=== PATIENT | male | born 1960 | race Caucasian/White ===

== ENCOUNTER 2023-04-06 09:54 | Outpatient (REF) | payer MEDICAID, SELFPAY ==
[2023-04-06 11:33] LABS: Basophils Percent Auto 0.4 % (0-2); Eosinophils Percent Auto 1.7 % (0-4); Hematocrit 39.5 % (42.0-52.0); Hemoglobin 12.3 g/dl (14.0-18.0); Lymphocytes Absolute Auto 0.9 X10*3/uL (1.2-4.9); Lymphocytes Percent Auto 37.9 % (20-40); MANUAL DIFF FLAG SCAN; Mean Corpuscular HGB Conc 31.1 g/dl (31.0-36.0); Mean Corpuscular Hemoglobin 26.5 pg (27.0-33.0); Mean Corpuscular Volume 85.1 fL (80.0-98.0); Monocytes Absolute Auto 0.2 X10*3/uL (0.1-1.2); Monocytes Percent Auto 8.9 % (2-11); Neutrophils Absolute Auto 1.2 x10*3/uL (2.0-8.3); Neutrophils Percent Auto 51.1 % (45-73); Red Blood Count 4.64 X10*6/uL (4.60-5.80); Red Cell Distribution Width 15.9 % (11.0-16.0); SCAN SMEAR FLAG 1
[2023-04-06 11:34] LABS: Estimated Average Glucose 105 mg/dL; Hemoglobin A1c % 5.3 %; Platelet Count 30 X10*3/uL (160-400); White Blood Count 2.4 X10*3/uL (4.8-10.8)
[2023-04-06 11:56] LABS: Appearance Urine Clear; Color Urine Dark Yellow; Glucose Urine UA Negative (Negative); Leukocyte Esterase Urine Negative (Negative); Nitrite Urine Negative (Negative); Specific Gravity - Urine 1.025 (1.005-1.025); Urine Blood Negative (Negative); Urine Ketones Negative (Negative); Urine Protein Negative (Neg-Trace)
[2023-04-06 12:00] LABS: Bacteria Urine None Seen (None Seen); Hyaline Casts Urine 0-2 /LPF (0-2); RBC Urine 0-2 /HPF (0-2); Squamous Epithelial Cell Urine 0-2 /HPF (0-2); WBC Urine 0-5 /HPF (0-5)
[2023-04-06 12:00] LABS: SLIDE REVIEW VERIFIED
[2023-04-06 12:18] LABS: Alanine Aminotransferase 42 U/L (0-40); Albumin Level 3.4 g/dL (3.5-5.0); Alkaline Phosphatase 122 U/L (39-117); Anion Gap 17 (12-20); Aspartate Amino Transferase 53 U/L (5-37); Bilirubin Direct 0.6 mg/dL (0.0-0.5); Bilirubin Total 1.2 mg/dL (0.0-1.0); Blood Urea Nitrogen 12 mg/dL (9-16); Calcium 9.2 mg/dL (8.4-10.2); Carbon Dioxide 22 mmol/L (22-29); Chloride 109 mmol/L (96-108); Cholesterol 79 mg/dL; Estimated Glomerular Filt Rate > 60; Glucose Random 78 mg/dL (60-115); HDL Cholesterol 25 mg/dL; LDL Cholesterol Calculated 36 mg/dl; Potassium 5.2 mmol/L (3.3-5.1); Sodium 143 mmol/L (135-145); Total Protein 7.4 g/dL (6.5-8.0); Triglycerides 94 mg/dL
[2023-04-06 12:26] LABS: Prostate Specific Antigen 0.87 ng/mL (<0.05-4.0)
[2023-04-07 20:14] LABS: HCV Log PCR 5.33 Log IU/mL (NOT DETECTED); HepC Viral Load 212000 IU/mL (NOT DETECTED)
[2023-04-09 04:04] LABS: HBS Num1 8.77 mIU/mL (0-7.99)
[2023-04-09 04:50] LABS: HBS Num2 8.68 mIU/mL (0-7.99); HBS Num3 8.56 mIU/mL (0-7.99); HBc Num2 6.69 S/CO; HBc Num3 6.29 S/CO; Hepatitis B Core Antibody Reactive (Nonreactive); ~Hepatitis B Surface Antibody GRAYZONE (Nonreactive)
[2023-04-12 01:04] LABS: Hepatitis B Core Antibody IgM NON-REACTIVE (NON-REACTIVE)
== END 2023-04-06 09:55 | disposition home or self-care (01) ==
LOC: HO.HHCL 09:54
PROVIDERS: Visit Provider Nurse Practitioner Primary Care
DX: Z00.00 Encounter for general adult medical examination without abnormal findings (principal); Z12.5 Encounter for screening for malignant neoplasm of prostate; R32 Unspecified urinary incontinence; I10 Essential (primary) hypertension; B19.20 Unspecified viral hepatitis C without hepatic coma; Z13.1 Encounter for screening for diabetes mellitus
CPT/HCPCS: 36415; 80048; 80061; 80076; 81001; 83036; 84153; 85025; 86704; 86705; 86706; 87522

== ENCOUNTER 2023-04-13 13:00 | Outpatient (REF) | payer MEDICAID, SELFPAY ==
--- NOTE | ~2023-04-13 | US_ITS ---
EXAMINATION: US ABDOMEN COMPLETE CLINICAL INFORMATION: Thrombocytopenia. COMPARISON: None available. TECHNIQUE: Real-time imaging of the abdominal viscera. Technically limited study secondary to bowel gas. FINDINGS: PANCREAS: Pancreas largely destroyed by overlying bowel gas. ABDOMINAL AORTA: Utilized portions of the aorta are unremarkable, the midportion is not well visualized. INFERIOR VENA CAVA: Visualized portions are normal. LIVER: Normal. The liver is normal in size. The liver contour is normal. Parenchymal echogenicity is normal. No focal hepatic lesion. There is no intrahepatic biliary duct dilatation seen. GALLBLADDER: Nonspecific region of borderline focal wall thickening along the anterior aspect of the gallbladder wall measuring up to 4 mm. The gallbladder is physiologically distended without evidence of stones, sludge, polyps, or pericholecystic fluid. Sonographic Kellogg sign is negative. COMMON BILE DUCT: Normal in caliber measuring 0.4 cm in diameter. RIGHT KIDNEY: Simple appearing cystic focus in the right renal upper pole measuring up to 1.6 cm, which does not require follow-up. No hydronephrosis or renal calculi. The kidney measures 10.8 cm in maximum dimension. LEFT KIDNEY: Normal. No hydronephrosis. No renal calculi or focal parenchymal lesions. The kidney measures 12.0 cm in maximum dimension. SPLEEN: Enlarged The spleen measures 22.4 cm in maximum dimension. FREE FLUID: None. US/US abdomen complete IMPRESSION: 1. Nonspecific region of borderline focal wall thickening along the anterior aspect of the gallbladder wall measuring up to 4 mm. 2. Simple appearing cystic focus in the right renal upper pole measuring up to 1.6 cm, which does not require follow-up. 3. Enlarged spleen measuring up to 22.4 cm.
== END 2023-04-13 13:01 | disposition home or self-care (01) ==
LOC: HO.US 13:00
PROVIDERS: Visit Provider Nurse Practitioner Primary Care
DX: D69.6 Thrombocytopenia, unspecified (principal)
CPT/HCPCS: 76700

== ENCOUNTER → 2023-04-23 11:32 | Outpatient (BNV) | payer MEDICAID, SELFPAY | PROVIDERS: Referring Provider Nurse Practitioner Primary Care; Visit Provider Internal Medicine Medical Oncology | DX: D61.818 Other pancytopenia (principal) | CPT/HCPCS: 99204; 99213 ==

== ENCOUNTER 2023-05-28 10:11 | Outpatient (REF) | payer MEDICAID, SELFPAY ==
[2023-05-28 12:25] LABS: Iron 54 mcg/dL (45-160); Percent Iron Saturation 15 % (15-50); Total Iron Binding Capacity 363 mcg/dL (228-428); Unsaturated Iron Binding 309 ug/dL
[2023-05-28 12:47] LABS: Ferritin 17 ng/mL (20-250); TSH reflex Free T4 2.07 uIU/mL (0.32-4.0)
[2023-05-28 13:24] LABS: Folate 12.4 ng/mL (> or = 4.0); Vitamin B12 502 pg/mL (200-900)
[2023-05-28 14:36] LABS: Creatinine Urine 123.12 mg/dL; Microalbumin Urine < 5.0 mg/L
[2023-05-28 15:21] LABS: CT PCR NOT DETECTED (Not Detect.); NG PCR NOT DETECTED (Not Detect.)
[2023-05-29 04:46] LABS: Syphilis Screen Nonreactive (Nonreactive)
[2023-05-29 05:12] LABS: HBS Num1 3.48 mIU/mL (0-7.99); HBsAGNum1 0.42 S/CO (0.00-0.99); Hepatitis B Surface Antigen Negative (Negative); ~Hepatitis B Surface Antibody NONREACTIVE (Nonreactive)
[2023-05-29 05:14] LABS: Hepatitis A Antibody IgG REACTIVE (Nonreactive); ~Hepatitis A Antibody IgG 8.48 S/CO (0.00-0.99)
[2023-05-30 16:29] LABS: TS Negative Control Passed; TS Panel A 0; TS Panel B 0; TS Positive Control Passed; TSpotTB Negative (Negative)
[2023-06-01 14:09] LABS: Hepatitis C Genotype 1a
[2023-06-02 11:52] LABS: VITAMIN D (1,25 OH) D3 54 pg/mL; Vit D (1,25-Dihydroxy) Total 54 pg/mL (18-72); Vitamin D (1,25 OH) D2 <8 pg/mL
[2023-06-02 16:19] LABS: FIB-ALT 31 U/L (9-46); FIB-Alpha-2-Macroglobulin 255 mg/dL (106-279); FIB-Apolipoprotein A1 123 mg/dL (94-176); FIB-GGT 104 U/L (3-70); FIB-Haptoglobin 56 mg/dL (43-212); FIB-Total Bilirubin 0.6 mg/dL (0.2-1.2); Liver Fibrosis Score 0.73; Liver Fibrosis Stage F3-F4; Nec Inflam Act Grade A0-A1; Nec Inflam Act Score 0.26
== END 2023-05-28 10:12 | disposition home or self-care (01) ==
LOC: HO.HHCL 10:11
PROVIDERS: Visit Provider Student in an Organized Health Care Education/Training Program
DX: Z00.00 Encounter for general adult medical examination without abnormal findings (principal); Z11.1 Encounter for screening for respiratory tuberculosis
CPT/HCPCS: 0353U; 81596; 82043; 82570; 82607; 82652; 82728; 82746; 83540; 84443; 86481; 86706; 86708; 86780; 87340; 87902

== ENCOUNTER 2023-06-04 14:07 | Outpatient (AMB) | payer MEDICAID, SELFPAY ==
[2023-06-04 14:24] VITALS: BP 147/64; PULSE 75; BMI 33.6
--- NOTE | 2023-06-04 14:24 | A.OFFVIS_ITS ---
Intake Vital Signs 06/04/23 14:24 Height 5 ft 11 in Weight 240 lb 11.916 oz BMI 33.6 BP 147/64 H Blood Pressure Location Lt brachial Position Sitting Pulse 75 Intake Visit Reasons: Hep C Intake Note: Patient presents to in office visit today as a new patient for Hep C. CC: Patient c/o RUQ abdominal pain. Patient reports an episode of heamatemesis earlier this year after taking a Motrin. Patient reports he moved about 4 months ago from [place]. Denies other GI symptoms. 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 Seen with translator and interpreter. Pt was being seen by Teresita for pancytopenia and work up revealed chronic liver disease secondary to chronic HCV genotype 1a with occult HBV and HIV negative status. He has also undergone US Abd which does not show any focal masses. Interestingly reported as normal liver despite fibrosure with F3-4 fibrosis, thrombocytopenia and splenomegaly. Pt does not report any IVDU but does report years of unprotected sexual intercourse > 15 years ago in [place]. No fam hx of liver disease. Also noted on labs is iron deficiency anemia with ferritin of 17. Pt reports having a colonoscopy 4 months ago at [facility] in [place]. Was told it was normal but does not recall the recall interval. US Abd 04/2023: 1. Nonspecific region of borderline foc al wall thickening along the anterior aspect of the gallbladder wall measuring up to 4 mm. 2. Simple appearing cystic focus in the right renal upper pole measuring up to 1.6 cm, which does not require follow-up. 3. Enlarged spleen measuring up to 22.4 cm. [facility] Medical History HBP (high blood pressure) Surgical History H/O left inguinal hernia repair H/O eye surgery History of esophagogastroduodenoscopy (EGD) H/O colonoscopy Family History Maternal Grandmother Breast CA Uterus cancer Mother Primary lung cancer of unknown cell type Social History Household Members: Family Housing: Apartment Patient Tobacco Use Status: Former Tobacco user Tobacco use type: Cigarette service: No Current occupational status: retired Review of Systems Const All systems reviewed & are unremarkable except as noted in HPI and below Physical Exam Vital Signs: Last Vital Signs Pulse 75 06/04/23 14:24 BP 147/64 H 06/04/23 14:24 BMI result Body Mass Index 33.6 Gen appear: NAD HEENT: nonicteric, no cervical lymphadenopathy Chest: CTA CVS: Regular S1/S2 Abd: soft, nontender, nondistended, bowel sounds + Ext: no peripheral edema Neuro: A/Ox3, noted to move all extremities spontaneously Psych: interacting appropriately Assessment & Plan Assessment & Plan (1) Hepatitis C virus infection: Code(s): B19.20 - Unspecified viral hepatitis C without hepatic coma (2) Hepatitis B core antibody positive: Code(s): R76.8 - Other specified abnormal immunological findings in serum (3) Thickening of wall of gallbladder: Code(s): K82.8 - Other specified diseases of gallbladder (4) Cirrhosis: Code(s): K74.60 - Unspecified cirrhosis of liver (5) Iron deficiency anemia: Code(s): D50.9 - Iron deficiency anemia, unspecified Plan 1. Chronic HCV genotype 1a Treatment naiive HBV core Ab pos, HBV surface Ag negative Appears to have cirrhosis 2/2 chronic HCV with high likelihood of CSPH based on thrombocytopenia and splenomegaly. Will need treatment with mavyret x8w vs epclusa x12w vs harvoni x 12w. He will need close monitoring of LFTs on this due to HBV core Ab + status. This will be initiated after he has had an upper endoscopy for variceal surveillance 2. ANIRUDH Noted on labs. Will obtain colo records from [facility] to ascertain that it was a complete adequately prepped colo. If needs to be repeated, will perform it at the same time as EGD (see above). 3. Focal GB thickening Incidental finding on US done for HCV. Pt without any s/sx of biliary colic. LFTs are abnormal but has chronic HCV. Ddx include GB ca vs adenomyomatosis. Will get contrasted CT Abd/pel to investigate this further. Follow up after procedures. Orders: Orders CT abdomen pelvis w IV con Today K82.8 - Other specified diseases of gallbladder Coding Level of Care Code New Pt Level 4 (80178) Diagnoses Hepatitis C virus infection B19.20 Hepatitis B core antibody positive R76.8 Thickening of wall of gallbladder K82.8 Cirrhosis K74.60 Iron deficiency anemia D50.9
== END 2023-06-04 15:09 | disposition home or self-care (01) ==
PROVIDERS: Visit Provider Internal Medicine
DX: B19.20 Unspecified viral hepatitis C without hepatic coma (principal); R76.8 Other specified abnormal immunological findings in serum; K82.8 Other specified diseases of gallbladder; K74.60 Unspecified cirrhosis of liver; D50.9 Iron deficiency anemia, unspecified
CPT/HCPCS: 99204

== ENCOUNTER → 2023-06-04 14:07 | Outpatient (BNVA) | payer MEDICAID, SELFPAY | PROVIDERS: Visit Provider Internal Medicine ==

== ENCOUNTER 2023-07-19 11:10 | Outpatient (REF) | payer MEDICAID, SELFPAY ==
--- NOTE | ~2023-07-19 | CT_ITS ---
EXAMINATION: CT ABDOMEN AND PELVIS WITH CONTRAST CLINICAL INFORMATION: Gallbladder disease COMPARISON: None available. TECHNIQUE: Multidetector volumetric images were obtained from the superior aspect of the liver through the pubic symphysis following administration 85 mL of Omnipaque 350 intravenous contrast. Sagittal and coronal reformatted images were obtained on the technologist's workstation. Oral contrast: No This CT examination was performed using dose optimization techniques as appropriate, variously including the following: *Automated exposure control *Adjustment of mA and/or kV according to patient size (this includes techniques or standardized protocols for targeted exams where dose is matched to indication/reason for exam; i.e. extremities or head) *Use of iterative reconstruction technique DLP: 588 mGy-cm FINDINGS: LUNG BASES: The visualized lung bases are unremarkable. LIVER, GALLBLADDER, AND BILIARY TREE: The liver is small, nodular in contour with prominence of the left and caudate lobes indicating cirrhosis. The portal vein is prominent. There are also prominent collateral vessels about the distal esophagus, indicating varices. There is a recanalized paraumbilical vein. The gallbladder is unremarkable with no evidence of radiopaque gallstones, gallbladder wall thickening, or obvious pericholecystic inflammatory changes. PANCREAS: Unremarkable. SPLEEN: The spleen is considerably enlarged measuring 21 cm long x 17 cm AP. ADRENAL GLANDS: Unremarkable. KIDNEYS AND URETERS: There are several small bilateral low density renal lesions, perhaps cysts, though too small to characterize. No specific follow-up is needed. There are no renal calculi. No obstructive uropathy is evident. BLADDER: Unremarkable. GASTROINTESTINAL TRACT: Considerable sigmoid diverticulosis is present without diverticulitis. The small bowel is unremarkable. The appendix images normally. The distal esophagus and esophagogastric junction are thickened. ABDOMINAL WALL: No significant hernia LYMPH NODES: Mild upper abdominal adenopathy is evident. In the gastrohepatic ligament, a 17 x 11 mm node is evident. There is an adjacent round 14 mm peripancreatic node. There is also mild retroperitoneal infiltration, nonspecific. No pelvic sidewall adenopathy is evident. VASCULAR: Unremarkable. PELVIC VISCERA: Unremarkable. OSSEOUS STRUCTURES: Degenerative changes at L5-S1. No suspicious bone lesions. CT/CT abdomen pelvis w IV con IMPRESSION: 1. Nodular somewhat shrunken liver, with prominence of the left and caudate lobes consistent with cirrhosis. 2. Marked Splenomegaly, prominence of the portal vein, recanalized paraumbilical vein, and esophageal varices are consistent with portal hypertension. 3. Thickened esophagogastric junction. Correlation with direct visualization is advised. Esophagitis and neoplasm are within the differential diagnosis. 4. Mild nonspecific upper abdominal adenopathy. 5. Sigmoid diverticulosis without diverticulitis. Fleischner guidelines were followed.
[2023-07-19] MEDS: iohexoL 350 MG/ML 100 ML INFUS..BTL IV (11:51)
[2023-07-20 08:00] LABS: Creatinine POC 0.7 mg/dL (0.5-1.4); GFR POC > 60
== END 2023-07-19 11:11 | disposition home or self-care (01) ==
LOC: HO.CT 11:10
PROVIDERS: PCP Student in an Organized Health Care Education/Training Program; Visit Provider Internal Medicine
DX: K82.8 Other specified diseases of gallbladder (principal)
CPT/HCPCS: 74177; 82565; Q9967

== ENCOUNTER 2023-08-09 16:01 | Outpatient (REF) | payer MEDICAID, SELFPAY ==
--- NOTE | 2023-08-09 17:04 | PFT_ITS ---
Otherwise indication: Dyspnea Spirometry [FEV1 to FVC and 5%; FEV1 3.45 L 100% predicted; FVC 4.07 L or 100% predicted. A significant response to bronchodilators noted maximum voluntary ventilation 71% predicted] Lung Volumes [Total lung capacity 79% predicted with an expiratory reserve volume of 34% predicted] Diffusion Capacity [Diffusing capacity 57% predicted does correct to 115% predicted when corrected for the alveolar volume] Comparisons [None] Interpretation [No obstructive ventilatory defect. No significant response to bronchodilators noted. Mild decrease in the maximum voluntary ventilation secondary to likely condition. Lung volumes demonstrate a mild restrictive ventilatory defect. Also carries a low expiratory reserve volume secondary to an elevated BMI. The patient does have a moderate diffusion impairment. This does correct to 115% predicted with correction for the alveolar volume suggesting that is related to hypo expansion due to an elevated BMI. Clinical correlation warranted.] MTDD
== END 2023-08-09 16:02 | disposition home or self-care (01) ==
LOC: HO.RESP 16:01
PROVIDERS: PCP Student in an Organized Health Care Education/Training Program; Visit Provider Student in an Organized Health Care Education/Training Program
DX: R06.00 Dyspnea, unspecified (principal)
CPT/HCPCS: 94010; 94727; 94729

== ENCOUNTER 2023-10-03 14:12 | Outpatient (REF) | payer MEDICAID, SELFPAY ==
[2023-10-03 15:48] LABS: Basophils Percent Auto 0.4 % (0-2); Eosinophils Percent Auto 1.3 % (0-4); Hematocrit 38.5 % (42.0-52.0); Hemoglobin 12.2 g/dl (14.0-18.0); Lymphocytes Absolute Auto 0.6 X10*3/uL (1.2-4.9); Lymphocytes Percent Auto 26.9 % (20-40); MANUAL DIFF FLAG SCAN; Mean Corpuscular HGB Conc 31.7 g/dl (31.0-36.0); Mean Corpuscular Volume 88.5 fL (80.0-98.0); Mean Platelet Volume 14.6 fL (9.4-12.4); Monocytes Absolute Auto 0.2 X10*3/uL (0.1-1.2); Neutrophils Absolute Auto 1.5 x10*3/uL (2.0-8.3); Neutrophils Percent Auto 64.4 % (45-73); Red Blood Count 4.35 X10*6/uL (4.60-5.80); SCAN SMEAR FLAG 1
[2023-10-03 15:54] LABS: Platelet Count 30 X10*3/uL (160-400); White Blood Count 2.3 X10*3/uL (4.8-10.8)
[2023-10-03 16:13] LABS: Alanine Aminotransferase 31 U/L (0-40); Albumin Level 3.4 g/dL (3.5-5.0); Alkaline Phosphatase 148 U/L (39-117); Anion Gap 11 (12-20); Aspartate Amino Transferase 42 U/L (5-37); Bilirubin Total 0.7 mg/dL (0.0-1.0); Blood Urea Nitrogen 12 mg/dL (9-16); Calcium 9.2 mg/dL (8.4-10.2); Carbon Dioxide 26 mmol/L (22-29); Chloride 109 mmol/L (96-108); Estimated Glomerular Filt Rate > 60; Glucose Random 135 mg/dL (60-115); Potassium 4.8 mmol/L (3.3-5.1); Sodium 141 mmol/L (135-145); Total Protein 7.4 g/dL (6.5-8.0)
[2023-10-03 17:16] LABS: SLIDE REVIEW VERIFIED
== END 2023-10-03 14:13 | disposition home or self-care (01) ==
LOC: HO.LAB 14:12
PROVIDERS: PCP Student in an Organized Health Care Education/Training Program; Visit Provider Internal Medicine Medical Oncology
DX: D61.818 Other pancytopenia (principal); K74.60 Unspecified cirrhosis of liver; D50.9 Iron deficiency anemia, unspecified
CPT/HCPCS: 36415; 80053; 85025

== ENCOUNTER → 2023-10-04 09:48 | Day surgery (SDC) | payer MEDICAID, SELFPAY ==
[2023-10-02 14:13] VITALS: BMI 33.5
--- NOTE | 2023-10-04 09:55 | PC.NURSE ---
dr alejandre aware of platelets results no new orders
[2023-10-04 10:15] VITALS: BMI 32.9
--- NOTE | 2023-10-04 10:26 | HO.ANESPROP2 ---
HPI - Anesthesia Eval Consult details Narrative: for upper endo, plt 31 k, no biopsy per [facility]. [facility] Active Problems Active Problems: All Active Problems (Updated 10/02/23 @ 14:13 by Bhavana Abbasi RN) Iron deficiency anemia (Acute) Cirrhosis (Acute) Hepatitis B core antibody positive (Acute) Hepatitis C virus infection (Acute) Thickening of wall of gallbladder (Acute) Pancytopenia (Acute) Past Medical History Medical History Esophageal varices Pancytopenia Iron deficiency anemia Cirrhosis Hepatitis C HBP (high blood pressure) Family History Family History Maternal Grandmother Breast CA Uterus cancer Mother Primary lung cancer of unknown cell type Family history of problems with anesthesia: No Surgical History Surgical History H/O left inguinal hernia repair H/O eye surgery History of esophagogastroduodenoscopy (EGD) H/O colonoscopy History of Problems with Anesthesia: No Social History Social History Household Members: Family Housing: Apartment Patient Tobacco Use Status: Former Tobacco user Tobacco use type: Cigarette Advance Directives: No Advance Directives Information Provided: Yes service: No Current occupational status: retired Meds Allergies Allergy/AdvReac Type Severity Reaction Status Date / Time dicyclomine [From Bentyl] Allergy Severe Unknown Verified 06/04/23 14:33 aspirin AdvReac Severe stomach Verified 06/04/23 14:32 bleeding NSAIDS (Non-Steroidal AdvReac Severe liver Verified 06/04/23 14:32 Anti-Inflamma concerns Home Medications Medication Instructions Recorded Confirmed Last Taken Type amlodipine 5 mg tablet 5 mg PO QAM 06/04/23 10/02/23 10/04/23 History Exam Height,Weight and Vital Signs: Height 5 ft 11 in Weight 108.862 kg Pertinent Lab Results Pertinent Lab Results: Laboratory Tests 10/03/23 14:25 Blood Type O Negative Antibody Screen NEGATIVE Airway Mallampati Class: II TM Dist: <=3cm Heart: rrr Lungs: cta Assessment and Plan Assessment Anesthesia Assessment: Anesthesia Plan Discussed and Chart Reviewed Final Anesthetic Review Family History of Problems with Anesthesia: No History of Problems with Anesthesia: No NPO: Yes ASA Class: III Final Preanesthetic Review: No Changes in Pt Med Stat, Meds/Allgs Chart Reviewed, Consent Obtained/Reviewed and Anes Risks/Benef Reviewed Patient Risk: High Procedure Risk: Low Anesthetic Plan Anesthetic Plan: MAC: Disposition: Standard PACU
--- NOTE | 2023-10-04 10:26 | PC.NURSE ---
ANESTHESIA AND DR BLACK AWARE OD PLATELETS RESULTS
[2023-10-04 10:31] VITALS: BP 156/50; PULSE 74; RESP 18; TEMP 36.8; O2SAT 96
--- NOTE | 2023-10-04 10:38 | PC.NURSE ---
DR WAYNE CORLEY OR NURSE PATIENT GOING TO BE CANCELED WILL SPEAK TO PATIENT
--- NOTE | 2023-10-04 10:49 | PC.NURSE ---
PT BEING CANCELLED BY DR BLACK F/U WITH PCP PT AWARE DR BLACK AND INTERTERPREOR AT [facility] FAMILY MADE AWARE
== END ==
PROVIDERS: PCP Student in an Organized Health Care Education/Training Program; Visit Provider Internal Medicine Gastroenterology
DX: K74.60 Unspecified cirrhosis of liver (principal); Z53.8 Procedure and treatment not carried out for other reasons; D69.6 Thrombocytopenia, unspecified; D50.9 Iron deficiency anemia, unspecified
CPT/HCPCS: 86850; 86900; 86901

== ENCOUNTER 2023-10-12 12:00 | Emergency (ER) | payer MEDICAID, SELFPAY ==
--- NOTE | ~2023-10-12 | XR_ITS ---
EXAMINATION: XR CHEST CLINICAL INFORMATION: Cough and shortness of breath COMPARISON: None available. TECHNIQUE: Frontal view of the chest was obtained. FINDINGS: No significant abnormality is noted involving the heart, lungs, mediastinum, bony thorax or soft tissues. XR/XR chest 1V IMPRESSION: Unremarkable examination.
--- NOTE | ~2023-10-12 | CT_ITS ---
EXAMINATION: CT ABDOMEN AND PELVIS WITH CONTRAST CLINICAL INFORMATION: 62-year-old male with abdominal pain and hematuria COMPARISON: 07/19/2023 TECHNIQUE: Multidetector volumetric images were obtained from the superior aspect of the liver through the pubic symphysis following administration 85 mL of Omnipaque 350 intravenous contrast. Sagittal and coronal reformatted images were obtained on the technologist's workstation. Oral contrast: No This CT examination was performed using dose optimization techniques as appropriate, variously including the following: *Automated exposure control *Adjustment of mA and/or kV according to patient size (this includes techniques or standardized protocols for targeted exams where dose is matched to indication/reason for exam; i.e. extremities or head) *Use of iterative reconstruction technique DLP: 797 mGy-cm FINDINGS: LUNG BASES: The visualized lung bases are unremarkable. LIVER, GALLBLADDER, AND BILIARY TREE: Liver is mildly nodular with prominence of left lobe of the liver and caudate lobe. The gallbladder is unremarkable with no evidence of radiopaque gallstones, gallbladder wall thickening, or obvious pericholecystic inflammatory changes. There is mild ascites surrounding right lobe of the liver. PANCREAS: Unremarkable. SPLEEN: There is massive splenomegaly the spleen measured 21.6 cm. There is recannulization of umbilical vein and varicosity surrounding the gastroesophageal junction. Findings consistent with portal hypertension. ADRENAL GLANDS: Unremarkable. KIDNEYS AND URETERS: There is small cortical cyst unchanged since previous study in right kidney. There is no hydroureteronephrosis or nephrolithiasis. There is small cortical cyst in the left kidney. BLADDER: Unremarkable. GASTROINTESTINAL TRACT: There are ascending colon changes of diverticulosis without diverticulitis and there is mild diffuse ascites surrounding right flank. Normal appendix present ABDOMINAL WALL: There is small umbilical hernia is umbilical vein. LYMPH NODES: Normal. VASCULAR: Aorta is not dilated. PELVIC VISCERA: Unremarkable. OSSEOUS STRUCTURES: Mild degenerative changes in lower lumbar spine and straightening of lumbar lordosis. CT/CT abdomen pelvis w IV con IMPRESSION: 1. Cirrhotic liver with portal hypertension. 2. Mild ascites. 3. Diverticulosis without diverticulitis. Fleischner guidelines were followed.
--- NOTE | 2023-10-12 12:08 | ECG_ITS ---
Test Reason : CHEST PAIN Blood Pressure : / mmHG Vent. Rate : 077 BPM Atrial Rate : 077 BPM P-R Int : 130 ms QRS Dur : 076 ms QT Int : 374 ms P-R-T Axes : 027 014 052 degrees QTc Int : 423 ms Normal sinus rhythm Normal ECG No previous ECGs available Referred By: Generic ED Physician Electronically Signed By:POP DAVIES MD
--- NOTE | 2023-10-12 12:11 | ED_ITS ---
HPI - URI/Sore Throat General Chief Complaint: Chest Pain Stated Complaint: FLU LIKE SYMPTOMS CP Time Seen by Provider: 10/12/23 12:08 Source: RN notes reviewed and old records reviewed History of Present Illness HPI Narrative: 62-year-old Danish speaking male with a past medical history of HTN, cirrhosis, hepatitis-C, pancytopenia, presenting to the ED via EMS complaining of upper respiratory symptoms including dry cough, SOB, lightheadedness, & chest discomfort x 1 month. Also reports some abdominal pain and coughing fit yesterday followed by hematemesis, described as coughing, then vomited up dark colored blood/clots. Denies brbpr or melena, nausea/vomiting, fever, dysuria/hematuria. Denies taking anticoagulation Related Data Home Medications Medication Instructions Recorded Confirmed amlodipine 5 mg tablet 5 mg PO QAM 06/04/23 10/02/23 Previous Rx's Medication Instructions Recorded benzonatate 100 mg capsule 100 mg PO TID PRN cough #14 caps 10/12/23 prednisone 20 mg tablet 40 mg (2 x 20 mg) PO DAILY 5 days 10/12/23 #10 tabs Allergies Allergy/AdvReac Type Severity Reaction Status Date / Time dicyclomine [From Bentyl] Allergy Severe Unknown Verified 06/04/23 14:33 aspirin AdvReac Severe stomach Verified 06/04/23 14:32 bleeding NSAIDS (Non-Steroidal AdvReac Severe liver Verified 06/04/23 14:32 Anti-Inflamma concerns Review of Systems 2 Review of Systems: Constitutional: No Fever, +chills, +fatigue ENT/Mouth: No Ear Pain, No Nasal Congestion, No sore throat, No Rhinorrhea, No Swallowing Difficulty Cardiovascular: +Chest Pain, + SOB Respiratory: + Cough, No Sputum, No Wheezing Gastrointestinal: No Nausea, No Vomiting, No Diarrhea, No Constipation, +Abdominal pain, + hematemesis Genitourinary: No Dysuria, No Urinary Frequency, No Hematuria, No Flank Pain Musculoskeletal: No joint pain, No Myalgias, No Joint Swelling Skin: No Skin Lesions, No rash Neuro: + Weakness, No Numbness, No Paresthesias, +lightheadedness Yes all other systems are reviewed and are negative Constitutional: Constitutional: Reports as per [facility] Past Medical History Attestation statement: The following information was validated with the patient. Source: old records reviewed Medical History Esophageal varices Pancytopenia Iron deficiency anemia Cirrhosis Hepatitis C HBP (high blood pressure) Surgical History H/O left inguinal hernia repair H/O eye surgery History of esophagogastroduodenoscopy (EGD) H/O colonoscopy Family History Family History Maternal Grandmother Breast CA Uterus cancer Mother Primary lung cancer of unknown cell type Social History Social History Household Members: Family Housing: Apartment Patient Tobacco Use Status: Current everyday Tobacco user Tobacco use type: Cigarette Smoked in Last 30 Days: Yes Advance Directives: No Advance Directives Information Provided: Yes service: No Current occupational status: retired Physical Exam 2 Vital Signs: Vital Signs: Last Vital Signs Pulse 75 10/12/23 14:16 Resp 16 10/12/23 12:12 BP 156/74 H 10/12/23 14:16 Pulse Ox 99 10/12/23 12:12 O2 Del Method Room Air 10/12/23 12:12 BMI result Body Mass Index 32.2 Const: General: cooperative, healthy appearing and no acute distress O rientation/consciousness: patient oriented x3 Limitations: no limitations HEENT: Head: Yes normal to inspection and Yes atraumatic Ears: hearing grossly normal bilaterally General nose exam: Normal external nose present Face and sinus: Yes normal facial exam Eyes: General: appearance normal, both eyes and all related structures EOM: EOMs intact bilaterally Neck: Neck: Yes normal visual inspection and Yes no meningeal signs Resp: Effort & Inspection: normal respiratory effort and no respiratory distress Auscultation: clear to auscultation bilaterally and no wheezes Cardio: Rate: regular rate Heart sounds: S1 normal heart sound present and S2 normal heart sound present GI: Inspection: Yes normal to inspection Palpation (GI): Soft to palpation, Tenderness to palpation present (GI) in the epigastrum, in the RLQ, in the RUQ and with rebound tenderness, no guarding and not rigid : General: Yes no CVA tenderness Back/Spine/Pelvis: Back: no CVA tenderness Skin: Rashes: no rashes Wounds: no wounds Neuro: General: patient oriented x3, tone normal and no meningeal signs C ranial nerves: Yes CN's II-XII intact bilaterally Gait exam (Neuro): Normal gait present Extrem: General: Yes normal to inspection and Yes no pedal edema Course Course Course Narrative: -1413--chronic pancytopenia likely from cirrhosis. H&H at patient's baseline. Labs otherwise reassuring/at patient's baseline. Troponin WNL -occult stool negative -COVID and flu negative. 1440-XR chest 1V IMPRESSION: Unremarkable examination. CT abdomen pelvis w IV con IMPRESSION: 1. Cirrhotic liver with portal hypertension. 2. Mild ascites. 3. Diverticulosis without diverticulitis. Fleischner guidelines were followed. -Orthostatic vital signs negative >patient without any episodes of nausea/vomiting or hematemesis/hemoptysis in the ED. recommended close GI follow-up, patient likely needs EGD. Results discussed with patient and family at bedside with regional ehs manager. Patient feels comfortable with discharge at this time. Discussed worrisome signs and symptoms and strict return precautions, and needed close follow-up with Gastroenterology. Discussed when to return to the emergency department. They verbalized understanding and feel safe for discharge at this time. Medications Administered Discontinued Medications Generic Name Dose Route Start Last Admin Trade Name Freq PRN Reason Stop Dose Admin Iohexol 100 ml 10/12/23 14:15 10/12/23 14:15 Iohexol 350 Mg/Ml 100 Ml Infus..Btl IV 10/12/23 14:16 85 ml ONCE ONE Administration Medical Decision Making Medical Decision Making [facility] Narrative: 62-year-old Danish speaking male with a past medical history of HTN, cirrhosis, hepatitis-C, pancytopenia, presenting to the ED via EMS complaining of upper respiratory symptoms including dry cough, SOB, lightheadedness, & chest discomfort x1 month. Also reports some abdominal pain and coughing fit yesterday followed by hematemesis x1, described as coughing, then vomited up dark colored blood/clot. On exam vital signs stable, NAD, nontoxic appearing, lungs CTA, abdomen soft with epigastric/RUQ and RLQ tenderness, no rebound or guarding. Concern for viral syndrome vs bronchitis/pneumonia. Symptoms atypical for ACS/PE. Concern for GI bleed vs colitis/diverticulitis vs variceal bleeding vs cholecystitis/lithiasis. Low suspicion for Boerhaave's. Low suspicion for SBP Plan: EKG, labs, UA, CXR, CT AP, hold stool, re-evaluate Please refer to course for remaining clinical decision making, interpretation of labs/imaging results, and discussions with consultants and/or family members. Differential Diagnosis Differential Diagnoses: The differential diagnosis associated with the presentation includes As above Admission/Observation Consideration of admission/observation: Escalation of care including admission/observation considered Lab Data MDM Lab Attestation statement: I reviewed the patient's lab results. 10/12/23 12:54 10/12/23 12:54 Labs: Lab Results 10/12/23 10/12/23 10/12/23 Range/Units 12:54 13:05 14:20 WBC 2.3 L (4.8-10.8) X10*3/uL RBC 4.41 L (4.60-5.80) X10*6/uL Hgb 12.3 L (14.0-18.0) g/dl Hct 38.1 L (42.0-52.0) % MCV 86.4 (80.0-98.0) fL MCH 27.9 (27.0-33.0) pg MCHC 32.3 (31.0-36.0) g/dl RDW 13.9 (11.0-16.0) % Plt Count 34 L (160-400) X10*3/uL MPV 12.6 H (9.4-12.4) fL Immature Gran % (Auto) 0.0 (0.0-0.4) % Neut % (Auto) 57.5 (45-73) % Lymph % (Auto) 31.3 (20-40) % [place] % (Auto) 8.2 (2-11) % Eos % (Auto) 2.6 (0-4) % Baso % (Auto) 0.4 (0-2) % Lymph # (Auto) 0.7 L (1.2-4.9) X10*3/uL [place] # (Auto) 0.2 (0.1-1.2) X10*3/uL Eos # (Auto) 0.1 (0.0-0.4) X10*3/uL Baso # (Auto) 0.0 (0.0-0.2) X10*3/uL Abs Immat Gran (auto) 0.00 (0.00-0.03) X10*3/uL Absolute Neuts (auto) 1.3 L (2.0-8.3) x10*3/uL Absolute Nucleated RBC 0.000 (0.0-0.012) X10*3/uL Nucleated RBC % (auto) 0.0 (0.0-0.2) /100WBC Smear Tech's Comments VERIFIED PT 13.0 (11.1-13.3) SEC INR 1.1 (0.9-1.1) Sodium 143 (135-145) mmol/L Potassium 4.9 (3.3-5.1) mmol/L Chloride 110 H (96-108) mmol/L Carbon Dioxide 26 (22-29) mmol/L Anion Gap 12 (12-20) BUN 12 (9-16) mg/dL Creatinine 0.77 (0.5-1.4) mg/dL Estim Creat Clear Calc 124.0 Estimated GFR > 60 Random Glucose 100 (60-115) mg/dL Calcium 8.8 (8.4-10.2) mg/dL Magnesium 2.1 (1.6-2.6) mg/dL Total Bilirubin 0.8 (0.0-1.0) mg/dL Direct Bilirubin 0.5 (0.0-0.5) mg/dL AST 47 H (5-37) U/L ALT 31 (0-40) U/L Alkaline Phosphatase 151 H (39-117) U/L Troponin I High Sens 3.8 (<3.5-35.0) ng/L B-Natriuretic Peptide 52 (<100) pg/mL Total Protein 7.2 (6.5-8.0) g/dL Albumin 3.3 L (3.5-5.0) g/dL Lipase 41 (8-78) U/L Urine Color Yellow Urine Appearance Clear Urine pH 7.0 (5.0-9.0) Ur Specific [place] 1.025 (1.005-1.025) Urine Protein Negative (Neg-Trace) mg/dL Urine Glucose (UA) Negative (Negative) mg/dL Urine Ketones Negative (Negative) mg/dL Urine Blood Negative (Negative) Urine Nitrite Negative (Negative) Ur Leukocyte Esterase Negative (Negative) Stool Occult Blood NEGATIVE (NEGATIVE) COVID-19 (FERMIN) Negative (Negative) COVID-19 Clin Com See Note Influenza Type A (JUSTIN) Negative (Negative) Influenza Type B (JUSTIN) Negative (Negative) Influenza A & B Note See Note Independent Interpretation I performed an independent interpretation of an: EKG, Plain X-Ray and CT Scan Radiology Impression Discussion of test interpretation with radiology: I have reviewed the radiologist's reading. Independent Historian Clinical information obtained from an independent historian. History obtained from or confirmed by: EMS External Record Review External record reviewed: Inpatient record, Office record, Outpatient record, Prior outpatient labs, Prior outpatient radiology, Primary care record and Outside ED record Tests considered The following testing was considered but not selected: As above Chronic Conditions Patient?s care impacted by: Hypertension and Other Discharge Plan Discharge Clinical Impression: Acute viral syndrome, Abdominal pain Patient Disposition: Home, Self-Care Instructions: Abdominal Pain (ED) Additional Instructions: Your blood work was reassuring. You tested negative for COVID and flu. Your CT scan shows your cirrhosis, no acute findings Your x-rays unremarkable He tested negative for COVID and flu It is very important that you follow-up with your doctor and Gastroenterology. If symptoms persist or worsen, you develop persistent or recurrent bloody vomiting or coughing, or blood in your stool/black stool return to the ED immediately Prednisone as a steroid which will help with your cough/suspected bronchitis due to coughing for 1 month. Tessalon Perles are for cough Tu an?lisis de peter fue tranquilizador. Isaiah negativo en la prueba de COVID y gripe. Tavarez tomograf?a computarizada muestra tavarez cirrosis, no hay hallazgos agudos Tus radiograf?as sin complicaciones Isaiah negativo a COVID y gripe Es muy importante que hagas seguimiento con tu m?dico y Gastroenterolog?a. Si los s?ntomas persisten o empeoran, presenta tos o v?mitos con peter persistentes o recurrentes, o peter en las heces/heces negras, regrese al servicio de urgencias de inmediato. Prednisona vannessa esteroide que le ayudar? con la tos/sospecha de bronquitis debida a la tos alyse 1 mes. Tessalon Katiees son para la tos Prescriptions: New prednisone 20 mg tablet 40 mg PO DAILY 5 Days Qty: 10 0RF benzonatate 100 mg capsule 100 mg PO TID PRN (Reason: cough) Qty: 14 0RF No Action amlodipine 5 mg tablet 5 mg PO QAM Referrals: [facility] [Provider Group] Leta Soto MD [Primary Care Provider] - 3 days Print Language: Danish
[2023-10-12 12:12] VITALS: BP 156/77; PULSE 77; PULSE 84; RESP 16; O2SAT 100; O2SAT 99; BMI 32.2
[2023-10-12 13:02] LABS: Basophils Percent Auto 0.4 % (0-2); Eosinophils Absolute Auto 0.1 X10*3/uL (0.0-0.4); Eosinophils Percent Auto 2.6 % (0-4); Hematocrit 38.1 % (42.0-52.0); Hemoglobin 12.3 g/dl (14.0-18.0); Lymphocytes Absolute Auto 0.7 X10*3/uL (1.2-4.9); Lymphocytes Percent Auto 31.3 % (20-40); MANUAL DIFF FLAG SCAN; Mean Corpuscular HGB Conc 32.3 g/dl (31.0-36.0); Mean Corpuscular Hemoglobin 27.9 pg (27.0-33.0); Mean Corpuscular Volume 86.4 fL (80.0-98.0); Mean Platelet Volume 12.6 fL (9.4-12.4); Monocytes Absolute Auto 0.2 X10*3/uL (0.1-1.2); Monocytes Percent Auto 8.2 % (2-11); Neutrophils Absolute Auto 1.3 x10*3/uL (2.0-8.3); Neutrophils Percent Auto 57.5 % (45-73); Platelet Count 34 X10*3/uL (160-400); Red Blood Count 4.41 X10*6/uL (4.60-5.80); Red Cell Distribution Width 13.9 % (11.0-16.0); SCAN SMEAR FLAG 1; White Blood Count 2.3 X10*3/uL (4.8-10.8)
[2023-10-12 13:05] LABS: INTERNATIONAL NORM RATIO 1.1 (0.9-1.1)
[2023-10-12 13:14] LABS: COVID-19 Test Negative (Negative); IDNOW Serial# 6674DD1D
[2023-10-12 13:16] LABS: Anion Gap 12 (12-20); Blood Urea Nitrogen 12 mg/dL (9-16); Calcium 8.8 mg/dL (8.4-10.2); Carbon Dioxide 26 mmol/L (22-29); Chloride 110 mmol/L (96-108); Estimated Glomerular Filt Rate > 60; Glucose Random 100 mg/dL (60-115); Potassium 4.9 mmol/L (3.3-5.1); Sodium 143 mmol/L (135-145)
[2023-10-12 13:17] LABS: OBS Int Ctl Valid YES; OBS1 NEGATIVE (NEGATIVE)
[2023-10-12 13:18] LABS: Alanine Aminotransferase 31 U/L (0-40); Albumin Level 3.3 g/dL (3.5-5.0); Alkaline Phosphatase 151 U/L (39-117); Aspartate Amino Transferase 47 U/L (5-37); Bilirubin Direct 0.5 mg/dL (0.0-0.5); Bilirubin Total 0.8 mg/dL (0.0-1.0); Lipase 41 U/L (8-78); Magnesium 2.1 mg/dL (1.6-2.6); Total Protein 7.2 g/dL (6.5-8.0)
[2023-10-12 13:21] LABS: B Type Natriuretic Peptide 52 pg/mL (<100)
[2023-10-12 13:24] LABS: IDNOW Serial# 152EDE1D; Influenza A Negative (Negative); Influenza B2 Negative (Negative)
[2023-10-12 13:25] LABS: Troponin-I High Sensitivity 3.8 ng/L (<3.5-35.0)
[2023-10-12 13:28] LABS: SLIDE REVIEW VERIFIED
[2023-10-12 14:14] VITALS: BP 143/62; PULSE 76
[2023-10-12 14:15] VITALS: BP 155/69; PULSE 73
[2023-10-12] MEDS: iohexoL 350 MG/ML 100 ML INFUS..BTL IV (14:15)
[2023-10-12 14:16] VITALS: BP 156/74; PULSE 75
[2023-10-12 14:33] LABS: Appearance Urine Clear; Color Urine Yellow; Glucose Urine UA Negative (Negative); Leukocyte Esterase Urine Negative (Negative); Nitrite Urine Negative (Negative); Specific Gravity - Urine 1.025 (1.005-1.025); Urine Blood Negative (Negative); Urine Ketones Negative (Negative); Urine Protein Negative (Neg-Trace)
== END 2023-10-12 16:23 | disposition home or self-care (01) ==
PROVIDERS: Physician Assistant; Emergency Provider Emergency Medicine Emergency Medical Services; PCP Student in an Organized Health Care Education/Training Program
DX: B34.9 Viral infection, unspecified (principal); R05.9 Cough, unspecified; R10.9 Unspecified abdominal pain; R06.02 Shortness of breath; R07.89 Other chest pain; Z11.52 Encounter for screening for COVID-19; Z79.899 Other long term (current) drug therapy
CPT/HCPCS: 36415; 71045; 74177; 80048; 80076; 81003; 82272; 83690; 83735; 83880; 84484; 85025; 85610; 87502; 87635; 93005; 99284; Q9967

== ENCOUNTER → 2023-10-12 12:08 | Outpatient (BNV) | payer MEDICAID, SELFPAY | PROVIDERS: Emergency Provider Emergency Medicine Emergency Medical Services; PCP Student in an Organized Health Care Education/Training Program; Visit Provider Internal Medicine Cardiovascular Disease | DX: R07.9 Chest pain, unspecified (principal) | CPT/HCPCS: 93010 ==

== ENCOUNTER 2023-11-20 11:43 | Day surgery (SDC) | payer MEDICAID, SELFPAY ==
[2023-11-16 16:19] VITALS: BMI 33.5
--- NOTE | 2023-11-19 09:10 | HO.ANESPROP2 ---
Documented by User: Nimo Corrales NP 11/19/23 14:21 HPI - Anesthesia Eval Consult details Narrative: 62yo M for Upper Endoscopy Cirrhosis with thrombocytopenia. Follows C Heme. Previously cx'd for low platelet count DOS. 11/19/23: Platelets decreased from [address] Antonio and Kayleen, RN notified of results to plan for ? preop platelets. PMFSH Active Problems Active Problems: All Active Problems (Updated 10/13/23 @ 00:00 by Background Karson) Iron deficiency anemia (Acute) Cirrhosis (Acute) Hepatitis B core antibody positive (Acute) Hepatitis C virus infection (Acute) Thickening of wall of gallbladder (Acute) Pancytopenia (Acute) Past Medical History Medical History Esophageal varices Pancytopenia Iron deficiency anemia Cirrhosis Hepatitis C HBP (high blood pressure) Family History Family History Maternal Grandmother Breast CA Uterus cancer Mother Primary lung cancer of unknown cell type Family history of problems with anesthesia: No Surgical History Surgical History H/O left inguinal hernia repair H/O eye surgery History of esophagogastroduodenoscopy (EGD) H/O colonoscopy History of Problems with Anesthesia: No Social History Social History Household Members: Family Housing: Apartment Patient Tobacco Use Status: Never used Tobacco Tobacco use type: Cigarette Use of substances other than those prescribed or required for medical reasons: No Are you DNR?: No Advance Directives: No Advance Directives Information Provided: Yes service: No Current occupational status: retired Meds Allergies Allergy/AdvReac Type Severity Reaction Status Date / Time dicyclomine [From Bentyl] Allergy Severe Unknown Verified 06/04/23 14:33 aspirin AdvReac Severe stomach Verified 06/04/23 14:32 bleeding NSAIDS (Non-Steroidal AdvReac Severe liver Verified 06/04/23 14:32 Anti-Inflamma concerns Home Medications Medication Instructions Recorded Confirmed Last Taken Type amlodipine 5 mg tablet 5 mg PO QAM 06/04/23 11/20/23 10/04/23 History Exam Height,Weight and Vital Signs: Height 5 ft 11 in Weight 108.862 kg Pertinent Lab Results Pertinent Lab Results: Laboratory Tests 10/12/23 12:54 Sodium 143 Potassium 4.9 Chloride 110 H Carbon Dioxide 26 BUN 12 Creatinine 0.77 Laboratory Tests 10/12/23 12:54 PT 13.0 INR 1.1 Calcium 8.8 Magnesium 2.1 Total Bilirubin 0.8 Direct Bilirubin 0.5 AST 47 H ALT 31 Alkaline Phosphatase 151 H Total Protein 7.2 Albumin 3.3 L Narrative Narrative: CT abdomen pelvis w IV con 10/2023 IMPRESSION: 1. Cirrhotic liver with portal hypertension. 2. Mild ascites. 3. Diverticulosis without diverticulitis. EKG 10/2023 Vent. Rate : 077 BPM Atrial Rate : 077 BPM P-R Int : 130 ms QRS Dur : 076 ms QT Int : 374 ms P-R-T Axes : 027 014 052 degrees QTc Int : 423 ms Normal sinus rhythm Normal ECG No previous ECGs available Assessment and Plan Assessment Anesthesia Assessment: Chart Reviewed Final Anesthetic Review Family History of Problems with Anesthesia: No History of Problems with Anesthesia: No Documented by User: Manny Shields MD 11/20/23 15:30 PMFSH Past Medical History Medical History Esophageal varices Pancytopenia Iron deficiency anemia Cirrhosis Hepatitis C HBP (high blood pressure) Family History Family History Maternal Grandmother Breast CA Uterus cancer Mother Primary lung cancer of unknown cell type Surgical History Surgical History H/O left inguinal hernia repair H/O eye surgery History of esophagogastroduodenoscopy (EGD) H/O colonoscopy Social History Social History Household Members: Family Housing: Apartment Patient Tobacco Use Status: Never used Tobacco Tobacco use type: Cigarette Use of substances other than those prescribed or required for medical reasons: No Are you DNR?: No Advance Directives: No Advance Directives Information Provided: Yes service: No Current occupational status: retired Meds Allergies Allergy/AdvReac Type Severity Reaction Status Date / Time dicyclomine [From Bentyl] Allergy Severe Unknown Verified 06/04/23 14:33 aspirin AdvReac Severe stomach Verified 06/04/23 14:32 bleeding NSAIDS (Non-Steroidal AdvReac Severe liver Verified 06/04/23 14:32 Anti-Inflamma concerns Home Medications Medication Instructions Recorded Confirmed Last Taken Type amlodipine 5 mg tablet 5 mg PO QAM 06/04/23 11/20/23 10/04/23 History Exam Airway Mallampati Class: II TM Dist: >3cm Neck ROM: Full Loose/Missing/Broken Teeth: Yes and Upper (B) Heart: ok Lungs: ok Assessment and Plan Assessment Anesthesia Assessment: Anesthesia Plan Discussed Final Anesthetic Review NPO: Yes ASA Class: III Final Preanesthetic Review: No Changes in Pt Med Stat, Meds/Allgs Chart Reviewed, Consent Obtained/Reviewed and Anes Risks/Benef Reviewed Patient Risk: Intermediate Procedure Risk: Intermediate Anesthetic Plan Anesthetic Plan: Agree w/ Assess. and Plan and TIVA Disposition: Standard PACU
[2023-11-19 14:11] LABS: Hemoglobin 12.7 g/dl (14.0-18.0); Mean Corpuscular HGB Conc 32.6 g/dl (31.0-36.0); Mean Corpuscular Volume 85.9 fL (80.0-98.0); Mean Platelet Volume 12.8 fL (9.4-12.4); Platelet Count 31 X10*3/uL (160-400); Red Blood Count 4.54 X10*6/uL (4.60-5.80); Red Cell Distribution Width 14.3 % (11.0-16.0); White Blood Count 2.7 X10*3/uL (4.8-10.8)
[2023-11-20] VITALS (8 sets, daily range): BP systolic 113–161; BP diastolic 53–82; PULSE 61–87; RESP 18; TEMP 36–36.9; O2SAT 96–100; BMI 37.9; BMI 31.2
[2023-11-20] MEDS: Lactated Ringers 1,000 ML 100 ML IVCONT (13:23)
--- NOTE | 2023-11-20 14:45 | MHC.SHP ---
Pre-Procedural Eval Section A - 24 Hr Update-Section A only Date of Service: 11/20/23 Section B - Complete if H&P > 30 days Chief Complaint: Cirrhosis, anemia Details of Present Illness: PMH: HCV high blood pressure Cirrhosis Surgical History H/O left inguinal hernia repair H/O eye surgery History of esophagogastroduodenoscopy (EGD) H/O colonoscopy Present Medications: see Short Stay Collaborative assessment Allergies: Allergies Allergy/AdvReac Type Severity Reaction Status Date / Time dicyclomine [From Bentyl] Allergy Severe Unknown Verified 06/04/23 14:33 aspirin AdvReac Severe stomach Verified 06/04/23 14:32 bleeding NSAIDS (Non-Steroidal AdvReac Severe liver Verified 06/04/23 14:32 Anti-Inflamma concerns Review of Systems Review of Systems Comment: 10 point ROS negative Exam Surgical H&P Exam: Normal: HEENT, Normal: Heart, Normal: Lungs, Normal: Extremities, Normal: Abdomen, Normal: Skin and Normal: Neurological Plan Diagnosis/Plan: Unchanged I have reviewed the history and physical and performed a pertinent physical examination on my patient. No changes have occurred unless specified. Many thanks to Dr Castro for arranging osei-procedure platelets for this gent. Time Spent With Patient Time: Total time managing care of this patient today ____ minutes.
--- NOTE | 2023-11-20 15:30 | PC.NURSE ---
Second preop transfusion started using TAR but did not save in computer system. Transfusion documentation completed on paper. Giancarlo from blood bank notified. Transfusion paperwork faxed down per request.
--- NOTE | 2023-11-20 16:03 | P.OP_ITS ---
Operative Note Operative Note Date of Service: 11/20/23 Narrative: Procedure: Esophagogastroduodenoscopy Endoscopist: Yajaira Antonio MD Indication: Cirrhosis, variceal screening Anesthesia Provider: Dr Manny Shields Anesthesia Type: MAC EGD Procedure:?? The procedure, indications, preparation and potential complications were reviewed with the patient, who indicated understanding and gave written informed consent to proceed. A physical exam was performed. The endoscope was introduced through the mouth, and advanced to the second part of duodenum. The mucosa was carefully examined on slow withdrawal of the endoscope. The patient tolerated the procedure well. There were no immediate complications.? ? EGD Findings:? * Esophagus:? 5 columns of large varices occupying the entire lumen of the esophagus with multiple red abilio reddy were noted to extend from GE junction at 40 to 25 cm. * Stomach:?Diffuse congestion and erythema in mosaic pattern consistent with portal hypertensive gastropathy was noted in the whole stomach. Retroflexion in the cardia showed a small hiatal hernia. No fundal varices were noted. There were at least 4-5 large 1.5-2 cm polyps in the stomach with appearance consistent with hyperplastic polyps. Cold forceps biopsies were obtained for histology. A 1.5 cm nodule at 7 o clock in the antrum was noted. Cold forceps biopsies were taken. * Duodenum:? Normal mucosa was noted in the whole of the examined duodenum. Additional intervention: A Socratic multiband shooter was affixed to t he scope in the usual fashion and then advanced to the stomach. The varices were banded in a spirally ascending fashion from 39 cm to 32 cm. Total of 5 bands were applied with decompression of varices. ? EGD Impressions:? * Large varices with high risk stigmata (EVBL x 5) * Hiatal hernia * Gastric polyps (biopsy) * Antral nodule (biopsy) * Portal hypertensive gastropathy * Normal duodenum ?? Recommendations:?? * Clear liquids only today and advance to regular diet tomorrow * Can take magic mouth wash ad rachael for post banding discomfort x 2-3 days * Start omeprazole 20mg PO once daily and carafate 1g liquid PO QID for prevention of post-banding ulcers * Follow path results * Repeat EGD in 8 weeks for complete variceal obliteration
== END 2023-11-20 17:00 | disposition home or self-care (01) ==
PROVIDERS: Nurse Practitioner; PCP Student in an Organized Health Care Education/Training Program; Visit Provider Internal Medicine
PROC: 0DJ08ZZ Inspection of Upper Intestinal Tract, Via Natural or Artificial Opening Endoscopic (ICD-10-PCS; CPT 43235; principal; 2023-11-20 14:40)
DX: K31.7 Polyp of stomach and duodenum (principal); I85.10 Secondary esophageal varices without bleeding; K76.6 Portal hypertension; K31.89 Other diseases of stomach and duodenum; K44.9 Diaphragmatic hernia without obstruction or gangrene; K74.60 Unspecified cirrhosis of liver; D50.9 Iron deficiency anemia, unspecified; B19.20 Unspecified viral hepatitis C without hepatic coma; R76.8 Other specified abnormal immunological findings in serum; K82.8 Other specified diseases of gallbladder; D61.818 Other pancytopenia; I10 Essential (primary) hypertension
CPT/HCPCS: 43239; 36415; 85027; 86850; 86900; 86901; 88305; 88313; 88342; J1596; J2704; P9073

== ENCOUNTER → 2023-11-20 11:43 | Outpatient (BNV) | payer MEDICAID, SELFPAY | PROVIDERS: PCP Student in an Organized Health Care Education/Training Program; Visit Provider Internal Medicine | DX: I85.01 Esophageal varices with bleeding (principal); K31.7 Polyp of stomach and duodenum; K31.89 Other diseases of stomach and duodenum | CPT/HCPCS: 43239 ==

== ENCOUNTER 2023-11-28 11:37 | Outpatient (REF) | payer MEDICAID, SELFPAY ==
[2023-11-28 13:42] LABS: Alanine Aminotransferase 34 U/L (0-40); Albumin Level 3.6 g/dL (3.5-5.0); Alkaline Phosphatase 162 U/L (39-117); Anion Gap 11 (12-20); Aspartate Amino Transferase 48 U/L (5-37); Bilirubin Total 1.2 mg/dL (0.0-1.0); Blood Urea Nitrogen 10 mg/dL (9-16); Carbon Dioxide 26 mmol/L (22-29); Chloride 109 mmol/L (96-108); Estimated Glomerular Filt Rate > 60; Glucose Random 81 mg/dL (60-115); Potassium 5.1 mmol/L (3.3-5.1); Sodium 141 mmol/L (135-145); Total Protein 7.6 g/dL (6.5-8.0)
== END 2023-11-28 11:38 | disposition home or self-care (01) ==
LOC: HO.HHCL 11:37
PROVIDERS: Visit Provider Student in an Organized Health Care Education/Training Program
DX: I10 Essential (primary) hypertension (principal)
CPT/HCPCS: 36415; 80053

== ENCOUNTER 2023-12-03 09:28 | Outpatient (AMB) | payer MEDICAID, SELFPAY ==
--- NOTE | 2023-12-03 09:33 | MHC.OFFVIS ---
Intake Vital Signs 12/03/23 09:35 Height 5 ft 11 in Weight 224 lb 13.944 oz BMI 31.4 BP 146/67 H Blood Pressure Location Lt brachial Position Sitting Pulse 88 Intake Visit Reasons: f/u egd Intake Note: Adelso presents in the office as a follow up EGD. CC: Just here for the results Certified Court Interpreter Required: Yes Certified Court Interpreter Name: Gena [id number] Allergies dicyclomine [From Bentyl] Allergy (Severe, Verified 12/03/23 09:37) Unknown aspirin Adverse Reaction (Severe, Verified 12/03/23 09:37) stomach bleeding NSAIDS (Non-Steroidal Anti-Inflamma Adverse Reaction (Severe, Verified 12/03/23 09:37) liver concerns HPI HPI Comments History of Present Illness Details This is a 62y.o M who is here for follow up for HCV related liver disease. 06/04/23: Seen with translator interpreter. Pt was being seen by [facility] for pancytopenia and work up revealed chronic liver disease secondary to chronic HCV genotype 1a with occult HBV and HIV negative status. He has also undergone US Abd which does not show any focal masses. Interestingly reported as normal liver despite fibrosure with F3-4 fibrosis, thrombocytopenia and splenomegaly. Pt does not report any IVDU but does report years of unprotected sexual intercourse > 15 years ago in [place]. No fam hx of liver disease. Also noted on labs is iron deficiency anemia with ferritin of 17. Pt reports having a colonoscopy 4 months ago at [facility] in [place]. Was told it was normal but does not recall the recall interval. US Abd 04/2023: 1. Nonspecific region of borderline focal wall thickening along the anterior aspect of the gallbladder wall measuring up to 4 mm. 2. Simple appearing cystic focus in the right renal upper pole measuring up to 1.6 cm, which does not require follow-up. 3. Enlarged spleen measuring up to 22.4 cm. 11/20/23: Large varices with high risk stigmata (EVBL x 5) Hiatal hernia Gastric polyps (biopsy) Antral nodule (biopsy) Portal hypertensive gastropathy Normal duodenum A. Stomach, antrum nodule: Antral-type mucosa with surface hyperplastic changes, mild chronic inactive inflammation and intestinal metaplasia; negative for dysplasia; no Helicobacter organisms seen. B. Stomach, polyps: Hyperplastic mucosal polyps with background moderate chronic active inflammation; no Helicobacter organisms seen. 12/03/23: Comes in for follow up. Reports some jaw discomfort after the EGD. Also had some discomfort with swallowing initially which improved with magic mouthwash. Currently no GI complaints. EGD findings and path reviewed including findings of HP gastric poylps. [facility] Medical History Esophageal varices Pancytopenia Iron deficiency anemia Cirrhosis Hepatitis C HBP (high blood pressure) Surgical History H/O left inguinal hernia repair H/O eye surgery History of esophagogastroduodenoscopy (EGD) H/O colonoscopy Family History Maternal Grandmother Breast CA Uterus cancer Mother Primary lung cancer of unknown cell type Social History Household Members: Family Housing: Apartment Patient Tobacco Use Status: Never used Tobacco Tobacco use type: Cigarette service: No Current occupational status: retired Review of Systems Const All systems reviewed & are unremarkable except as noted in HPI and below Physical Exam Vital Signs: Last Vital Signs Pulse 88 12/03/23 09:35 BP 146/67 H 12/03/23 09:35 BMI result Body Mass Index 31.4 Gen appear: NAD HEENT: R artifical eye, nonicteric, Chest: CTA CVS: Regular S1/S2 Abd: soft, nontender, nondistended, bowel sounds + Ext: no peripheral edema Neuro: A/Ox3, noted to move all extremities spontaneously Psych: interacting appropriately Assessment & Plan Assessment & Plan (1) Hepatitis C virus infection: Code(s): B19.20 - Unspecified viral hepatitis C without hepatic coma (2) Hepatitis B core antibody positive: Code(s): R76.8 - Other specified abnormal immunological findings in serum (3) Cirrhosis: Code(s): K74.60 - Unspecified cirrhosis of liver (4) Hyperplastic adenomatous polyp of stomach: Code(s): D13.1 - Benign neoplasm of stomach Plan 1. Chronic HCV genotype 1a Treatment naiive HBV core Ab pos, HBV surface Ag negative Appears to have cirrhosis 2/2 chronic HCV with CSPH - s/p EGD with variceal banding. - Will need treatment with mavyret x8w vs epclusa x12w vs harvoni x 12w. - Med list reviewed and no anticipated interactions to either. - Pt advised that office and/or specialty pharmacy will reach out for med delivery once insurance approval acquired. - He will need close monitoring of LFTs on this due to HBV core Ab + status. LFTs to be monitored q4w. - Repeat EGD for variceal surveillance booked for Apr 2024 - Repeat US due for HCC screening, ordered today. - No evidence of ascites or HE on today's assessment 2. Hyperplastic gastric polyps No dysplasia noted. H pylori negative. - Will need complete resection of larger polyps. EGD booked for Apr 2024. - Will also benefit from mapping bx at next EGD - Pt established with [facility] (Dr Castro) will request coordination of platelet and possibly FFP transfusion before next EGD to allow for complete polypectomy Follow up in 3 months Orders: Orders US abdomen complete Today K74.60 - Unspecified cirrhosis of liver Coding Level of Care Code Est Pt Level 5 (64992) Diagnoses Hepatitis C virus infection B19.20 Hepatitis B core antibody positive R76.8 Cirrhosis K74.60 Hyperplastic adenomatous polyp of stomach D13.1
[2023-12-03 09:35] VITALS: BP 146/67; PULSE 88; BMI 31.4
== END 2023-12-03 10:44 | disposition home or self-care (01) ==
PROVIDERS: PCP Student in an Organized Health Care Education/Training Program; Visit Provider Internal Medicine
DX: B19.20 Unspecified viral hepatitis C without hepatic coma (principal); R76.8 Other specified abnormal immunological findings in serum; K74.60 Unspecified cirrhosis of liver; D13.1 Benign neoplasm of stomach
CPT/HCPCS: 99214

== ENCOUNTER → 2023-12-03 09:28 | Outpatient (BNVA) | payer MEDICAID, SELFPAY | PROVIDERS: PCP Student in an Organized Health Care Education/Training Program; Visit Provider Internal Medicine | DX: B19.20 Unspecified viral hepatitis C without hepatic coma (principal); K74.60 Unspecified cirrhosis of liver; D13.1 Benign neoplasm of stomach | CPT/HCPCS: 99212 ==

== ENCOUNTER 2023-12-11 08:26 | Outpatient (REF) | payer MEDICAID, SELFPAY ==
--- NOTE | ~2023-12-11 | US_ITS ---
EXAMINATION: US ABDOMEN COMPLETE CLINICAL INFORMATION: Unspecified cirrhosis of liver. COMPARISON: CT abdomen and pelvis 10/12/2023. Ultrasound abdomen complete 04/13/2023. TECHNIQUE: Real-time imaging of the abdominal viscera. FINDINGS: PANCREAS: Largely obscured by overlapping bowel gas. ABDOMINAL AORTA: The proximal, mid, and distal segments are normal in caliber. INFERIOR VENA CAVA: Visualized portions are normal. LIVER: The liver is normal in size, with a longitudinal span of 15.4 cm. The liver contour is normal. Parenchymal echogenicity is coarse. No focal hepatic lesion. There is no intrahepatic biliary duct dilatation seen. The main portal vein is of mildly prominent, with a caliber of 1.3 cm. GALLBLADDER: Normal. The gallbladder is physiologically distended without evidence of stones, sludge, polyps, wall thickening or pericholecystic fluid. COMMON BILE DUCT: Normal in caliber measuring 0.3 cm in diameter. RIGHT KIDNEY: At the upper pole, a 1.1 cm benign, simple cyst is seen, for which no imaging follow-up is recommended. No hydronephrosis or renal calculi. The kidney measures 10.8 cm in maximum dimension. LEFT KIDNEY: At the interpolar aspect laterally, an 8 mm benign, simple cyst is seen, for which no imaging follow-up is recommended. No hydronephrosis or renal calculi. The kidney measures 11.6 cm in maximum dimension. SPLEEN: No focal finding. The spleen measures 22.7 cm in maximum dimension. FREE FLUID: None. US/US abdomen complete IMPRESSION: 1. There is generalized increase in hepatic echotexture, consistent with fatty infiltration or hepatocellular disease. Please correlate clinically. Provided history of cirrhosis noted. No focal hepatic mass or intrahepatic biliary dilatation is seen. 2. There is splenomegaly. 3. Technically limited ultrasound examination of the pancreas.
== END 2023-12-11 08:27 | disposition home or self-care (01) ==
LOC: HO.US 08:26
PROVIDERS: PCP Student in an Organized Health Care Education/Training Program; Visit Provider Internal Medicine
DX: K74.60 Unspecified cirrhosis of liver (principal)
CPT/HCPCS: 76700

== ENCOUNTER 2024-02-13 12:33 | Outpatient (AMB) | payer MEDICAID, SELFPAY ==
--- NOTE | 2024-02-13 12:36 | MHC.OFFVIS ---
Vital Signs 02/13/24 12:38 Height 5 ft 11 in Weight 231 lb 7.766 oz BMI 32.3 BP 144/61 H Blood Pressure Location Lt brachial Position Sitting Pulse 69 Intake Visit Reasons: 3 month f.u cirrhosis Intake Note: Adelso presents in the office as a 3 month follow up for cirrhosis. CC: No concerns at this time. Dial Brusher Required: Yes Allergies dicyclomine [From Bentyl] Allergy (Severe, Verified 02/13/24 12:38) Unknown aspirin Adverse Reaction (Severe, Verified 02/13/24 12:38) stomach bleeding NSAIDS (Non-Steroidal Anti-Inflamma Adverse Reaction (Severe, Verified 02/13/24 12:38) liver concerns HPI Comments Details: This is a 62y.o M who is here for follow up for HCV related liver disease. 06/04/23: Seen with network support analyst. Pt was being seen by [facility] for pancytopenia and work up revealed chronic liver disease secondary to chronic HCV genotype 1a with occult HBV and HIV negative status. He has also undergone US Abd which does not show any focal masses. Interestingly reported as normal liver despite fibrosure with F3-4 fibrosis, thrombocytopenia and splenomegaly. Pt does not report any IVDU but does report years of unprotected sexual intercourse > 15 years ago in [place]. No fam hx of liver disease. Also noted on labs is iron deficiency anemia with ferritin of 17. Pt reports having a colonoscopy 4 months ago at [facility] in [place]. Was told it was normal but does not recall the recall interval. US Abd 04/2023: 1. Nonspecific region of borderline focal wall thickening along the anterior aspect of the gallbladder wall measuring up to 4 mm. 2. Simple appearing cystic focus in the right renal upper pole measuring up to 1.6 cm, which does not require follow-up. 3. Enlarged spleen measuring up to 22.4 cm. 11/20/23: Large varices with high risk stigmata (EVBL x 5) Hiatal hernia Gastric polyps (biopsy) Antral nodule (biopsy) Portal hypertensive gastropathy Normal duodenum A. Stomach, antrum nodule: Antral-type mucosa with surface hyperplastic changes, mild chronic inactive inflammation and intestinal metaplasia; negative for dysplasia; no Helicobacter organisms seen. B. Stomach, polyps: Hyperplastic mucosal polyps with background moderate chronic active inflammation; no Helicobacter organisms seen. 12/03/23: Comes in for follow up. Reports some jaw discomfort after the EGD. Also had some discomfort with swallowing initially which improved with magic mouthwash. Currently no GI complaints. EGD findings and path reviewed including findings of HP gastric poylps. 02/13/24: Started Epclusa in December. 3 more weeks left for therapy. No active GI issues. [facility] Medical History Esophageal varices Pancytopenia Iron deficiency anemia Cirrhosis Hepatitis C HBP (high blood pressure) Surgical History H/O left inguinal hernia repair H/O eye surgery History of esophagogastroduodenoscopy (EGD) H/O colonoscopy Family History Maternal Grandmother Breast CA Uterus cancer Mother Primary lung cancer of unknown cell type Social History Household Members: Family Housing: Apartment Patient Tobacco Use Status: Never used Tobacco Tobacco use type: Cigarette service: No Current occupational status: retired Review of Systems Const All systems reviewed & are unremarkable except as noted in HPI and below Physical Exam Vital Signs: Last Vital Signs Pulse 69 02/13/24 12:38 BP 144/61 H 02/13/24 12:38 BMI result Body Mass Index 32.3 No apparent distress Nonicteric Abdomen soft, nondistended Alert and oriented x3, normal gait Assessment & Plan Assessment & Plan (1) Hepatitis C virus infection: Code(s): B19.20 - Unspecified viral hepatitis C without hepatic coma Category: Medical (2) Hepatitis B core antibody positive: Code(s): R76.8 - Other specified abnormal immunological findings in serum Category: Medical (3) Cirrhosis: Code(s): K74.60 - Unspecified cirrhosis of liver Category: Medical (4) Hyperplastic adenomatous polyp of stomach: Code(s): D13.1 - Benign neoplasm of stomach Category: Medical Plan 1. Chronic HCV genotype 1a Treatment naiive HBV core Ab pos, HBV surface Ag negative Appears to have cirrhosis 2/2 chronic HCV with CSPH - s/p EGD with variceal banding. US Abd 12/2023 without any focal lesions. Started Epclusa 12/2023. Due to End 03/2024. - Check viral load and LFTs in 4 weeks - Repeat EGD for variceal surveillance booked for Apr 2024 - Repeat US due for HCC screening in Jun 2024 - reminder set. - No evidence of ascites or HE on today's assessment 2. Hyperplastic gastric polyps No dysplasia noted. H pylori negative. - Will need complete resection of larger polyps. EGD booked for Apr 2024. - Will also benefit from mapping bx at next EGD - Pt established with [facility] (Dr Castro) will request coordination of platelet and possibly FFP transfusion before next EGD to allow for complete polypectomy Follow up after EGD Orders: Orders Hepatitis C Viral Load 4 Weeks K74.60 - Unspecified cirrhosis of liver Hepatitis B Surface Antigen 16 Weeks B19.20 - Unspecified viral hepatitis C without hepatic coma, R76.8 - Other specified abnormal immunological findings in serum Liver Panel 4 Weeks K74.60 - Unspecified cirrhosis of liver Liver Panel 16 Weeks B19.20 - Unspecified viral hepatitis C without hepatic coma, R76.8 - Other specified abnormal immunological findings in serum Hepatitis C Viral Load 16 Weeks B19.20 - Unspecified viral hepatitis C without hepatic coma, R76.8 - Other specified abnormal immunological findings in serum Coding Level of Care Code Est Pt Level 3 (93434) Diagnoses Hepatitis C virus infection B19.20 Hepatitis B core antibody positive R76.8 Cirrhosis K74.60 Hyperplastic adenomatous polyp of stomach D13.1
[2024-02-13 12:38] VITALS: BP 144/61; PULSE 69; BMI 32.3
== END 2024-02-13 14:04 | disposition home or self-care (01) ==
PROVIDERS: PCP Student in an Organized Health Care Education/Training Program; Referring Provider Student in an Organized Health Care Education/Training Program; Visit Provider Internal Medicine
DX: B19.20 Unspecified viral hepatitis C without hepatic coma (principal); R76.8 Other specified abnormal immunological findings in serum; K74.60 Unspecified cirrhosis of liver; D13.1 Benign neoplasm of stomach
CPT/HCPCS: 99213

== ENCOUNTER → 2024-02-13 12:33 | Outpatient (BNVA) | payer MEDICAID, SELFPAY | PROVIDERS: PCP Student in an Organized Health Care Education/Training Program; Visit Provider Internal Medicine | DX: K74.60 Unspecified cirrhosis of liver (principal); R76.8 Other specified abnormal immunological findings in serum; B19.20 Unspecified viral hepatitis C without hepatic coma; D13.1 Benign neoplasm of stomach | CPT/HCPCS: 99212 ==

== ENCOUNTER 2024-03-12 08:12 | Outpatient (REF) | payer MEDICAID, SELFPAY ==
[2024-03-12 09:39] LABS: Alanine Aminotransferase 40 U/L (0-40); Albumin Level 3.7 g/dL (3.5-5.0); Alkaline Phosphatase 140 U/L (39-117); Aspartate Amino Transferase 49 U/L (5-37); Bilirubin Direct 0.4 mg/dL (0.0-0.5); Bilirubin Total 0.8 mg/dL (0.0-1.0); Total Protein 7.6 g/dL (6.5-8.0)
[2024-03-15 18:18] LABS: HCV Log PCR <1.18 NOT DETECTED Log IU/mL (NOT DETECTED); HepC Viral Load <15 NOT DETECTED IU/mL (NOT DETECTED)
== END 2024-03-12 08:13 | disposition home or self-care (01) ==
LOC: HO.LAB 08:12
PROVIDERS: PCP Student in an Organized Health Care Education/Training Program; Visit Provider Internal Medicine
DX: K74.60 Unspecified cirrhosis of liver (principal)
CPT/HCPCS: 36415; 80076; 87522

== ENCOUNTER 2024-03-30 11:56 | Inpatient (IN) | payer MEDICAID, SELFPAY ==
[2024-03-30] VITALS (8 sets, daily range): BP systolic 121–166; BP diastolic 46–97; PULSE 69–103; RESP 18–20; TEMP 36.9–39.1; O2SAT 98–100; BMI 25.8
--- NOTE | ~2024-03-30 | CT_ITS ---
EXAMINATION: CT ABDOMEN AND PELVIS WITHOUT CONTRAST CLINICAL INFORMATION: Abdominal pain. COMPARISON: Ultrasound of the abdomen 12/11/2023, CT of the abdomen and pelvis 10/12/2023. TECHNIQUE: Multidetector volumetric imaging was performed from the superior aspect of the liver through the pubic symphysis. Sagittal and coronal reformatted images were obtained on the technologist's workstation. This CT examination was performed using dose optimization techniques as appropriate, variously including the following: *Automated exposure control *Adjustment of mA and/or kV according to patient size (this includes techniques or standardized protocols for targeted exams where dose is matched to indication/reason for exam; i.e. extremities or head) *Use of iterative reconstruction technique DLP: 1376 mGy-cm. FINDINGS: LUNG BASES: The visualized lung bases are unremarkable. LIVER, GALLBLADDER, AND BILIARY TREE: The liver is again noted to be mildly nodular. Attenuation is not decreased. No focal hepatic lesion or biliary ductal dilatation is present. The gallbladder is unremarkable with no evidence of radiopaque gallstones, gallbladder wall thickening, or obvious pericholecystic inflammatory changes. There is no ascites. PANCREAS: Unremarkable. SPLEEN: Again seen is a massive spleen measuring over 22 cm in greatest dimension. ADRENAL GLANDS: Unremarkable. KIDNEYS AND URETERS: The kidneys are normal in size, shape, and attenuation. No hydronephrosis, hydroureter, or calculi seen. No perinephric stranding. BLADDER: Unremarkable. GASTROINTESTINAL TRACT: Mild edematous changes are seen in the fat surrounding the ascending colon, similar to prior, but slightly less marked. There are colonic diverticula present without diverticulitis. The small bowel is unremarkable. The appendix is normal. ABDOMINAL WALL: There is a tiny periumbilical hernia seen containing only fat. LYMPH NODES: Some antwon changes are again seen in the mesentery. There are shotty retroperitoneal and yolanda hepatis/peripancreatic/periceliac lymph nodes seen but no adenopathy. VASCULAR: Calcific atherosclerotic changes are present in the aorta and iliofemoral vessels. There is no evidence of an abdominal aortic aneurysm. PELVIC VISCERA: The prostate and seminal vesicles are unremarkable. OSSEOUS STRUCTURES: Degenerative changes are present in the spine, most marked at L2-L3 and L5-S1. No bony destructive lesions. CT/CT abdomen pelvis wo IV con IMPRESSION: 1. A cause for the patient's abdominal pain has not been found. 2. Again seen is a massive spleen. 3. Mild edematous changes are seen in the fat surrounding the ascending colon, similar to prior, but slightly less marked. Findings could be secondary to portal colopathy in the setting of portal hypertension. 4. Other incidental findings as described above. Fleischner guidelines were followed.
--- NOTE | ~2024-03-30 | XR_ITS ---
EXAMINATION: XR CHEST CLINICAL INFORMATION: Cough COMPARISON: 10/12/2023 TECHNIQUE: Frontal view of the chest was obtained. FINDINGS: Lungs are well expanded and clear. No pleural effusion. Cardiac silhouette is normal in size. Pulmonary vascular pattern is normal. Multiple EKG wires overlie the chest. The visualized bones are intact. XR/XR chest 1V IMPRESSION: No evidence of pneumonia. No acute cardiopulmonary findings.
--- NOTE | ~2024-03-30 | CT_ITS ---
EXAMINATION: CT HEAD WITHOUT CONTRAST CLINICAL INFORMATION: Headache COMPARISON: None available. TECHNIQUE: Contiguous axial imaging was performed from the skull base to vertex without intravenous administration of contrast. This CT examination was performed using dose optimization techniques as appropriate, variously including the following: *Automated exposure control *Adjustment of mA and/or kV according to patient size (this includes techniques or standardized protocols for targeted exams where dose is matched to indication/reason for exam; i.e. extremities or head) *Use of iterative reconstruction technique DLP: 760 mGy-cm FINDINGS: There is no evidence of acute intracranial hemorrhage or edematous territorial infarction. The beckman-white matter differentiation appears preserved. Few scattered hypoattenuating foci in the periventricular white matter likely representing mild chronic microangiopathy. The ventricles and cortical sulci are proportional without significant volume loss. No mass effect or midline shift. No acute extra-axial collection. Dense dural calcifications along the anterior falx. Right globe prosthesis. No acute osseous or soft tissue abnormality. Mild scattered paranasal sinus mucosal thickening. The mastoids are well-aerated. CT/CT head/brain wo IV con IMPRESSION: No acute intracranial pathology.
--- NOTE | 2024-03-30 12:05 | ECG_ITS ---
Test Reason : CHEST PAIN Blood Pressure : / mmHG Vent. Rate : 081 BPM Atrial Rate : 081 BPM P-R Int : 128 ms QRS Dur : 084 ms QT Int : 358 ms P-R-T Axes : 023 015 047 degrees QTc Int : 415 ms Sinus rhythm with Premature atrial complexes Otherwise normal ECG When compared with ECG of 12-OCT-2023 12:14, Premature atrial complexes are now Present Referred By: Jorge Wang Electronically Signed By:ЕКАТЕРИНА ZARAGOZA
--- NOTE | 2024-03-30 12:06 | ED_ITS ---
HPI - Nausea/Vomiting/Diarrhea General Chief complaint: Nausea/Vomiting/Diarrhea Stated complaint: NAUSEA VOMITING Time Seen by Provider: 03/30/24 12:03 Source: patient Mode of arrival: EMS History of Present Illness HPI Narrative: This is a 63 years old male with history of cirrhosis of the liver pancytopenia presented to the emergency department complaining of nausea vomiting unable to keep anything down playing of body aches as well for about 3 days MD elicited complaint: nausea and vomiting Onset (ago): day(s) (3) Description of vomiting: watery Associated nausea: Yes Associated abdominal pain: Yes Location of pain: diffuse Radiation: diffuse Quality: cramping Exacerbating factors: none Relieving factors: none Related Data Home Medications ?Medication ?Instructions ?Recorded ?Confirmed amlodipine 10 mg tablet 10 mg PO QAM 12/03/23 12/11/23 ascorbic acid (vitamin C) 250 mg 250 mg PO QAM 12/03/23 12/11/23 tablet ferrous sulfate 325 mg (65 mg 325 mg PO QA 12/03/23 12/11/23 iron) tablet furosemide 20 mg tablet 20 mg PO QAM 12/03/23 12/11/23 nadolol 40 mg tablet 40 mg PO QAM 02/13/24 psyllium husk (aspartame) 3 ea PO BID 02/13/24 gram/5.8 gram oral powder (Reguloid (aspartame)) Previous Rx's ?Medication ?Instructions ?Recorded benzonatate 100 mg capsule 100 mg PO TID PRN cough #14 caps 10/12/23 Magic Mouthwash 10 ml PO QID PRN painful 11/20/23 Diphen/Lido/Antacid 1:1:1 240 mL swallowing 3 days #240 mL suspension omeprazole 20 mg capsule,delayed 20 mg PO DAILY #30 caps 11/20/23 release sucralfate 100 mg/mL oral 10 ml PO QID 14 days #560 mL 11/20/23 suspension sofosbuvir 400 mg-velpatasvir 100 1 tab PO DAILY 12 weeks #84 tabs 12/10/23 mg tablet Allergies Allergy/AdvReac Type Severity Reaction Status Date / Time aspirin AdvReac Severe stomach Verified 03/30/24 12:10 bleeding NSAIDS (Non-Steroidal AdvReac Severe liver Verified 02/13/24 12:38 Anti-Inflamma concerns Review of Systems 2 Constitutional: Constitutional: Reports no additional constitutional complaints Gastrointestinal: Gastrointestinal: Reports nausea and Reports vomiting PMFSH Past Medical History Attestation statement: The following information was validated with the patient. Medical History Esophageal varices Pancytopenia Iron deficiency anemia Cirrhosis Hepatitis C HBP (high blood pressure) Surgical History H/O left inguinal hernia repair H/O eye surgery History of esophagogastroduodenoscopy (EGD) H/O colonoscopy Family History Family History Maternal Grandmother Breast CA Uterus cancer Mother Primary lung cancer of unknown cell type Social History Social History Household Members: Family Housing: Apartment Patient Tobacco Use Status: Never used Tobacco Tobacco use type: Cigarette Smoked in Last 30 Days: No Use of substances other than those prescribed or required for medical reasons: No Advance Directives: No Advance Directives Information Provided: No service: No Current occupational status: retired Physical Exam 2 Vital Signs: Vital Signs: Last Vital Signs Temp 98.6 F 03/30/24 13:36 Pulse 74 03/30/24 13:36 Resp 18 03/30/24 13:36 BP 142/72 H 03/30/24 12:00 Pulse Ox 98 03/30/24 12:00 O2 Del Method Room Air 03/30/24 12:00 BMI result Body Mass Index 25.8 Const: General: cooperative Orientation/consciousness: patient oriented x3 HEENT: Head: Yes normal to inspection General nose exam: Normal external nose present Face and sinus: Yes normal facial exam Neck: Neck: Yes normal visual inspection and Yes full ROM Resp: Effort & Inspection: normal respiratory effort Auscultation: clear to auscultation bilaterally Cardio: Jugular venous distension: no JVD Rhythm: regular rhythm GI: Inspection: Yes normal to inspection Palpation (GI): Soft to palpation, not firm and nontender Skin: General skin exam: no rashes or lesions noted and elasticity normal L esions: no lesions Neuro: General: patient oriented x3 Course Reevaluation(s) Reevaluation #1: Clinically is doing better at this time he has no fever at this time. His lactic acid is normal, however presented with nausea vomiting chills in the setting of pancytopenia leukopenia cirrhosis of the liver also his bicarb is low, I think is very reasonable to admit the patient for observation of IV fluids. I discussed the case with the hospitalist Dr. Lyles, he requests abdomen CT I placed an order for a abdomen CT Time: 16:02 Medications Administered Discontinued Medications Generic Name Dose Route Start Last Admin Trade Name Samuel PRN Reason Stop Dose Admin Acetaminophen 975 mg 03/30/24 12:14 03/30/24 12:25 Acetaminophen 325 Mg Tablet PO 03/30/24 12:15 975 mg ONCE ONE Administration Sodium Chloride 1,000 mls @ 999 mls/hr 03/30/24 12:15 03/30/24 13:15 Ns IVCONT 03/30/24 13:15 Infused .Q1H1M LALI Infusion Metoclopramide HCl 10 mg 03/30/24 12:04 03/30/24 12:24 Metoclopramide Hcl 10 Mg/2 Ml Vial IVPUSH 03/30/24 12:05 10 mg ONCE ONE Administration Medical Decision Making Medical Decision Making [facility] Narrative: Patient presented with nausea vomiting with the get labs administer antiemetic fluid Differential Diagnosis Differential Diagnoses: The differential diagnosis associated with the presentation includes Gastroenteritis/small-bowel obstruction Admission/Observation Consideration of admission/observation: Escalation of care including admission/observation considered Consult Healthcare Provider Management of the patient was discussed with: Hospitalist Lab Data [facility] Lab Attestation statement: I reviewed the patient's lab results. 03/30/24 12:25 03/30/24 12:25 Labs: Lab Results 03/30/24 03/30/24 Range/Units 12:25 13:21 WBC 2.8 L (4.8-10.8) X10*3/uL RBC 4.60 (4.60-5.80) X10*6/uL Hgb 13.0 L (14.0-18.0) g/dl Hct 39.0 L (42.0-52.0) % MCV 84.8 (80.0-98.0) fL MCH 28.3 (27.0-33.0) pg MCHC 33.3 (31.0-36.0) g/dl RDW 14.7 (11.0-16.0) % Plt Count 24 L D (160-400) X10*3/uL MPV Not Reportable Immature Gran % (Auto) 0.4 (0.0-0.4) % Neut % (Auto) 59.5 (45-73) % Lymph % (Auto) 24.8 (20-40) % Bland % (Auto) 14.9 H (2-11) % Eos % (Auto) 0.4 (0-4) % Baso % (Auto) 0.0 (0-2) % Lymph # (Auto) 0.7 L (1.2-4.9) X10*3/uL Bland # (Auto) 0.4 (0.1-1.2) X10*3/uL Eos # (Auto) 0.0 (0.0-0.4) X10*3/uL Baso # (Auto) 0.0 (0.0-0.2) X10*3/uL Abs Immat Gran (auto) 0.01 (0.00-0.03) X10*3/uL Absolute Neuts (auto) 1.7 L (2.0-8.3) x10*3/uL Absolute Nucleated RBC 0.000 (0.0-0.012) X10*3/uL Nucleated RBC % (auto) 0.0 (0.0-0.2) /100WBC Smear Tech's Comments VERIFIED Sodium 132 L (135-145) mmol/L Potassium 3.9 (3.3-5.1) mmol/L Chloride 102 (96-108) mmol/L Carbon Dioxide 18 L (22-29) mmol/L Anion Gap 16 (12-20) BUN 13 (9-16) mg/dL Creatinine 1.09 (0.5-1.4) mg/dL Estim Creat Clear Calc 72.5 Estimated GFR > 60 Random Glucose 98 (60-115) mg/dL Lactic Acid 1.6 (0.5-2.0) mmol/L Calcium 9.1 (8.4-10.2) mg/dL Total Bilirubin 1.6 H (0.0-1.0) mg/dL AST 43 H (5-37) U/L ALT 34 (0-40) U/L Alkaline Phosphatase 109 (39-117) U/L Total Protein 7.7 (6.5-8.0) g/dL Albumin 3.6 (3.5-5.0) g/dL Urine Color Dark Yellow Urine Appearance Clear Urine pH 5.5 (5.0-9.0) Ur Specific [place] 1.025 (1.005-1.025) Urine Protein 30 (1+) H (Neg-Trace) mg/dL Urine Glucose (UA) Negative (Negative) mg/dL Urine Ketones 15 (Negative) mg/dL Urine Blood Negative (Negative) Urine Nitrite Negative (Negative) Ur Leukocyte Esterase Trace H (Negative) Urine RBC 0-2 (0-2) /HPF Urine WBC 0-5 (0-5) /HPF Ur Squamous Epith Cells 0-2 (0-2) /HPF Urine Bacteria None Seen (None Seen) Hyaline Casts 0-2 (0-2) /LPF Influenza Type A (PCR) NEGATIVE (Negative) Influenza Type B (PCR) NEGATIVE (Negative) RSV RNA Qual (PCR) NEGATIVE (Negative) SARS-CoV-2 RNA (RT-PCR) NEGATIVE (Negative) Independent Interpretation I performed an independent interpretation of an: Plain X-Ray External Record Review External record reviewed: Inpatient record Discharge Plan Discharge Clinical Impression: Metabolic acidosis, Pancytopenia, Cirrhosis Fever Qualifiers: Fever type: unspecified Qualified Code(s): R50.9 - Fever, unspecified Patient Disposition: Admitted As Inpatient Print Language: Azeri
[2024-03-30] MEDS: 0.9 % Sodium Chloride 1,000 ML 999 ML IVCONT (12:23)
[2024-03-30] MEDS: Metoclopramide HCl 10 MG/2 ML VIAL IVPUSH (12:24)
[2024-03-30] MEDS: Acetaminophen 325 MG TABLET 975 MG PO (12:25)
[2024-03-30 12:35] LABS: Imm Gran Abs Auto 0.01 X10*3/uL (0.00-0.03); Red Cell Distribution Width 14.7 % (11.0-16.0); SCAN SMEAR FLAG 1
[2024-03-30 12:37] LABS: Eosinophils Percent Auto 0.4 % (0-4); Imm Gran Pct Auto 0.4 % (0.0-0.4); Lymphocytes Absolute Auto 0.7 X10*3/uL (1.2-4.9); Lymphocytes Percent Auto 24.8 % (20-40); MANUAL DIFF FLAG SCAN; Mean Corpuscular HGB Conc 33.3 g/dl (31.0-36.0); Mean Corpuscular Hemoglobin 28.3 pg (27.0-33.0); Mean Corpuscular Volume 84.8 fL (80.0-98.0); Monocytes Absolute Auto 0.4 X10*3/uL (0.1-1.2); Monocytes Percent Auto 14.9 % (2-11); Neutrophils Absolute Auto 1.7 x10*3/uL (2.0-8.3); Neutrophils Percent Auto 59.5 % (45-73); White Blood Count 2.8 X10*3/uL (4.8-10.8)
[2024-03-30 12:38] LABS: PLT ABN DIST 1; Platelet Count 24 X10*3/uL (160-400)
[2024-03-30 12:55] LABS: Lactic Acid 1.6 mmol/L (0.5-2.0)
[2024-03-30 12:57] LABS: Alanine Aminotransferase 34 U/L (0-40); Albumin Level 3.6 g/dL (3.5-5.0); Alkaline Phosphatase 109 U/L (39-117); Anion Gap 16 (12-20); Aspartate Amino Transferase 43 U/L (5-37); Bilirubin Total 1.6 mg/dL (0.0-1.0); Blood Urea Nitrogen 13 mg/dL (9-16); Calcium 9.1 mg/dL (8.4-10.2); Carbon Dioxide 18 mmol/L (22-29); Chloride 102 mmol/L (96-108); Creatinine Clr Calc Pharmacy 72.5; Estimated Glomerular Filt Rate > 60; Glucose Random 98 mg/dL (60-115); Potassium 3.9 mmol/L (3.3-5.1); Sodium 132 mmol/L (135-145); Total Protein 7.7 g/dL (6.5-8.0)
[2024-03-30 13:06] LABS: SLIDE REVIEW VERIFIED
--- NOTE | 2024-03-30 13:17 | PC.NURSE ---
Pt from [facility] (where he is living) by ambulance. Reports multiple complaints: N/V, ABD discomfort, headache, chills, fevers, general malaise since Sunday. Reports hx of liver issues. Denies CP or SOB. Alert and oriented, breathing even and unlabored, skin hot and clammy. Rectal temp 102.3. NSR on bedside cardiac nurse.
[2024-03-30 13:18] LABS: Influenza A PCR NEGATIVE (Negative); Influenza B PCR NEGATIVE (Negative); Resp Syncy Virus RNA Qual PCR NEGATIVE (Negative); SARS COV2 PCR INHOUSE NEGATIVE (Negative)
[2024-03-30 13:35] LABS: Appearance Urine Clear; Color Urine Dark Yellow; Glucose Urine UA Negative (Negative); Leukocyte Esterase Urine Trace (Negative); Nitrite Urine Negative (Negative); PH 5.5 (5.0-9.0); Specific Gravity - Urine 1.025 (1.005-1.025); UMIC TRIGGER UACC YES; Urine Blood Negative (Negative); Urine Ketones 15 mg/dL (Negative); Urine Protein 30 (1+) mg/dL (Neg-Trace)
[2024-03-30 13:42] LABS: Bacteria Urine None Seen (None Seen); Hyaline Casts Urine 0-2 /LPF (0-2); RBC Urine 0-2 /HPF (0-2); Squamous Epithelial Cell Urine 0-2 /HPF (0-2); WBC Urine 0-5 /HPF (0-5)
[2024-03-30] MEDS: 0.9 % Sodium Chloride 1,000 ML 100 ML IVCONT (16:01)
--- NOTE | 2024-03-30 16:47 | P.HPHOSP_ITS ---
History of Present Illness Date of Service: 03/30/24 Chief Complaint: fever 63M PMH hcv cirrhosis with chornic pancytopneia, htn presented with fevers. patient is vague historian, inconsistent in reporting answers. initially chief complaint of nausea and vomiting, abd pain. now denying, complaining of dry cough, fever and chills for about 5 days. in ED, fevbrile, tachy, no clear source of infection. Review of Systems 2 Review of Systems: Yes all other systems are reviewed and are negative [facility] Medical History Esophageal varices Pancytopenia Iron deficiency anemia Cirrhosis Hepatitis C HBP (high blood pressure) Family History Maternal Grandmother Breast CA Uterus cancer Mother Primary lung cancer of unknown cell type Surgical History H/O left inguinal hernia repair H/O eye surgery History of esophagogastroduodenoscopy (EGD) H/O colonoscopy Social History Household Members: Family Housing: Apartment Patient Tobacco Use Status: Never used Tobacco Tobacco use type: Cigarette Smoked in Last 30 Days: No Use of substances other than those prescribed or required for medical reasons: No Advance Directives: No Advance Directives Information Provided: No service: No Current occupational status: retired Meds Allergies Allergy/AdvReac Type Severity Reaction Status Date / Time aspirin AdvReac Severe stomach Verified 03/30/24 12:10 bleeding NSAIDS (Non-Steroidal AdvReac Severe liver Verified 02/13/24 12:38 Anti-Inflamma concerns Active Medications: Current Medications Acetaminophen (Acetaminophen 325 Mg Tablet) 650 mg PO Q6H PRN PRN Reason: Pain, Mild (Pain Scale 1-3), fever or headache Calcium Carbonate (Calcium Carbonate 750 Mg Tab.Chew) 750 mg PO Q4H PRN PRN Reason: Heartburn Sodium Chloride (Ns) 1,000 mls @ 100 mls/hr IVCONT .Q10H [facility] Last Admin: 03/30/24 16:01 Dose: 100 mls/hr Ceftriaxone Sodium 1 gm/ (Sodium Chloride) 50 mls @ 100 mls/hr IV Q24H [facility] Magnesium Hydroxide (Milk Of Magnesia 30 Ml Oral.Susp) 30 ml PO DAILY PRN PRN Reason: Constipation Melatonin (Melatonin 3 Mg Tablet) 6 mg PO BEDTIME PRN PRN Reason: Insomnia Sodium Chloride (0.9 % Sodium Chloride Flush 3 Ml Syringe) 3 ml IVFLUSH QSHIFT [facility] Home Medications ?Medication ?Instructions ?Recorded ?Confirmed ?Last Taken ?Type amlodipine 10 mg tablet 10 mg PO QAM 12/03/23 12/11/23 Unknown History ascorbic acid (vitamin C) 250 mg 250 mg PO QAM 12/03/23 12/11/23 Unknown History tablet ferrous sulfate 325 mg (65 mg 325 mg PO QAM 12/03/23 12/11/23 Unknown History iron) tablet furosemide 20 mg tablet 20 mg PO QAM 12/03/23 12/11/23 Unknown History nadolol 40 mg tablet 40 mg PO QAM 02/13/24 Unknown History psyllium husk (aspartame) 3 ea PO BID 02/13/24 Unknown History gram/5.8 gram oral powder (Reguloid (aspartame)) Physical Exam 2 Vital Signs and Narrative: Vital Signs: Last Vital Signs Temp 98.4 F 03/30/24 16:00 Pulse 71 03/30/24 16:00 Resp 20 03/30/24 16:00 BP 121/46 L 03/30/24 16:00 Pulse Ox 99 03/30/24 16:00 O2 Del Method Room Air 03/30/24 16:00 BMI result Body Mass Index 25.8 General: AO X 3, no acute distress Resp: CTA bilateral, no accessory muscles used CVS: S1,S2,RRR GI: soft, non tender, non distended Neuro: motor grossly intact, alert Psych: appropriate affect, appropriate insight Results Labs 03/30/24 12:25 03/30/24 12:25 Labs: Laboratory Results - last 24 hr 03/30/24 03/30/24 12:25 13:21 MCV 84.8 MCH 28.3 MCHC 33.3 RDW 14.7 Plt Count 24 L D MPV Not Reportable Immature Gran % (Auto) 0.4 Neut % (Auto) 59.5 Lymph % (Auto) 24.8 [place] % (Auto) 14.9 H Eos % (Auto) 0.4 Baso % (Auto) 0.0 Lymph # (Auto) 0.7 L [place] # (Auto) 0.4 Eos # (Auto) 0.0 Baso # (Auto) 0.0 Abs Immat Gran (auto) 0.01 Absolute Neuts (auto) 1.7 L Absolute Nucleated RBC 0.000 Nucleated RBC % (auto) 0.0 Smear Tech's Comments VERIFIED Anion Gap 16 Estim Creat Clear Calc 72.5 Estimated GFR > 60 Random Glucose 98 Lactic Acid 1.6 Calcium 9.1 Total Bilirubin 1.6 H AST 43 H ALT 34 Alkaline Phosphatase 109 Total Protein 7.7 Albumin 3.6 Urine Color Dark Yellow Urine Appearance Clear Urine pH 5.5 Ur Specific [place] 1.025 Urine Protein 30 (1+) H Urine Glucose (UA) Negative Urine Ketones 15 Urine Blood Negative Urine Nitrite Negative Ur Leukocyte Esterase Trace H Urine RBC 0-2 Urine WBC 0-5 Ur Squamous Epith Cells 0-2 Urine Bacteria None Seen Hyaline Casts 0-2 Influenza Type A (PCR) NEGATIVE Influenza Type B (PCR) NEGATIVE RSV RNA Qual (PCR) NEGATIVE SARS-CoV-2 RNA (RT-PCR) NEGATIVE Imaging Radiologist's Impressions: Impressions Chest X-Ray 03/30/24 12:45 IMPRESSION: No evidence of pneumonia. No acute cardiopulmonary findings. Assessment and Plan (1) Cirrhosis: Status: Acute Plan 63M PMH hcv cirrhosis with chornic pancytopneia, htn presented with fevers sirs vs sepsis ongoing work up for source not severe (panctyopenia chronic due to cirrhosis) continue empiric rocephin to cover gi, resp, follow up cultures, CT hcv cirrhosis with chronic pancytopenia no ascites, abd soft htn amlodipine dvt prophylaxis - mechanical due to thrombocytopenia full code patient with fevers, possibly sepsis, immunocomplromised, therefore, expected to require atleast 2 midnights inpatient. Quality Stroke Does the patient have a stroke diagnosis?: No VTE Prior VTE?: No VTE Risk Level:: Medical - moderate - high VTE Device Contraindication: N/A - Device Ordered VTE Drug Contraindication: Treatment Not Tolerated
--- NOTE | 2024-03-30 17:04 | PHA.MEDREC ---
Pharmacy Consult ? Medication Reconciliation Pharmacy has completed the medication reconciliation. 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 He brought in his medbox list from [facility]. When asked about generic Epclusa, patient says he last took it 2-3 months ago. Last fill on claims shows end of January 2024. Patient is unsure when he last took any of his medications.
[2024-03-30] MEDS: Ascorbic Acid 250 MG TABLET PO (17:50)
[2024-03-30] MEDS: Furosemide 20 MG TABLET PO (17:50)
[2024-03-30] MEDS: amLODIPine Besylate 10 MG TABLET PO (17:50)
[2024-03-30] MEDS: cefTRIAXone sodium 1 GM in 0.9 % Sodium Chloride 50 ML IV (17:51)
[2024-03-31] VITALS (7 sets, daily range): BP systolic 110–130; BP diastolic 48–62; PULSE 60–63; RESP 17–20; TEMP 36–37.1; O2SAT 96–98; BMI 33.5
[2024-03-31] MEDS: 0.9 % Sodium Chloride 1,000 ML 100 ML IVCONT ×3 (02:44→22:25)
[2024-03-31 04:57] LABS: Hematocrit 33.7 % (42.0-52.0); Hemoglobin 11.4 g/dl (14.0-18.0); Mean Corpuscular HGB Conc 33.8 g/dl (31.0-36.0); Mean Corpuscular Hemoglobin 28.5 pg (27.0-33.0); Mean Corpuscular Volume 84.3 fL (80.0-98.0); Red Cell Distribution Width 14.7 % (11.0-16.0); White Blood Count 2.2 X10*3/uL (4.8-10.8)
[2024-03-31 04:58] LABS: PLT ABN DIST 1; Platelet Count 24 X10*3/uL (160-400)
[2024-03-31 05:14] LABS: Anion Gap 12 (12-20); Blood Urea Nitrogen 13 mg/dL (9-16); Calcium 8.4 mg/dL (8.4-10.2); Carbon Dioxide 22 mmol/L (22-29); Chloride 107 mmol/L (96-108); Creatinine Clr Calc Pharmacy 83.2; Estimated Glomerular Filt Rate > 60; Glucose Fasting 90 mg/dL (60-99); Potassium 4.4 mmol/L (3.3-5.1); Sodium 137 mmol/L (135-145)
--- NOTE | 2024-03-31 07:29 | PC.NURSE ---
Care assumed for Pt at change of shift. Pt is currently resting comfortably with eye closed; NAD noted. Awaiting Care Team consult.
--- NOTE | 2024-03-31 07:29 | PC.NURSE ---
Pt is alert/oriented, pleasant. Eating breakfast at this time
--- NOTE | 2024-03-31 08:20 | PC.NURSE ---
With it quality assurance analyst pt is confused, unable to recite year or what hospital we are in. States he doesn't want any medication (home meds) that will ruin his liver. Pt reassured that these are home meds. Pt at times noted with responses not appropriate to question asked.
[2024-03-31] MEDS: Furosemide 20 MG TABLET PO (08:37)
[2024-03-31] MEDS: Ferrous Sulfate 324 MG TABLET.DR PO (08:37)
[2024-03-31] MEDS: Ascorbic Acid 250 MG TABLET PO (08:37)
[2024-03-31] MEDS: amLODIPine Besylate 10 MG TABLET PO (08:37)
--- NOTE | 2024-03-31 08:56 | HO.PM.IMPN ---
Subjective Subjective Date of Service: 03/31/24 Interval History: no furtehr fevers, mostly feeling better, but still with headache Physical Exam Vital Signs: Vital Signs: Last Vital Signs Temp 98.1 F 03/31/24 08:40 Pulse 62 03/31/24 08:40 Resp 20 03/31/24 08:40 BP 121/54 L 03/31/24 08:37 Pulse Ox 98 03/31/24 08:40 O2 Del Method Room Air 03/31/24 08:40 BMI result Body Mass Index 25.8 Const: General: cooperative Orientation/consciousness: patient oriented x3 HEENT: Head: Yes normal to inspection General nose exam: Normal external nose present Face and sinus: Yes normal facial exam Neck: Neck: Yes normal visual inspection and Yes full ROM Resp: Effort & Inspection: normal respiratory effort Auscultation: clear to auscultation bilaterally Cardio: Jugular venous distension: no JVD Rhythm: regular rhythm GI: Inspection: Yes normal to inspection Palpation (GI): Soft to palpation, not firm and nontender Skin: General skin exam: no rashes or lesions noted and elasticity normal Lesions: no lesions Neuro: General: patient oriented x3 Objective Data Active Medications Acetaminophen (Acetaminophen 325 Mg Tablet) 650 mg PO Q6H PRN PRN Reason: Pain, Mild (Pain Scale 1-3), fever or headache Albuterol Sulfate (Albuterol Sulfate 90 Mcg 8 Gm Inhaler) 2 puff INHALE Q6H PRN PRN Reason: wheezing Amlodipine Besylate (Amlodipine Besylate 10 Mg Tablet) 10 mg PO DAILY [facility]; Protocol Last Admin: 03/31/24 08:37 Dose: 10 mg Documented By: EVERETTE Ascorbic Acid (Ascorbic Acid 250 Mg Tablet) 250 mg PO DAILY [facility] Last Admin: 03/31/24 08:37 Dose: 250 mg Documented By: EVERETTE Calcium Carbonate (Calcium Carbonate 750 Mg Tab.Chew) 750 mg PO Q4H PRN PRN Reason: Heartburn Ferrous Sulfate (Ferrous Sulfate 324 Mg Tablet.) 324 mg PO DAILY [facility] Last Admin: 03/31/24 08:37 Dose: 324 mg Documented By: EVERETTE Furosemide (Furosemide 20 Mg Tablet) 20 mg PO DAILY [facility]; Protocol Last Admin: 03/31/24 08:37 Dose: 20 mg Documented By: EVERETTE Sodium Chloride (Ns) 1,000 mls @ 100 mls/hr IVCONT .Q10H [facility] Last Admin: 03/31/24 02:44 Dose: 100 mls/hr Documented By: JANELLE Ceftriaxone Sodium 1 gm/ (Sodium Chloride) 50 mls @ 100 mls/hr IV Q24H [facility] Last Infusion: 03/30/24 18:36 Dose: Infused Documented By: MIGUEL Magnesium Hydroxide (Milk Of Magnesia 30 Ml Oral.Susp) 30 ml PO DAILY PRN PRN Reason: Constipation Melatonin (Melatonin 3 Mg Tablet) 6 mg PO BEDTIME PRN PRN Reason: Insomnia Nadolol (Nadolol 40 Mg Tablet) 40 mg PO DAILY [facility]; Protocol Last Admin: 03/31/24 08:36 Dose: 40 mg Documented By: EVERETTE Sodium Chloride (0.9 % Sodium Chloride Flush 3 Ml Syringe) 3 ml IVFLUSH QSHIFT [facility] Last Admin: 03/31/24 08:37 Dose: Not Given Documented By: EVERETTE Non-Admin Reason: IV Running Labs 03/31/24 04:46 03/31/24 04:46 Labs: Laboratory Results - last 24 hr 03/30/24 03/30/24 03/31/24 12:25 13:21 04:46 MCV 84.8 84.3 MCH 28.3 28.5 MCHC 33.3 33.8 RDW 14.7 14.7 Plt Count 24 L D 24 L MPV Not Reportable Not Reportable Immature Gran % (Auto) 0.4 Neut % (Auto) 59.5 Lymph % (Auto) 24.8 [place] % (Auto) 14.9 H Eos % (Auto) 0.4 Baso % (Auto) 0.0 Lymph # (Auto) 0.7 L [place] # (Auto) 0.4 Eos # (Auto) 0.0 Baso # (Auto) 0.0 Abs Immat Gran (auto) 0.01 Absolute Neuts (auto) 1.7 L Absolute Nucleated RBC 0.000 0.000 Nucleated RBC % (auto) 0.0 0.0 Smear Tech's Comments VERIFIED Anion Gap 16 12 Estim Creat Clear Calc 72.5 83.2 Estimated GFR > 60 > 60 Random Glucose 98 Fasting Glucose 90 Lactic Acid 1.6 Calcium 9.1 8.4 D Total Bilirubin 1.6 H AST 43 H ALT 34 Alkaline Phosphatase 109 Total Protein 7.7 Albumin 3.6 Urine Color Dark Yellow Urine Appearance Clear Urine pH 5.5 Ur Specific [place] 1.025 Urine Protein 30 (1+) H Urine Glucose (UA) Negative Urine Ketones 15 Urine Blood Negative Urine Nitrite Negative Ur Leukocyte Esterase Trace H Urine RBC 0-2 Urine WBC 0-5 Ur Squamous Epith Cells 0-2 Urine Bacteria None Seen Hyaline Casts 0-2 Influenza Type A (PCR) NEGATIVE Influenza Type B (PCR) NEGATIVE RSV RNA Qual (PCR) NEGATIVE SARS-CoV-2 RNA (RT-PCR) NEGATIVE Assessment and Plan (1) Cirrhosis: Status: Acute Plan 63M PMH hcv cirrhosis with chornic pancytopneia, htn presented with fevers sirs vs sepsis ongoing work up for source not severe (panctyopenia chronic due to cirrhosis) continue empiric rocephin to cover gi, resp, follow up cultures headache ct head hcv cirrhosis with chronic pancytopenia no ascites, abd soft htn amlodipine dvt prophylaxis - mechanical due to thrombocytopenia full code reason for continued hospitalization:awaiting cultures, defervesence Quality Stroke Does the patient have a stroke diagnosis?: No VTE Prior VTE?: No VTE Risk Level:: Medical - moderate - high VTE Device Contraindication: N/A - Device Ordered VTE Drug Contraindication: Treatment Not Tolerated
[2024-03-31 09:53] LABS: Adenovirus PCR Not Detected (Not Detect.); Bordetella parapertussis PCR Not Detected (Not Detect.); Bordetella pertussis PCR Not Detected (Not Detect.); Chlamydia pneumoniae PCR Not Detected (Not Detect.); Coronavirus 229E PCR Not Detected (Not Detect.); Coronavirus HKU1 PCR Not Detected (Not Detect.); Coronavirus NL63 PCR Not Detected (Not Detect.); Coronavirus OC43 PCR Not Detected (Not Detect.); Human metapneumovirus PCR Not Detected (Not Detect.); Influenza A PCR Not Detected (Not Detect.); Influenza B PCR Not Detected (Not Detect.); Mycoplasma pneumoniae PCR Not Detected (Not Detect.); Parainfluenza 1 PCR Not Detected (Not Detect.); Parainfluenza 2 PCR Not Detected (Not Detect.); Parainfluenza 3 PCR Not Detected (Not Detect.); Parainfluenza 4 PCR Not Detected (Not Detect.); RSV PCR Not Detected (Not Detect.); Rhino/Enterovirus PCR Not Detected (Not Detect.)
[2024-03-31 10:14] LABS: SARS-CoV-2 PCR Not Detected (Not Detect.)
--- NOTE | 2024-03-31 11:14 | PC.NURSE ---
Eric from educational interpreter services assisted with admission assessment
--- NOTE | 2024-03-31 13:04 | MHC.CM.PN ---
pt lives in a [place]lter is independnt had own ride home when dcd dc plan home no servies
[2024-03-31] MEDS: cefTRIAXone sodium 1 GM in 0.9 % Sodium Chloride 50 ML IV (17:21)
[2024-04-01 04:00] VITALS: BP 107/53; PULSE 55; RESP 16; TEMP 36.8; O2SAT 99
[2024-04-01 07:48] VITALS: BP 116/69; PULSE 53; RESP 18; TEMP 36.1; O2SAT 98
[2024-04-01] MEDS: 0.9 % Sodium Chloride 1,000 ML 100 ML IVCONT (07:56)
[2024-04-01] MEDS: amLODIPine Besylate 10 MG TABLET PO (07:56)
[2024-04-01] MEDS: Furosemide 20 MG TABLET PO (07:57)
[2024-04-01] MEDS: Ascorbic Acid 250 MG TABLET PO (07:57)
[2024-04-01] MEDS: Ferrous Sulfate 324 MG TABLET.DR PO (07:57)
--- NOTE | 2024-04-01 09:03 | PM.DS ---
DS: Providers Provider Date of Service: 04/01/24 Date of admission: 03/30/24 16:42 Primary care physician: Leta Dick MD DS: Diagnosis Discharge Diagnosis (1) Cirrhosis: Status: Acute DS: Summary Hospital Course Hospital Course: from initial hpi: 63M PMH hcv cirrhosis with chornic pancytopneia, htn presented with fevers. patient is vague historian, inconsistent in reporting answers. initially chief complaint of nausea and vomiting, abd pain. now denying, complaining of dry cough, fever and chills for about 5 days. in ED, fevbrile, tachy, no clear source of infection. hospital course: Patient was admitted for SIRS versus possible sepsis. Workup to look for infectious cause was unrevealing. Was empirically treated with ceftriaxone, cultures were negative, fevers resolved. On discharge will hold off on further antibiotics. Patient is feeling back to baseline. For headache underwent CT head which was unremarkable. Headaches resolved. For HCV cirrhosis with chronic pancytopenia he had no ascites to check for SBP, his abdomen was soft. For hypertension was continued on amlodipine. Patient is feeling better will be discharged home. Time Attestation Discharge Coordination Time (in mins): 35 Quality: Safe Use of Opioids Does Pt have an Active Cancer Diagnosis on the Problem List?: No Quality: Stroke Does the patient have a stroke diagnosis?: No Physical Exam Vital Signs: Vital Signs: Last Vital Signs Temp 96.9 F 04/01/24 07:48 Pulse 53 04/01/24 07:48 Resp 18 04/01/24 07:48 BP 116/69 04/01/24 07:48 Pulse Ox 98 04/01/24 07:48 O2 Del Method Room Air 04/01/24 07:48 BMI result Body Mass Index 33.5 Const: General: cooperative Orientation/consciousness: patient oriented x3 HEENT: Head: Yes normal to inspection General nose exam: Normal external nose present Face and sinus: Yes normal facial exam Neck: Neck: Yes normal visual inspection and Yes full ROM Resp: Effort & Inspection: normal respiratory effort Auscultation: clear to auscultation bilaterally Cardio: Jugular venous distension: no JVD Rhythm: regular rhythm GI: Inspection: Yes normal to inspection Palpation (GI): Soft to palpation, not firm and nontender Skin: General skin exam: no rashes or lesions noted and elasticity normal Lesions: no lesions Neuro: General: patient oriented x3 DS: Data Data Completed and Pending Labs on day of discharge: Laboratory Results - last 24 hr 03/30/24 16:33 Respiratory Panel George See Note Adenovirus (Rapid PCR) Not Detected B.pert (TEM-PCR) Not Detected B.parapertussis DNA PCR Not Detected C. pneumoniae DNA (PCR) Not Detected Coronavirus OC43 (PCR) Not Detected Coronavirus HKU1 (PCR) Not Detected Coronavirus 229E (PCR) Not Detected Coronavirus NL63 (PCR) Not Detected Human Metapneumovir PCR Not Detected Influenza A (RT-PCR) Not Detected Influenza B (RT-PCR) Not Detected M. pneumoniae (PCR) Not Detected Parainfluenza 1 (PCR) Not Detected Parainfluenza 2 (PCR) Not Detected Parainfluenza 3 (PCR) Not Detected Parainfluenza 4 (PCR) Not Detected RSV (PCR) Not Detected Entero/Rhino (PCR) Not Detected SARS-CoV-2 RNA (RT-PCR) Not Detected Preliminary micro results at discharge 03/30/24 12:25 Blood Culture - Preliminary Blood - Venous No growth after 24 hours. 03/30/24 12:24 Blood Culture - Preliminary Blood - Venous No growth after 24 hours. Discharge Plan Discharge Anticipated Discharge Date/Time: 04/01/24 09:02 Patient Disposition: Home, Self-Care Discharge Diagnosis: fever, ?viral illness Referrals: Leta Soto MD [Primary Care Provider] - 1 Week Discharge Medications: Continued albuterol sulfate [Ventolin HFA] 90 mcg/actuation HFA aerosol inhaler 2 puff INHALATION Q6H PRN (Reason: wheezing) ferrous sulfate 325 mg (65 mg iron) tablet 325 mg PO QAM furosemide 20 mg tablet 20 mg PO QAM amlodipine 10 mg tablet 10 mg PO QAM ascorbic acid (vitamin C) 250 mg tablet 250 mg PO QAM nadolol 40 mg tablet 40 mg PO QAM Discharge Orders: Discharge Order (Routine); Ordered 04/01/24 Ordered By: Lobo Whiting Diet: Advance to usual diet Activity on Discharge: As tolerated Stand Alone Forms: Patient Portal Discharge page Print Language: Persian Care Plan Goals: recovery Health Concerns: fever Plan of Treatment: monintor for further fevers Assessment: see above
--- NOTE | 2024-04-01 09:34 | MHC.CM.PN ---
pt dcd home self care
== END 2024-04-01 11:45 | disposition home or self-care (01) ==
LOC: HO.ED 16:14 → HO.EDOVER 16:44 → HO.S3 03-31 08:19
PROVIDERS: Emergency Medicine; Admitting Provider Internal Medicine; Emergency Provider Emergency Medicine; PCP Student in an Organized Health Care Education/Training Program; Visit Provider Internal Medicine
DX: K74.69 Other cirrhosis of liver (principal); D61.818 Other pancytopenia; R65.10 Systemic inflammatory response syndrome (SIRS) of non-infectious origin without acute organ dysfunction; I10 Essential (primary) hypertension; Z20.822 Contact with and (suspected) exposure to COVID-19; Z86.19 Personal history of other infectious and parasitic diseases; Z79.899 Other long term (current) drug therapy
CPT/HCPCS: 0241U; 36415; 70450; 71045; 74176; 80048; 80053; 81001; 83605; 85025; 85027; 87040; 87633; 93005; 99285; J0696; J2765

== ENCOUNTER → 2024-03-30 12:05 | Outpatient (BNV) | payer MEDICAID, SELFPAY | PROVIDERS: Admitting Provider Internal Medicine; Emergency Provider Emergency Medicine; PCP Student in an Organized Health Care Education/Training Program; Visit Provider Internal Medicine | DX: R07.9 Chest pain, unspecified (principal) | CPT/HCPCS: 93010 ==

== ENCOUNTER → 2024-03-30 16:42 | Outpatient (BNV) | payer MEDICAID, SELFPAY | PROVIDERS: Admitting Provider Internal Medicine; Emergency Provider Emergency Medicine; PCP Student in an Organized Health Care Education/Training Program; Visit Provider Internal Medicine | DX: K74.69 Other cirrhosis of liver (principal) | CPT/HCPCS: 99223; 99232; 99239 ==

== ENCOUNTER 2024-04-28 08:21 | Outpatient (REF) | payer MEDICAID, SELFPAY ==
[2024-04-28 09:12] LABS: Alanine Aminotransferase 32 U/L (0-40); Albumin Level 3.8 g/dL (3.5-5.0); Alkaline Phosphatase 130 U/L (39-117); Aspartate Amino Transferase 37 U/L (5-37); Bilirubin Direct 0.5 mg/dL (0.0-0.5); Total Protein 7.8 g/dL (6.5-8.0)
[2024-04-28 09:31] LABS: HBsAGNum1 0.29 S/CO (0.00-0.99); Hepatitis B Surface Antigen Negative (Negative)
[2024-04-30 13:27] LABS: HCV Log PCR <1.18 NOT DETECTED Log IU/mL (NOT DETECTED); HepC Viral Load <15 NOT DETECTED IU/mL (NOT DETECTED)
== END 2024-04-28 08:22 | disposition home or self-care (01) ==
LOC: HO.LAB 08:21
PROVIDERS: PCP Student in an Organized Health Care Education/Training Program; Visit Provider Internal Medicine
DX: K74.60 Unspecified cirrhosis of liver (principal); B19.20 Unspecified viral hepatitis C without hepatic coma; R76.8 Other specified abnormal immunological findings in serum
CPT/HCPCS: 36415; 80076; 87340; 87522

== ENCOUNTER 2024-04-29 10:50 | Day surgery (SDC) | payer MEDICAID, SELFPAY ==
--- NOTE | 2024-04-28 13:21 | HO.ANESPROP2 ---
Documented by User: Nimo Corrales NP 04/28/24 13:28 HPI - Anesthesia Eval Consult details Narrative: 63yo M for Upper Endoscopy Cirrhosis with thrombocytopenia. PLTS 24 on 03/31/24. Per GI/Heme, pt to come 04/28/24 for repeat CBC and type & screen [facility] admit 03/30-04/01/24 hospital course: Patient was admitted for SIRS versus possible sepsis. Workup to look for infectious cause was unrevealing. Was empirically treated with ceftriaxone, cultures were negative, fevers resolved. On discharge will hold off on further antibiotics. Patient is feeling back to baseline. For headache underwent CT head which was unremarkable. Headaches resolved. For HCV cirrhosis with chronic pancytopenia he had no ascites to check for SBP, his abdomen was soft. For hypertension was continued on amlodipine. Patient is feeling better will be discharged home. PMFSH Active Problems Active Problems: All Active Problems Cirrhosis (Acute) Pancytopenia (Acute) Hyperplastic adenomatous polyp of stomach (Acute) Iron deficiency anemia (Acute) Cirrhosis (Acute) Hepatitis B core antibody positive (Acute) Hepatitis C virus infection (Acute) Thickening of wall of gallbladder (Acute) Pancytopenia (Acute) Past Medical History Medical History Esophageal varices Pancytopenia Iron deficiency anemia Cirrhosis Hepatitis C HBP (high blood pressure) Family History Family History Maternal Grandmother Breast CA Uterus cancer Mother Primary lung cancer of unknown cell type Family history of problems with anesthesia: No Surgical History Surgical History H/O left inguinal hernia repair H/O eye surgery History of esophagogastroduodenoscopy (EGD) H/O colonoscopy History of Problems with Anesthesia: No Social History Social History Household Members: None Housing: Other Housing Other:: skilled nursing Do you presently have visiting nurse or other home services: No Patient Tobacco Use Status: Current everyday Tobacco user Tobacco use type: Cigarette Cigarettes Per Day: 3 Second Hand Smoke Exposure: No Use of substances other than those prescribed or required for medical reasons: No Are you DNR?: No Advance Directives: No Advance Directives Information Provided: Yes service: No Current occupational status: retired Meds Allergies Allergy/AdvReac Type Severity Reaction Status Date / Time aspirin AdvReac Severe stomach Verified 03/30/24 12:10 bleeding NSAIDS (Non-Steroidal AdvReac Severe liver Verified 02/13/24 12:38 Anti-Inflamma concerns Home Medications ?Medication ?Instructions ?Recorded ?Confirmed ?Last Taken ?Type amlodipine 10 mg tablet 10 mg PO QAM 12/03/23 03/30/24 Unknown History ascorbic acid (vitamin C) 250 mg 250 mg PO QAM 12/03/23 03/30/24 Unknown History tablet ferrous sulfate 325 mg (65 mg 325 mg PO QAM 12/03/23 03/30/24 Unknown History iron) tablet furosemide 20 mg tablet 20 mg PO QAM 12/03/23 03/30/24 Unknown History nadolol 40 mg tablet 40 mg PO QAM 02/13/24 03/30/24 Unknown History albuterol sulfate 90 mcg/actuation 2 puff inhalation Q6H PRN wheezing 03/30/24 03/30/24 Unknown History aerosol inhaler (Ventolin HFA) Exam Pertinent Lab Results Pertinent Lab Results: Laboratory Tests 03/31/24 04:46 WBC 2.2 L Hgb 11.4 L Hct 33.7 L Plt Count 24 L Sodium 137 Potassium 4.4 Chloride 107 Carbon Dioxide 22 BUN 13 Creatinine 0.95 Narrative Narrative: EKG 03/2024 Vent. Rate : 081 BPM Atrial Rate : 081 BPM P-R Int : 128 ms QRS Dur : 084 ms QT Int : 358 ms P-R-T Axes : 023 015 047 degrees QTc Int : 415 ms Sinus rhythm with Premature atrial complexes Otherwise normal ECG When compared with ECG of 12-OCT-2023 12:14, Premature atrial complexes are now Present CT abdomen pelvis wo IV con 03/2024 IMPRESSION: 1. A cause for the patient's abdominal pain has not been found. 2. Again seen is a massive spleen. 3. Mild edematous changes are seen in the fat surrounding the ascending colon, similar to prior, but slightly less marked. Findings could be secondary to portal colopathy in the setting of portal hypertension. Assessment and Plan Assessment Anesthesia Assessment: Chart Reviewed Final Anesthetic Review Family History of Problems with Anesthesia: No History of Problems with Anesthesia: No Documented by User: Luis Senior MD 04/29/24 11:32 PMFSH Past Medical History Medical History Esophageal varices Pancytopenia Iron deficiency anemia Cirrhosis Hepatitis C HBP (high blood pressure) Family History Family History Maternal Grandmother Breast CA Uterus cancer Mother Primary lung cancer of unknown cell type Surgical History Surgical History H/O left inguinal hernia repair H/O eye surgery History of esophagogastroduodenoscopy (EGD) H/O colonoscopy Social History Social History Household Members: None Housing: Other Housing Other:: skilled nursing Do you presently have visiting nurse or other home services: No Patient Tobacco Use Status: Current everyday Tobacco user Tobacco use type: Cigarette Cigarettes Per Day: 3 Second Hand Smoke Exposure: No Use of substances other than those prescribed or required for medical reasons: No Are you DNR?: No Advance Directives: No Advance Directives Information Provided: Yes service: No Current occupational status: retired Meds Allergies Allergy/AdvReac Type Severity Reaction Status Date / Time aspirin AdvReac Severe stomach Verified 03/30/24 12:10 bleeding NSAIDS (Non-Steroidal AdvReac Severe liver Verified 02/13/24 12:38 Anti-Inflamma concerns Home Medications ?Medication ?Instructions ?Recorded ?Confirmed ?Last Taken ?Type amlodipine 10 mg tablet 10 mg PO QAM 12/03/23 03/30/24 Unknown History ascorbic acid (vitamin C) 250 mg 250 mg PO QAM 12/03/23 03/30/24 Unknown History tablet ferrous sulfate 325 mg (65 mg 325 mg PO QAM 12/03/23 03/30/24 Unknown History iron) tablet furosemide 20 mg tablet 20 mg PO QAM 12/03/23 03/30/24 Unknown History nadolol 40 mg tablet 40 mg PO QAM 02/13/24 03/30/24 Unknown History albuterol sulfate 90 mcg/actuation 2 puff inhalation Q6H PRN wheezing 03/30/24 03/30/24 Unknown History aerosol inhaler (Ventolin HFA) Exam Narrative Narrative: oEKG 03/2024 Vent. Rate : 081 BPM Atrial Rate : 081 BPM P-R Int : 128 ms QRS Dur : 084 ms QT Int : 358 ms P-R-T Axes : 023 015 047 degrees QTc Int : 415 ms Sinus rhythm with Premature atrial complexes Otherwise normal ECG When compared with ECG of 12-OCT-2023 12:14, Premature atrial complexes are now Present CT abdomen pelvis wo IV con 03/2024 IMPRESSION: 1. A cause for the patient's abdominal pain has not been found. 2. Again seen is a massive spleen. 3. Mild edematous changes are seen in the fat surrounding the ascending colon, similar to prior, but slightly less marked. Findings could be secondary to portal colopathy in the setting of portal hypertension. Airway Mallampati Class: II TM Dist: >3cm Neck ROM: Full Assessment and Plan Assessment Anesthesia Assessment: Anesthesia Plan Discussed Final Anesthetic Review NPO: Yes ASA Class: IV Final Preanesthetic Review: No Changes in Pt Med Stat, Meds/Allgs Chart Reviewed, Consent Obtained/Reviewed and Anes Risks/Benef Reviewed Patient Risk: High Procedure Risk: Low Anesthetic Plan Anesthetic Plan: TIVA Disposition: Standard PACU
[2024-04-29 11:01] VITALS: BMI 31.1
[2024-04-29 11:42] VITALS: BP 150/73; PULSE 72; RESP 16; TEMP 36.8; O2SAT 98
[2024-04-29 11:49] LABS: Basophils Percent Auto 0.4 % (0-2); Eosinophils Percent Auto 1.6 % (0-4); Mean Corpuscular Volume 87.9 fL (80.0-98.0)
[2024-04-29 11:51] LABS: Hematocrit 37.2 % (42.0-52.0); Hemoglobin 12.2 g/dl (14.0-18.0); Lymphocytes Absolute Auto 0.7 X10*3/uL (1.2-4.9); Lymphocytes Percent Auto 27.3 % (20-40); Mean Corpuscular HGB Conc 32.8 g/dl (31.0-36.0); Mean Corpuscular Hemoglobin 28.8 pg (27.0-33.0); Monocytes Absolute Auto 0.2 X10*3/uL (0.1-1.2); Neutrophils Absolute Auto 1.5 x10*3/uL (2.0-8.3); Neutrophils Percent Auto 61.7 % (45-73); Platelet Count 25 X10*3/uL (160-400); Red Blood Count 4.23 X10*6/uL (4.60-5.80); Red Cell Distribution Width 14.9 % (11.0-16.0); White Blood Count 2.5 X10*3/uL (4.8-10.8)
[2024-04-29] MEDS: Lactated Ringers 1,000 ML 100 ML IVCONT (11:58)
[2024-04-29 12:11] LABS: Alanine Aminotransferase 29 U/L (0-40); Albumin Level 3.6 g/dL (3.5-5.0); Alkaline Phosphatase 118 U/L (39-117); Anion Gap 13 (12-20); Aspartate Amino Transferase 35 U/L (5-37); Blood Urea Nitrogen 14 mg/dL (9-16); Calcium 9.2 mg/dL (8.4-10.2); Carbon Dioxide 24 mmol/L (22-29); Chloride 112 mmol/L (96-108); Creatinine Clr Calc Pharmacy 110.4; Estimated Glomerular Filt Rate > 60; Glucose Random 85 mg/dL (60-115); Potassium 4.7 mmol/L (3.3-5.1); Sodium 144 mmol/L (135-145); Total Protein 7.3 g/dL (6.5-8.0)
[2024-04-29 12:21] LABS: Bilirubin Total 1.1 mg/dL (0.0-1.0)
[2024-04-29 12:33] VITALS: BP 106/61; PULSE 64; RESP 16; TEMP 36.8
--- NOTE | 2024-04-29 12:44 | MHC.SHP ---
Pre-Procedural Eval Section A - 24 Hr Update-Section A only Date of Service: 04/29/24 Section B - Complete if H&P > 30 days Chief Complaint: Unspecified cirrhosis of liver Details of Present Illness: geal varices Pancytopenia Iron deficiency anemia Cirrhosis Hepatitis C HBP (high blood pressure) Surgical History H/O left inguinal hernia repair H/O eye surgery History of esophagogastroduodenoscopy (EGD) H/O colonoscopy Allergies: Allergies Allergy/AdvReac Type Severity Reaction Status Date / Time aspirin AdvReac Severe stomach Verified 03/30/24 12:10 bleeding NSAIDS (Non-Steroidal AdvReac Severe liver Verified 02/13/24 12:38 Anti-Inflamma concerns Review of Systems Review of Systems Comment: Ten point ROS negative Exam Exam Comment: Gen appear: No acute distress HEENT: no icterus Chest: No overt resp distress Abd: soft, nontender, nondistended Psych: Stable affect, answering questions appropriately Neuro: A/Ox3 noted to move all extremities spontaneously Ext: no peripheral edema Plan Diagnosis/Plan: Unchanged I have reviewed the history and physical and performed a pertinent physical examination on my patient. No changes have occurred unless specified. Time Spent With Patient Time: Total time managing care of this patient today ____ minutes.
[2024-04-29 12:54] VITALS: BP 120/50; PULSE 70; RESP 16; TEMP 36.7
[2024-04-29 12:59] VITALS: BP 120/50; PULSE 70; RESP 16; TEMP 36.7
--- NOTE | 2024-04-29 13:05 | PC.NURSE ---
bag #2 of platelets currently transfusing upon transport to OR for procedure.
--- NOTE | 2024-04-29 13:34 | P.OP_ITS ---
Operative Note Operative Note Date of Service: 11/20/23 Narrative: Procedure: Esophagogastroduodenoscopy Endoscopist: Yajaira Antonio MD Indication: Cirrhosis, variceal screening, gastric polyps Anesthesia Provider: Emily Delcid CRNA Anesthesia Type: MAC EGD Procedure:?? The procedure, indications, preparation and potential complications were reviewed with the patient with the help of wheel alignment technician, who indicated understanding and gave written informed consent to proceed. A physical exam was performed. The endoscope was introduced through the mouth, and advanced to the second part of duodenum. The mucosa was carefully examined on slow withdrawal of the endoscope. The patient tolerated the procedure well. There were no immediate c omplications.? ? EGD Findings:? * Esophagus:? 5 columns of large varices occupying the entire lumen of the esophagus with multiple red abilio reddy were noted to extend from GE junction at 39 to 23 cm. * Stomach:?Diffuse congestion and erythema in mosaic pattern consistent with portal hypertensive gastropathy was noted in the whole stomach. Retroflexion in the cardia showed a small hiatal hernia. No fundal varices were noted. There were at least 4-5 large 1.5-2 cm polyps in the stomach with previous biopsies consistent with hyperplastic polyps. * Duodenum:? Edema and erythema along with lymphangiectasis was noted in the whole of the examined duodenum. Additional intervention: A [employer] multiband shooter was affixed to the scope in the usual fashion and then advanced to the esophagus. The varices were banded in a spirally ascending fashion from 39 cm to 30 cm. Total of 4 bands were applied with near complete decompression of varices. ? EGD Impressions:? * Large varices with high risk stigmata (EVBL x 4) * Hiatal hernia * Gastric polyps * Portal hypertensive gastropathy * Portal hypertensive duodenopathy with lymphangectasia ?? Recommendations:?? * Clear liquids only today and advance to regular diet tomorrow * Can take magic mouth wash ad rachael for post banding discomfort x 2-3 days * Start omeprazole 20mg PO once daily and carafate 1g liquid PO QID for prevention of post-banding ulcers * Switch Nadolol to Carvedilol 3.125 BID. Further uptitration based on HR and BP readings - pt to call in 2 weeks. * Repeat EGD in 8-12 weeks for complete variceal obliteration * Polypectomy was not performed today, will be deferred until varices are obliterated. * HCV labs pending
[2024-04-29 13:38] VITALS: BP 136/76; PULSE 91; RESP 16; TEMP 36.3; O2SAT 97
[2024-04-29 13:53] VITALS: BP 139/79; PULSE 77; RESP 18; TEMP 36.6; O2SAT 99
== END 2024-04-29 14:36 | disposition home or self-care (01) ==
PROVIDERS: Internal Medicine Medical Oncology; PCP Student in an Organized Health Care Education/Training Program; Visit Provider Internal Medicine
PROC: 0DJ08ZZ Inspection of Upper Intestinal Tract, Via Natural or Artificial Opening Endoscopic (ICD-10-PCS; CPT 43235; principal; 2024-04-29 13:00)
DX: K31.7 Polyp of stomach and duodenum (principal); K76.6 Portal hypertension; K31.819 Angiodysplasia of stomach and duodenum without bleeding; I85.00 Esophageal varices without bleeding; K74.60 Unspecified cirrhosis of liver; K44.9 Diaphragmatic hernia without obstruction or gangrene; D69.6 Thrombocytopenia, unspecified; D61.818 Other pancytopenia; D50.9 Iron deficiency anemia, unspecified; I10 Essential (primary) hypertension; B19.20 Unspecified viral hepatitis C without hepatic coma; Z79.899 Other long term (current) drug therapy; Z88.6 Allergy status to analgesic agent; Z88.8 Allergy status to other drugs, medicaments and biological substances; Z98.890 Other specified postprocedural states; F17.210 Nicotine dependence, cigarettes, uncomplicated
CPT/HCPCS: 43235; 36415; 80053; 85025; 86850; 86900; 86901; 88305; 88313; 88342; J1596; J2704; P9073

== ENCOUNTER → 2024-04-29 10:50 | Outpatient (BNV) | payer MEDICAID, SELFPAY | PROVIDERS: PCP Student in an Organized Health Care Education/Training Program; Visit Provider Internal Medicine | DX: K74.60 Unspecified cirrhosis of liver (principal); K31.7 Polyp of stomach and duodenum; I85.00 Esophageal varices without bleeding; K31.89 Other diseases of stomach and duodenum | CPT/HCPCS: 43239; 43244 ==

== ENCOUNTER 2024-05-26 18:10 | Inpatient (IN) | payer MEDICAID, SELFPAY ==
--- NOTE | ~2024-05-26 | CT_ITS ---
EXAMINATION: CT ABDOMEN AND PELVIS WITH CONTRAST CLINICAL INFORMATION: Right-sided abdominal pain. Right upper quadrant pain. COMPARISON: CT scan abdomen and pelvis March 30, 2024 TECHNIQUE: Multidetector volumetric images were obtained from the superior aspect of the liver through the pubic symphysis following administration 85 mL of Omnipaque 350 intravenous contrast. Sagittal and coronal reformatted images were obtained on the technologist's workstation. Oral contrast: No This CT examination was performed using dose optimization techniques as appropriate, variously including the following: *Automated exposure control *Adjustment of mA and/or kV according to patient size (this includes techniques or standardized protocols for targeted exams where dose is matched to indication/reason for exam; i.e. extremities or head) *Use of iterative reconstruction technique DLP: 917 mGy-cm FINDINGS: LUNG BASES: The visualized lung bases are unremarkable. LIVER, GALLBLADDER, AND BILIARY TREE: Nodular contour of the liver consistent with cirrhosis. No focal liver lesion. Liver is small. Right lobe of liver measures 15 cm superior inferior. No focal liver lesion or intrahepatic bile duct dilatation. The gallbladder is unremarkable with no evidence of radiopaque gallstones, gallbladder wall thickening, or obvious pericholecystic inflammatory changes. PANCREAS: Unremarkable. SPLEEN: Spleen is enlarged measuring 21 cm superior inferior. ADRENAL GLANDS: Unremarkable. KIDNEYS AND URETERS: The kidneys are normal in size, shape, and attenuation. No hydronephrosis, hydroureter, or calculi seen. No perinephric stranding. Small cortical cyst upper pole right kidney and lower pole left kidney. No follow-up imaging is recommended for simple renal cyst. BLADDER: Unremarkable. GASTROINTESTINAL TRACT: There are scattered diverticula of the sigmoid colon. There is no diverticulitis. There is no bowel wall thickening /edema. There is no bowel obstruction. There is a moderate volume of stool in the colon. The appendix is normal . The small bowel loops are unremarkable. The stomach is normal. There is no hiatal hernia. ABDOMINAL WALL: No significant hernia is appreciated. LYMPH NODES: Normal. VASCULAR: There is partial thrombosis of the portal vein. Abdominal vasculature is otherwise normally aerated. PELVIC VISCERA: Unremarkable. OSSEOUS STRUCTURES: No acute osseous abnormality. Multilevel marginal spondylosis spine. CT/CT abdomen pelvis w IV con IMPRESSION: 1. No acute abnormality CT scan abdomen pelvis. 2. Cirrhosis of liver. Splenomegaly. Partial thrombosis of the portal vein. Fleischner guidelines were followed. Electronically signed by: Elder Alicia MD 05/26/2024 09:05 PM EDT RP
--- NOTE | ~2024-05-26 | CT_ITS ---
EXAMINATION: CT HEAD WITHOUT CONTRAST CLINICAL INFORMATION: Head injury. COMPARISON: CT head March 31, 2024 TECHNIQUE: Contiguous axial imaging was performed from the skull base to vertex without intravenous administration of contrast. Coronal and sagittal reformatted images are performed at the CT scanner. This CT examination was performed using dose optimization techniques as appropriate, variously including the following: *Automated exposure control *Adjustment of mA and/or kV according to patient size (this includes techniques or standardized protocols for targeted exams where dose is matched to indication/reason for exam; i.e. extremities or head) *Use of iterative reconstruction technique DLP: 685 mGy-cm. FINDINGS: There is no evidence of acute intracranial hemorrhage or territorial infarction. No abnormal mass-effect or midline shift is seen. Armstrong to white matter differentiation is well preserved. No extra-axial fluid collections are identified. The ventricles are normal in size. There is no abnormal attenuation within the brain parenchyma. Small hyperdense right orbital globe, correlate with history. There is no osseous abnormality. The mastoid air cells and visualized portions of the paranasal sinuses are well-aerated. CT/CT head/brain wo IV con IMPRESSION: No acute intracranial pathology. Electronically signed by: Elder Alicia MD 05/26/2024 09:35 PM EDT RP
[2024-05-26 18:16] VITALS: BP 170/70; PULSE 84; O2SAT 97
--- NOTE | 2024-05-26 18:23 | ECG_ITS ---
Test Reason : ABD PAIN Blood Pressure : / mmHG Vent. Rate : 077 BPM Atrial Rate : 077 BPM P-R Int : 150 ms QRS Dur : 072 ms QT Int : 374 ms P-R-T Axes : 022 026 046 degrees QTc Int : 423 ms Normal sinus rhythm Normal ECG When compared with ECG of 30-MAR-2024 12:30, Premature atrial complexes are no longer Present Referred By: Peggy Renee Electronically Signed By:NABILA GIANG
[2024-05-26 18:25] VITALS: BP 133/60; PULSE 76; RESP 18; TEMP 36.6; O2SAT 99; BMI 33.6
--- NOTE | 2024-05-26 18:41 | ED.ABDPAIN ---
HPI - Abdominal Pain General Chief Complaint: Abdominal Pain Stated Complaint: 8 of AB pain, vomited blood, uzbek translat Time Seen by Provider: 05/26/24 18:22 Source: patient, old records reviewed and translator interpreter Mode of arrival: ambulatory Limitations: no limitations History of Present Illness ED Provider: RAE HPI narrative: 63 yo male with PMH of chronic pancytopenia, HTN, cirrhosis due to chronic hepC, hiatal hernia, portal hypertensive gastropathy/duodenopathy s/o 4 bands on 04/29/24 of 4 large varices with high risk stigmata done by Dr. Antonio he comes in today with c/o diarrhea all day today that was dark and then notes he had n/v and threw up something dark no silvia blood no clots. He has R sided abdominal pain and is tired. He is not on any NSAIDs or thinners. He denies any dysuria or any other symptoms. He states he was at an appointment to look at an apartment when this all of a sudden hit him family now here and state he has been having pain on R side [place] he never told us this and they note he hit his head they also note he fell again in the long term at this time I have sent him to CT scan for the head he denies any neck pain. this was completely different from what he told us and this was found out over an hour into his visit after his initial CT scan MD elicited complaint: abdominal pain Pertinent past history: gastrointestinal bleeding Onset (ago): hour(s) (few) Pain Consistency: constant Location: RUQ, RLQ and R flank Severity: severe Quality: stabbing Radiation: none Migration to: no migration Exacerbating factors: movement Relieving factors: nothing Context: history of similar episodes Associated symptoms: nausea, vomiting and diarrhea Related Data Home Medications ?Medication ?Instructions ?Recorded ?Confirmed amlodipine 10 mg tablet 10 mg PO QAM 12/03/23 05/02/24 ascorbic acid (vitamin C) 250 mg 250 mg PO QAM 12/03/23 05/02/24 tablet ferrous sulfate 325 mg (65 mg 325 mg PO QAM 12/03/23 05/02/24 iron) tablet furosemide 20 mg tablet 20 mg PO QAM 12/03/23 05/02/24 albuterol sulfate 90 mcg/actuation 2 puff inhalation Q6H PRN wheezing 07/21/24 08/23/24 aerosol inhaler (Ventolin HFA) Previous Rx's ?Medication ?Instructions ?Recorded carvedilol 3.125 mg tablet 3.125 mg PO BID 30 days #60 tabs 04/29/24 omeprazole 20 mg capsule,delayed 20 mg PO BID 14 days #28 caps 04/29/24 release sucralfate 100 mg/mL oral 10 ml PO QID 14 days #560 mL 04/29/24 suspension Allergies Allergy/AdvReac Type Severity Reaction Status Date / Time aspirin AdvReac Severe stomach Verified 05/26/24 18:32 bleeding NSAIDS (Non-Steroidal AdvReac Severe liver Verified 05/26/24 18:32 Anti-Inflamma concerns Review of Systems Review of Systems Constitutional : No Weight loss, No Fever, No Chills ENT/Mouth : No sore throat, No Rhinorrhea Eyes: No Swelling, No Redness Cardiovascular : No Chest Pain, No SOB, NoEdema Respiratory : No Cough, No Sputum, No Wheezing Gastrointestinal : Positive Nausea, Positive Vomiting, positive Diarrhea, positive abdominal Pain, No Hematochezia, No Melena Genitourinary : No Dysuria, No Urinary Frequency, No Hematuria, No Urgency Musculoskeletal : No joint pain, No Myalgias, No Joint Swelling Skin : No Skin Lesions, No rash Neuro : No Weakness, No Numbness, No Dizziness, No Headache All other systems reviewed and are negative. [facility] Past Medical History Attestation statement: The following information was validated with the patient. Source: old records reviewed Medical History Esophageal varices Pancytopenia Iron deficiency anemia Cirrhosis Hepatitis C HBP (high blood pressure) Surgical History H/O left inguinal hernia repair H/O eye surgery History of esophagogastroduodenoscopy (EGD) H/O colonoscopy Family History Family History Maternal Grandmother Breast CA Uterus cancer Mother Primary lung cancer of unknown cell type Social History Social History Household Members: None Housing: Other Housing Other:: long term Do you presently have visiting nurse or other home services: No Patient Tobacco Use Status: Current everyday Tobacco user Tobacco use type: Cigarette Cigarettes Per Day: 3 Smoked in Last 30 Days: Yes Second Hand Smoke Exposure: No Use of substances other than those prescribed or required for medical reasons: No Advance Directives: No Advance Directives Information Provided: No Do you have a plan to hurt others: No Plan service: No Current occupational status: retired Physical Exam ED Vital Signs: Vital Signs - 24 hr 05/26/24 18:25 05/26/24 19:56 Temperature 97.8 F 97.9 F Pulse Rate 76 73 Respiratory Rate 18 12 Blood Pressure 133/60 149/61 H Pulse Oximetry 99 97 Oxygen Delivery Method Room Air Room Air BMI result Body Mass Index 33.6 Appearance: Alert. Oriented X3. No acute distress. Eyes: Pupils equal, round and reactive to light. ENT: Pharynx normal. Neck: Normal inspection. Neck supple. CVS: Normal heart rate and rhythm. Pulses normal. Respiratory: No respiratory distress. Breath sounds normal. Abdomen: Soft and moderate ttp in R mid abdomen no rebound Rectal: light brown stool noted Skin: Skin warm and dry. Normal skin color. Normal skin turgor. Extremities: No lower extremity edema. Neuro: Oriented X 3. No motor deficit. No sensory deficit. Course Course Course Narrative: given platelets of 21 I have ordered a pack of platelets with his hx of bleeding Reevaluation(s) Reevaluation #1: normal LFTs partial thrombus of PV normal bili - given thrombocytopenia which is chronic currently not a candidate for transfusion GI can weigh in Reevaluation #2: Nick HAMILTON to follow up on CT head read and admit after final report negative Medical Decision Making Medical Decision Making MDM Narrative: 63 yo male with PMH of chronic pancytopenia, HTN, cirrhosis due to chronic hepC, hiatal hernia, portal hypertensive gastropathy/duodenopathy s/o 4 bands on 04/29/24 of 4 large varices now here with dark stools abdominal pain on R side and reports of vomiting something dark x 1 at this time I have ordered IV protonix, zofran, type and screen, possible octreotide and ceftriaxone - no fevers and pain is not diffuse it is localized I am going to order CT scan to look for biliary colic/PV thrombus/renal colic/coliltis Differential Diagnosis Differential Diagnoses: The differential diagnosis associated with the presentation includes PUD, gastritis, variceal bleed, UGIB Admission/Observation Consideration of admission/observation: Escalation of care including admission/observation considered needs admission overnight for GI consult in AM Consult Healthcare Provider Management of the patient was discussed with: Hospitalist (will admit) and Photography Sales Associate Dr. Villaseñor aware can hold off any octreotide if no active bleeding, consult Paco in AM, can call overnight with questions. Lab Data MDM Lab Attestation statement: I reviewed the patient's lab results. 05/26/24 18:46 05/26/24 18:46 Labs: Lab Results 05/26/24 05/26/24 05/26/24 Range/Units 18:46 19:13 20:40 WBC 2.4 L (4.8-10.8) X10*3/uL RBC 4.15 L (4.60-5.80) X10*6/uL Hgb 12.0 L (14.0-18.0) g/dl Hct 36.5 L (42.0-52.0) % MCV 88.0 (80.0-98.0) fL MCH 28.9 (27.0-33.0) pg MCHC 32.9 (31.0-36.0) g/dl RDW 14.6 (11.0-16.0) % Plt Count 21 L (160-400) X10*3/uL MPV Not Reportable Immature Gran % (Auto) 0.9 H (0.0-0.4) % Neut % (Auto) 71.0 (45-73) % Lymph % (Auto) 18.7 L (20-40) % Moore % (Auto) 8.1 (2-11) % Eos % (Auto) 0.9 (0-4) % Baso % (Auto) 0.4 (0-2) % Lymph # (Auto) 0.4 L (1.2-4.9) X10*3/uL Moore # (Auto) 0.2 (0.1-1.2) X10*3/uL Eos # (Auto) 0.0 (0.0-0.4) X10*3/uL Baso # (Auto) 0.0 (0.0-0.2) X10*3/uL Abs Immat Gran (auto) 0.02 (0.00-0.03) X10*3/uL Absolute Neuts (auto) 1.7 L (2.0-8.3) x10*3/uL Absolute Nucleated RBC 0.000 (0.0-0.012) X10*3/uL Nucleated RBC % (auto) 0.0 (0.0-0.2) /100WBC Smear Tech's Comments VERIFIED PT 14.2 H (11.1-13.3) SEC INR 1.2 H (0.9-1.1) APTT 31.0 (26.0-36.8) SEC Sodium 142 (135-145) mmol/L Potassium 4.7 (3.3-5.1) mmol/L Chloride 110 H (96-108) mmol/L Carbon Dioxide 26 (22-29) mmol/L Anion Gap 11 L (12-20) BUN 17 H (9-16) mg/dL Creatinine 0.97 (0.5-1.4) mg/dL Estim Creat Clear Calc 96.4 Estimated GFR > 60 Random Glucose 101 (60-115) mg/dL Lactic Acid 1.7 (0.5-2.0) mmol/L Calcium 9.6 (8.4-10.2) mg/dL Magnesium 1.9 (1.6-2.6) mg/dL Total Bilirubin 1.0 (0.0-1.0) mg/dL Direct Bilirubin 0.4 (0.0-0.5) mg/dL AST 38 H (5-37) U/L ALT 33 (0-40) U/L Alkaline Phosphatase 128 H (39-117) U/L Troponin I High Sens 5.1 (<3.5-35.0) ng/L Total Protein 7.5 (6.5-8.0) g/dL Albumin 3.7 (3.5-5.0) g/dL Lipase 29 (8-78) U/L Urine Color Yellow Urine Appearance Clear Urine pH 6.0 (5.0-9.0) Ur Specific Bogard >= 1.030 H (1.005-1.025) Urine Protein Negative (Neg-Trace) mg/dL Urine Glucose (UA) Negative (Negative) mg/dL Urine Ketones Negative (Negative) mg/dL Urine Blood Negative (Negative) Urine Nitrite Negative (Negative) Ur Leukocyte Esterase Negative (Negative) Stool Occult Blood POSITIVE (NEGATIVE) Blood Type O Negative Antibody Screen NEGATIVE Independent Interpretation I performed an independent interpretation of an: EKG and CT Scan (no ICH, no ascites on CT scan, PV thrombus) Interpretation: Rate: 77 Rhythm: NSR Mills: normal Normal P waves. Normal ZAHRA. Normal QRS complex. ST T wave : normal no ANA qTC: 423 prior studies: no acute ischemia The study has been interpreted contemporaneously by me. . Radiology Impression Discussion of test interpretation with radiology: I have reviewed the radiologist's reading. Independent Historian Clinical information obtained from an independent historian. History obtained from or confirmed by: Spouse External Record Review External record reviewed: Inpatient record Medications Administered Discontinued Medications Generic Name Dose Route Start Last Admin Trade Name Freq PRN Reason Stop Dose Admin Hydromorphone HCl 1 mg 05/26/24 19:57 05/26/24 20:23 Hydromorphone Hcl 1 Mg/Ml Syringe IVPUSH 05/26/24 19:58 1 mg ONCE ONE Administration Protocol Iohexol 100 ml 05/26/24 19:37 05/26/24 19:37 Iohexol 350 Mg/Ml 100 Ml Infus..Btl IV 05/26/24 19:38 85 ml ONCE ONE Administration Morphine Sulfate 4 mg 05/26/24 18:31 05/26/24 19:03 Morphine Sulfate 4 Mg/Ml Cartridge IVPUSH 05/26/24 18:32 4 mg ONCE ONE Administration Protocol Ondansetron HCl 4 mg 05/26/24 18:22 05/26/24 19:03 Ondansetron Hcl 4 Mg/2 Ml Vial IVPUSH 05/26/24 18:23 4 mg ONCE ONE Administration Pantoprazole Sodium 80 mg 05/26/24 18:22 05/26/24 19:03 Pantoprazole Sodium 40 Mg/10 Ml Vial IVPUSH 05/26/24 18:23 80 mg ONCE ONE Administration Critical Care Time Critical Care Time Critical Care Time: Yes Total Critical Care Time: 45 Attestation: review of records, platelet transfusion, medical consult admission I attest to this time spent taking care of the patient Discharge Plan Discharge Clinical Impression: UGIB (upper gastrointestinal bleed), Thrombocytopenia Abdominal pain Qualifiers: Abdominal location: right upper quadrant Qualified Code(s): R10.11 - Right upper quadrant pain Patient Disposition: Admitted As Inpatient Print Language: Surinamese
[2024-05-26 18:54] LABS: OBS Int Ctl Valid YES; OBS1 POSITIVE (NEGATIVE)
[2024-05-26 19:03] LABS: Basophils Percent Auto 0.4 % (0-2); Imm Gran Abs Auto 0.02 X10*3/uL (0.00-0.03); Lactic Acid 1.7 mmol/L (0.5-2.0); Mean Corpuscular HGB Conc 32.9 g/dl (31.0-36.0); Monocytes Absolute Auto 0.2 X10*3/uL (0.1-1.2); Red Cell Distribution Width 14.6 % (11.0-16.0); SCAN SMEAR FLAG 1
[2024-05-26] MEDS: ondansetron HCL 4 MG/2 ML VIAL IVPUSH (19:03)
[2024-05-26] MEDS: Pantoprazole Sodium 40 MG/10 ML VIAL 80 MG IVPUSH (19:03)
[2024-05-26] MEDS: Morphine Sulfate 4 MG/ML CARTRIDGE IVPUSH (19:03)
[2024-05-26 19:04] LABS: Eosinophils Percent Auto 0.9 % (0-4); Hematocrit 36.5 % (42.0-52.0); INTERNATIONAL NORM RATIO 1.2 (0.9-1.1); Imm Gran Pct Auto 0.9 % (0.0-0.4); Lymphocytes Absolute Auto 0.4 X10*3/uL (1.2-4.9); Lymphocytes Percent Auto 18.7 % (20-40); MANUAL DIFF FLAG SCAN; Mean Corpuscular Hemoglobin 28.9 pg (27.0-33.0); Monocytes Percent Auto 8.1 % (2-11); Neutrophils Absolute Auto 1.7 x10*3/uL (2.0-8.3); Prothrombin Time 14.2 SEC (11.1-13.3); Red Blood Count 4.15 X10*6/uL (4.60-5.80)
[2024-05-26 19:09] LABS: Alanine Aminotransferase 33 U/L (0-40); Albumin Level 3.7 g/dL (3.5-5.0); Alkaline Phosphatase 128 U/L (39-117); Anion Gap 11 (12-20); Aspartate Amino Transferase 38 U/L (5-37); Bilirubin Direct 0.4 mg/dL (0.0-0.5); Blood Urea Nitrogen 17 mg/dL (9-16); Calcium 9.6 mg/dL (8.4-10.2); Carbon Dioxide 26 mmol/L (22-29); Chloride 110 mmol/L (96-108); Creatinine Clr Calc Pharmacy 96.4; Estimated Glomerular Filt Rate > 60; Glucose Random 101 mg/dL (60-115); Lipase 29 U/L (8-78); Magnesium 1.9 mg/dL (1.6-2.6); Potassium 4.7 mmol/L (3.3-5.1); Sodium 142 mmol/L (135-145); Total Protein 7.5 g/dL (6.5-8.0)
[2024-05-26 19:12] LABS: Platelet Count 21 X10*3/uL (160-400); White Blood Count 2.4 X10*3/uL (4.8-10.8)
[2024-05-26 19:13] LABS: PLT ABN DIST 1
[2024-05-26 19:16] LABS: Troponin-I High Sensitivity 5.1 ng/L (<3.5-35.0)
[2024-05-26] MEDS: iohexoL 350 MG/ML 100 ML INFUS..BTL IV (19:37)
[2024-05-26 19:56] VITALS: BP 149/61; PULSE 73; RESP 12; TEMP 36.6; O2SAT 97
[2024-05-26 20:07] LABS: SLIDE REVIEW VERIFIED
[2024-05-26] MEDS: HYDROmorphone HCl 1 MG/ML SYRINGE IVPUSH (20:23)
--- NOTE | 2024-05-26 20:43 | PC.NURSE ---
Patient's family members left phone numbers for contact info Sherie [phone] Shane [phone]
[2024-05-26 20:53] LABS: Appearance Urine Clear; Color Urine Yellow; Glucose Urine UA Negative (Negative); Leukocyte Esterase Urine Negative (Negative); Nitrite Urine Negative (Negative); Specific Gravity - Urine >= 1.030 (1.005-1.025); Urine Blood Negative (Negative); Urine Ketones Negative (Negative); Urine Protein Negative (Neg-Trace)
--- NOTE | 2024-05-26 21:35 | PC.NURSE ---
Addendum entered by Svitlana Robles RN 05/26/24 22:01: Dr. Christensen, currently admitting patient aware platelets are on order from [facility] w/ no ETA available yet. Addendum entered by Svitlana Robles RN 05/26/24 21:48: Platelets are on order from the [facility], NO ETA available at this time. Original Note: Called blood bank RE: patient's platelets. Spoke to Priya, she's unsure if platelets are available/ blood bank tech stepped out for a minute, they will call back w/ update.
[2024-05-26 21:39] VITALS: BP 124/49; PULSE 67; RESP 7; TEMP 36.6; O2SAT 95
--- NOTE | 2024-05-26 21:54 | P.HPHOSP_ITS ---
History of Present Illness Date of Service: 05/26/24 Attending physician on admission: Mikey Lopez Chief Complaint: Abdominal pain Adelso Mcmanus is a 63 year old man with past medical history significant for liver cirrhosis secondary to hepatitis-C infection with portal hypertension/hypertensive gastropathy, gastric polyps + multiple variceal banding, chronic pancytopenia and essential hypertension was brought to the emergency department due to upper abdominal pain that started today associated with nausea and 1 event of coffee-ground vomiting (small quantity). Patient also reports brief episode of loss of consciousness upon walking upstairs and generalized dizziness. He reported diarrhea. He sustained a fall resulting in head trauma. Denied acute visual disturbances, speech difficulty, chest pain, shortness of breath, cough, fever or chills. He has an ongoing tobacco smoker. Denies alcohol abuse or illicit drug use. He does not take NSAIDs, aspirin or any other blood thinner. In ED, he was found to have normal vital signs. Blood workup is remarkable for pancytopenia which is basically at baseline. INR is 1.2. There are no significant electrolyte imbalances. AST is 38, ALT 33 and alk-phos 128. Lipase is normal. Stool for occult blood is positive. Abdomen pelvis CT scan showed liver cirrhosis, splenomegaly and partial thrombus of the portal vein. ED tx: Zofran 4 mg IV, Protonix 80 mg IV, morphine 4 mg IV Review of Systems 2 Review of Systems: All 12 systems were reviewed and normal except as noted in HPI. [facility] Medical History Esophageal varices Pancytopenia Iron deficiency anemia Cirrhosis Hepatitis C HBP (high blood pressure) Family History Maternal Grandmother Breast CA Uterus cancer Mother Primary lung cancer of unknown cell type Surgical History H/O left inguinal hernia repair H/O eye surgery History of esophagogastroduodenoscopy (EGD) H/O colonoscopy Social History Household Members: None Housing: Other Housing Other:: custodial Do you presently have visiting nurse or other home services: No Patient Tobacco Use Status: Current everyday Tobacco user Tobacco use type: Cigarette Cigarettes Per Day: 3 Smoked in Last 30 Days: Yes Second Hand Smoke Exposure: No Use of substances other than those prescribed or required for medical reasons: No Advance Directives: No Advance Directives Information Provided: No Do you have a plan to hurt others: No Plan service: No Current occupational status: retired Meds Allergies Allergy/AdvReac Type Severity Reaction Status Date / Time aspirin AdvReac Severe stomach Verified 05/26/24 18:32 bleeding NSAIDS (Non-Steroidal AdvReac Severe liver Verified 05/26/24 18:32 Anti-Inflamma concerns Home Medications ?Medication ?Instructions ?Recorded ?Confirmed ?Last Taken ?Type amlodipine 10 mg tablet 10 mg PO QAM 12/03/23 05/02/24 04/29/24 History ascorbic acid (vitamin C) 250 mg 250 mg PO QAM 12/03/23 05/02/24 Unknown History tablet ferrous sulfate 325 mg (65 mg 325 mg PO QAM 12/03/23 05/02/24 Unknown History iron) tablet furosemide 20 mg tablet 20 mg PO QAM 12/03/23 05/02/24 Unknown History albuterol sulfate 90 mcg/actuation 2 puff inhalation Q6H PRN wheezing 03/30/24 05/02/24 Unknown History aerosol inhaler (Ventolin HFA) Physical Exam 2 Vital Signs and Narrative: Vital Signs: Last Vital Signs Temp 97.9 F 05/26/24 21:39 Pulse 67 05/26/24 21:39 Resp 7 L 05/26/24 21:39 BP 124/49 L 05/26/24 21:39 Pulse Ox 95 05/26/24 21:39 O2 Del Method Room Air 05/26/24 21:39 BMI result Body Mass Index 33.6 Constitutional - Awake and Alert, No apparent distress. Pleasant. Cooperative. HEENT - Normocephalic. No scalp wounds. Heart - S1S2, RRR, No edema Lungs - Normal lung expansion, Normal respiratory effort, No respiratory distress, CTA bilaterally Abdomen - Normal bowel sounds. Nondistened. Epigastric tenderness. No rebound. No guarding. Extremities - Pitting edema to the lower extremities. Musculoskeletal - Normal inspection, normal ROM Skin - Warm/Dry Neurological - Alert & oriented x3. No focal weakness grossly noted. Normal speech. Psychological - Appropriate affect Results Labs 05/26/24 18:46 05/26/24 18:46 Labs: Laboratory Results - last 24 hr 05/26/24 05/26/24 05/26/24 18:46 19:13 20:40 MCV 88.0 MCH 28.9 MCHC 32.9 RDW 14.6 Plt Count 21 L MPV Not Reportable Immature Gran % (Auto) 0.9 H Neut % (Auto) 71.0 Lymph % (Auto) 18.7 L [place] % (Auto) 8.1 Eos % (Auto) 0.9 Baso % (Auto) 0.4 Lymph # (Auto) 0.4 L [place] # (Auto) 0.2 Eos # (Auto) 0.0 Baso # (Auto) 0.0 Abs Immat Gran (auto) 0.02 Absolute Neuts (auto) 1.7 L Absolute Nucleated RBC 0.000 Nucleated RBC % (auto) 0.0 Smear Tech's Comments VERIFIED PT 14.2 H INR 1.2 H APTT 31.0 Anion Gap 11 L Estim Creat Clear Calc 96.4 Estimated GFR > 60 Random Glucose 101 Lactic Acid 1.7 Calcium 9.6 Magnesium 1.9 Total Bilirubin 1.0 Direct Bilirubin 0.4 AST 38 H ALT 33 Alkaline Phosphatase 128 H Troponin I High Sens 5.1 Total Protein 7.5 Albumin 3.7 Lipase 29 Urine Color Yellow Urine Appearance Clear Urine pH 6.0 Ur Specific [place] >= 1.030 H Urine Protein Negative Urine Glucose (UA) Negative Urine Ketones Negative Urine Blood Negative Urine Nitrite Negative Ur Leukocyte Esterase Negative Stool Occult Blood POSITIVE Blood Type O Negative Antibody Screen NEGATIVE Imaging Radiologist's Impressions: Impressions Abdomen/Pelvis CT 05/26/24 19:26 IMPRESSION: 1. No acute abnormality CT scan abdomen pelvis. 2. Cirrhosis of liver. Splenomegaly. Partial thrombosis of the portal vein. Fleischner guidelines were followed. Electronically signed by: Elder Alicia MD 05/26/2024 09:05 PM EDT Assessment and Plan (1) UGIB (upper gastrointestinal bleed): Status: Acute (2) Pancytopenia: Status: Acute (3) Cirrhosis: Qualifiers: Hepatic cirrhosis type: unspecified hepatic cirrhosis Ascites presence: without ascites Qualified Code(s): K74.60 - Unspecified cirrhosis of liver Status: Acute (4) Hepatitis C virus infection: Qualifiers: Viral hepatitis chronicity: chronic Hepatic coma status: without hepatic coma Qualified Code(s): B18.2 - Chronic viral hepatitis C Status: Acute Plan Adelso Mcmanus is a 63 y/o man with PMHx significant for liver cirrhosis secondary to hepatitis-C infection with portal hypertension/hypertensive gastropathy, gastric polyps + multiple variceal banding admitted with: * Coffee-ground emesis/upper GI bleeding. Admit to hospitalist service. NPO. Check CBC in 4 hours. Platelet transfusion. Continue Protonix 40 mg IV every 12 hours. To consider octreotide. GI consult. * Head trauma. Head CT scan -official results pending. * Chronic pancytopenia. Continue to monitor. * Essential hypertension. Continue home medications. DVT prophylaxis: SCDs Code status: Full Patient will need hospitalization for at least 2 midnights for upper GI bleeding treatment with close monitoring of vital signs and blood workup as well as evaluation by subspecialty. Quality Stroke Does the patient have a stroke diagnosis?: No VTE Prior VTE?: No VTE Risk Level:: Medical - moderate - high VTE Device Contraindication: N/A - Device Ordered VTE Drug Contraindication: Treatment Not Indicated
[2024-05-26] MEDS: Octreotide Acetate 100 MCG/ML AMPUL IVPUSH (22:44)
[2024-05-26 23:36] VITALS: BP 130/53; PULSE 61; RESP 13; TEMP 36.6; O2SAT 96
[2024-05-27] VITALS (9 sets, daily range): BP systolic 120–144; BP diastolic 56–68; PULSE 52–64; RESP 16–20; TEMP 36–36.7; O2SAT 96–98; BMI 32.3
[2024-05-27 00:40] LABS: PLT ABN DIST 1
[2024-05-27 00:42] LABS: Hematocrit 34.6 % (42.0-52.0); Hemoglobin 11.4 g/dl (14.0-18.0); Mean Corpuscular HGB Conc 32.9 g/dl (31.0-36.0); Mean Corpuscular Hemoglobin 28.9 pg (27.0-33.0); Mean Corpuscular Volume 87.6 fL (80.0-98.0); Red Blood Count 3.95 X10*6/uL (4.60-5.80); Red Cell Distribution Width 14.6 % (11.0-16.0); White Blood Count 1.9 X10*3/uL (4.8-10.8)
[2024-05-27 01:02] LABS: Platelet Count 21 X10*3/uL (160-400)
[2024-05-27] MEDS: 0.9 % Sodium Chloride Flush 3 ML SYRINGE IVFLUSH ×2 (03:12→09:06)
[2024-05-27 06:22] LABS: INTERNATIONAL NORM RATIO 1.2 (0.9-1.1); Prothrombin Time 14.5 SEC (11.1-13.3)
[2024-05-27 06:24] LABS: Hematocrit 34.6 % (42.0-52.0); Hemoglobin 11.2 g/dl (14.0-18.0); Mean Corpuscular HGB Conc 32.4 g/dl (31.0-36.0); Mean Corpuscular Hemoglobin 28.9 pg (27.0-33.0); Mean Corpuscular Volume 89.2 fL (80.0-98.0); Red Blood Count 3.88 X10*6/uL (4.60-5.80); Red Cell Distribution Width 14.8 % (11.0-16.0)
[2024-05-27 06:27] LABS: Alanine Aminotransferase 29 U/L (0-40); Albumin Level 3.4 g/dL (3.5-5.0); Alkaline Phosphatase 109 U/L (39-117); Anion Gap 10 (12-20); Aspartate Amino Transferase 31 U/L (5-37); Bilirubin Total 1.1 mg/dL (0.0-1.0); Blood Urea Nitrogen 16 mg/dL (9-16); Calcium 8.7 mg/dL (8.4-10.2); Carbon Dioxide 27 mmol/L (22-29); Chloride 110 mmol/L (96-108); Estimated Glomerular Filt Rate > 60; Glucose Random 96 mg/dL (60-115); Platelet Count 22 X10*3/uL (160-400); Potassium 4.5 mmol/L (3.3-5.1); Sodium 142 mmol/L (135-145); Total Protein 6.7 g/dL (6.5-8.0); White Blood Count 2.1 X10*3/uL (4.8-10.8)
[2024-05-27] MEDS: Pantoprazole Sodium 40 MG/10 ML VIAL IVPUSH ×2 (09:01→20:22)
[2024-05-27] MEDS: Octreotide Acetate 500 MCG in 0.9 % Sodium Chloride 500 ML 50.1 MCG IVCONT ×2 (09:02→21:26)
--- NOTE | 2024-05-27 09:49 | PHA.MEDREC ---
Addendum entered by Nancy Steele RPh 05/27/24 10:12: reviewed by [facility]. Original Note: Pharmacy Consult ? Medication Reconciliation Pharmacy has completed the medication reconciliation. Spoke to patients through green building energy engineer service (Tushar)to confirm med list. Patient is a poor historian and he doesn't have a list of medications with him. He states he doesn't know what he takes. He lives in a [facility] and no one know what medications he takes. Called contact Sherie ([phone]) she states patient should have a list of medications with him from the [facility]. Utilized claims and called [facility] pharmacy for a med box list to confirm medications. Omeprazle 20 mg bid and Sucralafte 10 ml qid where last filled 04/29/24 for only a 14 day supply and no active refills available. Ventolin HFA was last filled Jun 2023 no active refills. So, left off med rec.
--- NOTE | 2024-05-27 11:49 | HO.PM.IMPN ---
Subjective Subjective Date of Service: 05/27/24 Interval History: gib Review of Systems no over bleeding last night h/h stable has some episgastric discomfort but improving ( in comparion to yesterday). Physical Exam Vital Signs: Vital Signs: Last Vital Signs Temp 96.8 F 05/27/24 07:46 Pulse 58 05/27/24 07:46 Resp 16 05/27/24 07:46 BP 144/67 H 05/27/24 07:46 Pulse Ox 98 05/27/24 07:46 O2 Del Method Room Air 05/27/24 07:46 BMI result Body Mass Index 32.3 Appearance: Alert.? Oriented X3. cvs: rrr, [id number]. res: clear to auscultation ,no rales or wheezing abd: no rebound or guarding ,mild epigastric discomfort, bs present. ext pulses present , no cyanosis. neuro: axo3 , nonfocal. Objective Data Active Medications Hydromorphone HCl (Hydromorphone Hcl 0.5 Mg/0.5 Ml Syringe) 0.5 mg IVPUSH Q3H PRN; Protocol PRN Reason: Pain, Severe (Pain Scale 7-10) Octreotide Acetate 500 mcg/ (Sodium Chloride) 501 mls @ 50.1 mls/hr IVCONT .Q10H [facility] Last Admin: 05/27/24 09:02 Dose: 50 mcg/hr, 50.1 mls/hr Documented By: ROWAN Pantoprazole Sodium (Pantoprazole Sodium 40 Mg/10 Ml Vial) 40 mg IVPUSH Q12H [facility] Last Admin: 05/27/24 09:01 Dose: 40 mg Documented By: ROWAN Sodium Chloride (0.9 % Sodium Chloride Flush 3 Ml Syringe) 3 ml IVFLUSH QSHIFT [facility] Last Admin: 05/27/24 09:06 Dose: 3 ml Documented By: ROWAN Labs 05/27/24 05:52 05/27/24 05:52 Labs: Laboratory Results - last 24 hr 05/26/24 05/26/24 05/26/24 18:46 19:13 20:40 MCV 88.0 MCH 28.9 MCHC 32.9 RDW 14.6 Plt Count 21 L MPV Not Reportable Immature Gran % (Auto) 0.9 H Neut % (Auto) 71.0 Lymph % (Auto) 18.7 L [place] % (Auto) 8.1 Eos % (Auto) 0.9 Baso % (Auto) 0.4 Lymph # (Auto) 0.4 L [place] # (Auto) 0.2 Eos # (Auto) 0.0 Baso # (Auto) 0.0 Abs Immat Gran (auto) 0.02 Absolute Neuts (auto) 1.7 L Absolute Nucleated RBC 0.000 Nucleated RBC % (auto) 0.0 Smear Tech's Comments VERIFIED PT 14.2 H INR 1.2 H APTT 31.0 Anion Gap 11 L Estim Creat Clear Calc 96.4 Estimated GFR > 60 Random Glucose 101 Lactic Acid 1.7 Calcium 9.6 Magnesium 1.9 Total Bilirubin 1.0 Direct Bilirubin 0.4 AST 38 H ALT 33 Alkaline Phosphatase 128 H Troponin I High Sens 5.1 Total Protein 7.5 Albumin 3.7 Lipase 29 Urine Color Yellow Urine Appearance Clear Urine pH 6.0 Ur Specific [place] >= 1.030 H Urine Protein Negative Urine Glucose (UA) Negative Urine Ketones Negative Urine Blood Negative Urine Nitrite Negative Ur Leukocyte Esterase Negative Stool Occult Blood POSITIVE Blood Type O Negative Antibody Screen NEGATIVE 05/27/24 05/27/24 00:35 05:52 MCV 87.6 89.2 MCH 28.9 28.9 MCHC 32.9 32.4 RDW 14.6 14.8 Plt Count 21 L 22 L MPV Not Reportable Not Reportable Immature Gran % (Auto) Neut % (Auto) Lymph % (Auto) [place] % (Auto) Eos % (Auto) Baso % (Auto) Lymph # (Auto) [place] # (Auto) Eos # (Auto) Baso # (Auto) Abs Immat Gran (auto) Absolute Neuts (auto) Absolute Nucleated RBC 0.000 0.000 Nucleated RBC % (auto) 0.0 0.0 Smear Tech's Comments PT 14.5 H INR 1.2 H APTT Anion Gap 10 L Estim Creat Clear Calc 103.0 Estimated GFR > 60 Random Glucose 96 Lactic Acid Calcium 8.7 D Magnesium 2.0 Total Bilirubin 1.1 H Direct Bilirubin AST 31 ALT 29 Alkaline Phosphatase 109 Troponin I High Sens Total Protein 6.7 Albumin 3.4 L Lipase Urine Color Urine Appearance Urine pH Ur Specific Outlook Urine Protein Urine Glucose (UA) Urine Ketones Urine Blood Urine Nitrite Ur Leukocyte Esterase Stool Occult Blood Blood Type Antibody Screen Assessment and Plan (1) Abdominal pain: Status: Acute (2) Thrombocytopenia: Status: Acute (3) UGIB (upper gastrointestinal bleed): Status: Acute Assessment and Plan: 63 y/o man with PMHx significant for liver cirrhosis secondary to hepatitis-C infection with portal hypertension/hypertensive gastropathy, gastric polyps + multiple variceal banding admitted with: Coffee-ground emesis/upper GI bleeding. moniter h/h,currently stable h/h Platelet transfusion. Continue Protonix 40 mg IV every 12 hours,octreotide. GI consult- d/w Gi-start clears , moniter h/h Head trauma. Head CT scan -negative. Chronic pancytopenia. Continue to monitor. Essential hypertension. Continue coreg, will check with pharmacy patient is also on nadolol DVT prophylaxis: SCDs. Code status: Full ongoing need for hospitlisation for upper GI bleeding treatment with close monitoring of vital signs, h/h monitering ,platelet transfusion and blood workup as well as evaluation by subspecialty. Quality Stroke Does the patient have a stroke diagnosis?: No VTE Prior VTE?: No VTE Risk Level:: Medical - moderate - high VTE Device Contraindication: N/A - Device Ordered VTE Drug Contraindication: Treatment Not Indicated
--- NOTE | 2024-05-27 11:57 | P.CNGI_ITS ---
History of Present Illness Data of Consult Service Date: 05/27/24 Requesting physician: Sandra Parra Primary Care Provider: Leta Dick MD HPI Reason for consult: Coffee grounds emesis This is a 63-year-old gentleman with past medical history of chronic HCV (Epclusa completed, SVR12 pending) that has led to cirrhosis complicated by portal hypertension, history of large varices status post EBL 04/29, who presented to the hospital for dark emesis. Patient reports going to the [place] on Sunday, where he had a mechanical fall. He thinks he may have hit his head. Since then, he has been having frequent lightheadedness as well as nausea. Had 2 episodes of vomiting as a result yesterday. He thinks he saw small amount of coffee-ground the 2nd vomiting. He did have a CT head performed in the emergency room last night that was normal. Vitals on presentation have been normal. Labs significant for hemoglobin 11.2, which has not drop significantly from before. LFTs at his previous baseline. Currently reports feeling well. Does not report any abdominal pain, nausea or any further vomiting. Bowel movement yesterday was formed. Review of Systems 2 Review of Systems: Yes all other systems are reviewed and are negative PMFSH Past Medical History Medical History Esophageal varices Pancytopenia Iron deficiency anemia Cirrhosis Hepatitis C HBP (high blood pressure) Family History Family History Maternal Grandmother Breast CA Uterus cancer Mother Primary lung cancer of unknown cell type Surgical History Surgical History H/O left inguinal hernia repair H/O eye surgery History of esophagogastroduodenoscopy (EGD) H/O colonoscopy Social History Social History Household Members: None Household Members Other:: skilled nursing Housing: Other Housing Other:: skilled nursing Do you presently have visiting nurse or other home services: No Patient Tobacco Use Status: Current everyday Tobacco user Tobacco use type: Cigarette Cigarette Packs Per Day: 1 Smoked in Last 30 Days: Yes Second Hand Smoke Exposure: No Use of substances other than those prescribed or required for medical reasons: No Currently Displaying Signs/Symptoms of Drug Intoxication Withdrawal: No Have you been hit, kicked, punched, or otherwise hurt by someone within the past year? If so, by whom?: No Do you feel safe in your current relationship?: No Current Relationship Is there a partner from a previous relationship who is making you feel unsafe now?: No Are you made to feel afraid or neglected: No Advance Directives: No Advance Directives Information Provided: No Do you have a plan to hurt others: No Plan Nutrition Risks: No Nutritional Risk service: No Current occupational status: retired Meds Allergies Allergy/AdvReac Type Severity Reaction Status Date / Time aspirin AdvReac Severe stomach Verified 05/26/24 18:32 bleeding NSAIDS (Non-Steroidal AdvReac Severe liver Verified 05/26/24 18:32 Anti-Inflamma concerns Active Medications: Current Medications Carvedilol (Carvedilol 3.125 Mg Tablet) 3.125 mg PO BID [facility]; Protocol Hydromorphone HCl (Hydromorphone Hcl 0.5 Mg/0.5 Ml Syringe) 0.5 mg IVPUSH Q3H PRN; Protocol PRN Reason: Pain, Severe (Pain Scale 7-10) Octreotide Acetate 500 mcg/ (Sodium Chloride) 501 mls @ 50.1 mls/hr IVCONT .Q10H [facility] Last Admin: 05/27/24 09:02 Dose: 50 mcg/hr, 50.1 mls/hr Pantoprazole Sodium (Pantoprazole Sodium 40 Mg/10 Ml Vial) 40 mg IVPUSH Q12H [facility] Last Admin: 05/27/24 09:01 Dose: 40 mg Sodium Chloride (0.9 % Sodium Chloride Flush 3 Ml Syringe) 3 ml IVFLUSH QSHIFT [facility] Last Admin: 05/27/24 09:06 Dose: 3 ml Home Medications ?Medication ?Instructions ?Recorded ?Confirmed ?Last Taken ?Type amlodipine 10 mg tablet 10 mg PO DAILY 12/03/23 05/27/24 04/29/24 History ascorbic acid (vitamin C) 250 mg 250 mg PO DAILY 12/03/23 05/27/24 Unknown History tablet ferrous sulfate 325 mg (65 mg 325 mg PO DAILY 12/03/23 05/27/24 Unknown History iron) tablet furosemide 20 mg tablet 20 mg PO DAILY 12/03/23 05/27/24 Unknown History nadolol 40 mg tablet 40 mg PO DAILY 05/27/24 05/27/24 Unknown History Physical Exam 2 Vital Signs: Vital Signs: Last Vital Signs Temp 96.8 F 05/27/24 07:46 Pulse 58 05/27/24 07:46 Resp 16 05/27/24 07:46 BP 144/67 H 05/27/24 07:46 Pulse Ox 98 05/27/24 07:46 O2 Del Method Room Air 05/27/24 07:46 BMI result Body Mass Index 32.3 NAD Nonicteric artificial L eye ABd soft, nontender, nondistended No SAYDA Results Labs 05/27/24 11:55 05/27/24 05:52 Labs: Short CBC 05/26/24 05/27/24 05/27/24 Range/Units 18:46 00:35 05:52 WBC 2.4 L 1.9 L 2.1 L (4.8-10.8) X10*3/uL Hgb 12.0 L 11.4 L 11.2 L (14.0-18.0) g/dl Hct 36.5 L 34.6 L 34.6 L (42.0-52.0) % Plt Count 21 L 21 L 22 L (160-400) X10*3/uL BMP 05/26/24 05/27/24 18:46 05:52 Sodium 142 142 Potassium 4.7 4.5 Chloride 110 H 110 H Carbon Dioxide 26 27 BUN 17 H 16 Creatinine 0.97 0.89 Calcium 9.6 8.7 D Liver Function 05/26/24 05/27/24 Range/Units 18:46 05:52 Total Bilirubin 1.0 1.1 H (0.0-1.0) mg/dL Direct Bilirubin 0.4 (0.0-0.5) mg/dL AST 38 H 31 (5-37) U/L ALT 33 29 (0-40) U/L Alkaline Phosphatase 128 H 109 (39-117) U/L Albumin 3.7 3.4 L (3.5-5.0) g/dL Urine 05/26/24 Range/Units 20:40 Urine Color Yellow Urine Appearance Clear Urine pH 6.0 (5.0-9.0) Ur Specific [place] >= 1.030 H (1.005-1.025) Urine Protein Negative (Neg-Trace) mg/dL Urine Glucose (UA) Negative (Negative) mg/dL Assessment and Plan (1) Vomiting: Status: Acute (2) Pancytopenia: Status: Acute (3) Cirrhosis: Status: Acute Plan Current presentation does not appear to be consistent with variceal bleeding. No indication for emergent upper endoscopy and elevation at this time. Likely 2/2 vomiting from mild concussion with oozing from PHG vs small MWT. Plan: -can advance diet to clears -monitor CBC b.i.d. -if no evidence of overt GI bleeding over the next 24h, and H/H remains stable, diet can be advanced -patient is scheduled for follow-up endoscopy for complete obliteration of varices in July. Procedures Date of Service Date of Service: 05/27/24
[2024-05-27 12:10] LABS: Hematocrit 35.9 % (42.0-52.0)
--- NOTE | 2024-05-27 13:50 | PM.HEMONCCN ---
Subjective - Subjective Chief complaint: Consult for: Pancytopenia. GI bleeding. Thrombocytopenia. Patient: known to practice within the last 3 years Consult date: 05/27/24 Requesting Physician: sly Primary Care Provider: Leta Dick MD Family Provider: Ann Piña. Medical Summary: DIAGNOSIS: 1. PANCYTOPENIA. 2. THROMBOCYTOPENIA. 3. GI BLEEDING. HPI - Consult Narrative Reason for consult: Consult for: 1. GI bleeding. 2. Pancytopenia. Narrative: Adelso Mcmanus is a 63 year old gentleman , admitted with Adelso Mcmanus is a 63 year old man with past medical history significant for liver cirrhosis secondary to hepatitis-C infection with portal hypertension/hypertensive gastropathy, gastric polyps + multiple variceal banding, chronic pancytopenia and essential hypertension was brought to the emergency department due to upper abdominal pain that started today associated with nausea and 1 event of coffee-ground vomiting (small quantity). Patient also reports brief episode of loss of consciousness upon walking upstairs and generalized dizziness. He reported diarrhea. He sustained a fall resulting in head trauma. Denied acute visual disturbances, speech difficulty, chest pain, shortness of breath, cough, fever or chills. He has an ongoing tobacco smoker. Denies alcohol abuse or illicit drug use. He does not take NSAIDs, aspirin or any other blood thinner. In ED, he was found to have normal vital signs. Blood workup is remarkable for pancytopenia which is basically at baseline. INR is 1.2. There are no significant electrolyte imbalances. AST is 38, ALT 33 and alk-phos 128. Lipase is normal. Stool for occult blood is positive. Abdomen pelvis CT scan showed liver cirrhosis, splenomegaly and partial thrombus of the portal vein. ED tx: Zofran 4 mg IV, Protonix 80 mg IV, morphine 4 mg IV Review of Systems Review of Systems: All 12 systems were reviewed and normal except as noted in HPI. [facility] Medical History: Esophageal varices Pancytopenia Iron deficiency anemia Cirrhosis Hepatitis C: He has history of hepatitis-C genotype 1A. Treatment was offered. Epclusa versus Harvoni times 12 weeks. He completed that. HBP (high blood pressure). On 11/20 he had an upper endoscopy by Dr. Antonio. He received platelets prior to it, for a platelet count of 37. The procedure was uneventful. CBC from 04/06/2023: WBC 2.4, HGB 12.3, HCT 39.5, MCV 85. Platelets 30. Hepatitis B profile: Armstrong zone. Hepatitis-C profile positive. Viral load: 765595. Lo.33. Ultrasound of the abdomen from 04/13 revealed: 1. Nonspecific region of borderline focal wall thickening along the anterior aspect of the gallbladder wall measuring up to 4 mm. 2. Simple appearing cystic focus in the right renal upper pole measuring up to 1.6 cm, which does not require follow-up. 3. Enlarged spleen measuring up to 22.4 cm. Surgical History: H/O left inguinal hernia repair H/O eye surgery History of esophagogastroduodenoscopy (EGD) H/O colonoscopy Family History: Maternal Grandmother Breast CA Uterus cancer Mother Primary lung cancer of unknown cell type. Mom was diagnosed with lung cancer recently. 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 He is single. He has no children. He smoked pack a day. Now down to 7-8 cigarettes. Denies alcohol. ROS: He is feeling tired at times. He denies any easy bruising nor systemic bleeding. He denies any fever but gets chills. He gets headaches at times. He gets dizzy sometimes. He gets occassional chest pain. He has pain in his right upper quadrant. He had nausea and vomiting, coffee grounds.. His bowels are constipated. Sometimes his stools dark.. Appetite has been good, his weight is stable. He denies any muscle pain.. He denies focal weakness. He has depression. He denies any rashes. [facility] Medical History: Medical History (Last Reviewed 05/26/24 @ 19:02 by Peggy Renee DO) Cirrhosis Esophageal varices HBP (high blood pressure) Hepatitis C Iron deficiency anemia Pancytopenia Family History: Family History (Last Reviewed 05/02/24 @ 13:53 by Arnie Huertas) Maternal Grandmother Breast CA Uterus cancer Mother Primary lung cancer of unknown cell type Surgical History: Surgical History (Last Reviewed 05/26/24 @ 19:02 by Peggy Renee DO) H/O colonoscopy H/O eye surgery H/O left inguinal hernia repair History of esophagogastroduodenoscopy (EGD) Social History: Social History (Last Reviewed 05/26/24 @ 19:02 by Peggy Renee DO) Living Situation History: Household Members: None Household Members Other:: intermediate Housing: Other Housing Other:: intermediate Do you presently have visiting nurse or other home services: No Tobacco History: Patient Tobacco Use Status: Current everyday Tobacco Tobacco use type: Cigarette Cigarette Packs Per Day: 1 Second Hand Smoke Exposure: No Occupation Assessmet: service: No Current occupational status: retired Home Medications and Allergies Current Medications: Current Medications Carvedilol (Carvedilol 3.125 Mg Tablet) 3.125 mg PO BID LALI; Protocol Hydromorphone HCl (Hydromorphone Hcl 0.5 Mg/0.5 Ml Syringe) 0.5 mg IVPUSH Q3H PRN; Protocol PRN Reason: Pain, Severe (Pain Scale 7-10) Octreotide Acetate 500 mcg/ (Sodium Chloride) 501 mls @ 50.1 mls/hr IVCONT .Q10H [facility] Last Admin: 05/27/24 09:02 Dose: 50 mcg/hr, 50.1 mls/hr Pantoprazole Sodium (Pantoprazole Sodium 40 Mg/10 Ml Vial) 40 mg IVPUSH Q12H [facility] Last Admin: 05/27/24 09:01 Dose: 40 mg Sodium Chloride (0.9 % Sodium Chloride Flush 3 Ml Syringe) 3 ml IVFLUSH QSHIFT [facility] Last Admin: 05/27/24 09:06 Dose: 3 ml Home Medications ?Medication ?Instructions ?Recorded ?Confirmed ?Type amlodipine 10 mg tablet 10 mg PO DAILY 12/03/23 05/27/24 History ascorbic acid (vitamin C) 250 mg 250 mg PO DAILY 12/03/23 05/27/24 History tablet ferrous sulfate 325 mg (65 mg 325 mg PO DAILY 12/03/23 05/27/24 History iron) tablet furosemide 20 mg tablet 20 mg PO DAILY 12/03/23 05/27/24 History nadolol 40 mg tablet 40 mg PO DAILY 05/27/24 05/27/24 History Allergies Allergy/AdvReac Type Severity Reaction Status Date / Time aspirin AdvReac Severe stomach Verified 05/26/24 18:32 bleeding NSAIDS (Non-Steroidal AdvReac Severe liver Verified 05/26/24 18:32 Anti-Inflamma concerns Physical Exam Vital signs: Vital Signs Temp 97.9 F 05/27/24 12:32 Pulse 53 05/27/24 12:32 Resp 18 05/27/24 12:32 BP 131/61 05/27/24 12:32 Pulse Ox 98 05/27/24 07:46 O2 Del Method Room Air 05/27/24 07:46 Intake & Output 05/26/24 05/27/24 05/27/24 18:59 06:59 18:59 Intake Total 260 / 260 349 / 349 Output Total 325 / 325 Balance -65 / -65 349 / 349 Urine Output (Average ml/kg/hr) 0.27 0.27 Intake: Intake (Blood Product) Amount 260 / 260 249 / 249 Plt Aph Pas Pathreduced(E8341) 260 / 260 Unit [id number] Plt Aph Pas Pathreduced(E8341) 249 / 249 Unit [id number] Intake, IV Amount 100 / 100 0.9 % Sodium Chloride 100 ml @ 100 / 100 100 mls/hr IV ONCE ONE Rx#: [id number] Output: Output, Urine Amount 325 / 325 Other: Number of Unmeasured Voids 1 Last Bowel Movement 05/26/24 Weight 106.3 kg 102.2 kg Weight in Grams [id number] Weight 102.2 kg Hem/Onc Consult Result - Labs CBC & Chem 7: 05/28/24 12:29 05/27/24 05:52 Labs: Short CBC 05/26/24 05/27/24 05/27/24 Range/Units 18:46 00:35 05:52 WBC 2.4 L 1.9 L 2.1 L (4.8-10.8) X10*3/uL Hgb 12.0 L 11.4 L 11.2 L (14.0-18.0) g/dl Hct 36.5 L 34.6 L 34.6 L (42.0-52.0) % Plt Count 21 L 21 L 22 L (160-400) X10*3/uL 05/27/24 Range/Units 11:55 WBC (4.8-10.8) X10*3/uL Hgb 12.0 L (14.0-18.0) g/dl Hct 35.9 L (42.0-52.0) % Plt Count (160-400) X10*3/uL BMP 05/26/24 05/27/24 18:46 05:52 Sodium 142 142 Potassium 4.7 4.5 Chloride 110 H 110 H Carbon Dioxide 26 27 BUN 17 H 16 Creatinine 0.97 0.89 Calcium 9.6 8.7 D Liver Function 05/26/24 05/27/24 Range/Units 18:46 05:52 Total Bilirubin 1.0 1.1 H (0.0-1.0) mg/dL Direct Bilirubin 0.4 (0.0-0.5) mg/dL AST 38 H 31 (5-37) U/L ALT 33 29 (0-40) U/L Alkaline Phosphatase 128 H 109 (39-117) U/L Albumin 3.7 3.4 L (3.5-5.0) g/dL Urine 05/26/24 Range/Units 20:40 Urine Color Yellow Urine Appearance Clear Urine pH 6.0 (5.0-9.0) Ur Specific Moyers >= 1.030 H (1.005-1.025) Urine Protein Negative (Neg-Trace) mg/dL Urine Glucose (UA) Negative (Negative) mg/dL Assessment and Plan Patient Active problem list reviewed?: Yes (1) Pancytopenia Status: Acute Assessment and plan: Adelso Mcmanus is a 63 y/o man with PMHx significant for liver cirrhosis secondary to hepatitis-C infection with portal hypertension/hypertensive gastropathy, gastric polyps + multiple variceal banding admitted with: Abdominal pain, nausea and upper GI bleeding. CBC from 04/06/2023: WBC 2.4, HGB 12.3, HCT 39.5, MCV 85. Platelets 30. Hepatitis B profile: Armstrong zone. Hepatitis-C profile positive. Viral load: 701325. Lo.33. Ultrasound of the abdomen from 04/13/23 revealed: 1. Nonspecific region of borderline focal wall thickening along the anterior aspect of the gallbladder wall measuring up to 4 mm. 2. Simple appearing cystic focus in the right renal upper pole measuring up to 1.6 cm, which does not require follow-up. 3. Enlarged spleen measuring up to 22.4 cm. DIFFERENTIAL DIAGNOSIS: 1. HYPERSPLENISM RELATED TO HEPATITIS-C: This is most likely. Ultrasound did revealed enlarged spleen. 2. RELATED TO MEDICATIONS: 3. COLLAGEN VASCULAR DISORDER: SLE versus rheumatoid arthritis. 4. MYELO INFILTRATIVE DISORDER: MDS versus multiple myeloma versus lymphoma. 04/23/23: WBC 2.7. I proceeded with further evaluation. Checked collagen vascular profile:ESR 8, RA:<13 , DAVID: Negative. Checked LDH:201, SIEP: No monoclonal spike. l checked AFP: 3.7, since hepatitis C he can sometimes lead to hepatoma. Ferritin: 15. He does have Hepatitis C. I referred him to GI. Note from Dr. Antonio from 12/01: 1. Chronic HCV genotype 1a Treatment naive: However he will be starting on treatment in the near future. HBV core Ab pos, HBV surface Ag negative Appears to have cirrhosis 2/2 chronic HCV with CSPH - s/p EGD with variceal banding. - Will need treatment with mavyret x8 w vs epclusa x12w vs harvoni x 12w. - Med list reviewed and no anticipated interactions to either. - Pt advised that office and/or specialty pharmacy will reach out for med delivery once insurance approval acquired. - He will need close monitoring of LFTs on this due to HBV core Ab + status. LFTs to be monitored q 4w. - Repeat EGD for variceal surveillance done on Apr 29, 2024. - Repeat US due for HCC screening, from 12/11/23: Increased echo texture c/w hepatocellualr disease/cirrhosis. Splenomegaly. - No evidence of ascites or HE on assessment. He was treated with Epclusa between December and March of this year. 2. Hyperplastic gastric polyps. No dysplasia noted. H pylori negative. He had an EGD booked on Apr 29, 2024. - The varices were ligated. He also needed complete resection of larger polyps, and mapping bx. However these were postponed till his next endoscopy in a couple of months time. Database: From 04/29/24: CBC: WBC 2.5, HGB 12.2, HCT 37.2, PLT 25. LFTs 1.1/118/35/29. CBC from 11/18: WBC 2.7, HGB 12.7, HCT 39, PLT 31. He is now admitted with GI bleeding. Was seen by Dr. Antonio. She recommended careful monitoring for further bleeding. If self-limited he can wait till his endoscopy in July. Meanwhile he is being transfused with platelets. PLAN: Will monitor his blood count over time. Will arrange for platelet transfusion prior to his next endoscopy in July. He has completed hepatitis-C therapy. To have repeat viral load and re-imaging in June. All his questions were answered to satisfaction. Thank you, Cc: Dr. Ann Piña. - Time Spent With Patient Time Spent with Patient (in minutes): 30
--- NOTE | 2024-05-27 14:56 | MHC.CM.PN ---
Pt lives in a halfway, he is able to return there at DC. HCP on file and confirmed: Eugenia. Pt does not use home health services or DME. PCP confirmed: Dr. Yuriy Dick. Transport home will be by HCP. DCP: return to halfway. CM to follow for DC needs.
[2024-05-27 18:36] LABS: Hematocrit 37.6 % (42.0-52.0); Hemoglobin 12.1 g/dl (14.0-18.0)
[2024-05-27] MEDS: carvediloL 3.125 MG TABLET PO (20:22)
[2024-05-28 03:46] VITALS: BP 133/60; PULSE 64; RESP 18; TEMP 36.9; O2SAT 97
[2024-05-28 06:19] LABS: Hematocrit 32.9 % (42.0-52.0); Hemoglobin 10.7 g/dl (14.0-18.0)
[2024-05-28 07:11] VITALS: BP 133/61; PULSE 61; RESP 17; TEMP 36.2; O2SAT 94
[2024-05-28] MEDS: Pantoprazole Sodium 40 MG/10 ML VIAL IVPUSH (07:41)
[2024-05-28] MEDS: carvediloL 3.125 MG TABLET PO (07:41)
[2024-05-28] MEDS: Octreotide Acetate 500 MCG in 0.9 % Sodium Chloride 500 ML 50.1 MCG IVCONT (07:41)
[2024-05-28 07:57] LABS: Platelet Count 27 X10*3/uL (160-400)
--- NOTE | 2024-05-28 12:26 | PM.DS ---
DS: Providers Provider Date of Service: 05/28/24 Date of admission: 05/26/24 21:54 Date of discharge: 05/28/24 Primary care physician: Leta Dick MD Consults: 05/26/24 21:22 Consult to Gastroenterology Stat Consulting Provider: Yajaira Antonio Reason for consultation: dark stools, vomit dark x 1, guiac positive stool, partial PV thrombus Has provider been notified: No 05/26/24 22:02 Consult to Gastroenterology Routine Consulting Provider: Dieter Villaseñor Reason for consultation: Coffee-ground emesis Has provider been notified: Yes 05/27/24 10:30 Consult to Hematology / Oncology Routine Consulting Provider: [facility] Oncology/Hematology Reason for consultation: Gi bleed/ pancytopenia Has provider been notified: No Attending physician on discharge: Sandra Parra Discharging clinician: Sandra Parra DS: Diagnosis Discharge Diagnosis (1) Pancytopenia: Status: Acute DS: Summary Hospital Course Hospital Course: 63 year old man with past medical history significant for liver cirrhosis secondary to hepatitis-C infection with portal hypertension/hypertensive gastropathy, gastric polyps + multiple variceal banding, chronic pancytopenia and essential hypertension was brought to the emergency department due to upper abdominal pain that started today associated with nausea and 1 event of coffee-ground vomiting (small quantity). Patient also reports brief episode of loss of consciousness upon walking upstairs and generalized dizziness. He reported diarrhea. He sustained a fall resulting in head trauma. Denied acute visual disturbances, speech difficulty, chest pain, shortness of breath, cough, fever or chills. He has an ongoing tobacco smoker. Denies alcohol abuse or illicit drug use. He does not take NSAIDs, aspirin or any other blood thinner. In ED, he was found to have normal vital signs. Blood workup is remarkable for pancytopenia which is basically at baseline. INR is 1.2. There are no significant electrolyte imbalances. AST is 38, ALT 33 and alk-phos 128. Lipase is normal. Stool for occult blood is positive. Abdomen pelvis CT scan showed liver cirrhosis, splenomegaly and partial thrombus of the portal vein. ED tx: Zofran 4 mg IV, Protonix 80 mg IV, morphine 4 mg IV. Hospital course: 63-year-old male with chronic HCV (Epclusa completed, SVR12 pending) that has led to cirrhosis complicated by portal hypertension, history of large varices status post EBL 04/29, who presented to the hospital for dark emesis: Patient is started on bowel rest, IV fluids, PPIs, octreotide,received 1 unit platelets, GI consulted-Current presentation does not appear to be consistent with variceal bleeding. No indication for emergent upper endoscopy and elevation at this time. . In addition H&H was monitored closely.H&H stable Patient did not had any gross bleeding afterwards. Seen by GI-H&H seems to be stable, no gross bleeding afterwards, platelets counts also improving to 27 range . Diet advanced patient is tolerating well. Patient is to follow up with GI and pcp outpatient.moniter cbc outpatient. plan: patient is scheduled for follow-up endoscopy for complete obliteration of varices in July. Patient is to follow up with GI and pcp outpatient.moniter cbc outpatient. added omeprazole 20 mg po daily Above management discussed with the patient detail length with the help of automatic shirring machine operator. Time spent 40 minute. Time Attestation Total time managing care of this patient today: 40 mintues. Discharge Coordination Time (in mins): 40 min Quality: Safe Use of Opioids Does Pt have an Active Cancer Diagnosis on the Problem List?: No Quality: Stroke Does the patient have a stroke diagnosis?: No Physical Exam Vital Signs: Vital Signs: Last Vital Signs Temp 97.1 F 05/28/24 07:11 Pulse 61 05/28/24 07:11 Resp 17 05/28/24 07:11 BP 133/61 05/28/24 07:11 Pulse Ox 94 05/28/24 07:11 O2 Del Method Room Air 05/28/24 07:11 BMI result Body Mass Index 32.3 Appearance: Alert.? Oriented X3. cvs: rrr, [id number]. res: clear to auscultation ,no rales or wheezing abd: no rebound or guarding ,nt , bs present. ext pulses present , no cyanosis. neuro: axo3 , nonfocal. DS: Data Data Completed and Pending Labs on day of discharge: Laboratory Results - last 24 hr 05/27/24 05/28/24 18:25 05:49 Hgb 12.1 L 10.7 L Hct 37.6 L 32.9 L Plt Count 27 L Preliminary micro results at discharge 05/26/24 20:24 Blood Culture - Preliminary Blood - Venous No growth after 24 hours. 05/26/24 20:24 Blood Culture - Preliminary Blood - Venous No growth after 24 hours. Imaging Chest x-ray: Radiologist's impression: ITS Impressions Abdomen/Pelvis CT 05/26/24 19:26 IMPRESSION: 1. No acute abnormality CT scan abdomen pelvis. 2. Cirrhosis of liver. Splenomegaly. Partial thrombosis of the portal vein. Fleischner guidelines were followed. Electronically signed by: Elder Alicia MD 05/26/2024 09:05 PM EDT RP Head CT 05/26/24 19:49 IMPRESSION: No acute intracranial pathology. Electronically signed by: Elder Alicia MD 05/26/2024 09:35 PM EDT RP Discharge Plan Discharge Anticipated Discharge Date/Time: 05/28/24 12:18 Patient Disposition: Home, Self-Care Discharge Diagnosis: possible upper GIb-Likely 2/2 vomiting from mild concussion with oozing from PHG vs small MWT Referrals: Leta Soto MD [Primary Care Provider] - 1 Week Yajaira Antonio MD [Physician] - 1 Week Discharge Medications: New omeprazole 20 mg capsule,delayed release(DR/EC) 20 mg PO DAILY Qty: 30 0RF Continued carvedilol 3.125 mg tablet 3.125 mg PO BID 30 Days Qty: 60 2RF Rx Instructions: must administer with a meal/food nadolol 40 mg tablet 40 mg PO DAILY ferrous sulfate 325 mg (65 mg iron) tablet 325 mg PO DAILY furosemide 20 mg tablet 20 mg PO DAILY amlodipine 10 mg tablet 10 mg PO DAILY ascorbic acid (vitamin C) 250 mg tablet 250 mg PO DAILY Discharge Orders: Discharge Order (Routine); Ordered 05/28/24 Ordered By: Sandra Parra Diet: Advance to usual diet Activity on Discharge: As tolerated Stand Alone Forms: Patient Portal Discharge page Print Language: Uzbek Other Ambulatory Orders: Complete Blood Count no Diff (Routine) Timeframe: 1 Week Facility: [facility] - Location: Laboratory Ordered By: Sandra Parra Care Plan Goals: Patient 63-year-old male with chronic HCV (Epclusa completed, SVR12 pending) that has led to cirrhosis complicated by portal hypertension, history of large varices status post EBL 04/29, who presented to the hospital for dark emesis: Patient is started on bowel rest, IV fluids, PPIs, octreotide,received 1 unit platelets, GI consulted-Current presentation does not appear to be consistent with variceal bleeding. No indication for emergent upper endoscopy and elevation at this time. . In addition H&H was monitored closely.H&H stable Patient did not had any gross bleeding afterwards. Seen by GI-H&H seems to be stable, no gross bleeding afterwards, platelets counts also improving to 27 range . Diet advanced patient is tolerating well. Patient is to follow up with GI and pcp outpatient.moniter cbc outpatient. Above management discussed with the patient detail length with the help of automatic shirring machine operator. Time spent 40 minute. Health Concerns: patient is scheduled for follow-up endoscopy for complete obliteration of varices in July. Patient is to follow up with GI and pcp outpatient.moniter cbc outpatient. added omeprazole 20 mg po daily Plan of Treatment: As above. Assessment: As above.
--- NOTE | 2024-05-28 12:55 | MHC.CM.PN ---
Patient is discharged today self care. He will return to his [facility] at discharge. A meal was provided prior to discharge. [facility] pharmacy is preferred provider. They will fill the new script. The medication will be delivered to the patients in his room. He has arranged for transportation home from his HCP.
== END 2024-05-28 15:19 | disposition home or self-care (01) | DRG 660 ==
LOC: HO.ED 21:58 → HO.EDOVER 22:32 → HO.S3 23:40
PROVIDERS: Admitting Provider Internal Medicine; Emergency Provider Emergency Medicine; PCP Student in an Organized Health Care Education/Training Program; Referring Provider Student in an Organized Health Care Education/Training Program; Visit Provider Internal Medicine
DX: D61.818 Other pancytopenia (principal); I81 Portal vein thrombosis; K76.6 Portal hypertension; K92.0 Hematemesis; S06.0X1A Concussion with loss of consciousness of 30 minutes or less, initial encounter; K74.69 Other cirrhosis of liver; W19.XXXA Unspecified fall, initial encounter; I10 Essential (primary) hypertension; K31.89 Other diseases of stomach and duodenum; E66.9 Obesity, unspecified; Z68.32 Body mass index [BMI] 32.0-32.9, adult; Z71.3 Dietary counseling and surveillance; F17.210 Nicotine dependence, cigarettes, uncomplicated; Z71.6 Tobacco abuse counseling; B18.2 Chronic viral hepatitis C; Z59.01 Sheltered homelessness; Z79.899 Other long term (current) drug therapy
CPT/HCPCS: 36415; 70450; 74177; 80048; 80053; 80076; 81003; 82272; 83605; 83690; 83735; 84484; 85014; 85018; 85025; 85027; 85049; 85610; 85730; 86850; 86900; 86901; 87040; 93005; 99285; J1170; J2270; J2354; J2405; J2470; P9073; Q9967

== ENCOUNTER → 2024-05-26 18:43 | Outpatient (BNV) | payer MEDICAID, SELFPAY | PROVIDERS: Emergency Provider Emergency Medicine; PCP Student in an Organized Health Care Education/Training Program; Visit Provider Internal Medicine | DX: K92.2 Gastrointestinal hemorrhage, unspecified (principal); D61.818 Other pancytopenia; K74.60 Unspecified cirrhosis of liver; B18.2 Chronic viral hepatitis C | CPT/HCPCS: 99223; 99232; 99239 ==

== ENCOUNTER → 2024-05-26 21:54 | Outpatient (BNV) | payer MEDICAID, SELFPAY | PROVIDERS: Admitting Provider Internal Medicine; Emergency Provider Emergency Medicine; PCP Student in an Organized Health Care Education/Training Program; Visit Provider Internal Medicine Medical Oncology | DX: D61.818 Other pancytopenia (principal) | CPT/HCPCS: 99222 ==

== ENCOUNTER → 2024-05-26 21:54 | Outpatient (BNV) | payer MEDICAID, SELFPAY | PROVIDERS: Admitting Provider Internal Medicine; Emergency Provider Emergency Medicine; PCP Student in an Organized Health Care Education/Training Program; Visit Provider Internal Medicine | DX: R11.10 Vomiting, unspecified (principal); D61.818 Other pancytopenia; K74.60 Unspecified cirrhosis of liver | CPT/HCPCS: 99222 ==

== ENCOUNTER 2024-06-02 08:23 | Outpatient (REF) | payer MEDICAID, SELFPAY ==
[2024-06-02 09:39] LABS: Hemoglobin 11.9 g/dl (14.0-18.0); Mean Corpuscular HGB Conc 32.2 g/dl (31.0-36.0); Mean Corpuscular Hemoglobin 28.8 pg (27.0-33.0); Mean Corpuscular Volume 89.6 fL (80.0-98.0); Red Blood Count 4.13 X10*6/uL (4.60-5.80); Red Cell Distribution Width 14.9 % (11.0-16.0)
[2024-06-02 09:40] LABS: Platelet Count 21 X10*3/uL (160-400); White Blood Count 1.9 X10*3/uL (4.8-10.8)
[2024-06-02 10:12] LABS: Alanine Aminotransferase 37 U/L (0-40); Albumin Level 3.7 g/dL (3.5-5.0); Alkaline Phosphatase 140 U/L (39-117); Aspartate Amino Transferase 43 U/L (5-37); Bilirubin Direct 0.4 mg/dL (0.0-0.5); Iron 67 mcg/dL (45-160); Percent Iron Saturation 20 % (15-50); Total Iron Binding Capacity 339 mcg/dL (228-428); Total Protein 7.6 g/dL (6.5-8.0); Unsaturated Iron Binding 272 ug/dL
[2024-06-02 10:28] LABS: Ferritin 20 ng/mL (20-250)
[2024-06-02 10:39] LABS: Folate 13.8 ng/mL (> or = 4.0); Vitamin B12 512 pg/mL (200-900)
[2024-06-05 20:58] LABS: Intrinsic Factor Antibodies Negative (Negative)
== END 2024-06-02 08:24 | disposition home or self-care (01) ==
LOC: HO.LAB 08:23
PROVIDERS: Internal Medicine; PCP Student in an Organized Health Care Education/Training Program; Visit Provider Internal Medicine
DX: K29.40 Chronic atrophic gastritis without bleeding (principal); D61.818 Other pancytopenia; B19.20 Unspecified viral hepatitis C without hepatic coma; R76.8 Other specified abnormal immunological findings in serum
CPT/HCPCS: 36415; 80076; 82607; 82728; 82746; 82941; 83516; 83540; 85027; 86340

== ENCOUNTER 2024-06-21 18:23 | Emergency (ER) | payer MEDICAID, SELFPAY ==
[2024-06-21 18:28] VITALS: BP 164/81; PULSE 94; O2SAT 96
[2024-06-21 18:30] VITALS: BP 157/69; PULSE 85; RESP 16; TEMP 36.7; O2SAT 97; BMI 32.3
[2024-06-21 18:43] VITALS: BP 157/69; PULSE 85; RESP 16; TEMP 36.7; O2SAT 97
[2024-06-21 21:11] LABS: Basophils Percent Auto 0.5 % (0-2); Hematocrit 34.5 % (42.0-52.0); Hemoglobin 11.3 g/dl (14.0-18.0); Imm Gran Abs Auto 0.01 X10*3/uL (0.00-0.03); Imm Gran Pct Auto 0.5 % (0.0-0.4); Lymphocytes Absolute Auto 0.7 X10*3/uL (1.2-4.9); Lymphocytes Percent Auto 32.2 % (20-40); MANUAL DIFF FLAG SCAN; Mean Corpuscular HGB Conc 32.8 g/dl (31.0-36.0); Mean Corpuscular Hemoglobin 28.8 pg (27.0-33.0); Mean Corpuscular Volume 87.8 fL (80.0-98.0); Monocytes Absolute Auto 0.2 X10*3/uL (0.1-1.2); Monocytes Percent Auto 8.4 % (2-11); Neutrophils Absolute Auto 1.1 x10*3/uL (2.0-8.3); Neutrophils Percent Auto 56.4 % (45-73); Red Blood Count 3.93 X10*6/uL (4.60-5.80); Red Cell Distribution Width 14.3 % (11.0-16.0); SCAN SMEAR FLAG 1
[2024-06-21 21:14] LABS: Platelet Count 22 X10*3/uL (160-400)
[2024-06-21 21:23] LABS: Alanine Aminotransferase 31 U/L (0-40); Albumin Level 3.4 g/dL (3.5-5.0); Alkaline Phosphatase 127 U/L (39-117); Anion Gap 10 (12-20); Aspartate Amino Transferase 37 U/L (5-37); Bilirubin Total 0.7 mg/dL (0.0-1.0); Blood Urea Nitrogen 16 mg/dL (9-16); Calcium 8.7 mg/dL (8.4-10.2); Carbon Dioxide 25 mmol/L (22-29); Chloride 112 mmol/L (96-108); Creatinine Clr Calc Pharmacy 108.5; Estimated Glomerular Filt Rate > 60; Glucose Random 114 mg/dL (60-115); Lipase 22 U/L (8-78); Potassium 4.3 mmol/L (3.3-5.1); Sodium 143 mmol/L (135-145); Total Protein 6.9 g/dL (6.5-8.0)
--- NOTE | 2024-06-21 21:25 | ED.ABDPAIN ---
HPI - Abdominal Pain General Chief Complaint: Abdominal Pain Stated Complaint: vomiting blood, abd pain Time Seen by Provider: 06/21/24 21:20 Source: patient Mode of arrival: ambulatory Limitations: no limitations History of Present Illness ED Provider: prema EM narrative: Patient is status post endoscopy 04/29 which showed 5 columns of large varices occupying the entire lumen of the esophagus status post EBL was seen here on 05/27 for dark-colored emesis which was not very still bleeding comes here for similar presentation H&H stable as before comes here for pain in the left inguinal area where he had the hernia surgery, diarrhea for last 2 days and 2 episodes of vomiting earlier today which he says was dark color no fresh blood patient is legally blind with right prosthetic eye but can see color if he has see it closely patient does have thrombocytopenia which has been stable 22 K Related Data Home Medications ?Medication ?Instructions ?Recorded ?Confirmed amlodipine 10 mg tablet 10 mg PO DAILY 12/03/23 05/27/24 ascorbic acid (vitamin C) 250 mg 250 mg PO DAILY 12/03/23 05/27/24 tablet ferrous sulfate 325 mg (65 mg 325 mg PO DAILY 12/03/23 05/27/24 iron) tablet furosemide 20 mg tablet 20 mg PO DAILY 12/03/23 05/27/24 nadolol 40 mg tablet 40 mg PO DAILY 05/27/24 05/27/24 Previous Rx's ?Medication ?Instructions ?Recorded carvedilol 3.125 mg tablet 3.125 mg PO BID 30 days #60 tabs 04/29/24 omeprazole 20 mg capsule,delayed 20 mg PO DAILY #90 caps 05/28/24 release sucralfate 1 gram tablet (Carafate) 1 g PO QID #320 tabs 05/28/24 Allergies Allergy/AdvReac Type Severity Reaction Status Date / Time aspirin AdvReac Severe stomach Verified 06/21/24 18:40 bleeding NSAIDS (Non-Steroidal AdvReac Severe liver Verified 06/21/24 18:40 Anti-Inflamma concerns Review of Systems Review of Systems Yes all other systems are reviewed and are negative PMFSH Past Medical History Medical History Esophageal varices Pancytopenia Iron deficiency anemia Cirrhosis Hepatitis C HBP (high blood pressure) Surgical History H/O left inguinal hernia repair H/O eye surgery History of esophagogastroduodenoscopy (EGD) H/O colonoscopy Family History Family History Maternal Grandmother Breast CA Uterus cancer Mother Primary lung cancer of unknown cell type Social History Social History Household Members: None Household Members Other:: skilled nursing Housing: Other Housing Other:: skilled nursing Do you presently have visiting nurse or other home services: No Patient Tobacco Use Status: Current everyday Tobacco user Tobacco use type: Cigarette Cigarette Packs Per Day: 1 Smoked in Last 30 Days: No Second Hand Smoke Exposure: No Use of substances other than those prescribed or required for medical reasons: No Advance Directives: No Advance Directives Information Provided: No Do you have a plan to hurt others: No Plan service: No Current occupational status: retired Physical Exam ED Vital Signs: Vital Signs - 24 hr 06/21/24 18:30 06/21/24 18:43 Temperature 98.1 F 98.1 F Pulse Rate 85 85 Respiratory Rate 16 16 Blood Pressure 157/69 H 157/69 H Pulse Oximetry 97 97 Oxygen Delivery Method Room Air Room Air BMI result Body Mass Index 32.3 Appearance: Alert. Oriented X3. No acute distress. Eyes: No pallor or icterus ENT: Pharynx normal. Oral Mucosa moist Neck: Normal inspection. Neck supple. CVS: Normal heart rate and rhythm. Pulses normal. Respiratory: No respiratory distress. Equal air entry bilateral, no wheezing/rales/rhonchi Abdomen: Soft and mild soft tissue tenderness left inguinal area no hernia palpable. Bowel sounds are present, no mass palpable, no CVA tenderness Skin: Skin warm and dry. Normal skin color. Normal skin turgor. Extremities: No lower extremity edema. No calf tenderness Neuro: Oriented X 3. Medical Decision Making Medical Decision Making MDM Narrative: Patient's history of HCV with varices status post EB alone 04/29 , thrombocytopenia comes here diarrhea and vomiting dark-colored and left inguinal area pain patient H&H stable taking p.o. fluids ER does not look will discharge patient home likely viral follow up with GI patient was seen here on with similar present and discharged Differential Diagnosis Differential Diagnoses: The differential diagnosis associated with the presentation includes Admission/Observation Consideration of admission/observation: Escalation of care including admission/observation considered Lab Data MDM Lab Attestation statement: I reviewed the patient's lab results. 06/21/24 21:03 06/21/24 21:03 Labs: Lab Results 06/21/24 Range/Units 21:03 WBC 2.0 L (4.8-10.8) X10*3/uL RBC 3.93 L (4.60-5.80) X10*6/uL Hgb 11.3 L (14.0-18.0) g/dl Hct 34.5 L (42.0-52.0) % MCV 87.8 (80.0-98.0) fL MCH 28.8 (27.0-33.0) pg MCHC 32.8 (31.0-36.0) g/dl RDW 14.3 (11.0-16.0) % Plt Count 22 L (160-400) X10*3/uL MPV Not Reportable Immature Gran % (Auto) 0.5 H (0.0-0.4) % Neut % (Auto) 56.4 (45-73) % Lymph % (Auto) 32.2 (20-40) % [place] % (Auto) 8.4 (2-11) % Eos % (Auto) 2.0 (0-4) % Baso % (Auto) 0.5 (0-2) % Lymph # (Auto) 0.7 L (1.2-4.9) X10*3/uL [place] # (Auto) 0.2 (0.1-1.2) X10*3/uL Eos # (Auto) 0.0 (0.0-0.4) X10*3/uL Baso # (Auto) 0.0 (0.0-0.2) X10*3/uL Abs Immat Gran (auto) 0.01 (0.00-0.03) X10*3/uL Absolute Neuts (auto) 1.1 L (2.0-8.3) x10*3/uL Absolute Nucleated RBC 0.000 (0.0-0.012) X10*3/uL Nucleated RBC % (auto) 0.0 (0.0-0.2) /100WBC Smear Tech's Comments VERIFIED Sodium 143 (135-145) mmol/L Potassium 4.3 (3.3-5.1) mmol/L Chloride 112 H (96-108) mmol/L Carbon Dioxide 25 (22-29) mmol/L Anion Gap 10 L (12-20) BUN 16 (9-16) mg/dL Creatinine 0.87 (0.5-1.4) mg/dL Estim Creat Clear Calc 108.5 Estimated GFR > 60 Random Glucose 114 (60-115) mg/dL Calcium 8.7 (8.4-10.2) mg/dL Total Bilirubin 0.7 (0.0-1.0) mg/dL AST 37 (5-37) U/L ALT 31 (0-40) U/L Alkaline Phosphatase 127 H (39-117) U/L Total Protein 6.9 (6.5-8.0) g/dL Albumin 3.4 L (3.5-5.0) g/dL Lipase 22 (8-78) U/L Discharge Plan Discharge Clinical Impression: Gastroenteritis Patient Disposition: Home, Self-Care Instructions: Gastroenteritis (ED) Additional Instructions: Drink Clear liquids advance slowly Follow with department operations manager Report to the ER if vomiting continues or have fresh in the vomitus Prescriptions: No Action carvedilol 3.125 mg tablet 3.125 mg PO BID 30 Days Qty: 60 2RF Rx Instructions: must administer with a meal/food nadolol 40 mg tablet 40 mg PO DAILY omeprazole 20 mg capsule,delayed release(DR/EC) 20 mg PO DAILY Qty: 90 0RF sucralfate [Carafate] 1 gram tablet 1 g PO QID Qty: 320 0RF ferrous sulfate 325 mg (65 mg iron) tablet 325 mg PO DAILY furosemide 20 mg tablet 20 mg PO DAILY amlodipine 10 mg tablet 10 mg PO DAILY ascorbic acid (vitamin C) 250 mg tablet 250 mg PO DAILY Print Language: Solomon Islander
[2024-06-21 21:31] LABS: SLIDE REVIEW VERIFIED
== END 2024-06-22 07:08 | disposition home or self-care (01) ==
PROVIDERS: Emergency Provider Internal Medicine; PCP Student in an Organized Health Care Education/Training Program
DX: K52.9 Noninfective gastroenteritis and colitis, unspecified (principal); R10.32 Left lower quadrant pain; F17.210 Nicotine dependence, cigarettes, uncomplicated
CPT/HCPCS: 36415; 80053; 83690; 85025; 99283; 99284

== ENCOUNTER 2024-07-02 14:34 | Outpatient (AMB) | payer MEDICAID, SELFPAY ==
--- NOTE | 2024-07-02 14:36 | MHC.OFFVIS ---
Vital Signs 07/02/24 14:38 Height 5 ft 11 in Weight 227 lb 1.218 oz BMI 31.7 BP 142/58 H Blood Pressure Location Lt brachial Position Sitting Pulse 80 Intake Visit Reasons: f/u EGD 30 min Intake Note: Adelso presents in the office as a follow up EGD. CC: Here for results - no concerns at this time. Home Office Representative Required: Yes Home Office Representative Name: Sonia [id number] Allergies aspirin Adverse Reaction (Severe, Verified 07/02/24 14:41) stomach bleeding NSAIDS (Non-Steroidal Anti-Inflamma Adverse Reaction (Severe, Verified 07/02/24 14:41) liver concerns HPI Comments Details: This is a 62y.o M who is here for follow up for HCV related liver disease. 06/04/23: Seen with police manager. Pt was being seen by Teresita for pancytopenia and work up revealed chronic liver disease secondary to chronic HCV genotype 1a with occult HBV and HIV negative status. He has also undergone US Abd which does not show any focal masses. Interestingly reported as normal liver despite fibrosure with F3-4 fibrosis, thrombocytopenia and splenomegaly. Pt does not report any IVDU but does report years of unprotected sexual intercourse > 15 years ago in [place]. No fam hx of liver disease. Also noted on labs is iron deficiency anemia with ferritin of 17. Pt reports having a colonoscopy 4 months ago at [facility] in [place]. Was told it was normal but does not recall the recall interval. US Abd 04/2023: 1. Nonspecific region of borderline focal wall thickening along the anterior aspect of the gallbladder wall measuring up to 4 mm. 2. Simple appearing cystic focus in the right renal upper pole measuring up to 1.6 cm, which does not require follow-up. 3. Enlarged spleen measuring up to 22.4 cm. 11/20/23: Large varices with high risk stigmata (EVBL x 5) Hiatal hernia Gastric polyps (biopsy) Antral nodule (biopsy) Portal hypertensive gastropathy Normal duodenum A. Stomach, antrum nodule: Antral-type mucosa with surface hyperplastic changes, mild chronic inactive inflammation and intestinal metaplasia; negative for dysplasia; no Helicobacter organisms seen. B. Stomach, polyps: Hyperplastic mucosal polyps with background moderate chronic active inflammation; no Helicobacter organisms seen. 12/03/23: Comes in for follow up. Reports some jaw discomfort after the EGD. Also had some discomfort with swallowing initially which improved with magic mouthwash. Currently no GI complaints. EGD findings and path reviewed including findings of HP gastric poylps. 02/13/24: Started Epclusa in December. 3 more weeks left for therapy. No active GI issues. Large varices with high risk stigmata (EVBL x 4) Hiatal hernia Gastric polyps Portal hypertensive gastropathy Portal hypertensive duodenopathy with lymphangectasia ?? Path: A. Stomach, antrum greater curvature, biopsy: Gastric antral mucosa with mild chronic inactive gastritis; negative for Helicobacter pylori, intestinal metaplasia and dysplasia. B. Stomach, antrum lesser curvature, biopsy: Gastric antral mucosa with mild reactive gastropathy and patchy mild chronic inflammation; negative for Helicobacter pylori, intestinal metaplasia and dysplasia. C. Stomach, incisura, biopsy: Gastric antral mucosa with mild chronic inactive gastritis and focal intestinal metaplasia; negative for Helicobacter pylori and dysplasia. D. Stomach, body greater curvature, biopsy: Gastric body-type mucosa with moderate chronic gastritis, glandular atrophy and intestinal metaplasia; negative for Helicobacter pylori and dysplasia (see comment). E. Stomach, body, lesser curvature, biopsy: Gastric body-type mucosa with moderate chronic gastritis, glandular atrophy and intestinal metaplasia; negative for Helicobacter pylori and dysplasia (see comment 07/02/24: Here for follow-up. Had a brief hospitalization last month for question of hematemesis. However, this was low-grade, and did not warrant an endoscopic workup at that time. Patient was discharged. Most recent CBC with hemoglobin at baseline. Also had HCV RNA checked in April, which remains undetectable. His SVR 12 is actually due next month. He also was diagnosed with atrophic gastritis based on biopsies as well as antiparietal antibody. Vitamin B12 and folate are normal. [facility] Medical History Esophageal varices Pancytopenia Iron deficiency anemia Cirrhosis Hepatitis C HBP (high blood pressure) Surgical History H/O left inguinal hernia repair H/O eye surgery History of esophagogastroduodenoscopy (EGD) H/O colonoscopy Family History Maternal Grandmother Breast CA Uterus cancer Mother Primary lung cancer of unknown cell type Social History Household Members: None Household Members Other:: halfway Housing: Other Housing Other:: halfway Do you presently have visiting nurse or other home services: No Patient Tobacco Use Status: Current everyday Tobacco user Tobacco use type: Cigarette Cigarette Packs Per Day: 1 Second Hand Smoke Exposure: No service: No Current occupational status: retired Review of Systems Const All systems reviewed & are unremarkable except as noted in HPI and below Physical Exam Vital Signs: Last Vital Signs Pulse 80 07/02/24 14:38 BP 142/58 H 07/02/24 14:38 BMI result Body Mass Index 31.7 No apparent distress Nonicteric Abdomen soft, nondistended Alert and oriented x3, normal gait Assessment & Plan Assessment & Plan (1) Hepatitis C virus infection: Code(s): B19.20 - Unspecified viral hepatitis C without hepatic coma Category: Medical Qualifiers: Viral hepatitis chronicity: chronic Hepatic coma status: without hepatic coma Qualified Code(s): B18.2 - Chronic viral hepatitis C (2) Hepatitis B core antibody positive: Code(s): R76.8 - Other specified abnormal immunological findings in serum Category: Medical (3) Cirrhosis: Code(s): K74.60 - Unspecified cirrhosis of liver Category: Medical Qualifiers: Hepatic cirrhosis type: unspecified hepatic cirrhosis Ascites presence: without ascites Qualified Code(s): K74.60 - Unspecified cirrhosis of liver (4) Hyperplastic adenomatous polyp of stomach: Code(s): D13.1 - Benign neoplasm of stomach Category: Medical Plan 1. Chronic HCV genotype 1a s/p Epclusa - completed early April. HBV core Ab pos, HBV surface Ag negative Appears to have cirrhosis 2/2 chronic HCV with CSPH - s/p EGD with variceal banding. US Abd 12/2023 without any focal lesions. - Check viral load and LFTs in 4 weeks - Repeat EGD for variceal surveillance to be booked - msg resent - Repeat US due for HCC screening in Jun 2024 - order placed - No evidence of ascites or HE on today's assessment 2. Hyperplastic gastric polyps No dysplasia noted. H pylori negative. - Will need complete resection of larger polyps. EGD booked for Apr 2024. - Will also benefit from mapping bx at next EGD - Pt established with Heme (Dr Castro) will request coordination of platelet and possibly FFP transfusion before next EGD to allow for complete polypectomy Follow up 3 months Orders: Orders Liver Panel 1 Month B18.2 - Chronic viral hepatitis C US abdomen complete Today K74.60 - Unspecified cirrhosis of liver HCV RNA QN PROG TO GENOTYPE 1 Month K74.60 - Unspecified cirrhosis of liver Coding Level of Care Code Est Pt Level 5 (81870) Complex EM visit Add On G2211 Diagnoses Chronic hepatitis C without hepatic coma B18.2 Viral hepatitis chronicity: chronic Hepatic coma status: without hepatic coma Hepatitis B core antibody positive R76.8 Cirrhosis of liver without ascites, unspecified hepatic cirrhosis type K74.60 Hepatic cirrhosis type: unspecified hepatic cirrhosis Ascites presence: without ascites Hyperplastic adenomatous polyp of stomach D13.1
[2024-07-02 14:38] VITALS: BP 142/58; PULSE 80; BMI 31.7
== END 2024-07-02 15:13 | disposition home or self-care (01) ==
LOC: HO.HGI 14:34
PROVIDERS: PCP Student in an Organized Health Care Education/Training Program; Visit Provider Internal Medicine
DX: B18.2 Chronic viral hepatitis C (principal); R76.8 Other specified abnormal immunological findings in serum; K74.60 Unspecified cirrhosis of liver; D13.1 Benign neoplasm of stomach
CPT/HCPCS: 99214

== ENCOUNTER → 2024-07-02 14:34 | Outpatient (BNVA) | payer MEDICAID, SELFPAY | PROVIDERS: PCP Student in an Organized Health Care Education/Training Program; Visit Provider Internal Medicine | DX: K74.60 Unspecified cirrhosis of liver (principal); B18.2 Chronic viral hepatitis C; R76.8 Other specified abnormal immunological findings in serum; D13.1 Benign neoplasm of stomach | CPT/HCPCS: 99212 ==

== ENCOUNTER 2024-07-09 08:20 | Outpatient (REF) | payer MEDICAID, SELFPAY ==
[2024-07-09 09:45] LABS: Alanine Aminotransferase 37 U/L (0-40); Albumin Level 3.6 g/dL (3.5-5.0); Alkaline Phosphatase 118 U/L (39-117); Aspartate Amino Transferase 55 U/L (5-37); Bilirubin Direct 0.5 mg/dL (0.0-0.5); Bilirubin Total 1.3 mg/dL (0.0-1.0); Total Protein 7.4 g/dL (6.5-8.0)
[2024-07-10 21:07] LABS: HCV RNA PCR Qn <1.18 NOT DETECTED Log IU/mL (NOT DETECTED); HCV RNA PCR Qn <15 NOT DETECTED IU/mL (NOT DETECTED)
== END 2024-07-09 08:21 | disposition home or self-care (01) ==
LOC: HO.LAB 08:20
PROVIDERS: PCP Student in an Organized Health Care Education/Training Program; Visit Provider Internal Medicine
DX: K74.60 Unspecified cirrhosis of liver (principal); B18.2 Chronic viral hepatitis C
CPT/HCPCS: 36415; 80076; 87522

== ENCOUNTER 2024-07-18 08:16 | Outpatient (REF) | payer MEDICAID, SELFPAY | END 2024-07-18 08:17 | disposition home or self-care (01) | LOC: HO.US 08:16 | PROVIDERS: PCP Student in an Organized Health Care Education/Training Program; Visit Provider Internal Medicine | DX: K74.60 Unspecified cirrhosis of liver (principal) | CPT/HCPCS: 76700 ==

== ENCOUNTER 2024-07-21 09:34 | Emergency (ER) | payer MEDICAID, SELFPAY ==
[2024-07-21 09:52] VITALS: BP 171/69; PULSE 85; RESP 18; TEMP 37; O2SAT 100; BMI 25.1
--- NOTE | 2024-07-21 12:12 | ED.SKABFB ---
HPI - Skin/Abscess/Foreign Bdy General Chief complaint: Skin/Abscess/Foreign Body Stated complaint: abscess Time Seen by Provider: 07/21/24 12:00 Source: patient Mode of arrival: ambulatory Limitations: no limitations History of Present Illness HPI narrative: This is a 63 years old the patient presented to the emergency department with a chief complaint of lesion groin possible abscess. Denies any fever chills vomiting. MD complaint: abscess/boil Onset (ago): day(s) (1) Tetanus up to date: no Location: generalized (groin) Severity: mild Pain Consistency: constant Relieving factors: none Exacerbating factors: none Related Data Home Medications ?Medication ?Instructions ?Recorded ?Confirmed amlodipine 10 mg tablet 10 mg PO DAILY 12/03/23 05/27/24 ascorbic acid (vitamin C) 250 mg 250 mg PO DAILY 12/03/23 05/27/24 tablet ferrous sulfate 325 mg (65 mg 325 mg PO DAILY 12/03/23 05/27/24 iron) tablet furosemide 20 mg tablet 20 mg PO DAILY 12/03/23 05/27/24 nadolol 40 mg tablet 40 mg PO DAILY 05/27/24 05/27/24 Previous Rx's ?Medication ?Instructions ?Recorded carvedilol 3.125 mg tablet 3.125 mg PO BID 30 days #60 tabs 04/29/24 omeprazole 20 mg capsule,delayed 20 mg PO DAILY #90 caps 05/28/24 release sucralfate 1 gram tablet (Carafate) 1 g PO QID #320 tabs 05/28/24 sulfamethoxazole 800 1 tab PO BID #14 tabs 07/21/24 mg-trimethoprim 160 mg tablet (Bactrim DS) Allergies Allergy/AdvReac Type Severity Reaction Status Date / Time aspirin AdvReac Severe stomach Verified 07/21/24 09:55 bleeding NSAIDS (Non-Steroidal AdvReac Severe liver Verified 07/21/24 09:55 Anti-Inflamma concerns Review of Systems Review of Systems: Yes all other systems are reviewed and are negative Eyes: Eyes: Reports no additional eye complaints Cardiovascular: Cardiovascular: Reports no additional cardiovascular complaints Genitourinary: Genitourinary: Reports no additional male genitourinary complaints PMFSH Past Medical History Medical History Esophageal varices Pancytopenia Iron deficiency anemia Cirrhosis Hepatitis C HBP (high blood pressure) Surgical History H/O left inguinal hernia repair H/O eye surgery History of esophagogastroduodenoscopy (EGD) H/O colonoscopy Family History Family History Maternal Grandmother Breast CA Uterus cancer Mother Primary lung cancer of unknown cell type Social History Social History Household Members: None Household Members Other:: longterm Housing: Other Housing Other:: longterm Do you presently have visiting nurse or other home services: No Patient Tobacco Use Status: Current everyday Tobacco user Tobacco use type: Cigarette Cigarette Packs Per Day: 1 Second Hand Smoke Exposure: No service: No Current occupational status: retired Physical Exam Vital Signs: Vital Signs: Last Vital Signs Temp 98.2 F 07/21/24 12:57 Pulse 69 07/21/24 12:57 Resp 17 07/21/24 12:57 BP 155/64 H 07/21/24 12:57 Pulse Ox 100 07/21/24 12:57 O2 Del Method Room Air 07/21/24 12:57 BMI result Body Mass Index 25.1 Const: General: cooperative Nutritional Appearance: average body habitus Neck: Neck: Yes normal visual inspection and Yes full ROM Chest: Chest palpation & inspection: normal inspection of the chest Resp: Effort & Inspection: normal respiratory effort Auscultation: clear to auscultation bilaterally Cardio: Jugular venous distension: no JVD Rate: regular rate Rhythm: regular rhythm GI: Inspection: Yes normal to inspection Palpation (GI): Soft to palpation, not firm and nontender Auscultation: normal bowel sounds : Other: On examination of his genitalia there are 2 small area of redness, no fluctuance appreciated (see picture) Penis: normal penis Scrotum: scrotum normal Testes: Testes normal Medical Decision Making Medical Decision Making MDM Narrative: Patient presented with 2 smaller area of redness in the groin area no fluctuance I do not think he needs an I and D we will discharge him home on p.o. Bactrim to cover possible MRSA Differential Diagnosis Differential Diagnoses: The differential diagnosis associated with the presentation includes Early cellulitis of the groin/abscess Admission/Observation Consideration of admission/observation: Escalation of care including admission/observation considered Discharge Plan Discharge Clinical Impression: Cellulitis Patient Disposition: Home, Self-Care Instructions: Cellulitis (ED) Additional Instructions: We sent a prescription for you for antibiotic to the [facility] pharmacy, prescription is Bactrim, take 1 twice a day as directed for 1 week. Return to the emergency room if you have a fever if you worse any concern Prescriptions: New sulfamethoxazole-trimethoprim [Bactrim DS] 800-160 mg tablet 1 tab PO BID Qty: 14 0RF No Action carvedilol 3.125 mg tablet 3.125 mg PO BID 30 Days Qty: 60 2RF Rx Instructions: must administer with a meal/food nadolol 40 mg tablet 40 mg PO DAILY omeprazole 20 mg capsule,delayed release(DR/EC) 20 mg PO DAILY Qty: 90 0RF sucralfate [Carafate] 1 gram tablet 1 g PO QID Qty: 320 0RF ferrous sulfate 325 mg (65 mg iron) tablet 325 mg PO DAILY furosemide 20 mg tablet 20 mg PO DAILY amlodipine 10 mg tablet 10 mg PO DAILY ascorbic acid (vitamin C) 250 mg tablet 250 mg PO DAILY Referrals: Leta Soto MD [Primary Care Provider] - 2 days Interventions: ED Discharge Assessment Last Done: 07/21/24 12:57 Discharge Date/Time: 07/21/24 12:57 Print Language: Mohawk
[2024-07-21 12:56] VITALS: BP 155/64; PULSE 69; RESP 17; TEMP 36.8; O2SAT 100
[2024-07-21 12:57] VITALS: BP 155/64; PULSE 69; RESP 17; TEMP 36.8; O2SAT 100
== END 2024-07-21 12:57 | disposition home or self-care (01) ==
PROVIDERS: Emergency Provider Emergency Medicine; PCP Student in an Organized Health Care Education/Training Program
DX: L03.314 Cellulitis of groin (principal); L02.214 Cutaneous abscess of groin; Z79.899 Other long term (current) drug therapy; F17.210 Nicotine dependence, cigarettes, uncomplicated
CPT/HCPCS: 99283; 99284

== ENCOUNTER 2024-08-05 13:42 | Outpatient (REF) | payer MEDICAID, SELFPAY ==
[2024-08-05 16:35] LABS: Basophils Percent Auto 0.5 % (0-2); Red Cell Distribution Width 14.2 % (11.0-16.0); SCAN SMEAR FLAG 1
[2024-08-05 16:37] LABS: Eosinophils Percent Auto 0.9 % (0-4); Hematocrit 36.4 % (42.0-52.0); Hemoglobin 11.8 g/dl (14.0-18.0); Lymphocytes Absolute Auto 0.7 X10*3/uL (1.2-4.9); MANUAL DIFF FLAG SCAN; Mean Corpuscular HGB Conc 32.4 g/dl (31.0-36.0); Mean Corpuscular Hemoglobin 28.3 pg (27.0-33.0); Mean Corpuscular Volume 87.3 fL (80.0-98.0); Monocytes Absolute Auto 0.2 X10*3/uL (0.1-1.2); Neutrophils Absolute Auto 1.2 x10*3/uL (2.0-8.3); Neutrophils Percent Auto 57.6 % (45-73); Red Blood Count 4.17 X10*6/uL (4.60-5.80)
[2024-08-05 16:40] LABS: INTERNATIONAL NORM RATIO 1.2 (0.9-1.1); Prothrombin Time 13.6 SEC (10.9-12.4)
[2024-08-05 16:42] LABS: Platelet Count 24 X10*3/uL (160-400); White Blood Count 2.1 X10*3/uL (4.8-10.8)
[2024-08-05 16:43] LABS: PLT ABN DIST 1
[2024-08-05 16:47] LABS: Alanine Aminotransferase 32 U/L (0-40); Albumin Level 3.7 g/dL (3.5-5.0); Alkaline Phosphatase 125 U/L (39-117); Anion Gap 11 (12-20); Aspartate Amino Transferase 47 U/L (5-37); Bilirubin Total 1.4 mg/dL (0.0-1.0); Blood Urea Nitrogen 11 mg/dL (9-16); Carbon Dioxide 24 mmol/L (22-29); Chloride 108 mmol/L (96-108); Estimated Glomerular Filt Rate > 60; Glucose Random 77 mg/dL (60-115); Potassium 4.7 mmol/L (3.3-5.1); Sodium 138 mmol/L (135-145); Total Protein 7.5 g/dL (6.5-8.0)
[2024-08-05 17:24] LABS: SLIDE REVIEW VERIFIED
== END 2024-08-05 13:43 | disposition home or self-care (01) ==
LOC: HO.HHCL 13:42
PROVIDERS: Visit Provider Nurse Practitioner Family
DX: D69.9 Hemorrhagic condition, unspecified (principal)
CPT/HCPCS: 36415; 80053; 85025; 85610

== ENCOUNTER 2024-09-02 10:27 | Outpatient (REF) | payer MEDICAID, SELFPAY ==
[2024-09-02 12:53] LABS: Basophils Percent Auto 0.5 % (0-2); Eosinophils Percent Auto 1.6 % (0-4); Hematocrit 36.4 % (42.0-52.0); Hemoglobin 11.5 g/dl (14.0-18.0); Lymphocytes Absolute Auto 0.4 X10*3/uL (1.2-4.9); Lymphocytes Percent Auto 23.9 % (20-40); MANUAL DIFF FLAG SCAN; Mean Corpuscular HGB Conc 31.6 g/dl (31.0-36.0); Mean Corpuscular Hemoglobin 27.7 pg (27.0-33.0); Mean Corpuscular Volume 87.7 fL (80.0-98.0); Monocytes Absolute Auto 0.1 X10*3/uL (0.1-1.2); Neutrophils Absolute Auto 1.3 x10*3/uL (2.0-8.3); Platelet Count 21 X10*3/uL (160-400); Red Blood Count 4.15 X10*6/uL (4.60-5.80); SCAN SMEAR FLAG 1; White Blood Count 1.8 X10*3/uL (4.8-10.8)
[2024-09-02 13:05] LABS: Alanine Aminotransferase 27 U/L (0-40); Albumin Level 3.6 g/dL (3.5-5.0); Alkaline Phosphatase 117 U/L (39-117); Anion Gap 11 (12-20); Aspartate Amino Transferase 41 U/L (5-37); Bilirubin Total 1.1 mg/dL (0.0-1.0); Blood Urea Nitrogen 12 mg/dL (9-16); Carbon Dioxide 26 mmol/L (22-29); Chloride 112 mmol/L (96-108); Estimated Glomerular Filt Rate > 60; Glucose Random 102 mg/dL (60-115); Potassium 4.6 mmol/L (3.3-5.1); Sodium 144 mmol/L (135-145); Total Protein 7.3 g/dL (6.5-8.0)
[2024-09-02 13:14] LABS: SLIDE REVIEW VERIFIED
== END 2024-09-02 10:28 | disposition home or self-care (01) ==
LOC: HO.LAB 10:27
PROVIDERS: PCP Student in an Organized Health Care Education/Training Program; Visit Provider Internal Medicine Medical Oncology
DX: D61.818 Other pancytopenia (principal)
CPT/HCPCS: 36415; 80053; 85025

== ENCOUNTER 2024-09-04 07:40 | Day surgery (SDC) | payer MEDICAID, SELFPAY ==
[2024-09-04] VITALS (9 sets, daily range): BP systolic 120–163; BP diastolic 54–83; PULSE 63–82; RESP 14–16; TEMP 36.8–37.3; O2SAT 98–100; BMI 30.3
--- NOTE | 2024-09-04 07:58 | MHC.SHP ---
Pre-Procedural Eval Section A - 24 Hr Update-Section A only Date of Service: 09/04/24 Section B - Complete if H&P > 30 days Chief Complaint: Unspecified cirrhosis of liver Details of Present Illness: esophageal varices Pancytopenia Iron deficiency anemia Cirrhosis Hepatitis C - treated HBP (high blood pressure) Surgical History H/O left inguinal hernia repair H/O eye surgery History of esophagogastroduodenoscopy (EGD) H/O colonoscopy Allergies: Allergies Allergy/AdvReac Type Severity Reaction Status Date / Time aspirin AdvReac Severe stomach Verified 07/21/24 09:55 bleeding NSAIDS (Non-Steroidal AdvReac Severe liver Verified 07/21/24 09:55 Anti-Inflamma concerns Review of Systems Review of Systems Comment: Ten point ROS negative Exam Exam Comment: Gen appear: No acute distress HEENT: no icterus Chest: No overt resp distress Abd: soft, nontender, nondistended Psych: Stable affect, answering questions appropriately Neuro: A/Ox3 noted to move all extremities spontaneously Ext: no peripheral edema Plan Diagnosis/Plan: Unchanged I have reviewed the history and physical and performed a pertinent physical examination on my patient. No changes have occurred unless specified. Time Spent With Patient Time: Total time managing care of this patient today ____ minutes.
[2024-09-04] MEDS: Lactated Ringers 1,000 ML 50 ML IVCONT (08:40)
--- NOTE | 2024-09-04 10:09 | P.CONAN_ITS ---
[facility] Active Problems Active Problems: All Active Problems Vomiting (Acute) Abdominal pain (Acute) Thrombocytopenia (Acute) UGIB (upper gastrointestinal bleed) (Acute) Atrophic gastritis (Acute) Cirrhosis (Acute) Pancytopenia (Acute) Hyperplastic adenomatous polyp of stomach (Acute) Iron deficiency anemia (Acute) Cirrhosis (Acute) Hepatitis B core antibody positive (Acute) Hepatitis C virus infection (Acute) Thickening of wall of gallbladder (Acute) Pancytopenia (Acute) Past Medical History Medical History Esophageal varices Pancytopenia Iron deficiency anemia Cirrhosis Hepatitis C HBP (high blood pressure) Family History Family History Maternal Grandmother Breast CA Uterus cancer Mother Primary lung cancer of unknown cell type Family history of problems with anesthesia: No Surgical History Surgical History H/O left inguinal hernia repair H/O eye surgery History of esophagogastroduodenoscopy (EGD) H/O colonoscopy History of Problems with Anesthesia: No Social History Social History Household Members: None Household Members Other:: assisted Housing: Other Housing Other:: assisted Are you a primary care program resident to a significant other at home: No Do you presently have visiting nurse or other home services: No Patient Tobacco Use Status: Current everyday Tobacco user Tobacco use type: Cigarette Cigarette Packs Per Day: 1 Second Hand Smoke Exposure: No Use of substances other than those prescribed or required for medical reasons: No Have you been hit, kicked, punched, or otherwise hurt by someone within the past year? If so, by whom?: No Are you DNR?: No Advance Directives: No Advance Directives Information Provided: Yes Recently lost weight without trying: No Nutrition Risks: No Nutritional Risk Poor oral hygiene: No service: No Current occupational status: retired Meds Allergies Allergy/AdvReac Type Severity Reaction Status Date / Time aspirin AdvReac Severe stomach Verified 09/04/24 08:41 bleeding NSAIDS (Non-Steroidal AdvReac Severe liver Verified 09/04/24 08:41 Anti-Inflamma concerns Active Medications: Current Medications Lactated Ringer's (Lr) 1,000 mls @ 50 mls/hr IVCONT .Q20H LALI Last Admin: 09/04/24 08:40 Dose: 50 mls/hr Home Medications ?Medication ?Instructions ?Recorded ?Confirmed ?Last Taken ?Type amlodipine 10 mg tablet 10 mg PO DAILY 12/03/23 09/04/24 04/29/24 History ascorbic acid (vitamin C) 250 mg 250 mg PO DAILY 12/03/23 09/04/24 Unknown History tablet ferrous sulfate 325 mg (65 mg 325 mg PO DAILY 12/03/23 09/04/24 Unknown History iron) tablet furosemide 20 mg tablet 20 mg PO DAILY 12/03/23 09/04/24 Unknown History nadolol 40 mg tablet 40 mg PO DAILY 05/27/24 09/04/24 Unknown History Exam Height,Weight and Vital Signs: Height 5 ft 11 in Weight 98.43 kg Last Vital Signs Temp 99.2 F 09/04/24 10:06 Pulse 68 09/04/24 10:06 Resp 14 09/04/24 10:06 BP 130/54 L 09/04/24 10:06 Pulse Ox 98 09/04/24 08:35 O2 Del Method Room Air 09/04/24 08:35 Pertinent Lab Results Pertinent Lab Results: Laboratory Tests 09/02/24 10:50 Blood Type O Negative Antibody Screen NEGATIVE Airway Mallampati Class: II TM Dist: >3cm Neck ROM: Full Loose/Missing/Broken Teeth: Yes and Upper Assessment and Plan Assessment Anesthesia Assessment: Anesthesia Plan Discussed and Chart Reviewed Final Anesthetic Review Family History of Problems with Anesthesia: No History of Problems with Anesthesia: No ASA Class: III Final Preanesthetic Review: No Changes in Pt Med Stat, Meds/Allgs Chart Reviewed, Consent Obtained/Reviewed, Anes Risks/Benef Reviewed and DNR Form (If Appl.) Patient Risk: Intermediate Procedure Risk: Low Anesthetic Plan Anesthetic Plan: TIVA Disposition: Standard PACU
--- NOTE | 2024-09-04 10:48 | P.OP_ITS ---
Operative Note Operative Note Date of Service: 09/04/24 Narrative: Procedure: Esophagogastroduodenoscopy Endoscopist: Yajaira Antonio MD Indication: Cirrhosis, variceal screening, gastric polyps Anesthesia Provider: Luis Senior MD Anesthesia Type: MAC EGD Procedure:?? The procedure, indications, preparation and potential complications were reviewe d with the patient with the help of lastex thread winder, who indicated understanding and gave written informed consent to proceed. A physical exam was performed. The endoscope was introduced through the mouth, and advanced to the second part of duodenum. The mucosa was carefully examined on slow withdrawal of the endoscope. The patient tolerated the procedure well. There were no immediate complications.? ? EGD Findings:? * Esophagus:? 4 columns of large varices occupying the entire lumen of the esophagus with multiple red abilio reddy were noted to extend from GE junction at 40 to 22 cm. * Stomach:?Diffuse congestion and erythema in mosaic pattern consistent with portal hypertensive gastropathy was noted in the whole stomach. Retroflexion in the cardia showed a small hiatal hernia and likely fundal varices. There were at least 4-5 large 1.5-2 cm polyps in the stomach with previous biopsies consistent with hyperplastic polyps. * Duodenum:? Edema and erythema along with lymphangiectasis was noted in the whole of the examined duodenum. Additional intervention: A CipherMax multiband shooter was affixed to the scope in the usual fashion and then advanced to the esophagus. The varices were banded in a spirally ascending fashion from 39 cm to 30 cm. Total of 5 bands were applied with near complete decompression of varices. ? EGD Impressions:? * Large varices with high risk stigmata (EVBL x 5) * Fundal varices * Gastric polyps * Portal hypertensive gastropathy * Portal hypertensive duodenopathy with lymphangectasia ?? Recommendations:?? * Clear liquids x 6 hours and then regular diet * Can take magic mouth wash ad rachael for post banding discomfort x 2-3 days * Start carafate 1g liquid PO QID for prevention of post-banding ulcers * Cont Carvedilol 3.125 BID. HR has been in 60s so unable to uptitrate. * Will discuss referral to IR for pre-emptive TIPS
== END 2024-09-04 12:47 | disposition home or self-care (01) ==
LOC: HO.SSS 07:40
PROVIDERS: PCP Student in an Organized Health Care Education/Training Program; Visit Provider Internal Medicine
PROC: 0DJ08ZZ Inspection of Upper Intestinal Tract, Via Natural or Artificial Opening Endoscopic (ICD-10-PCS; CPT 43235; principal; 2024-09-04 11:00)
DX: K74.60 Unspecified cirrhosis of liver (principal); I85.00 Esophageal varices without bleeding; K31.7 Polyp of stomach and duodenum; K76.6 Portal hypertension; I86.4 Gastric varices; K31.89 Other diseases of stomach and duodenum; K44.9 Diaphragmatic hernia without obstruction or gangrene; D61.818 Other pancytopenia; D50.9 Iron deficiency anemia, unspecified; I10 Essential (primary) hypertension; B19.20 Unspecified viral hepatitis C without hepatic coma; Z79.899 Other long term (current) drug therapy; Z88.6 Allergy status to analgesic agent; F17.210 Nicotine dependence, cigarettes, uncomplicated; Z98.890 Other specified postprocedural states
CPT/HCPCS: 43244; 86850; 86900; 86901; J2003; J2704; P9073

== ENCOUNTER → 2024-09-04 07:40 | Outpatient (BNV) | payer MEDICAID, SELFPAY | PROVIDERS: PCP Student in an Organized Health Care Education/Training Program; Visit Provider Internal Medicine | DX: I85.01 Esophageal varices with bleeding (principal); K74.60 Unspecified cirrhosis of liver; K31.7 Polyp of stomach and duodenum; K31.89 Other diseases of stomach and duodenum | CPT/HCPCS: 43244 ==

== ENCOUNTER 2024-10-08 19:30 | Inpatient (IN) | payer MEDICAID, SELFPAY ==
[2024-10-08] VITALS (12 sets, daily range): BP systolic 131–170; BP diastolic 50–100; PULSE 86–102; RESP 16–18; TEMP 37.2–38.8; O2SAT 95–99; BMI 30.8
--- NOTE | ~2024-10-08 | IR_ITS ---
Procedure: TIPS placement HISTORY/INDICATION: Cirrhosis, portal hypertension, gastroesophageal varices, ascites, portal vein thrombus PROCEDURE/TECHNIQUE: Patient was placed supine in the angiography table. General anesthesia was induced by anesthesiologist (see separately reported notes for details). The right neck was sterilely prepped and draped. Preliminary ultrasound demonstrates widely patent right internal jugular vein. The right internal jugular vein was accessed with a 21-gauge micropuncture needle under direct ultrasound guidance with permanent recordings and direct visualization of the needle entering into the vein. The needle was exchanged for a transitional dilator over a 0.018 guidewire. A 0.035 guidewire was advanced to the IVC. A 10 [place] sheath was placed. A hockey-stick catheter was used to catheterize the right hepatic vein. This was confirmed with venography. The sheath was then advanced into the right hepatic vein. A [employer] TIPS set was then used to gain access to the right portal vein from the right hepatic vein via transparenchymal approach with the needle with a single stick. Position was confirmed with portal venography. A 0.035 wire was advanced into the portal vein and then down the SMV. A pigtail catheter was positioned in the SMV. Portal venography was performed. Thrombus within the confluence of the SMV and splenic vein and proximal portal vein is noted in concordance with findings on recent cross-sectional imaging. An attempt was made to obtain portal and systemic pressures but was aborted due to technical difficulty with equipment. The tract was dilated up to 6 mm and the sheath was then advanced into the portal vein. Measurements were obtained. An 8 mm x 8 cm Arrington Viatorr TIPS was then deployed from the hepatic vein to the portal vein. The TIPS stent was postdilated with an 8 mm OPTOMETRY PROFESSOR balloon. Portal venogram demonstrates wide patency of the TIPS stent. There is thrombus in the central portion of the splenic vein at the confluence with the SMV extending slightly into the main portal vein but no impedance to flow. We elected to stage potential intervention for the thrombus given the procedure time and excellent flow within the stent. Again, portal and systemic pressures were unable to be obtained due to technical difficulties. The sheath was removed and hemostasis was achieved with manual compression. A sterile dressing was applied. Patient tolerated procedure well. Patient was extubated and transferred to PACU in stable condition. IR/IR TIPS insertion IMPRESSION: Successful placement of TIPS stent as detailed above. PLAN: Admit to ICU for overnight observation. Follow-up TIPS ultrasound and clinic visit to be arranged after discharge Electronically signed by: Abraham Ness MD 10/15/2024 04:30 PM RUBI CALHOUN
--- NOTE | ~2024-10-08 | CT_ITS ---
CLINICAL HISTORY: pain, divertic? CT abdomen and pelvis with contrast Comparison: CT/MI/SR - CT ABDOMEN PELVIS W IV CON - 05/26/24 19:26 EDT Findings: Mild atelectasis at the lung bases. Distal esophageal wall thickening is again noted with increased paraesophageal edema. Increased burden of thrombus at the confluence of distal splenic vein and main portal vein. Most evident on image 39 versus prior image 35. Otherwise, the portal venous system, and mesenteric venous system remains patent. The mesenteric and renal arteries remain patent. Significant fat stranding around the proximal inferior mesenteric artery is unchanged and of uncertain etiology. Findings of decompensated portal hypertension include small amount of ascites, massive splenomegaly, large main portal vein, recanalized umbilical vein collateral, and gastroesophageal varices. Small right superior renal cyst. Gallbladder and solid organs otherwise unremarkable. No urolithiasis. Small umbilical hernia contains fat and umbilical vein collateral. No bowel obstruction, pneumoperitoneum, or pneumatosis. Normal appendix. No acute fracture. Impression: 1. Increased thrombus at the confluence of splenic and main portal veins. This results in up to 75 percent stenosis at the distal splenic vein, and no more than 50 percent stenosis of the main portal vein. 2. Findings of decompensated portal hypertension including new ascites. 3. Distal esophageal wall thickening in periesophageal edema has increased since the prior exam. 4. Additional findings as above. This document has been electronically signed by: Raghu Quezada MD on 10/08/2024 21:40:31
--- NOTE | ~2024-10-08 | US_ITS ---
CLINICAL HISTORY: abd pain and fever, new (small) ascites Limited abdominal ultrasound. Comparison: CT scan of the abdomen and pelvis from Findings: The study is limited to a four-quadrant examination for paracentesis. On the limited images provided there is a small amount of ascites. No other abnormalities are noted. Impression: Small amount of ascites. This document has been electronically signed by: Charles Alegre MD on 10/09/2024 12:24:42
--- NOTE | ~2024-10-08 | XR_ITS ---
CLINICAL HISTORY: htn 1 view chest x-ray Comparison: CR/SR - XR CHEST 1V - 03/30/24 12:39 EDT Findings: No consolidation or effusion. Heart size is normal. No acute fracture. IMPRESSION: 1. No acute findings. This document has been electronically signed by: Raghu Quezada MD on 10/08/2024 21:42:35
--- NOTE | 2024-10-08 19:41 | ECG_ITS ---
Test Reason : HTN Blood Pressure : */* mmHG Vent. Rate : 95 BPM Atrial Rate : 95 BPM P-R Int : 124 ms QRS Dur : 70 ms QT Int : 332 ms P-R-T Axes : 23 15 53 degrees QTcB Int : 417 ms Normal sinus rhythm Normal ECG When compared with ECG of 26-May-2024 18:26, No significant change was found Referred By: Bhavana Christensen Electronically Signed By: ЕКАТЕРИНА ZARAGOZA
--- NOTE | 2024-10-08 20:07 | ED.GENADULT ---
HPI - General Adult General Chief complaint: General Medical Stated complaint: ams, abd pain x1hr Time Seen by Provider: 10/08/24 19:41 Source: patient Limitations: no limitations and language barrier History of Present Illness ED Provider: Bhavana Christensen PA-C HPI narrative: 63-year-old male with a history of housing insecurity, cirrhosis, hepatitis-B and C, pancytopenia, prior upper GI bleed, hypertension, presents with the abdominal pain x 1 day. . Pain over central abdomen, unable to describe the nature of his discomfort, but indicates it is severe and nonradiating. Associated sore throat and diarrhea, denies nausea vomiting or fever. Denies known sick contacts with same symptoms. Related Data Home Medications ?Medication ?Instructions ?Recorded ?Confirmed amlodipine 10 mg tablet 10 mg PO DAILY 12/03/23 09/04/24 ascorbic acid (vitamin C) 250 mg 250 mg PO DAILY 12/03/23 09/04/24 tablet ferrous sulfate 325 mg (65 mg 325 mg PO DAILY 12/03/23 09/04/24 iron) tablet furosemide 20 mg tablet 20 mg PO DAILY 12/03/23 09/04/24 Previous Rx's ?Medication ?Instructions ?Recorded omeprazole 20 mg capsule,delayed 20 mg PO DAILY #90 caps 05/28/24 release carvedilol 3.125 mg tablet 3.125 mg PO BID 30 days #60 tabs 08/29/24 sucralfate 1 gram tablet (Carafate) 1 g PO TID 14 days #42 tabs 09/05/24 Allergies Allergy/AdvReac Type Severity Reaction Status Date / Time aspirin AdvReac Severe stomach Verified 10/08/24 19:51 bleeding NSAIDS (Non-Steroidal AdvReac Severe liver Verified 10/08/24 19:51 Anti-Inflamma concerns Review of Systems Review of Systems: Yes all other systems are reviewed and are negative Constitutional: Constitutional: Denies fatigue, Denies fever(s) and Reports malaise ENT: Reports sore throat Cardiovascular: Cardiovascular: Denies chest pain and Denies dyspnea Respiratory: Respiratory: Denies cough and Denies dyspnea Gastrointestinal: Gastrointestinal: Reports abdominal pain, Reports diarrhea, Denies nausea and Denies vomiting Endocrine: Endocrine: Denies fatigue PMFSH Past Medical History Attestation statement: The following information was validated with the patient. Medical History Esophageal varices Pancytopenia Iron deficiency anemia Cirrhosis Hepatitis C HBP (high blood pressure) Surgical History H/O left inguinal hernia repair H/O eye surgery History of esophagogastroduodenoscopy (EGD) H/O colonoscopy Family History Family History Maternal Grandmother Breast CA Uterus cancer Mother Primary lung cancer of unknown cell type Social History Social History Household Members: None Household Members Other:: long-term Housing: Other Housing Other:: long-term Are you a primary child care associate teacher to a significant other at home: No Do you presently have visiting nurse or other home services: No Patient Tobacco Use Status: Current everyday Tobacco user Tobacco use type: Cigarette Cigarette Packs Per Day: 1 Smoked in Last 30 Days: Yes Second Hand Smoke Exposure: No Use of substances other than those prescribed or required for medical reasons: No Advance Directives: Yes Advance Directives on File: Yes Advance Directives Date on File: 04/02/24 Do you have a plan to hurt others: No Plan service: No Current occupational status: retired Physical Exam ED Vital Signs: Vital Signs - 24 hr 10/08/24 19:45 10/08/24 20:00 10/08/24 20:05 Temperature 99 F 102 F H Pulse Rate 94 93 Respiratory Rate 18 Blood Pressure 164/67 H 164/67 H Pulse Oximetry 99 96 Oxygen Delivery Method Room Air Room Air 10/08/24 20:15 10/08/24 20:16 10/08/24 20:30 Temperature Pulse Rate 93 91 90 Respiratory Rate 16 16 16 Blood Pressure 142/70 H 131/80 Pulse Oximetry 98 97 97 Oxygen Delivery Method Room Air Room Air Room Air 10/08/24 21:01 10/08/24 21:13 10/08/24 21:16 Temperature 101.4 F H Pulse Rate 88 86 Respiratory Rate 16 16 Blood Pressure 133/72 145/50 H Pulse Oximetry 96 Oxygen Delivery Method Room Air 10/08/24 21:30 10/08/24 21:45 10/08/24 22:00 Temperature Pulse Rate 86 92 93 Respiratory Rate 16 16 16 Blood Pressure 156/65 H 160/70 H 160/70 H Pulse Oximetry 97 97 98 Oxygen Delivery Method Room Air Room Air Room Air 10/08/24 22:00 Temperature Pulse Rate 86 Respiratory Rate 16 Blood Pressure 145/61 H Pulse Oximetry 97 Oxygen Delivery Method Room Air Oxymask BMI result Body Mass Index 30.8 Const Other: Alert Orientation/consciousness: patient oriented x3 HENMT Other: Dry oral mucosa, oropharynx is erythematous without overlying exudate, uvula midline Eyes Other: Right glass eye Resp Effort & Inspection: normal respiratory effort Cardio Other: Normal peripheral perfusion GI Other: Abdomen is soft, moderate generalized tenderness to palpation with mild involuntary guarding, no distention Skin Other: Warm dry no rash Neuro General: patient oriented x3, no focal motor deficits and CN's II-XI intact bilaterally Psych Other: Cooperative Course Reevaluation(s) Reevaluation #1: Sepsis identified the patient is febrile rectally 101.2, we will be adding blood cultures, lactic acid,... We will be giving 500 mL bolus of IV fluid as he is normotensive, he does not require weight based IV fluid resuscitation. We will start empiric ceftriaxone and IV Tylenol. Time: 20:07 Medications Administered Discontinued Medications Generic Name Dose Route Start Last Admin Trade Name Freq PRN Reason Stop Dose Admin Ceftriaxone Sodium 2 gm 10/08/24 20:06 10/08/24 20:23 Ceftriaxone Sodium 2 Gm Vial IVPUSH 10/08/24 20:07 2 gm ONCE ONE Administration Sodium Chloride 500 mls @ 500 mls/hr 10/08/24 20:06 10/08/24 21:30 Ns IV 10/08/24 21:05 Infused .Q1H ONE Infusion Acetaminophen 1,000 mg in 100 mls @ 400 mls/hr 10/08/24 20:06 10/08/24 21:03 Ofirmev IV 10/08/24 20:20 Infused ONCE ONE Infusion Medical Decision Making Medical Decision Making MDM Narrative: 63-year-old male with a history of housing insecurity, cirrhosis, hepatitis-B and C, pancytopenia, prior upper GI bleed, hypertension, presents with the abdominal pain x 1 day. . Pain over central abdomen, unable to describe the nature of his discomfort, but indicates it is severe and nonradiating. Associated sore throat and diarrhea, denies nausea vomiting or fever. Denies known sick contacts with same symptoms. Problem: Cirrhosis, hepatitis, prior GI bleed History: Per patient I have considered the following differential diagnoses: Viral syndrome, strep pharyngitis, diverticulitis, viral gastroenteritis, ascites, SBP Plan: Patient's pain is generalized, however seems to be most focal across lower abdomen, given concurrent diarrhea I am considering diverticulitis. We will be obtaining a CT scan. Patient was also found to be febrile, this could also be viral gastroenteritis given this illness has been prevalent within the community. We will be screening basic labs, viral panel, blood cultures, lactic acid. We will be starting empiric ceftriaxone, giving 500 mL of normal saline, and IV Tylenol. Thought about SBP secondary to ascites, if he has legitimate ascites per CT scan, I will perform a diagnostic tap. Regard to the throat pain, we will rule out strep throat, likely viral, which would further coincide with a viral gastroenteritis. EMS had reported that the patient had a hypertensive urgency, that is not the case, he is 164 systolic, I had ordered an EKG based on that premise. The patient was not having chest pain. I have independently reviewed the following tests: Labs: Stable pancytopenia, left shift noted, no electrolyte abnormalities, LFTs are stable, strep screen negative, viral panel negative , lactic acid 2.6 EKG: Normal sinus rhythm, rate of 95, no ischemic changes no ectopy QTC 417 CT abdomen and pelvis: Findings: Mild atelectasis at the lung bases. Distal esophageal wall thickening is again noted with increased paraesophageal edema. Increased burden of thrombus at the confluence of distal splenic vein and main portal vein. Most evident on image 39 versus prior image 35. Otherwise, the portal venous system, and mesenteric venous system remains patent. The mesenteric and renal arteries remain patent. Significant fat stranding around the proximal inferior mesenteric artery is unchanged and of uncertain etiology. Findings of decompensated portal hypertension include small amount of ascites, massive splenomegaly, large main portal vein, recanalized umbilical vein collateral, and gastroesophageal varices. Small right superior renal cyst. Gallbladder and solid organs otherwise unremarkable. No urolithiasis. Small umbilical hernia contains fat and umbilical vein collateral. No bowel obstruction, pneumoperitoneum, or pneumatosis. Normal appendix. No acute fracture. Impression: 1. Increased thrombus at the confluence of splenic and main portal veins. This results in up to 75 percent stenosis at the distal splenic vein, and no more than 50 percent stenosis of the main portal vein. 2. Findings of decompensated portal hypertension including new ascites. 3. Distal esophageal wall thickening in periesophageal edema has increased since the prior exam. 4. Additional findings as above. This document has been electronically signed by: Raghu Quezada MD on 10/08/2024 21:40:31 I can not safely perform a diagnostic paracentesis secondary to his thrombocytopenia, platelet count is currently 23, viewed abdomen with US at bedside, pocket visualized superior to bladder on right side Chest x-ray:Findings: No consolidation or effusion. Heart size is normal. No acute fracture. IMPRESSION: 1. No acute findings. This document has been electronically signed by: Raghu Quezada MD on 10/08/2024 21:42:35 Lab Data 10/08/24 20:02 10/08/24 20:02 Labs: Lab Results 10/08/24 10/08/24 10/08/24 Range/Units 20:02 20:03 20:14 WBC 2.9 L (4.8-10.8) X10*3/uL RBC 4.19 L (4.60-5.80) X10*6/uL Hgb 11.6 L (14.0-18.0) g/dl Hct 35.8 L (42.0-52.0) % MCV 85.4 (80.0-98.0) fL MCH 27.7 (27.0-33.0) pg MCHC 32.4 (31.0-36.0) g/dl RDW 14.5 (11.0-16.0) % Plt Count 23 L (160-400) X10*3/uL MPV Not Reportable Immature Gran % (Auto) 0.3 (0.0-0.4) % Neut % (Auto) 76.0 H (45-73) % Lymph % (Auto) 15.0 L (20-40) % [place] % (Auto) 7.7 (2-11) % Eos % (Auto) 1.0 (0-4) % Baso % (Auto) 0.0 (0-2) % Lymph # (Auto) 0.4 L (1.2-4.9) X10*3/uL [place] # (Auto) 0.2 (0.1-1.2) X10*3/uL Eos # (Auto) 0.0 (0.0-0.4) X10*3/uL Baso # (Auto) 0.0 (0.0-0.2) X10*3/uL Abs Immat Gran (auto) 0.01 (0.00-0.03) X10*3/uL Absolute Neuts (auto) 2.2 (2.0-8.3) x10*3/uL Absolute Nucleated RBC 0.000 (0.0-0.012) X10*3/uL Nucleated RBC % (auto) 0.0 (0.0-0.2) /100WBC Sodium 138 (135-145) mmol/L Potassium 4.5 (3.3-5.1) mmol/L Chloride 110 H (96-108) mmol/L Carbon Dioxide 25 (22-29) mmol/L Anion Gap 8 L (12-20) BUN 10 (9-16) mg/dL Creatinine 0.74 (0.5-1.4) mg/dL Estim Creat Clear Calc 121.2 Estimated GFR > 60 Random Glucose 110 (60-115) mg/dL Lactic Acid 2.6 H* (0.5-2.0) mmol/L Lactic Acid F/U @ 2Hr (0.5-2.0) mmol/L Calcium 8.9 (8.4-10.2) mg/dL Magnesium 2.1 (1.6-2.6) mg/dL Total Bilirubin 0.7 (0.0-1.0) mg/dL AST 40 H (5-37) U/L ALT 28 (0-40) U/L Alkaline Phosphatase 126 H (39-117) U/L Troponin I High Sens 7.4 (<3.5-35.0) ng/L Total Protein 7.6 (6.5-8.0) g/dL Albumin 3.5 (3.5-5.0) g/dL Lipase 26 (8-78) U/L Ethyl Alcohol < 10 mg/dL Influenza Type A (PCR) NEGATIVE (Negative) Influenza Type B (PCR) NEGATIVE (Negative) RSV RNA Qual (PCR) NEGATIVE (Negative) SARS-CoV-2 RNA (RT-PCR) NEGATIVE (Negative) S. pyogenes GrpA JUSTIN Negative (Negative) 10/08/24 10/08/24 Range/Units 22:20 22:40 WBC (4.8-10.8) X10*3/uL RBC (4.60-5.80) X10*6/uL Hgb (14.0-18.0) g/dl Hct (42.0-52.0) % MCV (80.0-98.0) fL MCH (27.0-33.0) pg MCHC (31.0-36.0) g/dl RDW (11.0-16.0) % Plt Count (160-400) X10*3/uL MPV Immature Gran % (Auto) (0.0-0.4) % Neut % (Auto) (45-73) % Lymph % (Auto) (20-40) % [place] % (Auto) (2-11) % Eos % (Auto) (0-4) % Baso % (Auto) (0-2) % Lymph # (Auto) (1.2-4.9) X10*3/uL [place] # (Auto) (0.1-1.2) X10*3/uL Eos # (Auto) (0.0-0.4) X10*3/uL Baso # (Auto) (0.0-0.2) X10*3/uL Abs Immat Gran (auto) (0.00-0.03) X10*3/uL Absolute Neuts (auto) (2.0-8.3) x10*3/uL Absolute Nucleated RBC (0.0-0.012) X10*3/uL Nucleated RBC % (auto) (0.0-0.2) /100WBC Sodium (135-145) mmol/L Potassium (3.3-5.1) mmol/L Chloride (96-108) mmol/L Carbon Dioxide (22-29) mmol/L Anion Gap (12-20) BUN (9-16) mg/dL Creatinine (0.5-1.4) mg/dL Estim Creat Clear Calc Estimated GFR Random Glucose (60-115) mg/dL Lactic Acid (0.5-2.0) mmol/L Lactic Acid F/U @ 2Hr 1.8 (0.5-2.0) mmol/L Calcium (8.4-10.2) mg/dL Magnesium (1.6-2.6) mg/dL Total Bilirubin (0.0-1.0) mg/dL AST (5-37) U/L ALT (0-40) U/L Alkaline Phosphatase (39-117) U/L Troponin I High Sens 7.3 (<3.5-35.0) ng/L Total Protein (6.5-8.0) g/dL Albumin (3.5-5.0) g/dL Lipase (8-78) U/L Ethyl Alcohol mg/dL Influenza Type A (PCR) (Negative) Influenza Type B (PCR) (Negative) RSV RNA Qual (PCR) (Negative) SARS-CoV-2 RNA (RT-PCR) (Negative) S. pyogenes GrpA JUSTIN (Negative) Discharge Plan Discharge Clinical Impression: Cirrhosis of liver with ascites, SBP (spontaneous bacterial peritonitis), Sepsis Patient Disposition: Admitted As Inpatient
[2024-10-08 20:12] LABS: MANUAL DIFF FLAG NO
[2024-10-08 20:19] LABS: IDNOW Serial# 08D9AD1C; Strep A Nucleic Acid Negative (Negative)
[2024-10-08 20:20] LABS: Hematocrit 35.8 % (42.0-52.0); Hemoglobin 11.6 g/dl (14.0-18.0); Imm Gran Abs Auto 0.01 X10*3/uL (0.00-0.03); Imm Gran Pct Auto 0.3 % (0.0-0.4); Lymphocytes Absolute Auto 0.4 X10*3/uL (1.2-4.9); Mean Corpuscular HGB Conc 32.4 g/dl (31.0-36.0); Mean Corpuscular Hemoglobin 27.7 pg (27.0-33.0); Mean Corpuscular Volume 85.4 fL (80.0-98.0); Monocytes Absolute Auto 0.2 X10*3/uL (0.1-1.2); Monocytes Percent Auto 7.7 % (2-11); Neutrophils Absolute Auto 2.2 x10*3/uL (2.0-8.3); Platelet Count 23 X10*3/uL (160-400); Red Blood Count 4.19 X10*6/uL (4.60-5.80); Red Cell Distribution Width 14.5 % (11.0-16.0); White Blood Count 2.9 X10*3/uL (4.8-10.8)
--- OUTSIDE RECORDS SUMMARY | 2024-10-08 20:22 | XMS_ITS | Encounter Summary ---
Author Organization [employer] Address [address] [place] [address] Care Team Providers Care Wire Setter Name Role Phone Leta Soto MD Primary Care Pro vider Yajaira Antonio Unavailable Encounter Details Date Type Department Care Team (Late st Contact Info) Description 12/17/2023 Orders Only [facility] [address] [place] [address] Tatyana Mosquera FNP [address] [place] [address] Social History Tobacco Use Types Packs/Day Years Used Date Smoking Tobacco: Every Day Cigarettes Passive Smoke Exposure: Current Comments:Pt smokes since 15 y o until now. Per pt around 3 cigs / day. Smoking years 48. PQT calc 7.05 Alcohol Use Standard Drinks/Week Comments Never 0 (1 standard drink = 0.6 oz pur e alcohol) Depression Answer Date Recorded Patient Health Questionnaire-9 Score 18 04/09/2023 Housing Stability Answer Date Recorded What is your housing situation today? I do not have housing (Staying with others, in a hotel, in a [facility], living outside on the street, on a beach, in a car, or in a park 06/18/[address] you li ve. Do you have problems with any of the following? None of the above 06/18/2023 Food Insecurity Answer Date Recorded Within the past 12 months, y ou worried that your food would run out before you got money to buy more: Sometimes True 2022 Within the past 12 months,th e food you bought just didn't last and you didn't have enough money to get more: Often true 06/25/2023 Transportation Answer Date Recorded In the past 12 months, has l ack of transportation kept you from medical appts, meetings, work or from getting things needed for daily living? Yes, it has kept me from non-medical meetings, work, or getting things that I need 06/18/2023 Utilities Answer Date Recorded In the past 12 months, has t he electric, gas, oil or water company threatened to shut off services in your home? No 06/25/2023 Depression Answer Date Recorded Patient Health Questionnaire-2 Score 0 10/25/2023 Sex and Gender Information Value Date Recorded Sex Assigned at Male 04/05/2023 12:03 PM EDT Legal Sex Male 12:23 PM EDT Gender Identity Male 04/05/2023 12:03 PM EDT Sexual Orientation Don't know 05/26/2023 6: 44 PM EDT Sexual Orientation Straight 05/26/2023 6: 44 PM EDT documented as of this encounter Plan of Treatment Not on file documented as of this encounter Goals Goal Patient Goal Type Associated Problems Recent Progress Patient-Stated? Author Blood Pressure < 140/90 Blood Pressure 149/78(2023 1:02 PM EST) No Loan [employer] Record your blood pressure once per day Blood Pressure No [employer] documented as of this encounter Visit Diagnoses Not on filedocumented in this encounter Additional Health Concerns Assessment Noted Time PHQ-9 Depression Total Score: 18 023 11:23 AM EDT documented as of this encounter Care Teams Wire Setter Relationship Specialty Start Date End Date Leta Soto MD [address] [place] [id number] PCP - General Internal Medicine 04/11/23 Yajaira Antonio [address] [place] [address] Drive [address] [place] [address] Gastroenterology 09/04/24 documented as of this encounter
[2024-10-08] MEDS: 0.9 % Sodium Chloride 500 ML IV (20:23)
[2024-10-08] MEDS: cefTRIAXone sodium 2 GM VIAL IVPUSH (20:23)
[2024-10-08 20:26] LABS: Ethanol < 10 mg/dL
[2024-10-08 20:28] LABS: Alanine Aminotransferase 28 U/L (0-40); Albumin Level 3.5 g/dL (3.5-5.0); Alkaline Phosphatase 126 U/L (39-117); Anion Gap 8 (12-20); Aspartate Amino Transferase 40 U/L (5-37); Bilirubin Total 0.7 mg/dL (0.0-1.0); Blood Urea Nitrogen 10 mg/dL (9-16); Calcium 8.9 mg/dL (8.4-10.2); Carbon Dioxide 25 mmol/L (22-29); Chloride 110 mmol/L (96-108); Creatinine Clr Calc Pharmacy 121.2; Estimated Glomerular Filt Rate > 60; Glucose Random 110 mg/dL (60-115); Lipase 26 U/L (8-78); Magnesium 2.1 mg/dL (1.6-2.6); Potassium 4.5 mmol/L (3.3-5.1); Sodium 138 mmol/L (135-145); Total Protein 7.6 g/dL (6.5-8.0)
[2024-10-08 20:35] LABS: Troponin-I High Sensitivity 7.4 ng/L (<3.5-35.0)
[2024-10-08 20:46] LABS: Lactic Acid 2.6 mmol/L (0.5-2.0)
[2024-10-08] MEDS: Acetaminophen 1,000 MG/100 ML PIGGYBACK 400 MG IV (20:48)
[2024-10-08 20:49] LABS: Influenza A PCR NEGATIVE (Negative); Influenza B PCR NEGATIVE (Negative); Resp Syncy Virus RNA Qual PCR NEGATIVE (Negative); SARS COV2 PCR INHOUSE NEGATIVE (Negative)
--- NOTE | 2024-10-08 20:56 | MHC.EDTECH ---
[facility] from [facility] when pt is ready for d/c
[2024-10-08 22:19] LABS: Reflex Lactate? Lactic Acid Added
[2024-10-08 22:47] LABS: Troponin-I High Sensitivity 7.3 ng/L (<3.5-35.0)
[2024-10-08 23:00] LABS: ~Lactic Acid-LAB USE ONLY 1.8 mmol/L (0.5-2.0)
--- NOTE | 2024-10-08 23:01 | PM.IMHP ---
History of Present Illness Date of Service: 10/08/24 Chief Complaint: abd pain 63M PMH HCV cirrhosis decompensated with varices, portal and splenic vein thrombosis, chronic thrombocytopenia, hypertension, noncompliant with medications presented with abdominal pain. Patient states pain started suddenly on day of presentation centered around the umbilicus, constant, tender, associated with fevers and chills, worse on ambulation. In ED, fever to 102, CT abdomen showed increased thrombus of the confluence of splenic and main portal veins, decompensated portal hypertension including new small ascites, distal esophageal wall thickening in paraesophageal edema, chronic finding of fat stranding around proximal inferior mesenteric artery, massive splenomegaly. Review of Systems Review of Systems: Yes all other systems are reviewed and are negative [facility] Medical History Esophageal varices Pancytopenia Iron deficiency anemia Cirrhosis Hepatitis C HBP (high blood pressure) Family History Maternal Grandmother Breast CA Uterus cancer Mother Primary lung cancer of unknown cell type Surgical History H/O left inguinal hernia repair H/O eye surgery History of esophagogastroduodenoscopy (EGD) H/O colonoscopy Social History Household Members: None Household Members Other:: fpc Housing: Other Housing Other:: fpc Are you a primary sub acute care nurse to a significant other at home: No Do you presently have visiting nurse or other home services: No Patient Tobacco Use Status: Current everyday Tobacco user Tobacco use type: Cigarette Cigarette Packs Per Day: 1 Smoked in Last 30 Days: Yes Second Hand Smoke Exposure: No Use of substances other than those prescribed or required for medical reasons: No Advance Directives: Yes Advance Directives on File: Yes Advance Directives Date on File: 04/02/24 Do you have a plan to hurt others: No Plan service: No Current occupational status: retired Meds Allergies Allergy/AdvReac Type Severity Reaction Status Date / Time aspirin AdvReac Severe stomach Verified 10/08/24 19:51 bleeding NSAIDS (Non-Steroidal AdvReac Severe liver Verified 10/08/24 19:51 Anti-Inflamma concerns Active Medications: Current Medications Acetaminophen (Acetaminophen 325 Mg Tablet) 650 mg PO Q6H PRN PRN Reason: Pain, Mild 1-3,fever,headache Calcium Carbonate (Calcium Carbonate 750 Mg Tab.Chew) 750 mg PO Q4H PRN PRN Reason: Heartburn Ceftriaxone Sodium (Ceftriaxone Sodium 1 Gm Vial) 1 gm IVPUSH Q24H [facility] Magnesium Hydroxide (Milk Of Magnesia 30 Ml Oral.Susp) 30 ml PO DAILY PRN PRN Reason: Constipation Melatonin (Melatonin 3 Mg Tablet) 6 mg PO BEDTIME PRN PRN Reason: Insomnia Sodium Chloride (0.9 % Sodium Chloride Flush 3 Ml Syringe) 3 ml IVFLUSH QSHIFT [facility] Home Medications ?Medication ?Instructions ?Recorded ?Confirmed ?Last Taken ?Type amlodipine 10 mg tablet 10 mg PO DAILY 12/03/23 09/04/24 04/29/24 History ascorbic acid (vitamin C) 250 mg 250 mg PO DAILY 12/03/23 09/04/24 Unknown History tablet ferrous sulfate 325 mg (65 mg 325 mg PO DAILY 12/03/23 09/04/24 Unknown History iron) tablet furosemide 20 mg tablet 20 mg PO DAILY 12/03/23 09/04/24 Unknown History Physical Exam Vital Signs and Narrative: Vital Signs: Last Vital Signs Temp 101.4 F H 10/08/24 21:13 Pulse 86 10/08/24 22:00 Resp 16 10/08/24 22:00 BP 145/61 H 10/08/24 22:00 Pulse Ox 97 10/08/24 22:00 O2 Del Method Room Air, Oxymask 10/08/24 22:00 BMI result Body Mass Index 30.8 General: AO X 3, no acute distress Resp: CTA bilateral, no accessory muscles used CVS: S1,S2,RRR GI: soft, tender, non distended, small reducible hernia Neuro: motor grossly intact, alert Psych: appropriate affect, appropriate insight Results Labs 10/08/24 20:02 10/08/24 20:02 Labs: Laboratory Results - last 24 hr 10/08/24 10/08/24 10/08/24 20:02 20:03 20:14 MCV 85.4 MCH 27.7 MCHC 32.4 RDW 14.5 Plt Count 23 L MPV Not Reportable Immature Gran % (Auto) 0.3 Neut % (Auto) 76.0 H Lymph % (Auto) 15.0 L Wilkinson % (Auto) 7.7 Eos % (Auto) 1.0 Baso % (Auto) 0.0 Lymph # (Auto) 0.4 L Wilkinson # (Auto) 0.2 Eos # (Auto) 0.0 Baso # (Auto) 0.0 Abs Immat Gran (auto) 0.01 Absolute Neuts (auto) 2.2 Absolute Nucleated RBC 0.000 Nucleated RBC % (auto) 0.0 Anion Gap 8 L Estim Creat Clear Calc 121.2 Estimated GFR > 60 Random Glucose 110 Lactic Acid 2.6 H* Lactic Acid F/U @ 2Hr Calcium 8.9 Magnesium 2.1 Total Bilirubin 0.7 AST 40 H ALT 28 Alkaline Phosphatase 126 H Troponin I High Sens 7.4 Total Protein 7.6 Albumin 3.5 Lipase 26 Ethyl Alcohol < 10 Influenza Type A (PCR) NEGATIVE Influenza Type B (PCR) NEGATIVE RSV RNA Qual (PCR) NEGATIVE SARS-CoV-2 RNA (RT-PCR) NEGATIVE S. pyogenes GrpA JUSTIN Negative 10/08/24 10/08/24 22:20 22:40 MCV MCH MCHC RDW Plt Count MPV Immature Gran % (Auto) Neut % (Auto) Lymph % (Auto) Wilkinson % (Auto) Eos % (Auto) Baso % (Auto) Lymph # (Auto) Wilkinson # (Auto) Eos # (Auto) Baso # (Auto) Abs Immat Gran (auto) Absolute Neuts (auto) Absolute Nucleated RBC Nucleated RBC % (auto) Anion Gap Estim Creat Clear Calc Estimated GFR Random Glucose Lactic Acid Lactic Acid F/U @ 2Hr 1.8 Calcium Magnesium Total Bilirubin AST ALT Alkaline Phosphatase Troponin I High Sens 7.3 Total Protein Albumin Lipase Ethyl Alcohol Influenza Type A (PCR) Influenza Type B (PCR) RSV RNA Qual (PCR) SARS-CoV-2 RNA (RT-PCR) S. pyogenes GrpA JUSTIN Assessment and Plan (1) Thrombocytopenia: Status: Acute Plan 63M PMH HCV cirrhosis decompensated with varices, portal and splenic vein thrombosis, chronic thrombocytopenia, hypertension, noncompliant with medications presented with abdominal pain Sepsis and abdominal pain Empiric ceftriaxone Possible SBP, ascites seems too small to be able to sample Follow up cultures HCV with decompensated cirrhosis and progression of thrombosis and history of varices GI eval Can not have anticoagulation due to thrombocytopenia Restart Coreg Hypertension Amlodipine DVT prophylaxis-mechanical due to chronic thrombocytopenia Full Code Given sepsis and high-risk for decompensation due to decompensated cirrhosis expected require at least 2 midnights inpatient Quality Stroke Does the patient have a stroke diagnosis?: No VTE Prior VTE?: No VTE Risk Level:: Medical - moderate - high VTE Device Contraindication: N/A - Device Ordered VTE Drug Contraindication: Treatment Not Tolerated
[2024-10-08 23:14] LABS: Appearance Urine Clear; Color Urine Yellow; Glucose Urine UA Negative (Negative); Leukocyte Esterase Urine Negative (Negative); Nitrite Urine Negative (Negative); PH 8.5 (5.0-9.0); Specific Gravity - Urine >= 1.030 (1.005-1.025); Urine Blood Negative (Negative); Urine Ketones Negative (Negative); Urine Protein Negative (Neg-Trace)
[2024-10-08] MEDS: Morphine Sulfate 4 MG/ML CARTRIDGE IVPUSH (23:15)
[2024-10-08 23:16] LABS: Bacteria Urine None Seen (None Seen); Hyaline Casts Urine 0-2 /LPF (0-2); RBC Urine 0-2 /HPF (0-2); Squamous Epithelial Cell Urine 0-2 /HPF (0-2); WBC Urine 0-5 /HPF (0-5)
[2024-10-08] MEDS: 0.9 % Sodium Chloride Flush 3 ML SYRINGE IVFLUSH (23:18)
[2024-10-09] VITALS (10 sets, daily range): BP systolic 122–138; BP diastolic 55–64; PULSE 68–78; RESP 17–20; TEMP 36.5–37.4; O2SAT 97–99
[2024-10-09 05:29] LABS: Red Cell Distribution Width 14.6 % (11.0-16.0)
[2024-10-09 05:31] LABS: Hematocrit 32.9 % (42.0-52.0); Hemoglobin 10.4 g/dl (14.0-18.0); Mean Corpuscular HGB Conc 31.6 g/dl (31.0-36.0); Mean Corpuscular Hemoglobin 27.6 pg (27.0-33.0); Mean Corpuscular Volume 87.3 fL (80.0-98.0); Red Blood Count 3.77 X10*6/uL (4.60-5.80)
[2024-10-09 05:33] LABS: PLT ABN DIST 1; Platelet Count 21 X10*3/uL (160-400); White Blood Count 2.2 X10*3/uL (4.8-10.8)
[2024-10-09 05:49] LABS: Anion Gap 9 (12-20); Blood Urea Nitrogen 10 mg/dL (9-16); Calcium 8.6 mg/dL (8.4-10.2); Carbon Dioxide 25 mmol/L (22-29); Chloride 109 mmol/L (96-108); Creatinine Clr Calc Pharmacy 113.5; Estimated Glomerular Filt Rate > 60; Glucose Random 89 mg/dL (60-115); Potassium 4.2 mmol/L (3.3-5.1); Sodium 139 mmol/L (135-145)
--- NOTE | 2024-10-09 08:27 | P.PNIM_ITS ---
Subjective Subjective Date of Service: 10/09/24 Interval History: Complaining of lower abdominal pain but improved since admission, denies recurrent fever, no chills, feels hungry requesting for diet, no nausea, no vomiting, no hematemesis, no melena. Review of Systems All other system reviewed and are negative. Physical Exam 2 Vital Signs: Vital Signs: Last Vital Signs Temp 98.1 F 10/09/24 07:38 Pulse 70 10/09/24 07:38 Resp 20 10/09/24 07:38 BP 131/55 L 10/09/24 07:38 Pulse Ox 98 10/09/24 07:38 O2 Del Method Room Air 10/09/24 07:38 BMI result Body Mass Index 30.8 Const: Other: General: Awake alert x3, no acute distress Neck no JVD Anicteric sclera Resp: CTA bilateral, no accessory muscles used CVS: S1,S2,RRR GI: soft,nontender tender, non distended, small reducible hernia Neuro: motor grossly intact, alert Skin warm and dry Psych: appropriate affect, appropriate insight Objective Data Active Medications Acetaminophen (Acetaminophen 325 Mg Tablet) 650 mg PO Q6H PRN PRN Reason: Pain, Mild 1-3,fever,headache Amlodipine Besylate (Amlodipine Besylate 5 Mg Tablet) 5 mg PO DAILY [facility]; Protocol Calcium Carbonate (Calcium Carbonate 750 Mg Tab.Chew) 750 mg PO Q4H PRN PRN Reason: Heartburn Carvedilol (Carvedilol 3.125 Mg Tablet) 3.125 mg PO BID [facility]; Protocol Ceftriaxone Sodium (Ceftriaxone Sodium 1 Gm Vial) 1 gm IVPUSH Q24H [facility] Magnesium Hydroxide (Milk Of Magnesia 30 Ml Oral.Susp) 30 ml PO DAILY PRN PRN Reason: Constipation Melatonin (Melatonin 3 Mg Tablet) 6 mg PO BEDTIME PRN PRN Reason: Insomnia Sodium Chloride (0.9 % Sodium Chloride Flush 3 Ml Syringe) 3 ml IVFLUSH QSHIFT [facility] Last Admin: 10/08/24 23:18 Dose: 3 ml Documented By: GILLES Labs 10/10/24 10:04 10/10/24 10:04 Labs: Laboratory Results - last 24 hr 10/08/24 10/08/24 10/08/24 20:02 20:03 20:14 MCV 85.4 MCH 27.7 MCHC 32.4 RDW 14.5 Plt Count 23 L MPV Not Reportable Immature Gran % (Auto) 0.3 Neut % (Auto) 76.0 H Lymph % (Auto) 15.0 L Dickey % (Auto) 7.7 Eos % (Auto) 1.0 Baso % (Auto) 0.0 Lymph # (Auto) 0.4 L Dickey # (Auto) 0.2 Eos # (Auto) 0.0 Baso # (Auto) 0.0 Abs Immat Gran (auto) 0.01 Absolute Neuts (auto) 2.2 Absolute Nucleated RBC 0.000 Nucleated RBC % (auto) 0.0 Anion Gap 8 L Estim Creat Clear Calc 121.2 Estimated GFR > 60 Random Glucose 110 Lactic Acid 2.6 H* Lactic Acid F/U @ 2Hr Calcium 8.9 Magnesium 2.1 Total Bilirubin 0.7 AST 40 H ALT 28 Alkaline Phosphatase 126 H Troponin I High Sens 7.4 Total Protein 7.6 Albumin 3.5 Lipase 26 Urine Color Urine Appearance Urine pH Ur Specific [place] Urine Protein Urine Glucose (UA) Urine Ketones Urine Blood Urine Nitrite Ur Leukocyte Esterase Urine RBC Urine WBC Ur Squamous Epith Cells Urine Bacteria Hyaline Casts Ethyl Alcohol < 10 Influenza Type A (PCR) NEGATIVE Influenza Type B (PCR) NEGATIVE RSV RNA Qual (PCR) NEGATIVE SARS-CoV-2 RNA (RT-PCR) NEGATIVE S. pyogenes GrpA JUSTIN Negative 10/08/24 10/08/24 10/08/24 22:20 22:40 23:05 MCV MCH MCHC RDW Plt Count MPV Immature Gran % (Auto) Neut % (Auto) Lymph % (Auto) Dickey % (Auto) Eos % (Auto) Baso % (Auto) Lymph # (Auto) Dickey # (Auto) Eos # (Auto) Baso # (Auto) Abs Immat Gran (auto) Absolute Neuts (auto) Absolute Nucleated RBC Nucleated RBC % (auto) Anion Gap Estim Creat Clear Calc Estimated GFR Random Glucose Lactic Acid Lactic Acid F/U @ 2Hr 1.8 Calcium Magnesium Total Bilirubin AST ALT Alkaline Phosphatase Troponin I High Sens 7.3 Total Protein Albumin Lipase Urine Color Yellow Urine Appearance Clear Urine pH 8.5 Ur Specific [place] >= 1.030 H Urine Protein Negative Urine Glucose (UA) Negative Urine Ketones Negative Urine Blood Negative Urine Nitrite Negative Ur Leukocyte Esterase Negative Urine RBC 0-2 Urine WBC 0-5 Ur Squamous Epith Cells 0-2 Urine Bacteria None Seen Hyaline Casts 0-2 Ethyl Alcohol Influenza Type A (PCR) Influenza Type B (PCR) RSV RNA Qual (PCR) SARS-CoV-2 RNA (RT-PCR) S. pyogenes GrpA JUSTIN 10/09/24 04:55 MCV 87.3 MCH 27.6 MCHC 31.6 RDW 14.6 Plt Count 21 L MPV Not Reportable Immature Gran % (Auto) Neut % (Auto) Lymph % (Auto) Dickey % (Auto) Eos % (Auto) Baso % (Auto) Lymph # (Auto) Dickey # (Auto) Eos # (Auto) Baso # (Auto) Abs Immat Gran (auto) Absolute Neuts (auto) Absolute Nucleated RBC 0.000 Nucleated RBC % (auto) 0.0 Anion Gap 9 L Estim Creat Clear Calc 113.5 Estimated GFR > 60 Random Glucose 89 Lactic Acid Lactic Acid F/U @ 2Hr Calcium 8.6 Magnesium 2.0 Total Bilirubin AST ALT Alkaline Phosphatase Troponin I High Sens Total Protein Albumin Lipase Urine Color Urine Appearance Urine pH Ur Specific [place] Urine Protein Urine Glucose (UA) Urine Ketones Urine Blood Urine Nitrite Ur Leukocyte Esterase Urine RBC Urine WBC Ur Squamous Epith Cells Urine Bacteria Hyaline Casts Ethyl Alcohol Influenza Type A (PCR) Influenza Type B (PCR) RSV RNA Qual (PCR) SARS-CoV-2 RNA (RT-PCR) S. pyogenes GrpA JUSTIN Assessment and Plan (1) Splenic vein thrombosis: Status: Acute (2) Portal vein thrombosis: Status: Acute (3) Sepsis: Status: Acute (4) Bacteremia: Status: Acute Plan 63M PMH HCV cirrhosis decompensated with varices, portal and splenic vein thrombosis, chronic thrombocytopenia, hypertension, noncompliant with medications presented with abdominal pain Sepsis and abdominal pain on iv ceftriaxone, blood cultures x2 positive for gm positive cocci Placed on IV vancomycin, continue IV ceftriaxone started 10/09 Chest x-ray negative, UA unremarkable, CT abdomen and pelvis showed increased thrombus at the confluence of splenic and main portal veins, resulting is 75% stenosis of distal splenic vein and less than 50% stenosis of main portal vein, new mild ascites, distal esophageal wall thickening, no acute abscess Possible SBP, ascites seems too small to be able to sample Follow final blood cultures HCV with decompensated cirrhosis and progression of portal vein and splenic vein thrombosis with worsening portal hypertension and varices Can not have anticoagulation due to thrombocytopenia and high risk for bleed due to large varices noted on EGD 4 weeks ago cont. Coreg Case discussed with GI she recommend NPO, CBC INR and CMP daily GI will discuss with IR regarding feasibility of thrombectomy with tips Hypertension On Amlodipine 5 mg and Coreg 3.125 mg b.i.d. Chronic pancytopenia stable H&H, platelet 21,000 unchanged, no active bleed. DVT prophylaxis-mechanical due to chronic thrombocytopenia Full Code Given sepsis and high-risk for decompensation due to decompensated cirrhosis requiring expert consultation, patient will require continued inpatient hospitalization . Quality Stroke Does the patient have a stroke diagnosis?: No VTE Prior VTE?: No VTE Risk Level:: Medical - moderate - high VTE Device Contraindication: N/A - Device Ordered VTE Drug Contraindication: Treatment Not Tolerated
--- NOTE | 2024-10-09 08:40 | PHA.MEDREC ---
Addendum entered by Luisa Lynn [facility] 10/09/24 08:56: reviewed Original Note: Pharmacy Consult ? Medication Reconciliation Pharmacy has completed the medication reconciliation. Spoke with patient and he stated he was taking a small white pill two times a day but ran out over a month a go of that and never got it refilled. I asked if it was the Carvedilol 3.125mg tab and he stated it sounded familiar but was not entirely sure. He stated micki is not taking anything else OTC or prescription rubio and stated he does not want to due to his kidneys.
[2024-10-09] MEDS: 0.9 % Sodium Chloride Flush 3 ML SYRINGE IVFLUSH ×2 (09:07→20:59)
[2024-10-09] MEDS: carvediloL 3.125 MG TABLET PO ×2 (09:08→20:54)
[2024-10-09] MEDS: amLODIPine Besylate 5 MG TABLET PO (09:08)
--- NOTE | 2024-10-09 10:20 | PM.PROC ---
Brief Operative Note Date of procedure: 10/09/24 Pre-op diagnosis: asites, abdominal pain Post-op diagnosis: same Procedure: Limited US demonstrates trace perihepatic ascites not amenable to percutaneous sampling.
--- NOTE | 2024-10-09 11:05 | PC.NURSE ---
IR reported not enough fluid to do procedure.
--- NOTE | 2024-10-09 11:54 | PM.GICN ---
History of Present Illness Data of Consult Service Date: 10/09/24 Requesting physician: Faustino Madsen Primary Care Provider: Leta Dick MD HPI Reason for consult: decomp cirrhosis with portal vein thrombosis This is a 63-year-old gentleman with past medical history of chronic HCV (s/p SVR) that has led to cirrhosis complicated by portal hypertension, history of large varices status post EVBL 08/2024, who presented to the hospital for abdominal pain, generalized feeling of malaise and fevers. History was obtained with from the patient with the help of a branch operations specialist. Reports 2 days of not feeling well, with fatigue, chills, and fevers. The day before admission, he also developed umbilical pain and tenderness, has previously been told about a hernia. Does not report any nausea, vomiting, loss of appetite, diarrhea with or without blood. Has good appetite, and is actually requesting to eat. On arrival to the hospital, he was noted to be febrile 101.4 with normal blood pressures and heart rate. Labs were significant for pancytopenia more or less at previous baseline elevated lactate at 2.6 which then normalized with fluid resuscitation. Kidney function at baseline. Flu RSV panel negative. CT abdomen pelvis with contrast showed progression of partial portal vein thrombosis with extension to distal splenic vein. Gastroenterology has been consulted for further evaluation. Patient has had known partial thrombosis of portal vein since at least 05/2024, but due to partial thrombus, presence of large varices with high-risk stigmata, and severe thrombocytopenia, we elected to not anticoagulate this. Plan was to refer him to IR after his most recent endoscopy, however patient did not show for office visits 09/17/24 or 10/01/24. Review of Systems Review of Systems: Yes all other systems are reviewed and are negative [facility] Past Medical History Medical History Esophageal varices Pancytopenia Iron deficiency anemia Cirrhosis Hepatitis C HBP (high blood pressure) Family History Family History Maternal Grandmother Breast CA Uterus cancer Mother Primary lung cancer of unknown cell type Surgical History Surgical History H/O left inguinal hernia repair H/O eye surgery History of esophagogastroduodenoscopy (EGD) H/O colonoscopy Social History Social History Household Members: None Household Members Other:: custodial Housing: Other Housing Other:: custodial Are you a primary rn progressive care unit to a significant other at home: No Do you presently have visiting nurse or other home services: No Patient Tobacco Use Status: Current everyday Tobacco user Tobacco use type: Cigarette Cigarette Packs Per Day: 1 Second Hand Smoke Exposure: No Advance Directives Date on File: 04/02/24 service: No Current occupational status: retired Meds Allergies Allergy/AdvReac Type Severity Reaction Status Date / Time aspirin AdvReac Severe stomach Verified 10/08/24 19:51 bleeding NSAIDS (Non-Steroidal AdvReac Severe liver Verified 10/08/24 19:51 Anti-Inflamma concerns Active Medications: Current Medications Acetaminophen (Acetaminophen 325 Mg Tablet) 650 mg PO Q6H PRN PRN Reason: Pain, Mild 1-3,fever,headache Amlodipine Besylate (Amlodipine Besylate 5 Mg Tablet) 5 mg PO DAILY [facility]; Protocol Last Admin: 10/09/24 09:08 Dose: 5 mg Calcium Carbonate (Calcium Carbonate 750 Mg Tab.Chew) 750 mg PO Q4H PRN PRN Reason: Heartburn Carvedilol (Carvedilol 3.125 Mg Tablet) 3.125 mg PO BID [facility]; Protocol Last Admin: 10/09/24 09:08 Dose: 3.125 mg Ceftriaxone Sodium (Ceftriaxone Sodium 1 Gm Vial) 1 gm IVPUSH Q24H [facility] Magnesium Hydroxide (Milk Of Magnesia 30 Ml Oral.Susp) 30 ml PO DAILY PRN PRN Reason: Constipation Melatonin (Melatonin 3 Mg Tablet) 6 mg PO BEDTIME PRN PRN Reason: Insomnia Sodium Chloride (0.9 % Sodium Chloride Flush 3 Ml Syringe) 3 ml IVFLUSH QSHIFT [facility] Last Admin: 10/09/24 09:07 Dose: 3 ml Home Medications ?Medication ?Instructions ?Recorded ?Confirmed ?Last Taken ?Type No Known Home Meds 10/09/24 10/09/24 Unknown History Physical Exam Vital Signs: Vital Signs: Last Vital Signs Temp 98.1 F 10/09/24 07:38 Pulse 70 10/09/24 09:40 Resp 19 10/09/24 09:40 BP 137/64 01/30/25 09:40 Pulse Ox 97 10/09/24 09:40 O2 Del Method Room Air 10/09/24 09:40 BMI result Body Mass Index 30.8 No apparent distress artificial L eye Nonicteric Abdomen soft, tender in LLQ and periumbilical area, nondistended Alert and oriented x3, no asterixis Results Labs 10/09/24 04:55 10/09/24 04:55 Labs: Short CBC 10/08/24 10/09/24 Range/Units 20:02 04:55 WBC 2.9 L 2.2 L (4.8-10.8) X10*3/uL Hgb 11.6 L 10.4 L (14.0-18.0) g/dl Hct 35.8 L 32.9 L (42.0-52.0) % Plt Count 23 L 21 L (160-400) X10*3/uL BMP 10/08/24 10/09/24 20:02 04:55 Sodium 138 139 Potassium 4.5 4.2 Chloride 110 H 109 H Carbon Dioxide 25 25 BUN 10 10 Creatinine 0.74 0.79 Calcium 8.9 8.6 Liver Function 10/08/24 Range/Units 20:02 Total Bilirubin 0.7 (0.0-1.0) mg/dL AST 40 H (5-37) U/L ALT 28 (0-40) U/L Alkaline Phosphatase 126 H (39-117) U/L Albumin 3.5 (3.5-5.0) g/dL Urine 10/08/24 Range/Units 23:05 Urine Color Yellow Urine Appearance Clear Urine pH 8.5 (5.0-9.0) Ur Specific [place] >= 1.030 H (1.005-1.025) Urine Protein Negative (Neg-Trace) mg/dL Urine Glucose (UA) Negative (Negative) mg/dL Assessment and Plan (1) Cirrhosis of liver with ascites: Status: Acute (2) Sepsis: Status: Acute (3) Abdominal pain: Qualifiers: Abdominal location: right upper quadrant Qualified Code(s): R10.11 - Right upper quadrant pain Status: Acute (4) Portal vein thrombosis: Status: Acute (5) Splenic vein thrombosis: Status: Acute Plan HCV related cirrhosis c/b portal vein and splenic vein thrombosis with worsening portal HTN and varices. As outlined above, patient not candidate for anticoagulation due to severe thrombocytopenia and large varices with the high-risk stigmata noted on EGD 4 weeks ago. Plan: -please keep him NPO -will discuss with IR regarding feasibility of thrombectomy with tips -please check CBC, INR and CMP to calculate updated meld score -follow-up blood culture results. Thank you for allowing me to participate in his care. Will update, once have discussed management of progression of splanchnic vein thrombosis with IR. UPDATE: Gram stain + for GPC. Speciation pending. Procedures Date of Service Date of Service: 10/09/24
[2024-10-09] MEDS: vancomycin/NS 2,000 MG/500 ML PLAST..BAG 250 MG IV (15:36)
--- NOTE | 2024-10-09 16:14 | PHA.PROG ---
Admission Date/Time: October 08, 2024 22:57 Indication: Bacteremia Weight in k.5 kg Adjusted body weight in Kg: [place] body weight in Kg: Obesity Dosing Indication % IBW: BMI 30.8 Serum Creatinine - Last 168 Hours 10/08/24 10/09/24 20:02 04:55 Creatinine 0.74 0.79 Estimated CrCl and GFR - Last 168 Hours 10/08/24 10/09/24 20:02 04:55 Estim Creat Clear Calc 121.2 113.5 Estimated GFR > 60 > 60 Vancomycin Loading Dose: 2000mg X1 Current Vancomycin Dosing Regimen: 750mg Q8H Vancomycin Monitoring using AUC goal of 400 - 600 range with trough as surrogate marker: 543 Date and Time for next Vancomycin Level to be drawn: 10/10 @1400 Pharmacist Comments on Vancomycin Plan: Patient's renal function appears stable, starting off targeting a higher rough with 750 Q8H (17.7) as BMI is 30.8. To be readjusted tomorrow based on SCr and trough. Vancomycin dosing will take advantage of [employer] as a clinical decision support tool that uses Bayesian modeling to calculate individual patient's pharmacokinetic parameters and forecast the patient's drug concentration time course with the target goal AUC 24 range of 400 - 600 mg/L/hr.
--- NOTE | 2024-10-09 16:16 | MHC.CM.PN ---
CM MET WITH PT WITH A CREDIT UNION MANAGER PT REPORTS HE LIVES ALONE IN THE [facility] AT [place] [id number] HE REPORTS IT IS STABLE AND HE CAN DEFINITELY RETURN HE HAS NO DME AND NO SERVICES CURRENTLY HE STATES HE FEELS HE NEEDS A FUNERAL HOME MAKEUP ARTIST, PER DISCUSSION, A REFERRAL WAS MADE TO [facility] HCP ON FILE AND VERIFIED PCP: PAT PHILLIPS DCP: RETURN TO [address] VIA PRIVATE TRANSPORT
[2024-10-09] MEDS: cefTRIAXone sodium 1 GM VIAL IVPUSH (17:24)
[2024-10-09] MEDS: Morphine Sulfate 4 MG/ML CARTRIDGE 3 MG IVPUSH (17:37)
[2024-10-09] MEDS: vancomycin HCL 750 MG in 0.9 % Sodium Chloride 250 ML 265 MG IV (23:39)
[2024-10-10 04:00] VITALS: BP 103/54; PULSE 63; RESP 18; TEMP 36.7; O2SAT 97
[2024-10-10 07:09] LABS: Creatinine Clr Calc Pharmacy 124.5; Estimated Glomerular Filt Rate > 60
[2024-10-10 07:20] VITALS: BP 144/51; PULSE 72; RESP 16; TEMP 37.1; O2SAT 97
[2024-10-10] MEDS: carvediloL 3.125 MG TABLET PO ×2 (07:56→21:14)
[2024-10-10] MEDS: amLODIPine Besylate 5 MG TABLET PO (07:56)
[2024-10-10] MEDS: vancomycin HCL 750 MG in 0.9 % Sodium Chloride 250 ML 265 MG IV ×3 (07:56→23:42)
[2024-10-10 10:29] LABS: Hematocrit 36.2 % (42.0-52.0); Hemoglobin 11.6 g/dl (14.0-18.0); Mean Corpuscular Hemoglobin 27.6 pg (27.0-33.0); Red Blood Count 4.21 X10*6/uL (4.60-5.80); Red Cell Distribution Width 14.3 % (11.0-16.0); White Blood Count 2.9 X10*3/uL (4.8-10.8)
[2024-10-10 10:30] LABS: Platelet Count 25 X10*3/uL (160-400)
[2024-10-10 10:33] LABS: INTERNATIONAL NORM RATIO 1.2 (0.9-1.1); Prothrombin Time 14.5 SEC (10.9-12.4)
--- NOTE | 2024-10-10 10:46 | MHC.CM.PN ---
Per MD rounds patient not medically cleared for dc. CM will continue to follow.
[2024-10-10 10:52] LABS: Alanine Aminotransferase 22 U/L (0-40); Albumin Level 3.4 g/dL (3.5-5.0); Alkaline Phosphatase 115 U/L (39-117); Aspartate Amino Transferase 31 U/L (5-37); Bilirubin Direct 0.5 mg/dL (0.0-0.5); Bilirubin Total 1.1 mg/dL (0.0-1.0); Blood Urea Nitrogen 12 mg/dL (9-16); Calcium 9.1 mg/dL (8.4-10.2); Creatinine Clr Calc Pharmacy 121.2; Estimated Glomerular Filt Rate > 60; Glucose Random 86 mg/dL (60-115); Total Protein 7.5 g/dL (6.5-8.0)
[2024-10-10 10:58] LABS: Anion Gap 11 (12-20); Carbon Dioxide 25 mmol/L (22-29); Chloride 110 mmol/L (96-108); Potassium 5.4 mmol/L (3.3-5.1); Sodium 141 mmol/L (135-145)
--- NOTE | 2024-10-10 14:18 | P.PNGI_ITS ---
Subjective Subjective Date of Service: 10/10/24 Interval History: Seen at bedside with the help of interpreter deaf Tushar. Reports resolution of periumbilical pain he was having yest. Now hungry and requesting to eat. Case was discussed with IR Dr Ulloa - plan for tips with thrombectomy once bacteremia clears. Anticoagulation considered given high clot burden and high risk of progression. However due to severe thrombocytopenia and large varices on egd last month will hold off for now. Critical Care Time (minutes): 0 Physical Exam 2 Vital Signs: Vital Signs: Last Vital Signs Temp 97.9 F 10/13/24 07:08 Pulse 66 10/13/24 09:33 Resp 18 10/13/24 07:08 BP 123/60 10/13/24 09:33 Pulse Ox 98 10/13/24 07:08 O2 Del Method Room Air 10/13/24 07:08 BMI result Body Mass Index 30.8 NAD Nonicteric abd soft, nontender, nondistended no SAYDA no asterixis Objective Data Labs 10/13/24 09:46 10/13/24 09:46 Labs: Laboratory Results - last 24 hr 10/12/24 10/13/24 10/13/24 14:30 05:43 09:46 WBC 2.6 L RBC 4.15 L Hgb 12.0 L Hct 35.6 L MCV 85.8 MCH 28.9 MCHC 33.7 RDW 14.4 Plt Count 30 L MPV Not Reportable Absolute Nucleated RBC 0.000 Nucleated RBC % (auto) 0.0 Hold Purple Top SEE NOTE PT 13.7 H INR 1.2 H Sodium 138 Potassium 4.7 Chloride 110 H Carbon Dioxide 24 Anion Gap 9 L BUN 13 Creatinine 0.73 0.71 Estim Creat Clear Calc 122.8 126.3 Estimated GFR > 60 > 60 Random Glucose 86 Calcium 8.4 Vancomycin Trough 13.3 Blood Type O Negative Antibody Screen NEGATIVE Microbiology Microbiology Results: Microbiology 10/11/24 05:59 Blood - Venous Blood Culture - Preliminary No growth after 48 hours. 10/11/24 05:59 Blood - Venous Blood Culture - Preliminary No growth after 48 hours. 10/08/24 20:14 Blood - Venous Blood Culture - Final Streptococcus mitis/oralis 10/08/24 20:10 Blood - Venous Blood Culture - Final Streptococcus mitis/oralis Procedures Date of Service Date of Service: 10/13/24 Progress Note: A&P Assessment and plan (1) Esophageal varices: Status: Acute (2) Bacteremia: Status: Acute (3) Splenic vein thrombosis: Status: Acute (4) Portal vein thrombosis: Status: Acute (5) Thrombocytopenia: Status: Acute (6) Cirrhosis: Status: Acute (7) Pancytopenia: Status: Acute Plan Reviewed findings on the CT scan again with the patient with the help of a interpreter deaf. Reviewed that ideally, this is to be intervened on a time sensitive manner, however ongoing GPC bacteremia precludes any vascular intervention at the moment. Once we have a set of blood cultures neg x 48, will update IR. Appreciate Dr Ulloa's input. Anticoagulation considered but deferred, as outlined above. GPC positive, speciation pending. Patient already on vancomycin. Please obtain another blood culture set tomorrow. Can be started on regular diet today, NPO after midnight for Sunday tentatively. This was reviewed with the hospitalist. Late entry for 10/10/24 Time Spent With Patient Time: Total time managing care of this patient today ____ minutes. Quality Stroke Does the patient have a stroke diagnosis?: No VTE Prior VTE?: No VTE Risk Level:: Medical - moderate - high VTE Device Contraindication: N/A - Device Ordered VTE Drug Contraindication: Treatment Not Tolerated
[2024-10-10 15:22] VITALS: BP 147/75; PULSE 62; RESP 18; TEMP 36.7; O2SAT 100
--- NOTE | 2024-10-10 15:44 | HO.PM.IMPN ---
Subjective Subjective Date of Service: 10/10/24 Interval History: Being followed for Gram-positive bacteremia, abdominal pain and fever Abdominal pain and fever resolved, denies chills, no headache, no dizziness, no GI bleed Review of Systems All other system reviewed and are negative Physical Exam Vital Signs: Vital Signs: Last Vital Signs Temp 98.0 F 10/10/24 15:22 Pulse 62 10/10/24 15:22 Resp 18 10/10/24 15:22 BP 147/75 H 10/10/24 15:22 Pulse Ox 100 10/10/24 15:22 O2 Del Method Room Air 10/10/24 15:22 BMI result Body Mass Index 30.8 Const: Other: General: Awake alert x3, no acute distress Neck no JVD Anicteric sclera Resp: CTA bilateral, no accessory muscles used CVS: S1,S2,RRR GI: soft,non tender , non distended, small reducible hernia Neuro: motor grossly intact, alert Skin warm and dry Psych: appropriate affect, appropriate insight Objective Data Active Medications Acetaminophen (Acetaminophen 325 Mg Tablet) 650 mg PO Q6H PRN PRN Reason: Pain, Mild 1-3,fever,headache Amlodipine Besylate (Amlodipine Besylate 5 Mg Tablet) 5 mg PO DAILY [facility]; Protocol Last Admin: 10/10/24 07:56 Dose: 5 mg Documented By: BAILEE Calcium Carbonate (Calcium Carbonate 750 Mg Tab.Chew) 750 mg PO Q4H PRN PRN Reason: Heartburn Carvedilol (Carvedilol 3.125 Mg Tablet) 3.125 mg PO BID [facility]; Protocol Last Admin: 10/10/24 07:56 Dose: 3.125 mg Documented By: BAILEE Ceftriaxone Sodium (Ceftriaxone Sodium 1 Gm Vial) 1 gm IVPUSH Q24H [facility] Last Admin: 10/09/24 17:24 Dose: 1 gm Documented By: BAILEE Vancomycin HCl 750 mg/ Sodium (Chloride) 265 mls @ 265 mls/hr IV Q8H [facility] Last Infusion: 10/10/24 08:58 Dose: Infused Documented By: BAILEE Magnesium Hydroxide (Milk Of Magnesia 30 Ml Oral.Susp) 30 ml PO DAILY PRN PRN Reason: Constipation Melatonin (Melatonin 3 Mg Tablet) 6 mg PO BEDTIME PRN PRN Reason: Insomnia Morphine Sulfate (Morphine Sulfate 4 Mg/Ml Cartridge) 3 mg IVPUSH Q4H PRN; Protocol PRN Reason: Pain, Severe (Pain Scale 7-10) Last Admin: 10/09/24 17:37 Dose: 3 mg Documented By: BAILEE Pharmacy Consult (Consult Rx Vancomycin Dosing) 1 each MISCELLANE DAILY PRN PRN Reason: Consult order Sodium Chloride (0.9 % Sodium Chloride Flush 3 Ml Syringe) 3 ml IVFLUSH QSHIFT [facility] Last Admin: 10/10/24 13:34 Dose: Not Given Documented By: BAILEE Non-Admin Reason: Previously Administered Labs 10/10/24 10:04 10/10/24 10:04 Labs: Laboratory Results - last 24 hr 10/10/24 10/10/24 10/10/24 05:48 10:04 14:03 MCV 86.0 MCH 27.6 MCHC 32.0 RDW 14.3 Plt Count 25 L MPV Not Reportable Absolute Nucleated RBC 0.000 Nucleated RBC % (auto) 0.0 Hold Purple Top SEE NOTE PT 14.5 H INR 1.2 H Anion Gap 11 L Estim Creat Clear Calc 124.5 121.2 Estimated GFR > 60 > 60 Random Glucose 86 Calcium 9.1 Total Bilirubin 1.1 H Direct Bilirubin 0.5 AST 31 ALT 22 Alkaline Phosphatase 115 Total Protein 7.5 Albumin 3.4 L Random Vancomycin 14.0 L Microbiology Microbiology Results: Microbiology 10/08/24 20:14 Blood Culture - Preliminary Blood - Venous Viridans streptococcus group 10/08/24 20:10 Blood Culture - Preliminary Blood - Venous Viridans streptococcus group Assessment and Plan (1) Bacteremia: Status: Acute (2) Splenic vein thrombosis: Status: Acute (3) Portal vein thrombosis: Status: Acute (4) Sepsis: Status: Acute (5) Cirrhosis of liver with ascites: Status: Acute (6) Abdominal pain: Status: Acute (7) Thrombocytopenia: Status: Acute Plan 63M PMH HCV cirrhosis decompensated with varices, portal and splenic vein thrombosis, chronic thrombocytopenia, hypertension, noncompliant with medications presented with abdominal pain Sepsis and abdominal pain No recurrent fever or abdominal pain blood cultures x2 positive for Streptococcus viridans likely due to neutropenia /mucositis on IV vancomycin, and IV ceftriaxone started 10/09 Chest x-ray negative, UA unremarkable, CT abdomen and pelvis showed increased thrombus at the confluence of splenic and main portal veins, resulting is 75% stenosis of distal splenic vein and less than 50% stenosis of main portal vein, new mild ascites, distal esophageal wall thickening, no acute abscess ascites seems too small to be able to sample Will repeat blood cultures x2 at a.m. ID consult HCV with decompensated cirrhosis and progression of portal vein and splenic vein thrombosis with worsening portal hypertension and varices Can not have anticoagulation due to thrombocytopenia and high risk for bleed due to large varices noted on EGD 4 weeks ago cont. Coreg Case discussed with GI she recommend IR tentatively Sunday for thrombectomy with tips, if repeat blood cultures negative Stable CBC, INR 1.2 and normal creatinine and LFTs Mild hyperkalemia potassium 5.4 likely hemolyzed specimen will follow BMP Hypertension On Amlodipine 5 mg and Coreg 3.125 mg b.i.d. Chronic pancytopenia stable H&H, platelet 25,000 , no active bleed. DVT prophylaxis-mechanical due to chronic thrombocytopenia Full Code Given sepsis and high-risk for decompensation due to decompensated cirrhosis requiring expert consultation, patient will require continued inpatient hospitalization . Quality Stroke Does the patient have a stroke diagnosis?: No VTE Prior VTE?: No VTE Risk Level:: Medical - moderate - high VTE Device Contraindication: N/A - Device Ordered VTE Drug Contraindication: Treatment Not Tolerated
--- NOTE | 2024-10-10 16:09 | PC.NURSE ---
Addendum entered by Syed Friend RN 10/10/24 16:45: informed MD pt's IV vanco infiltrated approx 50cc. ?'ed Sub Q med for infiltration. per Md continue to monitor Original Note: pt refusing fall precautions despite education and pt's history of falls.
[2024-10-10] MEDS: cefTRIAXone sodium 1 GM VIAL IVPUSH (17:42)
[2024-10-10 19:31] VITALS: BP 125/56; PULSE 66; RESP 18; TEMP 37.3; O2SAT 97
--- NOTE | 2024-10-10 22:50 | W.PM.IDCN ---
History of Present Illness Data of Consult Service Date: 10/10/24 Requesting physician: Faustino Madsen Primary Care Provider: Leta Dick MD HPI Reason for consult: sepsis,strep viridans He presents with weakness and abdominal discomfort over last week with temperature. He has strep viridans blood x 2 on 10/08. He has cirrhosis with varices. Review of Systems Review of Systems: Yes all other systems are reviewed and are negative PMFSH Past Medical History Medical History Esophageal varices Pancytopenia Iron deficiency anemia Cirrhosis Hepatitis C HBP (high blood pressure) Family History Family History Maternal Grandmother Breast CA Uterus cancer Mother Primary lung cancer of unknown cell type Family history: reviewed and not pertinent Surgical History Surgical History H/O left inguinal hernia repair H/O eye surgery History of esophagogastroduodenoscopy (EGD) H/O colonoscopy Social History Social History Household Members: None Household Members Other:: assisted Housing: Homeless Housing Other:: assisted Are you a primary resident care manager rn to a significant other at home: No Do you presently have visiting nurse or other home services: No Patient Tobacco Use Status: Current everyday Tobacco user Tobacco use type: Cigarette Cigarette Packs Per Day: 1 Cigarettes Per Day: 20.0 Years Smoked: 30 Second Hand Smoke Exposure: No Substance Use Type: Crack/Cocaine and Marijuana Advance Directives Date on File: 04/02/24 service: No Current occupational status: retired Meds Allergies Allergy/AdvReac Type Severity Reaction Status Date / Time aspirin AdvReac Severe stomach Verified 10/08/24 19:51 bleeding NSAIDS (Non-Steroidal AdvReac Severe liver Verified 10/08/24 19:51 Anti-Inflamma concerns Active Medications: Current Medications Acetaminophen (Acetaminophen 325 Mg Tablet) 650 mg PO Q6H PRN PRN Reason: Pain, Mild 1-3,fever,headache Amlodipine Besylate (Amlodipine Besylate 5 Mg Tablet) 5 mg PO DAILY [facility]; Protocol Last Admin: 10/10/24 07:56 Dose: 5 mg Calcium Carbonate (Calcium Carbonate 750 Mg Tab.Chew) 750 mg PO Q4H PRN PRN Reason: Heartburn Carvedilol (Carvedilol 3.125 Mg Tablet) 3.125 mg PO BID [facility]; Protocol Last Admin: 10/10/24 21:14 Dose: 3.125 mg Ceftriaxone Sodium (Ceftriaxone Sodium 1 Gm Vial) 1 gm IVPUSH Q24H [facility] Last Admin: 10/10/24 17:42 Dose: 1 gm Vancomycin HCl 750 mg/ Sodium (Chloride) 265 mls @ 265 mls/hr IV Q8H [facility] Last Infusion: 10/10/24 17:28 Dose: Infused Magnesium Hydroxide (Milk Of Magnesia 30 Ml Oral.Susp) 30 ml PO DAILY PRN PRN Reason: Constipation Melatonin (Melatonin 3 Mg Tablet) 6 mg PO BEDTIME PRN PRN Reason: Insomnia Morphine Sulfate (Morphine Sulfate 4 Mg/Ml Cartridge) 3 mg IVPUSH Q4H [facility]; Protocol PRN Reason: Pain, Severe (Pain Scale 7-10) Last Admin: 10/09/24 17:37 Dose: 3 mg Pharmacy Consult (Consult Rx Vancomycin Dosing) 1 each MISCELLANE DAILY PRN PRN Reason: Consult order Sodium Chloride (0.9 % Sodium Chloride Flush 3 Ml Syringe) 3 ml IVFLUSH QSHIFT [facility] Last Admin: 10/10/24 13:34 Dose: Not Given Home Medications ?Medication ?Instructions ?Recorded ?Confirmed ?Last Taken ?Type No Known Home Meds 10/09/24 10/09/24 Unknown History Physical Exam Vital Signs: Vital Signs: Last Vital Signs Temp 99.2 F 10/10/24 19:31 Pulse 66 10/10/24 19:31 Resp 18 10/10/24 19:31 BP 125/56 L 10/10/24 19:31 Pulse Ox 97 10/10/24 19:31 O2 Del Method Room Air 10/10/24 19:31 BMI result Body Mass Index 30.8 Const: General: cooperative HEENT: Head: Yes normal to inspection Face and sinus: Yes normal facial exam Mouth: Normal oral and palatal mucosa present Teeth and gingiva: dentition normal Eyes: General: appearance normal, both eyes and all related structures Pupils: Equal, round and reactive pupils present Resp: Effort & Inspection: normal respiratory effort Cardio: Rate: regular rate Rhythm: regular rhythm GI: Other: some abdominal distention Palpation (GI): Soft to palpation and nontender : General: Yes no CVA tenderness Back/Spine/Pelvis: Back: no CVA tenderness Skin: Other: sallow General skin exam: no rashes or lesions noted Neuro: General: moves all extremities Cranial nerves: Yes Equal, round and reactive pupils present Extrem: General: Yes normal to inspection Psych: Appearance: grossly normal Results Labs 10/10/24 10:04 10/10/24 10:04 Labs: Short CBC 10/10/24 Range/Units 10:04 WBC 2.9 L (4.8-10.8) X10*3/uL Hgb 11.6 L (14.0-18.0) g/dl Hct 36.2 L (42.0-52.0) % Plt Count 25 L (160-400) X10*3/uL BMP 10/10/24 10/10/24 05:48 10:04 Sodium 141 Potassium 5.4 H D Chloride 110 H Carbon Dioxide 25 BUN 12 Creatinine 0.72 0.74 Calcium 9.1 Liver Function 10/10/24 Range/Units 10:04 Total Bilirubin 1.1 H (0.0-1.0) mg/dL Direct Bilirubin 0.5 (0.0-0.5) mg/dL AST 31 (5-37) U/L ALT 22 (0-40) U/L Alkaline Phosphatase 115 (39-117) U/L Albumin 3.4 L (3.5-5.0) g/dL Microbiology Microbiology Results: Microbiology 10/08/24 20:14 Blood - Venous Blood Culture - Preliminary Viridans streptococcus group 10/08/24 20:10 Blood - Venous Blood Culture - Preliminary Viridans streptococcus group Assessment and Plan (1) Bacteremia: Status: Acute Plan He has strep viridans,agree likely from mouth/mucositis. Possible endocarditits.SBP Would continue Ceftriaxone 2g daily. May stop Vancomycin. Check TTE. If net TTE may switch to po Cephalosporin for total 10 d
[2024-10-11] MEDS: 0.9 % Sodium Chloride Flush 3 ML SYRINGE IVFLUSH ×4 (00:47→23:24)
[2024-10-11 04:00] VITALS: BP 104/49; PULSE 64; RESP 18; TEMP 37.5; O2SAT 96
[2024-10-11 06:20] LABS: Hematocrit 32.4 % (42.0-52.0); Hemoglobin 10.5 g/dl (14.0-18.0); Mean Corpuscular HGB Conc 32.4 g/dl (31.0-36.0); Mean Corpuscular Hemoglobin 27.6 pg (27.0-33.0); Mean Corpuscular Volume 85.3 fL (80.0-98.0)
[2024-10-11 06:21] LABS: Platelet Count 24 X10*3/uL (160-400)
[2024-10-11 06:30] LABS: Anion Gap 11 (12-20); Blood Urea Nitrogen 13 mg/dL (9-16); Calcium 8.5 mg/dL (8.4-10.2); Carbon Dioxide 25 mmol/L (22-29); Chloride 110 mmol/L (96-108); Creatinine Clr Calc Pharmacy 122.8; Estimated Glomerular Filt Rate > 60; Glucose Random 106 mg/dL (60-115); Potassium 4.7 mmol/L (3.3-5.1); Sodium 141 mmol/L (135-145)
[2024-10-11 07:46] VITALS: BP 126/85; PULSE 68; RESP 16; TEMP 37.5; O2SAT 96
[2024-10-11] MEDS: amLODIPine Besylate 5 MG TABLET PO (08:07)
[2024-10-11] MEDS: vancomycin HCL 750 MG in 0.9 % Sodium Chloride 250 ML 265 MG IV ×3 (08:07→23:19)
[2024-10-11] MEDS: carvediloL 3.125 MG TABLET PO ×2 (08:07→20:48)
--- NOTE | 2024-10-11 09:31 | HO.PM.IMPN ---
Subjective Subjective Date of Service: 10/11/24 Interval History: Being followed for Gram-positive bacteremia, abdominal pain and fever Abdominal pain and fever resolved, denies chills, no headache, no dizziness, no GI bleed Review of Systems All other system reviewed and are negative Physical Exam Vital Signs: Vital Signs: Last Vital Signs Temp 99.5 F 10/11/24 07:46 Pulse 68 10/11/24 07:46 Resp 16 10/11/24 07:46 BP 126/85 10/11/24 07:46 Pulse Ox 96 10/11/24 07:46 O2 Del Method Room Air 10/11/24 07:46 BMI result Body Mass Index 30.8 Appearing in no acute distress lung sounds are clear to auscultation heart regular rate rhythm, clear S1, S2 positive bowel sounds, abdomen is soft, nontender neuro patient is alert x3, no focal deficits Objective Data Active Medications Acetaminophen (Acetaminophen 325 Mg Tablet) 650 mg PO Q6H PRN PRN Reason: Pain, Mild 1-3,fever,headache Amlodipine Besylate (Amlodipine Besylate 5 Mg Tablet) 5 mg PO DAILY [facility]; Protocol Last Admin: 10/11/24 08:07 Dose: 5 mg Documented By: SANTIAGO Calcium Carbonate (Calcium Carbonate 750 Mg Tab.Chew) 750 mg PO Q4H PRN PRN Reason: Heartburn Carvedilol (Carvedilol 3.125 Mg Tablet) 3.125 mg PO BID [facility]; Protocol Last Admin: 10/11/24 08:07 Dose: 3.125 mg Documented By: SANTIAGO Ceftriaxone Sodium (Ceftriaxone Sodium 1 Gm Vial) 1 gm IVPUSH Q24H [facility] Last Admin: 10/10/24 17:42 Dose: 1 gm Documented By: BAILEE Vancomycin HCl 750 mg/ Sodium (Chloride) 265 mls @ 265 mls/hr IV Q8H [facility] Last Admin: 10/11/24 08:07 Dose: 265 mls/hr Documented By: SANTIAGO Magnesium Hydroxide (Milk Of Magnesia 30 Ml Oral.Susp) 30 ml PO DAILY PRN PRN Reason: Constipation Melatonin (Melatonin 3 Mg Tablet) 6 mg PO BEDTIME PRN PRN Reason: Insomnia Morphine Sulfate (Morphine Sulfate 4 Mg/Ml Cartridge) 3 mg IVPUSH Q4H PRN; Protocol PRN Reason: Pain, Severe (Pain Scale 7-10) Last Admin: 10/09/24 17:37 Dose: 3 mg Documented By: BAILEE Pharmacy Consult (Consult Rx Vancomycin Dosing) 1 each MISCELLANE DAILY PRN PRN Reason: Consult order Sodium Chloride (0.9 % Sodium Chloride Flush 3 Ml Syringe) [facility] Last Admin: 10/11/24 08:07 Dose: 3 ml Documented By: SANTIAGO Labs 10/11/24 05:59 10/11/24 05:59 Labs: Laboratory Results - last 24 hr 10/10/24 10/10/24 10/11/24 10:04 14:03 05:59 MCV 86.0 85.3 MCH 27.6 27.6 MCHC 32.0 32.4 RDW 14.3 14.0 Plt Count 25 L 24 L MPV Not Reportable TNP Absolute Nucleated RBC 0.000 0.000 Nucleated RBC % (auto) 0.0 0.0 PT 14.5 H INR 1.2 H Anion Gap 11 L 11 L Estim Creat Clear Calc 121.2 122.8 Estimated GFR > 60 > 60 Random Glucose 86 106 Calcium 9.1 8.5 D Total Bilirubin 1.1 H Direct Bilirubin 0.5 AST 31 ALT 22 Alkaline Phosphatase 115 Total Protein 7.5 Albumin 3.4 L Random Vancomycin 14.0 L Microbiology Microbiology Results: Microbiology 10/08/24 20:14 Blood Culture - Final Blood - Venous Streptococcus mitis/oralis 10/08/24 20:10 Blood Culture - Final Blood - Venous Streptococcus mitis/oralis Assessment and Plan (1) Bacteremia: Status: Acute (2) Splenic vein thrombosis: Status: Acute (3) Portal vein thrombosis: Status: Acute (4) Sepsis: Status: Acute (5) Cirrhosis of liver with ascites: Status: Acute (6) Abdominal pain: Status: Acute (7) Thrombocytopenia: Status: Acute Plan 63M PMH HCV cirrhosis decompensated with varices, portal and splenic vein thrombosis, chronic thrombocytopenia, hypertension, noncompliant with medications presented with abdominal pain Sepsis and abdominal pain No recurrent fever or abdominal pain blood cultures x2 positive for Streptococcus viridans likely due to neutropenia /mucositis on IV vancomycin, and IV ceftriaxone started 10/09 Chest x-ray negative, UA unremarkable, CT abdomen and pelvis showed increased thrombus at the confluence of splenic and main portal veins, resulting is 75% stenosis of distal splenic vein and less than 50% stenosis of main portal vein, new mild ascites, distal esophageal wall thickening, no acute abscess ascites seems too small to be able to sample Will repeat blood cultures x2 at a.m. ID consult> check TTE, continue Rocephin HCV with decompensated cirrhosis and progression of portal vein and splenic vein thrombosis with worsening portal hypertension and varices Can not have anticoagulation due to thrombocytopenia and high risk for bleed due to large varices noted on EGD 4 weeks ago cont. Coreg Case discussed with GI she recommend IR tentatively Sunday for thrombectomy with tips, if repeat blood cultures negative Stable CBC, INR 1.2 and normal creatinine and LFTs Mild hyperkalemia. Resolved likely hemolyzed specimen will follow BMP Hypertension On Amlodipine 5 mg and Coreg 3.125 mg b.i.d. Chronic pancytopenia stable H&H, platelet 25,000 , no active bleed. DVT prophylaxis-mechanical due to chronic thrombocytopenia Full Code Given sepsis and high-risk for decompensation due to decompensated cirrhosis requiring expert consultation, patient will require continued inpatient hospitalization . Quality Stroke Does the patient have a stroke diagnosis?: No VTE Prior VTE?: No VTE Risk Level:: Medical - moderate - high VTE Device Contraindication: N/A - Device Ordered VTE Drug Contraindication: Treatment Not Tolerated
--- NOTE | 2024-10-11 14:20 | HE.PHANOTE ---
Re: Toio Good renal function. Trough returned at 15.0, pt is therapeutic. Continue current dose of 750mg q8h with predicted AUC 463, predicted trough 14.9. Next trough 2/2 @ 1400.
[2024-10-11 15:22] VITALS: BP 124/60; PULSE 63; RESP 16; TEMP 36.5; O2SAT 99
[2024-10-11] MEDS: cefTRIAXone sodium 1 GM VIAL IVPUSH (17:28)
[2024-10-11 19:23] VITALS: BP 131/60; PULSE 64; RESP 18; TEMP 37.3; O2SAT 100
[2024-10-12 03:53] VITALS: BP 134/60; PULSE 66; RESP 18; TEMP 36.4; O2SAT 99
[2024-10-12 07:44] VITALS: BP 116/58; PULSE 66; RESP 18; TEMP 36.8; O2SAT 98
[2024-10-12 07:55] LABS: Estimated Glomerular Filt Rate > 60
[2024-10-12] MEDS: vancomycin HCL 750 MG in 0.9 % Sodium Chloride 250 ML 265 MG IV (08:46)
[2024-10-12] MEDS: carvediloL 3.125 MG TABLET PO ×2 (08:47→21:45)
[2024-10-12] MEDS: amLODIPine Besylate 5 MG TABLET PO (08:47)
[2024-10-12] MEDS: 0.9 % Sodium Chloride Flush 3 ML SYRINGE IVFLUSH ×3 (08:51→21:45)
--- NOTE | 2024-10-12 09:20 | HO.PM.IMPN ---
Subjective Subjective Date of Service: 10/12/24 Interval History: Being followed for Gram-positive bacteremia, abdominal pain and fever Abdominal pain and fever resolved, denies chills, no headache, no dizziness, no GI bleed Review of Systems All other system reviewed and are negative Physical Exam Vital Signs: Vital Signs: Last Vital Signs Temp 98.2 F 10/12/24 07:44 Pulse 66 10/12/24 07:44 Resp 18 10/12/24 07:44 BP 116/58 L 10/12/24 07:44 Pulse Ox 98 10/12/24 07:44 O2 Del Method Room Air 10/12/24 07:44 BMI result Body Mass Index 30.8 Appearing in no acute distress lung sounds are clear to auscultation heart regular rate rhythm, clear S1, S2 positive bowel sounds, abdomen is soft, nontender neuro patient is alert x3, no focal deficits Objective Data Active Medications Acetaminophen (Acetaminophen 325 Mg Tablet) 650 mg PO Q6H PRN PRN Reason: Pain, Mild 1-3,fever,headache Amlodipine Besylate (Amlodipine Besylate 5 Mg Tablet) 5 mg PO DAILY [facility]; Protocol Last Admin: 10/12/24 08:47 Dose: 5 mg Documented By: SANTIAGO Calcium Carbonate (Calcium Carbonate 750 Mg Tab.Chew) 750 mg PO Q4H PRN PRN Reason: Heartburn Carvedilol (Carvedilol 3.125 Mg Tablet) 3.125 mg PO BID [facility]; Protocol Last Admin: 10/12/24 08:47 Dose: 3.125 mg Documented By: SANTIAGO Ceftriaxone Sodium (Ceftriaxone Sodium 1 Gm Vial) 1 gm IVPUSH Q24H [facility] Last Admin: 10/11/24 17:28 Dose: 1 gm Documented By: SANTIAGO Vancomycin HCl 750 mg/ Sodium (Chloride) 265 mls @ 265 mls/hr IV Q8H [facility] Last Admin: 10/12/24 08:46 Dose: 265 mls/hr Documented By: SANTIAGO Magnesium Hydroxide (Milk Of Magnesia 30 Ml Oral.Susp) 30 ml PO DAILY PRN PRN Reason: Constipation Melatonin (Melatonin 3 Mg Tablet) 6 mg PO BEDTIME PRN PRN Reason: Insomnia Morphine Sulfate (Morphine Sulfate 4 Mg/Ml Cartridge) 3 mg IVPUSH Q4H PRN; Protocol PRN Reason: Pain, Severe (Pain Scale 7-10) Last Admin: 10/09/24 17:37 Dose: 3 mg Documented By: BAILEE Pharmacy Consult (Consult Rx Vancomycin Dosing) 1 each MISCELLANE DAILY PRN PRN Reason: Consult order Sodium Chloride (0.9 % Sodium Chloride Flush 3 Ml Syringe) [facility] Last Admin: 10/12/24 08:51 Dose: 3 ml Documented By: SANTIAGO Labs 10/11/24 05:59 10/12/24 07:17 Labs: Laboratory Results - last 24 hr 10/11/24 10/12/24 13:53 07:17 Estim Creat Clear Calc 118.0 Estimated GFR > 60 Random Vancomycin 15.0 Microbiology Microbiology Results: Microbiology 10/11/24 05:59 Blood Culture - Preliminary Blood - Venous No growth after 24 hours. 10/11/24 05:59 Blood Culture - Preliminary Blood - Venous No growth after 24 hours. 10/08/24 20:14 Blood Culture - Final Blood - Venous Streptococcus mitis/oralis 10/08/24 20:10 Blood Culture - Final Blood - Venous Streptococcus mitis/oralis Assessment and Plan (1) Bacteremia: Status: Acute (2) Splenic vein thrombosis: Status: Acute (3) Portal vein thrombosis: Status: Acute (4) Sepsis: Status: Acute (5) Cirrhosis of liver with ascites: Status: Acute (6) Abdominal pain: Status: Acute (7) Thrombocytopenia: Status: Acute Plan 63M PMH HCV cirrhosis decompensated with varices, portal and splenic vein thrombosis, chronic thrombocytopenia, hypertension, noncompliant with medications presented with abdominal pain Sepsis and abdominal pain No recurrent fever or abdominal pain blood cultures x2 positive for Streptococcus viridans likely due to neutropenia /mucositis on IV vancomycin, and IV ceftriaxone started 10/09 Chest x-ray negative, UA unremarkable, CT abdomen and pelvis showed increased thrombus at the confluence of splenic and main portal veins, resulting is 75% stenosis of distal splenic vein and less than 50% stenosis of main portal vein, new mild ascites, distal esophageal wall thickening, no acute abscess Surveillance blood cultures negative ID consult> check TTE, continue Rocephin HCV with decompensated cirrhosis and progression of portal vein and splenic vein thrombosis with worsening portal hypertension and varices Can not have anticoagulation due to thrombocytopenia and high risk for bleed due to large varices noted on EGD 4 weeks ago cont. Coreg Case discussed with GI she recommend IR tentatively Sunday for thrombectomy with tips, if repeat blood cultures negative Stable CBC, INR 1.2 and normal creatinine and LFTs Mild hyperkalemia. Resolved likely hemolyzed specimen will follow BMP Hypertension On Amlodipine 5 mg and Coreg 3.125 mg b.i.d. Chronic pancytopenia stable H&H, platelet 25,000 , no active bleed. DVT prophylaxis-mechanical due to chronic thrombocytopenia attending Dr. Cuellar Full Code Given sepsis and high-risk for decompensation due to decompensated cirrhosis requiring expert consultation, patient will require continued inpatient hospitalization . Quality Stroke Does the patient have a stroke diagnosis?: No VTE Prior VTE?: No VTE Risk Level:: Medical - moderate - high VTE Device Contraindication: N/A - Device Ordered VTE Drug Contraindication: Treatment Not Tolerated
[2024-10-12 14:58] LABS: Vancomycin Trough 13.3 mcg/mL (10.0-20.0)
--- NOTE | 2024-10-12 15:25 | HE.PHANOTE ---
RE: vanco Trough on 10/12 came back at 13.3; changed dose to 1500mg Q12H with predicted trough of 15.4mg/L, AUC of 578 mg/L. Next level to be drawn 10/14 @0700
[2024-10-12 16:00] VITALS: BP 138/63; PULSE 62; RESP 20; TEMP 36.3; O2SAT 100
[2024-10-12] MEDS: cefTRIAXone sodium 1 GM VIAL IVPUSH (17:49)
[2024-10-12 19:43] VITALS: BP 135/65; PULSE 66; RESP 20; TEMP 36.2; O2SAT 99
[2024-10-12] MEDS: vancomycin HCL 1,500 MG in 0.9 % Sodium Chloride 500 ML 333.33 MG IV (21:45)
[2024-10-13 04:00] VITALS: BP 111/53; PULSE 69; RESP 16; TEMP 36.6; O2SAT 100
[2024-10-13 06:30] LABS: Creatinine Clr Calc Pharmacy 122.8; Estimated Glomerular Filt Rate > 60
--- NOTE | 2024-10-13 07:00 | CA_ITS ---
Transthoracic Echocardiogram Patient (Last, First, Middle): Adelso Beebe, Gender: Male Date of : 1960 Age: 63 Procedure Date: 10/13/2024 Procedure Type: Transthoracic Echocardiogram Location: S3E Height: 177.8 cm Weight: 97.07 kg BSA: 2.15 m2 Heart Rate: bpm BP: 123 / 60 mmHg Oss Architect: VH Referring MD: Deanna Puente NP Symptoms: ? endocarditis Study Quality: Adequate ECG Rhythm: Sinus Conclusions: - Normal left ventricular size and systolic function. There is mildly increased left ventricular wall thickness. The visually estimated ejection fraction is between 60-65%. - E/E prime ratio is between 8 and 15 consistent with indeterminate filling pressures. - Normal right ventricular cavity size and systolic function. - The left atrium is moderately dilated. - Normal aortic valve structure and function. - Normal mitral valve structure and function. - Normal tricuspid valve structure. Findings Left Ventricle Normal left ventricular size and systolic function. There is mildly increased left ventricular wall thickness. The visually estimated ejection fraction is between 60-65%. Abnormal diastolic function is noted. Spectral Doppler is indicative of a pseudonormal filling pattern. E/E prime ratio is between 8 and 15 consistent with indeterminate filling pressures. Right Ventricle Normal right ventricular cavity size and systolic function. Atria The left atrium is moderately dilated. The right atrium is likely dilated. Aortic Valve Normal aortic valve structure and function. There is no aortic valve stenosis. There is no aortic valve regurgitation. Mitral Valve Normal mitral valve structure and function. There is trace mitral valve regurgitation. There is no mitral valve stenosis. Pulmonic Valve Normal pulmonic valve structure and function. There is no pulmonic valve regurgitation. Tricuspid Valve Normal tricuspid valve structure. There is trace tricuspid valve regurgitation. Normal right atrial pressure. There is no evidence of pulmonary hypertension. Great Vessels All visible segments of the aorta are normal in size. The visualized portions of the pulmonary artery and branches are normal. Venous The inferior vena cava is normal in size and collapses greater than 50% with inspiration. Pericardium/Pleural There is no evidence of pericardial effusion. Prior Study Comparison No prior study available for comparison. Measurements 2D Linear Measurements IVSd: 1.15 0.6-0.9/0.6-1.0 cm LVIDd: 4.95 3.9-5.3/4.2-5.9 cm LVIDd Index: 2.30 2.4-3.2/2.2-3.1 cm/m2 LVIDs: 3.02 2.0-3.6 cm LVPWd: 1.14 0.7-1.1 cm Ao Root: 2.90 2.1-3.5 cm LA Diam: 5.70 2.7-3.8/3.0-4.0 cm LAIDs Index: 2.65 1.5-2.3 cm/m2 LV Mass: 268.54 67-162/88-224 g LV Mass Index: 124.90 43-95/49-115 g/m2 LVOT Diam: 2.10 3.0+(-)1.3 cm Mitral Valve MV Pk E: 1.04 MV PK A: 0.83 MV Decel Time: 183.00 E/A: 1.30 E'Lateral: 12.10 E'Medial: 6.42 E/E' Med: 16.20 E/E' Lat: 8.60 PHT: 54.00 MVA PHT: 4.07 Decel Lyman: 5.69 Aortic Valve AoV Pk Salomon: 1.56 AoV Mn Salomon: 1.08 AoV VTI: 0.40 AoV Pk Grad: 10.00 Aov Mn Grad: 5.00 NIKKI Cont.VTI: 2.42 LVOT LVOT Pk Salomon: 1.07 LVOT Mn Salomon: 0.73 LVOT VTI: 0.28 LVOT Pk Grad: 5.00 LVOT Mn Grad: 2.00 LVOT Diam: 2.10 LVOT Area: 3.46 Diastolic Function MV Pk E: 1.04 MV Pk A: 0.83 E/A: 1.30 E'Medial: 6.42 E/E' Med: 16.20 E' Laterial: 12.10 E/E' Lat: 8.60 Right Ventricle TAPSE (mm): 28.00 TVS' Salomon: 15.00 Tricuspid Valve TR Pk Salomon: 2.46 TR Pk Grad: 24.00 RA Press: 3.00 RVSP: 27.00 Great Vessels Aorta Ao Root-2D: 2.90 2.0-3.7 cm Ao Asc: 2.80 2.1-3.4 cm Pulmonary Valve PV Pk Salomon: 1.16 Peak PV Grad: 5.00 Updated in Other Vendor System with Status of Final Slick Hoover MD electronically signed on 10/13/2024 3:27:13 PM with status of Final
[2024-10-13 07:08] VITALS: BP 123/60; PULSE 66; RESP 18; TEMP 36.6; O2SAT 98
--- NOTE | 2024-10-13 08:53 | P.PNIM_ITS ---
Subjective Subjective Date of Service: 10/13/24 Interval History: Being followed for Gram-positive bacteremia, abdominal pain and fever Abdominal pain and fever resolved, denies chills, no headache, no dizziness, no GI bleed Review of Systems All other system reviewed and are negative Physical Exam 2 Vital Signs: Vital Signs: Last Vital Signs Temp 97.9 F 10/13/24 07:08 Pulse 66 10/13/24 07:08 Resp 18 10/13/24 07:08 BP 123/60 10/13/24 07:08 Pulse Ox 98 10/13/24 07:08 O2 Del Method Room Air 10/13/24 07:08 BMI result Body Mass Index 30.8 Objective Data Active Medications Acetaminophen (Acetaminophen 325 Mg Tablet) 650 mg PO Q6H PRN PRN Reason: Pain, Mild 1-3,fever,headache Amlodipine Besylate (Amlodipine Besylate 5 Mg Tablet) 5 mg PO DAILY [facility]; Protocol Last Admin: 10/12/24 08:47 Dose: 5 mg Documented By: SANTIAGO Calcium Carbonate (Calcium Carbonate 750 Mg Tab.Chew) 750 mg PO Q4H PRN PRN Reason: Heartburn Carvedilol (Carvedilol 3.125 Mg Tablet) 3.125 mg PO BID [facility]; Protocol Last Admin: 10/12/24 21:45 Dose: 3.125 mg Documented By: HENRY Ceftriaxone Sodium (Ceftriaxone Sodium 1 Gm Vial) 1 gm IVPUSH Q24H [facility] Last Admin: 10/12/24 17:49 Dose: 1 gm Documented By: STEPHIE Vancomycin HCl 1,500 mg/ (Sodium Chloride) 500 mls @ 333.333 mls/hr IV Q12H [facility] Last Infusion: 10/12/24 23:23 Dose: Infused Documented By: HENRY Magnesium Hydroxide (Milk Of Magnesia 30 Ml Oral.Susp) 30 ml PO DAILY PRN PRN Reason: Constipation Melatonin (Melatonin 3 Mg Tablet) 6 mg PO BEDTIME PRN PRN Reason: Insomnia Morphine Sulfate (Morphine Sulfate 4 Mg/Ml Cartridge) 3 mg IVPUSH Q4H PRN; Protocol PRN Reason: Pain, Severe (Pain Scale 7-10) Last Admin: 10/09/24 17:37 Dose: 3 mg Documented By: BAILEE Pharmacy Consult (Consult Rx Vancomycin Dosing) 1 each MISCELLANE DAILY PRN PRN Reason: Consult order Sodium Chloride (0.9 % Sodium Chloride Flush 3 Ml Syringe) 3 ml IVFLUSH QSHIFT [facility] Last Admin: 10/12/24 21:45 Dose: 3 ml Documented By: HENRY Labs 10/13/24 09:46 10/13/24 09:46 Labs: Laboratory Results - last 24 hr 10/12/24 10/13/24 14:30 05:43 Hold Purple Top SEE NOTE Estim Creat Clear Calc 122.8 Estimated GFR > 60 Vancomycin Trough 13.3 Microbiology Microbiology Results: Microbiology 10/11/24 05:59 Blood Culture - Preliminary Blood - Venous No growth after 48 hours. 10/11/24 05:59 Blood Culture - Preliminary Blood - Venous No growth after 48 hours. Assessment and Plan (1) Bacteremia: Status: Acute (2) Splenic vein thrombosis: Status: Acute (3) Portal vein thrombosis: Status: Acute (4) Sepsis: Status: Acute (5) Cirrhosis of liver with ascites: Status: Acute (6) Abdominal pain: Status: Acute (7) Thrombocytopenia: Status: Acute Plan 63M PMH HCV cirrhosis decompensated with varices, portal and splenic vein thrombosis, chronic thrombocytopenia, hypertension, noncompliant with medications presented with abdominal pain Sepsis and abdominal pain No recurrent fever or abdominal pain blood cultures x2 positive for Streptococcus viridans likely due to neutropenia /mucositis Chest x-ray negative, UA unremarkable, CT abdomen and pelvis showed increased thrombus at the confluence of splenic and main portal veins, resulting is 75% stenosis of distal splenic vein and less than 50% stenosis of main portal vein, new mild ascites, distal esophageal wall thickening, no acute abscess Surveillance blood cultures negative ID consult> check TTE, continue Rocephin HCV with decompensated cirrhosis and progression of portal vein and splenic vein thrombosis with worsening portal hypertension and varices Can not have anticoagulation due to thrombocytopenia and high risk for bleed due to large varices noted on EGD 4 weeks ago cont. Coreg Case discussed with GI> IR procedure for thrombectomy with tips, waiting to hear from IR Stable CBC, INR 1.2 and normal creatinine and LFTs Mild hyperkalemia. Resolved likely hemolyzed specimen will follow BMP Hypertension On Amlodipine 5 mg and Coreg 3.125 mg b.i.d. Chronic pancytopenia stable H&H, platelet 25,000 , no active bleed. DVT prophylaxis-mechanical due to chronic thrombocytopenia attending Dr. Hernandez Full Code Given sepsis and high-risk for decompensation due to decompensated cirrhosis requiring expert consultation, patient will require continued inpatient hospitalization . Quality Stroke Does the patient have a stroke diagnosis?: No VTE Prior VTE?: No VTE Risk Level:: Medical - moderate - high VTE Device Contraindication: N/A - Device Ordered VTE Drug Contraindication: Treatment Not Tolerated
[2024-10-13] MEDS: 0.9 % Sodium Chloride Flush 3 ML SYRINGE IVFLUSH ×3 (09:28→20:19)
[2024-10-13 09:33] VITALS: BP 123/60; PULSE 66
[2024-10-13] MEDS: amLODIPine Besylate 5 MG TABLET PO (09:33)
[2024-10-13] MEDS: carvediloL 3.125 MG TABLET PO ×2 (09:33→20:18)
[2024-10-13] MEDS: vancomycin HCL 1,500 MG in 0.9 % Sodium Chloride 500 ML 333.33 MG IV (09:51)
[2024-10-13 09:59] LABS: Hematocrit 35.6 % (42.0-52.0); Mean Corpuscular HGB Conc 33.7 g/dl (31.0-36.0); Mean Corpuscular Hemoglobin 28.9 pg (27.0-33.0); Mean Corpuscular Volume 85.8 fL (80.0-98.0); Red Blood Count 4.15 X10*6/uL (4.60-5.80); Red Cell Distribution Width 14.4 % (11.0-16.0); White Blood Count 2.6 X10*3/uL (4.8-10.8)
[2024-10-13 10:01] LABS: Platelet Count 30 X10*3/uL (160-400)
[2024-10-13 10:02] LABS: INTERNATIONAL NORM RATIO 1.2 (0.9-1.1); Prothrombin Time 13.7 SEC (10.9-12.4)
[2024-10-13 10:21] LABS: Anion Gap 9 (12-20); Blood Urea Nitrogen 13 mg/dL (9-16); Calcium 8.4 mg/dL (8.4-10.2); Carbon Dioxide 24 mmol/L (22-29); Chloride 110 mmol/L (96-108); Creatinine Clr Calc Pharmacy 126.3; Estimated Glomerular Filt Rate > 60; Glucose Random 86 mg/dL (60-115); Potassium 4.7 mmol/L (3.3-5.1); Sodium 138 mmol/L (135-145)
--- NOTE | 2024-10-13 11:56 | MHC.CM.PN ---
Per MD rounds patient not medically cleared for dc. CM will continue to follow.
--- NOTE | 2024-10-13 14:24 | P.PNGI_ITS ---
Subjective Subjective Date of Service: 10/13/24 Interval History: Seen at bedside. PCT Karol present to help with intepretation. Pt wondering re time of procedure and who will be performing it. Critical Care Time (minutes): 0 Physical Exam 2 Vital Signs: Vital Signs: Last Vital Signs Temp 97.9 F 10/13/24 07:08 Pulse 66 10/13/24 09:33 Resp 18 10/13/24 07:08 BP 123/60 10/13/24 09:33 Pulse Ox 98 10/13/24 07:08 O2 Del Method Room Air 10/13/24 07:08 BMI result Body Mass Index 30.8 NAD Nonicteric abd soft, nontender, nondistended no SAYDA no asterixis Objective Data Labs 10/13/24 09:46 10/13/24 09:46 Labs: Laboratory Results - last 24 hr 10/12/24 10/13/24 10/13/24 14:30 05:43 09:46 WBC 2.6 L RBC 4.15 L Hgb 12.0 L Hct 35.6 L MCV 85.8 MCH 28.9 MCHC 33.7 RDW 14.4 Plt Count 30 L MPV Not Reportable Absolute Nucleated RBC 0.000 Nucleated RBC % (auto) 0.0 Hold Purple Top SEE NOTE PT 13.7 H INR 1.2 H Sodium 138 Potassium 4.7 Chloride 110 H Carbon Dioxide 24 Anion Gap 9 L BUN 13 Creatinine 0.73 0.71 Estim Creat Clear Calc 122.8 126.3 Estimated GFR > 60 > 60 Random Glucose 86 Calcium 8.4 Vancomycin Trough 13.3 Blood Type O Negative Antibody Screen NEGATIVE Microbiology Microbiology Results: Microbiology 10/11/24 05:59 Blood - Venous Blood Culture - Preliminary No growth after 48 hours. 10/11/24 05:59 Blood - Venous Blood Culture - Preliminary No growth after 48 hours. 10/08/24 20:14 Blood - Venous Blood Culture - Final Streptococcus mitis/oralis 10/08/24 20:10 Blood - Venous Blood Culture - Final Streptococcus mitis/oralis Procedures Date of Service Date of Service: 10/13/24 Progress Note: A&P Assessment and plan (1) Esophageal varices: Status: Acute (2) Bacteremia: Status: Acute (3) Splenic vein thrombosis: Status: Acute (4) Portal vein thrombosis: Status: Acute (5) Thrombocytopenia: Status: Acute (6) Cirrhosis: Status: Acute (7) Pancytopenia: Status: Acute Plan BCx drawn 10/11 NGTD. Will review with IR if there is availability for pt to proceed with tips+thrombectomy today vs tmrw. - Pls obtain type and screen, pt will likely need 1u plts before tips procedure - echo - Keep NPO until IR confirms timing Time Spent With Patient Time: Total time managing care of this patient today ____ minutes. Quality Stroke Does the patient have a stroke diagnosis?: No VTE Prior VTE?: No VTE Risk Level:: Medical - moderate - high VTE Device Contraindication: N/A - Device Ordered VTE Drug Contraindication: Treatment Not Tolerated
[2024-10-13 15:22] VITALS: BP 141/63; PULSE 66; RESP 12; TEMP 36.3; O2SAT 100
[2024-10-13] MEDS: cefTRIAXone sodium 1 GM VIAL IVPUSH (17:58)
--- NOTE | 2024-10-13 18:02 | PC.NURSE ---
#22 angio inserted in RFA as requested by primary RN Dalila,patient tolerated it well
[2024-10-13 19:21] VITALS: BP 117/53; PULSE 62; RESP 16; TEMP 36.6; O2SAT 96
[2024-10-14 03:55] VITALS: BP 113/53; PULSE 73; RESP 16; TEMP 36.9; O2SAT 96
[2024-10-14 06:23] LABS: Estimated Glomerular Filt Rate > 60
[2024-10-14 07:14] LABS: Vancomycin Trough 9.7 mcg/mL (10.0-20.0)
[2024-10-14 07:51] VITALS: BP 138/67; PULSE 69; RESP 18; TEMP 36.6; O2SAT 96
--- NOTE | 2024-10-14 08:41 | HO.PM.IMPN ---
Subjective Subjective Date of Service: 10/14/24 Interval History: Follow up Gram-positive bacteremia, abdominal pain and fever Abdominal pain and fever resolved, denies chills, no headache, no dizziness, no GI bleed oob ambulating and eating Review of Systems All other system reviewed and are negative Physical Exam Vital Signs: Vital Signs: Last Vital Signs Temp 97.9 F 10/14/24 07:51 Pulse 69 10/14/24 07:51 Resp 18 10/14/24 07:51 BP 138/67 10/14/24 07:51 Pulse Ox 96 10/14/24 07:51 O2 Del Method Room Air 10/14/24 07:51 BMI result Body Mass Index 30.8 Appearing in no acute distress lung sounds are clear to auscultation heart regular rate rhythm, clear S1, S2 positive bowel sounds, abdomen is soft, nontender neuro patient is alert x3, no focal deficits Objective Data Active Medications Acetaminophen (Acetaminophen 325 Mg Tablet) 650 mg PO Q6H PRN PRN Reason: Pain, Mild 1-3,fever,headache Amlodipine Besylate (Amlodipine Besylate 5 Mg Tablet) 5 mg PO DAILY [facility]; Protocol Last Admin: 10/13/24 09:33 Dose: 5 mg Documented By: DAVID Calcium Carbonate (Calcium Carbonate 750 Mg Tab.Chew) 750 mg PO Q4H PRN PRN Reason: Heartburn Carvedilol (Carvedilol 3.125 Mg Tablet) 3.125 mg PO BID [facility]; Protocol Last Admin: 10/13/24 20:18 Dose: 3.125 mg Documented By: HENRY Ceftriaxone Sodium (Ceftriaxone Sodium 1 Gm Vial) 1 gm IVPUSH Q24H [facility] Last Admin: 10/13/24 17:58 Dose: 1 gm Documented By: DAVID Magnesium Hydroxide (Milk Of Magnesia 30 Ml Oral.Susp) 30 ml PO DAILY PRN PRN Reason: Constipation Melatonin (Melatonin 3 Mg Tablet) 6 mg PO BEDTIME PRN PRN Reason: Insomnia Morphine Sulfate (Morphine Sulfate 4 Mg/Ml Cartridge) 3 mg IVPUSH Q4H PRN; Protocol PRN Reason: Pain, Severe (Pain Scale 7-10) Last Admin: 10/09/24 17:37 Dose: 3 mg Documented By: BAILEE Sodium Chloride (0.9 % Sodium Chloride Flush 3 Ml Syringe) 3 ml IVFLUSH QSHIFT [facility] Last Admin: 10/13/24 20:19 Dose: 3 ml Documented By: HENRY Labs 10/13/24 09:46 10/14/24 05:55 Labs: Laboratory Results - last 24 hr 10/13/24 10/14/24 10/14/24 09:46 05:55 06:50 MCV 85.8 MCH 28.9 MCHC 33.7 RDW 14.4 Plt Count 30 L MPV Not Reportable Absolute Nucleated RBC 0.000 Nucleated RBC % (auto) 0.0 PT 13.7 H INR 1.2 H Anion Gap 9 L Estim Creat Clear Calc 126.3 115.0 Estimated GFR > 60 > 60 Random Glucose 86 Calcium 8.4 Vancomycin Trough 9.7 L Blood Type O Negative Antibody Screen NEGATIVE Microbiology Microbiology Results: Microbiology 10/11/24 05:59 Blood Culture - Preliminary Blood - Venous No growth after 48 hours. 10/11/24 05:59 Blood Culture - Preliminary Blood - Venous No growth after 48 hours. Assessment and Plan (1) Bacteremia: Status: Acute (2) Splenic vein thrombosis: Status: Acute (3) Portal vein thrombosis: Status: Acute (4) Sepsis: Status: Acute (5) Cirrhosis of liver with ascites: Status: Acute (6) Abdominal pain: Status: Acute (7) Thrombocytopenia: Status: Acute Plan 63M PMH HCV cirrhosis decompensated with varices, portal and splenic vein thrombosis, chronic thrombocytopenia, hypertension, noncompliant with medications presented with abdominal pain HCV with decompensated cirrhosis progression of portal vein and splenic vein thrombosis (75% stenosis of distal splenic vein and less than 50% stenosis of main portal vein) with worsening portal hypertension and varices Can not have anticoagulation due to thrombocytopenia and high risk for bleed due to large varices noted on recent EGD Case discussed with GI> IR procedure for thrombectomy with tips is tentatively scheduled for 10/15/[address] Ulloa, NPO after midnight Sepsis and abdominal pain. Sepsis resolved No recurrent fever or abdominal pain blood cultures x2 positive for Streptococcus Viridans Chest x-ray negative, UA unremarkable, CT abdomen and pelvis showed increased thrombus at the confluence of splenic and main portal veins, new mild ascites, distal esophageal wall thickening, no acute abscess Surveillance blood cultures negative ID consult> TTE no vegetation, as per ID switch Rocephin to po cephalosporin for 10 days o/p Mild hyperkalemia. Resolved likely hemolyzed specimen will follow BMP Hypertension stable BP On Amlodipine 5 mg and Coreg 3.125 mg b.i.d. Chronic pancytopenia stable H&H, platelet 30 DVT prophylaxis-mechanical due to chronic thrombocytopenia attending Dr. Hernandez Full Code Quality Stroke Does the patient have a stroke diagnosis?: No VTE Prior VTE?: No VTE Risk Level:: Medical - moderate - high VTE Device Contraindication: N/A - Device Ordered VTE Drug Contraindication: Treatment Not Tolerated
[2024-10-14 09:00] VITALS: BP 117/57
[2024-10-14] MEDS: amLODIPine Besylate 5 MG TABLET PO (09:00)
[2024-10-14 09:01] VITALS: BP 117/66; PULSE 66
[2024-10-14] MEDS: carvediloL 3.125 MG TABLET PO ×2 (09:01→21:24)
[2024-10-14] MEDS: 0.9 % Sodium Chloride Flush 3 ML SYRINGE IVFLUSH ×3 (09:01→21:38)
[2024-10-14 16:08] VITALS: BP 134/63; PULSE 70; RESP 18; TEMP 36.7; O2SAT 100
[2024-10-14] MEDS: cefTRIAXone sodium 1 GM VIAL IVPUSH (18:07)
[2024-10-14 20:00] VITALS: BP 132/62; PULSE 70; RESP 16; TEMP 36.8; O2SAT 99
[2024-10-15] VITALS (24 sets, daily range): BP systolic 104–161; BP diastolic 53–71; PULSE 61–83; RESP 16–24; TEMP 36.1–36.7; O2SAT 91–99
[2024-10-15 06:52] LABS: Creatinine Clr Calc Pharmacy 122.8; Estimated Glomerular Filt Rate > 60
[2024-10-15] MEDS: 0.9 % Sodium Chloride Flush 3 ML SYRINGE IVFLUSH ×3 (07:33→20:54)
[2024-10-15 08:16] LABS: Eosinophils Percent Auto 1.1 % (0-4); MANUAL DIFF FLAG SCAN; Red Cell Distribution Width 14.3 % (11.0-16.0); SCAN SMEAR FLAG 1
[2024-10-15 08:18] LABS: Basophils Percent Auto 0.5 % (0-2); Hematocrit 31.1 % (42.0-52.0); Hemoglobin 9.9 g/dl (14.0-18.0); Lymphocytes Absolute Auto 0.7 X10*3/uL (1.2-4.9); Lymphocytes Percent Auto 35.6 % (20-40); Mean Corpuscular HGB Conc 31.8 g/dl (31.0-36.0); Mean Corpuscular Hemoglobin 27.7 pg (27.0-33.0); Mean Corpuscular Volume 87.1 fL (80.0-98.0); Monocytes Absolute Auto 0.2 X10*3/uL (0.1-1.2); Monocytes Percent Auto 10.1 % (2-11); Neutrophils Percent Auto 52.7 % (45-73); Red Blood Count 3.57 X10*6/uL (4.60-5.80)
[2024-10-15 08:19] LABS: PLT ABN DIST 1; Platelet Count 23 X10*3/uL (160-400); White Blood Count 1.9 X10*3/uL (4.8-10.8)
[2024-10-15 08:41] LABS: SLIDE REVIEW VERIFIED
[2024-10-15] MEDS: carvediloL 3.125 MG TABLET PO ×2 (08:44→20:53)
[2024-10-15] MEDS: amLODIPine Besylate 5 MG TABLET PO (08:45)
--- NOTE | 2024-10-15 10:42 | MHC.CM.PN ---
Per MD rounds patient not medically cleared for dc. No change to dc plan - return to [facility]. [facility] has submitted referral to [employer] program. CM will continue to follow.
--- NOTE | 2024-10-15 12:51 | P.PNIM_ITS ---
Subjective Subjective Date of Service: 10/15/24 Interval History: This history was taken in French from the patient. No hematemesis, hematochezia, or melena. No abd pain. Review of Systems Review of Systems: Yes all other systems are reviewed and are negative Physical Exam 2 Vital Signs: Vital Signs: Last Vital Signs Temp 97.9 F 10/15/24 12:10 Pulse 61 10/15/24 12:10 Resp 16 10/15/24 12:10 BP 104/66 10/15/24 12:10 Pulse Ox 99 10/15/24 12:10 O2 Del Method Room Air 10/15/24 12:10 BMI result Body Mass Index 30.8 Gen: in no acute distress HEENT: sclera anicteric, moist mucus membranes Neck: supple Lungs: clear to auscultation bilaterally Heart: regular rate and rhythm, no murmurs Abd: soft, non-tender, non-distended Ext: no edema Skin: warm/well-perfused Neuro: alert and oriented x3, no focal findings, no asterixis Psych: appropriate affect Objective Data Active Medications Acetaminophen (Acetaminophen 325 Mg Tablet) 650 mg PO Q6H PRN PRN Reason: Pain, Mild 1-3,fever,headache Amlodipine Besylate (Amlodipine Besylate 5 Mg Tablet) 5 mg PO DAILY [facility]; Protocol Last Admin: 10/15/24 08:45 Dose: 5 mg Documented By: RAS Calcium Carbonate (Calcium Carbonate 750 Mg Tab.Chew) 750 mg PO Q4H PRN PRN Reason: Heartburn Carvedilol (Carvedilol 3.125 Mg Tablet) 3.125 mg PO BID [facility]; Protocol Last Admin: 10/15/24 08:44 Dose: 3.125 mg Documented By: RAS Ceftriaxone Sodium (Ceftriaxone Sodium 1 Gm Vial) 1 gm IVPUSH Q24H [facility] Last Admin: 10/14/24 18:07 Dose: 1 gm Documented By: RAS Magnesium Hydroxide (Milk Of Magnesia 30 Ml Oral.Susp) 30 ml PO DAILY PRN PRN Reason: Constipation Melatonin (Melatonin 3 Mg Tablet) 6 mg PO BEDTIME PRN PRN Reason: Insomnia Sodium Chloride (0.9 % Sodium Chloride Flush 3 Ml Syringe) 3 ml IVFLUSH QSHIFT [facility] Last Admin: 10/15/24 07:33 Dose: 3 ml Documented By: RAS Labs 10/15/24 05:27 10/15/24 05:27 Labs: Laboratory Results - last 24 hr 10/13/24 10/15/24 09:46 05:27 MCV 87.1 MCH 27.7 MCHC 31.8 RDW 14.3 Plt Count 23 L MPV Not Reportable Immature Gran % (Auto) 0.0 Neut % (Auto) 52.7 Lymph % (Auto) 35.6 [place] % (Auto) 10.1 Eos % (Auto) 1.1 Baso % (Auto) 0.5 Lymph # (Auto) 0.7 L [place] # (Auto) 0.2 Eos # (Auto) 0.0 Baso # (Auto) 0.0 Abs Immat Gran (auto) 0.00 Absolute Neuts (auto) 1.0 L Absolute Nucleated RBC 0.000 Nucleated RBC % (auto) 0.0 Smear Tech's Comments VERIFIED Hold Purple Top SEE NOTE Estim Creat Clear Calc 122.8 Estimated GFR > 60 Blood Type O Negative Antibody Screen NEGATIVE Assessment and Plan (1) Bacteremia: Status: Acute (2) Splenic vein thrombosis: Status: Acute (3) Portal vein thrombosis: Status: Acute (4) Sepsis: Status: Acute (5) Cirrhosis of liver with ascites: Status: Acute (6) Abdominal pain: Status: Acute (7) Thrombocytopenia: Status: Acute Plan d8 for 63yo M with decompensated HCV cirrhosis with varices, portal + splenic vein thrombes, chronic thrombocytopenia, HTN; noncompliance with medications; presented with abd pain; found to have Streptococcus mitis bacteremia HCV with decompensated cirrhosis progression of portal vein and splenic vein thrombosis (75% stenosis of distal splenic vein and less than 50% stenosis of main portal vein) with worsening portal hypertension and varices - cannot anticoagulate due to thrombocytoepnia + large varices - discussed with GI, plan TIPS + thrombectomy today for which pt is NPO sepsis due to Streptococcus mitis bacteremia [on blood cultures 10/08] - TTE negative for vegetation - chest x-ray negative, UA unremarkable - CT A/P showed increased thrombus at the confluence of splenic and main portal veins, new mild ascites, distal esophageal wall thickening, no acute abscess - sepsis physiology resolved; repeat BCx 10/11 negative - ID consulted, plan 10d of IV ceftriaxone [change to PO cephalosporin upon discharge] pancytopenia due to cirrhosis - monitor counts hyperK - likely hemolysis; resolved HTN - continue amlodipine + carvedilol VTE ppx - SCDs; no heparin due to low plts dispo - plan home eventually In my clinical judgment, the patient requires continued inpatient hospitalization for the following reasons: TIPS Total time managing care of this patient today: 45 minutes. Quality Stroke Does the patient have a stroke diagnosis?: No VTE Prior VTE?: No VTE Risk Level:: Medical - moderate - high VTE Device Contraindication: N/A - Device Ordered VTE Drug Contraindication: Treatment Not Tolerated
--- NOTE | 2024-10-15 12:57 | HO.ANESPROP2 ---
[facility] Active Problems Active Problems: All Active Problems Esophageal varices (Acute) Bacteremia (Acute) Splenic vein thrombosis (Acute) Portal vein thrombosis (Acute) Sepsis (Acute) Cirrhosis of liver with ascites (Acute) Vomiting (Acute) Abdominal pain (Acute) Thrombocytopenia (Acute) UGIB (upper gastrointestinal bleed) (Acute) Atrophic gastritis (Acute) Cirrhosis (Acute) Pancytopenia (Acute) Hyperplastic adenomatous polyp of stomach (Acute) Iron deficiency anemia (Acute) Cirrhosis (Acute) Hepatitis B core antibody positive (Acute) Hepatitis C virus infection (Acute) Thickening of wall of gallbladder (Acute) Pancytopenia (Acute) Past Medical History Medical History Esophageal varices Pancytopenia Iron deficiency anemia Cirrhosis Hepatitis C HBP (high blood pressure) Functional capacity: independent ambulation Family History Family History Maternal Grandmother Breast CA Uterus cancer Mother Primary lung cancer of unknown cell type Family history of problems with anesthesia: No Surgical History Surgical History H/O left inguinal hernia repair H/O eye surgery History of esophagogastroduodenoscopy (EGD) H/O colonoscopy History of Problems with Anesthesia: No Social History Social History Household Members: None Household Members Other:: retirement Housing: Homeless Housing Other:: retirement Are you a primary skin care therapist to a significant other at home: No Do you presently have visiting nurse or other home services: No Comment: pt refused all high fall risk interventions Patient Tobacco Use Status: Current everyday Tobacco user Tobacco use type: Cigarette Cigarette Packs Per Day: 1 Cigarettes Per Day: 5 Years Smoked: 30 Second Hand Smoke Exposure: No Substance Use Type: Crack/Cocaine and Marijuana Advance Directives Date on File: 04/02/24 service: No Current occupational status: retired Meds Allergies Allergy/AdvReac Type Severity Reaction Status Date / Time aspirin AdvReac Severe stomach Verified 10/08/24 19:51 bleeding NSAIDS (Non-Steroidal AdvReac Severe liver Verified 10/08/24 19:51 Anti-Inflamma concerns Active Medications: Current Medications Acetaminophen (Acetaminophen 325 Mg Tablet) 650 mg PO Q6H PRN PRN Reason: Pain, Mild 1-3,fever,headache Amlodipine Besylate (Amlodipine Besylate 5 Mg Tablet) 5 mg PO DAILY [facility]; Protocol Last Admin: 10/15/24 08:45 Dose: 5 mg Calcium Carbonate (Calcium Carbonate 750 Mg Tab.Chew) 750 mg PO Q4H PRN PRN Reason: Heartburn Carvedilol (Carvedilol 3.125 Mg Tablet) 3.125 mg PO BID [facility]; Protocol Last Admin: 10/15/24 08:44 Dose: 3.125 mg Ceftriaxone Sodium (Ceftriaxone Sodium 1 Gm Vial) 1 gm IVPUSH Q24H [facility] Last Admin: 10/14/24 18:07 Dose: 1 gm Magnesium Hydroxide (Milk Of Magnesia 30 Ml Oral.Susp) 30 ml PO DAILY PRN PRN Reason: Constipation Melatonin (Melatonin 3 Mg Tablet) 6 mg PO BEDTIME PRN PRN Reason: Insomnia Sodium Chloride (0.9 % Sodium Chloride Flush 3 Ml Syringe) 3 ml IVFLUSH QSHIFT [facility] Last Admin: 10/15/24 07:33 Dose: 3 ml Home Medications ?Medication ?Instructions ?Recorded ?Confirmed ?Last Taken ?Type No Known Home Meds 10/09/24 10/09/24 Unknown History Exam Height,Weight and Vital Signs: Height 5 ft 10 in Weight 97.5 kg Last Vital Signs Temp 97.9 F 10/15/24 12:10 Pulse 61 10/15/24 12:10 Resp 16 10/15/24 12:10 BP 104/66 10/15/24 12:10 Pulse Ox 99 10/15/24 12:10 O2 Del Method Room Air 10/15/24 12:10 Pertinent Lab Results Pertinent Lab Results: Laboratory Tests 10/08/24 10/08/24 10/08/24 20:02 20:03 20:14 WBC 2.9 L RBC 4.19 L Hgb 11.6 L Hct 35.8 L MCV 85.4 MCH 27.7 MCHC 32.4 RDW 14.5 Plt Count 23 L MPV Not Reportable Immature Gran % (Auto) 0.3 Neut % (Auto) 76.0 H Lymph % (Auto) 15.0 L [place] % (Auto) 7.7 Eos % (Auto) 1.0 Baso % (Auto) 0.0 Lymph # (Auto) 0.4 L [place] # (Auto) 0.2 Eos # (Auto) 0.0 Baso # (Auto) 0.0 Abs Immat Gran (auto) 0.01 Absolute Neuts (auto) 2.2 Absolute Nucleated RBC 0.000 Nucleated RBC % (auto) 0.0 Smear Tech's Comments Hold Purple Top PT INR Sodium 138 Potassium 4.5 Chloride 110 H Carbon Dioxide 25 Anion Gap 8 L BUN 10 Creatinine 0.74 Estim Creat Clear Calc 121.2 Estimated GFR > 60 Random Glucose 110 Lactic Acid 2.6 H* Lactic Acid F/U @ 2Hr Calcium 8.9 Magnesium 2.1 Total Bilirubin 0.7 Direct Bilirubin AST 40 H ALT 28 Alkaline Phosphatase 126 H Troponin I High Sens 7.4 Total Protein 7.6 Albumin 3.5 Lipase 26 Urine Color Urine Appearance Urine pH Ur Specific [place] Urine Protein Urine Glucose (UA) Urine Ketones Urine Blood Urine Nitrite Ur Leukocyte Esterase Urine RBC Urine WBC Ur Squamous Epith Cells Urine Bacteria Hyaline Casts Vancomycin Trough Random Vancomycin Ethyl Alcohol < 10 Influenza Type A (PCR) NEGATIVE Influenza Type B (PCR) NEGATIVE RSV RNA Qual (PCR) NEGATIVE SARS-CoV-2 RNA (RT-PCR) NEGATIVE S. pyogenes GrpA JUSTIN Negative Blood Type Antibody Screen 10/08/24 10/08/24 10/08/24 22:20 22:40 23:05 WBC RBC Hgb Hct MCV MCH MCHC RDW Plt Count MPV Immature Gran % (Auto) Neut % (Auto) Lymph % (Auto) [place] % (Auto) Eos % (Auto) Baso % (Auto) Lymph # (Auto) [place] # (Auto) Eos # (Auto) Baso # (Auto) Abs Immat Gran (auto) Absolute Neuts (auto) Absolute Nucleated RBC Nucleated RBC % (auto) Smear Tech's Comments Hold Purple Top PT INR Sodium Potassium Chloride Carbon Dioxide Anion Gap BUN Creatinine Estim Creat Clear Calc Estimated GFR Random Glucose Lactic Acid Lactic Acid F/U @ 2Hr 1.8 Calcium Magnesium Total Bilirubin Direct Bilirubin AST ALT Alkaline Phosphatase Troponin I High Sens 7.3 Total Protein Albumin Lipase Urine Color Yellow Urine Appearance Clear Urine pH 8.5 Ur Specific [place] >= 1.030 H Urine Protein Negative Urine Glucose (UA) Negative Urine Ketones Negative Urine Blood Negative Urine Nitrite Negative Ur Leukocyte Esterase Negative Urine RBC 0-2 Urine WBC 0-5 Ur Squamous Epith Cells 0-2 Urine Bacteria None Seen Hyaline Casts 0-2 Vancomycin Trough Random Vancomycin Ethyl Alcohol Influenza Type A (PCR) Influenza Type B (PCR) RSV RNA Qual (PCR) SARS-CoV-2 RNA (RT-PCR) S. pyogenes GrpA JUSTIN Blood Type Antibody Screen 10/09/24 10/10/24 10/10/24 04:55 05:48 10:04 WBC 2.2 L 2.9 L RBC 3.77 L 4.21 L Hgb 10.4 L 11.6 L Hct 32.9 L 36.2 L MCV 87.3 86.0 MCH 27.6 27.6 MCHC 31.6 32.0 RDW 14.6 14.3 Plt Count 21 L 25 L MPV Not Reportable Not Reportable Immature Gran % (Auto) Neut % (Auto) Lymph % (Auto) [place] % (Auto) Eos % (Auto) Baso % (Auto) Lymph # (Auto) [place] # (Auto) Eos # (Auto) Baso # (Auto) Abs Immat Gran (auto) Absolute Neuts (auto) Absolute Nucleated RBC 0.000 0.000 Nucleated RBC % (auto) 0.0 0.0 Smear Tech's Comments Hold Purple Top SEE NOTE PT 14.5 H INR 1.2 H Sodium 139 141 Potassium 4.2 5.4 H D Chloride 109 H 110 H Carbon Dioxide 25 25 Anion Gap 9 L 11 L BUN 10 12 Creatinine 0.79 0.72 0.74 Estim Creat Clear Calc 113.5 124.5 121.2 Estimated GFR > 60 > 60 > 60 Random Glucose 89 86 Lactic Acid Lactic Acid F/U @ 2Hr Calcium 8.6 9.1 Magnesium 2.0 Total Bilirubin 1.1 H Direct Bilirubin 0.5 AST 31 ALT 22 Alkaline Phosphatase 115 Troponin I High Sens Total Protein 7.5 Albumin 3.4 L Lipase Urine Color Urine Appearance Urine pH Ur Specific [place] Urine Protein Urine Glucose (UA) Urine Ketones Urine Blood Urine Nitrite Ur Leukocyte Esterase Urine RBC Urine WBC Ur Squamous Epith Cells Urine Bacteria Hyaline Casts Vancomycin Trough Random Vancomycin Ethyl Alcohol Influenza Type A (PCR) Influenza Type B (PCR) RSV RNA Qual (PCR) SARS-CoV-2 RNA (RT-PCR) S. pyogenes GrpA JUSTIN Blood Type Antibody Screen 10/10/24 10/11/24 10/11/24 14:03 05:59 13:53 WBC 2.0 L RBC 3.80 L Hgb 10.5 L Hct 32.4 L MCV 85.3 MCH 27.6 MCHC 32.4 RDW 14.0 Plt Count 24 L MPV TNP Immature Gran % (Auto) Neut % (Auto) Lymph % (Auto) [place] % (Auto) Eos % (Auto) Baso % (Auto) Lymph # (Auto) [place] # (Auto) Eos # (Auto) Baso # (Auto) Abs Immat Gran (auto) Absolute Neuts (auto) Absolute Nucleated RBC 0.000 Nucleated RBC % (auto) 0.0 Smear Tech's Comments Hold Purple Top PT INR Sodium 141 Potassium 4.7 Chloride 110 H Carbon Dioxide 25 Anion Gap 11 L BUN 13 Creatinine 0.73 Estim Creat Clear Calc 122.8 Estimated GFR > 60 Random Glucose 106 Lactic Acid Lactic Acid F/U @ 2Hr Calcium 8.5 D Magnesium Total Bilirubin Direct Bilirubin AST ALT Alkaline Phosphatase Troponin I High Sens Total Protein Albumin Lipase Urine Color Urine Appearance Urine pH Ur Specific [place] Urine Protein Urine Glucose (UA) Urine Ketones Urine Blood Urine Nitrite Ur Leukocyte Esterase Urine RBC Urine WBC Ur Squamous Epith Cells Urine Bacteria Hyaline Casts Vancomycin Trough Random Vancomycin 14.0 L 15.0 Ethyl Alcohol Influenza Type A (PCR) Influenza Type B (PCR) RSV RNA Qual (PCR) SARS-CoV-2 RNA (RT-PCR) S. pyogenes GrpA JUSTIN Blood Type Antibody Screen 10/12/24 10/12/24 10/13/24 07:17 14:30 05:43 WBC RBC Hgb Hct MCV MCH MCHC RDW Plt Count MPV Immature Gran % (Auto) Neut % (Auto) Lymph % (Auto) [place] % (Auto) Eos % (Auto) Baso % (Auto) Lymph # (Auto) [place] # (Auto) Eos # (Auto) Baso # (Auto) Abs Immat Gran (auto) Absolute Neuts (auto) Absolute Nucleated RBC Nucleated RBC % (auto) Smear Tech's Comments Hold Purple Top SEE NOTE PT INR Sodium Potassium Chloride Carbon Dioxide Anion Gap BUN Creatinine 0.76 0.73 Estim Creat Clear Calc 118.0 122.8 Estimated GFR > 60 > 60 Random Glucose Lactic Acid Lactic Acid F/U @ 2Hr Calcium Magnesium Total Bilirubin Direct Bilirubin AST ALT Alkaline Phosphatase Troponin I High Sens Total Protein Albumin Lipase Urine Color Urine Appearance Urine pH Ur Specific [place] Urine Protein Urine Glucose (UA) Urine Ketones Urine Blood Urine Nitrite Ur Leukocyte Esterase Urine RBC Urine WBC Ur Squamous Epith Cells Urine Bacteria Hyaline Casts Vancomycin Trough 13.3 Random Vancomycin Ethyl Alcohol Influenza Type A (PCR) Influenza Type B (PCR) RSV RNA Qual (PCR) SARS-CoV-2 RNA (RT-PCR) S. pyogenes GrpA JUSTIN Blood Type Antibody Screen 10/13/24 10/14/24 10/14/24 09:46 05:55 06:50 WBC 2.6 L RBC 4.15 L Hgb 12.0 L Hct 35.6 L MCV 85.8 MCH 28.9 MCHC 33.7 RDW 14.4 Plt Count 30 L MPV Not Reportable Immature Gran % (Auto) Neut % (Auto) Lymph % (Auto) [place] % (Auto) Eos % (Auto) Baso % (Auto) Lymph # (Auto) [place] # (Auto) Eos # (Auto) Baso # (Auto) Abs Immat Gran (auto) Absolute Neuts (auto) Absolute Nucleated RBC 0.000 Nucleated RBC % (auto) 0.0 Smear Tech's Comments Hold Purple Top PT 13.7 H INR 1.2 H Sodium 138 Potassium 4.7 Chloride 110 H Carbon Dioxide 24 Anion Gap 9 L BUN 13 Creatinine 0.71 0.78 Estim Creat Clear Calc 126.3 115.0 Estimated GFR > 60 > 60 Random Glucose 86 Lactic Acid Lactic Acid F/U @ 2Hr Calcium 8.4 Magnesium Total Bilirubin Direct Bilirubin AST ALT Alkaline Phosphatase Troponin I High Sens Total Protein Albumin Lipase Urine Color Urine Appearance Urine pH Ur Specific [place] Urine Protein Urine Glucose (UA) Urine Ketones Urine Blood Urine Nitrite Ur Leukocyte Esterase Urine RBC Urine WBC Ur Squamous Epith Cells Urine Bacteria Hyaline Casts Vancomycin Trough 9.7 L Random Vancomycin Ethyl Alcohol Influenza Type A (PCR) Influenza Type B (PCR) RSV RNA Qual (PCR) SARS-CoV-2 RNA (RT-PCR) S. pyogenes GrpA JUSTIN Blood Type O Negative Antibody Screen NEGATIVE 10/15/24 05:27 WBC 1.9 L RBC 3.57 L Hgb 9.9 L Hct 31.1 L MCV 87.1 MCH 27.7 MCHC 31.8 RDW 14.3 Plt Count 23 L MPV Not Reportable Immature Gran % (Auto) 0.0 Neut % (Auto) 52.7 Lymph % (Auto) 35.6 [place] % (Auto) 10.1 Eos % (Auto) 1.1 Baso % (Auto) 0.5 Lymph # (Auto) 0.7 L [place] # (Auto) 0.2 Eos # (Auto) 0.0 Baso # (Auto) 0.0 Abs Immat Gran (auto) 0.00 Absolute Neuts (auto) 1.0 L Absolute Nucleated RBC 0.000 Nucleated RBC % (auto) 0.0 Smear Tech's Comments VERIFIED Hold Purple Top SEE NOTE PT INR Sodium Potassium Chloride Carbon Dioxide Anion Gap BUN Creatinine 0.73 Estim Creat Clear Calc 122.8 Estimated GFR > 60 Random Glucose Lactic Acid Lactic Acid F/U @ 2Hr Calcium Magnesium Total Bilirubin Direct Bilirubin AST ALT Alkaline Phosphatase Troponin I High Sens Total Protein Albumin Lipase Urine Color Urine Appearance Urine pH Ur Specific [place] Urine Protein Urine Glucose (UA) Urine Ketones Urine Blood Urine Nitrite Ur Leukocyte Esterase Urine RBC Urine WBC Ur Squamous Epith Cells Urine Bacteria Hyaline Casts Vancomycin Trough Random Vancomycin Ethyl Alcohol Influenza Type A (PCR) Influenza Type B (PCR) RSV RNA Qual (PCR) SARS-CoV-2 RNA (RT-PCR) S. pyogenes GrpA JUSTIN Blood Type Antibody Screen Airway Mallampati Class: II TM Dist: >3cm Neck ROM: Full Heart: RRR Lungs: CTA Assessment and Plan Assessment Anesthesia Assessment: Anesthesia Plan Discussed and Chart Reviewed Final Anesthetic Review Family History of Problems with Anesthesia: No History of Problems with Anesthesia: No NPO: Yes ASA Class: IV Final Preanesthetic Review: Meds/Allgs Chart Reviewed, Consent Obtained/Reviewed and Anes Risks/Benef Reviewed Patient Risk: Intermediate Procedure Risk: Intermediate Anesthetic Plan Anesthetic Plan: GA Disposition: Standard PACU
--- NOTE | 2024-10-15 14:55 | PC.NURSE ---
Procedure continues with anesthesia. Plts continue to infusion at a slow rate per Dr Ness and Dr Wilkinson.
--- NOTE | 2024-10-15 15:36 | PC.NURSE ---
Procedure continues. cont with infusion of plts at a slow rate per Dr Ness and Dr Wilkinson. Anesthesia cont to monitor vital signs and medication
[2024-10-15 18:13] LABS: MANUAL DIFF FLAG NO
[2024-10-15] MEDS: cefTRIAXone sodium 1 GM VIAL IVPUSH (18:16)
[2024-10-15 18:19] LABS: Eosinophils Percent Auto 0.7 % (0-4); Hematocrit 35.5 % (42.0-52.0); Hemoglobin 11.4 g/dl (14.0-18.0); Imm Gran Abs Auto 0.01 X10*3/uL (0.00-0.03); Imm Gran Pct Auto 0.4 % (0.0-0.4); Lymphocytes Absolute Auto 0.5 X10*3/uL (1.2-4.9); Lymphocytes Percent Auto 18.7 % (20-40); Mean Corpuscular HGB Conc 32.1 g/dl (31.0-36.0); Mean Corpuscular Hemoglobin 27.6 pg (27.0-33.0); Mean Platelet Volume 11.8 fL (9.4-12.4); Monocytes Absolute Auto 0.1 X10*3/uL (0.1-1.2); Monocytes Percent Auto 1.8 % (2-11); Neutrophils Absolute Auto 2.2 x10*3/uL (2.0-8.3); Neutrophils Percent Auto 78.4 % (45-73); Red Blood Count 4.13 X10*6/uL (4.60-5.80); Red Cell Distribution Width 14.4 % (11.0-16.0); White Blood Count 2.8 X10*3/uL (4.8-10.8)
[2024-10-15 18:20] LABS: Platelet Count 32 X10*3/uL (160-400)
[2024-10-15 18:36] LABS: Anion Gap 10 (12-20); Blood Urea Nitrogen 13 mg/dL (9-16); Calcium 8.5 mg/dL (8.4-10.2); Carbon Dioxide 25 mmol/L (22-29); Chloride 109 mmol/L (96-108); Creatinine Clr Calc Pharmacy 122.8; Estimated Glomerular Filt Rate > 60; Glucose Random 103 mg/dL (60-115); Potassium 5.1 mmol/L (3.3-5.1); Sodium 139 mmol/L (135-145)
--- NOTE | 2024-10-15 19:37 | PM.EVENT ---
Documented by User: Berenice Lovell NP 10/15/24 22:32 Event Note Date of Service: 10/15/24 Event Note: 63M PMH HCV, cirrhosis decompensated with varices, portal and splenic vein thrombosis, chronic thrombocytopenia, hypertension admitted w/ abdominal pain, found to have Streptococcus mitis bacteremia. CT A/P showed increased thrombus at the confluence of splenic and main portal veins. The pt underwent a TIPS procedure today. Pt is high risk for bleeding d/t thrombocytopenia, varices.? Transferred to ICU post-operatively for closer monitoring Time Spent With Patient Time: Total time managing care of this patient today ____ minutes. Documented by User: Zana Spear MD 10/16/24 11:53 Event Note Date of Service: 10/16/24
[2024-10-16] VITALS (13 sets, daily range): BP systolic 118–174; BP diastolic 52–77; PULSE 71–98; RESP 16–25; TEMP 37.1–37.2; O2SAT 94–98; BMI 31.5
[2024-10-16 05:36] LABS: VBG Base Excess -2.2 mmol/L; VBG HCO3 20 mmol/L (22-26); VBG pCO2 29 mmHg; VBG pH 7.45 (7.32-7.43); VBG pO2 67 mmHg
[2024-10-16 06:31] LABS: Venous Blood Gas Refer to POC result
[2024-10-16 06:52] LABS: Hematocrit 35.4 % (42.0-52.0); Hemoglobin 11.4 g/dl (14.0-18.0); Mean Corpuscular HGB Conc 32.2 g/dl (31.0-36.0); Mean Corpuscular Hemoglobin 27.3 pg (27.0-33.0); Mean Corpuscular Volume 84.7 fL (80.0-98.0); Red Blood Count 4.18 X10*6/uL (4.60-5.80); Red Cell Distribution Width 13.9 % (11.0-16.0); White Blood Count 4.6 X10*3/uL (4.8-10.8)
[2024-10-16 06:53] LABS: Platelet Count 33 X10*3/uL (160-400)
[2024-10-16 07:00] LABS: Alanine Aminotransferase 31 U/L (0-40); Alkaline Phosphatase 111 U/L (39-117); Anion Gap 10 (12-20); Aspartate Amino Transferase 46 U/L (5-37); Blood Urea Nitrogen 13 mg/dL (9-16); Calcium 8.7 mg/dL (8.4-10.2); Carbon Dioxide 20 mmol/L (22-29); Chloride 112 mmol/L (96-108); Creatinine Clr Calc Pharmacy 131.3; Estimated Glomerular Filt Rate > 60; Glucose Random 102 mg/dL (60-115); Phosphorus 2.4 mg/dL (2.7-4.5); Potassium 4.5 mmol/L (3.3-5.1); Sodium 137 mmol/L (135-145); Total Protein 7.1 g/dL (6.5-8.0)
[2024-10-16 07:36] LABS: INTERNATIONAL NORM RATIO 1.3 (0.9-1.1); Prothrombin Time 15.7 SEC (10.9-12.4)
[2024-10-16] MEDS: amLODIPine Besylate 5 MG TABLET PO (08:41)
[2024-10-16] MEDS: carvediloL 3.125 MG TABLET PO (08:41)
[2024-10-16] MEDS: 0.9 % Sodium Chloride Flush 3 ML SYRINGE IVFLUSH (08:42)
--- NOTE | 2024-10-16 08:43 | HO.POSTANES ---
Post Anesthesia Evaluation Post Anesthesia Evaluation Date of Service: 10/16/24 Vital Signs: Vital Signs Temp Pulse Resp BP Pulse Ox O2 Del Method O2 Flow Rate 10/16/24 08:00 99.0 F 71 22 H 134/67 94 Nasal Cannula 2.5 10/16/24 07:00 74 23 H 130/56 L 96 Nasal Cannula 2.5 10/16/24 06:00 75 19 131/54 L 94 Nasal Cannula 2 10/16/24 05:00 74 17 130/63 96 Nasal Cannula 2.5 10/16/24 04:00 98 17 130/61 98 Nasal Cannula 2.5 10/16/24 03:00 72 17 126/56 L 98 Nasal Cannula 2.5 10/16/24 02:00 74 17 120/52 L 96 Nasal Cannula 2.5 10/16/24 01:00 73 16 133/56 L 97 Nasal Cannula 2.5 10/16/24 00:00 98.9 F 71 17 133/61 97 Nasal Cannula 2.5 10/15/24 23:00 73 21 H 130/59 L 98 Nasal Cannula 2.5 10/15/24 22:00 83 17 161/71 H 98 Nasal Cannula 2.5 10/15/24 21:00 74 18 146/65 H 99 Nasal Cannula 2.5 Anesthesia: General Endotracheal-GETA Mental Status: Awake Pain Control: Satisfactory Nausea/Vomiting: None Hydration: Adequate Anesthesia-Related Issues: No Anes. Related Issues
[2024-10-16 10:29] LABS: VBG Base Excess 2.1 mmol/L; VBG HCO3 23 mmol/L (22-26); VBG pCO2 28 mmHg; VBG pH 7.52 (7.32-7.43); VBG pO2 54 mmHg
[2024-10-16 11:14] LABS: Ammonia 60 umol/L (13-55)
[2024-10-16] MEDS: Lactulose 20 GM/30 ML SOLUTION PO ×2 (11:17→13:09)
--- NOTE | 2024-10-16 11:27 | PM.EVENT ---
Event Note Date of Service: 10/16/24 Event Note: Interventional Radiology Progress Note: S:Denies pain, nausea/vomiting. O: Afebrile, 73, 118/58, 96% RA Gen: NAD Abd: soft, nt Skin: Neck dressing c/d/i Neuro: A+O x 4, no asterexis Ammonia- 60 HCT- 35 (35) PLT- 33 (32) A: 63 y/o man with cirrhosis s/p TIPS -Start lactulose 20 mg q6-8h, goal 2-3 BM/day -Ok to discharge from IR standpoint -Will arrange for outpatient US in 4-6 weeks -D/W Dr. Grover Wong PA Time Spent With Patient Time: Total time managing care of this patient today ____ minutes.
--- NOTE | 2024-10-16 11:53 | P.PNCC_ITS ---
Subjective Subjective Date of Service: 10/16/24 Interval History: 63-year-old gentleman with underlying hepatitis-C decompensated cirrhosis with varices, portal vein thrombosis admitted on 10/08/2024 with abdominal pain with hospital course complicated by Streptococcus bacteremia and worsening portal hypertension status post TIPS on 10/15/2024 monitored in the Intensive Care postprocedure. No events overnight. Critical Care Time (minutes): 0 Physical Exam 2 Vital Signs: Vital Signs: Last Vital Signs Temp 99.0 F 10/16/24 08:00 Pulse 74 10/16/24 11:00 Resp 21 H 10/16/24 11:00 BP 130/57 L 10/16/24 11:00 Pulse Ox 96 10/16/24 11:00 O2 Del Method Room Air 10/16/24 11:00 O2 Flow Rate 2.5 10/16/24 11:00 BMI result Body Mass Index 31.5 Const: General: no acute distress, alert and awake Eyes: Sclerae: sclerae normal EOM: EOMs intact bilaterally Neck: Neck: Yes no lymphadenopathy, Yes trachea midline and Yes supple Resp: Effort & Inspection: normal respiratory effort and no respiratory distress Auscultation: clear to auscultation bilaterally Cardio: Rate: regular rate Rhythm: regular rhythm Heart sounds: no gallops, no murmurs and no rubs GI: Palpation (GI): Soft to palpation and Other GI palpation findings present ( Nontender) Auscultation: normal bowel sounds Extrem: General: Yes no pedal edema, No clubbing and No cyanosis Objective Data Labs 10/16/24 05:27 10/16/24 05:44 Labs: Laboratory Results - last 24 hr 10/13/24 10/15/24 10/16/24 09:46 18:02 05:27 WBC 2.8 L 4.6 L RBC 4.13 L 4.18 L Hgb 11.4 L 11.4 L Hct 35.5 L 35.4 L MCV 86.0 84.7 MCH 27.6 27.3 MCHC 32.1 32.2 RDW 14.4 13.9 Plt Count 32 L D 33 L MPV 11.8 Not Reportable Immature Gran % (Auto) 0.4 Neut % (Auto) 78.4 H Lymph % (Auto) 18.7 L [place] % (Auto) 1.8 L Eos % (Auto) 0.7 Baso % (Auto) 0.0 Lymph # (Auto) 0.5 L [place] # (Auto) 0.1 Eos # (Auto) 0.0 Baso # (Auto) 0.0 Abs Immat Gran (auto) 0.01 Absolute Neuts (auto) 2.2 Absolute Nucleated RBC 0.000 0.000 Nucleated RBC % (auto) 0.0 0.0 PT INR VBG pH VBG pCO2 VBG pO2 VBG HCO3 VBG O2 Saturation VBG Base Excess Sodium 139 Potassium 5.1 Chloride 109 H Carbon Dioxide 25 Anion Gap 10 L BUN 13 Creatinine 0.73 Estim Creat Clear Calc 122.8 Estimated GFR > 60 Random Glucose 103 Calcium 8.5 Phosphorus Magnesium Total Bilirubin AST ALT Alkaline Phosphatase Ammonia Total Protein Albumin Blood Type O Negative Antibody Screen NEGATIVE 10/16/24 10/16/24 10/16/24 05:31 05:44 05:50 WBC RBC Hgb Hct MCV MCH MCHC RDW Plt Count MPV Immature Gran % (Auto) Neut % (Auto) Lymph % (Auto) [place] % (Auto) Eos % (Auto) Baso % (Auto) Lymph # (Auto) [place] # (Auto) Eos # (Auto) Baso # (Auto) Abs Immat Gran (auto) Absolute Neuts (auto) Absolute Nucleated RBC Nucleated RBC % (auto) PT 15.7 H INR 1.3 H VBG pH 7.45 H 7.52 H VBG pCO2 29 28 VBG pO2 67 54 VBG HCO3 20 L 23 VBG O2 Saturation 95.0 87.0 VBG Base Excess -2.2 2.1 Sodium 137 Potassium 4.5 Chloride 112 H Carbon Dioxide 20 L Anion Gap 10 L BUN 13 Creatinine 0.69 Estim Creat Clear Calc 131.3 Estimated GFR > 60 Random Glucose 102 Calcium 8.7 Phosphorus 2.4 L Magnesium 2.0 Total Bilirubin 1.0 AST 46 H ALT 31 Alkaline Phosphatase 111 Ammonia Total Protein 7.1 Albumin 3.0 L Blood Type Antibody Screen 10/16/24 11:00 WBC RBC Hgb Hct MCV MCH MCHC RDW Plt Count MPV Immature Gran % (Auto) Neut % (Auto) Lymph % (Auto) [place] % (Auto) Eos % (Auto) Baso % (Auto) Lymph # (Auto) [place] # (Auto) Eos # (Auto) Baso # (Auto) Abs Immat Gran (auto) Absolute Neuts (auto) Absolute Nucleated RBC Nucleated RBC % (auto) PT INR VBG pH VBG pCO2 VBG pO2 VBG HCO3 VBG O2 Saturation VBG Base Excess Sodium Potassium Chloride Carbon Dioxide Anion Gap BUN Creatinine Estim Creat Clear Calc Estimated GFR Random Glucose Calcium Phosphorus Magnesium Total Bilirubin AST ALT Alkaline Phosphatase Ammonia 60 H Total Protein Albumin Blood Type Antibody Screen Microbiology Microbiology Results: Microbiology 10/11/24 05:59 Blood - Venous Blood Culture - Final No growth after 5 days. 10/11/24 05:59 Blood - Venous Blood Culture - Final No growth after 5 days. 10/08/24 20:14 Blood - Venous Blood Culture - Final Streptococcus mitis/oralis 10/08/24 20:10 Blood - Venous Blood Culture - Final Streptococcus mitis/oralis Progress Note: A&P Assessment and plan (1) Bacteremia: Status: Acute (2) Hepatitis C virus infection: Status: Acute (3) Cirrhosis: Status: Acute (4) S/P TIPS (transjugular intrahepatic portosystemic shunt): Status: Acute Plan Assessment: 63-year-old gentleman with decompensated hep C cirrhosis now status post TIPS on 10/15/2024 Plan: Neuro: No acute issues. Cardiac: No acute issues. Pulmonary: No acute issues. Renal: No acute issues. Endo: No acute issues. GI: Decompensated hep C cirrhosis status post tips. Gastroenterology service care appreciated. ID: Streptococcal bacteremia, continue ceftriaxone. Infectious disease service care appreciated. Heme/Onc: No acute issues. Psych: No acute issues. Miscellaneous: No acute issues. Prophylaxis: Pneumatic compression Diet: Regular Quality Stroke Does the patient have a stroke diagnosis?: No VTE Prior VTE?: No VTE Risk Level:: Medical - moderate - high VTE Device Contraindication: N/A - Device Ordered VTE Drug Contraindication: Treatment Not Tolerated
--- NOTE | 2024-10-16 12:30 | PC.NURSE ---
Patient A&Ox4 Nigerian speaking, diet advanced to regular from clear liquids, patient was tolerating meals well. Using urinal, no BM, one dose of lactulose administered per order. Patient's O2 sats at 98-99% on RA. Transfer orders to [facility] room 357, report given to Hitesh at 1200. Patient transported in the bed. VSS, no pain reported.
--- NOTE | 2024-10-16 13:03 | P.DS_ITS ---
DS: Providers Provider Date of Service: 10/16/24 Date of admission: 10/08/24 22:57 Date of discharge: 10/16/24 Primary care physician: Leta Dick MD Consults: 10/08/24 22:57 Consult to Gastroenterology Routine Consulting Provider: Yajaira Antonio Reason for consultation: cirrhosis, portal and splenic vein thrombus, fevers 10/10/24 11:55 Consult to Infectious Diseases Routine Consulting Provider: [facility] [place] [facility] Reason for consultation: gm pos bacteremia Has provider been notified: No DS: Diagnosis Discharge Diagnosis (1) Bacteremia: Status: Acute (2) Hepatitis C virus infection: Status: Acute (3) Cirrhosis: Status: Acute (4) S/P TIPS (transjugular intrahepatic portosystemic shunt): Status: Acute (5) Thrombocytopenia: Status: Acute (6) Splenic vein thrombosis: Status: Acute (7) Esophageal varices: Status: Acute (8) Portal vein thrombosis: Status: Acute (9) Pancytopenia: Status: Acute (10) Sepsis: Status: Acute DS: Summary Hospital Course Hospital Course: From the history and physical by the admitting hospitalist, Lobo Whiting MD, 10/08/24: 63M PMH HCV cirrhosis decompensated with varices, portal and splenic vein thrombosis, chronic thrombocytopenia, hypertension, noncompliant with medications presented with abdominal pain. Patient states pain started suddenly on day of presentation centered around the umbilicus, constant, tender, a ssociated with fevers and chills, worse on ambulation. In ED, fever to 102, CT abdomen showed increased thrombus of the confluence of splenic and main portal veins, decompensated portal hypertension including new small ascites, distal esophageal wall thickening in paraesophageal edema, chronic finding of fat stranding around proximal inferior mesenteric artery, massive splenomegaly. 63yo M with decompensated HCV cirrhosis with varices, portal + splenic vein thrombi, chronic pancytopenia HTN; noncompliance with medications; presented with abd pain; admitted to the medical-surgical unit. Ultimately found to have Streptococcus mitis bacteremia. Hospital course by problem: HCV with decompensated cirrhosis - Imaging showed progression of portal vein and splenic vein thrombosis (75% stenosis of distal splenic vein and less than 50% stenosis of main portal vein) with worsening portal hypertension and varices. Cannot anticoagulate due to thrombocytopenia + large varices. Gastroenterology was consulted. IR performed a TIPS on 10/15/24, after which the patient was monitored in the ICU for 24 hours without issues. sepsis due to Streptococcus mitis bacteremia - Grew from blood cultures on 10/08/24. TTE negative for vegetation. Chest x- ray negative, UA unremarkable. CT A/P showed increased thrombus at the confluence of splenic and main portal veins, new mild ascites, and distal esophageal wall thickening, but no acute abscess. Sepsis physiology resolved; repeat BCx 10/11 negative. Infectious Disease was consulted and recommended 10 days of cephalosporin therapy. He was treated with ceftriaxone while inpatient and discharged on cefuroxime for 5 more days. HTN - Started on amlodipine and carvedilol, the latter of which is also for prevention of variceal bleeding. He was discharged home with instructions to follow up with Gastroenterology in 2 weeks and a repeat US will be done in 4-6 weeks. Time Attestation Discharge Coordination Time (in mins): 45 Quality: Safe Use of Opioids Does Pt have an Active Cancer Diagnosis on the Problem List?: No Quality: Stroke Does the patient have a stroke diagnosis?: No Physical Exam Vital Signs: Vital Signs: Last Vital Signs Temp 98.8 F 10/16/24 12:00 Pulse 75 10/16/24 12:00 Resp 18 10/16/24 12:00 BP 174/77 H 10/16/24 12:00 Pulse Ox 98 10/16/24 12:00 O2 Del Method Room Air 10/16/24 12:00 O2 Flow Rate 2.5 10/16/24 11:00 BMI result Body Mass Index 31.5 Gen: in no acute distress HEENT: sclera anicteric, moist mucus membranes Neck: supple Lungs: clear to auscultation bilaterally Heart: regular rate and rhythm, no murmurs Abd: soft, non-tender, non-distended Ext: no edema Skin: warm/well-perfused Neuro: alert and oriented x3, no focal findings, no asterixis Psych: appropriate affect DS: Data Data Completed and Pending Completed studies during hospitalization [Text1]: Laboratory Results WBC 4.6 X10*3/uL (4.8-10.8) L 10/16/24 05:27 RBC 4.18 X10*6/uL (4.60-5.80) L 10/16/24 05:27 Hgb 11.4 g/dl (14.0-18.0) L 10/16/24 05: Hct 35.4 % (42.0-52.0) L 10/16/24 05: MCV 84.7 fL (80.0-98.0) 10/16/24 05: MCH 27.3 pg (27.0-33.0) 10/16/24 05: MCHC 32.2 g/dl (31.0-36.0) 10/16/24 05: RDW 13.9 % (11.0-16.0) 10/16/24 05: Plt Count 33 X10*3/uL (160-400) L 10/16/24 05: MPV Not Reportable 10/16/24 05: Immature Gran % (Auto) 0.4 % (0.0-0.4) 10/15/24 18:02 Neut % (Auto) 78.4 % (45-73) H 10/15/24 18:02 Lymph % (Auto) 18.7 % (20-40) L 10/15/24 18:02 [place] % (Auto) 1.8 % (2-11) L 10/15/24 18:02 Eos % (Auto) 0.7 % (0-4) 10/15/24 18:02 Baso % (Auto) 0.0 % (0-2) 10/15/24 18:02 Lymph # (Auto) 0.5 X10*3/uL (1.2-4.9) L 10/15/24 18:02 [place] # (Auto) 0.1 X10*3/uL (0.1-1.2) 10/15/24 18:02 Eos # (Auto) 0.0 X10*3/uL (0.0-0.4) 10/15/24 18:02 Baso # (Auto) 0.0 X10*3/uL (0.0-0.2) 10/15/24 18:02 Abs Immat Gran (auto) 0.01 X10*3/uL (0.00-0.03) 10/15/24 18:02 Absolute Neuts (auto) 2.2 x10*3/uL (2.0-8.3) 10/15/24 18:02 Absolute Nucleated RBC 0.000 X10*3/uL (0.0-0.012) 10/16/24 05:27 Nucleated RBC % (auto) 0.0 /100WBC (0.0-0.2) 10/16/24 05:27 Smear Tech's Comments VERIFIED 10/15/24 05:27 Hold Purple Top SEE NOTE 10/15/24 05:27 PT 15.7 SEC (10.9-12.4) H 10/16/24 05:44 INR 1.3 (0.9-1.1) H 10/16/24 05:44 VBG pH 7.52 (7.32-7.43) H 10/16/24 05:50 VBG pCO2 28 mmHg 10/16/24 05:50 VBG pO2 54 mmHg 10/16/24 05:50 VBG HCO3 23 mmol/L (22-26) 10/16/24 05:50 VBG O2 Saturation 87.0 % 10/16/24 05:50 VBG Base Excess 2.1 mmol/L 10/16/24 05:50 Sodium 137 mmol/L (135-145) 10/16/24 05:44 Potassium 4.5 mmol/L (3.3-5.1) 10/16/24 05:44 Chloride 112 mmol/L (96-108) H 10/16/24 05:44 Carbon Dioxide 20 mmol/L (22-29) L 10/16/24 05:44 Anion Gap 10 (12-20) L 10/16/24 05:44 BUN 13 mg/dL (9-16) 10/16/24 05:44 Creatinine 0.69 mg/dL (0.5-1.4) 10/16/24 05:44 Estim Creat Clear Calc 131.3 10/16/24 05:44 Estimated GFR > 60 10/16/24 05:44 Random Glucose 102 mg/dL (60-115) 10/16/24 05:44 Lactic Acid 2.6 mmol/L (0.5-2.0) H* 10/08/24 20:14 Lactic Acid F/U @ 2Hr 1.8 mmol/L (0.5-2.0) 10/08/24 22:40 Calcium 8.7 mg/dL (8.4-10.2) 10/16/24 05:44 Phosphorus 2.4 mg/dL (2.7-4.5) L 10/16/24 05:44 Magnesium 2.0 mg/dL (1.6-2.6) 10/16/24 05:44 Total Bilirubin 1.0 mg/dL (0.0-1.0) 10/16/24 05:44 Direct Bilirubin 0.5 mg/dL (0.0-0.5) 10/10/24 10:04 AST 46 U/L (5-37) H 10/16/24 05:44 ALT 31 U/L (0-40) 10/16/24 05:44 Alkaline Phosphatase 111 U/L (39-117) 10/16/24 05:44 Ammonia 60 umol/L (13-55) H 10/16/24 11:00 Troponin I High Sens 7.3 ng/L (<3.5-35.0) 10/08/24 22:20 Total Protein 7.1 g/dL (6.5-8.0) 10/16/24 05:44 Albumin 3.0 g/dL (3.5-5.0) L 10/16/24 05:44 Lipase 26 U/L (8-78) 10/08/24 20:02 Urine Color Yellow 10/08/24 23:05 Urine Appearance Clear 10/08/24 23:05 Urine pH 8.5 (5.0-9.0) 10/08/24 23:05 Ur Specific [place] >= 1.030 (1.005-1.025) H 10/08/24 23:05 Urine Protein Negative mg/dL (Neg-Trace) 10/08/24 23:05 Urine Glucose (UA) Negative mg/dL (Negative) 10/08/24 23:05 Urine Ketones Negative mg/dL (Negative) 10/08/24 23:05 Urine Blood Negative (Negative) 10/08/24 23:05 Urine Nitrite Negative (Negative) 10/08/24 23:05 Ur Leukocyte Esterase Negative (Negative) 10/08/24 23:05 Urine RBC 0-2 /HPF (0-2) 10/08/24 23:05 Urine WBC 0-5 /HPF (0-5) 10/08/24 23:05 Ur Squamous Epith Cells 0-2 /HPF (0-2) 10/08/24 23:05 Urine Bacteria None Seen (None Seen) 10/08/24 23:05 Hyaline Casts 0-2 /LPF (0-2) 10/08/24 23:05 Vancomycin Trough 9.7 mcg/mL (10.0-20.0) L 10/14/24 06:50 Random Vancomycin 15.0 mcg/mL (15-20) 10/11/24 13:53 Ethyl Alcohol < 10 mg/dL 10/08/24 20:03 Influenza Type A (PCR) NEGATIVE (Negative) 10/08/24 20:03 Influenza Type B (PCR) NEGATIVE (Negative) 10/08/24 20:03 RSV RNA Qual (PCR) NEGATIVE (Negative) 10/08/24 20:03 SARS-CoV-2 RNA (RT-PCR) NEGATIVE (Negative) 10/08/24 20:03 S. pyogenes GrpA JUSTIN Negative (Negative) 10/08/24 20:02 Blood Type O Negative 10/13/24 09:46 Antibody Screen NEGATIVE 10/13/24 09:46 Impressions Imaging TIPS 10/15/24 13:30 IMPRESSION: Successful placement of TIPS stent as detailed above. PLAN: Admit to ICU for overnight observation. Follow-up TIPS ultrasound and clinic visit to be arranged after discharge Electronically signed by: Abraham Ness MD 10/15/2024 04:30 PM [facility] Discharge Plan Discharge Anticipated Discharge Date/Time: 10/16/24 12:53 Patient Disposition: Home, Self-Care Discharge Diagnosis: decompensated cirrhosis portal vein and splenic vein thrombosis portal hypertension esophageal varices sepsis due to Streptococcus mitis bacteremia hypertension Referrals: Leta Soto MD [Primary Care Provider] - 1 Week Yajaira Antonio MD [Physician] - 2 Weeks Discharge Medications: New amlodipine 5 mg Tablet 5 mg PO DAILY Qty: 30 0RF Protocol: Hold for SBP< HOLD for SBP < : 90 carvedilol 3.125 mg Tablet 3.125 mg PO BID Qty: 60 0RF Protocol: Hold for SBP/HR < HOLD for SBP < : 90 HOLD for HR < : 60 lactulose 10 gram/15 mL solution 20 g PO TID Qty: 3000 0RF cefuroxime axetil 500 mg tablet 500 mg PO BID Qty: 10 0RF Discharge Orders: Discharge Order (Routine); Ordered 10/16/24 Ordered By: Getachew Vega Diet: Low salt diet Activity on Discharge: As tolerated Stand Alone Forms: Patient Portal Discharge page Print Language: Khmer Care Plan Goals: liver health Health Concerns: decompensated cirrhosis portal vein and splenic vein thrombosis portal hypertension esophageal varices sepsis due to Streptococcus mitis bacteremia hypertension Plan of Treatment: cefuroxime 500 mg twice daily for 5 days lactulose 30 mL 2-3 times a day to achieve 2-3 soft bowel movements/day repeat US of the liver in 4-6 weeks follow up with [facility] [place] in 2-3 weeks take amlodipine 5 mg daily plus carvedilol 3.125 mg twice daily Please follow up with your primary care doctor within 1 week. Return to the hospital if you experience recurrent or worsening symptoms. Assessment: See Discharge Summary.
[2024-10-16] MEDS: cefTRIAXone sodium 1 GM VIAL IVPUSH (13:09)
--- NOTE | 2024-10-16 14:26 | MHC.CM.PN ---
DC HOME SELF CARE VIA PRIVATE TRTANSPORT.
== END 2024-10-16 14:23 | disposition home or self-care (01) | DRG 710 ==
LOC: HO.ED 22:34 → HO.EDOVER 23:00 → HO.S3 10-09 13:32 → HO.ICU 10-15 16:30 → HO.S3 10-16 11:44
PROVIDERS: Hospitalist; Internal Medicine Pulmonary Disease; Nurse Practitioner Acute Care; Physician Assistant Medical; Physician Assistant Surgical; Student in an Organized Health Care Education/Training Program; Admitting Provider Internal Medicine; Emergency Provider Emergency Medicine Emergency Medical Services; PCP Student in an Organized Health Care Education/Training Program; Visit Provider Family Medicine
PROC: 06183J4 Bypass Portal Vein to Hepatic Vein with Synthetic Substitute, Percutaneous Approach (ICD-10-PCS; principal; 2024-10-15 13:00)
PROC: 06183J4 Bypass Portal Vein to Hepatic Vein with Synthetic Substitute, Percutaneous Approach (ICD-10-PCS; 2024-10-15 13:00)
DX: A40.8 Other streptococcal sepsis (principal); I81 Portal vein thrombosis; D61.818 Other pancytopenia; I82.890 Acute embolism and thrombosis of other specified veins; I85.10 Secondary esophageal varices without bleeding; K74.69 Other cirrhosis of liver; K76.6 Portal hypertension; B18.2 Chronic viral hepatitis C; I10 Essential (primary) hypertension; E87.5 Hyperkalemia; K12.30 Oral mucositis (ulcerative), unspecified; R18.8 Other ascites; B95.4 Other streptococcus as the cause of diseases classified elsewhere; F17.210 Nicotine dependence, cigarettes, uncomplicated; Z20.822 Contact with and (suspected) exposure to COVID-19; Z91.148 Patient's other noncompliance with medication regimen for other reason; Z71.6 Tobacco abuse counseling; Z59.01 Sheltered homelessness; Z79.899 Other long term (current) drug therapy
CPT/HCPCS: 0241U; 36415; 37182; 71045; 74177; 76705; 80048; 80053; 80076; 80202; 80307; 81001; 82140; 82565; 82803; 83605; 83690; 83735; 84100; 84484; 85025; 85027; 85610; 86850; 86900; 86901; 87040; 87077; 87186; 87205; 87651; 93005; 93306; 99285; C1725; C1769; C1874; C1887; C1894; J0131; J0696; J2270; J2598; J3370; J3371; P9073; Q9957

== ENCOUNTER → 2024-10-08 19:41 | Outpatient (BNV) | payer MEDICAID, SELFPAY | PROVIDERS: Admitting Provider Internal Medicine; Emergency Provider Emergency Medicine Emergency Medical Services; PCP Student in an Organized Health Care Education/Training Program; Visit Provider Internal Medicine | DX: I10 Essential (primary) hypertension (principal) | CPT/HCPCS: 93010 ==

== ENCOUNTER → 2024-10-08 20:03 | Outpatient (BNV) | payer MEDICAID, SELFPAY | PROVIDERS: Emergency Provider Emergency Medicine Emergency Medical Services; PCP Student in an Organized Health Care Education/Training Program; Visit Provider Radiology Diagnostic Radiology | DX: I10 Essential (primary) hypertension (principal); I81 Portal vein thrombosis; R18.8 Other ascites | CPT/HCPCS: 71045; 74177 ==

== ENCOUNTER 2024-10-08 22:57 | Outpatient (BNV) | payer MEDICAID, SELFPAY | END 2024-10-13 07:00 | PROVIDERS: Admitting Provider Internal Medicine; Emergency Provider Emergency Medicine Emergency Medical Services; PCP Student in an Organized Health Care Education/Training Program; Visit Provider Internal Medicine Cardiovascular Disease | DX: I51.7 Cardiomegaly (principal) | CPT/HCPCS: 93306 ==

== ENCOUNTER 2024-10-08 22:57 | Outpatient (BNV) | payer MEDICAID, SELFPAY | END 2024-10-09 09:40 | PROVIDERS: Admitting Provider Internal Medicine; Emergency Provider Emergency Medicine Emergency Medical Services; PCP Student in an Organized Health Care Education/Training Program; Visit Provider Radiology Diagnostic Radiology | DX: R18.8 Other ascites (principal) | CPT/HCPCS: 76705 ==

== ENCOUNTER 2024-10-08 22:57 | Outpatient (BNV) | payer MEDICAID, SELFPAY | END 2024-10-15 13:30 | PROVIDERS: Admitting Provider Internal Medicine; Emergency Provider Emergency Medicine Emergency Medical Services; PCP Student in an Organized Health Care Education/Training Program; Visit Provider Student in an Organized Health Care Education/Training Program | DX: K74.60 Unspecified cirrhosis of liver (principal) | CPT/HCPCS: 37182 ==

== ENCOUNTER → 2024-10-08 22:57 | Outpatient (BNV) | payer MEDICAID, SELFPAY | PROVIDERS: Admitting Provider Internal Medicine; Emergency Provider Emergency Medicine Emergency Medical Services; PCP Student in an Organized Health Care Education/Training Program; Visit Provider Internal Medicine | DX: D69.6 Thrombocytopenia, unspecified (principal) | CPT/HCPCS: 99223 ==

== ENCOUNTER → 2024-10-08 22:57 | Outpatient (BNV) | payer MEDICAID, SELFPAY | PROVIDERS: Admitting Provider Internal Medicine; Emergency Provider Emergency Medicine Emergency Medical Services; PCP Student in an Organized Health Care Education/Training Program; Visit Provider Internal Medicine | DX: R78.81 Bacteremia (principal) | CPT/HCPCS: 99222 ==

== ENCOUNTER → 2024-10-08 22:57 | Outpatient (BNV) | payer MEDICAID, SELFPAY | PROVIDERS: Admitting Provider Internal Medicine; Emergency Provider Emergency Medicine Emergency Medical Services; PCP Student in an Organized Health Care Education/Training Program; Visit Provider Internal Medicine | DX: K74.60 Unspecified cirrhosis of liver (principal); R18.8 Other ascites; A41.9 Sepsis, unspecified organism; R10.11 Right upper quadrant pain; I81 Portal vein thrombosis; I82.890 Acute embolism and thrombosis of other specified veins | CPT/HCPCS: 99223 ==

== ENCOUNTER 2024-10-28 16:31 | Emergency (ER) | payer MEDICAID, SELFPAY ==
--- NOTE | 2024-10-28 | ECG_ITS ---
Test Reason : altered mental Blood Pressure : */* mmHG Vent. Rate : 56 BPM Atrial Rate : 56 BPM P-R Int : 144 ms QRS Dur : 88 ms QT Int : 488 ms P-R-T Axes : 17 10 48 degrees QTcB Int : 470 ms Sinus bradycardia Nonspecific T wave abnormality Prolonged QT Abnormal ECG When compared with ECG of 08-Oct-2024 19:54, Vent. rate has decreased by 39 bpm Nonspecific T wave abnormality now evident in Anterior leads QT has lengthened Referred By: Generic ED Physician Electronically Signed By: ЕКАТЕРИНА ZARAGOZA
--- NOTE | ~2024-10-28 | XR_ITS ---
CLINICAL HISTORY: chest pain 2 view chest x-ray Comparison: CR - XR CHEST 1V - 10/08/24 20:45 EST Findings: The lungs are clear. Heart size is normal. No acute fracture. IMPRESSION: 1. No acute findings. This document has been electronically signed by: Larissa Roth MD on 10/28/2024 18:02:18
--- NOTE | ~2024-10-28 | CT_ITS ---
CLINICAL HISTORY: RUQ pain TTP, hyperbilirubinemia CT abdomen and pelvis with contrast Comparison: CT/SR - CT ABDOMEN PELVIS W IV CON - 10/08/24 20:35 EST Findings: No consolidation or effusion. Wall thickening of distal thoracic esophagus have decreased. Liver is small and nodular consistent with cirrhosis. Interval placement of a shunt in the liver extending from the IVC into the portal vein. Interval decrease in size of portal vein and of recanalized umbilical vein. Stable thrombus at the confluence of splenic vein and portal vein. Stable splenomegaly. Improved distal esophageal varices and venous collaterals in upper abdomen. Resolved mild ascites. Gallbladder, adrenal glands and pancreas within normal limits. No bowel obstruction, pneumoperitoneum, or pneumatosis. Appendix is unremarkable. Atherosclerotic vascular disease with no aneurysm of abdominal aorta. Improved stranding around the inferior mesenteric artery. Small umbilical hernia containing fat and recanalized small umbilical vein. Cwzd-ie-dtluuqxv colonic stool and moderate rectal stool. Prostate and urinary bladder within limits. No acute fracture. Degenerative changes most significantly involving L5-S1. Mild degenerative changes in bilateral hips. IMPRESSION: 1. Interval hepatic shunt with resolved ascites, improved distal esophageal varices, upper abdominal collaterals and decrease in size of portal vein and recanalized umbilical vein. 2. Stable thrombus at the confluence of portal vein and splenic vein. 3. Gcbd-zb-wdgozrsi colonic stool and moderate rectal stool. 4. Additional stable findings as described. This document has been electronically signed by: Daphne Jensen MD on 10/28/2024 21:08:32
[2024-10-28 16:47] VITALS: BP 170/74; PULSE 60; O2SAT 99
[2024-10-28 16:54] VITALS: BP 162/60; PULSE 61; RESP 18; TEMP 36.5; O2SAT 100; BMI 23.7
[2024-10-28 17:02] VITALS: BP 162/60; PULSE 61; RESP 18; TEMP 36.5; O2SAT 100
--- NOTE | 2024-10-28 17:10 | PC.NURSE ---
Pt comes to ED today via EMS from [place] where he was having sharp stabbing chest pain. Pt is SSO and a poor historian. He reports pain is 10/10. Pt is alert to person and location; he is unable to state date or year. EKG and lab work completed--results pending. Pt placed on cardiac monitoring. Awaiting provider/orders.
[2024-10-28 17:15] LABS: MANUAL DIFF FLAG NO
[2024-10-28 17:16] LABS: Basophils Percent Auto 0.4 % (0-2); Eosinophils Percent Auto 0.8 % (0-4); Hematocrit 39.1 % (42.0-52.0); Hemoglobin 13.1 g/dl (14.0-18.0); Imm Gran Abs Auto 0.01 X10*3/uL (0.00-0.03); Imm Gran Pct Auto 0.2 % (0.0-0.4); Mean Corpuscular HGB Conc 33.5 g/dl (31.0-36.0); Mean Corpuscular Hemoglobin 27.8 pg (27.0-33.0); Mean Corpuscular Volume 82.8 fL (80.0-98.0); Mean Platelet Volume 11.4 fL (9.4-12.4); Monocytes Absolute Auto 0.4 X10*3/uL (0.1-1.2); Monocytes Percent Auto 7.1 % (2-11); Neutrophils Absolute Auto 3.7 x10*3/uL (2.0-8.3); Neutrophils Percent Auto 72.5 % (45-73); Red Blood Count 4.72 X10*6/uL (4.60-5.80); Red Cell Distribution Width 16.1 % (11.0-16.0)
[2024-10-28 17:20] LABS: Platelet Count 42 X10*3/uL (160-400)
--- NOTE | 2024-10-28 17:23 | ED.CHESTPAIN ---
HPI - Chest Pain General Chief Complaint: Chest Pain Stated Complaint: sharp chest pains 10/10 [place] speaking only Time Seen by Provider: 10/28/24 16:39 Source: patient and EMS Mode of arrival: EMS Limitations: no limitations History of Present Illness ED Provider: quincy rodrigez NP HPI narrative: Patient is a 63-year-old male who presents to the emergency department via EMS for evaluation. He reports while he was walking to the gas station today as he got close he began developing chest tightness and dizziness. He states that the gas inspector had asked him if he was okay, and he asked them to call an ambulance. He states that when it started it was very sharp and stabbing with a tightness 10/10. Currently he states it is better but not completely resolved. He admits to a productive cough recently. Is very difficult to get him to keep a clear history with his current complaints, he keeps reverting back and describing his most recent diagnoses from his recent hospital visit despite asking him questions in regards to symptoms today he continues to report that he has a liver condition and bleeding . When asked he states he has been compliant with all his medications. He currently denies headache, vision changes, neck pain, abdominal pain, nausea, vomiting, numbness or tingling of his extremities. Related Data Home Medications ?Medication ?Instructions ?Recorded ?Confirmed amlodipine 10 mg tablet 10 mg PO QAM 10/22/24 10/22/24 ascorbic acid (vitamin C) 250 mg 250 mg PO DAILY 10/22/24 10/22/24 tablet (Vitamin C) ferrous sulfate 65 mg PO DAILY 10/22/24 10/22/24 furosemide 20 mg tablet 20 mg PO DAILY 10/22/24 10/22/24 Previous Rx's ?Medication ?Instructions ?Recorded carvedilol 3.125 mg tablet 3.125 mg PO BID #60 tabs 10/16/24 lactulose 10 gram/15 mL oral 20 g (30 mL) PO TID #3,000 mL 10/16/24 solution Allergies Allergy/AdvReac Type Severity Reaction Status Date / Time aspirin AdvReac Severe stomach Verified 10/28/24 16:59 bleeding NSAIDS (Non-Steroidal AdvReac Severe liver Verified 10/28/24 16:59 Anti-Inflamma concerns Review of Systems Review of Systems: Yes all other systems are reviewed and are negative PMFSH Past Medical History Attestation statement: The following information was validated with the patient. Source: old records reviewed Medical History Splenic vein thrombosis Portal vein thrombosis Sepsis Cirrhosis of liver with ascites Abdominal pain Thrombocytopenia Cirrhosis Pancytopenia Cirrhosis Hepatitis C virus infection Esophageal varices Pancytopenia Iron deficiency anemia Cirrhosis Hepatitis C HBP (high blood pressure) Surgical History S/P TIPS (transjugular intrahepatic portosystemic shunt) H/O left inguinal hernia repair H/O eye surgery History of esophagogastroduodenoscopy (EGD) H/O colonoscopy Family History Family History Maternal Grandmother Breast CA Uterus cancer Mother Primary lung cancer of unknown cell type Social History Social History Household Members: None Household Members Other:: assisted Housing: Homeless Housing Other:: assisted Are you a primary director career to a significant other at home: No Do you presently have visiting nurse or other home services: No Comment: pt refused all high fall risk interventions Patient Tobacco Use Status: Current everyday Tobacco user Tobacco use type: Cigarette Cigarette Packs Per Day: 1 Cigarettes Per Day: 5 Years Smoked: 30 Smoked in Last 30 Days: No Second Hand Smoke Exposure: No Use of substances other than those prescribed or required for medical reasons: No Substance Use Type: Crack/Cocaine and Marijuana Advance Directives: Yes Advance Directives on File: Yes Advance Directives Date on File: 04/02/24 Do you have a plan to hurt others: No Plan service: No Current occupational status: retired Physical Exam Vital Signs: Vital Signs: Last Vital Signs Temp 97.6 F 10/28/24 18:00 Pulse 60 10/28/24 18:00 Resp 20 10/28/24 18:00 BP 121/55 L 10/28/24 18:00 Pulse Ox 99 10/28/24 18:00 O2 Del Method Room Air 10/28/24 18:00 BMI result Body Mass Index 23.7 Appearance: Alert.?Oriented to person, place and time. No acute distress.?Normal affect. Eyes: Pupils on the left round and reactive to light.? Glass eye on the right. ENT: Pharynx normal.?? Neck: Normal inspection.? Neck supple.??No JVD. CVS: Heart sounds normal. Normal heart rate and rhythm.? Pulses normal.?? Respiratory: No respiratory distress.? Lung sounds clear to auscultation bilaterally?? Abdomen: Soft right upper quadrant tenderness upon palpation. Normoactive bowel sounds Skin: Skin warm and dry.? Normal skin color.? ?? Extremities: No lower extremity edema.? No calf ttp? Neuro: Moves all extremities spontaneously. Sensation intact bilaterally. No focal neuro deficits. Ambulates with normal steady gait. Course Reevaluation(s) Reevaluation #1: Evaluation bilirubin higher than normal, otherwise LFTs and lipase are consistent with prior. He does have right upper quadrant tenderness on evaluation. Reviewed this case with my attending Dr. Rome, given his poor historian will obtain CT of the abdomen and pelvis to exclude acute pathology Reevaluation #2: CT of the on abdomen and pelvis without acute findings no acute hepatobiliary etiology. At this time abdominal examination is benign. States chest pain has resolved. Stable for discharge outpatient follow-up with PCP with strict return precautions. Medications Administered Discontinued Medications Generic Name Dose Route Start Last Admin Trade Name Freq PRN Reason Stop Dose Admin Iohexol 100 ml 10/28/24 20:30 10/28/24 20:30 Iohexol 350 Mg/Ml 100 Ml Infus..Btl IV 10/28/24 20:31 85 ml ONCE ONE Administration Medical Decision Making Medical Decision Making [facility] Narrative: Patient is a 63-year-old male with past medical history of hypertension, decompensated hepatitis-C, cirrhosis, esophageal varices, portal and splenic vein thrombosis, pancytopenia, with recent hospitalization 10/08/2024-10/16/2024 s/p tips (not anticoagulated due to thrombocytopenia and large varices), Streptococcus bacteremia with negative TTE discharged home with 5 additional days of oral antibiotic, as well as starting on lactulose, amlodipine, carvedilol. When asked he can not tell me exactly which medications he is taking he describes them by size pills. He presents today for evaluation of chest tightness and dizziness that started after walking to the gas station today and has improved greatly since his arrival to the emergency department. No evidence of volume overload or shock on exam. No recent trauma or injury, no tracheal deviation, unlikely tension pneumothorax. On exam he does have right upper quadrant tenderness upon palpation, negative Kellogg sign, possibly secondary to his chronic cirrhosis versus acute cholecystitis, choledocholithiasis, no fever to suggest acute cholangitis. Will obtain CBC to evaluate for leukocytosis/ anemia, CMP and lipase to evaluate for abnormal electrolytes /abnormal renal function/ abnormal hepatic/biliary function, EKG and troponin to evaluate for ischemia/ACS. Chest x-ray to evaluate for consolidation/ infiltrate/ mass/ pulmonary congestion Differential Diagnosis Differential Diagnoses: The differential diagnosis associated with the presentation includes (See narrative above) Admission/Observation Consideration of admission/observation: Escalation of care including admission/observation considered (See narrative above and course narrative for further detail) Lab Data MDM Lab Attestation statement: I reviewed the patient's lab results. Normocytic anemia that does not meet transfusion criteria, chronic thrombocytopenia; 42,000. No significant electrolyte derangement. No [place]. Elevated AST/alk phos, T bili 2.4 which is higher than baseline pending direct bili. Normal lipase. High sensitive troponin within normal range. BNP within normal range. Viral serologies are negative. 10/28/24 17:09 10/28/24 17:09 Labs: Lab Results 10/28/24 10/28/24 Range/Units 17:09 19:29 WBC 5.0 (4.8-10.8) X10*3/uL RBC 4.72 (4.60-5.80) X10*6/uL Hgb 13.1 L (14.0-18.0) g/dl Hct 39.1 L (42.0-52.0) % MCV 82.8 (80.0-98.0) fL MCH 27.8 (27.0-33.0) pg MCHC 33.5 (31.0-36.0) g/dl RDW 16.1 H (11.0-16.0) % Plt Count 42 L D (160-400) X10*3/uL MPV 11.4 (9.4-12.4) fL Immature Gran % (Auto) 0.2 (0.0-0.4) % Neut % (Auto) 72.5 (45-73) % Lymph % (Auto) 19.0 L (20-40) % [place] % (Auto) 7.1 (2-11) % Eos % (Auto) 0.8 (0-4) % Baso % (Auto) 0.4 (0-2) % Lymph # (Auto) 1.0 L (1.2-4.9) X10*3/uL [place] # (Auto) 0.4 (0.1-1.2) X10*3/uL Eos # (Auto) 0.0 (0.0-0.4) X10*3/uL Baso # (Auto) 0.0 (0.0-0.2) X10*3/uL Abs Immat Gran (auto) 0.01 (0.00-0.03) X10*3/uL Absolute Neuts (auto) 3.7 (2.0-8.3) x10*3/uL Absolute Nucleated RBC 0.000 (0.0-0.012) X10*3/uL Nucleated RBC % (auto) 0.0 (0.0-0.2) /100WBC PT 15.8 H (10.9-12.4) SEC INR 1.4 H (0.9-1.1) Sodium 143 (135-145) mmol/L Potassium 4.3 (3.3-5.1) mmol/L Chloride 114 H (96-108) mmol/L Carbon Dioxide 23 (22-29) mmol/L Anion Gap 10 L (12-20) BUN 14 (9-16) mg/dL Creatinine 0.70 (0.5-1.4) mg/dL Estim Creat Clear Calc 116.5 Estimated GFR > 60 Random Glucose 90 (60-115) mg/dL Calcium 9.0 (8.4-10.2) mg/dL Magnesium 2.0 (1.6-2.6) mg/dL Total Bilirubin 2.4 H (0.0-1.0) mg/dL Direct Bilirubin 0.9 H (0.0-0.5) mg/dL AST 50 H (5-37) U/L ALT 32 (0-40) U/L Alkaline Phosphatase 161 H (39-117) U/L Troponin I High Sens 5.3 5.2 (<3.5-35.0) ng/L B-Natriuretic Peptide 50 (<100) pg/mL Total Protein 7.6 (6.5-8.0) g/dL Albumin 3.4 L (3.5-5.0) g/dL Lipase 29 (8-78) U/L Influenza Type A (PCR) NEGATIVE (Negative) Influenza Type B (PCR) NEGATIVE (Negative) RSV RNA Qual (PCR) NEGATIVE (Negative) SARS-CoV-2 RNA (RT-PCR) NEGATIVE (Negative) Independent Interpretation I performed an independent interpretation of an: EKG (Sinus bradycardia with ventricular rate of 56, QTC prolonged 470 MS, T-wave inversion V1-V2, no ST elevation) and Plain X-Ray (No consolidation or infiltrate, no pleural effusion) Radiology Impression Discussion of test interpretation with radiology: I have reviewed the radiologist's reading. Radiologist Impression: 2 view chest x-ray Comparison: CR - XR CHEST 1V - 10/08/24 20:45 EST Findings: The lungs are clear. Heart size is normal. No acute fracture. IMPRESSION: 1. No acute findings. CT abdomen and pelvis with contrast Comparison: CT/SR - CT ABDOMEN PELVIS W IV CON - 10/08/24 20:35 EST Findings: No consolidation or effusion. Wall thickening of distal thoracic esophagus have decreased. Liver is small and nodular consistent with cirrhosis. Interval placement of a shunt in the liver extending from the IVC into the portal vein. Interval decrease in size of portal vein and of recanalized umbilical vein. Stable thrombus at the confluence of splenic vein and portal vein. Stable splenomegaly. Improved distal esophageal varices and venous collaterals in upper abdomen. Resolved mild ascites. Gallbladder, adrenal glands and pancreas within normal limits. No bowel obstruction, pneumoperitoneum, or pneumatosis. Appendix is unremarkable. Atherosclerotic vascular disease with no aneurysm of abdominal aorta. Improved stranding around the inferior mesenteric artery. Small umbilical hernia containing fat and recanalized small umbilical vein. Wvoz-jz-nfuzoxon colonic stool and moderate rectal stool. Prostate and urinary bladder within limits. No acute fracture. Degenerative changes most significantly involving L5-S1. Mild degenerative changes in bilateral hips. IMPRESSION: 1. Interval hepatic shunt with resolved ascites, improved distal esophageal varices, upper abdominal collaterals and decrease in size of portal vein and recanalized umbilical vein. 2. Stable thrombus at the confluence of portal vein and splenic vein. 3. [id number]-[id number] colonic stool and moderate rectal stool. 4. Additional stable findings as described. Discharge Plan Discharge Clinical Impression: Chest pain Patient Disposition: Home, Self-Care Instructions: Chest Pain (ED) Additional Instructions: You were evaluated in the emergency department today or chest pain which had improved. EKG did not show signs of a heart attack, as well as troponin, which is a blood marker which is elevated in times of a heart attack, that was normal twice. This is very reassuring. Your test for COVID, flu, RSV were all negative. Your blood work is consistent with prior levels and without any new concern. Chest x-ray does not show any evidence of pneumonia or abnormality. Please contact your primary care doctor to arrange for a follow-up visit within the next 1-3 days. You may return back to emergency department any new or worsening symptoms or concerns Prescriptions: No Action carvedilol 3.125 mg Tablet 3.125 mg PO BID Qty: 60 0RF Protocol: Hold for SBP/HR < HOLD for SBP < : 90 HOLD for HR < : 60 lactulose 10 gram/15 mL solution 20 g PO TID Qty: 3000 0RF furosemide 20 mg Tablet 20 mg PO DAILY ferrous sulfate 65 mg PO DAILY amlodipine 10 mg tablet 10 mg PO QAM ascorbic acid (vitamin C) [Vitamin C] 250 mg Tablet 250 mg PO DAILY Referrals: Leta Soto MD [Primary Care Provider] - Print Language: Icelandic
[2024-10-28 17:27] LABS: INTERNATIONAL NORM RATIO 1.4 (0.9-1.1); Prothrombin Time 15.8 SEC (10.9-12.4)
[2024-10-28 17:30] LABS: Alanine Aminotransferase 32 U/L (0-40); Albumin Level 3.4 g/dL (3.5-5.0); Alkaline Phosphatase 161 U/L (39-117); Anion Gap 10 (12-20); Aspartate Amino Transferase 50 U/L (5-37); Bilirubin Total 2.4 mg/dL (0.0-1.0); Blood Urea Nitrogen 14 mg/dL (9-16); Carbon Dioxide 23 mmol/L (22-29); Chloride 114 mmol/L (96-108); Creatinine Clr Calc Pharmacy 116.5; Estimated Glomerular Filt Rate > 60; Glucose Random 90 mg/dL (60-115); Lipase 29 U/L (8-78); Potassium 4.3 mmol/L (3.3-5.1); Sodium 143 mmol/L (135-145); Total Protein 7.6 g/dL (6.5-8.0)
[2024-10-28 17:33] LABS: B Type Natriuretic Peptide 50 pg/mL (<100)
[2024-10-28 17:35] LABS: Troponin-I High Sensitivity 5.3 ng/L (<3.5-35.0)
[2024-10-28 17:51] LABS: Influenza A PCR NEGATIVE (Negative); Influenza B PCR NEGATIVE (Negative); Resp Syncy Virus RNA Qual PCR NEGATIVE (Negative); SARS COV2 PCR INHOUSE NEGATIVE (Negative)
[2024-10-28 18:00] VITALS: BP 121/55; PULSE 60; RESP 20; TEMP 36.4; O2SAT 99
[2024-10-28 18:40] LABS: Bilirubin Direct 0.9 mg/dL (0.0-0.5)
[2024-10-28 19:54] LABS: Troponin-I High Sensitivity 5.2 ng/L (<3.5-35.0)
[2024-10-28] MEDS: iohexoL 350 MG/ML 100 ML INFUS..BTL IV (20:30)
--- NOTE | 2024-10-28 21:21 | PC.NURSE ---
Lupe called for an update, awaiting CT results, provider aware.
[2024-10-28 22:43] VITALS: BP 138/58; PULSE 59; RESP 16; TEMP 36.4; O2SAT 98
--- NOTE | 2024-10-28 22:45 | PC.NURSE ---
Reviewed discharge instruction with pt, pt verbalized understanding, no sign of distress. Pt discharge with family
[2024-10-28 22:47] VITALS: BP 138/58; PULSE 59; RESP 16; TEMP 36.4; O2SAT 98
== END 2024-10-28 22:48 | disposition home or self-care (01) ==
PROVIDERS: Nurse Practitioner Family; Emergency Provider Emergency Medicine; PCP Student in an Organized Health Care Education/Training Program
DX: R07.9 Chest pain, unspecified (principal); R10.11 Right upper quadrant pain; R42 Dizziness and giddiness; R05.9 Cough, unspecified; Z03.818 Encounter for observation for suspected exposure to other biological agents ruled out; I10 Essential (primary) hypertension; K74.60 Unspecified cirrhosis of liver; B19.20 Unspecified viral hepatitis C without hepatic coma; D50.9 Iron deficiency anemia, unspecified; F17.210 Nicotine dependence, cigarettes, uncomplicated; Z79.899 Other long term (current) drug therapy
CPT/HCPCS: 0241U; 36415; 71046; 74177; 80053; 82248; 83690; 83735; 83880; 84484; 85025; 85610; 93005; 99284; 99285; Q9967

== ENCOUNTER → 2024-10-28 16:39 | Outpatient (BNV) | payer MEDICAID, SELFPAY | PROVIDERS: Emergency Provider Emergency Medicine; PCP Student in an Organized Health Care Education/Training Program; Visit Provider Internal Medicine | DX: R00.1 Bradycardia, unspecified (principal) | CPT/HCPCS: 93010 ==

== ENCOUNTER → 2024-10-28 16:42 | Outpatient (BNV) | payer MEDICAID, SELFPAY | PROVIDERS: Emergency Provider Emergency Medicine; PCP Student in an Organized Health Care Education/Training Program; Visit Provider Radiology Diagnostic Radiology | DX: K76.5 Hepatic veno-occlusive disease (principal); I85.00 Esophageal varices without bleeding; I81 Portal vein thrombosis; K59.00 Constipation, unspecified; R07.9 Chest pain, unspecified | CPT/HCPCS: 71046; 74177 ==

== ENCOUNTER 2024-10-31 12:48 | Outpatient (AMB) | payer MEDICAID, SELFPAY ==
--- NOTE | 2024-10-31 12:54 | MHC.OFFVIS ---
Vital Signs 10/31/24 12:56 Height 5 ft 11 in Weight 205 lb 0.478 oz BMI 28.6 BP 143/65 H Blood Pressure Location Lt brachial Position Sitting Pulse 74 Intake Visit Reasons: Cirrhosis 2 wks f/u Intake Note: Adelso presents in the office as a 2 week follow up. CC: Director Of Housing And Energy Services Required: Yes Director Of Housing And Energy Services Name: granddaughter Allergies aspirin Adverse Reaction (Severe, Verified 10/31/24 12:57) stomach bleeding NSAIDS (Non-Steroidal Anti-Inflamma Adverse Reaction (Severe, Verified 10/31/24 12:57) liver concerns HPI Comments Details: This is a 62y.o M who is here for follow up for HCV related liver disease. 06/04/23: Seen with foreign language interpreter. Pt was being seen by Teresita for pancytopenia and work up revealed chronic liver disease secondary to chronic HCV genotype 1a with occult HBV and HIV negative status. He has also undergone US Abd which does not show any focal masses. Interestingly reported as normal liver despite fibrosure with F3-4 fibrosis, thrombocytopenia and splenomegaly. Pt does not report any IVDU but does report years of unprotected sexual intercourse > 15 years ago in [place]. No fam hx of liver disease. Also noted on labs is iron deficiency anemia with ferritin of 17. Pt reports having a colonoscopy 4 months ago at [facility] in [place]. Was told it was normal but does not recall the recall interval. US Abd 04/2023: 1. Nonspecific region of borderline focal wall thickening along the anterior aspect of the gallbladder wall measuring up to 4 mm. 2. Simple appearing cystic focus in the right renal upper pole measuring up to 1.6 cm, which does not require follow-up. 3. Enlarged spleen measuring up to 22.4 cm. 11/20/23: Large varices with high risk stigmata (EVBL x 5) Hiatal hernia Gastric polyps (biopsy) Antral nodule (biopsy) Portal hypertensive gastropathy Normal duodenum A. Stomach, antrum nodule: Antral-type mucosa with surface hyperplastic changes, mild chronic inactive inflammation and intestinal metaplasia; negative for dysplasia; no Helicobacter organisms seen. B. Stomach, polyps: Hyperplastic mucosal polyps with background moderate chronic active inflammation; no Helicobacter organisms seen. 12/03/23: Comes in for follow up. Reports some jaw discomfort after the EGD. Also had some discomfort with swallowing initially which improved with magic mouthwash. Currently no GI complaints. EGD findings and path reviewed including findings of HP gastric poylps. 02/13/24: Started Epclusa in December. 3 more weeks left for therapy. No active GI issues. Large varices with high risk stigmata (EVBL x 4) Hiatal hernia Gastric polyps Portal hypertensive gastropathy Portal hypertensive duodenopathy with lymphangectasia ?? Path: A. Stomach, antrum greater curvature, biopsy: Gastric antral mucosa with mild chronic inactive gastritis; negative for Helicobacter pylori, intestinal metaplasia and dysplasia. B. Stomach, antrum lesser curvature, biopsy: Gastric antral mucosa with mild reactive gastropathy and patchy mild chronic inflammation; negative for Helicobacter pylori, intestinal metaplasia and dysplasia. C. Stomach, incisura, biopsy: Gastric antral mucosa with mild chronic inactive gastritis and focal intestinal metaplasia; negative for Helicobacter pylori and dysplasia. D. Stomach, body greater curvature, biopsy: Gastric body-type mucosa with moderate chronic gastritis, glandular atrophy and intestinal metaplasia; negative for Helicobacter pylori and dysplasia (see comment). E. Stomach, body, lesser curvature, biopsy: Gastric body-type mucosa with moderate chronic gastritis, glandular atrophy and intestinal metaplasia; negative for Helicobacter pylori and dysplasia (see comment 07/02/24: Here for follow-up. Had a brief hospitalization last month for question of hematemesis. However, this was low-grade, and did not warrant an endoscopic workup at that time. Patient was discharged. Most recent CBC with hemoglobin at baseline. Also had HCV RNA checked in April, which remains undetectable. His SVR 12 is actually due next month. He also was diagnosed with atrophic gastritis based on biopsies as well as antiparietal antibody. Vitamin B12 and folate are normal. 10/31/24: Here with his grandbrayan Reynoso. Was hospitalized earlier this year for abd pain and progression of PV thrombosis. S/p TIPS 10/15/24 with plan for outpatient thrombectomy however pt did not show. Today, he tells me he sustained a fall earlier this week when he slipped on ice. Was brought to the hospital for evaluation and ACS rule out. Currently reports pin point pain in lower back around T12/L1. Still houseless but granddaughter is helping out with finding stable housing and also helping with meds. [facility] Medical History (Updated 10/31/24 @ 14:58 by Yajaira Antonio MD) Portal vein thrombosis Cirrhosis Splenic vein thrombosis Sepsis Cirrhosis of liver with ascites Abdominal pain Thrombocytopenia Pancytopenia Cirrhosis Hepatitis C virus infection Esophageal varices Pancytopenia Iron deficiency anemia Cirrhosis Hepatitis C HBP (high blood pressure) Surgical History (Updated 10/31/24 @ 14:58 by Yajaira Antonio MD) S/P TIPS (transjugular intrahepatic portosystemic shunt) H/O left inguinal hernia repair H/O eye surgery History of esophagogastroduodenoscopy (EGD) H/O colonoscopy Family History Maternal Grandmother Breast CA Uterus cancer Mother Primary lung cancer of unknown cell type Social History Household Members: None Household Members Other:: longterm Housing: Homeless Housing Other:: longterm Are you a primary personal carer to a significant other at home: No Do you presently have visiting nurse or other home services: No Comment: pt refused all high fall risk interventions Patient Tobacco Use Status: Current everyday Tobacco user Tobacco use type: Cigarette Cigarette Packs Per Day: 1 Cigarettes Per Day: 5 Years Smoked: 30 Second Hand Smoke Exposure: No Substance Use Type: Crack/Cocaine and Marijuana Advance Directives Date on File: 04/02/24 service: No Current occupational status: retired Review of Systems Const All systems reviewed & are unremarkable except as noted in HPI and below Physical Exam Vital Signs: Last Vital Signs Pulse 74 10/31/24 12:56 BP 143/65 H 10/31/24 12:56 BMI result Body Mass Index 28.6 No apparent distress Nonicteric Abdomen soft, nondistended Alert and oriented x3, normal gait, no asterixis spine: no overyling hematoma/bruise noted. Pin point tenderness from T12 to L1/L2. Pain worse on flexion. Assessment & Plan Assessment & Plan (1) Hepatitis C virus infection: Code(s): B19.20 - Unspecified viral hepatitis C without hepatic coma Category: Medical Qualifiers: Hepatic coma status: without hepatic coma Viral hepatitis chronicity: chronic Qualified Code(s): B18.2 - Chronic viral hepatitis C (2) Hepatitis B core antibody positive: Code(s): R76.8 - Other specified abnormal immunological findings in serum Category: Medical (3) Cirrhosis: Code(s): K74.60 - Unspecified cirrhosis of liver Category: Medical Qualifiers: Ascites presence: without ascites Hepatic cirrhosis type: unspecified hepatic cirrhosis Qualified Code(s): K74.60 - Unspecified cirrhosis of liver (4) Hyperplastic adenomatous polyp of stomach: Code(s): D13.1 - Benign neoplasm of stomach Category: Medical (5) Esophageal varices: Code(s): I85.00 - Esophageal varices without bleeding Category: Medical (6) Cirrhosis: Code(s): K74.60 - Unspecified cirrhosis of liver Category: Medical (7) S/P TIPS (transjugular intrahepatic portosystemic shunt): Code(s): Z95.828 - Presence of other vascular implants and grafts Category: Surgical (8) Portal vein thrombosis: Code(s): I81 - Portal vein thrombosis Category: Medical (9) Back pain: Code(s): M54.9 - Dorsalgia, unspecified Category: Medical (10) Fall: Code(s): W19.XXXA - Unspecified fall, initial encounter Category: Medical Plan 1. Chronic HCV genotype 1a with cirrhosis s/p Epclusa with SVR HBV core Ab pos, HBV surface Ag negative s/p EGD with variceal banding with progressive varices 2/2 PV thrombosis. Anticoagulation contraindicated due to high risk varices and low platelet <25. S/p TIPS 10/15/24 with plan for OP thrombectomy. Unfortunately pt sustained a fall the day he had the IR appt. Plan: - Pt and grand daughter advised to call IR office to be rescheduled on an darin basis - FYId Dr Ness as well for above - Cont lactulose 2-3 times a day - Cont coreg for now. EGD to be set up to ensure clinical portal HTN has reduced. - US abd with mesenteric duplex to be done in January 2025 (3 months from prev) 2. Localised lumbar back pain Due to pin point tenderness and worsening on extension, will get XR to r/o fracture. Plan: - Thoracic and lumbar spine XR 3. CRC screening Due later this year. Last colo in [place] was 5 years ago. To be booked once pt able to prep - currently houseless but granddaughter helping with finding housing. 4. R artificial eye Reports was supposed to have revision of the prosthetic eye but this was post poned due to low platelets. Educated pt that thrombocytopenia is expected due to underlying cirrhosis, no restriction to platelet transfusion prior to his eye procedure. 5. Hyperplastic gastric polyps No dysplasia noted. H pylori negative. - Will need complete resection of larger polyps. EGD booked for Apr 2024. - Will also benefit from mapping bx at next EGD - Pt established with Teresita (Dr Castro) will request coordination of platelet and possibly FFP transfusion before next EGD to allow for complete polypectomy Contact: Edgardo Zurita -[phone] Orders: Orders XR thoracic spine 2V Today M54.9 - Dorsalgia, unspecified, W19.XXXA - Unspecified fall, initial encounter XR lumbar spine 2-3V Today M54.9 - Dorsalgia, unspecified, W19.XXXA - Unspecified fall, initial encounter Patient Instructions: 1. XRay of spine to rule out fracture 2. Radiology office will call you to make the appointment to check the TIPS and to break up the clot in the blood vessel in the liver 3. Please take all your medications as prescribed 4. GI office will call you to make the appointment for upper endoscopy Coding Level of Care Code Est Pt Level 5 ([id number]) Complex EM visit Add On [id number] Diagnoses Chronic hepatitis C without hepatic coma B18.2 Hepatic coma status: without hepatic coma Viral hepatitis chronicity: chronic Hepatitis B core antibody positive R76.8 Cirrhosis of liver without ascites, unspecified hepatic cirrhosis type K74.60 Ascites presence: without ascites Hepatic cirrhosis type: unspecified hepatic cirrhosis Hyperplastic adenomatous polyp of stomach D13.1 Esophageal varices I85.00 S/P TIPS (transjugular intrahepatic portosystemic shunt) Z95.828 Portal vein thrombosis I81 Back pain M54.9 Fall W19.XXXA
[2024-10-31 12:56] VITALS: BP 143/65; PULSE 74; BMI 28.6
--- OUTSIDE RECORDS SUMMARY | 2024-10-31 13:18 | XMS_ITS | Encounter Summary ---
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 I called to ask what ADLs he needs assistance with, and he stated that he is unable to talk at this time, and asked for me to call back at about 10:30 today. [facility] [employer]ED [employer]IL INSPECT[employer] Services 10/22/2024 I called the patient regarding his request for COILED COIL INSPECTOR services. I asked what ADLs he needs assistance with, and he asked me to speak with Jonathan. Jonathan stated that he needs assistance with bathing, getting dressed, medications, housekeeping, cooking, and going to appointments. She stated that if he is approved, she will be his COILED COIL INSPECTOR. I informed her that once he is referred, he will be receiving a call from Yong, to set up an evaluation. She requested for [facility]ong to call her, because sometimes the pa Encounter Details Date Type Department Care Team (Late st Contact Info) Description 10/22/2024 Telephone [facility] [address] [place] [address] Leta Soto MD [address] [place] [address] COILED COIL INSPECTOR Services (The patient requested COILED COIL INSPECTOR services. I called to ask what ADLs he needs assistance with, and he stated that he is unable to talk at this time, and asked for me to call back at about 10:30 today.); [facility] [employer]ILED COIL INSPECTOR Services (I called the patient regarding his request for COILED COIL INSPECTOR services. I asked what ADLs he needs assistance with, and he asked me to speak with Jonathan. Jonathan stated that he needs assistance with bathing, getting dressed, medications, housekeeping, cooking, and going to appointments. She stated that if he is approved, she will be his COILED COIL INSPECTOR. I informed her that once he is referred, he will be receiving a call from Yong, to set up an evaluation. She requested for Yong to call her, because sometimes the pa) Social History Tobacco Use Types Packs/Day Years [...] with others, in a hotel, in a alf, living outside on the street, on a [...] PM EDT documented as of this encounter Miscellaneous Notes * Telephone Encounter - Mariia Donahue MA - 10/22/2024 11:15 AM EST I called the patient regarding his request for COILED COIL INSPECTOR services. I asked what ADLs he needs assistance with, and he asked me to speak with Ferminbeny. Jonathan stated that he needs assistance with bathing, getting dressed, medications, housekeeping, cooking, and going to appointments. She stated that if heis approved, she will be his COILED COIL INSPECTOR. I informed her that once he is referred, he will be receiving a call from [facility], to set up an evaluation. She requested for [facility] to call her, because sometimes the patient does not know how to respond to questions. I informed her that due to confidentiality, they would need an authorization from him, in order for them to speak with her. She verbalized understanding. * Telephone Encounter - Mariia Donahue MA - 10/22/2024 10:06 AM EST The patient requested COILED COIL INSPECTOR services. I called to ask what ADLs he needs assistance with, and he stated that he is unable to talk at this time, and asked for me to call back at about 10:30 today. documented in this encounter Plan of Treatment Upcoming Encounters Date Type Department Care Team (Late st Contact Info) Description 11/03/2024 9:30 AM EST Office Visit [facility] [address] [place] [address] Suzy Murguia NP [address] [place] [address] documented as of this encounter Goals Goal Patient Goal Type Associated Problems Recent Progress Patient-Stated? Author Blood Pressure < 140/90 Blood Pressure 149/78(2023 1:02 PM EST) Loan Newsome Record your blood pressure once per day Blood Pressure No Loan [place]bot documented as of this encounter Visit Diagnoses Not on filedocumented in this encounter Additional Health Concerns Assessment Noted Time PHQ-9 Depression Total Score: 18 023 11:23 AM EDT documented as of this encounter Care Teams Crew Boat Operator Relationship Specialty Start Date End Date Leta Soto MD [address] [place] [id number] PCP - General Internal Medicine 04/11/23 Yajaira Antonio [address] [place] [address] [address] [place] [address] Gastroenterology 09/04/24 documented as of this encounter
--- OUTSIDE RECORDS SUMMARY | 2024-10-31 13:18 | XMS_ITS | Clinical Summary ---
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 Blood Pressure Monitor kit Check blood pressure twice a wee. Dx hypertension 1 kit 05/25/20 23 Active albuterol 108 (90 Base) MCG/ACT inhaler Inhale 2 puffs every 6 (six) hours if needed for wheezing. 18 g 2 06/25/20 23 Active omeprazole (PriLOSEC) [address] capsule Take 20 mg by mouth in the morning. 11/20/19 24 Active Reguloid 57.6 % powder MIX 1 TEASPOONFUL IN 8 OUNCES OF WATER AND TAKE TWICE DAILY 284 g 2 03/03/20 24 Active furosemide (Lasix) 20 MG tablet TAKE 1 TABLET (for pain) EVERY MORNING 90 tablet 08/06/20 24 Active carvedilol (Coreg) 3.125 MG tablet Take 1 tablet by mouth with breakfast and with evening meal. 07/03/20 24 Active lactulose (Chronulac) 10 GM/15ML solution Take 20 g by mouth 3 times daily. Active amLODIPine (Norvasc) 5 MG tablet Take 1 tablet (5 mg) by mouth Once per day. 90 tablet 10/23/19 25 Active Ascorbic Acid (vitamin C) 250 MG tablet TAKE 1 TABLET BY MOUTH EVERY MORNING 90 tablet 1 10/28/19 25 Active Ferrous Sulfate (iron) 325 (65 Fe) MG tablet TAKE 1 TABLET BY MOUTH EVERY MORNING 90 tablet 1 10/28/19 25 Active nicotine (Nicoderm, Step 3) 7 MG/24HR patch APPLY 1 PATCH TOPICALLY TO THE SKIN IN THE MORNING. DO NOT SMOKE WHILE USING PATCH 42 patch 11/29/19 025 Discontinued(M ed list cleanup (will not trigger notification to Pharmacy)) brimonidine (AlphaGAN P) 0.2 % ophthalmic solution Administer 1 drop into the left eye 3 times daily. 12/07/19 025 Discontinued(M ed list cleanup (will not trigger notification to Pharmacy)) ketorolac (Acular) 0.5 % ophthalmic solution INSTILL 1 DROP IN THE LEFT EYE THREE TIMES DAILY. START 2 DAYS BEFORE SURGERY AND CONTINUE DIRECTED. 12/03/19 025 Discontinued(M ed list cleanup (will not trigger notification to Pharmacy)) sofosbuvir-ve lpatasvir (Epclusa) 400-100 MG tablet Take 1 tablet by mouth in the morning. 12/11/19 025 Discontinued(M ed list cleanup (will not trigger notification to Pharmacy)) nadolol (Corgard) 40 MG tablet Take 1 tablet (40 mg) by mouth in the morning. 30 tablet 12/17/19 025 Discontinued(M ed list cleanup (will not trigger notification to Pharmacy)) amLODIPine (Norvasc) 10 MG tablet TAKE 1 TABLET BY MOUTH EVERY MORNING 90 tablet 1 04/22/20 025 Discontinued(M ed list cleanup (will not trigger notification to Pharmacy)) FeroSul 325 (65 Fe) MG tablet TAKE 1 TABLET BY MOUTH EVERY MORNING 90 tablet 1 04/22/20 025 Discontinued(R eorder (will not trigger notification to Pharmacy)) Ascorbic Acid (vitamin C) 250 MG tablet TAKE 1 TABLET BY MOUTH EVERY MORNING 90 tablet 1 04/22/20 025 Discontinued(R eorder (will not trigger notification to Pharmacy)) amLODIPine (Norvasc) 5 MG tablet Take 1 tablet by mouth Once per day. 025 Discontinued(R eorder (will not trigger notification to Pharmacy)) Active Problems Problem Noted Date Diagnosed Date Esophageal varices determined by endoscopy 09/04 Overview (09/04/2024): 09/04/24 w/ Dr. Antonio EGD Impressions: * Large varices with high risk stigmata (EVBL x 5) * Fundal varices * Gastric polyps * Portal hypertensive gastropathy * Portal hypertensive duodenopathy with lymphangectasia Recommendations (from GI): * Clear liquids x 6 hours and then regular diet * Can take magic mouth wash ad rachael for post banding discomfort x 2-3 days * Start carafate 1g liquid PO QID for prevention of post-banding ulcers * Cont Carvedilol 3.125 BID. HR has been in 60s so unable to up titrate. 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 He also presents with feeling nervous, unable to stop worrying about many things, restlessness and feeling as something bad may happen. Presentation in the context of homelessness, recent relocation, language barrier, no income and difficulties with comprehension. Patient requested to be referred to a OP therapist and psychiatrist. At this time Adelso Mcmanus meets criteria for Visit Diagnoses: Problem List Items Addressed This Visit Other Depression, unspecified Anxiety disorder, unspecified Patient ready to address current needs Yes Strengths include having aunt as his advocate PLAN: 1. Follow up with [facility]: Not recommended for follow-up 2. Patient goal is be connected to services 3. Behavioral Recommendations a. Patient will engage in service once established b. Patient may return to [facility] for medical needs until a PCP is established c. Patient may request to speak with an [facility], as needed Pancytopenia 04/09/2023 Assessment & Plan (08/05/2024 8:08 PM EST): In care with hematology, cbc pending Severe thrombocytopenia 04/09/2023 Illiteracy 04/05/2023 Homeless 04/05/2023 Essential hypertension 04/05/2023 Assessment & Plan (08/05/2024 8:07 PM EST): At goal, continue current meds Hepatitis C virus infection without hepatic coma 04/05/2023 Assessment & Plan (08/05/2024 8:07 PM EST): Stable, per GI viral load undetectable Resolved Problems Problem Noted Date Diagnosed Date Resolved Date Dyspnea 06/26/2023 01/23/2024 Urinary incontinence 04/05/2023 023 Encounters Date Type Department Care Team Description 10/28/2024 Orders Only GENERIC EXTERNAL DATA DEPARTMENT Provider, Generic External Data 10/28/2024 Refill [facility] [address] [place] [address] Leta Soto MD 10/23/2024 Refill [facility] [address] [place] [address] Kelly Dick, PharmD 10/22/2024 Patient Outreach [facility] [address] [place] [address] Leta Soto MD Transition Of Care (Tcm) (HDF- Scheduled) 10/22/2024 Telephone [facility] [address] [place] [address] Kelly Dick, PharmD 10/22/2024 Telephone [facility] [address] [place] [phone] Leta Soto MD [employer] (The patient requested [employer] [facility]. I called to ask what ADLs he needs assistance with, and he stated that he is unable to talk at this time, and asked for me to call back at about 10:30 today.); Yong [employer] (I called the patient regarding his request for [employer]. I asked what ADLs he needs assistance with, and he asked me to speak with Jonathan. Jonathan stated that he needs assistance with bathing, getting dressed, medications, housekeeping, cooking, and going to appointments. She stated that if he is approved, she will be his [employer]. I informed her that once he is referred, he will be receiving a call from [facility], to set up an evaluation. She requested for [facility] to call her, because sometimes the pa) 10/13/2024 Telephone [facility] [address] [place] [phone] Nhung Caicedo [place] december recall 10/08/2024 Orders Only [facility] External Provider, [facility] 09/02/2024 Orders Only GENERIC EXTERNAL DATA DEPARTMENT Provider, Generic External Data 08/06/[address] [address] Leta Soto MD 08/05/2024 1:00 PM EST Office Visit [address] [address] Sonia Silva NP Preop examination (Primary Dx); Essential hypertension; Hepatitis C virus infection without hepatic coma, unspecified chronicity; Pancytopenia (CMS/HCC); Severe thrombocytopenia (CMS/HCC); Cognitive impairment; Tobacco use; 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, unspecified complication, sequela 08/05/2024 Orders Only [facility] [address] [place] [phone] Sonia Silva NP 08/05/2024 Travel 08/04/[address] [address] Una Cabrera [place] Chart Prep from Last 3 Months Immunizations Name Administration Dates Next Due Hep B, adult 01/04/2024,07/26/2023,06/25/2023 Influenza injectable quadriv alent preservative free 05/25/2023 Pneumococcal Conjugate PCV 20 05/25/2023 Tdap 05/25/2023 Family History Medical History Relation Name Comments Colon cancer Maternal Grandmother Alzheimer's disease Mother Diabetes Mother Breast cancer Mother's Sister Diabetes Mother's Sister Relation Name Status Comments Maternal Grandmother Mother Mother's Sister Social History Tobacco Use Types Packs/Day Years Used Date Smoking Tobacco: Every Day Cigarettes Passive Smoke Exposure: Current Tobacco Cessation:Ready to Q uit: No; Counseling Given: Yes Comments:Pt smokes since 15 y o until [...] with others, in a hotel, in a residential, living outside on the street, on a [...] Orientation Straight 05/26/2023 6: 44 PM EDT Last Filed Vital Signs Vital Sign Reading Time Taken Comments Blood Pressure 149/78 08/05/2024 1:02 PM EST Pulse 72 08/05/2024 1:02 PM EST Temperature 36.8 ??C (98.2 ??F) 01/23/2024 2:23 PM ED T Respiratory Rate 16 08/05/2024 1:02 PM EST Oxygen Saturation 99% 08/05/2024 1:02 PM EST Inhaled Oxygen Concentration - - Weight 102 kg (225 lb 3.2 oz) 08/05/2024 1:02 PM EST Height 180.3 cm (5' 11 ) 08/05/2024 1:02 PM EST Body Mass Index 31.41 08/05/2024 1:02 PM EST Plan of Treatment Upcoming Encounters Date Type Department Care Team (Late st Contact Info) Description 11/03/2024 9:30 AM EST Office Visit [facility] [address] [place] [address] Suzy Murguia NP [address] [place] [address] Health Maintenance Due Date Last Done Comments CT Colonography 1960 Colonoscopy 1960 Colorectal Cancer Screening 1960 FIT DNA/Cologuard 1961 FIT 1960 FOBT 1960 HIV Screening 1960 Sigmoidoscopy 1960 Alcohol/Substance Use Screening 1973 Hepatitis A Vaccines (1 of 2 - Risk 2-dose series) 1980 Zoster Vaccines (1 of 2) 12/03/2011 RSV Patients and Patients Aged 60 years or older (1 - Risk 60-74 years 1-dose series) 2021 Depression Monitoring (PHQ-9) 04/24/2024, 04/09/2023 COVID-19 Vaccine (1 - 2023-2 5 season) 2024 Influenza Vaccine (#1) 2024 05/25/2023 SDOH Screening 05/25/2024 05/25/2023 Depression Screening 10/25/2024 10/25/2023, 04/09/2023 Tobacco Screening 01/22/2025 01/23/2024 Lipid Panel 04/06/2028 04/06/2023 DTaP/Tdap/Td Vaccines (2 - T d or Tdap) 05/25/2033 05/25/2023 Pneumococcal Vaccine: 50+ Years Completed 05/25/2023 Hepatitis B Vaccines Completed 01/04/2024, 07/26/2023, 06/25/2023 HIB Vaccines Aged Out No longer eligi ble based on patient's age to complete this topic HPV Vaccines Aged Out No longer eligi ble based on patient's age to complete this topic IPV Vaccines Aged Out No longer eligi ble based on patient's age to complete this topic Meningococcal Vaccine Aged Out No camille priscilla eligible based on patient's age to complete this topic RSV under 20 months Aged Out No longe r eligible based on patient's age to complete this topic Rotavirus Vaccines Aged Out No longer eligible based on patient's age to complete this topic Goals Goal Patient Goal Type Associated Problems Recent Progress Patient-Stated? Author Blood Pressure < 140/90 Blood Pressure 149/78(2023 1:02 PM EST) No Loan Talbot Record your blood pressure once per day Blood Pressure No Loan Talbot Procedures Procedure Name Priority Date/Time Associated Diagnosis Comments CT ABDOMEN PELVIS W CONTRAST Routine 10/28/2024 9:08 PM EST HIGH SENSITIVITY TROPONIN I Routine 10/28/2024 7:29 PM EST XR CHEST 2 VIEWS Routine 10/28/2024 6:02 PM EST IR TIPS INSERTION Routine 10/15/2024 1:3 0 PM EST US ABDOMEN LIMITED Routine 10/09/2024 12 :24 PM EST HIGH SENSITIVITY TROPONIN I Routine 10/08/2024 10:20 PM EST XR CHEST 1 VIEW Routine 10/08/2024 9:[address] ABDOMEN PELVIS W CONTRAST Routine 10/08/2024 9:40 PM EST SLIDE REVIEW Routine 09/02/2024 10:55 AM EST COMPREHENSIVE METABOLIC PANEL Routine 09/02/2024 10:55 AM EST CBC WITH AUTO DIFFERENTIAL Routine 09/02/2024 10:55 AM EST PHERESIS PLATELETS Routine 09/02/2024 10 :50 AM EST TYPE AND SCREEN Routine 09/02/2024 10:50 AM EST ECG 12-LEAD Routine 08/05/2024 8:03 PM EST Preop examination SLIDE REVIEW Routine 08/05/2024 1:45 PM EST PROTHROMBIN TIME-INR Routine 08/05/2024 1:45 PM EST Severe thrombocytopenia (CMS/HCC) COMPREHENSIVE METABOLIC PANEL Routine 08/05/2024 1:45 PM EST Severe thrombocytopenia (CMS/HCC) CBC WITH AUTO DIFFERENTIAL Routine 08/05/2024 1:45 PM EST Severe thrombocytopenia (CMS/HCC) LIPID PANEL, STANDARD Routine 04/06/2023 10:00 AM EDT Healthcare maintenance from Last 3 Months or Most Recently Relevant to Health Maintenance Results * CT Abdomen Pelvis w/ Contrast (10/28/2024 9:08 PM EST) Only the most recent of2 resultswithin the time period is included. Anatomical Region Laterality Modality Body, Pelvis, Abdomen Computed T omography 10/28/2024 9:08 PM EST Narrative 10/28/2024 9:10 PM EST ? [place] [facility] ?[address] ?[place] [address] ? CT Scan Report ? Signed ? Patient: Godfrey Mcmanus,Adelso ?MR#: [id number] ?? [id number] ? : 1960 ?Acct:[id number] ? Age/Sex: 63 / M ?ADM Date: 10/28/24 ? Loc: HO.ED ? Attending Dr: ? Ordering Physician: Venice Morrison CNP ?? Date of Service: 10/28/24 ?? Procedure(s): CT abdomen pelvis w IV con ?? Accession Number(s): [id number] ? cc: Venice Morrison CNP; Leta Soto MD ? Report Number: ?? [id number]: Total DLP = ??687.00 mGy-cm ? CLINICAL HISTORY: RUQ pain TTP, hyperbilirubinemia ? CT abdomen and pelvis with contrast ? Comparison: CT/SR - CT ABDOMEN PELVIS W IV CON - 10/08/24 20:35 EST ? Findings: ?? No consolidation or effusion. ?? Wall thickening of distal thoracic esophagus have decreased. ? Liver is small and nodular consistent with cirrhosis. Interval placement ?? of a shunt in the liver extending from the IVC into the portal vein. ?? Interval decrease in size of portal vein and of recanalized umbilical vein. ?? Stable thrombus at the confluence of splenic vein and portal vein. ?? Stable splenomegaly. Improved distal esophageal varices and venous ?? collaterals in upper abdomen. Resolved mild ascites. ?? Gallbladder, adrenal glands and pancreas within normal limits. ? No bowel obstruction, pneumoperitoneum, or pneumatosis. ?? Appendix is unremarkable. Atherosclerotic vascular disease with no ?? aneurysm of abdominal aorta. Improved stranding around the inferior ?? mesenteric artery. ?? Small umbilical hernia containing fat and recanalized small umbilical vein. ?? Svpq-od-qhflgewr colonic stool and moderate rectal stool. ?? Prostate and urinary bladder within limits. ?? No acute fracture. Degenerative changes most significantly involving ?? L5-S1. Mild degenerative changes in bilateral hips. ? IMPRESSION: ?? 1. Interval hepatic shunt with resolved ascites, improved distal ?? esophageal varices, upper abdominal collaterals and decrease in size of ?? portal vein and recanalized umbilical vein. ?? 2. Stable thrombus at the confluence of portal vein and splenic vein. ?? 3. Dhcl-vr-qsyjrcdi colonic stool and moderate rectal stool. ?? 4. Additional stable findings as described. ? This document has been electronically signed by: Daphne Jensen MD on ?? 10/28/2024 21:08:32 ? Dictated By: ?Daphne Jensen MD ? Signed By: ?<Electronically signed by Daphne Jensen MD in OV> ? 10/28/242108 ? DD/ 07 ? TD/TT: 10/28/248 ? Back Line Cook: ? Procedure Note Donotuseinterpreter, Image - 10/28/[address] [address] [address] Scan Report Signed Patient: Adelso BeebeMR#: [id number] : 1960cct:[id number] Age/Sex: 63 / MADM Date: 10/28/24 Loc: HO.ED Attending Dr: Ordering Physician: Venice Morrison CNP Date of Service: 10/28/24 Procedure(s): CT abdomen pelvis w IV con Accession Number(s): [id number] cc: Venice Morrison CNP; Leta Soto MD Report Number: [id number]: Total DLP = 687.00 mGy-cm CLINICAL HISTORY: RUQ pain TTP, hyperbilirubinemia CT abdomen and pelvis with contrast Comparison: CT/SR - CT ABDOMEN PELVIS W IV CON - 10/08/24 20:35 EST Findings: No consolidation or effusion. Wall thickening of distal thoracic esophagus have decreased. Liver is small and nodular consistent with cirrhosis. Interval placement of a shunt in the liver extending from the IVC into the portal vein. Interval decrease in size of portal vein and of recanalized umbilicalvein. Stable thrombus at the confluence of splenic vein and portal vein. Stable splenomegaly. Improved distal esophageal varices and venous collaterals in upper abdomen. Resolved mild ascites. Gallbladder, adrenal glands and pancreas within normal limits. No bowel obstruction, pneumoperitoneum, or pneumatosis. Appendix is unremarkable. Atherosclerotic vascular disease with no aneurysm of abdominal aorta. Improved stranding around the inferior mesenteric artery. Small umbilical hernia containing fat and recanalized small umbilicalvein. Dxug-pi-jgnlhiqg colonic stool and moderate rectal stool. Prostate and urinary bladder within limits. No acute fracture. Degenerative changes most significantly involving L5-S1. Mild degenerative changes in bilateral hips. IMPRESSION: 1. Interval hepatic shunt with resolved ascites, improved distal esophageal varices, upper abdominal collaterals and decrease in size of portal vein and recanalized umbilical vein. 2. Stable thrombus at the confluence of portal vein and splenic vein. 3. Jkcf-bx-tqlficzt colonic stool and moderate rectal stool. 4. Additional stable findings as described. This document has been electronically signed by: Daphne Jensen MD on 10/28/2024 21:08:32 Dictated By: Daphne Jensen MD Signed By: <Electronically signed by Daphne Jensen MD in OV> 10/28/242108 DD/ 07 TD/TT: 10/28/242107 Back Line Cook: [facility] External Provider IMG CT PROCEDURES Edited Result - Final * High Sensitivity Troponin I (10/28/2024 7:29 PM EST) Only the most recent of2 resultswithin the time period is included. TROPONIN I HIGH SENSITIVITY 5.2 <3.5 - 35.0 ng/L [facility] Comment:The Clifford high sens itivity Troponin-I results should beused in conjunction with other diagnostic information suchas ECG, clinical observations and information, and patientsymptoms to aid in the diagnosis of NV. 10/28/2024 7:29 PM EST 10/28/2024 7:32 PM EST Generic External Data Provider LAB BLOOD ORDERAB LES Final Result [facility] [address] [place] [address] [phone] * XR Chest 2 Views (10/28/2024 6:02 PM EST) Anatomical Region Laterality Modality Chest Radiographic Susy ging 10/28/2024 6:02 PM EST Narrative 10/28/2024 6:05 PM EST ? [facility] [facility] ?[address] ?[place] [address] ?XRay Report ? Signed ? Patient: Godfrey Mcmanus,Adelso ?MR#: [id number] ?? [id number] ? : 1960 ?Acct:[id number] ? Age/Sex: 63 / M ?ADM Date: 10/28/24 ? Loc: HO.ED ? Attending Dr: ? Ordering Physician: Venice Morrison CNP ?? Date of Service: 10/28/24 ?? Procedure(s): XR chest 2V ?? Accession Number(s): [id number] ? cc: Venice Morrison CNP; Leta Soto MD ? CLINICAL HISTORY: chest pain ? 2 view chest x-ray ? Comparison: CR - XR CHEST 1V - 10/08/24 20:45 EST ? Findings: ?? The lungs are clear. ?? Heart size is normal. ?? No acute fracture. ? IMPRESSION: ?? 1. No acute findings. ? This document has been electronically signed by: Larissa Roth MD on ?? 10/28/2024 18:02:18 ? Dictated By: ?Larissa Roth MD ? Signed By: ?<Electronically signed by Larissa Roth MD in OV> ? 10/28/24 1804 ? DD/ 1802 ? TD/TT: 10/28/24 1802 ? Back Line Cook: ? Procedure Note Hiral, Image - 10/28/2024 [place] [address] XRay Report Signed Patient: Yolanda Beebe#: [id number] : 1960cct:[id number] Age/Sex: 63 / MADM Date: 10/28/24 Loc: HO.ED Attending Dr: Ordering Physician: Venice Morrison CNP Date of Service: 10/28/24 Procedure(s): XR chest 2V Accession Number(s): [id number] cc: Venice Morrison CNP; Leta Soto MD CLINICAL HISTORY: chest pain 2 view chest x-ray Comparison: CR - XR CHEST 1V - 10/08/24 20:45 EST Findings: The lungs are clear. Heart size is normal. No acute fracture. IMPRESSION: 1. No acute findings. This document has been electronically signed by: Larissa Roth MD on 10/28/2024 18:02:18 Dictated By: Larissa Roth MD Signed By: <Electronically signed by Larissa Roth MD in OV> 10/28/241803 DD/ 01 TD/TT: 10/28/241801 Back Line Cook: [facility] External Provider IMG XR PROCEDURES Edited Result - Final * IR TIPS insertion (10/15/2024 1:30 PM EST) Anatomical Region Laterality Modality X-Ray Angiograph y 10/15/2024 1:30 PM EST Narrative 10/15/2024 4:32 PM EST ? [facility] ?[address] ?[place] [address] ?Interventional Radiology Rpt ? Signed ? Patient: Godfrey McmanusAdelso ?MR#: [id number] ?? [id number] ? : 1960 ?Acct:[id number] ? Age/Sex: 63 / M ?ADM Date: 10/08/24 ? Loc: HO.ICU ?252-1 ? Attending Dr: Zana Spear MD ? Ordering Physician: Yajaira Antonio MD ?? Date of Service: 10/15/24 ?? Procedure(s): IR TIPS insertion ?? Accession Number(s): [id number] ? cc: Leta Soto MD; Yajaira Antonio MD ? Procedure: TIPS placement ? HISTORY/INDICATION: Cirrhosis, portal hypertension, gastroesophageal ?? varices, ascites, portal vein thrombus ? PROCEDURE/TECHNIQUE: ?? Patient was placed supine in the angiography table. General anesthesia ?? was induced by anesthesiologist (see separately reported notes for ?? details). The right neck was sterilely prepped and draped. Preliminary ?? ultrasound demonstrates widely patent right internal jugular vein. The ?? right internal jugular vein was accessed with a 21-gauge micropuncture ?? needle under direct ultrasound guidance with permanent recordings and ?? direct visualization of the needle entering into the vein. The needle ?? was exchanged for a transitional dilator over a 0.018 guidewire. A ?? 0.035 guidewire was advanced to the IVC. A 10 [place]ar[place]uan sheath was placed. ?? A hockey-stick catheter was used to catheterize the right hepatic vein. ?? This was confirmed with venography. The sheath was then advanced into ?? the right hepatic vein. A EyeEm TIPS set was then used to gain ?? access to the right portal vein from the right hepatic vein via ?? transparenchymal approach with the needle with a single stick. Position ?? was confirmed with portal venography. A 0.035 wire was advanced into ?? the portal vein and then down the SMV. A pigtail catheter was ?? positioned in the SMV. Portal venography was performed. Thrombus within ?? the confluence of the SMV and splenic vein and proximal portal vein is ?? noted in concordance with findings on recent cross-sectional imaging. ?? An attempt was made to obtain portal and systemic pressures but was ?? aborted due to technical difficulty with equipment. The tract was ?? dilated up to 6 mm and the sheath was then advanced into the portal ?? vein. Measurements were obtained. An 8 mm x 8 cm [place] Viatorr TIPS was ?? then deployed from the hepatic vein to the portal vein. The TIPS stent ?? was postdilated with an 8 mm RN CLINICAL REVIEW balloon. Portal venogram demonstrates ?? wide patency of the TIPS stent. There is thrombus in the central ?? portion of the splenic vein at the confluence with the SMV extending ?? slightly into the main portal vein but no impedance to flow. We elected ?? to stage potential intervention for the thrombus given the procedure ?? time and excellent flow within the stent. Again, portal and systemic ?? pressures were unable to be obtained due to technical difficulties. The ?? sheath was removed and hemostasis was achieved with manual compression. ?? A sterile dressing was applied. Patient tolerated procedure well. ?? Patient was extubated and transferred to PACU in stable condition. ? IR/IR TIPS insertion ?? IMPRESSION: ? Successful placement of TIPS stent as detailed above. ? PLAN: ? Admit to ICU for overnight observation. ? Follow-up TIPS ultrasound and clinic visit to be arranged after ?? discharge ? Electronically signed by: ??Abraham Ness MD ??10/15/2024 04:30 PM EST RP ? Dictated By: ?Abraham Ness MD ? Signed By: ?<Electronically signed by Abraham Ness MD in OV> ?10/15/24 1630 ? DD/ 1330 ? TD/TT: 10/15/24 1625 ? Back Line Cook: ? Procedure Note Donotuseinterpreter, Image - 10/16/[address] [address] Interventional Radiology Rpt Signed Patient: Adelso BeebeMR#: [id number] : 2Acct:[id number] Age/Sex: 63 / MADM Date: 10/08/24 Loc: .[facility] 252-[address]: Zana Spear MD Ordering Physician: Yajaira Antonio MD Date of Service: 10/15/24 Procedure(s): IR TIPS insertion Accession Number(s): [id number] cc: Leta Soto MD; Yajaira Antonio MD Procedure: TIPS placement HISTORY/INDICATION: Cirrhosis, portal hypertension, gastroesophageal varices, ascites, portal vein thrombus PROCEDURE/TECHNIQUE: Patient was placed supine in the angiography table. General anesthesia was induced by anesthesiologist (see separately reported notes for details). The right neck was sterilely prepped and draped. Preliminary ultrasound demonstrates widely patent right internal jugular vein. The right internal jugular vein was accessed with a 21-gauge micropuncture needle under direct ultrasound guidance with permanent recordings and direct visualization of the needle entering into the vein. The needle was exchanged for a transitional dilator over a 0.018 guidewire. A 0.035 guidewire was advanced to the IVC. A 10 Nicaraguan sheath was placed. A hockey-stick catheter was used to catheterize the right hepatic vein. This was confirmed with venography. The sheath was then advanced into the right hepatic vein. A EyeEm TIPS set was then used to gain access to the right portal vein from the right hepatic vein via transparenchymal approach with the needle with a single stick. Position was confirmed with portal venography. A 0.035 wire was advanced into the portal vein and then down the SMV. A pigtail catheter was positioned in the SMV. Portal venography was performed. Thrombus within the confluence of the SMV and splenic vein and proximal portal vein is noted in concordance with findings on recent cross-sectional imaging. An attempt was made to obtain portal and systemic pressures but was aborted due to technical difficulty with equipment. The tract was dilated up to 6 mm and the sheath was then advanced into the portal vein. Measurements were obtained. An 8 mm x 8 cm Paoli Viatorr TIPS was then deployed from the hepatic vein to the portal vein. The TIPS stent was postdilated with an 8 mm RN CLINICAL REVIEW balloon. Portal venogram demonstrates wide patency of the TIPS stent. There is thrombus in the central portion of the splenic vein at the confluence with the SMV extending slightly into the main portal vein but no impedance to flow. We elected to stage potential intervention for the thrombus given the procedure time and excellent flow within the stent. Again, portal and systemic pressures were unable to be obtained due to technical difficulties. The sheath was removed and hemostasis was achieved with manual compression. A sterile dressing was applied. Patient tolerated procedure well. Patient was extubated and transferred to PACU in stable condition. IR/IR TIPS insertion IMPRESSION: Successful placement of TIPS stent as detailed above. PLAN: Admit to ICU for overnight observation. Follow-up TIPS ultrasound and clinic visit to be arranged after discharge Electronically signed by: Abraham Ness MD 10/15/2024 04:30 PM EST RP Dictated By: Abraham Ness MD Signed By: <Electronically signed by Abraham Ness MD in OV> 10/15/24 1630 DD/ 1330 TD/TT: 10/15/24 1625 Back Line Cook: [facility] External Provider IMG IR PROCEDURES Edited Result - Final * US Abdomen Limited (10/09/2024 12:24 PM EST) Anatomical Region Laterality Modality Abdomen Ultrasound 10/09/2024 12:2 4 PM EST Narrative 10/09/2024 12:25 PM EST ? [facility] ?[address] ?[place] [address] ? Ultrasound Report ? Signed ? Patient: Adelso Beebe ?MR#: [id number] ?? [id number] ? : 1960 ?Acct:[id number] ? Age/Sex: 63 / M ?ADM Date: 01/29/25 ? Loc: HO.[place] ?MEDSURG-5 ? Attending Dr: Faustino Madsen MD ? Ordering Physician: Lobo Whiting MD ?? Date of Service: 10/09/24 ?? Procedure(s): US abdomen limited ?? Accession Number(s): [id number] ? cc: Lobo Whiting MD; Leta Soto MD ? CLINICAL HISTORY: abd pain and fever, new (small) ascites ? Limited abdominal ultrasound. ? Comparison: CT scan of the abdomen and pelvis from ? Findings: The study is limited to a four-quadrant examination for ?? paracentesis. On the limited images provided there is a small amount of ?? ascites. No other abnormalities are noted. ? Impression: Small amount of ascites. ? This document has been electronically signed by: Charles Alegre MD on ?? 10/09/2024 12:24:42 ? Dictated By: ?Charles Alegre MD ? Signed By: ?<Electronically signed by Charles Alegre MD in OV> ? 10/09/24 1224 ? DD/ 1224 ? TD/TT: 10/09/24 1224 ? Back Line Cook: ? Procedure Note Hiral, Image - 10/09/2024 [place] [address] Ultrasound Report Signed Patient: Adelso BeebeMR#: [id number] : 2Acct:[id number] Age/Sex: 63 / MADM Date: 10/08/24 [facility] Dr: Faustino Madsen MD Ordering Physician: Lobo Whiting MD Date of Service: 10/09/24 Procedure(s): US abdomen limited Accession Number(s): [id number] cc: Lobo Whiting MD; Leta Soto MD CLINICAL HISTORY: abd pain and fever, new (small) ascites Limited abdominal ultrasound. Comparison: CT scan of the abdomen and pelvis from Findings: The study is limited to a four-quadrant examination for paracentesis. On the limited images provided there is a small amount of ascites. No other abnormalities are noted. Impression: Small amount of ascites. This document has been electronically signed by: Charles Alegre MD on 10/09/2024 12:24:42 Dictated By: Charles Alegre MD Signed By: <Electronically signed by Charles Alegre MD in OV> 10/09/24 1224 DD/ 1224 TD/TT: 10/09/24 1224 Back Line Cook: us [facility] External Provider IMG US PROCEDURES Final Result * XR Chest 1 View (10/08/2024 9:42 PM EST) Anatomical Region Laterality Modality Chest Radiographic Susy ging 10/08/2024 9:42 PM EST Narrative 10/08/2024 9:43 PM EST ? [facility] ?[address] ?[place] [address] ?XRay Report ? Signed ? Patient: Adelso Beebe ?MR#: [id number] ?? [id number] ? : 1960 ?Acct:[id number] ? Age/Sex: 63 / M ?ADM Date: 10/08/24 ? Loc: HO.ED ? Attending Dr: ? Ordering Physician: Bhavana Christensen ?? Date of Service: 10/08/24 ?? Procedure(s): XR chest 1V ?? Accession Number(s): [id number] ? cc: Bhavana Christensen; Leta Soto MD ? CLINICAL HISTORY: htn ? 1 view chest x-ray ? Comparison: CR/SR - XR CHEST 1 - 03/30/24 12:39 EDT ? Findings: ?? No consolidation or effusion. ?? Heart size is normal. ?? No acute fracture. ? IMPRESSION: ?? 1. No acute findings. ? This document has been electronically signed by: Raghu Quezada, ?? on 10/08/2024 21:42:35 ? Dictated By: ?Raghu Quezada MD ? Signed By: ?<Electronically signed by Raghu Quezada MD in OV> ?10/08/242142 ? DD/ 41 ? TD/TT: 10/08/242141 ? Back Line Cook: ? Procedure Note Mehreen Blackman - 10/08/[address] [address] XRay Report Signed Patient: Adelso BeebeMR#: [id number] : 2Acct:[id number] Age/Sex: 63 / MADM Date: 10/08/24 Loc: HO.ED Attending Dr: Ordering Physician: Bhavana Christensen Date of Service: 10/08/24 Procedure(s): XR chest 1V Accession Number(s): [id number] cc: Bhavana Christensen; Leta Soto MD CLINICAL HISTORY: htn 1 view chest x-ray Comparison: CR/SR - XR CHEST 1V - 03/30/24 12:39 EDT Findings: No consolidation or effusion. Heart size is normal. No acute fracture. IMPRESSION: 1. No acute findings. This document has been electronically signed by: Raghu Quezada MD on 10/08/2024 21:42:35 Dictated By: Raghu Quezada MD Signed By: <Electronically signed by Raghu Quezada MD in OV> 10/08/242142 DD/ 41 TD/TT: 10/08/242141 Back Line Cook: [facility] External Provider IMG XR PROCEDURES Edited Result - Final * Slide Review (09/02/2024 10:55 AM EST) Only the most recent of2 resultswithin the time period is included. Slide Review VERIFIED [facility] 09/02/2024 10:5 5 AM EST 09/02/2024 10:55 AM EST Generic External Data Provider LAB BLOOD ORDERAB LES Final Result [facility] [address] [place] [phone] * (ABNORMAL) CBC auto differential (09/02/2024 10:55 AM EST) Only the most recent of2 resultswithin the time period is included. White Blood Count 1.8(L) 4.8 - 10.8 X10*3/uL [facility] Red Blood Count 4.15(L) 4.60 - 5.80 X10*6/uL [facility] Hemoglobin 11.5(L) 14.0 - 18.0 g/dl [facility] Hematocrit 36.4(L) 42.0 - 52.0 % [facility] Mean Corpuscular Volume 87.7 80.0 - 98.0 fL [facility] Mean Corpuscular Hemoglobin 27.7 27.0 - 33.0 pg [facility] Mean Corpuscular HGB Conc 31.6 31.0 - 36.0 g/dl [facility] Red Cell Distribution Width 14.0 11.0 - 16.0 % [facility] Platelet Count 21(L) 160 - 400 X10*3/uL [facility] Mean Platelet Volume TNP 9.4 - 12.4 fL [facility] Neutrophils Percent Auto 68.0 45 - 73 % [facility] Imm Gran Pct Auto 0.0 0.0 - 0.4 % [facility] Lymphocytes Percent Auto 23.9 20 - 40 % [facility] Monocytes Percent Auto 6.0 2 - 11 % [facility] Eosinophils Percent Auto 1.6 0 - 4 % [facility] Basophils Percent Auto 0.5 0 - 2 % [facility] NRBC Pct Auto 0.0 0.0 - 0.2 /100WBC [facility] Neutrophils Absolute Auto 1.3(L) 2.0 - 8.3 x10*3/uL [facility] Imm Gran Abs Auto 0.00 0.00 - 0.03 X10*3/uL [facility] Lymphocytes Absolute Auto 0.4(L) 1.2 - 4.9 X10*3/uL [facility] Monocytes Absolute Auto 0.1 0.1 - 1.2 X10*3/uL [facility] Eosinophils Absolute Auto 0.0 0.0 - 0.4 X10*3/uL [facility] Basophils Absolute Auto 0.0 0.0 - 0.2 X10*3/uL [facility] NRBC Abs Auto 0.000 0.0 - 0.012 X10*3/uL [facility] 09/02/2024 10:5 5 AM EST 09/02/2024 10:55 AM EST us Generic External Data Provider LAB BLOOD ORDERAB LES Edited Result - Final [facility] [address] [place] [phone] * (ABNORMAL) Comprehensive Metabolic Panel (09/02/2024 10:55 AM EST) Only the most recent of2 resultswithin the time period is included. Sodium 144 135 - 145 mmol/L [facility] Potassium 4.6 3.3 - 5.1 mmol/L [facility] Chloride 112(H) 96 - 108 mmol/L [facility] Carbon Dioxide 26 22 - 29 mmol/L [facility] Anion Gap 11(L) 12 - 20 [facility] Urea Nitrogen (BUN) 12 9 - 16 mg/dL [facility] Creatinine, Serum 0.88 0.5 - 1.4 mg/dL [facility] Estimated Glomerular Filt Rate >60 [facility] Comment:Chronic Kidney Disea se: Estimated GFR < 60 mL/min/1.25y7Mccbip Kidney Disease: Estimated GFR < 15 mL/min/1.73m2 Glucose 102 60 - 115 mg/dL [facility] Calcium 9.0 8.4 - 10.2 mg/dL [facility] Bilirubin, Total 1.1(H) 0.0 - 1.0 mg/dL [facility] Aspartate Amino Transferase 41(H) 5 - 37 U/L [facility] Alanine Aminotransferase 27 0 - 40 U/L [facility] Total Protein 7.3 6.5 - 8.0 g/dL [facility] Albumin Level 3.6 3.5 - 5.0 g/dL [facility] Alkaline Phosphatase 117 39 - 117 U/L [facility] 09/02/2024 10:5 5 AM EST 09/02/2024 10:55 AM EST us Generic External Data Provider LAB BLOOD ORDERAB LES Final Result Performing Organization Address [facility]/ZIP Co de Phone Number [facility] [address] [place] [phone] * Pheresis Platelets (09/02/2024 10:50 AM EST) Pheresis Platelets [id number] OP PHPLT TRANSFUSED 09/04/24 0934 [id number] OP PHPLT TRANSFUSED 09/04/24 0854 [facility] 09/02/2024 10:5 0 AM EST 09/02/2024 11:08 AM EST Generic External Data Provider LAB BLOOD BANK TE ST ORDERABLES Final Result Performing Organization Address [facility] Co de Phone Number [facility] [address] [place] [phone] * Type and screen (09/02/2024 10:50 AM EST) Blood Type ON [facility] Antibody Screen NEGATIVE [facility] 09/02/2024 10:5 0 AM EST 09/02/2024 11:08 AM EST Narrative [facility] - 09/05/2024 6:50 AM EST NURSING:Call Blood Bank ([phone]. [phone]) to band patient on admission.Type and Screen in effect until 2300 on 09/05/2024.Witnessed by DONNELL Results at Issue Units as of 09/04/24 0856 ...Test View Group: Most Recent Platelet CountNo results available. Results at Issue Units as of 09/04/24 0935 ...Test View Group: Most Recent Platelet CountNo results available. Plt <75,000Yes Generic External Data Provider LAB BLOOD BANK TE ST ORDERABLES Final Result Performing Organization Address [facility] Co de Phone Number [facility] [address] [place] [phone] * ECG 12 lead (08/05/2024 8:03 PM EST) Narrative Sonia Silva NP - 08/05/2024 8:03 PM EST 82 rate Sinus rhythm Sonia Silva NP ECG ORDERABLES Final Result * (ABNORMAL) Prothrombin Time-INR (08/05/2024 1:45 PM EST) Prothrombin Time 13.6(H) 10.9 - 12.4 SEC [facility] INTERNATIONAL NORM RATIO 1.2(H) 0.9 - 1.1 [facility] Comment:INTERNATIONAL NORMAL IZED RATIO (INR) REFERENCE RANGES Reference RangeFor patients not on anticoagulant therapy: 0.9 - 1.1INR ranges for oral anticoagulanttherapy:For prevention and treatment of venous thrombosis and pulmonary embolism: 2.0 - 3.0For acute myocardial infarction with aspirin therapy: 2.0 - 3.0For acute myocardial infarction without aspirin therapy: 3.0 - 4.0For patients with mechanical prosthetic heart valves: 2.5 - 3.5 Blood Venous blood specimen / Unknown 08/05/2024 1:45 PM EST 08/05/2024 4:07 PM EST Sonia Silva NP LAB BLOOD ORDERABLES Final Resul t Performing Organization Address [facility]/ZIP Co de Phone Number [facility] [address] [place] [phone] * Lipid Panel, Standard (04/06/2023 10:00 AM EDT) Triglycerides 94 mg/dL [facility] Comment:Desirable Triglyceri de: less than 150 mg/dLBorderline High Triglyceride 150-199 mg/dLHigh Triglyceride: 200-499 mg/dLVery High Triglyceride: greater than or equal to 5OO mg/dL Cholesterol 79 mg/dL [facility] Comment:Desirable Cholestero l: less than 200 mg/dLBorderline High Cholesterol: 200-239 mg/dLHigh Cholesterol: greater than 239 mg/dL LDL Cholesterol Calculated 36 mg/dl [facility] Comment:Desirable LDL: less than 100 mg/dLNear Optimal/Above Optimal LDL: 110- 129 mg/dLBorderline High LDL: 130-159 mg/dLHigh LDL: 160-189 mg/dLVery High LDL: greater than or equal to 190 mg/dL HDL Cholesterol 25 mg/dL [facility] Comment:Desirable HDL: great er than 40 mg/dL Note: This HDL assay may give artificially low results in patients with liver disease. Blood Venous blood specimen / Unknown 04/06/2023 10:00 AM EDT 04/06/2023 11:20 AM EDT [facility] LAB BLOOD ORDERABLES Final Resul t [facility] [address] [place] [phone] from Last 3 Months or Most Recently Relevant to Health Maintenance Insurance [facility] C3 HSN FULL Care Teams Porcelain Enamel Laborer Relationship Specialty Start Date End Date Leta Soto MD [address] [place] [phone] PCP - General Internal Medicine 04/11/23 Yajaira Antonio [address] [place] [address] 3rd [place] [address] Gastroenterology 09/04/24
--- OUTSIDE RECORDS SUMMARY | 2024-10-31 13:18 | XMS_ITS | Encounter Summary ---
Author Organization [employer] Address [address] [facility] 7 [place] [address] Care Team Providers Care Blockman Name Role Phone Leta Soto MD Primary Care Pro vider Yajaira Antonio Unavailable Reason for Visit * Reason Comments Transition Of Care (Tcm) HDF- Scheduled Encounter Details Date Type Department Care Team (Late st Contact Info) Description 10/22/2024 Patient Outreach [facility] MEDICINE [address] [place] [address] Leta Soto MD [address] [place] [address] Transition Of Care (Tcm) (HDF- Scheduled) Social History Tobacco Use Types Packs/Day Years [...] with others, in a hotel, in a correction, living outside on the street, on a [...] as of this encounter Miscellaneous Notes * Significant Event - Shania Hickman - 10/22/2024 12:20 PM EST 10/22/24 1158 Hospital Discharges and Ad[facility] Type of Visit Hospital Admission Date of Admission/Visit 10/08/24 Date of Discharge 10/16/24 Facility [facility] Diagnosis Hep c virus infection Disposition Discharged Home Follow-Up Actions Follow-Up Needed Provider appointment Follow-Up Outcome Spoke to Caregiver;Booked Appointment Initial Contact Date 10/22/24 ivan Posada outbound call to patient for HDF outreach. Patient's name and were confirmed by Edgardo and patient. Patient educated on the importance of follow up with provider following inpatient admission. Patient offered an HDF appt. Patient is agreeable to an appointment and has been scheduled for 11/03/24 at 9:30 Am with NP. Murguia. Insurance verified prior to scheduling. Patient advised to bring to appointment a photo id and insurance card. Patient provided with education on contacting the Health Center with any questions or concerns prior to the scheduled appointment. Patienteducated on extended clinic hours on Mondays and Wednesdays, and Walk-In Urgent Care Located in [facility] of [facility]. Patient provided with after-hours line for [facility], , which offer night time triage service and option to transfer to service control operator provider if needed. CC will request Discharge summary to be scanned into chart. documented in this encounter Plan of Treatment Upcoming Encounters Date Type Department Care Team (Late st Contact Info) Description 11/03/2024 9:30 AM EST Office Visit [facility] MEDICINE [address] [place], [place] [phone] Suzy Murguia NP [address] [place], [place] [phone] documented as of this encounter Goals Goal [...] documented as of this encounter Care Teams Blockman Relationship Specialty Start Date End Date Leta Soto MD [address] [place], [place] [phone] PCP - General Internal Medicine 04/11/23 Yajaira Antonio [address] [place] [address] Drive 3rd Floor [place], [place] [phone] Gastroenterology 09/04/24 documented as of this encounter
--- OUTSIDE RECORDS SUMMARY | 2024-10-31 13:18 | XMS_ITS | Encounter Summary ---
Author Organization [employer] Address [address] [facility] 7t [place] [address] Care Team Providers Care Food Mixer Name Role Phone Leta Soto MD Primary Care Pro vider Yajaira Antonio Unavailable Encounter Details Date Type Department Care Team (Late st Contact Info) Description 10/23/2024 Refill [facility] MEDICINE [address] [place] [address] Kelly Dick, PharmD [address] [place] [address] Social History Tobacco Use Types Packs/Day Years [...] with others, in a hotel, in a chcf, living outside on the street, on a [...] encounter Miscellaneous Notes * Telephone Encounter - Kelly Dick PharmD - 10/23/2024 1:56 PM EST Prescription for reduced dose of amlodipine needed in order to update Medboxes. Thank you! documented in this encounter Plan of Treatment Upcoming Encounters Date Type Department Care Team (Late st Contact Info) Description 11/03/2024 9:30 AM EST Office Visit [facility] MEDICINE [address] [place] [address] Suzy Murguia NP [address] [place] [address] documented as of this encounter Goals Goal [...] documented as of this encounter Care Teams Food Mixer Relationship Specialty Start Date End Date Leta Soto MD [address] [place] [phone] PCP - General Internal Medicine 04/11/[address]rd [place] [address] Gastroenterology 09/04/24 documented as of this encounter
--- OUTSIDE RECORDS SUMMARY | 2024-10-31 13:18 | XMS_ITS | Encounter Summary ---
Author Organization [employer] Address [address] [facility] 7t [place] [address] Care Team Providers Care Industrial X Ray Operator Name Role Phone Leta Soto MD Primary Care Pro vider Yajaira Antonio Unavailable Reason for Visit * Reason Onset Date Comments december recall 10/13/2024 Encounter Details Date Type Department Care Team (Late st Contact Info) Description 10/13/2024 Telephone [facility] MEDICINE [address] [place] [address] [place] december recall Social History Tobacco Use Types Packs/Day Years [...] with others, in a hotel, in a fci, living outside on the street, on a [...] encounter Miscellaneous Notes * Telephone Encounter - Nhung Caicedo [place] - 10/13/2024 11:24 AM EST T/C- Environmental Sampling Technician Left message to return call to schedule an appointment. Recall letter sent. Appointment: Office Visit Extended Note: WT & BP Month: December With: Yuriy Please schedule appointment if Patient calls Back. documented in this encounter Plan of Treatment Upcoming Encounters Date Type Department Care Team (Late st Contact Info) Description 11/03/2024 9:30 AM EST Office Visit [facility] MEDICINE [address] [place] [address] Suzy Murguia NP [address] [place] [address] documented as of this encounter Goals Goal [...] documented as of this encounter Care Teams Industrial X Ray Operator Relationship Specialty Start Date End Date Leta Soto MD [address] [place] [phone] PCP - General Internal Medicine 04/11/23 Yajaira Antonio [address] [place] [address] 3rd [place] [address] Gastroenterology 09/04/24 documented as of this encounter
--- OUTSIDE RECORDS SUMMARY | 2024-10-31 13:18 | XMS_ITS | Encounter Summary ---
Author Organization [employer] Address [address] [facility] 7 [place] [address] Care Team Providers Care Bag Filler Machine Operator Name Role Phone Leta Soto MD Primary Care Pro vider PacoYajaira Unavailable Reason for Visit * Reason Comments Med Refill Encounter Details Date Type Department Care Team (Late st Contact Info) Description 10/28/2024 Refill [facility] MEDICINE [address] [place] [address] Leta Soto MD [address] [place], [place] [phone] Social History Tobacco Use Types Packs/Day Years [...] with others, in a hotel, in a intermediate, living outside on the street, on a [...] as of this encounter Plan of Treatment Upcoming Encounters Date Type Department Care Team (Late st Contact Info) Description 11/03/2024 9:30 AM EST Office Visit [facility] MEDICINE [address] [place], [place] [phone] Suzy Murguia NP [address] [place] [address] documented as of this encounter Goals Goal [...] documented as of this encounter Care Teams Bag Filler Machine Operator Relationship Specialty Start Date End Date Leta Soto MD [address] [place] [address] PCP - General Internal Medicine 8/2/23 Yajaira Antonio [address] 3rd Floor [place], [place] [phone] Gastroenterology 09/04/24 documented as of this encounter
--- OUTSIDE RECORDS SUMMARY | 2024-10-31 13:18 | XMS_ITS | Encounter Summary ---
Author Organization [employer] Address [address] [facility] 7t [place] [address] Care Team Providers Care Specialty Manufacturing Supervisor Name Role Phone Leta Soto MD Primary Care Pro vider Yajaira Antonio Unavailable Encounter Details Date Type Department Care Team (Late st Contact Info) Description 12/17/2023 Orders Only [facility] CH[facility] MED & PEDS [address] [place] [address] Tatyana Mosquera FNP [address] [place] [address] Social History Tobacco Use Types Packs/Day Years [...] with others, in a hotel, in a retirement, living outside on the street, on a [...] Description 11/03/2024 9:30 AM EST Office Visit [facility] MEDICINE [address] [place], [place] [phone] Suzy Murguia NP [address] [place] [address] documented as of this encounter Goals Goal [...] documented as of this encounter Care Teams Specialty Manufacturing Supervisor Relationship Specialty Start Date End Date Leta Soto MD [address] [place] [address] PCP - General Internal Medicine 04/11/23 Yajaira Antonio [address]rd [place] [address] Gastroenterology 09/04/24 documented as of this encounter
--- OUTSIDE RECORDS SUMMARY | 2024-10-31 13:18 | XMS_ITS | Encounter Summary ---
Author Organization [employer] Address [address] [facility] 7t [place] [address] Care Team Providers Care Display Artist Name Role Phone Leta Soto MD Primary Care Pro vider Yajaira Antonio Unavailable Encounter Details Date Type Department Care Team (Late st Contact Info) Description 10/22/2024 Telephone [facility] MEDICINE [address] [place] [address] Kelly Dick, PharmD [address] [place] [address] Social History Tobacco Use Types Packs/Day Years [...] with others, in a hotel, in a custodial, living outside on the street, on a [...] Telephone Encounter - Kelly Dick PharmD - 10/22/2024 11:37 AM EST Please assist in outreaching patient to scheduled HDF appointment. Patient has given permission to speak with his granddaughter to schedule. Please contact Edgardo at [phone]. Thank you documented in this encounter Plan of Treatment Upcoming Encounters Date Type Department Care Team (Late st Contact Info) Description 11/03/2024 9:30 AM EST Office Visit [facility] MEDICINE [address] [place] [address] Suzy Murguia NP [address] [place] [address] documented as of this encounter Goals Goal [...] documented as of this encounter Care Teams Display Artist Relationship Specialty Start Date End Date Leta Soto MD [address] [place] [address] PCP - General Internal Medicine 04/11/23 Yajaira Antonio [address] [place] [address] 3rd [place] [address] Gastroenterology 09/04/24 documented as of this encounter
--- OUTSIDE RECORDS SUMMARY | 2024-10-31 13:18 | XMS_ITS | Encounter Summary ---
Author Organization [employer] Address [address] [facility] 7t [place] [address] Care Team Providers Care Central Stores Attendant Name Role Phone Leta Soto MD Primary Care Pro vider Yajaira Antonio Unavailable Encounter Details Date Type Department Care Team (Late st Contact Info) Description 10/08/2024 Orders Only [facility] External Provider, [facility] Social History Tobacco Use Types Packs/Day Years [...] with others, in a hotel, in a skilled nursing, living outside on the street, on a [...] as of this encounter Miscellaneous Notes * Result Encounter Note - SUMA Chisholm - 10/08/2024 9:43 PM EST Please check that patient has recall in place for PCP visit (30min extended) for decompensated portal hypertension for Mid-late December. thanks * Result Encounter Note - SUMA Chisholm - 10/08/2024 9:43 PM EST Patient currently admitted at [facility] for sepsis, spontaneous bacterial peritonitis, cirrhosis documented in this encounter Plan of Treatment Upcoming Encounters Date Type Department Care Team (Late st Contact Info) Description 11/03/2024 9:30 AM EST Office Visit [facility] MEDICINE [address] [place] [address] Suzy Murguia NP [address] [place] [address] documented as of this encounter Goals Goal Patient Goal Type Associated Problems Recent Progress Patient-Stated? Author Blood Pressure < 140/90 Blood Pressure 149/78(2023 1:02 PM EST) No Loan Talbot Record your blood pressure once per day Blood Pressure No Loan Talbot documented as of this encounter Procedures Procedure Name Priority Date/Time Associated Diagnosis Comments XR CHEST 2 VIEWS Routine 10/28/2024 6:02 PM EST IR TIPS INSERTION Routine 10/15/2024 1:3 0 PM EST US ABDOMEN LIMITED Routine 10/09/2024 12 :24 PM EST HIGH SENSITIVITY TROPONIN I Routine 10/08/2024 10:20 PM EST XR CHEST 1 VIEW Routine 10/08/2024 9:[address] ABDOMEN PELVIS W CONTRAST Routine 10/08/2024 9:40 PM EST documented in this encounter Results * XR Chest 2 Views (10/28/2024 6:02 PM EST) Anatomical Region Laterality Modality Chest Radiographic Susy ging 10/28/2024 6:02 PM EST Narrative 10/28/2024 6:05 PM EST ? [facility] ?[address] ?[place] [address] ?XRay Report ? Signed ? Patient: Adelso Beebe ?MR#: [id number] ?? [id number] ? : 1960 ?Acct:[id number] ? Age/Sex: 63 / M ?ADM Date: 10/28/24 ? Loc: HO.ED ? Attending Dr: ? Ordering Physician: Venice Morrison CNP ?? Date of Service: 10/28/24 ?? Procedure(s): XR chest 2V ?? Accession Number(s): [id number] ? cc: Venice Morrison CNP; eLta Soto MD ? CLINICAL HISTORY: chest pain [...] by Larissa Roth MD in OV> ? 10/28/244 ? DD/ 01 ? TD/TT: 10/28/24 1802 ? Scada Engineer: ? Procedure Note Leelater, Image - 10/28/[address] [address] XRay Report Signed Patient: Adelso BeebeMR#: [id number] : 1960cct:[id number] Age/Sex: 63 / MADM Date: 10/28/24 Loc: HO.ED Attending Dr: Ordering Physician: Venice Morrison CNP Date of Service: 10/28/24 Procedure(s): XR chest 2V Accession Number(s): [id number] cc: Venice Morrison CNP; Leta Soto MD [...] signed by Larissa Roth MD in OV> 10/28/24 180 DD/ 180 TD/TT: 10/28/241801 Scada Engineer: us [facility] External Provider IMG XR PROCEDURES Edited Result - Final * IR TIPS insertion (10/15/2024 1:30 PM EST) Anatomical Region Laterality Modality X-Ray Angiograph y 10/15/2024 1:30 PM EST Narrative 10/15/2024 4:32 PM EST ? [facility] ?[address] ?[place] [address] ?Interventional Radiology Rpt ? Signed ? Patient: Godfrey Mcmanus,Adelso ?MR#: [id number] ?? [id number] ? : 1960 ?Acct:[id number] ? Age/Sex: 63 / M ?ADM Date: 01/29/25 ? Loc: HO.ICU ?252-1 ? Attending Dr: Zana Spear MD ? Ordering Physician: Yajaira Antonio MD ?? Date of Service: 10/15/24 ?? Procedure(s): IR TIPS insertion ?? Accession Number(s): [id number] ? cc: Leta Soto MD; Yajaira Antonio [...] was advanced to the IVC. A 10 Micronesian sheath was placed. ?? A hockey-stick catheter was used to catheterize the right hepatic vein. ?? This was confirmed with venography. The sheath was then advanced into ?? the right hepatic vein. A [employer] TIPS set was then used to gain [...] obtained. An 8 mm x 8 cm Dellroy Viatorr TIPS was ?? then deployed from the hepatic vein to the portal vein. The TIPS stent ?? was postdilated with an 8 mm CUFF MAKER balloon. Portal venogram demonstrates ?? wide patency [...] DD/ 1330 ? TD/TT: 10/15/24 1625 ? Scada Engineer: ? Procedure Note Mehreen Blackman - 10/16/2024 [place] [address] Interventional Radiology Rpt Signed Patient: Adelso BeebeMR#: [id number] : 1960cct:[id number] Age/Sex: 63 / MADM Date: 10/08/24 Loc: .[facility] 252-[address]: Zana Spear MD Ordering Physician: Yajaira Antonio MD Date of Service: 10/15/24 Procedure(s): IR TIPS insertion Accession Number(s): [id number] cc: Leta Soto MD; Yajaira Antoino MD Procedure: TIPS placement HISTORY/INDICATION: Cirrhosis, portal [...] was advanced to the IVC. A 10 Micronesian sheath was placed. A hockey-stick catheter was used to catheterize the right hepatic vein. This was confirmed with venography. The sheath was then advanced into the right hepatic vein. A [employer] TIPS set was then used to gain [...] obtained. An 8 mm x 8 cm Dellroy Viatorr TIPS was then deployed from the hepatic vein to the portal vein. The TIPS stent was postdilated with an 8 mm CUFF MAKER balloon. Portal venogram demonstrates wide patency of [...] 10/15/24 1630 DD/ 1330 TD/TT: 10/15/24 1625 Scada Engineer: [facility] External Provider IMG IR PROCEDURES Edited Result - Final * US Abdomen Limited (10/09/2024 12:24 PM EST) Anatomical Region Laterality Modality Abdomen Ultrasound 10/09/2024 12:2 4 PM EST Narrative 10/09/2024 12:25 PM EST ? [facility] ?[address] ?[place] [address] ? Ultrasound Report ? Signed ? Patient: Godfrey McmanusAdelso ?MR#: [id number] ?? [id number] ? : 1960 ?Acct:[id number] ? Age/Sex: 63 / M ?ADM Date: 10/08/24 ? Loc: HO.EDOVER ?MEDSURG-5 ? Attending Dr: Faustino Madsen MD ? Ordering Physician: Lobo Whiting MD ?? Date of Service: 10/09/24 ?? Procedure(s): US abdomen limited ?? Accession Number(s): [id number] ? cc: Lobo Whiting MD; Leta Soto [...] DD/ 1224 ? TD/TT: 10/09/24 1224 ? Scada Engineer: ? Procedure Note Hiral, Mehreen - 10/09/[address] [address] Ultrasound Report Signed Patient: Adelso BeebeMR#: [id number] : 2Acct:[id number] Age/Sex: 63 / MADM Date: 10/08/24 [facility]: Faustino Madsen MD Ordering Physician: Lobo Whiting MD Date of Service: 10/09/24 Procedure(s): US abdomen limited Accession Number(s): [id number] cc: Lobo Whiting MD; Leta Soto MD [...] 10/09/24 1224 DD/ 1224 TD/TT: 10/09/24 1224 Scada Engineer: us [facility] External Provider IMG US PROCEDURES Final Result * High Sensitivity Troponin I (10/08/2024 10:20 PM EST) TROPONIN I HIGH SENSITIVITY 7.3 <3.5 - 35.0 ng/L [facility] Comment:The Clifford high sens itivity Troponin-I results should beused in conjunction with other diagnostic information suchas ECG, clinical observations and information, and patientsymptoms to aid in the diagnosis of PA. 10/08/2024 10:2 0 PM EST 10/08/2024 10:23 PM EST us Generic External Data Provider LAB BLOOD ORDERAB LES Final Result [facility] [address] [place] [address] [phone] * XR Chest 1 View (10/08/2024 9:42 PM EST) Anatomical Region Laterality Modality Chest Radiographic Susy ging 10/08/2024 9:42 PM EST Narrative 10/08/2024 9:43 PM EST ? [facility] ?[address] ?[place] [address] ?XRay Report ? Signed ? Patient: Godfrey Mcmanus,Adelso ?MR#: [id number] ?? [id number] ? : 1960 ?Acct:[id number] ? Age/Sex: 63 / M ?ADM Date: 10/08/24 ? Loc: HO.ED ? Attending Dr: ? Ordering Physician: Bhavana Christensen ?? Date of Service: 10/08/24 ?? Procedure(s): XR chest 1V ?? Accession Number(s): [id number] ? cc: Bhavana Christensen; Leta Soto MD ? CLINICAL HISTORY: htn ? 1 view chest x-ray ? Comparison: CR/SR - XR CHEST 1V - 03/30/24 12:39 EDT ? Findings: ?? [...] ? DD/ 41 ? TD/TT: 10/08/242141 ? Scada Engineer: ? Procedure Note Hiral, Mehreen - 10/08/[address] [address] XRay Report Signed Patient: Adelso BeebeMR#: [id number] : 2Acct:[id number] Age/Sex: 63 / MADM Date: 10/08/24 Loc: HO.ED Attending Dr: Ordering Physician: Bhavana Christensen Date of Service: 10/08/24 Procedure(s): XR chest 1V Accession Number(s): [id number] cc: Bhavana Christensen; Leta Soto MD CLINICAL [...] in OV> 10/08/242142 DD/ 41 TD/TT: 10/08/242141 Scada Engineer: [facility] External Provider IMG XR PROCEDURES Edited Result - Final * CT Abdomen Pelvis w/ Contrast (10/08/2024 9:40 PM EST) Anatomical Region Laterality Modality Body, Pelvis, Abdomen Computed T omography 10/08/2024 9:40 PM EST Narrative 10/08/2024 9:42 PM EST ? [facility] ?[address] ?[place] [address] ? CT Scan Report ? Signed ? Patient: Godfrey McmanusAdelso ?MR#: [id number] ?? [id number] ? : 1960 ?Acct:[id number] ? Age/Sex: 63 / M ?ADM Date: 10/08/24 ? Loc: HO.ED ? Attending Dr: ? Ordering Physician: Bhavana Christensen ?? Date of Service: 01/29/25 ?? Procedure(s): CT abdomen pelvis w IV con ?? Accession Number(s): [id number] ? cc: Bhavana Christensen; Leta Soto MD ? Report Number: ?? [id number]: Total DLP = ??743.00 mGy-cm ? CLINICAL HISTORY: pain, divertic? CT abdomen and pelvis with contrast ? Comparison: CT/[place]/SR - CT ABDOMEN PELVIS W IV CON - 05/26/24 19:26 EDT ? Findings: ?? Mild atelectasis at the lung bases. ?? Distal esophageal wall thickening is again noted with increased ?? paraesophageal edema. ? Increased burden of thrombus at the confluence of distal splenic vein and ?? main portal vein. Most evident on image 39 versus prior image 35. ?? Otherwise, the portal venous system, and mesenteric venous system remains ?? patent. ?? The mesenteric and renal arteries remain patent. ?? Significant fat stranding around the proximal inferior mesenteric artery ?? is unchanged and of uncertain etiology. ? Findings of decompensated portal hypertension include small amount of ?? ascites, massive splenomegaly, large main portal vein, recanalized ?? umbilical vein collateral, and gastroesophageal varices. ?? Small right superior renal cyst. ?? Gallbladder and solid organs otherwise unremarkable. No urolithiasis. ? Small umbilical hernia contains fat and umbilical vein collateral. ?? No bowel obstruction, pneumoperitoneum, or pneumatosis. ?? Normal appendix. ?? No acute fracture. ? Impression: ?? 1. Increased thrombus at the confluence of splenic and main portal veins. ?? This results in up to 75 percent stenosis at the distal splenic vein, and ?? no more than 50 percent stenosis of the main portal vein. ?? 2. Findings of decompensated portal hypertension including new ascites. ?? 3. Distal esophageal wall thickening in periesophageal edema has increased ?? since the prior exam. ?? 4. Additional findings as above. ? This document has been electronically signed by: Raghu Quezada, ?? on 10/08/2024 21:40:31 ? Dictated By: ?Raghu Quezada MD ? Signed By: ?<Electronically signed by Raghusunil Quezada MD in OV> ?10/08/242141 ? DD/ 39 ? TD/TT: 10/08/242139 ? Scada Engineer: ? Procedure Note Mehreen Blackman - 10/08/[address] [address] [address] Scan Report Signed Patient: Godfrey McmanusAdelso#: [id number] : 2Acct:[id number] Age/Sex: 63 / MADM Date: 10/08/24 Loc: HO.ED Attending Dr: Ordering Physician: Bhavana Christensen Date of Service: 10/08/24 Procedure(s): CT abdomen pelvis w IV con Accession Number(s): [id number] cc: Bhavana Christensen; Leta Soto MD Report Number: [id number]: Total DLP = 743.00 mGy-cm CLINICAL HISTORY: pain, divertic? CT abdomen and pelvis with contrast Comparison: CT/[place]/SR - CT ABDOMEN PELVIS W IV CON - 05/26/24 19:26 EDT Findings: Mild atelectasis at the lung bases. Distal esophageal wall thickening is again noted with increased paraesophageal edema. Increased burden of thrombus at the confluence of distal splenic vein and main portal vein. Most evident on image 39 versus prior image 35. Otherwise, the portal venous system, and mesenteric venous system remains patent. The mesenteric and renal arteries remain patent. Significant fat stranding around the proximal inferior mesenteric artery is unchanged and of uncertain etiology. Findings of decompensated portal hypertension include small amount of ascites, massive splenomegaly, large main portal vein, recanalized umbilical vein collateral, and gastroesophageal varices. Small right superior renal cyst. Gallbladder and solid organs otherwise unremarkable. No urolithiasis. Small umbilical hernia contains fat and umbilical vein collateral. No bowel obstruction, pneumoperitoneum, or pneumatosis. Normal appendix. No acute fracture. Impression: 1. Increased thrombus at the confluence of splenic and main portal veins. This results in up to 75 percent stenosis at the distal splenic vein, and no more than 50 percent stenosis of the main portal vein. 2. Findings of decompensated portal hypertension including new ascites. 3. Distal esophageal wall thickening in periesophageal edema has increased since the prior exam. 4. Additional findings as above. This document has been electronically signed by: Raghu Quezada MD on 10/08/2024 21:40:31 Dictated By: Raghu Quezada MD Signed By: <Electronically signed by Raghu Quezada MD in OV> 10/08/242141 DD/ 39 TD/TT: 10/08/242139 Scada Engineer: [facility] External Provider IMG CT PROCEDURES Edited Result - Final documented in this encounter Visit Diagnoses Not on filedocumented in this encounter Additional Health Concerns Assessment Noted Time PHQ-9 Depression Total Score: 18 023 11:23 AM EDT documented as of this encounter Care Teams Central Stores Attendant Relationship Specialty Start Date End Date Leta Soto MD [address] [place] [address] PCP - General Internal Medicine 04/11/23 Yajaira Antonio [address] [place] [address] Drive 3rd [place] [address] Gastroenterology 09/04/24 documented as of this encounter
--- OUTSIDE RECORDS SUMMARY | 2024-10-31 13:18 | XMS_ITS | Encounter Summary ---
Author Organization [employer] Address [address] [facility] 7t [place] [address] Care Team Providers Care Alpine Patroller Name Role Phone Leta Soto MD Primary Care Pro vider Yajaira Antonio Unavailable Encounter Details Date Type Department Care Team (Late st Contact Info) Description 10/28/2024 Orders Only GENERIC EXTERNAL DATA DEPARTMENT Provider, Generic External Data Social History Tobacco Use Types Packs/Day Years [...] with others, in a hotel, in a half-way, living outside on the street, on a [...] Description 11/03/2024 9:30 AM EST Office Visit [facility] MED[facility] [address] [place] [address] Suzy Murguia NP [address] [place] [address] documented as of this encounter Goals Goal [...] TROPONIN I Routine 10/28/2024 7:29 PM EST documented in this encounter Results * CT Abdomen Pelvis w/ Contrast (10/28/2024 9:08 PM EST) Anatomical Region Laterality Modality Body, Pelvis, Abdomen Computed T omography 10/28/2024 9:08 PM EST Narrative 10/28/2024 9:10 PM EST ? [facility] ?[address] ?[place] [address] ? CT Scan Report ? Signed ? Patient: Godfrey Mcmanus,Adelso ?MR#: [id number] ?? [id number] ? : 1960 ?Acct:[id number] ? Age/Sex: 63 / M ?ADM Date: 10/28/24 ? Loc: HO.ED ? Attending Dr: ? Ordering Physician: Venice Morrison CNP ?? Date of Service: 10/28/24 ?? Procedure(s): CT abdomen pelvis w IV con ?? Accession Number(s): [id number] ? cc: Venice Morrison CNP; Leta Soto MD ? Report Number: ?? [id number]: Total DLP = ??687.00 mGy-cm ? CLINICAL [...] fat and recanalized small umbilical vein. ?? Gxwq-ka-keivqybs colonic stool and moderate rectal stool. ?? [...] portal vein and splenic vein. ?? 3. Xvzx-se-ncxpslmz colonic stool and moderate rectal stool. ?? 4. Additional stable findings as described. ? This document has been electronically signed by: Daphne Jensen MD on ?? 10/28/2024 21:08:32 ? Dictated By: ?Daphne Jensen MD ? Signed By: ?<Electronically signed by Daphne Jensen MD in OV> ? 10/28/242108 ? DD/ 07 ? TD/TT: 10/28/242107 ? Adventure Guide: ? Procedure Note Donotuseinterpreter, Image - 10/28/[address] [address] [address] Scan Report Signed Patient: Adleso BeebeMR#: [id number] : 1960cct:[id number] Age/Sex: 63 / MADM Date: 10/28/24 Loc: HO.ED Attending Dr: Ordering Physician: Venice Morrison CNP Date of Service: 10/28/24 Procedure(s): CT abdomen pelvis w IV con Accession Number(s): [id number] cc: Venice Morrison CNP; Leta Soto MD Report Number: [id number]: Total DLP = 687.00 mGy-cm CLINICAL HISTORY: [...] hernia containing fat and recanalized small umbilicalvein. Ynfl-md-vbdvtoau colonic stool and moderate rectal stool. Prostate [...] of portal vein and splenic vein. 3. Mbmi-pl-bgtmrmwr colonic stool and moderate rectal stool. 4. Additional stable findings as described. This document has been electronically signed by: Daphne Jensen MD on 10/28/2024 21:08:32 Dictated By: Daphne Jensen MD Signed By: <Electronically signed by Daphne Jensen MD in OV> 10/28/242108 DD/ 07 TD/TT: 10/28/242107 Adventure Guide: [facility] External Provider IMG CT PROCEDURES Edited Result - Final * High Sensitivity Troponin I (10/28/2024 7:29 PM EST) TROPONIN I HIGH SENSITIVITY 5.2 <3.5 - 35.0 ng/L [facility] Comment:The Clifford high sens itivity Troponin-I results should beused in conjunction with other diagnostic information suchas ECG, clinical observations and information, and patientsymptoms to aid in the diagnosis of VA. 10/28/2024 7:29 PM EST 10/28/2024 7:32 PM EST Generic External Data Provider LAB BLOOD ORDERAB LES Final Result [facility] [address] [place] [address] [phone] documented in this encounter Visit Diagnoses Not on filedocumented in this encounter Additional Health Concerns Assessment Noted Time PHQ-9 Depression Total Score: 18 023 11:23 AM EDT documented as of this encounter Care Teams Alpine Patroller Relationship Specialty Start Date End Date Leta Soto MD [address] [place] [address] PCP - General Internal Medicine 04/11/23 Yajaira Antonio [address] 3rd Floor [place] [address] Gastroenterology 09/04/24 documented as of this encounter
== END 2024-10-31 13:24 | disposition home or self-care (01) ==
PROVIDERS: PCP Student in an Organized Health Care Education/Training Program; Visit Provider Internal Medicine
DX: B18.2 Chronic viral hepatitis C (principal); R76.8 Other specified abnormal immunological findings in serum; K74.60 Unspecified cirrhosis of liver; D13.1 Benign neoplasm of stomach; I85.00 Esophageal varices without bleeding; Z95.828 Presence of other vascular implants and grafts; I81 Portal vein thrombosis; M54.9 Dorsalgia, unspecified; W19.XXXA Unspecified fall, initial encounter
CPT/HCPCS: 99214

== ENCOUNTER → 2024-10-31 12:48 | Outpatient (BNVA) | payer MEDICAID, SELFPAY | PROVIDERS: PCP Student in an Organized Health Care Education/Training Program; Visit Provider Internal Medicine | DX: K74.60 Unspecified cirrhosis of liver (principal); B18.2 Chronic viral hepatitis C; W00.0XXA Fall on same level due to ice and snow, initial encounter; M54.9 Dorsalgia, unspecified; R76.8 Other specified abnormal immunological findings in serum; D13.1 Benign neoplasm of stomach; I85.00 Esophageal varices without bleeding; I81 Portal vein thrombosis; Z95.828 Presence of other vascular implants and grafts | CPT/HCPCS: 99212 ==

== ENCOUNTER 2024-10-31 13:33 | Outpatient (REF) | payer MEDICAID, SELFPAY ==
--- NOTE | ~2024-10-31 | XR_ITS ---
CLINICAL HISTORY: W19.XXXA - Unspecified fall, initial encounter 3 views thoracic spine Comparison: None Findings: Limited visualization of the upper thoracic spine. No definite fracture or malalignment. Mild multilevel degenerative changes. IMPRESSION: No acute findings. Limited study as detailed. This document has been electronically signed by: Esdras Lopez MD on 11/03/2024 13:05:56
--- NOTE | ~2024-10-31 | XR_ITS ---
CLINICAL HISTORY: M54.9 - Dorsalgia, unspecified 3 views lumbar spine Comparison: None Findings: No acute fracture or acute malalignment. Near-complete disc space loss at L5-S1. Mild facet hypertrophy within the lower lumbar spine. Portion of a tips noted. IMPRESSION: No acute findings. Degenerative changes most pronounced at L5-S1. This document has been electronically signed by: Esdras Lopez MD on 11/03/2024 12:26:12
--- OUTSIDE RECORDS SUMMARY | 2024-10-31 14:05 | XMS_ITS | Encounter Summary ---
Author Organization [employer] Address [address] [facility] 7t [place] [address] Care Team Providers Care Mine Laborer Name Role Phone Leta Soto MD Primary Care Pro vider Yajaira Antonio Unavailable Reason for Visit * Reason Onset Date Comments MAILROOM SUPERVISOR Services 10/22/2024 The patient requ ested MAILROOM SUPERVISOR services. I called to ask what ADLs he needs assistance with, and he stated that he is unable to talk at this time, and asked for me to call back at about 10:30 today. Yong MAILROOM SUPERVISOR Services 10/22/2024 I called the patient regarding his request for MAILROOM SUPERVISOR services. I asked what ADLs he needs assistance with, and he asked me to speak with Jonathan. Jonathan stated that he needs assistance with bathing, getting dressed, medications, housekeeping, cooking, and going to appointments. She stated that if he is approved, she will be his MAILROOM SUPERVISOR. I informed her that once he is referred, he will be receiving a call from Yong, to set up an evaluation. She requested for Yong to call her, because sometimes the pa Encounter Details Date Type Department Care Team (Late st Contact Info) Description 10/22/2024 Telephone [facility] [address] [place] [address] Leta Soto MD [address] [place] [address] MAILROOM SUPERVISOR Services (The patient requested MAILROOM SUPERVISOR services. I called to ask what ADLs he needs assistance with, and he stated that he is unable to talk at this time, and asked for me to call back at about 10:30 today.); Yong MAILROOM SUPERVISOR Services (I called the patient regarding his request for MAILROOM SUPERVISOR services. I asked what ADLs he needs assistance with, and he asked me to speak with Jonathan. Jonathan stated that he needs assistance with bathing, getting dressed, medications, housekeeping, cooking, and going to appointments. She stated that if he is approved, she will be his MAILROOM SUPERVISOR. I informed her that once he is [...] with others, in a hotel, in a assisted, living outside on the street, on a [...] called the patient regarding his request for MAILROOM SUPERVISOR services. I asked what ADLs he needs assistance with, and he asked me to speak with Ferminbeny. Jonathan stated that he needs assistance with bathing, getting dressed, medications, housekeeping, cooking, and going to appointments. She stated that if heis approved, she will be his MAILROOM SUPERVISOR. I informed her that once he is referred, he will be receiving a call from [facility], to set up an evaluation. She requested for [facility] to call her, because sometimes the patient does not know how to respond to questions. I informed her that due to confidentiality, they would need an authorization from him, in order for them to speak with her. She verbalized understanding. * Telephone Encounter - Mariia Donahue MA - 10/22/2024 10:06 AM EST The patient requested MAILROOM SUPERVISOR services. I called to ask what ADLs he needs assistance with, and he stated that he is unable to talk at this time, and asked for me to call back at about 10:30 today. documented in this encounter Plan of Treatment Upcoming Encounters Date Type Department Care Team (Late st Contact Info) Description 11/03/2024 9:30 AM EST Office Visit [facility] [address] [place] [address] Suzy Murguia NP [address] [place] [address] documented as of this encounter Goals Goal [...] documented as of this encounter Care Teams Mine Laborer Relationship Specialty Start Date End Date Leta Soto MD [address] [place] [address] PCP - General Internal Medicine 04/11/23 Yajaira Antonio [address] [place] [address] 3rd [place] [address] Gastroenterology 09/04/24 documented as of this encounter
--- OUTSIDE RECORDS SUMMARY | 2024-10-31 14:05 | XMS_ITS | Encounter Summary ---
Author Organization [employer] Address [address] [facility] 7t [place] [address] Care Team Providers Care Coordinate Measuring Machine Programmer Name Role Phone Leta Soto MD Primary Care Pro vider Yajaira Antonio Unavailable Encounter Details Date Type Department Care Team (Late st Contact Info) Description 12/17/2023 Orders Only [facility] [address] [place] [address] Tatyana Mosquera FNP [address] [place] [address] Social History Tobacco Use Types Packs/Day Years [...] Description 11/03/2024 9:30 AM EST Office Visit [facility] [address] [place], [place] [phone] Suzy Murguia NP [address] [place] [address] documented as of this encounter Goals Goal [...] documented as of this encounter Care Teams Coordinate Measuring Machine Programmer Relationship Specialty Start Date End Date Leta Soto MD [address] [place] [address] PCP - General Internal Medicine 04/11/23 Yajaira Antonio [address] 3rd [place] [address] Gastroenterology 09/04/24 documented as of this encounter
--- OUTSIDE RECORDS SUMMARY | 2024-10-31 14:05 | XMS_ITS | Encounter Summary ---
Author Organization [employer] Address [address] [facility] 7t [place] [address] Care Team Providers Care Trouble Lineman Name Role Phone Leta Soto MD Primary [...] with others, in a hotel, in a jail, living outside on the street, on a [...] Description 11/03/2024 9:30 AM EST Office Visit [facility] [address] [place] [address] Suzy Murguia NP 230 [place] [address] documented as of this encounter Goals Goal [...] EST Narrative 10/28/2024 9:10 PM EST ? [facility] ?[address] ?[place] [address] ? CT Scan Report ? Signed ? Patient: Godfrey Mcmanus,Adelso ?MR#: [id number] ?? [id number] ? : 1960 ?Acct:[id number] ? Age/Sex: 63 / M ?ADM Date: 10/28/24 ? Loc: HO.ED ? Attending Dr: ? Ordering Physician: Venice Morrison CNP ?? Date of Service: 10/28/24 ?? Procedure(s): CT abdomen pelvis w IV con ?? Accession Number(s): [id number] ? cc: Venice Morrison CNP; Leta Soto MD ? Report Number: ?? [id number]: Total DLP = ??687.00 mGy-cm ? CLINICAL [...] fat and recanalized small umbilical vein. ?? Spga-pv-xflwjrlw colonic stool and moderate rectal stool. ?? [...] portal vein and splenic vein. ?? 3. Fosv-gl-uxdgeksb colonic stool and moderate rectal stool. ?? 4. Additional stable findings as described. ? This document has been electronically signed by: Daphne Jensen MD on ?? 10/28/2024 21:08:32 ? Dictated By: ?Daphne Jensen MD ? Signed By: ?<Electronically signed by Daphne Jensen MD in OV> ? 10/28/242108 ? DD/ 07 ? TD/TT: 10/28/242107 ? [employer] Senior Officer: ? Procedure Note Donotuseinterpreter, Image - 10/28/[address] [address] [address] Scan Report Signed Patient: Adelso BeebeMR#: [id number] : 1960cct:[id number] Age/Sex: 63 / MADM Date: 10/28/24 Loc: HO.ED Attending Dr: Ordering Physician: Venice Morrison CNP Date of Service: 10/28/24 Procedure(s): CT abdomen pelvis w IV con Accession Number(s): [id number] cc: Venice Morrison CNP; Leta Soto MD Report Number: [id number]: Total DLP = 687.00 mGy-cm CLINICAL HISTORY: [...] hernia containing fat and recanalized small umbilicalvein. Acaf-gl-okaggldc colonic stool and moderate rectal stool. Prostate [...] of portal vein and splenic vein. 3. Kryy-ky-pnprnmci colonic stool and moderate rectal stool. 4. Additional stable findings as described. This document has been electronically signed by: Daphne Jensen MD on 10/28/2024 21:08:32 Dictated By: Daphne Jensen MD Signed By: <Electronically signed by Daphne Jensen MD in OV> 10/28/242108 DD/ 07 TD/TT: 10/28/242107 [employer] Senior Officer: [facility] External Provider IMG CT PROCEDURES Edited Result - Final * High Sensitivity Troponin I (10/28/2024 7:29 PM EST) TROPONIN I HIGH SENSITIVITY 5.2 <3.5 - 35.0 ng/L [facility] Comment:The Clifford high sens itivity Troponin-I results should beused in conjunction with other diagnostic information suchas ECG, clinical observations and information, and patientsymptoms to aid in the diagnosis of PA. 10/28/2024 7:29 PM EST 10/28/2024 7:32 PM EST Generic External Data Provider LAB BLOOD ORDERAB LES Final Result [facility] [address] [place] [address] [phone] documented in this encounter Visit Diagnoses Not on filedocumented in this encounter Additional Health Concerns Assessment Noted Time PHQ-9 Depression Total Score: 18 023 11:23 AM EDT documented as of this encounter Care Teams Trouble Lineman Relationship Specialty Start Date End Date Leta Soto MD [address] [place] [address] PCP - General Internal Medicine 04/11/23 Yajaira Antonio [address] 3rd Floor [place] [address] Gastroenterology 09/04/24 documented as of this encounter
--- OUTSIDE RECORDS SUMMARY | 2024-10-31 14:05 | XMS_ITS | Clinical Summary ---
Author Organization [employer] Address [address] [facility] 7t [place] [address] Care Team Providers Care Qa Auditor Name Role Phone Leta Soto MD Primary [...] his advocate PLAN: 1. Follow up with [facility]: Not recommended for follow-up 2. Patient goal is be connected to services 3. Behavioral Recommendations a. Patient will engage in service once established b. Patient may return to [facility] for medical needs until a PCP is [...] DEPARTMENT Provider, Generic External Data 10/28/2024 Refill [facility] [address] [place] [address] Leta Soot MD 10/23/2024 Refill [facility] [address] [place] [address] Kelly Dick, PharmD 10/22/2024 Patient Outreach [facility] [address] [place] [address] Leta Soto MD Transition Of Care (Tcm) (HDF- Scheduled) 10/22/2024 Telephone [facility] [address] [place] [address] Kelly Dick, PharmD 10/22/2024 Telephone [facility] [address] [place] [phone] Leta Soto MD STEAM TURBINE ASSEMBLER Services (The patient requested STEAM TURBINE ASSEMBLER services. I called to ask what ADLs he needs assistance with, and he stated that he is unable to talk at this time, and asked for me to call back at about 10:30 today.); Yong STEAM TURBINE ASSEMBLER Services (I called the patient regarding his request for STEAM TURBINE ASSEMBLER services. I asked what ADLs he needs assistance with, and he asked me to speak with Jonathan. Jonathan stated that he needs assistance with bathing, getting dressed, medications, housekeeping, cooking, and going to appointments. She stated that if he is approved, she will be his STEAM TURBINE ASSEMBLER. I informed her that once he is referred, he will be receiving a call from [facility], to set up an evaluation. She requested for [facility] to call her, because sometimes the pa) 10/13/2024 Telephone [facility] [address] [place] [address] Nhung Caicedo [place] december recall 10/08/2024 Orders Only [facility] External Provider, [facility] 09/02/2024 Orders Only GENERIC EXTERNAL DATA DEPARTMENT Provider, Generic External Data 08/06/[address] [address] Leta Soto MD 08/05/2024 1:00 PM EST Office Visit [address] [address] Sonia Silva NP Preop examination (Primary Dx); Essential hypertension; Hepatitis C virus infection without hepatic coma, unspecified chronicity; Pancytopenia (CMS/HCC); Severe thrombocytopenia (CMS/HCC); Cognitive impairment; Tobacco use; 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 [facility] ?[address] ?[place] [address] ? CT Scan Report ? Signed ? Patient: Godfrey Mcmanus,Adelso ?MR#: [id number] ?? [id number] ? : 1960 ?Acct:[id number] ? Age/Sex: 63 / M ?ADM Date: 10/28/24 ? Loc: HO.ED ? Attending Dr: ? Ordering Physician: Venice Morrison CNP ?? Date of Service: 10/28/24 ?? Procedure(s): CT abdomen pelvis w IV con ?? Accession Number(s): [id number] ? cc: Venice Morrison CNP; Leta Soto MD ? Report Number: ?? [id number]: Total DLP = ??687.00 mGy-cm ? CLINICAL [...] fat and recanalized small umbilical vein. ?? Qvna-pr-qiimolgz colonic stool and moderate rectal stool. ?? [...] portal vein and splenic vein. ?? 3. Lymu-og-ilfzkeed colonic stool and moderate rectal stool. ?? 4. Additional stable findings as described. ? This document has been electronically signed by: Daphne Jensen MD on ?? 10/28/2024 21:08:32 ? Dictated By: ?Daphne Jensen MD ? Signed By: ?<Electronically signed by Daphne Jensen MD in OV> ? 10/28/242108 ? DD/ 07 ? TD/TT: 10/28/248 ? Sole Splitter: ? Procedure Note Donotuseinterpreter, Image - 10/28/[address] [address] [address] Scan Report Signed Patient: Adelso BeebeMR#: [id number] : 1960cct:[id number] Age/Sex: 63 / MADM Date: 10/28/24 Loc: HO.ED Attending Dr: Ordering Physician: Venice Morrison CNP Date of Service: 10/28/24 Procedure(s): CT abdomen pelvis w IV con Accession Number(s): [id number] cc: Venice Morrison CNP; Leta Soto MD Report Number: [id number]: Total DLP = 687.00 mGy-cm CLINICAL HISTORY: [...] hernia containing fat and recanalized small umbilicalvein. Vwtr-dg-dldxtlzv colonic stool and moderate rectal stool. Prostate [...] of portal vein and splenic vein. 3. Ucos-fn-zlwtgyll colonic stool and moderate rectal stool. 4. Additional stable findings as described. This document has been electronically signed by: Daphne Jensen MD on 10/28/2024 21:08:32 Dictated By: Daphne Jensen MD Signed By: <Electronically signed by Daphne Jensen MD in OV> 10/28/242108 DD/ 07 TD/TT: 10/28/242107 Sole Splitter: [facility] External Provider IMG CT PROCEDURES [...] patientsymptoms to aid in the diagnosis of PR. 10/28/2024 7:29 PM EST 10/28/2024 7:32 PM EST Generic External Data Provider LAB BLOOD ORDERAB LES Final Result [facility] [address] [place] [address] [phone] * XR Chest 2 Views (10/28/2024 6:02 PM EST) Anatomical Region Laterality Modality Chest Radiographic Susy ging 10/28/2024 6:02 PM EST Narrative 10/28/2024 6:05 PM EST ? [facility] ?[address] ?[place] [address] ?XRay Report ? Signed ? Patient: Godfrey Mcmanus,Adelso ?MR#: [id number] ?? [id number] ? : 1960 ?Acct:[id number] ? Age/Sex: 63 / M ?ADM Date: 10/28/24 ? Loc: HO.ED ? Attending Dr: ? Ordering Physician: Venice Morrison CNP ?? Date of Service: 10/28/24 ?? Procedure(s): XR chest 2V ?? Accession Number(s): [id number] ? cc: Venice Morrison CNP; Leta Soto [...] DD/ 1802 ? TD/TT: 10/28/24 1802 ? Sole Splitter: ? Procedure Note Hiral, Image - 10/28/2024 [place] [address] XRay Report Signed Patient: Yolanda Beebe#: [id number] : 1960cct:[id number] Age/Sex: 63 / MADM Date: 10/28/24 Loc: HO.ED Attending Dr: Ordering Physician: Venice Morrison CNP Date of Service: 10/28/24 Procedure(s): XR chest 2V Accession Number(s): [id number] cc: Venice Morrison CNP; Leta Soto MD [...] in OV> 10/28/241803 DD/ 01 TD/TT: 10/28/241801 Sole Splitter: [facility] External Provider IMG XR PROCEDURES Edited Result - Final * IR TIPS insertion (10/15/2024 1:30 PM EST) Anatomical Region Laterality Modality X-Ray Angiograph y 10/15/2024 1:30 PM EST Narrative 10/15/2024 4:32 PM EST ? [facility] ?[address] ?[place] [address] ?Interventional Radiology Rpt ? Signed ? Patient: Godfrey McmanusAdelso ?MR#: [id number] ?? [id number] ? : 1960 ?Acct:[id number] ? Age/Sex: 63 / M ?ADM Date: 10/08/24 ? Loc: HO.ICU ?252-1 ? Attending Dr: Zana Spear MD ? Ordering Physician: Yajaira Antonio MD ?? Date of Service: 10/15/24 ?? Procedure(s): IR TIPS insertion ?? Accession Number(s): [id number] ? cc: Leta Soto MD; Yajaira Antonio [...] was advanced to the IVC. A 10 [place] sheath was placed. ?? A hockey-stick catheter was used to catheterize the right hepatic vein. ?? This was confirmed with venography. The sheath was then advanced into ?? the right hepatic vein. A [employer] TIPS set was then used to gain [...] obtained. An 8 mm x 8 cm [place] [employer] TIPS was ?? then deployed from the hepatic vein to the portal vein. The TIPS stent ?? was postdilated with an 8 mm [employer] balloon. Portal venogram demonstrates ?? wide patency [...] DD/ 1330 ? TD/TT: 10/15/24 1625 ? Sole Splitter: ? Procedure Note Donotuseinterpreter, Image - 10/16/[address] [address] Interventional Radiology Rpt Signed Patient: Adelso BeebeMR#: [id number] : 2Acct:[id number] Age/Sex: 63 / MADM Date: 10/08/24 Loc: .[facility] 252-[address]: Zana Spear MD Ordering Physician: Yajaira Antonio MD Date of Service: 10/15/24 Procedure(s): IR TIPS insertion Accession Number(s): [id number] cc: Leta Soto MD; Yajaira Antonio MD [...] was advanced to the IVC. A 10 [place] sheath was placed. A hockey-stick catheter was used to catheterize the right hepatic vein. This was confirmed with venography. The sheath was then advanced into the right hepatic vein. A [employer] TIPS set was then used to gain [...] obtained. An 8 mm x 8 cm [place] [employer] TIPS was then deployed from the hepatic vein to the portal vein. The TIPS stent was postdilated with an 8 mm [employer] balloon. Portal venogram demonstrates wide patency of [...] 04:30 PM EST RP Dictated By: Abraham eNss MD Signed By: <Electronically signed by Abraham Ness MD in OV> 10/15/24 1630 DD/ 1330 TD/TT: 10/15/24 1625 Sole Splitter: [facility] External Provider IMG IR PROCEDURES Edited Result - Final * US Abdomen Limited (10/09/2024 12:24 PM EST) Anatomical Region Laterality Modality Abdomen Ultrasound 10/09/2024 12:2 4 PM EST Narrative 10/09/2024 12:25 PM EST ? [facility] ?[address] ?[place] [address] ? Ultrasound Report ? Signed ? Patient: Adelso Beebe ?MR#: [id number] ?? [id number] ? : 1960 ?Acct:[id number] ? Age/Sex: 63 / M ?ADM Date: 01/29/25 ? Loc: HO.EDOVER ?MEDSURG-5 ? Attending Dr: Faustino Madsen MD ? Ordering Physician: Lobo Whiting MD ?? Date of Service: 10/09/24 ?? Procedure(s): US abdomen limited ?? Accession Number(s): [id number] ? cc: Lobo Whiting MD; Leta Soto [...] DD/ 1224 ? TD/TT: 10/09/24 1224 ? Sole Splitter: ? Procedure Note Hiral, Image - 10/09/2024 [place] [address] Ultrasound Report Signed Patient: Adelso BeebeMR#: [id number] : 2Acct:[id number] Age/Sex: 63 / MADM Date: 10/08/24 [facility] Att[facility] Dr: Faustino Madsen MD Ordering Physician: Lobo Whiting MD Date of Service: 10/09/24 Procedure(s): US abdomen limited Accession Number(s): [id number] cc: Lobo Whiting MD; Leta Soto MD [...] 10/09/24 1224 DD/ 1224 TD/TT: 10/09/24 1224 Sole Splitter: us [facility] External Provider IMG US PROCEDURES Final Result * XR Chest 1 View (10/08/2024 9:42 PM EST) Anatomical Region Laterality Modality Chest Radiographic Susy ging 10/08/2024 9:42 PM EST Narrative 10/08/2024 9:43 PM EST ? [facility] ?[address] ?[place] [address] ?XRay Report ? Signed ? Patient: Adelso Beebe ?MR#: [id number] ?? [id number] ? : 1960 ?Acct:[id number] ? Age/Sex: 63 / M ?ADM Date: 10/08/24 ? Loc: HO.ED ? Attending Dr: ? Ordering Physician: Bhavana Christensen ?? Date of Service: 10/08/24 ?? Procedure(s): XR chest 1V ?? Accession Number(s): [id number] ? cc: Bhavana Christensen; Leta Soto MD [...] ? DD/ 41 ? TD/TT: 10/08/242141 ? Sole Splitter: ? Procedure Note Mehreen Blackman - 10/08/[address] [address] XRay Report Signed Patient: Adelso BeebeMR#: [id number] : 2Acct:[id number] Age/Sex: 63 / MADM Date: 10/08/24 Loc: HO.ED Attending Dr: Ordering Physician: Bhavana Christensen Date of Service: 10/08/24 Procedure(s): XR chest 1V Accession Number(s): [id number] cc: Bhavana Christensen; Leta Soto MD CLINICAL [...] in OV> 10/08/242142 DD/ 41 TD/TT: 10/08/242141 Sole Splitter: [facility] External Provider IMG XR PROCEDURES Edited Result - Final * Slide Review (09/02/2024 10:55 AM EST) Only the most recent of2 resultswithin the time period is included. Slide Review VERIFIED [facility] 09/02/2024 10:5 5 AM EST 09/02/2024 10:55 AM EST Generic External Data Provider LAB BLOOD ORDERAB LES Final Result [facility] [address] [place] [phone] * (ABNORMAL) CBC auto differential (09/02/2024 [...] - Final [facility] [address] [place] [address] [phone] * (ABNORMAL) Comprehensive Metabolic Panel (09/02/2024 [...] Kidney Disea se: Estimated GFR < 60 mL/min/1.27j8Jgbdmk Kidney Disease: Estimated GFR < 15 mL/min/1.73m2 [...] ORDERAB LES Final Result Performing Organization Address [facility]/ZIP Co de Phone Number [facility] [address] [place] [address] [phone] * Pheresis Platelets (09/02/2024 10:50 AM EST) Pheresis Platelets [id number] OP PHPLT TRANSFUSED 09/04/24 0934 [id number] OP PHPLT TRANSFUSED 09/04/24 0854 [facility] 09/02/2024 10:5 0 AM EST 09/02/2024 11:08 AM EST Generic External Data Provider LAB BLOOD BANK TE ST ORDERABLES Final Result Performing Organization Address [facility] Co de Phone Number [facility] [address] [place] [address] [phone] * Type and screen (09/02/2024 10:50 AM EST) Blood Type ON [facility] Antibody Screen NEGATIVE [facility] 09/02/2024 10:5 0 AM EST 09/02/2024 11:08 AM EST Narrative [facility] - 09/05/2024 6:50 AM EST NURSING:Call Blood Bank (ext. [phone]) to band patient on admission.Type and Screen [...] ST ORDERABLES Final Result Performing Organization Address [facility] Co de Phone Number [facility] [address] [place] [phone] * ECG 12 lead (08/05/2024 8:03 [...] ORDERABLES Final Resul t Performing Organization Address [facility]/ZIP Co de Phone Number [facility] [address] [place] [phone] * Lipid Panel, Standard (04/06/2023 10:00 AM EDT) Triglycerides 94 mg/dL [facility] Comment:Desirable Triglyceri de: less than 150 [...] to 190 mg/dL HDL Cholesterol 25 mg/dL [facility] Comment:Desirable HDL: great er than 40 mg/dL Note: This HDL assay may give artificially low results in patients with liver disease. Blood Venous blood specimen / Unknown 04/06/2023 10:00 AM EDT 04/06/2023 11:20 AM EDT [facility] LAB BLOOD ORDERABLES Final Resul t [facility] [address] [place] [phone] from Last 3 Months or Most Recently Relevant to Health Maintenance Insurance [facility] C3 HSN FULL Care Teams Qa Auditor Relationship Specialty Start Date End Date Leta Soto MD [address] [place] [phone] PCP - General Internal Medicine 04/11/23 Yajaira Antonio [address] [place] [address] 3rd [place] [address] Gastroenterology 09/04/24
--- OUTSIDE RECORDS SUMMARY | 2024-10-31 14:06 | XMS_ITS | Encounter Summary ---
Author Organization [employer] Address [address] [facility] 7t [place] [address] Care Team Providers Care Management Accounts Manager Name Role Phone Leta Soto MD Primary Care Pro vider Yajaira Antonio Unavailable Encounter Details Date Type Department Care Team (Late st Contact Info) Description 10/23/2024 Refill [facility] [address] [place] [address] Kelly Dick, PharmD 230 [place] [address] Social History Tobacco Use Types Packs/Day Years [...] Description 11/03/2024 9:30 AM EST Office Visit [facility] [address] [place] [address] Suzy Murguia NP 230 [place] [address] documented as of this encounter Goals Goal [...] documented as of this encounter Care Teams Management Accounts Manager Relationship Specialty Start Date End Date Leta Soto MD [address] [place] [address] PCP - General Internal Medicine 04/11/[address] 3rd [place] [address] Gastroenterology 09/04/24 documented as of this encounter
--- OUTSIDE RECORDS SUMMARY | 2024-10-31 14:06 | XMS_ITS | Encounter Summary ---
Author Organization [employer] Address [address] [facility] 7 [place] [address] Care Team Providers Care Manager Combination Name Role Phone Leta Soto MD Primary Care Pro vider PacoYajaira Unavailable Reason for Visit * Reason Comments Med Refill Encounter Details Date Type Department Care Team (Late st Contact Info) Description 10/28/2024 Refill [facility] 230 [place] [address] Leta Soto MD 230 [place], [place] [phone] Social History Tobacco Use Types Packs/Day Years [...] Description 11/03/2024 9:30 AM EST Office Visit [facility] 230 [place], [place] [phone] Suzy Murguia NP 230 [place] [address] documented as of this encounter Goals Goal [...] documented as of this encounter Care Teams Manager Combination Relationship Specialty Start Date End Date Leta Soto MD 230 [place] [address] PCP - General Internal Medicine 8/2/23 Yajaira Antonio [address] [facility] [address] 3rd Floor [place], [place] [phone] Gastroenterology 09/04/24 documented as of this encounter
--- OUTSIDE RECORDS SUMMARY | 2024-10-31 14:06 | XMS_ITS | Encounter Summary ---
Author Organization [employer] Address [address] [facility] 7t [place] [address] Care Team Providers Care University Counselor Name Role Phone Leta Soto MD Primary Care Pro vider Yajaira Antonio Unavailable Encounter Details Date Type Department Care Team (Late st Contact Info) Description 10/08/2024 Orders Only [facility] External Provider, [facility] Social History Tobacco Use Types Packs/Day [...] with others, in a hotel, in a group home, living outside on the street, on a [...] 9:43 PM EST Patient currently admitted at [facility] for sepsis, spontaneous bacterial peritonitis, cirrhosis documented in this encounter Plan of Treatment Upcoming Encounters Date Type Department Care Team (Late st Contact Info) Description 11/03/2024 9:30 AM EST Office Visit [facility] 230 [place] [address] Suzy Murguia NP 230 [place] [address] documented as of this encounter Goals Goal [...] EST Narrative 10/28/2024 6:05 PM EST ? [facility] ?[address] ?[place] [address] ?XRay Report ? Signed ? Patient: Adelso Beebe ?MR#: [id number] ?? [id number] ? : 1960 ?Acct:[id number] ? Age/Sex: 63 / M ?ADM Date: 10/28/24 ? Loc: HO.ED ? Attending Dr: ? Ordering Physician: Venice Morrison CNP ?? Date of Service: 10/28/24 ?? Procedure(s): XR chest 2V ?? Accession Number(s): [id number] ? cc: Venice Morrison CNP; Leta Soto [...] DD/ 01 ? TD/TT: 10/28/24 1802 ? Pan Devulcanizer Helper: ? Procedure Note Leelater, Image - 10/28/[address] [address] XRay Report Signed Patient: Adelso BeebeMR#: [id number] : 1960cct:[id number] Age/Sex: 63 / MADM Date: 10/28/24 Loc: HO.ED Attending Dr: Ordering Physician: Venice Morrison CNP Date of Service: 10/28/24 Procedure(s): XR chest 2V Accession Number(s): [id number] cc: Venice Morrison CNP; Leta Soto MD [...] OV> 10/28/24 180 DD/ 180 TD/TT: 10/28/241801 Pan Devulcanizer Helper: us [facility] External Provider IMG XR PROCEDURES Edited Result - Final * IR TIPS insertion (10/15/2024 1:30 PM EST) Anatomical Region Laterality Modality X-Ray Angiograph y 10/15/2024 1:30 PM EST Narrative 10/15/2024 4:32 PM EST ? [facility] ?[address] ?[place] [address] ?Interventional Radiology Rpt ? Signed ? Patient: Godfrey Mcmanus,Adelso ?MR#: [id number] ?? [id number] ? : 1960 ?Acct:[id number] ? Age/Sex: 63 / M ?ADM Date: 01/29/25 ? Loc: HO.ICU ?252-1 ? Attending Dr: Zana Spear MD ? Ordering Physician: Yajaira Antonio MD ?? Date of Service: 10/15/24 ?? Procedure(s): IR TIPS insertion ?? Accession Number(s): [id number] ? cc: Leta Soto MD; Yajaira Antonio [...] was advanced to the IVC. A 10 [place] sheath was placed. ?? A hockey-stick catheter was used to catheterize the right hepatic vein. ?? This was confirmed with venography. The sheath was then advanced into ?? the right hepatic vein. A [employer] (PGD) TIPS set was then used to gain [...] obtained. An 8 mm x 8 cm Trenary Viatorr TIPS was ?? then deployed from the hepatic vein to the portal vein. The TIPS stent ?? was postdilated with an 8 mm FOREST [employer]HTERS DISPATCHER balloon. Portal venogram demonstrates ?? wide patency [...] DD/ 1330 ? TD/TT: 10/15/24 1625 ? Pan Devulcanizer Helper: ? Procedure Note Mehreen Blackman - 10/16/2024 [place] [address] Interventional Radiology Rpt Signed Patient: Adelso BeebeMR#: [id number] : 1960cct:[id number] Age/Sex: 63 / MADM Date: 10/08/24 Loc: [facility] 252-[address]: Zana Spear MD Ordering Physician: Yajaira Antonio MD Date of Service: 10/15/24 Procedure(s): IR TIPS insertion Accession Number(s): [id number] cc: Leta Soto MD; Yajaira Antonio MD [...] was advanced to the IVC. A 10 [place] sheath was placed. A hockey-stick catheter was used to catheterize the right hepatic vein. This was confirmed with venography. The sheath was then advanced into the right hepatic vein. A [employer] (PGD) TIPS set was then used to gain [...] obtained. An 8 mm x 8 cm Trenary Viatorr TIPS was then deployed from the hepatic vein to the portal vein. The TIPS stent was postdilated with an 8 mm [employer]EST [employer] FIGHTERS DISPATCHER balloon. Portal venogram demonstrates wide patency of [...] 10/15/24 1630 DD/ 1330 TD/TT: 10/15/24 1625 Pan Devulcanizer Helper: [facility] External Provider IMG IR PROCEDURES Edited Result - Final * US Abdomen Limited (10/09/2024 12:24 PM EST) Anatomical Region Laterality Modality Abdomen Ultrasound 10/09/2024 12:2 4 PM EST Narrative 10/09/2024 12:25 PM EST ? [facility] ?[address] ?[place] [address] ? Ultrasound Report ? Signed ? Patient: Godfrey McmanusAdelso ?MR#: [id number] ?? [id number] ? : 1960 ?Acct:[id number] ? Age/Sex: 63 / M ?ADM Date: 10/08/24 ? Loc: HO.[place] ?MEDSURG-5 ? Attending Dr: Faustino Madsen MD ? Ordering Physician: Lobo Whiting MD ?? Date of Service: 10/09/24 ?? Procedure(s): US abdomen limited ?? Accession Number(s): [id number] ? cc: Lobo Whiting MD; Leta Soto [...] DD/ 1224 ? TD/TT: 10/09/24 1224 ? Pan Devulcanizer Helper: ? Procedure Note Hiral, Mehreen - 10/09/[address] [address] Ultrasound Report Signed Patient: Adelso BeebeMR#: [id number] : 2Acct:[id number] Age/Sex: 63 / MADM Date: 10/08/24 Loc: [facility]-[address]: Faustino Madsen MD Ordering Physician: Lobo Whiting MD Date of Service: 10/09/24 Procedure(s): US abdomen limited Accession Number(s): [id number] cc: Lobo Whiting MD; Leta Soto MD [...] 10/09/24 1224 DD/ 1224 TD/TT: 10/09/24 1224 Pan Devulcanizer Helper: us [facility] External Provider IMG US PROCEDURES Final Result * High Sensitivity Troponin I (10/08/2024 10:20 PM EST) TROPONIN I HIGH SENSITIVITY 7.3 <3.5 - 35.0 ng/L [facility] Comment:The Clifford high sens itivity Troponin-I results should beused in conjunction with other diagnostic information suchas ECG, clinical observations and information, and patientsymptoms to aid in the diagnosis of AK. 10/08/2024 10:2 0 PM EST 10/08/2024 10:23 PM EST us Generic External Data Provider LAB BLOOD ORDERAB LES Final Result [facility] [address] [place] [address] [phone] * XR Chest 1 View (10/08/2024 9:42 PM EST) Anatomical Region Laterality Modality Chest Radiographic Susy ging 10/08/2024 9:42 PM EST Narrative 10/08/2024 9:43 PM EST ? [facility] ?[address] ?[place] [address] ?XRay Report ? Signed ? Patient: Godfrey Mcmanus,Adelso ?MR#: [id number] ?? [id number] ? : 1960 ?Acct:[id number] ? Age/Sex: 63 / M ?ADM Date: 10/08/24 ? Loc: HO.ED ? Attending Dr: ? Ordering Physician: Bhavana Christensen ?? Date of Service: 10/08/24 ?? Procedure(s): XR chest 1V ?? Accession Number(s): [id number] ? cc: Bhavana Christensen; Leta Soto MD [...] ? DD/ 41 ? TD/TT: 10/08/242141 ? Pan Devulcanizer Helper: ? Procedure Note Hiral, Mehreen - 10/08/[address] [address] XRay Report Signed Patient: Adelso BeebeMR#: [id number] : 2Acct:[id number] Age/Sex: 63 / MADM Date: 10/08/24 Loc: HO.ED Attending Dr: Ordering Physician: Bhavana Christensen Date of Service: 10/08/24 Procedure(s): XR chest 1V Accession Number(s): [id number] cc: Bhavana Christensen; Leta Soto MD CLINICAL [...] in OV> 10/08/242142 DD/ 41 TD/TT: 10/08/242141 Pan Devulcanizer Helper: [facility] External Provider IMG XR PROCEDURES Edited Result - Final * CT Abdomen Pelvis w/ Contrast (10/08/2024 9:40 PM EST) Anatomical Region Laterality Modality Body, Pelvis, Abdomen Computed T omography 10/08/2024 9:40 PM EST Narrative 10/08/2024 9:42 PM EST ? [facility] ?[address] ?[place] [address] ? CT Scan Report ? Signed ? Patient: Godfrey McmanusAdelso ?MR#: [id number] ?? [id number] ? : 1960 ?Acct:[id number] ? Age/Sex: 63 / M ?ADM Date: 10/08/24 ? Loc: HO.ED ? Attending Dr: ? Ordering Physician: Bhavana Christensen ?? Date of Service: 01/29/25 ?? Procedure(s): CT abdomen pelvis w IV con ?? Accession Number(s): [id number] ? cc: Bhavana Christensen; Leta Soto MD ? Report Number: ?? [id number]: Total DLP = ??743.00 mGy-cm ? CLINICAL HISTORY: pain, divertic? CT abdomen and pelvis with contrast ? Comparison: CT/MO/SR - CT ABDOMEN PELVIS W IV CON [...] ? DD/ 39 ? TD/TT: 10/08/242139 ? Pan Devulcanizer Helper: ? Procedure Note Mehreen Blackman - 10/08/[address] [address] [address] Scan Report Signed Patient: Godfrey McmanusAdelso#: [id number] : 2Acct:[id number] Age/Sex: 63 / MADM Date: 10/08/24 Loc: HO.ED Attending Dr: Ordering Physician: Bhavana Christensen Date of Service: 10/08/24 Procedure(s): CT abdomen pelvis w IV con Accession Number(s): [id number] cc: Bhavana Christensen; Leta Soto MD Report Number: [id number]: Total DLP = 743.00 mGy-cm CLINICAL HISTORY: pain, divertic? CT abdomen and pelvis with contrast Comparison: CT/MO/SR - CT ABDOMEN PELVIS W IV CON [...] in OV> 10/08/242141 DD/ 39 TD/TT: 10/08/242139 Pan Devulcanizer Helper: [facility] External Provider IMG CT PROCEDURES Edited Result - Final documented in this encounter Visit Diagnoses Not on filedocumented in this encounter Additional Health Concerns Assessment Noted Time PHQ-9 Depression Total Score: 18 023 11:23 AM EDT documented as of this encounter Care Teams University Counselor Relationship Specialty Start Date End Date Leta Soto MD [address] [place] [address] PCP - General Internal Medicine 04/11/23 Yajaira Antonio [address] [place] [address] Drive 3rd [place] [address] Gastroenterology 09/04/24 documented as of this encounter
--- OUTSIDE RECORDS SUMMARY | 2024-10-31 14:06 | XMS_ITS | Encounter Summary ---
Author Organization [employer] Address 75 [facility] 7t [place] [address] Care Team Providers Care Lead Consultant Name Role Phone Leta Soto MD Primary Care Pro vider Yajaira Antonio Unavailable Reason for Visit * Reason Onset Date Comments december recall 10/13/2024 Encounter Details Date Type Department Care Team (Late st Contact Info) Description 10/13/2024 Telephone [facility] [address] [place] [address] [place] december recall Social History Tobacco Use [...] with others, in a hotel, in a care home, living outside on the street, on [...] [place] - 10/13/2024 11:24 AM EST T/C- English [employer] Player Left message to return call to schedule an appointment. Recall letter sent. Appointment: Office Visit Extended Note: WT & BP Month: December With: Yuriy Please schedule appointment if Patient calls Back. documented in this encounter Plan of Treatment Upcoming Encounters Date Type Department Care Team (Late st Contact Info) Description 11/03/2024 9:30 AM EST Office Visit [facility] [address] [place] [address] Suzy Murguia NP [address] [place] [address] documented as of this encounter Goals Goal [...] documented as of this encounter Care Teams Lead Consultant Relationship Specialty Start Date End Date Leta Soto MD [address] [place] [address] PCP - General Internal Medicine 04/11/23 Yajaira Antonio [address] [place] [address] 3rd [place] [address] Gastroenterology 09/04/24 documented as of this encounter
--- OUTSIDE RECORDS SUMMARY | 2024-10-31 14:06 | XMS_ITS | Encounter Summary ---
Author Organization [employer] Address [address] [facility] 7t [place] [address] Care Team Providers Care Gis Mapping Technician Name Role Phone Leta Soto MD Primary Care Pro vider Yajaira Antonio Unavailable Encounter Details Date Type Department Care Team (Late st Contact Info) Description 10/22/2024 Telephone [facility] 230 [place] [address] Kelly Dick, PharmD 230 [place] [address] Social History Tobacco Use Types Packs/Day Years [...] granddaughter to schedule. Please contact Edgardo at [phone]. Thank you documented in this encounter Plan of Treatment Upcoming Encounters Date Type Department Care Team (Late st Contact Info) Description 11/03/2024 9:30 AM EST Office Visit [facility] [address] [place] [address] Suzy Murguia NP 230 [place] [address] documented as of this encounter Goals Goal [...] documented as of this encounter Care Teams Gis Mapping Technician Relationship Specialty Start Date End Date Leta Soto MD [address] [place] [address] PCP - General Internal Medicine 04/11/23 Yajaira Antonio [address] [place] [address] 3rd [place] [address] Gastroenterology 09/04/24 documented as of this encounter
--- OUTSIDE RECORDS SUMMARY | 2024-10-31 14:06 | XMS_ITS | Encounter Summary ---
Author Organization [employer] Address [address] [facility] 7 [place] [address] Care Team Providers Care Lye Bath Operator Name Role Phone Leta Soto MD Primary Care Pro vider Yajaira Antonio Unavailable Reason for Visit * Reason Comments Transition Of Care (Tcm) HDF- Scheduled Encounter Details Date Type Department Care Team (Late st Contact Info) Description 10/22/2024 Patient Outreach [facility] 230 [place] [address] Leta Soto MD 230 [place] [address] Transition Of Care (Tcm) (HDF- Scheduled) Social [...] with others, in a hotel, in a fpc, living outside on the street, on a [...] 10/22/24 1158 [facility] Type [facility] Hospital Admission Date of Admission/Visit 10/08/24 Date of Discharge 10/16/24 Facility [facility] Diagnosis Hep c virus infection Disposition Discharged [...] Wednesdays, and Walk-In Urgent Care Located in [facility]. Patient provided with after-hours line for [facility], , which offer night time triage service and option to transfer to guidance consultant provider if needed. CC will request Discharge summary to be scanned into chart. documented in this encounter Plan of Treatment Upcoming Encounters Date Type Department Care Team (Late st Contact Info) Description 11/03/2024 9:30 AM EST Office Visit [facility] 230 [place], [place] [phone] Suzy Murguia NP 230 [place], [place] [phone] documented as of this encounter Goals Goal [...] documented as of this encounter Care Teams Lye Bath Operator Relationship Specialty Start Date End Date Leta Soto MD 230 [place], [place] [phone] PCP - General Internal Medicine 04/11/23 Yajaira Antonio [address] [place] [address] Drive 3rd Floor [place], [place] [phone] Gastroenterology 09/04/24 documented as of this encounter
== END 2024-10-31 13:34 | disposition home or self-care (01) ==
LOC: HO.XRAY 13:33
PROVIDERS: PCP Student in an Organized Health Care Education/Training Program; Visit Provider Internal Medicine
DX: M54.9 Dorsalgia, unspecified (principal); W19.XXXA Unspecified fall, initial encounter
CPT/HCPCS: 72070; 72100

== ENCOUNTER → 2024-10-31 13:37 | Outpatient (BNV) | payer MEDICAID, SELFPAY | PROVIDERS: PCP Student in an Organized Health Care Education/Training Program; Visit Provider Radiology Vascular & Interventional Radiology | DX: M51.27 Other intervertebral disc displacement, lumbosacral region (principal); M51.360 Other intervertebral disc degeneration, lumbar region with discogenic back pain only | CPT/HCPCS: 72070; 72100 ==

== ENCOUNTER 2024-11-06 22:52 | Inpatient (IN) | payer MEDICAID, SELFPAY ==
--- NOTE | ~2024-11-06 | CT_ITS ---
CLINICAL HISTORY: fall and ams CT cervical spine without contrast Comparison: None Findings: There is grade 1 anterolisthesis of C3 on C4, of C6 on C7, and also of C7 on T1. Irregularity and sclerosis of the vertebral body endplates present at C6-C7. Hjay-ju-tpwshday degenerative endplate changes are present at the cervical spine. Multilevel bilateral degenerative facet arthropathy also present at the cervical spine No acute fractures or dislocations. Impression: 1. No acute fracture or dislocation injury identified at the cervical spine. This document has been electronically signed by: Eliud Spears MD on 11/07/2024 02:25:08
--- NOTE | ~2024-11-06 | CT_ITS ---
CLINICAL HISTORY: fall please comment on T-spine for provider. CT chest with contrast Comparison: CR - XR CHEST 1V - 11/06/24 23:44 EST Findings: Normal heart,size. No significant pericardial effusion. No thoracic aorta aneurysm. No focal pulmonary consolidation, pneumothorax, or pleural effusion. No acute fractures are visualized. Dextrocurvature present at the thoracic spine. The thoracic vertebral body heights appear maintained. Impression: 1. No acute traumatic injury of the chest identified. This document has been electronically signed by: Eliud Spears MD on 11/07/2024 03:21:27
--- NOTE | ~2024-11-06 | CT_ITS ---
CLINICAL HISTORY: ams CT head without contrast Comparison: CT/UT/SR - CT HEAD/BRAIN WO IV CON - 05/26/24 19:53 EDT Findings: No intracranial mass, midline shift, hydrocephalus, or acute hemorrhage. There are atelectatic changes of the left maxillary sinus with mild mucosal thickening at this site. Minimal mucosal thickening present at the right maxillary sinus. The bilateral mastoid air cells appear clear. 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 No acute skull fracture. Impression: 1. No acute intracranial abnormality. No acute intracranial hemorrhage. This document has been electronically signed by: Eliud Spears MD on 11/07/2024 01:40:42
--- NOTE | ~2024-11-06 | CT_ITS ---
CLINICAL HISTORY: fall please comment on T-spine and L-spine for provider. CT abdomen and pelvis with contrast Comparison: CT/SR - CT ABDOMEN PELVIS W IV CON - 10/28/24 20:25 EST Findings: No consolidation or effusion. The liver appears nodular in contour, suggesting cirrhosis a TIPSS is in place. Splenomegaly present. Thrombus redemonstrated within the main portal vein with extension into the medial aspect of the splenic vein, which appears nonocclusive. Similar findings were present on the prior exam. The gallbladder, pancreas, and bilateral adrenal glands are within normal limits for appearance. No hydronephrosis or hydroureter. No dilated loops of bowel or evidence for bowel obstruction. Moderate rectal stool burden present. There is colonic diverticulosis. No CT evidence for acute diverticulitis. Tiny, fat containing umbilical hernia. Pelvic contents unremarkable. The bladder is underdistended. Borderline bladder wall thickening present. Tiny, fat containing right inguinal hernia. Nondilated appendix. No acute fracture or dislocation injury visualized. The lumbar vertebral body heights appear maintained. Vacuum disc phenomenon present at L2-L3 and L5-S1. IMPRESSION: 1. No acute traumatic injury of the abdomen or pelvis identified. 2. Cirrhosis redemonstrated with splenomegaly and a TIPSS in place. There is redemonstration of nonocclusive thrombus within the main portal vein and medial aspect of the splenic vein, unchanged. 3. Borderline bladder wall thickening. This may be related to bladder underdistention. If there is clinical concern for subtle cystitis may consider correlation with urinalysis results for further evaluation. 4. Moderate rectal stool burden. No bowel obstruction. This document has been electronically signed by: Eliud Spears MD on 11/07/2024 03:31:23
--- NOTE | ~2024-11-06 | US_ITS ---
EXAMINATION: US ABDOMEN LIMITED CLINICAL INFORMATION: Right upper quadrant pain. His known cirrhosis COMPARISON: CT abdomen and pelvis 11/07/2024. TECHNIQUE: Real-time imaging of the right upper quadrant abdominal viscera. FINDINGS: There is slight patient breathing motion during the exam limiting evaluation. PANCREAS: Visualized portions are unremarkable. LIVER: The liver has lobulated contour, heterogeneous with no focal lesion or intrahepatic ductal dilatation. The left lobe is suboptimally visualized due to overlying gas. GALLBLADDER: Gallbladder is not visualized and obscured by overlying gas. COMMON BILE DUCT: Normal in caliber measuring 0.22 cm in diameter. RIGHT KIDNEY: No hydronephrosis. There is no echogenic calculi or hydronephrosis. There is anechoic cyst in upper pole measuring 0.9 x 1.0 x 1.4 cm.. The kidney measures 11.1 cm in maximum dimension. FREE FLUID: None. US/US abdomen limited IMPRESSION: Findings suggestive of cirrhosis with no focal lesion seen. Gallbladder is not visualized. Simple cyst upper pole right kidney. Electronically signed by: Lopez Benjamin MD 11/07/2024 09:52 AM EST
--- NOTE | ~2024-11-06 | XR_ITS ---
CLINICAL HISTORY: ams 1 view chest x-ray. Comparison: CR - XR CHEST 2V - 10/28/24 17:34 EST Findings: No consolidation, pneumothorax, or effusion. Heart size normal. Impression: 1. No radiographic evidence for an acute cardiopulmonary process. No focal pulmonary consolidation. This document has been electronically signed by: Eliud Spears MD on 11/07/2024 00:19:17
[2024-11-06 22:59] VITALS: BP 260/110; PULSE 84; O2SAT 99; BMI 35.3
--- NOTE | 2024-11-06 23:13 | ECG_ITS ---
Test Reason : ams/htn Blood Pressure : */* mmHG Vent. Rate : 71 BPM Atrial Rate : 71 BPM P-R Int : 114 ms QRS Dur : 76 ms QT Int : 424 ms P-R-T Axes : 23 16 53 degrees QTcB Int : 460 ms Normal sinus rhythm Normal ECG When compared with ECG of 28-Oct-2024 16:39, No significant change was found Referred By: Gilbert Gandara Electronically Signed By: Slick Hoover
[2024-11-06 23:26] VITALS: BP 167/67; PULSE 68; RESP 16; TEMP 36.4; O2SAT 99
[2024-11-07] VITALS (7 sets, daily range): BP systolic 126–172; BP diastolic 51–86; PULSE 68–91; RESP 14–19; TEMP 36.3–36.7; O2SAT 97–100; BMI 28.1
[2024-11-07 00:13] LABS: Venous Blood Gas Refer to POC result
[2024-11-07 00:13] LABS: MANUAL DIFF FLAG NO
[2024-11-07 00:17] LABS: Basophils Percent Auto 0.6 % (0-2); Eosinophils Percent Auto 1.1 % (0-4); Hematocrit 35.6 % (42.0-52.0); Hemoglobin 12.3 g/dl (14.0-18.0); Imm Gran Abs Auto 0.01 X10*3/uL (0.00-0.03); Imm Gran Pct Auto 0.3 % (0.0-0.4); Lymphocytes Absolute Auto 0.9 X10*3/uL (1.2-4.9); Lymphocytes Percent Auto 24.2 % (20-40); Mean Corpuscular HGB Conc 34.6 g/dl (31.0-36.0); Mean Corpuscular Hemoglobin 28.6 pg (27.0-33.0); Mean Corpuscular Volume 82.8 fL (80.0-98.0); Mean Platelet Volume 11.7 fL (9.4-12.4); Monocytes Absolute Auto 0.3 X10*3/uL (0.1-1.2); Monocytes Percent Auto 7.4 % (2-11); Neutrophils Absolute Auto 2.3 x10*3/uL (2.0-8.3); Neutrophils Percent Auto 66.4 % (45-73); Red Cell Distribution Width 16.9 % (11.0-16.0); White Blood Count 3.5 X10*3/uL (4.8-10.8)
[2024-11-07 00:18] LABS: Platelet Count 36 X10*3/uL (160-400)
[2024-11-07 00:18] LABS: VBG Base Excess -2.3 mmol/L; VBG HCO3 20 mmol/L (22-26); VBG pCO2 31 mmHg; VBG pH 7.43 (7.32-7.43); VBG pO2 45 mmHg
[2024-11-07 00:19] LABS: INTERNATIONAL NORM RATIO 1.2 (0.9-1.1); Prothrombin Time 14.5 SEC (10.9-12.4)
[2024-11-07 00:20] LABS: Ammonia 76 umol/L (13-55)
[2024-11-07 00:27] LABS: Influenza A PCR NEGATIVE (Negative); Influenza B PCR NEGATIVE (Negative); Resp Syncy Virus RNA Qual PCR NEGATIVE (Negative); SARS COV2 PCR INHOUSE NEGATIVE (Negative)
[2024-11-07 00:27] LABS: Lactic Acid 1.9 mmol/L (0.5-2.0)
[2024-11-07 00:29] LABS: Alanine Aminotransferase 27 U/L (0-40); Albumin Level 3.4 g/dL (3.5-5.0); Alkaline Phosphatase 136 U/L (39-117); Anion Gap 11 (12-20); Aspartate Amino Transferase 46 U/L (5-37); Bilirubin Direct 1.2 mg/dL (0.0-0.5); Bilirubin Total 2.8 mg/dL (0.0-1.0); Blood Urea Nitrogen 17 mg/dL (9-16); Carbon Dioxide 21 mmol/L (22-29); Chloride 118 mmol/L (96-108); Estimated Glomerular Filt Rate > 60; Glucose Random 103 mg/dL (60-115); Sodium 146 mmol/L (135-145); Total Protein 7.6 g/dL (6.5-8.0)
[2024-11-07] MEDS: Lactulose 20 GM/30 ML SOLUTION PO ×4 (00:51→20:12)
[2024-11-07] MEDS: cefTRIAXone sodium 1 GM VIAL IVPUSH (00:51)
--- NOTE | 2024-11-07 01:14 | ED.GENADULT ---
HPI - General Adult General Chief complaint: Abdominal Pain Stated complaint: AMS, HTN *260/110 Time Seen by Provider: 11/06/24 23:13 Source: patient Limitations: language barrier (In-person american sign language interpreter used) and altered mental status History of Present Illness ED Provider: Juliocesar HPI narrative: 61-year-old male with past medical history of artificial right eye, HCV cirrhosis decompensated with varices, portal and splenic vein thrombosis, chronic thrombocytopenia, hypertension presenting for right upper quadrant abdominal pain and confusion. Patient his altered in unable to provide a reliable history however he states that he is experiencing right upper quadrant abdominal pain that has been ongoing for weeks. Patient also endorses falling a few days ago abuse unable to tell me whether he lost consciousness. He does endorse mild upper back pain however he denies head pain, neck pain, chest pain. Related Data Home Medications ?Medication ?Instructions ?Recorded ?Confirmed amlodipine 10 mg tablet 10 mg PO QAM 10/22/24 10/22/24 ascorbic acid (vitamin C) 250 mg 250 mg PO DAILY 10/22/24 10/22/24 tablet (Vitamin C) ferrous sulfate 65 mg PO DAILY 10/22/24 10/22/24 furosemide 20 mg tablet 20 mg PO DAILY 10/22/24 10/22/24 sucralfate 1 gram tablet 1 g PO TID 10/31/24 Previous Rx's ?Medication ?Instructions ?Recorded carvedilol 3.125 mg tablet 3.125 mg PO BID #60 tabs 10/16/24 lactulose 10 gram/15 mL oral 20 g (30 mL) PO TID #3,000 mL 10/16/24 solution Allergies Allergy/AdvReac Type Severity Reaction Status Date / Time aspirin AdvReac Severe stomach Verified 11/06/24 23:27 bleeding NSAIDS (Non-Steroidal AdvReac Severe liver Verified 11/06/24 23:27 Anti-Inflamma concerns Review of Systems Review of Systems: Yes all other systems are reviewed and are negative PMFSH Past Medical History Medical History Portal vein thrombosis Cirrhosis Splenic vein thrombosis Sepsis Cirrhosis of liver with ascites Abdominal pain Thrombocytopenia Pancytopenia Cirrhosis Hepatitis C virus infection Esophageal varices Pancytopenia Iron deficiency anemia Cirrhosis Hepatitis C HBP (high blood pressure) Surgical History S/P TIPS (transjugular intrahepatic portosystemic shunt) H/O left inguinal hernia repair H/O eye surgery History of esophagogastroduodenoscopy (EGD) H/O colonoscopy Family History Family History Maternal Grandmother Breast CA Uterus cancer Mother Primary lung cancer of unknown cell type Social History Social History Household Members: None Household Members Other:: [facility] Housing: Homeless Housing Other:: [facility] Are you a primary health care recruiter to a significant other at home: No Do you presently have visiting nurse or other home services: No Comment: pt refused all high fall risk interventions Patient Tobacco Use Status: Current everyday Tobacco user Tobacco use type: Cigarette Cigarette Packs Per Day: 1 Cigarettes Per Day: 5 Years Smoked: 30 Second Hand Smoke Exposure: No Substance Use Type: Crack/Cocaine and Marijuana Advance Directives: No Advance Directives Information Provided: Yes Advance Directives Date on File: 04/02/24 service: No Current occupational status: retired Physical Exam ED Vital Signs: Vital Signs - 24 hr 11/06/24 23:26 11/07/24 00:11 Temperature 97.5 F Pulse Rate 68 84 Respiratory Rate 16 16 Blood Pressure 167/67 H 172/62 H Pulse Oximetry 99 100 Oxygen Delivery Method Room Air Room Air BMI result Body Mass Index 35.3 Disheveled appearing male Head atraumatic normocephalic; no midline C-spine tenderness to palpation A&O x1; moving all extremities with strength and sensation equal in both upper and lower extremities Lungs clear to auscultation bilaterally Normal S1-S2 regular rate and rhythm Abdomen is soft nondistended with mild right upper quadrant abdominal tenderness to palpation No midline lumbar or T-spine tenderness to palpation Medications Administered Discontinued Medications Generic Name Dose Route Start Last Admin Trade Name Freq PRN Reason Stop Dose Admin Ceftriaxone Sodium 1 gm 11/06/24 23:37 11/07/24 00:51 Ceftriaxone Sodium 1 Gm Vial IVPUSH 11/06/24 23:38 1 gm ONCE ONE Administration Lactulose 20 gm 11/07/24 00:25 11/07/24 00:51 Lactulose 20 Gm/30 Ml Solution PO 11/07/24 00:26 20 gm ONCE ONE Administration Medical Decision Making Medical Decision Making MDM Narrative: 61-year-old male presenting for abdominal pain -I am concerned for the following; hepatic encephalopathy, head trauma, neck trauma, electrolyte/metabolic disturbance, underlying infection, SBP -labs and imaging studies ordered -ceftriaxone ordered -patient does not have large ascitic pocket for paracentesis Lab and imaging interpretation -I reviewed patient's CT head and did not appreciate bleed; radiology impression is negative for bleed -I reviewed patient's C-spine imaging and did not appreciate any fracture -I reviewed his chest x-ray did not appreciate rib fracture; radiology impression is negative for acute cardiopulmonary process -elevated ammonia, thrombocytopenia, baseline LFTs Consulted overnight hospitalist who accepted patient for admission. CTs are pending and if any abnormalities hospitalist will touch base with the overnight ED attending Lab Data 11/07/24 00:06 11/07/24 00:06 Labs: Lab Results 11/06/24 11/07/24 11/07/24 Range/Units 23:46 00:06 00:13 WBC 3.5 L (4.8-10.8) X10*3/uL RBC 4.30 L (4.60-5.80) X10*6/uL Hgb 12.3 L (14.0-18.0) g/dl Hct 35.6 L (42.0-52.0) % MCV 82.8 (80.0-98.0) fL MCH 28.6 (27.0-33.0) pg MCHC 34.6 (31.0-36.0) g/dl RDW 16.9 H (11.0-16.0) % Plt Count 36 L (160-400) X10*3/uL MPV 11.7 (9.4-12.4) fL Immature Gran % (Auto) 0.3 (0.0-0.4) % Neut % (Auto) 66.4 (45-73) % Lymph % (Auto) 24.2 (20-40) % [place] % (Auto) 7.4 (2-11) % Eos % (Auto) 1.1 (0-4) % Baso % (Auto) 0.6 (0-2) % Lymph # (Auto) 0.9 L (1.2-4.9) X10*3/uL Major # (Auto) 0.3 (0.1-1.2) X10*3/uL Eos # (Auto) 0.0 (0.0-0.4) X10*3/uL Baso # (Auto) 0.0 (0.0-0.2) X10*3/uL Abs Immat Gran (auto) 0.01 (0.00-0.03) X10*3/uL Absolute Neuts (auto) 2.3 (2.0-8.3) x10*3/uL Absolute Nucleated RBC 0.000 (0.0-0.012) X10*3/uL Nucleated RBC % (auto) 0.0 (0.0-0.2) /100WBC PT 14.5 H (10.9-12.4) SEC INR 1.2 H (0.9-1.1) APTT 30.0 (26.0-36.8) SEC VBG pH 7.43 (7.32-7.43) VBG pCO2 31 mmHg VBG pO2 45 mmHg VBG HCO3 20 L (22-26) mmol/L VBG O2 Saturation 73.0 % VBG Base Excess -2.3 mmol/L Sodium 146 H (135-145) mmol/L Potassium 4.0 (3.3-5.1) mmol/L Chloride 118 H (96-108) mmol/L Carbon Dioxide 21 L (22-29) mmol/L Anion Gap 11 L (12-20) BUN 17 H (9-16) mg/dL Creatinine 0.70 (0.5-1.4) mg/dL Estim Creat Clear Calc 145.0 Estimated GFR > 60 Random Glucose 103 (60-115) mg/dL Lactic Acid 1.9 (0.5-2.0) mmol/L Calcium 9.0 (8.4-10.2) mg/dL Total Bilirubin 2.8 H (0.0-1.0) mg/dL Direct Bilirubin 1.2 H (0.0-0.5) mg/dL AST 46 H (5-37) U/L ALT 27 (0-40) U/L Alkaline Phosphatase 136 H (39-117) U/L Ammonia 76 H (13-55) umol/L Total Protein 7.6 (6.5-8.0) g/dL Albumin 3.4 L (3.5-5.0) g/dL Influenza Type A (PCR) NEGATIVE (Negative) Influenza Type B (PCR) NEGATIVE (Negative) RSV RNA Qual (PCR) NEGATIVE (Negative) SARS-CoV-2 RNA (RT-PCR) NEGATIVE (Negative) Discharge Plan Discharge Clinical Impression: Altered mental status Qualifiers: Altered mental status type: unspecified Qualified Code(s): R41.82 - Altered mental status, unspecified Prescriptions: No Action carvedilol 3.125 mg Tablet 3.125 mg PO BID Qty: 60 0RF Protocol: Hold for SBP/HR < HOLD for SBP < : 90 HOLD for HR < : 60 lactulose 10 gram/15 mL solution 20 g PO TID Qty: 3000 0RF furosemide 20 mg Tablet 20 mg PO DAILY ferrous sulfate 65 mg PO DAILY amlodipine 10 mg tablet 10 mg PO QAM ascorbic acid (vitamin C) [Vitamin C] 250 mg Tablet 250 mg PO DAILY sucralfate 1 gram tablet 1 g PO TID Print Language: Divehi
[2024-11-07 02:15] LABS: Appearance Urine Clear; Color Urine Dark Yellow; Glucose Urine UA Negative (Negative); Leukocyte Esterase Urine Negative (Negative); Nitrite Urine Negative (Negative); Urine Blood Negative (Negative); Urine Ketones Trace mg/dL (Negative); Urine Protein Negative (Neg-Trace)
[2024-11-07] MEDS: iohexoL 350 MG/ML 100 ML INFUS..BTL 85 ML IV (02:18)
--- NOTE | 2024-11-07 06:03 | P.HPHOSP_ITS ---
History of Present Illness Date of Service: 11/07/24 Chief Complaint: Altered mentation This is a 63-year-old male with pertinent history of HCV cirrhosis with varices status post TIPS, portal and splenic vein thrombosis, chronic thrombocytopenia, hypertension, noncompliant with medications who was brought to the emergency department for evaluation of altered mentation. Patient is only oriented x1 at the time of my evaluation. Patient unable to provide a reliable history due to altered mentation. Does complain of abdominal pain. Unable to localize. Unable to say the last time he took his home prescription p.o. medications. Unable to obtain review of systems. History obtained with the help of glass production machine operator. Review of Systems 2 Review of Systems: Yes Unobtainable due to mental status [facility] Medical History Hepatic encephalopathy Portal vein thrombosis Cirrhosis Splenic vein thrombosis Sepsis Cirrhosis of liver with ascites Abdominal pain Thrombocytopenia Pancytopenia Cirrhosis Hepatitis C virus infection Esophageal varices Pancytopenia Iron deficiency anemia Cirrhosis Hepatitis C HBP (high blood pressure) Family History Maternal Grandmother Breast CA Uterus cancer Mother Primary lung cancer of unknown cell type Surgical History S/P TIPS (transjugular intrahepatic portosystemic shunt) H/O left inguinal hernia repair H/O eye surgery History of esophagogastroduodenoscopy (EGD) H/O colonoscopy Social History Household Members: None Household Members Other:: jail Housing: Homeless Housing Other:: jail Are you a primary assistant child care teacher to a significant other at home: No Do you presently have visiting nurse or other home services: No Comment: pt refused all high fall risk interventions Patient Tobacco Use Status: Current everyday Tobacco user Tobacco use type: Cigarette Cigarette Packs Per Day: 1 Cigarettes Per Day: 5 Years Smoked: 30 Smoked in Last 30 Days: No Second Hand Smoke Exposure: No Substance Use Type: Crack/Cocaine and Marijuana Advance Directives: No Advance Directives Information Provided: Yes Advance Directives Date on File: 04/02/24 service: No Current occupational status: retired Meds Allergies Allergy/AdvReac Type Severity Reaction Status Date / Time aspirin AdvReac Severe stomach Verified 11/06/24 23:27 bleeding NSAIDS (Non-Steroidal AdvReac Severe liver Verified 11/06/24 23:27 Anti-Inflamma concerns Home Medications ?Medication ?Instructions ?Recorded ?Confirmed ?Last Taken ?Type amlodipine 10 mg tablet 10 mg PO QAM 10/22/24 10/22/24 Unknown History ascorbic acid (vitamin C) 250 mg 250 mg PO DAILY 10/22/24 10/22/24 Unknown History tablet (Vitamin C) ferrous sulfate 65 mg PO DAILY 10/22/24 10/22/24 Unknown History furosemide 20 mg tablet 20 mg PO DAILY 10/22/24 10/22/24 Unknown History sucralfate 1 gram tablet 1 g PO TID 10/31/24 Unknown History Physical Exam 2 Vital Signs and Narrative: Vital Signs: Last Vital Signs Temp 97.5 F 11/07/24 02:20 Pulse 80 11/07/24 03:22 Resp 16 11/07/24 03:22 BP 145/56 H 11/07/24 03:22 Pulse Ox 100 11/07/24 03:22 O2 Del Method Room Air 11/07/24 03:22 BMI result Body Mass Index 35.3 Middle-aged male lying in bed in no distress Neck supple, no JVD Regular rate and rhythm, S1-S2 heard Regular breath sounds bilaterally, no wheezing or crackles appreciated Abdomen with generalized tenderness, no rigidity Patient is awake, alert and oriented x1 ; no focal motor deficit Psych: Normal mood No pedal edema Results Labs 11/07/24 00:06 11/07/24 00:06 Labs: Laboratory Results - last 24 hr 11/06/24 11/07/24 11/07/24 23:46 00:06 00:13 MCV 82.8 MCH 28.6 MCHC 34.6 RDW 16.9 H Plt Count 36 L MPV 11.7 Immature Gran % (Auto) 0.3 Neut % (Auto) 66.4 Lymph % (Auto) 24.2 [place] % (Auto) 7.4 Eos % (Auto) 1.1 Baso % (Auto) 0.6 Lymph # (Auto) 0.9 L [place] # (Auto) 0.3 Eos # (Auto) 0.0 Baso # (Auto) 0.0 Abs Immat Gran (auto) 0.01 Absolute Neuts (auto) 2.3 Absolute Nucleated RBC 0.000 Nucleated RBC % (auto) 0.0 PT 14.5 H INR 1.2 H APTT 30.0 VBG pH 7.43 VBG pCO2 31 VBG pO2 45 VBG HCO3 20 L VBG O2 Saturation 73.0 VBG Base Excess -2.3 Anion Gap 11 L Estim Creat Clear Calc 145.0 Estimated GFR > 60 Random Glucose 103 Lactic Acid 1.9 Calcium 9.0 Total Bilirubin 2.8 H Direct Bilirubin 1.2 H AST 46 H ALT 27 Alkaline Phosphatase 136 H Ammonia 76 H Total Protein 7.6 Albumin 3.4 L Urine Color Urine Appearance Urine pH Ur Specific [place] Urine Protein Urine Glucose (UA) Urine Ketones Urine Blood Urine Nitrite Ur Leukocyte Esterase Influenza Type A (PCR) NEGATIVE Influenza Type B (PCR) NEGATIVE RSV RNA Qual (PCR) NEGATIVE SARS-CoV-2 RNA (RT-PCR) NEGATIVE 11/07/24 02:08 MCV MCH MCHC RDW Plt Count MPV Immature Gran % (Auto) Neut % (Auto) Lymph % (Auto) [place] % (Auto) Eos % (Auto) Baso % (Auto) Lymph # (Auto) [place] # (Auto) Eos # (Auto) Baso # (Auto) Abs Immat Gran (auto) Absolute Neuts (auto) Absolute Nucleated RBC Nucleated RBC % (auto) PT INR APTT VBG pH VBG pCO2 VBG pO2 VBG HCO3 VBG O2 Saturation VBG Base Excess Anion Gap Estim Creat Clear Calc Estimated GFR Random Glucose Lactic Acid Calcium Total Bilirubin Direct Bilirubin AST ALT Alkaline Phosphatase Ammonia Total Protein Albumin Urine Color Dark Yellow Urine Appearance Clear Urine pH 6.0 Ur Specific [place] 1.020 Urine Protein Negative Urine Glucose (UA) Negative Urine Ketones Trace Urine Blood Negative Urine Nitrite Negative Ur Leukocyte Esterase Negative Influenza Type A (PCR) Influenza Type B (PCR) RSV RNA Qual (PCR) SARS-CoV-2 RNA (RT-PCR) Assessment and Plan (1) Hepatic encephalopathy: Status: Acute (2) Altered mental status: Qualifiers: Altered mental status type: unspecified Qualified Code(s): R41.82 - Altered mental status, unspecified Status: Acute Plan This is a 63-year-old male with pertinent history of HCV cirrhosis with varices status post TIPS, portal and splenic vein thrombosis, chronic thrombocytopenia, hypertension, noncompliant with medications who was brought to the emergency department for evaluation of altered mentation. #. Acute hepatic encephalopathy in a patient with decompensated HCV cirrhosis with varices: Due to noncompliance with medications. Initiating lactulose. Monitor mentation. Patient has portal and splenic vein thrombosis but can not anticoagulate due to thrombocytopenia enlarged varices. Patient is status post TIPS and thrombectomy. Resume home Lasix #. Abdominal pain: Empiric ceftriaxone to treat for possible SBP. Imaging without any acute abnormality. Obtaining ultrasound. #. Hypertension: On amlodipine and carvedilol #. Pancytopenia due to cirrhosis Med rec pending DVT prophylaxis: SCDs Full code Admit as inpatient and will require two night minimum hospital stay for IV antibiotics, monitoring of mentation (as above), which is not possible in a lesser acute setting. Quality Stroke Does the patient have a stroke diagnosis?: No VTE Prior VTE?: No VTE Risk Level:: Medical - moderate - high VTE Device Contraindication: N/A - Device Ordered VTE Drug Contraindication: Treatment Not Indicated
--- NOTE | 2024-11-07 06:21 | PC.NURSE ---
Pt is awake and alert and answering questions appropriatelty here in the ED with the support of the medical anthropologist. Pt verbalizes his needs appropriately. Is calm and cooperative with staff. Uses the urinal at the bedside independently. Was offered warm blankets and something to drink. Pt is pending admission, will continue to monitor for any changes.
[2024-11-07] MEDS: cefTRIAXone sodium 2 GM VIAL IVPUSH (08:39)
[2024-11-07] MEDS: 0.9 % Sodium Chloride Flush 3 ML SYRINGE IVFLUSH ×3 (08:39→20:12)
[2024-11-07 09:21] LABS: Ammonia 139 umol/L (13-55)
[2024-11-07 09:27] LABS: Anion Gap 12 (12-20); Blood Urea Nitrogen 16 mg/dL (9-16); Calcium 8.5 mg/dL (8.4-10.2); Carbon Dioxide 22 mmol/L (22-29); Chloride 116 mmol/L (96-108); Creatinine Clr Calc Pharmacy 126.9; Estimated Glomerular Filt Rate > 60; Glucose Random 184 mg/dL (60-115); Potassium 4.1 mmol/L (3.3-5.1); Sodium 146 mmol/L (135-145)
--- NOTE | 2024-11-07 09:46 | PHA.MEDREC ---
Pharmacy Consult ? Medication Reconciliation Pharmacy has completed the medication reconciliation. No recent claim history, patient noted to be noncompliant in other reports. Patient unable to be spoken to, left message with his dianegissel Edgardo ([phone]). Left as no known home meds for now
--- NOTE | 2024-11-07 10:23 | PC.NURSE ---
Pt ambulatory with a steady gait to the BR.
--- NOTE | 2024-11-07 14:06 | P.EN_ITS ---
Event Note Date of Service: 11/07/24 Event Note: seen and examined this morning follow up for encephalopathy history obtained with assistance of side door worker pt awake, alert, remains confused - ammonia trending up This is a 63-year-old male with pertinent history of 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 Acute hepatic encephalopathy in a patient with decompensated HCV cirrhosis with varices s/p TIPS Due to noncompliance with medications resume lactulose Patient has portal and splenic vein thrombosis but can not anticoagulate due to thrombocytopenia enlarged varices Abdominal pain: Empiric ceftriaxone to treat for possible SBP - no ascites on US for paracentesisis CT scan with moderate stool burden, possible cystitis UA negative being treated with lactulose ultrasound unremarkable, no free fluid noted per outpatient GI note - planned for outpatient thrombecotmy but pt did not show up GI consult pending Hypertension: med rec pending. bp stable at this time. was discharged with norvasc and coreg earlier this month - not clear if pt has been taking resume coreg and follow mild hyponatremia due to cirrhosis follow BMP Pancytopenia chronic, due to cirrhosis Med rec pending - no recent claim history, patient with h/o noncompliance - pharmacy awaiting call back from beatris barajas. DVT prophylaxis: SCDs Full code Admit as inpatient and will require two night minimum hospital stay for IV antibiotics, monitoring of mentation (as above), which is not possible in a lesser acute setting. Time Spent With Patient Time: Total time managing care of this patient today ____ minutes.
[2024-11-07] MEDS: carvediloL 3.125 MG TABLET PO (20:12)
[2024-11-08 03:31] VITALS: BP 140/70; PULSE 75; RESP 18; TEMP 36.3; O2SAT 98
[2024-11-08] MEDS: cefTRIAXone sodium 2 GM VIAL IVPUSH (06:17)
[2024-11-08 06:51] LABS: MANUAL DIFF FLAG NO
[2024-11-08 06:56] VITALS: BP 110/55; PULSE 65; RESP 12; TEMP 36.9; O2SAT 99
[2024-11-08 07:07] LABS: Basophils Percent Auto 0.4 % (0-2); Eosinophils Percent Auto 1.6 % (0-4); Hematocrit 30.8 % (42.0-52.0); Hemoglobin 10.3 g/dl (14.0-18.0); Lymphocytes Absolute Auto 0.9 X10*3/uL (1.2-4.9); Lymphocytes Percent Auto 37.2 % (20-40); Mean Corpuscular HGB Conc 33.4 g/dl (31.0-36.0); Mean Corpuscular Hemoglobin 28.3 pg (27.0-33.0); Mean Corpuscular Volume 84.6 fL (80.0-98.0); Monocytes Absolute Auto 0.3 X10*3/uL (0.1-1.2); Monocytes Percent Auto 9.9 % (2-11); Neutrophils Absolute Auto 1.3 x10*3/uL (2.0-8.3); Neutrophils Percent Auto 50.9 % (45-73); Red Blood Count 3.64 X10*6/uL (4.60-5.80); Red Cell Distribution Width 16.9 % (11.0-16.0)
[2024-11-08 07:12] LABS: White Blood Count 2.5 X10*3/uL (4.8-10.8)
[2024-11-08 07:13] LABS: Platelet Count 21 X10*3/uL (160-400)
[2024-11-08 07:22] LABS: Alanine Aminotransferase 20 U/L (0-40); Albumin Level 2.6 g/dL (3.5-5.0); Aspartate Amino Transferase 37 U/L (5-37); Bilirubin Direct 0.6 mg/dL (0.0-0.5); Bilirubin Total 1.3 mg/dL (0.0-1.0); Total Protein 5.9 g/dL (6.5-8.0)
[2024-11-08 07:23] LABS: Alanine Aminotransferase 19 U/L (0-40); Albumin Level 2.6 g/dL (3.5-5.0); Anion Gap 9 (12-20); Aspartate Amino Transferase 37 U/L (5-37); Bilirubin Total 1.3 mg/dL (0.0-1.0); Blood Urea Nitrogen 13 mg/dL (9-16); Calcium 8.5 mg/dL (8.4-10.2); Carbon Dioxide 22 mmol/L (22-29); Chloride 116 mmol/L (96-108); Creatinine Clr Calc Pharmacy 118.4; Estimated Glomerular Filt Rate > 60; Glucose Random 89 mg/dL (60-115); Potassium 3.9 mmol/L (3.3-5.1); Sodium 143 mmol/L (135-145)
[2024-11-08 08:36] VITALS: BP 121/59; PULSE 67
[2024-11-08] MEDS: 0.9 % Sodium Chloride Flush 3 ML SYRINGE IVFLUSH ×3 (08:49→20:10)
[2024-11-08] MEDS: carvediloL 3.125 MG TABLET PO ×2 (08:49→20:09)
--- NOTE | 2024-11-08 10:10 | P.CNGI_ITS ---
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 Patient was brought in with AMS. He had no other complaints, but unreliable historian. Admits to mild lower abdominal pain, no nausea or vomiting. orientated to time but not place. Denies nausea, constipation or diarrhea. CT imaging with non occlusive PVT with some involvement of splenic vein, TIPS noted, cirrhosis Patient has had known partial thrombosis of portal vein since at least 05/2024, but due to partial thrombus, presence of large varices with high-risk stigmata, and severe thrombocytopenia, he has not been deemed a candidate for anticoagulation. IR was planning further intervention with possible thrombectomy but issues with compliance and making it to apptms. Review of Systems 2 Review of Systems: Constitutional : No Weight loss, No Fever, No Chills ENT/Mouth : No sore throat, No Rhinorrhea Eyes: No Swelling, No Redness Cardiovascular : No Chest Pain, No SOB, No Edema Respiratory : No Cough, No Sputum, No Wheezing Gastrointestinal : see HPI Genitourinary : NO Dysuria, No Urinary Frequency, No Hematuria, No Urgency Musculoskeletal : no joint pain, No Myalgias, No Joint Swelling Skin : No Skin Lesions, No rash Neuro : + Weakness, No Numbness, No Dizziness, No Headache Psych : No Anxiety/Panic, No Depression Heme/Lymph: No Bruising, No Lymphadenopathy Endocrine : No Polyuria, No Polydipsia All other systems reviewed and are negative. [facility] Past Medical History Medical History Hepatic encephalopathy Portal vein thrombosis Cirrhosis Splenic vein thrombosis Sepsis Cirrhosis of liver with ascites Abdominal pain Thrombocytopenia Pancytopenia Cirrhosis Hepatitis C virus infection Esophageal varices Pancytopenia Iron deficiency anemia Cirrhosis Hepatitis C HBP (high blood pressure) Family History Family History Maternal Grandmother Breast CA Uterus cancer Mother Primary lung cancer of unknown cell type Surgical History Surgical History S/P TIPS (transjugular intrahepatic portosystemic shunt) H/O left inguinal hernia repair H/O eye surgery History of esophagogastroduodenoscopy (EGD) H/O colonoscopy Social History Social History Household Members: None Household Members Other:: residential Housing: Other Housing Other:: residential Are you a primary care worker to a significant other at home: No Do you presently have visiting nurse or other home services: No Comment: pt refused all high fall risk interventions Patient Tobacco Use Status: Tobacco use Unknown Tobacco use type: Cigarette Cigarette Packs Per Day: 1 Cigarettes Per Day: 5 Years Smoked: 30 Smoked in Last 30 Days: No Second Hand Smoke Exposure: No Use of substances other than those prescribed or required for medical reasons: No Substance Use Type: Crack/Cocaine and Marijuana Currently Displaying Signs/Symptoms of Drug Intoxication Withdrawal: No Any prior treatment program specific to substance use: No Have you been hit, kicked, punched, or otherwise hurt by someone within the past year? If so, by whom?: No Do you feel safe in your current relationship?: No Current Relationship Is there a partner from a previous relationship who is making you feel unsafe now?: No Are you made to feel afraid or neglected: No Advance Directives: No Advance Directives Information Provided: Yes Advance Directives Date on File: 04/02/24 Do you have a plan to hurt others: No Plan Recently lost weight without trying: Unsure Eating poorly because of decreased appetite: No Nutrition Risks: No Nutritional Risk Poor oral hygiene: No service: No Current occupational status: retired [employer] Allergies Allergy/AdvReac Type Severity Reaction Status Date / Time aspirin AdvReac Severe stomach Verified 11/06/24 23:27 bleeding NSAIDS (Non-Steroidal AdvReac Severe liver Verified 11/06/24 23:27 Anti-Inflamma concerns Active Medications: Current Medications Acetaminophen (Acetaminophen 325 Mg Tablet) 650 mg PO Q6H PRN PRN Reason: Pain, Mild 1-3,fever,headache Calcium Carbonate (Calcium Carbonate 750 Mg Tab.Chew) 750 mg PO Q4H PRN PRN Reason: Heartburn Carvedilol (Carvedilol 3.125 Mg Tablet) 3.125 mg PO BID [facility]; Protocol Last Admin: 11/08/24 08:49 Dose: 3.125 mg Ceftriaxone Sodium (Ceftriaxone Sodium 2 Gm Vial) 2 gm IVPUSH Q24H [facility] Last Admin: 11/08/24 06:17 Dose: 2 gm Lactulose (Lactulose 20 Gm/30 Ml Solution) 20 gm PO TID [facility] Last Admin: 11/07/24 20:12 Dose: 20 gm Magnesium Hydroxide (Milk Of Magnesia 30 Ml Oral.Susp) 30 ml PO DAILY PRN PRN Reason: Constipation Melatonin (Melatonin 3 Mg Tablet) 6 mg PO BEDTIME PRN PRN Reason: Insomnia Ondansetron HCl (Ondansetron Hcl 4 Mg/2 Ml Vial) 4 mg IVPUSH Q8H PRN PRN Reason: Nausea and Vomiting Sodium Chloride (0.9 % Sodium Chloride Flush 3 Ml Syringe) 3 ml IVFLUSH QSHIFT [facility] Last Admin: 11/08/24 08:49 Dose: 3 ml Home Medications ?Medication ?Instructions ?Recorded ?Confirmed ?Last Taken ?Type No Known Home Meds 11/07/24 11/07/24 Unknown History Physical Exam 2 Vital Signs: Vital Signs: Last Vital Signs Temp 98.5 F 11/08/24 06:56 Pulse 67 11/08/24 08:36 Resp 12 11/08/24 06:56 BP 121/59 L 11/08/24 08:36 Pulse Ox 99 11/08/24 06:56 O2 Del Method Room Air 11/08/24 06:56 BMI result Body Mass Index 28.1 EXAM: GENERAL: The patient is frail VITAL SIGNS:see workflow HEENT: Nonicteric sclerae, PERRLA, EOMI. Oropharynx clear. Moist mucous membranes. Conjunctivae appear well perfused. No thyroid mass. CHEST: Chest wall is nontender. HEART: Regular rate and rhythm without murmurs. LUNGS: Clear to auscultation bilaterally. ABDOMEN: Soft, positive bowel sounds, nontender, no organomegaly.no flank tenderness SKIN: No rash, no excessive bruising, petechiae, or purpura. NEUROLOGIC: Cranial nerves II-XII intact without motor/sensory deficit. Tremor noted Psych: confused Results Labs 11/08/24 06:46 11/08/24 06:46 Labs: Short CBC 11/08/24 Range/Units 06:46 WBC 2.5 L (4.8-10.8) X10*3/uL Hgb 10.3 L (14.0-18.0) g/dl Hct 30.8 L (42.0-52.0) % Plt Count 21 L D (160-400) X10*3/uL BMP 11/08/24 06:46 Sodium 143 Potassium 3.9 Chloride 116 H Carbon Dioxide 22 BUN 13 Creatinine 0.77 Calcium 8.5 Liver Function 11/08/24 11/08/24 Range/Units 06:46 06:47 Total Bilirubin 1.3 H 1.3 H (0.0-1.0) mg/dL Direct Bilirubin 0.6 H (0.0-0.5) mg/dL AST 37 37 (5-37) U/L ALT 19 20 (0-40) U/L Albumin 2.6 L 2.6 L (3.5-5.0) g/dL Imaging CT scan - abdomen: Attestation: I personally reviewed and interpreted this imaging study as follows: (cirrhosis, tips, PVT) Assessment and Plan (1) Hepatic encephalopathy: Status: Acute Plan 1/ hepatic encephalopathy, possibly triggered by non compliance with meds in the setting of TIPS and PVT, no evidence of active infection, no ascites or pneumonia, UTI. Noevidence of active gi bleeding, or head lesions, Ammonia is coming down PLAN 1/ optimize lytes, check mag and phos, Ca 2/ lactulose and rifaximin, titrate lactulosr to 2-3 soft stools daily 3/ trend hgb, if going down then EGD 4/ consider in patient IR consult for the clot in the PV 5/ consider tox screen Procedures Date of Service Date of Service: 11/08/24
[2024-11-08 10:41] LABS: Ammonia 92 umol/L (13-55)
--- NOTE | 2024-11-08 10:55 | MHC.CM.PN ---
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 PT IS WELL KNOWN TO CM FROM PREVIOUS ADMISSIONS WHEN ASKED IF HE WOULD BE ABLE TO RETURN TO HIS [place] [id number] [facility], PT STATES HE DOES NOT KNOW, HE SAYS I DON'T THINK THEY KNOW I WAS THERE HE SAYS HE MAY GO STAY WITH A FRIEND BUT WILL HAVE TO GO TO GET HER MONEY FIRST CM ASKED IF HIS PRIMARY CONTACT LISTED WAS THE FRIEND HE WAS REFERRING TO, PT STATES HE DOES NOT KNOW AND CANNOT REMEMBER THE FRIENDS NAME THE PHONE NUMBER FOR THE CONTACT WAS PROVIDED AND PT ATTEMPTED TO REACH HER, A VM MESSAGE WAS LEFT REQUESTING A RETURN CALL PT HAS A HCP ON FILE, HOWEVER THERE IS NO ANSWER AT THE NUMBER LISTED PCP: PAT PHILLIPS CM RELIEVED A RETURN CALL FORM PTS PRIMARY CONTACT JOSIAH, WHO STATES SHE IS PTS GRAND DAUGHTER SHE SAYS SHE HAS BEEN WORRIED ABOUT HIM FOR SOME TIME NOW HE SEEMS TO HAVE SIGNIFICANT MEMORY IMPAIRMENT AT TIMES SHE SAYS HE HAS TOLD THEM FOR SOME TIME THAT HE IS NOT ON MEDS, HOWEVER SHE READ HIS LAST DCS AND LEARNED HE IS ON SEVERAL MEDS SHE SAYS HE WAS ASSESSED BY [facility] HOWEVER THEY DID NOT CONTACT ANYONE AND DETERMINED HE IS INELIGIBLE FOR SERVICES SHE SAYS BESIDES HIS MEMORY IMPAIRMENT, HE HAS ALSO HAS MULTIPLE FALLS
[2024-11-08 11:06] LABS: Alkaline Phosphatase 112 U/L (39-117)
[2024-11-08 11:07] LABS: Alkaline Phosphatase 134 U/L (39-117)
--- NOTE | 2024-11-08 11:49 | HO.PM.IMPN ---
Subjective Subjective Date of Service: 11/08/24 Interval History: This history was taken in Hungarian from the patient. No hematemesis, hematochezia, or melena. No abd pain. Review of Systems Review of Systems: Yes all other systems are reviewed and are negative Physical Exam Vital Signs: Vital Signs: Last Vital Signs Temp 98.5 F 11/08/24 06:56 Pulse 67 11/08/24 08:36 Resp 12 11/08/24 06:56 BP 121/59 L 11/08/24 08:36 Pulse Ox 99 11/08/24 06:56 O2 Del Method Room Air 11/08/24 06:56 BMI result Body Mass Index 28.1 Objective Data Active Medications Acetaminophen (Acetaminophen 325 Mg Tablet) 650 mg PO Q6H PRN PRN Reason: Pain, Mild 1-3,fever,headache Calcium Carbonate (Calcium Carbonate 750 Mg Tab.Chew) 750 mg PO Q4H PRN PRN Reason: Heartburn Carvedilol (Carvedilol 3.125 Mg Tablet) 3.125 mg PO BID [facility]; Protocol Last Admin: 11/08/24 08:49 Dose: 3.125 mg Documented By: MARGARITA Ceftriaxone Sodium (Ceftriaxone Sodium 2 Gm Vial) 2 gm IVPUSH Q24H [facility] Last Admin: 11/08/24 06:17 Dose: 2 gm Documented By: MARYANA Lactulose (Lactulose 20 Gm/30 Ml Solution) 20 gm PO TID [facility] Last Admin: 11/07/24 20:12 Dose: 20 gm Documented By: MARYANA Magnesium Hydroxide (Milk Of Magnesia 30 Ml Oral.Susp) 30 ml PO DAILY PRN PRN Reason: Constipation Melatonin (Melatonin 3 Mg Tablet) 6 mg PO BEDTIME PRN PRN Reason: Insomnia Ondansetron HCl (Ondansetron Hcl 4 Mg/2 Ml Vial) 4 mg IVPUSH Q8H PRN PRN Reason: Nausea and Vomiting Sodium Chloride (0.9 % Sodium Chloride Flush 3 Ml Syringe) 3 ml IVFLUSH QSHIFT [facility] Last Admin: 11/08/24 08:49 Dose: 3 ml Documented By: MARGARITA Labs 11/08/24 06:46 11/08/24 06:46 Labs: Laboratory Results - last 24 hr 11/08/24 11/08/24 11/08/24 06:46 06:47 10:16 MCV 84.6 MCH 28.3 MCHC 33.4 RDW 16.9 H Plt Count 21 L D MPV Not Reportable Immature Gran % (Auto) 0.0 Neut % (Auto) 50.9 Lymph % (Auto) 37.2 [place] % (Auto) 9.9 Eos % (Auto) 1.6 Baso % (Auto) 0.4 Lymph # (Auto) 0.9 L [place] # (Auto) 0.3 Eos # (Auto) 0.0 Baso # (Auto) 0.0 Abs Immat Gran (auto) 0.00 Absolute Neuts (auto) 1.3 L Absolute Nucleated RBC 0.000 Nucleated RBC % (auto) 0.0 Anion Gap 9 L Estim Creat Clear Calc 118.4 Estimated GFR > 60 Random Glucose 89 Calcium 8.5 Total Bilirubin 1.3 H 1.3 H Direct Bilirubin 0.6 H AST 37 37 ALT 19 20 Alkaline Phosphatase 112 134 H Ammonia 92 H Total Protein 6.0 L 5.9 L Albumin 2.6 L 2.6 L Assessment and Plan (1) Cirrhosis: Status: Acute Plan 63-year-old male with pertinent history of 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 Acute hepatic encephalopathy in a patient with decompensated HCV cirrhosis with varices s/p TIPS Due to noncompliance with medications continue lactulose Patient has portal and splenic vein thrombosis but can not anticoagulate due to thrombocytopenia enlarged varices ammonia 92 Abdominal pain Empiric ceftriaxone to treat for possible SBP - no ascites on US for paracentesisis CT scan with moderate stool burden, possible cystitis UA negative being treated with lactulose ultrasound unremarkable, no free fluid noted per outpatient GI note - planned for outpatient thrombecotmy but pt did not show up GI consult> IR for portal vein clot removal Hypertension bp stable at this time. was discharged with norvasc and coreg earlier this month - not clear if pt has been taking resume coreg and follow Mild hyponatremia due to cirrhosis follow BMP Pancytopenia chronic, due to cirrhosis DVT prophylaxis: SCDs Full code Quality Stroke Does the patient have a stroke diagnosis?: No VTE Prior VTE?: No VTE Risk Level:: Medical - moderate - high VTE Device Contraindication: N/A - Device Ordered VTE Drug Contraindication: Treatment Not Indicated
[2024-11-08 15:11] VITALS: BP 126/58; PULSE 71; RESP 18; TEMP 37.3; O2SAT 97
[2024-11-08] MEDS: Lactulose 20 GM/30 ML SOLUTION PO ×2 (15:41→20:09)
[2024-11-08 19:25] VITALS: BP 150/65; PULSE 74; RESP 18; TEMP 36.9; O2SAT 100
[2024-11-09] MEDS: cefTRIAXone sodium 2 GM VIAL IVPUSH (06:10)
--- NOTE | 2024-11-09 07:38 | HO.PM.IMPN ---
Subjective Subjective Date of Service: 11/09/24 Interval History: Follow up Encephalopathy No hematemesis, hematochezia, or melena. No abd pain. Review of Systems Review of Systems: Yes all other systems are reviewed and are negative Physical Exam Vital Signs: Vital Signs: Last Vital Signs Temp 98.5 F 11/08/24 19:25 Pulse 74 11/08/24 19:25 Resp 18 11/08/24 19:25 BP 150/65 H 11/08/24 19:25 Pulse Ox 100 11/08/24 19:25 O2 Del Method Room Air 11/08/24 19:25 BMI result Body Mass Index 28.1 Appearing in no acute distress lung sounds are clear to auscultation heart regular rate rhythm, clear S1, S2 positive bowel sounds, abdomen is soft, nontender neuro patient is alert x3, no focal deficits Objective Data Active Medications Acetaminophen (Acetaminophen 325 Mg Tablet) 650 mg PO Q6H PRN PRN Reason: Pain, Mild 1-3,fever,headache Calcium Carbonate (Calcium Carbonate 750 Mg Tab.Chew) 750 mg PO Q4H PRN PRN Reason: Heartburn Carvedilol (Carvedilol 3.125 Mg Tablet) 3.125 mg PO BID [facility]; Protocol Last Admin: 11/08/24 20:09 Dose: 3.125 mg Documented By: MARYANA Ceftriaxone Sodium (Ceftriaxone Sodium 2 Gm Vial) 2 gm IVPUSH Q24H [facility] Last Admin: 11/09/24 06:10 Dose: 2 gm Documented By: MARYANA Lactulose (Lactulose 20 Gm/30 Ml Solution) 20 gm PO TID [facility] Last Admin: 11/08/24 20:09 Dose: 20 gm Documented By: MARYANA Magnesium Hydroxide (Milk Of Magnesia 30 Ml Oral.Susp) 30 ml PO DAILY PRN PRN Reason: Constipation Melatonin (Melatonin 3 Mg Tablet) 6 mg PO BEDTIME PRN PRN Reason: Insomnia Ondansetron HCl (Ondansetron Hcl 4 Mg/2 Ml Vial) 4 mg IVPUSH Q8H PRN PRN Reason: Nausea and Vomiting Sodium Chloride (0.9 % Sodium Chloride Flush 3 Ml Syringe) 3 ml IVFLUSH QSHIFT [facility] Last Admin: 11/08/24 20:10 Dose: 3 ml Documented By: MARYANA Labs 11/09/24 09:30 11/09/24 09:30 Labs: Laboratory Results - last 24 hr 11/08/24 11/08/24 11/08/24 06:46 06:47 10:16 Alkaline Phosphatase 112 134 H Ammonia 92 H Assessment and Plan (1) Cirrhosis: Status: Acute Plan 63-year-old male with pertinent history of 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 Acute hepatic encephalopathy in a patient with decompensated HCV cirrhosis with varices s/p TIPS Due to noncompliance with medications continue lactulose increase to 30 TID Patient has portal and splenic vein thrombosis but can not anticoagulate due to thrombocytopenia enlarged varices ammonia 93 Abdominal pain s/p Empiric ceftriaxone to treat for possible SBP - no ascites on US for paracentesisis CT scan with moderate stool burden, possible cystitis UA negative being treated with lactulose ultrasound unremarkable, no free fluid noted GI consult> IR consult for portal vein thrombectomy Hypertension bp stable at this time. was discharged with norvasc and coreg earlier this month - not clear if pt has been taking resume coreg and follow Mild hyponatremia due to cirrhosis follow BMP Pancytopenia chronic due to cirrhosis DVT prophylaxis: SCDs Full code Quality Stroke Does the patient have a stroke diagnosis?: No VTE Prior VTE?: No VTE Risk Level:: Medical - moderate - high VTE Device Contraindication: N/A - Device Ordered VTE Drug Contraindication: Treatment Not Indicated
[2024-11-09 08:30] VITALS: BP 119/56; PULSE 64; RESP 16; TEMP 36.7; O2SAT 96
[2024-11-09] MEDS: Lactulose 20 GM/30 ML SOLUTION PO (09:13)
[2024-11-09] MEDS: carvediloL 3.125 MG TABLET PO ×2 (09:13→20:29)
[2024-11-09] MEDS: 0.9 % Sodium Chloride Flush 3 ML SYRINGE IVFLUSH (09:13)
[2024-11-09 09:46] LABS: Hematocrit 34.3 % (42.0-52.0); Hemoglobin 11.3 g/dl (14.0-18.0); Mean Corpuscular HGB Conc 32.9 g/dl (31.0-36.0); Mean Corpuscular Hemoglobin 28.4 pg (27.0-33.0); Mean Corpuscular Volume 86.2 fL (80.0-98.0); Platelet Count 22 X10*3/uL (160-400); Red Blood Count 3.98 X10*6/uL (4.60-5.80); Red Cell Distribution Width 16.5 % (11.0-16.0); White Blood Count 2.9 X10*3/uL (4.8-10.8)
[2024-11-09 09:49] LABS: Ammonia 93 umol/L (13-55)
[2024-11-09 10:01] LABS: Alanine Aminotransferase 25 U/L (0-40); Albumin Level 2.7 g/dL (3.5-5.0); Anion Gap 10 (12-20); Aspartate Amino Transferase 42 U/L (5-37); Bilirubin Direct 0.5 mg/dL (0.0-0.5); Bilirubin Total 1.1 mg/dL (0.0-1.0); Blood Urea Nitrogen 13 mg/dL (9-16); Calcium 8.8 mg/dL (8.4-10.2); Carbon Dioxide 23 mmol/L (22-29); Chloride 112 mmol/L (96-108); Creatinine Clr Calc Pharmacy 115.4; Estimated Glomerular Filt Rate > 60; Glucose Random 126 mg/dL (60-115); Potassium 4.5 mmol/L (3.3-5.1); Sodium 140 mmol/L (135-145); Total Protein 6.3 g/dL (6.5-8.0)
[2024-11-09 10:16] LABS: Alkaline Phosphatase 126 U/L (39-117)
[2024-11-09 15:12] VITALS: BP 126/59; PULSE 75; RESP 16; TEMP 37; O2SAT 97
[2024-11-09] MEDS: Lactulose 20 GM/30 ML SOLUTION 30 GM PO ×2 (15:30→20:29)
[2024-11-09 19:11] VITALS: BP 128/60; PULSE 74; RESP 18; TEMP 37.4; O2SAT 98
[2024-11-09 23:13] VITALS: BP 132/62; PULSE 74; RESP 18; TEMP 36.3; O2SAT 98
[2024-11-10] MEDS: 0.9 % Sodium Chloride Flush 3 ML SYRINGE IVFLUSH ×3 (00:57→20:32)
--- NOTE | 2024-11-10 02:05 | PC.NURSE ---
Approx 0100, patient bed alarm was sounding. He was standing at the foot of the bed trying to turn it off. T room called as camera is in room and they did not alarm or call that the pt was OOB. Stated they had too many cameras on patients to fit their monitors and that 343 has not been monitored via camera sitter. Felisha, Corporate Safety Manager notified at [phone] and she replied via [employer] connect ok Ill look when notifying her as FYI in case any other patients could come off camera monitoring so he can be watched. no further reply as of now.
[2024-11-10] MEDS: cefTRIAXone sodium 2 GM VIAL IVPUSH (06:52)
[2024-11-10] MEDS: Lactulose 20 GM/30 ML SOLUTION 30 GM PO ×2 (07:39→15:33)
[2024-11-10] MEDS: carvediloL 3.125 MG TABLET PO ×2 (07:39→20:31)
--- NOTE | 2024-11-10 07:48 | P.PNIM_ITS ---
Subjective Subjective Date of Service: 11/10/24 Interval History: Follow up Encephalopathy No hematemesis, hematochezia, or melena. No abd pain. Review of Systems Review of Systems: Yes all other systems are reviewed and are negative Physical Exam 2 Vital Signs: Vital Signs: Last Vital Signs Temp 97.4 F 11/09/24 23:13 Pulse 74 11/09/24 23:13 Resp 18 11/09/24 23:13 BP 132/62 11/09/24 23:13 Pulse Ox 98 11/09/24 23:13 O2 Del Method Room Air 11/09/24 23:13 BMI result Body Mass Index 28.1 Appearing in no acute distress lung sounds are clear to auscultation heart regular rate rhythm, clear S1, S2 positive bowel sounds, abdomen is soft, nontender neuro patient is alert x3, no focal deficits Objective Data Active Medications Acetaminophen (Acetaminophen 325 Mg Tablet) 650 mg PO Q6H PRN PRN Reason: Pain, Mild 1-3,fever,headache Calcium Carbonate (Calcium Carbonate 750 Mg Tab.Chew) 750 mg PO Q4H PRN PRN Reason: Heartburn Carvedilol (Carvedilol 3.125 Mg Tablet) 3.125 mg PO BID [facility]; Protocol Last Admin: 11/10/24 07:39 Dose: 3.125 mg Documented By: HIEN Ceftriaxone Sodium (Ceftriaxone Sodium 2 Gm Vial) 2 gm IVPUSH Q24H [facility] Last Admin: 11/10/24 06:52 Dose: 2 gm Documented By: WALTER Lactulose (Lactulose 20 Gm/30 Ml Solution) 30 gm PO TID [facility] Last Admin: 11/10/24 07:39 Dose: 30 gm Documented By: HIEN Magnesium Hydroxide (Milk Of Magnesia 30 Ml Oral.Susp) 30 ml PO DAILY PRN PRN Reason: Constipation Melatonin (Melatonin 3 Mg Tablet) 6 mg PO BEDTIME PRN PRN Reason: Insomnia Ondansetron HCl (Ondansetron Hcl 4 Mg/2 Ml Vial) 4 mg IVPUSH Q8H PRN PRN Reason: Nausea and Vomiting Sodium Chloride (0.9 % Sodium Chloride Flush 3 Ml Syringe) 3 ml IVFLUSH QSHIFT [facility] Last Admin: 11/10/24 07:39 Dose: Not Given Documented By: HIEN Non-Admin Reason: IV Running Labs 11/09/24 09:30 11/09/24 09:30 Labs: Laboratory Results - last 24 hr 11/09/24 09:30 MCV 86.2 MCH 28.4 MCHC 32.9 RDW 16.5 H Plt Count 22 L MPV Not Reportable Absolute Nucleated RBC 0.000 Nucleated RBC % (auto) 0.0 Anion Gap 10 L Estim Creat Clear Calc 115.4 Estimated GFR > 60 Random Glucose 126 H Calcium 8.8 Magnesium 2.0 Total Bilirubin 1.1 H Direct Bilirubin 0.5 AST 42 H ALT 25 Alkaline Phosphatase 126 H Ammonia 93 H Total Protein 6.3 L Albumin 2.7 L Assessment and Plan (1) Cirrhosis: Status: Acute Plan 63-year-old male with pertinent history of 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 Acute hepatic encephalopathy in a patient with decompensated HCV cirrhosis with varices s/p TIPS Due to noncompliance with medications continue lactulose increase to 30 TID Patient has portal and splenic vein thrombosis but can not anticoagulate due to thrombocytopenia enlarged varices ammonia 93 Abdominal pain s/p Empiric ceftriaxone to treat for possible SBP - no ascites on US for paracentesisis CT scan with moderate stool burden, possible cystitis UA negative being treated with lactulose ultrasound unremarkable, no free fluid noted GI consult> IR consult for portal vein thrombectomy Hypertension bp stable at this time. was discharged with norvasc and coreg earlier this month - not clear if pt has been taking resume coreg and follow Mild hyponatremia due to cirrhosis follow BMP Pancytopenia chronic due to cirrhosis DVT prophylaxis: SCDs Full code Quality Stroke Does the patient have a stroke diagnosis?: No VTE Prior VTE?: No VTE Risk Level:: Medical - moderate - high VTE Device Contraindication: N/A - Device Ordered VTE Drug Contraindication: Treatment Not Indicated
[2024-11-10 07:51] VITALS: BP 118/56; PULSE 72; RESP 12; TEMP 36.4; O2SAT 99
--- NOTE | 2024-11-10 14:44 | P.EN_ITS ---
Event Note Date of Service: 11/10/24 Event Note: Contacted by Hospitalist staff regarding portal vein thrombus. Patient is a 63 y/o man with portal hypertension s/p TIPS on 10/15/24. Outpatient follow up was arranged on discharge for possible mechanical thrombectomy of the portal vein thrombus, however, patient did not show up to his appointment. Patient is readmitted with hepatic encephalopathy. CT imaging reviewed with Dr. Ness. The previously seen portal vein thrombus has slightly decreased compared to 1 month ago. His ascites has also resolved. Discussed with Dr. Alamo. Will defer intervention regarding his portal vein thrombus given improvement. Recommend follow up CT in 2-4 to ensure thrombus is continuing to improve. If patient continues to develop recurrent hepatic encephalopathy due to medication non- compliance, further intervention, which includes occluding the TIPS, can be pursued. Victorino HAMILTON Interventional Radiology Time Spent With Patient Time: Total time managing care of this patient today ____ minutes.
[2024-11-10 16:17] VITALS: BP 158/70; PULSE 71; RESP 18; TEMP 36.1; O2SAT 100
--- NOTE | 2024-11-10 18:23 | PC.NURSE ---
Assumed care at 1400, patient alert oriented to self and place not to situation, vague. Patient on RA sat's 100%, patient ambulates in the room independently. Fall risk reassessed, patient scored as moderate fall risk, gets upset when alarms on, asked to be allowed walking to the bathroom, patient was allowed to ambulate in the room and to the bathroom, camera still in place for additional monitoring. 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 Patient requested to shower and was able to do so with set up only no assistance from staff. No complaints offered.
[2024-11-10 20:31] VITALS: BP 158/70; PULSE 71
[2024-11-10 23:48] VITALS: BP 152/67; PULSE 77; RESP 18; TEMP 36.3; O2SAT 99
[2024-11-11 07:25] VITALS: BP 128/57; PULSE 76; RESP 16; TEMP 36.5; O2SAT 99
[2024-11-11] MEDS: cefTRIAXone sodium 2 GM VIAL IVPUSH (07:27)
[2024-11-11] MEDS: 0.9 % Sodium Chloride Flush 3 ML SYRINGE IVFLUSH (07:27)
--- NOTE | 2024-11-11 07:27 | PM.DS ---
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 Patient is only oriented x1 at the time of my evaluation. Patient unable to provide a reliable history due to altered mentation. Does complain of abdominal pain. Unable to localize. Unable to say the last time he took his home prescription p.o. medications. Unable to obtain review of systems. History obtained with the help of lead manufacturing engineering tech. 63-year-old man treated for acute hepatic encephalopathy secondary to decompensated hep C cirrhosis with varices due to noncompliance with medications. Treated with lactulose 30 g t.i.d.. Patient has a history of portal and splenic vein thrombosis but not on anticoagulation due to thrombocytopenia and enlarged varices. Discussed this with the steam tunnel feeder and Interventional Radiology who thought that repeat imaging showed smaller thrombosis and no need for inpatient intervention. Patient should follow up with his steam tunnel feeder to discuss any further treatment. He initially was noted to have some abdominal pain and empirically treated with Rocephin to treat for SBP but he had no ascites. A UA has been negative an ultrasound was unremarkable. Prescription for lactulose sent to pharmacy. Hypertension. Stable blood pressure during admission. Restarted Coreg for discharge. Mild hyponatremia. due to cirrhosis. Pancytopenia chronic. due to cirrhosis Time Attestation Discharge Coordination Time (in mins): 40 Quality: Safe Use of Opioids Does Pt have an Active Cancer Diagnosis on the Problem List?: No Quality: Stroke Does the patient have a stroke diagnosis?: No Physical Exam Vital Signs: Vital Signs: Last Vital Signs Temp 97.3 F 11/10/24 23:48 Pulse 77 11/10/24 23:48 Resp 18 03/03/25 23:48 BP 152/67 H 11/10/24 23:48 Pulse Ox 99 11/10/24 23:48 O2 Del Method Room Air 11/10/24 23:48 BMI result Body Mass Index 28.1 Appearing in no acute distress head is normocephalic atraumatic eyes pupils are PERRLA sclera is anicteric mouth throat mucous membranes are intact and moist neck is supple no lymphadenopathy, no JVD noted lung sounds are clear to auscultation heart regular rate rhythm, clear S1, S2 positive bowel sounds, abdomen is soft, nontender neuro patient is alert x3, no focal deficits DS: Data Data Completed and Pending Completed studies during hospitalization [Text1]: Procedures Bypass Portal Vein to Hepatic Vein with Synthetic Substitute, Percutaneous Approach (10/08/24) Transfusion of Nonautologous Platelets into Peripheral Vein, Percutaneous Approach (10/08/24) Discharge Plan Discharge Anticipated Discharge Date/Time: 11/11/24 07:22 Patient Disposition: Home, Self-Care Discharge Diagnosis: Hepatic encephalopathy Referrals: Leta Soto MD [Primary Care Provider] - 1 Week Discharge Medications: New lactulose 10 gram/15 mL Solution 20 g PO TID Qty: 3000 2RF carvedilol 3.125 mg Tablet 3.125 mg PO BID Qty: 60 0RF Protocol: Hold for SBP/HR < HOLD for SBP < : 90 HOLD for HR < : 60 Discharge Orders: Discharge Order (Routine); Ordered 11/11/24 Ordered By: Deanna Puente Diet: Advance to usual diet Activity on Discharge: As tolerated Stand Alone Forms: Patient Portal Discharge page Print Language: Armenian Care Plan Goals: Take all medications as prescribed Health Concerns: Hepatic encephalopathy Plan of Treatment: Follow up with primary care provider as needed Take all medications as prescribed Assessment: See discharge summary
[2024-11-11] MEDS: carvediloL 3.125 MG TABLET PO (07:31)
[2024-11-11 09:20] LABS: Ammonia 117 umol/L (13-55)
[2024-11-11 09:24] LABS: Anion Gap 8 (12-20); Blood Urea Nitrogen 16 mg/dL (9-16); Calcium 8.4 mg/dL (8.4-10.2); Carbon Dioxide 26 mmol/L (22-29); Chloride 115 mmol/L (96-108); Creatinine Clr Calc Pharmacy 115.4; Estimated Glomerular Filt Rate > 60; Glucose Random 96 mg/dL (60-115); Potassium 4.6 mmol/L (3.3-5.1); Sodium 144 mmol/L (135-145)
--- NOTE | 2024-11-11 09:31 | MHC.CM.PN ---
pt dcd home self care
== END 2024-11-11 10:58 | disposition home or self-care (01) ==
LOC: HO.ED 11-07 00:32 → HO.EDOVER 11-07 06:13 → HO.S3 11-07 16:58
PROVIDERS: Physician Assistant Medical; Admitting Provider Student in an Organized Health Care Education/Training Program; Emergency Provider Student in an Organized Health Care Education/Training Program; PCP Student in an Organized Health Care Education/Training Program; Visit Provider Nurse Practitioner Acute Care
DX: K76.82 Hepatic encephalopathy (principal); I81 Portal vein thrombosis; D61.818 Other pancytopenia; I82.890 Acute embolism and thrombosis of other specified veins; K76.6 Portal hypertension; E87.1 Hypo-osmolality and hyponatremia; I10 Essential (primary) hypertension; Z20.822 Contact with and (suspected) exposure to COVID-19; K74.69 Other cirrhosis of liver; Z91.148 Patient's other noncompliance with medication regimen for other reason; Z86.19 Personal history of other infectious and parasitic diseases; Z59.01 Sheltered homelessness; Z79.899 Other long term (current) drug therapy
CPT/HCPCS: 0241U; 36415; 70450; 71045; 71260; 72125; 74177; 76705; 80048; 80053; 80076; 81003; 82140; 82803; 83605; 83735; 85025; 85027; 85610; 85730; 93005; 99285; J0696; Q9967

== ENCOUNTER → 2024-11-06 23:13 | Outpatient (BNV) | payer MEDICAID, SELFPAY | PROVIDERS: Emergency Provider Student in an Organized Health Care Education/Training Program; PCP Student in an Organized Health Care Education/Training Program; Visit Provider Radiology Diagnostic Radiology | DX: R41.82 Altered mental status, unspecified (principal) | CPT/HCPCS: 71045 ==

== ENCOUNTER → 2024-11-06 23:13 | Outpatient (BNV) | payer MEDICAID, SELFPAY | PROVIDERS: Admitting Provider Student in an Organized Health Care Education/Training Program; Emergency Provider Student in an Organized Health Care Education/Training Program; PCP Student in an Organized Health Care Education/Training Program; Visit Provider Internal Medicine Cardiovascular Disease | DX: R41.82 Altered mental status, unspecified (principal) | CPT/HCPCS: 93010 ==

== ENCOUNTER → 2024-11-07 00:29 | Outpatient (BNV) | payer MEDICAID, SELFPAY | PROVIDERS: Emergency Provider Student in an Organized Health Care Education/Training Program; PCP Student in an Organized Health Care Education/Training Program; Visit Provider Student in an Organized Health Care Education/Training Program | DX: K74.60 Unspecified cirrhosis of liver (principal) | CPT/HCPCS: 99223; 99232; 99239; 99499 ==

== ENCOUNTER → 2024-11-07 06:02 | Outpatient (BNV) | payer MEDICAID, SELFPAY | PROVIDERS: Admitting Provider Student in an Organized Health Care Education/Training Program; Emergency Provider Student in an Organized Health Care Education/Training Program; PCP Student in an Organized Health Care Education/Training Program; Visit Provider Internal Medicine Gastroenterology | DX: K76.82 Hepatic encephalopathy (principal) | CPT/HCPCS: 99223 ==

== ENCOUNTER → 2024-11-07 | Outpatient (BNV) | payer MEDICAID, SELFPAY | PROVIDERS: Emergency Provider Student in an Organized Health Care Education/Training Program; PCP Student in an Organized Health Care Education/Training Program; Visit Provider Radiology Diagnostic Radiology | DX: K74.69 Other cirrhosis of liver (principal); R16.1 Splenomegaly, not elsewhere classified; I81 Portal vein thrombosis; M41.24 Other idiopathic scoliosis, thoracic region; M43.12 Spondylolisthesis, cervical region; R41.82 Altered mental status, unspecified; N28.1 Cyst of kidney, acquired | CPT/HCPCS: 70450; 71260; 72125; 74177; 76705 ==

== ENCOUNTER 2024-11-12 16:00 | Inpatient (IN) | payer MEDICAID, SELFPAY ==
[2024-11-12] VITALS (7 sets, daily range): BP systolic 139–171; BP diastolic 53–80; PULSE 71–90; RESP 12–17; TEMP 36.6–36.7; O2SAT 99–100; BMI 27.5
--- NOTE | ~2024-11-12 | XR_ITS ---
CLINICAL HISTORY: cp 1 view chest x-ray. Comparison: 11/06/2024 Findings: No pneumothorax Heart size normal. No acute fracture. Impression: There is incomplete inspiration with crowding of blood vessels in the hilar regions. The lungs are otherwise clear. This document has been electronically signed by: Huey Vargas MD on 11/12/2024 18:22:52
--- NOTE | ~2024-11-12 | CT_ITS ---
CLINICAL HISTORY: CP +elevated D-dimer CTA angiography chest using bolus contrast injection. 3-D postprocessing Comparison: 11/06/2024 Findings: Normal thoracic aorta and branch vessels. Pulmonary artery diameter is normal. Heart size is enlarged. . RV/LV ratio normal. No pericardial effusion. Trachea and esophagus are unremarkable. There is distal esophagogastric junction mucosal thickening which may be due to reflux esophagitis. No pleural effusion. There is mild diffuse bilateral ground-glass opacity throughout both lungs. No consolidations. Below the diaphragm , a portosystemic intrahepatic shunt is present. A 2.5 cm hiatal hernia is present. The spleen is enlarged in the portal vein is enlarged. Portal vein patency can not be determined due to arterial phase targeting. No acute fractures Impression: Normal CTA angiography of the aorta. Negative for pulmonary embolus. Cardiomegaly with mild diffuse ground-glass opacity throughout both lungs consistent with alveolar pulmonary edema. There is paraseptal emphysema in the right upper lobes This document has been electronically signed by: Huey Vargas MD on 11/12/2024 21:00:59
--- NOTE | 2024-11-12 16:07 | ECG_ITS ---
Test Reason : chest pain Blood Pressure : */* mmHG Vent. Rate : 69 BPM Atrial Rate : 69 BPM P-R Int : 128 ms QRS Dur : 84 ms QT Int : 428 ms P-R-T Axes : 20 8 51 degrees QTcB Int : 458 ms Normal sinus rhythm Normal ECG When compared with ECG of 06-Nov-2024 23:40, No significant change was found Referred By: Generic ED Physician Electronically Signed By: POP DAVIES MD
--- NOTE | 2024-11-12 16:54 | ED_ITS ---
HPI - Chest Pain General Chief Complaint: Chest Pain Stated Complaint: Chest pain Time Seen by Provider: 11/12/24 16:20 Source: patient, EMS, old records reviewed and nurse discharge planner Mode of arrival: EMS Limitations: no limitations History of Present Illness ED Provider: DR. Puente HPI narrative: A 63-year-old male with pertinent history HCV cirrhosis with varices, s/p tips, portal and splenic vein thrombosis, chronic thrombocytopenia, HTN, noncompliant with medication, patient currently live at the [facility] brought in by ambulance for evaluation of a chest pain that started early today. Chest pain is localized to the mid chest with no radiation, associated with dizziness and shortness of breath, started around noon time today. Related Data Previous Rx's ?Medication ?Instructions ?Recorded carvedilol 3.125 mg tablet 3.125 mg PO BID #60 tabs 11/11/24 lactulose 10 gram/15 mL oral 20 g (30 mL) PO TID #3,000 mL 11/11/24 solution Allergies Allergy/AdvReac Type Severity Reaction Status Date / Time aspirin AdvReac Severe stomach Verified 11/12/24 16:23 bleeding NSAIDS (Non-Steroidal AdvReac Severe liver Verified 11/12/24 16:23 Anti-Inflamma concerns Review of Systems 2 Review of Systems: All other systems are reviewed and are negative Constitutional: Reports as per HPI and Reports no additional constitutional complaints Eyes: Reports as per HPI and Reports no additional eye complaints Reports system reviewed and no additional complaints, except as documented Cardiovascular: Reports as per HPI and Reports no additional cardiovascular complaints Respiratory: Reports as per HPI and Reports no additional respiratory complaints Gastrointestinal: Reports as per HPI and Reports no additional gastrointestinal complaints Genitourinary: Reports no additional female genitourinary complaints Musculoskeletal: Reports no additional musculoskeletal complaints Skin/Breast: Reports system reviewed and no additional complaints, except as docu Psychiatric: Reports no additional psychiatric complaints Endocrine: Reports no additional endocrine complaints Hematologic/Lymphatic: Reports no additional hematologic/lymphatic complaints Allergic/Immunologic: Reports no additional allergic/immunologic complaints Reports system reviewed and no additional complaints, except as documented and Reports Abnormal speech present [facility] Past Medical History Medical History Hepatic encephalopathy Portal vein thrombosis Cirrhosis Splenic vein thrombosis Sepsis Cirrhosis of liver with ascites Abdominal pain Thrombocytopenia Pancytopenia Cirrhosis Hepatitis C virus infection Esophageal varices Pancytopenia Iron deficiency anemia Cirrhosis Hepatitis C HBP (high blood pressure) Surgical History S/P TIPS (transjugular intrahepatic portosystemic shunt) H/O left inguinal hernia repair H/O eye surgery History of esophagogastroduodenoscopy (EGD) H/O colonoscopy Family History Family History Maternal Grandmother Breast CA Uterus cancer Mother Primary lung cancer of unknown cell type Social History Social History Household Members: None Household Members Other:: [facility]pc Housing: Other Housing Other:: fpc Are you a primary menagerie caretaker to a significant other at home: No Do you presently have visiting nurse or other home services: No Comment: pt refusing alarm's Patient Tobacco Use Status: Tobacco use Unknown Tobacco use type: Cigarette Cigarette Packs Per Day: 1 Cigarettes Per Day: 5 Years Smoked: 30 Smoked in Last 30 Days: Yes Second Hand Smoke Exposure: No Use of substances other than those prescribed or required for medical reasons: No Substance Use Type: Crack/Cocaine and Marijuana Advance Directives: Yes Advance Directives on File: Yes Advance Directives Date on File: 04/02/24 service: No Current occupational status: retired Physical Exam 2 Vital Signs: Vital Signs: Last Vital Signs Temp 97.8 F 11/12/24 16:22 Pulse 79 11/12/24 19:01 Resp 12 11/12/24 19:01 BP 171/66 H 11/12/24 19:01 Pulse Ox 100 11/12/24 19:01 O2 Del Method Room Air 11/12/24 19:01 BMI result Body Mass Index 27.5 Vital signs have been reviewed and appear to be correct. Blood pressure elevated. Heart rate normal. Respiratory rate normal. Temperature normal. Oxygen saturation normal. Appearance: Alert. Disoriented to person and time. No acute distress. Head: Normal external exam. Normocephalic. Atraumatic. No Lim signs noted. No raccoon eyes noted Eyes: PERRLA. EOMI. Conjunctiva and sclera normal. Eyelids normal. ENT: TM's Normal. Pharynx normal. Uvula midline. Moist mucous membranes. No trismus noted. No drooling noted. No muffled voice noted. Neck: Normal inspection. Neck supple. FROM. No adenopathy. Thyroid Normal. No meningeal signs. No neck mass noted. CVS: Normal heart rate and rhythm. Heart sound normal. No murmurs noted. Pulses normal throughout. Respiratory: No respiratory distress. Painless inspiration. Breath sounds normal. No wheezes/rales/rhonchi noted. Chest nontender. No accessory muscle usage noted or decreased air movement noted. Abdomen: Soft and nontender. Bowel sounds normal in all 4 quadrants. No distention noted. No organomegaly noted. No visible injury noted. Back: No CVA tenderness. Full range of motion noted. Skin: Skin warm and dry. Normal skin color. Normal skin turgor. No rashes/lesions/lacerations noted. Extremities: No lower extremity edema. Extremities exhibit normal range of motion. Extremities nontender. Neuro: Cranial nerve exam: II-XII are grossly intact No motor deficit. No sensory deficit. Reflexes normal. Course Reevaluation(s) Reevaluation #1: 63-year-old male with HCV cirrhosis came in with multiple symptoms including chest pain, dizziness, shortness of breath, feeling disoriented. 1. Hyperammonemia patient admitted that he is not compliant with his home lactulose, will administer a lactulose in the ED. 2. Chest pain troponin is negative x2, elevated D-dimer but negative CT angio for pulmonary embolism. Patient will be admitted for hyperammonemia. Time: 20:38 Medications Administered Discontinued Medications Generic Name Dose Route Start Last Admin Trade Name Freq PRN Reason Stop Dose Admin Iohexol 65 ml 11/12/24 20:12 11/12/24 20:12 Iohexol 350 Mg/Ml 100 Ml Infus..Btl IV 11/12/24 20:13 65 ml ONCE ONE Administration Lactulose 60 gm 11/12/24 19:19 11/12/24 19:32 Lactulose 20 Gm/30 Ml Solution PO 11/12/24 19:20 60 gm ONCE ONE Administration Medical Decision Making Differential Diagnosis Differential Diagnoses: The differential diagnosis associated with the presentation includes (Pneumonia, pneumothorax, pleural effusion, pulmonary embolism, metabolic encephalopathy, ACS, electrolyte derangement, severe anemia.) Admission/Observation Consideration of admission/observation: Escalation of care including admission/observation considered Consult Healthcare Provider Management of the patient was discussed with: Hospitalist (Dr. Maradiaga) Lab Data MDM Lab Attestation statement: I reviewed the patient's lab results. 11/12/24 17:04 11/12/24 16:54 Labs: Lab Results 11/12/24 11/12/24 11/12/24 Range/Units 16:54 17:04 17:05 WBC 3.3 L (4.8-10.8) X10*3/uL RBC 3.99 L (4.60-5.80) X10*6/uL Hgb 11.3 L (14.0-18.0) g/dl Hct 34.4 L (42.0-52.0) % MCV 86.2 (80.0-98.0) fL MCH 28.3 (27.0-33.0) pg MCHC 32.8 (31.0-36.0) g/dl RDW 17.4 H (11.0-16.0) % Plt Count 27 L (160-400) X10*3/uL MPV 11.9 (9.4-12.4) fL Immature Gran % (Auto) 0.3 (0.0-0.4) % Neut % (Auto) 66.1 (45-73) % Lymph % (Auto) 23.3 (20-40) % [place] % (Auto) 8.2 (2-11) % Eos % (Auto) 2.1 (0-4) % Baso % (Auto) 0.0 (0-2) % Lymph # (Auto) 0.8 L (1.2-4.9) X10*3/uL [place] # (Auto) 0.3 (0.1-1.2) X10*3/uL Eos # (Auto) 0.1 (0.0-0.4) X10*3/uL Baso # (Auto) 0.0 (0.0-0.2) X10*3/uL Abs Immat Gran (auto) 0.01 (0.00-0.03) X10*3/uL Absolute Neuts (auto) 2.2 (2.0-8.3) x10*3/uL Absolute Nucleated RBC 0.000 (0.0-0.012) X10*3/uL Nucleated RBC % (auto) 0.0 (0.0-0.2) /100WBC PT 15.1 H (10.9-12.4) SEC INR 1.3 H (0.9-1.1) D-Dimer High Sensitivty 714 NG/ML Sodium 144 (135-145) mmol/L Potassium 4.7 (3.3-5.1) mmol/L Chloride 115 H (96-108) mmol/L Carbon Dioxide 27 (22-29) mmol/L Anion Gap 7 L (12-20) BUN 17 H (9-16) mg/dL Creatinine 0.69 (0.5-1.4) mg/dL Estim Creat Clear Calc 121.8 Estimated GFR > 60 Random Glucose 151 H (60-115) mg/dL Calcium 8.6 (8.4-10.2) mg/dL Total Bilirubin 1.5 H (0.0-1.0) mg/dL Direct Bilirubin 0.7 H (0.0-0.5) mg/dL AST 51 H (5-37) U/L ALT 33 (0-40) U/L Alkaline Phosphatase 139 H (39-117) U/L Ammonia 121 H (13-55) umol/L Troponin I High Sens 11.9 D (<3.5-35.0) ng/L B-Natriuretic Peptide 76 (<100) pg/mL Total Protein 6.5 (6.5-8.0) g/dL Albumin 2.9 L (3.5-5.0) g/dL Lipase 35 (8-78) U/L Influenza Type A (PCR) NEGATIVE (Negative) Influenza Type B (PCR) NEGATIVE (Negative) RSV RNA Qual (PCR) NEGATIVE (Negative) SARS-CoV-2 RNA (RT-PCR) NEGATIVE (Negative) 11/12/24 Range/Units 19:40 WBC (4.8-10.8) X10*3/uL RBC (4.60-5.80) X10*6/uL Hgb (14.0-18.0) g/dl Hct (42.0-52.0) % MCV (80.0-98.0) fL MCH (27.0-33.0) pg MCHC (31.0-36.0) g/dl RDW (11.0-16.0) % Plt Count (160-400) X10*3/uL MPV (9.4-12.4) fL Immature Gran % (Auto) (0.0-0.4) % Neut % (Auto) (45-73) % Lymph % (Auto) (20-40) % [place] % (Auto) (2-11) % Eos % (Auto) (0-4) % Baso % (Auto) (0-2) % Lymph # (Auto) (1.2-4.9) X10*3/uL [place] # (Auto) (0.1-1.2) X10*3/uL Eos # (Auto) (0.0-0.4) X10*3/uL Baso # (Auto) (0.0-0.2) X10*3/uL Abs Immat Gran (auto) (0.00-0.03) X10*3/uL Absolute Neuts (auto) (2.0-8.3) x10*3/uL Absolute Nucleated RBC (0.0-0.012) X10*3/uL Nucleated RBC % (auto) (0.0-0.2) /100WBC PT (10.9-12.4) SEC INR (0.9-1.1) D-Dimer High Sensitivty NG/ML Sodium (135-145) mmol/L Potassium (3.3-5.1) mmol/L Chloride (96-108) mmol/L Carbon Dioxide (22-29) mmol/L Anion Gap (12-20) BUN (9-16) mg/dL Creatinine (0.5-1.4) mg/dL Estim Creat Clear Calc Estimated GFR Random Glucose (60-115) mg/dL Calcium (8.4-10.2) mg/dL Total Bilirubin (0.0-1.0) mg/dL Direct Bilirubin (0.0-0.5) mg/dL AST (5-37) U/L ALT (0-40) U/L Alkaline Phosphatase (39-117) U/L Ammonia (13-55) umol/L Troponin I High Sens 12.0 (<3.5-35.0) ng/L B-Natriuretic Peptide (<100) pg/mL Total Protein (6.5-8.0) g/dL Albumin (3.5-5.0) g/dL Lipase (8-78) U/L Influenza Type A (PCR) (Negative) Influenza Type B (PCR) (Negative) RSV RNA Qual (PCR) (Negative) SARS-CoV-2 RNA (RT-PCR) (Negative) Independent Interpretation I performed an independent interpretation of an: Plain X-Ray (Chest:There is incomplete inspiration with crowding of blood vessels in the hilar regions. The lungs are otherwise clear.) Radiology Impression Discussion of test interpretation with radiology: I have reviewed the radiologist's reading. Discharge Plan Discharge Clinical Impression: Hyperammonemia, Cirrhosis of liver, Chest pain Patient Disposition: Admitted As Inpatient Print Language: [place] Timorese
[2024-11-12 17:09] LABS: MANUAL DIFF FLAG NO
[2024-11-12 17:12] LABS: Eosinophils Absolute Auto 0.1 X10*3/uL (0.0-0.4); Eosinophils Percent Auto 2.1 % (0-4); Hematocrit 34.4 % (42.0-52.0); Hemoglobin 11.3 g/dl (14.0-18.0); Imm Gran Abs Auto 0.01 X10*3/uL (0.00-0.03); Imm Gran Pct Auto 0.3 % (0.0-0.4); Lymphocytes Absolute Auto 0.8 X10*3/uL (1.2-4.9); Lymphocytes Percent Auto 23.3 % (20-40); Mean Corpuscular HGB Conc 32.8 g/dl (31.0-36.0); Mean Corpuscular Hemoglobin 28.3 pg (27.0-33.0); Mean Corpuscular Volume 86.2 fL (80.0-98.0); Mean Platelet Volume 11.9 fL (9.4-12.4); Monocytes Absolute Auto 0.3 X10*3/uL (0.1-1.2); Monocytes Percent Auto 8.2 % (2-11); Neutrophils Absolute Auto 2.2 x10*3/uL (2.0-8.3); Neutrophils Percent Auto 66.1 % (45-73); Red Blood Count 3.99 X10*6/uL (4.60-5.80); Red Cell Distribution Width 17.4 % (11.0-16.0); White Blood Count 3.3 X10*3/uL (4.8-10.8)
[2024-11-12 17:18] LABS: Ammonia 121 umol/L (13-55)
[2024-11-12 17:19] LABS: INTERNATIONAL NORM RATIO 1.3 (0.9-1.1); Prothrombin Time 15.1 SEC (10.9-12.4)
[2024-11-12 17:20] LABS: D Dimer High Sensitivity 714 NG/ML
[2024-11-12 17:32] LABS: B Type Natriuretic Peptide 76 pg/mL (<100)
[2024-11-12 17:34] LABS: Troponin-I High Sensitivity 11.9 ng/L (<3.5-35.0)
[2024-11-12 17:35] LABS: Alanine Aminotransferase 33 U/L (0-40); Albumin Level 2.9 g/dL (3.5-5.0); Alkaline Phosphatase 139 U/L (39-117); Anion Gap 7 (12-20); Aspartate Amino Transferase 51 U/L (5-37); Bilirubin Direct 0.7 mg/dL (0.0-0.5); Bilirubin Total 1.5 mg/dL (0.0-1.0); Blood Urea Nitrogen 17 mg/dL (9-16); Calcium 8.6 mg/dL (8.4-10.2); Carbon Dioxide 27 mmol/L (22-29); Chloride 115 mmol/L (96-108); Creatinine Clr Calc Pharmacy 121.8; Estimated Glomerular Filt Rate > 60; Glucose Random 151 mg/dL (60-115); Lipase 35 U/L (8-78); Potassium 4.7 mmol/L (3.3-5.1); Sodium 144 mmol/L (135-145); Total Protein 6.5 g/dL (6.5-8.0)
[2024-11-12 17:38] LABS: Influenza A PCR NEGATIVE (Negative); Influenza B PCR NEGATIVE (Negative); Resp Syncy Virus RNA Qual PCR NEGATIVE (Negative); SARS COV2 PCR INHOUSE NEGATIVE (Negative)
[2024-11-12 17:44] LABS: Platelet Count 27 X10*3/uL (160-400)
--- NOTE | 2024-11-12 19:15 | PC.NURSE ---
assumed care for pt at this time. pt alert and oriented x3 resting comfortably in stretcher. Updated pt on care plan to place an iv and obtain ct angio but pt refused stating he does not like the way contrast makes him feel. Went in with MD to explain the purpose of the test and further educate the pt but pt refused.
--- OUTSIDE RECORDS SUMMARY | 2024-11-12 19:30 | XMS_ITS | Encounter Summary ---
Author Organization [employer] Address [address] [facility] [address] [place] [address] Care Team Providers Care Tapper Operator Name Role Phone Leta Soto MD Primary Care Pro vider Yajaira Antonio Unavailable Encounter Details Date Type Department Care Team (Late st Contact Info) Description 10/31/2024 Orders Only [facility] External Provider, [facility] Social History Tobacco Use Types Packs/Day [...] Care Team (Late st Contact Info) Description 11/24/2024 9:00 AM EDT Office Visit [facility] [address] [place] [address] Ysabel Omer MD [address] [place] [address] documented as of this encounter Goals Goal Patient Goal Type Associated Problems Recent Progress Patient-Stated? Author Blood Pressure < 140/90 Blood Pressure 149/78(2023 1:02 PM EST) No Loan Talbot Record your blood pressure once per day Blood Pressure No Loan Talbot documented as of this encounter Procedures Procedure Name Priority Date/Time Associated Diagnosis Comments XR THORACIC SPINE 2 VIEWS Routine 11/03/2024 1:05 PM EST XR LUMBAR SPINE 2-3 VIEWS Routine 11/03/2024 12:26 PM EST documented in this encounter Results * XR Thoracic Spine 2 Views (11/03/2024 1:05 PM EST) Anatomical Region Laterality Modality Spine, T-spine Radiographic Susy ging 11/03/2024 1:05 PM EST Narrative 11/03/2024 1:07 PM EST ? [facility] ?[address] ?[place] [address] ?XRay Report ? Signed ? Patient: Godfrey Mcmanus,Adelso ?MR#: [id number] ?? [id number] ? : 1960 ?Acct:[id number] ? Age/Sex: 63 / M ?ADM Date: 10/31/24 ? Loc: HO.XRAY ? Attending Dr: Yajaira Antonio MD ? Ordering Physician: Yajaira Antonio MD ?? Date of Service: 10/31/24 ?? Procedure(s): XR thoracic spine 2V ?? Accession Number(s): [id number] ? cc: Leta Soto MD; Yajaira Antonio MD ? CLINICAL HISTORY: W19.XXXA - Unspecified fall, initial encounter ? 3 views thoracic spine ? Comparison: None ? Findings: ?? Limited visualization of the upper thoracic spine. ?? No definite fracture or malalignment. ?? Mild multilevel degenerative changes. ? IMPRESSION: ?? No acute findings. Limited study as detailed. ? This document has been electronically signed by: Esdras Lopez MD on ?? 11/03/2024 13:05:56 ? Dictated By: ?Esdras Lopez MD ? Signed By: ?<Electronically signed by Esdras Lopez MD in OV> ? 11/03/24 1307 ? DD/ 1305 ? TD/TT: 11/03/24 1305 ? Financial Assistance Advisor: ? Procedure Note Joshemelijuanydaria, Image - 11/03/[address] [address] XRay Report Signed Patient: Adelso BeebeMR#: [id number] : 1960cct:[id number] Age/Sex: 63 / MADM Date: 10/31/24 Loc: HO.SONG Attending Dr: Yajaira Antonio MD Ordering Physician: Yajaira Antonio MD Date of Service: 10/31/24 Procedure(s): XR thoracic spine 2V Accession Number(s): [id number] cc: Leta Soto MD; Yajaira Antonio MD CLINICAL HISTORY: W19.XXXA - Unspecified fall, initial encounter 3 views thoracic spine Comparison: None Findings: Limited visualization of the upper thoracic spine. No definite fracture or malalignment. Mild multilevel degenerative changes. IMPRESSION: No acute findings. Limited study as detailed. This document has been electronically signed by: Esdras Lopez MD on 11/03/2024 13:05:56 Dictated By: Esdras Lopez MD Signed By: <Electronically signed by Esdras Lopez MD in OV> 11/03/24 1307 DD/ 1305 TD/TT: 11/03/24 1305 Financial Assistance Advisor: us [facility] External Provider IMG XR PROCEDURES Final Result * XR Lumbar Spine 2-3 Views (11/03/2024 12:26 PM EST) Anatomical Region Laterality Modality Spine, L-spine Radiographic Susy ging 11/03/2024 12:2 6 PM EST Narrative 11/03/2024 12:28 PM EST ? [facility] ?[address] ?[place] [address] ?XRay Report ? Signed ? Patient: Adelso Beebe ?MR#: [id number] ?? [id number] ? : 1960 ?Acct:[id number] ? Age/Sex: 63 / M ?ADM Date: 10/31/24 ? Loc: HO.XRAY ? Attending Dr: Yajaira Antonio MD ? Ordering Physician: Yajaira Antonio MD ?? Date of Service: 10/31/24 ?? Procedure(s): XR lumbar spine 2-3V ?? Accession Number(s): [id number] ? cc: Leta Soto MD; Yajaira Antonio MD ? CLINICAL HISTORY: M54.9 - Dorsalgia, unspecified ? 3 views lumbar spine ? Comparison: None ? Findings: ?? No acute fracture or acute malalignment. ?? Near-complete disc space loss at L5-S1. ?? Mild facet hypertrophy within the lower lumbar spine. ?? Portion of a tips noted. ? IMPRESSION: ?? No acute findings. ? Degenerative changes most pronounced at L5-S1. ? This document has been electronically signed by: Esdras Lopez MD on ?? 11/03/2024 12:26:12 ? Dictated By: ?Esdras Lopez MD ? Signed By: ?<Electronically signed by Esdras Lopez MD in OV> ? 11/03/247 ? DD/ 1226 ? TD/TT: 02/24/25 1226 ? Financial Assistance Advisor: ? Procedure Note Donaaronter, Image - 11/03/[address] [address] XRay Report Signed Patient: Adelso BeebeMR#: [id number] : 2Acct:[id number] Age/Sex: 63 / MADM Date: 10/31/24 Loc: HO.XRAY Attending Dr: Yajaira Antonio MD Ordering Physician: Yajaira Antonio MD Date of Service: 10/31/24 Procedure(s): XR lumbar spine 2-3V Accession Number(s): [id number] cc: Leta Soto MD; Yajaira Antonio MD CLINICAL HISTORY: M54.9 - Dorsalgia, unspecified 3 views lumbar spine Comparison: None Findings: No acute fracture or acute malalignment. Near-complete disc space loss at L5-S1. Mild facet hypertrophy within the lower lumbar spine. Portion of a tips noted. IMPRESSION: No acute findings. Degenerative changes most pronounced at L5-S1. This document has been electronically signed by: Esdras Lopez MD on 11/03/2024 12:26:12 Dictated By: Esdras Lopez MD Signed By: <Electronically signed by Esdras Lopez MD in OV> 11/03/24 1227 DD/ 1226 TD/TT: 11/03/24 1226 Financial Assistance Advisor: [facility] External Provider IMG XR PROCEDURES Final Result documented in this encounter Visit Diagnoses Not on filedocumented in this encounter Additional Health Concerns Assessment Noted Time PHQ-9 Depression Total Score: 18 023 11:23 AM EDT documented as of this encounter Care Teams Tapper Operator Relationship Specialty Start Date End Date Leta Soto MD [address] [place] [id number] PCP - General Internal Medicine 04/11/23 Yajaira Antonio [address]rd [place] [address] Gastroenterology 09/04/24 documented as of this encounter
--- OUTSIDE RECORDS SUMMARY | 2024-11-12 19:30 | XMS_ITS | Encounter Summary ---
Author Organization [employer] Address [address] [facility] 7[address] [place] [address] Care Team Providers Care Power Truck Driver Name Role Phone Leta Soto MD Primary Care Pro vider Yajaira Antonio Unavailable Encounter Details Date Type Department Care Team (Late st Contact Info) Description 11/11/2024 Telephone [facility] [address] [place] [address] Leta Soto MD [address] [place] [address] Social History Tobacco Use Types Packs/Day Years [...] encounter Miscellaneous Notes * Telephone Encounter - Phillip Donahue - 11/11/2024 12:27 PM EST Tc from amrita stiles complex case manager requesting the status on pt documented in this encounter Plan of Treatment Upcoming Encounters Date Type Department Care Team (Late st Contact Info) Description 11/24/2024 9:00 AM EDT Office Visit [facility] [address] [place] [address] Ysabel Omer MD [address] [place] [address] documented as of this encounter Goals Goal [...] documented as of this encounter Care Teams Power Truck Driver Relationship Specialty Start Date End Date Leta Soto MD [address] [place] [id number] PCP - General Internal Medicine 04/11/23 Yajaira Antonio [address] [place] [address] Drive 3rd [place] [address] Gastroenterology 09/04/24 documented as of this encounter
--- OUTSIDE RECORDS SUMMARY | 2024-11-12 19:30 | XMS_ITS | Encounter Summary ---
Author Organization [employer] Address [address] [place] [address] Care Team Providers Care Veterinary Bacteriologist Name Role Phone Leta Soto MD Primary [...] Description 11/24/2024 9:00 AM EDT Office Visit [facility] [address] [place] [address] Ysabel Omer MD [address] [place] [address] documented as of this encounter Goals Goal [...] EST Narrative 10/28/2024 9:10 PM EST ? [facility] ?[address] ?[place] [address] ? CT Scan Report ? Signed ? Patient: Godfrey Mcmanus,Adelso ?MR#: [id number] ?? [id number] ? : 1960 ?Acct:[id number] ? Age/Sex: 63 / M ?ADM Date: 10/28/24 ? Loc: HO.ED ? Attending Dr: ? Ordering Physician: Venice Morrison CNP ?? Date of Service: 10/28/24 ?? Procedure(s): CT abdomen pelvis w IV con ?? Accession Number(s): [id number] ? cc: Venice Morrison CNP; Leta Soto MD ? Report Number: ?? [id number]: Total DLP = ??687.00 mGy-cm ? CLINICAL [...] fat and recanalized small umbilical vein. ?? Ktaj-ub-ivtvoumi colonic stool and moderate rectal stool. ?? [...] portal vein and splenic vein. ?? 3. Sjhz-pu-xihcmhiv colonic stool and moderate rectal stool. ?? 4. Additional stable findings as described. ? This document has been electronically signed by: Daphne Jensen MD on ?? 10/28/2024 21:08:32 ? Dictated By: ?Daphne Jensen MD ? Signed By: ?<Electronically signed by Daphne Jensen MD in OV> ? 10/28/242108 ? DD/ 07 ? TD/TT: 10/28/242107 ? Marketing Compliance Manager: ? Procedure Note Donaaronter, Image - 10/28/[address] [address] [address] Scan Report Signed Patient: Adelso BeebeMR#: [id number] : 1960cct:[id number] Age/Sex: 63 / MADM Date: 10/28/24 Loc: HO.ED Attending Dr: Ordering Physician: Venice Morrison CNP Date of Service: 10/28/24 Procedure(s): CT abdomen pelvis w IV con Accession Number(s): [id number] cc: Venice Morrison CNP; Leta Soto MD Report Number: [id number]: Total DLP = 687.00 mGy-cm CLINICAL HISTORY: [...] hernia containing fat and recanalized small umbilicalvein. Lsxv-lt-bzxjdkpu colonic stool and moderate rectal stool. Prostate [...] of portal vein and splenic vein. 3. Dixj-ll-fplmdqcr colonic stool and moderate rectal stool. 4. Additional stable findings as described. This document has been electronically signed by: Daphne Jensen MD on 10/28/2024 21:08:32 Dictated By: Daphne Jensen MD Signed By: <Electronically signed by Daphne Jensen MD in OV> 10/28/242108 DD/ 07 TD/TT: 10/28/242107 Marketing Compliance Manager: [facility] External Provider IMG CT PROCEDURES Edited Result - Final * High Sensitivity Troponin I (10/28/2024 7:29 PM EST) TROPONIN I HIGH SENSITIVITY 5.2 <3.5 - 35.0 ng/L [facility] Comment:The Clifford high sens itivity Troponin-I results should beused in conjunction with other diagnostic information suchas ECG, clinical observations and information, and patientsymptoms to aid in the diagnosis of MO. 10/28/2024 7:29 PM EST 10/28/2024 7:32 PM EST Generic External Data Provider LAB BLOOD ORDERAB LES Final Result [facility] [address] [place] [address] [phone] documented in this encounter Visit Diagnoses Not on filedocumented in this encounter Additional Health Concerns Assessment Noted Time PHQ-9 Depression Total Score: 18 023 11:23 AM EDT documented as of this encounter Care Teams Veterinary Bacteriologist Relationship Specialty Start Date End Date Leta Soto MD [address] [place] [address] PCP - General Internal Medicine 04/11/23 Yajaira Antonio [address] [place] [address] Gastroenterology 09/04/24 documented as of this encounter
--- OUTSIDE RECORDS SUMMARY | 2024-11-12 19:30 | XMS_ITS | Clinical Summary ---
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 Follow up with [facility]: Not recommended for follow-up 2. Patient goal is be connected to services 3. Behavioral Recommendations a. Patient will engage in service once established b. Patient may return to [facility] for medical needs until a PCP is [...] Encounters Date Type Department Care Team Description 11/11/2024 Telephone [facility] [address] [place] [address] Leta Soto MD 11/07/2024 Orders Only [facility] External Provider, [facility] 11/03/2024 Telephone [facility] [address] [place] [address] Leta Soto MD No Show 10/31/2024 Orders Only [facility] External Provider, [facility] 10/28/2024 Orders Only GENERIC EXTERNAL DATA DEPARTMENT Provider, Generic External Data 10/28/2024 Refill [facility] [address] [place] [address] Leta Soto MD 10/23/2024 Refill [facility] [address] [place] [address] Kelly Dick, PharmD 10/22/2024 Patient Outreach [facility] [address] [place] [address] Leta Soto MD Transition Of Care (Tcm) (HDF- Scheduled) 10/22/2024 Telephone [facility] [address] [place] [address] Kelly Dick, Jayna 10/22/2024 Telephone [facility] [address] [place] [address] Leta Soto MD [employer] [facility] (The patient requested [employer] services. I called to ask what ADLs he needs assistance with, and he stated that he is unable to talk at this time, and asked for me to call back at about 10:30 today.); [facility] [facility] [facility] (I called the patient regarding his request for [employer] services. I asked what ADLs he needs assistance with, and he asked me to speak with Clementereebeny. Jonathan stated that he needs assistance with bathing, getting dressed, medications, housekeeping, cooking, and going to appointments. She stated that if he is approved, she will be his [employer]. I informed her that once he is referred, he will be receiving a call from [facility], to set up an evaluation. She requested for [facility] to call her, because sometimes the pa) 10/13/2024 Telephone [facility] [address] [place] [address] Nhung Caicedo [place] december recall 10/08/2024 Orders Only [facility] External Provider, [facility] 09/02/2024 Orders Only GENERIC EXTERNAL DATA DEPARTMENT Provider, Generic External Data from Last 3 Months Immunizations Name Administration [...] Description 11/24/2024 9:00 AM EDT Office Visit [facility] [address] [place] [address] Ysabel Omer MD [address] [place] [address] Health Maintenance Due Date Last Done Comments [...] Procedure Name Priority Date/Time Associated Diagnosis Comments US ABDOMEN LIMITED Routine 11/07/2024 9: [address] ABDOMEN PELVIS W CONTRAST Routine 11/07/2024 3:[address] CHEST W CONTRAST Routine 11/07/2024 3 :[address] CERVICAL SPINE WO CONTRAST Routine 11/07/2024 2:25 AM EST URINALYSIS WITH REFLEX MICROSCOPIC Routine 11/07/2024 2:[address] HEAD WO CONTRAST Routine 11/07/2024 1 :40 AM EST XR THORACIC SPINE 2 VIEWS Routine 11/03/2024 1:05 PM EST XR LUMBAR SPINE 2-3 VIEWS Routine 11/03/2024 12:[address] ABDOMEN PELVIS W CONTRAST Routine 10/28/2024 [...] AND SCREEN Routine 09/02/2024 10:50 AM EST LIPID PANEL, STANDARD Routine 04/06/2023 10:00 AM EDT Healthcare maintenance from Last 3 Months or Most Recently Relevant to Health Maintenance Results * US Abdomen Limited (11/07/2024 9:25 AM EST) Only the most recent of2 resultswithin the time period is included. Anatomical Region Laterality Modality Abdomen Ultrasound 11/07/2024 9:25 AM EST Narrative 11/07/2024 9:55 AM EST ? [facility] ?[address] ?[place] [address] ? Ultrasound Report ? Signed ? Patient: Godfrey Mcmanus,Adelso ?MR#: [id number] ?? [id number] ? : 1960 ?Acct:[id number] ? Age/Sex: 63 / M ?ADM Date: 02/28/25 ? Loc: HO.[place] ?MEDSURG-3 ? Attending Dr: Ivis HAMILTON ? Ordering Physician: Lc Cohn MD ?? Date of Service: 11/07/24 ?? Procedure(s): US abdomen limited ?? Accession Number(s): [id number] ? cc: Leta Soto MD; Lc Cohn MD ? EXAMINATION: ?? US ABDOMEN LIMITED ? CLINICAL INFORMATION: ?? Right upper quadrant pain. His known cirrhosis ? COMPARISON: ?? CT abdomen and pelvis 11/07/2024. ? TECHNIQUE: ?? Real-time imaging of the right upper quadrant abdominal viscera. ? FINDINGS: There is slight patient breathing motion during the exam ?? limiting evaluation. ? PANCREAS: Visualized portions are unremarkable. ? LIVER: The liver has lobulated contour, heterogeneous with no focal ?? lesion or intrahepatic ductal dilatation. The left lobe is suboptimally ?? visualized due to overlying gas. ? GALLBLADDER: Gallbladder is not visualized and obscured by overlying ?? gas. ? COMMON BILE DUCT: Normal in caliber measuring 0.22 cm in diameter. ? RIGHT KIDNEY: No hydronephrosis. There is no echogenic calculi or ?? hydronephrosis. There is anechoic cyst in upper pole measuring 0.9 x ?? 1.0 x 1.4 cm.. The kidney measures 11.1 cm in maximum dimension. ? FREE FLUID: None. ? US/US abdomen limited ?? IMPRESSION: ?? Findings suggestive of cirrhosis with no focal lesion seen. ? Gallbladder is not visualized. ? Simple cyst upper pole right kidney. ? Electronically signed by: ??Lopez Benjamin MD ??11/07/2024 09:52 AM EST RP ? Dictated By: ?Cassidy,Lopez S MD ? Signed By: ?<Electronically signed by Lopez S MD Cassidy in OV> ?11/07/24 09 ? DD/ 0925 ? TD/TT: 11/07/24 0945 ? Designer: MSM ? Procedure Note Hiral, Image - 11/07/[address] [place] [address] Ultrasound Report Signed Patient: Adelso BeebeMR#: [id number] : 1960cct:[id number] Age/Sex: 63 / MADM Date: 11/07/24 Loc: [facility]: Ivis HAMILTON Ordering Physician: Lc Cohn MD Date of Service: 11/07/24 Procedure(s): US abdomen limited Accession Number(s): [id number] cc: Leta Soto MD; Lc Cohn MD EXAMINATION: US ABDOMEN LIMITED CLINICAL INFORMATION: Right upper quadrant pain. His known cirrhosis COMPARISON: CT abdomen and pelvis 11/07/2024. TECHNIQUE: Real-time imaging of the right upper quadrant abdominal viscera. FINDINGS: There is slight patient breathing motion during the exam limiting evaluation. PANCREAS: Visualized portions are unremarkable. LIVER: The liver has lobulated contour, heterogeneous with no focal lesion or intrahepatic ductal dilatation. The left lobe is suboptimally visualized due to overlying gas. GALLBLADDER: Gallbladder is not visualized and obscured by overlying gas. COMMON BILE DUCT: Normal in caliber measuring 0.22 cm in diameter. RIGHT KIDNEY: No hydronephrosis. There is no echogenic calculi or hydronephrosis. There is anechoic cyst in upper pole measuring 0.9 x 1.0 x 1.4 cm.. The kidney measures 11.1 cm in maximum dimension. FREE FLUID: None. US/US abdomen limited IMPRESSION: Findings suggestive of cirrhosis with no focal lesion seen. Gallbladder is not visualized. Simple cyst upper pole right kidney. Electronically signed by: Lopez Benjamin MD 11/07/2024 09:52 AM EST Dictated By: Lopez Benjamin MD Signed By: <Electronically signed by Lopez Benjamin MD in OV> 11/07/2452 DD/ 4 TD/TT: 11/07/24944 Designer: KAZ us [facility] External Provider IMG US PROCEDURES Final Result * CT Abdomen Pelvis w/ Contrast (11/07/2024 3:31 AM EST) Only the most recent of3 resultswithin the time period is included. Anatomical Region Laterality Modality Body, Pelvis, Abdomen Computed T omography 11/07/2024 3:31 AM EST Narrative 11/07/2024 3:33 AM EST ? [facility] ?[address] ?[place] [address] ? CT Scan Report ? Signed ? Patient: Godfrye Mcmanus,Adelso ?MR#: [id number] ?? [id number] ? : 1960 ?Acct:[id number] ? Age/Sex: 63 / M ?ADM Date: 11/07/24 ? Loc: HO.ED ? Attending Dr: ? Ordering Physician: Gilbert Gandara MD ?? Date of Service: 11/07/24 ?? Procedure(s): CT abdomen pelvis w IV con ?? Accession Number(s): [id number] ? cc: Gilbert Gandara MD; Leta Soto MD ? Report Number: ?? [id number]: Total DLP = 1166.00 mGy-cm ? CLINICAL HISTORY: fall ??please comment on T-spine and L-spine for provider. ? CT abdomen and pelvis with contrast ? Comparison: CT/SR - CT ABDOMEN PELVIS W IV CON - 10/28/24 20:25 EST ? Findings: ?? No consolidation or effusion. ? The liver appears nodular in contour, suggesting cirrhosis a TIPSS is in ?? place. Splenomegaly present. Thrombus redemonstrated within the main ?? portal vein with extension into the medial aspect of the splenic vein, ?? which appears nonocclusive. Similar findings were present on the prior ?? exam. The gallbladder, pancreas, and bilateral adrenal glands are within ?? normal limits for appearance. No hydronephrosis or hydroureter. ?? No dilated loops of bowel or evidence for bowel obstruction. Moderate ?? rectal stool burden present. There is colonic diverticulosis. No CT ?? evidence for acute diverticulitis. Tiny, fat containing umbilical hernia. ? Pelvic contents unremarkable. The bladder is underdistended. Borderline ?? bladder wall thickening present. Tiny, fat containing right inguinal ?? hernia. Nondilated appendix. ? No acute fracture or dislocation injury visualized. The lumbar vertebral ?? body heights appear maintained. Vacuum disc phenomenon present at L2-L3 ?? and L5-S1. ? IMPRESSION: ?? 1. No acute traumatic injury of the abdomen or pelvis identified. ?? 2. Cirrhosis redemonstrated with splenomegaly and a TIPSS in place. There ?? is redemonstration of nonocclusive thrombus within the main portal vein ?? and medial aspect of the splenic vein, unchanged. ?? 3. Borderline bladder wall thickening. This may be related to bladder ?? underdistention. If there is clinical concern for subtle cystitis may ?? consider correlation with urinalysis results for further evaluation. ?? 4. Moderate rectal stool burden. No bowel obstruction. ? This document has been electronically signed by: Eliud Spears MD on ?? 11/07/2024 03:31:23 ? Dictated By: ?Eliud Spears MD ? Signed By: ?<Electronically signed by Eliud Spears MD in OV> ? 11/07/24 0332 ? DD/ 0331 ? TD/TT: 11/07/24 033 ? Designer: ? Procedure Note Hiral, Image - 11/07/[address] [place] [address] [address] Scan Report Signed Patient: Adelso BeebeMR#: [id number] : 2Acct:[id number] Age/Sex: 63 / MADM Date: 11/07/24 Loc: HO.ED Attending Dr: Ordering Physician: Gilbert Gandara MD Date of Service: 11/07/24 Procedure(s): CT abdomen pelvis w IV con Accession Number(s): [id number] cc: Gilbert Gandara MD; Leta Soto MD Report Number: [id number]: Total DLP = 1166.00 mGy-cm CLINICAL HISTORY: fall please comment on T-spine and L-spine forprovider. CT abdomen and pelvis with contrast Comparison: CT/SR - CT ABDOMEN PELVIS W IV CON - 10/28/24 20:25 EST Findings: No consolidation or effusion. The liver appears nodular in contour, suggesting cirrhosis a TIPSS is in place. Splenomegaly present. Thrombus redemonstrated within the main portal vein with extension into the medial aspect of the splenic vein, which appears nonocclusive. Similar findings were present on the prior exam. The gallbladder, pancreas, and bilateral adrenal glands are within normal limits for appearance. No hydronephrosis or hydroureter. No dilated loops of bowel or evidence for bowel obstruction. Moderate rectal stool burden present. There is colonic diverticulosis. No CT evidence for acute diverticulitis. Tiny, fat containing umbilical hernia. Pelvic contents unremarkable. The bladder is underdistended. Borderline bladder wall thickening present. Tiny, fat containing right inguinal hernia. Nondilated appendix. No acute fracture or dislocation injury visualized. The lumbar vertebral body heights appear maintained. Vacuum disc phenomenon present at L2-L3 and L5-S1. IMPRESSION: 1. No acute traumatic injury of the abdomen or pelvis identified. 2. Cirrhosis redemonstrated with splenomegaly and a TIPSS in place. There is redemonstration of nonocclusive thrombus within the main portal vein and medial aspect of the splenic vein, unchanged. 3. Borderline bladder wall thickening. This may be related to bladder underdistention. If there is clinical concern for subtle cystitis may consider correlation with urinalysis results for further evaluation. 4. Moderate rectal stool burden. No bowel obstruction. This document has been electronically signed by: Eliud Spears MD on 11/07/2024 03:31:23 Dictated By: Eliud Spears MD Signed By: <Electronically signed by Eliud Spears MD in OV> 11/07/24 033 DD/ 033 TD/TT: 11/07/24 033 Designer: [facility] External Provider IMG CT PROCEDURES Final Result * CT Chest w/ Contrast (11/07/2024 3:21 AM EST) Anatomical Region Laterality Modality Body, Chest Computed Tomogra phy 11/07/2024 3:21 AM EST Narrative 11/07/2024 3:23 AM EST ? [facility] [facility] ?[address] ?[place] [address] ? CT Scan Report ? Signed ? Patient: Godfrey Mcmanus,Adelso ?MR#: [id number] ?? [id number] ? : 1960 ?Acct:[id number] ? Age/Sex: 63 / M ?ADM Date: 11/07/24 ? Loc: HO.ED ? Attending Dr: ? Ordering Physician: Gilbert Gandara MD ?? Date of Service: 11/07/24 ?? Procedure(s): CT chest w IV con ?? Accession Number(s): [id number] ? cc: Gilbert Gandara MD; Leta Soto MD ? Report Number: ?? [id number]: Total DLP = ??483.00 mGy-cm ? CLINICAL HISTORY: fall ??please comment on T-spine for provider. ? CT chest with contrast ? Comparison: CR - XR CHEST 1 - 11/06/24 23:44 EST ? Findings: ?? Normal heart,size. No significant pericardial effusion. ?? No thoracic aorta aneurysm. ? No focal pulmonary consolidation, pneumothorax, or pleural effusion. ? No acute fractures are visualized. Dextrocurvature present at the thoracic ?? spine. The thoracic vertebral body heights appear maintained. ? Impression: ?? 1. No acute traumatic injury of the chest identified. ? This document has been electronically signed by: Eliud Spears MD on ?? 11/07/2024 03:21:27 ? Dictated By: ?Eliud Spears MD ? Signed By: ?<Electronically signed by Eliud Spears MD in OV> ? 11/07/24 0323 ? DD/ 0321 ? TD/TT: 11/07/24 0321 ? Designer: ? Procedure Note Mehreen Blackman - 11/07/[address] [address] [address] Scan Report Signed Patient: Adelso BeebeMR#: [id number] : 1960cct:[id number] Age/Sex: 63 / MADM Date: 11/07/24 Loc: HO.ED Attending Dr: Ordering Physician: Gilbert Gandara MD Date of Service: 11/07/24 Procedure(s): CT chest w IV con Accession Number(s): [id number] cc: Gilbert Gandara MD; Leta Soto MD Report Number: [id number]: Total DLP = 483.00 mGy-cm CLINICAL HISTORY: fall please comment on T-spine for provider. CT chest with contrast Comparison: CR - XR CHEST 1V - 11/06/24 23:44 EST Findings: Normal heart,size. No significant pericardial effusion. No thoracic aorta aneurysm. No focal pulmonary consolidation, pneumothorax, or pleural effusion. No acute fractures are visualized. Dextrocurvature present at the thoracic spine. The thoracic vertebral body heights appear maintained. Impression: 1. No acute traumatic injury of the chest identified. This document has been electronically signed by: Eliud Spears MD on 11/07/2024 03:21:27 Dictated By: Eliud Spears MD Signed By: <Electronically signed by Eliud Spears MD in OV> 11/07/24 032 DD/ 0321 TD/TT: 11/07/24 032 Designer: [facility] External Provider IMG CT PROCEDURES Final Result * CT Cervical Spine w/o Contrast (11/07/2024 2:25 AM EST) Anatomical Region Laterality Modality Spine, C-spine Computed Tomogra phy 11/07/2024 2:25 AM EST Narrative 11/07/2024 2:26 AM EST ? [facility] ?[address] ?[place] [address] ? CT Scan Report ? Signed ? Patient: Godfrey Adelso Mcmanus ?MR#: [id number] ?? [id number] ? : 1960 ?Acct:[id number] ? Age/Sex: 63 / M ?ADM Date: 11/07/25 ? Loc: HO.ED ? Attending Dr: ? Ordering Physician: Gilbert Gandara MD ?? Date of Service: 11/07/24 ?? Procedure(s): CT cervical spine wo IV con ?? Accession Number(s): [id number] ? cc: Gilbert Gandara MD; Leta Soto MD ? Report Number: ?? [id number]: Total DLP = ??344.00 mGy-cm ? CLINICAL HISTORY: fall and ams ? CT cervical spine without contrast ? Comparison: None ? Findings: ?? There is grade 1 anterolisthesis of C3 on C4, of C6 on C7, and also of C7 ?? on T1. Irregularity and sclerosis of the vertebral body endplates present ?? at C6-C7. Sefb-zx-pxccfjfv degenerative endplate changes are present at ?? the cervical spine. Multilevel bilateral degenerative facet arthropathy ?? also present at the cervical spine No acute fractures or dislocations. ? Impression: ?? 1. No acute fracture or dislocation injury identified at the cervical ?? spine. ? This document has been electronically signed by: Eliud Spears MD on ?? 11/07/2024 02:25:08 ? Dictated By: ?Eliud Spears MD ? Signed By: ?<Electronically signed by Eliud Spears MD in OV> ? 11/07/246 ? DD/ 4 ? TD/TT: 11/07/24224 ? Designer: ? Procedure Note Donaaronter, Image - 11/07/[address] [place] [address] [address] Scan Report Signed Patient: Adelso BeebeMR#: [id number] : 1960cct:[id number] Age/Sex: 63 / MADM Date: 11/07/24 Loc: HO.ED Attending Dr: Ordering Physician: Gilbert Gandara MD Date of Service: 11/07/24 Procedure(s): CT cervical spine wo IV con Accession Number(s): [id number] cc: Gilbert Gandara MD; Leta Soto MD Report Number: [id number]: Total DLP = 344.00 mGy-cm CLINICAL HISTORY: fall and ams CT cervical spine without contrast Comparison: None Findings: There is grade 1 anterolisthesis of C3 on C4, of C6 on C7, and also of C7 on T1. Irregularity and sclerosis of the vertebral body endplates present at C6-C7. Epjn-iu-ebdmxjfw degenerative endplate changes are present at the cervical spine. Multilevel bilateral degenerative facet arthropathy also present at the cervical spine No acute fractures or dislocations. Impression: 1. No acute fracture or dislocation injury identified at the cervical spine. This document has been electronically signed by: Eliud Spears MD on 11/07/2024 02:25:08 Dictated By: Eliud Spears MD Signed By: <Electronically signed by Eliud Spears MD in OV> 11/07/24225 DD/ 4 TD/TT: 11/07/24224 Designer: [facility] External Provider IMG CT PROCEDURES Final Result * Urinalysis w/reflex microscopic (11/07/2024 2:08 AM EST) Color Urine Dark Yellow [facility] Appearance Urine Clear [facility] PH 6.0 5.0 - 9.0 [facility] Glucose Urine UA Negative Negative mg/dL [facility] Urine Blood Negative Negative [facility] Specific Lug[place] - Urine 1.020 1.005 - 1.025 [facility] Urine Protein Negative Neg-Trace mg/dL [facility] Urine Ketones Trace Negative mg/dL [facility] Nitrite Urine Negative Negative [facility] Leukocyte Esterase Urine Negative Negative [facility] 11/07/2024 2:08 AM EST 11/07/2024 2:12 AM EST Narrative [facility] - 11/07/2024 2:17 AM EST [id number], [employer] External Data Provider LAB URINE ORDERAB LES Final Result Performing Organization Address City/State/[facility] Co de Phone Number [facility] [address] [place] [phone] * CT Head w/o Contrast (11/07/2024 1:40 AM EST) Anatomical Region Laterality Modality Head, Neck Computed Tomogra phy 11/07/2024 1:40 AM EST Narrative 11/07/2024 1:41 AM EST ? [facility] ?[address] ?[place] [address] ? CT Scan Report ? Signed ? Patient: Godfrey Mcmanus,Adelso ?MR#: [id number] ?? [id number] ? : 1960 ?Acct:[id number] ? Age/Sex: 63 / M ?ADM Date: 11/07/24 ? Loc: HO.ED ? Attending Dr: ? Ordering Physician: Gilbert Gandara MD ?? Date of Service: 11/07/24 ?? Procedure(s): CT head/brain wo IV con ?? Accession Number(s): [id number] ? cc: Gilbert Gandara MD; Leta Soto MD ? Report Number: ?? [id number]: Total DLP = ??743.00 mGy-cm ? CLINICAL HISTORY: ams ? CT head without contrast ? Comparison: CT/ID/SR - CT HEAD/BRAIN WO IV CON - 05/26/24 19:53 EDT ? Findings: ?? No intracranial mass, midline shift, hydrocephalus, or acute hemorrhage. ?? There are atelectatic changes of the left maxillary sinus with mild ?? mucosal thickening at this site. Minimal mucosal thickening present at the ?? right maxillary sinus. The bilateral mastoid air cells appear clear. 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 ?? No acute skull fracture. ? Impression: ?? 1. No acute intracranial abnormality. No acute intracranial hemorrhage. ? This document has been electronically signed by: Eliud Spears MD on ?? 11/07/2024 01:40:42 ? Dictated By: ?Eliud Spears MD ? Signed By: ?<Electronically signed by Eliud Spears MD in OV> ? 11/07/24 0141 ? DD/ 0140 ? TD/TT: 11/07/24 0140 ? Designer: ? Procedure Note Hiral, Mehreen - 11/07/[address] [address] [address] Scan Report Signed Patient: Adelso Beebe#: [id number] : 2Acct:[id number] Age/Sex: 63 / MADM Date: 11/07/24 Loc: HO.ED Attending Dr: Ordering Physician: Gilbert Gandara MD Date of Service: 11/07/24 Procedure(s): CT head/brain wo IV con Accession Number(s): [id number] cc: Gilbert Gandara MD; Leta Soto MD Report Number: [id number]: Total DLP = 743.00 mGy-cm CLINICAL HISTORY: ams CT head without contrast Comparison: CT/ID/SR - CT HEAD/BRAIN WO IV CON - 05/26/24 19:53 EDT Findings: No intracranial mass, midline shift, hydrocephalus, or acute hemorrhage. There are atelectatic changes of the left maxillary sinus with mild mucosal thickening at this site. Minimal mucosal thickening present at the right maxillary sinus. The bilateral mastoid air cells appear clear. 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 No acute skull fracture. Impression: 1. No acute intracranial abnormality. No acute intracranial hemorrhage. This document has been electronically signed by: Eliud Spears MD on 11/07/2024 01:40:42 Dictated By: Eliud Spears MD Signed By: <Electronically signed by Eliud Spears MD in OV> 11/07/24 0141 DD/ 0140 TD/TT: 11/07/240 Designer: [facility] External Provider IMG CT PROCEDURES Final Result * XR Thoracic Spine 2 Views (11/03/2024 1:05 PM EST) Anatomical Region Laterality Modality Spine, T-spine Radiographic Susy ging 11/03/2024 1:05 PM EST Narrative 11/03/2024 1:07 PM EST ? [facility] ?[address] ?[place] [address] ?XRay Report ? Signed ? Patient: Godfrey Mcmanus,Adelso ?MR#: [id number] ?? [id number] ? : 1960 ?Acct:[id number] ? Age/Sex: 63 / M ?ADM Date: 02/21/25 ? Loc: HO.XRAY ? Attending Dr: Yajaira Antonio MD ? Ordering Physician: Yajaira Antonio MD ?? Date of Service: 10/31/24 ?? Procedure(s): XR thoracic spine 2V ?? Accession Number(s): [id number] ? cc: Leta Soto MD; Yajaira Antonio [...] DD/ 1305 ? TD/TT: 11/03/24 1305 ? Designer: ? Procedure Note Donjuana, Mehreen - 11/03/2024 [place] [address] XRay Report Signed Patient: Adelso BeebeMR#: [id number] : 1960cct:[id number] Age/Sex: 63 / MADM Date: 10/31/24 Loc: HO.XRAY Attending Dr: Yajaira Antonio MD Ordering Physician: Yajaira Antonio MD Date of Service: 10/31/24 Procedure(s): XR thoracic spine 2V Accession Number(s): [id number] cc: Leta Soto MD; Yajaira Antonio MD [...] 11/03/24 1307 DD/ 1305 TD/TT: 11/03/24 1305 Designer: [facility] External Provider IMG XR PROCEDURES Final Result * XR Lumbar Spine 2-3 Views (11/03/2024 12:26 PM EST) Anatomical Region Laterality Modality Spine, L-spine Radiographic Susy ging 11/03/2024 12:2 6 PM EST Narrative 11/03/2024 12:28 PM EST ? [facility] ?[address] ?[place] [address] ?XRay Report ? Signed ? Patient: Godfrey Mcmanus,Adelso ?MR#: [id number] ?? [id number] ? : 1960 ?Acct:[id number] ? Age/Sex: 63 / M ?ADM Date: 10/31/24 ? Loc: HO.XRAY ? Attending Dr: Yajaira Antonio MD ? Ordering Physician: Yajaira Antonio MD ?? Date of Service: 10/31/24 ?? Procedure(s): XR lumbar spine 2-3V ?? Accession Number(s): [id number] ? cc: Leta Soto MD; Yajaira Antonio [...] Esdras Lopez MD in OV> ? 11/03/24 1227 ? DD/ 1226 ? TD/TT: 11/03/24 1226 ? Designer: ? Procedure Note Hiral, Mehreen - 11/03/[address] [address] XRay Report Signed Patient: Adelso BeebeMR#: [id number] : 2Acct:[id number] Age/Sex: 63 / MADM Date: 10/31/24 Loc: HO.XRAY Attending Dr: Yajaira Antonio MD Ordering Physician: Yajaira Antonio MD Date of Service: 10/31/24 Procedure(s): XR lumbar spine 2-3V Accession Number(s): [id number] cc: Leta Soto MD; Yajaira Antonio MD [...] 11/03/24 1227 DD/ 1226 TD/TT: 11/03/24 1226 Designer: [facility] External Provider IMG XR PROCEDURES Final Result * High Sensitivity Troponin I (10/28/2024 7:29 PM EST) Only the most recent of2 resultswithin the time period is included. TROPONIN I HIGH SENSITIVITY 5.2 <3.5 - 35.0 ng/L [facility] Comment:The Clifford high sens itivity Troponin-I results should beused in conjunction with other diagnostic information suchas ECG, clinical observations and information, and patientsymptoms to aid in the diagnosis of [place]. 10/28/2024 7:29 PM EST 10/28/2024 7:32 PM EST Generic External Data Provider LAB BLOOD ORDERAB LES Final Result [facility] [address] [place] [phone] * XR Chest 2 Views (10/28/2024 6:02 PM EST) Anatomical Region Laterality Modality Chest Radiographic Susy ging 10/28/2024 6:02 PM EST Narrative 10/28/2024 6:05 PM EST ? [facility] ?[address] ?[place] [address] ?XRay Report ? Signed ? Patient: Godfrey Mcmanus,Adelso ?MR#: [id number] ?? [id number] ? : 1960 ?Acct:[id number] ? Age/Sex: 63 / M ?ADM Date: 10/28/24 ? Loc: HO.ED ? Attending Dr: ? Ordering Physician: [place] Morrison CNP ?? Date of Service: 10/28/24 ?? Procedure(s): XR chest 2V ?? Accession Number(s): [id number] ? cc: [place] Morrison CNP; Leta Soto [...] DD/ 1802 ? TD/TT: 10/28/24 1802 ? Designer: ? Procedure Note Hiral, Image - 10/28/[address] [address] XRay Report Signed Patient: Adelso BeebeMR#: [id number] : 2Acct:[id number] Age/Sex: 63 / MADM Date: 10/28/24 Loc: HO.ED Attending Dr: Ordering Physician: Venice Morrison CNP Date of Service: 10/28/24 Procedure(s): XR chest 2V Accession Number(s): [id number] cc: Venice Morrison CNP; Leta Soto MD [...] in OV> 10/28/24 180 DD/ 180 TD/TT: 10/28/24 180 Designer: us [facility] External Provider IMG XR PROCEDURES Edited Result - Final * IR TIPS insertion (10/15/2024 1:30 PM EST) Anatomical Region Laterality Modality X-Ray Angiograph y 10/15/2024 1:30 PM EST Narrative 10/15/2024 4:32 PM EST ? [facility] ?[address] ?[place] [address] ?Interventional Radiology Rpt ? Signed ? Patient: Adelso Beebe ?MR#: [id number] ?? [id number] ? : 1960 ?Acct:[id number] ? Age/Sex: 63 / M ?ADM Date: 10/08/24 ? Loc: HO.ICU ?252-1 ? Attending Dr: Zana Spear MD ? Ordering Physician: Yajaira Antonio MD ?? Date of Service: 10/15/24 ?? Procedure(s): IR TIPS insertion ?? Accession Number(s): [id number] ? cc: Leta Soto MD; Yajaira Antonio [...] was advanced to the IVC. A 10 Tong[place] sheath was placed. ?? A hockey-stick catheter was used to catheterize the right hepatic vein. ?? This was confirmed with venography. The sheath was then advanced into ?? the right hepatic vein. A Quisic TIPS set was then used to gain [...] obtained. An 8 mm x 8 cm [place] [employer] TIPS was ?? then deployed from the hepatic vein to the portal vein. The TIPS stent ?? was postdilated with an 8 mm ENAMEL APPLIER balloon. Portal venogram demonstrates ?? wide patency [...] DD/ 1330 ? TD/TT: 10/15/24 1625 ? Designer: ? Procedure Note Donotuseinterpreter, Image - 10/16/2024 [place] [address] Interventional Radiology Rpt Signed Patient: Adelso BeebeMR#: [id number] : 2Acct:[id number] Age/Sex: 63 / MADM Date: 10/08/24 Loc: .[facility] 252-[address]: Zana Spear MD Ordering Physician: Yajaira Antonio MD Date of Service: 10/15/24 Procedure(s): IR TIPS insertion Accession Number(s): [id number] cc: Leta Soto MD; Yajaira Antonio MD [...] was advanced to the IVC. A 10 Tongan sheath was placed. A hockey-stick catheter was used to catheterize the right hepatic vein. This was confirmed with venography. The sheath was then advanced into the right hepatic vein. A Quisic TIPS set was then used to gain [...] obtained. An 8 mm x 8 cm [place] [employer] TIPS was then deployed from the hepatic vein to the portal vein. The TIPS stent was postdilated with an 8 mm ENAMEL APPLIER balloon. Portal venogram demonstrates wide patency of [...] Abraham Ness MD 10/15/2024 04:30 PM EST Dictated By: Abraham Ness MD Signed By: <Electronically signed by Abraham Ness MD in OV> 10/15/24 1630 DD/ 1330 TD/TT: 10/15/24 1625 Designer: [facility] External Provider IMG IR PROCEDURES Edited Result - Final * XR Chest 1 View (10/08/2024 9:42 PM EST) Anatomical Region Laterality Modality Chest Radiographic Susy ging 10/08/2024 9:42 PM EST Narrative 10/08/2024 9:43 PM EST ? [facility] ?[address] ?[place] [address] ?XRay Report ? Signed ? Patient: Godfrey Mcmanus,Adelso ?MR#: [id number] ?? [id number] ? : 1960 ?Acct:[id number] ? Age/Sex: 63 / M ?ADM Date: 01/29/25 ? Loc: HO.ED ? Attending Dr: ? Ordering Physician: Bhavana Christensen ?? Date of Service: 10/08/24 ?? Procedure(s): XR chest 1V ?? Accession Number(s): [id number] ? cc: Bhavana Christensen; Leta Soto MD [...] signed by Raghu Quezada MD in OV> ?10/08/24 2143 ? DD/ 41 ? TD/TT: 10/08/242141 ? Designer: ? Procedure Note Donaaronter, Image - 10/08/[address] [address] XRay Report Signed Patient: Adelso BeebeMR#: [id number] : 1960cct:[id number] Age/Sex: 63 / MADM Date: 10/08/24 Loc: HO.ED Attending Dr: Ordering Physician: Bhavana Christensen Date of Service: 10/08/24 Procedure(s): XR chest 1V Accession Number(s): [id number] cc: Bhavana Christensen; Leta Soto MD CLINICAL [...] in OV> 10/08/242142 DD/ 41 TD/TT: 10/08/242141 Designer: us [facility] External Provider IMG XR PROCEDURES Edited Result - Final * Slide Review (09/02/2024 10:55 AM EST) Slide Review VERIFIED [facility] 09/02/2024 10:5 5 AM EST 09/02/2024 10:55 AM EST Generic External Data Provider LAB BLOOD ORDERAB LES Final Result [facility] [address] [place] [phone] * (ABNORMAL) CBC auto differential (09/02/2024 10:55 AM EST) White Blood Count 1.8(L) 4.8 - 10.8 X10*3/uL [facility] Red Blood Count 4.15(L) 4.60 - 5.80 X10*6/uL [facility] Hemoglobin 11.5(L) 14.0 - 18.0 g/dl [facility] Hematocrit 36.4(L) 42.0 - 52.0 % [facility] Mean Corpuscular Volume 87.7 80.0 - 98.0 fL [facility] Mean Corpuscular Hemoglobin 27.7 27.0 - 33.0 pg [facility] Mean Corpuscular HGB Conc 31.6 31.0 - 36.0 g/dl [facility] Red Cell Distribution Width 14.0 11.0 - 16.0 % [facility] Platelet Count 21(L) 160 - 400 X10*3/uL [facility] Mean Platelet Volume TNP 9.4 - 12.4 fL [facility] Neutrophils Percent Auto 68.0 45 - 73 % [facility] Imm Gran Pct Auto 0.0 0.0 - 0.4 % [facility] Lymphocytes Percent Auto 23.9 20 - 40 % [facility] Monocytes Percent Auto 6.0 2 - 11 % [facility] Eosinophils Percent Auto 1.6 0 - 4 % [facility] Basophils Percent Auto 0.5 0 - 2 % [facility] NRBC Pct Auto 0.0 0.0 - 0.2 /100WBC [facility] Neutrophils Absolute Auto 1.3(L) 2.0 - 8.3 x10*3/uL [facility] Imm Gran Abs Auto 0.00 0.00 - 0.03 X10*3/uL [facility] Lymphocytes Absolute Auto 0.4(L) 1.2 - 4.9 X10*3/uL [facility] Monocytes Absolute Auto 0.1 0.1 - 1.2 X10*3/uL [facility] Eosinophils Absolute Auto 0.0 0.0 - 0.4 X10*3/uL [facility] Basophils Absolute Auto 0.0 0.0 - 0.2 X10*3/uL [facility] NRBC Abs Auto 0.000 0.0 - 0.012 X10*3/uL [facility] 09/02/2024 10:5 5 AM EST 09/02/2024 10:55 AM EST us Generic External Data Provider LAB BLOOD ORDERAB LES Edited Result - Final [facility] [address] [place] [phone] * (ABNORMAL) Comprehensive Metabolic Panel (09/02/2024 10:55 AM EST) Sodium 144 135 - 145 mmol/L [facility] Potassium 4.6 3.3 - 5.1 mmol/L [facility] Chloride 112(H) 96 - 108 mmol/L [facility] Carbon Dioxide 26 22 - 29 mmol/L [facility] Anion Gap 11(L) 12 - 20 [facility] Urea Nitrogen (BUN) 12 9 - 16 mg/dL [facility] Creatinine, Serum 0.88 0.5 - 1.4 mg/dL [facility] Estimated Glomerular Filt Rate >60 [facility] Comment:Chronic Kidney Disea se: Estimated GFR < 60 mL/min/1.55h4Vrygla Kidney Disease: Estimated GFR < 15 mL/min/1.73m2 Glucose 102 60 - 115 mg/dL [facility] Calcium 9.0 8.4 - 10.2 mg/dL [facility] Bilirubin, Total 1.1(H) 0.0 - 1.0 mg/dL [facility] Aspartate Amino Transferase 41(H) 5 - 37 U/L [facility] Alanine Aminotransferase 27 0 - 40 U/L [facility] Total Protein 7.3 6.5 - 8.0 g/dL [facility] Albumin Level 3.6 3.5 - 5.0 g/dL [facility] Alkaline Phosphatase 117 39 - 117 U/L [facility] 09/02/2024 10:5 5 AM EST 09/02/2024 10:55 AM EST us Generic External Data Provider LAB BLOOD ORDERAB LES Final Result Performing Organization Address [facility] Co de Phone Number [facility] [address] [place] [phone] * Pheresis Platelets (09/02/2024 10:50 AM EST) Pheresis Platelets [id number] OP PHPLT TRANSFUSED 09/04/24 0934 [id number] OP PHPLT TRANSFUSED 09/04/24 0854 [facility] 09/02/2024 10:5 0 AM EST 09/02/2024 11:08 AM EST us Generic External Data Provider LAB BLOOD BANK TE ST ORDERABLES Final Result Performing Organization Address City/[facility]/ZIP Co de Phone Number [facility] [address] [place] [phone] * Type and screen (09/02/2024 10:50 AM EST) Blood Type ON [facility] Antibody Screen NEGATIVE [facility] 09/02/2024 10:5 0 AM EST 09/02/2024 11:08 AM EST Narrative [facility] - 09/05/2024 6:50 AM EST NURSING:Call Blood Bank (ext. 2018) to band patient on admission.Type and Screen in effect until 2300 on 09/05/2024.Witnessed by MANCIT Results at Issue Units as of 09/04/24 0856 ...Test View Group: Most Recent Platelet CountNo results available. Results at Issue Units as of 09/04/24 0935 ...Test View Group: Most Recent Platelet CountNo results available. Plt <75,000Yes us Generic External Data Provider LAB BLOOD BANK TE ST ORDERABLES Final Result [facility] [address] [place] [phone] [phone] * Lipid Panel, Standard (04/06/2023 10:00 AM EDT) Pathologist Maddi Triglycerides 94 mg/dL [facility] Comment:Desirable Triglyceri de: less than 150 mg/dLBorderline High Triglyceride 150-199 mg/dLHigh Triglyceride: 200-499 mg/dLVery High Triglyceride: greater than or equal to 5OO mg/dL Cholesterol 79 mg/dL [facility] Comment:Desirable Cholestero l: less than 200 mg/dLBorderline High Cholesterol: 200-239 mg/dLHigh Cholesterol: greater than 239 mg/dL LDL Cholesterol Calculated 36 mg/dl [facility] Comment:Desirable LDL: less than 100 mg/dLNear Optimal/Above Optimal LDL: 110- 129 mg/dLBorderline High LDL: 130-159 mg/dLHigh LDL: 160-189 mg/dLVery High LDL: greater than or equal to 190 mg/dL HDL Cholesterol 25 mg/dL [facility] Comment:Desirable HDL: great er than 40 mg/dL Note: This HDL assay may give artificially low results in patients with liver disease. Blood Venous blood specimen / Unknown 04/06/2023 10:00 AM EDT 04/06/2023 11:20 AM EDT [facility] LAB BLOOD ORDERABLES Final Resul t [facility] [address] [place] [address] [phone] from Last 3 Months or Most Recently Relevant to Health Maintenance [place] [address] [place] [address] C3 N FULL Care Teams Meat Stocker Relationship Specialty Start Date End Date Leta Soto MD [address] [place] [address] [phone] PCP - General Internal Medicine 04/11/23 Yajaira Antonio [address] [place] [address] [address] [place], [place] [phone] Gastroenterology 09/04/24
--- OUTSIDE RECORDS SUMMARY | 2024-11-12 19:30 | XMS_ITS | Encounter Summary ---
Author Organization [employer] Address [address] [facility] 7 [place] [address] Care Team Providers Care Anesthesia Attending Name Role Phone Leta Soto MD Primary Care Pro vider PacoYajaira Unavailable Reason for Visit * Reason Comments Med Refill Encounter Details Date Type Department Care Team (Late st Contact Info) Description 10/28/2024 Refill [facility] [address] [place] [address] Leta Soto MD [address] [place], [place] [phone] Social History Tobacco Use Types Packs/Day Years [...] Description 11/24/2024 9:00 AM EDT Office Visit [facility] [address] [place] [address] [phone] Ysabel Omer MD [address] [place] [phone] documented as of this encounter Goals Goal [...] documented as of this encounter Care Teams Anesthesia Attending Relationship Specialty Start Date End Date Leta Soto MD [address] [place] [address] PCP - General Internal Medicine 04/11/23 Yajaira Antonio [address] [place] [address] Drive 3rd [place] [address] Gastroenterology 09/04/24 documented as of this encounter
--- OUTSIDE RECORDS SUMMARY | 2024-11-12 19:30 | XMS_ITS | Encounter Summary ---
Author Organization [employer] Address [address] [facility] 7 [place] [address] Care Team Providers Care Band Saw Operator Name Role Phone Leta Soto MD Primary Care Pro vider Yajaira Antonio Unavailable Reason for Visit * Reason Onset Date Comments No Show 11/03/2024 Encounter Details Date Type Department Care Team (Late st Contact Info) Description 11/03/2024 Telephone [facility] [address] [place] [address] Leta Soto MD [address] [place] [address] No Show Social History Tobacco Use Types Packs/Day Years [...] the past 12 months, has t he [email or web address], gas, oil or water [email or web address] threatened to shut off services in your [...] encounter Miscellaneous Notes * Telephone Encounter - Regla Mckeon - 11/03/2024 10:06 AM EST Patient no show to HDF appointment on 11/03/24. documented in this encounter Plan of Treatment Upcoming Encounters Date Type Department Care Team (Late st Contact Info) Description 11/24/2024 9:00 AM EDT Office Visit [facility] [address] [place] [address] Ysabel Omer MD [address] [place] [address] documented as of this encounter Goals Goal [...] documented as of this encounter Care Teams Band Saw Operator Relationship Specialty Start Date End Date Leta Soto MD [address] [place] [address] PCP - General Internal Medicine 04/11/23 Yajaira Antonio [address] [place] [address] 3rd [place] [address] Gastroenterology 09/04/24 documented as of this encounter
--- OUTSIDE RECORDS SUMMARY | 2024-11-12 19:30 | XMS_ITS | Encounter Summary ---
Author Organization [employer] Address [address] [facility] 7 [place] [address] Care Team Providers Care Computer Forensic Specialist Name Role Phone Leta Soto MD Primary Care Pro vider Yajaira Antonio Unavailable Reason for Visit * Reason Comments Transition Of Care (Tcm) HDF- Scheduled Encounter Details Date Type Department Care Team (Late st Contact Info) Description 10/22/2024 Patient Outreach [facility] [address] [place] [address] Leta Soto MD [address] [place] [address] Transition Of Care (Tcm) (HDF- Scheduled) Social [...] with others, in a hotel, in a long term, living outside on the street, on a [...] 10/22/24 1158 [facility] Hospital Admission Date of Admission/Visit 10/08/24 Date of Discharge 10/16/24 Facility [facility] Diagnosis Hep c virus infection Disposition Discharged [...] Wednesdays, and Walk-In Urgent Care Located in [facility] of [facility]. Patient provided with after-hours line for [facility], , which offer night time triage service and option to transfer to weed control inspector provider if needed. CC will request Discharge summary to be scanned into chart. documented in this encounter Plan of Treatment Upcoming Encounters Date Type Department Care Team (Late st Contact Info) Description 11/24/2024 9:00 AM EDT Office Visit [facility] [address] [place], [place] [phone] Ysabel Omer MD [address] [place], [place] [phone] documented as of this encounter Goals Goal [...] documented as of this encounter Care Teams Computer Forensic Specialist Relationship Specialty Start Date End Date Leta Soto MD [address] [place], [place] [phone] PCP - General Internal Medicine 04/11/23 Yajaira Antonio [address] [facility] [address] 3rd Floor [place], [place] [phone] Gastroenterology 09/04/24 documented as of this encounter
--- OUTSIDE RECORDS SUMMARY | 2024-11-12 19:30 | XMS_ITS | Encounter Summary ---
Author Organization [employer] Address [address] [facility] 7t [place] [address] Care Team Providers Care Hospital Secretary Name Role Phone Leta Soto MD Primary Care Pro vider Yajaira Antonio Unavailable Encounter Details Date Type Department Care Team (Late st Contact Info) Description 10/23/2024 Refill [facility] [address] [place] [address] Kelly Dick, PharmD [address] [place] [address] Social History Tobacco Use Types Packs/Day Years [...] with others, in a hotel, in a prison, living outside on the street, on a [...] Description 11/24/2024 9:00 AM EDT Office Visit [facility] [address] [place] [address] Ysabel Omer MD [address] [place] [address] documented as of this encounter Goals Goal [...] documented as of this encounter Care Teams Hospital Secretary Relationship Specialty Start Date End Date Leta Soto MD [address] [place] [phone] PCP - General Internal Medicine 04/11/[address]rd [place] [address] Gastroenterology 09/04/24 documented as of this encounter
--- OUTSIDE RECORDS SUMMARY | 2024-11-12 19:30 | XMS_ITS | Encounter Summary ---
Author Organization [employer] Address 75 [facility] 7t [place] [address] Care Team Providers Care Orthotic Fitter Name Role Phone Leta Soto MD Primary Care Pro vider Yajaira Antonio Unavailable Encounter Details Date Type Department Care Team (Late st Contact Info) Description 11/07/2024 Orders Only [facility] External Provider, [facility] Social History Tobacco Use Types Packs/Day [...] with others, in a hotel, in a halfway, living outside on the street, on a [...] Description 11/24/2024 9:00 AM EDT Office Visit [facility] MEDICINE [address] [place] [address] Ysabel Omer MD [address] [place] [address] documented as of this encounter Goals Goal [...] CONTRAST Routine 11/07/2024 1 :40 AM EST documented in this encounter Results * US Abdomen Limited (11/07/2024 9:25 AM EST) Anatomical Region Laterality Modality Abdomen Ultrasound 11/07/2024 9:25 AM EST Narrative 11/07/2024 9:55 AM EST ? [facility] ?[address] ?[place] [address] ? Ultrasound Report ? Signed ? Patient: Adelso Beebe ?MR#: [id number] ?? [id number] ? : 1960 ?Acct:[id number] ? Age/Sex: 63 / M ?ADM Date: 11/07/24 ? Loc: [facility].[place] ?MEDSURG-3 ? Attending Dr: Ivis HAMILTON ? Ordering Physician: Lc Cohn MD ?? Date of Service: 11/07/24 ?? Procedure(s): US abdomen limited ?? Accession Number(s): [id number] ? cc: Leta Soto MD; Lc Cohn [...] EST RP ? Dictated By: ?Cassidy,Lopez S ? Signed By: ?<Electronically signed by Lopez S MD Cassidy in OV> ?11/07/24 0952 ? DD/ 0925 ? TD/TT: 11/07/24 0945 ? Personal Lines Sales Rep: MSM ? Procedure Note Donotuseinterpreter, Image - 11/07/[address] [address] Ultrasound Report Signed Patient: Adelso BeebeMR#: [id number] : 1960cct:[id number] Age/Sex: 63 / MADM Date: 11/07/24 [facility] [address]: Ivis HAMILTON Ordering Physician: Lc Cohn MD Date of Service: 11/07/24 Procedure(s): US abdomen limited Accession Number(s): [id number] cc: Leta Soto MD; Lc Cohn MD [...] Lopez Benjamin MD 11/07/2024 09:52 AM EST RP Dictated By: Lopez Benjamin MD Signed By: <Electronically signed by Lopez Benjamin MD in OV> 11/07/24 0952 DD/ 4 TD/TT: 11/07/2445 Personal Lines Sales Rep: KAZ us [facility] External Provider IMG US PROCEDURES Final Result * CT Abdomen Pelvis w/ Contrast (11/07/2024 3:31 AM EST) Anatomical Region Laterality Modality Body, Pelvis, Abdomen Computed T omography 11/07/2024 3:31 AM EST Narrative 11/07/2024 3:33 AM EST ? [facility] ?[address] ?[place] [address] ? CT Scan Report ? Signed ? Patient: Adelso Beebe ?MR#: [id number] ?? [id number] ? : 1960 ?Acct:[id number] ? Age/Sex: 63 / M ?ADM Date: 11/07/24 ? Loc: HO.ED ? Attending Dr: ? Ordering Physician: Gilbert Gandara MD ?? Date of Service: 11/07/24 ?? Procedure(s): CT abdomen pelvis w IV con ?? Accession Number(s): [id number] ? cc: Gilbert Gandara MD; Leta Soto MD ? Report Number: ?? [id number]: Total DLP = 1166.00 mGy-cm ? CLINICAL [...] 0332 ? DD/ 0331 ? TD/TT: 11/07/24 0331 ? Personal Lines Sales Rep: ? Procedure Note Hiral, Mehreen - 11/07/[address] [address] [address] Scan Report Signed Patient: Adelso Beebe#: [id number] : 2Acct:[id number] Age/Sex: 63 / MADM Date: 11/07/24 Loc: HO.ED Attending Dr: Ordering Physician: Gilbert Gandara MD Date of Service: 11/07/24 Procedure(s): CT abdomen pelvis w IV con Accession Number(s): [id number] cc: Gilbert Gandara MD; Leta Soto MD Report Number: [id number]: Total DLP = 1166.00 mGy-cm CLINICAL HISTORY: [...] signed by Eliud Spears MD in OV> 11/07/24331 DD/ 0 TD/TT: 02/28/25 0331 Personal Lines Sales Rep: us [facility] External Provider IMG CT PROCEDURES Final Result * CT Chest w/ Contrast (11/07/2024 3:21 AM EST) Anatomical Region Laterality Modality Body, Chest Computed Tomogra phy 11/07/2024 3:21 AM EST Narrative 11/07/2024 3:23 AM EST ? [facility] ?[address] ?[place] [address] ? CT Scan Report ? Signed ? Patient: Adelso Beebe ?MR#: [id number] ?? [id number] ? : 1960 ?Acct:[id number] ? Age/Sex: 63 / M ?ADM Date: 11/07/24 ? Loc: HO.ED ? Attending Dr: ? Ordering Physician: Gilbert Gandara MD ?? Date of Service: 11/07/24 ?? Procedure(s): CT chest w IV con ?? Accession Number(s): [id number] ? cc: Gilbert Gandara MD; Leta Soto MD ? Report Number: ?? [id number]: Total DLP = ??483.00 mGy-cm ? CLINICAL HISTORY: fall ??please comment on T-spine for provider. ? CT chest with contrast ? Comparison: CR - XR CHEST - 11/06/24 23:44 EST ? Findings: ?? [...] DD/ 0321 ? TD/TT: 11/07/24 0321 ? Personal Lines Sales Rep: ? Procedure Note Hiral, Image - 11/07/[address] [address] [address] Scan Report Signed Patient: Adelso BeebeMR#: [id number] : 2Acct:[id number] Age/Sex: 63 / MADM Date: 11/07/24 Loc: HO.ED Attending Dr: Ordering Physician: Gilbert Gandara MD Date of Service: 11/07/24 Procedure(s): CT chest w IV con Accession Number(s): [id number] cc: Gilbert Gandara MD; Leta Soto MD Report Number: [id number]: Total DLP = 483.00 mGy-cm CLINICAL HISTORY: [...] signed by Eliud Spears MD in OV> 11/07/24322 DD/ 032 TD/TT: 11/07/24 032 Personal Lines Sales Rep: [facility] External Provider IMG CT PROCEDURES Final Result * CT Cervical Spine w/o Contrast (11/07/2024 2:25 AM EST) Anatomical Region Laterality Modality Spine, C-spine Computed Tomogra phy 11/07/2024 2:25 AM EST Narrative 11/07/2024 2:26 AM EST ? [facility] ?[address] ?[place] [address] ? CT Scan Report ? Signed ? Patient: Godfrey Mcmanus,Adelso ?MR#: [id number] ?? [id number] ? : 1960 ?Acct:[id number] ? Age/Sex: 63 / M ?ADM Date: 11/07/24 ? Loc: HO.ED ? Attending Dr: ? Ordering Physician: Gilbert Gandara MD ?? Date of Service: 11/07/24 ?? Procedure(s): CT cervical spine wo IV con ?? Accession Number(s): [id number] ? cc: Gilbert Gandara MD; Leta Soto MD ? Report Number: ?? [id number]: Total DLP = ??344.00 mGy-cm ? CLINICAL HISTORY: fall and ams ? CT cervical spine without contrast ? Comparison: None ? Findings: ?? There is grade 1 anterolisthesis of C3 on C4, of C6 on C7, and also of C7 ?? on T1. Irregularity and sclerosis of the vertebral body endplates present ?? at C6-C7. Silu-pi-uvutkizk degenerative endplate changes are present at ?? [...] by Eliud Spears MD in OV> ? 11/07/24225 ? DD/ 4 ? TD/TT: 11/07/24224 ? Personal Lines Sales Rep: ? Procedure Note Hiral, Mehreen - 11/07/[address] [address] [address] Scan Report Signed Patient: Adelso BeebeMR#: [id number] : 2Acct:[id number] Age/Sex: 63 / MADM Date: 11/07/24 Loc: HO.ED Attending Dr: Ordering Physician: Gilbert Gandara MD Date of Service: 11/07/24 Procedure(s): CT cervical spine wo IV con Accession Number(s): [id number] cc: Gilbert Gandara MD; Leta Soto MD Report Number: [id number]: Total DLP = 344.00 mGy-cm CLINICAL HISTORY: fall and ams CT cervical spine without contrast Comparison: None Findings: There is grade 1 anterolisthesis of C3 on C4, of C6 on C7, and also of C7 on T1. Irregularity and sclerosis of the vertebral body endplates present at C6-C7. Ibbv-sy-dahtxclp degenerative endplate changes are present at the [...] in OV> 11/07/24225 DD/ 4 TD/TT: 11/07/24224 Personal Lines Sales Rep: [facility] External Provider IMG CT PROCEDURES Final Result * Urinalysis w/reflex microscopic (11/07/2024 2:08 AM EST) Color Urine Dark Yellow [facility] Appearance Urine Clear [facility] PH 6.0 5.0 - 9.0 [facility] Glucose Urine UA Negative Negative mg/dL [facility] Urine Blood Negative Negative [facility] Specific [place] - Urine 1.020 1.005 - 1.025 [facility] Urine Protein Negative Neg-Trace mg/dL [facility] Urine Ketones Trace Negative mg/dL [facility] Nitrite Urine Negative Negative [facility] Leukocyte Esterase Urine Negative Negative [facility] 11/07/2024 2:08 AM EST 11/07/2024 2:12 AM EST Narrative [facility] - 11/07/2024 2:17 AM EST [id number], [employer] Generic External Data Provider LAB URINE ORDERAB LES Final Result [facility] [address] [place] [address] [phone] * CT Head w/o Contrast (11/07/2024 1:40 AM EST) Anatomical Region Laterality Modality Head, Neck Computed Tomogra phy 11/07/2024 1:40 AM EST Narrative 11/07/2024 1:41 AM EST ? [facility] ?[address] ?[place] [address] ? CT Scan Report ? Signed ? Patient: Adelso Beebe ?MR#: [id number] ?? [id number] ? : 1960 ?Acct:[id number] ? Age/Sex: 63 / M ?ADM Date: 11/07/24 ? Loc: HO.ED ? Attending Dr: ? Ordering Physician: Gilbert Gandara MD ?? Date of Service: 11/07/24 ?? Procedure(s): CT head/brain wo IV con ?? Accession Number(s): [id number] ? cc: Gilbert Gandara MD; Leta Soto MD ? Report Number: ?? [id number]: Total DLP = ??743.00 mGy-cm ? CLINICAL HISTORY: ams ? CT head without contrast ? Comparison: CT/NC/SR - CT HEAD/BRAIN WO IV CON - [...] Eliud Spears MD in OV> ? 11/07/24 014 ? DD/ 0140 ? TD/TT: 11/07/24 0140 ? Personal Lines Sales Rep: ? Procedure Note Donotuseinterpreter, Image - 11/07/[address] [place] [address] [address] Scan Report Signed Patient: Adelso BeebeMR#: [id number] : 2Acct:[id number] Age/Sex: 63 / MADM Date: 11/07/24 Loc: HO.ED Attending Dr: Ordering Physician: Gilbert Gandara MD Date of Service: 11/07/24 Procedure(s): CT head/brain wo IV con Accession Number(s): [id number] cc: Gilbert Gandara MD; Leta Soto MD Report Number: [id number]: Total DLP = 743.00 mGy-cm CLINICAL HISTORY: ams CT head without contrast Comparison: CT/NC/SR - CT HEAD/BRAIN WO IV CON - [...] by Eliud Spears MD in OV> 11/07/24 014 DD/ 014 TD/TT: 11/07/24139 Personal Lines Sales Rep: [facility] External Provider IMG CT PROCEDURES Final Result documented in this encounter Visit Diagnoses Not on filedocumented in this encounter Additional Health Concerns Assessment Noted Time PHQ-9 Depression Total Score: 18 023 11:23 AM EDT documented as of this encounter Care Teams Orthotic Fitter Relationship Specialty Start Date End Date Leta Soto MD [address] [place] [address] PCP - General Internal Medicine 04/11/[address]rd Floor [place] [address] Gastroenterology 09/04/24 documented as of this encounter
--- OUTSIDE RECORDS SUMMARY | 2024-11-12 19:30 | XMS_ITS | Encounter Summary ---
Author Organization [email or web address] Address 75 [facility] 7t [place] [address] Care Team Providers Care Help Desk Support Specialist Name Role Phone Leta Soto MD Primary Care Pro vider Yajaira Antonio Unavailable Reason for Visit * Reason Onset Date Comments FOREIGN AGENT Services 10/22/2024 The patient requ ested FOREIGN AGENT services. I called to ask what ADLs he needs assistance with, and he stated that he is unable to talk at this time, and asked for me to call back at about 10:30 today. [facility] FOREIGN AGENT Services 10/22/2024 I called the patient regarding his request for FOREIGN AGENT services. I asked what ADLs he needs assistance with, and he asked me to speak with Jonathan. Jonathan stated that he needs assistance with bathing, getting dressed, medications, housekeeping, cooking, and going to appointments. She stated that if he is approved, she will be his FOREIGN AGENT. I informed her that once he is referred, he will be receiving a call from Yong, to set up an evaluation. She requested for Yong to call her, because sometimes the pa Encounter Details Date Type Department Care Team (Late st Contact Info) Description 10/22/2024 Telephone [facility] MEDICINE [address] [place] [address] Leta Soto MD [address] [place] [address] FOREIGN AGENT Services (The patient requested FOREIGN AGENT services. I called to ask what ADLs he needs assistance with, and he stated that he is unable to talk at this time, and asked for me to call back at about 10:30 today.); [facility]ong FOREIGN AGENT Services (I called the patient regarding his request for FOREIGN AGENT services. I asked what ADLs he needs assistance with, and he asked me to speak with Jonathan. Jonathan stated that he needs assistance with bathing, getting dressed, medications, housekeeping, cooking, and going to appointments. She stated that if he is approved, she will be his FOREIGN AGENT. I informed her that once he is [...] with others, in a hotel, in a long-term, living outside on the street, on a [...] called the patient regarding his request for FOREIGN AGENT services. I asked what ADLs he needs assistance with, and he asked me to speak with Ferminbeny. Jonathan stated that he needs assistance with bathing, getting dressed, medications, housekeeping, cooking, and going to appointments. She stated that if heis approved, she will be his FOREIGN AGENT. I informed her that once he is referred, he will be receiving a call from [facility], to set up an evaluation. She requested for [facility] to call her, because sometimes the patient does not know how to respond to questions. I informed her that due to confidentiality, they would need an authorization from him, in order for them to speak with her. She verbalized understanding. * Telephone Encounter - Mariia Donahue [place] - 10/22/2024 10:06 AM EST The patient requested FOREIGN AGENT services. I called to ask what ADLs he needs assistance with, and he stated that he is unable to talk at this time, and asked for me to call back at about 10:30 today. documented in this encounter Plan of Treatment Upcoming Encounters Date Type Department Care Team (Late st Contact Info) Description 11/24/2024 9:00 AM EDT Office Visit [facility] MEDICINE [address] [place] [address] Ysabel Omer MD [address] [place] [address] documented as of this encounter Goals Goal [...] documented as of this encounter Care Teams Help Desk Support Specialist Relationship Specialty Start Date End Date Leta Soto MD [address] [place] [address] PCP - General Internal Medicine 04/11/23 Yajaira Antonio [address] [place] [address] 3rd [place] [address] Gastroenterology 09/04/24 documented as of this encounter
--- OUTSIDE RECORDS SUMMARY | 2024-11-12 19:30 | XMS_ITS | Encounter Summary ---
Author Organization [employer] Address 75 [facility] 7t [place] [address] Care Team Providers Care Ruling Machine Set Up Operator Name Role Phone Leta Soto MD Primary Care Pro vider Yajaira Antonio Unavailable Encounter Details Date Type Department Care Team (Late st Contact Info) Description 12/17/2023 Orders Only [facility] [address] [place] [address] Tatyana Mosquera FNP [address] [place] [address] Social History Tobacco Use Types Packs/Day Years [...] Description 11/24/2024 9:00 AM EDT Office Visit [facility] MEDICINE [address] [place] [address] Ysabel Omer MD [address] [place] [address] documented as of this encounter Goals Goal [...] documented as of this encounter Care Teams Ruling Machine Set Up Operator Relationship Specialty Start Date End Date Leta Soto MD [address] [place] [address] PCP - General Internal Medicine 04/11/23 Yajaira Antonio [address] 3rd [place] [address] Gastroenterology 09/04/24 documented as of this encounter
--- OUTSIDE RECORDS SUMMARY | 2024-11-12 19:31 | XMS_ITS | Encounter Summary ---
Author Organization [employer] Address 75 [facility] 7t [place] [address] Care Team Providers Care Netsuite Consultant Name Role Phone Leta Soto MD Primary Care Pro vider Yajaira Antonio Unavailable Encounter Details Date Type Department Care Team (Late st Contact Info) Description 10/22/2024 Telephone [facility] MEDICINE [address] [place] [address] Kelly iDck, PharmD [address] [place] [address] Social History Tobacco Use Types Packs/Day Years [...] granddaughter to schedule. Please contact Edgardo at [phone]. Thank you documented in this encounter Plan of Treatment Upcoming Encounters Date Type Department Care Team (Late st Contact Info) Description 11/24/2024 9:00 AM EDT Office Visit [facility] MEDICINE [address] [place] [address] Ysabel Omer MD [address] [place] [address] documented as of this encounter Goals Goal [...] documented as of this encounter Care Teams Netsuite Consultant Relationship Specialty Start Date End Date Leta Soto MD [address] [place] [address] PCP - General Internal Medicine 04/11/23 Yajaira Antonio [address] [place] [address] 3rd [place] [address] Gastroenterology 09/04/24 documented as of this encounter
--- OUTSIDE RECORDS SUMMARY | 2024-11-12 19:31 | XMS_ITS | Encounter Summary ---
Author Organization [employer] Address 75 [facility] 7t [place] [address] Care Team Providers Care Neurosurgical Nurse Practitioner Name Role Phone Leta Soto MD Primary Care Pro vider Yajaira Antonio Unavailable Reason for Visit * Reason Onset Date Comments december recall 10/13/2024 Encounter Details Date Type Department Care Team (Late st Contact Info) Description 10/13/[address] 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 Recall letter sent. Appointment: Office Visit Extended Note: WT & BP Month: December With: Yuriy Please schedule appointment if Patient calls Back. documented in this encounter Plan of Treatment Upcoming Encounters Date Type Department Care Team (Late st Contact Info) Description 11/24/2024 9:00 AM EDT Office Visit [facility] MEDICINE [address] [place] [address] Ysabel Omer MD [address] [place] [address] documented as of this encounter Goals Goal [...] documented as of this encounter Care Teams Neurosurgical Nurse Practitioner Relationship Specialty Start Date End Date Leta Soto MD [address] [place] [address] PCP - General Internal Medicine 04/11/23 Yajaira Antonio [address] [place] [address] 3rd [place] [address] Gastroenterology 09/04/24 documented as of this encounter
[2024-11-12] MEDS: Lactulose 20 GM/30 ML SOLUTION 60 GM PO (19:32)
[2024-11-12] MEDS: iohexoL 350 MG/ML 100 ML INFUS..BTL 65 ML IV (20:12)
--- NOTE | 2024-11-12 21:01 | PM.IMHP ---
History of Present Illness Date of Service: 11/12/24 Attending physician on admission: Sonny Maradiaga Chief Complaint: Dizziness and SOB Pt is a 63-year-old male with a PMH significant for?HCV cirrhosis with varices s/p tips, portal and splenic vein thrombosis, chronic thrombocytopenia, HTN, and hx of noncompliance with home medications who presents to the ED with?multiple complaints, including dizziness, chest pain, SOB, and feeling disoriented. Pt was just discharged from hospital yesterday on 11/11 after being admitted and treated for hepatic encephalopathy due to decompensated cirrhosis. Pt had no ascites at that time and was initially treated with empiric ceftriaxone for possible SBP. Pt alert and oriented to self and situation, and partly to place (knows he is in a hospital but unable to state which one), and partly to time (does not know year but remembers being in this hospital yestereday). Pt remembers was in the hospital yesterday and discharged home. Reports attempted to get his prescribed medications but was unable to find the correct pharmacy. Pt overall is a poor historian and presents as mildly confused, but not obtunded or significantly encephalopathic. Pt answering appropriately and following all commands.. Reports multiple complaints, including dizziness, cough, back aide, diaphoresis, chest tightness, and feeling like his voice was changing. Overall reports he felt ?terrible? and needed to come to the hospital to ?get checked out?. Denies nausea, vomiting, diarrhea. In the ED pt was hypertensive up to 171/66, vitals otherwise stable and WNL. Labs were significant for ammonia of 121 (elevated from 117 yesterday), otherwise grossly unremarkable and around baseline for pt. Chronic pancytopenia around baseline with wbc's 3.3, H&H 11.3/34.4, and platelets 27. No significant electrolyte abnormality, hepatic function around baseline. BNP WNL. Serial troponins flat at 11.9 and 12.0. Tested negative for flu, COVID, RSV. CXR negative for acute abnormality. CTA of chest negative for PE, though showed cardiomegaly with mild diffuse ground-glass opacities throughout both lungs consistent with alveolar pulmonary edema. EKG demonstrated normal sinus rhythm without evidence of significant ischemic changes from prior. Pt was treated with lactulose 60 g p.o.. Pt will be admitted to the hospital under observation for treatment and further evaluation of dizziness in the setting of hyperammonemia. Review of Systems Review of Systems: Negative except for that which is stated in the [facility] Medical History Hepatic encephalopathy Portal vein thrombosis Cirrhosis Splenic vein thrombosis Sepsis Cirrhosis of liver with ascites Abdominal pain Thrombocytopenia Pancytopenia Cirrhosis Hepatitis C virus infection Esophageal varices Pancytopenia Iron deficiency anemia Cirrhosis Hepatitis C HBP (high blood pressure) Family History Maternal Grandmother Breast CA Uterus cancer Mother Primary lung cancer of unknown cell type Surgical History S/P TIPS (transjugular intrahepatic portosystemic shunt) H/O left inguinal hernia repair H/O eye surgery History of esophagogastroduodenoscopy (EGD) H/O colonoscopy Social History Household Members: None Household Members Other:: senior living Housing: Other Housing Other:: senior living Are you a primary sub acute care nurse to a significant other at home: No Do you presently have visiting nurse or other home services: No Comment: pt refusing alarm's Patient Tobacco Use Status: Tobacco use Unknown Tobacco use type: Cigarette Cigarette Packs Per Day: 1 Cigarettes Per Day: 5 Years Smoked: 30 Smoked in Last 30 Days: Yes Second Hand Smoke Exposure: No Use of substances other than those prescribed or required for medical reasons: No Substance Use Type: Crack/Cocaine and Marijuana Advance Directives: Yes Advance Directives on File: Yes Advance Directives Date on File: 04/02/24 service: No Current occupational status: retired Meds Allergies Allergy/AdvReac Type Severity Reaction Status Date / Time aspirin AdvReac Severe stomach Verified 11/12/24 16:23 bleeding NSAIDS (Non-Steroidal AdvReac Severe liver Verified 11/12/24 16:23 Anti-Inflamma concerns Physical Exam Vital Signs and Narrative: Vital Signs: Last Vital Signs Temp 97.8 F 11/12/24 16:22 Pulse 79 11/12/24 19:01 Resp 12 11/12/24 19:01 BP 171/66 H 11/12/24 19:01 Pulse Ox 100 11/12/24 19:01 O2 Del Method Room Air 11/12/24 19:01 BMI result Body Mass Index 27.5 General: Alert and oriented to name and situation, and partly to time and place. Answering appropriately and fully. In no acute distress Resp: CTA bilaterally CVS: S1, S2, RRR GI: +BS, NT, no distention Skin: Warm, dry Neuro: Cranial nerves II-XII grossly intact bilaterally. Motor grossly intact bilaterally. No focal deficits noted. Extremities: No edema Psych: Appropriate affect Results Labs 11/12/24 17:04 11/12/24 16:54 Labs: Laboratory Results - last 24 hr 11/12/24 11/12/24 11/12/24 16:54 17:04 17:05 MCV 86.2 MCH 28.3 MCHC 32.8 RDW 17.4 H Plt Count 27 L MPV 11.9 Immature Gran % (Auto) 0.3 Neut % (Auto) 66.1 Lymph % (Auto) 23.3 [place] % (Auto) 8.2 Eos % (Auto) 2.1 Baso % (Auto) 0.0 Lymph # (Auto) 0.8 L [place] # (Auto) 0.3 Eos # (Auto) 0.1 Baso # (Auto) 0.0 Abs Immat Gran (auto) 0.01 Absolute Neuts (auto) 2.2 Absolute Nucleated RBC 0.000 Nucleated RBC % (auto) 0.0 PT 15.1 H INR 1.3 H D-Dimer High Sensitivty 714 Anion Gap 7 L Estim Creat Clear Calc 121.8 Estimated GFR > 60 Random Glucose 151 H Calcium 8.6 Total Bilirubin 1.5 H Direct Bilirubin 0.7 H AST 51 H ALT 33 Alkaline Phosphatase 139 H Ammonia 121 H B-Natriuretic Peptide 76 Total Protein 6.5 Albumin 2.9 L Lipase 35 Influenza Type A (PCR) NEGATIVE Influenza Type B (PCR) NEGATIVE RSV RNA Qual (PCR) NEGATIVE SARS-CoV-2 RNA (RT-PCR) NEGATIVE Assessment and Plan (1) Hyperammonemia: Status: Acute Plan Pt is a 63-year-old male with a PMH significant for?HCV cirrhosis with varices s/p tips, portal and splenic vein thrombosis, chronic thrombocytopenia, HTN, and hx of noncompliance with home medications who presents to the ED with?multiple complaints, including dizziness, chest pain, SOB, and feeling disoriented. Pt will be admitted to the hospital under observation for treatment and further evaluation of dizziness in the setting of hyperammonemia. Hyperammonemia Ammonia 121, elevated from 117 yesterday Pt with long hx of medication noncompliance, did not take home lactulose Pt does not appear acutely encephalopathic, knows he was in this hospital yesterday Pt treated with lactulose 60 g in the ED Will treat with lactulose 30 g t.i.d. Follow ammonia Dizziness BMP grossly unremarkable Check orthostatics Chest pain/tightness and SOB Unclear etiology: Serial troponins WNL and flat at 11.9 and 12.0 EKG without ischemic changes CXR unremarkable CTA negative for PE No indication for additional cardiac workup this time Question of pulmonary edema CTA showing diffuse ground-glass opacities throughout both lungs consistent with alveolar pulmonary edema Pt not hypoxic, satting at 100% on RA Appears euvolemic without Lower leg edema or ascites BNP WNL at 76 No indication for diuretics at this time HTN Continue carvedilol if orthostatics are negative Pancytopenia Secondary to cirrhosis Stable, at baseline Full Code Attending:?Dr. Maradiaga DVT Prophylaxis: Pneumatic compression due to pancytopenia Pt will be admitted to the hospital under observation for treatment and further evaluation of dizziness in the setting of hyperammonemia. Pt will require close monitoring of labs and vitals, including blood pressure and ammonia levels, as well as mentation. Quality Stroke Does the patient have a stroke diagnosis?: No VTE Prior VTE?: No VTE Risk Level:: Medical - moderate - high VTE Device Contraindication: N/A - Device Ordered VTE Drug Contraindication: Treatment Not Indicated
--- NOTE | 2024-11-12 21:48 | PHA.MEDREC ---
Addendum entered by Gerhard Peng 11/12/24 21:55: reviewed Original Note: Pharmacy Consult ? Medication Reconciliation Pharmacy has completed the medication reconciliation. Spoke with patient utilizing hospital education coordinator. Patient states he is not using any medications at home but states he should be taking Carvedilol and Lactulose. The patient then went on saying he was recently here last month and was discharged with it being prescribed to him but he couldn't figure out what pharmacy they sent it too, and he was just discharged yesterday 11/11 and stated again it was prescribed again but he doesn't know where we sent it. He doesnt remember the last time he took any medications at home.
[2024-11-13 04:36] LABS: Alanine Aminotransferase 28 U/L (0-40); Albumin Level 2.4 g/dL (3.5-5.0); Alkaline Phosphatase 131 U/L (39-117); Anion Gap 8 (12-20); Aspartate Amino Transferase 53 U/L (5-37); Bilirubin Total 1.1 mg/dL (0.0-1.0); Blood Urea Nitrogen 15 mg/dL (9-16); Calcium 8.4 mg/dL (8.4-10.2); Carbon Dioxide 24 mmol/L (22-29); Chloride 116 mmol/L (96-108); Creatinine Clr Calc Pharmacy 107.7; Estimated Glomerular Filt Rate > 60; Glucose Random 118 mg/dL (60-115); Potassium 3.8 mmol/L (3.3-5.1); Sodium 144 mmol/L (135-145); Total Protein 5.5 g/dL (6.5-8.0)
[2024-11-13 04:45] VITALS: BP 112/46; PULSE 76; RESP 12; TEMP 36.8; O2SAT 100
[2024-11-13 08:53] VITALS: BP 122/52; PULSE 75; RESP 14; TEMP 37; O2SAT 100
[2024-11-13] MEDS: 0.9 % Sodium Chloride Flush 3 ML SYRINGE IVFLUSH (09:58)
[2024-11-13 10:40] LABS: Ammonia 82 umol/L (13-55)
--- NOTE | 2024-11-13 11:21 | P.DS_ITS ---
DS: Providers Provider Date of Service: 11/13/24 Date of admission: 11/13/24 08:58 Date of discharge: 11/13/24 Primary care physician: Unknown Physician DS: Diagnosis Discharge Diagnosis (1) Hyperammonemia: Status: Acute DS: Summary Hospital Course Hospital Course: Attending physician on admission: Sonny Maradiaga Chief Complaint: Dizziness and SOB Pt is a 63-year-old male with a PMH significant for?HCV cirrhosis with varices s/p tips, portal and splenic vein thrombosis, chronic thrombocytopenia, HTN, and hx of noncompliance with home medications who presents to the ED with?multiple complaints, including dizziness, chest pain, SOB, and feeling disoriented. Pt was just discharged from hospital yesterday on 11/11 after being admitted and treated for hepatic encephalopathy due to decompensated cirrhosis. Pt had no ascites at that time and was initially treated with empiric ceftriaxone for possible SBP. Pt alert and oriented to self and situation, and partly to place (knows he is in a hospital but unable to state which one), and partly to time (does not know year but remembers being in this hospital yestereday). Pt remembers was in the hospital yesterday and discharged home. Reports attempted to get his prescribed medications but was unable to find the correct pharmacy. Pt overall is a poor historian and presents as mildly confused, but not obtunded or significantly encephalopathic. Pt answering appropriately and following all commands.. Reports multiple complaints, including dizziness, cough, back aide, diaphoresis, chest tightness, and feeling like his voice was changing. Overall reports he felt ?terrible? and needed to come to the hospital to ?get checked out?. Denies nausea, vomiting, diarrhea. In the ED pt was hypertensive up to 171/66, vitals otherwise stable and WNL. Labs were significant for ammonia of 121 (elevated from 117 yesterday), otherwise grossly unremarkable and around baseline for pt. Chronic pancytopenia around baseline with wbc's 3.3, H&H 11.3/34.4, and platelets 27. No significant electrolyte abnormality, hepatic function around baseline. BNP WNL. Serial troponins flat at 11.9 and 12.0. Tested negative for flu, COVID, RSV. CXR negative for acute abnormality. CTA of chest negative for PE, though showed cardiomegaly with mild diffuse ground-glass opacities throughout both lungs consistent with alveolar pulmonary edema. EKG demonstrated normal sinus rhythm without evidence of significant ischemic changes from prior. Pt was treated with lactulose 60 g p.o.. Pt will be admitted to the hospital under observation for treatment and further evaluation of dizziness in the setting of hyperammonemia. Hospital course: Pt is a 63-year-old male with a PMH significant for?HCV cirrhosis with varices s/p tips, portal and splenic vein thrombosis, chronic thrombocytopenia, HTN, and hx of noncompliance with home medications who presents to the ED with?multiple complaints, including dizziness, chest pain, SOB, and feeling disoriented. Pt will be admitted to the hospital under observation for treatment and further evaluation of dizziness in the setting of hyperammonemia. Hyperammonemia/hepatic encephalopaathy Ammonia 121, elevated from 117 yesterday, now 82. Not encephalopathic at this time as he has made a more rapid than expected recovery. 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 He is advise to continue lactulose and take it as recommended. Dizziness BMP grossly unremarkable Check orthostatics resolved Chest pain/tightness and SOB Unclear etiology: Serial troponins WNL and flat at 11.9 and 12.0 EKG without ischemic changes CXR unremarkable CTA negative for PE No indication for additional cardiac workup this time and reporting no more chest pain Question of pulmonary edema CTA showing diffuse ground-glass opacities throughout both lungs consistent with alveolar pulmonary edema Pt not hypoxic, satting at 100% on RA Appears euvolemic without Lower leg edema or ascites BNP WNL at 76 No indication for diuretics at this time HTN Continue carvedilol if orthostatics are negative Pancytopenia Secondary to cirrhosis Stable, at baseline Being discharged home and he is ok with the plan Time Attestation Discharge Coordination Time (in mins): 40 Quality: Safe Use of Opioids Does Pt have an Active Cancer Diagnosis on the Problem List?: No Quality: Stroke Does the patient have a stroke diagnosis?: No Physical Exam Vital Signs: Vital Signs: Last Vital Signs Temp 98.6 F 11/13/24 08:53 Pulse 75 11/13/24 08:53 Resp 14 11/13/24 08:53 BP 122/52 L 11/13/24 08:53 Pulse Ox 100 11/13/24 08:53 O2 Del Method Room Air 11/13/24 08:53 BMI result Body Mass Index 27.5 General: AO X 3, no acute distress Resp: CTA bilateral CVS: S1,S2,RRR GI: +BS, NT, no distention Skin: No rash Neuro: motor grossly intact Psych: appropriate affect DS: Data Data Completed and Pending Completed studies during hospitalization [Text1]: Procedures Bypass Portal Vein to Hepatic Vein with Synthetic Substitute, Percutaneous Approach (10/08/24) Transfusion of Nonautologous Platelets into Peripheral Vein, Percutaneous Approach (10/08/24) Labs on day of discharge: Laboratory Results - last 24 hr 11/12/24 11/12/24 11/12/24 16:54 17:04 17:05 WBC 3.3 L RBC 3.99 L Hgb 11.3 L Hct 34.4 L MCV 86.2 MCH 28.3 MCHC 32.8 RDW 17.4 H Plt Count 27 L MPV 11.9 Immature Gran % (Auto) 0.3 Neut % (Auto) 66.1 Lymph % (Auto) 23.3 [place] % (Auto) 8.2 Eos % (Auto) 2.1 Baso % (Auto) 0.0 Lymph # (Auto) 0.8 L [place] # (Auto) 0.3 Eos # (Auto) 0.1 Baso # (Auto) 0.0 Abs Immat Gran (auto) 0.01 Absolute Neuts (auto) 2.2 Absolute Nucleated RBC 0.000 Nucleated RBC % (auto) 0.0 PT 15.1 H INR 1.3 H D-Dimer High Sensitivty 714 Sodium 144 Potassium 4.7 Chloride 115 H Carbon Dioxide 27 Anion Gap 7 L BUN 17 H Creatinine 0.69 Estim Creat Clear Calc 121.8 Estimated GFR > 60 Random Glucose 151 H Calcium 8.6 Total Bilirubin 1.5 H Direct Bilirubin 0.7 H AST 51 H ALT 33 Alkaline Phosphatase 139 H Ammonia 121 H Troponin I High Sens 11.9 D B-Natriuretic Peptide 76 Total Protein 6.5 Albumin 2.9 L Lipase 35 Influenza Type A (PCR) NEGATIVE Influenza Type B (PCR) NEGATIVE RSV RNA Qual (PCR) NEGATIVE SARS-CoV-2 RNA (RT-PCR) NEGATIVE 11/12/24 11/13/24 11/13/24 19:40 03:35 10:07 WBC RBC Hgb Hct MCV MCH MCHC RDW Plt Count MPV Immature Gran % (Auto) Neut % (Auto) Lymph % (Auto) [place] % (Auto) Eos % (Auto) Baso % (Auto) Lymph # (Auto) [place] # (Auto) Eos # (Auto) Baso # (Auto) Abs Immat Gran (auto) Absolute Neuts (auto) Absolute Nucleated RBC Nucleated RBC % (auto) PT INR D-Dimer High Sensitivty Sodium 144 Potassium 3.8 Chloride 116 H Carbon Dioxide 24 Anion Gap 8 L BUN 15 Creatinine 0.78 Estim Creat Clear Calc 107.7 Estimated GFR > 60 Random Glucose 118 H Calcium 8.4 Total Bilirubin 1.1 H Direct Bilirubin AST 53 H ALT 28 Alkaline Phosphatase 131 H Ammonia 82 H Troponin I High Sens 12.0 B-Natriuretic Peptide Total Protein 5.5 L Albumin 2.4 L Lipase Influenza Type A (PCR) Influenza Type B (PCR) RSV RNA Qual (PCR) SARS-CoV-2 RNA (RT-PCR) Discharge Plan Discharge Anticipated Discharge Date/Time: 11/13/24 11:51 Patient Disposition: Home, Self-Care Discharge Diagnosis: Hyperammonemia, non compliant with meds Referrals: Physician,Unknown J [Primary Care Provider] - 1 Week Discharge Medications: Continued lactulose 10 gram/15 mL Solution 20 g PO TID Qty: 3000 2RF carvedilol 3.125 mg Tablet 3.125 mg PO BID Qty: 60 0RF Protocol: Hold for SBP/HR < HOLD for SBP < : 90 HOLD for HR < : 60 Discharge Orders: Discharge Order (Routine); Ordered 11/13/24 Ordered By: Gabino Cuellar Diet: Advance to usual diet Activity on Discharge: As tolerated Stand Alone Forms: Patient Portal Discharge page Print Language: Nam[place]ian Care Plan Goals: recovery from hepatic encephalopathy Health Concerns: recovery from back hepatic encephalopathy Plan of Treatment: take all your medication as prescribed and follow up with your Doctor in a week Assessment: see above
[2024-11-13 11:27] LABS: Appearance Urine Clear; Color Urine Yellow; Glucose Urine UA Negative (Negative); Leukocyte Esterase Urine Negative (Negative); Nitrite Urine Negative (Negative); Specific Gravity - Urine 1.025 (1.005-1.025); Urine Blood Negative (Negative); Urine Ketones Negative (Negative); Urine Protein Negative (Neg-Trace)
[2024-11-13 11:44] VITALS: BP 118/52; PULSE 70
[2024-11-13] MEDS: carvediloL 3.125 MG TABLET PO (11:44)
[2024-11-13] MEDS: Lactulose 20 GM/30 ML SOLUTION 30 GM PO (11:46)
[2024-11-13 11:47] VITALS: BP 118/52
[2024-11-13] MEDS: Furosemide 20 MG TABLET PO (11:47)
--- NOTE | 2024-11-13 12:19 | MHC.CM.PN ---
Addendum entered by Alayna Falcon 11/13/24 15:11: CM RECEIVED A RETURN CALL FROM [facility]TS [facility]AND[facility] SHE REPORTS THE PT STATED HE PICKED UP HIS MEDS SHE DID NOT PROVIDE TRANSPORT AT [place], BUT DID CONFIRM HE IS HOME SAFELY CM CALLED [facility] BACK, THEY CONFIRM HE PICKED UP HIS LACTULOSE YESTERDAY, BUT HIS OTHER MED COULD NOT BE FILLED BECAUSE THE INSURANCE NOTED IT WAS TOO SOON CM CONFIRMED WITH [facility] THAT THEY HAVE BOTH OF HIS MEDS AT HOME Original Note: PT IS HAS BEEN STAYING AT THE [address] FOR SOME TIME, HE IS ABLE TO RETURN AT [place] HE HAS NO SERVICES OR DME PT HAS A HCP ON FILE, NO ANSWER CM CALLED [facility]AND[facility], MAKENZIE [phone] AND LEFT A PCP: PAT PHILLIPS PT CLEARED TO [place] HOME TODAY WITH NO SERVICES PER NOTES, PT DID NOT PUBLIC HEALTH ADMINISTRATOR HIS PRESCRIPTIONS ON 11/11/24 WHEN HE WAS DISCHARGED CM CALLED [facility] AND WAS INFORMED PTS INSURANCE WILL ONLY COVER THE MED IF IT IS A 90 DAY SUPPLY MESSAGE RELAYED TO MD WHO WILL SEND A NEW RX PTS GRAND DAUGHTER USUALLY PROVIDES TRANSPORT, CM AWAITING A RETURN CALL
[2024-11-13 12:28] VITALS: BP 136/44; PULSE 68; RESP 14; TEMP 37.1; O2SAT 98
== END 2024-11-13 13:24 | disposition home or self-care (01) | DRG 423 ==
LOC: HO.ED 20:37 → HO.EDOVER 21:31
PROVIDERS: Admitting Provider Student in an Organized Health Care Education/Training Program; Emergency Provider Emergency Medicine; PCP Student in an Organized Health Care Education/Training Program; Visit Provider Internal Medicine
DX: E72.20 Disorder of urea cycle metabolism, unspecified (principal); D61.818 Other pancytopenia; J81.1 Chronic pulmonary edema; K74.69 Other cirrhosis of liver; I10 Essential (primary) hypertension; Z20.822 Contact with and (suspected) exposure to COVID-19; Z86.19 Personal history of other infectious and parasitic diseases; Z59.01 Sheltered homelessness; Z79.899 Other long term (current) drug therapy
CPT/HCPCS: 0241U; 36415; 71045; 71275; 80048; 80053; 80076; 81003; 82140; 83690; 83880; 84484; 85025; 85379; 85610; 93005; 99285; Q9967

== ENCOUNTER → 2024-11-12 16:07 | Outpatient (BNV) | payer MEDICAID, SELFPAY | PROVIDERS: Admitting Provider Student in an Organized Health Care Education/Training Program; Emergency Provider Emergency Medicine; Visit Provider Internal Medicine Cardiovascular Disease | DX: R07.9 Chest pain, unspecified (principal) | CPT/HCPCS: 93010 ==

== ENCOUNTER → 2024-11-12 16:21 | Outpatient (BNV) | payer MEDICAID, SELFPAY | PROVIDERS: Emergency Provider Emergency Medicine; Visit Provider Radiology Diagnostic Radiology | DX: R07.9 Chest pain, unspecified (principal); I51.7 Cardiomegaly; R91.8 Other nonspecific abnormal finding of lung field; J43.8 Other emphysema | CPT/HCPCS: 71045; 71275 ==

== ENCOUNTER → 2024-11-13 08:58 | Outpatient (BNV) | payer MEDICAID, SELFPAY | PROVIDERS: Admitting Provider Student in an Organized Health Care Education/Training Program; Emergency Provider Emergency Medicine; Visit Provider Internal Medicine | DX: E72.20 Disorder of urea cycle metabolism, unspecified (principal) | CPT/HCPCS: 99222; 99239 ==

== ENCOUNTER 2024-11-17 13:51 | Outpatient (REF) | payer MEDICAID, SELFPAY ==
--- OUTSIDE RECORDS SUMMARY | 2024-11-17 15:42 | XMS_ITS | Encounter Summary ---
Author Organization [employer] Address [address] [facility] 7t [place] [address] Care Team Providers Care Boiler Shop Supervisor Name Role Phone Leta Soto MD Primary Care Pro vider Yajaira Antonio Unavailable Encounter Details Date Type Department Care Team (Late st Contact Info) Description 11/07/2024 Orders [address] [facility] External Provider, [facility] Social History Tobacco Use Types Packs/Day [...] Description 11/24/2024 9:00 AM EDT Office Visit [facility] [address] [place] [address] Ysabel Omer MD [address] [place] [phone] 01/07/2025 10:45 AM EDT Office Visit [facility] [address] [place] [address] Leta Forte MD [address] [place] [address] documented as of this encounter Goals Goal [...] EST Narrative 11/07/2024 9:55 AM EST ? [facility] ?[address] ?[place] [address] ? Ultrasound Report ? Signed ? Patient: Adelso Beebe ?MR#: [id number] ?? [id number] ? : 1960 ?Acct:[id number] ? Age/Sex: 63 / M ?ADM Date: 11/07/24 ? Loc: HO.[place] ?MEDSURG-3 ? Attending Dr: Ivis HAMILTON ? Ordering Physician: Lc Cohn MD ?? Date of Service: 11/07/24 ?? Procedure(s): US abdomen limited ?? Accession Number(s): [id number] ? cc: Leta Soto MD; Lc Cohn [...] 09:52 AM EST RP ? Dictated By: ?Lopez Benjamin MD ? Signed By: ?<Electronically signed by Lopez Benjamin MD in OV> ?11/07/24 0952 ? DD/ ? TD/TT: 11/07/24 0945 ? Manager Route: MSM ? Procedure Note Donjuana, Image - 11/07/2024 [place] [address] Ultrasound Report Signed Patient: Adelso BeebeMR#: [id number] : 1960cct:[id number] Age/Sex: 63 / MADM Date: 11/07/24 Loc: [facility]-[address]: Ivis HAMILTON Ordering Physician: Lc Cohn MD Date of Service: 11/07/24 Procedure(s): US abdomen limited Accession Number(s): [id number] cc: Leta Soto MD; Lc Cohn MD [...] MD in OV> 11/07/2452 DD/ 4 TD/TT: 11/07/2445 Manager Route: KAZ us [facility] External Provider IMG US PROCEDURES Final Result * CT Abdomen Pelvis w/ Contrast (11/07/2024 3:31 AM EST) Anatomical Region Laterality Modality Body, Pelvis, Abdomen Computed T omography 11/07/2024 3:31 AM EST Narrative 11/07/2024 3:33 AM EST ? [facility] ?[address] ?[place] [address] ? CT Scan Report ? Signed ? Patient: Godfrey Mcmanus,Adelso ?MR#: [id number] ?? [id number] ? : 1960 ?Acct:[id number] ? Age/Sex: 63 / M ?ADM Date: 11/07/24 ? Loc: HO.ED ? Attending Dr: ? Ordering Physician: Gilbert Gandara MD ?? Date of Service: 11/07/24 ?? Procedure(s): CT abdomen pelvis w IV con ?? Accession Number(s): [id number] ? cc: Gilbert Gandara MD; Leta Soto MD ? Report Number: ?? [id number]: Total DLP = 1166.00 mGy-cm ? CLINICAL [...] DD/ 0331 ? TD/TT: 11/07/24 0331 ? Manager Route: ? Procedure Note Hiral, Mehreen - 11/07/[address] [address] [address] Scan Report Signed Patient: Adelso BeebeMR#: [id number] : 2Acct:[id number] Age/Sex: 63 / MADM Date: 11/07/24 Loc: HO.ED Attending Dr: Ordering Physician: Gilbert Gandara MD Date of Service: 11/07/24 Procedure(s): CT abdomen pelvis w IV con Accession Number(s): [id number] cc: Gilbert Gandara MD; Leta Soto MD Report Number: [id number]: Total DLP = 1166.00 mGy-cm CLINICAL HISTORY: [...] MD in OV> 11/07/24331 DD/ 0 TD/TT: 11/07/24330 Manager Route: [facility] External Provider IMG CT PROCEDURES Final Result * CT Chest w/ Contrast (11/07/2024 3:21 AM EST) Anatomical Region Laterality Modality Body, Chest Computed Tomogra phy 11/07/2024 3:21 AM EST Narrative 11/07/2024 3:23 AM EST ? [facility] ?[address] ?[place] [address] ? CT Scan Report ? Signed ? Patient: Adelso Beebe ?MR#: [id number] ?? [id number] ? : 1960 ?Acct:[id number] ? Age/Sex: 63 / M ?ADM Date: 11/07/24 ? Loc: HO.ED ? Attending Dr: ? Ordering Physician: Gilbert Gandara MD ?? Date of Service: 11/07/24 ?? Procedure(s): CT chest w IV con ?? Accession Number(s): [id number] ? cc: Gilbert Gandara MD; Leta Soto MD ? Report Number: ?? [id number]: Total DLP = ??483.00 mGy-cm ? CLINICAL [...] DD/ 0321 ? TD/TT: 11/07/24 0321 ? Manager Route: ? Procedure Note Donotjuanyinterpreter, Image - 11/07/[address] [place] [address] [address] Scan Report Signed Patient: Adelso BeebeMR#: [id number] : 2Acct:[id number] Age/Sex: 63 / MADM Date: 11/07/24 Loc: HO.ED Attending Dr: Ordering Physician: Gilbert Gandara MD Date of Service: 11/07/24 Procedure(s): CT chest w IV con Accession Number(s): [id number] cc: Gilbert Gandara MD; Leta Soto MD Report Number: [id number]: Total DLP = 483.00 mGy-cm CLINICAL HISTORY: [...] Eliud Spears MD in OV> 11/07/24322 DD/ 0 TD/TT: 11/07/24320 Manager Route: [facility] External Provider IMG CT PROCEDURES Final Result * CT Cervical Spine w/o Contrast (11/07/2024 2:25 AM EST) Anatomical Region Laterality Modality Spine, C-spine Computed Tomogra phy 11/07/2024 2:25 AM EST Narrative 11/07/2024 2:26 AM EST ? [facility] ?[address] ?[place] [address] ? CT Scan Report ? Signed ? Patient: Godfrey Mcmanus,Adelso ?MR#: [id number] ?? [id number] ? : 1960 ?Acct:[id number] ? Age/Sex: 63 / M ?ADM Date: 11/07/24 ? Loc: HO.ED ? Attending Dr: ? Ordering Physician: Gilbert Gandara MD ?? Date of Service: 11/07/24 ?? Procedure(s): CT cervical spine wo IV con ?? Accession Number(s): [id number] ? cc: Gilbert Gandara MD; Leta Soto MD ? Report Number: ?? [id number]: Total DLP = ??344.00 mGy-cm ? CLINICAL HISTORY: fall and ams ? CT cervical spine without contrast ? Comparison: None ? Findings: ?? There is grade 1 anterolisthesis of C3 on C4, of C6 on C7, and also of C7 ?? on T1. Irregularity and sclerosis of the vertebral body endplates present ?? at C6-C7. Slqs-ap-pkvfvvho degenerative endplate changes are present at ?? [...] ? DD/ 4 ? TD/TT: 11/07/24224 ? Manager Route: ? Procedure Note Mehreen Blackman - 11/07/[address] [address] [address] Scan Report Signed Patient: Adelso Beebe#: [id number] : 2Acct:[id number] Age/Sex: 63 / MADM Date: 11/07/24 Loc: HO.ED Attending Dr: Ordering Physician: Gilbert Gandara MD Date of Service: 11/07/24 Procedure(s): CT cervical spine wo IV con Accession Number(s): [id number] cc: Gilbert Gandara MD; Leta Soto MD Report Number: [id number]: Total DLP = 344.00 mGy-cm CLINICAL HISTORY: fall and ams CT cervical spine without contrast Comparison: None Findings: There is grade 1 anterolisthesis of C3 on C4, of C6 on C7, and also of C7 on T1. Irregularity and sclerosis of the vertebral body endplates present at C6-C7. Aeys-hn-eqbmzkrc degenerative endplate changes are present at the cervical spine. Multilevel bilateral degenerative facet arthropathy also present at the cervical spine No acute fractures or dislocations. Impression: 1. No acute fracture or dislocation injury identified at the cervical spine. This document has been electronically signed by: Eliud Spears MD on 11/07/2024 02:25:08 Dictated By: Eliud Separs MD Signed By: <Electronically signed by Eliud Spears MD in OV> 11/07/24225 DD/ 4 TD/TT: 11/07/24224 Manager Route: [facility] External Provider IMG CT PROCEDURES Final Result * Urinalysis w/reflex microscopic (11/07/2024 2:08 AM EST) Color Urine Dark Yellow [facility] Appearance Urine Clear [facility] PH 6.0 5.0 - 9.[address] [facility] Glucose Urine UA Negative Negative mg/dL [facility] Urine Blood Negative Negative [facility] Specific [place] - Urine 1.020 1.005 - 1.[address] [facility] Urine Protein Negative Neg-Trace mg/dL [facility] Urine Ketones Trace Negative mg/dL [facility] Nitrite Urine Negative Negative [facility] Leukocyte Esterase Urine Negative Negative [facility] 11/07/2024 2:08 AM EST 11/07/2024 2:12 AM EST Narrative [facility] - 11/07/2024 2:17 AM EST [id number], [employer] us Generic External Data Provider LAB URINE ORDERAB LES Final Result [facility] [address] [facility] [place] [address] [phone] * CT Head w/o Contrast (11/07/2024 1:40 AM EST) Anatomical Region Laterality Modality Head, Neck Computed Tomogra phy 11/07/2024 1:40 AM EST Narrative 11/07/2024 1:41 AM EST ? [facility] ?[address] ?[place] [address] ? CT Scan Report ? Signed ? Patient: Adelso Beebe ?MR#: [id number] ?? [id number] ? : 1960 ?Acct:[id number] ? Age/Sex: 63 / M ?ADM Date: 11/07/24 ? Loc: HO.ED ? Attending Dr: ? Ordering Physician: Gilbert Gandara MD ?? Date of Service: 11/07/24 ?? Procedure(s): CT head/brain wo IV con ?? Accession Number(s): [id number] ? cc: Gilbert Gandara MD; Leta Soto MD ? Report Number: ?? [id number]: Total DLP = ??743.00 mGy-cm ? CLINICAL HISTORY: ams ? CT head without contrast ? Comparison: CT/TN/SR - CT HEAD/BRAIN WO IV CON - [...] DD/ 0140 ? TD/TT: 11/07/24 0140 ? Manager Route: ? Procedure Note Donotuseinterpreter, Image - 11/07/[address] [address] [address] Scan Report Signed Patient: Adelso BeebeMR#: [id number] : 1960cct:[id number] Age/Sex: 63 / MADM Date: 11/07/24 Loc: HO.ED Attending Dr: Ordering Physician: Gilbert Gandara MD Date of Service: 11/07/24 Procedure(s): CT head/brain wo IV con Accession Number(s): [id number] cc: Gilbert Gandara MD; Leta Soto MD Report Number: [id number]: Total DLP = 743.00 mGy-cm CLINICAL HISTORY: ams CT head without contrast Comparison: CT/TN/SR - CT HEAD/BRAIN WO IV CON - [...] signed by Eliud Spears MD in OV> 11/07/24140 DD/ 9 TD/TT: 11/07/24139 Manager Route: [facility] External Provider IMG CT PROCEDURES Final Result documented in this encounter Visit Diagnoses Not on filedocumented in this encounter Additional Health Concerns Assessment Noted Time PHQ-9 Depression Total Score: 18 023 11:23 AM EDT documented as of this encounter Care Teams Boiler Shop Supervisor Relationship Specialty Start Date End Date Leta Soto MD [address] [place] [address] PCP - General Internal Medicine 04/11/23 Yajaira Antonio [address] [place] [address] 3rd [place] [address] Gastroenterology 09/04/24 documented as of this encounter
--- OUTSIDE RECORDS SUMMARY | 2024-11-17 15:42 | XMS_ITS | Encounter Summary ---
Author Organization [employer] Address [address] [facility] 7t [place] [address] Care Team Providers Care Calciner Feeder Name Role Phone Leta Soto MD Primary Care Pro vider Yajaira Antonio Unavailable Encounter Details Date Type Department Care Team (Late st Contact Info) Description 11/11/2024 Telephone [facility] [address] [place] [address] Leta Soto MD [address] [place] [address] Social History Tobacco Use Types Packs/Day Years [...] with others, in a hotel, in a senior care, living outside on the street, on a [...] 12:27 PM EST Tc from amrita stiles cyanide case hardener requesting the status on pt documented in this encounter Plan of Treatment Upcoming Encounters Date Type Department Care Team (Late st Contact Info) Description 11/24/2024 9:00 AM EDT Office Visit [facility] [address] [place] [address] Ysabel Omer MD [address] [place] [address] 01/07/2025 10:45 AM EDT Office Visit [facility] [address] [place] [address] [phone] Leta Forte MD [address] [place] [phone] documented as of this encounter Goals Goal [...] documented as of this encounter Care Teams Calciner Feeder Relationship Specialty Start Date End Date Leta Soto MD [address] [place] [address] PCP - General Internal Medicine 04/11/23 Yajaira Antonio [address] [place] [address] 3rd [place] [address] Gastroenterology 09/04/24 documented as of this encounter
--- OUTSIDE RECORDS SUMMARY | 2024-11-17 15:42 | XMS_ITS | Encounter Summary ---
Author Organization [employer] Address [address] [facility] 7t [place] [address] Care Team Providers Care Machine Shop Supervisor Name Role Phone Leta Soto MD Primary Care Pro vider Yajaira Antonio Unavailable Encounter Details Date Type Department Care Team (Late st Contact Info) Description 10/31/2024 Orders Only [facility] External Provider, [facility] Social History Tobacco Use Types Packs/Day [...] 9:00 AM EDT Office Visit [facility] [address] [place] [address] Ysabel Omer MD [address] [place] [address] 01/07/2025 10:45 AM EDT Office Visit [facility] [address] [place] [address] Leta Forte MD [address] [place], [place] [phone] documented as of this encounter Goals Goal [...] EST Narrative 11/03/2024 1:07 PM EST ? [facility] ?[address] ?[place] [address] ?XRay Report ? Signed ? Patient: Godfrey Mcmanus,Adelso ?MR#: [id number] ?? [id number] ? : 1960 ?Acct:[id number] ? Age/Sex: 63 / M ?ADM Date: 10/31/24 ? Loc: HO.XRAY ? Attending Dr: Yajaira Antonio MD ? Ordering Physician: Yajaira Antonio MD ?? Date of Service: 10/31/24 ?? Procedure(s): XR thoracic spine 2V ?? Accession Number(s): [id number] ? cc: Leta Soto MD; Yajaira Antonio [...] DD/ 1305 ? TD/TT: 11/03/24 1305 ? Library Science Instructor: ? Procedure Note Hiral, Image - 11/03/[address] [address] XRay Report Signed Patient: Adelso Beebe#: [id number] : 2Acct:[id number] Age/Sex: 63 / MADM Date: 10/31/24 Loc: [facility] Attending Dr: Yajaira Antonio MD Ordering Physician: Yajaira Antonio MD Date of Service: 10/31/24 Procedure(s): XR thoracic spine 2V Accession Number(s): [id number] cc: Leta Soto MD; Yajaira Antonio MD [...] 11/03/24 1307 DD/ 1305 TD/TT: 11/03/24 1305 Library Science Instructor: [facility] External Provider IMG XR PROCEDURES Final Result * XR Lumbar Spine 2-3 Views (11/03/2024 12:26 PM EST) Anatomical Region Laterality Modality Spine, L-spine Radiographic Susy ging 11/03/2024 12:2 6 PM EST Narrative 11/03/2024 12:28 PM EST ? [facility] ?[address] ?[place] [address] ?XRay Report ? Signed ? Patient: Godfrey Mcmanus,Adelso ?MR#: [id number] ?? [id number] ? : 1960 ?Acct:[id number] ? Age/Sex: 63 / M ?ADM Date: 10/31/24 ? Loc: HO.XRAY ? Attending Dr: Yajaira Antonio MD ? Ordering Physician: Yajaira Antonio MD ?? Date of Service: 10/31/24 ?? Procedure(s): XR lumbar spine 2-3V ?? Accession Number(s): [id number] ? cc: Leta Soto MD; Yajaira Antonio [...] DD/ 1226 ? TD/TT: 11/03/24 1226 ? Library Science Instructor: ? Procedure Note Donaaronter, Image - 11/03/[address] [address] XRay Report Signed Patient: Adelso BeebeMR#: [id number] : 2Acct:[id number] Age/Sex: 63 / MADM Date: 10/31/24 Loc: HO.[place] Attending Dr: Yajaira Antonio MD Ordering Physician: Yajaira Antonio MD Date of Service: 10/31/24 Procedure(s): XR lumbar spine 2-3V Accession Number(s): [id number] cc: Leta Soto MD; Yajaira Antonio MD [...] Lopez MD in OV> 11/03/24 1227 DD/ 25 TD/TT: 11/03/241225 Library Science Instructor: [facility] External Provider IMG XR PROCEDURES Final Result documented in this encounter Visit Diagnoses Not on filedocumented in this encounter Additional Health Concerns Assessment Noted Time PHQ-9 Depression Total Score: 18 023 11:23 AM EDT documented as of this encounter Care Teams Machine Shop Supervisor Relationship Specialty Start Date End Date Leta Soto MD [address] [place] [address] PCP - General Internal Medicine 04/11/23 Yajaira Antonio [address] [place] [address] Drive 3rd [place] [address] Gastroenterology 09/04/24 documented as of this encounter
--- OUTSIDE RECORDS SUMMARY | 2024-11-17 15:42 | XMS_ITS | Encounter Summary ---
Author Organization [employer] Address [address] [facility] 7 [place] [address] Care Team Providers Care Acid Adjuster Name Role Phone Leta Soto MD Primary Care Pro vider Yajaira Antonio Unavailable Reason for Visit * Reason Onset Date Comments No Show 11/03/2024 Encounter Details Date Type Department Care Team (Late st Contact Info) Description 11/03/2024 Telephone [facility] [address] [place] [address] Leta Soto MD [address] [place] [address] No Show Social History Tobacco Use Types [...] the past 12 months, has t he [employer] gas, oil or water [employer] threatened to shut off services in your [...] Description 11/24/2024 9:00 AM EDT Office Visit [facility] [address] [place] [phone] Ysabel Omer MD [address] [place] [address] 01/07/2025 10:45 AM EDT Office Visit [facility] [address] [place] [address] [phone] Leta Forte MD [address] [place] [address] documented as of this encounter Goals Goal [...] documented as of this encounter Care Teams Acid Adjuster Relationship Specialty Start Date End Date Leta Soto MD [address] [place] [address] PCP - General Internal Medicine 04/11/23 Yajaira Antonio [address] [place] [address] 3rd [place] [address] Gastroenterology 09/04/24 documented as of this encounter
--- OUTSIDE RECORDS SUMMARY | 2024-11-17 15:43 | XMS_ITS | Encounter Summary ---
Author Organization [employer] Address [address] [facility] 7t [place] [address] Care Team Providers Care Seo Expert Name Role Phone Leta Soto MD Primary Care Pro vider Yajaira Antonio Unavailable Encounter Details Date Type Department Care Team (Late st Contact Info) Description 10/23/2024 Refill [facility] [address] [place] [address] Kelly Dick, PharmD [address] [place] [address] Social History Tobacco Use Types Packs/Day Years [...] EDT Office Visit [facility] [address] [place] [phone] Ysabel Omer MD [address] [place] [address] 01/07/2025 10:45 AM EDT Office Visit [facility] [address] [place] [phone] Leta Forte MD [address] [place] [address] documented as of this encounter Goals Goal [...] documented as of this encounter Care Teams Seo Expert Relationship Specialty Start Date End Date Leta Soto MD [address] [place] [address] PCP - General Internal Medicine 04/11/23 Yajaira Antonio [address] [place] [address] 3rd [place] [address] Gastroenterology 09/04/24 documented as of this encounter
--- OUTSIDE RECORDS SUMMARY | 2024-11-17 15:43 | XMS_ITS | Encounter Summary ---
Author Organization [employer] Address [address] [facility] 7 [place] [address] Care Team Providers Care Aquatic Habitat Biologist Name Role Phone Leta Soto MD Primary Care Pro vider Yajaira Antonio Unavailable Reason for Visit * Reason Comments Transition Of Care (Tcm) HDF- Scheduled Encounter Details Date Type Department Care Team (Late st Contact Info) Description 10/22/2024 Patient Outreach [facility] [address] [place] [address] Leta Soto MD [address] [place] [address] Transition Of Care (Tcm) (HDF- Scheduled) Social [...] others, in a hotel, in a senior living, living outside on the street, on a [...] 10/22/24 1158 [facility] Type of [facility] Hospital Admission Date of Admission/Visit 10/08/24 Date of Discharge 10/16/24 Facility [facility] Diagnosis Hep c virus infection Disposition Discharged [...] Wednesdays, and Walk-In Urgent Care Located in [facility] of [facility]. Patient provided with after-hours line for [facility], , which offer night time triage service and option to transfer to driver education road instructor provider if needed. CC will request Discharge summary to be scanned into chart. documented in this encounter Plan of Treatment Upcoming Encounters Date Type Department Care Team (Late st Contact Info) Description 11/24/2024 9:00 AM EDT Office Visit [facility] [address] [place] [address] [phone] Ysabel Omer MD [address] [place] [address] [phone] 01/07/2025 10:45 AM EDT Office Visit [facility] [address] [place] [address] [phone] Leta Forte MD [address] [place] [address] [phone] documented as of this encounter Goals Goal [...] Noted Time PHQ-9 Depression Total Score: 18 04/09/ 023 11:23 AM EDT documented as of this encounter Care Teams Aquatic Habitat Biologist Relationship Specialty Start Date End Date Leta Soto MD [address] [place] [address] [phone] PCP - General Internal Medicine 04/11/23 Yajaira Antonio [address] [place] [address] Drive 3rd [place] [address] Gastroenterology 09/04/24 documented as of this encounter
--- OUTSIDE RECORDS SUMMARY | 2024-11-17 15:43 | XMS_ITS | Encounter Summary ---
Author Organization [employer] Address [address] [facility] 7t [place] [address] Care Team Providers Care Licensed Vocational Nurse Name Role Phone Leta Soto MD Primary Care Pro vider Yajaira Antonio Unavailable Reason for Visit * Reason Onset Date Comments DRY CHAIN WORKER Services 10/22/2024 The patient requ ested DRY CHAIN WORKER services. I called to ask what ADLs he needs assistance with, and he stated that he is unable to talk at this time, and asked for me to call back at about 10:30 today. oYng DRY CHAIN WORKER Services 10/22/2024 I called the patient regarding his request for DRY CHAIN WORKER services. I asked what ADLs he needs assistance with, and he asked me to speak with Jonathan. Jonathan stated that he needs assistance with bathing, getting dressed, medications, housekeeping, cooking, and going to appointments. She stated that if he is approved, she will be his DRY CHAIN WORKER. I informed her that once he is referred, he will be receiving a call from Yong, to set up an evaluation. She requested for Yong to call her, because sometimes the pa Encounter Details Date Type Department Care Team (Late st Contact Info) Description 10/22/2024 Telephone [facility] MEDICINE [address] [place] [address] Leta Soto MD [address] [place] [address] DRY CHAIN WORKER Services (The patient requested DRY CHAIN WORKER services. I called to ask what ADLs he needs assistance with, and he stated that he is unable to talk at this time, and asked for me to call back at about 10:30 today.); [facility]ong DRY CHAIN WORKER Services (I called the patient regarding his request for DRY CHAIN WORKER services. I asked what ADLs he needs assistance with, and he asked me to speak with Jonathan. Jonathan stated that he needs assistance with bathing, getting dressed, medications, housekeeping, cooking, and going to appointments. She stated that if he is approved, she will be his DRY CHAIN WORKER. I informed her that once he is [...] called the patient regarding his request for DRY CHAIN WORKER services. I asked what ADLs he needs assistance with, and he asked me to speak with Ferminbeny. Jonathan stated that he needs assistance with bathing, getting dressed, medications, housekeeping, cooking, and going to appointments. She stated that if heis approved, she will be his DRY CHAIN WORKER. I informed her that once he is referred, he will be receiving a call from [facility], to set up an evaluation. She requested for [facility] to call her, because sometimes the patient does not know how to respond to questions. I informed her that due to confidentiality, they would need an authorization from him, in order for them to speak with her. She verbalized understanding. * Telephone Encounter - Mariia Donahue MA - 10/22/2024 10:06 AM EST The patient requested DRY CHAIN WORKER services. I called to ask what ADLs he needs assistance with, and he stated that he is unable to talk at this time, and asked for me to call back at about 10:30 today. documented in this encounter Plan of Treatment Upcoming Encounters Date Type Department Care Team (Late st Contact Info) Description 11/24/2024 9:00 AM EDT Office Visit [facility] [address] [place] [address] Ysabel Omer MD [address] [place] [address] 01/07/2025 10:45 AM EDT Office Visit [facility] [address] [place] [address] Leta Forte MD [address] [place] [address] documented as of this encounter Goals Goal [...] documented as of this encounter Care Teams Licensed Vocational Nurse Relationship Specialty Start Date End Date Leta Soto MD [address] [place] [id number] PCP - General Internal Medicine 04/11/23 Yajaira Antonio [address]rd [place] [address] Gastroenterology 09/04/24 documented as of this encounter
--- OUTSIDE RECORDS SUMMARY | 2024-11-17 15:43 | XMS_ITS | Encounter Summary ---
Author Organization [employer] Address [address] [facility] 7t [place] [address] Care Team Providers Care Chemistry Lab Instructor Name Role Phone Leta Soto MD Primary Care Pro vider Yajaira Antonio Unavailable Encounter Details Date Type Department Care Team (Late st Contact Info) Description 10/22/2024 Telephone [facility] MEDICINE [address] [place] [address] Kelly Dick, PharmD [address] [place] [address] Social History Tobacco Use Types Packs/Day Years [...] granddaughter to schedule. Please contact Edgardo at [phone]. Thank you documented in this encounter Plan of Treatment Upcoming Encounters Date Type Department Care Team (Late st Contact Info) Description 11/24/2024 9:00 AM EDT Office Visit [facility] MEDICINE [address] [place] [id number] Ysabel Omer MD [address] [place] [phone] 01/07/2025 10:45 AM EDT Office Visit [facility] MEDICINE [address] [place] [phone] Leta Forte MD [address] [place] [phone] documented as of this encounter Goals Goal [...] documented as of this encounter Care Teams Chemistry Lab Instructor Relationship Specialty Start Date End Date Leta Soto MD [address] [place] [phone] PCP - General Internal Medicine 04/11/23 Yajaira Antonio [address] [place] [address] 3rd [place] [address] Gastroenterology 09/04/24 documented as of this encounter
--- OUTSIDE RECORDS SUMMARY | 2024-11-17 15:43 | XMS_ITS | Encounter Summary ---
Author Organization [employer] Address [address] [facility] 7t [place] [address] Care Team Providers Care [employer] Sales Consultant Name Role Phone Leta Soto MD Primary Care Pro vider Yajaira Antonio Unavailable Encounter Details Date Type Department Care Team (Late st Contact Info) Description 12/17/2023 Orders Only [facility] [address] [place] [address] Tatyana Mosquera FNP [address] [place] [address] Social History Tobacco Use Types Packs/Day Years [...] Description 11/24/2024 9:00 AM EDT Office Visit [facility] MEDICINE [address] [place] [phone] Ysabel Omer MD [address] [place] [phone] 01/07/2025 10:45 AM EDT Office Visit [facility] MED[facility]INE [address] [place] [phone] Leta Forte MD [address] [place] [phone] documented as of this encounter Goals Goal Patient Goal Type Associated Problems Recent Progress Patient-Stated? Author Blood Pressure < 140/90 Blood Pressure 149/78(2023 1:02 PM EST) [employer] Record your blood pressure once per day Blood Pressure [employer] documented as of this encounter Visit Diagnoses Not on filedocumented in this encounter Additional Health Concerns Assessment Noted Time PHQ-9 Depression Total Score: 18 023 11:23 AM EDT documented as of this encounter Care Teams [employer] Sales Consultant Relationship Specialty Start Date End Date Leta Soto MD [address] [place] [id number] PCP - General Internal Medicine 04/11/[address] [place] [address] Gastroenterology 09/04/24 documented as of this encounter
--- OUTSIDE RECORDS SUMMARY | 2024-11-17 15:43 | XMS_ITS | Clinical Summary ---
Author Organization [employer] Address [address] [facility] [address] [place] [address] Care Team Providers Care Band Cutter Name Role Phone Leta Soto MD Primary [...] his advocate PLAN: 1. Follow up with [facility]: Not recommended for follow-up 2. Patient goal is be connected to services 3. Behavioral Recommendations a. Patient will engage in service once established b. Patient may return to [facility] for medical needs until a PCP [...] Encounters Date Type Department Care Team Description 11/14/2024 Telephone [facility] MED[facility] [address] [place] [address] Leta Soto MD Lab Orders 11/11/2024 Telephone [facility] MEDICINE [address] [place] [address] Leta Soto MD 11/07/2024 Orders Only [facility] External Provider, [facility] 11/03/2024 Telephone [facility] MEDICINE [address] [place] [address] Leta Soto MD No Show 10/31/2024 Orders Only [facility] External Provider, [facility] 10/28/2024 Orders Only GENERIC EXTERNAL DATA DEPARTMENT Provider, Generic External Data 10/28/2024 Refill [facility] MED[facility]INE [address] [place] [address] Leta Soto MD 10/23/2024 Refill [facility] MED[facility] [address] [place] [address] Kelly Dick, Jayna 10/22/2024 Patient Outreach [facility] [address] [place] [address] Leta Soto MD Transition Of Care (Tcm) (HDF- Scheduled) 10/22/[address] [address] Kelly Dick PharmD 10/22/2024 Telephone [facility] [address] [place] [address] Leta Soto MD ASSISTANT FINANCE DIRECTOR Services (The patient requested ASSISTANT FINANCE DIRECTOR services. I called to ask what ADLs he needs assistance with, and he stated that he is unable to talk at this time, and asked for me to call back at about 10:30 today.); [facility] ASSISTANT FINANCE DIRECTOR Services (I called the patient regarding his request for ASSISTANT FINANCE DIRECTOR services. I asked what ADLs he needs assistance with, and he asked me to speak with Jonathan. Jonathan stated that he needs assistance with bathing, getting dressed, medications, housekeeping, cooking, and going to appointments. She stated that if he is approved, she will be his ASSISTANT FINANCE DIRECTOR. I informed her that once he is referred, he will be receiving a call from [facility], to set up an evaluation. [facility] because sometimes the pa) 10/13/[address] [address] Nhung Caicedo [place] december recall 10/08/2024 Orders Only [facility] External Provider, [facility] 09/02/2024 Orders Only GENERIC EXTERNAL DATA [...] with others, in a hotel, in a [place] health care facility, living outside on the street, on a [...] the past 12 months, has t he [employer], gas, oil or water company threatened to [...] Description 11/24/2024 9:00 AM EDT Office Visit [facility] MEDICINE [address] [place] [address] [phone] Ysabel Omer MD [address] [place] [address] [phone] 01/07/2025 10:45 AM EDT Office Visit [facility] [address] [place] [address] [phone] Leta Forte MD [address] [place] [address] [phone] Health Maintenance Due Date Last Done Comments [...] Depression Monitoring (PHQ-9) 04/24/2024, 04/09/2023 COVID-19 Vaccine ( - 2023-2 5 season) 2024 Influenza Vaccine [...] EST Narrative 11/07/2024 9:55 AM EST ? [facility] ?[address] ?[place], [place] [address] ? Ultrasound Report ? Signed ? Patient: Adelso Bee[facility] ?MR#: [id number] ?? [id number] ? : 1960 ?Acct:[id number] ? Age/Sex: 63 / M ?ADM Date: 11/07/24 ? Loc: [facility].[place] ?[facility]SURG-3 ? Attending Dr: Ivis HAMILTON ? Ordering Physician: Lc Cohn MD ?? Date of Service: 11/07/24 ?? Procedure(s): US abdomen limited ?? Accession Number(s): [id number] ? cc: Leta Soto MD; Lc Cohn [...] AM EST RP ? Dictated By: ?Cassidy,Lopez Fiore MD ? Signed By: ?<Electronically signed by Lopez Benjamin MD in OV> ?11/07/24951 ? DD/ 4 ? TD/TT: 11/07/24 0945 ? Punch Press Operator: MSM ? Procedure Note Donotuseinterpreter, Image - 11/07/[address] [address] Ultrasound Report Signed Patient: Adelso BeebeMR#: [id number] : 1960cct:[id number] Age/Sex: 63 / MADM Date: 11/07/24 Loc: [facility]-[address]: Ivis HAMILTON Ordering Physician: Lc Cohn MD Date of Service: 11/07/24 Procedure(s): US abdomen limited Accession Number(s): [id number] cc: Leta Soto MD; Lc Cohn MD [...] in OV> 11/07/2452 DD/ 4 TD/TT: 11/07/24944 Punch Press Operator: KAZ us [facility] External Provider IMG US PROCEDURES Final Result * CT Abdomen Pelvis w/ Contrast (11/07/2024 3:31 AM EST) Only the most recent of3 resultswithin the time period is included. Anatomical Region Laterality Modality Body, Pelvis, Abdomen Computed T omography 11/07/2024 3:31 AM EST Narrative 11/07/2024 3:33 AM EST ? [facility] ?[address] ?[place] [address] ? CT Scan Report ? Signed ? Patient: Adelso Beebe ?MR#: [id number] ?? [id number] ? : 1960 ?Acct:[id number] ? Age/Sex: 63 / M ?ADM Date: 11/07/24 ? Loc: HO.ED ? Attending Dr: ? Ordering Physician: Gilbert Gandara MD ?? Date of Service: 11/07/24 ?? Procedure(s): CT abdomen pelvis w IV con ?? Accession Number(s): [id number] ? cc: Gilbert Gandara MD; Leta Soto MD ? Report Number: ?? [id number]: Total DLP = 1166.00 mGy-cm ? CLINICAL HISTORY: fall ??please comment on T-spine and L-spine for provider. ? CT abdomen and pelvis with contrast ? Comparison: CT/SR - CT ABDOMEN PELVIS W IV CON - 2/ 20:25 EST ? Findings: ?? No consolidation [...] DD/ 0331 ? TD/TT: 11/07/24 033 ? Punch Press Operator: ? Procedure Note Mehreen Blackman - 11/07/[address] [address] [address] Scan Report Signed Patient: Adelso Beebe#: [id number] : 2Acct:[id number] Age/Sex: 63 / MADM Date: 11/07/24 Loc: HO.ED Attending Dr: Ordering Physician: Gilbert Gandara MD Date of Service: 11/07/24 Procedure(s): CT abdomen pelvis w IV con Accession Number(s): [id number] cc: Gilbert Gandara MD; Leta Soto MD Report Number: [id number]: Total DLP = 1166.00 mGy-cm CLINICAL HISTORY: [...] Spears MD Signed By: <Electronically signed by Eluid Spears MD in OV> 11/07/24331 DD/ 0 TD/TT: 11/07/24330 Punch Press Operator: [facility] External Provider IM CT PROCEDURES Final Result * CT Chest w/ Contrast (11/07/2024 3:21 AM EST) Anatomical Region Laterality Modality Body, Chest Computed Tomogra phy 11/07/2024 3:21 AM EST Narrative 11/07/2024 3:23 AM EST ? [facility] ?[address] ?[place] [address] ? CT Scan Report ? Signed ? Patient: Adelso Beebe ?MR#: [id number] ?? [id number] ? : 1960 ?Acct:[id number] ? Age/Sex: 63 / M ?ADM Date: 11/07/24 ? Loc: HO.ED ? Attending Dr: ? Ordering Physician: Gilbert Gadnara MD ?? Date of Service: 11/07/24 ?? Procedure(s): CT chest w IV con ?? Accession Number(s): [id number] ? cc: Gilbert Gandara MD; Leta Soto MD ? Report Number: ?? [id number]: Total DLP = ??483.00 mGy-cm ? CLINICAL [...] DD/ 0321 ? TD/TT: 11/07/24 0321 ? Punch Press Operator: ? Procedure Note Hiral, Mehreen - 11/07/[address] [place] [address] CT Scan Report Signed Patient: Godfrey Mcmanus,JoseMR#: [id number] : 2Acct:[id number] Age/Sex: 63 / MADM Date: 11/07/24 Loc: HO.ED Attending Dr: Ordering Physician: Gilbert Gandara MD Date of Service: 11/07/24 Procedure(s): CT chest w IV con Accession Number(s): [id number] cc: Gilbert Gandara MD; Leta Soto MD Report Number: [id number]: Total DLP = 483.00 mGy-cm CLINICAL HISTORY: [...] OV> 11/07/24322 DD/ 032 TD/TT: 11/07/24 032 Punch Press Operator: [facility] External Provider IMG CT PROCEDURES Final Result * CT Cervical Spine w/o Contrast (11/07/2024 2:25 AM EST) Anatomical Region Laterality Modality Spine, C-spine Computed Tomogra phy 11/07/2024 2:25 AM EST Narrative 11/07/2024 2:26 AM EST ? [facility] ?[address] ?[place] [address] ? CT Scan Report ? Signed ? Patient: Godfrey Mcmanus,Adelso ?MR#: [id number] ?? [id number] ? : 1960 ?Acct:[id number] ? Age/Sex: 63 / M ?ADM Date: /28/25 ? Loc: HO.ED ? Attending Dr: ? Ordering Physician: Gilbert Gandara MD ?? Date of Service: 11/07/24 ?? Procedure(s): CT cervical spine wo IV con ?? Accession Number(s): [id number] ? cc: Gilbert Gandara MD; Leta Soto MD ? Report Number: ?? [id number]: Total DLP = ??344.00 mGy-cm ? CLINICAL HISTORY: fall and ams ? CT cervical spine without contrast ? Comparison: None ? Findings: ?? There is grade 1 anterolisthesis of C3 on C4, of C6 on C7, and also of C7 ?? on T1. Irregularity and sclerosis of the vertebral body endplates present ?? at C6-C7. Obgy-jp-sesbtpdu degenerative endplate changes are present at ?? [...] ? DD/ 4 ? TD/TT: 11/07/24224 ? Punch Press Operator: ? Procedure Note Hiral, Image - 11/07/[address] [place] [address] [address] Scan Report Signed Patient: Adelso BeebeMR#: [id number] : 1960cct:[id number] Age/Sex: 63 / MADM Date: 11/07/24 Loc: HO.ED Attending Dr: Ordering Physician: Gilbert Gandara MD Date of Service: 11/07/24 Procedure(s): CT cervical spine wo IV con Accession Number(s): [id number] cc: Gilbert Gandara MD; Leta Soto MD Report Number: [id number]: Total DLP = 344.00 mGy-cm CLINICAL HISTORY: fall and ams CT cervical spine without contrast Comparison: None Findings: There is grade 1 anterolisthesis of C3 on C4, of C6 on C7, and also of C7 on T1. Irregularity and sclerosis of the vertebral body endplates present at C6-C7. Xgix-fb-qotgjrdy degenerative endplate changes are present at the [...] in OV> 11/07/24225 DD/ 4 TD/TT: 11/07/24224 Punch Press Operator: [facility] External Provider IMG CT PROCEDURES Final Result * Urinalysis w/reflex microscopic (11/07/2024 2:08 AM EST) Color Urine Dark Yellow [facility] Appearance Urine Clear [facility] PH 6.0 5.0 - 9.0 [facility] Glucose Urine UA Negative Negative mg/dL [facility] Urine Blood Negative Negative [facility] Specific [place] - Urine 1.020 1.005 - 1.025 [facility] Urine Protein Negative Neg-Trace mg/dL [facility] Urine Ketones Trace Negative mg/dL [facility] Nitrite Urine Negative Negative [facility] Leukocyte Esterase Urine Negative Negative [facility] 11/07/2024 2:08 AM EST 11/07/2024 2:12 AM EST Narrative [facility] - 11/07/2024 2:17 AM EST [id number], Clean Catch Generic External Data Provider LAB URINE ORDERAB LES Final Result [facility] [address] [place] [phone] * CT Head w/o Contrast (11/07/2024 1:40 AM EST) Anatomical Region Laterality Modality Head, Neck Computed Tomogra phy 11/07/2024 1:40 AM EST Narrative 11/07/2024 1:41 AM EST ? [facility] ?[address] ?[place] [address] ? CT Scan Report ? Signed ? Patient: Godfrey Mcmanus,Adelos ?MR#: [id number] ?? [id number] ? : 1960 ?Acct:[id number] ? Age/Sex: 63 / M ?ADM Date: 11/07/24 ? Loc: HO.ED ? Attending Dr: ? Ordering Physician: Gilbert Gandara MD ?? Date of Service: 11/07/24 ?? Procedure(s): CT head/brain wo IV con ?? Accession Number(s): [id number] ? cc: Gilbert Gandara MD; Leta Soto MD ? Report Number: ?? [id number]: Total DLP = ??743.00 mGy-cm ? CLINICAL HISTORY: ams ? CT head without contrast ? Comparison: CT/MT/SR - CT HEAD/BRAIN WO IV CON - [...] in OV> ? 11/07/24 014 ? DD/ 014 ? TD/TT: 11/07/24 014 ? Punch Press Operator: ? Procedure Note Hiral, Image - 11/07/[address] [address] [address] Scan Report Signed Patient: Adelso BeebeMR#: [id number] : 1960cct:[id number] Age/Sex: 63 / MADM Date: 11/07/24 Loc: HO.ED Attending Dr: Ordering Physician: Gilbert Gandara MD Date of Service: 11/07/24 Procedure(s): CT head/brain wo IV con Accession Number(s): [id number] cc: Gilbert Gandara MD; Leta Soto MD Report Number: [id number]: Total DLP = 743.00 mGy-cm CLINICAL HISTORY: ams CT head without contrast Comparison: CT/MT/SR - CT HEAD/BRAIN WO IV CON - [...] This document has been electronically signed by: Eilud Spears MD on 11/07/2024 01:40:42 Dictated By: Eliud Spears MD Signed By: <Electronically signed by Eliud Spears MD in OV> 11/07/24140 DD/ 9 TD/TT: 11/07/24 014 Punch Press Operator: [facility] External Provider IMG CT PROCEDURES Final Result * XR Thoracic Spine 2 Views (11/03/2024 1:05 PM EST) Anatomical Region Laterality Modality Spine, T-spine Radiographic Susy ging 11/03/2024 1:05 PM EST Narrative 11/03/2024 1:07 PM EST ? [facility] [facility] ?[address] ?[place] [address] ?XRay Report ? Signed ? Patient: Godfrey Mcmanus,Adelso ?MR#: [id number] ?? [id number] ? : 1960 ?Acct:[id number] ? Age/Sex: 63 / M ?ADM Date: 10/31/24 ? Loc: HO.XRAY ? Attending Dr: Yajaira Antonio MD ? Ordering Physician: Yajaira Antonio MD ?? Date of Service: 10/31/24 ?? Procedure(s): XR thoracic spine 2V ?? Accession Number(s): [id number] ? cc: Leta Soto MD; Yajaira Antonio [...] DD/ 1305 ? TD/TT: 11/03/24 1305 ? Punch Press Operator: ? Procedure Note Hiral, Image - 11/03/2024 [place] [address] XRay Report Signed Patient: Adelso BeebeMR#: [id number] : 2Acct:[id number] Age/Sex: 63 / MADM Date: 10/31/24 Loc: HOSAMY Attending Dr: Yajaira Antonio MD Ordering Physician: Yajaira Antonio MD Date of Service: 10/31/24 Procedure(s): XR thoracic spine 2V Accession Number(s): [id number] cc: Leta Soto MD; Yajaira Antonio MD [...] 11/03/24 1307 DD/ 1305 TD/TT: 11/03/24 1305 Punch Press Operator: us [facility] External Provider IMG XR PROCEDURES Final Result * XR Lumbar Spine 2-3 Views (11/03/2024 12:26 PM EST) Anatomical Region Laterality Modality Spine, L-spine Radiographic Susy ging 11/03/2024 12:2 6 PM EST Narrative 11/03/2024 12:28 PM EST ? [facility] ?[address] ?[place] [address] ?XRay Report ? Signed ? Patient: GodfreyAdelso Davison ?MR#: [id number] ?? [id number] ? : 1960 ?Acct:[id number] ? Age/Sex: 63 / M ?ADM Date: 10/31/24 ? Loc: HO.XRAY ? Attending Dr: Yajaira Antonio MD ? Ordering Physician: Yajaira Antonio MD ?? Date of Service: 10/31/24 ?? Procedure(s): XR lumbar spine 2-3V ?? Accession Number(s): [id number] ? cc: Leta Soto MD; Yajaira Antonio [...] ? 11/03/247 ? DD/ 1226 ? TD/TT: 11/03/24 1226 ? Punch Press Operator: ? Procedure Note Donotuseinterpreter, Image - 11/03/[address] [address] XRay Report Signed Patient: Yolanda Beebe#: [id number] : 2Acct:[id number] Age/Sex: 63 / MADM Date: 10/31/24 Loc: HO.XRAY Attending Dr: Yajaira Antonio MD Ordering Physician: Yajaira Antonio MD Date of Service: 10/31/24 Procedure(s): XR lumbar spine 2-3V Accession Number(s): [id number] cc: Leta Soto MD; Yajaira Antonio MD [...] 11/03/24 1227 DD/ 1226 TD/TT: 11/03/24 1226 Punch Press Operator: [facility] External Provider IMG XR PROCEDURES Final Result * High Sensitivity Troponin I (10/28/2024 7:29 PM EST) Only the most recent of2 resultswithin the time period is included. TROPONIN I HIGH SENSITIVITY 5.2 <3.5 - 35.0 ng/L [facility] Comment:The Clifford high sens itivity Troponin-I results should beused in conjunction with other diagnostic information suchas ECG, clinical observations and information, and patientsymptoms to aid in the diagnosis of [place]. 10/28/2024 7:29 PM EST 10/28/2024 7:32 PM EST us Generic External Data Provider LAB BLOOD ORDERAB LES Final Result [facility] [address] [place] [address] [phone] * XR Chest 2 Views (10/28/2024 6:02 PM EST) Anatomical Region Laterality Modality Chest Radiographic Susy ging 10/28/2024 6:02 PM EST Narrative 10/28/2024 6:05 PM EST ? [facility] ?[address] ?[place] [address] ?XRay Report ? Signed ? Patient: Godfrey Adelso Mcmanus ?MR#: [id number] ?? [id number] ? : 1960 ?Acct:[id number] ? Age/Sex: 63 / M ?ADM Date: 10/28/24 ? Loc: HO.ED ? Attending Dr: ? Ordering Physician: Venice Morrison CNP ?? Date of Service: 10/28/24 ?? Procedure(s): XR chest 2V ?? Accession Number(s): [id number] ? cc: Venice Morrison CNP; Leta Soto [...] DD/ 1802 ? TD/TT: 10/28/24 1802 ? Punch Press Operator: ? Procedure Note Mehreen Blackman - 10/28/[address] [address] XRay Report Signed Patient: Godfrey Adelso McmanusMR#: [id number] : 2Acct:[id number] Age/Sex: 63 / MADM Date: 10/28/24 Loc: HO.ED Attending Dr: Ordering Physician: Venice Morrison CNP Date of Service: 10/28/24 Procedure(s): XR chest 2V Accession Number(s): [id number] cc: Venice Morrison CNP; Leta Soto MD [...] Roth MD in OV> 10/28/24 180 DD/ 1802 TD/TT: 10/28/24 180 Punch Press Operator: [facility] External Provider IMG XR PROCEDURES Edited Result - Final * IR TIPS insertion (10/15/2024 1:30 PM EST) Anatomical Region Laterality Modality X-Ray Angiograph y 10/15/2024 1:30 PM EST Narrative 10/15/2024 4:32 PM EST ? [facility] ?[address] ?[place] [address] ?Interventional Radiology Rpt ? Signed ? Patient: Godfrey Mcmanus,Adelso ?MR#: [id number] ?? [id number] ? : 1960 ?Acct:[id number] ? Age/Sex: 63 / M ?ADM Date: /29/25 ? Loc: HO.ICU ?252-1 ? Attending Dr: Zana Spear MD ? Ordering Physician: Yajaira Antonio MD ?? Date of Service: 10/15/24 ?? Procedure(s): IR TIPS insertion ?? Accession Number(s): [id number] ? cc: Leta Soto MD; Yajaira Antonio [...] was advanced to the IVC. A 10 Hungarian sheath was placed. ?? A hockey-stick catheter was used to catheterize the right hepatic vein. ?? This was confirmed with venography. The sheath was then advanced into ?? the right hepatic vein. A [employer] TIPS set was then used to gain [...] obtained. An 8 mm x 8 cm White Viatorr TIPS was ?? then deployed from the hepatic vein to the portal vein. The TIPS stent ?? was postdilated with an 8 mm CLINICAL REGISTERED NURSE balloon. Portal venogram demonstrates ?? wide patency [...] DD/ 1330 ? TD/TT: 10/15/24 1625 ? Punch Press Operator: ? Procedure Note Hiral, Image - 10/16/2024 [place] [address] Interventional Radiology Rpt Signed Patient: Adelso BeebeMR#: [id number] : 2Acct:[id number] Age/Sex: 63 / MADM Date: 10/08/24 Loc: .[facility] 252-[address]: Zana Spear MD Ordering Physician: Yajaira Antonio MD Date of Service: 10/15/24 Procedure(s): IR TIPS insertion Accession Number(s): [id number] cc: Leta Soto MD; Yajaira Antonio MD [...] was advanced to the IVC. A 10 Hungarian sheath was placed. A hockey-stick catheter was used to catheterize the right hepatic vein. This was confirmed with venography. The sheath was then advanced into the right hepatic vein. A scorpion TIPS set was then used to gain [...] obtained. An 8 mm x 8 cm White Viatorr TIPS was then deployed from the hepatic vein to the portal vein. The TIPS stent was postdilated with an 8 mm CLINICAL REGISTERED NURSE balloon. Portal venogram demonstrates wide patency of [...] 10/15/24 1630 DD/ 1330 TD/TT: 10/15/24 1625 Punch Press Operator: [facility] External Provider IMG IR PROCEDURES Edited Result - Final * XR Chest 1 View (10/08/2024 9:42 PM EST) Anatomical Region Laterality Modality Chest Radiographic Susy ging 10/08/2024 9:42 PM EST Narrative 10/08/2024 9:43 PM EST ? [facility] ?[address] ?[place] [address] ?XRay Report ? Signed ? Patient: Godfrey Mcmanus,Adelso ?MR#: [id number] ?? [id number] ? : 1960 ?Acct:[id number] ? Age/Sex: 63 / M ?ADM Date: 10/08/24 ? Loc: HO.ED ? Attending Dr: ? Ordering Physician: Bhavana Christensen ?? Date of Service: 10/08/24 ?? Procedure(s): XR chest 1V ?? Accession Number(s): [id number] ? cc: Bhavana Christensen; Leta Soto MD [...] ? DD/ 41 ? TD/TT: 10/08/242141 ? Punch Press Operator: ? Procedure Note Mehreen Blackman - 10/08/[address] [address] XRay Report Signed Patient: Adelso Beebe#: [id number] : 2Acct:[id number] Age/Sex: 63 / MADM Date: 10/08/24 Loc: HO.ED Attending Dr: Ordering Physician: Bhavana Christensen Date of Service: 10/08/24 Procedure(s): XR chest 1V Accession Number(s): [id number] cc: Bhavana Christensen; Leta Soto MD CLINICAL [...] in OV> 10/08/242142 DD/ 41 TD/TT: 10/08/242141 Punch Press Operator: [facility] External Provider IMG XR PROCEDURES Edited Result - Final * Slide Review (09/02/2024 10:55 AM EST) Slide Review VERIFIED [facility] 09/02/2024 10:5 5 AM EST 09/02/2024 10:55 AM EST Generic External Data Provider LAB BLOOD ORDERAB LES Final Result [facility] [address] [place] [phone] * (ABNORMAL) CBC auto differential (09/02/2024 10:55 AM EST) White Blood Count 1.8(L) 4.8 - 10.8 X10*3/uL [facility] Red Blood Count 4.15(L) 4.60 - 5.80 X10*6/uL [facility] Hemoglobin 11.5(L) 14.0 - 18.0 g/dl [facility] Hematocrit 36.4(L) 42.0 - 52.0 % [facility] Mean Corpuscular Volume 87.7 80.0 - 98.0 fL [facility] Mean Corpuscular Hemoglobin 27.7 27.0 - 33.0 pg [facility] Mean Corpuscular HGB Conc 31.6 31.0 - 36.0 g/dl [facility] Red Cell Distribution Width 14.0 11.0 - 16.0 % [facility] Platelet Count 21(L) 160 - 400 X10*3/uL [facility] Mean Platelet Volume TNP 9.4 - 12.4 fL [facility] Neutrophils Percent Auto 68.0 45 - 73 % [facility] Imm Gran Pct Auto 0.0 0.0 - 0.4 % [facility] Lymphocytes Percent Auto 23.9 20 - 40 % [facility] Monocytes Percent Auto 6.0 2 - 11 % [facility] Eosinophils Percent Auto 1.6 0 - 4 % [facility] Basophils Percent Auto 0.5 0 - 2 % [facility] NRBC Pct Auto 0.0 0.0 - 0.2 /100WBC [facility] Neutrophils Absolute Auto 1.3(L) 2.0 - 8.3 x10*3/uL [facility] Imm Gran Abs Auto 0.00 0.00 - 0.03 X10*3/uL [facility] Lymphocytes Absolute Auto 0.4(L) 1.2 - 4.9 X10*3/uL [facility] Monocytes Absolute Auto 0.1 0.1 - 1.2 X10*3/uL [facility] Eosinophils Absolute Auto 0.0 0.0 - 0.4 X10*3/uL [facility] Basophils Absolute Auto 0.0 0.0 - 0.2 X10*3/uL [facility] NRBC Abs Auto 0.000 0.0 - 0.012 X10*3/uL [facility] 09/02/2024 10:5 5 AM EST 09/02/2024 10:55 AM EST us Generic External Data Provider LAB BLOOD ORDERAB LES Edited Result - Final [facility] [address] [place] [phone] * (ABNORMAL) Comprehensive Metabolic Panel (09/02/2024 10:55 AM EST) Pathologist [facility] Sodium 144 135 - 145 mmol/L [facility] Potassium 4.6 3.3 - 5.1 mmol/L [facility] Chloride 112(H) 96 - 108 mmol/L [facility] Carbon Dioxide 26 22 - 29 mmol/L [facility] Anion Gap 11(L) 12 - 20 [facility] Urea Nitrogen (BUN) 12 9 - 16 mg/dL [facility] Creatinine, Serum 0.88 0.5 - 1.4 mg/dL [facility] Estimated Glomerular Filt Rate >60 [facility] Comment:Chronic Kidney Disea se: Estimated GFR < 60 mL/min/1.60q4Bzcmuy Kidney Disease: Estimated GFR < 15 mL/min/1.73m2 Glucose 102 60 - 115 mg/dL [facility] Calcium 9.0 8.4 - 10.2 mg/dL [facility] Bilirubin, Total 1.1(H) 0.0 - 1.0 mg/dL [facility] Aspartate Amino Transferase 41(H) 5 - 37 U/L [facility] Alanine Aminotransferase 27 0 - 40 U/L [facility] Total Protein 7.3 6.5 - 8.0 g/dL [facility] Albumin Level 3.6 3.5 - 5.0 g/dL [facility] Alkaline Phosphatase 117 39 - 117 U/L [facility] 09/02/2024 10:5 5 AM EST 09/02/2024 10:55 AM EST us Generic External Data Provider LAB BLOOD ORDERAB LES Final Result [facility] [address] [place] [phone] * Pheresis Platelets (09/02/2024 10:50 AM EST) Pathologist [facility] Pheresis Platelets [id number] OP PHPLT TRANSFUSED 09/04/24 0934 [id number] OP PHPLT TRANSFUSED 09/04/24 0854 [facility] 09/02/2024 10:5 0 AM EST 09/02/2024 11:08 AM EST us Generic External Data Provider LAB BLOOD BANK TE ST ORDERABLES Final Result [facility] [address] [place] [phone] * Type and screen (09/02/2024 10:50 AM EST) Blood Type ON [facility] Antibody Screen NEGATIVE [facility] 09/02/2024 10:5 0 AM EST 09/02/2024 11:08 AM EST Narrative [facility] - 09/05/2024 6:50 AM EST NURSING:Call Blood Bank (ext. [phone]) to band patient on admission.Type and Screen [...] ST ORDERABLES Final Result Performing Organization Address [facility] [facility]/ZIP Co de Phone Number [facility] [address] [place] [address] [phone] * Lipid Panel, Standard (04/06/2023 10:00 AM EDT) Triglycerides 94 mg/dL [facility] Comment:Desirable Triglyceri de: less than 150 mg/dLBorderline High Triglyceride 150-199 mg/dLHigh Triglyceride: 200-499 mg/dLVery High Triglyceride: greater than or equal to 5OO mg/dL Cholesterol 79 mg/dL [facility] Comment:Desirable Cholestero l: less than 200 mg/dLBorderline High Cholesterol: 200-239 mg/dLHigh Cholesterol: greater than 239 mg/dL LDL Cholesterol Calculated 36 mg/dl [facility] Comment:Desirable LDL: less than 100 mg/dLNear Optimal/Above Optimal LDL: 110- 129 mg/dLBorderline High LDL: 130-159 mg/dLHigh LDL: 160-189 mg/dLVery High LDL: greater than or equal to 190 mg/dL HDL Cholesterol 25 mg/dL [facility] Comment:Desirable HDL: great er than 40 mg/dL Note: This HDL assay may give artificially low results in patients with liver disease. Blood Venous blood specimen / Unknown 04/06/2023 10:00 AM EDT 04/06/2023 11:20 AM EDT [facility] LAB BLOOD ORDERABLES Final Resul t Performing Organization Address City[facility]/ZIP Co de Phone Number [facility] [address] [place] [address] [phone] from Last 3 Months or Most Recently Relevant to Health Maintenance Insurance [facility] C3 HSN FULL Care Teams Band Cutter Relationship Specialty Start Date End Date Leta Soto MD [address] [place] [phone] PCP - General Internal Medicine 04/11/23 Yajaira Antonio [address] [place] [address] [address] [place] [address] Gastroenterology 09/04/24
--- OUTSIDE RECORDS SUMMARY | 2024-11-17 15:43 | XMS_ITS | Encounter Summary ---
Author Organization [employer] Address [address] [facility] 7 [place] [address] Care Team Providers Care Real Time Operator Name Role Phone Leta Soto MD Primary Care Pro vider PacoYajaira Unavailable Reason for Visit * Reason Onset Date Comments Lab Orders 11/14/2024 Encounter Details Date Type Department Care Team (Late st Contact Info) Description 11/14/[address] 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 * Addendum Note - Bridger Cosby RN - 11/17/2024 10:07 AM EDTAddended by: BRIDGER COSBY on: 11/17/2024 10:07 AM Modules accepted: Orders * Telephone Encounter - Bridger Cosby RN - 11/17/2024 10:00 AM EDT Last Tspot done 05/2023. Ordered lab per standing orders. Called pt to inform, no answer at main number, left voicemail. Other number on file for CHD and family but no one on HIPAA form. Pt to call back clinic PRN. * Telephone Encounter - Elisa Liriano - 11/14/2024 3:24 PM EST Patient walked in requesting TB test for Program. documented in this encounter Plan of Treatment Upcoming Encounters Date Type Department Care Team (Late st Contact Info) Description 11/24/2024 9:00 AM EDT Office Visit [facility] [address] [place] [phone] Ysabel Omer MD [address] [place] [phone] 01/07/2025 10:45 AM EDT Office Visit [facility] [address] [place] [phone] Leta Forte MD [address] [place] [phone] Scheduled Orders Name Type Priority Associated Diagnoses Orde r Schedule T-SPOT??.TB Lab Routine Tuberculosis screening Expected: 11/17/2024 (Approximate), Expires: 11/17/2025 documented as of this encounter Goals Goal Patient Goal Type Associated Problems Recent Progress Patient-Stated? Author Blood Pressure < 140/90 Blood Pressure 149/78(2023 1:02 PM EST) No Loan [employer]bot Record your blood pressure once per day Blood Pressure No [employer] documented as of this encounter Visit Diagnoses Diagnosis Tuberculosis screening Screening examination for pulmonary tuberculosis documented in this encounter Additional Health Concerns Assessment Noted Time PHQ-9 Depression Total Score: 18 023 11:23 AM EDT documented as of this encounter Care Teams Real Time Operator Relationship Specialty Start Date End Date Leta Soto MD [address] [place] [phone] PCP - General Internal Medicine 04/11/23 Yajaira Antonio [address] [place] [address] Drive 3rd [place] [address] Gastroenterology 09/04/24 documented as of this encounter
--- OUTSIDE RECORDS SUMMARY | 2024-11-17 15:43 | XMS_ITS | Encounter Summary ---
Author Organization [employer] Address 75 [facility] 7 [place] [address] Care Team Providers Care Order Entry Specialist Name Role Phone Leta Soto MD Primary Care Pro vider PacoYajaira Unavailable Reason for Visit * Reason Comments Med Refill Encounter Details Date Type Department Care Team (Late st Contact Info) Description 10/28/2024 Refill [facility] [address] [place] [address] Leta Soto MD [address] [place], [place] [phone] Social History Tobacco Use Types Packs/Day Years [...] the past 12 months, has t he [employer], gas, oil or water company threatened to [...] Office Visit [facility] [address] [place] [phone] Ysabel Omer MD [address] [place] [phone] 01/07/2025 10:45 AM EDT Office Visit [facility] [address] [place] [phone] Leta Forte MD [address] [place] [phone] documented as of this encounter Goals Goal Patient Goal Type Associated Problems Recent Progress Patient-Stated? Author Blood Pressure < 140/90 Blood Pressure 149/78(2023 1:02 PM EST) Loan [employer] Record your blood pressure once per day Blood Pressure [employer] documented as of this encounter Visit Diagnoses Not on filedocumented in this encounter Additional Health Concerns Assessment Noted Time PHQ-9 Depression Total Score: 18 07/31/ 023 11:23 AM EDT documented as of this encounter Care Teams Order Entry Specialist Relationship Specialty Start Date End Date Leta Soto MD [address] [place] [phone] PCP - General Internal Medicine 04/11/23 Yajaira Antonio [address] [place] [address] Drive 3rd [place] [address] Gastroenterology 09/04/24 documented as of this encounter
--- OUTSIDE RECORDS SUMMARY | 2024-11-17 15:43 | XMS_ITS | Encounter Summary ---
Author Organization [employer] Address 75 [facility] 7t [place] [address] Care Team Providers Care [employer] History Teacher Name Role Phone Leta Soto MD Primary [...] Description 11/24/2024 9:00 AM EDT Office Visit [facility] [address] [place] [address] Ysabel Omer MD [address] [place] [address] 01/07/2025 10:45 AM EDT Office Visit [facility] [address] [place] [address] Leta Forte MD [address] [place], [place] [phone] documented as of this encounter Goals Goal [...] EST Narrative 10/28/2024 9:10 PM EST ? [facility] ?[address] ?[place] [address] ? CT Scan Report ? Signed ? Patient: Godfrey Mcmanus,Adelso ?MR#: [id number] ?? [id number] ? : 1960 ?Acct:[id number] ? Age/Sex: 63 / M ?ADM Date: 10/28/24 ? Loc: HO.ED ? Attending Dr: ? Ordering Physician: Venice Morrison CNP ?? Date of Service: 10/28/24 ?? Procedure(s): CT abdomen pelvis w IV con ?? Accession Number(s): [id number] ? cc: Venice Morrison CNP; Leta Soto MD ? Report Number: ?? [id number]: Total DLP = ??687.00 mGy-cm ? CLINICAL [...] fat and recanalized small umbilical vein. ?? Lryl-oq-qpopwskr colonic stool and moderate rectal stool. ?? [...] portal vein and splenic vein. ?? 3. Ysgq-hq-ngbifgjl colonic stool and moderate rectal stool. ?? 4. Additional stable findings as described. ? This document has been electronically signed by: Daphne Jensen MD on ?? 10/28/2024 21:08:32 ? Dictated By: ?Daphne Jensen MD ? Signed By: ?<Electronically signed by Daphne Jensen MD in OV> ? 10/28/242108 ? DD/ 07 ? TD/TT: 10/28/242107 ? Manager Oracle: ? Procedure Note Donmaritzainterpreter, Image - 10/28/[address] [place] [id number] [address] Scan Report Signed Patient: Adelso BeebeMR#: [id number] : 2Acct:[id number] Age/Sex: 63 / MADM Date: 10/28/24 Loc: HO.ED Attending Dr: Ordering Physician: Venice Morrison CNP Date of Service: 10/28/24 Procedure(s): CT abdomen pelvis w IV con Accession Number(s): [id number] cc: Venice Morrison CNP; Leta Soto MD Report Number: [id number]: Total DLP = 687.00 mGy-cm CLINICAL HISTORY: [...] hernia containing fat and recanalized small umbilicalvein. Rkgq-fo-imnorbde colonic stool and moderate rectal stool. Prostate [...] of portal vein and splenic vein. 3. Ndzd-xj-tbingixh colonic stool and moderate rectal stool. 4. Additional stable findings as described. This document has been electronically signed by: Daphne Jensen MD on 10/28/2024 21:08:32 Dictated By: Daphne Jensen MD Signed By: <Electronically signed by Daphne Jensen MD in OV> 10/28/242108 DD/ 07 TD/TT: 10/28/242107 Manager Oracle: [facility] External Provider IMG CT PROCEDURES Edited Result - Final * High Sensitivity Troponin I (10/28/2024 7:29 PM EST) TROPONIN I HIGH SENSITIVITY 5.2 <3.5 - 35.0 ng/L [facility] Comment:The Clifford high sens itivity Troponin-I results should beused in conjunction with other diagnostic information suchas ECG, clinical observations and information, and patientsymptoms to aid in the diagnosis of UT. 10/28/2024 7:29 PM EST 10/28/2024 7:32 PM EST Generic External Data Provider LAB BLOOD ORDERAB LES Final Result [facility] [address] [place] [phone] documented in this encounter Visit Diagnoses Not on filedocumented in this encounter Additional Health Concerns Assessment Noted Time PHQ-9 Depression Total Score: 18 07 023 11:23 AM EDT documented as of this encounter Care Teams [employer] History Teacher Relationship Specialty Start Date End Date Leta Soto MD [address] [place] [phone] PCP - General Internal Medicine 04/11/23 Yajaira Antonio [address] [place] [address] Drive 3rd [place] [address] Gastroenterology 09/04/24 documented as of this encounter
[2024-11-17 16:24] LABS: Hematocrit 30.7 % (42.0-52.0); Hemoglobin 10.4 g/dl (14.0-18.0); Mean Corpuscular HGB Conc 33.9 g/dl (31.0-36.0); Mean Corpuscular Hemoglobin 29.2 pg (27.0-33.0); Mean Corpuscular Volume 86.2 fL (80.0-98.0); Platelet Count 22 X10*3/uL (160-400); Red Blood Count 3.56 X10*6/uL (4.60-5.80); Red Cell Distribution Width 17.4 % (11.0-16.0); White Blood Count 2.4 X10*3/uL (4.8-10.8)
[2024-11-17 17:05] LABS: Alanine Aminotransferase 43 U/L (0-40); Albumin Level 2.9 g/dL (3.5-5.0); Alkaline Phosphatase 151 U/L (39-117); Anion Gap 9 (12-20); Aspartate Amino Transferase 63 U/L (5-37); Bilirubin Total 1.6 mg/dL (0.0-1.0); Blood Urea Nitrogen 11 mg/dL (9-16); Calcium 8.3 mg/dL (8.4-10.2); Carbon Dioxide 26 mmol/L (22-29); Chloride 115 mmol/L (96-108); Estimated Glomerular Filt Rate > 60; Glucose Random 98 mg/dL (60-115); Potassium 4.8 mmol/L (3.3-5.1); Sodium 145 mmol/L (135-145); Total Protein 6.5 g/dL (6.5-8.0)
[2024-11-17 17:21] LABS: Ferritin 52 ng/mL (20-250); SLIDE REVIEW MANUAL DIFF
[2024-11-17 17:29] LABS: Eosinophils Percent Manual 1 % (0-4); Lymphocytes Absolute Manual 0.6 X10*3/uL (1.2-4.9); Lymphocytes Percent Manual 23 % (20-40); Monocytes Absolute Manual 0.3 X10*3/uL (0.1-1.2); Monocytes Percent Manual 11 % (2-11); Neutrophils Percent Manual 65 % (45-73)
[2024-11-17 17:30] LABS: Ovalocytes 1+ (5-14) /OIF; RBC Morphology NOTED
[2024-11-17 17:36] LABS: Band Neutrophils Percent 0 % (3-5); Neutrophils Absolute Manual 1.6 X10*3/uL (2.0-8.3); Platelet Estimate NORMAL (NORMAL); Platelet Morphology Comment NORMAL
[2024-11-19 23:54] LABS: TS Negative Control Passed; TS Panel A 0; TS Panel B 0; TS Positive Control Passed; TSpotTB Negative (Negative)
== END 2024-11-17 13:52 | disposition home or self-care (01) ==
LOC: HO.HHCL 13:51
PROVIDERS: Internal Medicine Medical Oncology; Visit Provider Student in an Organized Health Care Education/Training Program
DX: D61.818 Other pancytopenia (principal); Z11.1 Encounter for screening for respiratory tuberculosis
CPT/HCPCS: 36415; 80053; 82728; 85007; 85025; 85027; 86481

== ENCOUNTER 2024-11-24 14:28 | Outpatient (REF) | payer MEDICAID, SELFPAY ==
[2024-11-24 16:41] LABS: Basophils Percent Auto 0.5 % (0-2); Hematocrit 32.3 % (42.0-52.0); Hemoglobin 10.5 g/dl (14.0-18.0); Imm Gran Abs Auto 0.01 X10*3/uL (0.00-0.03); Imm Gran Pct Auto 0.5 % (0.0-0.4); Lymphocytes Absolute Auto 0.7 X10*3/uL (1.2-4.9); Lymphocytes Percent Auto 32.7 % (20-40); MANUAL DIFF FLAG SCAN; Mean Corpuscular HGB Conc 32.5 g/dl (31.0-36.0); Mean Corpuscular Hemoglobin 28.9 pg (27.0-33.0); Mean Platelet Volume 11.8 fL (9.4-12.4); Monocytes Absolute Auto 0.2 X10*3/uL (0.1-1.2); Neutrophils Absolute Auto 1.1 x10*3/uL (2.0-8.3); Neutrophils Percent Auto 56.3 % (45-73); Red Blood Count 3.63 X10*6/uL (4.60-5.80); Red Cell Distribution Width 17.8 % (11.0-16.0); SCAN SMEAR FLAG 1
[2024-11-24 16:42] LABS: Platelet Count 24 X10*3/uL (160-400)
[2024-11-24 16:58] LABS: Alanine Aminotransferase 31 U/L (0-40); Alkaline Phosphatase 145 U/L (39-117); Anion Gap 8 (12-20); Aspartate Amino Transferase 48 U/L (5-37); Bilirubin Total 1.6 mg/dL (0.0-1.0); Blood Urea Nitrogen 12 mg/dL (9-16); Calcium 8.4 mg/dL (8.4-10.2); Carbon Dioxide 25 mmol/L (22-29); Chloride 116 mmol/L (96-108); Estimated Glomerular Filt Rate > 60; Glucose Random 99 mg/dL (60-115); Potassium 4.9 mmol/L (3.3-5.1); Sodium 144 mmol/L (135-145); Total Protein 6.7 g/dL (6.5-8.0)
[2024-11-24 19:45] LABS: SLIDE REVIEW VERIFIED
== END 2024-11-24 14:29 | disposition home or self-care (01) ==
LOC: HO.HHCL 14:28
PROVIDERS: Visit Provider Registered Nurse
DX: D61.818 Other pancytopenia (principal)
CPT/HCPCS: 36415; 80053; 85025

== ENCOUNTER 2024-12-02 21:54 | Inpatient (IN) | payer MEDICAID, SELFPAY ==
--- NOTE | ~2024-12-02 | US_ITS ---
CLINICAL HISTORY: Leg edema, Rule out DVT VENOUS DUPLEX ULTRASOUND BILATERAL LOWER EXTREMITY Comparison: None Findings: The visualized deep veins are fully compressible with normal Doppler color flow and spectral tracings. No popliteal cyst. There is subcutaneous edema in the right calf. IMPRESSION: 1. Negative for bilateral lower extremity deep vein thrombosis. This document has been electronically signed by: Siri Hwang DO on 12/03/2024 16:40:35
--- NOTE | ~2024-12-02 | CT_ITS ---
CLINICAL HISTORY: Eval for PV thrombus, spleen size, liver protocol CT ABDOMEN AND PELVIS WITH AND WITHOUT CONTRAST Comparison: CT - CT ABDOMEN PELVIS WO/W IV CON - 12/03/24 17:[address]/SR - CT ABDOMEN PELVIS W IV CON - 11/07/24 01:49 EST Findings: Tiny left pleural effusion. Bilateral lower lobe atelectasis. Bilateral lower lobe septal thickening. The spleen measures 20 cm AP x 19 cm in length compared with 20 x 17 cm on prior study. Redemonstration of eccentric thrombus in the main portal vein that extends to the splenoportal confluence and is exclusive of the TIPS shunt. Again seen is cirrhotic liver morphology. No large calcified gallstone. No peripancreatic edema or abnormal pancreatic enhancement. Normal adrenal glands. No hydronephrosis or urolithiasis. There is a small right renal cyst. Atherosclerotic changes in the abdominal aorta. No AAA. Multiple subcentimeter periportal and peripancreatic lymph nodes. No bowel obstruction, pneumoperitoneum, or pneumatosis. Thick-walled distal esophagus with small adjacent varices, unchanged. Mild mesenteric edema. No ascites. Small fat containing umbilical hernia. Colonic diverticulosis. No acute diverticulitis. The appendix is identified. No acute appendicitis. Stable mild prostatomegaly. The bones are intact. IMPRESSION: 1. Stable nonocclusive thrombus in the main portal vein inclusive of the splenoportal confluence. Grossly patent TIPS shunt. 2. Stable splenomegaly. 3. Cirrhotic liver morphology. No ascites. 4. No obstructive or acute inflammatory changes in the gastrointestinal and genitourinary tracts. 5. Diverticulosis coli. 6. Tiny left pleural effusion. Bilateral lower lobe septal thickening secondary to inflammation /infection or fluid overload. This document has been electronically signed by: Siri Hwang DO on 12/03/2024 18:53:55
--- NOTE | 2024-12-02 22:01 | ECG_ITS ---
Test Reason : WEAKNESS Blood Pressure : */* mmHG Vent. Rate : 78 BPM Atrial Rate : 78 BPM P-R Int : 140 ms QRS Dur : 80 ms QT Int : 386 ms P-R-T Axes : 40 18 55 degrees QTcB Int : 440 ms Normal sinus rhythm Normal ECG When compared with ECG of 12-Nov-2024 16:16, No significant change was found Referred By: Generic ED Physician Electronically Signed By: POP DAVIES MD
[2024-12-02 22:12] VITALS: BP 142/74; BP 192/80; PULSE 82; PULSE 85; RESP 16; TEMP 36.9; O2SAT 99; BMI 34.0
--- NOTE | 2024-12-02 22:43 | PC.NURSE ---
Patient BIBA from home with sudden onset abdominal pain and dizziness. PMH of cirrhosis. Nose bleed prior to arrival with a scant amount of blood.Patient changed into a hospital attire, EKG completed and reviewed by Dr. Rome. Labs drawn, nasal swab obtained. Patient placed on monitor car operator, hr 80-90, NSR. Patient resting on stretcher bed in no apparent distress. Call gorman placed within patient's reach. Plan of care ongoing.
[2024-12-02 22:51] LABS: Eosinophils Percent Auto 1.3 % (0-4); Hematocrit 28.3 % (42.0-52.0); Hemoglobin 9.8 g/dl (14.0-18.0); Imm Gran Abs Auto 0.01 X10*3/uL (0.00-0.03); Imm Gran Pct Auto 0.6 % (0.0-0.4); Lymphocytes Absolute Auto 0.5 X10*3/uL (1.2-4.9); Lymphocytes Percent Auto 31.8 % (20-40); MANUAL DIFF FLAG SCAN; Mean Corpuscular HGB Conc 34.6 g/dl (31.0-36.0); Mean Corpuscular Hemoglobin 29.3 pg (27.0-33.0); Mean Corpuscular Volume 84.5 fL (80.0-98.0); Mean Platelet Volume 11.5 fL (9.4-12.4); Monocytes Absolute Auto 0.2 X10*3/uL (0.1-1.2); Monocytes Percent Auto 9.7 % (2-11); Neutrophils Absolute Auto 0.9 x10*3/uL (2.0-8.3); Neutrophils Percent Auto 56.6 % (45-73); Red Blood Count 3.35 X10*6/uL (4.60-5.80); Red Cell Distribution Width 16.7 % (11.0-16.0); SCAN SMEAR FLAG 1
--- NOTE | 2024-12-02 22:53 | ED.DIZZY ---
HPI - Dizziness General Chief Complaint: Dizziness Stated Complaint: weakness,nose bleed (resolved) Time Seen by Provider: 12/02/24 22:08 Source: patient and EMS Mode of arrival: EMS Limitations: no limitations History of Present Illness ED Provider: Dr. Nona Rome HPI Narrative: Patient comes to the emergency room complaining of weakness. Patient states that earlier today he had a bit of epigastric pain but now has resolved. Also, earlier today the patient had an episode of epistaxis which resolved as well. Patient states that earlier today he was feeling very weak, he was able to lower himself to the ground, sit down in pharynx called the ambulance. Patient denies any loss of consciousness, denies chest pain or shortness of breath. Patient denies any nausea or vomiting. Patient states that he has been compliant with his medications for cirrhosis. Related Data Previous Rx's ?Medication ?Instructions ?Recorded lactulose 10 gram/15 mL oral 20 g (30 mL) PO TID #3,000 mL 11/11/24 solution carvedilol 3.125 mg tablet 3.125 mg PO BID #60 tabs 11/24/24 Allergies Allergy/AdvReac Type Severity Reaction Status Date / Time dicyclomine [From Bentyl] Allergy Unknown Verified 12/02/24 22:15 aspirin AdvReac Severe stomach Verified 12/02/24 22:15 bleeding NSAIDS (Non-Steroidal AdvReac Severe liver Verified 12/02/24 22:15 Anti-Inflamma concerns Review of Systems Review of Systems: Constitutional : No Weight loss, No Fever, No Chills, No Night Sweats, complaining of fatigue and weakness, not feeling like himself ENT/Mouth : No Hearing loss, No Ear Pain, No Nasal Congestion, No Sinus Pain, No Hoarseness, No sore throat, No Rhinorrhea, No Swallowing Difficulty Eyes: No Eye Pain, No Swelling, No Redness, No Foreign Body, No Discharge, No Vision Changes Cardiovascular : No Chest Pain, No SOB, No Dyspnea on Exertion, No Orthopnea, No Edema, No Palpitations Respiratory : No Cough, No Sputum, No Wheezing, No Smoke Exposure, No Dyspnea Gastrointestinal : No Nausea, No Vomiting, No Diarrhea, No Constipation, complaining of abdominal pain which self-resolved Genitourinary : no irregular bleeding, No Dysuria, No Urinary Frequency, No Hematuria, No Urinary Incontinence, No Urgency, No Flank Pain, No Urinary Flow Changes, No Hesitancy Musculoskeletal : No joint pain, No Myalgias, No Joint Swelling Skin : No Skin Lesions, No rash Neuro : No Weakness, No Numbness, No Paresthesias, No Loss of Consciousness, No Dizziness, No Headache Psych : No Anxiety/Panic, No Depression, No SI/HI/AH/VH, No Social Issues, Heme/Lymph: No Bruising, No Bleeding,No Lymphadenopathy Endocrine : No Polyuria, No Polydipsia, No Temperature Intolerance [facility] Past Medical History Medical History Hepatic encephalopathy Portal vein thrombosis Cirrhosis Splenic vein thrombosis Sepsis Cirrhosis of liver with ascites Abdominal pain Thrombocytopenia Pancytopenia Cirrhosis Hepatitis C virus infection Esophageal varices Pancytopenia Iron deficiency anemia Cirrhosis Hepatitis C HBP (high blood pressure) Surgical History S/P TIPS (transjugular intrahepatic portosystemic shunt) H/O left inguinal hernia repair H/O eye surgery History of esophagogastroduodenoscopy (EGD) H/O colonoscopy Family History Family History Maternal Grandmother Breast CA Uterus cancer Mother Primary lung cancer of unknown cell type Social History Social History Household Members: None Household Members Other:: [employer] Housing: Other Housing Other:: [employer] Are you a primary physician primary care sports medicine to a significant other at home: No Do you presently have visiting nurse or other home services: No Comment: pt refusing alarm's Patient Tobacco Use Status: Never used Tobacco Tobacco use type: Cigarette Cigarette Packs Per Day: 1 Cigarettes Per Day: 5 Years Smoked: 30 Second Hand Smoke Exposure: No Substance Use Type: Crack/Cocaine and Marijuana Advance Directives: Yes Advance Directives on File: Yes Advance Directives Date on File: 04/02/24 Nutrition Risks: No Nutritional Risk service: No Current occupational status: retired Physical Exam Vital Signs: Vital Signs: Last Vital Signs Temp 98.9 F 12/03/24 04:16 Pulse 72 12/03/24 06:08 Resp 15 12/03/24 06:08 BP 141/68 H 12/03/24 06:08 Pulse Ox 96 12/03/24 06:08 O2 Del Method Room Air 12/03/24 06:08 BMI result Body Mass Index 34.0 Const: Other: Appearance: Alert. Oriented X3. No acute distress. Eyes: Pupils equal, round and reactive to light. ENT: Pharynx normal. Neck: Normal inspection. Neck supple. No lymph nodes noted. No crepitus CVS: Normal heart rate and rhythm. Pulses normal. Normal S1 and S2 Respiratory: No respiratory distress. Breath sounds normal. No Wheezing. No rales Abdomen: Soft , no significant pain to palpation in the abdomen, mild discomfort in the epigastric area, no rebound or guarding Skin: Skin warm and dry. Normal skin color. Normal skin turgor. Extremities: No lower extremity edema. No Lacerations. No Rash Neuro: Oriented X 3. No motor deficit. No sensory deficit. Moving all extremities. No slurred speech. CN 2 through 12 grossly intact Psych: calm, cooperative, normal affect Course Course Course Narrative: All of patient's labs and imaging pending Patient's vitals stable Medications Administered Generic Name Dose Route Start Last Admin Trade Name Freq PRN Reason Stop Dose Admin Ceftriaxone Sodium 2 gm 12/03/24 06:30 12/03/24 06:39 Ceftriaxone Sodium 2 Gm Vial IVPUSH 2 gm Q24H LALI Administration Pantoprazole Sodium 40 mg 12/03/24 06:30 12/03/24 06:38 Pantoprazole Sodium 40 Mg/10 Ml Vial IVPUSH 40 mg BID@0630,1630 LALI Administration Discontinued Medications Generic Name Dose Route Start Last Admin Trade Name Freq PRN Reason Stop Dose Admin Lactulose 30 gm 12/02/24 23:13 12/02/24 23:39 Lactulose 20 Gm/30 Ml Solution PO 12/02/24 23:14 30 gm ONCE ONE Administration Lactulose 30 gm 12/03/24 03:00 12/03/24 04:12 Lactulose 20 Gm/30 Ml Solution PO 12/03/24 03:01 30 gm ONCE ONE Administration Octreotide Acetate 50 mcg 12/03/24 06:22 12/03/24 06:39 Octreotide Acetate 100 Mcg/Ml Ampul IVPUSH 12/03/24 06:23 50 mcg ONCE ONE Administration Medical Decision Making Medical Decision Making [facility] Narrative: My interpretation of labs: Patient's hematology and chemistry at baseline. Chronically elevated LFTs. Patient's ammonia is 219. Patient states that he has been taking at home his lactulose as prescribed Bedside ultrasound: No ascites present. No pain in any of the abdominal quadrants including epigastric area when I press with a probe , SBP not suspected Patient received p.o. lactulose here in the emergency room. Differential Diagnosis Differential Diagnoses: The differential diagnosis associated with the presentation includes (Alcohol intoxication, hepatic encephalopathy) Admission/Observation Consideration of admission/observation: Escalation of care including admission/observation considered Consult Healthcare Provider Management of the patient was discussed with: Hospitalist Lab Data [facility] Lab Attestation statement: I reviewed the patient's lab results. 12/03/24 05:18 12/03/24 05:18 Labs: Lab Results 12/02/24 Range/Units 22:40 WBC 1.5 L (4.8-10.8) X10*3/uL RBC 3.35 L (4.60-5.80) X10*6/uL Hgb 9.8 L (14.0-18.0) g/dl Hct 28.3 L (42.0-52.0) % MCV 84.5 (80.0-98.0) fL MCH 29.3 (27.0-33.0) pg MCHC 34.6 (31.0-36.0) g/dl RDW 16.7 H (11.0-16.0) % Plt Count 21 L (160-400) X10*3/uL MPV 11.5 (9.4-12.4) fL Immature Gran % (Auto) 0.6 H (0.0-0.4) % Neut % (Auto) 56.6 (45-73) % Lymph % (Auto) 31.8 (20-40) % Walton % (Auto) 9.7 (2-11) % Eos % (Auto) 1.3 (0-4) % Baso % (Auto) 0.0 (0-2) % Lymph # (Auto) 0.5 L (1.2-4.9) X10*3/uL Walton # (Auto) 0.2 (0.1-1.2) X10*3/uL Eos # (Auto) 0.0 (0.0-0.4) X10*3/uL Baso # (Auto) 0.0 (0.0-0.2) X10*3/uL Abs Immat Gran (auto) 0.01 (0.00-0.03) X10*3/uL Absolute Neuts (auto) 0.9 L (2.0-8.3) x10*3/uL Absolute Nucleated RBC 0.000 (0.0-0.012) X10*3/uL Nucleated RBC % (auto) 0.0 (0.0-0.2) /100WBC Smear Tech's Comments VERIFIED PT 16.4 H (10.9-12.4) SEC INR 1.4 H (0.9-1.1) Sodium 143 (135-145) mmol/L Potassium 4.2 (3.3-5.1) mmol/L Chloride 117 H (96-108) mmol/L Carbon Dioxide 21 L (22-29) mmol/L Anion Gap 9 L (12-20) BUN 12 (9-16) mg/dL Creatinine 0.75 (0.5-1.4) mg/dL Estim Creat Clear Calc 116.4 Estimated GFR > 60 Random Glucose 99 (60-115) mg/dL Calcium 8.4 (8.4-10.2) mg/dL Magnesium 2.0 (1.6-2.6) mg/dL Total Bilirubin 1.6 H (0.0-1.0) mg/dL Direct Bilirubin 0.6 H (0.0-0.5) mg/dL AST 49 H (5-37) U/L ALT 32 (0-40) U/L Alkaline Phosphatase 141 H (39-117) U/L Ammonia 219 H (13-55) umol/L Troponin I High Sens 18.0 (<3.5-35.0) ng/L B-Natriuretic Peptide 102 H (<100) pg/mL Total Protein 6.3 L (6.5-8.0) g/dL Albumin 2.9 L (3.5-5.0) g/dL Ethyl Alcohol < 10 mg/dL Influenza Type A (PCR) NEGATIVE (Negative) Influenza Type B (PCR) NEGATIVE (Negative) RSV RNA Qual (PCR) NEGATIVE (Negative) SARS-CoV-2 RNA (RT-PCR) NEGATIVE (Negative) Critical Care Time Critical Care Time Critical Care Time: Yes Total Critical Care Time: 60 Attestation: I have personally provided critical care time. Time includes review of lab data, radiology results, discussion with consultants, and monitoring for potential decompensation. Intervention performed as documented. Discharge Plan Discharge Clinical Impression: Acute hepatic encephalopathy, Hyperammonemia Patient Disposition: Admitted As Inpatient
[2024-12-02 23:01] LABS: Ammonia 219 umol/L (13-55)
[2024-12-02 23:08] LABS: INTERNATIONAL NORM RATIO 1.4 (0.9-1.1); Prothrombin Time 16.4 SEC (10.9-12.4)
[2024-12-02 23:09] LABS: Alanine Aminotransferase 32 U/L (0-40); Albumin Level 2.9 g/dL (3.5-5.0); Alkaline Phosphatase 141 U/L (39-117); Anion Gap 9 (12-20); Aspartate Amino Transferase 49 U/L (5-37); Bilirubin Direct 0.6 mg/dL (0.0-0.5); Bilirubin Total 1.6 mg/dL (0.0-1.0); Blood Urea Nitrogen 12 mg/dL (9-16); Calcium 8.4 mg/dL (8.4-10.2); Carbon Dioxide 21 mmol/L (22-29); Chloride 117 mmol/L (96-108); Creatinine Clr Calc Pharmacy 116.4; Estimated Glomerular Filt Rate > 60; Ethanol < 10 mg/dL; Glucose Random 99 mg/dL (60-115); Potassium 4.2 mmol/L (3.3-5.1); Sodium 143 mmol/L (135-145); Total Protein 6.3 g/dL (6.5-8.0)
[2024-12-02 23:12] LABS: B Type Natriuretic Peptide 102 pg/mL (<100)
[2024-12-02 23:17] LABS: Platelet Count 21 X10*3/uL (160-400); White Blood Count 1.5 X10*3/uL (4.8-10.8)
[2024-12-02] MEDS: Lactulose 20 GM/30 ML SOLUTION 30 GM PO (23:39)
--- NOTE | 2024-12-02 23:44 | PC.NURSE ---
Patient medicated per MAR, currently offers no complaints, call gorman in patient's reach, patient's cousin at bedside.
[2024-12-02 23:45] LABS: SLIDE REVIEW VERIFIED
[2024-12-02 23:51] LABS: Influenza A PCR NEGATIVE (Negative); Influenza B PCR NEGATIVE (Negative); Resp Syncy Virus RNA Qual PCR NEGATIVE (Negative); SARS COV2 PCR INHOUSE NEGATIVE (Negative)
[2024-12-03] VITALS (8 sets, daily range): BP systolic 116–160; BP diastolic 54–70; PULSE 69–80; RESP 15–157; TEMP 36.7–37.2; O2SAT 96–100
[2024-12-03] MEDS: Lactulose 20 GM/30 ML SOLUTION 30 GM PO ×3 (04:12→20:20)
[2024-12-03 05:52] LABS: Eosinophils Percent Auto 1.7 % (0-4); MANUAL DIFF FLAG SCAN; SCAN SMEAR FLAG 1
[2024-12-03 05:54] LABS: Hematocrit 29.2 % (42.0-52.0); Hemoglobin 9.9 g/dl (14.0-18.0); Lymphocytes Absolute Auto 0.5 X10*3/uL (1.2-4.9); Lymphocytes Percent Auto 38.1 % (20-40); Mean Corpuscular HGB Conc 33.9 g/dl (31.0-36.0); Mean Corpuscular Hemoglobin 28.7 pg (27.0-33.0); Mean Corpuscular Volume 84.6 fL (80.0-98.0); Monocytes Absolute Auto 0.2 X10*3/uL (0.1-1.2); Monocytes Percent Auto 13.6 % (2-11); Neutrophils Absolute Auto 0.6 x10*3/uL (2.0-8.3); Neutrophils Percent Auto 46.6 % (45-73); Red Blood Count 3.45 X10*6/uL (4.60-5.80); Red Cell Distribution Width 16.7 % (11.0-16.0)
[2024-12-03 05:56] LABS: PLT ABN DIST 1; Platelet Count 24 X10*3/uL (160-400); White Blood Count 1.2 X10*3/uL (4.8-10.8)
[2024-12-03 06:01] LABS: Ammonia 157 umol/L (13-55)
[2024-12-03 06:12] LABS: Alanine Aminotransferase 29 U/L (0-40); Albumin Level 2.7 g/dL (3.5-5.0); Alkaline Phosphatase 120 U/L (39-117); Anion Gap 8 (12-20); Aspartate Amino Transferase 60 U/L (5-37); Bilirubin Total 1.6 mg/dL (0.0-1.0); Blood Urea Nitrogen 11 mg/dL (9-16); Calcium 8.5 mg/dL (8.4-10.2); Carbon Dioxide 20 mmol/L (22-29); Chloride 118 mmol/L (96-108); Creatinine Clr Calc Pharmacy 124.7; Estimated Glomerular Filt Rate > 60; Glucose Random 99 mg/dL (60-115); Potassium 4.3 mmol/L (3.3-5.1); Sodium 142 mmol/L (135-145)
--- NOTE | 2024-12-03 06:22 | P.HPHOSP_ITS ---
History of Present Illness Date of Service: 12/03/24 Attending physician on admission: Lc Cohn Chief Complaint: confusion, epigastric pain Patient is a 64-year-old male with a past medical history significant for cirrhosis s/p TIPS, hx hep C, portal and spenic vein thrombosis, chornic thrombocytopenia and HTN, who presented to the ED due to dizziness, confusion, and epigastric pain. Additionally the patient reported to the ED provider that the epigastric pain had resolved however he states it is still present when I examined him. He also reports melena for the past few days. He reports he has been taking his lactulose 3 times a day as prescribed. He denies any nausea or vomiting. He did have a nosebleed just prior to arrival. He denies any chest pain, shortness of breath, urinary symptoms, or upper respiratory symptoms. He reports he is scheduled for an outpatient endoscopy soon. Review of Systems 2 Constitutional: Constitutional: Denies body ache(s), Denies chills, Denies fatigue, Denies fever(s) and Denies headache(s) Eyes: Eyes: Denies change in vision and Denies photophobia ENT: Denies headache(s), Denies nasal congestion, Denies nasal discharge and Denies sore throat Cardiovascular: Cardiovascular: Denies chest pain, Denies rapid heart rate, Denies leg edema, Denies lightheadedness and Denies dyspnea Respiratory: Respiratory: Denies chest congestion, Denies cough, Denies dyspnea and Denies wheezing Gastrointestinal: Gastrointestinal: Reports melena, Denies hematochezia, Denies coffee ground emesis, Denies diarrhea, Denies nausea, Denies vomiting and Denies hematemesis Genitourinary: Genitourinary: Denies difficulty urinating, Denies dysuria and Denies urinary urgency Musculoskeletal: Musculoskeletal: Denies back pain Integumentary/Breasts: Skin/Breast: Denies rash Neurologic: Reports confusion and Denies headache(s) Psychiatric: Psychiatric: Reports confusion Endocrine: Endocrine: Denies fatigue Hematologic/Lymphatic: Hematologic/Lymphatic: Denies easy bleeding and Denies easy bruising Allergic/Immunologic: Allergic/Immunologic: Denies wheezing [facility] Medical History Hepatic encephalopathy Portal vein thrombosis Cirrhosis Splenic vein thrombosis Sepsis Cirrhosis of liver with ascites Abdominal pain Thrombocytopenia Pancytopenia Cirrhosis Hepatitis C virus infection Esophageal varices Pancytopenia Iron deficiency anemia Cirrhosis Hepatitis C HBP (high blood pressure) Functional capacity: independent ambulation Family History Maternal Grandmother Breast CA Uterus cancer Mother Primary lung cancer of unknown cell type Surgical History S/P TIPS (transjugular intrahepatic portosystemic shunt) H/O left inguinal hernia repair H/O eye surgery History of esophagogastroduodenoscopy (EGD) H/O colonoscopy Social History Household Members: None Household Members Other:: care home Housing: Other Housing Other:: care home Are you a primary medicare sales executive to a significant other at home: No Do you presently have visiting nurse or other home services: No Comment: pt refusing alarm's Patient Tobacco Use Status: Never used Tobacco Tobacco use type: Cigarette Cigarette Packs Per Day: 1 Cigarettes Per Day: 5 Years Smoked: 30 Second Hand Smoke Exposure: No Substance Use Type: Crack/Cocaine and Marijuana Advance Directives: Yes Advance Directives on File: Yes Advance Directives Date on File: 04/02/24 Nutrition Risks: No Nutritional Risk service: No Current occupational status: retired Narrative: no smoking, etoh, or drug use Meds Allergies Allergy/AdvReac Type Severity Reaction Status Date / Time dicyclomine [From Bentyl] Allergy Unknown Verified 12/02/24 22:15 aspirin AdvReac Severe stomach Verified 12/02/24 22:15 bleeding NSAIDS (Non-Steroidal AdvReac Severe liver Verified 12/02/24 22:15 Anti-Inflamma concerns Active Medications: Current Medications Acetaminophen (Acetaminophen 325 Mg Tablet) 650 mg PO Q6H PRN PRN Reason: Pain, Mild 1-3,fever,headache Calcium Carbonate (Calcium Carbonate 750 Mg Tab.Chew) 750 mg PO Q4H PRN PRN Reason: Heartburn Magnesium Hydroxide (Milk Of Magnesia 30 Ml Oral.Susp) 30 ml PO DAILY PRN PRN Reason: Constipation Melatonin (Melatonin 3 Mg Tablet) 6 mg PO BEDTIME PRN PRN Reason: Insomnia Ondansetron HCl (Ondansetron Hcl 4 Mg/2 Ml Vial) 4 mg IVPUSH Q8H PRN PRN Reason: Nausea and Vomiting Sodium Chloride (0.9 % Sodium Chloride Flush 3 Ml Syringe) 3 ml IVFLUSH QSHIFT [facility] Physical Exam 2 Vital Signs and Narrative: Vital Signs: Last Vital Signs Temp 98.9 F 12/03/24 04:16 Pulse 72 12/03/24 06:08 Resp 15 12/03/24 06:08 BP 141/68 H 12/03/24 06:08 Pulse Ox 96 12/03/24 06:08 O2 Del Method Room Air 12/03/24 06:08 BMI result Body Mass Index 34.0 General: Alert. not oriented to place or time, no acute distress Resp: CTA bilaterally CVS: S1, S2, RRR GI: +BS, tender epigastric region, mild distention Skin: Warm, dry Neuro: Cranial nerves II-XII grossly intact bilaterally. Motor grossly intact bilaterally Extremities: No pitting edema Psych: Appropriate affect Const: General: confusion Orientation/consciousness: confusion Eyes: Direct Ophthalmoscopy: No photophobia Neuro: General: confusion Results Labs 12/02/24 22:40 12/03/24 05:18 Labs: Laboratory Results - last 24 hr 12/02/24 12/03/24 22:40 05:18 MCV 84.5 MCH 29.3 MCHC 34.6 RDW 16.7 H Plt Count 21 L MPV 11.5 Not Reportable Immature Gran % (Auto) 0.6 H Neut % (Auto) 56.6 Lymph % (Auto) 31.8 [place] % (Auto) 9.7 Eos % (Auto) 1.3 Baso % (Auto) 0.0 Lymph # (Auto) 0.[address] [place] # (Auto) 0.2 Eos # (Auto) 0.0 Baso # (Auto) 0.0 Abs Immat Gran (auto) 0.01 Absolute Neuts (auto) 0.9 L Absolute Nucleated RBC 0.000 Nucleated RBC % (auto) 0.0 Smear Tech's Comments VERIFIED PT 16.4 H INR 1.4 H Anion Gap 9 L 8 L Estim Creat Clear Calc 116.4 124.7 Estimated GFR > 60 > 60 Random Glucose 99 99 Calcium 8.4 8.5 Magnesium 2.0 Total Bilirubin 1.6 H 1.6 H Direct Bilirubin 0.6 H AST 49 H 60 H ALT 32 29 Alkaline Phosphatase 141 H 120 H Ammonia 219 H 157 H B-Natriuretic Peptide 102 H Total Protein 6.3 L 6.0 L Albumin 2.9 L 2.7 L Ethyl Alcohol < 10 Influenza Type A (PCR) NEGATIVE Influenza Type B (PCR) NEGATIVE RSV RNA Qual (PCR) NEGATIVE SARS-CoV-2 RNA (RT-PCR) NEGATIVE Assessment and Plan (1) Acute hepatic encephalopathy: Status: Acute (2) UGIB (upper gastrointestinal bleed): Status: Acute (3) Hyperammonemia: Status: Acute (4) Pancytopenia: Status: Acute (5) Hyperchloremic metabolic acidosis: Status: Acute (6) Obesity (BMI 30.0-34.9): Status: Acute Plan Patient is a 64-year-old male with a past medical history significant for cirrhosis s/p TIPS, hx hep C, portal and spenic vein thrombosis, chornic thrombocytopenia and HTN, who presented to the ED due to dizziness, confusion, and epigastric pain. Acute hepatic encephalopathy secondary to upper GI bleed and hyperammonemia - pt reports melena and reports he has been taking lactulose as prescribed but has a history of non-compliance - chronic anemia but has been dropping, was 13.1 last month, now 9.9, no need for blood transfusion at this time - ammonia 219 - labs with hyperchloremic metabolic acidosis - bedside US by ED provider without ascites - LFTs at baseline - NPO - GI consult - octerotide 50mcg followed by drip, ceftriaxone 2g Q24H, and pantoprazole 40mg BID - given 2 doses of lactulose in ED - monitor CBC pancytopenia - at baseline, continue to monitor CBC HTN - continue home meds Class 1 obesity - BMI 34.0 - weight loss encouraged full code VTE prophy: compression, anticoagulant contraindicated due to thrombocytopenia Patient with acute hepatic encephalopathy secondary to upper GI bleed and hyperammonemia, requiring admission for at least 2 midnights stay for further evaluation by Gastroenterology with possible EGD, and monitoring. Quality Stroke Does the patient have a stroke diagnosis?: No VTE Prior VTE?: Yes VTE Risk Level:: Medical - moderate - high VTE Device Contraindication: N/A - Device Ordered VTE Drug Contraindication: Treatment Not Indicated
[2024-12-03] MEDS: Pantoprazole Sodium 40 MG/10 ML VIAL IVPUSH ×2 (06:38→16:32)
[2024-12-03] MEDS: cefTRIAXone sodium 2 GM VIAL IVPUSH (06:39)
[2024-12-03] MEDS: Octreotide Acetate 100 MCG/ML AMPUL 50 MCG IVPUSH (06:39)
[2024-12-03] MEDS: Octreotide Acetate 500 MCG in 0.9 % Sodium Chloride 500 ML 50.1 MCG IVCONT ×2 (08:42→22:21)
[2024-12-03] MEDS: 0.9 % Sodium Chloride Flush 3 ML SYRINGE IVFLUSH ×2 (08:42→20:21)
--- NOTE | 2024-12-03 08:44 | MHC.CM.PN ---
Patient stays at the [address] in [place] and he may need assist with transport; CM has initiated and will follow for dc planning. Patient is functionally independent and HCP on file names Niraj as the Agent. PCP is Dr. Stover.
--- NOTE | 2024-12-03 09:19 | PM.GICN ---
History of Present Illness Data of Consult Service Date: 12/03/24 Requesting physician: Lc Cohn Primary Care Provider: Leta Dick MD HPI Reason for consult: GIB This is a 64-year-old gentleman with past medical history of chronic HCV (s/p SVR) that has led to cirrhosis complicated by portal hypertension, history of large varices status post EVBL 08/2024, s/p TIPS 10/2024 who presented to the hospital for abdominal pain, weakness and confusion and found to have worsening of chronic anemia. Patient reports feeling lightheaded and dizzy 2 days prior to hospitalization. Reports also had a small nosebleed the day of admission. Friend found him passed out in his long term room. Prior to that, patient endorses lightheadedness on suddenly standing up, or going up or down the stairs. No abdominal pain, nausea, vomiting. He does report bilateral leg pain. Does not think stools are black. Has been taking lactulose as prescribed, reports 2-3 bowel movements a day. He is not on rifaximin. Review of Systems Review of Systems: Yes all other systems are reviewed and are negative [facility] Past Medical History Medical History Hepatic encephalopathy Portal vein thrombosis Cirrhosis Splenic vein thrombosis Sepsis Cirrhosis of liver with ascites Abdominal pain Thrombocytopenia Pancytopenia Cirrhosis Hepatitis C virus infection Esophageal varices Pancytopenia Iron deficiency anemia Cirrhosis Hepatitis C HBP (high blood pressure) Family History Family History Maternal Grandmother Breast CA Uterus cancer Mother Primary lung cancer of unknown cell type Surgical History Surgical History S/P TIPS (transjugular intrahepatic portosystemic shunt) H/O left inguinal hernia repair H/O eye surgery History of esophagogastroduodenoscopy (EGD) H/O colonoscopy Social History Social History Household Members: None Household Members Other:: long term Housing: Other Housing Other:: [address] in [place] Are you a primary long term care social worker to a significant other at home: No Do you presently have visiting nurse or other home services: No Comment: pt refusing alarm's Patient Tobacco Use Status: Never used Tobacco Tobacco use type: Cigarette Cigarette Packs Per Day: 1 Cigarettes Per Day: 5 Years Smoked: 30 Second Hand Smoke Exposure: No Use of substances other than those prescribed or required for medical reasons: No Substance Use Type: Crack/Cocaine and Marijuana Have you been hit, kicked, punched, or otherwise hurt by someone within the past year? If so, by whom?: No Do you feel safe in your current relationship?: No Current Relationship Is there a partner from a previous relationship who is making you feel unsafe now?: No Are you made to feel afraid or neglected: No Advance Directives: Yes Advance Directives on File: Yes Advance Directives Date on File: 04/02/24 Do you have a plan to hurt others: No Plan Recently lost weight without trying: No Nutrition Risks: No Nutritional Risk service: No Current occupational status: retired Meds Allergies Allergy/AdvReac Type Severity Reaction Status Date / Time dicyclomine [From Bentyl] Allergy Unknown Verified 12/02/24 22:15 aspirin AdvReac Severe stomach Verified 12/02/24 22:15 bleeding NSAIDS (Non-Steroidal AdvReac Severe liver Verified 12/02/24 22:15 Anti-Inflamma concerns Active Medications: Current Medications Acetaminophen (Acetaminophen 325 Mg Tablet) 650 mg PO Q6H PRN PRN Reason: Pain, Mild 1-3,fever,headache Calcium Carbonate (Calcium Carbonate 750 Mg Tab.Chew) 750 mg PO Q4H PRN PRN Reason: Heartburn Ceftriaxone Sodium (Ceftriaxone Sodium 2 Gm Vial) 2 gm IVPUSH Q24H [facility] Last Admin: 12/03/24 06:39 Dose: 2 gm Octreotide Acetate 500 mcg/ (Sodium Chloride) 501 mls @ 50.1 mls/hr IVCONT .Q10H [facility] Last Admin: 12/03/24 08:42 Dose: 50 mcg/hr, 50.1 mls/hr Lactulose (Lactulose 20 Gm/30 Ml Solution) 30 gm PO TID [facility] Magnesium Hydroxide (Milk Of Magnesia 30 Ml Oral.Susp) 30 ml PO DAILY PRN PRN Reason: Constipation Melatonin (Melatonin 3 Mg Tablet) 6 mg PO BEDTIME PRN PRN Reason: Insomnia Ondansetron HCl (Ondansetron Hcl 4 Mg/2 Ml Vial) 4 mg IVPUSH Q8H PRN PRN Reason: Nausea and Vomiting Pantoprazole Sodium (Pantoprazole Sodium 40 Mg/10 Ml Vial) 40 mg IVPUSH BID@0630,1630 [facility] Last Admin: 12/03/24 06:38 Dose: 40 mg Sodium Chloride (0.9 % Sodium Chloride Flush 3 Ml Syringe) 3 ml IVFLUSH QSHIFT [facility] Last Admin: 12/03/24 08:42 Dose: 3 ml Home Medications ?Medication ?Instructions ?Recorded ?Confirmed ?Last Taken ?Type amlodipine 5 mg tablet 5 mg PO DAILY 12/03/24 12/03/24 Unknown History ascorbic acid (vitamin C) 250 mg 250 mg PO DAILY 12/03/24 12/03/24 Unknown History tablet clotrimazole 1 % topical cream 1 appl topical BID 12/03/24 12/03/24 Unknown History ferrous sulfate 325 mg (65 mg 325 mg PO DAILY 12/03/24 12/03/24 Unknown History iron) tablet furosemide 40 mg tablet 40 mg PO DAILY 12/03/24 12/03/24 Unknown History Physical Exam Vital Signs: Vital Signs: Last Vital Signs Temp 98.9 F 12/03/24 04:16 Pulse 72 12/03/24 06:08 Resp 15 12/03/24 06:08 BP 141/68 H 12/03/24 06:08 Pulse Ox 96 12/03/24 06:08 O2 Del Method Room Air 12/03/24 06:08 BMI result Body Mass Index 34.0 No acute distress Right eye evisceration Nonicteric No overt respiratory distress Abdomen soft, nontender, no hepatomegaly Mild nonpitting lower extremity edema Alert oriented x3, no asterixis Results Labs 12/03/24 05:18 12/03/24 05:18 Labs: Short CBC 12/02/24 12/03/24 Range/Units 22:40 05:18 WBC 1.5 L 1.2 L (4.8-10.8) X10*3/uL Hgb 9.8 L 9.9 L (14.0-18.0) g/dl Hct 28.3 L 29.2 L (42.0-52.0) % Plt Count 21 L 24 L (160-400) X10*3/uL BMP 12/02/24 12/03/24 22:40 05:18 Sodium 143 142 Potassium 4.2 4.3 Chloride 117 H 118 H Carbon Dioxide 21 L 20 L BUN 12 11 Creatinine 0.75 0.70 Calcium 8.4 8.5 Liver Function 12/02/24 12/03/24 Range/Units 22:40 05:18 Total Bilirubin 1.6 H 1.6 H (0.0-1.0) mg/dL Direct Bilirubin 0.6 H (0.0-0.5) mg/dL AST 49 H 60 H (5-37) U/L ALT 32 29 (0-40) U/L Alkaline Phosphatase 141 H 120 H (39-117) U/L Albumin 2.9 L 2.7 L (3.5-5.0) g/dL Assessment and Plan (1) Syncope: Status: Acute (2) Cirrhosis of liver: Status: Acute (3) Acute hepatic encephalopathy: Status: Acute (4) S/P TIPS (transjugular intrahepatic portosystemic shunt): Status: Acute (5) Acute on chronic anemia: Status: Acute (6) Leukopenia: Status: Acute Plan Chronic HCV genotype 1a with cirrhosis s/p Epclusa with SVR 2023 HBV core Ab pos, HBV surface Ag negative s/p EGD with variceal banding with progressive varices 2/2 PV thrombosis. Anticoagulation contraindicated due to high risk varices and low platelet <25. S/p TIPS 10/15/24 - thrombectomy not done due to reduction of burden of clot. MELD-Na 12 Presenting with syncope, in the background of lightheadedness and dizziness. No HE clinically at the time of evaluation. Also has neutropenia. Will need w/up to eval for causes of syncope - orthostasis vs TIA vs arrythmia etc. Pt also with worsening PANcytopenia including anemia. May need dedicated hematology evaluaiton. Would also recommend repeat contrasted CT abd/pel to eval for PV thrombus, spleen size etc for ? sequestration. Plan: - Syncope work up as per primary team - Consider US duplex lower extremity to r/o DVT - CT abd/pel with and without contrast (triple phased, liver protocol) - Monitor CBC - no evidence of overt GI hemorrhage, and all 3 cell lines down suspect bone marrow involvement vs splenic sequestration - OK for diet today from GI standpoint - Add rifaximin 550 BID - Cont lactulose - Add protein shakes. Nutrition consult for sarcopenia. Thank you for allowing me to participate in his care. Please do not hesitate to reach out for questions or concerns. Procedures Date of Service Date of Service: 12/03/24
--- NOTE | 2024-12-03 11:06 | PHA.MEDREC ---
Addendum entered by Nancy Steele RPh 12/03/24 11:39: reviewed by [facility]. Original Note: Pharmacy Consult ? Medication Reconciliation Pharmacy has completed the medication reconciliation. 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 I called and left a voice mail for [employer] around [phone] and then tried calling back around [phone] and the phone was off. I then tried calling [facility] at [phone] and the lady who picked up the phone claims she was not [employer] and we had the wrong phone number. I called and got a list from [facility] we were able to use to confirm the med rec.
--- NOTE | 2024-12-03 14:48 | PM.EVENT ---
Event Note Date of Service: 12/03/24 Event Note: Patient evaluated. Chart reviewed. GI - ok with diet, continue lactulose, and rifaximin 550 mg b.i.d., abdominal pelvis CT scan with and without contrast (liver protocol), check lower extremities ultrasound to rule out DVT, nutrition evaluation and syncope workup (check orthostatic and TTE). Time Spent With Patient Time: Total time managing care of this patient today ____ minutes.
--- NOTE | 2024-12-03 14:57 | MHC.CLN ---
re: consult for sarcopenia recommend adding ensure max bid to provide 300kcals, 60g protein
[2024-12-03 16:41] LABS: Hematocrit 33.1 % (42.0-52.0); Hemoglobin 11.2 g/dl (14.0-18.0); Mean Corpuscular HGB Conc 33.8 g/dl (31.0-36.0); Mean Corpuscular Hemoglobin 28.8 pg (27.0-33.0); Mean Corpuscular Volume 85.1 fL (80.0-98.0); Red Blood Count 3.89 X10*6/uL (4.60-5.80); Red Cell Distribution Width 16.6 % (11.0-16.0)
[2024-12-03 16:52] LABS: White Blood Count 2.1 X10*3/uL (4.8-10.8)
[2024-12-03 16:57] LABS: Platelet Count 20 X10*3/uL (160-400)
[2024-12-03] MEDS: iohexoL 350 MG/ML 100 ML INFUS..BTL 85 ML IV (17:49)
[2024-12-03] MEDS: carvediloL 3.125 MG TABLET PO (20:21)
[2024-12-03] MEDS: rifAXIMin 550 MG TABLET PO (20:21)
[2024-12-03 23:44] LABS: Appearance Urine Clear; Color Urine Yellow; Glucose Urine UA Negative (Negative); Leukocyte Esterase Urine Negative (Negative); Nitrite Urine Negative (Negative); PH 5.5 (5.0-9.0); Specific Gravity - Urine >= 1.030 (1.005-1.025); Urine Blood Negative (Negative); Urine Ketones Negative (Negative); Urine Protein Negative (Neg-Trace)
[2024-12-04] VITALS (10 sets, daily range): BP systolic 113–161; BP diastolic 54–73; PULSE 66–83; RESP 16–18; TEMP 37–37.1; O2SAT 96–100
[2024-12-04 00:09] LABS: Amphetamine Screen Urine Not Detected (Not Detect); Barbiturates, Urine Not Detected (Not Detect); Benzodiazepines Screen Urine Not Detected (Not Detect); Buprenorphine Scr Not Detected (Not Detect); Cannabinoid Screen Urine Not Detected (Not Detect); Cocaine Screen Urine Not Detected (Not Detect); Fentanyl, urine Not Detected (Not Detect); Methadone Screen, Urine Not Detected (Not Detect); Opiate Screen Urine Not Detected (Not Detect); Oxycodone Screen Urine Not Detected (Not Detect); Phencyclidine Screen Urine Not Detected (Not Detect)
[2024-12-04] MEDS: cefTRIAXone sodium 2 GM VIAL IVPUSH (05:27)
[2024-12-04] MEDS: Pantoprazole Sodium 40 MG/10 ML VIAL IVPUSH ×2 (05:27→17:02)
[2024-12-04 06:40] LABS: Hematocrit 29.9 % (42.0-52.0); Hemoglobin 10.2 g/dl (14.0-18.0); Mean Corpuscular HGB Conc 34.1 g/dl (31.0-36.0); Mean Corpuscular Volume 84.9 fL (80.0-98.0); Mean Platelet Volume 14.6 fL (9.4-12.4); Platelet Count 23 X10*3/uL (160-400); Red Blood Count 3.52 X10*6/uL (4.60-5.80); Red Cell Distribution Width 16.4 % (11.0-16.0); White Blood Count 2.1 X10*3/uL (4.8-10.8)
[2024-12-04 06:50] LABS: Alanine Aminotransferase 24 U/L (0-40); Albumin Level 2.7 g/dL (3.5-5.0); Alkaline Phosphatase 116 U/L (39-117); Anion Gap 10 (12-20); Aspartate Amino Transferase 38 U/L (5-37); Blood Urea Nitrogen 12 mg/dL (9-16); Carbon Dioxide 22 mmol/L (22-29); Chloride 113 mmol/L (96-108); Creatinine Clr Calc Pharmacy 98.1; Estimated Glomerular Filt Rate > 60; Glucose Random 87 mg/dL (60-115); Magnesium 1.7 mg/dL (1.6-2.6); Potassium 4.4 mmol/L (3.3-5.1); Sodium 141 mmol/L (135-145); Total Protein 5.8 g/dL (6.5-8.0)
[2024-12-04] MEDS: 0.9 % Sodium Chloride Flush 3 ML SYRINGE IVFLUSH ×3 (10:28→22:55)
[2024-12-04] MEDS: Ferrous Sulfate 324 MG TABLET.DR PO (10:29)
[2024-12-04] MEDS: Furosemide 40 MG TABLET PO (10:29)
[2024-12-04] MEDS: amLODIPine Besylate 5 MG TABLET PO (10:29)
[2024-12-04] MEDS: Octreotide Acetate 500 MCG in 0.9 % Sodium Chloride 500 ML 50.1 MCG IVCONT (10:29)
[2024-12-04] MEDS: Ascorbic Acid 250 MG TABLET PO (10:29)
[2024-12-04] MEDS: carvediloL 3.125 MG TABLET PO ×2 (10:30→22:04)
[2024-12-04] MEDS: rifAXIMin 550 MG TABLET PO ×2 (10:30→22:04)
[2024-12-04] MEDS: Lactulose 20 GM/30 ML SOLUTION 30 GM PO ×3 (10:30→22:05)
--- NOTE | 2024-12-04 15:52 | HO.PM.IMPN ---
Subjective Subjective Date of Service: 12/04/24 Interval History: Patient stated feeling well. Denied further events of dizziness. Ambulating without issues. Denied abdominal pain, nausea or diarrhea. Stools are brown. Physical Exam Vital Signs: Vital Signs: Last Vital Signs Temp 98.6 F 12/04/24 11:10 Pulse 72 12/04/24 11:10 Resp 18 12/04/24 11:10 BP 138/64 12/04/24 11:10 Pulse Ox 96 12/04/24 11:10 O2 Del Method Room Air 12/04/24 11:10 BMI result Body Mass Index 34.0 Constitutional - Awake and Alert, No apparent distress. Pleasant. Cooperative. HEENT - PERRL, EOMI. Normal sclerae. Heart - S1S2, RRR, No edema Lungs - Normal lung expansion, Normal respiratory effort, No respiratory distress, CTA bilaterally Abdomen - NT / ND; +BS; No rebound or guarding Extremities - no calf tenderness bilaterally, no swelling Musculoskeletal - Normal inspection, normal ROM Skin - Warm/Dry. No pallor. No jaundice. Neurological - Alert & oriented x3. No focal weakness grossly noted. Normal speech. Psychological - Appropriate affect Objective Data Active Medications Acetaminophen (Acetaminophen 325 Mg Tablet) 650 mg PO Q6H PRN PRN Reason: Pain, Mild 1-3,fever,headache Amlodipine Besylate (Amlodipine Besylate 5 Mg Tablet) 5 mg PO DAILY [facility]; Protocol Last Admin: 12/04/24 10:29 Dose: 5 mg Documented By: EVERARDO Ascorbic Acid (Ascorbic Acid 250 Mg Tablet) 250 mg PO DAILY [facility] Last Admin: 12/04/24 10:29 Dose: 250 mg Documented By: EVERARDO Calcium Carbonate (Calcium Carbonate 750 Mg Tab.Chew) 750 mg PO Q4H PRN PRN Reason: Heartburn Carvedilol (Carvedilol 3.125 Mg Tablet) 3.125 mg PO BID [facility]; Protocol Last Admin: 12/04/24 10:30 Dose: 3.125 mg Documented By: EVERARDO Ceftriaxone Sodium (Ceftriaxone Sodium 2 Gm Vial) 2 gm IVPUSH Q24H [facility] Last Admin: 12/04/24 05:27 Dose: 2 gm Documented By: JENNIFER Ferrous Sulfate (Ferrous Sulfate 324 Mg Tablet.) 324 mg PO DAILY [facility] Last Admin: 12/04/24 10:29 Dose: 324 mg Documented By: EVERARDO Furosemide (Furosemide 40 Mg Tablet) 40 mg PO DAILY [facility]; Protocol Last Admin: 12/04/24 10:29 Dose: 40 mg Documented By: EVERARDO Octreotide Acetate 500 mcg/ (Sodium Chloride) 501 mls @ 50.1 mls/hr IVCONT .Q10H [facility] Last Admin: 12/04/24 10:29 Dose: 50 mcg/hr, 50.1 mls/hr Documented By: EVERARDO Lactulose (Lactulose 20 Gm/30 Ml Solution) 30 gm PO TID [facility] Last Admin: 12/04/24 14:59 Dose: 30 gm Documented By: EVERARDO Magnesium Hydroxide (Milk Of Magnesia 30 Ml Oral.Susp) 30 ml PO DAILY PRN PRN Reason: Constipation Melatonin (Melatonin 3 Mg Tablet) 6 mg PO BEDTIME PRN PRN Reason: Insomnia Ondansetron HCl (Ondansetron Hcl 4 Mg/2 Ml Vial) 4 mg IVPUSH Q8H PRN PRN Reason: Nausea and Vomiting Pantoprazole Sodium (Pantoprazole Sodium 40 Mg/10 Ml Vial) 40 mg IVPUSH BID@0630,1630 [facility] Last Admin: 12/04/24 05:27 Dose: 40 mg Documented By: RICARDO-GEENAZEB Rifaximin (Rifaximin 550 Mg Tablet) 550 mg PO BID [facility] Last Admin: 12/04/24 10:30 Dose: 550 mg Documented By: EVERARDO Sodium Chloride (0.9 % Sodium Chloride Flush 3 Ml Syringe) 3 ml IVFLUSH QSHIFT [facility] Last Admin: 12/04/24 10:28 Dose: 3 ml Documented By: EVERARDO Labs 12/04/24 05:42 12/04/24 05:42 Labs: Laboratory Results - last 24 hr 12/03/24 12/03/24 12/04/24 15:56 23:37 05:42 MCV 85.1 84.9 MCH 28.8 29.0 MCHC 33.8 34.1 RDW 16.6 H 16.4 H Plt Count 20 L* 23 L MPV Not Reportable 14.6 H Absolute Nucleated RBC 0.000 0.000 Nucleated RBC % (auto) 0.0 0.0 Anion Gap 10 L Estim Creat Clear Calc 98.1 Estimated GFR > 60 Random Glucose 87 Calcium 8.0 L Magnesium 1.7 Total Bilirubin 2.0 H AST 38 H ALT 24 Alkaline Phosphatase 116 Total Protein 5.8 L Albumin 2.7 L Urine Color Yellow Urine Appearance Clear Urine pH 5.5 Ur Specific [place] >= 1.030 H Urine Protein Negative Urine Glucose (UA) Negative Urine Ketones Negative Urine Blood Negative Urine Nitrite Negative Ur Leukocyte Esterase Negative Urine Opiates Screen Not Detected Ur Buprenorphine Scrn Not Detected Ur Oxycodone Screen Not Detected Urine Methadone Screen Not Detected Urine Fentanyl Screen Not Detected Ur Barbiturates Screen Not Detected Ur Phencyclidine Scrn Not Detected Ur Amphetamines Screen Not Detected U Benzodiazepines Scrn Not Detected Urine Cocaine Screen Not Detected U Marijuana (THC) Screen Not Detected Assessment and Plan (1) Syncope: Status: Acute (2) Acute hepatic encephalopathy: Status: Acute Plan Adelso Mcmanus is a 64-year-old male with a past medical history significant for cirrhosis s/p TIPS, hx hep C, portal and spenic vein thrombosis admitted with: Acute hepatic encephalopathy, resolved. Patient is now alert and oriented x3. Continue lactulose. Continue rifaximin Urine toxicology is negative Dizziness/syncope, resolved. Orthostatic vital signs, acceptable. No symptoms upon standing up or walking. ECG on arrival - normal Recent TTE (Oct 2024) - EF 60-65%, no significant valve disease. Melena, resolved. Hemoglobin is at baseline (10.2 today) Continue to monitor H&H Continue Protonix Discontinue octreotide Nonocclusive thrombus in the main portal vein inclusive of the splenoportal confluence, grossly patent tips shunt, stable. To be discussed with IR for possible thrombectomy Appreciate GI input Pancytopenia At baseline Continue to monitor CBC HTN Continue Coreg and amlodipine Class 1 obesity BMI 34.0 weight loss encouraged Full code VTE prophylaxis: compression, anticoagulant contraindicated due to thrombocytopenia. Patient is ambulating. GI prophylaxis: Protonix Patient is still requiring inpatient care to continue optimal treatment and possible intubation by IR. Quality Stroke Does the patient have a stroke diagnosis?: No VTE Prior VTE?: Yes VTE Risk Level:: Medical - moderate - high VTE Device Contraindication: N/A - Device Ordered VTE Drug Contraindication: Treatment Not Indicated
[2024-12-05 04:00] VITALS: BP 133/63; PULSE 71; RESP 16
[2024-12-05] MEDS: Pantoprazole Sodium 40 MG/10 ML VIAL IVPUSH (05:47)
[2024-12-05 07:02] VITALS: BP 121/54; PULSE 69; RESP 18; TEMP 37.1; O2SAT 95
[2024-12-05] MEDS: Lactulose 20 GM/30 ML SOLUTION 30 GM PO (08:31)
[2024-12-05] MEDS: Ferrous Sulfate 324 MG TABLET.DR PO (08:32)
[2024-12-05] MEDS: rifAXIMin 550 MG TABLET PO (08:32)
[2024-12-05] MEDS: Furosemide 40 MG TABLET PO (08:32)
[2024-12-05] MEDS: carvediloL 3.125 MG TABLET PO (08:32)
[2024-12-05] MEDS: amLODIPine Besylate 5 MG TABLET PO (08:32)
[2024-12-05] MEDS: Ascorbic Acid 250 MG TABLET PO (08:32)
--- NOTE | 2024-12-05 09:45 | P.DS_ITS ---
DS: Providers Provider Date of Service: 12/05/24 Date of admission: 12/03/24 02:32 Date of discharge: 12/05/24 Primary care physician: Leta Dick MD Admitting clinician: Lc Cohn Consults: 12/03/24 06:25 Consult to Gastroenterology Routine Consulting Provider: Yajaira Antonio Reason for consultation: GI bleed Attending physician on discharge: Mikey Lopez Discharging clinician: Mikey Lopez DS: Diagnosis Discharge Diagnosis (1) Syncope: Status: Acute (2) Acute hepatic encephalopathy: Status: Acute DS: Summary Hospital Course Hospital Course: HPI on admission Chief Complaint: confusion, epigastric pain Patient is a 64-year-old male with a past medical history significant for cirrhosis s/p TIPS, hx hep C, portal and spenic vein thrombosis, chornic thrombocytopenia and HTN, who presented to the ED due to dizziness, confusion, and epigastric pain. Additionally the patient reported to the ED provider that the epigastric pain had resolved however he states it is still present when I examined him. He also reports melena for the past few days. He reports he has been taking his lactulose 3 times a day as prescribed. He denies any nausea or vomiting. He did have a nosebleed just prior to arrival. He denies any chest pain, shortness of breath, urinary symptoms, or upper respiratory symptoms. He reports he is scheduled for an outpatient endoscopy soon. Hospital course Patient admitted under hospitalist service. He was found to have hepatic encephalopathy. Lactulose was increased to 30 g PO TID. He was started on Protonix 40 mg IV twice daily, rifaximin and octreotide IV infusion. Patient's hemoglobin remained stable during the hospitalization and did not required PRBC transfusions. His orthostatic vital signs remained unremarkable. Recent TTE (Oct 2024) showed normal EF and no heart valve disease. Subsequently, his mental status returned to baseline and tolerated diet and activity well. He underwent abdominal pelvis CT scan (liver protocol) stable nonocclusive thrombus in the main portal vein increasing of the spleno portal confluence. Patient was evaluated by GI service who recommended follow with by IR as an outpatient (Dr. Ness). Time Attestation Discharge Coordination Time (in mins): 40 minutes Quality: Safe Use of Opioids Does Pt have an Active Cancer Diagnosis on the Problem List?: No Quality: Stroke Does the patient have a stroke diagnosis?: No Physical Exam Vital Signs: Vital Signs: Last Vital Signs Temp 98.8 F 12/05/24 07:02 Pulse 69 12/05/24 07:02 Resp 18 12/05/24 07:02 BP 121/54 L 12/05/24 07:02 Pulse Ox 95 12/05/24 07:02 O2 Del Method Room Air 12/05/24 07:02 BMI result Body Mass Index 34.0 Constitutional - Awake and Alert, No apparent distress. Pleasant. Cooperative. HEENT - PERRL, EOMI. Normal sclerae. Heart - S1S2, RRR, No edema Lungs - Normal lung expansion, Normal respiratory effort, No respiratory distress, CTA bilaterally Abdomen - NT / ND; +BS; No rebound or guarding Extremities - no calf tenderness bilaterally, no swelling Musculoskeletal - Normal inspection, normal ROM Skin - Warm/Dry. No pallor. No jaundice. Neurological - Alert & oriented x3. No focal weakness grossly noted. Normal speech. Psychological - Appropriate affect DS: Data Data Completed and Pending Completed studies during hospitalization [Text1]: Procedures Labs on day of discharge: December 04, 2024 WBC 2.1 Hemoglobin 10.2 Hematocrit 29.9 Platelet is 23 Sodium 141 Potassium 4.4 Chloride 113 CO2 22 Anion gap 10 BUN 12 Creatinine 0.89 Glucose 87 Calcium 8.0 Magnesium 1.7 Total bilirubin 2.0 AST 38 ALT 24 Alk-phos 116 Protein 5.8 Albumin 2.7 December 02, [address] scan - abdomen: Radiologist's impression: 1. Stable nonocclusive thrombus in the main portal vein inclusive of the splenoportal confluence. Grossly patent TIPS shunt. 2. Stable splenomegaly. 3. Cirrhotic liver morphology. No ascites. 4. No obstructive or acute inflammatory changes in the gastrointestinal and genitourinary tracts. 5. Diverticulosis coli. 6. Tiny left pleural effusion. Bilateral lower lobe septal thickening secondary to inflammation /infection or fluid overload. Venous US: Radiologist's impression: Negative for bilateral lower extremity deep vein thrombosis. Discharge Plan Discharge Anticipated Discharge Date/Time: 12/05/24 09:38 Patient Disposition: Home, Self-Care Discharge Diagnosis: s/p hepatic encephalopathy Referrals: Leta Soto MD [Primary Care Provider] - 1 Week Discharge Medications: New lactulose 10 gram/15 mL Solution 30 g PO TID Qty: 1500 0RF Continued carvedilol 3.125 mg tablet 3.125 mg PO BID Qty: 60 3RF furosemide 40 mg tablet 40 mg PO DAILY clotrimazole 1 % cream 1 appl topical BID ascorbic acid (vitamin C) 250 mg tablet 250 mg PO DAILY ferrous sulfate 325 mg (65 mg iron) tablet 325 mg PO DAILY amlodipine 5 mg Tablet 5 mg PO DAILY Discontinued lactulose 10 gram/15 mL Solution 20 g PO TID Qty: 3000 2RF Discharge Orders: Discharge Order (Routine); Ordered 12/05/24 Ordered By: Mikey Lopez Diet: Advance to usual diet Activity on Discharge: As tolerated Stand Alone Forms: Patient Portal Discharge page Print Language: Croatian Care Plan Goals: See above Health Concerns: See discharge summary Plan of Treatment: Increase lactulose 30 PO g t.i.d. Follow-up with Dr. Abraham Ness (IR) on December 16, 2024, office number [phone] Antonio as an outpatient in 2 weeks Assessment: See discharge summary Discharge Date/Time: 12/05/24 12:20
--- NOTE | 2024-12-05 12:00 | MHC.CM.PN ---
Pt is medically cleared for discharge home self-care, pt has arranged his own transport home today.
== END 2024-12-05 12:20 | disposition home or self-care (01) ==
LOC: HO.ED 12-03 00:19 → HO.EDOVER 12-03 06:27 → HO.IMC 12-03 07:16
PROVIDERS: Admitting Provider Student in an Organized Health Care Education/Training Program; Emergency Provider Emergency Medicine; PCP Student in an Organized Health Care Education/Training Program; Visit Provider Internal Medicine
DX: K74.69 Other cirrhosis of liver (principal); I81 Portal vein thrombosis; D61.818 Other pancytopenia; E72.20 Disorder of urea cycle metabolism, unspecified; B18.2 Chronic viral hepatitis C; K92.1 Melena; K76.82 Hepatic encephalopathy; E66.811 Obesity, class 1; Z71.3 Dietary counseling and surveillance; Z68.34 Body mass index [BMI] 34.0-34.9, adult; Z59.01 Sheltered homelessness; Z20.822 Contact with and (suspected) exposure to COVID-19; Z79.899 Other long term (current) drug therapy
CPT/HCPCS: 0241U; 36415; 74178; 80048; 80053; 80076; 80307; 81003; 82140; 83735; 83880; 84484; 85025; 85027; 85610; 93005; 93970; 99285; J0696; J2354; J2470; Q9967

== ENCOUNTER → 2024-12-02 22:01 | Outpatient (BNV) | payer MEDICAID, SELFPAY | PROVIDERS: Admitting Provider Student in an Organized Health Care Education/Training Program; Emergency Provider Emergency Medicine; PCP Student in an Organized Health Care Education/Training Program; Visit Provider Internal Medicine Cardiovascular Disease | DX: R53.1 Weakness (principal) | CPT/HCPCS: 93010 ==

== ENCOUNTER 2024-12-03 02:32 | Outpatient (BNV) | payer MEDICAID, SELFPAY | END 2024-12-03 16:00 | PROVIDERS: Admitting Provider Student in an Organized Health Care Education/Training Program; Emergency Provider Emergency Medicine; PCP Student in an Organized Health Care Education/Training Program; Visit Provider Radiology Diagnostic Radiology | DX: I81 Portal vein thrombosis (principal); R16.1 Splenomegaly, not elsewhere classified; K57.90 Diverticulosis of intestine, part unspecified, without perforation or abscess without bleeding; R22.43 Localized swelling, mass and lump, lower limb, bilateral | CPT/HCPCS: 74178; 93970 ==

== ENCOUNTER → 2024-12-03 02:32 | Outpatient (BNV) | payer MEDICAID, SELFPAY | PROVIDERS: Admitting Provider Student in an Organized Health Care Education/Training Program; Emergency Provider Emergency Medicine; PCP Student in an Organized Health Care Education/Training Program; Visit Provider Internal Medicine | DX: R55 Syncope and collapse (principal); K74.60 Unspecified cirrhosis of liver; K76.82 Hepatic encephalopathy; Z95.828 Presence of other vascular implants and grafts; D64.9 Anemia, unspecified; D72.819 Decreased white blood cell count, unspecified | CPT/HCPCS: 99223 ==

== ENCOUNTER → 2024-12-03 02:32 | Outpatient (BNV) | payer MEDICAID, SELFPAY | PROVIDERS: Admitting Provider Student in an Organized Health Care Education/Training Program; Emergency Provider Emergency Medicine; PCP Student in an Organized Health Care Education/Training Program; Visit Provider Internal Medicine | DX: R55 Syncope and collapse (principal); K76.82 Hepatic encephalopathy | CPT/HCPCS: 99223; 99233; 99239; 99499 ==

== ENCOUNTER 2024-12-15 08:38 | Outpatient (REF) | payer MEDICAID, SELFPAY ==
--- OUTSIDE RECORDS SUMMARY | 2024-12-15 09:14 | XMS_ITS | Encounter Summary ---
Author Organization [employer] Address [address] [address] [place] [address] Care Team Providers Care Noise Abatement Engineer Name Role Phone Leta Soto MD Primary Care Pro vider Yajaira Antonio Unavailable Encounter Details Date Type Department Care Team (Late st Contact Info) Description 11/11/2024 Telephone [facility] [address] [place] [address] Leta Soto MD [address] [place] [address] Social History Tobacco Use Types Packs/Day Years [...] 12:27 PM EST Tc from amrita stiles case repairer requesting the status on pt documented in this encounter Plan of Treatment Upcoming Encounters Date Type Department Care Team (Late st Contact Info) Description 01/29/2025 1:15 PM EDT Office Visit [facility] [address] [place] [phone] Leta Soto MD [address] [place] [address] documented as of this encounter Goals Goal Patient Goal Type Associated Problems Recent Progress Patient-Stated? Author Blood Pressure < 140/90 Blood Pressure 150/64(2024 3:24 PM EDT) Loan [employer] Record your blood pressure once per day Blood Pressure No [employer] [facility] documented as of this encounter Visit Diagnoses Not on filedocumented in this encounter Additional Health Concerns Assessment Noted Time PHQ-9 Depression Total Score: 18 023 11:23 AM EDT documented as of this encounter Care Teams Noise Abatement Engineer Relationship Specialty Start Date End Date Leta Soto MD [address] [place] [id number] PCP - General Internal Medicine 04/11/23 Yajaira Antonio [address] [place] [address] Drive [address] [place] [address] Gastroenterology 09/04/24 documented as of this encounter
--- OUTSIDE RECORDS SUMMARY | 2024-12-15 09:14 | XMS_ITS | Clinical Summary ---
Author Organization [employer] Address [address] [place] [address] Care Team Providers Care Molecular Biology Director Name Role Phone Leta Soto MD Primary Care Pro vider Yajaira Antonio Unavailable Allergies Active Allergy Reactions Criticality Noted Date Comments Dicyclomine 05/26/2023 Medications * This document contains information received from the source organization and may not represent a complete record from that organization. Blood Pressure Monitor kit Check blood pressure twice a wee. Dx hypertension 1 kit 023 Active albuterol 108 (90 Base) MCG/ACT inhaler Inhale 2 puffs every 6 (six) hours if needed for wheezing. 18 g 2 023 Active carvedilol (Coreg) 3.125 MG tablet Take 1 tablet by mouth with breakfast and with evening meal. 024 Active lactulose (Chronulac) 10 GM/15ML solution Take 20 g by mouth 3 times daily. Active clotrimazole (Lotrimin) 1 % creamIndication s:Tinea pedis of both feet Apply topically 2 times daily for 28 days. 30 g 5 025 2024 Active amLODIPine (Norvasc) 5 MG tabletIndicatio ns:Essential hypertension Take 1 tablet (5 mg) by mouth Once per day. 30 tablet 11 025 2025 Active furosemide (Lasix) 40 MG tabletIndicatio ns:Bilateral leg edema Take 1 tablet (40 mg) by mouth in the morning. 30 tablet 11 025 2025 Active omeprazole (PriLOSEC) [address] capsule Take 20 mg by mouth in the morning. 024 2024 Discontinued(M ed list cleanup (will not trigger notification to Pharmacy)) Reguloid 57.6 % powder MIX 1 TEASPOONFUL IN 8 OUNCES OF WATER AND TAKE TWICE DAILY 284 g 2 024 2024 Discontinued(M ed list cleanup (will not trigger notification to Pharmacy)) furosemide (Lasix) 20 MG tablet TAKE 1 TABLET (for pain) EVERY MORNING 90 tablet 024 2024 Discontinued(M ed list cleanup (will not trigger notification to Pharmacy)) amLODIPine (Norvasc) 5 MG tablet Take 1 tablet (5 mg) by mouth Once per day. 90 tablet 025 2024 Discontinued(M ed list cleanup (will not trigger notification to Pharmacy)) Ascorbic Acid (vitamin C) 250 MG tablet TAKE 1 TABLET BY MOUTH EVERY MORNING 90 tablet 1 025 2024 Discontinued(M ed list cleanup (will not trigger notification to Pharmacy)) Ferrous Sulfate (iron) 325 (65 Fe) MG tablet TAKE 1 TABLET BY MOUTH EVERY MORNING 90 tablet 1 025 2024 Discontinued(M ed list cleanup (will not trigger notification to Pharmacy)) furosemide (Lasix) 20 MG tabletIndicatio ns:Other cirrhosis of liver (CMS/HCC) Take 1 tablet (20 mg) by mouth Once per day. 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 Follow up with [facility]: Not recommended for follow-up 2. Patient goal is be connected to services 3. Behavioral Recommendations a. Patient will engage in service once established b. Patient may return to [facility] for medical needs until a [...] Encounters Date Type Department Care Team Description 12/09/[address] [address] Yamel Khanna, RN Hospital Follow-up 12/05/[address] [address] Leta Soto MD call back 12/03/2024 Orders Only [facility] External Provider, [facility] 11/28/[address] [address] Yamel Khanna, pelts skinner; Medication Changes 11/27/2024 2:30 PM EDT Office Visit [address] [address] Ann Piña ANP Healthcare maintenance (Primary Dx); Severe thrombocytopenia (CMS/HCC); Pancytopenia (CMS/HCC); Hepatic encephalopathy (CMS/HCC); Illiteracy; Cognitive impairment; Esophageal varices determined by endoscopy (CMS/HCC); Essential hypertension; Bilateral leg edema; Chest tightness 11/27/2024 Travel 11/27/2024 Patient Outreach [address] [address] Leta Soto MD 11/27/2024 Patient Outreach [address] [address] Leta Soto MD Care Coordination (CM/CHW Outreach) 11/27/2024 Patient Outreach [facility] [place] [address] Leta Soto MD Care Coordination (W Chart Review ) 11/27/2024 Patient Outreach [address] [place] [address] Leta Soto MD Care Coordination ([facility]- chart review) 11/27/2024 Patient Outreach [facility] [place] [address] Leta Soto MD 11/26/[address] [address] Leta Soto MD Results 11/24/2024 1:15 PM EDT Office Visit [address] [address] [place] [facility] Other cirrhosis of liver (CMS/HCC) (Primary Dx); Pancytopenia (CMS/HCC); Essential hypertension; Lower extremity edema; Tinea pedis of both feet 11/24/2024 Orders Only [facility] [place] [address] [facility] 11/24/[address] [address] Leta Soto MD 11/21/2024 Population Health Risk Score [facility] [address] [place] [phone] Provider, Population Health Generic 11/18/2024 Telephone [facility] [place] [address] Ysabel Omer MD CHART PREP 11/17/2024 Orders Only GENER[facility] EXTERNAL DATA DEPARTMENT Provider, Generic External Data 11/14/[address] [address] Leta Soto MD Lab Orders 11/11/[address] [address] Leta Soto MD 11/07/2024 Orders Only [facility] External Provider, [facility] 11/03/[address] [place] [address] Leta Soto MD No Show 10/31/2024 Orders Only [facility] External Provider, [facility] 10/28/2024 Orders Only GENERIC EXTERNAL DATA DEPARTMENT Provider, Generic External Data 10/28/2024 Refill [facility] [address] [place] [address], [place] [address] Leta Soto MD 10/23/[address] [place] [address] Kelly Dick PharmD 10/22/2024 Patient Outreach [address] [place] [address] Leta Soto MD Transition Of Care (Tcm) (HDF- Scheduled) 10/22/2024 Telephone [facility] [address] [place] [address] Kelly Dick PharmHoda 10/22/[address] [place] [address] Leta Soto MD DRUG CLERK Services (The patient requested DRUG CLERK services. I called to ask what ADLs he needs assistance with, and he stated that he is unable to talk at this time, and asked for me to call back at about 10:30 today.); [facility] DRUG CLERK Services (I called the patient regarding his request for DRUG CLERK services. I asked what ADLs he needs assistance with, and he asked me to speak with Jonathan. Jonathan stated that he needs assistance with bathing, getting dressed, medications, housekeeping, cooking, and going to appointments. She stated that if he is approved, she will be his DRUG CLERK. I informed her that once he is referred, he will be receiving a call from [facility], to set up an evaluation. She requested for [facility] to call her, because sometimes the pa) 10/13/2024 Telephone [facility] [address] [place] [address] Nhung Caicedo [place] december recall 10/08/2024 Orders Only [facility] External Provider, [facility] from Last 3 Months Immunizations Name Administration [...] Types Packs/Day Years Used Date Smoking Tobacco: Former Cigarettes Q uit: 11/26/2024 Passive Smoke Exposure: Current Smokeless Tobacco: Never Tobacco Cessation:Counseling Given: Yes Comments:Pt smokes since 15 y [...] with others, in a hotel, in a detention, living outside on the street, on a beach, in a car, or in a park 11/27/[address] you li ve. Do you have problems with any of the following? None of the above 11/27/2024 Food Insecurity Answer Date Recorded Within the past 12 months, y ou worried that your food would run out before you got money to buy more: Often true 11/27/2024 Within the past 12 months,th e food you bought just didn't last and you didn't have enough money to get more: Often true Transportation Answer Date Recorded In the past 12 months, has l ack of transportation kept you from medical appts, meetings, work or from getting things needed for daily living? I am not sure 11/27/2024 Utilities Answer Date Recorded In the past 12 months, has t he electric, gas, oil or water company threatened to shut off services in your home? No 11/27/2024 Depression Answer Date Recorded Patient Health Questionnaire-2 Score 0 10/25/2023 Internet Access Answer Date Recorded Internet Access Q1 Yes 11/27/2024 Internet Access Q2 Not on file 11/27/2024 Sex and Gender Information Value Date Recorded Sex Assigned at Male 04/05/2023 12:03 PM EDT Legal Sex Male 12:23 PM EDT Gender Identity Male 04/05/2023 12:03 PM EDT Sexual Orientation Don't know 05/26/2023 6: 44 PM EDT Sexual Orientation Straight 05/26/2023 6: 44 PM EDT Last Filed Vital Signs Vital Sign Reading Time Taken Comments Blood Pressure 150/64 11/27/2024 3:24 PM EDT Pulse 78 11/27/2024 2:45 PM EDT Temperature 36.7 ??C (98.1 ??F) 11/27/2024 2:45 PM ED T Respiratory Rate 16 11/27/2024 2:45 PM EDT Oxygen Saturation 99% 11/27/2024 2:45 PM EDT Inhaled Oxygen Concentration - - Weight 100 kg (221 lb 3.2 oz) 11/27/2024 2:45 PM EDT Height 180.3 cm (5' 11 ) 11/24/2024 1:41 PM EDT Body Mass Index 30.85 11/24/2024 1:41 PM EDT Plan of Treatment Upcoming Encounters Date Type Department Care Team (Late st Contact Info) Description 01/29/2025 1:15 PM EDT Office Visit [facility] [address] [place] [phone] Leta Soto MD [address] [place] [address] Health Maintenance Due Date Last Done Comments [...] season) 2024 Influenza Vaccine (#1) 2024 05/25/2023 Depression Screening 10/25/2024 10/25/2023, 04/09/2023 SDOH Screening 11/27/2025 11/27/2024 Tobacco Screening 11/27/2025 11/27/2024 Lipid Panel 04/06/2028 04/06/2023 DTaP/Tdap/Td Vaccines (2 [...] 140/90 Blood Pressure 150/64(2024 3:24 PM EDT) No Loan [facility] Record your blood pressure once per day Blood Pressure No Loan [facility]bot Procedures Procedure Name Priority Date/Time Associated Diagnosis Comments CT ABDOMEN PELVIS W AND WO CONTRAST Routine 12/03/2024 6:53 PM EDT VASC US LOWER EXTREMITY VENOUS DUPLEX BILATERAL Routine 12/03/2024 4:40 PM EDT SLIDE REVIEW Routine 11/24/2024 2:30 PM EDT CBC WITH AUTO DIFFERENTIAL Routine 11/24/2024 2:30 PM EDT Pancytopenia (CMS/HCC) COMPREHENSIVE METABOLIC PANEL Routine 11/24/2024 2:30 PM EDT Pancytopenia (CMS/HCC) COMPLETE BLOOD COUNT MAN DIF Routine 11/17/2024 1:55 PM EDT SLIDE REVIEW Routine 11/17/2024 1:55 PM EDT FERRITIN Routine 11/17/2024 1:55 PM EDT COMPREHENSIVE METABOLIC PANEL Routine 11/17/2024 1:55 PM EDT CBC WITH AUTO DIFFERENTIAL Routine 11/17/2024 1:55 PM EDT T-SPOT(R).TB Routine 11/17/2024 1:55 PM EDT Tuberculosis screening US ABDOMEN LIMITED Routine 11/07/2024 9: 25 [...] W CONTRAST Routine 10/08/2024 9:40 PM EST LIPID PANEL, STANDARD Routine 04/06/2023 10:00 AM EDT Healthcare maintenance from Last 3 Months or Most Recently Relevant to Health Maintenance Results * CT Abdomen Pelvis w/ and w/o Contrast (12/03/2024 6:53 PM EDT) Anatomical Region Laterality Modality Body, Pelvis, Abdomen Computed T omography 12/03/2024 6:53 PM EDT Narrative 12/03/2024 6:55 PM EDT ? [facility] ?[address] ?[place] [address] ? CT Scan Report ? Signed ? Patient: Godfrey Mcmanus,Adelso ?MR#: [id number] ?? [id number] ? : 1960 ?Acct:[id number] ? Age/Sex: 64 / M ?ADM Date: 03/26/25 ? Loc: [facility] ?450-1 ? Attending Dr: Jeisa Christensen Lopez MD ? Ordering Physician: Mikey Schmitt MD ?? Date of Service: 12/03/24 ?? Procedure(s): CT abdomen pelvis wo/w IV con ?? Accession Number(s): [id number] ? cc: Mieky Schmitt MD; Leta Soto MD ? Report Number: ?? [id number]: Total DLP = 1963.00 mGy-cm ? CLINICAL HISTORY: Eval for PV thrombus, spleen size, liver protocol ? CT ABDOMEN AND PELVIS WITH AND WITHOUT CONTRAST ? Comparison: CT - CT ABDOMEN PELVIS WO/W IV CON - 12/03/24 17:34 EDT ?? CT/SR - CT ABDOMEN PELVIS W IV CON - 11/07/24 01:49 EST ? Findings: ?? Tiny left pleural effusion. Bilateral lower lobe atelectasis. ?? Bilateral lower lobe septal thickening. ? The spleen measures 20 cm AP x 19 cm in length compared with 20 x 17 cm on ?? prior study. Redemonstration of eccentric thrombus in the main portal vein ?? that extends to the splenoportal confluence and is exclusive of the TIPS ?? shunt. Again seen is cirrhotic liver morphology. ?? No large calcified gallstone. No peripancreatic edema or abnormal ?? pancreatic enhancement. Normal adrenal glands. ?? No hydronephrosis or urolithiasis. There is a small right renal cyst. ?? Atherosclerotic changes in the abdominal aorta. No AAA. ?? Multiple subcentimeter periportal and peripancreatic lymph nodes. ?? No bowel obstruction, pneumoperitoneum, or pneumatosis. ?? Thick-walled distal esophagus with small adjacent varices, unchanged. ?? Mild mesenteric edema. No ascites. ?? Small fat containing umbilical hernia. ? Colonic diverticulosis. No acute diverticulitis. ?? The appendix is identified. No acute appendicitis. ?? Stable mild prostatomegaly. ?? The bones are intact. ? IMPRESSION: ?? 1. Stable nonocclusive thrombus in the main portal vein inclusive of the ?? splenoportal confluence. Grossly patent TIPS shunt. ?? 2. Stable splenomegaly. ?? 3. Cirrhotic liver morphology. No ascites. ?? 4. No obstructive or acute inflammatory changes in the gastrointestinal ?? and genitourinary tracts. ?? 5. Diverticulosis coli. ?? 6. Tiny left pleural effusion. Bilateral lower lobe septal thickening ?? secondary to inflammation /infection or fluid overload. ? This document has been electronically signed by: Siri Hwang, DO on ?? 12/03/2024 18:53:55 ? Dictated By: ?Siri Hwang MD ? Signed By: ?<Electronically signed by Siri Hwang MD in OV> ?12/03/241854 ? DD/ 52 ? TD/TT: 12/03/24 1853 ? Child Monitor: ? Procedure Note Donotuseinterpreter, Image - 12/03/[address] [place] [address] [address] Scan Report Signed Patient: Adelso BeebeMR#: [id number] : 2Acct:[id number] Age/Sex: 64 / MADM Date: 12/03/24 Loc: [facility] 450-[address]: Mikey Lopez MD Ordering Physician: Mikey Schmitt MD Date of Service: 12/03/24 Procedure(s): CT abdomen pelvis wo/w IV con Accession Number(s): [id number] cc: Mikey Shcmitt MD; Leta Soto MD Report Number: [id number]: Total DLP = 1963.00 mGy-cm CLINICAL HISTORY: Eval for PV thrombus, spleen size, liver protocol CT ABDOMEN AND PELVIS WITH AND WITHOUT CONTRAST Comparison: CT - CT ABDOMEN PELVIS WO/W IV CON - 12/03/24 17:[address]/SR - CT ABDOMEN PELVIS W IV CON - 11/07/24 01:49 EST Findings: Tiny left pleural effusion. Bilateral lower lobe atelectasis. Bilateral lower lobe septal thickening. The spleen measures 20 cm AP x 19 cm in length compared with 20 x 17 cm on prior study. Redemonstration of eccentric thrombus in the main portal vein that extends to the splenoportal confluence and is exclusive of the TIPS shunt. Again seen is cirrhotic liver morphology. No large calcified gallstone. No peripancreatic edema or abnormal pancreatic enhancement. Normal adrenal glands. No hydronephrosis or urolithiasis. There is a small right renal cyst. Atherosclerotic changes in the abdominal aorta. No AAA. Multiple subcentimeter periportal and peripancreatic lymph nodes. No bowel obstruction, pneumoperitoneum, or pneumatosis. Thick-walled distal esophagus with small adjacent varices, unchanged. Mild mesenteric edema. No ascites. Small fat containing umbilical hernia. Colonic diverticulosis. No acute diverticulitis. The appendix is identified. No acute appendicitis. Stable mild prostatomegaly. The bones are intact. IMPRESSION: 1. Stable nonocclusive thrombus in the main portal vein inclusive of the splenoportal confluence. Grossly patent TIPS shunt. 2. Stable splenomegaly. 3. Cirrhotic liver morphology. No ascites. 4. No obstructive or acute inflammatory changes in the gastrointestinal and genitourinary tracts. 5. Diverticulosis coli. 6. Tiny left pleural effusion. Bilateral lower lobe septal thickening secondary to inflammation /infection or fluid overload. This document has been electronically signed by: Siri Hwang DO on 12/03/2024 18:53:55 Dictated By: Siri Hwang MD Signed By: <Electronically signed by Siri Hwang MD in OV> 12/03/241854 DD/ 52 TD/TT: 12/03/241852 Child Monitor: [facility] External Provider IMG CT PROCEDURES Final Result * VASC US Lower Extremity Venous Duplex Bilateral (12/03/2024 4:40 PM EDT) 12/03/2024 4:40 PM EDT [facility] - 12/03/2024 4:41 PM EDT ? [facility] ?[address] ?[place] [address] ? Ultrasound Report ? Signed ? Patient: Godfrey Mcmanus,Adelso ?MR#: [id number] ?? [id number] ? : 1960 ?Acct:[id number] ? Age/Sex: 64 / M ?ADM Date: 12/03/ ? Loc: [facility] ?450-1 ? Attending Dr: Mikey Lopez MD ? Ordering Physician: Mikey Schmitt MD ?? Date of Service: 12/03/24 ?? Procedure(s): US venous duplex LE BI ?? Accession Number(s): [id number] ? cc: Mikey Schmitt MD; Leta Soto MD ? CLINICAL HISTORY: Leg edema, Rule out DVT ? VENOUS DUPLEX ULTRASOUND BILATERAL LOWER EXTREMITY ? Comparison: None ? Findings: ?? The visualized deep veins are fully compressible with normal Doppler color ?? flow and spectral tracings. ?? No popliteal cyst. ?? There is subcutaneous edema in the right calf. ? IMPRESSION: ?? 1. Negative for bilateral lower extremity deep vein thrombosis. ? This document has been electronically signed by: Siri Hwang, DO on ?? 12/03/2024 16:40:35 ? Dictated By: ?Siri Hwang MD ? Signed By: ?<Electronically signed by Siri Hwang MD in OV> ?12/03/24 1641 ? DD/ 1640 ? TD/TT: 12/03/24 1640 ? Child Monitor: ? Procedure Note Donotuseinterpreter, Image - 12/03/[address] [address] Ultrasound Report Signed Patient: Adelso BeebeMR#: [id number] : 1960cct:[id number] Age/Sex: 64 / MADM Date: 12/03/24 Loc: [facility] 450-[address]: Mikey Lopez MD Ordering Physician: Mikey Schmitt MD Date of Service: 12/03/24 Procedure(s): US venous duplex LE BI Accession Number(s): [id number] cc: Mikey Schmitt MD; Leta Soto MD CLINICAL HISTORY: Leg edema, Rule out DVT VENOUS DUPLEX ULTRASOUND BILATERAL LOWER EXTREMITY Comparison: None Findings: The visualized deep veins are fully compressible with normal Doppler color flow and spectral tracings. No popliteal cyst. There is subcutaneous edema in the right calf. IMPRESSION: 1. Negative for bilateral lower extremity deep vein thrombosis. This document has been electronically signed by: Siri Hwang DO on 12/03/2024 16:40:35 Dictated By: Siri Hwang MD Signed By: <Electronically signed by Siri Hwang MD in OV> 12/03/24 1641 DD/ 1640 TD/TT: 12/03/24 1640 Child Monitor: [facility] External Provider CV VASC ULAR PROCEDURES Final Result [facility] [address] [place] [address] * Slide Review (11/24/2024 2:30 PM EDT) Only the most recent of2 resultswithin the time period is included. Slide Review VERIFIED [facility] 11/24/2024 2:30 PM EDT 11/24/2024 4:24 PM EDT [facility] LAB BLOOD ORDERABLES Final Re sult [facility] [address] [place] [address] [phone] * (ABNORMAL) CBC auto differential (11/24/2024 2:30 PM EDT) Only the most recent of2 resultswithin the time period is included. White Blood Count 2.0(L) 4.8 - 10.8 X10*3/uL [facility] Red Blood Count 3.63(L) 4.60 - 5.80 X10*6/uL [facility] Hemoglobin 10.5(L) 14.0 - 18.0 g/dl [facility] Hematocrit 32.3(L) 42.0 - 52.0 % [facility] Mean Corpuscular Volume 89.0 80.0 - 98.0 fL [facility] Mean Corpuscular Hemoglobin 28.9 27.0 - 33.0 pg [facility] Mean Corpuscular HGB Conc 32.5 31.0 - 36.0 g/dl [facility] Red Cell Distribution Width 17.8(H) 11.0 - 16.0 % [facility] Platelet Count 24(L) 160 - 400 X10*3/uL [facility] Mean Platelet Volume 11.8 9.4 - 12.4 fL [facility] Neutrophils Percent Auto 56.3 45 - 73 % [facility] Imm Gran Pct Auto 0.5(H) 0.0 - 0.4 % [facility] Lymphocytes Percent Auto 32.7 20 - 40 % [facility] Monocytes Percent Auto 9.0 2 - 11 % [facility] Eosinophils Percent Auto 1.0 0 - 4 % [facility] Basophils Percent Auto 0.5 0 - 2 % [facility] NRBC Pct Auto 0.0 0.0 - 0.2 /100WBC [facility] Neutrophils Absolute Auto 1.1(L) 2.0 - 8.3 x10*3/uL [facility] Imm Gran Abs Auto 0.01 0.00 - 0.03 X10*3/uL [facility] Lymphocytes Absolute Auto 0.7(L) 1.2 - 4.9 X10*3/uL [facility] Monocytes Absolute Auto 0.2 0.1 - 1.2 X10*3/uL [facility] Eosinophils Absolute Auto 0.0 0.0 - 0.4 X10*3/uL [facility] Basophils Absolute Auto 0.0 0.0 - 0.2 X10*3/uL [facility] NRBC Abs Auto 0.000 0.0 - 0.012 X10*3/uL [facility] Blood Venous blood specimen / Unknown 11/24/2024 2:30 PM EDT 11/24/2024 4:24 PM EDT [facility] LAB BLOOD ORDERABLES Edited R esult - Final [facility] [address] [place] [address] [phone] * (ABNORMAL) Comprehensive Metabolic Panel (11/24/2024 2:30 PM EDT) Only the most recent of2 resultswithin the time period is included. Sodium 144 135 - 145 mmol/L [facility] Potassium 4.9 3.3 - 5.1 mmol/L [facility] Chloride 116(H) 96 - 108 mmol/L [facility] Carbon Dioxide 25 22 - 29 mmol/L [facility] Anion Gap 8(L) 12 - 20 [facility] Urea Nitrogen (BUN) 12 9 - 16 mg/dL [facility] Creatinine, Serum 0.72 0.5 - 1.4 mg/dL [facility] Estimated Glomerular Filt Rate >60 [facility] Comment:Chronic Kidney Disea se: Estimated GFR < 60 mL/min/1.68o4Lcxzoe Kidney Disease: Estimated GFR < 15 mL/min/1.73m2 Glucose 99 60 - 115 mg/dL [facility] Calcium 8.4 8.4 - 10.2 mg/dL [facility] Bilirubin, Total 1.6(H) 0.0 - 1.0 mg/dL [facility] Aspartate Amino Transferase 48(H) 5 - 37 U/L [facility] Alanine Aminotransferase 31 0 - 40 U/L [facility] Total Protein 6.7 6.5 - 8.0 g/dL [facility] Albumin Level 3.0(L) 3.5 - 5.0 g/dL [facility] Alkaline Phosphatase 145(H) 39 - 117 U/L [facility] Blood Venous blood specimen / Unknown 11/24/2024 2:30 PM EDT 11/24/2024 4:24 PM EDT [facility] LAB BLOOD ORDERABLES Final Re sult [facility] [address] [place] [phone] * (ABNORMAL) Complete Blood Count Manual Diff (11/17/2024 1:55 PM EDT) White Blood Count 2.4(L) 4.8 - 10.8 X10*3/uL [facility] Red Blood Count 3.56(L) 4.60 - 5.80 X10*6/uL [facility] Hemoglobin 10.4(L) 14.0 - 18.0 g/dl [facility] Hematocrit 30.7(L) 42.0 - 52.0 % [facility] Mean Corpuscular Volume 86.2 80.0 - 98.0 fL [facility] Mean Corpuscular Hemoglobin 29.2 27.0 - 33.0 pg [facility] Mean Corpuscular HGB Conc 33.9 31.0 - 36.0 g/dl [facility] Red Cell Distribution Width 17.4(H) 11.0 - 16.0 % [facility] Platelet Count 22(L) 160 - 400 X10*3/uL [facility] NRBC Pct Auto 0.0 0.0 - 0.2 /100WBC [facility] NRBC Abs Auto 0.000 0.0 - 0.012 X10*3/uL [facility] Neutrophils % Manual 65 45 - 73 % [facility] Band Neutrophils Percent 0(L) 3 - 5 % [facility] Lymphocytes Percent Manual 23 20 - 40 % [facility] Monocytes Percent Manual 11 2 - 11 % [facility] EOSINOPHILS % MANUAL 1 0 - 4 % [facility] NEUTROPHILS ABSOLUTE MANUAL 1.6(L) 2.0 - 8.3 X10*3/uL [facility] LYMPHOCYTES ABSOLUTE MANUAL 0.6(L) 1.2 - 4.9 X10*3/uL [facility] MONOCYTES ABSOLUTE MANUAL 0.3 0.1 - 1.2 X10*3/uL [facility] Platelet Estimate NORMAL NORMAL [facility] Platelet Morphology Comment NORMAL [facility] RBC Morphology NOTED [facility] Ovalocytes 1+ (5-14) /OIF [facility] 11/17/2024 1:55 PM EDT 11/17/2024 4:00 PM EDT us Generic External Data Provider LAB BLOOD ORDERAB LES Final Result [facility] [address] [place] [address] [phone] * T-SPOT??.TB (11/17/2024 1:55 PM EDT) [facility] T Spot TB Negative Negative [facility] Comment:A negative test resu lt does not exclude the possibilityof exposure to or infection with Mycobacteriumtuberculosis (M. tuberculosis). Patients with recentexposure to TB infected individuals exhibiting anegative T-SPOT.TB result should be considered forretesting within 6 weeks or if other relevant clinicalsymptoms indicate. Results from T-SPOT.TB testing mustbe used in conjunction with each individual'sepidemiological history, current medical status,and results of other diagnostic evaluations.The T-SPOT.TB test is qualitative and results arereported as positive, borderline, or negative, giventhat the test controls perform as expected. In linewith the Centers for Disease Control and Prevention's2010 recommendation to report quantitative measurementsalongside the qualitative result, the laboratoryprovides spot counts for informational purposes only.The T-SPOT.TB test should not be interpreted as aquantitative test. TS PANEL A 0 [facility] TS PANEL B 0 [facility] Negative Control Passed [facility] Positive Control Passed [facility] Comment:For additional infor bobtiffany, please refer tohttp://[email or web address]/faq/UBH406(This link is being provided for informational/educational purposes only.)THIS TEST WAS PERFORMED AT:[employer] [id number] [place] [address]AVDSMUFDORCAS ELAM MD,PHD 11/17/2024 1:55 PM EDT 11/17/2024 4:07 PM EDT us Leta Dick MD LAB BLOOD ORDERAB LES Final Result [facility] [address] [place] [address] [phone] * Ferritin (11/17/2024 1:55 PM EDT) [facility] Ferritin 52 20 - 250 ng/mL [facility] 11/17/2024 1:55 PM EDT 11/17/2024 4:07 PM EDT us Generic External Data Provider LAB BLOOD ORDERAB LES Final Result [facility] [address] [place] [address] [phone] * US Abdomen Limited (11/07/2024 9:25 AM EST) Only the most recent of2 resultswithin the time period is included. Anatomical Region Laterality Modality Abdomen Ultrasound 11/07/2024 9:25 AM EST Narrative 11/07/2024 9:55 AM EST ? [facility] ?[address] ?[place] ? Ultrasound Report ? Signed ? Patient: Godfrey Adelso Mcmanus ?MR#: [id number] ?? [id number] ? : 1960 ?Acct:[id number] ? Age/Sex: 63 / M ?ADM Date: 11/07/24 ? Loc: HO.[place] ?MEDSURG-3 ? Attending Dr: Ivis HAMILTON ? Ordering Physician: Lc Cohn MD ?? Date of Service: 11/07/24 ?? Procedure(s): US abdomen limited ?? Accession Number(s): [id number] ? cc: Leta Soto MD; Lc Cohn [...] Signed By: ?<Electronically signed by Lopez S Cassidy MD in OV> ?11/07/24 0952 ? DD/ 4 ? TD/TT: 11/07/24 0945 ? Child Monitor: MSM ? Procedure Note Donaaronter, Image - 11/07/2024 [place] [address] Ultrasound Report Signed Patient: Adelso BeebeMR#: [id number] : 1960cct:[id number] Age/Sex: 63 / MADM Date: 11/07/24 Loc: [facility]-[address]: Ivis HAMILTON Ordering Physician: Lc Cohn MD Date of Service: 11/07/24 Procedure(s): US abdomen limited Accession Number(s): [id number] cc: Leta Soto MD; Lc Cohn MD [...] in OV> 11/07/2452 DD/ 4 TD/TT: 11/07/2445 Child Monitor: KAZ [facility] External Provider IMG US PROCEDURES Final Result * CT Abdomen Pelvis w/ Contrast (11/07/2024 3:31 AM EST) Only the most recent of3 resultswithin the time period is included. Anatomical Region Laterality Modality Body, Pelvis, Abdomen Computed T omography 11/07/2024 3:31 AM EST Narrative 11/07/2024 3:33 AM EST ? [facility] ?[address] ?[place] [address] ? CT Scan Report ? Signed ? Patient: Adelso Beebe ?MR#: [id number] ?? [id number] ? : 1960 ?Acct:[id number] ? Age/Sex: 63 / M ?ADM Date: 11/07/24 ? Loc: HO.ED ? Attending Dr: ? Ordering Physician: Gilbert Gandara MD ?? Date of Service: 11/07/24 ?? Procedure(s): CT abdomen pelvis w IV con ?? Accession Number(s): [id number] ? cc: Gilbert Gandara MD; Leta Soto MD ? Report Number: ?? [id number]: Total DLP = 1166.00 mGy-cm ? CLINICAL [...] DD/ 0331 ? TD/TT: 11/07/24 0331 ? Child Monitor: ? Procedure Note Hiral, Mehreen - 11/07/[address] [place] [address] CT Scan Report Signed Patient: Adelso BeebeMR#: [id number] : 2Acct:[id number] Age/Sex: 63 / MADM Date: 11/07/24 Loc: HO.ED Attending Dr: Ordering Physician: Gilbert Gandara MD Date of Service: 11/07/24 Procedure(s): CT abdomen pelvis w IV con Accession Number(s): [id number] cc: Gilbert Gandara MD; Leta Soto MD Report Number: [id number]: Total DLP = 1166.00 mGy-cm CLINICAL HISTORY: [...] Spears MD in OV> 11/07/24 033 DD/ 0 TD/TT: 11/07/24 033 Child Monitor: [facility] External Provider IMG CT PROCEDURES Final Result * CT Chest w/ Contrast (11/07/2024 3:21 AM EST) Anatomical Region Laterality Modality Body, Chest Computed Tomogra phy 11/07/2024 3:21 AM EST Narrative 11/07/2024 3:23 AM EST ? [facility] ?[address] ?[place] [address] ? CT Scan Report ? Signed ? Patient: Adelso Beebe ?MR#: [id number] ?? [id number] ? : 1960 ?Acct:[id number] ? Age/Sex: 63 / M ?ADM Date: 11/07/24 ? Loc: HO.ED ? Attending Dr: ? Ordering Physician: Gilbert Gandara MD ?? Date of Service: 11/07/24 ?? Procedure(s): CT chest w IV con ?? Accession Number(s): [id number] ? cc: Gilbert Gandara MD; Leta Soto MD ? Report Number: ?? [id number]: Total DLP = ??483.00 mGy-cm ? CLINICAL [...] DD/ 0321 ? TD/TT: 11/07/24 0321 ? Child Monitor: ? Procedure Note Donotuseinterpreter, Image - 11/07/[address] [place] [address] [address] Scan Report Signed Patient: Adelso BeebeMR#: [id number] : 1960cct:[id number] Age/Sex: 63 / MADM Date: 11/07/24 Loc: HO.ED Attending Dr: Ordering Physician: Gilbert Gandara MD Date of Service: 11/07/24 Procedure(s): CT chest w IV con Accession Number(s): [id number] cc: Gilbert Gandara MD; Leta Soto MD Report Number: [id number]: Total DLP = 483.00 mGy-cm CLINICAL HISTORY: [...] in OV> 11/07/24322 DD/ 0 TD/TT: 11/07/24320 Child Monitor: [facility] External Provider IMG CT PROCEDURES Final Result * CT Cervical Spine w/o Contrast (11/07/2024 2:25 AM EST) Anatomical Region Laterality Modality Spine, C-spine Computed Tomogra phy 11/07/2024 2:25 AM EST Narrative 11/07/2024 2:26 AM EST ? [facility] ?[address] ?[place] [address] ? CT Scan Report ? Signed ? Patient: Godfrey Mcmanus,Adelso ?MR#: [id number] ?? [id number] ? : 1960 ?Acct:[id number] ? Age/Sex: 63 / M ?ADM Date: 11/07/24 ? Loc: HO.ED ? Attending Dr: ? Ordering Physician: Gilbert Gandara MD ?? Date of Service: 11/07/24 ?? Procedure(s): CT cervical spine wo IV con ?? Accession Number(s): [id number] ? cc: Gilbert Gandara MD; Leta Soto MD ? Report Number: ?? [id number]: Total DLP = ??344.00 mGy-cm ? CLINICAL HISTORY: fall and ams ? CT cervical spine without contrast ? Comparison: None ? Findings: ?? There is grade 1 anterolisthesis of C3 on C4, of C6 on C7, and also of C7 ?? on T1. Irregularity and sclerosis of the vertebral body endplates present ?? at C6-C7. Xhpi-sl-qdpbbene degenerative endplate changes are present at ?? [...] ? DD/ 4 ? TD/TT: 11/07/24224 ? Child Monitor: ? Procedure Note Mehreen Blackman - 11/07/[address] [address] [address] Scan Report Signed Patient: Adelso BeebeMR#: [id number] : 2Acct:[id number] Age/Sex: 63 / MADM Date: 11/07/24 Loc: HO.ED Attending Dr: Ordering Physician: Gilbert Gandara MD Date of Service: 11/07/24 Procedure(s): CT cervical spine wo IV con Accession Number(s): [id number] cc: Gilbert Gandara MD; Leta Soto MD Report Number: [id number]: Total DLP = 344.00 mGy-cm CLINICAL HISTORY: fall and ams CT cervical spine without contrast Comparison: None Findings: There is grade 1 anterolisthesis of C3 on C4, of C6 on C7, and also of C7 on T1. Irregularity and sclerosis of the vertebral body endplates present at C6-C7. Uyag-ny-tjclkhiz degenerative endplate changes are present at the [...] in OV> 11/07/24225 DD/ 4 TD/TT: 11/07/24224 Child Monitor: [facility] External Provider IMG CT PROCEDURES Final Result * Urinalysis w/reflex microscopic (11/07/2024 2:08 AM EST) Color Urine Dark Yellow [facility] Appearance Urine Clear [facility] PH 6.0 5.0 - 9.0 [facility] Glucose Urine UA Negative Negative mg/dL [facility] Urine Blood Negative Negative [facility] Specific [place] - Urine 1.020 1.005 - 1.025 [facility] Urine Protein Negative Neg-Trace mg/dL [facility] Urine Ketones Trace Negative mg/dL [facility] Nitrite Urine Negative Negative [facility] Leukocyte Esterase Urine Negative Negative [facility] 11/07/2024 2:08 AM EST 11/07/2024 2:12 AM EST Narrative [facility] - 11/07/2024 2:17 AM EST [id number], Clean Catch us Generic External Data Provider LAB URINE ORDERAB LES Final Result [facility] [address] [place] [address] [phone] * CT Head w/o Contrast (11/07/2024 1:40 AM EST) Anatomical Region Laterality Modality Head, Neck Computed Tomogra phy 11/07/2024 1:40 AM EST Narrative 11/07/2024 1:41 AM EST ? [facility] ?[address] ?[place] [address] ? CT Scan Report ? Signed ? Patient: Adelso Beebe ?MR#: [id number] ?? [id number] ? : 1960 ?Acct:[id number] ? Age/Sex: 63 / M ?ADM Date: 11/07/24 ? Loc: HO.ED ? Attending Dr: ? Ordering Physician: Gilbert Gandara MD ?? Date of Service: 11/07/24 ?? Procedure(s): CT head/brain wo IV con ?? Accession Number(s): [id number] ? cc: Gilbert Gandara MD; Leta Soto MD ? Report Number: ?? [id number]: Total DLP = ??743.00 mGy-cm ? CLINICAL [...] 014 ? DD/ 014 ? TD/TT: 11/07/24 0140 ? Child Monitor: ? Procedure Note Donotuseinterpreter, Image - 11/07/[address] [address] [address] Scan Report Signed Patient: Adelso BeebeMR#: [id number] : 1960cct:[id number] Age/Sex: 63 / MADM Date: 11/07/24 Loc: HO.ED Attending Dr: Ordering Physician: Gilbert Gandara MD Date of Service: 11/07/24 Procedure(s): CT head/brain wo IV con Accession Number(s): [id number] cc: Gilbert Gandara MD; Leta Soto MD Report Number: [id number]: Total DLP = 743.00 mGy-cm CLINICAL HISTORY: [...] in OV> 11/07/24140 DD/ 9 TD/TT: 11/07/24139 Child Monitor: [facility] External Provider IMG CT PROCEDURES Final Result * XR Thoracic Spine 2 Views (11/03/2024 1:05 PM EST) Anatomical Region Laterality Modality Spine, T-spine Radiographic Susy ging 11/03/2024 1:05 PM EST Narrative 11/03/2024 1:07 PM EST ? [facility] ?[address] ?[place] [address] ?XRay Report ? Signed ? Patient: Godfrey Mcmanus,Adelso ?MR#: [id number] ?? [id number] ? : 1960 ?Acct:[id number] ? Age/Sex: 63 / M ?ADM Date: 10/31/24 ? Loc: HO.XRAY ? Attending Dr: Yajaira Antonio MD ? Ordering Physician: Yajaira Antonio MD ?? Date of Service: 10/31/24 ?? Procedure(s): XR thoracic spine 2V ?? Accession Number(s): [id number] ? cc: Leta Soto MD; Yajaira Antonio [...] DD/ 1305 ? TD/TT: 11/03/24 1305 ? Child Monitor: ? Procedure Note Hiral, Image - 11/03/[address] [address] XRay Report Signed Patient: Adelso Beebe#: [id number] : 2Acct:[id number] Age/Sex: 63 / MADM Date: 10/31/24 Loc: HO.CLOVERAY Attending Dr: Yajaira Antonio MD Ordering Physician: Yajaira Antonio MD Date of Service: 10/31/24 Procedure(s): XR thoracic spine 2V Accession Number(s): [id number] cc: Leta Soto MD; Yajaira Antonio MD [...] 11/03/24 1307 DD/ 1305 TD/TT: 11/03/24 1305 Child Monitor: [facility] External Provider IMG XR PROCEDURES Final Result * XR Lumbar Spine 2-3 Views (11/03/2024 12:26 PM EST) Anatomical Region Laterality Modality Spine, L-spine Radiographic Susy ging 11/03/2024 12:2 6 PM EST Narrative 11/03/2024 12:28 PM EST ? [facility] ?[address] ?[place] [address] ?XRay Report ? Signed ? Patient: Adelso Beebe ?MR#: [id number] ?? [id number] ? : 1960 ?Acct:[id number] ? Age/Sex: 63 / M ?ADM Date: 10/31/24 ? Loc: HO.XRAY ? Attending Dr: Yajaira Antonio MD ? Ordering Physician: Yajaira Antonio MD ?? Date of Service: 10/31/24 ?? Procedure(s): XR lumbar spine 2-3V ?? Accession Number(s): [id number] ? cc: Leta Soto MD; Yajaira Antonio [...] DD/ 1226 ? TD/TT: 11/03/24 1226 ? Child Monitor: ? Procedure Note Donmaritzakizzyter, Image - 11/03/[address] [address] XRay Report Signed Patient: Adelso BeebeMR#: [id number] : 1960cct:[id number] Age/Sex: 63 / MADM Date: 10/31/24 Loc: HO.XRAY Attending Dr: Yajaira Antonio MD Ordering Physician: Yajaira Antonio MD Date of Service: 10/31/24 Procedure(s): XR lumbar spine 2-3V Accession Number(s): [id number] cc: Leta Soto MD; Yajaira Antonio MD [...] 11/03/24 1227 DD/ 1226 TD/TT: 11/03/24 1226 Child Monitor: [facility] External Provider IMG XR PROCEDURES Final Result * High Sensitivity Troponin I (10/28/2024 7:29 PM EST) Only the most recent of2 resultswithin the time period is included. TROPONIN I HIGH SENSITIVITY 5.2 <3.5 - 35.0 ng/L [facility] Comment:The Clifford high sens itivity Troponin-I results should beused in conjunction with other diagnostic information suchas ECG, clinical observations and information, and patientsymptoms to aid in the diagnosis of DE. 10/28/2024 7:29 PM EST 10/28/2024 7:32 PM EST us Generic External Data Provider LAB BLOOD ORDERAB LES Final Result [facility] [address] [place] [address] [phone] * XR Chest 2 Views (10/28/2024 6:02 PM EST) Anatomical Region Laterality Modality Chest Radiographic Susy ging 10/28/2024 6:02 PM EST Narrative 10/28/2024 6:05 PM EST ? [facility] ?[address] ?[place] [address] ?XRay Report ? Signed ? Patient: Adelso Beebe ?MR#: [id number] ?? [id number] ? : 1960 ?Acct:[id number] ? Age/Sex: 63 / M ?ADM Date: 10/28/24 ? Loc: HO.ED ? Attending Dr: ? Ordering Physician: Venice Morrison CNP ?? Date of Service: 10/28/24 ?? Procedure(s): XR chest 2V ?? Accession Number(s): [id number] ? cc: Venice Morrison CNP; Leta Soto [...] in OV> ? 10/28/24 1804 ? DD/ 01 ? TD/TT: 10/28/241801 ? Child Monitor: ? Procedure Note Hiral, Image - 10/28/[address] [address] XRay Report Signed Patient: Adelso BeebeMR#: [id number] : 1960cct:[id number] Age/Sex: 63 / MADM Date: 10/28/24 Loc: HO.ED Attending Dr: Ordering Physician: Venice Morrison CNP Date of Service: 10/28/24 Procedure(s): XR chest 2V Accession Number(s): [id number] cc: Venice Morrison CNP; Leta Soto MD [...] OV> 10/28/24 180 DD/ 1802 TD/TT: 10/28/24 1802 Child Monitor: [facility] External Provider IMG XR PROCEDURES Edited Result - Final * IR TIPS insertion (10/15/2024 1:30 PM EST) Anatomical Region Laterality Modality X-Ray Angiograph y 10/15/2024 1:30 PM EST Narrative 10/15/2024 4:32 PM EST ? [facility] ?[address] ?[place] [address] ?Interventional Radiology Rpt ? Signed ? Patient: Godfrey Mcmanus,Adelso ?MR#: [id number] ?? [id number] ? : 1960 ?Acct:[id number] ? Age/Sex: 63 / M ?ADM Date: /29/25 ? Loc: HO.ICU ?252-1 ? Attending Dr: Zana Spear MD ? Ordering Physician: Yajaira Antonio MD ?? Date of Service: 10/15/24 ?? Procedure(s): IR TIPS insertion ?? Accession Number(s): [id number] ? cc: Leta Soto MD; Yajaira Antonio [...] was advanced to the IVC. A 10 Icelandic sheath was placed. ?? A hockey-stick catheter was used to catheterize the right hepatic vein. ?? This was confirmed with venography. The sheath was then advanced into ?? the right hepatic vein. A Livescribe TIPS set was then used to gain [...] obtained. An 8 mm x 8 cm [place] [employer] TIPS was ?? then deployed from the hepatic vein to the portal vein. The TIPS stent ?? was postdilated with an 8 mm NOC ANALYST balloon. Portal venogram demonstrates ?? wide patency [...] DD/ 1330 ? TD/TT: 10/15/24 1625 ? Child Monitor: ? Procedure Note Mehreen Blackman - 10/16/2024 [place] [address] Interventional Radiology Rpt Signed Patient: Adelso BeebeMR#: [id number] : 1960cct:[id number] Age/Sex: 63 / MADM Date: 10/08/24 Loc: .[facility] 252-[address]: Zana Spear MD Ordering Physician: Yajaira Antonio MD Date of Service: 10/15/24 Procedure(s): IR TIPS insertion Accession Number(s): [id number] cc: Leta Soto MD; Yajaira Antonio MD [...] was advanced to the IVC. A 10 [place]ic sheath was placed. A hockey-stick catheter was used to catheterize the right hepatic vein. This was confirmed with venography. The sheath was then advanced into the right hepatic vein. A Livescribe TIPS set was then used to gain [...] obtained. An 8 mm x 8 cm [place] [employer] TIPS was then deployed from the hepatic vein to the portal vein. The TIPS stent was postdilated with an 8 mm NOC ANALYST balloon. Portal venogram demonstrates wide patency of [...] by: Abraham Ness MD 10/15/2024 04:30 PM RUBI RP Dictated By: Abraham Ness MD Signed By: <Electronically signed by Abraham Ness MD in OV> 10/15/24 1630 DD/ 1330 TD/TT: 10/15/24 1625 Child Monitor: [facility] External Provider IMG IR PROCEDURES Edited Result - Final * XR Chest 1 View (10/08/2024 9:42 PM EST) Anatomical Region Laterality Modality Chest Radiographic Susy ging 10/08/2024 9:42 PM EST Narrative 10/08/2024 9:43 PM EST ? [facility] ?[address] ?[place] [address] ?XRay Report ? Signed ? Patient: Godfrey McmanusAdelso ?MR#: [id number] ?? [id number] ? : 1960 ?Acct:[id number] ? Age/Sex: 63 / M ?ADM Date: 10/08/24 ? Loc: HO.ED ? Attending Dr: ? Ordering Physician: Bhavana Christensen ?? Date of Service: 10/08/24 ?? Procedure(s): XR chest 1V ?? Accession Number(s): [id number] ? cc: Bhavana Christensen; Leta Soto MD ? CLINICAL HISTORY: htn ? 1 view chest x-ray ? Comparison: CR/SR - XR CHEST 1V - 03/30/24 12:39 EDT ? Findings: ?? No consolidation or effusion. ?? Heart size is normal. ?? No acute fracture. ? IMPRESSION: ?? 1. No acute findings. ? This document has been electronically signed by: Raghu Quezada, ?? MD on 10/08/2024 21:42:35 ? Dictated By: ?Raghu Quezada MD ? Signed By: ?<Electronically signed by Raghu Quezada MD in OV> ?10/08/242142 ? DD/ 41 ? TD/TT: 10/08/242141 ? Child Monitor: ? Procedure Note Hiral, Mehreen - 10/08/2024 [place] [address] [facility] [place] [address] XRay Report Signed Patient: Adelso BeebeMR#: [id number] : 2Acct:[id number] Age/Sex: 63 / MADM Date: 10/08/24 Loc: HO.ED Attending Dr: Ordering Physician: Bhavana Christensen Date of Service: 10/08/24 Procedure(s): XR chest 1V Accession Number(s): [id number] cc: Bhavana Christensen; Leta Soto MD CLINICAL [...] in OV> 10/08/242142 DD/ 41 TD/TT: 10/08/242141 Child Monitor: [facility] External Provider IMG XR PROCEDURES Edited Result - Final * Lipid Panel, Standard (04/06/2023 10:00 AM EDT) Triglycerides 94 mg/dL [facility] Comment:Desirable Triglyceri de: less than 150 mg/dLBorderline High Triglyceride 150-199 mg/dLHigh Triglyceride: 200-499 mg/dLVery High Triglyceride: greater than or equal to 5OO mg/dL Cholesterol 79 mg/dL [facility] Comment:Desirable Cholestero l: less than 200 mg/dLBorderline High Cholesterol: 200-239 mg/dLHigh Cholesterol: greater than 239 mg/dL LDL Cholesterol Calculated 36 mg/dl [facility] Comment:Desirable LDL: less than 100 mg/dLNear Optimal/Above Optimal LDL: 110- 129 mg/dLBorderline High LDL: 130-159 mg/dLHigh LDL: 160-189 mg/dLVery High LDL: greater than or equal to 190 mg/dL HDL Cholesterol 25 mg/dL [facility] Comment:Desirable HDL: great er than 40 mg/dL Note: This HDL assay may give artificially low results in patients with liver disease. Blood Venous blood specimen / Unknown 04/06/2023 10:00 AM EDT 04/06/2023 11:20 AM EDT [facility] LAB BLOOD ORDERABLES Final Resul t [facility] [address] [place] [address] [phone] from Last 3 Months or Most Recently Relevant to Health Maintenance Insurance [facility] C3 HSN FULL Care Teams Molecular Biology Director Relationship Specialty Start Date End Date Leta Soto MD [address] [place] [phone] PCP - General Internal Medicine 04/11/23 Yajaira Antonio [address] [place] [address] 3rd [place] [address] Gastroenterology 09/04/24
--- OUTSIDE RECORDS SUMMARY | 2024-12-15 09:14 | XMS_ITS | Encounter Summary ---
Author Organization [employer] Address [address] [facility] 7t [place] [address] Care Team Providers Care Wheel Molder Name Role Phone Leta Soto MD Primary Care Pro vider Yajaira Antonio Unavailable Encounter Details Date Type Department Care Team (Late st Contact Info) Description 12/17/2023 Orders Only [facility] MED & PEDS [address] [place] [address] Tatyana Mosquera FNP [address] [place] [address] Social History Tobacco Use Types Packs/Day Years [...] Description 01/29/2025 1:15 PM EDT Office Visit [facility] MEDICINE [address] [place] [phone] Leta Soto MD [address] [place] [phone] documented as of this encounter Goals Goal [...] documented as of this encounter Care Teams Wheel Molder Relationship Specialty Start Date End Date Leta Soto MD [address] [place] [phone] PCP - General Internal Medicine 04/11/23 Yajaira Antonio [address]rd Floor [place], [place] [phone] Gastroenterology 09/04/24 documented as of this encounter
--- OUTSIDE RECORDS SUMMARY | 2024-12-15 09:14 | XMS_ITS ---
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 Needs support managing specialist appointments Case Team Name Relationship Phone Stanley Mckeon RN Registered Nurse(Responsible S taff) Continued Care and Services Coordination
--- OUTSIDE RECORDS SUMMARY | 2024-12-15 09:14 | XMS_ITS ---
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 Needs support managing specialist appointments. Please outreach for enrollment. Case Team Name Relationship Phone Chata Puente (Responsible Staff) Continued Care and Services Coordination
[2024-12-15 11:33] LABS: B Type Natriuretic Peptide 123 pg/mL (<100)
== END 2024-12-15 08:39 | disposition home or self-care (01) ==
LOC: HO.HHCL 08:38
PROVIDERS: Visit Provider Nurse Practitioner Primary Care
DX: R60.0 Localized edema (principal)
CPT/HCPCS: 36415; 83880

== ENCOUNTER 2024-12-20 12:49 | Inpatient (IN) | payer MEDICAID, SELFPAY ==
[2024-12-20] VITALS (8 sets, daily range): BP systolic 133–189; BP diastolic 50–77; PULSE 68–76; RESP 14–20; TEMP 36.6–36.8; O2SAT 96–100; BMI 29.5
--- NOTE | ~2024-12-20 | CT_ITS ---
CLINICAL HISTORY: confusion, low platelets CT head without contrast Comparison: CT/SR - CT HEAD/BRAIN WO IV CON - 11/07/24 00:25 EST Findings: No intra-axial mass, midline shift, hydrocephalus, or acute hemorrhage. No significant atrophy-like change or white matter disease. There is no sinus or mastoid fluid. The orbits are within normal limits. There is no acute fracture. IMPRESSION: 1. No acute intracranial findings. This document has been electronically signed by: Clnit Mayers MD on 12/20/2024 15:21:42
--- NOTE | 2024-12-20 13:12 | ECG_ITS ---
Test Reason : ams Blood Pressure : */* mmHG Vent. Rate : 72 BPM Atrial Rate : 72 BPM P-R Int : 128 ms QRS Dur : 82 ms QT Int : 410 ms P-R-T Axes : 30 25 76 degrees QTcB Int : 448 ms Normal sinus rhythm Normal ECG When compared with ECG of 02-Dec-2024 22:04, No significant change was found Referred By: Peggy Renee Electronically Signed By: Slick Hoover
[2024-12-20 13:48] LABS: MANUAL DIFF FLAG NO
--- NOTE | 2024-12-20 13:50 | ED.AMS ---
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 His niece also states he had IR procedure 5 days ago for his portal vein thrombus. He comes in again today after calling his niece last night and stating he felt off and she told him to take his lactulose. This AM he went to have pizza at his regular program and he told them he felt off and dizzy. No falls reported. He has no localizing signs. He states he took his medications and had 2 BM today. He has no fevers, no pain anywhere. He is a very poor historian. He states we have to ask his niece everything as he doesn't know much. Related Data Home Medications ?Medication ?Instructions ?Recorded ?Confirmed amlodipine 5 mg tablet 5 mg PO DAILY 12/03/24 12/09/24 ascorbic acid (vitamin C) 250 mg 250 mg PO DAILY 12/03/24 12/09/24 tablet clotrimazole 1 % topical cream 1 appl topical BID 12/03/24 12/09/24 ferrous sulfate 325 mg (65 mg 325 mg PO DAILY 12/03/24 12/09/24 iron) tablet furosemide 40 mg tablet 40 mg PO DAILY 12/03/24 12/09/24 Previous Rx's ?Medication ?Instructions ?Recorded carvedilol 3.125 mg tablet 3.125 mg PO BID #60 tabs 11/24/24 lactulose 10 gram/15 mL oral 30 g (45 mL) PO TID #1,500 mL 12/05/24 solution Allergies Allergy/AdvReac Type Severity Reaction Status Date / Time dicyclomine [From Bentyl] Allergy Unknown Verified 12/20/24 13:02 aspirin AdvReac Severe stomach Verified 12/20/24 13:02 bleeding NSAIDS (Non-Steroidal AdvReac Severe liver Verified 12/20/24 13:02 Anti-Inflamma concerns Review of Systems Review of Systems: ROS unable to be obtained due to altered mental status [facility] Past Medical History Medical History Hepatic encephalopathy Portal vein thrombosis Cirrhosis Splenic vein thrombosis Sepsis Cirrhosis of liver with ascites Abdominal pain Thrombocytopenia Pancytopenia Cirrhosis Hepatitis C virus infection Esophageal varices Pancytopenia Iron deficiency anemia Cirrhosis Hepatitis C HBP (high blood pressure) Surgical History S/P TIPS (transjugular intrahepatic portosystemic shunt) H/O left inguinal hernia repair H/O eye surgery History of esophagogastroduodenoscopy (EGD) H/O colonoscopy Family History Family History Maternal Grandmother Breast CA Uterus cancer Mother Primary lung cancer of unknown cell type Social History Social History Household Members: None Household Members Other:: group home Housing: Other Housing Other:: [address] in [place] Are you a primary floor care specialist to a significant other at home: No Do you presently have visiting nurse or other home services: No Comment: pt refusing alarm's Patient Tobacco Use Status: Never used Tobacco Tobacco use type: Cigarette Cigarette Packs Per Day: 1 Cigarettes Per Day: 5 Years Smoked: 30 Second Hand Smoke Exposure: No Substance Use Type: Crack/Cocaine and Marijuana Advance Directives: No Advance Directives Information Provided: No Advance Directives Date on File: 04/02/24 Do you have a plan to hurt others: No Plan service: No Current occupational status: retired Physical Exam ED Vital Signs: Vital Signs - 24 hr 12/20/24 12:58 12/20/24 15:01 Temperature 97.8 F 98 F Pulse Rate 75 71 Respiratory Rate 20 20 Blood Pressure 184/71 H 159/58 H Pulse Oximetry 100 100 Oxygen Delivery Method Room Air Room Air BMI result Body Mass Index 29.5 Appearance: Alert. Oriented X to person and place. No acute distress. Eyes: L pupil round and reactive to light. ENT: Pharynx normal. Neck: Normal inspection. Neck supple. CVS: Normal heart rate and rhythm. Pulses normal. Chest wall: IR site is c/d/i Respiratory: No respiratory distress. Breath sounds normal. Abdomen: Soft and nontender. no ascites noted on exam Skin: Skin warm and dry. Normal skin color. Normal skin turgor. Extremities: No lower extremity edema. No calf ttp Neuro: Oriented X 2. No motor deficit. No sensory deficit. CN2-12 intact Course Course Course Narrative: ammonia is elevated but he went down to 157 and reportedly mentation improved at this time CT head ordered to rule out any ICH Medications Administered Discontinued Medications Generic Name Dose Route Start Last Admin Trade Name Freq PRN Reason Stop Dose Admin Lactulose 30 gm 12/20/24 14:02 12/20/24 14:07 Lactulose 20 Gm/30 Ml Solution PO 12/20/24 14:03 30 gm ONCE ONE Administration Medical Decision Making Medical Decision Making [facility] Narrative: 64 yo male with PMH of cirrhosis s/p TIPs Oct 2024, chronic hep C, portal hypertension, esophageal varices EVBL 09/02, 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 He was found to have ammonia of 218 - at this time he is presenting again with confusion, dizziness and not himself. He has no fevers, no abdominal pain to palpation. The concern for hepatic encephalopathy is high. He has no signs of localizing neuro symptoms and no signs of head trauma. Will obtain labs, EKG, UA, start on lactulose. His platelets are chronically low but he denies trauma or a headache so I doubt ICH Differential Diagnosis Differential Diagnoses: The differential diagnosis associated with the presentation includes cirrhosis, med non compliance, hepatic encephalopathy Admission/Observation Consideration of admission/observation: Escalation of care including admission/observation considered admit for work up of confusion Consult Healthcare Provider Management of the patient was discussed with: Hospitalist (will admit) Lab Data [facility] Lab Attestation statement: I reviewed the patient's lab results. plts at baseline, no WBC count or abdominal pain to suggest SBP 12/20/24 13:44 12/20/24 13:44 Labs: Lab Results 12/20/24 Range/Units 13:44 WBC 2.3 L (4.8-10.8) X10*3/uL RBC 3.61 L (4.60-5.80) X10*6/uL Hgb 10.8 L (14.0-18.0) g/dl Hct 31.6 L (42.0-52.0) % MCV 87.5 (80.0-98.0) fL MCH 29.9 (27.0-33.0) pg MCHC 34.2 (31.0-36.0) g/dl RDW 16.3 H (11.0-16.0) % Plt Count 25 L D (160-400) X10*3/uL MPV Not Reportable Immature Gran % (Auto) 0.4 (0.0-0.4) % Neut % (Auto) 72.5 (45-73) % Lymph % (Auto) 19.1 L (20-40) % [place]range % (Auto) 7.1 (2-11) % Eos % (Auto) 0.9 (0-4) % Baso % (Auto) 0.0 (0-2) % Lymph # (Auto) 0.4 L (1.2-4.9) X10*3/uL [place] # (Auto) 0.2 (0.1-1.2) X10*3/uL Eos # (Auto) 0.0 (0.0-0.4) X10*3/uL Baso # (Auto) 0.0 (0.0-0.2) X10*3/uL Abs Immat Gran (auto) 0.01 (0.00-0.03) X10*3/uL Absolute Neuts (auto) 1.6 L (2.0-8.3) x10*3/uL Absolute Nucleated RBC 0.000 (0.0-0.012) X10*3/uL Nucleated RBC % (auto) 0.0 (0.0-0.2) /100WBC PT 15.9 H (10.9-12.4) SEC INR 1.4 H (0.9-1.1) Sodium 141 (135-145) mmol/L Potassium 4.3 (3.3-5.1) mmol/L Chloride 117 H (96-108) mmol/L Carbon Dioxide 22 (22-29) mmol/L Anion Gap 6 L (12-20) BUN 12 (9-16) mg/dL Creatinine 0.79 (0.5-1.4) mg/dL Estim Creat Clear Calc 116.5 Estimated GFR > 60 Random Glucose 116 H (60-115) mg/dL Calcium 8.5 (8.4-10.2) mg/dL Magnesium 1.9 (1.6-2.6) mg/dL Total Bilirubin 1.5 H (0.0-1.0) mg/dL Direct Bilirubin 0.5 (0.0-0.5) mg/dL AST 52 H (5-37) U/L ALT 33 (0-40) U/L Alkaline Phosphatase 141 H (39-117) U/L Ammonia 125 H (13-55) umol/L C-Reactive Protein 0.23 (< or = 0.50) mg/dL B-Natriuretic Peptide 140 H (<100) pg/mL Total Protein 6.6 (6.5-8.0) g/dL Albumin 3.0 L (3.5-5.0) g/dL Lipase 27 (8-78) U/L Independent Interpretation I performed an independent interpretation of an: EKG and CT Scan (normal ) Interpretation: Rate: 72 Rhythm: NSR [place]: normal Normal P waves. Normal ZAHRA. Normal QRS complex. ST T wave : no ANA, inverted t wave aVL qTC: 448 prior studies: no acute ischemia The study has been interpreted contemporaneously by me. . Independent Historian Clinical information obtained from an independent historian. History obtained from or confirmed by: EMS and Other (niece) External Record Review External record reviewed: Inpatient record Discharge Plan Discharge Clinical Impression: Acute hepatic encephalopathy Patient Disposition: Admitted As Inpatient Print Language: Armenian
--- OUTSIDE RECORDS SUMMARY | 2024-12-20 13:50 | XMS_ITS | Encounter Summary ---
Author Organization [employer] Address [address] [facility] 7t [place] [address] Care Team Providers Care Assistant Front Desk Manager Name Role Phone Leta Soto MD Primary Care Pro vider Yajaira Antonio Unavailable Encounter Details Date Type Department Care Team (Late st Contact Info) Description 11/11/2024 Telephone [facility] [address] [place] [address] Leta Soto MD [address] [place] [address] Social History Tobacco Use Types Packs/Day Years [...] PM EST Tc from amrita stiles case supervisor requesting the status on pt documented in this encounter Plan of Treatment Upcoming Encounters Date Type Department Care Team (Late st Contact Info) Description 01/29/2025 1:15 PM EDT Office Visit [facility] [address] [place] [address] Leta Soto MD [address] [place] [address] documented as of this encounter Goals Goal [...] documented as of this encounter Care Teams Assistant Front Desk Manager Relationship Specialty Start Date End Date Leta Soto MD [address] [place] [id number] PCP - General Internal Medicine 04/11/23 Yajaira Antonio [address] [place] [address] Drive 3rd [place] [address] Gastroenterology 09/04/24 documented as of this encounter
--- OUTSIDE RECORDS SUMMARY | 2024-12-20 13:50 | XMS_ITS ---
Author Organization [facility] Address 75 [facility] 7t [place] [address] Care Team Providers Care Corporate Webmaster Name Role Phone Leta Soto MD Primary [...]
--- OUTSIDE RECORDS SUMMARY | 2024-12-20 13:50 | XMS_ITS | Encounter Summary ---
Author Organization [employer] Address [address] [facility] 7t [place] [address] Care Team Providers Care Adjunct Teacher Name Role Phone Leta Soto MD Primary Care Pro vider PacoYajaira Unavailable Reason for Visit * Reason Comments Care Coordination C3CM- initial assess ment/ enrollment. Patient not available at time of call. Encounter Details Date Type Department Care Team (Latest Contact Info) Description 12/15/2024 Patient Outreach [facility] [address] [place] [address] Leta Soto MD [address] [place] [address] Care Coordination (C3CM- initial assessment/ enrollment. Patient not available at time of call.) Social History Tobacco Use Types Packs/Day Years Used Date Smoking Tobacco: Former Cigarettes Q uit: 11/26/2024 Passive Smoke Exposure: Current Smokeless Tobacco: Never Comments:Pt smokes since 15 y o until [...] PM EDT documented as of this encounter Progress Notes * Stanley Mckeon RN - 12/15/2024 3:55 PM EDT CM Stanley Mckeon RN placed outbound call to patient for agreed upon assessment time. Patient states he is not available a at this time. Agrees to contact the office later. CM provided him with direct extension. CM/CHW will attempt contact with patient to reschedule missed initial assessment. documented in this encounter Plan of Treatment Upcoming Encounters Date Type Department Care Team ([facility] st Contact Info) Description 01/29/2025 1:15 PM EDT Office Visit [facility] [address] [place] [address] Leta Soto MD [address] [place] [address] documented as of this encounter Goals Goal [...] documented as of this encounter Care Teams Adjunct Teacher Relationship Specialty Start Date End Date Leta Soto MD [address] [place] [phone] PCP - General Internal Medicine 04/11/23 Yajaira Antonio [address] [place] [address] 3rd [place] [address] Gastroenterology 09/04/24 documented as of this encounter
--- OUTSIDE RECORDS SUMMARY | 2024-12-20 13:50 | XMS_ITS | Encounter Summary ---
Author Organization [employer] Address [address] [facility] 7t [place] [address] Care Team Providers Care Wedding Planning Internship Name Role Phone Leta Soto MD Primary Care Pro vider Yajaira Antonio Unavailable Reason for Visit * Reason Onset Date Comments Results 12/15/2024 Encounter Details Date Type Department Care Team (Late st Contact Info) Description 12/15/2024 Telephone [facility] [address] [place] [address] Yamel Khanna, RN [address] [place] [address] Results Social History Tobacco Use Types Packs/Day Years [...] encounter Miscellaneous Notes * Telephone Encounter - Yamel Khanna RN - 12/15/2024 2:33 PM EDT Telephone call placed to pt utilizing [employer] #[id number] regarding below results and POC. 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 Informed labs slightly elevated. Advised to follow up with cardiology. Inquired if cardiology has called them yet. They denied this. Offered to tell them the phone number or mail it. Caregiver asked for both. Gave number for [facility] cards. Caregiver read back the number and states will call them [facility]. They both agreed with the plan and denied having any questions or concerns at this time. Mailed referral details as requested. * Telephone Encounter - Yamel Khanna RN - 12/15/2024 1:39 PM EDT ----- Message from Ann Piña sent at 12/15/2024 1:02 PM EDT ----- Please let patient know that his recent blood test was just slightly elevated. The plan will be forhim to follow-up with cardiology as we discussed for his SOB, chest tightness-if he has not heard from them please let us know. Referral was sent roughly 2 weeks ago. [facility] cardiology. documented in this encounter Plan of Treatment Upcoming Encounters Date Type Department Care Team (Late st Contact Info) Description 01/29/2025 1:15 PM EDT Office Visit [facility] [address] [place] [address] Leta Soto MD [address] [place] [phone] documented as of this encounter Goals Goal [...] documented as of this encounter Care Teams Wedding Planning Internship Relationship Specialty Start Date End Date Leta Soto MD [address] [place] [phone] PCP - General Internal Medicine 04/11/23 Yajaira Antonio [address] [place] [address] 3rd [place] [address] Gastroenterology 09/04/24 documented as of this encounter
--- OUTSIDE RECORDS SUMMARY | 2024-12-20 13:50 | XMS_ITS | Encounter Summary ---
Author Organization [employer] Address [address] [facility] 7t [place] [address] Care Team Providers Care Commercial Artist Lettering Name Role Phone Leta Soto MD Primary Care Pro vider PacoSimone stilesra Unavailable Reason for Visit * Reason Comments Care Coordination CM/CHW appt reminder Encounter Details Date Type Department Care Team (Latest Contact Info) Description 12/15/[address] [facility] [address] [place] [address] Leta Soto MD [address] [place] [address] Care Coordination (CM/CHW appt reminder) Social History Tobacco Use Types Packs/Day Years [...] as of this encounter Progress Notes * Chata Puente - 12/15/2024 10:09 AM EDT CHW Chata Puente placed outbound call to patient. No answer at this time. LVM introducing herselffrom [facility] CM Department, reminding patient of initial assessment appt via telephone on 12/15/24@1PM with CM Adult Complex Care program services. Requested call back to , as well as for any additional questions or concerns. documented in this encounter Plan of Treatment Upcoming Encounters Date Type Department Care Team ([facility] st Contact Info) Description 01/29/2025 1:15 PM EDT Office Visit [facility] [address] [place] [address] Leta Soto MD [address] [place] [address] documented as of this encounter [...] documented as of this encounter Care Teams Commercial Artist Lettering Relationship Specialty Start Date End Date Leta Soto MD [address] [place] [address] PCP - General Internal Medicine 04/11/23 Yajaira Antonio [address] [place] [address] 3rd [place] [address] Gastroenterology 09/04/24 documented as of this encounter
--- OUTSIDE RECORDS SUMMARY | 2024-12-20 13:50 | XMS_ITS | Encounter Summary ---
Author Organization [employer] Address [address] [facility] 7t [place] [address] Care Team Providers Care Groutman Name Role Phone Leta Soto MD Primary Care Pro vider Yajaira Antonio Unavailable Encounter Details Date Type Department Care Team (Late st Contact Info) Description 12/17/2023 Orders Only [facility] [address] [place] [address] Tatyana Mosquera FNP [address] [place] [address] Social History Tobacco Use Types Packs/Day Years [...] Description 01/29/2025 1:15 PM EDT Office Visit [facility] [address] [place] [address] Leta Soto MD [address] [place] [address] documented as of this encounter Goals Goal [...] documented as of this encounter Care Teams Groutman Relationship Specialty Start Date End Date Leta Soto MD [address] [place] [id number] PCP - General Internal Medicine 04/11/23 Yajaira Antonio [address]rd Floor [place], [place] [phone] Gastroenterology 09/04/24 documented as of this encounter
--- OUTSIDE RECORDS SUMMARY | 2024-12-20 13:50 | XMS_ITS | Clinical Summary ---
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 18 g 2 06/25/20 23 Active carvedilol (Coreg) 3.125 MG tablet Take 1 tablet by mouth with breakfast and with evening meal. 07/03/20 24 Active lactulose (Chronulac) 10 GM/15ML solution Take 20 g by mouth 3 times daily. Active clotrimazole (Lotrimin) 1 % creamIndications :Tinea pedis of both feet Apply topically 2 times daily for 28 days. 30 g 5 11/25/19 25 025 Active amLODIPine (Norvasc) 5 MG tabletIndication s:Essential hypertension Take 1 tablet (5 mg) by mouth Once per day. 30 tablet 11 11/25/19 25 026 Active furosemide (Lasix) 40 MG tabletIndication s:Bilateral leg edema Take 1 tablet (40 mg) by mouth in the morning. 30 tablet 11 11/28/19 25 026 Active furosemide (Lasix) 20 MG tabletIndication s:Other cirrhosis of liver (CMS/HCC) Take 1 tablet (20 mg) by mouth Once per day. 30 tablet 11 11/25/19 25 025 Discontin ued(Ineff ective) Active Problems Problem Noted Date Diagnosed Date [...] his advocate PLAN: 1. Follow up with [facility]: Not recommended for follow-up 2. Patient goal is be connected to services 3. Behavioral Recommendations a. Patient will engage in service once established b. Patient may return to [facility] for medical needs until a [...] Encounters Date Type Department Care Team Description 12/17/2024 Telephone [facility] MED[facility] [address] [place] [address] Leta Soto MD Care Management (C3CM- initial assessment/ enrollment #2. ) 12/15/2024 Patient Outreach [facility] [address] [place] [address] Leta Soto MD Care Coordination (C3CM- initial assessment/ enrollment. 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 religious ritual; Medication Changes 11/27/2024 2:30 PM EDT Office Visit [address] [address] Ann Piña ANP Healthcare maintenance (Primary Dx); Severe thrombocytopenia (CMS/HCC); Pancytopenia (CMS/HCC); Hepatic encephalopathy (CMS/HCC); Illiteracy; Cognitive impairment; Esophageal varices determined by endoscopy (CMS/HCC); Essential hypertension; Bilateral leg edema; Chest tightness 11/27/2024 Travel 11/27/2024 Patient Outreach [address] [address] Leta Soto MD 11/27/2024 Patient Outreach [address] [address] Leta Soto MD Care Coordination (CM/CHW Outreach) 11/27/2024 Patient Outreach [address] [address] Leta Soto MD Care Coordination (CHW Chart Review ) 11/27/2024 Patient Outreach [address] [address] Leta Soto MD Care Coordination ([facility]- chart review) 11/27/2024 Patient Outreach [facility] [place] [address] Leta Soto MD 11/26/2024 Telephone [facility] [place] [address] Leta Soto MD Results 11/24/2024 1:15 PM EDT Office Visit [facility] [place] [address] [facility] Other cirrhosis of liver (CMS/HCC) (Primary Dx); Pancytopenia (CMS/HCC); Essential hypertension; Lower extremity edema; Tinea pedis of both feet 11/24/2024 Orders Only [facility] [place] [address] [facility] 11/24/2024 Telephone [facility] [place] [place] [address] Leta Soto MD 11/21/2024 Population Health Risk Score [facility] () Department [address] [place] [phone] Provider, Population Health Generic 11/18/2024 Telephone [facility] [place] [address] Ysabel Omer MD CHART PREP 11/17/2024 Orders Only GENERIC EXTERNAL DATA DEPARTMENT Provider, Generic External Data 11/14/2024 Telephone [facility] [place] [address] Leta Soto MD Lab Orders 11/11/2024 Telephone [facility] [place] [address] Leta Soto MD 11/07/2024 Orders Only [facility] External Provider, [facility] 11/03/2024 Telephone [facility] [place] [address] Leta Soto MD No Show 10/31/2024 Orders Only [facility] External Provider, [facility] 10/28/2024 Orders Only GENERIC EXTERNAL DATA DEPARTMENT Provider, Generic External Data 10/28/2024 Refill [facility] MEDICINE [address] [place] [address] Leta Soto MD 10/23/2024 Refill [facility]INE [address] [place] [address] Kelly Dick, PharmD 10/22/2024 Patient Outreach [address] [address] Leta Soto MD Transition Of Care (Tcm) (HDF- Scheduled) 10/22/2024 Telephone [facility] MEDICINE [address] [place] [address] Kelly Dick PharmD 10/22/[address] [address] Leta Soto MD LICENSE AND PERMIT SPECIALIST Services (The patient requested LICENSE AND PERMIT SPECIALIST services. I called to ask what ADLs he needs assistance with, and he stated that he is unable to talk at this time, and asked for me to call back at about 10:30 today.); [facility] LICENSE AND PERMIT SPECIALIST Services (I called the patient regarding his request for LICENSE AND PERMIT SPECIALIST services. I asked what ADLs he needs assistance with, and he asked me to speak with Jonathan. Jonathan stated that he needs assistance with bathing, getting dressed, medications, housekeeping, cooking, and going to appointments. She stated that if he is approved, she will be his LICENSE AND PERMIT SPECIALIST. I informed her that once he is referred, he will be receiving a call from [facility], to set up an evaluation. She requested for [facility] to call her, because sometimes the pa) 10/13/2024 Telephone [facility] MEDICINE [address] [place] [address] Nhung Caicedo [place] december recall 10/08/2024 Orders Only [facility] External Provider, [facility] from Last 3 Months Immunizations Name [...] Description 01/29/2025 1:15 PM EDT Office Visit [facility] MEDICINE [address] [place], [place] [phone] Leta Soto MD [address] [place] [address] Health Maintenance Due Date Last Done Comments [...] 60-74 years 1-dose series) 2021 Depression Monitoring 04/24/2024 10/25/2023 , 04/09/2023 COVID-19 Vaccine (1 - 2023-2 5 [...] Procedure Name Priority Date/Time Associated Diagnosis Comments B TYPE NATRIURETIC PEPTIDE (BNP) Routine 12/15/2024 8:40 AM EDT Bilateral leg edema CT ABDOMEN PELVIS W AND WO CONTRAST [...] Recently Relevant to Health Maintenance Results * (ABNORMAL) B Type Natriuretic Peptide (BNP) (12/15/2024 8:40 AM EDT) B Type Natriuretic Peptide 123(H) <100 pg/mL [facility] Blood Venous blood specimen / Unknown 12/15/2024 8:40 AM EDT 12/15/2024 11:06 AM EDT [facility] LAB BLOOD ORDERABLES Final Resul t [facility] [address] [place] [phone] * CT Abdomen Pelvis w/ and w/o Contrast (12/03/2024 6:53 PM EDT) Anatomical Region Laterality Modality Body, Pelvis, Abdomen Computed T omography 12/03/2024 6:53 PM EDT Narrative 12/03/2024 6:55 PM EDT ? [facility] ?[address] ?[place] [address] ? CT Scan Report ? Signed ? Patient: Godfrey Mcmanus,Adelso ?MR#: [id number] ?? [id number] ? : 1960 ?Acct:[id number] ? Age/Sex: 64 / M ?ADM Date: 03/26/25 ? Loc: HO.IMC ?450-1 ? Attending Dr: Mikey Lopez MD ? Ordering Physician: Mikey Schmitt MD ?? Date of Service: 12/03/24 ?? Procedure(s): CT abdomen pelvis wo/w IV con ?? Accession Number(s): [id number] ? cc: Mikey Schmitt MD; Leta Soto MD ? Report Number: ?? [id number]: Total DLP = 1963.00 mGy-cm ? CLINICAL [...] by Siri Hwang MD in OV> ?12/03/24 1855 ? DD/ 1853 ? TD/TT: 12/03/241852 ? Booster Operator: ? Procedure Note Donotuseinterpreter, Image - 12/03/[address] [place] [address] [address] Scan Report Signed Patient: Yolanda Beebe#: [id number] : 2Acct:[id number] Age/Sex: 64 / MADM Date: 12/03/24 Loc: [facility] 450-[address]: Mikey Lopez MD Ordering Physician: Mikey Schmitt MD Date of Service: 12/03/24 Procedure(s): CT abdomen pelvis wo/w IV con Accession Number(s): [id number] cc: Mikey Schmitt MD; Leta Soto MD Report Number: [id number]: Total DLP = 1963.00 mGy-cm CLINICAL HISTORY: [...] in OV> 12/03/241854 DD/ 52 TD/TT: 12/03/241852 Booster Operator: [facility] External Provider IMG CT PROCEDURES Final Result * VASC Lower Extremity Venous Duplex Bilateral (12/03/2024 4:40 PM EDT) 12/03/2024 4:40 PM EDT Narrative [facility] - 12/03/2024 4:41 PM EDT ? [facility] ?[address] ?[place] [address] ? Ultrasound Report ? Signed ? Patient: Adelso Beebe ?MR#: [id number] ?? [id number] ? : 1960 ?Acct:[id number] ? Age/Sex: 64 / M ?ADM Date: 03/26/25 ? Loc: HO.IMC ?450-1 ? Attending Dr: Mikey Lopez MD ? Ordering Physician: Mikey Schmitt MD ?? Date of Service: 12/03/24 ?? Procedure(s): US venous duplex LE BI ?? Accession Number(s): [id number] ? cc: Mikey Schmitt MD; Leta Soto [...] DD/ 1640 ? TD/TT: 12/03/24 1640 ? Booster Operator: ? Procedure Note Donaaronter, Image - 12/03/2024 [place] [address] Ultrasound Report Signed Patient: Adelso BeebeMR#: [id number] : 1960cct:[id number] Age/Sex: 64 / MADM Date: 12/03/24 Loc: [facility] 450-[address]: Mikey Lopez MD Ordering Physician: Mikey Schmitt MD Date of Service: 12/03/24 Procedure(s): US venous duplex LE Accession Number(s): [id number] cc: Mikey Schmitt MD; Leta Soto MD [...] 12/03/24 1641 DD/ 1640 TD/TT: 12/03/24 1640 Booster Operator: [facility] External Provider CV VASC ULAR PROCEDURES Final Result Performing Organization Address City/[facility]/ZIP Co de Phone Number [facility] [address] [place] [address] * Slide Review (11/24/2024 2:30 PM EDT) Only the most recent of2 resultswithin the time period is included. Slide Review VERIFIED [facility] 11/24/2024 2:30 PM EDT 11/24/2024 4:24 PM EDT [facility] BLOOD ORDERABLES Final Re sult Performing Organization Address [facility] Co de Phone Number [facility] [address] [place] [address] [phone] * (ABNORMAL) CBC auto differential (11/24/2024 2:30 PM EDT) Only the most recent of2 resultswithin the time period is included. White Blood Count 2.0(L) 4.8 - 10.8 X10*3/uL [facility] Red Blood Count 3.63(L) 4.60 - 5.80 X10*6/uL [facility] Hemoglobin 10.5(L) 14.0 - 18.0 g/dl [facility] Hematocrit 32.3(L) 42.0 - 52.0 % [facility] Mean Corpuscular Volume 89.0 80.0 - 98.0 fL [facility] Mean Corpuscular Hemoglobin 28.9 27.0 - 33.0 pg [facility] Mean Corpuscular HGB Conc 32.5 31.0 - 36.0 g/dl [facility] Red Cell Distribution Width 17.8(H) 11.0 - 16.0 % [facility] Platelet Count 24(L) 160 - 400 X10*3/uL [facility] Mean Platelet Volume 11.8 9.4 - 12.4 fL [facility] Neutrophils Percent Auto 56.3 45 - 73 % [facility] Imm Gran Pct Auto 0.5(H) 0.0 - 0.4 % [facility] Lymphocytes Percent Auto 32.7 20 - 40 % [facility] Monocytes Percent Auto 9.0 2 - 11 % [facility] Eosinophils Percent Auto 1.0 0 - 4 % [facility] Basophils Percent Auto 0.5 0 - 2 % [facility] NRBC Pct Auto 0.0 0.0 - 0.2 /100WBC [facility] Neutrophils Absolute Auto 1.1(L) 2.0 - 8.3 x10*3/uL [facility] Imm Gran Abs Auto 0.01 0.00 - 0.03 X10*3/uL [facility] Lymphocytes Absolute Auto 0.7(L) 1.2 - 4.9 X10*3/uL [facility] Monocytes Absolute Auto 0.2 0.1 - 1.2 X10*3/uL [facility] Eosinophils Absolute Auto 0.0 0.0 - 0.4 X10*3/uL [facility] Basophils Absolute Auto 0.0 0.0 - 0.2 X10*3/uL [facility] NRBC Abs Auto 0.000 0.0 - 0.012 X10*3/uL [facility] Blood Venous blood specimen / Unknown 11/24/2024 2:30 PM EDT 11/24/2024 4:24 PM EDT [facility] BLOOD ORDERABLES Edited R esult - Final [facility] [address] [place] [phone] [phone] * (ABNORMAL) Comprehensive Metabolic Panel (11/24/2024 2:30 PM EDT) Only the most recent of2 resultswithin the time period is included. [facility] Sodium 144 135 - 145 mmol/L [facility] Potassium 4.9 3.3 - 5.1 mmol/L [facility] Chloride 116(H) 96 - 108 mmol/L [facility] Carbon Dioxide 25 22 - 29 mmol/L [facility] Anion Gap 8(L) 12 - 20 [facility] Urea Nitrogen (BUN) 12 9 - 16 mg/dL [facility] Creatinine, Serum 0.72 0.5 - 1.4 mg/dL [facility] Estimated Glomerular Filt Rate >60 [facility] Comment:Chronic Kidney Disea se: Estimated GFR < 60 mL/min/1.07m1Tyswrl Kidney Disease: Estimated GFR < 15 mL/min/1.73m2 Glucose 99 60 - 115 mg/dL [facility] Calcium 8.4 8.4 - 10.2 mg/dL [facility] Bilirubin, Total 1.6(H) 0.0 - 1.0 mg/dL [facility] Aspartate Amino Transferase 48(H) 5 - 37 U/L [facility] Alanine Aminotransferase 31 0 - 40 U/L [facility] Total Protein 6.7 6.5 - 8.0 g/dL [facility] Albumin Level 3.0(L) 3.5 - 5.0 g/dL [facility] Alkaline Phosphatase 145(H) 39 - 117 U/L [facility] Blood Venous blood specimen / Unknown 11/24/2024 2:30 PM EDT 11/24/2024 4:24 PM EDT [facility] BLOOD ORDERABLES Final Re sult [facility] [address] [place] [phone] * (ABNORMAL) Complete Blood Count Manual Diff (11/17/2024 1:55 PM EDT) White Blood Count 2.4(L) 4.8 - 10.8 X10*3/uL [facility] Red Blood Count 3.56(L) 4.60 - 5.80 X10*6/uL [facility] Hemoglobin 10.4(L) 14.0 - 18.0 g/dl [facility] Hematocrit 30.7(L) 42.0 - 52.0 % [facility] Mean Corpuscular Volume 86.2 80.0 - 98.0 fL [facility] Mean Corpuscular Hemoglobin 29.2 27.0 - 33.0 pg [facility] Mean Corpuscular HGB Conc 33.9 31.0 - 36.0 g/dl [facility] Red Cell Distribution Width 17.4(H) 11.0 - 16.0 % [facility] Platelet Count 22(L) 160 - 400 X10*3/uL [facility] NRBC Pct Auto 0.0 0.0 - 0.2 /100WBC [facility] NRBC Abs Auto 0.000 0.0 - 0.012 X10*3/uL [facility] Neutrophils % Manual 65 45 - 73 % [facility] Band Neutrophils Percent 0(L) 3 - 5 % [facility] Lymphocytes Percent Manual 23 20 - 40 % [facility] Monocytes Percent Manual 11 2 - 11 % [facility] EOSINOPHILS % MANUAL 1 0 - 4 % [facility] NEUTROPHILS ABSOLUTE MANUAL 1.6(L) 2.0 - 8.3 X10*3/uL [facility] LYMPHOCYTES ABSOLUTE MANUAL 0.6(L) 1.2 - 4.9 X10*3/uL [facility] MONOCYTES ABSOLUTE MANUAL 0.3 0.1 - 1.2 X10*3/uL [facility] Platelet Estimate NORMAL NORMAL [facility] Platelet Morphology Comment NORMAL [facility] RBC Morphology NOTED [facility] Ovalocytes 1+ (5-14) /OIF [facility] 11/17/2024 1:55 PM EDT 11/17/2024 4:00 PM EDT us Generic External Data Provider LAB BLOOD ORDERAB LES Final Result Performing Organization Address City/[facility]/ZIP Co de Phone Number [facility] [address] [place] [address] [phone] * T-SPOT??.TB (11/17/2024 1:55 PM EDT) [facility] T Spot TB Negative Negative [facility] Comment:A negative test resu lt [...] as aquantitative test. TS PANEL A 0 [facility] TS PANEL B 0 [facility] Negative Control Passed [facility] Positive Control Passed [facility] Comment:For additional infor tash, please refer tohttp://education.[employer]/faq/JKZ117(This link is being provided for informational/educational purposes only.)THIS TEST WAS PERFORMED AT:[employer] [id number] [place] [address]OOZCBUZDORCAS ELAM MD,PHD 11/17/2024 1:55 PM EDT 11/17/2024 4:07 PM EDT us Leta Dick MD LAB BLOOD ORDERAB LES Final Result Performing Organization Address City/[facility]/ZIP Co de Phone Number [facility] [address] [place] [address] [phone] * Ferritin (11/17/2024 1:55 PM EDT) Ferritin 52 20 - 250 ng/mL [facility] 11/17/2024 1:55 PM EDT 11/17/2024 4:07 PM EDT us Generic External Data Provider LAB BLOOD ORDERAB LES Final Result [facility] [address] [facility] [place] [address] [phone] * US Abdomen Limited (11/07/2024 9:25 AM EST) Only the most recent of2 resultswithin the time period is included. Anatomical Region Laterality Modality Abdomen Ultrasound 11/07/2024 9:25 AM EST Narrative 11/07/2024 9:55 AM EST ? [facility] ?[address] ?[place] [address] ? Ultrasound Report ? Signed ? Patient: Adelso Beebe ?MR#: [id number] ?? [id number] ? : 1960 ?Acct:[id number] ? Age/Sex: 63 / M ?ADM Date: 11/07/24 ? Loc: HO.[place] ?MEDSURG-3 ? Attending Dr: Ivis HAMILTON ? Ordering Physician: Lc Cohn MD ?? Date of Service: 11/07/24 ?? Procedure(s): US abdomen limited ?? Accession Number(s): [id number] ? cc: Leta Soto MD; Lc Cohn [...] MD in OV> ?11/07/24 0952 ? DD/ 0925 ? TD/TT: 11/07/24 0945 ? Booster Operator: MSM ? Procedure Note Donjuana, Image - 11/07/2024 [place] [address] Ultrasound Report Signed Patient: Yolanda Beebe#: [id number] : 2Acct:[id number] Age/Sex: 63 / MADM Date: 11/07/24 Loc: [facility]-[address]: Ivis HAMILTON Ordering Physician: Lc Cohn MD Date of Service: 11/07/24 Procedure(s): US abdomen limited Accession Number(s): [id number] cc: Leta Soto MD; Lc Cohn MD [...] in OV> 11/07/2452 DD/ 4 TD/TT: 11/07/2445 Booster Operator: KAZ [facility] External Provider IMG US PROCEDURES Final Result * CT Abdomen Pelvis w/ Contrast (11/07/2024 3:31 AM EST) Only the most recent of3 resultswithin the time period is included. Anatomical Region Laterality Modality Body, Pelvis, Abdomen Computed T omography 11/07/2024 3:31 AM EST Narrative 11/07/2024 3:33 AM EST ? [facility] ?[address] ?[place] [address] ? CT Scan Report ? Signed ? Patient: Adelso Beebe ?MR#: [id number] ?? [id number] ? : 1960 ?Acct:[id number] ? Age/Sex: 63 / M ?ADM Date: 02/28/25 ? Loc: HO.ED ? Attending Dr: ? Ordering Physician: Gilbert Gandara MD ?? Date of Service: 11/07/24 ?? Procedure(s): CT abdomen pelvis w IV con ?? Accession Number(s): [id number] ? cc: Gilbert Gandara MD; Leta Soto MD ? Report Number: ?? [id number]: Total DLP = 1166.00 mGy-cm ? CLINICAL [...] Eliud Spears MD in OV> ? 11/07/24 033 ? DD/ 0 ? TD/TT: 11/07/24330 ? Booster Operator: ? Procedure Note Donotuseinterpreter, Image - 11/07/[address] [address] [address] Scan Report Signed Patient: Adelso BeebeMR#: [id number] : 2Acct:[id number] Age/Sex: 63 / MADM Date: 11/07/24 Loc: HO.ED Attending Dr: Ordering Physician: Gilbert Gandara MD Date of Service: 11/07/24 Procedure(s): CT abdomen pelvis w IV con Accession Number(s): [id number] cc: Gilbert Gandara MD; Leta Soto MD Report Number: [id number]: Total DLP = 1166.00 mGy-cm CLINICAL HISTORY: [...] in OV> 11/07/24 033 DD/ 0 TD/TT: 11/07/24330 Booster Operator: [facility] External Provider IMG CT PROCEDURES Final Result * CT Chest w/ Contrast (11/07/2024 3:21 AM EST) Anatomical Region Laterality Modality Body, Chest Computed Tomogra phy 11/07/2024 3:21 AM EST Narrative 11/07/2024 3:23 AM EST ? [facility] ?[address] ?[place] [address] ? CT Scan Report ? Signed ? Patient: Adelso Beebe ?MR#: [id number] ?? [id number] ? : 1960 ?Acct:[id number] ? Age/Sex: 63 / M ?ADM Date: 11/07/24 ? Loc: HO.ED ? Attending Dr: ? Ordering Physician: Gilbert Gandara MD ?? Date of Service: 11/07/24 ?? Procedure(s): CT chest w IV con ?? Accession Number(s): [id number] ? cc: Gilbert Gandara MD; Leta Soto MD ? Report Number: ?? [id number]: Total DLP = ??483.00 mGy-cm ? CLINICAL [...] DD/ 0321 ? TD/TT: 11/07/24 0321 ? Booster Operator: ? Procedure Note Donotuseinterpreter, Image - 11/07/[address] [place] [address] [address] Scan Report Signed Patient: Adelso BeebeMR#: [id number] : 1960cct:[id number] Age/Sex: 63 / MADM Date: 11/07/24 Loc: HO.ED Attending Dr: Ordering Physician: Gilbert Gandara MD Date of Service: 11/07/24 Procedure(s): CT chest w IV con Accession Number(s): [id number] cc: Gilbert Gandara MD; Leta Soto MD Report Number: [id number]: Total DLP = 483.00 mGy-cm CLINICAL HISTORY: [...] MD in OV> 11/07/24322 DD/ 0 TD/TT: 02/28/25 0321 Booster Operator: us [facility] External Provider IMG CT PROCEDURES Final Result * CT Cervical Spine w/o Contrast (11/07/2024 2:25 AM EST) Anatomical Region Laterality Modality Spine, C-spine Computed Tomogra phy 11/07/2024 2:25 AM EST Narrative 11/07/2024 2:26 AM EST ? [facility] ?[address] ?[place], [place] [address] ? CT Scan Report ? Signed ? Patient: Adelso Beebe ?MR#: [id number] ?? [id number] ? : 1960 ?Acct:[id number] ? Age/Sex: 63 / M ?ADM Date: 11/07/24 ? Loc: HO.ED ? Attending Dr: ? Ordering Physician: Gilbert Gandara MD ?? Date of Service: 11/07/24 ?? Procedure(s): CT cervical spine wo IV con ?? Accession Number(s): [id number] ? cc: Gilbert Gandara MD; Leta Soto MD ? Report Number: ?? [id number]: Total DLP = ??344.00 mGy-cm ? CLINICAL HISTORY: fall and ams ? CT cervical spine without contrast ? Comparison: None ? Findings: ?? There is grade 1 anterolisthesis of C3 on C4, of C6 on C7, and also of C7 ?? on T1. Irregularity and sclerosis of the vertebral body endplates present ?? at C6-C7. Jqmq-kz-yollzgio degenerative endplate changes are present at ?? [...] MD in OV> ? 11/07/24225 ? DD/ 022 ? TD/TT: 11/07/24224 ? Booster Operator: ? Procedure Note Hiral, Image - 11/07/[address] [address] [address] Scan Report Signed Patient: Adelso BeebeMR#: [id number] : 2Acct:[id number] Age/Sex: 63 / MADM Date: 11/07/24 Loc: HO.ED Attending Dr: Ordering Physician: Gilbert Gandara MD Date of Service: 11/07/24 Procedure(s): CT cervical spine wo IV con Accession Number(s): [id number] cc: Gilbert Gandara MD; Leta Soto MD Report Number: [id number]: Total DLP = 344.00 mGy-cm CLINICAL HISTORY: fall and ams CT cervical spine without contrast Comparison: None Findings: There is grade 1 anterolisthesis of C3 on C4, of C6 on C7, and also of C7 on T1. Irregularity and sclerosis of the vertebral body endplates present at C6-C7. Fjwy-ys-otuytzmk degenerative endplate changes are present at the [...] in OV> 11/07/24225 DD/ 4 TD/TT: 11/07/24224 Booster Operator: [facility] External Provider IMG CT PROCEDURES Final Result * Urinalysis w/reflex microscopic (11/07/2024 2:08 AM EST) Color Urine Dark Yellow [facility] Appearance Urine Clear [facility] PH 6.0 5.0 - 9.0 [facility] Glucose Urine UA Negative Negative mg/dL [facility] Urine Blood Negative Negative [facility] Specific [place] - Urine 1.020 1.005 - 1.025 [facility] Urine Protein Negative Neg-Trace mg/dL [facility] Urine Ketones Trace Negative mg/dL [facility] Nitrite Urine Negative Negative [facility] Leukocyte Esterase Urine Negative Negative [facility] 11/07/2024 2:08 AM EST 11/07/2024 2:12 AM EST Narrative [facility] - 11/07/2024 2:17 AM EST [id number], Clean Catch us Generic External Data Provider LAB URINE ORDERAB LES Final Result [facility] [address] [place] [address] [phone] * CT Head w/o Contrast (11/07/2024 1:40 AM EST) Anatomical Region Laterality Modality Head, Neck Computed Tomogra phy 11/07/2024 1:40 AM EST Narrative 11/07/2024 1:41 AM EST ? [facility] ?[address] ?[place] [address] ? CT Scan Report ? Signed ? Patient: Adelso Beebe ?MR#: [id number] ?? [id number] ? : 1960 ?Acct:[id number] ? Age/Sex: 63 / M ?ADM Date: 11/07/24 ? Loc: HO.ED ? Attending Dr: ? Ordering Physician: Gilbert Gandara MD ?? Date of Service: 11/07/24 ?? Procedure(s): CT head/brain wo IV con ?? Accession Number(s): [id number] ? cc: Gilbert Gandara MD; Leta Soto MD ? Report Number: ?? [id number]: Total DLP = ??743.00 mGy-cm ? CLINICAL HISTORY: ams ? CT head without contrast ? Comparison: CT/OR/SR - CT HEAD/BRAIN WO IV CON - [...] DD/ 0140 ? TD/TT: 11/07/24 0140 ? Booster Operator: ? Procedure Note Donotuseinterpreter, Image - 11/07/[address] [place] [address] [address] Scan Report Signed Patient: Adelso BeebeMR#: [id number] : 1960cct:[id number] Age/Sex: 63 / MADM Date: 11/07/24 Loc: HO.ED Attending Dr: Ordering Physician: Gilbert Gandara MD Date of Service: 11/07/24 Procedure(s): CT head/brain wo IV con Accession Number(s): [id number] cc: Gilbert Gandara MD; Leta Soto MD Report Number: [id number]: Total DLP = 743.00 mGy-cm CLINICAL HISTORY: ams CT head without contrast Comparison: CT/OR/SR - CT HEAD/BRAIN WO IV CON - [...] in OV> 11/07/24140 DD/ 9 TD/TT: 11/07/24139 Booster Operator: [facility] External Provider IMG CT PROCEDURES Final Result * XR Thoracic Spine 2 Views (11/03/2024 1:05 PM EST) Anatomical Region Laterality Modality Spine, T-spine Radiographic Susy ging 11/03/2024 1:05 PM EST Narrative 11/03/2024 1:07 PM EST ? [facility] ?[address] ?[place] [address] ?XRay Report ? Signed ? Patient: Godfrey McmanusAdelso ?MR#: [id number] ?? [id number] ? : 1960 ?Acct:[id number] ? Age/Sex: 63 / M ?ADM Date: 10/31/24 ? Loc: HO.XRAY ? Attending Dr: Yajaira Antonio MD ? Ordering Physician: Yajaira Antonio MD ?? Date of Service: 10/31/24 ?? Procedure(s): XR thoracic spine 2V ?? Accession Number(s): [id number] ? cc: Leta Soto MD; Yajaira Antonio [...] DD/ 1305 ? TD/TT: 11/03/24 1305 ? Booster Operator: ? Procedure Note Mehreen Blackman - 11/03/2024 [facility] [address] [facility] [place] [address] XRay Report Signed Patient: Godfrey Yolanda Mcmanus#: [id number] : 2Acct:[id number] Age/Sex: 63 / MADM Date: 10/31/24 Loc: HO.CLOVERAY Attending Dr: Yajaira Antonio MD Ordering Physician: Yajaira Antonio MD Date of Service: 10/31/24 Procedure(s): XR thoracic spine 2V Accession Number(s): [id number] cc: Leta Soto MD; Yajaira Antonio MD [...] 11/03/24 1307 DD/ 1305 TD/TT: 11/03/24 1305 Booster Operator: [facility] External Provider IMG XR PROCEDURES Final Result * XR Lumbar Spine 2-3 Views (11/03/2024 12:26 PM EST) Anatomical Region Laterality Modality Spine, L-spine Radiographic Susy ging 11/03/2024 12:2 6 PM EST Narrative 11/03/2024 12:28 PM EST ? [facility] ?[address] ?[place] [address] ?XRay Report ? Signed ? Patient: Godfrey Mcmanus,Adelso ?MR#: [id number] ?? [id number] ? : 1960 ?Acct:[id number] ? Age/Sex: 63 / M ?ADM Date: 02/21/25 ? Loc: HO.XRAY ? Attending Dr: Yajaira Antonio MD ? Ordering Physician: Yajaira Antonio MD ?? Date of Service: 10/31/24 ?? Procedure(s): XR lumbar spine 2-3V ?? Accession Number(s): [id number] ? cc: Leta Soto MD; Yajaira Antonio [...] DD/ 1226 ? TD/TT: 11/03/24 1226 ? Booster Operator: ? Procedure Note Leelater, Image - 11/03/2024 [place] [address] XRay Report Signed Patient: Adelso BeebeMR#: [id number] : 1960cct:[id number] Age/Sex: 63 / MADM Date: 10/31/24 Loc: MAURA Attending Dr: Yajaira Antonio MD Ordering Physician: Yajaira Antonio MD Date of Service: 10/31/24 Procedure(s): XR lumbar spine 2-3V Accession Number(s): [id number] cc: Leta Soto MD; Yajaira Antonio MD [...] 11/03/24 1227 DD/ 1226 TD/TT: 11/03/24 1226 Booster Operator: [facility] External Provider IMG XR PROCEDURES Final Result * High Sensitivity Troponin I (10/28/2024 7:29 PM EST) Only the most recent of2 resultswithin the time period is included. TROPONIN I HIGH SENSITIVITY 5.2 <3.5 - 35.0 ng/L [facility] Comment:The Clifford high sens itivity Troponin-I results should beused in conjunction with other diagnostic information suchas ECG, clinical observations and information, and patientsymptoms to aid in the diagnosis of MD. 10/28/2024 7:29 PM EST 10/28/2024 7:32 PM EST Generic External Data Provider LAB BLOOD ORDERAB LES Final Result [facility] [address], [place] [id number] [phone] * XR Chest 2 Views (10/28/2024 6:02 PM EST) Anatomical Region Laterality Modality Chest Radiographic Susy ging 10/28/2024 6:02 PM EST Narrative 10/28/2024 6:05 PM EST ? [facility] ?[address] ?[place] [address] ?XRay Report ? Signed ? Patient: Godfrey Mcmanus,Adelso ?MR#: [id number] ?? [id number] ? : 1960 ?Acct:[id number] ? Age/Sex: 63 / M ?ADM Date: /18/25 ? Loc: HO.ED ? Attending Dr: ? Ordering Physician: Venice Morrison HOISTING ENGINEER [employer]LE [employer]IVING ?? Date of Service: 10/28/24 ?? Procedure(s): XR chest 2V ?? Accession Number(s): [id number] ? cc: Venice Morrison CNP; Leta Stoo MD ? CLINICAL HISTORY: chest pain ? [...] 1804 ? DD/ 1802 ? TD/TT: 10/28/24 180 ? Booster Operator: ? Procedure Note Donaaronter, Image - 10/28/[address] [address] XRay Report Signed Patient: Yolanda Beebe#: [id number] : 1960cct:[id number] Age/Sex: 63 / MADM Date: 10/28/24 Loc: HO.ED Attending Dr: Ordering Physician: Venice Morrison CNP Date of Service: 10/28/24 Procedure(s): XR chest 2V Accession Number(s): [id number] cc: Venice Morrison CNP; Leta Soto MD [...] in OV> 10/28/241803 DD/ 01 TD/TT: 10/28/241801 Booster Operator: [facility] External Provider IMG XR PROCEDURES Edited Result - Final * IR TIPS insertion (10/15/2024 1:30 PM EST) Anatomical Region Laterality Modality X-Ray Angiograph y 10/15/2024 1:30 PM EST Narrative 10/15/2024 4:32 PM EST ? [facility] ?[address] ?[place] [address] ?Interventional Radiology Rpt ? Signed ? Patient: Godfreydestiny Mcmanus,Adelso ?MR#: [id number] ?? [id number] ? : 1960 ?Acct:[id number] ? Age/Sex: 63 / M ?ADM Date: 10/08/24 ? Loc: HO.ICU ?252-1 ? Attending Dr: Zana Spear MD ? Ordering Physician: Yajaira Antonio MD ?? Date of Service: 10/15/24 ?? Procedure(s): IR TIPS insertion ?? Accession Number(s): [id number] ? cc: Leta Soto MD; Yajaira Antonio [...] was advanced to the IVC. A 10 Guyanese sheath was placed. ?? A hockey-stick catheter was used to catheterize the right hepatic vein. ?? This was confirmed with venography. The sheath was then advanced into ?? the right hepatic vein. A GiftLauncher TIPS set was then used to gain [...] obtained. An 8 mm x 8 cm [place] Viatorr TIPS was ?? then deployed from the hepatic vein to the portal vein. The TIPS stent ?? was postdilated with an 8 mm CROP GRAIN OR LIVESTOCK FARMER balloon. Portal venogram demonstrates ?? wide patency [...] DD/ 1330 ? TD/TT: 10/15/24 1625 ? Booster Operator: ? Procedure Note Mehreen Blackman - 10/16/[address] [address] Interventional Radiology Rpt Signed Patient: Adelso BeebeMR#: [id number] : 2Acct:[id number] Age/Sex: 63 / MADM Date: 10/08/24 Loc: HO.ICU 252-[address]: Zana Spear MD Ordering Physician: Yajaira Antonio MD Date of Service: 10/15/24 Procedure(s): IR TIPS insertion Accession Number(s): [id number] cc: Leta Soto MD; Yajaira Antonio MD [...] was advanced to the IVC. A 10 Guyanese sheath was placed. A hockey-stick catheter was [...] obtained. An 8 mm x 8 cm [place] Viatorr TIPS was then deployed from the hepatic vein to the portal vein. The TIPS stent was postdilated with an 8 mm CROP GRAIN OR LIVESTOCK FARMER balloon. Portal venogram demonstrates wide patency of [...] 10/15/24 1630 DD/ 1330 TD/TT: 10/15/24 1625 Booster Operator: [facility] External Provider IMG IR PROCEDURES Edited Result - Final * XR Chest 1 View (10/08/2024 9:42 PM EST) Anatomical Region Laterality Modality Chest Radiographic Susy ging 10/08/2024 9:42 PM EST Narrative 10/08/2024 9:43 PM EST ? [facility] ?[address] ?[place] [address] ?XRay Report ? Signed ? Patient: Godfrey Mcmanus,Adelso ?MR#: [id number] ?? [id number] ? : 1960 ?Acct:[id number] ? Age/Sex: 63 / M ?ADM Date: 10/08/24 ? Loc: HO.ED ? Attending Dr: ? Ordering Physician: Bhavana Christensen ?? Date of Service: 10/08/24 ?? Procedure(s): XR chest 1V ?? Accession Number(s): [id number] ? cc: Bhavana Christensen; Leta Soto MD [...] ? DD/ 41 ? TD/TT: 10/08/242141 ? Booster Operator: ? Procedure Note Donotuseinterpreter, Image - 10/08/[address] [address] XRay Report Signed Patient: Adelso BeebeMR#: [id number] : 1960cct:[id number] Age/Sex: 63 / MADM Date: 10/08/24 Loc: HO.ED Attending Dr: Ordering Physician: Bhavana Christensen Date of Service: 10/08/24 Procedure(s): XR chest 1V Accession Number(s): [id number] cc: Bhavana Christensen; Leta Soto MD CLINICAL [...] in OV> 10/08/242142 DD/ 41 TD/TT: 10/08/242141 Booster Operator: [facility] External Provider IMG XR PROCEDURES Edited Result - Final * Lipid Panel, Standard (04/06/2023 10:00 AM EDT) Triglycerides 94 mg/dL [facility] Comment:Desirable Triglyceri de: less than 150 mg/dLBorderline High Triglyceride 150-199 mg/dLHigh Triglyceride: 200-499 mg/dLVery High Triglyceride: greater than or equal to 5OO mg/dL Cholesterol 79 mg/dL [facility] Comment:Desirable Cholestero l: less than 200 mg/dLBorderline High Cholesterol: 200-239 mg/dLHigh Cholesterol: greater than 239 mg/dL LDL Cholesterol Calculated 36 mg/dl [facility] Comment:Desirable LDL: less than 100 mg/dLNear Optimal/Above Optimal LDL: 110- 129 mg/dLBorderline High LDL: 130-159 mg/dLHigh LDL: 160-189 mg/dLVery High LDL: greater than or equal to 190 mg/dL HDL Cholesterol 25 mg/dL [facility] Comment:Desirable HDL: great er than 40 mg/dL Note: This HDL assay may give artificially low results in patients with liver disease. Blood Venous blood specimen / Unknown 04/06/2023 10:00 AM EDT 04/06/2023 11:20 AM EDT Ann Piña 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
--- OUTSIDE RECORDS SUMMARY | 2024-12-20 13:51 | XMS_ITS ---
Author Organization [employer] Address [address] [place] [address] Care Team Providers Care Document Processor Name Role Phone Leta Soto MD Primary [...]
[2024-12-20 13:54] LABS: Eosinophils Percent Auto 0.9 % (0-4); Hematocrit 31.6 % (42.0-52.0); Hemoglobin 10.8 g/dl (14.0-18.0); Imm Gran Abs Auto 0.01 X10*3/uL (0.00-0.03); Imm Gran Pct Auto 0.4 % (0.0-0.4); Lymphocytes Absolute Auto 0.4 X10*3/uL (1.2-4.9); Lymphocytes Percent Auto 19.1 % (20-40); Mean Corpuscular HGB Conc 34.2 g/dl (31.0-36.0); Mean Corpuscular Hemoglobin 29.9 pg (27.0-33.0); Mean Corpuscular Volume 87.5 fL (80.0-98.0); Monocytes Absolute Auto 0.2 X10*3/uL (0.1-1.2); Monocytes Percent Auto 7.1 % (2-11); Neutrophils Absolute Auto 1.6 x10*3/uL (2.0-8.3); Neutrophils Percent Auto 72.5 % (45-73); Red Blood Count 3.61 X10*6/uL (4.60-5.80); Red Cell Distribution Width 16.3 % (11.0-16.0); SCAN SMEAR FLAG 1; White Blood Count 2.3 X10*3/uL (4.8-10.8)
[2024-12-20 13:55] LABS: INTERNATIONAL NORM RATIO 1.4 (0.9-1.1); Platelet Count 25 X10*3/uL (160-400); Prothrombin Time 15.9 SEC (10.9-12.4)
[2024-12-20 14:01] LABS: Ammonia 125 umol/L (13-55)
[2024-12-20] MEDS: Lactulose 20 GM/30 ML SOLUTION 30 GM PO ×2 (14:07→21:25)
[2024-12-20 14:08] LABS: Alanine Aminotransferase 33 U/L (0-40); Alkaline Phosphatase 141 U/L (39-117); Anion Gap 6 (12-20); Aspartate Amino Transferase 52 U/L (5-37); Bilirubin Direct 0.5 mg/dL (0.0-0.5); Bilirubin Total 1.5 mg/dL (0.0-1.0); Blood Urea Nitrogen 12 mg/dL (9-16); C Reactive Protein 0.23 mg/dL (< or = 0.50); Calcium 8.5 mg/dL (8.4-10.2); Carbon Dioxide 22 mmol/L (22-29); Chloride 117 mmol/L (96-108); Creatinine Clr Calc Pharmacy 116.5; Estimated Glomerular Filt Rate > 60; Glucose Random 116 mg/dL (60-115); Lipase 27 U/L (8-78); Magnesium 1.9 mg/dL (1.6-2.6); Potassium 4.3 mmol/L (3.3-5.1); Sodium 141 mmol/L (135-145); Total Protein 6.6 g/dL (6.5-8.0)
[2024-12-20 14:14] LABS: B Type Natriuretic Peptide 140 pg/mL (<100)
--- NOTE | 2024-12-20 15:43 | P.HPHOSP_ITS ---
History of Present Illness Date of Service: 12/20/24 Chief Complaint: dizziness 64-year-old patient with a history of liver cirrhosis presented to the ER with complaints of dizziness, confusion and tiredness. Apparently today he went to have pizza and he reported to someone that he was feeling dizzy? off?. He denied loss of consciousness, headache, chest pain, shortness of breath, nausea, vomiting. He reports compliance with his lactulose. Denies recent illness. He was discharged from [facility] on 12/05 and at that time also treated for hepatic encephalopathy and melena. He denies any blood in the stool this time. Head CT obtained due to platelet count of 25, no acute findings. Stable H&H, INR of 1.4, ammonia 125. Patient received a dose of lactulose 30 g in the ER. He will be admitted for further management and treatment of acute on chronic hepatic encephalopathy. Review of Systems 2 Review of Systems: Denies any recent fever chills or decrease in appetite respiratory denies any shortness of breath or cough cardiovascular denies any chest pain gastrointestinal denies any dysphagia abdominal pain nausea vomiting or diarrhea genitourinary denies any dysuria frequency or hematuria musculoskeletal denies any joint pain or swelling neuropsych denies any weakness or seizures all other systems reviewed are negative [facility] Medical History Hepatic encephalopathy Portal vein thrombosis Cirrhosis Splenic vein thrombosis Sepsis Cirrhosis of liver with ascites Abdominal pain Thrombocytopenia Pancytopenia Cirrhosis Hepatitis C virus infection Esophageal varices Pancytopenia Iron deficiency anemia Cirrhosis Hepatitis C HBP (high blood pressure) Family History Maternal Grandmother Breast CA Uterus cancer Mother Primary lung cancer of unknown cell type Surgical History S/P TIPS (transjugular intrahepatic portosystemic shunt) H/O left inguinal hernia repair H/O eye surgery History of esophagogastroduodenoscopy (EGD) H/O colonoscopy Social History Household Members: None Household Members Other:: prison Housing: Other Housing Other:: [address] in [place] Are you a primary healthcare insurance sales agent to a significant other at home: No Do you presently have visiting nurse or other home services: No Comment: pt refusing alarm's Patient Tobacco Use Status: Never used Tobacco Tobacco use type: Cigarette Cigarette Packs Per Day: 1 Cigarettes Per Day: 5 Years Smoked: 30 Second Hand Smoke Exposure: No Substance Use Type: Crack/Cocaine and Marijuana Advance Directives: No Advance Directives Information Provided: No Advance Directives Date on File: 04/02/24 Do you have a plan to hurt others: No Plan service: No Current occupational status: retired Meds Allergies Allergy/AdvReac Type Severity Reaction Status Date / Time dicyclomine [From Bentyl] Allergy Unknown Verified 12/20/24 13:02 aspirin AdvReac Severe stomach Verified 12/20/24 13:02 bleeding NSAIDS (Non-Steroidal AdvReac Severe liver Verified 12/20/24 13:02 Anti-Inflamma concerns Active Medications: Current Medications Acetaminophen (Acetaminophen 325 Mg Tablet) 650 mg PO Q6H PRN PRN Reason: Pain, Mild 1-3,fever,headache Calcium Carbonate (Calcium Carbonate 750 Mg Tab.Chew) 750 mg PO Q4H PRN PRN Reason: Heartburn Lactulose (Lactulose 20 Gm/30 Ml Solution) 30 gm PO TID [facility] Magnesium Hydroxide (Milk Of Magnesia 30 Ml Oral.Susp) 30 ml PO DAILY PRN PRN Reason: Constipation Melatonin (Melatonin 3 Mg Tablet) 6 mg PO BEDTIME PRN PRN Reason: Insomnia Ondansetron HCl (Ondansetron Hcl 4 Mg/2 Ml Vial) 4 mg IVPUSH Q8H PRN PRN Reason: Nausea and Vomiting Sodium Chloride (0.9 % Sodium Chloride Flush 3 Ml Syringe) 3 ml IVFLUSH QSHIFT [facility] Home Medications ?Medication ?Instructions ?Recorded ?Confirmed ?Last Taken ?Type amlodipine 5 mg tablet 5 mg PO DAILY 12/03/24 12/20/24 Unknown History ascorbic acid (vitamin C) 250 mg 250 mg PO DAILY 12/03/24 12/20/24 Unknown History tablet clotrimazole 1 % topical cream 1 appl topical BID 12/03/24 12/20/24 Unknown History ferrous sulfate 325 mg (65 mg 325 mg PO DAILY 12/03/24 12/20/24 Unknown History iron) tablet furosemide 40 mg tablet 40 mg PO DAILY 12/03/24 12/20/24 Unknown History Physical Exam 2 Vital Signs and Narrative: Vital Signs: Last Vital Signs Temp 98 F 12/20/24 15:01 Pulse 71 12/20/24 15:01 Resp 20 12/20/24 15:01 BP 159/58 H 12/20/24 15:01 Pulse Ox 100 12/20/24 15:01 O2 Del Method Room Air 12/20/24 15:01 BMI result Body Mass Index 29.5 Appearing in no acute distress lung sounds are clear to auscultation heart regular rate rhythm, clear S1, S2 positive bowel sounds, abdomen is soft, nontender neuro patient is alert x3, no focal deficits Right eye enucleation Results Labs 12/20/24 13:44 12/20/24 13:44 Labs: Laboratory Results - last 24 hr 12/20/24 13:44 MCV 87.5 MCH 29.9 MCHC 34.2 RDW 16.3 H Plt Count 25 L D MPV Not Reportable Immature Gran % (Auto) 0.4 Neut % (Auto) 72.5 Lymph % (Auto) 19.1 L [place] % (Auto) 7.1 Eos % (Auto) 0.9 Baso % (Auto) 0.0 Lymph # (Auto) 0.4 L [place] # (Auto) 0.2 Eos # (Auto) 0.0 Baso # (Auto) 0.0 Abs Immat Gran (auto) 0.01 Absolute Neuts (auto) 1.6 L Absolute Nucleated RBC 0.000 Nucleated RBC % (auto) 0.0 PT 15.9 H INR 1.4 H Anion Gap 6 L Estim Creat Clear Calc 116.5 Estimated GFR > 60 Random Glucose 116 H Calcium 8.5 Magnesium 1.9 Total Bilirubin 1.5 H Direct Bilirubin 0.5 AST 52 H ALT 33 Alkaline Phosphatase 141 H Ammonia 125 H C-Reactive Protein 0.23 B-Natriuretic Peptide 140 H Total Protein 6.6 Albumin 3.0 L Lipase 27 Assessment and Plan (1) Hyperammonemia: Status: Acute Plan 64-year-old man admitted with acute on chronic hepatic encephalopathy, history of tips procedure Acute on chronic hepatic metabolic encephalopathy History of decompensated cirrhosis Lactulose 30 g t.i.d. will add rifaximin Monitor neuro status 2-3 BMs daily GI consultation Pancytopenia with thrombocytopenia Secondary to chronic liver cirrhosis No active bleeding INR 1.4 Check stool occult if positive consider octreotide Hypertension Continue amlodipine Overweight. BMI 29.5 Discussed importance of weight management as this may be contributing to worsening of other comorbidities DVT prophylaxis with pneumatic compression boots due to thrombocytopenia Full code Quality Stroke Does the patient have a stroke diagnosis?: No VTE Prior VTE?: No VTE Risk Level:: Medical - moderate - high VTE Device Contraindication: N/A - Device Ordered VTE Drug Contraindication: Treatment Not Indicated
[2024-12-20 16:30] LABS: Appearance Urine Clear; Color Urine Yellow; Glucose Urine UA Negative (Negative); Leukocyte Esterase Urine Negative (Negative); Nitrite Urine Negative (Negative); PH 6.5 (5.0-9.0); Urine Blood Negative (Negative); Urine Ketones Negative (Negative); Urine Protein Negative (Neg-Trace)
--- NOTE | 2024-12-20 16:39 | PHA.MEDREC ---
Addendum entered by Marilynn Gifford RPh 12/20/24 17:20: med rec reviewed by [facility] Original Note: Pharmacy Consult ? Medication Reconciliation Pharmacy has completed the medication reconciliation. Spoke with patient and family member at bedside through an cathode washer. Family member reports picking up increased dose of lactulose after last discharge here in November. Patient said he did not know the names of his medications but has a medbox. Used claims and last discharge to confirm. He said he took his medications this morning.
--- NOTE | 2024-12-20 18:49 | PC.NURSE ---
placed NIKKI camera system on pt for safety
[2024-12-20] MEDS: carvediloL 3.125 MG TABLET PO (21:24)
[2024-12-20] MEDS: rifAXIMin 550 MG TABLET PO (21:24)
[2024-12-20] MEDS: Melatonin 3 MG TABLET 6 MG PO (21:25)
[2024-12-21] VITALS (10 sets, daily range): BP systolic 109–167; BP diastolic 54–96; PULSE 63–75; RESP 14–19; TEMP 36.4–37.4; O2SAT 96–100
[2024-12-21 06:04] LABS: Ammonia 68 umol/L (13-55)
[2024-12-21] MEDS: Omeprazole 20 MG CAPSULE.DR PO ×2 (06:11→15:46)
[2024-12-21 06:12] LABS: Alanine Aminotransferase 29 U/L (0-40); Albumin Level 2.8 g/dL (3.5-5.0); Alkaline Phosphatase 126 U/L (39-117); Anion Gap 7 (12-20); Aspartate Amino Transferase 45 U/L (5-37); Bilirubin Total 1.4 mg/dL (0.0-1.0); Blood Urea Nitrogen 12 mg/dL (9-16); Calcium 8.5 mg/dL (8.4-10.2); Carbon Dioxide 23 mmol/L (22-29); Chloride 116 mmol/L (96-108); Creatinine Clr Calc Pharmacy 119.5; Estimated Glomerular Filt Rate > 60; Glucose Random 86 mg/dL (60-115); Hematocrit 29.9 % (42.0-52.0); Hemoglobin 10.1 g/dl (14.0-18.0); Mean Corpuscular HGB Conc 33.8 g/dl (31.0-36.0); Mean Corpuscular Hemoglobin 29.4 pg (27.0-33.0); Mean Corpuscular Volume 87.2 fL (80.0-98.0); Mean Platelet Volume 12.7 fL (9.4-12.4); Potassium 4.2 mmol/L (3.3-5.1); Red Blood Count 3.43 X10*6/uL (4.60-5.80); Red Cell Distribution Width 16.1 % (11.0-16.0); Sodium 142 mmol/L (135-145)
[2024-12-21 06:14] LABS: Platelet Count 26 X10*3/uL (160-400); White Blood Count 2.3 X10*3/uL (4.8-10.8)
[2024-12-21] MEDS: amLODIPine Besylate 5 MG TABLET PO (07:54)
[2024-12-21] MEDS: 0.9 % Sodium Chloride Flush 3 ML SYRINGE IVFLUSH ×3 (07:54→20:20)
[2024-12-21] MEDS: Ascorbic Acid 250 MG TABLET PO (07:54)
[2024-12-21] MEDS: Furosemide 40 MG TABLET PO (07:54)
[2024-12-21] MEDS: Ferrous Sulfate 324 MG TABLET.DR PO (07:55)
[2024-12-21] MEDS: carvediloL 3.125 MG TABLET PO ×2 (07:55→20:14)
[2024-12-21] MEDS: rifAXIMin 550 MG TABLET PO ×2 (07:55→20:14)
[2024-12-21] MEDS: Lactulose 20 GM/30 ML SOLUTION 30 GM PO ×3 (07:55→20:13)
--- NOTE | 2024-12-21 08:00 | PC.NURSE ---
patient eating breakfast, medicated per the MAR. takes medications whole with water
--- NOTE | 2024-12-21 08:18 | PM.GICN ---
History of Present Illness Data of Consult Service Date: 12/21/24 Requesting physician: Deanna Puente Primary Care Provider: Leta Dick MD [facility] Reason for consult: Hepatic encephalopathy 64 YM with ESLD due to past Hep C (treated) history of large varices status post EVBL 08/2024, s/p TIPS 10/2024 seen at [facility] ED on 12/20/24 with dizziness, confusion and tiredness. Pt went to have pizza at his regular program and he told them he felt off and dizzy. No falls reported. He denied loss of consciousness, headache, chest pain, shortness of breath, nausea, vomiting. He reported he has been compliant with his lactulose. Denies recent illness. He was discharged from [facility] on 12/05 and at that time also treated for hepatic encephalopathy and melena. He denies any blood in the stool this time. Head CT obtained due to platelet count of 25, no acute findings. Lab showed stable H&H, INR of 1.4, ammonia 125. Patient received a dose of lactulose 30 g in the ER and was admitted for further management and treatment of acute on chronic hepatic encephalopathy. 12/03/[address] SCAN SHOWED: 1. Stable nonocclusive thrombus in the main portal vein inclusive of the splenoportal confluence. Grossly patent TIPS shunt. 2. Stable splenomegaly. 3. Cirrhotic liver morphology. No ascites. 4. No obstructive or acute inflammatory changes in the gastrointestinal and genitourinary tracts. 5. Diverticulosis coli. 6. Tiny left pleural effusion. Bilateral lower lobe septal thickening secondary to inflammation /infection or fluid overload. Review of Systems Review of Systems: Denies any recent fever chills or decrease in appetite respiratory denies any shortness of breath or cough cardiovascular denies any chest pain gastrointestinal denies any dysphagia abdominal pain nausea vomiting or diarrhea genitourinary denies any dysuria frequency or hematuria musculoskeletal denies any joint pain or swelling neuropsych denies any weakness or seizures all other systems reviewed are negative [facility] Past Medical History Medical History Hepatic encephalopathy Portal vein thrombosis Cirrhosis Splenic vein thrombosis Sepsis Cirrhosis of liver with ascites Abdominal pain Thrombocytopenia Pancytopenia Cirrhosis Hepatitis C virus infection Esophageal varices Pancytopenia Iron deficiency anemia Cirrhosis Hepatitis C HBP (high blood pressure) Family History Family History Maternal Grandmother Breast CA Uterus cancer Mother Primary lung cancer of unknown cell type Surgical History Surgical History S/P TIPS (transjugular intrahepatic portosystemic shunt) H/O left inguinal hernia repair H/O eye surgery History of esophagogastroduodenoscopy (EGD) H/O colonoscopy Social History Social History Household Members: Other Household Members Other:: half-way Housing: Other Housing Other:: Half-Way Are you a primary child care center assistant director to a significant other at home: No Do you presently have visiting nurse or other home services: No Comment: pt refusing alarm's Patient Tobacco Use Status: Never used Tobacco Tobacco use type: Cigarette Cigarette Packs Per Day: 1 Cigarettes Per Day: 5 Years Smoked: 30 Second Hand Smoke Exposure: No Substance Use Type: Crack/Cocaine and Marijuana Advance Directives Date on File: 04/02/24 service: No Current occupational status: retired [employer] Allergies Allergy/AdvReac Type Severity Reaction Status Date / Time dicyclomine [From Bentyl] Allergy Unknown Verified 12/20/24 13:02 aspirin AdvReac Severe stomach Verified 12/20/24 13:02 bleeding NSAIDS (Non-Steroidal AdvReac Severe liver Verified 12/20/24 13:02 Anti-Inflamma concerns Active Medications: Current Medications Acetaminophen (Acetaminophen 325 Mg Tablet) 650 mg PO Q6H PRN PRN Reason: Pain, Mild 1-3,fever,headache Amlodipine Besylate (Amlodipine Besylate 5 Mg Tablet) 5 mg PO DAILY [facility]; Protocol Last Admin: 12/21/24 07:54 Dose: 5 mg Ascorbic Acid (Ascorbic Acid 250 Mg Tablet) 250 mg PO DAILY [facility] Last Admin: 12/21/24 07:54 Dose: 250 mg Calcium Carbonate (Calcium Carbonate 750 Mg Tab.Chew) 750 mg PO Q4H PRN PRN Reason: Heartburn Carvedilol (Carvedilol 3.125 Mg Tablet) 3.125 mg PO BID [facility]; Protocol Last Admin: 12/21/24 07:55 Dose: 3.125 mg Ferrous Sulfate (Ferrous Sulfate 324 Mg Tablet.Dr) 324 mg PO DAILY [facility] Last Admin: 04/13/25 07:55 Dose: 324 mg Furosemide (Furosemide 40 Mg Tablet) 40 mg PO DAILY [facility]; Protocol Last Admin: 12/21/24 07:54 Dose: 40 mg Lactulose (Lactulose 20 Gm/30 Ml Solution) 30 gm PO TID [facility] Last Admin: 12/21/24 07:55 Dose: 30 gm Magnesium Hydroxide (Milk Of Magnesia 30 Ml Oral.Susp) 30 ml PO DAILY PRN PRN Reason: Constipation Melatonin (Melatonin 3 Mg Tablet) 6 mg PO BEDTIME PRN PRN Reason: Insomnia Last Admin: 12/20/24 21:25 Dose: 6 mg Omeprazole (Omeprazole 20 Mg Capsule.Dr) 20 mg PO BID@0630,1630 [facility] Last Admin: 12/21/24 06:11 Dose: 20 mg Ondansetron HCl (Ondansetron Hcl 4 Mg/2 Ml Vial) 4 mg IVPUSH Q8H PRN PRN Reason: Nausea and Vomiting Rifaximin (Rifaximin 550 Mg Tablet) 550 mg PO BID [facility] Last Admin: 12/21/24 07:55 Dose: 550 mg Sodium Chloride (0.9 % Sodium Chloride Flush 3 Ml Syringe) 3 ml IVFLUSH QSHIFT [facility] Last Admin: 12/21/24 07:54 Dose: 3 ml Home Medications ?Medication ?Instructions ?Recorded ?Confirmed ?Last Taken ?Type amlodipine 5 mg tablet 5 mg PO DAILY 12/03/24 12/20/24 Unknown History ascorbic acid (vitamin C) 250 mg 250 mg PO DAILY 12/03/24 12/20/24 Unknown History tablet clotrimazole 1 % topical cream 1 appl topical BID 12/03/24 12/20/24 Unknown History ferrous sulfate 325 mg (65 mg 325 mg PO DAILY 12/03/24 12/20/24 Unknown History iron) tablet furosemide 40 mg tablet 40 mg PO DAILY 12/03/24 12/20/24 Unknown History Physical Exam Vital Signs: Vital Signs: Last Vital Signs Temp 97.6 F 12/21/24 07:53 Pulse 74 12/21/24 07:53 Resp 14 12/21/24 07:53 BP 143/67 H 12/21/24 07:53 Pulse Ox 100 12/21/24 07:53 O2 Del Method Room Air 12/21/24 07:53 BMI result Body Mass Index 29.5 Const: General: no acute distress Nutritional Appearance: overweight Orientation/consciousness: patient oriented x3 Limitations: language barrier HEENT: Head: Yes normal to inspection Ears: hearing grossly normal bilaterally Eyes: Sclerae: sclerae normal Pupils: Equal, round and reactive pupils present Neck: Neck: Yes normal visual inspection Chest: Chest palpation & inspection: normal inspection of the chest Resp: Effort & Inspection: normal respiratory effort Auscultation: clear to auscultation bilaterally Cardio: Palpation: normal PMI Rate: regular rate Rhythm: regular rhythm Heart sounds: S1 normal heart sound present, S2 normal heart sound present and no murmurs GI: Palpation (GI): Soft to palpation, nontender and No hepatosplenomegaly present Auscultation: normal bowel sounds Rectal Exam - Male: Yes deferred Skin: General skin exam: no rashes or lesions noted Neuro: General: patient oriented x3, gait normal and moves all extremities Cranial nerves: Yes Equal, round and reactive pupils present Psych: Appearance: grossly normal Mental Status: mental status grossly normal Results Labs 12/21/24 05:36 12/22/24 08:37 Labs: Short CBC 12/20/24 12/21/24 Range/Units 13:44 05:36 WBC 2.3 L 2.3 L (4.8-10.8) X10*3/uL Hgb 10.8 L 10.1 L (14.0-18.0) g/dl Hct 31.6 L 29.9 L (42.0-52.0) % Plt Count 25 L D 26 L (160-400) X10*3/uL BMP 12/20/24 12/21/24 13:44 05:36 Sodium 141 142 Potassium 4.3 4.2 Chloride 117 H 116 H Carbon Dioxide 22 23 BUN 12 12 Creatinine 0.79 0.77 Calcium 8.5 8.5 Liver Function 12/20/24 12/21/24 Range/Units 13:44 05:36 Total Bilirubin 1.5 H 1.4 H (0.0-1.0) mg/dL Direct Bilirubin 0.5 (0.0-0.5) mg/dL AST 52 H 45 H (5-37) U/L ALT 33 29 (0-40) U/L Alkaline Phosphatase 141 H 126 H (39-117) U/L Albumin 3.0 L 2.8 L (3.5-5.0) g/dL Urine 12/20/24 Range/Units 16:22 Urine Color Yellow Urine Appearance Clear Urine pH 6.5 (5.0-9.0) Ur Specific [place] 1.020 (1.005-1.025) Urine Protein Negative (Neg-Trace) mg/dL Urine Glucose (UA) Negative (Negative) mg/dL Assessment and Plan (1) Portal vein thrombosis: Status: Acute (2) S/P TIPS (transjugular intrahepatic portosystemic shunt): Status: Acute (3) Cirrhosis of liver: Status: Acute (4) Acute hepatic encephalopathy: Status: Acute Plan 64 YM with ESLD due to past Hep C (treated) history of large varices status post EVBL 08/2024, s/p TIPS 10/2024 admitted to [facility] on 12/20/24 with dizziness, confusion and tiredness and elevated ammonia levels He reported he has been compliant with his lactulose though this is questionable. The patient is followed by Dr. Antonio in the GI clinic Lab showed stable H&H, INR of 1.4, ammonia 125. Patient received a dose of lactulose 30 g in the ER and was admitted for further management and treatment of acute on chronic hepatic encephalopathy. Hepatic encephalopathy, likely caused by non compliance with meds in the setting of TIPS and PVT, no evidence of active infection, no ascites or pneumonia, UTI. No evidence of active GI bleeding, or head lesions, Pt is alert today and fu ammonia level decreased to 68 Tox screen was negative during past admission Pt has pancytopenia related to splenomegaly versus bone marrow involvement RECOMMENDATIONS: 1. Continue lactulose 30 ml three times a day (titrate to 2-3 BMs a day) and rifaximin 550 mg twice daily for hepatic encephalopathy 2. Continue low sodium diet Pt can be discharged in the am and follow up with Dr Antonio as an outpatient Procedures Date of Service Date of Service: 12/22/24
--- NOTE | 2024-12-21 09:47 | HO.PM.IMPN ---
Subjective Subjective Date of Service: 12/22/24 Interval History: Follow up dizziness, hepatic encephalopathy feeling better today but still with dizziness Physical Exam Vital Signs: Vital Signs: Last Vital Signs Temp 98.3 F 12/21/24 09:02 Pulse 70 12/21/24 09:02 Resp 18 12/21/24 09:02 BP 136/58 L 12/21/24 09:02 Pulse Ox 100 12/21/24 09:02 O2 Del Method Room Air 12/21/24 09:02 BMI result Body Mass Index 29.5 Appearing in no acute distress lung sounds are clear to auscultation heart regular rate rhythm, clear S1, S2 positive bowel sounds, abdomen is soft, nontender neuro patient is alert x3, no focal deficits Objective Data Active Medications Acetaminophen (Acetaminophen 325 Mg Tablet) 650 mg PO Q6H PRN PRN Reason: Pain, Mild 1-3,fever,headache Amlodipine Besylate (Amlodipine Besylate 5 Mg Tablet) 5 mg PO DAILY [facility]; Protocol Last Admin: 12/21/24 07:54 Dose: 5 mg Documented By: ZHANNA Ascorbic Acid (Ascorbic Acid 250 Mg Tablet) 250 mg PO DAILY [facility] Last Admin: 12/21/24 07:54 Dose: 250 mg Documented By: ZHANNA Calcium Carbonate (Calcium Carbonate 750 Mg Tab.Chew) 750 mg PO Q4H PRN PRN Reason: Heartburn Carvedilol (Carvedilol 3.125 Mg Tablet) 3.125 mg PO BID [facility]; Protocol Last Admin: 12/21/24 07:55 Dose: 3.125 mg Documented By: ZHANNA Ferrous Sulfate (Ferrous Sulfate 324 Mg Tablet.) 324 mg PO DAILY [facility] Last Admin: 12/21/24 07:55 Dose: 324 mg Documented By: ZHANNA Furosemide (Furosemide 40 Mg Tablet) 40 mg PO DAILY [facility]; Protocol Last Admin: 12/21/24 07:54 Dose: 40 mg Documented By: ZHANNA Lactulose (Lactulose 20 Gm/30 Ml Solution) 30 gm PO TID [facility] Last Admin: 12/21/24 07:55 Dose: 30 gm Documented By: ZHANNA Magnesium Hydroxide (Milk Of Magnesia 30 Ml Oral.Susp) 30 ml PO DAILY PRN PRN Reason: Constipation Melatonin (Melatonin 3 Mg Tablet) 6 mg PO BEDTIME PRN PRN Reason: Insomnia Last Admin: 12/20/24 21:25 Dose: 6 mg Documented By: ALDAIR Omeprazole (Omeprazole 20 Mg Capsule.Dr) 20 mg PO BID@0630,1630 [facility] Last Admin: 12/21/24 06:11 Dose: 20 mg Documented By: ALDAIR Ondansetron HCl (Ondansetron Hcl 4 Mg/2 Ml Vial) 4 mg IVPUSH Q8H PRN PRN Reason: Nausea and Vomiting Rifaximin (Rifaximin 550 Mg Tablet) 550 mg PO BID [facility] Last Admin: 12/21/24 07:55 Dose: 550 mg Documented By: ZHANNA Sodium Chloride (0.9 % Sodium Chloride Flush 3 Ml Syringe) 3 ml IVFLUSH QSHIFT [facility] Last Admin: 12/21/24 07:54 Dose: 3 ml Documented By: ZHANNA Labs 12/21/24 05:36 12/21/24 05:36 Labs: Laboratory Results - last 24 hr 12/20/24 12/20/24 12/21/24 13:44 16:22 05:36 MCV 87.5 87.2 MCH 29.9 29.4 MCHC 34.2 33.8 RDW 16.3 H 16.1 H Plt Count 25 L D 26 L MPV Not Reportable 12.7 H Immature Gran % (Auto) 0.4 Neut % (Auto) 72.5 Lymph % (Auto) 19.1 L [place] % (Auto) 7.1 Eos % (Auto) 0.9 Baso % (Auto) 0.0 Lymph # (Auto) 0.4 L [place] # (Auto) 0.2 Eos # (Auto) 0.0 Baso # (Auto) 0.0 Abs Immat Gran (auto) 0.01 Absolute Neuts (auto) 1.6 L Absolute Nucleated RBC 0.000 0.000 Nucleated RBC % (auto) 0.0 0.0 PT 15.9 H INR 1.4 H Anion Gap 6 L 7 L Estim Creat Clear Calc 116.5 119.5 Estimated GFR > 60 > 60 Random Glucose 116 H 86 Calcium 8.5 8.5 Magnesium 1.9 Total Bilirubin 1.5 H 1.4 H Direct Bilirubin 0.5 AST 52 H 45 H ALT 33 29 Alkaline Phosphatase 141 H 126 H Ammonia 125 H 68 H C-Reactive Protein 0.23 B-Natriuretic Peptide 140 H Total Protein 6.6 6.0 L Albumin 3.0 L 2.8 L Lipase 27 Urine Color Yellow Urine Appearance Clear Urine pH 6.5 Ur Specific [place] 1.020 Urine Protein Negative Urine Glucose (UA) Negative Urine Ketones Negative Urine Blood Negative Urine Nitrite Negative Ur Leukocyte Esterase Negative Assessment and Plan (1) Syncope: Status: Resolved (2) Acute hepatic encephalopathy: Status: Resolved Plan 64-year-old man admitted with acute on chronic hepatic encephalopathy, history of tips procedure Acute on chronic hepatic metabolic encephalopathy History of decompensated cirrhosis Lactulose 30 g t.i.d. rifaximin added Monitor neuro status 2-3 BMs daily GI consultation Pancytopenia with thrombocytopenia Secondary to chronic liver cirrhosis No active bleeding INR 1.4 Check stool occult if positive consider octreotide Hypertension Continue amlodipine Overweight. BMI 29.5 Discussed importance of weight management as this may be contributing to worsening of other comorbidities DVT prophylaxis with pneumatic compression boots due to thrombocytopenia Full code Quality Stroke Does the patient have a stroke diagnosis?: No VTE Prior VTE?: No VTE Risk Level:: Medical - moderate - high VTE Device Contraindication: N/A - Device Ordered VTE Drug Contraindication: Treatment Not Indicated
--- NOTE | 2024-12-21 14:06 | MHC.CM.PN ---
Pt is SSO, he lives at [address], PCP is confirmed: Dr. Yuriy Dick, HCP on file and confirmed: Eugenia Dick. Pt. attend adult day health at [facility]. He is able to arrange a ride home at [place]. DCP: home, resume services. CM to follow for DC needs.
[2024-12-21 18:37] LABS: OBS Int Ctl Valid YES; OBS1 POSITIVE (NEGATIVE)
[2024-12-22] VITALS: BP 109/55; PULSE 69; RESP 16; TEMP 37; O2SAT 97
[2024-12-22 03:55] VITALS: BP 108/55; PULSE 69; RESP 16; TEMP 37; O2SAT 98
[2024-12-22] MEDS: Omeprazole 20 MG CAPSULE.DR PO (06:24)
[2024-12-22 07:27] VITALS: BP 120/58; PULSE 69; RESP 18; TEMP 37; O2SAT 94
[2024-12-22 08:54] LABS: Ammonia 86 umol/L (13-55)
[2024-12-22 08:57] LABS: Anion Gap 8 (12-20); Blood Urea Nitrogen 15 mg/dL (9-16); Calcium 8.5 mg/dL (8.4-10.2); Carbon Dioxide 22 mmol/L (22-29); Chloride 113 mmol/L (96-108); Creatinine Clr Calc Pharmacy 116.5; Estimated Glomerular Filt Rate > 60; Glucose Random 86 mg/dL (60-115); Potassium 4.3 mmol/L (3.3-5.1); Sodium 139 mmol/L (135-145)
[2024-12-22] MEDS: Ferrous Sulfate 324 MG TABLET.DR PO (08:58)
[2024-12-22] MEDS: Ascorbic Acid 250 MG TABLET PO (08:58)
[2024-12-22] MEDS: rifAXIMin 550 MG TABLET PO (08:58)
[2024-12-22] MEDS: carvediloL 3.125 MG TABLET PO (08:58)
[2024-12-22] MEDS: Furosemide 40 MG TABLET PO (08:58)
[2024-12-22] MEDS: amLODIPine Besylate 5 MG TABLET PO (08:58)
[2024-12-22] MEDS: Lactulose 20 GM/30 ML SOLUTION 30 GM PO (09:08)
[2024-12-22] MEDS: 0.9 % Sodium Chloride Flush 3 ML SYRINGE IVFLUSH (09:12)
--- NOTE | 2024-12-22 10:26 | MHC.CM.PN ---
PT MEDICALLY CLEARED FOR DC HOME SELF-CARE AND RESUMP OF ARE ADULT DAY CARE M-F, PT TO ARRANGE RIDE HOME.
--- NOTE | 2024-12-22 10:58 | P.DS_ITS ---
DS: Providers Provider Date of Service: 12/22/24 Date of admission: 12/20/24 15:39 Date of discharge: 12/22/24 Primary care physician: Leta Dick MD Consults: 12/20/24 15:42 Consult to Gastroenterology Routine Consulting Provider: Suni Basilio Reason for consultation: hepatic encephalopathy DS: Diagnosis Discharge Diagnosis (1) Syncope: Status: Resolved (2) Acute hepatic encephalopathy: Status: Resolved DS: Summary Hospital Course Hospital Course: History and physical as per admitting provider. 64-year-old patient with a history of liver cirrhosis presented to the ER with complaints of dizziness, confusion and tiredness. Apparently today he went to have pizza and he reported to someone that he was feeling dizzy? off?. He denied loss of consciousness, headache, chest pain, shortness of breath, nausea, vomiting. He reports compliance with his lactulose. Denies recent illness. He was discharged from [facility] on 12/05 and at that time also treated for hepatic encephalopathy and melena. He denies any blood in the stool this time. Head CT obtained due to platelet count of 25, no acute findings. Stable H&H, INR of 1.4, ammonia 125. Patient received a dose of lactulose 30 g in the ER. He will be admitted for further management and treatment of acute on chronic hepatic encephalopathy. 64-year-old man treated for acute on chronic hepatic metabolic encephalopathy secondary to history of decompensated cirrhosis. Treated with 30 g t.i.d. of lactulose and rifaximin b.i.d.. The patient was having at least 2-3 bowel movements a day. Seen evaluated by Gastroenterology with recommendation for outpatient follow up with regular hazardous waste management specialist. Patient is alert and oriented, ammonia trended down significantly. Patient had initially some complaints of dizziness with ambulation but he has denied today and has been able to ambulate to the bathroom without any difficulties. He also has a chronic history of pancytopenia thrombocytopenia, no active bleeding noted secondary to chronic liver cirrhosis no obvious bleeding. Plan will be to discharge patient home, he should continue with his lactulose with no missing doses. Hypertension. Continue amlodipine Overweight. BMI 29.5. Discussed importance of weight management as this may be contributing to worsening of other comorbidities Time Attestation Discharge Coordination Time (in mins): 38 Quality: Safe Use of Opioids Does Pt have an Active Cancer Diagnosis on the Problem List?: No Quality: Stroke Does the patient have a stroke diagnosis?: No Physical Exam Vital Signs: Vital Signs: Last Vital Signs Temp 98.6 F 12/22/24 07:27 Pulse 69 12/22/24 07:27 Resp 18 12/22/24 07:27 BP 120/58 L 12/22/24 07:27 Pulse Ox 94 12/22/24 07:27 O2 Del Method Room Air 12/22/24 07:27 BMI result Body Mass Index 29.5 Appearing in no acute distress head is normocephalic atraumatic eyes pupils are PERRLA sclera is anicteric mouth throat mucous membranes are intact and moist neck is supple no lymphadenopathy, no JVD noted lung sounds are clear to auscultation heart regular rate rhythm, clear S1, S2 positive bowel sounds, abdomen is soft, nontender neuro patient is alert x3, no focal deficits DS: Data Data Completed and Pending Completed studies during hospitalization [Text1]: Procedures Bypass Portal Vein to Hepatic Vein with Synthetic Substitute, Percutaneous Approach (10/08/24) Transfusion of Nonautologous Platelets into Peripheral Vein, Percutaneous Approach (10/08/24) Labs on day of discharge: Laboratory Results - last 24 hr 12/21/24 12/22/24 18:19 08:37 Sodium 139 Potassium 4.3 Chloride 113 H Carbon Dioxide 22 Anion Gap 8 L BUN 15 Creatinine 0.79 Estim Creat Clear Calc 116.5 Estimated GFR > 60 Random Glucose 86 Calcium 8.5 Ammonia 86 H Stool Occult Blood POSITIVE Discharge Plan Discharge Anticipated Discharge Date/Time: 12/22/24 10:56 Patient Disposition: Home, Self-Care Discharge Diagnosis: Hepatic encephalopathy Referrals: Leta Soto MD [Primary Care Provider] - 1 Week Discharge Medications: Continued carvedilol 3.125 mg tablet 3.125 mg PO BID Qty: 60 3RF furosemide 40 mg tablet 40 mg PO DAILY clotrimazole 1 % cream 1 appl topical BID ascorbic acid (vitamin C) 250 mg tablet 250 mg PO DAILY ferrous sulfate 325 mg (65 mg iron) tablet 325 mg PO DAILY amlodipine 5 mg Tablet 5 mg PO DAILY lactulose 10 gram/15 mL Solution 30 g PO TID Qty: 1500 0RF Discharge Orders: Discharge Order (Routine); Ordered 12/22/24 Ordered By: Deanna Kwame Diet: Advance to usual diet Activity on Discharge: As tolerated Stand Alone Forms: Patient Portal Discharge page Print Language: Czech Care Plan Goals: Do not miss any doses of lactulose which is prescribed as 30 g 3 times a day Health Concerns: Hepatic encephalopathy Plan of Treatment: Follow-up with primary care provider as needed Take all medications as prescribed Assessment: See discharge summary
[2024-12-22 11:04] VITALS: BP 122/58; PULSE 68; RESP 18; TEMP 37.1; O2SAT 96
== END 2024-12-22 13:07 | disposition home or self-care (01) ==
LOC: HO.ED 14:05 → HO.EDOVER 15:46 → HO.IMC 12-21 07:40
PROVIDERS: Admitting Provider Nurse Practitioner Acute Care; Emergency Provider Emergency Medicine; PCP Student in an Organized Health Care Education/Training Program; Visit Provider Nurse Practitioner Acute Care
DX: K74.69 Other cirrhosis of liver (principal); I81 Portal vein thrombosis; G93.41 Metabolic encephalopathy; D61.818 Other pancytopenia; K76.82 Hepatic encephalopathy; I10 Essential (primary) hypertension; E66.3 Overweight; T47.3X6A Underdosing of saline and osmotic laxatives, initial encounter; Z71.3 Dietary counseling and surveillance; Z86.19 Personal history of other infectious and parasitic diseases; Z68.29 Body mass index [BMI] 29.0-29.9, adult; Z79.899 Other long term (current) drug therapy
CPT/HCPCS: 36415; 70450; 80048; 80053; 80076; 81003; 82140; 82272; 83690; 83735; 83880; 85025; 85027; 85610; 86140; 93005; 99285

== ENCOUNTER → 2024-12-20 13:12 | Outpatient (BNV) | payer MEDICAID, SELFPAY | PROVIDERS: Admitting Provider Nurse Practitioner Acute Care; Emergency Provider Emergency Medicine; PCP Student in an Organized Health Care Education/Training Program; Visit Provider Internal Medicine Cardiovascular Disease | DX: R41.82 Altered mental status, unspecified (principal) | CPT/HCPCS: 93010 ==

== ENCOUNTER → 2024-12-20 14:15 | Outpatient (BNV) | payer MEDICAID, SELFPAY | PROVIDERS: Admitting Provider Nurse Practitioner Acute Care; Emergency Provider Emergency Medicine; PCP Student in an Organized Health Care Education/Training Program; Visit Provider Nuclear Medicine | DX: R41.82 Altered mental status, unspecified (principal) | CPT/HCPCS: 70450 ==

== ENCOUNTER → 2024-12-20 15:39 | Outpatient (BNV) | payer MEDICAID, SELFPAY | PROVIDERS: Admitting Provider Nurse Practitioner Acute Care; Emergency Provider Emergency Medicine; PCP Student in an Organized Health Care Education/Training Program; Visit Provider Internal Medicine Gastroenterology | DX: K76.82 Hepatic encephalopathy (principal); I81 Portal vein thrombosis; Z95.828 Presence of other vascular implants and grafts; K74.60 Unspecified cirrhosis of liver | CPT/HCPCS: 99222 ==

== ENCOUNTER → 2024-12-20 15:39 | Outpatient (BNV) | payer MEDICAID, SELFPAY | PROVIDERS: Admitting Provider Nurse Practitioner Acute Care; Emergency Provider Emergency Medicine; PCP Student in an Organized Health Care Education/Training Program; Visit Provider Nurse Practitioner Acute Care | DX: E72.20 Disorder of urea cycle metabolism, unspecified (principal) | CPT/HCPCS: 99223 ==

== ENCOUNTER 2024-12-26 15:59 | Emergency (ER) | payer MEDICAID, SELFPAY ==
[2024-12-26 16:07] VITALS: BP 139/61; PULSE 71; RESP 16; TEMP 36.3; O2SAT 99
[2024-12-26 16:08] VITALS: BP 210/100; PULSE 75; O2SAT 100
[2024-12-26 16:09] VITALS: BP 139/61; PULSE 74; RESP 16; O2SAT 100; BMI 32.4
--- OUTSIDE RECORDS SUMMARY | 2024-12-26 16:24 | XMS_ITS | Encounter Summary ---
Author Organization [employer] Address [address] [place] [address] Care Team Providers Care Buggy Operator Name Role Phone Leta Soto MD Primary Care Pro vider Yajaira Antonio Unavailable Encounter Details Date Type Department Care Team (Late st Contact Info) Description 12/17/2023 Orders Only [facility] [address] [place] [address] Tatyana Mosquera FNP [address] [place] [address] Social History Tobacco Use Types Packs/Day Years [...] Description 01/29/2025 1:15 PM EDT Office Visit [facility] [address] [place] [phone] Leta Soto MD [address] [place] [phone] documented as of this encounter Goals Goal [...] documented as of this encounter Care Teams Buggy Operator Relationship Specialty Start Date End Date Leta Soto MD [address] [place] [id number] PCP - General Internal Medicine 04/11/23 Yajaira Antonio [address] [place], [place] [id number] Gastroenterology 09/04/24 documented as of this encounter
--- OUTSIDE RECORDS SUMMARY | 2024-12-26 16:24 | XMS_ITS | Clinical Summary ---
Author Organization [employer] Address [address] [facility] 7t [place] [address] Care Team Providers Care Mold Worker Name Role Phone Leta Soto MD Primary [...] times daily. Active amLODIPine (Norvasc) 5 MG tabletIndication s:Essential hypertension Take 1 tablet (5 mg) by mouth Once per day. 30 tablet 11/25/19 25 026 Active furosemide (Lasix) 40 MG tabletIndication s:Bilateral leg edema Take 1 tablet (40 mg) by mouth in the morning. 30 tablet 11/28/19 25 026 Active furosemide (Lasix) 20 MG tabletIndication s:Other cirrhosis of liver (CMS/HCC) Take 1 tablet (20 mg) by mouth Once per day. 30 tablet 11/25/19 25 025 Discontinu ed(Ineffec tive) clotrimazole (Lotrimin) 1 % creamIndications :Tinea pedis of both feet Apply topically 2 times daily for 28 days. 30 g 5 11/25/19 25 025 Active Problems Problem Noted Date Diagnosed Date [...] his advocate PLAN: 1. Follow up with [facility]: Not recommended for follow-up 2. Patient goal is be connected to services 3. Behavioral Recommendations a. Patient will engage in service once established b. Patient may return to [facility] for medical needs until a PCP [...] Encounters Date Type Department Care Team Description 12/25/2024 Patient Outreach [facility] [address] [place] [phone] Leta Soto MD 12/20/2024 Orders Only [facility] External Provider, [facility] 12/17/2024 Telephone [facility] [address] [place] [address] Leta Soto MD Care Management (C3CM- initial assessment/ enrollment #2. ) 12/15/2024 Patient Outreach [address] [address] Leta Soto MD Care Coordination (C3CM- initial assessment/ enrollment. Patient not available at time of call.) 12/15/[address] [address] Yamel Khanna, RN Results 12/15/2024 Patient Outreach [address] [address] Leta Soto MD Care Coordination (CM/CHW appt reminder) 12/09/[address] [address] Yamel Khanna, [facility] Follow-up 12/05/[address] [address] Leta Soto MD call back 12/03/2024 Orders Only [facility] External Provider, [facility] 11/28/[address] [address] Yamel Khanna, conversion developer; Medication Changes 11/27/2024 2:30 PM EDT Office Visit [address] [address] Ann Piña ANP Healthcare maintenance (Primary Dx); Severe thrombocytopenia (CMS/HCC); Pancytopenia (CMS/HCC); Hepatic encephalopathy (CMS/HCC); Illiteracy; Cognitive impairment; Esophageal varices determined by endoscopy ([facility]/HCC); Essential hypertension; Bilateral leg edema; Chest tightness 11/27/2024 Travel 11/27/2024 Patient Outreach [address] [address] Leta Soto MD 11/27/2024 Patient Outreach [address] [address] Leta Soto MD Care Coordination (CM/CHW Outreach) 11/27/2024 Patient Outreach [address] [address] Leta Soto MD Care Coordination (W Chart Review ) 11/27/2024 Patient Outreach [facility] [place] [address] Leta Soto MD Care Coordination ([facility] chart [place]) 11/27/2024 Patient Outreach [facility] [place] [address] Leta Soto MD 11/26/2024 Telephone [place] [address] eLta Soto MD Results 11/24/2024 1:15 PM EDT Office Visit [place] [address] [facility] Other cirrhosis of liver (CMS/HCC) (Primary Dx); Pancytopenia (CMS/HCC); Essential hypertension; Lower extremity edema; Tinea pedis of both feet 11/24/2024 Orders Only [facility] [place], JESUS [address] [facility] 11/24/2024 Telephone [facility] [place] [address] Leta Soto MD 11/21/2024 Population Health Risk Score Community [facility] () Department [address] [place] [phone] Provider, Population Health Generic 11/18/2024 Telephone [facility] [place] [address] Ysabel Omer MD CHART PREP 11/17/2024 Orders Only GENERIC EXTERNAL DATA DEPARTMENT Provider, Generic External Data 11/14/2024 Telephone [facility] [place] [address] Leta Soto MD Lab Orders 11/11/2024 Telephone [facility] [place] [place] [address] Leta Soto MD 11/07/2024 Orders Only [facility] External Provider, [facility] 11/03/2024 Telephone [facility] [place] [address] Leta Soto MD No Show 10/31/2024 Orders Only [facility] External Provider, [facility] 10/28/2024 Orders Only GENERIC EXTERNAL DATA DEPARTMENT Provider, Generic External Data 10/28/2024 Refill [facility] [address] [place] [address] Leta Soto MD 10/23/2024 Refill [facility] [address] [place] [address] Kelly Dick PharmD 10/22/2024 Patient Outreach [address] [address] Leta Soto MD Transition Of Care (Tcm) (HDF- Scheduled) 10/22/[address] [address] Kelly Dick PharmD 10/22/[address] [place] [address] Leta Soto MD WELDER Services (The patient requested WELDER services. I called to ask what ADLs he needs assistance with, and he stated that he is unable to talk at this time, and asked for me to call back at about 10:30 today.); Carlitos WELDER Services (I called the patient regarding his request for WELDER services. I asked what ADLs he needs assistance with, and he asked me to speak with Jonathan. Jonathan stated that he needs assistance with bathing, getting dressed, medications, housekeeping, cooking, and going to appointments. She stated that if he is approved, she will be his WELDER. I informed her that once he is referred, he will be receiving a call from [facility], to set up an evaluation. [facility] because sometimes the pa) 10/13/2024 Telephone [facility] [address] [place] [address] Nhung Caicedo [place] odette recall 10/08/2024 Orders Only [facility] External Provider, [facility] from Last 3 Months Immunizations Name [...] Description 01/29/2025 1:15 PM EDT Office Visit [facility] [address] [place] [address] Leta Soto MD [address] [place], [place] [phone] Health Maintenance Due Date Last Done Comments [...] Name Priority Date/Time Associated Diagnosis Comments CT HEAD WO CONTRAST Routine 12/20/2024 3 :21 PM EDT B TYPE NATRIURETIC PEPTIDE (BNP) Routine 12/15/2024 [...] Relevant to Health Maintenance Results * CT Head w/o Contrast (12/20/2024 3:21 PM EDT) Only the most recent of2 resultswithin the time period is included. Anatomical Region Laterality Modality Head, Neck Computed Tomogra phy 12/20/2024 3:21 PM EDT Narrative 12/20/2024 3:23 PM EDT ? [facility] ?[address] ?[place] [address] ? CT Scan Report ? Signed ? Patient: Adelso Beebe ?MR#: [id number] ?? [id number] ? : 1960 ?Acct:[id number] ? Age/Sex: 64 / M ?ADM Date: 04/12/25 ? Loc: HO.ED ? Attending Dr: ? Ordering Physician: Peggy Renee DO ?? Date of Service: 12/20/24 ?? Procedure(s): CT head/brain wo IV con ?? Accession Number(s): [id number] ? cc: Peggy Renee DO; Leta Soto MD ? Report Number: ?? [id number]: Total DLP = ??661.00 mGy-cm ? CLINICAL HISTORY: confusion, low platelets ? CT head without contrast ? Comparison: CT/SR - CT HEAD/BRAIN WO IV CON - 11/07/24 00:25 EST ? Findings: ?? No intra-axial mass, midline shift, hydrocephalus, or acute hemorrhage. ?? No significant atrophy-like change or white matter disease. ? There is no sinus or mastoid fluid. ?? The orbits are within normal limits. ?? There is no acute fracture. ? IMPRESSION: ?? 1. No acute intracranial findings. ? This document has been electronically signed by: Clint Mayers MD on ?? 12/20/2024 15:21:42 ? Dictated By: ?Clint Mayers MD ? Signed By: ?<Electronically signed by Clint Mayers MD in OV> ? 12/20/24 1523 ? DD/ 1521 ? TD/TT: 12/20/24 1521 ? Transportation Driver: ? Procedure Note Mehreen Blackman - 12/20/[address] [place] [address] [address] Scan Report Signed Patient: Adelso BeebeMR#: [id number] : 1960cct:[id number] Age/Sex: 64 / MADM Date: 12/20/24 Loc: HO.ED Attending Dr: Ordering Physician: Peggy Renee DO Date of Service: 12/20/24 Procedure(s): CT head/brain wo IV con Accession Number(s): [id number] cc: Peggy Renee DO; Leta Soto MD Report Number: [id number]: Total DLP = 661.00 mGy-cm CLINICAL HISTORY: confusion, low platelets CT head without contrast Comparison: CT/SR - CT HEAD/BRAIN WO IV CON - 11/07/24 00:25 EST Findings: No intra-axial mass, midline shift, hydrocephalus, or acute hemorrhage. No significant atrophy-like change or white matter disease. There is no sinus or mastoid fluid. The orbits are within normal limits. There is no acute fracture. IMPRESSION: 1. No acute intracranial findings. This document has been electronically signed by: Clint Mayers MD on 12/20/2024 15:21:42 Dictated By: Clint Mayers MD Signed By: <Electronically signed by Clint Mayers MD in OV> 12/20/24 1523 DD/ 1521 TD/TT: 12/20/24 1521 Transportation Driver: [facility] External Provider IMG CT PROCEDURES Edited Result - Final * (ABNORMAL) B Type Natriuretic Peptide (BNP) (12/15/2024 8:40 AM EDT) B Type Natriuretic Peptide 123(H) <100 pg/mL [facility] Blood Venous blood specimen / Unknown 12/15/2024 8:40 AM EDT 12/15/2024 11:06 AM EDT [facility] LAB BLOOD ORDERABLES Final Resul t [facility] [address] [place] [address] [phone] * CT Abdomen Pelvis w/ and w/o Contrast (12/03/2024 6:53 PM EDT) Anatomical Region Laterality Modality Body, Pelvis, Abdomen Computed T omography 12/03/2024 6:53 PM EDT Narrative 12/03/2024 6:55 PM EDT ? [facility] ?[address] ?[place] [address] ? CT Scan Report ? Signed ? Patient: Adelso Beebe ?MR#: [id number] ?? [id number] ? : 1960 ?Acct:[id number] ? Age/Sex: 64 / M ?ADM Date: 03/26/25 ? Loc: HO.IMC ?450-1 ? Attending Dr: Mikey Lopez MD ? Ordering Physician: Mikey Schmitt MD ?? Date of Service: 12/03/24 ?? Procedure(s): CT abdomen pelvis wo/w IV con ?? Accession Number(s): [id number] ? cc: Mikey Schmitt MD; Leta Soto MD ? Report Number: ?? [id number]: Total DLP = 1963.00 mGy-cm ? CLINICAL [...] DD/ 52 ? TD/TT: 12/03/24 1853 ? Transportation Driver: ? Procedure Note Donotuseinterpreter, Image - 12/03/[address] [place] [address] [address] Scan Report Signed Patient: Adelso BeebeMR#: [id number] : 1960cct:[id number] Age/Sex: 64 / MADM Date: 12/03/24 Loc: [facility] 450-[address]: Mikey Lopez MD Ordering Physician: Mikey Schmitt MD Date of Service: 12/03/24 Procedure(s): CT abdomen pelvis wo/w IV con Accession Number(s): [id number] cc: Mikey Schmitt MD; Leta Soto MD Report Number: [id number]: Total DLP = 1963.00 mGy-cm CLINICAL HISTORY: [...] in OV> 12/03/241854 DD/ 52 TD/TT: 12/03/241852 Transportation Driver: [facility] External Provider IMG CT PROCEDURES Final Result * VASC Lower Extremity Venous Duplex Bilateral (12/03/2024 4:40 PM EDT) 12/03/2024 4:40 PM EDT [facility] IMAGING - 12/03/2024 4:41 PM EDT ? [facility] ?[address] ?[place] [id number] ? Ultrasound Report ? Signed ? Patient: Godfreydestiny Mcmanus,Adelso ?MR#: [id number] ?? [id number] ? : 1960 ?Acct:[id number] ? Age/Sex: 64 / M ?ADM Date: 03/26/25 ? Loc: HO.IMC ?450-1 ? Attending Dr: Mikey Lopez MD ? Ordering Physician: Mikey Schmitt MD ?? Date of Service: 12/03/24 ?? Procedure(s): US venous duplex LE BI ?? Accession Number(s): [id number] ? cc: Mikey Schmitt MD; Leta Soto [...] DD/ 1640 ? TD/TT: 12/03/24 1640 ? Transportation Driver: ? Procedure Note Donmaritzainterpreter, Image - 12/03/2024 [place] [address] Ultrasound Report Signed Patient: Yolanda Beebe#: [id number] : 2Acct:[id number] Age/Sex: 64 / MADM Date: 12/03/24 Loc: [facility] 450-[address]: Mikey Lopez MD Ordering Physician: Mikey Schmitt MD Date of Service: 12/03/24 Procedure(s): US venous duplex LE BI Accession Number(s): [id number] cc: Mikey Schmitt MD; Leta Soto MD [...] 12/03/24 1641 DD/ 1640 TD/TT: 12/03/24 1640 Transportation Driver: [facility] External Provider CV VASC ULAR PROCEDURES Final Result [facility] [address] [place] [address] * Slide Review (11/24/2024 2:30 PM EDT) Only the most recent of2 resultswithin the time period is included. Slide Review VERIFIED [facility] 11/24/2024 2:30 PM EDT 11/24/2024 4:24 PM EDT [facility] [employer] LAB BLOOD ORDERABLES Final Re sult Performing Organization Address [facility] Co de Phone Number [facility] [address] [place] [address] [phone] * (ABNORMAL) CBC auto differential (11/24/2024 2:30 PM EDT) Only the most recent of2 resultswithin the time period is included. White Blood Count 2.0(L) 4.8 - 10.8 X10*3/uL [facility] Red Blood Count 3.63(L) 4.60 - 5.80 X10*6/uL [facility] Hemoglobin 10.5(L) 14.0 - 18.0 g/dl [facility] Hematocrit 32.3(L) 42.0 - 52.0 % [facility] Mean Corpuscular Volume 89.0 80.0 - 98.0 fL [facility] Mean Corpuscular Hemoglobin 28.9 27.0 - 33.0 pg [facility] Mean Corpuscular HGB Conc 32.5 31.0 - 36.0 g/dl [facility] Red Cell Distribution Width 17.8(H) 11.0 - 16.0 % [facility] Platelet Count 24(L) 160 - 400 X10*3/uL [facility] Mean Platelet Volume 11.8 9.4 - 12.4 fL [facility] Neutrophils Percent Auto 56.3 45 - 73 % [facility] Imm Gran Pct Auto 0.5(H) 0.0 - 0.4 % [facility] Lymphocytes Percent Auto 32.7 20 - 40 % [facility] Monocytes Percent Auto 9.0 2 - 11 % [facility] Eosinophils Percent Auto 1.0 0 - 4 % [facility] Basophils Percent Auto 0.5 0 - 2 % [facility] NRBC Pct Auto 0.0 0.0 - 0.2 /100WBC [facility] Neutrophils Absolute Auto 1.1(L) 2.0 - 8.3 x10*3/uL [facility] Imm Gran Abs Auto 0.01 0.00 - 0.03 X10*3/uL [facility] Lymphocytes Absolute Auto 0.7(L) 1.2 - 4.9 X10*3/uL [facility] Monocytes Absolute Auto 0.2 0.1 - 1.2 X10*3/uL [facility] Eosinophils Absolute Auto 0.0 0.0 - 0.4 X10*3/uL [facility] Basophils Absolute Auto 0.0 0.0 - 0.2 X10*3/uL [facility] NRBC Abs Auto 0.000 0.0 - 0.012 X10*3/uL [facility] Blood Venous blood specimen / Unknown 11/24/2024 2:30 PM EDT 11/24/2024 4:24 PM EDT [facility] LAB BLOOD ORDERABLES Edited R esult - Final [facility] [address] [place] [address] [phone] * (ABNORMAL) Comprehensive Metabolic Panel (11/24/2024 2:30 PM EDT) Only the most recent of2 resultswithin the time period is included. Sodium 144 135 - 145 mmol/L [facility] Potassium 4.9 3.3 - 5.1 mmol/L [facility] Chloride 116(H) 96 - 108 mmol/L [facility] Carbon Dioxide 25 22 - 29 mmol/L [facility] Anion Gap 8(L) 12 - 20 [facility] Urea Nitrogen (BUN) 12 9 - 16 mg/dL [facility] Creatinine, Serum 0.72 0.5 - 1.4 mg/dL [facility] Estimated Glomerular Filt Rate >60 [facility] Comment:Chronic Kidney Disea se: Estimated GFR < 60 mL/min/1.31j7Opxpna Kidney Disease: Estimated GFR < 15 mL/min/1.73m2 Glucose 99 60 - 115 mg/dL [facility] Calcium 8.4 8.4 - 10.2 mg/dL [facility] Bilirubin, Total 1.6(H) 0.0 - 1.0 mg/dL [facility] Aspartate Amino Transferase 48(H) 5 - 37 U/L [facility] Alanine Aminotransferase 31 0 - 40 U/L [facility] Total Protein 6.7 6.5 - 8.0 g/dL [facility] Albumin Level 3.0(L) 3.5 - 5.0 g/dL [facility] Alkaline Phosphatase 145(H) 39 - 117 U/L [facility] Blood Venous blood specimen / Unknown 11/24/2024 2:30 PM EDT 11/24/2024 4:24 PM EDT [facility] LAB BLOOD ORDERABLES Final Re sult [facility] [address] [place] [phone] * (ABNORMAL) Complete Blood Count Manual Diff (11/17/2024 1:55 PM EDT) White Blood Count 2.4(L) 4.8 - 10.8 X10*3/uL [facility] Red Blood Count 3.56(L) 4.60 - 5.80 X10*6/uL [facility] Hemoglobin 10.4(L) 14.0 - 18.0 g/dl [facility] Hematocrit 30.7(L) 42.0 - 52.0 % [facility] Mean Corpuscular Volume 86.2 80.0 - 98.0 fL [facility] Mean Corpuscular Hemoglobin 29.2 27.0 - 33.0 pg [facility] Mean Corpuscular HGB Conc 33.9 31.0 - 36.0 g/dl [facility] Red Cell Distribution Width 17.4(H) 11.0 - 16.0 % [facility] Platelet Count 22(L) 160 - 400 X10*3/uL [facility] NRBC Pct Auto 0.0 0.0 - 0.2 /100WBC [facility] NRBC Abs Auto 0.000 0.0 - 0.012 X10*3/uL [facility] Neutrophils % Manual 65 45 - 73 % [facility] Band Neutrophils Percent 0(L) 3 - 5 % [facility] Lymphocytes Percent Manual 23 20 - 40 % [facility] Monocytes Percent Manual 11 2 - 11 % [facility] EOSINOPHILS % MANUAL 1 0 - 4 % [facility] NEUTROPHILS ABSOLUTE MANUAL 1.6(L) 2.0 - 8.3 X10*3/uL [facility] LYMPHOCYTES ABSOLUTE MANUAL 0.6(L) 1.2 - 4.9 X10*3/uL [facility] MONOCYTES ABSOLUTE MANUAL 0.3 0.1 - 1.2 X10*3/uL [facility] Platelet Estimate NORMAL NORMAL [facility] Platelet Morphology Comment NORMAL [facility] RBC Morphology NOTED [facility] Ovalocytes 1+ (5-14) /OIF [facility] 11/17/2024 1:55 PM EDT 11/17/2024 4:00 PM EDT us Generic External Data Provider LAB BLOOD ORDERAB LES Final Result [facility] [address] [place] [address] [phone] * T-SPOT??.TB (11/17/2024 1:55 PM EDT) T Spot TB Negative Negative [facility] Comment:A negative test resu lt [...] as aquantitative test. TS PANEL A 0 [facility] TS PANEL B 0 [facility] Negative Control Passed [facility] Positive Control Passed [facility] Comment:For additional infor mation, please refer tohttp://education.[employer]/faq/JRC351(This link is being provided for informational/educational purposes only.)THIS TEST WAS PERFORMED AT:[employer] [id number] [place] [address]WZFCWCKDORCAS ELAM MD,PHD 11/17/2024 1:55 PM EDT 11/17/2024 4:07 PM EDT us Leta Dick MD LAB BLOOD ORDERAB LES Final Result [facility] [address] [place] [address] [phone] * Ferritin (11/17/2024 1:55 PM EDT) Pathologist [facility] Ferritin 52 20 - 250 ng/mL [facility] 11/17/2024 1:55 PM EDT 11/17/2024 4:07 PM EDT us Generic External Data Provider LAB BLOOD ORDERAB LES Final Result [facility] [address] [facility] [place] [address] [phone] * US Abdomen Limited (11/07/2024 9:25 AM EST) Only the most recent of2 resultswithin the time period is included. Anatomical Region Laterality Modality Abdomen Ultrasound 11/07/2024 9:25 AM EST Narrative 11/07/2024 9:55 AM EST ? [facility] ?[address] ?[place] [address] ? Ultrasound Report ? Signed ? Patient: Adelso Beebe ?MR#: [id number] ?? [id number] ? : 1960 ?Acct:[id number] ? Age/Sex: 63 / M ?ADM Date: 11/07/24 ? Loc: HO.EDOVER ?MEDSURG-3 ? Attending Dr: Ivis HAMILTON ? Ordering Physician: Lc Cohn MD ?? Date of Service: 11/07/24 ?? Procedure(s): US abdomen limited ?? Accession Number(s): [id number] ? cc: Leta Soto MD; Lc Cohn [...] ? DD/ ? TD/TT: 11/07/24 0945 ? Transportation Driver: MSM ? Procedure Note Donotjuanyinterpreter, Image - 11/07/2024 [place] [address] Ultrasound Report Signed Patient: Adelso BeebeMR#: [id number] : 1960cct:[id number] Age/Sex: 63 / MADM Date: 11/07/24 [facility]: Ivis HAMILTON Ordering Physician: Lc Cohn MD Date of Service: 11/07/24 Procedure(s): US abdomen limited Accession Number(s): [id number] cc: Leta Soto MD; Lc Cohn MD [...] in OV> 11/07/2452 DD/ 4 TD/TT: 11/07/2445 Transportation Driver: KAZ us [facility] External Provider IMG US PROCEDURES Final Result * CT Abdomen Pelvis w/ Contrast (11/07/2024 3:31 AM EST) Only the most recent of3 resultswithin the time period is included. Anatomical Region Laterality Modality Body, Pelvis, Abdomen Computed T omography 11/07/2024 3:31 AM EST Narrative 11/07/2024 3:33 AM EST ? [facility] ?[address] ?[place] [id number] ? CT Scan Report ? Signed ? Patient: Godfrey McmanusAdelso ?MR#: [id number] ?? [id number] ? : 1960 ?Acct:[id number] ? Age/Sex: 63 / M ?ADM Date: 11/07/24 ? Loc: HO.ED ? Attending Dr: ? Ordering Physician: Gilbert Gandara MD ?? Date of Service: 11/07/24 ?? Procedure(s): CT abdomen pelvis w IV con ?? Accession Number(s): [id number] ? cc: Gilbert Gandara MD; Leta Soto MD ? Report Number: ?? [id number]: Total DLP = 1166.00 mGy-cm ? CLINICAL [...] DD/ 0331 ? TD/TT: 11/07/24 033 ? Transportation Driver: ? Procedure Note Mehreen Blackman - 11/07/[address] [place] [address] [address] Scan Report Signed Patient: Adelso BeebeMR#: [id number] : 1960cct:[id number] Age/Sex: 63 / MADM Date: 11/07/24 Loc: HO.ED Attending Dr: Ordering Physician: Gilbert Gandara MD Date of Service: 11/07/24 Procedure(s): CT abdomen pelvis w IV con Accession Number(s): [id number] cc: Gilbert Gandara MD; Leta Soto MD Report Number: [id number]: Total DLP = 1166.00 mGy-cm CLINICAL HISTORY: [...] in OV> 11/07/24331 DD/ 0 TD/TT: 11/07/24330 Transportation Driver: [facility] External Provider IMG CT PROCEDURES Final Result * CT Chest w/ Contrast (11/07/2024 3:21 AM EST) Anatomical Region Laterality Modality Body, Chest Computed Tomogra phy 11/07/2024 3:21 AM EST Narrative 11/07/2024 3:23 AM EST ? [facility] ?[address] ?[place] [address] ? CT Scan Report ? Signed ? Patient: GodfreyAdelso Davison ?MR#: [id number] ?? [id number] ? : 1960 ?Acct:[id number] ? Age/Sex: 63 / M ?ADM Date: 11/07/24 ? Loc: HO.ED ? Attending Dr: ? Ordering Physician: Gilbert Gandara MD ?? Date of Service: 11/07/24 ?? Procedure(s): CT chest w IV con ?? Accession Number(s): [id number] ? cc: Gilbert Gandara MD; Leta Soto MD ? Report Number: ?? [id number]: Total DLP = ??483.00 mGy-cm ? CLINICAL HISTORY: fall ??please comment on T-spine for provider. ? CT chest with contrast ? Comparison: CR - XR CHEST 11/06/24 23:44 EST ? Findings: ?? Normal [...] DD/ 0321 ? TD/TT: 11/07/24 0321 ? Transportation Driver: ? Procedure Note Donotuseinterpreter, Image - 11/07/[address] [address] [address] Scan Report Signed Patient: Adelso BeebeMR#: [id number] : 1960cct:[id number] Age/Sex: 63 / MADM Date: 11/07/24 Loc: HO.ED Attending Dr: Ordering Physician: Gilbert Gandara MD Date of Service: 11/07/24 Procedure(s): CT chest w IV con Accession Number(s): [id number] cc: Gilbert Gandara MD; Leta Soto MD Report Number: [id number]: Total DLP = 483.00 mGy-cm CLINICAL HISTORY: [...] in OV> 11/07/24322 DD/ 0 TD/TT: 11/07/24320 Transportation Driver: us [facility] External Provider IMG CT PROCEDURES Final Result * CT Cervical Spine w/o Contrast (11/07/2024 2:25 AM EST) Anatomical Region Laterality Modality Spine, C-spine Computed Tomogra phy 11/07/2024 2:25 AM EST Narrative 11/07/2024 2:26 AM EST ? [facility] ?[address] ?[place] [address] ? CT Scan Report ? Signed ? Patient: Godfreydestiny Mcmanus,Adelso ?MR#: [id number] ?? [id number] ? : 1960 ?Acct:[id number] ? Age/Sex: 63 / M ?ADM Date: 11/07/24 ? Loc: HO.ED ? Attending Dr: ? Ordering Physician: Gilbert Gandara MD ?? Date of Service: 11/07/24 ?? Procedure(s): CT cervical spine wo IV con ?? Accession Number(s): [id number] ? cc: Gilbert Gandara MD; Leta Soto MD ? Report Number: ?? [id number]: Total DLP = ??344.00 mGy-cm ? CLINICAL HISTORY: fall and ams ? CT cervical spine without contrast ? Comparison: None ? Findings: ?? There is grade 1 anterolisthesis of C3 on C4, of C6 on C7, and also of C7 ?? on T1. Irregularity and sclerosis of the vertebral body endplates present ?? at C6-C7. Vxtx-au-kmlyvlsv degenerative endplate changes are present at ?? [...] ? DD/ 4 ? TD/TT: 11/07/24224 ? Transportation Driver: ? Procedure Note Mehreen Blackman - 11/07/[address] [address] [address] Scan Report Signed Patient: Adelso Beebe#: [id number] : 2Acct:[id number] Age/Sex: 63 / MADM Date: 11/07/24 Loc: HO.ED Attending Dr: Ordering Physician: Gilbert Gandara MD Date of Service: 11/07/24 Procedure(s): CT cervical spine wo IV con Accession Number(s): [id number] cc: Gilbert Gandara MD; Leta Soto MD Report Number: [id number]: Total DLP = 344.00 mGy-cm CLINICAL HISTORY: fall and ams CT cervical spine without contrast Comparison: None Findings: There is grade 1 anterolisthesis of C3 on C4, of C6 on C7, and also of C7 on T1. Irregularity and sclerosis of the vertebral body endplates present at C6-C7. Blqo-rm-pwekzitc degenerative endplate changes are present at the [...] in OV> 11/07/24225 DD/ 4 TD/TT: 11/07/24224 Transportation Driver: [facility] External Provider IMG CT PROCEDURES Final Result * Urinalysis w/reflex microscopic (11/07/2024 2:08 AM EST) Color Urine Dark Yellow [facility] Appearance Urine Clear [facility] PH 6.0 5.0 - 9.0 [facility] Glucose Urine UA Negative Negative mg/dL [facility] Urine Blood Negative Negative [facility] Specific [place] - Urine 1.020 1.005 - 1.025 [facility] Urine Protein Negative Neg-Trace mg/dL [facility] Urine Ketones Trace Negative mg/dL [facility] Nitrite Urine Negative Negative [facility] Leukocyte Esterase Urine Negative Negative [facility] 11/07/2024 2:08 AM EST 11/07/2024 2:12 AM EST Narrative [facility] - 11/07/2024 2:17 AM EST [id number], Clean Catch us Generic External Data Provider LAB URINE ORDERAB LES Final Result [facility] [address] [place] [address] [phone] * XR Thoracic Spine 2 Views (11/03/2024 1:05 PM EST) Anatomical Region Laterality Modality Spine, T-spine Radiographic Susy ging 11/03/2024 1:05 PM EST Narrative 11/03/2024 1:07 PM EST ? [facility] ?[address] ?[place] [id number] ?XRay Report ? Signed ? Patient: Adelso Beebe ?MR#: [id number] ?? [id number] ? : 1960 ?Acct:[id number] ? Age/Sex: 63 / M ?ADM Date: 10/31/24 ? Loc: HO.XRAY ? Attending Dr: Yajaira Antonio MD ? Ordering Physician: Yajaira Antonio MD ?? Date of Service: 10/31/24 ?? Procedure(s): XR thoracic spine 2V ?? Accession Number(s): [id number] ? cc: Leta Soto MD; Yajaira Antonio [...] DD/ 1305 ? TD/TT: 11/03/24 1305 ? Transportation Driver: ? Procedure Note Hiral, Image - 11/03/2024 [facility] [address] [place] [address] XRay Report Signed Patient: Adelso BeebeMR#: [id number] : 2Acct:[id number] Age/Sex: 63 / MADM Date: 10/31/24 Loc: HO.XRAY Attending Dr: Yajaira Antonio MD Ordering Physician: Yajaira Antonio MD Date of Service: 10/31/24 Procedure(s): XR thoracic spine 2V Accession Number(s): [id number] cc: Leta Soto MD; Yajaira Antonio MD [...] 11/03/24 1307 DD/ 1305 TD/TT: 11/03/24 1305 Transportation Driver: us [facility] External Provider IMG XR PROCEDURES Final Result * XR Lumbar Spine 2-3 Views (11/03/2024 12:26 PM EST) Anatomical Region Laterality Modality Spine, L-spine Radiographic Susy ging 11/03/2024 12:2 6 PM EST Narrative 11/03/2024 12:28 PM EST ? [facility] ?[address] ?[place] [address] ?XRay Report ? Signed ? Patient: Godfrey Mcmanus,Adelso ?MR#: [id number] ?? [id number] ? : 1960 ?Acct:[id number] ? Age/Sex: 63 / M ?ADM Date: 02/21/25 ? Loc: HO.XRAY ? Attending Dr: Yajaira Antonio MD ? Ordering Physician: Yajaira Antonio MD ?? Date of Service: 10/31/24 ?? Procedure(s): XR lumbar spine 2-3V ?? Accession Number(s): [id number] ? cc: Leta Soto MD; Yajaira Antonio [...] DD/ 1226 ? TD/TT: 11/03/24 1226 ? Transportation Driver: ? Procedure Note Donaaronter, Image - 11/03/[address] [address] XRay Report Signed Patient: Adelso BebeeMR#: [id number] : 2Acct:[id number] Age/Sex: 63 / MADM Date: 10/31/24 Loc: HO.XRAY Attending Dr: Yajaira Antonio MD Ordering Physician: Yajaira Antonio MD Date of Service: 10/31/24 Procedure(s): XR lumbar spine 2-3V Accession Number(s): [id number] cc: Leta Soto MD; Yajaira Antonio MD [...] 11/03/24 1227 DD/ 1226 TD/TT: 11/03/24 1226 Transportation Driver: us [facility] External Provider IMG XR PROCEDURES Final Result * High Sensitivity Troponin I (10/28/2024 7:29 PM EST) Only the most recent of2 resultswithin the time period is included. TROPONIN I HIGH SENSITIVITY 5.2 <3.5 - 35.0 ng/L [facility] Comment:The Clifford high sens itivity Troponin-I results should beused in conjunction with other diagnostic information suchas ECG, clinical observations and information, and patientsymptoms to aid in the diagnosis of [place]. 10/28/2024 7:29 PM EST 10/28/2024 7:32 PM EST Generic External Data Provider LAB BLOOD ORDERAB LES Final Result [facility] [address] [place] [phone] * XR Chest 2 Views (10/28/2024 6:02 PM EST) Anatomical Region Laterality Modality Chest Radiographic Susy ging 10/28/2024 6:02 PM EST Narrative 10/28/2024 6:05 PM EST ? [facility] ?[address] ?[place] [address] ?XRay Report ? Signed ? Patient: Adelso Beebe ?MR#: [id number] ?? [id number] ? : 1960 ?Acct:[id number] ? Age/Sex: 63 / M ?ADM Date: 02/18/25 ? Loc: HO.ED ? Attending Dr: ? Ordering Physician: Venice Morrison CNP ?? Date of Service: 10/28/24 ?? Procedure(s): XR chest 2V ?? Accession Number(s): [id number] ? cc: Venice Morrison CNP; Leta Soto [...] in OV> ? 10/28/24 1804 ? DD/ 180 ? TD/TT: 10/28/24 1802 ? Transportation Driver: ? Procedure Note Donaaronter, Image - 10/28/[address] [address] XRay Report Signed Patient: Yolanda Beebe#: [id number] : 1960cct:[id number] Age/Sex: 63 / MADM Date: 10/28/24 Loc: HO.ED Attending Dr: Ordering Physician: Venice Morrison CNP Date of Service: 10/28/24 Procedure(s): XR chest 2V Accession Number(s): [id number] cc: Venice Morrison CNP; Leta Soto MD [...] in OV> 10/28/241803 DD/ 01 TD/TT: 10/28/241801 Transportation Driver: [facility] External Provider IMG XR PROCEDURES Edited Result - Final * IR TIPS insertion (10/15/2024 1:30 PM EST) Anatomical Region Laterality Modality X-Ray Angiograph y 10/15/2024 1:30 PM EST Narrative 10/15/2024 4:32 PM EST ? [facility] ?[address] ?[place] [id number] ?Interventional Radiology Rpt ? Signed ? Patient: Godfrey Mcmanus,Adelso ?MR#: [id number] ?? [id number] ? : 1960 ?Acct:[id number] ? Age/Sex: 63 / M ?ADM Date: 10/08/24 ? Loc: HO.ICU ?252-1 ? Attending Dr: Zana Spear MD ? Ordering Physician: Yajaira Antonio MD ?? Date of Service: 10/15/24 ?? Procedure(s): IR TIPS insertion ?? Accession Number(s): [id number] ? cc: Leta Soto MD; Yajaira Antonio [...] was advanced to the IVC. A 10 Mohawk sheath was placed. ?? A hockey-stick catheter was used to catheterize the right hepatic vein. ?? This was confirmed with venography. The sheath was then advanced into ?? the right hepatic vein. A Editlite TIPS set was then used to gain [...] obtained. An 8 mm x 8 cm [place] Vi[place]r TIPS was ?? then deployed from the hepatic vein to the portal vein. The TIPS stent ?? was postdilated with an 8 mm SILK PRESSER balloon. Portal venogram demonstrates ?? wide patency [...] DD/ 1330 ? TD/TT: 10/15/24 1625 ? Transportation Driver: ? Procedure Note Mehreen Blackman - 10/16/[address] [address] Interventional Radiology Rpt Signed Patient: Adelso BeebeMR#: [id number] : 2Acct:[id number] Age/Sex: 63 / MADM Date: 10/08/24 Loc: [facility] [address] 252-[address]: Zana Spear MD Ordering Physician: Yajaira Antonio MD Date of Service: 10/15/24 Procedure(s): IR TIPS insertion Accession Number(s): [id number] cc: Leat Soto MD; Yajaira Antonio MD Procedure: TIPS [...] was advanced to the IVC. A 10 [place]awk sheath was placed. A hockey-stick catheter was used to catheterize the right hepatic vein. This was confirmed with venography. The sheath was then advanced into the right hepatic vein. A scPhotos I Like TIPS set was then used to gain [...] obtained. An 8 mm x 8 cm [place] TIPS was then deployed from the hepatic vein to the portal vein. The TIPS stent was postdilated with an 8 mm SILK PRESSER balloon. Portal venogram demonstrates wide patency of [...] 10/15/24 1630 DD/ 1330 TD/TT: 10/15/24 1625 Transportation Driver: [facility] External Provider IMG IR PROCEDURES Edited Result - Final * XR Chest 1 View (10/08/2024 9:42 PM EST) Anatomical Region Laterality Modality Chest Radiographic Susy ging 10/08/2024 9:42 PM EST Narrative 10/08/2024 9:43 PM EST ? [facility] ?[address] ?[place] [address] ?XRay Report ? Signed ? Patient: Godfrey Mcmanus,Adelso ?MR#: [id number] ?? [id number] ? : 1960 ?Acct:[id number] ? Age/Sex: 63 / M ?ADM Date: 10/08/24 ? Loc: HO.ED ? Attending Dr: ? Ordering Physician: Bhavana Christensen ?? Date of Service: 10/08/24 ?? Procedure(s): XR chest 1V ?? Accession Number(s): [id number] ? cc: Bhavana Christensen; Leta Soto MD ? CLINICAL HISTORY: htn ? 1 view chest x-ray ? Comparison: CR/SR - XR CHEST - 03/30/24 12:39 EDT ? Findings: ?? [...] ? DD/ 41 ? TD/TT: 10/08/242141 ? Transportation Driver: ? Procedure Note Donaaronter, Image - 10/08/[address] [address] XRay Report Signed Patient: Adelso BeebeMR#: [id number] : 1960cct:[id number] Age/Sex: 63 / MADM Date: 10/08/24 Loc: HO.ED Attending Dr: Ordering Physician: Bhavana Christensen Date of Service: 10/08/24 Procedure(s): XR chest 1V Accession Number(s): [id number] cc: Bhavana Christensen; Leta Soto MD CLINICAL [...] in OV> 10/08/242142 DD/ 41 TD/TT: 10/08/242141 Transportation Driver: [facility] External Provider IMG XR PROCEDURES Edited Result - Final * Lipid Panel, Standard (04/06/2023 10:00 AM EDT) Triglycerides 94 mg/dL [facility] Comment:Desirable Triglyceri de: less than 150 mg/dLBorderline High Triglyceride 150-199 mg/dLHigh Triglyceride: 200-499 mg/dLVery High Triglyceride: greater than or equal to 5OO mg/dL Cholesterol 79 mg/dL [facility] Comment:Desirable Cholestero l: less than 200 mg/dLBorderline High Cholesterol: 200-239 mg/dLHigh Cholesterol: greater than 239 mg/dL LDL Cholesterol Calculated 36 mg/dl [facility] Comment:Desirable LDL: less than 100 mg/dLNear Optimal/Above Optimal LDL: 110- 129 mg/dLBorderline High LDL: 130-159 mg/dLHigh LDL: 160-189 mg/dLVery High LDL: greater than or equal to 190 mg/dL HDL Cholesterol 25 mg/dL [facility] Comment:Desirable HDL: great er than 40 mg/dL Note: This HDL assay may give artificially low results in patients with liver disease. Blood Venous blood specimen / Unknown 04/06/2023 10:00 AM EDT 04/06/2023 11:20 AM EDT Ann Piña [facility] BLOOD ORDERABLES Final Resul t [facility] [address] [place] [address] [phone] from Last 3 Months or Most Recently Relevant to Health Maintenance [place] [address] [place] [address] C3 HSN FULL Care Teams Mold Worker Relationship Specialty Start Date End Date Leta Soto MD [address] [place] [address] [phone] PCP - General Internal Medicine 04/11/23 Yajaira Antonio [address] [place] [address] 3[address] [place] [address] Gastroenterology 09/04/24
--- OUTSIDE RECORDS SUMMARY | 2024-12-26 16:24 | XMS_ITS ---
Author Organization [employer] Address [address] [facility] 7t [place] [address] Care Team Providers Care Direct Marketing Representative Name Role Phone Leta Soto MD Primary [...]
--- OUTSIDE RECORDS SUMMARY | 2024-12-26 16:24 | XMS_ITS | Encounter Summary ---
Author Organization [employer] Address [address] [facility] 7t [place] [address] Care Team Providers Care Asbestos Removal Supervisor Name Role Phone Leta Soto MD Primary Care Pro vider Yajaira Antonio Unavailable Encounter Details Date Type Department Care Team (Late st Contact Info) Description 12/25/2024 Patient Outreach [facility] [address] [place] [address] Leta Soto MD [address] [place] [address] Social History Tobacco Use Types Packs/Day Years [...] encounter Progress Notes * Chata Puente - 12/25/2024 11:01 AM EDT CHW Chata Puente placed outbound call to patient in regards to rescheduling missed initial assessment appointment on 12/15/24 for Adult Complex Care program services. No answer at this time. LVM introducing self from [facility] CM Department with name and direct contact number requesting call back. Will re-attempt to contact within 5 days. and address not confirmed. documented in this encounter Plan of Treatment Upcoming Encounters Date Type Department Care Team ([facility] st Contact Info) Description 01/29/2025 1:15 PM EDT Office Visit [facility] MEDICINE [address] [place] [address] [phone] Leta Soto MD [address] [place] [address] documented as of this encounter Goals Goal [...] documented as of this encounter Care Teams Asbestos Removal Supervisor Relationship Specialty Start Date End Date Leta Soto MD [address] [place] [phone] PCP - General Internal Medicine 04/11/23 Yajaira Antonio [address] [place] [address] 3rd [place] [address] Gastroenterology 09/04/24 documented as of this encounter
--- OUTSIDE RECORDS SUMMARY | 2024-12-26 16:24 | XMS_ITS ---
Author Organization [facility] Address [address] [facility] 7t [place] [address] Care Team Providers Care Staff Radiologist Name Role Phone Leta Soto MD Primary [...]
--- OUTSIDE RECORDS SUMMARY | 2024-12-26 16:24 | XMS_ITS | Encounter Summary ---
Author Organization [employer] Address [address] [facility] 7t [place] [address] Care Team Providers Care Manager Front Name Role Phone Leta Soto MD Primary Care Pro vider Yajaira Antonio Unavailable Encounter Details Date Type Department Care Team (Late st Contact Info) Description 11/11/2024 Telephone [facility] MED[facility]INE [address] [place] [address] Leta Soto MD [address] [place] [address] Social History Tobacco Use Types Packs/Day Years [...] with others, in a hotel, in a longterm, living outside on the street, on a [...] 12:27 PM EST Tc from amrita stiles nurse outreach case manager requesting the status on pt documented in this encounter Plan of Treatment Upcoming Encounters Date Type Department Care Team (Late st Contact Info) Description 01/29/2025 1:15 PM EDT Office Visit [facility] MEDICINE [address] [place] [phone] Leta Soto MD [address] [place] [address] documented as of this encounter Goals Goal [...] as of this encounter Care Teams Manager Front Relationship Specialty Start Date End Date Leta Soto MD [address] [place] [phone] PCP - General Internal Medicine 04/11/23 Yajaira Antonio [address] [place] [address] Drive 3rd [place] [address] Gastroenterology 09/04/24 documented as of this encounter
--- NOTE | 2024-12-26 16:33 | PC.NURSE ---
Pt reports bloody drainage starting in R eye socket today; also reports head pain ; pt oriented to name, , day, location; pt didn't know year or president; denies injury to R eye area or recent infections
--- NOTE | 2024-12-26 16:37 | ED.GENADULT ---
HPI - General Adult General Chief complaint: General Medical Stated complaint: EYE PAIN Time Seen by Provider: 12/26/24 16:09 History of Present Illness ED Provider: billie HPI narrative: 64 M poor historian, to me complains mostly of bleeding and pain to R eye. I clarified the history with the niece Sherie who is very involved in his care. She tells me that his main concern today was blood dripping from the right eye. The back story is that he as remote enucleation and has required a new prosthetic eye he had an appointment yesterday at [facility] but they would not perform the operation due to low platelets of 26. For this reason they referred him to [facility] and the Sherie is waiting for this referral. She does not feel that he is confused or another way altered and she believes he is mostly distressed about the blood he felt coming from the eye. There is no left eye complaints. No fever no chills no rapid or heavy bleeding from the eye. 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125 mg PO BID #60 tabs 11/24/24 lactulose 10 gram/15 mL oral 30 g (45 mL) PO TID #1,500 mL 12/05/24 solution Allergies Allergy/AdvReac Type Severity Reaction Status Date / Time dicyclomine [From Bentyl] Allergy Unknown Verified 12/26/24 16:11 aspirin AdvReac Severe stomach Verified 12/26/24 16:11 bleeding NSAIDS (Non-Steroidal AdvReac Severe liver Verified 12/26/24 16:11 Anti-Inflamma concerns PMFSH Past Medical History Medical History Hepatic encephalopathy Portal vein thrombosis Cirrhosis Splenic vein thrombosis Sepsis Cirrhosis of liver with ascites Abdominal pain Thrombocytopenia Pancytopenia Cirrhosis Hepatitis C virus infection Esophageal varices Pancytopenia Iron deficiency anemia Cirrhosis Hepatitis C HBP (high blood pressure) Surgical History S/P TIPS (transjugular intrahepatic portosystemic shunt) H/O left inguinal hernia repair H/O eye surgery History of esophagogastroduodenoscopy (EGD) H/O colonoscopy Family History Family History Maternal Grandmother Breast CA Uterus cancer Mother Primary lung cancer of unknown cell type Social History Social History Household Members: Other Household Members Other:: longterm Housing: Other Housing Other:: Detention Are you a primary care management associate to a significant other at home: No Do you presently have visiting nurse or other home services: No Comment: pt refusing alarm's Patient Tobacco Use Status: Never used Tobacco Tobacco use type: Cigarette Cigarette Packs Per Day: 1 Cigarettes Per Day: 5 Years Smoked: 30 Second Hand Smoke Exposure: No Substance Use Type: Crack/Cocaine and Marijuana Advance Directives: Yes Advance Directives on File: Yes Advance Directives Date on File: 04/02/24 service: No Current occupational status: retired Physical Exam ED Vital Signs: Vital Signs - 24 hr 12/26/24 16:07 12/26/24 16:09 12/26/24 18:02 Temperature 97.3 F 97.3 F Pulse Rate 71 74 74 Respiratory Rate 16 16 16 Blood Pressure 139/61 139/61 139/61 Pulse Oximetry 99 100 100 Oxygen Delivery Method Room Air Room Air Room Air BMI result Body Mass Index 32.4 Const Other: EXAM: Gen: Alert, awake, well appearing, well hydrated. Head: Atraumatic Eyes: Left eye normal. Right eye with chronic enucleation no prosthetic. Perhaps minimal protuberance of the inferior lid there is a very small amount of dried blood just at the lid margin on the left side no clear lacerations or bleeding source the conjunctiva that is exposed did not appear erythematous or infected and there is no periorbital or preseptal edema ENT: Moist mucosa, no pallor. ? Neck: Supple. Respiratory: Breathing comfortably, No distress.Clear to auscultation bilaterally, symmetric chest expansion, No wheeze, rales, ronchi. Cardiovascular: Regular rate and rhythm. No murmurs or rub. Well perfused periphery, warm extremities. No edema. ? Abdominal: Soft, no objective distension. No palpable masses or obvious organomegaly. No focal tenderness, no guarding, no rebound tenderness or other peritoneal findings. : No flank tenderness. Neuro: Alert. Gross movement of all extremities intact. ? Vital signs: See flowsheet Medications Administered Discontinued Medications Generic Name Dose Route Start Last Admin Trade Name Freq PRN Reason Stop Dose Admin Erythromycin 1 cm 12/26/24 17:17 12/26/24 18:02 Erythromycin Base 0.5% Oph Oin 1 Gm Tube EYE-RIGHT 12/26/24 17:18 1 cm ONCE STA Administration Oxycodone HCl 5 mg 12/26/24 16:37 12/26/24 16:56 Oxycodone Hcl Immed Release 5 Mg Tablet PO 12/26/24 16:38 5 mg ONCE ONE Administration Medical Decision Making Medical Decision Making MDM Narrative: This is a 64-year-old male with complicated medical history chronic thrombocytopenia secondary to cirrhosis and chronic liver disease as well as a chronic remote enucleation who as above had a right eye prosthetic canceled yesterday due to low platelets. Small amount of bleeding that appears to have resolved. We will monitor him a little bit here to make sure that there is no recurrent bleeding that does not appear to be repairable laceration or clear source of the bleeding. He is clearly prone to bleed with low platelets but at a level of 29 and not concerned about sudden or severe or rapid hemorrhage. I will defer ophthalmology care to [facility] where the local [place] office has referred this patient. No other acute issues the patient does not appear to be in hepatic encephalopathy we will discharge home Lab Data 12/26/24 16:51 12/26/24 16:51 Labs: Lab Results 12/26/24 Range/Units 16:51 WBC 2.3 L (4.8-10.8) X10*3/uL RBC 3.66 L (4.60-5.80) X10*6/uL Hgb 11.0 L (14.0-18.0) g/dl Hct 31.8 L (42.0-52.0) % MCV 86.9 (80.0-98.0) fL MCH 30.1 (27.0-33.0) pg MCHC 34.6 (31.0-36.0) g/dl RDW 16.3 H (11.0-16.0) % Plt Count 29 L (160-400) X10*3/uL MPV 10.6 (9.4-12.4) fL Immature Gran % (Auto) 0.4 (0.0-0.4) % Neut % (Auto) 58.1 (45-73) % Lymph % (Auto) 30.8 (20-40) % [place] % (Auto) 9.0 (2-11) % Eos % (Auto) 1.3 (0-4) % Baso % (Auto) 0.4 (0-2) % Lymph # (Auto) 0.7 L (1.2-4.9) X10*3/uL [place] # (Auto) 0.2 (0.1-1.2) X10*3/uL Eos # (Auto) 0.0 (0.0-0.4) X10*3/uL Baso # (Auto) 0.0 (0.0-0.2) X10*3/uL Abs Immat Gran (auto) 0.01 (0.00-0.03) X10*3/uL Absolute Neuts (auto) 1.4 L (2.0-8.3) x10*3/uL Absolute Nucleated RBC 0.000 (0.0-0.012) X10*3/uL Nucleated RBC % (auto) 0.0 (0.0-0.2) /100WBC Smear Tech's Comments VERIFIED Sodium 143 (135-145) mmol/L Potassium 4.7 (3.3-5.1) mmol/L Chloride 115 H (96-108) mmol/L Carbon Dioxide 25 (22-29) mmol/L Anion Gap 8 L (12-20) BUN 12 (9-16) mg/dL Creatinine 0.87 (0.5-1.4) mg/dL Estim Creat Clear Calc 94.8 Estimated GFR > 60 Random Glucose 93 (60-115) mg/dL Calcium 8.8 (8.4-10.2) mg/dL Total Bilirubin 1.8 H (0.0-1.0) mg/dL AST 53 H (5-37) U/L ALT 35 (0-40) U/L Alkaline Phosphatase 147 H (39-117) U/L Ammonia 109 H (13-55) umol/L C-Reactive Protein < 0.10 (< or = 0.50) mg/dL Total Protein 6.7 (6.5-8.0) g/dL Albumin 3.1 L (3.5-5.0) g/dL Discharge Plan Discharge Clinical Impression: Thrombocytopenia, Conjunctival hemorrhage Patient Disposition: Home, Self-Care Instructions: Subconjunctival Hemorrhage (ED), Thrombocytopenia (ED) Additional Instructions: DISCHARGE DIAGNOSES: Chronic low platelets, today platelet level 29 Bleeding, resolved from the right eye conjunctiva HISTORY OF PRESENTATION: Small amount of bleeding from the right eye conjunctiva EMERGENCY DEPARTMENT COURSE,TESTS, TREATMENTS: While in the ED today we applied bacitracin to this area and monitored and checked her blood work which was stable DISCHARGE MEDICATIONS: ?[We have made no changes to your regular medication regimen] FOLLOW-UP: ?Call your primary or general physician soon as possible to discuss your symptoms, your ED visit and to discuss follow up plans Continue with your follow up at [facility] for definitive eye care. Return back for severe or worsening bleeding from the eye INSTRUCTIONS ?& RETURN PRECAUTIONS: If any symptoms change first call your primary physician, if it is after-hours your primary doctors office should have a provider loss control manager you can speak with. If the symptoms are severe or very concerning to you then call 911 or return to the ED. Cash Reno MD Emergency Physician [facility] Prescriptions: No Action carvedilol 3.125 mg tablet 3.125 mg PO BID Qty: 60 3RF furosemide 40 mg tablet 40 mg PO DAILY clotrimazole 1 % cream 1 appl topical BID ascorbic acid (vitamin C) 250 mg tablet 250 mg PO DAILY ferrous sulfate 325 mg (65 mg iron) tablet 325 mg PO DAILY amlodipine 5 mg Tablet 5 mg PO DAILY lactulose 10 gram/15 mL Solution 30 g PO TID Qty: 1500 0RF Interventions: ED Discharge Assessment Last Done: 12/26/24 18:02 Discharge Date/Time: 12/26/24 18:04 Print Language: Greek
[2024-12-26] MEDS: oxyCODONE HCl Immed Release 5 MG TABLET PO (16:56)
[2024-12-26 17:00] LABS: Basophils Percent Auto 0.4 % (0-2); Eosinophils Percent Auto 1.3 % (0-4); Hematocrit 31.8 % (42.0-52.0); Imm Gran Abs Auto 0.01 X10*3/uL (0.00-0.03); Imm Gran Pct Auto 0.4 % (0.0-0.4); Lymphocytes Absolute Auto 0.7 X10*3/uL (1.2-4.9); Lymphocytes Percent Auto 30.8 % (20-40); MANUAL DIFF FLAG SCAN; Mean Corpuscular HGB Conc 34.6 g/dl (31.0-36.0); Mean Corpuscular Hemoglobin 30.1 pg (27.0-33.0); Mean Corpuscular Volume 86.9 fL (80.0-98.0); Mean Platelet Volume 10.6 fL (9.4-12.4); Monocytes Absolute Auto 0.2 X10*3/uL (0.1-1.2); Neutrophils Absolute Auto 1.4 x10*3/uL (2.0-8.3); Neutrophils Percent Auto 58.1 % (45-73); Red Blood Count 3.66 X10*6/uL (4.60-5.80); Red Cell Distribution Width 16.3 % (11.0-16.0); SCAN SMEAR FLAG 1
[2024-12-26 17:01] LABS: Platelet Count 29 X10*3/uL (160-400); White Blood Count 2.3 X10*3/uL (4.8-10.8)
[2024-12-26 17:04] LABS: Ammonia 109 umol/L (13-55)
[2024-12-26 17:19] LABS: Alanine Aminotransferase 35 U/L (0-40); Albumin Level 3.1 g/dL (3.5-5.0); Anion Gap 8 (12-20); Aspartate Amino Transferase 53 U/L (5-37); Bilirubin Total 1.8 mg/dL (0.0-1.0); Blood Urea Nitrogen 12 mg/dL (9-16); C Reactive Protein < 0.10 mg/dL (< or = 0.50); Calcium 8.8 mg/dL (8.4-10.2); Carbon Dioxide 25 mmol/L (22-29); Chloride 115 mmol/L (96-108); Creatinine Clr Calc Pharmacy 94.8; Estimated Glomerular Filt Rate > 60; Glucose Random 93 mg/dL (60-115); Potassium 4.7 mmol/L (3.3-5.1); Sodium 143 mmol/L (135-145); Total Protein 6.7 g/dL (6.5-8.0)
[2024-12-26 17:38] LABS: SLIDE REVIEW VERIFIED
[2024-12-26 18:02] VITALS: BP 139/61; PULSE 74; RESP 16; TEMP 36.3; O2SAT 100
[2024-12-26] MEDS: Erythromycin Base 0.5% Oph Oin 1 GM TUBE 1 CM EYE-RIGHT (18:02)
[2024-12-26 18:42] LABS: Alkaline Phosphatase 147 U/L (39-117)
== END 2024-12-26 18:04 | disposition home or self-care (01) ==
PROVIDERS: Emergency Provider Emergency Medicine
DX: H11.31 Conjunctival hemorrhage, right eye (principal); D69.6 Thrombocytopenia, unspecified; H57.11 Ocular pain, right eye; Z79.899 Other long term (current) drug therapy
CPT/HCPCS: 36415; 80053; 82140; 85025; 86140; 99283; 99284

== ENCOUNTER 2025-01-01 10:56 | Outpatient (REF) | payer MEDICAID, SELFPAY ==
[2025-01-01 13:50] LABS: Syphilis Screen Nonreactive (Nonreactive)
[2025-01-01 13:56] LABS: HIV AB/AG Nonreactive (Nonreactive); HIV Num 1 0.06 S/CO (0.00-0.99); ~HepC Num1 13.23 S/CO (0.00-0.79); ~Hepatitis C Antibody Reactive (Nonreactive)
[2025-01-06 17:39] LABS: HCV Log PCR <1.18 NOT DETECTED Log IU/mL (NOT DETECTED); HepC Viral Load <15 NOT DETECTED IU/mL (NOT DETECTED)
== END 2025-01-01 10:57 | disposition home or self-care (01) ==
LOC: HO.HHCL 10:56
PROVIDERS: Visit Provider Student in an Organized Health Care Education/Training Program
DX: Z00.00 Encounter for general adult medical examination without abnormal findings (principal); Z11.4 Encounter for screening for human immunodeficiency virus [HIV]
CPT/HCPCS: 36415; 86780; 86803; 87389; 87522

== ENCOUNTER 2025-01-03 20:29 | Emergency (ER) | payer MEDICAID, SELFPAY ==
--- NOTE | 2025-01-03 | ECG_ITS ---
Test Reason : CHEST PAIN AND HIGH BLOOD PERSURE Blood Pressure : */* mmHG Vent. Rate : 82 BPM Atrial Rate : 82 BPM P-R Int : 140 ms QRS Dur : 84 ms QT Int : 382 ms P-R-T Axes : 45 15 59 degrees QTcB Int : 446 ms Normal sinus rhythm Normal ECG When compared with ECG of 20-Dec-2024 13:22, No significant change was found Referred By: Generic ED Physician Electronically Signed By: ЕКАТЕРИНА ZARAGOZA
[2025-01-03 20:34] VITALS: BP 218/82; PULSE 68; O2SAT 100
[2025-01-03 20:41] VITALS: BP 204/70; BMI 29.9
[2025-01-03 20:55] VITALS: BP 153/53; PULSE 82; RESP 16; TEMP 36.5; O2SAT 99
[2025-01-03 20:55] LABS: MANUAL DIFF FLAG NO
[2025-01-03 21:00] LABS: Eosinophils Percent Auto 1.4 % (0-4); Hematocrit 30.8 % (42.0-52.0); Hemoglobin 10.6 g/dl (14.0-18.0); Imm Gran Abs Auto 0.01 X10*3/uL (0.00-0.03); Imm Gran Pct Auto 0.5 % (0.0-0.4); Lymphocytes Absolute Auto 0.6 X10*3/uL (1.2-4.9); Lymphocytes Percent Auto 27.6 % (20-40); Mean Corpuscular HGB Conc 34.4 g/dl (31.0-36.0); Mean Corpuscular Hemoglobin 30.3 pg (27.0-33.0); Monocytes Absolute Auto 0.2 X10*3/uL (0.1-1.2); Monocytes Percent Auto 7.5 % (2-11); Neutrophils Absolute Auto 1.4 x10*3/uL (2.0-8.3); Red Cell Distribution Width 16.1 % (11.0-16.0); SCAN SMEAR FLAG 1
[2025-01-03 21:01] LABS: White Blood Count 2.1 X10*3/uL (4.8-10.8)
[2025-01-03 21:02] LABS: Platelet Count 18 X10*3/uL (160-400)
[2025-01-03 21:13] LABS: Alanine Aminotransferase 35 U/L (0-40); Albumin Level 3.1 g/dL (3.5-5.0); Alkaline Phosphatase 165 U/L (39-117); Anion Gap 8 (12-20); Aspartate Amino Transferase 54 U/L (5-37); Bilirubin Total 1.6 mg/dL (0.0-1.0); Blood Urea Nitrogen 12 mg/dL (9-16); Carbon Dioxide 23 mmol/L (22-29); Chloride 115 mmol/L (96-108); Creatinine Clr Calc Pharmacy 108.9; Estimated Glomerular Filt Rate > 60; Glucose Random 133 mg/dL (60-115); Lipase 24 U/L (8-78); Magnesium 2.1 mg/dL (1.6-2.6); Potassium 4.5 mmol/L (3.3-5.1); Sodium 141 mmol/L (135-145); Total Protein 6.4 g/dL (6.5-8.0)
[2025-01-03 21:18] LABS: B Type Natriuretic Peptide 113 pg/mL (<100)
[2025-01-03 21:20] LABS: Troponin-I High Sensitivity 79.7 ng/L (<3.5-35.0)
--- NOTE | 2025-01-03 22:12 | MHC.EDTECH ---
[facility] office #[phone]
[2025-01-03 22:14] VITALS: BP 121/71; PULSE 77; RESP 17; TEMP 36.9; O2SAT 100
--- NOTE | 2025-01-03 22:16 | PC.NURSE ---
pt biba from senior living, a&ox4, respirations even and unlabored. reports onset of left sided chest pain starting this morning, pt also reporting high blood pressure. pt nsr on tele 70/77bpm. 20G placed in right ac. labs obtained. pt denies nausea, and shortness of breath.
--- NOTE | 2025-01-03 23:02 | ED_ITS ---
HPI - General Adult General Chief complaint: General Medical Stated complaint: dizzy, fatigue Time Seen by Provider: 01/03/25 23:02 History of Present Illness ED Provider: James EM narrative: The patient is a 64-year-old male with a history of chronic liver disease. [facility] The details are very uncertain because the patient is a very vague historian. Apparently the patient had initially been complaining of dizziness, headaches, and a high blood pressure and left-sided chest pain. At the time that I saw the patient he was denying any of these symptoms but he seemed mildly confused. He could not really give me the details of what had happened earlier in the day. I called the penitentiary and spoke to the overnight attendant. The penitentiary [facility] apparently [facility] a [address]. The night attendant did not know any of the details that resulted in the patient being sent to the hospital but it was his impression that the patient has been dropped off there and had not been at the penitentiary during the day and that he did not seem quite right. Related Data Home Medications ?Medication ?Instructions ?Recorded ?Confirmed amlodipine 5 mg tablet 5 mg PO DAILY 12/03/24 12/20/24 ascorbic acid (vitamin C) 250 mg 250 mg PO DAILY 12/03/24 12/20/24 tablet clotrimazole 1 % topical cream 1 appl topical BID 12/03/24 12/20/24 ferrous sulfate 325 mg (65 mg 325 mg PO DAILY 12/03/24 12/20/24 iron) tablet furosemide 40 mg tablet 40 mg PO DAILY 12/03/24 12/20/24 Previous Rx's ?Medication ?Instructions ?Recorded carvedilol 3.125 mg tablet 3.125 mg PO BID #60 tabs 11/24/24 lactulose 10 gram/15 mL oral 30 g (45 mL) PO TID #1,500 mL 12/05/24 solution Allergies Allergy/AdvReac Type Severity Reaction Status Date / Time dicyclomine [From Bentyl] Allergy Unknown Verified 01/03/25 20:42 aspirin AdvReac Severe stomach Verified 01/03/25 20:42 bleeding NSAIDS (Non-Steroidal AdvReac Severe liver Verified 01/03/25 20:42 Anti-Inflamma concerns Review of Systems 2 Review of Systems: Yes all other systems are reviewed and are negative PMFSH Past Medical History Medical History Hepatic encephalopathy Portal vein thrombosis Cirrhosis Splenic vein thrombosis Sepsis Cirrhosis of liver with ascites Abdominal pain Thrombocytopenia Pancytopenia Cirrhosis Hepatitis C virus infection Esophageal varices Pancytopenia Iron deficiency anemia Cirrhosis Hepatitis C HBP (high blood pressure) Surgical History S/P TIPS (transjugular intrahepatic portosystemic shunt) H/O left inguinal hernia repair H/O eye surgery History of esophagogastroduodenoscopy (EGD) H/O colonoscopy Family History Family History Maternal Grandmother Breast CA Uterus cancer Mother Primary lung cancer of unknown cell type Social History Social History Household Members: Other Household Members Other:: penitentiary Housing: Other Housing Other:: Group Home Are you a primary home care and home health aides teacher to a significant other at home: No Do you presently have visiting nurse or other home services: No Comment: pt refusing alarm's Patient Tobacco Use Status: Never used Tobacco Tobacco use type: Cigarette Cigarette Packs Per Day: 1 Cigarettes Per Day: 5 Years Smoked: 30 Smoked in Last 30 Days: No Second Hand Smoke Exposure: No Use of substances other than those prescribed or required for medical reasons: No Substance Use Type: Crack/Cocaine and Marijuana Advance Directives: Yes Advance Directives on File: Yes Advance Directives Date on File: 04/02/24 Do you have a plan to hurt others: No Plan service: No Current occupational status: retired Physical Exam ED Vital Signs: Vital Signs - 24 hr 01/03/25 20:41 01/03/25 20:55 01/03/25 22:14 Temperature 97.7 F 98.5 F Pulse Rate 82 77 Respiratory Rate 16 17 Blood Pressure 204/70 H 153/53 H 121/71 Pulse Oximetry 99 100 Oxygen Delivery Method Room Air Room Air 01/04/25 02:27 01/04/25 04:29 01/04/25 06:00 Temperature Pulse Rate 73 70 70 Respiratory Rate 20 20 17 Blood Pressure 118/40 L 124/46 L 120/43 L Pulse Oximetry 99 94 97 Oxygen Delivery Method Room Air Room Air Room Air 01/04/25 08:59 Temperature 98.2 F Pulse Rate 73 Respiratory Rate 14 Blood Pressure 147/63 H Pulse Oximetry 94 Oxygen Delivery Method Room Air BMI result Body Mass Index 29.9 Const Other: The patient is a chronically ill-appearing 64-year-old. He is awake and alert and does not seem in distress. 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 Mucous membranes are moist. 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 Left eye has a room pupil that appears normal and reactive, extraocular movements of the left eye are normal. Conjunctiva is clear. Neck Neck: Yes full ROM and Yes no JVD Resp Effort & Inspection: normal respiratory effort Auscultation: clear to auscultation bilaterally Cardio Rate: regular rate Rhythm: regular rhythm Heart sounds: S1 normal heart sound present and S2 normal heart sound present GI Other: The abdomen is soft. It is not distended. It is not tense. I do not appreciate any ascites. Skin Other: Skin is pale and dry Neuro Other: The patient is awake and alert. He has a very vague affect. He knows that we are in [place]. He could not definitely say that this was [facility]. Cranial nerves seemed grossly intact. He moves his extremities symmetrically. No obvious asterixis. My overall impression was that he was not frankly encephalopathic. Extrem Other: Mild peripheral edema without pitting. Good perfusion of the legs Medications Administered Discontinued Medications Generic Name Dose Route Start Last Admin Trade Name Freq PRN Reason Stop Dose Admin Lactulose 40 gm 01/04/25 02:53 01/04/25 03:26 Lactulose 20 Gm/30 Ml Solution PO 01/04/25 02:54 40 gm ONCE ONE Administration Rifaximin 550 mg 01/04/25 02:49 01/04/25 03:26 Rifaximin 550 Mg Tablet PO 01/04/25 02:50 550 mg ONCE ONE Administration Medical Decision Making Medical Decision Making MDM Narrative: The patient is a 64-year-old male with a history of chronic liver disease. He apparently normally lives at a [facility] penitentiary at [address] Apparently he has been somewhere else and had been dropped off returning to the penitentiary this evening when he complained of possible headache and dizziness and was sent here by staff at the penitentiary. When I spoke to the patient he had no complaints. He had a vague affect. He did not seem frankly encephalopathic however. Medical testing reveals a lot of chronic abnormalities including chronic leukopenia, chronic anemia, and chronic thrombocytopenia. The differential in his white count is normal however. His basic metabolic panel is not frankly abnormal. Renal function is good. His LFTs show numerous abnormalities similar to previous labs. His ammonia today is 146 but it seems as though he rarely has a normal ammonia. The patient was given a dose of lactulose and rifaximin. His vital signs were unremarkable. The patient was observed throughout the night. In the morning I was able to reach his niece Sherie who told me that the patient had spent the day with his brother yesterday and had complained of dizziness when he had returned to [place] [id number]. This morning the patient seemed steady on his feet and ate a good meal this morning. He seemed well and eager to return to [place] [address]. His niece Sherie was called again and she picked him up to return him to [place] [address]. He is advised to follow up with his PCP. Lab Data 01/03/25 20:50 01/03/25 20:50 Labs: Lab Results 01/03/25 01/03/25 01/04/25 Range/Units 20:50 22:59 02:19 WBC 2.1 L (4.8-10.8) X10*3/uL RBC 3.50 L (4.60-5.80) X10*6/uL Hgb 10.6 L (14.0-18.0) g/dl Hct 30.8 L (42.0-52.0) % MCV 88.0 (80.0-98.0) fL MCH 30.3 (27.0-33.0) pg MCHC 34.4 (31.0-36.0) g/dl RDW 16.1 H (11.0-16.0) % Plt Count 18 L* (160-400) X10*3/uL MPV TNP Immature Gran % (Auto) 0.5 H (0.0-0.4) % Neut % (Auto) 63.0 (45-73) % Lymph % (Auto) 27.6 (20-40) % [place] % (Auto) 7.5 (2-11) % Eos % (Auto) 1.4 (0-4) % Baso % (Auto) 0.0 (0-2) % Lymph # (Auto) 0.6 L (1.2-4.9) X10*3/uL [place] # (Auto) 0.2 (0.1-1.2) X10*3/uL Eos # (Auto) 0.0 (0.0-0.4) X10*3/uL Baso # (Auto) 0.0 (0.0-0.2) X10*3/uL Abs Immat Gran (auto) 0.01 (0.00-0.03) X10*3/uL Absolute Neuts (auto) 1.4 L (2.0-8.3) x10*3/uL Absolute Nucleated RBC 0.000 (0.0-0.012) X10*3/uL Nucleated RBC % (auto) 0.0 (0.0-0.2) /100WBC Sodium 141 (135-145) mmol/L Potassium 4.5 (3.3-5.1) mmol/L Chloride 115 H (96-108) mmol/L Carbon Dioxide 23 (22-29) mmol/L Anion Gap 8 L (12-20) BUN 12 (9-16) mg/dL Creatinine 0.85 (0.5-1.4) mg/dL Estim Creat Clear Calc 108.9 Estimated GFR > 60 Random Glucose 133 H (60-115) mg/dL Calcium 9.0 (8.4-10.2) mg/dL Magnesium 2.1 (1.6-2.6) mg/dL Total Bilirubin 1.6 H (0.0-1.0) mg/dL AST 54 H (5-37) U/L ALT 35 (0-40) U/L Alkaline Phosphatase 165 H (39-117) U/L Ammonia 146 H (13-55) umol/L Troponin I High Sens 79.7 H D 74.6 H (<3.5-35.0) ng/L B-Natriuretic Peptide 113 H (<100) pg/mL Total Protein 6.4 L (6.5-8.0) g/dL Albumin 3.1 L (3.5-5.0) g/dL Lipase 24 (8-78) U/L Discharge Plan Discharge Clinical Impression: Dizziness, Chronic liver disease Patient Disposition: Home, Self-Care Additional Instructions: Please continue all of your regular medications. Please follow up this week with your regular doctor. Return to the emergency room if worse. Prescriptions: No Action carvedilol 3.125 mg tablet 3.125 mg PO BID Qty: 60 3RF furosemide 40 mg tablet 40 mg PO DAILY clotrimazole 1 % cream 1 appl topical BID ascorbic acid (vitamin C) 250 mg tablet 250 mg PO DAILY ferrous sulfate 325 mg (65 mg iron) tablet 325 mg PO DAILY amlodipine 5 mg Tablet 5 mg PO DAILY lactulose 10 gram/15 mL Solution 30 g PO TID Qty: 1500 0RF Referrals: Leta Soto MD [Primary Care Provider] - Interventions: ED Discharge Assessment Last Done: 01/04/25 08:59 Discharge Date/Time: 01/04/25 09:26 Print Language: Croatian
[2025-01-03 23:27] LABS: Troponin-I High Sensitivity 74.6 ng/L (<3.5-35.0)
[2025-01-04 02:27] VITALS: BP 118/40; PULSE 73; RESP 20; O2SAT 99
--- NOTE | 2025-01-04 02:28 | PC.NURSE ---
pt labs drawn per provider order, pt states that after this he no longer wants to be poked and if he needs more labs he refuses
[2025-01-04 02:41] LABS: Ammonia 146 umol/L (13-55)
[2025-01-04] MEDS: rifAXIMin 550 MG TABLET PO (03:26)
[2025-01-04] MEDS: Lactulose 20 GM/30 ML SOLUTION 40 GM PO (03:26)
--- NOTE | 2025-01-04 03:27 | PC.NURSE ---
health insurance adjuster at bedside, pt medicated per mar, tolerated whole well with water. pt given warm blanket.
[2025-01-04 04:29] VITALS: BP 124/46; PULSE 70; RESP 20; O2SAT 94
[2025-01-04 06:00] VITALS: BP 120/43; PULSE 70; RESP 17; O2SAT 97
--- NOTE | 2025-01-04 07:50 | PC.NURSE ---
patient ambulated to the bathroom independently with steady gait, requesting breakfast. provider reaching out to family in regards to dispo for patient.
[2025-01-04 08:59] VITALS: BP 147/63; PULSE 73; RESP 14; TEMP 36.8; O2SAT 94
== END 2025-01-04 09:26 | disposition home or self-care (01) ==
PROVIDERS: Emergency Provider Emergency Medicine; PCP Student in an Organized Health Care Education/Training Program
DX: R07.89 Other chest pain (principal); R03.0 Elevated blood-pressure reading, without diagnosis of hypertension; K76.9 Liver disease, unspecified; R42 Dizziness and giddiness; R51.9 Headache, unspecified; R41.0 Disorientation, unspecified; Z79.899 Other long term (current) drug therapy
CPT/HCPCS: 36415; 80053; 82140; 83690; 83735; 83880; 84484; 85025; 93005; 99283; 99284

== ENCOUNTER → 2025-01-03 20:42 | Outpatient (BNV) | payer MEDICAID, SELFPAY | PROVIDERS: Emergency Provider Emergency Medicine; PCP Student in an Organized Health Care Education/Training Program; Visit Provider Internal Medicine | DX: I10 Essential (primary) hypertension (principal); R07.9 Chest pain, unspecified | CPT/HCPCS: 93010 ==

== ENCOUNTER 2025-01-21 13:58 | Emergency (ER) | payer MEDICAID, SELFPAY ==
--- NOTE | ~2025-01-21 | CT_ITS ---
CLINICAL HISTORY: fall yest CT head without contrast Comparison: CT/SR - CT HEAD/BRAIN WO IV CON - 12/20/24 14:34 EDT Findings: No intra-axial mass, midline shift, hydrocephalus, or acute hemorrhage. No significant atrophy-like change or white matter disease. There is no sinus or mastoid fluid. 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 No acute skull fracture. IMPRESSION: 1. No acute intracranial findings. This document has been electronically signed by: Daphne Jensen MD on 01/21/2025 18:36:51
--- NOTE | ~2025-01-21 | CT_ITS ---
CLINICAL HISTORY: abd pain, N CT abdomen and pelvis with contrast Comparison: CT/SR - CT ABDOMEN PELVIS WO/W IV CON - 12/03/24 17:36 EDT Findings: No consolidation or effusion. Minimal bilateral basilar dependent atelectasis and interstitial changes. Unremarkable gallbladder. No biliary ductal dilatation. Liver is small and nodular consistent with cirrhosis. Shunt in the liver consistent with previous tips procedure. Stable significant splenomegaly and otherwise the spleen is within normal limits. Partial thrombosis of main portal vein appears stable. Pancreas and adrenal glands are unremarkable. Stable small bilateral renal cortical cysts. Enhancement of bilateral kidneys. No ureteral stones and no hydronephrosis or hydroureter. No bowel obstruction, pneumoperitoneum, or pneumatosis. No ascites. Diverticulosis [id number] colonic stool with significant stool in rectosigmoid and some rectal distention. The appendix is unremarkable. Urinary bladder and prostate within normal limits. Atherosclerotic vascular disease with no abdominal aortic aneurysm. Minimal fat containing umbilical hernia. No acute fracture. Degenerative changes lumbar spine and mild degenerative changes bilateral hips. IMPRESSION: 1. Overall stable findings consistent with previous tips procedure, cirrhosis, significant splenomegaly and partial thrombosis of main portal vein. 2. Moderate colonic stool with prominent rectosigmoid stool and rectal distention may represent fecal impaction. 3. Additional nonacute findings as described. This document has been electronically signed by: Daphne Jensen MD on 01/21/2025 18:26:02
--- NOTE | ~2025-01-21 | XR_ITS ---
EXAMINATION: XR CHEST 1 VIEW HISTORY: Weakness COMPARISON: Comparison is made with the prior examination dated 11/12/2024. FINDINGS: A single AP portable view of the chest performed at 3:33 PM is submitted. There is increased density in the left upper lung zone, which is for pneumonia. Additional streaky opacities are seen in the right upper and lower lung zones. There is no pleural effusion, pneumothorax, or pulmonary vascular congestion. The heart is normal in size. The bones are intact. A stent is seen in the right upper quadrant. XR/XR chest 1V IMPRESSION: Left upper lobe pneumonia. Follow-up is recommended to document resolution. Electronically signed by: Dieter Morse MD 01/21/2025 03:42 PM EDT
--- NOTE | ~2025-01-21 | CT_ITS ---
CLINICAL HISTORY: fall yest CT cervical spine without contrast Comparison: CT/SR - CT CERVICAL SPINE WO IV CON - 11/07/24 00:25 EST Findings: Minimal anterolisthesis at C3-4, C6-7 and C7-T1 which appears stable. Vertebral body height is maintained. No acute fracture in the cervical spine. Craniocervical junction is intact. Significant degenerative disc disease at C6-7. Prevertebral soft tissues within normal limits. Thyroid appears unremarkable. Lung apices are clear. IMPRESSION: 1. No acute fracture. 2. Stable minimal anterolisthesis C3-4, C6-7 and C7-T1. 3. Degenerative disc disease C6-7. This document has been electronically signed by: Daphne Jensen MD on 01/21/2025 18:33:02
[2025-01-21 14:17] VITALS: BP 153/58; BP 174/74; PULSE 72; PULSE 91; RESP 16; TEMP 36.6; O2SAT 100; O2SAT 97; BMI 33.2
--- NOTE | 2025-01-21 15:09 | ED_ITS ---
HPI - General Adult General Chief complaint: General Medical Stated complaint: Dizziness, headache, x3 days, Latvian only Time Seen by Provider: 01/21/25 15:08 Source: patient, EMS, RN notes reviewed and old records reviewed Mode of arrival: EMS History of Present Illness ED Provider: Griselda Conley PA-C HPI narrative: 64-year-old male with a past medical history of cirrhosis s/p TIPs, chronic hep C, portal hypertension, esophageal varices, splenic and PVT thrombosis but not on AC therapy due to varices/thrombocytopenia, presenting to the ED via EMS complaining of generalized fatigue/weakness, lightheadedness, feeling unwell, nausea, headache, orthopnea, abdominal pain, and emesis x1 this morning. Also reports mechanical fall backwards yesterday without head strike or LOC secondary to feeling lightheaded/dizzy. States was able to get himself off the ground without complication. Denies chest pain, diarrhea, dysuria/hematuria Related Data Home Medications ?Medication ?Instructions ?Recorded ?Confirmed amlodipine 5 mg tablet 5 mg PO DAILY 12/03/24 12/20/24 ascorbic acid (vitamin C) 250 mg 250 mg PO DAILY 12/03/24 12/20/24 tablet clotrimazole 1 % topical cream 1 appl topical BID 12/03/24 12/20/24 ferrous sulfate 325 mg (65 mg 325 mg PO DAILY 12/03/24 12/20/24 iron) tablet furosemide 40 mg tablet 40 mg PO DAILY 12/03/24 12/20/24 Previous Rx's ?Medication ?Instructions ?Recorded carvedilol 3.125 mg tablet 3.125 mg PO BID #60 tabs 11/24/24 lactulose 10 gram/15 mL oral 30 g (45 mL) PO TID #1,500 mL 12/05/24 solution amoxicillin 875 mg-potassium 1 tab PO BID #14 tabs 01/22/25 clavulanate 125 mg tablet azithromycin 250 mg tablet 250 mg PO DAILY 4 days #4 tabs 01/22/25 Allergies Allergy/AdvReac Type Severity Reaction Status Date / Time dicyclomine [From Bentyl] Allergy Unknown Verified 01/21/25 14:19 aspirin AdvReac Severe stomach Verified 01/21/25 14:19 bleeding NSAIDS (Non-Steroidal AdvReac Severe liver Verified 01/21/25 14:19 Anti-Inflamma concerns Review of Systems 2 Review of Systems: Yes all other systems are reviewed and are negative Constitutional: Constitutional: Reports as per [facility] Past Medical History Attestation statement: The following information was validated with the patient. Source: old records reviewed Medical History Cirrhosis of liver Hepatic encephalopathy Portal vein thrombosis Cirrhosis Splenic vein thrombosis Sepsis Cirrhosis of liver with ascites Abdominal pain Thrombocytopenia Pancytopenia Cirrhosis Hepatitis C virus infection Esophageal varices Pancytopenia Iron deficiency anemia Cirrhosis Hepatitis C HBP (high blood pressure) Surgical History S/P TIPS (transjugular intrahepatic portosystemic shunt) H/O left inguinal hernia repair H/O eye surgery History of esophagogastroduodenoscopy (EGD) H/O colonoscopy Family History Family History Maternal Grandmother Breast CA Uterus cancer Mother Primary lung cancer of unknown cell type Social History Social History Household Members: Other Household Members Other:: residential Housing: Other Housing Other:: Nursing Home Are you a primary career services director to a significant other at home: No Do you presently have visiting nurse or other home services: No Comment: pt refusing alarm's Patient Tobacco Use Status: Never used Tobacco Tobacco use type: Cigarette Cigarette Packs Per Day: 1 Cigarettes Per Day: 5 Years Smoked: 30 Second Hand Smoke Exposure: No Substance Use Type: Crack/Cocaine and Marijuana Advance Directives Date on File: 04/02/24 service: No Current occupational status: retired Physical Exam ED Vital Signs: Vital Signs - 24 hr 01/21/25 17:19 01/21/25 17:19 01/21/25 17:19 Temperature 97.5 F Pulse Rate 79 76 Respiratory Rate 16 Blood Pressure 135/52 L 152/62 H Pulse Oximetry 96 Oxygen Delivery Method Room Air 01/21/25 17:20 01/21/25 20:02 01/22/25 05:15 Temperature 98.1 F 98.5 F Pulse Rate 84 71 73 Respiratory Rate 16 16 Blood Pressure 171/75 H 147/62 H 123/45 L Pulse Oximetry 100 97 Oxygen Delivery Method Room Air Room Air 01/22/25 08:49 01/22/25 14:57 Temperature 97.8 F 97.8 F Pulse Rate 78 78 Respiratory Rate 18 18 Blood Pressure 139/45 L 139/45 L Pulse Oximetry 100 100 Oxygen Delivery Method Room Air Room Air BMI result Body Mass Index 33.2 Const General: cooperative and no acute distress Orientation/consciousness: oriented to person and oriented to place HENMA Head: Yes normal to inspection and Yes atraumatic Ears: hearing grossly normal bilaterally General nose exam: Normal external nose present Face and sinus: Yes normal facial exam Eyes General: appearance normal, both eyes and all related structures EOM: EOMs intact bilaterally Neck Neck: Yes normal visual inspection and Yes no meningeal signs Resp Effort & Inspection: normal respiratory effort and no respiratory distress Auscultation: crackles bilateral at the base Cardio Rate: regular rate Heart sounds: S1 normal heart sound present and S2 normal heart sound present GI Inspection: Yes normal to inspection Palpation (GI): Soft to palpation, Tenderness to palpation present (GI) (diffusely) with no rebound tenderness, no guarding and not rigid Skin Rashes: no rashes Wounds: no wounds Neuro General: oriented to person, oriented to place, tone normal, moves all extremities, no meningeal signs and no focal motor deficits Cranial nerves: Yes CN's II-XII intact bilaterally Extrem Other: 2+ bilateral LE pitting edema General: Yes normal to inspection Course Course Course Narrative: -162--acute on chronic pancytopenia > likely from cirrhosis -troponin 16.4 > will obtain repeat XR chest 1V IMPRESSION: Left upper lobe pneumonia. Follow-up is recommended to document resolution. > lactic/blood cultures and empiric Rocephin ordered -170--chronically elevated bilirubins/AST and alk phos -ammonia 128. Chronically elevated > will give dose of lactulose -173--repeat troponin without delta, mi unlikely -1800--ED care transferred to [facility] Luna pending lactic acid, CT head/C- spine/abdomen/pelvis, UA. Dispo per results Reevaluation(s) Reevaluation #1: Maynor Christensen PA-C have have accepted care of the patient and signed out pending imaging, urinalysis, orthostatic vitals and final disposition. He only received ceftriaxone not azithromycin adding that now CT brain: Findings: No intra-axial mass, midline shift, hydrocephalus, or acute hemorrhage. No significant atrophy-like change or white matter disease. There is no sinus or mastoid fluid. 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 No acute skull fracture. IMPRESSION: 1. No acute intracranial findings. CT cervical spine: Findings: Minimal anterolisthesis at C3-4, C6-7 and C7-T1 which appears stable. Vertebral body height is maintained. No acute fracture in the cervical spine. Craniocervical junction is intact. Significant degenerative disc disease at C6-7. Prevertebral soft tissues within normal limits. Thyroid appears unremarkable. Lung apices are clear. IMPRESSION: 1. No acute fracture. 2. Stable minimal anterolisthesis C3-4, C6-7 and C7-T1. 3. Degenerative disc disease C6-7. CT abdomen and pelvis: MPRESSION: 1. Overall stable findings consistent with previous tips procedure, cirrhosis, significant splenomegaly and partial thrombosis of main portal vein. 2. Moderate colonic stool with prominent rectosigmoid stool and rectal distention may represent fecal impaction. 3. Additional nonacute findings as described. Labs: Urine not infected Orthostatic vitals are appropriate Reevaluation #2: Pt does not meet medical necessity for inpatient admission, we received a call from the residential where he resides, the director is asking that the patient be placed in long-term medical respite, over the past several months he it has been in and out of the hospital every 1-2 weeks, it is no longer appropriate for him to be in the residential. I spoke with the Sreekanth Mj from the residential at [place] [id number], he is the director Time: 20:31 Date: 01/21/25 Provider: JOY Mckeon Patient in physician observation for case management needs. No acute events reported overnight.? No current issues or complaints. VS stable. Patient is pending placement at facility/pending PT/CM eval. Will continue to monitor. Time: 20:30 Reevaluation #3: Time: 14:05 Date: 01/22/25 Provider: JOY Palacios Physician observation ended at 14:05. Patient has been cleared for discharge, seen by PT and did very well, no PT needed. He will be [facility] with [facility] for management of chronic disease. will continue abx for PNA. VSS. does not require medical admission and can be discharged back to residential. niece to transport patient there now. stable for d/c Medications Administered Discontinued Medications Generic Name Dose Route Start Last Admin Trade Name Samuel PRN Reason Stop Dose Admin Ceftriaxone Sodium 1 gm 01/21/25 16:30 01/21/25 17:08 Ceftriaxone Sodium 1 Gm Vial IVPUSH 01/21/25 16:31 1 gm ONCE ONE Administration Azithromycin 500 mg/ Sodium 250 mls @ 125 mls/hr 01/21/25 20:34 01/21/25 23:20 Chloride IV 01/21/25 22:33 Infused ONCE ONE Infusion Iohexol 100 ml 01/21/25 18:01 01/21/25 18:02 Iohexol 350 Mg/Ml 100 Ml Infus..Btl IV 01/21/25 18:02 85 ml ONCE ONE Administration Lactulose 30 gm 01/21/25 17:04 01/21/25 17:16 Lactulose 20 Gm/30 Ml Solution PO 01/21/25 17:05 30 gm ONCE ONE Administration Medical Decision Making Medical Decision Making MDM Narrative: 64-year-old male with a past medical history of cirrhosis s/p TIPs, chronic hep C, portal hypertension, esophageal varices, splenic and PVT thrombosis but not on AC therapy due to varices/thrombocytopenia, presenting to the ED via EMS complaining of generalized fatigue/weakness, lightheadedness, feeling unwell, nausea, headache, orthopnea, abdominal pain, and emesis x1 this morning. Also reports mechanical fall backwards yesterday without head strike or LOC secondary to feeling lightheaded/dizzy. On exam vital signs stable, NAD, A&O x2, poor historian, no evidence of trauma, bibasilar crackles noted. Abdomen is soft with diffuse tenderness, no rebound or guarding or appreciable ascites. Bilateral LE pitting edema noted. Concern for viral illness vs metabolic abnormalities vs infectious etiologies vs atypical ACS vs CHF/pneumonia vs intra-abdominal pathology. Rule out ICH/fracture. Lower suspicion for SBP Low suspicion for severe sepsis [1606] Plan: EKG, labs, UA, CXR, head/C-spine CT, CT AP, SARs, re-evaluate Please refer to course for remaining clinical decision making, interpretation of labs/imaging results, and discussions with consultants and/or family members. Differential Diagnosis Differential Diagnoses: The differential diagnosis associated with the presentation includes As above Admission/Observation Consideration of admission/observation: Escalation of care including admission/observation considered Lab Data MDM Lab Attestation statement: I reviewed the patient's lab results. 01/21/25 15:44 01/21/25 15:44 Labs: Lab Results 01/21/25 01/21/25 01/21/25 Range/Units 15:44 15:45 17:00 WBC 1.8 L (4.8-10.8) X10*3/uL RBC 3.45 L (4.60-5.80) X10*6/uL Hgb 10.3 L (14.0-18.0) g/dl Hct 30.2 L (42.0-52.0) % MCV 87.5 (80.0-98.0) fL MCH 29.9 (27.0-33.0) pg MCHC 34.1 (31.0-36.0) g/dl RDW 14.7 (11.0-16.0) % Plt Count 20 L* (160-400) X10*3/uL MPV Not Reportable Immature Gran % (Auto) 0.5 H (0.0-0.4) % Neut % (Auto) 63.7 (45-73) % Lymph % (Auto) 27.7 (20-40) % Hend[place] % (Auto) 7.6 (2-11) % Eos % (Auto) 0.5 (0-4) % Baso % (Auto) 0.0 (0-2) % Lymph # (Auto) 0.5 L (1.2-4.9) X10*3/uL Hendry # (Auto) 0.1 (0.1-1.2) X10*3/uL Eos # (Auto) 0.0 (0.0-0.4) X10*3/uL Baso # (Auto) 0.0 (0.0-0.2) X10*3/uL Abs Immat Gran (auto) 0.01 (0.00-0.03) X10*3/uL Absolute Neuts (auto) 1.2 L (2.0-8.3) x10*3/uL Absolute Nucleated RBC 0.000 (0.0-0.012) X10*3/uL Nucleated RBC % (auto) 0.0 (0.0-0.2) /100WBC Smear Tech's Comments VERIFIED PT 16.7 H (10.9-12.4) SEC INR 1.5 H (0.9-1.1) Sodium 142 (135-145) mmol/L Potassium 4.2 (3.3-5.1) mmol/L Chloride 112 H (96-108) mmol/L Carbon Dioxide 26 (22-29) mmol/L Anion Gap 8 L (12-20) BUN 10 (9-16) mg/dL Creatinine 0.78 (0.5-1.4) mg/dL Estim Creat Clear Calc 103.7 Estimated GFR > 60 Random Glucose 108 (60-115) mg/dL Lactic Acid 1.3 (0.5-2.0) mmol/L Calcium 8.4 D (8.4-10.2) mg/dL Magnesium 1.9 (1.6-2.6) mg/dL Total Bilirubin 1.8 H (0.0-1.0) mg/dL Direct Bilirubin 0.7 H (0.0-0.5) mg/dL AST 47 H (5-37) U/L ALT 28 (0-40) U/L Alkaline Phosphatase 130 H (39-117) U/L Ammonia 128 H (13-55) umol/L Troponin I High Sens 16.4 D 18.3 (<3.5-35.0) ng/L B-Natriuretic Peptide 97 (<100) pg/mL Total Protein 6.0 L (6.5-8.0) g/dL Albumin 2.9 L (3.5-5.0) g/dL Lipase 22 (8-78) U/L Urine Color Urine Appearance Urine pH (5.0-9.0) Ur Specific [place] (1.005-1.025) Urine Protein (Neg-Trace) mg/dL Urine Glucose (UA) (Negative) mg/dL Urine Ketones (Negative) mg/dL Urine Blood (Negative) Urine Nitrite (Negative) Ur Leukocyte Esterase (Negative) Urine Opiates Screen (Not Detect) Ur Buprenorphine Scrn (Not Detect) ng/mL Ur Oxycodone Screen (Not Detect) ng/mL Urine Methadone Screen (Not Detect) ng/mL Urine Fentanyl Screen (Not Detect) Ur Barbiturates Screen (Not Detect) Ur Phencyclidine Scrn (Not Detect) Ur Amphetamines Screen (Not Detect) U Benzodiazepines Scrn (Not Detect) Urine Cocaine Screen (Not Detect) U Marijuana (THC) Screen (Not Detect) Ethyl Alcohol < 10 mg/dL Influenza Type A (PCR) NEGATIVE (Negative) Influenza Type B (PCR) NEGATIVE (Negative) RSV RNA Qual (PCR) NEGATIVE (Negative) SARS-CoV-2 RNA (RT-PCR) NEGATIVE (Negative) 01/21/25 Range/Units 19:12 WBC (4.8-10.8) X10*3/uL RBC (4.60-5.80) X10*6/uL Hgb (14.0-18.0) g/dl Hct (42.0-52.0) % MCV (80.0-98.0) fL MCH (27.0-33.0) pg MCHC (31.0-36.0) g/dl RDW (11.0-16.0) % Plt Count (160-400) X10*3/uL MPV Immature Gran % (Auto) (0.0-0.4) % Neut % (Auto) (45-73) % Lymph % (Auto) (20-40) % Hendry % (Auto) (2-11) % Eos % (Auto) (0-4) % Baso % (Auto) (0-2) % Lymph # (Auto) (1.2-4.9) X10*3/uL Hendry # (Auto) (0.1-1.2) X10*3/uL Eos # (Auto) (0.0-0.4) X10*3/uL Baso # (Auto) (0.0-0.2) X10*3/uL Abs Immat Gran (auto) (0.00-0.03) X10*3/uL Absolute Neuts (auto) (2.0-8.3) x10*3/uL Absolute Nucleated RBC (0.0-0.012) X10*3/uL Nucleated RBC % (auto) (0.0-0.2) /100WBC Smear Tech's Comments PT (10.9-12.4) SEC INR (0.9-1.1) Sodium (135-145) mmol/L Potassium (3.3-5.1) mmol/L Chloride (96-108) mmol/L Carbon Dioxide (22-29) mmol/L Anion Gap (12-20) BUN (9-16) mg/dL Creatinine (0.5-1.4) mg/dL Estim Creat Clear Calc Estimated GFR Random Glucose (60-115) mg/dL Lactic Acid (0.5-2.0) mmol/L Calcium (8.4-10.2) mg/dL Magnesium (1.6-2.6) mg/dL Total Bilirubin (0.0-1.0) mg/dL Direct Bilirubin (0.0-0.5) mg/dL AST (5-37) U/L ALT (0-40) U/L Alkaline Phosphatase (39-117) U/L Ammonia (13-55) umol/L Troponin I High Sens (<3.5-35.0) ng/L B-Natriuretic Peptide (<100) pg/mL Total Protein (6.5-8.0) g/dL Albumin (3.5-5.0) g/dL Lipase (8-78) U/L Urine Color Yellow Urine Appearance Clear Urine pH 6.5 (5.0-9.0) Ur Specific [place] >= 1.030 H (1.005-1.025) Urine Protein Negative (Neg-Trace) mg/dL Urine Glucose (UA) Negative (Negative) mg/dL Urine Ketones Negative (Negative) mg/dL Urine Blood Negative (Negative) Urine Nitrite Negative (Negative) Ur Leukocyte Esterase Negative (Negative) Urine Opiates Screen Not Detected (Not Detect) Ur Buprenorphine Scrn Not Detected (Not Detect) ng/mL Ur Oxycodone Screen Not Detected (Not Detect) ng/mL Urine Methadone Screen Not Detected (Not Detect) ng/mL Urine Fentanyl Screen Not Detected (Not Detect) Ur Barbiturates Screen Not Detected (Not Detect) Ur Phencyclidine Scrn Not Detected (Not Detect) Ur Amphetamines Screen Not Detected (Not Detect) U Benzodiazepines Scrn Not Detected (Not Detect) Urine Cocaine Screen Not Detected (Not Detect) U Marijuana (THC) Screen Not Detected (Not Detect) Ethyl Alcohol mg/dL Influenza Type A (PCR) (Negative) Influenza Type B (PCR) (Negative) RSV RNA Qual (PCR) (Negative) SARS-CoV-2 RNA (RT-PCR) (Negative) Independent Interpretation I performed an independent interpretation of an: EKG (My interpretation EKG sinus rhythm with short FL with PVCs. Rate of 76. FL interval has decreased when compared to prior. No STEMI.), Plain X-Ray and CT Scan Radiology Impression Discussion of test interpretation with radiology: I have reviewed the radiologist's reading. Independent Historian Clinical information obtained from an independent historian. History obtained from or confirmed by: EMS External Record Review External record reviewed: Inpatient record, Office record, Outpatient record, Prior outpatient labs, Prior outpatient radiology, Primary care record and Outside ED record Tests considered The following testing was considered but not selected: As above Prescription Management I considered prescription management with: Pain Medication, Antibiotic and Other Chronic Conditions Patient?s care impacted by: Other (Cirrhosis, Hep C) Social Determinants Patient?s care significantly limited by Social Determinants of Health including: Inadequate housing, Low income, Alcoholism and drug addiction in family, Problems related to primary support group and Other Social Determinant of Health Critical Care Time Critical Care Time Critical Care Time: Yes Total Critical Care Time: 40 Attestation: I have personally provided critical care time exclusive of time spent on separately billable procedures. Time includes review of lab data, radiology results, discussion with consultants, and monitoring for potential decompensation. Intervention performed as documented. Discharge Plan Discharge Clinical Impression: Pneumonia, Weakness, Lightheadedness, Abdominal pain Patient Disposition: Xfer Other Transfer Details: [facility] Instructions: Weakness (ED), Pneumonia (ED) Additional Instructions: You were found to have left upper lobe pneumonia. You are being treated with antibiotics. Take the prescribed antibiotics as directed, complete the entire course and do not miss any doses. [facility] the [facility]. Your platelets are chronically low. Recommend following up with Hematology and Oncology for further evaluation and treatment. Refrain from any alcohol consumption Follow-up with your primary care doctor as soon as possible Prescriptions: New amoxicillin-pot clavulanate 875-125 mg tablet 1 tab PO BID Qty: 14 0RF azithromycin 250 mg tablet 250 mg PO DAILY 4 Days Qty: 4 0RF Rx Instructions: start on day 2 of therapy No Action carvedilol 3.125 mg tablet 3.125 mg PO BID Qty: 60 3RF furosemide 40 mg tablet 40 mg PO DAILY clotrimazole 1 % cream 1 appl topical BID ascorbic acid (vitamin C) 250 mg tablet 250 mg PO DAILY ferrous sulfate 325 mg (65 mg iron) tablet 325 mg PO DAILY amlodipine 5 mg Tablet 5 mg PO DAILY lactulose 10 gram/15 mL Solution 30 g PO TID Qty: 1500 0RF Referrals: [facility] [Other] [facility] [place] [facility] [place]ology [place] Group] (Pancytopenia with severe thrombocytopenia) Leta Soto MD [Primary Care Provider] - Interventions: ED Discharge Assessment Last Done: 01/22/25 14:57 Discharge Date/Time: 01/22/25 14:57 Print Language: Latvian
--- NOTE | 2025-01-21 15:19 | ECG_ITS ---
Test Reason : WEAKNESS Blood Pressure : */* mmHG Vent. Rate : 76 BPM Atrial Rate : 76 BPM P-R Int : 110 ms QRS Dur : 74 ms QT Int : 396 ms P-R-T Axes : 14 15 57 degrees QTcB Int : 445 ms Sinus rhythm with short MD with Premature supraventricular complexes Otherwise normal ECG When compared with ECG of 03-Jan-2025 20:42, Premature supraventricular complexes are now Present MD interval has decreased Referred By: Griselda Conley Electronically Signed By: POP DAVIES MD
[2025-01-21 16:13] LABS: Ammonia 128 umol/L (13-55)
[2025-01-21 16:16] LABS: Eosinophils Percent Auto 0.5 % (0-4); Hematocrit 30.2 % (42.0-52.0); Hemoglobin 10.3 g/dl (14.0-18.0); Imm Gran Abs Auto 0.01 X10*3/uL (0.00-0.03); Imm Gran Pct Auto 0.5 % (0.0-0.4); Lymphocytes Absolute Auto 0.5 X10*3/uL (1.2-4.9); Lymphocytes Percent Auto 27.7 % (20-40); MANUAL DIFF FLAG SCAN; Mean Corpuscular HGB Conc 34.1 g/dl (31.0-36.0); Mean Corpuscular Hemoglobin 29.9 pg (27.0-33.0); Mean Corpuscular Volume 87.5 fL (80.0-98.0); Monocytes Absolute Auto 0.1 X10*3/uL (0.1-1.2); Monocytes Percent Auto 7.6 % (2-11); Neutrophils Absolute Auto 1.2 x10*3/uL (2.0-8.3); Neutrophils Percent Auto 63.7 % (45-73); Red Blood Count 3.45 X10*6/uL (4.60-5.80); Red Cell Distribution Width 14.7 % (11.0-16.0); SCAN SMEAR FLAG 1
[2025-01-21 16:17] LABS: Ethanol < 10 mg/dL
[2025-01-21 16:18] LABS: White Blood Count 1.8 X10*3/uL (4.8-10.8)
[2025-01-21 16:20] LABS: INTERNATIONAL NORM RATIO 1.5 (0.9-1.1); Prothrombin Time 16.7 SEC (10.9-12.4)
[2025-01-21 16:21] LABS: Platelet Count 20 X10*3/uL (160-400)
[2025-01-21 16:27] LABS: Troponin-I High Sensitivity 16.4 ng/L (<3.5-35.0)
[2025-01-21 16:34] LABS: Alanine Aminotransferase 28 U/L (0-40); Albumin Level 2.9 g/dL (3.5-5.0); Alkaline Phosphatase 130 U/L (39-117); Anion Gap 8 (12-20); Aspartate Amino Transferase 47 U/L (5-37); Bilirubin Direct 0.7 mg/dL (0.0-0.5); Bilirubin Total 1.8 mg/dL (0.0-1.0); Blood Urea Nitrogen 10 mg/dL (9-16); Calcium 8.4 mg/dL (8.4-10.2); Carbon Dioxide 26 mmol/L (22-29); Chloride 112 mmol/L (96-108); Creatinine Clr Calc Pharmacy 103.7; Estimated Glomerular Filt Rate > 60; Glucose Random 108 mg/dL (60-115); Lipase 22 U/L (8-78); Magnesium 1.9 mg/dL (1.6-2.6); Potassium 4.2 mmol/L (3.3-5.1); Sodium 142 mmol/L (135-145)
[2025-01-21 16:41] LABS: Influenza A PCR NEGATIVE (Negative); Influenza B PCR NEGATIVE (Negative); Resp Syncy Virus RNA Qual PCR NEGATIVE (Negative); SARS COV2 PCR INHOUSE NEGATIVE (Negative)
[2025-01-21 16:53] LABS: SLIDE REVIEW VERIFIED
[2025-01-21 17:06] LABS: B Type Natriuretic Peptide 97 pg/mL (<100)
--- NOTE | 2025-01-21 17:06 | PC.NURSE ---
Pt difficult stick. Unable to obtain IV access. RN Donnie at bedside- 20g ultrasound guided IV placed. Abx given after IV placement and blood cultures done.
[2025-01-21] MEDS: cefTRIAXone sodium 1 GM VIAL IVPUSH (17:08)
[2025-01-21] MEDS: Lactulose 20 GM/30 ML SOLUTION 30 GM PO (17:16)
[2025-01-21 17:19] VITALS: BP 135/52; BP 152/62; PULSE 76; PULSE 79; RESP 16; TEMP 36.4; O2SAT 96
[2025-01-21 17:20] VITALS: BP 171/75; PULSE 84
[2025-01-21 17:24] LABS: Lactic Acid 1.3 mmol/L (0.5-2.0)
[2025-01-21 17:30] LABS: Troponin-I High Sensitivity 18.3 ng/L (<3.5-35.0)
[2025-01-21] MEDS: iohexoL 350 MG/ML 100 ML INFUS..BTL IV (18:02)
[2025-01-21 19:22] LABS: Appearance Urine Clear; Color Urine Yellow; Glucose Urine UA Negative (Negative); Leukocyte Esterase Urine Negative (Negative); Nitrite Urine Negative (Negative); PH 6.5 (5.0-9.0); Specific Gravity - Urine >= 1.030 (1.005-1.025); Urine Blood Negative (Negative); Urine Ketones Negative (Negative); Urine Protein Negative (Neg-Trace)
[2025-01-21 19:28] LABS: Amphetamine Screen Urine Not Detected (Not Detect); Barbiturates, Urine Not Detected (Not Detect); Benzodiazepines Screen Urine Not Detected (Not Detect); Buprenorphine Scr Not Detected (Not Detect); Cannabinoid Screen Urine Not Detected (Not Detect); Cocaine Screen Urine Not Detected (Not Detect); Fentanyl, urine Not Detected (Not Detect); Methadone Screen, Urine Not Detected (Not Detect); Opiate Screen Urine Not Detected (Not Detect); Oxycodone Screen Urine Not Detected (Not Detect); Phencyclidine Screen Urine Not Detected (Not Detect)
[2025-01-21 20:02] VITALS: BP 147/62; PULSE 71; RESP 16; TEMP 36.7; O2SAT 100
[2025-01-21] MEDS: Azithromycin 500 MG in 0.9 % Sodium Chloride 250 ML 125 MG IV (21:15)
--- NOTE | 2025-01-21 21:27 | PC.NURSE ---
Pt resting on stretcher, call gorman in reach, sandwich provided per patient request. PT/CM.
[2025-01-22 05:15] VITALS: BP 123/45; PULSE 73; RESP 16; TEMP 36.9; O2SAT 97
[2025-01-22 08:49] VITALS: BP 139/45; PULSE 78; RESP 18; TEMP 36.6; O2SAT 100
--- NOTE | 2025-01-22 13:21 | MHC.CM.ED ---
Received case management consult overnight due to dizziness and weakness. Patient resides at [facility] on [facility] in [place]. construction director spoke to ER provider about concerns regarding patient requiring frequent hospitalization. Work up essentially negative. Physical therapy eval completed. No skill indicated. Met with patient and spanish interpreter/translator in regards to discharge planning. Above information explained to patient. Options of returning to [facility] vs looking for care home care at a SNF provided. Patient feels he can safely return to his [facility] apartment. Patient's niece will transport patient home. Maryellen SCHOFIELD and Haylie HAMILTON aware. Continue to monitor for d/c needs.
--- NOTE | 2025-01-22 14:55 | MHC.CM.ED ---
Addendum entered by Erika Rosas 01/22/25 15:40: [facility] is able to accept patient. Patient agreeable. Original Note: Received telephone call from Alayna from [facility]. Alayna can be reached via telephone at [phone]. Alayna is concerned patient is unable to safely return to their long-term because they feel he has too many medical needs. T/W explained medical work up did not indicate a medical admission. Also explained physical therapy eval was completed and found no skill to be indicated. Alayna states patient was sent to the ER 9 time since January due to passing out. T/W attempted to gather more information about their concerns. Telephone was passed to [facility] manger Nimo. Nimo stated they were concerned about patient passing out because he has his own apartment and could pass out and not be able to reach for help. T/W stated any of their residents could pass out and not be able to reach for help. Nimo is requesting Medical [facility] referral. If bed is not offered at medical respite, patient can return to long-term with VNA. Spoke with Andrea STENOGRAPHER SECRETARY Medical [facility] Looper Fixer. Patient's PMH, current living situation, current ADL level and medical needs explained. Andrea stated they did not have a bed available and if they did, he would not be complex enough to accept. Alayna made aware. Patient made aware via [employer]. VNA for retirement will be broadcasted at this time. Continue to monitor for d/c needs.
[2025-01-22 14:57] VITALS: BP 139/45; PULSE 78; RESP 18; TEMP 36.6; O2SAT 100
== END 2025-01-22 14:57 | disposition other institution (70) ==
PROVIDERS: Physician Assistant; Emergency Provider Emergency Medicine; PCP Student in an Organized Health Care Education/Training Program
DX: J18.9 Pneumonia, unspecified organism (principal); R42 Dizziness and giddiness; R51.9 Headache, unspecified; R10.2 Pelvic and perineal pain; R11.0 Nausea; R53.1 Weakness; M54.2 Cervicalgia; R94.31 Abnormal electrocardiogram [ECG] [EKG]; R06.02 Shortness of breath; I10 Essential (primary) hypertension; Z79.899 Other long term (current) drug therapy; Z03.818 Encounter for observation for suspected exposure to other biological agents ruled out; Z51.81 Encounter for therapeutic drug level monitoring
CPT/HCPCS: 0241U; 36415; 70450; 71045; 72125; 74177; 80048; 80076; 80307; 81003; 82140; 83605; 83690; 83735; 83880; 84484; 85025; 85610; 87040; 93005; 96365; 96366; 96375; 97161; 99285; J0456; J0696; Q9967

== ENCOUNTER → 2025-01-21 15:19 | Outpatient (BNV) | payer MEDICAID, SELFPAY | PROVIDERS: Emergency Provider Emergency Medicine; PCP Student in an Organized Health Care Education/Training Program; Visit Provider Internal Medicine Cardiovascular Disease | DX: I49.1 Atrial premature depolarization (principal) | CPT/HCPCS: 93010 ==

== ENCOUNTER → 2025-01-21 15:19 | Outpatient (BNV) | payer MEDICAID, SELFPAY | PROVIDERS: PCP Student in an Organized Health Care Education/Training Program; Visit Provider Radiology Diagnostic Radiology | DX: K56.41 Fecal impaction (principal); M50.323 Other cervical disc degeneration at C6-C7 level; R42 Dizziness and giddiness; W19.XXXA Unspecified fall, initial encounter; J18.1 Lobar pneumonia, unspecified organism | CPT/HCPCS: 70450; 71045; 72125; 74177 ==

== ENCOUNTER 2025-02-08 11:43 | Emergency (ER) | payer MEDICAID, SELFPAY ==
--- NOTE | 2025-02-08 11:42 | ED_ITS ---
HPI - Dizziness General Chief Complaint: General Medical Stated Complaint: DIZZY,PALPITATIONS,OFF MEDS X1W/UNABLE GET,210/90 Source: patient Mode of arrival: EMS Limitations: no limitations History of Present Illness ED Provider: Berlin Cartagena DO HPI Narrative: 64-year-old male with past medical history of psoriasis status post tips procedure, chronic hepatitis-C, portal hypertension, esophageal varices, splenic and portal venous thrombosis not on anticoagulation due to varices and thrombocytopenia, iron-deficiency anemia who presents to the ED via EMS from home due to lightheaded dizziness upon standing and walking that resolves at rest. The patient also reports a headache and associates his symptoms with his routine home medications which he has been taking. He states he has been taking his lactulose and had a bowel movement this morning and yesterday morning. He ate and drank yesterday but did not have anything by mouth today. He has had no fevers, abdominal pain, nausea, vomiting, persistent headache, difficulty breathing, or lower extremity pain or swelling. He has had no falls or trauma. History obtained with the assistance of in-person fire fighter airport, [place]. Related Data Home Medications ?Medication ?Instructions ?Recorded ?Confirmed amlodipine 5 mg tablet 5 mg PO DAILY 12/03/24 12/20/24 ascorbic acid (vitamin C) 250 mg 250 mg PO DAILY 12/03/24 12/20/24 tablet clotrimazole 1 % topical cream 1 appl topical BID 12/03/24 12/20/24 ferrous sulfate 325 mg (65 mg 325 mg PO DAILY 12/03/24 12/20/24 iron) tablet furosemide 40 mg tablet 40 mg PO DAILY 12/03/24 12/20/24 Previous Rx's ?Medication ?Instructions ?Recorded carvedilol 3.125 mg tablet 3.125 mg PO BID #60 tabs 11/24/24 lactulose 10 gram/15 mL oral 30 g (45 mL) PO TID #1,500 mL 12/05/24 solution amoxicillin 875 mg-potassium 1 tab PO BID #14 tabs 01/22/25 clavulanate 125 mg tablet azithromycin 250 mg tablet 250 mg PO DAILY 4 days #4 tabs 01/22/25 walker #1 ea 02/08/25 Allergies Allergy/AdvReac Type Severity Reaction Status Date / Time dicyclomine [From Bentyl] Allergy Unknown Verified 02/08/25 11:54 aspirin AdvReac Severe stomach Verified 02/08/25 11:54 bleeding NSAIDS (Non-Steroidal AdvReac Severe liver Verified 02/08/25 11:54 Anti-Inflamma concerns Review of Systems 2 Review of Systems: Yes all other systems are reviewed and are negative [facility] Past Medical History Medical History Cirrhosis of liver Hepatic encephalopathy Portal vein thrombosis Cirrhosis Splenic vein thrombosis Sepsis Cirrhosis of liver with ascites Abdominal pain Thrombocytopenia Pancytopenia Cirrhosis Hepatitis C virus infection Esophageal varices Pancytopenia Iron deficiency anemia Cirrhosis Hepatitis C HBP (high blood pressure) Surgical History S/P TIPS (transjugular intrahepatic portosystemic shunt) H/O left inguinal hernia repair H/O eye surgery History of esophagogastroduodenoscopy (EGD) H/O colonoscopy Family History Family History Maternal Grandmother Breast CA Uterus cancer Mother Primary lung cancer of unknown cell type Social History Social History Household Members: Other Household Members Other:: [facility] Housing: Other Housing Other:: Penitentiary Are you a primary child day care provider to a significant other at home: No Do you presently have visiting nurse or other home services: No Alcohol intake: former Comment: pt refusing alarm's Patient Tobacco Use Status: Never used Tobacco Tobacco use type: Cigarette Cigarette Packs Per Day: 1 Cigarettes Per Day: 5 Years Smoked: 30 Smoked in Last 30 Days: Yes Second Hand Smoke Exposure: No Use of substances other than those prescribed or required for medical reasons: No Substance Use Type: Crack/Cocaine and Marijuana Advance Directives: Yes Advance Directives on File: Yes Advance Directives Date on File: 04/02/24 service: No Current occupational status: retired Physical Exam 2 Vital Signs: Vital Signs: Last Vital Signs Temp 98.6 F 02/08/25 11:51 Pulse 75 02/08/25 11:51 Resp 16 02/08/25 11:51 Pulse Ox 100 02/08/25 11:51 O2 Del Method Room Air 02/08/25 11:51 BMI result Body Mass Index 31.0 Constitutional: ?Alert, oriented, speaking in full sentences HEENT: ?Normocephalic, atraumatic. ?Moist mucous membranes Eyes: ?Absent right eye (chronic), EOMI, circular, 3 mm pupil, reactive to light Neck: ?Supple, nontender Chest: ?No chest wall tenderness Respiratory: ?Lungs clear to auscultation, no increased work of breathing Cardio: ?Regular rate and rhythm, no murmur, 2+ radial and DP pulses symmetrically GI: ?Soft, nondistended, nontender Back: ?Normal range of motion, nontender Skin: ?No rash, no lesions Neuro: ?Mental Status: Patient is alert, attentive, and fully oriented Speech: Clear and fluent CN II: Visual chino are full CN III, IV, : Extra ocular motions are intact in all directions. No ptosis. CN V: Facial sensation intact, both upper and lower face CN VII: Symmetric facial movements CN VIII: Hearing is grossly normal CN IX, X: Symmetric elevation of palate, normal phonation CN XI: Shoulder shrug 5/5 strength bilaterally CN XII: Tongue protrudes midline Motor: No pronator drift. 5/5 strength all 4 extremities. Normal muscle bulk and tone. Sensory: Sensation intact all 4 extremities to light touch without reported paresthesias. Coordination: No truncal ataxia noted. Patient able to stand and ambulate without assistance but does report now feeling dizzy. He has no ataxia or antalgia. He does walk slowly and reaches his arm out. Extremities: ?No swelling or tenderness, full range of motion Psych: ?Calm, alert and cooperative, appropriate behavior Medical Decision Making Medical Decision Making MDM Narrative: The patient is well-appearing, vitally stable, pleasant and presenting with lightheaded dizziness described as worse with standing. This is likely orthostatic in nature and the patient has had no p.o. intake. We will give him food and water today. Given his chronic medical conditions we will also evaluate for worsening anemia or metabolic abnormalities. We will perform a screening electrocardiogram. The patient appears comfortable. His neurologic exam is benign and I do not suspect stroke or intracranial hemorrhage. He has no ataxia concerning for posterior stroke. He does not appear clinically dehydrated. He has no signs of infection and I do not suspect infectious process involved in his symptoms today. He does state he is unsteady on his feet with dizziness on a chronic intermittent basis and does not use an assistive device for ambulation at home but would benefit from having onw as needed. He has a visiting nurse come twice a week and I spoke to her on the phone and she states he had an unremarkable appearance yesterday. Labs reviewed and show baseline abnormalities with baseline hepatic dysfunction, no renal insufficiency, no significant electrolyte abnormalities, baseline anemia and thrombocytopenia, baseline leukopenia. Patient tolerated p.o. and on repeat ambulation trial he walks without assistance and moves faster this time without any difficulty or dizziness. He reports significant improvement. He is stable for discharge to home with return precautions provided. Etiology of his symptoms likely related to not eating today. Admission/Observation Consideration of admission/observation: Escalation of care including admission/observation considered Lab Data 02/08/25 12:28 02/08/25 12:28 Labs: Lab Results 02/08/25 Range/Units 12:28 WBC 1.8 L (4.8-10.8) X10*3/uL RBC 3.65 L (4.60-5.80) X10*6/uL Hgb 10.6 L (14.0-18.0) g/dl Hct 31.1 L (42.0-52.0) % MCV 85.2 (80.0-98.0) fL MCH 29.0 (27.0-33.0) pg MCHC 34.1 (31.0-36.0) g/dl RDW 13.9 (11.0-16.0) % Plt Count 22 L (160-400) X10*3/uL MPV Not Reportable Immature Gran % (Auto) 0.6 H (0.0-0.4) % Neut % (Auto) 55.1 (45-73) % Lymph % (Auto) 33.5 (20-40) % Catron % (Auto) 9.1 (2-11) % Eos % (Auto) 1.1 (0-4) % Baso % (Auto) 0.6 (0-2) % Lymph # (Auto) 0.6 L (1.2-4.9) X10*3/uL Catron # (Auto) 0.2 (0.1-1.2) X10*3/uL Eos # (Auto) 0.0 (0.0-0.4) X10*3/uL Baso # (Auto) 0.0 (0.0-0.2) X10*3/uL Abs Immat Gran (auto) 0.01 (0.00-0.03) X10*3/uL Absolute Neuts (auto) 1.0 L (2.0-8.3) x10*3/uL Absolute Nucleated RBC 0.000 (0.0-0.012) X10*3/uL Nucleated RBC % (auto) 0.0 (0.0-0.2) /100WBC Smear Tech's Comments VERIFIED Sodium 143 (135-145) mmol/L Potassium 4.3 (3.3-5.1) mmol/L Chloride 115 H (96-108) mmol/L Carbon Dioxide 22 (22-29) mmol/L Anion Gap 10 L (12-20) BUN 14 (9-16) mg/dL Creatinine 0.78 (0.5-1.4) mg/dL Estim Creat Clear Calc 113.8 Estimated GFR > 60 Random Glucose 81 (60-115) mg/dL Calcium 8.7 (8.4-10.2) mg/dL Magnesium 1.9 (1.6-2.6) mg/dL Total Bilirubin 2.2 H (0.0-1.0) mg/dL AST 51 H (5-37) U/L ALT 29 (0-40) U/L Alkaline Phosphatase 135 H (39-117) U/L Total Protein 6.7 (6.5-8.0) g/dL Albumin 3.1 L (3.5-5.0) g/dL Independent Interpretation I performed an independent interpretation of an: EKG (Normal sinus rhythm at 76 beats per minute, normal axis, unremarkable intervals, no diagnostic ST or T- wave abnormalities, compared to prior dated 01/21/2025 there are no significant changes.) Discharge Plan Discharge Clinical Impression: Dizziness Patient Disposition: Home, Self-Care Instructions: Lightheadedness (ED), Dizziness (ED) Additional Instructions: Se le wray recetado un andador. ?selo o un sally?n seg?n sea necesario para prevenir ca?slaughter si se siente inestable. Por favor regrese si tiene alg?n s?ntoma o inquietud nueva. Prescriptions: New (DME) doris Sam See Rx Instructions .Route Qty: 1 0RF Rx Instructions: As directed No Action carvedilol 3.125 mg tablet 3.125 mg PO BID Qty: 60 3RF furosemide 40 mg tablet 40 mg PO DAILY clotrimazole 1 % cream 1 appl topical BID ascorbic acid (vitamin C) 250 mg tablet 250 mg PO DAILY ferrous sulfate 325 mg (65 mg iron) tablet 325 mg PO DAILY amlodipine 5 mg Tablet 5 mg PO DAILY lactulose 10 gram/15 mL Solution 30 g PO TID Qty: 1500 0RF amoxicillin-pot clavulanate 875-125 mg tablet 1 tab PO BID Qty: 14 0RF azithromycin 250 mg tablet 250 mg PO DAILY 4 Days Qty: 4 0RF Rx Instructions: start on day 2 of therapy Print Language: Amharic
[2025-02-08 11:51] VITALS: BP 200/98; PULSE 75; PULSE 84; RESP 16; TEMP 37; O2SAT 100; BMI 31.0
--- NOTE | 2025-02-08 12:22 | ECG_ITS ---
Test Reason : DIZZINESS Blood Pressure : */* mmHG Vent. Rate : 76 BPM Atrial Rate : 76 BPM P-R Int : 138 ms QRS Dur : 82 ms QT Int : 416 ms P-R-T Axes : 57 22 70 degrees QTcB Int : 468 ms Normal sinus rhythm Normal ECG When compared with ECG of 21-Jan-2025 15:24, Premature supraventricular complexes are no longer Present Referred By: Berlin Cartagena Electronically Signed By: ЕКАТЕРИНА ZARAGOZA
--- OUTSIDE RECORDS SUMMARY | 2025-02-08 12:28 | XMS_ITS | Encounter Summary ---
Author Organization [employer] Address [address] [place] [address] Care Team Providers Care Mechanical Manager Name Role Phone Leta Soto MD Primary Care Pro vider Yajaira Antonio Unavailable Encounter Details Date Type Department Care Team (Late st Contact Info) Description 11/11/2024 Telephone [facility] [address] [place] [address] Leta Soto MD [address] [place] [address] Social History Tobacco Use Types Packs/Day Years [...] with others, in a hotel, in a snf, living outside on the street, on a [...] 12:27 PM EST Tc from amrita stiles correctional counselor/case manager requesting the status on pt documented in this encounter Plan of Treatment Not on [...] documented as of this encounter Care Teams Mechanical Manager Relationship Specialty Start Date End Date Leta Soto MD [address] [place] [id number] PCP - General Internal Medicine 04/11/23 Yajaira Antonio [address] [place] [address] Gastroenterology 09/04/24 [facility] 01/28/25 documented as of this encounter
[2025-02-08 12:52] LABS: Alanine Aminotransferase 29 U/L (0-40); Albumin Level 3.1 g/dL (3.5-5.0); Alkaline Phosphatase 135 U/L (39-117); Anion Gap 10 (12-20); Aspartate Amino Transferase 51 U/L (5-37); Bilirubin Total 2.2 mg/dL (0.0-1.0); Blood Urea Nitrogen 14 mg/dL (9-16); Calcium 8.7 mg/dL (8.4-10.2); Carbon Dioxide 22 mmol/L (22-29); Chloride 115 mmol/L (96-108); Creatinine Clr Calc Pharmacy 113.8; Estimated Glomerular Filt Rate > 60; Glucose Random 81 mg/dL (60-115); Magnesium 1.9 mg/dL (1.6-2.6); Potassium 4.3 mmol/L (3.3-5.1); Sodium 143 mmol/L (135-145); Total Protein 6.7 g/dL (6.5-8.0)
[2025-02-08 12:55] LABS: Basophils Percent Auto 0.6 % (0-2); Eosinophils Percent Auto 1.1 % (0-4); Hematocrit 31.1 % (42.0-52.0); Hemoglobin 10.6 g/dl (14.0-18.0); Imm Gran Abs Auto 0.01 X10*3/uL (0.00-0.03); Imm Gran Pct Auto 0.6 % (0.0-0.4); Lymphocytes Absolute Auto 0.6 X10*3/uL (1.2-4.9); Lymphocytes Percent Auto 33.5 % (20-40); MANUAL DIFF FLAG SCAN; Mean Corpuscular HGB Conc 34.1 g/dl (31.0-36.0); Mean Corpuscular Volume 85.2 fL (80.0-98.0); Monocytes Absolute Auto 0.2 X10*3/uL (0.1-1.2); Monocytes Percent Auto 9.1 % (2-11); Neutrophils Percent Auto 55.1 % (45-73); Red Blood Count 3.65 X10*6/uL (4.60-5.80); Red Cell Distribution Width 13.9 % (11.0-16.0); SCAN SMEAR FLAG 1
[2025-02-08 12:57] LABS: Platelet Count 22 X10*3/uL (160-400); White Blood Count 1.8 X10*3/uL (4.8-10.8)
[2025-02-08 12:59] LABS: SLIDE REVIEW VERIFIED
[2025-02-08 14:05] VITALS: BP 154/58; PULSE 74; RESP 18; TEMP 36.6; O2SAT 100
[2025-02-08 14:19] VITALS: BP 154/58; PULSE 74; RESP 18; TEMP 36.6; O2SAT 100
== END 2025-02-08 14:26 | disposition home or self-care (01) ==
PROVIDERS: Emergency Provider Emergency Medicine; PCP Student in an Organized Health Care Education/Training Program
DX: R42 Dizziness and giddiness (principal); R51.9 Headache, unspecified; K76.6 Portal hypertension; I81 Portal vein thrombosis; I85.10 Secondary esophageal varices without bleeding; B18.2 Chronic viral hepatitis C
CPT/HCPCS: 36415; 80053; 83735; 85025; 93005; 99283; 99284

== ENCOUNTER → 2025-02-08 12:22 | Outpatient (BNV) | payer MEDICAID, SELFPAY | PROVIDERS: Emergency Provider Emergency Medicine; PCP Student in an Organized Health Care Education/Training Program; Visit Provider Internal Medicine | DX: R42 Dizziness and giddiness (principal) | CPT/HCPCS: 93010 ==

== ENCOUNTER 2025-02-08 23:37 | Emergency (ER) | payer MEDICAID, SELFPAY ==
[2025-02-08 23:43] VITALS: BP 150/80; PULSE 74; O2SAT 98
[2025-02-08 23:44] VITALS: BP 123/88; PULSE 73; RESP 16; TEMP 36.6; O2SAT 100
[2025-02-08 23:46] VITALS: BP 123/88; PULSE 73; RESP 16; TEMP 36.6; O2SAT 100
[2025-02-09] VITALS (7 sets, daily range): BP systolic 107–176; BP diastolic 45–84; PULSE 73–89; RESP 16; TEMP 36.6–37.1; O2SAT 97–100
[2025-02-09 01:10] LABS: Ammonia 135 umol/L (13-55)
[2025-02-09 01:14] LABS: Basophils Percent Auto 0.6 % (0-2); Eosinophils Percent Auto 1.7 % (0-4); Hemoglobin 9.7 g/dl (14.0-18.0); Lymphocytes Absolute Auto 0.5 X10*3/uL (1.2-4.9); Lymphocytes Percent Auto 30.8 % (20-40); MANUAL DIFF FLAG SCAN; Mean Corpuscular HGB Conc 33.4 g/dl (31.0-36.0); Mean Corpuscular Volume 86.8 fL (80.0-98.0); Monocytes Absolute Auto 0.1 X10*3/uL (0.1-1.2); Monocytes Percent Auto 8.1 % (2-11); Neutrophils Percent Auto 58.8 % (45-73); Red Blood Count 3.34 X10*6/uL (4.60-5.80); Red Cell Distribution Width 13.9 % (11.0-16.0); SCAN SMEAR FLAG 1
[2025-02-09 01:15] LABS: White Blood Count 1.7 X10*3/uL (4.8-10.8)
[2025-02-09 01:16] LABS: Platelet Count 20 X10*3/uL (160-400)
[2025-02-09 01:24] LABS: B Type Natriuretic Peptide 125 pg/mL (<100)
[2025-02-09 01:29] LABS: Alanine Aminotransferase 28 U/L (0-40); Albumin Level 2.9 g/dL (3.5-5.0); Alkaline Phosphatase 136 U/L (39-117); Anion Gap 9 (12-20); Aspartate Amino Transferase 48 U/L (5-37); Bilirubin Total 1.7 mg/dL (0.0-1.0); Blood Urea Nitrogen 15 mg/dL (9-16); Calcium 8.8 mg/dL (8.4-10.2); Carbon Dioxide 23 mmol/L (22-29); Chloride 114 mmol/L (96-108); Creatinine Clr Calc Pharmacy 113.1; Estimated Glomerular Filt Rate > 60; Glucose Random 97 mg/dL (60-115); Lipase 24 U/L (8-78); Magnesium 1.9 mg/dL (1.6-2.6); Potassium 4.2 mmol/L (3.3-5.1); Sodium 142 mmol/L (135-145); Total Protein 6.1 g/dL (6.5-8.0)
[2025-02-09 02:02] LABS: SLIDE REVIEW VERIFIED
--- NOTE | 2025-02-09 02:24 | ED.GENADULT ---
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 He was seen here earlier this afternoon for the same complaint. He reports he was recently changed to 3 different medications. He was started on amlodipine, carvedilol, and furosemide He believes these medications are making him dizzy because he gets dizzy after taking them he also takes iron supplementation due to anemia He denies any pain. He has had intermittent headaches. Earlier it was felt that his dizziness was related to orthostasis as the patient is homeless and does not eat or drink much. He was fed and ultimately discharged home with a prescription for a walker The patient reports that his symptoms are worse upon standing Related Data Home Medications ?Medication ?Instructions ?Recorded ?Confirmed amlodipine 5 mg tablet 5 mg PO DAILY 12/03/24 02/09/25 ascorbic acid (vitamin C) 250 mg 250 mg PO DAILY 12/03/24 12/20/24 tablet clotrimazole 1 % topical cream 1 appl topical BID 12/03/24 12/20/24 ferrous sulfate 325 mg (65 mg 325 mg PO DAILY 12/03/24 12/20/24 iron) tablet furosemide 40 mg tablet 40 mg PO DAILY 12/03/24 02/09/25 Previous Rx's ?Medication ?Instructions ?Recorded carvedilol 3.125 mg tablet 3.125 mg PO BID #60 tabs 11/24/24 lactulose 10 gram/15 mL oral 30 g (45 mL) PO TID #1,500 mL 12/05/24 solution amoxicillin 875 mg-potassium 1 tab PO BID #14 tabs 01/22/25 clavulanate 125 mg tablet azithromycin 250 mg tablet 250 mg PO DAILY 4 days #4 tabs 01/22/25 walker #1 ea 02/08/25 Allergies Allergy/AdvReac Type Severity Reaction Status Date / Time dicyclomine [From Bentyl] Allergy Unknown Verified 02/08/25 23:45 aspirin AdvReac Severe stomach Verified 02/08/25 23:45 bleeding NSAIDS (Non-Steroidal AdvReac Severe liver Verified 02/08/25 23:45 Anti-Inflamma concerns Review of Systems Constitutional: Constitutional: Denies body ache(s), Denies chills, Denies fever(s) and Reports headache(s) Eyes: Eyes: Denies blurry vision ENT: Denies vertigo, Reports dizziness and Reports headache(s) Cardiovascular: Cardiovascular: Denies chest pain and Denies dyspnea Respiratory: Respiratory: Denies cough and Denies dyspnea Gastrointestinal: Gastrointestinal: Denies abdominal pain, Denies nausea and Denies vomiting Musculoskeletal: Musculoskeletal: Denies back pain Integumentary/Breasts: Skin/Breast: Denies rash Neurologic: Denies vertigo, Reports dizziness and Reports headache(s) Psychiatric: Psychiatric: Denies anxiety PMFSH Past Medical History Medical History Cirrhosis of liver Hepatic encephalopathy Portal vein thrombosis Cirrhosis Splenic vein thrombosis Sepsis Cirrhosis of liver with ascites Abdominal pain Thrombocytopenia Pancytopenia Cirrhosis Hepatitis C virus infection Esophageal varices Pancytopenia Iron deficiency anemia Cirrhosis Hepatitis C HBP (high blood pressure) Surgical History S/P TIPS (transjugular intrahepatic portosystemic shunt) H/O left inguinal hernia repair H/O eye surgery History of esophagogastroduodenoscopy (EGD) H/O colonoscopy Family History Family History Maternal Grandmother Breast CA Uterus cancer Mother Primary lung cancer of unknown cell type Social History Social History Household Members: Other Household Members Other:: skilled nursing Housing: Other Housing Other:: [facility] Are you a primary continuum of care manager to a significant other at home: No Do you presently have visiting nurse or other home services: No Alcohol intake: former Comment: pt refusing alarm's Patient Tobacco Use Status: Never used Tobacco Tobacco use type: Cigarette Cigarette Packs Per Day: 1 Cigarettes Per Day: 5 Years Smoked: 30 Second Hand Smoke Exposure: No Substance Use Type: Crack/Cocaine and Marijuana Advance Directives: Yes Advance Directives on File: Yes Advance Directives Date on File: 04/02/24 service: No Current occupational status: retired Physical Exam ED Vital Signs: Vital Signs - 24 hr 02/08/25 23:44 02/08/25 23:46 02/09/25 00:48 Temperature 97.9 F 97.9 F Pulse Rate 73 73 78 Respiratory Rate 16 16 Blood Pressure 123/88 123/88 143/62 H Pulse Oximetry 100 100 Oxygen Delivery Method Room Air Room Air 02/09/25 00:48 02/09/25 00:49 02/09/25 00:49 Temperature 97.8 F Pulse Rate 84 79 89 Respiratory Rate 16 Blood Pressure 150/52 H 143/62 H 176/61 H Pulse Oximetry 100 Oxygen Delivery Method Room Air 02/09/25 03:21 02/09/25 06:08 02/09/25 10:37 Temperature 97.8 F 97.8 F Pulse Rate 73 82 82 Respiratory Rate 16 16 Blood Pressure 107/45 L 128/50 L 128/50 L Pulse Oximetry 98 97 97 Oxygen Delivery Method Room Air Room Air BMI result Body Mass Index 30.0 Const General: healthy appearing, comfortable, no acute distress, alert and awake Nutritional Appearance: well nourished Orientation/consciousness: patient [facility] x3 [facility]: Yes normocephalic and Yes atraumatic Eyes Other: Enucleated right eye Eyelids: Yes eyelids normal (Left eye) Conjunctivae: conjunctivae normal (Left eye) Sclerae: sclerae normal (Left eye) Corneas: corneas normal (Left eye) Neck Neck: Yes full ROM Resp Effort & Inspection: normal respiratory effort, able to speak in complete sentences and not labored Skin General skin exam: elasticity normal Neuro General: patient oriented x3 Cranial nerves: Yes Bilaterally intact EOM present Cognition (Neuro): normal cognition Extrem Other: Moving all extremities well without any obvious deformities Course Course Course Narrative: Time: 11:33 Date: 02/09/25 Provider: JOY Rutherford Physician observation ended at 1133. Patient has been cleared by PT. CM states he is active w/ [facility] for retirement. currently resides at [facility]. His work up today is reassuring. I have evaluated patient at bedside, he is quite well appearing, exam benign. he has intermittent chronic dizziness, possibly associated to cardiac medications. tells me he only feels dizzy after taking his nightly carvedilol when he goes to stand out of bed. advised increased oral hydration, caution with position changes. he states he will contact his pcp (dr. aquino) for possible med changes. ambulating with steady gait in ED. he is stable for discharge at this time. his niece will be transporting him back to skilled nursing. Medical Decision Making Medical Decision Making [facility] Narrative: 64-year-old male presents for evaluation of dizziness. He denies any room spinning, denies any severe headache. He is neurologically intact, no focal neurologic deficits. He is somewhat unsteady on his gait in that his legs appear weak as he is wobbly. He does not have an ataxic gait. I do not suspect posterior stroke. He has no infectious symptoms, no fever, chills, upper respiratory symptoms. He had a CT scan ordered in the middle of January, about 2-1/2 weeks ago did not show any acute significant findings. The patient is not orthostatic, I did repeat his labs and there are no significant changes compared to 12 hours ago. He does have a chronic pancytopenia. Likely due to your liver cirrhosis. No significant electrolyte abnormalities warranting intervention. The patient's bilirubin zolpidem 1.7 with a slightly elevated AST, alk phos pneumonia, all likely related to her cirrhosis. Given the patient is somewhat unsteady on his feet, plan for case management evaluation. I do not see any indication to repeat CT imaging of the head today. Differential Diagnosis Differential Diagnoses: The differential diagnosis associated with the presentation includes Weakness Orthostasis Dehydration [place] Symptomatic anemia Admission/Observation Consideration of admission/observation: Escalation of care including admission/observation considered Lab Data [facility] Lab Attestation statement: I reviewed the patient's lab results. As above 02/09/25 00:59 02/09/25 00:59 Labs: Lab Results 02/09/25 02/09/25 Range/Units 00:59 08:41 WBC 1.7 L (4.8-10.8) X10*3/uL RBC 3.34 L (4.60-5.80) X10*6/uL Hgb 9.7 L (14.0-18.0) g/dl Hct 29.0 L (42.0-52.0) % MCV 86.8 (80.0-98.0) fL MCH 29.0 (27.0-33.0) pg MCHC 33.4 (31.0-36.0) g/dl RDW 13.9 (11.0-16.0) % Plt Count 20 L* (160-400) X10*3/uL MPV Not Reportable Immature Gran % (Auto) 0.0 (0.0-0.4) % Neut % (Auto) 58.8 (45-73) % Lymph % (Auto) 30.8 (20-40) % [place] % (Auto) 8.1 (2-11) % Eos % (Auto) 1.7 (0-4) % Baso % (Auto) 0.6 (0-2) % Lymph # (Auto) 0.5 L (1.2-4.9) X10*3/uL [place] # (Auto) 0.1 (0.1-1.2) X10*3/uL Eos # (Auto) 0.0 (0.0-0.4) X10*3/uL Baso # (Auto) 0.0 (0.0-0.2) X10*3/uL Abs Immat Gran (auto) 0.00 (0.00-0.03) X10*3/uL Absolute Neuts (auto) 1.0 L (2.0-8.3) x10*3/uL Absolute Nucleated RBC 0.000 (0.0-0.012) X10*3/uL Nucleated RBC % (auto) 0.0 (0.0-0.2) /100WBC Smear Tech's Comments VERIFIED Sodium 142 (135-145) mmol/L Potassium 4.2 (3.3-5.1) mmol/L Chloride 114 H (96-108) mmol/L Carbon Dioxide 23 (22-29) mmol/L Anion Gap 9 L (12-20) BUN 15 (9-16) mg/dL Creatinine 0.82 (0.5-1.4) mg/dL Estim Creat Clear Calc 113.1 Estimated GFR > 60 Random Glucose 97 (60-115) mg/dL Calcium 8.8 (8.4-10.2) mg/dL Magnesium 1.9 (1.6-2.6) mg/dL Total Bilirubin 1.7 H (0.0-1.0) mg/dL AST 48 H (5-37) U/L ALT 28 (0-40) U/L Alkaline Phosphatase 136 H (39-117) U/L Ammonia 135 H (13-55) umol/L B-Natriuretic Peptide 125 H (<100) pg/mL Total Protein 6.1 L (6.5-8.0) g/dL Albumin 2.9 L (3.5-5.0) g/dL Lipase 24 (8-78) U/L Influenza Type A (PCR) NEGATIVE (Negative) Influenza Type B (PCR) NEGATIVE (Negative) RSV RNA Qual (PCR) NEGATIVE (Negative) SARS-CoV-2 RNA (RT-PCR) NEGATIVE (Negative) Discharge Plan Discharge Clinical Impression: Dizziness Patient Disposition: Home, Self-Care Instructions: Dizziness (ED) Additional Instructions: Your workup in the ED today is reassuring. It is possible that you are feeling intermittently dizzy from your medications. After discussion, I recommend that you follow up with your primary care provider regarding possible medication changes. Make sure you are staying adequately hydrated. After taking your nightly medication, make sure you are lying down for bed. If you do get up, make sure you are using caution with position changes, making slow movements so your blood pressure can normalize. You were evaluated by physical therapy and case management. You are established with home services ([facility]). You may return with any new or worsening symptoms. In the case of an emergency call 911. Prescriptions: No Action carvedilol 3.125 mg tablet 3.125 mg PO BID Qty: 60 3RF furosemide 40 mg tablet 40 mg PO DAILY clotrimazole 1 % cream 1 appl topical BID ascorbic acid (vitamin C) 250 mg tablet 250 mg PO DAILY ferrous sulfate 325 mg (65 mg iron) tablet 325 mg PO DAILY amlodipine 5 mg Tablet 5 mg PO DAILY lactulose 10 gram/15 mL Solution 30 g PO TID Qty: 1500 0RF amoxicillin-pot clavulanate 875-125 mg tablet 1 tab PO BID Qty: 14 0RF azithromycin 250 mg tablet 250 mg PO DAILY 4 Days Qty: 4 0RF Rx Instructions: start on day 2 of therapy (DME) doris Sam See Rx Instructions .Route Qty: 1 0RF Rx Instructions: As directed Referrals: [facility] [Other] Leta Soto MD [Primary Care Provider] - 3 days (needs med changes) Print Language: [place] Islander
--- NOTE | 2025-02-09 03:48 | MHC.EDTECH ---
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
[2025-02-09 09:29] LABS: Influenza A PCR NEGATIVE (Negative); Influenza B PCR NEGATIVE (Negative); Resp Syncy Virus RNA Qual PCR NEGATIVE (Negative); SARS COV2 PCR INHOUSE NEGATIVE (Negative)
== END 2025-02-09 12:09 | disposition home or self-care (01) ==
PROVIDERS: Physician Assistant; Physician Assistant Medical; Emergency Provider Internal Medicine; PCP Student in an Organized Health Care Education/Training Program
DX: R42 Dizziness and giddiness (principal); D61.818 Other pancytopenia; R26.81 Unsteadiness on feet; R06.02 Shortness of breath; Z79.899 Other long term (current) drug therapy; Z03.818 Encounter for observation for suspected exposure to other biological agents ruled out; Z59.00 Homelessness unspecified
CPT/HCPCS: 0241U; 36415; 80053; 82140; 83690; 83735; 83880; 85025; 97161; 99284

== ENCOUNTER 2025-02-13 21:35 | Inpatient (IN) | payer MEDICAID, SELFPAY ==
--- NOTE | ~2025-02-13 | CT_ITS ---
CLINICAL HISTORY: Stroke Protocol - weakness CT head without contrast Comparison: CT/SR - CT HEAD/BRAIN WO IV CON - 01/21/25 17:39 EDT Findings: No intra-axial mass, midline shift, hydrocephalus, or acute hemorrhage. No significant atrophy-like change or white matter disease. Mild mucosal thickening in left maxillary sinus and otherwise sinuses and mastoid air cells are clear. 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 No acute skull fracture. IMPRESSION: 1. No acute intracranial findings. This document has been electronically signed by: Daphne Jensen MD on 02/13/2025 22:05:03
--- NOTE | ~2025-02-13 | CT_ITS ---
CLINICAL HISTORY: Stroke Protocol - weakness CT angiography head and neck with contrast. 3D Postprocessing. Comparison: None Findings: Examination limited by suboptimal contrast bolus in by diffuse artifact. Aortic arch suboptimally enhanced. Bilateral common carotid arteries enhance normally and appear normal in size. Bilateral carotid bifurcations are unremarkable. Bilateral internal carotid arteries and external carotid arteries are patent. No significant plaque or hemodynamically significant stenosis. Bilateral vertebral arteries are patent. Bilateral intracranial internal carotid arteries are patent. Vertebral basilar junction is unremarkable and basilar artery enhances normally. Bilateral anterior, middle and posterior cerebral arteries are patent. No aneurysm. No definite intracranial large vessel occlusion. No acute fracture. Degenerative changes in cervical spine. Left maxillary sinus mucosal thickening. IMPRESSION: 1. Limited examination by suboptimal contrast bolus and artifact. 2. Patent neck CTA. 3. No definite intracranial large vessel occlusion. This document has been electronically signed by: Daphne Jensen MD on 02/13/2025 23:05:42
[2025-02-13] MEDS: Midazolam HCl 5 MG/ML VIAL IM (21:35)
--- NOTE | 2025-02-13 21:38 | ECG_ITS ---
Test Reason : STROKE Blood Pressure : */* mmHG Vent. Rate : 83 BPM Atrial Rate : 83 BPM P-R Int : 132 ms QRS Dur : 84 ms QT Int : 418 ms P-R-T Axes : 40 17 63 degrees QTcB Int : 491 ms Normal sinus rhythm Prolonged QT Abnormal ECG When compared with ECG of 08-Feb-2025 12:32, No significant change was found Referred By: Cash Reno Electronically Signed By: ЕКАТЕРИНА ZARAGOZA
--- NOTE | 2025-02-13 21:38 | ED.AMS ---
HPI - Altered Mental Status General Chief Complaint: Stroke Stated Complaint: STROKE ALERT PER EMS Time Seen by Provider: 02/13/25 21:37 History of Present Illness ED Provider: Cash Reno MD HPI narrative: Arrival time, seen immediately upon arrival: 09/29/2036 Limited history provided by patient. EMS reports patient was euglycemic in the field. They were called to his residence an apartment complex where the patient was speaking to the manager business information of the building suddenly developed disorientation shaking and looked like he was going to pass out. Bystanders lowered him to the floor no trauma was sustained per bystanders. Upon arrival patient was distressed tremulous anxious looking. Nondiagnostic ECG was obtained. Patient was little bit confused combative. Per quick chart review medical history consistent with chronic hepatitis, Related Data Home Medications ?Medication ?Instructions ?Recorded ?Confirmed amlodipine 5 mg tablet 5 mg PO DAILY 12/03/24 02/09/25 ascorbic acid (vitamin C) 250 mg 250 mg PO DAILY 12/03/24 12/20/24 tablet clotrimazole 1 % topical cream 1 appl topical BID 12/03/24 12/20/24 ferrous sulfate 325 mg (65 mg 325 mg PO DAILY 12/03/24 12/20/24 iron) tablet furosemide 40 mg tablet 40 mg PO DAILY 12/03/24 02/09/25 Previous Rx's ?Medication ?Instructions ?Recorded carvedilol 3.125 mg tablet 3.125 mg PO BID #60 tabs 11/24/24 lactulose 10 gram/15 mL oral 30 g (45 mL) PO TID #1,500 mL 12/05/24 solution amoxicillin 875 mg-potassium 1 tab PO BID #14 tabs 01/22/25 clavulanate 125 mg tablet azithromycin 250 mg tablet 250 mg PO DAILY 4 days #4 tabs 01/22/25 walker #1 ea 02/08/25 Allergies Allergy/AdvReac Type Severity Reaction Status Date / Time dicyclomine [From Bentyl] Allergy Unknown Verified 02/13/25 21:47 aspirin AdvReac Severe stomach Verified 02/13/25 21:47 bleeding NSAIDS (Non-Steroidal AdvReac Severe liver Verified 02/13/25 21:47 Anti-Inflamma concerns PMFSH Past Medical History Medical History (Updated 02/14/25 @ 01:03 by Cash Reno MD) Cirrhosis of liver Hepatic encephalopathy Portal vein thrombosis Cirrhosis Splenic vein thrombosis Sepsis Cirrhosis of liver with ascites Abdominal pain Thrombocytopenia Pancytopenia Cirrhosis Hepatitis C virus infection Esophageal varices Pancytopenia Iron deficiency anemia Cirrhosis Hepatitis C HBP (high blood pressure) Surgical History S/P TIPS (transjugular intrahepatic portosystemic shunt) H/O left inguinal hernia repair H/O eye surgery History of esophagogastroduodenoscopy (EGD) H/O colonoscopy Family History Family History Maternal Grandmother Breast CA Uterus cancer Mother Primary lung cancer of unknown cell type Social History Social History Household Members: Other Household Members Other:: nursing home Housing: Other Housing Other:: Longterm Are you a primary direct care supervisor to a significant other at home: No Do you presently have visiting nurse or other home services: No Unable to assess alcohol history related to: Unknown Alcohol intake: former Comment: pt refusing alarm's Patient Tobacco Use Status: Never used Tobacco Tobacco use type: Cigarette Cigarette Packs Per Day: 1 Cigarettes Per Day: 5 Years Smoked: 30 Smoked in Last 30 Days: No Second Hand Smoke Exposure: No Use of substances other than those prescribed or required for medical reasons: Unknown Substance Use Type: Crack/Cocaine and Marijuana Advance Directives: Yes Advance Directives on File: Yes Advance Directives Date on File: 04/02/24 Do you have a plan to hurt others: No Plan Nutrition Risks: No Nutritional Risk service: No Current occupational status: retired Physical Exam ED Vital Signs: Vital Signs - 24 hr 02/13/25 22:02 02/13/25 22:21 Temperature 98.0 F 97.8 F Pulse Rate 92 81 Respiratory Rate 17 20 Blood Pressure 119/40 L Pulse Oximetry 99 98 Oxygen Delivery Method Room Air Room Air BMI result Body Mass Index 30.9 Const Other: GENERAL: Patient is anxious and distressed appearing his face is grossly symmetric but he is not appropriately responding verbally there is no gross slurring and he is speaking [place] Citizen. No obvious signs of trauma no clear obvious toxidrome. He has some tremor and is ludmila his upper arms but no seizure convulsive activity HEAD/NECK: Normal to inspection. Neck supple. No cervical lymphadenopathy. EYES: Left eye normal pupils 2-3 mm reactive. 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 I have seen this patient in the past he is known to have missing right eye. ENMT: External nose normal. RESPIRATORY: Respiratory effort normal. Lungs clear to auscultation bilaterally. CARDIOVASCULAR: Regular rate. Normal rhythm. No murmur. No rubs. GI: Soft, non-tender, non-distended. No rebound or guarding. No masses palpable. No hepatosplenomegaly. SKIN: No jaundice. NEUROLOGICAL: Alert. Voluntary movements of the upper extremities including right greater than left tremor. Not following commands for motor testing. Symmetric appearing face. No obvious leaning or truncal ataxia or fasciculations PSYCHIATRIC: Alert. Anxious appearing OTHER: NIH Stroke Scale Internal: Initial- Upon Arrival Time: 21:37 Level of Consciousness: Alert Level of Consciousness Questions: Answers neither question correctly Level of Consciousness Commands: Performs neither task correctly Best Gaze: Normal Visual: No visual loss Facial Palsy: Normal Motor Arm (Right): Some effort against gravity (Resisting but not following motor commands) Motor Arm (Left): Some effort against gravity (Resisting but not following motor command) Motor Leg (Right): No movement Motor Leg (Left): No movement Limb Ataxia: Absent Sensory: Normal Best Language: Mild to moderate aphasia Dysarthia: Mild to moderate dysarthria Extinction and Inattention: No abnormality Score: 18 Medications Administered Generic Name Dose Route Start Last Admin Trade Name Freq PRN Reason Stop Dose Admin Lactated Ringer's 1,000 mls @ 75 mls/hr 02/14/25 00:30 02/14/25 00:45 Lr IVCONT 75 mls/hr .[id number] LALI Administration Discontinued Medications Generic Name Dose Route Start Last Admin Trade Name Freq PRN Reason Stop Dose Admin Iohexol 70 ml 02/13/25 22:05 02/13/25 22:06 Iohexol 350 Mg/Ml 100 Ml Infus..Btl IV 02/13/25 22:06 70 ml ONCE ONE Administration Lactulose 20 gm 02/13/25 23:10 02/13/25 23:36 Lactulose 20 Gm/30 Ml Solution PO 02/13/25 23:11 20 gm ONCE ONE Administration Lactulose 20 gm 02/14/25 00:40 02/14/25 00:45 Lactulose 20 Gm/30 Ml Solution PO 02/14/25 00:41 20 gm ONCE ONE Administration Midazolam HCl 5 mg 02/13/25 21:38 02/13/25 21:35 Midazolam Hcl 5 Mg/Ml Vial IM 02/13/25 21:39 5 mg ONCE ONE Administration Medical Decision Making Medical Decision Making [facility] Narrative: [age] male with liver disease, previous hepatic encephalopathy, chronic pancytopenia, loss of the right eye with abrupt dizzy/near syncopal event with encephalopathy presentation. I have actually personally cared for this patient in the past in an episode of hepatic encephalopathy and this is not consistent with that nor with my review of previous admissions for his recurrent hepatic encephalopathy. There was a concern for possible stroke given he was ?dizzy ?in the field though there was no focal deficits his presentation to me is less suggestive of acute ischemic event certainly could be an intracranial hemorrhage and given the challenging presentation it is reasonable to exclude an acute ischemic event with CT angio head and neck and CT brain which we will do. We will do broad laboratory workup. ___ CTA head and neck and noncontrast head CT did not suggest acute intracranial process. After midazolam patient was much more agreeable and calm tremor subsided he had no focal deficits on reexamination. At this point I am doubtful this is an acute neurologic process given the nonspecific nature of his presentation, the elevated ammonia and underlying cirrhotic/recurrent hepatic encephalopathy disease this is more likely to be a metabolic encephalopathy picture. There was no convulsion or seizure. He is not meningitic. I will give lactulose and discussed with hospitalist Differential Diagnosis Differential Diagnoses: The differential diagnosis associated with the presentation includes Encephalopathy, psychogenic behavioral change, less likely seizure, possibly syncope, CVA/TIAs less likely Admission/Observation Consideration of admission/observation: Escalation of care including admission/observation considered Consult Healthcare Provider Management of the patient was discussed with: Hospitalist Lab Data [facility] Lab Attestation statement: I reviewed the patient's lab results. 02/13/25 22:26 02/13/25 22:26 Labs: Lab Results 02/13/25 02/13/25 02/13/25 Range/Units 21:44 22:26 22:48 WBC 1.5 L (4.8-10.8) X10*3/uL RBC 2.85 L (4.60-5.80) X10*6/uL Hgb 8.3 L (14.0-18.0) g/dl Hct 24.3 L (42.0-52.0) % MCV 85.3 (80.0-98.0) fL MCH 29.1 (27.0-33.0) pg MCHC 34.2 (31.0-36.0) g/dl RDW 13.9 (11.0-16.0) % Plt Count 16 L* (160-400) X10*3/uL MPV TNP Immature Gran % (Auto) 0.0 (0.0-0.4) % Neut % (Auto) 54.5 (45-73) % Lymph % (Auto) 32.4 (20-40) % [place] % (Auto) 11.0 (2-11) % Eos % (Auto) 1.4 (0-4) % Baso % (Auto) 0.7 (0-2) % Lymph # (Auto) 0.5 L (1.2-4.9) X10*3/uL [place] # (Auto) 0.2 (0.1-1.2) X10*3/uL Eos # (Auto) 0.0 (0.0-0.4) X10*3/uL Baso # (Auto) 0.0 (0.0-0.2) X10*3/uL Abs Immat Gran (auto) 0.00 (0.00-0.03) X10*3/uL Absolute Neuts (auto) 0.8 L (2.0-8.3) x10*3/uL Absolute Nucleated RBC 0.000 (0.0-0.012) X10*3/uL Nucleated RBC % (auto) 0.0 (0.0-0.2) /100WBC PT 17.9 H (10.9-12.4) SEC Whole Blood PT 13.5 (11.1-13.5) sec INR 1.6 H (0.9-1.1) Whole Blood INR 1.1 (0.9-1.1) APTT 35.6 (26.0-36.8) SEC Sodium 141 (135-145) mmol/L Potassium 3.8 (3.3-5.1) mmol/L Chloride 115 H (96-108) mmol/L Carbon Dioxide 22 (22-29) mmol/L Anion Gap 8 L (12-20) BUN 16 (9-16) mg/dL Creatinine 0.76 (0.5-1.4) mg/dL Estim Creat Clear Calc 116.6 Estimated GFR > 60 Random Glucose 116 H (60-115) mg/dL Calcium 8.2 L D (8.4-10.2) mg/dL Magnesium 1.9 (1.6-2.6) mg/dL Total Bilirubin 1.4 H (0.0-1.0) mg/dL Direct Bilirubin 0.6 H (0.0-0.5) mg/dL AST 43 H (5-37) U/L ALT 25 (0-40) U/L Alkaline Phosphatase 128 H (39-117) U/L Ammonia 163 H (13-55) umol/L Troponin I High Sens 34.9 D (<3.5-35.0) ng/L Total Protein 5.5 L (6.5-8.0) g/dL Albumin 2.6 L (3.5-5.0) g/dL Triglycerides 47 (<150) mg/dL Cholesterol 92 (<200) mg/dL LDL Cholesterol, Calc 51 (<100) mg/dL HDL Cholesterol 32 L (>40) mg/dL TSH 0.97 (0.32-4.0) uIU/mL Ethyl Alcohol < 10 mg/dL Radiology Impression Discussion of test interpretation with radiology: I discussed test interpretation with the radiologist (We will radiology called to reveal a negative emergent stroke CT) and I have reviewed the radiologist's reading. Independent Historian Clinical information obtained from an independent historian. History obtained from or confirmed by: EMS External Record Review External record reviewed: Inpatient record Critical Care Time Critical Care Time Critical Care Time: Yes Total Critical Care Time: 30 Attestation: ED Critical Care: Stroke alert activation Authorized and Performed by: Cash Reno MD Total critical care time: Approximately 30 Due to a high probability of clinically significant, life threatening deterioration, the patient required my highest level of preparedness to intervene emergently and I personally spent this critical care time directly and personally managing the patient. This critical care time included obtaining a history; examining the patient; pulse oximetry; ordering and review of studies; arranging urgent treatment with development of a management plan; evaluation of patient's response to treatment; frequent reassessment; and, discussions with other providers. This critical care time was performed to assess and manage the high probability of imminent, life-threatening deterioration that could result in multi-organ failure. It was exclusive of separately billable procedures and treating other patients and teaching time. Discharge Plan Discharge Clinical Impression: Acute hepatic encephalopathy Patient Disposition: Admitted As Inpatient
[2025-02-13 21:45] VITALS: BP 164/70; PULSE 100; O2SAT 97; BMI 30.9
[2025-02-13 21:47] LABS: Prothrombin Time Whole Bld POC 13.5 sec (11.1-13.5); ~PT, ~INR - Anti Coag Clinic 1.1 (0.9-1.1)
[2025-02-13 22:02] VITALS: PULSE 92; RESP 17; TEMP 36.7; O2SAT 99
--- NOTE | 2025-02-13 22:02 | PC.NURSE ---
pt a&ox0, respirations even and unlabored. ems called stroke alert at this time. per ems, safety and occupational health manager of [facility] that pt lives at called for pt reports headache, weakness and tremors after sliding onto floor. pt was unable to follow commands. on arrival, provider at bedside. pt combative, angry and interfering with medical devices. IM versed given at 2134. after Versed, this rn placed 20g in left bicep. pt taken to ct. pt in ct from 2134 to 2199. pt taken to room, placed on tele. vitals obtained.
[2025-02-13] MEDS: iohexoL 350 MG/ML 100 ML INFUS..BTL 70 ML IV (22:06)
[2025-02-13 22:21] VITALS: BP 119/40; PULSE 81; RESP 20; TEMP 36.6; O2SAT 98
[2025-02-13 22:35] LABS: MANUAL DIFF FLAG NO
[2025-02-13 22:37] LABS: SCAN SMEAR FLAG 1
[2025-02-13 22:38] LABS: Basophils Percent Auto 0.7 % (0-2); Eosinophils Percent Auto 1.4 % (0-4); Hematocrit 24.3 % (42.0-52.0); Hemoglobin 8.3 g/dl (14.0-18.0); Lymphocytes Absolute Auto 0.5 X10*3/uL (1.2-4.9); Lymphocytes Percent Auto 32.4 % (20-40); Mean Corpuscular HGB Conc 34.2 g/dl (31.0-36.0); Mean Corpuscular Hemoglobin 29.1 pg (27.0-33.0); Mean Corpuscular Volume 85.3 fL (80.0-98.0); Monocytes Absolute Auto 0.2 X10*3/uL (0.1-1.2); Neutrophils Absolute Auto 0.8 x10*3/uL (2.0-8.3); Neutrophils Percent Auto 54.5 % (45-73); Red Blood Count 2.85 X10*6/uL (4.60-5.80); Red Cell Distribution Width 13.9 % (11.0-16.0)
[2025-02-13 22:39] LABS: PLT ABN DIST 1; White Blood Count 1.5 X10*3/uL (4.8-10.8)
[2025-02-13 22:42] LABS: INTERNATIONAL NORM RATIO 1.6 (0.9-1.1); Platelet Count 16 X10*3/uL (160-400); Prothrombin Time 17.9 SEC (10.9-12.4)
[2025-02-13 22:44] LABS: Partial Thromboplastin Time 35.6 SEC (26.0-36.8)
[2025-02-13 22:46] LABS: Stroke Lab Use COMPLETE
[2025-02-13 22:58] LABS: Anion Gap 8 (12-20); Blood Urea Nitrogen 16 mg/dL (9-16); Calcium 8.2 mg/dL (8.4-10.2); Carbon Dioxide 22 mmol/L (22-29); Chloride 115 mmol/L (96-108); Cholesterol 92 mg/dL (<200); Creatinine Clr Calc Pharmacy 116.6; Estimated Glomerular Filt Rate > 60; Glucose Random 116 mg/dL (60-115); HDL Cholesterol 32 mg/dL (>40); LDL Cholesterol Calculated 51 mg/dL (<100); Potassium 3.8 mmol/L (3.3-5.1); Sodium 141 mmol/L (135-145); Triglycerides 47 mg/dL (<150)
[2025-02-13 23:05] LABS: Ammonia 163 umol/L (13-55)
[2025-02-13 23:05] LABS: Troponin-I High Sensitivity 34.9 ng/L (<3.5-35.0)
--- NOTE | 2025-02-13 23:35 | PC.NURSE ---
nursing swallow eval at bedside passed at this time. Pt medicated per MAR, stroke education given to DIGESTER HAND a bedside
[2025-02-13] MEDS: Lactulose 20 GM/30 ML SOLUTION PO (23:36)
--- NOTE | 2025-02-13 23:39 | P.HPHOSP_ITS ---
History of Present Illness Date of Service: 02/13/25 Attending physician on admission: Colin Tee Chief Complaint: AMS Patient is a 64-year-old male with a past medical history significant for cirrhosis s/p TIPS, hx hep C, portal and spenic vein thrombosis, chornic thrombocytopenia and HTN, who presented to the ED due to dizziness, confusion, and a syncopal episode. The patient's family members present but did not witnessed the episode however reports that she was told that he was altered and agitated and complained of a headache and dizziness and lower dose of to a ground. It is unclear if he had a head strike or full syncopal episode. The patient is unable to give any history at this time. EMS called a stroke alert and head CT/CTA both were negative. His ammonia level was elevated at 168. He was treated with 1 dose p.o. lactulose and has yet to have a bowel movement any change in symptoms. He did need to resume midazolam for his imaging as well as agitation. Currently the patient has psychomotor slowing. Review of Systems 2 Review of Systems: Yes Unobtainable due to mental status [facility] Medical History (Updated 02/14/25 @ 00:29 by Judy Flores PA-C) Cirrhosis of liver Hepatic encephalopathy Portal vein thrombosis Cirrhosis Splenic vein thrombosis Sepsis Cirrhosis of liver with ascites Abdominal pain Thrombocytopenia Pancytopenia Cirrhosis Hepatitis C virus infection Esophageal varices Pancytopenia Iron deficiency anemia Cirrhosis Hepatitis C HBP (high blood pressure) Family History Maternal Grandmother Breast CA Uterus cancer Mother Primary lung cancer of unknown cell type Surgical History S/P TIPS (transjugular intrahepatic portosystemic shunt) H/O left inguinal hernia repair H/O eye surgery History of esophagogastroduodenoscopy (EGD) H/O colonoscopy Social History Household Members: Other Household Members Other:: alf Housing: Other Housing Other:: Care Home Are you a primary care management coordinator to a significant other at home: No Do you presently have visiting nurse or other home services: No Unable to assess alcohol history related to: Unknown Alcohol intake: former Comment: pt refusing alarm's Patient Tobacco Use Status: Never used Tobacco Tobacco use type: Cigarette Cigarette Packs Per Day: 1 Cigarettes Per Day: 5 Years Smoked: 30 Smoked in Last 30 Days: No Second Hand Smoke Exposure: No Use of substances other than those prescribed or required for medical reasons: Unknown Substance Use Type: Crack/Cocaine and Marijuana Advance Directives: Yes Advance Directives on File: Yes Advance Directives Date on File: 04/02/24 Do you have a plan to hurt others: No Plan Nutrition Risks: No Nutritional Risk service: No Current occupational status: retired Narrative: Family member states patient we will occasionally smoke 1 cigarette, no recent alcohol or drug use Meds Allergies Allergy/AdvReac Type Severity Reaction Status Date / Time dicyclomine [From Bentyl] Allergy Unknown Verified 02/13/25 21:47 aspirin AdvReac Severe stomach Verified 02/13/25 21:47 bleeding NSAIDS (Non-Steroidal AdvReac Severe liver Verified 02/13/25 21:47 Anti-Inflamma concerns Home Medications ?Medication ?Instructions ?Recorded ?Confirmed ?Last Taken ?Type amlodipine 5 mg tablet 5 mg PO DAILY 12/03/24 02/09/25 Unknown History ascorbic acid (vitamin C) 250 mg 250 mg PO DAILY 12/03/24 12/20/24 Unknown History tablet clotrimazole 1 % topical cream 1 appl topical BID 12/03/24 12/20/24 Unknown History ferrous sulfate 325 mg (65 mg 325 mg PO DAILY 12/03/24 12/20/24 Unknown History iron) tablet furosemide 40 mg tablet 40 mg PO DAILY 12/03/24 02/09/25 Unknown History Physical Exam 2 Vital Signs and Narrative: Vital Signs: Last Vital Signs Temp 97.8 F 02/13/25 22:21 Pulse 81 02/13/25 22:21 Resp 20 02/13/25 22:21 BP 119/40 L 02/13/25 22:21 Pulse Ox 98 02/13/25 22:21 O2 Del Method Room Air 02/13/25 22:21 BMI result Body Mass Index 30.9 General: Somnolent, psychomotor slowing, will respond to name, inappropriate responses to questions, no acute distress Resp: CTA bilaterally, no wheezing or crackles, diminished throughout CVS: S1, S2, RRR GI: +BS, NT, no distention Skin: Warm, dry Neuro: Cranial nerves II-XII grossly intact bilaterally. Motor grossly intact bilaterally Extremities: No lower extremity edema Psych: Confused, inappropriate responses to questions if at all responsive Results Labs 02/13/25 22:26 02/13/25 22:26 Labs: Laboratory Results - last 24 hr 02/13/25 02/13/25 02/13/25 21:44 22:26 22:48 MCV 85.3 MCH 29.1 MCHC 34.2 RDW 13.9 Plt Count 16 L* MPV TNP Immature Gran % (Auto) 0.0 Neut % (Auto) 54.5 Lymph % (Auto) 32.4 [place] % (Auto) 11.0 Eos % (Auto) 1.4 Baso % (Auto) 0.7 Lymph # (Auto) 0.5 L [place] # (Auto) 0.2 Eos # (Auto) 0.0 Baso # (Auto) 0.0 Abs Immat Gran (auto) 0.00 Absolute Neuts (auto) 0.8 L Absolute Nucleated RBC 0.000 Nucleated RBC % (auto) 0.0 PT 17.9 H Whole Blood PT 13.5 INR 1.6 H Whole Blood INR 1.1 APTT 35.6 Anion Gap 8 L Estim Creat Clear Calc 116.6 Estimated GFR > 60 Random Glucose 116 H Calcium 8.2 L D Ammonia 163 H Troponin I High Sens 34.9 D Triglycerides 47 Cholesterol 92 LDL Cholesterol, Calc 51 HDL Cholesterol 32 L Assessment and Plan (1) Acute hepatic encephalopathy: Status: Acute (2) Fall: Status: Acute (3) Pancytopenia: Status: Acute (4) Obesity (BMI 30.0-34.9): Status: Acute Plan Patient is a 64-year-old male with a past medical history significant for cirrhosis s/p TIPS, hx hep C, portal and splenic vein thrombosis, chronic thrombocytopenia and HTN, who presented to the ED due to dizziness, confusion, and a syncopal episode. Fall secondary to acute hepatic encephalopathy, new agitation - head CT/CTA negative - lipid panel with HDL - ammonia 168 - normal etoh level - u tox ordered but not yet done - given 1 dose p.o. lactulose in ED, give additional rectal dose - bedside swallow passed with nursing - recheck ammonia in the AM - check LFTs, TSH - monitor on tele - orthostatics when more alert - NPO until more alert pancytopenia -- chronic, secondary to cirrhosis - hgb down from 4 days ago, now 8.3 - platelets also lower, now 16 - check occult blood - monitor CBC HTN - resume home meds when appropriate Class 1 obesity - BMI 30.9 - weight loss encouraged Full code VTE prophy: Pneumoboots Patient with fall secondary to acute hepatic encephalopathy with new agitation, requiring admission for observation and further evaluation. Quality Stroke Does the patient have a stroke diagnosis?: No VTE Prior VTE?: No VTE Risk Level:: Medical - moderate - high VTE Device Contraindication: N/A - Device Ordered VTE Drug Contraindication: Treatment Not Indicated
[2025-02-13 23:43] LABS: Ethanol < 10 mg/dL
[2025-02-14] VITALS (8 sets, daily range): BP systolic 105–152; BP diastolic 40–56; PULSE 67–80; RESP 15–20; TEMP 36.5–37.1; O2SAT 98–100; BMI 31.5
--- NOTE | 2025-02-14 | ECG_ITS ---
Test Reason : RYTHM CHANGE Blood Pressure : */* mmHG Vent. Rate : 70 BPM Atrial Rate : 70 BPM P-R Int : 140 ms QRS Dur : 72 ms QT Int : 446 ms P-R-T Axes : 25 28 64 degrees QTcB Int : 481 ms Normal sinus rhythm Normal ECG When compared with ECG of 13-Feb-2025 22:15, No significant change was found Referred By: Getachew Vega Electronically Signed By: ЕКАТЕРИНА ZARAGOZA
--- NOTE | 2025-02-14 00:27 | MHC.EDTECH ---
mid night rounding done ,vitals taken ,Patient belongings list done and Patient cousin took all Patient belongings home except his under wear ,Patient was a max asst of 2 for reposition ,Orthostatics vitals taken ,Patient was not able to stand up for standing Orthos ,RN Rachel aware ,Call gorman within Pt reach ,all safety measure in Place .
[2025-02-14 00:42] LABS: Alanine Aminotransferase 25 U/L (0-40); Albumin Level 2.6 g/dL (3.5-5.0); Alkaline Phosphatase 128 U/L (39-117); Aspartate Amino Transferase 43 U/L (5-37); Bilirubin Direct 0.6 mg/dL (0.0-0.5); Bilirubin Total 1.4 mg/dL (0.0-1.0); Magnesium 1.9 mg/dL (1.6-2.6); Total Protein 5.5 g/dL (6.5-8.0)
[2025-02-14] MEDS: Lactated Ringers 1,000 ML 75 ML IVCONT ×2 (00:45→14:30)
[2025-02-14] MEDS: Lactulose 20 GM/30 ML SOLUTION PO (00:45)
[2025-02-14 00:56] LABS: TSH reflex Free T4 0.97 uIU/mL (0.32-4.0)
--- NOTE | 2025-02-14 04:10 | PC.NURSE ---
pt has not yet voided during his stay thus far. Provider notified as bladder scan revealed 424 mL, planned for straight cath
--- NOTE | 2025-02-14 04:12 | MHC.EDTECH ---
0400 rounding done ,vitals taken ,Patient sleeping ,RN aware that Patient has not void since he came in , Bladder scan done ,RN Rachel aware of 424 ml in Patient bladder.
[2025-02-14 04:32] LABS: Eosinophils Percent Auto 1.7 % (0-4); Hematocrit 25.2 % (42.0-52.0); Hemoglobin 8.6 g/dl (14.0-18.0); Lymphocytes Absolute Auto 0.5 X10*3/uL (1.2-4.9); Lymphocytes Percent Auto 39.7 % (20-40); MANUAL DIFF FLAG SCAN; Mean Corpuscular HGB Conc 34.1 g/dl (31.0-36.0); Mean Corpuscular Hemoglobin 29.3 pg (27.0-33.0); Mean Corpuscular Volume 85.7 fL (80.0-98.0); Monocytes Absolute Auto 0.1 X10*3/uL (0.1-1.2); Monocytes Percent Auto 9.1 % (2-11); Neutrophils Absolute Auto 0.6 x10*3/uL (2.0-8.3); Neutrophils Percent Auto 49.5 % (45-73); Red Blood Count 2.94 X10*6/uL (4.60-5.80); Red Cell Distribution Width 13.8 % (11.0-16.0); SCAN SMEAR FLAG 1
[2025-02-14 04:33] LABS: White Blood Count 1.2 X10*3/uL (4.8-10.8)
[2025-02-14 04:34] LABS: Platelet Count 17 X10*3/uL (160-400)
[2025-02-14 04:38] LABS: Ammonia 177 umol/L (13-55)
--- NOTE | 2025-02-14 04:41 | MHC.EDTECH ---
Patient awake ,void 550 ml urine ,urine sample collected and sent to lab .
[2025-02-14 04:44] LABS: Alanine Aminotransferase 25 U/L (0-40); Albumin Level 2.6 g/dL (3.5-5.0); Alkaline Phosphatase 117 U/L (39-117); Anion Gap 7 (12-20); Aspartate Amino Transferase 46 U/L (5-37); Bilirubin Total 1.2 mg/dL (0.0-1.0); Blood Urea Nitrogen 15 mg/dL (9-16); Calcium 7.9 mg/dL (8.4-10.2); Carbon Dioxide 24 mmol/L (22-29); Chloride 116 mmol/L (96-108); Creatinine Clr Calc Pharmacy 127.7; Estimated Glomerular Filt Rate > 60; Glucose Random 136 mg/dL (60-115); Potassium 3.8 mmol/L (3.3-5.1); Sodium 143 mmol/L (135-145); Total Protein 5.4 g/dL (6.5-8.0)
[2025-02-14 04:45] LABS: Appearance Urine Clear; Color Urine Yellow; Glucose Urine UA Negative (Negative); Leukocyte Esterase Urine Negative (Negative); Nitrite Urine Negative (Negative); PH 5.5 (5.0-9.0); Specific Gravity - Urine >= 1.030 (1.005-1.025); Urine Blood Negative (Negative); Urine Ketones Negative (Negative); Urine Protein Negative (Neg-Trace)
[2025-02-14 04:57] LABS: SLIDE REVIEW VERIFIED
[2025-02-14 04:59] LABS: Amphetamine Screen Urine Not Detected (Not Detect); Barbiturates, Urine Not Detected (Not Detect); Benzodiazepines Screen Urine POSITIVE (Not Detect); Buprenorphine Scr Not Detected (Not Detect); Cannabinoid Screen Urine Not Detected (Not Detect); Cocaine Screen Urine Not Detected (Not Detect); Fentanyl, urine Not Detected (Not Detect); Methadone Screen, Urine Not Detected (Not Detect); Opiate Screen Urine Not Detected (Not Detect); Oxycodone Screen Urine Not Detected (Not Detect); Phencyclidine Screen Urine Not Detected (Not Detect)
--- NOTE | 2025-02-14 06:10 | MHC.EDTECH ---
0600 rounding done ,vitals taken ,Pt sleeping ,no apparent distress noted ,breaths are even and unlabored ,Call gorman within Pt reach .
--- NOTE | 2025-02-14 09:27 | PC.NURSE ---
Pt noted to have rhythm change on monitor- run of vtach, strip printed and put into chart. Pt asymptomatic, denies cp/sob, a/ox3. NSR on monitor- HR 70s. Silvia aware- per MD monitor pt for changes.
[2025-02-14] MEDS: rifAXIMin 550 MG TABLET PO ×3 (09:48→21:20)
[2025-02-14] MEDS: Lactulose 20 GM/30 ML SOLUTION 30 GM PO ×3 (09:49→21:21)
[2025-02-14 09:54] LABS: Magnesium 1.9 mg/dL (1.6-2.6)
--- NOTE | 2025-02-14 10:46 | MHC.CM.PN ---
Patient is here with AMS;CM spoke with Cousin/HCP/Iyvchrista @ [phone], with the assist of a Telephonic Glass Fitter; Iyvchrista will transport Patient back to the [facility] @ time of dc. [facility] lives in a [facility] @ listed address and hopes to return there when dc'd from the hospital. CM has initiated and will follow for dc planning.Patient's PCP is Dr. Leta Stover.
--- NOTE | 2025-02-14 12:28 | P.PNIM_ITS ---
Subjective Subjective Date of Service: 02/14/25 Interval History: more awake, hungry No hematemesis, hematochezia, or melena. not sure why he has cirrhosis 13 beats NSVT without symptoms Review of Systems Review of Systems: Yes all other systems are reviewed and are negative Physical Exam 2 Vital Signs: Vital Signs: Last Vital Signs Temp 98.7 F 02/14/25 06:08 Pulse 68 02/14/25 07:42 Resp 16 02/14/25 07:42 BP 119/49 L 02/14/25 07:42 Pulse Ox 100 02/14/25 07:42 O2 Del Method Room Air 02/14/25 07:42 BMI result Body Mass Index 31.5 Gen: in no acute distress HEENT: sclera anicteric, moist mucus membranes Neck: supple Lungs: clear to auscultation bilaterally Heart: regular rate and rhythm, no murmurs Abd: soft, non-tender, non-distended Ext: no edema Skin: warm/well-perfused Neuro: alert and oriented x3, no focal findings, asterixis present Psych: appropriate affect Objective Data Active Medications Acetaminophen (Acetaminophen 325 Mg Tablet) 650 mg PO Q6H PRN PRN Reason: Pain, Mild 1-3,fever,headache Calcium Carbonate (Calcium Carbonate 750 Mg Tab.Chew) 750 mg PO Q4H PRN PRN Reason: Heartburn Lactated Ringer's (Lr) 1,000 mls @ 75 mls/hr IVCONT .[id number] [facility] Last Admin: 02/14/25 00:45 Dose: 75 mls/hr Documented By: BUCKY Lactulose (Lactulose 20 Gm/30 Ml Solution) 30 gm PO TID [facility] Last Admin: 02/14/25 09:49 Dose: 30 gm Documented By: PALMIRA Magnesium Hydroxide (Milk Of Magnesia 30 Ml Oral.Susp) 30 ml PO DAILY PRN PRN Reason: Constipation Melatonin (Melatonin 3 Mg Tablet) 6 mg PO BEDTIME PRN PRN Reason: Insomnia Rifaximin (Rifaximin 550 Mg Tablet) 550 mg PO TID [facility] Last Admin: 02/14/25 09:48 Dose: 550 mg Documented By: PALMIRA Sodium Chloride (0.9 % Sodium Chloride Flush 3 Ml Syringe) 3 ml IVFLUSH QSHIFT [facility] Last Admin: 02/14/25 10:00 Dose: Not Given Documented By: PALMIRA Non-Admin Reason: IV Running Labs 02/14/25 04:05 02/14/25 04:05 Labs: Laboratory Results - last 24 hr 02/13/25 02/13/25 02/13/25 21:44 22:26 22:48 MCV 85.3 MCH 29.1 MCHC 34.2 RDW 13.9 Plt Count 16 L* MPV TNP Immature Gran % (Auto) 0.0 Neut % (Auto) 54.5 Lymph % (Auto) 32.4 [place] % (Auto) 11.0 Eos % (Auto) 1.4 Baso % (Auto) 0.7 Lymph # (Auto) 0.5 L [place] # (Auto) 0.2 Eos # (Auto) 0.0 Baso # (Auto) 0.0 Abs Immat Gran (auto) 0.00 Absolute Neuts (auto) 0.8 L Absolute Nucleated RBC 0.000 Nucleated RBC % (auto) 0.0 Smear Tech's Comments PT 17.9 H Whole Blood PT 13.5 INR 1.6 H Whole Blood INR 1.1 APTT 35.6 Anion Gap 8 L Estim Creat Clear Calc 116.6 Estimated GFR > 60 Random Glucose 116 H Calcium 8.2 L D Magnesium 1.9 Total Bilirubin 1.4 H Direct Bilirubin 0.6 H AST 43 H ALT 25 Alkaline Phosphatase 128 H Ammonia 163 H Troponin I High Sens 34.9 D Total Protein 5.5 L Albumin 2.6 L Triglycerides 47 Cholesterol 92 LDL Cholesterol, Calc 51 HDL Cholesterol 32 L TSH 0.97 Urine Color Urine Appearance Urine pH Ur Specific [place] Urine Protein Urine Glucose (UA) Urine Ketones Urine Blood Urine Nitrite Ur Leukocyte Esterase Urine Opiates Screen Ur Buprenorphine Scrn Ur Oxycodone Screen Urine Methadone Screen Urine Fentanyl Screen Ur Barbiturates Screen Ur Phencyclidine Scrn Ur Amphetamines Screen U Benzodiazepines Scrn Urine Cocaine Screen U Marijuana (THC) Screen Ethyl Alcohol < 10 02/14/25 02/14/25 04:05 04:37 MCV 85.7 MCH 29.3 MCHC 34.1 RDW 13.8 Plt Count 17 L* MPV TNP Immature Gran % (Auto) 0.0 Neut % (Auto) 49.5 Lymph % (Auto) 39.7 [place] % (Auto) 9.1 Eos % (Auto) 1.7 Baso % (Auto) 0.0 Lymph # (Auto) 0.5 L [place] # (Auto) 0.1 Eos # (Auto) 0.0 Baso # (Auto) 0.0 Abs Immat Gran (auto) 0.00 Absolute Neuts (auto) 0.6 L Absolute Nucleated RBC 0.000 Nucleated RBC % (auto) 0.0 Smear Tech's Comments VERIFIED PT Whole Blood PT INR Whole Blood INR APTT Anion Gap 7 L Estim Creat Clear Calc 127.7 Estimated GFR > 60 Random Glucose 136 H Calcium 7.9 L Magnesium 1.9 Total Bilirubin 1.2 H Direct Bilirubin AST 46 H ALT 25 Alkaline Phosphatase 117 Ammonia 177 H Troponin I High Sens Total Protein 5.4 L Albumin 2.6 L Triglycerides Cholesterol LDL Cholesterol, Calc HDL Cholesterol TSH Urine Color Yellow Urine Appearance Clear Urine pH 5.5 Ur Specific [place] >= 1.030 H Urine Protein Negative Urine Glucose (UA) Negative Urine Ketones Negative Urine Blood Negative Urine Nitrite Negative Ur Leukocyte Esterase Negative Urine Opiates Screen Not Detected Ur Buprenorphine Scrn Not Detected Ur Oxycodone Screen Not Detected Urine Methadone Screen Not Detected Urine Fentanyl Screen Not Detected Ur Barbiturates Screen Not Detected Ur Phencyclidine Scrn Not Detected Ur Amphetamines Screen Not Detected U Benzodiazepines Scrn POSITIVE H Urine Cocaine Screen Not Detected U Marijuana (THC) Screen Not Detected Ethyl Alcohol Assessment and Plan (1) Acute hepatic encephalopathy: Status: Acute Plan d2 for 64yo M with 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 There is mildly increased left ventricular wall thickness. The visually estimated ejection fraction is between 60-65%. - E/E prime ratio is between 8 and 15 consistent with indeterminate filling pressures. - Normal right ventricular cavity size and systolic function. - The left atrium is moderately dilated. - Normal aortic valve structure and function. - Normal mitral valve structure and function. - Normal tricuspid valve structure. HTN - resume amlodipine + carvedilol + furosemide once medications reconciled VTE ppx - SCDs; no heparin given thrombocytopenia dispo - TBD In my clinical judgment, the patient requires continued inpatient hospitalization for the following reasons: encephalopathy Total time managing care of this patient today: 35 minutes. Quality Stroke Does the patient have a stroke diagnosis?: No VTE Prior VTE?: No VTE Risk Level:: Medical - moderate - high VTE Device Contraindication: N/A - Device Ordered VTE Drug Contraindication: Treatment Not Indicated
[2025-02-14] MEDS: carvediloL 3.125 MG TABLET PO ×2 (13:41→21:20)
--- NOTE | 2025-02-14 13:51 | PC.NURSE ---
Pt requesting to speak with MD about getting some answers ; RN explained pt's dispo (waiting for bed assignment), explained need for abx and continuous IV fluids. Pt does not demonstrate evidence of learning, MD aware.
--- NOTE | 2025-02-14 15:48 | PHA.MEDREC ---
Addendum entered by Gerhard Peng PharmD 02/14/25 17:13: Found med list in room, it only contains Amlodipine 5mg Daily, Carvedilol 3.125mg BID, and Furosemide 40mg Daily. Addendum entered by Gerhard Peng PharmD 02/14/25 15:54: reviewed Original Note: Pharmacy Consult ? Medication Reconciliation Pharmacy has completed the medication reconciliation. Spoke with patient through an staff interpreter. He does not know his medications. Spoke with patients niece over the phone with an staff interpreter to confirm meds. She did not know them but had a list. Niece said she brought in the list and left it in the patients room. Room was checked x2 by myself and nurse with no list. Used claim history and previous discharge papers to confirm medications.
[2025-02-15] VITALS (9 sets, daily range): BP systolic 104–135; BP diastolic 54–62; PULSE 62–86; RESP 16–18; TEMP 36–37.1; O2SAT 96–100; BMI 31.1
[2025-02-15 07:46] LABS: MANUAL DIFF FLAG NO
[2025-02-15 07:56] LABS: Basophils Percent Auto 0.4 % (0-2); Eosinophils Absolute Auto 0.1 X10*3/uL (0.0-0.4); Eosinophils Percent Auto 2.4 % (0-4); Hematocrit 29.2 % (42.0-52.0); Hemoglobin 9.7 g/dl (14.0-18.0); INTERNATIONAL NORM RATIO 1.5 (0.9-1.1); Imm Gran Abs Auto 0.01 X10*3/uL (0.00-0.03); Imm Gran Pct Auto 0.4 % (0.0-0.4); Lymphocytes Absolute Auto 0.7 X10*3/uL (1.2-4.9); Lymphocytes Percent Auto 28.6 % (20-40); Mean Corpuscular HGB Conc 33.2 g/dl (31.0-36.0); Mean Corpuscular Volume 87.4 fL (80.0-98.0); Monocytes Absolute Auto 0.2 X10*3/uL (0.1-1.2); Monocytes Percent Auto 9.5 % (2-11); Neutrophils Absolute Auto 1.5 x10*3/uL (2.0-8.3); Neutrophils Percent Auto 58.7 % (45-73); Platelet Count 24 X10*3/uL (160-400); Prothrombin Time 17.6 SEC (10.9-12.4); Red Blood Count 3.34 X10*6/uL (4.60-5.80); Red Cell Distribution Width 13.6 % (11.0-16.0); White Blood Count 2.5 X10*3/uL (4.8-10.8)
[2025-02-15 08:00] LABS: Ammonia 85 umol/L (13-55)
[2025-02-15 08:05] LABS: Alanine Aminotransferase 29 U/L (0-40); Albumin Level 2.7 g/dL (3.5-5.0); Alkaline Phosphatase 132 U/L (39-117); Anion Gap 8 (12-20); Aspartate Amino Transferase 48 U/L (5-37); Bilirubin Total 1.6 mg/dL (0.0-1.0); Blood Urea Nitrogen 12 mg/dL (9-16); Calcium 8.1 mg/dL (8.4-10.2); Carbon Dioxide 24 mmol/L (22-29); Chloride 113 mmol/L (96-108); Estimated Glomerular Filt Rate > 60; Glucose Random 89 mg/dL (60-115); Magnesium 1.7 mg/dL (1.6-2.6); Potassium 4.5 mmol/L (3.3-5.1); Sodium 140 mmol/L (135-145); Total Protein 5.9 g/dL (6.5-8.0)
[2025-02-15] MEDS: Furosemide 40 MG TABLET PO (08:32)
[2025-02-15] MEDS: rifAXIMin 550 MG TABLET PO ×3 (08:32→19:55)
[2025-02-15] MEDS: amLODIPine Besylate 5 MG TABLET PO (08:32)
[2025-02-15] MEDS: Lactulose 20 GM/30 ML SOLUTION 30 GM PO ×3 (08:32→19:56)
[2025-02-15] MEDS: carvediloL 3.125 MG TABLET PO ×2 (08:32→19:55)
[2025-02-15] MEDS: 0.9 % Sodium Chloride Flush 3 ML SYRINGE IVFLUSH ×4 (09:09→19:59)
--- NOTE | 2025-02-15 10:20 | HO.PM.IMPN ---
Subjective Subjective Date of Service: 02/15/25 Interval History: This history was taken in [place]ian from the patient. Alert, denies confusion, denies missing his lactulose. No hematemesis, hematochezia, or melena. Review of Systems Review of Systems: Yes all other systems are reviewed and are negative Physical Exam Vital Signs: Vital Signs: Last Vital Signs Temp 98.1 F 02/15/25 07:18 Pulse 86 02/15/25 07:18 Resp 17 02/15/25 07:18 BP 120/62 02/15/25 07:18 Pulse Ox 97 02/15/25 07:18 O2 Del Method Room Air 02/15/25 07:18 BMI result Body Mass Index 31.1 Gen: in no acute distress HEENT: sclera anicteric, moist mucus membranes Neck: supple Lungs: clear to auscultation bilaterally Heart: regular rate and rhythm, no murmurs Abd: soft, non-tender, non-distended Ext: no edema Skin: warm/well-perfused Neuro: alert and oriented x3, no focal findings, minimal asterixis present Psych: appropriate affect Objective Data Active Medications Acetaminophen (Acetaminophen 325 Mg Tablet) 650 mg PO Q6H PRN PRN Reason: Pain, Mild 1-3,fever,headache Amlodipine Besylate (Amlodipine Besylate 5 Mg Tablet) 5 mg PO DAILY [facility]; Protocol Last Admin: 02/15/25 08:32 Dose: 5 mg Documented By: ANURADHA Calcium Carbonate (Calcium Carbonate 750 Mg Tab.Chew) 750 mg PO Q4H PRN PRN Reason: Heartburn Carvedilol (Carvedilol 3.125 Mg Tablet) 3.125 mg PO BID [facility]; Protocol Last Admin: 02/15/25 08:32 Dose: 3.125 mg Documented By: ANURADHA Furosemide (Furosemide 40 Mg Tablet) 40 mg PO DAILY [facility]; Protocol Last Admin: 02/15/25 08:32 Dose: 40 mg Documented By: ANURADHA Lactulose (Lactulose 20 Gm/30 Ml Solution) 30 gm PO TID [facility] Last Admin: 02/15/25 08:32 Dose: 30 gm Documented By: ANURADHA Magnesium Hydroxide (Milk Of Magnesia 30 Ml Oral.Susp) 30 ml PO DAILY PRN PRN Reason: Constipation Melatonin (Melatonin 3 Mg Tablet) 6 mg PO BEDTIME PRN PRN Reason: Insomnia Rifaximin (Rifaximin 550 Mg Tablet) 550 mg PO TID [facility] Last Admin: 02/15/25 08:32 Dose: 550 mg Documented By: ANURADHA Sodium Chloride (0.9 % Sodium Chloride Flush 3 Ml Syringe) 3 ml IVFLUSH QSHIFT [facility] Last Admin: 02/15/25 09:09 Dose: 3 ml Documented By: ANURADHA Labs 02/15/25 07:38 02/15/25 07:38 Labs: Laboratory Results - last 24 hr 02/15/25 07:38 MCV 87.4 MCH 29.0 MCHC 33.2 RDW 13.6 Plt Count 24 L D MPV Not Reportable Immature Gran % (Auto) 0.4 Neut % (Auto) 58.7 Lymph % (Auto) 28.6 [place] % (Auto) 9.5 Eos % (Auto) 2.4 Baso % (Auto) 0.4 Lymph # (Auto) 0.7 L [place] # (Auto) 0.2 Eos # (Auto) 0.1 Baso # (Auto) 0.0 Abs Immat Gran (auto) 0.01 Absolute Neuts (auto) 1.5 L Absolute Nucleated RBC 0.000 Nucleated RBC % (auto) 0.0 PT 17.6 H INR 1.5 H Anion Gap 8 L Estim Creat Clear Calc 114.0 Estimated GFR > 60 Random Glucose 89 Calcium 8.1 L Magnesium 1.7 Total Bilirubin 1.6 H AST 48 H ALT 29 Alkaline Phosphatase 132 H Ammonia 85 H Total Protein 5.9 L Albumin 2.7 L Blood Type O Negative Antibody Screen NEGATIVE Assessment and Plan (1) Acute hepatic encephalopathy: Status: Acute Plan d3 for 64yo M with 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 There is mildly increased left ventricular wall thickness. The visually estimated ejection fraction is between 60-65%. - E/E prime ratio is between 8 and 15 consistent with indeterminate filling pressures. - Normal right ventricular cavity size and systolic function. - The left atrium is moderately dilated. - Normal aortic valve structure and function. - Normal mitral valve structure and function. - Normal tricuspid valve structure. HTN - resumed amlodipine + carvedilol + furosemide VTE ppx - SCDs; no heparin given thrombocytopenia dispo - PT eval pending In my clinical judgment, the patient requires continued inpatient hospitalization for the following reasons: encephalopathy, placement Total time managing care of this patient today: 35 minutes. Quality Stroke Does the patient have a stroke diagnosis?: No VTE Prior VTE?: No VTE Risk Level:: Medical - moderate - high VTE Device Contraindication: N/A - Device Ordered VTE Drug Contraindication: Treatment Not Indicated
[2025-02-15 10:59] LABS: OBS Int Ctl Valid YES; OBS1 POSITIVE (NEGATIVE)
[2025-02-16 03:29] VITALS: BP 140/60; PULSE 73; RESP 16; TEMP 37.7; O2SAT 99
[2025-02-16 05:46] VITALS: BMI 31.2
[2025-02-16 06:45] LABS: Ammonia 165 umol/L (13-55)
[2025-02-16 07:13] VITALS: BP 104/55; PULSE 64; RESP 20; TEMP 36.7; O2SAT 100
[2025-02-16 07:36] LABS: MANUAL DIFF FLAG NO
[2025-02-16 07:43] LABS: Basophils Percent Auto 0.7 % (0-2); Eosinophils Absolute Auto 0.1 X10*3/uL (0.0-0.4); Eosinophils Percent Auto 2.3 % (0-4); Hematocrit 30.2 % (42.0-52.0); Hemoglobin 9.9 g/dl (14.0-18.0); Imm Gran Abs Auto 0.01 X10*3/uL (0.00-0.03); Imm Gran Pct Auto 0.3 % (0.0-0.4); Lymphocytes Absolute Auto 0.8 X10*3/uL (1.2-4.9); Lymphocytes Percent Auto 27.8 % (20-40); Mean Corpuscular HGB Conc 32.8 g/dl (31.0-36.0); Mean Corpuscular Hemoglobin 28.9 pg (27.0-33.0); Monocytes Absolute Auto 0.3 X10*3/uL (0.1-1.2); Monocytes Percent Auto 9.3 % (2-11); Neutrophils Absolute Auto 1.8 x10*3/uL (2.0-8.3); Neutrophils Percent Auto 59.6 % (45-73); Red Blood Count 3.43 X10*6/uL (4.60-5.80); Red Cell Distribution Width 13.8 % (11.0-16.0)
[2025-02-16 07:44] LABS: Platelet Count 29 X10*3/uL (160-400)
[2025-02-16 07:52] LABS: Alanine Aminotransferase 29 U/L (0-40); Albumin Level 2.8 g/dL (3.5-5.0); Alkaline Phosphatase 158 U/L (39-117); Anion Gap 8 (12-20); Aspartate Amino Transferase 45 U/L (5-37); Bilirubin Total 1.2 mg/dL (0.0-1.0); Blood Urea Nitrogen 14 mg/dL (9-16); Calcium 8.5 mg/dL (8.4-10.2); Carbon Dioxide 28 mmol/L (22-29); Chloride 110 mmol/L (96-108); Creatinine Clr Calc Pharmacy 108.6; Estimated Glomerular Filt Rate > 60; Glucose Random 102 mg/dL (60-115); Sodium 141 mmol/L (135-145); Total Protein 6.1 g/dL (6.5-8.0)
[2025-02-16] MEDS: Lactulose 20 GM/30 ML SOLUTION 30 GM PO (08:36)
[2025-02-16] MEDS: 0.9 % Sodium Chloride Flush 3 ML SYRINGE IVFLUSH (08:38)
[2025-02-16 09:00] LABS: Glucose, Whole Blood 169 mg/dL (60-115)
[2025-02-16 11:11] VITALS: BP 128/58; PULSE 64; RESP 18; TEMP 37.2; O2SAT 100
--- NOTE | 2025-02-16 11:39 | PM.GICN ---
History of Present Illness Data of Consult Service Date: 02/16/25 Primary Care Provider: Leta Dick MD HPI Reason for consult: cirrhosis and HE 64-year-old male with a hx of cirrhosis s/p TIPS, hx hep C, portal and spenic vein thrombosis, chornic thrombocytopenia and HTN, who I am seeing for assessment for HE and cirrhosis. He initially presented dizziness, confusion, and a syncopal episode. Imaging was neg for any acute head injury. He now feels totally normal, after receiving lactulose and rifaximin. He denies drug use, alcohol, and abdominal pain, fever, diarrhea or melena, rectal bleeding. He is vague on compliance with lactulose He eants to go home and feels he is normal now. 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 [facility] Past Medical History Medical History (Updated 02/17/25 @ 15:26 by Benji Alamo MD) Obesity (BMI 30.0-34.9) Cirrhosis of liver Fall Pancytopenia Hepatic encephalopathy Portal vein thrombosis Cirrhosis Splenic vein thrombosis Sepsis Cirrhosis of liver with ascites Abdominal pain Thrombocytopenia Pancytopenia Cirrhosis Hepatitis C virus infection Esophageal varices Pancytopenia Iron deficiency anemia Cirrhosis Hepatitis C HBP (high blood pressure) Family History Family History Maternal Grandmother Breast CA Uterus cancer Mother Primary lung cancer of unknown cell type Surgical History Surgical History S/P TIPS (transjugular intrahepatic portosystemic shunt) H/O left inguinal hernia repair H/O eye surgery History of esophagogastroduodenoscopy (EGD) H/O colonoscopy Social History Social History Household Members: Other Household Members Other:: [facility]ci Housing: Other Housing Other:: [facility]ci Are you a primary rn patient care to a significant other at home: No Do you presently have visiting nurse or other home services: No Unable to assess alcohol history related to: Unknown Alcohol intake: former Comment: pt refusing alarm's Patient Tobacco Use Status: Never used Tobacco Tobacco use type: Cigarette Cigarette Packs Per Day: 1 Cigarettes Per Day: 5 Years Smoked: 30 Second Hand Smoke Exposure: No Substance Use Type: Crack/Cocaine and Marijuana Advance Directives Date on File: 04/02/24 service: No Current occupational status: retired Meds Allergies Allergy/AdvReac Type Severity Reaction Status Date / Time dicyclomine [From Bentyl] Allergy Unknown Verified 02/13/25 21:47 aspirin AdvReac Severe stomach Verified 02/13/25 21:47 bleeding NSAIDS (Non-Steroidal AdvReac Severe liver Verified 02/13/25 21:47 Anti-Inflamma concerns Active Medications: Current Medications Acetaminophen (Acetaminophen 325 Mg Tablet) 650 mg PO Q6H PRN PRN Reason: Pain, Mild 1-3,fever,headache Amlodipine Besylate (Amlodipine Besylate 5 Mg Tablet) 5 mg PO DAILY [facility]; Protocol Last Admin: 02/16/25 10:11 Dose: Not Given Calcium Carbonate (Calcium Carbonate 750 Mg Tab.Chew) 750 mg PO Q4H PRN PRN Reason: Heartburn Carvedilol (Carvedilol 3.125 Mg Tablet) 3.125 mg PO BID [facility]; Protocol Last Admin: 02/16/25 10:11 Dose: Not Given Furosemide (Furosemide 40 Mg Tablet) 40 mg PO DAILY [facility]; Protocol Last Admin: 02/16/25 10:11 Dose: Not Given Lactulose (Lactulose 20 Gm/30 Ml Solution) 30 gm PO TID [facility] Last Admin: 02/16/25 08:36 Dose: 30 gm Magnesium Hydroxide (Milk Of Magnesia 30 Ml Oral.Susp) 30 ml PO DAILY PRN PRN Reason: Constipation Melatonin (Melatonin 3 Mg Tablet) 6 mg PO BEDTIME PRN PRN Reason: Insomnia Rifaximin (Rifaximin 550 Mg Tablet) 550 mg PO TID [facility] Last Admin: 02/16/25 10:11 Dose: Not Given Sodium Chloride (0.9 % Sodium Chloride Flush 3 Ml Syringe) 3 ml IVFLUSH QSHIFT [facility] Last Admin: 02/16/25 08:38 Dose: 3 ml Home Medications ?Medication ?Instructions ?Recorded ?Confirmed ?Last Taken ?Type amlodipine 5 mg tablet 5 mg PO DAILY 12/03/24 02/14/25 Unknown History furosemide 40 mg tablet 40 mg PO DAILY 12/03/24 02/14/25 Unknown History Physical Exam Vital Signs: Vital Signs: Last Vital Signs Temp 99.0 F 02/16/25 11:11 Pulse 64 02/16/25 11:11 Resp 18 02/16/25 11:11 BP 128/58 L 02/16/25 11:11 Pulse Ox 100 02/16/25 11:11 O2 Del Method Room Air 02/16/25 11:11 BMI result Body Mass Index 31.2 EXAM: GENERAL: The patient is well developed and nontoxic. VITAL SIGNS:see workflow HEENT: Nonicteric sclerae, PERRLA, EOMI. Oropharynx clear. Moist mucous membranes. Conjunctivae appear well perfused. No thyroid mass. CHEST: Chest wall is nontender. HEART: Regular rate and rhythm without murmurs. LUNGS: Clear to auscultation bilaterally. ABDOMEN: Soft, positive bowel sounds, nontender, no organomegaly.no flank tenderness SKIN: No rash, no excessive bruising, petechiae, or purpura. NEUROLOGIC: Cranial nerves II-XII intact without motor/sensory deficit. right eye enucleated Psych: normal affect Results Labs 02/16/25 06:26 02/16/25 06:25 Labs: Short CBC 02/16/25 Range/Units 06:26 WBC 3.0 L (4.8-10.8) X10*3/uL Hgb 9.9 L (14.0-18.0) g/dl Hct 30.2 L (42.0-52.0) % Plt Count 29 L (160-400) X10*3/uL BMP 02/16/25 06:25 Sodium 141 Potassium 5.0 Chloride 110 H Carbon Dioxide 28 BUN 14 Creatinine 0.82 Calcium 8.5 Liver Function 02/16/25 Range/Units 06: Total Bilirubin 1.2 H (0.0-1.0) mg/dL AST 45 H (5-37) U/L ALT 29 (0-40) U/L Alkaline Phosphatase 158 H (39-117) U/L Albumin 2.8 L (3.5-5.0) g/dL Assessment and Plan (1) Hepatic encephalopathy: Status: Acute Plan 1/ HE 2/2 to suspected non compliance with lactulose. He is at higher risk of this due to his hx of TIPS. No evidence of active infection. GI bleed or lyte disturbance. He is back to normal now with treatment. NH3 is still high, but clinically he is improved. PLAN: 1/ Optimize lytes, Mag, K, Phos, Ca 2/ avoid sedating drugs 3/ encourage compliance with lactulose, ok to add rifaximin 4/ no evidence of infection at this time, 5/ if sx worsen and none of the usual triggers identified then doppler to r/o TIPS occlusion o/p f/u Dr Antonio Procedures Date of Service Date of Service: 02/17/25
[2025-02-16 13:19] LABS: Ammonia 96 umol/L (13-55)
--- NOTE | 2025-02-16 13:41 | PM.DS ---
DS: Providers Provider Date of Service: 02/16/25 Date of admission: 02/14/25 10:14 Date of discharge: 02/16/25 Primary care physician: Leta Dick MD Consults: 02/16/25 08:05 Consult to Gastroenterology Routine Consulting Provider: [facility] Reason for consultation: cirrhosis, hepatic encephalopathy, fobt+ DS: Diagnosis Discharge Diagnosis (1) Acute hepatic encephalopathy: Status: Acute (2) Cirrhosis of liver: Status: Acute DS: Summary Hospital Course Hospital Course: From the history and physical by the admitting hospitalist, JOY Green, 02/13/25: Patient is a 64-year-old male with a past medical history significant for cirrhosis s/p TIPS, hx hep C, portal and spenic vein thrombosis, chornic thrombocytopenia and HTN, who presented to the ED due to dizziness, confusion, and a syncopal episode. The patient's family members present but did not witnessed the episode however reports that she was told that he was altered and agitated and complained of a headache and dizziness and lower dose of to a ground. It is unclear if he had a head strike or full syncopal episode. The patient is unable to give any history at this time. EMS called a stroke alert and head CT/CTA both were negative. His ammonia level was elevated at 168. He was treated with 1 dose p.o. lactulose and has yet to have a bowel movement any change in symptoms. He did need to resume midazolam for his imaging as well as agitation. Currently the patient has psychomotor slowing. 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 Apparently he had not been taking his lactulose. His mental status improved with starting lactulose and rifaximin. He was not orthostatic. No further episodes of syncope. Pancytopenia is close to baseline. Ammonia levels will fluctuate due to TIPS so are not reliable markers of encephalopathy. But on the day of discharge, he was ambulatory and had no disorientation or imbalance, and no asterixis could be elicited. He was discharged home with prescriptions for lactulose and rifaximin and advised to follow up with Primary Care and with [facility] for cirrhosis care. Time Attestation Discharge Coordination Time (in mins): 45 Quality: Safe Use of Opioids Does Pt have an Active Cancer Diagnosis on the Problem List?: No Quality: Stroke Does the patient have a stroke diagnosis?: No Physical Exam Vital Signs: Vital Signs: Last Vital Signs Temp 99.0 F 02/16/25 11:11 Pulse 64 02/16/25 11:11 Resp 18 02/16/25 11:11 BP 128/58 L 02/16/25 11:11 Pulse Ox 100 02/16/25 11:11 O2 Del Method Room Air 02/16/25 11:11 BMI result Body Mass Index 31.2 Gen: in no acute distress HEENT: sclera anicteric, moist mucus membranes Neck: supple Lungs: clear to auscultation bilaterally Heart: regular rate and rhythm, no murmurs Abd: soft, non-tender, non-distended Ext: no edema Skin: warm/well-perfused Neuro: alert and oriented x3, no focal findings, no asterixis Psych: appropriate affect DS: Data Data Completed and Pending Completed studies during hospitalization [Text1]: Laboratory Results WBC 3.0 X10*3/uL (4.8-10.8) L 02/16/25 06:26 RBC 3.43 X10*6/uL (4.60-5.80) L 02/16/25 06:26 Hgb 9.9 g/dl (14.0-18.0) L 02/16/25 06:26 Hct 30.2 % (42.0-52.0) L 02/16/25 06:26 MCV 88.0 fL (80.0-98.0) 02/16/25 06:26 MCH 28.9 pg (27.0-33.0) 02/16/25 06:26 MCHC 32.8 g/dl (31.0-36.0) 02/16/25 06:26 RDW 13.8 % (11.0-16.0) 02/16/25 06:26 Plt Count 29 X10*3/uL (160-400) L 02/16/25 06:26 MPV Not Reportable 02/16/25 06:26 Immature Gran % (Auto) 0.3 % (0.0-0.4) 02/16/25 06:26 Neut % (Auto) 59.6 % (45-73) 02/16/25 06:26 Lymph % (Auto) 27.8 % (20-40) 02/16/25 06:26 [place] % (Auto) 9.3 % (2-11) 02/16/25 06:26 Eos % (Auto) 2.3 % (0-4) 02/16/25 06:26 Baso % (Auto) 0.7 % (0-2) 02/16/25 06:26 Lymph # (Auto) 0.8 X10*3/uL (1.2-4.9) L 02/16/25 06:26 [place] # (Auto) 0.3 X10*3/uL (0.1-1.2) 02/16/25 06:26 Eos # (Auto) 0.1 X10*3/uL (0.0-0.4) 02/16/25 06:26 Baso # (Auto) 0.0 X10*3/uL (0.0-0.2) 02/16/25 06:26 Abs Immat Gran (auto) 0.01 X10*3/uL (0.00-0.03) 02/16/25 06:26 Absolute Neuts (auto) 1.8 x10*3/uL (2.0-8.3) L 02/16/25 06:26 Absolute Nucleated RBC 0.000 X10*3/uL (0.0-0.012) 02/16/25 06: Nucleated RBC % (auto) 0.0 /100WBC (0.0-0.2) 02/16/25 06:26 Smear Tech's Comments VERIFIED 02/14/25 04:05 PT 17.6 SEC (10.9-12.4) H 02/15/25 07:38 Whole Blood PT 13.5 sec (11.1-13.5) 02/13/25 21:44 INR 1.5 (0.9-1.1) H 02/15/25 07:38 Whole Blood INR 1.1 (0.9-1.1) 02/13/25 21:44 APTT 35.6 SEC (26.0-36.8) 02/13/25 22:26 Sodium 141 mmol/L (135-145) 02/16/25 06:25 Potassium 5.0 mmol/L (3.3-5.1) 02/16/25 06:25 Chloride 110 mmol/L (96-108) H 02/16/25 06:25 Carbon Dioxide 28 mmol/L (22-29) 02/16/25 06:25 Anion Gap 8 (12-20) L 02/16/25 06:25 BUN 14 mg/dL (9-16) 02/16/25 06:25 Creatinine 0.82 mg/dL (0.5-1.4) 02/16/25 06:25 Estim Creat Clear Calc 108.6 02/16/25 06:25 Estimated GFR > 60 02/16/25 06:25 POC Glucose 169 mg/dL (60-115) H 02/13/25 21:35 Random Glucose 102 mg/dL (60-115) 02/16/25 06:25 Calcium 8.5 mg/dL (8.4-10.2) 02/16/25 06:25 Magnesium 1.7 mg/dL (1.6-2.6) 02/15/25 07:38 Total Bilirubin 1.2 mg/dL (0.0-1.0) H 02/16/25 06:25 Direct Bilirubin 0.6 mg/dL (0.0-0.5) H 02/13/25 22:26 AST 45 U/L (5-37) H 02/16/25 06:25 ALT 29 U/L (0-40) 02/16/25 06:25 Alkaline Phosphatase 158 U/L (39-117) H 02/16/25 06:25 Ammonia 96 umol/L (13-55) H 02/16/25 13:03 Troponin I High Sens 34.9 ng/L (<3.5-35.0) D 02/13/25 22:26 Total Protein 6.1 g/dL (6.5-8.0) L 02/16/25 06:25 Albumin 2.8 g/dL (3.5-5.0) L 02/16/25 06:25 Triglycerides 47 mg/dL (<150) 02/13/25 22:26 Cholesterol 92 mg/dL (<200) 02/13/25 22:26 LDL Cholesterol, Calc 51 mg/dL (<100) 02/13/25 22:26 HDL Cholesterol 32 mg/dL (>40) L 02/13/25 22:26 TSH 0.97 uIU/mL (0.32-4.0) 02/13/25 22:26 Urine Color Yellow 02/14/25 04:37 Urine Appearance Clear 02/14/25 04:37 Urine pH 5.5 (5.0-9.0) 02/14/25 04:37 Ur Specific [place] >= 1.030 (1.005-1.025) H 02/14/25 04:37 Urine Protein Negative mg/dL (Neg-Trace) 02/14/25 04:37 Urine Glucose (UA) Negative mg/dL (Negative) 02/14/25 04:37 Urine Ketones Negative mg/dL (Negative) 02/14/25 04:37 Urine Blood Negative (Negative) 02/14/25 04:37 Urine Nitrite Negative (Negative) 02/14/25 04:37 Ur Leukocyte Esterase Negative (Negative) 02/14/25 04:37 Stool Occult Blood POSITIVE (NEGATIVE) 02/15/25 10:25 Urine Opiates Screen Not Detected (Not Detect) 02/14/25 04:37 Ur Buprenorphine Scrn Not Detected ng/mL (Not Detect) 02/14/25 04:37 Ur Oxycodone Screen Not Detected ng/mL (Not Detect) 02/14/25 04:37 Urine Methadone Screen Not Detected ng/mL (Not Detect) 02/14/25 04:37 Urine Fentanyl Screen Not Detected (Not Detect) 02/14/25 04:37 Ur Barbiturates Screen Not Detected (Not Detect) 02/14/25 04:37 Ur Phencyclidine Scrn Not Detected (Not Detect) 02/14/25 04:37 Ur Amphetamines Screen Not Detected (Not Detect) 02/14/25 04:37 U Benzodiazepines Scrn POSITIVE (Not Detect) H 02/14/25 04:37 Urine Cocaine Screen Not Detected (Not Detect) 02/14/25 04:37 U Marijuana (THC) Screen Not Detected (Not Detect) 02/14/25 04:37 Ethyl Alcohol < 10 mg/dL 02/13/25 22:26 Blood Type O Negative 02/15/25 07:38 Antibody Screen NEGATIVE 02/15/25 07:38 Discharge Plan Discharge Anticipated Discharge Date/Time: 02/16/25 13:39 Patient Disposition: Home, Self-Care Discharge Diagnosis: acute hepatic encephalopathy cirrhosis Referrals: [facility] [Provider Group] - 2 Weeks Leta Soto MD [Primary Care Provider] - 1 Week Discharge Medications: New lactulose 10 gram/15 mL Solution 30 g PO TID Qty: 1350 0RF Xifaxan 550 mg Tablet 550 mg PO TID Qty: 90 0RF Continued carvedilol 3.125 mg tablet 3.125 mg PO BID Qty: 60 3RF furosemide 40 mg tablet 40 mg PO DAILY amlodipine 5 mg Tablet 5 mg PO DAILY (DME) [facility] [place] See Rx Instructions .Route Qty: 1 0RF Rx Instructions: As directed Discharge Orders: Discharge Order (Routine); Ordered 02/16/25 Ordered By: Getachew Vega Diet: Low salt diet Activity on Discharge: As tolerated Stand Alone Forms: Patient Portal Discharge page Print Language: [place] Care Plan Goals: liver health Health Concerns: acute hepatic encephalopathy cirrhosis Plan of Treatment: take rifaximin 550 mg 3x a day PLUS lactulose 30 grams 3x a day or as needed to achieve 3 soft bowel movements per day follow up with [facility] for cirrhosis care Please follow up with your primary care doctor within 1 week. Return to the hospital if you experience recurrent or worsening symptoms. Assessment: See Discharge Summary.
--- NOTE | 2025-02-16 13:45 | MHC.CM.PN ---
PT TO [place] HOME TODAY WITH NO SERVICES VIA PRIVATE TRANSPORT
== END 2025-02-16 15:20 | disposition home or self-care (01) ==
LOC: HO.ED 22:44 → HO.EDOVER 23:59 → HO.IMC 02-14 19:03
PROVIDERS: Admitting Provider Physician Assistant; Emergency Provider Emergency Medicine; PCP Student in an Organized Health Care Education/Training Program; Visit Provider Family Medicine
DX: K76.82 Hepatic encephalopathy (principal); D61.818 Other pancytopenia; I47.20 Ventricular tachycardia, unspecified; K74.69 Other cirrhosis of liver; Z86.19 Personal history of other infectious and parasitic diseases; I10 Essential (primary) hypertension; E66.811 Obesity, class 1; Z71.3 Dietary counseling and surveillance; Z90.01 Acquired absence of eye; Z91.148 Patient's other noncompliance with medication regimen for other reason; Z68.31 Body mass index [BMI] 31.0-31.9, adult; Z79.899 Other long term (current) drug therapy
CPT/HCPCS: 36415; 70450; 70496; 70498; 80048; 80053; 80061; 80076; 80307; 81003; 82140; 82272; 82947; 83735; 84443; 84484; 85025; 85610; 85730; 86850; 86900; 86901; 93005; 97161; 99285; J2250; J7120; Q9967

== ENCOUNTER → 2025-02-13 21:38 | Outpatient (BNV) | payer MEDICAID, SELFPAY | PROVIDERS: Emergency Provider Emergency Medicine; PCP Student in an Organized Health Care Education/Training Program; Visit Provider Specialist | DX: R51.9 Headache, unspecified (principal) | CPT/HCPCS: 70450; 70496; 70498 ==

== ENCOUNTER → 2025-02-13 21:38 | Outpatient (BNV) | payer MEDICAID, SELFPAY | PROVIDERS: Admitting Provider Physician Assistant; Emergency Provider Emergency Medicine; PCP Student in an Organized Health Care Education/Training Program; Visit Provider Internal Medicine | DX: R94.31 Abnormal electrocardiogram [ECG] [EKG] (principal); I63.9 Cerebral infarction, unspecified | CPT/HCPCS: 93010 ==

== ENCOUNTER → 2025-02-14 09:23 | Outpatient (BNV) | payer MEDICAID, SELFPAY | PROVIDERS: Admitting Provider Physician Assistant; Emergency Provider Emergency Medicine; PCP Student in an Organized Health Care Education/Training Program; Visit Provider Internal Medicine | DX: Z13.6 Encounter for screening for cardiovascular disorders (principal) | CPT/HCPCS: 93010 ==

== ENCOUNTER → 2025-02-14 10:14 | Outpatient (BNV) | payer MEDICAID, SELFPAY | PROVIDERS: Admitting Provider Physician Assistant; Emergency Provider Emergency Medicine; PCP Student in an Organized Health Care Education/Training Program; Visit Provider Family Medicine | DX: K76.82 Hepatic encephalopathy (principal); W19.XXXA Unspecified fall, initial encounter; D61.818 Other pancytopenia; E66.811 Obesity, class 1 | CPT/HCPCS: 99223; 99232 ==

== ENCOUNTER → 2025-02-14 10:14 | Outpatient (BNV) | payer MEDICAID, SELFPAY | PROVIDERS: Admitting Provider Physician Assistant; Emergency Provider Emergency Medicine; PCP Student in an Organized Health Care Education/Training Program; Visit Provider Internal Medicine Gastroenterology | DX: K76.82 Hepatic encephalopathy (principal) | CPT/HCPCS: 99223 ==

== ENCOUNTER 2025-02-26 11:44 | Observation (INO) | payer MEDICAID, SELFPAY ==
[2025-02-26] VITALS (16 sets, daily range): BP systolic 114–150; BP diastolic 37–78; PULSE 66–82; RESP 14–37; TEMP 36.5–36.8; O2SAT 98–100; BMI 32.4
--- NOTE | ~2025-02-26 | CT_ITS ---
EXAMINATION: CT HEAD WITHOUT CONTRAST (STROKE PROTOCOL) CLINICAL INFORMATION: Stroke protocol. Altered mental status. COMPARISON: 02/13/2025. TECHNIQUE: Contiguous axial imaging was performed from the skull base to vertex without intravenous administration of contrast. This CT examination was performed using dose optimization techniques as appropriate, variously including the following: *Automated exposure control *Adjustment of mA and/or kV according to patient size (this includes techniques or standardized protocols for targeted exams where dose is matched to indication/reason for exam; i.e. extremities or head) *Use of iterative reconstruction technique FINDINGS: There is no evidence of intracranial hemorrhage or extra-axial fluid collection. There is no mass effect, or edema. No CT evidence of acute territorial infarct. Ventricles, sulci, and cisterns are normal in size and configuration for patient age. No hydrocephalus. No midline shift. Negative hyperdense MCA sign. Negative insular ribbon sign. Patchy periventricular and deep white matter hypoattenuation is consistent with mild small vessel ischemic changes. Mild atheromatous calcification of the bilateral carotid siphons and V4 segments vertebral arteries bilaterally. There is ossification of the anterior falx. There is a right globe prosthesis. There has been a left lens replacement. Globes and orbital contents otherwise normal. No extracranial soft tissue abnormalities. The paranasal sinuses, mastoid air cells, and tympanic cavities are normally aerated. No suspicious bony abnormalities. There are no acute fractures evident. CT/CT head for STROKE IMPRESSION: No acute intracranial abnormality. This critical result was discussed with Dr. Wang of the [facility] at 12:11 PM, 02/26/2025. It was ascertained that the content and urgency of the report was understood at the time of direct communication. Electronically signed by: Rao Hale MD 02/26/2025 12:15 PM EDT
--- NOTE | ~2025-02-26 | CT_ITS ---
EXAMINATION: CT ANGIOGRAM HEAD AND NECK CLINICAL INFORMATION: Altered mental status, stroke protocol. COMPARISON: 02/13/2025. TECHNIQUE: CTA head and neck performed by test bolus sequences and head and neck intravenous bolus administration 70 mL of Omnipaque 350. Helical imaging was performed in the axial plane from the aortic arch to the skull vertex. The data was processed at the nanotechnology engineering technologist's workstation for generation of MIP sequences. Angled MIPs and volume rendered reformatted images were also generated at an offline 3D workstation. Stenoses are assessed in accordance with NASCET criteria unless otherwise indicated. This CT examination was performed using dose optimization techniques as appropriate, variously including the following: *Automated exposure control *Adjustment of mA and/or kV according to patient size (this includes techniques or standardized protocols for targeted exams where dose is matched to indication/reason for exam; i.e. extremities or head) *Use of iterative reconstruction technique FINDINGS: NECK CTA: -AORTIC ARCH: Normal in caliber. Mild atheromatous calcification. Three-vessel branching pattern. -GREAT VESSEL ORIGINS: Widely patent. No stenosis. -RIGHT COMMON CAROTID ARTERY: Normal in course and caliber to the level of the bifurcation. -CERVICAL RIGHT INTERNAL CAROTID ARTERY: Normal opacification without focal stenosis or occlusion. -LEFT COMMON CAROTID ARTERY: Normal in course and caliber to the level of the bifurcation. -CERVICAL LEFT INTERNAL CAROTID ARTERY: Normal opacification without focal stenosis or occlusion. -CERVICAL RIGHT VERTEBRAL ARTERY: Nondominant. Normal origin. Normal in course and caliber into the skull base. -CERVICAL LEFT VERTEBRAL ARTERY: Dominant. Normal origin. Normal in course and caliber into the skull base. OTHER, SOFT TISSUES: -No lymphadenopathy or mass. No abnormal fluid collection or soft tissue swelling. -Mild enlargement of the right thyroid lobe, without discrete nodule evident. Thyroid otherwise normal. -Imaged superior mediastinal structures normal. -Imaged lung apices are respiratory motion degraded, although there is paraseptal emphysema and lung apices are otherwise clear. -There are degenerative changes of the cervical spine. No bone lesions. CTA OF THE BRAIN: -INTRACRANIAL INTERNAL CAROTID ARTERIES: No focal stenosis or occlusion. -RIGHT ANTERIOR CEREBRAL ARTERY: Normal A1 segment.. Normal arborization of the distal segments. -LEFT ANTERIOR CEREBRAL ARTERY: Normal A1 segment.. Normal arborization of the distal segments. -ANTERIOR COMMUNICATING ARTERY: Normal. -RIGHT MIDDLE CEREBRAL ARTERY: Normal M1 segment of the MCA without focal stenosis or occlusion. Normal arborization of the distal segments. -LEFT MIDDLE CEREBRAL ARTERY: Normal M1 segment of the MCA without focal stenosis or occlusion. Normal arborization of the distal segments. -RIGHT VERTEBRAL ARTERY V4: Normal in course and caliber. -LEFT VERTEBRAL ARTERY V4: Normal in course and caliber. -BASILAR ARTERY: Normal without focal stenosis or occlusion. Normal appearance of the proximal superior cerebellar arteries. Normal basilar tip. -RIGHT POSTERIOR CEREBRAL ARTERY: The P1 segment is diminutive. origin of the FINISHER MACHINE with robust opacification of the posterior communicating artery. Normal opacification of the distal FINISHER MACHINE segments. -LEFT POSTERIOR CEREBRAL ARTERY: Normal P1 segment. Normal opacification of the distal FINISHER MACHINE segments. -POSTERIOR COMMUNICATING ARTERIES: The right as above. Left is not well seen. Normal opacification of the superior sagittal, straight, transverse, and sigmoid sinuses. No venous thrombosis. No space-occupying hemorrhage or definite evolving infarct. CT/CT angio head neck STROKE IMPRESSION: CTA NECK: 1. No evidence of major arterial stenosis, dissection, occlusion, or aneurysm. 2. Ancillary findings as discussed. CTA HEAD: 1. No evidence of major arterial stenosis, dissection, occlusion, or aneurysm. 2. No CT evidence of evolving ischemic infarct or space-occupying hemorrhage. 3. Patent major cortical and dural venous sinuses. Electronically signed by: Rao Hale MD 02/26/2025 12:29 PM EDT
--- NOTE | 2025-02-26 11:52 | ECG_ITS ---
Test Reason : STROKE Blood Pressure : */* mmHG Vent. Rate : 74 BPM Atrial Rate : 74 BPM P-R Int : 146 ms QRS Dur : 86 ms QT Int : 424 ms P-R-T Axes : 46 30 63 degrees QTcB Int : 470 ms Normal sinus rhythm Normal ECG When compared with ECG of 14-Feb-2025 09:23, No significant change was found Referred By: Jorge Wang Electronically Signed By: Slick Hoover
[2025-02-26 12:05] LABS: Prothrombin Time Whole Bld POC 16.2 sec (11.1-13.5); ~PT, ~INR - Anti Coag Clinic 1.3 (0.9-1.1)
[2025-02-26 12:14] LABS: Glucose, Whole Blood 98 mg/dL (60-115)
[2025-02-26] MEDS: iohexoL 350 MG/ML 100 ML INFUS..BTL IV (12:14)
--- NOTE | 2025-02-26 12:16 | ED.AMS ---
HPI - Altered Mental Status General Chief Complaint: Altered Mental Status Stated Complaint: S/O AMS PER EMS Time Seen by Provider: 02/26/25 11:51 Source: EMS Mode of arrival: EMS History of Present Illness HPI narrative: This is a 64 years old patient brought in by ambulance because altered mental status, patient was at the daycare he went outside to smoke a cigarette and became lethargic he was brought here as a possible stroke. Patient has a history of cirrhosis of the liver, cognitive impairment, hep C hypertension MD complaint: altered mental status Onset (ago): hour(s) (1) Timing confirmed by: other (EMS) Severity: moderate Associated symptoms: denies other symptoms Related Data Home Medications ?Medication ?Instructions ?Recorded ?Confirmed amlodipine 5 mg tablet 5 mg PO DAILY 12/03/24 02/14/25 furosemide 40 mg tablet 40 mg PO DAILY 12/03/24 02/14/25 clotrimazole 1 % topical cream appl topical BID 02/26/25 Previous Rx's ?Medication ?Instructions ?Recorded carvedilol 3.125 mg tablet 3.125 mg PO BID #60 tabs 11/24/24 walker #1 ea 02/08/25 lactulose 10 gram/15 mL oral 30 g (45 mL) PO TID #1,350 mL 02/16/25 solution rifaximin 550 mg tablet (Xifaxan) 550 mg PO TID #90 tabs 02/16/25 Allergies Allergy/AdvReac Type Severity Reaction Status Date / Time dicyclomine (From Bentyl) Allergy Unknown Verified 02/26/25 12:01 aspirin AdvReac Severe stomach Verified 02/13/25 21:47 bleeding NSAIDS (Non-Steroidal AdvReac Severe liver Verified 02/13/25 21:47 Anti-Inflamma concerns Review of Systems Review of Systems: Yes Unobtainable due to mental condition [facility] Past Medical History Medical History Obesity (BMI 30.0-34.9) Cirrhosis of liver Fall Pancytopenia Hepatic encephalopathy Portal vein thrombosis Cirrhosis Splenic vein thrombosis Sepsis Cirrhosis of liver with ascites Abdominal pain Thrombocytopenia Pancytopenia Cirrhosis Hepatitis C virus infection Esophageal varices Pancytopenia Iron deficiency anemia Cirrhosis Hepatitis C HBP (high blood pressure) Surgical History S/P TIPS (transjugular intrahepatic portosystemic shunt) H/O left inguinal hernia repair H/O eye surgery History of esophagogastroduodenoscopy (EGD) H/O colonoscopy Family History Family History Maternal Grandmother Breast CA Uterus cancer Mother Primary lung cancer of unknown cell type Social History Social History Household Members: Other Household Members Other:: senior care Housing: Other Housing Other:: senior care Are you a primary wound care physician to a significant other at home: No Do you presently have visiting nurse or other home services: No Unable to assess alcohol history related to: Unknown Alcohol intake: former Comment: pt refusing alarm's Patient Tobacco Use Status: Never used Tobacco Tobacco use type: Cigarette Cigarette Packs Per Day: 1 Cigarettes Per Day: 5 Years Smoked: 30 Smoked in Last 30 Days: Yes Second Hand Smoke Exposure: No Substance Use Type: Crack/Cocaine and Marijuana Advance Directives: Yes Advance Directives on File: Yes Advance Directives Date on File: 04/02/24 service: No Current occupational status: retired Physical Exam ED Vital Signs: Vital Signs - 24 hr 02/26/25 11:59 02/26/25 12:21 02/26/25 13:12 Temperature 98.0 F Pulse Rate 79 71 66 Respiratory Rate 18 22 H 18 Blood Pressure 114/42 L 124/50 L 130/46 L Pulse Oximetry 100 100 100 Oxygen Delivery Method Room Air Room Air Room Air BMI result Body Mass Index 32.4 At this time he looks well not toxic appearing follow command Const General: cooperative Nutritional Appearance: average body habitus [facility] Head: Yes normal to inspection 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 Neck Neck: Yes normal visual inspection Chest Chest palpation & inspection: normal inspection of the chest Resp Effort & Inspection: normal respiratory effort Auscultation: clear to auscultation bilaterally Cardio Jugular venous distension: no JVD Rate: regular rate Rhythm: regular rhythm GI Inspection: Yes normal to inspection Palpation (GI): Soft to palpation Auscultation: normal bowel sounds Skin General skin exam: no rashes or lesions noted Neuro Other: Awake alert no focal at this time Cranial nerves: Yes CN's II-XII intact bilaterally Motor exam (neuro): 5/5 motor strength present throughout Course Reevaluation(s) Reevaluation #1: more awake at this time imaging negative will admit for OBS Medications Administered Generic Name Dose Route Start Last Admin Trade Name Freq PRN Reason Stop Dose Admin Sodium Chloride 3 ml 02/26/25 16:00 02/26/25 16:14 0.9 % Sodium Chloride Flush 3 Ml Syringe IVFLUSH 3 ml QSHIFT LALI Administration Discontinued Medications Generic Name Dose Route Start Last Admin Trade Name Freq PRN Reason Stop Dose Admin Iohexol 100 ml 02/26/25 12:14 02/26/25 12:14 Iohexol 350 Mg/Ml 100 Ml Infus..Btl IV 02/26/25 12:15 70 ml ONCE ONE Administration Lactulose 30 gm 02/26/25 13:14 02/26/25 13:25 Lactulose 20 Gm/30 Ml Solution PO 02/26/25 13:15 30 gm ONCE ONE Administration Medical Decision Making Medical Decision Making [facility] Narrative: Patient presented with an episode of altered mental status broad differential diagnosis including TIA/hepatic encephalopathy/head bleed we will do blood work CT and reassess Differential Diagnosis Differential Diagnoses: The differential diagnosis associated with the presentation includes As above hepatic encephalopathy/hypoglycemia/stroke/head bleed Admission/Observation Consideration of admission/observation: Escalation of care including admission/observation considered Lab Data [facility] Lab Attestation statement: I reviewed the patient's lab results. 02/26/25 12:26 02/26/25 12:26 Labs: Lab Results 02/26/25 02/26/25 02/26/25 Range/Units 11:59 12:08 12:26 WBC 1.1 L (4.8-10.8) X10*3/uL RBC 2.83 L (4.60-5.80) X10*6/uL Hgb 8.3 L (14.0-18.0) g/dl Hct 24.8 L (42.0-52.0) % MCV 87.6 (80.0-98.0) fL MCH 29.3 (27.0-33.0) pg MCHC 33.5 (31.0-36.0) g/dl RDW 14.2 (11.0-16.0) % Plt Count 17 L* (160-400) X10*3/uL MPV Not Reportable Immature Gran % (Auto) 0.0 (0.0-0.4) % Neut % (Auto) 59.3 (45-73) % Lymph % (Auto) 28.3 (20-40) % [place] % (Auto) 11.5 H (2-11) % Eos % (Auto) 0.9 (0-4) % Baso % (Auto) 0.0 (0-2) % Lymph # (Auto) 0.3 L (1.2-4.9) X10*3/uL [place] # (Auto) 0.1 (0.1-1.2) X10*3/uL Eos # (Auto) 0.0 (0.0-0.4) X10*3/uL Baso # (Auto) 0.0 (0.0-0.2) X10*3/uL Abs Immat Gran (auto) 0.00 (0.00-0.03) X10*3/uL Absolute Neuts (auto) 0.7 L (2.0-8.3) x10*3/uL Absolute Nucleated RBC 0.000 (0.0-0.012) X10*3/uL Nucleated RBC % (auto) 0.0 (0.0-0.2) /100WBC Smear Tech's Comments VERIFIED Whole Blood PT 16.2 H (11.1-13.5) sec Whole Blood INR 1.3 H (0.9-1.1) Sodium 143 (135-145) mmol/L Potassium 4.3 (3.3-5.1) mmol/L Chloride 115 H (96-108) mmol/L Carbon Dioxide 25 (22-29) mmol/L Anion Gap 7 L (12-20) BUN 12 (9-16) mg/dL Creatinine 0.70 (0.5-1.4) mg/dL Estim Creat Clear Calc 117.9 Estimated GFR > 60 POC Glucose 98 (60-115) mg/dL Random Glucose 89 (60-115) mg/dL Calcium 8.2 L (8.4-10.2) mg/dL Total Bilirubin 1.2 H (0.0-1.0) mg/dL AST 50 H (5-37) U/L ALT 32 (0-40) U/L Alkaline Phosphatase 120 H (39-117) U/L Ammonia 116 H (13-55) umol/L Troponin I High Sens 17.9 (<3.5-35.0) ng/L Total Protein 5.5 L (6.5-8.0) g/dL Albumin 2.6 L (3.5-5.0) g/dL Independent Interpretation I performed an independent interpretation of an: EKG Interpretation: EKG was reviewed interpreted by me as normal sinus rhythm rate [address]-T changes normal EKG External Record Review External record reviewed: Inpatient record Critical Care Time Critical Care Time Critical Care Time: Yes Total Critical Care Time: 90 Attestation: ALTERED MENTAL STATUS/ELEVATED AMMONIA/PANCYTOPENIA Discharge Plan Discharge Clinical Impression: Hyperammonemia, Pancytopenia Altered mental status Qualifiers: Altered mental status type: unspecified Qualified Code(s): R41.82 - Altered mental status, unspecified Patient Disposition: Admitted As Inpatient
[2025-02-26 12:34] LABS: Eosinophils Percent Auto 0.9 % (0-4); Hematocrit 24.8 % (42.0-52.0); Hemoglobin 8.3 g/dl (14.0-18.0); Lymphocytes Absolute Auto 0.3 X10*3/uL (1.2-4.9); Lymphocytes Percent Auto 28.3 % (20-40); MANUAL DIFF FLAG SCAN; Mean Corpuscular HGB Conc 33.5 g/dl (31.0-36.0); Mean Corpuscular Hemoglobin 29.3 pg (27.0-33.0); Mean Corpuscular Volume 87.6 fL (80.0-98.0); Monocytes Absolute Auto 0.1 X10*3/uL (0.1-1.2); Monocytes Percent Auto 11.5 % (2-11); Neutrophils Absolute Auto 0.7 x10*3/uL (2.0-8.3); Neutrophils Percent Auto 59.3 % (45-73); Red Blood Count 2.83 X10*6/uL (4.60-5.80); Red Cell Distribution Width 14.2 % (11.0-16.0); SCAN SMEAR FLAG 1
[2025-02-26 12:36] LABS: White Blood Count 1.1 X10*3/uL (4.8-10.8)
[2025-02-26 12:39] LABS: Ammonia 116 umol/L (13-55); Platelet Count 17 X10*3/uL (160-400)
[2025-02-26 12:46] LABS: Alanine Aminotransferase 32 U/L (0-40); Albumin Level 2.6 g/dL (3.5-5.0); Alkaline Phosphatase 120 U/L (39-117); Anion Gap 7 (12-20); Aspartate Amino Transferase 50 U/L (5-37); Bilirubin Total 1.2 mg/dL (0.0-1.0); Blood Urea Nitrogen 12 mg/dL (9-16); Calcium 8.2 mg/dL (8.4-10.2); Carbon Dioxide 25 mmol/L (22-29); Chloride 115 mmol/L (96-108); Creatinine Clr Calc Pharmacy 117.9; Estimated Glomerular Filt Rate > 60; Glucose Random 89 mg/dL (60-115); Potassium 4.3 mmol/L (3.3-5.1); Sodium 143 mmol/L (135-145); Total Protein 5.5 g/dL (6.5-8.0)
[2025-02-26 12:53] LABS: Troponin-I High Sensitivity 17.9 ng/L (<3.5-35.0)
[2025-02-26 12:56] LABS: SLIDE REVIEW VERIFIED
[2025-02-26] MEDS: Lactulose 20 GM/30 ML SOLUTION 30 GM PO ×2 (13:25→21:47)
[2025-02-26 14:25] LABS: Appearance Urine Clear; Color Urine Yellow; Glucose Urine UA Negative (Negative); Leukocyte Esterase Urine Negative (Negative); Nitrite Urine Negative (Negative); PH 7.5 (5.0-9.0); Specific Gravity - Urine >= 1.030 (1.005-1.025); Urine Blood Negative (Negative); Urine Ketones Negative (Negative); Urine Protein Negative (Neg-Trace)
[2025-02-26 14:27] LABS: Bacteria Urine None Seen (None Seen); Hyaline Casts Urine 0-2 /LPF (0-2); RBC Urine 0-2 /HPF (0-2); Squamous Epithelial Cell Urine 0-2 /HPF (0-2); WBC Urine 0-5 /HPF (0-5)
[2025-02-26 14:36] LABS: Amphetamine Screen Urine Not Detected (Not Detect); Barbiturates, Urine Not Detected (Not Detect); Benzodiazepines Screen Urine Not Detected (Not Detect); Buprenorphine Scr Not Detected (Not Detect); Cannabinoid Screen Urine Not Detected (Not Detect); Cocaine Screen Urine Not Detected (Not Detect); Fentanyl, urine Not Detected (Not Detect); Methadone Screen, Urine Not Detected (Not Detect); Opiate Screen Urine Not Detected (Not Detect); Oxycodone Screen Urine Not Detected (Not Detect); Phencyclidine Screen Urine Not Detected (Not Detect)
--- NOTE | 2025-02-26 15:29 | P.HPHOSP_ITS ---
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 History was obtained with the assistance of a pencil sorter. Patient reportedly walked outside to smoke a cigarette and then became dizzy and passed out but bystanders caught him and lowered him to the ground. No head strike. Report from emergency room states that he went out to smoke a cigarette and came back inside and was altered and minimally responsive and not answering questions. Per EMS he was minimally responsive until they tried to place an IV. In the emergency department he improved without any intervention. On arrival to the emergency department CT head/CTA were unremarkable. Ammonia level was elevated but appears to be chronically elevated, did not have asterixis on exam but was given a dose of lactulose. Electrolytes unremarkable, EKG normal sinus rhythm. Patient awake alert and currently asymptomatic. Seems to have had a similar episode on last admission earlier this month. at that time had hepatic encephalopathy, also noted to have NSVT which was asymptomatic, echocardiogram from October showed preserved ejection fraction. Patient reports good oral intake, denies any vomiting, denies any change in medications recently. He will be admitted for further management of syncopal episode. Review of Systems 2 Review of Systems: Yes all other systems are reviewed and are negative Constitutional: Constitutional: Denies chills and Denies fever(s) Cardiovascular: Cardiovascular: Denies chest pain, Denies palpitations and Denies dyspnea Respiratory: Respiratory: Denies cough and Denies dyspnea Gastrointestinal: Gastrointestinal: Denies abdominal pain Endocrine: Endocrine: Denies palpitations [facility] Medical History Obesity (BMI 30.0-34.9) Cirrhosis of liver Fall Pancytopenia Hepatic encephalopathy Portal vein thrombosis Cirrhosis Splenic vein thrombosis Sepsis Cirrhosis of liver with ascites Abdominal pain Thrombocytopenia Pancytopenia Cirrhosis Hepatitis C virus infection Esophageal varices Pancytopenia Iron deficiency anemia Cirrhosis Hepatitis C HBP (high blood pressure) Family History Maternal Grandmother Breast CA Uterus cancer Mother Primary lung cancer of unknown cell type Surgical History S/P TIPS (transjugular intrahepatic portosystemic shunt) H/O left inguinal hernia repair H/O eye surgery History of esophagogastroduodenoscopy (EGD) H/O colonoscopy Social History Household Members: Other Household Members Other:: long-term Housing: Other Housing Other:: long-term Are you a primary career portals teacher to a significant other at home: No Do you presently have visiting nurse or other home services: No Unable to assess alcohol history related to: Unknown Alcohol intake: former Comment: pt refusing alarm's Patient Tobacco Use Status: Never used Tobacco Tobacco use type: Cigarette Cigarette Packs Per Day: 1 Cigarettes Per Day: 5 Years Smoked: 30 Smoked in Last 30 Days: Yes Second Hand Smoke Exposure: No Substance Use Type: Crack/Cocaine and Marijuana Advance Directives: Yes Advance Directives on File: Yes Advance Directives Date on File: 04/02/24 service: No Current occupational status: retired [employer] Allergies Allergy/AdvReac Type Severity Reaction Status Date / Time dicyclomine (From Bentyl) Allergy Unknown Verified 02/26/25 12:01 aspirin AdvReac Severe stomach Verified 02/13/25 21:47 bleeding NSAIDS (Non-Steroidal AdvReac Severe liver Verified 02/13/25 21:47 Anti-Inflamma concerns Active Medications: Current Medications Acetaminophen (Acetaminophen 325 Mg Tablet) 650 mg PO Q6H PRN PRN Reason: Pain, Mild 1-3,fever,headache Calcium Carbonate (Calcium Carbonate 750 Mg Tab.Chew) 750 mg PO Q4H PRN PRN Reason: Heartburn Magnesium Hydroxide (Milk Of Magnesia 30 Ml Oral.Susp) 30 ml PO DAILY PRN PRN Reason: Constipation Melatonin (Melatonin 3 Mg Tablet) 6 mg PO BEDTIME PRN PRN Reason: Insomnia Sodium Chloride (0.9 % Sodium Chloride Flush 3 Ml Syringe) 3 ml [facility]USH [facility] Home Medications ?Medication ?Instructions ?Recorded ?Confirmed ?Last Taken ?Type amlodipine 5 mg tablet 5 mg PO DAILY 12/03/2402/26 Unknown History furosemide 40 mg tablet 40 mg PO DAILY 12/03/2402/08 Unknown History clotrimazole 1 % topical cream 1 appl topical BID 02/0802/26/25 Unknown History Physical Exam 2 Vital Signs and Narrative: Vital Signs: Last Vital Signs Temp 98.0 F 02/26/25 11:59 Pulse 66 02/26/25 13:12 Resp 18 02/26/25 13:12 BP 130/46 L 02/26/25 13:12 Pulse Ox 100 02/26/25 13:12 O2 Del Method Room Air 02/26/25 13:12 BMI result Body Mass Index 32.4 Const: General: cooperative, comfortable, no acute distress, alert and awake Nutritional Appearance: overweight Eyes: Other: right eye enucleated Resp: Effort & Inspection: normal respiratory effort, able to speak in complete sentences, no respiratory distress and no use of accessory muscles Cardio: Rate: regular rate GI: Inspection: No distended Palpation (GI): Soft to palpation and nontender Neuro: Other: grossly nonfocal General: moves all extremities and CN's II-XI intact bilaterally Extrem: Other: b/l nonpitting edema Results Labs 02/26/25 12:26 02/26/25 12:26 Labs: Laboratory Results - last 24 hr 02/26/25 02/26/25 02/26/25 11:59 12:08 12:26 MCV 87.6 MCH 29.3 MCHC 33.5 RDW 14.2 Plt Count 17 L* MPV Not Reportable Immature Gran % (Auto) 0.0 Neut % (Auto) 59.3 Lymph % (Auto) 28.3 [place] % (Auto) 11.5 H Eos % (Auto) 0.9 Baso % (Auto) 0.0 Lymph # (Auto) 0.3 L [place] # (Auto) 0.1 Eos # (Auto) 0.0 Baso # (Auto) 0.0 Abs Immat Gran (auto) 0.00 Absolute Neuts (auto) 0.7 L Absolute Nucleated RBC 0.000 Nucleated RBC % (auto) 0.0 Smear Tech's Comments VERIFIED Whole Blood PT 16.2 H Whole Blood INR 1.3 H Anion Gap 7 L Estim Creat Clear Calc 117.9 Estimated GFR > 60 POC Glucose 98 Random Glucose 89 Calcium 8.2 L Total Bilirubin 1.2 H AST 50 H ALT 32 Alkaline Phosphatase 120 H Ammonia 116 H Troponin I High Sens 17.9 Total Protein 5.5 L Albumin 2.6 L Urine Color Urine Appearance Urine pH Ur Specific [place] Urine Protein Urine Glucose (UA) Urine Ketones Urine Blood Urine Nitrite Ur Leukocyte Esterase Urine RBC Urine WBC Ur Squamous Epith Cells Urine Bacteria Hyaline Casts Urine Opiates Screen Ur Buprenorphine Scrn Ur Oxycodone Screen Urine Methadone Screen Urine Fentanyl Screen Ur Barbiturates Screen Ur Phencyclidine Scrn Ur Amphetamines Screen U Benzodiazepines Scrn Urine Cocaine Screen U Marijuana (THC) Screen 02/26/25 14:17 MCV MCH MCHC RDW Plt Count MPV Immature Gran % (Auto) Neut % (Auto) Lymph % (Auto) [place] % (Auto) Eos % (Auto) Baso % (Auto) Lymph # (Auto) [place] # (Auto) Eos # (Auto) Baso # (Auto) Abs Immat Gran (auto) Absolute Neuts (auto) Absolute Nucleated RBC Nucleated RBC % (auto) Smear Tech's Comments Whole Blood PT Whole Blood INR Anion Gap Estim Creat Clear Calc Estimated GFR POC Glucose Random Glucose Calcium Total Bilirubin AST ALT Alkaline Phosphatase Ammonia Troponin I High Sens Total Protein Albumin Urine Color Yellow Urine Appearance Clear Urine pH 7.5 Ur Specific [place] >= 1.030 H Urine Protein Negative Urine Glucose (UA) Negative Urine Ketones Negative Urine Blood Negative Urine Nitrite Negative Ur Leukocyte Esterase Negative Urine RBC 0-2 Urine WBC 0-5 Ur Squamous Epith Cells 0-2 Urine Bacteria None Seen Hyaline Casts 0-2 Urine Opiates Screen Not Detected Ur Buprenorphine Scrn Not Detected Ur Oxycodone Screen Not Detected Urine Methadone Screen Not Detected Urine Fentanyl Screen Not Detected Ur Barbiturates Screen Not Detected Ur Phencyclidine Scrn Not Detected Ur Amphetamines Screen Not Detected U Benzodiazepines Scrn Not Detected Urine Cocaine Screen Not Detected U Marijuana (THC) Screen Not Detected Imaging Radiologist's Impressions: Impressions Head CT 02/26/25 10:55 IMPRESSION: No acute intracranial abnormality. This critical result was discussed with Dr. Wang of the [facility] at 12:11 PM, 02/26/2025. It was ascertained that the content and urgency of the report was understood at the time of direct communication. Electronically signed by: Rao Hale MD 02/26/2025 12:15 PM EDT Head/Neck CTA 02/26/25 11:59 IMPRESSION: CTA NECK: 1. No evidence of major arterial stenosis, dissection, occlusion, or aneurysm. 2. Ancillary findings as discussed. CTA HEAD: 1. No evidence of major arterial stenosis, dissection, occlusion, or aneurysm. 2. No CT evidence of evolving ischemic infarct or space-occupying hemorrhage. 3. Patent major cortical and dural venous sinuses. Electronically signed by: Rao Hale MD 02/26/2025 12:29 PM EDT RP Workstation: [id number] Assessment and Plan (1) Thrombocytopenia: Status: Chronic (2) Pancytopenia: Status: Acute (3) Hyperammonemia: Status: Acute Plan This is a 64-year-old Indian-speaking male with history of hepatitis-C virus cirrhosis complicated by portal and splenic vein thrombosis status post tips with chronic pancytopenia, hepatic encephalopathy and hypertension who presented after episode of unresponsiveness versus syncopal event Syncope/unresponsive episode resolved without intervention upon review of chart pt has had multiple episodes of admission for dizziness/syncope no asterixis on exam/no evidence of acute hepatic encephalopathy head ct and cta head/neck unremarkable Monitor telemetry, rule out arrhythmia as history of NSVT on last admission Last echocardiogram from October shows preserved EF - defer to Cardiology to repeat echo Cardiology consultation due to recurrent episode of syncope No witnessed seizure activity or loss of bladder or bowel control check orthostatic blood pressure PT evaluation Pancytopenia due to cirrhosis will transfuse 1 unit of platelets No active bleeding follow CBC Liver cirrhosis Continue baseline dose of lactulose, rifaximin Hypertension Continue Coreg, Norvasc Obesity Weight loss encouraged DVT prophylaxis-mechanical devices, avoid chemoprophylaxis due to severe thrombocytopenia Quality Stroke Does the patient have a stroke diagnosis?: No VTE Prior VTE?: No VTE Risk Level:: Medical - moderate - high VTE Device Contraindication: N/A - Device Ordered VTE Drug Contraindication: Treatment Not Indicated
[2025-02-26] MEDS: 0.9 % Sodium Chloride Flush 3 ML SYRINGE IVFLUSH (16:14)
--- NOTE | 2025-02-26 18:20 | PHA.MEDREC ---
Addendum entered by Nora Dean RPh 02/26/25 18:34: [facility] reviewed Original Note: Pharmacy Consult ? Medication Reconciliation Pharmacy has completed the medication reconciliation. patient is a poor historian. Utilized claims and discharge packet from 02/16/25 to confirm med list.
[2025-02-26 18:41] LABS: Glucose, Whole Blood 96 mg/dL (60-115)
[2025-02-26] MEDS: carvediloL 3.125 MG TABLET PO (21:48)
[2025-02-26] MEDS: rifAXIMin 550 MG TABLET PO (21:48)
[2025-02-27] MEDS: 0.9 % Sodium Chloride Flush 3 ML SYRINGE IVFLUSH ×2 (01:20→09:26)
[2025-02-27 02:01] VITALS: BP 119/47; PULSE 67; RESP 16; TEMP 36.7; O2SAT 98
[2025-02-27 06:00] VITALS: BP 112/49; PULSE 63; RESP 15; TEMP 36.4; O2SAT 97
[2025-02-27 07:11] LABS: Hematocrit 26.6 % (42.0-52.0); Hemoglobin 9.1 g/dl (14.0-18.0); Mean Corpuscular HGB Conc 34.2 g/dl (31.0-36.0); Mean Corpuscular Hemoglobin 29.1 pg (27.0-33.0); Mean Platelet Volume 11.7 fL (9.4-12.4); Red Blood Count 3.13 X10*6/uL (4.60-5.80); Red Cell Distribution Width 14.1 % (11.0-16.0)
[2025-02-27 07:12] LABS: Platelet Count 25 X10*3/uL (160-400); White Blood Count 1.4 X10*3/uL (4.8-10.8)
[2025-02-27 07:18] VITALS: BP 112/49; PULSE 63; O2SAT 97
[2025-02-27 08:40] VITALS: BMI 33.3
[2025-02-27 08:49] VITALS: BP 135/62; PULSE 66; RESP 18; TEMP 36.5; O2SAT 100
[2025-02-27] MEDS: rifAXIMin 550 MG TABLET PO (09:25)
[2025-02-27] MEDS: carvediloL 3.125 MG TABLET PO (09:25)
[2025-02-27] MEDS: amLODIPine Besylate 5 MG TABLET PO (09:25)
[2025-02-27] MEDS: Furosemide 40 MG TABLET PO (09:25)
[2025-02-27] MEDS: Lactulose 20 GM/30 ML SOLUTION 30 GM PO (09:26)
--- NOTE | 2025-02-27 11:25 | PC.NURSE ---
Patient refusing bed alarm and high risk protocol interventions. Educated on importance of safety measures with aerial photograph interpreter at bedside. Patient denies any dizziness with ambulation, steady gait.
--- NOTE | 2025-02-27 11:32 | MHC.CM.PN ---
Addendum entered by Alayna Falcon 02/28/25 08:46: CM WAS ABLE TO REACH SOMEONE AT [facility] TODAY ([phone]) THEY CONFIRM PT IS ACTIVE WITH THEM. THEY ARE AWARE PT WAS DISCHARGED YESTERDAY DCS FAXED TO THEM AT [phone] Addendum entered by Alayna Falcon 02/27/25 15:45: PT APPEARS TO BE ACTIVE WITH [facility], VM LEFT FOR THEM Addendum entered by Alayna Falcon 02/27/25 14:44: [facility] HAVE BOTH CONFIRMED PT IS NOT ACTIVE WITH THEM CM ATTEMPTED TO CONTACT [facility] [phone], HOWEVER THERE WAS NO ANSWER CM WILL CONTINUE TO TRY TO REACH THEM PT WILL DC HOME TODAY WITH RESUMPTION OF SERVICES Addendum entered by Alayna Falcon 02/27/25 11:42: PER ED CM NOTE FROM JANUARY, PT WAS DISCHARGED HOME WITH [facility] REFERRAL SENT TO THEM Original Note: CM MET WITH PT WITH A SPECIMEN BOSS HE REPORTS HE LIVES AT THE [address] 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 REFERRAL SENT TO AGENCIES WITH SIMILAR NAMES TO DETERMINE IF PT IS ACTIVE DCP: HOME, RESUME SERVICES RIDE VS SHUTTLE
--- NOTE | 2025-02-27 12:34 | PM.CNCAR ---
History of Present Illness History of Present Illness Date of Service: 02/27/25 Requesting physician: Ivis Louise Chief complaint: Episode of Unresponsiveness Narrative: [age] year gentleman with pancytopenia, hepatic encephalopathy, cirrhosis of liver and episodes of unresponsiveness. We have been consulted to assess him for episodes of dizziness and unresponsiveness/syncope. The patient was seen with a hoisting engine operator. He is denying any symptoms currently. He is saying that he does not have any cardiovascular issues and is unsure that why he is seeing a nuclear powerplant mechanic helper. He is saying he does not get any chest pain or shortness of breath. No dizziness or syncopal episodes previously. Unsure how good a historian he is but denying any symptoms. [facility]LY [facility] Past Medical History Medical History Obesity (BMI 30.0-34.9) Cirrhosis of liver Fall Pancytopenia Hepatic encephalopathy Portal vein thrombosis Cirrhosis Splenic vein thrombosis Sepsis Cirrhosis of liver with ascites Abdominal pain Thrombocytopenia Pancytopenia Cirrhosis Hepatitis C virus infection Esophageal varices Pancytopenia Iron deficiency anemia Cirrhosis Hepatitis C HBP (high blood pressure) Family History Family History Maternal Grandmother Breast CA Uterus cancer Mother Primary lung cancer of unknown cell type Surgical History Surgical History S/P TIPS (transjugular intrahepatic portosystemic shunt) H/O left inguinal hernia repair H/O eye surgery History of esophagogastroduodenoscopy (EGD) H/O colonoscopy Social History Social History Household Members: None Household Members Other:: penitentiary Housing: Other Housing Other:: penitentiary Are you a primary rn critical care to a significant other at home: No Do you presently have visiting nurse or other home services: Yes Unable to assess alcohol history related to: Unknown Alcohol intake: former Comment: pt refusing alarm's Patient Tobacco Use Status: Current everyday Tobacco user Tobacco use type: Cigarette Cigarette Packs Per Day: 1 Cigarettes Per Day: 4 Years Smoked: 30 Smoked in Last 30 Days: Yes Patient Interested in Nicotine Replacement: No Patient Given Instructions on How to Stop Smoking: No Second Hand Smoke Exposure: No Substance Use Type: Crack/Cocaine and Marijuana Have you been hit, kicked, punched, or otherwise hurt by someone within the past year? If so, by whom?: No Do you feel safe in your current relationship?: No Current Relationship Is there a partner from a previous relationship who is making you feel unsafe now?: No Are you made to feel afraid or neglected: No Advance Directives: Yes Advance Directives on File: Yes Advance Directives Date on File: 04/02/24 Do you have a plan to hurt others: No Plan Recently lost weight without trying: No How much weight loss: Not applicable Eating poorly because of decreased appetite: No Nutrition screen score: 0 Nutrition Risks: No Nutritional Risk Poor oral hygiene: No service: No Current occupational status: retired [employer] Allergies Allergy/AdvReac Type Severity Reaction Status Date / Time dicyclomine (From Bentyl) Allergy Unknown Verified 02/26/25 12:01 aspirin AdvReac Severe stomach Verified 02/13/25 21:47 bleeding NSAIDS (Non-Steroidal AdvReac Severe liver Verified 02/13/25 21:47 Anti-Inflamma concerns Active Medications: Current Medications Acetaminophen (Acetaminophen 325 Mg Tablet) 650 mg PO Q6H PRN PRN Reason: Pain, Mild 1-3,fever,headache Amlodipine Besylate (Amlodipine Besylate 5 Mg Tablet) 5 mg PO DAILY LALI; Protocol Last Admin: 02/27/25 09:25 Dose: 5 mg Calcium Carbonate (Calcium Carbonate 750 Mg Tab.Chew) 750 mg PO Q4H PRN PRN Reason: Heartburn Carvedilol (Carvedilol 3.125 Mg Tablet) 3.125 mg PO BID LALI; Protocol Last Admin: 02/27/25 09:25 Dose: 3.125 mg Clotrimazole (Clotrimazole 1 % Cream 15 Gm Tube) 1 appl TOPICAL BID LALI; Protocol Last Admin: 02/26/25 21:51 Dose: Not Given Furosemide (Furosemide 40 Mg Tablet) 40 mg PO DAILY LALI; Protocol Last Admin: 02/27/25 09:25 Dose: 40 mg Lactulose (Lactulose 20 Gm/30 Ml Solution) 30 gm PO TID LALI Last Admin: 02/27/25 09:26 Dose: 30 gm Magnesium Hydroxide (Milk Of Magnesia 30 Ml Oral.Susp) 30 ml PO DAILY PRN PRN Reason: Constipation Melatonin (Melatonin 3 Mg Tablet) 6 mg PO BEDTIME PRN PRN Reason: Insomnia Rifaximin (Rifaximin 550 Mg Tablet) 550 mg PO TID [facility] Last Admin: 02/27/25 09:25 Dose: 550 mg Sodium Chloride (0.9 % Sodium Chloride Flush 3 Ml Syringe) 3 ml IVFLUSH QSHIFT [facility] Last Admin: 02/27/25 09:26 Dose: 3 ml Home Medications ?Medication ?Instructions ?Recorded ?Confirmed ?Last Taken ?Type amlodipine 5 mg tablet 5 mg PO DAILY 12/03/24 02/26/25 Unknown History furosemide 40 mg tablet 40 mg PO DAILY 12/03/24 02/26/25 Unknown History clotrimazole 1 % topical cream 1 appl topical BID 02/26/25 02/26/25 Unknown History Physical Exam Vital Signs: Vital Signs: Last Vital Signs Temp 97.7 F 02/27/25 08:49 Pulse 66 02/27/25 08:49 Resp 18 02/27/25 08:49 BP 135/62 02/27/25 08:49 Pulse Ox 100 02/27/25 08:49 O2 Del Method Room Air 02/27/25 08:49 BMI result Body Mass Index 33.3 GENERAL APPEARANCE: in no acute distress, pleasant. NECK: no carotid bruit, no jugular venous distention. SKIN: no suspicious lesions, warm and dry. HEART: no murmurs, regular rate and rhythm. LUNGS: clear to auscultation bilaterally. ABDOMEN: soft, nontender. EXTREMITIES: no edema. PERIPHERAL PULSES: equal. NEUROLOGIC: No gross deficits, AAO X 3 Objective Labs and Meds 02/27/25 06:54 02/26/25 12:26 Lab results: Laboratory Results - last 24 hr 02/26/25 02/26/25 02/26/25 12:26 14:17 15:35 WBC 1.1 L RBC 2.83 L Hgb 8.3 L Hct 24.8 L MCV 87.6 MCH 29.3 MCHC 33.5 RDW 14.2 Plt Count 17 L* MPV Not Reportable Immature Gran % (Auto) 0.0 Neut % (Auto) 59.3 Lymph % (Auto) 28.3 Jennings % (Auto) 11.5 H Eos % (Auto) 0.9 Baso % (Auto) 0.0 Lymph # (Auto) 0.3 L Jennings # (Auto) 0.1 Eos # (Auto) 0.0 Baso # (Auto) 0.0 Abs Immat Gran (auto) 0.00 Absolute Neuts (auto) 0.7 L Absolute Nucleated RBC 0.000 Nucleated RBC % (auto) 0.0 Smear Tech's Comments VERIFIED Sodium 143 Potassium 4.3 Chloride 115 H Carbon Dioxide 25 Anion Gap 7 L BUN 12 Creatinine 0.70 Estim Creat Clear Calc 117.9 Estimated GFR > 60 POC Glucose Random Glucose 89 Calcium 8.2 L Total Bilirubin 1.2 H AST 50 H ALT 32 Alkaline Phosphatase 120 H Ammonia 116 H Troponin I High Sens 17.9 Total Protein 5.5 L Albumin 2.6 L Urine Color Yellow Urine Appearance Clear Urine pH 7.5 Ur Specific Alpine >= 1.030 H Urine Protein Negative Urine Glucose (UA) Negative Urine Ketones Negative Urine Blood Negative Urine Nitrite Negative Ur Leukocyte Esterase Negative Urine RBC 0-2 Urine WBC 0-5 Ur Squamous Epith Cells 0-2 Urine Bacteria None Seen Hyaline Casts 0-2 Urine Opiates Screen Not Detected Ur Buprenorphine Scrn Not Detected Ur Oxycodone Screen Not Detected Urine Methadone Screen Not Detected Urine Fentanyl Screen Not Detected Ur Barbiturates Screen Not Detected Ur Phencyclidine Scrn Not Detected Ur Amphetamines Screen Not Detected U Benzodiazepines Scrn Not Detected Urine Cocaine Screen Not Detected U Marijuana (THC) Screen Not Detected Blood Type O Negative Antibody Screen NEGATIVE 02/26/25 02/27/25 18:17 06:54 WBC 1.4 L RBC 3.13 L Hgb 9.1 L Hct 26.6 L MCV 85.0 MCH 29.1 MCHC 34.2 RDW 14.1 Plt Count 25 L D MPV 11.7 Immature Gran % (Auto) Neut % (Auto) Lymph % (Auto) Jennings % (Auto) Eos % (Auto) Baso % (Auto) Lymph # (Auto) Jennings # (Auto) Eos # (Auto) Baso # (Auto) Abs Immat Gran (auto) Absolute Neuts (auto) Absolute Nucleated RBC 0.000 Nucleated RBC % (auto) 0.0 Smear Tech's Comments Sodium Potassium Chloride Carbon Dioxide Anion Gap BUN Creatinine Estim Creat Clear Calc Estimated GFR POC Glucose 96 Random Glucose Calcium Total Bilirubin AST ALT Alkaline Phosphatase Ammonia Troponin I High Sens Total Protein Albumin Urine Color Urine Appearance Urine pH Ur Specific Alpine Urine Protein Urine Glucose (UA) Urine Ketones Urine Blood Urine Nitrite Ur Leukocyte Esterase Urine RBC Urine WBC Ur Squamous Epith Cells Urine Bacteria Hyaline Casts Urine Opiates Screen Ur Buprenorphine Scrn Ur Oxycodone Screen Urine Methadone Screen Urine Fentanyl Screen Ur Barbiturates Screen Ur Phencyclidine Scrn Ur Amphetamines Screen U Benzodiazepines Scrn Urine Cocaine Screen U Marijuana (THC) Screen Blood Type Antibody Screen Assessment and Plan (1) Altered mental status: Qualifiers: Altered mental status type: unspecified Qualified Code(s): R41.82 - Altered mental status, unspecified Status: Acute [age] year gentleman who is presenting with episode of unresponsiveness with question about syncope. The patient is denying any symptoms. He previously had workup including echocardiography which was normal. His EKGs also normal at this point. Physical examination is normal without any murmur. Overall he appears to be fairly stable. I am unsure what his presentation was due to because his altered mental status also improved without any significant intervention. Recommend doing a Holter monitor just to be sure about any arrhythmia. As mentioned the patient is denying any symptoms including syncope. Thank you for allowing me to participate in the care of your patient. Please feel free to contact me if you have any questions. Procedures Date of Service Date of Service: 02/27/25
--- NOTE | 2025-02-27 14:30 | PM.DS ---
DS: Providers Provider Date of Service: 02/27/25 Date of admission: 02/26/25 14:06 Date of discharge: 02/27/25 Primary care physician: Leta Dick MD Consults: 02/26/25 15:32 Consult to Cardiology Routine Consulting Provider: [facility] Reason for consultation: recurrent syncope h/o NSVT Has provider been notified: No Attending physician on discharge: [facility] Discharging clinician: Ivis Louise DS: Diagnosis Discharge Diagnosis (1) Thrombocytopenia: Status: Chronic (2) Pancytopenia: Status: Acute (3) Hyperammonemia: Status: Acute DS: Summary Hospital Course Hospital Course: From H&P on the day of admission This is a 64-year-old male with history of hepatitis-C cirrhosis, portal and splenic vein thrombosis status post tips with chronic thrombocytopenia who was brought to the emergency department on a stroke alert. History was obtained with the assistance of a echo technician. Patient reportedly walked outside to smoke a cigarette and then became dizzy and passed out but bystanders caught him and lowered him to the ground. No head strike. Report from emergency room states that he went out to smoke a cigarette and came back inside and was altered and minimally responsive and not answering questions. Per EMS he was minimally responsive until they tried to place an IV. In the emergency department he improved without any intervention. On arrival to the emergency department CT head/CTA were unremarkable. Ammonia level was elevated but appears to be chronically elevated, did not have asterixis on exam but was given a dose of lactulose. Electrolytes unremarkable, EKG normal sinus rhythm. Patient awake alert and currently asymptomatic. Seems to have had a similar episode on last admission earlier this month. at that time had hepatic encephalopathy, also noted to have NSVT which was asymptomatic, echocardiogram from October showed preserved ejection fraction. Patient reports good oral intake, denies any vomiting, denies any change in medications recently. He will be admitted for further management of syncopal episode. Syncope/unresponsive episode resolved without intervention no asterixis on exam/no evidence of acute hepatic encephalopathy. head ct and cta head/neck unremarkable. No adverse events on monitor. Orthostatic blood pressures negative. No witnessed seizure activity or loss of bladder or bowel control. No recurrent symptoms, able to ambulate without difficulty. Vital signs have remained stable, patient does not wish to stay in the hospital for any further workup. He was evaluated by Cardiology who recommended outpatient follow-up. For liver cirrhosis with chronic pancytopenia. Transfused with 1 unit of platelets, platelets now at baseline. Patient reports he has a follow-up appointment scheduled with Gastroenterology. Continue baseline medications. No evidence of hepatic encephalopathy. Time Attestation Discharge Coordination Time (in mins): 32 Quality: Safe Use of Opioids Does Pt have an Active Cancer Diagnosis on the Problem List?: No Quality: Stroke Does the patient have a stroke diagnosis?: No Physical Exam Vital Signs: Vital Signs: Last Vital Signs Temp 97.7 F 02/27/25 08:49 Pulse 66 02/27/25 08:49 Resp 18 02/27/25 08:49 BP 135/62 02/27/25 08:49 Pulse Ox 100 02/27/25 08:49 O2 Del Method Room Air 02/27/25 08:49 BMI result Body Mass Index 33.3 Const: General: cooperative, comfortable, no acute distress, alert and awake Nutritional Appearance: overweight Eyes: Other: right eye enucleated Resp: Effort & Inspection: normal respiratory effort, able to speak in complete sentences, no respiratory distress and no use of accessory muscles Cardio: Rate: regular rate GI: Inspection: No distended Palpation (GI): Soft to palpation and nontender Neuro: Other: grossly nonfocal General: moves all extremities and CN's II-XI intact bilaterally Extrem: Other: b/l nonpitting edema DS: Data Data Completed and Pending Completed studies during hospitalization [Text1]: Procedures Bypass Portal Vein to Hepatic Vein with Synthetic Substitute, Percutaneous Approach (10/08/24) Transfusion of Nonautologous Platelets into Peripheral Vein, Percutaneous Approach (10/08/24) Labs on day of discharge: Laboratory Results - last 24 hr 02/26/25 02/26/25 02/26/25 14:17 15:35 18:17 WBC RBC Hgb Hct MCV MCH MCHC RDW Plt Count MPV Absolute Nucleated RBC Nucleated RBC % (auto) POC Glucose 96 Urine RBC 0-2 Urine WBC 0-5 Ur Squamous Epith Cells 0-2 Urine Bacteria None Seen Hyaline Casts 0-2 Urine Opiates Screen Not Detected Ur Buprenorphine Scrn Not Detected Ur Oxycodone Screen Not Detected Urine Methadone Screen Not Detected Urine Fentanyl Screen Not Detected Ur Barbiturates Screen Not Detected Ur Phencyclidine Scrn Not Detected Ur Amphetamines Screen Not Detected U Benzodiazepines Scrn Not Detected Urine Cocaine Screen Not Detected U Marijuana (THC) Screen Not Detected Blood Type O Negative Antibody Screen NEGATIVE 02/27/25 06:54 WBC 1.4 L RBC 3.13 L Hgb 9.1 L Hct 26.6 L MCV 85.0 MCH 29.1 MCHC 34.2 RDW 14.1 Plt Count 25 L D MPV 11.7 Absolute Nucleated RBC 0.000 Nucleated RBC % (auto) 0.0 POC Glucose Urine RBC Urine WBC Ur Squamous Epith Cells Urine Bacteria Hyaline Casts Urine Opiates Screen Ur Buprenorphine Scrn Ur Oxycodone Screen Urine Methadone Screen Urine Fentanyl Screen Ur Barbiturates Screen Ur Phencyclidine Scrn Ur Amphetamines Screen U Benzodiazepines Scrn Urine Cocaine Screen U Marijuana (THC) Screen Blood Type Antibody Screen Discharge Plan Discharge Anticipated Discharge Date/Time: 02/27/25 14:33 Patient Disposition: Home, Self-Care Discharge Diagnosis: syncope Referrals: Leta Soot MD [Primary Care Provider, Internal Medicine] - 1 Week Yajaira Antonio MD [Physician, Gastroenterology] - 1 Week Slick Hoover MD [Physician, Cardiology] - 1 Week Discharge Medications: Continued carvedilol 3.125 mg tablet 3.125 mg PO BID Qty: 60 3RF furosemide 40 mg tablet 40 mg PO DAILY amlodipine 5 mg Tablet 5 mg PO DAILY lactulose 10 gram/15 mL Solution 30 g PO TID Qty: 1350 0RF Xifaxan 550 mg Tablet 550 mg PO TID Qty: 90 0RF (DME) walker Misc See Rx Instructions .Route Qty: 1 0RF Rx Instructions: As directed clotrimazole 1 % cream 1 appl topical BID Discharge Orders: Discharge Order (Routine); Ordered 02/27/25 Ordered By: Ivis Louise Activity on Discharge: As tolerated Stand Alone Forms: Patient Portal Discharge page Print Language: Portuguese Care Plan Goals: See below Health Concerns: Possible syncope Thrombocytopenia Plan of Treatment: Call to schedule outpatient follow-up with Cardiology Call to schedule follow-up appointment with GI Assessment: See discharge summary
--- NOTE | 2025-02-27 15:40 | MHC.CM.PN ---
CM arranged for a 3:30 PM LYFT; Patient is in transit to home.
== END 2025-02-27 16:06 | disposition home health service (06) ==
LOC: HO.ED 14:40 → HO.EDOVER 14:50 → HO.IMC 02-27 07:17
PROVIDERS: Admitting Provider Physician Assistant Medical; Emergency Provider Emergency Medicine; PCP Student in an Organized Health Care Education/Training Program; Visit Provider Physician Assistant Medical
DX: R55 Syncope and collapse (principal); E72.20 Disorder of urea cycle metabolism, unspecified; D61.818 Other pancytopenia; R41.82 Altered mental status, unspecified; K74.60 Unspecified cirrhosis of liver; D69.6 Thrombocytopenia, unspecified; Z79.899 Other long term (current) drug therapy; Z86.19 Personal history of other infectious and parasitic diseases
CPT/HCPCS: 36415; 36430; 70450; 70496; 70498; 80053; 80307; 81001; 82140; 82947; 84484; 85025; 85027; 85610; 86850; 86900; 86901; 93005; 97161; 99222; 99285; P9073; Q9967

== ENCOUNTER → 2025-02-26 11:51 | Outpatient (BNV) | payer MEDICAID, SELFPAY | PROVIDERS: Emergency Provider Emergency Medicine; Visit Provider Radiology Diagnostic Radiology | DX: I63.9 Cerebral infarction, unspecified (principal); R41.82 Altered mental status, unspecified | CPT/HCPCS: 70450; 70496; 70498 ==

== ENCOUNTER → 2025-02-26 14:06 | Outpatient (BNV) | payer MEDICAID, SELFPAY | PROVIDERS: Admitting Provider Physician Assistant Medical; Emergency Provider Emergency Medicine; PCP Student in an Organized Health Care Education/Training Program; Visit Provider Physician Assistant Medical | DX: D69.6 Thrombocytopenia, unspecified (principal); D61.818 Other pancytopenia; E72.20 Disorder of urea cycle metabolism, unspecified | CPT/HCPCS: 99223; 99239 ==

== ENCOUNTER → 2025-02-26 14:06 | Outpatient (BNV) | payer MEDICAID, SELFPAY | PROVIDERS: Admitting Provider Physician Assistant Medical; Emergency Provider Emergency Medicine; PCP Student in an Organized Health Care Education/Training Program; Visit Provider Internal Medicine Cardiovascular Disease | DX: R41.82 Altered mental status, unspecified (principal); I63.9 Cerebral infarction, unspecified | CPT/HCPCS: 93010; 99222 ==

== ENCOUNTER 2025-02-28 17:15 | Inpatient (IN) | payer MEDICAID, SELFPAY ==
--- NOTE | ~2025-02-28 | CT_ITS ---
CLINICAL HISTORY: altered CT head without contrast Comparison: CT/SR - CT HEAD FOR STROKE - 02/13/25 21:44 EDT Findings: Mild bilateral periventricular hypodensities are present. There is no evidence of hemorrhage, mass, mass effect, or hydrocephalus. Mucosal thickening is seen in the left maxillary sinus. Right globe prosthesis is present. There has been prior left cataract surgery. There is no acute fracture. IMPRESSION: 1. No acute intracranial findings. 2. Mild chronic microvascular ischemic disease. This document has been electronically signed by: Dipesh Storm on 02/28/2025 18:53:46
--- NOTE | ~2025-02-28 | XR_ITS ---
CLINICAL HISTORY: altered, cough 1 view chest x-ray Comparison: CR/SR - XR CHEST 1V - 01/21/25 15:32 EDT Findings: No consolidation or effusion. The heart is mildly enlarged in size. No acute fracture. IMPRESSION: Mild cardiomegaly with no acute pulmonary process. This document has been electronically signed by: Dipesh Storm on 02/28/2025 19:15:10
[2025-02-28 17:42] VITALS: BP 160/80; PULSE 88; O2SAT 96
[2025-02-28] MEDS: Midazolam HCl 5 MG/ML VIAL IM (17:45)
--- NOTE | 2025-02-28 17:45 | ECG_ITS ---
Test Reason : ALTER MENTAL Blood Pressure : */* mmHG Vent. Rate : 65 BPM Atrial Rate : 65 BPM P-R Int : 152 ms QRS Dur : 80 ms QT Int : 428 ms P-R-T Axes : 24 34 63 degrees QTcB Int : 445 ms Normal sinus rhythm Nonspecific T wave abnormality Abnormal ECG When compared with ECG of 26-Feb-2025 12:11, No significant change was found Referred By: Alyssa Mantilla Electronically Signed By: Slick Hoover
[2025-02-28 17:47] VITALS: BP 117/64; PULSE 88; RESP 20; TEMP 36.5; O2SAT 95; BMI 29.5
[2025-02-28 17:47] LABS: Glucose, Whole Blood 125 mg/dL (60-115)
--- NOTE | 2025-02-28 17:50 | ED_ITS ---
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 Per EMS[facility] who are [facility] with patient state that he appears more altered than usual. On arrival, patient appears altered, combative, attempting to get out of the bed, not redirectable, not following commands. He is awake, responsive to verbal stimuli, complains of a headache. Patient evaluated at our facility 2 days ago on 02/26/2025 for altered mentation. Was found to have an elevated ammonia level and pancytopenia and was admitted to hospitalist service for transfusion and observation. Discharged yesterday. Related Data Home Medications ?Medication ?Instructions ?Recorded ?Confirmed amlodipine 5 mg tablet 5 mg PO DAILY 12/03/2403/01 furosemide 40 mg tablet 40 mg PO DAILY 12/03/2402/09 clotrimazole 1 % topical cream 1 appl topical BID 02/0803/01/25 Previous Rx's ?Medication ?Instructions ?Recorded carvedilol 3.125 mg tablet 3.125 mg PO BID #60 tabs walker #1 ea 02/08/25 lactulose 10 gram/15 mL oral 30 g (45 mL) PO TID #1,35 0 mL 02/16/25 solution rifaximin 550 mg tablet (Xifaxan) 550 mg PO TID #90 ta bs 02/16/25 Allergies Allergy/AdvReac Type Severity Reaction Status Date / Time dicyclomine (From Bentyl) Allergy Unknown Verified 02/28/25 17:55 aspirin AdvReac Severe stomach Verified 02/28/25 17:55 bleeding NSAIDS (Non-Steroidal AdvReac Severe liver Verified 02/28/25 17:55 Anti-Inflamma concerns Review of Systems 2 Review of Systems: Yes Unobtainable due to mental status PMFSH Past Medical History Source: unable to obtain (AMS), old records reviewed and nursing notes reviewed Medical History Obesity (BMI 30.0-34.9) Cirrhosis of liver Fall Pancytopenia Hepatic encephalopathy Portal vein thrombosis Cirrhosis Splenic vein thrombosis Sepsis Cirrhosis of liver with ascites Abdominal pain Thrombocytopenia Pancytopenia Cirrhosis Hepatitis C virus infection Esophageal varices Pancytopenia Iron deficiency anemia Cirrhosis Hepatitis C HBP (high blood pressure) Surgical History S/P TIPS (transjugular intrahepatic portosystemic shunt) H/O left inguinal hernia repair H/O eye surgery History of esophagogastroduodenoscopy (EGD) H/O colonoscopy Family History Family History Maternal Grandmother Breast CA Uterus cancer Mother Primary lung cancer of unknown cell type Social History Social History Household Members: Unknown / Unable to assess Household Members Other:: detention Housing: Other Housing Other:: Hotel Are you a primary care coordination manager to a significant other at home: No Do you presently have visiting nurse or other home services: Yes ([facility]) Unable to assess alcohol history related to: Unknown Alcohol intake: former Comment: pt refusing alarm's Patient Tobacco Use Status: Current everyday Tobacco user Tobacco use type: Cigarette Cigarette Packs Per Day: 1 Cigarettes Per Day: 4 Years Smoked: 30 Smoked in Last 30 Days: Yes e-Cigarette/Vaping Use: Currently Using Patient Interested in Nicotine Replacement: No Patient Given Instructions on How to Stop Smoking: No Second Hand Smoke Exposure: No Substance Use Type: Crack/Cocaine and Marijuana Currently Displaying Signs/Symptoms of Drug Intoxication Withdrawal: No Have you been hit, kicked, punched, or otherwise hurt by someone within the past year? If so, by whom?: No Do you feel safe in your current relationship?: No Current Relationship Is there a partner from a previous relationship who is making you feel unsafe now?: No Are you made to feel afraid or neglected: No Spiritual Healthcare Practices: none Advance Directives: Yes Advance Directives Information Provided: No Advance Directives on File: Yes Advance Directives Date on File: 04/02/24 Do you have a plan to hurt others: No Plan Recently lost weight without trying: Unsure Nutrition Risks: No Nutritional Risk Poor oral hygiene: No service: No Current occupational status: retired Physical Exam ED Vital Signs: Vital Signs - 24 hr 02/28/25 17:47 Pulse Rate 88 Respiratory Rate 20 Blood Pressure 117/64 Pulse Oximetry 95 Oxygen Delivery Method Room Air BMI result Body Mass Index 29.5 vital signs stable General: altered, attempting to get OOB, pulling leads off Skin: warm, dry, intact. No rashes or lesions. Head: Normocephalic, atraumatic EENT: Hearing is intact b/l. R eye enucleated. Conjunctiva clear. Sclera is anicteric. L pupil constricted. Moist mucous membranes.? Neck: Supple without LAD Cardiac: Chest wall symmetric. RRR Lungs: Normal respiratory effort without accessory muscle use. congested cough, breath sounds diminished throughout Abdomen: Soft, non-tender, non-distended. No rebound tenderness or guarding. Positive BS x4. Back: no midline spinous or paraspinal tenderness. No step off deformity. Ext: bilateral non pitting edema Neuro: alert, responsive to verbal stimuli, intermittently answering questions, strength 5/5 Course Course Course Narrative: 1739 -- called to patient's bedside on arrival as patient not following commands, not redirectable, altered, attempting to get out of bed, not allowing staff to take POC or insert IV. 5 IM versed ordered. 1804 -- patient has chronic thrombocytopenia, history of ETOH abuse, now altered. patient brought to CT for imaging to assess for bleed. no blown pupil. 1832 -- CBC showing pancytopenia, chronic when compared to priors. Platelet count 37, appears to be around his baseline. Chemistry without acute electrolyte abnormality requiring intervention. Liver function is around baseline. Ammonia elevated to 208, concern for hepatic encephalopathy. Troponin WNL at 26.9, will repeat for delta. > CT head, CXR, UA/UDS pending > IL lactulose ordered. 1902 -- CT head w/o bleed. showing chronic microvascular ischemic disease. cxr without infiltrate or consolidation, no pleural effusion. > will reach out to hospitalist for admission. 1914 -- Spoke with hospitalist Dr. Tee - admission accepted. Medications Administered Generic Name Dose Route Start Last Admin Trade Name Freq PRN Reason Stop Dose Admin Carvedilol 3.125 mg 03/01/25 21:00 03/01/25 21:04 Carvedilol 3.125 Mg Tablet PO 3.125 mg BID LALI Administration Protocol Lactulose 20 gm 02/28/25 21:00 03/01/25 21:04 Lactulose 20 Gm/30 Ml Solution PO 20 gm TID LALI Administration Rifaximin 550 mg 03/01/25 15:00 03/01/25 21:04 Rifaximin 550 Mg Tablet PO 550 mg TID LALI Administration Sodium Chloride 3 ml 03/01/25 00:00 03/01/25 21:04 0.9 % Sodium Chloride Flush 3 Ml Syringe IVFLUSH 3 ml QSHIFT LALI Administration Discontinued Medications Generic Name Dose Route Start Last Admin Trade Name Freq PRN Reason Stop Dose Admin Lactated Ringer's 1,000 mls @ 50 mls/hr 02/28/25 19:15 03/01/25 16:22 Lr IVCONT Infused .Q20H LALI Infusion Lactulose 200 gm 02/28/25 18:26 03/01/25 00:04 Lactulose 320 Gm/480 Ml Solution IL 02/28/25 18:27 Not Given ONCE ONE Midazolam HCl 5 mg 02/28/25 17:41 02/28/25 17:45 Midazolam Hcl 5 Mg/Ml Vial IM 02/28/25 17:42 5 mg ONCE ONE Administration Medical Decision Making Medical Decision Making [facility] Narrative: 64 year old male with pmhx significant for hepatitis-C cirrhosis, 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 Per EMS, bystanders at the hotel who are familiar with patient state that he appears more altered than usual. Differential diagnosis includes hepatic encephalopathy, hypoglycemia, intracranial bleed, anemia, electrolyte abnormality, uti, pneumonia Plan for blood work, ekg, CT head, CXR Differential Diagnosis Differential Diagnoses: The differential diagnosis associated with the presentation includes as above. Admission/Observation Consideration of admission/observation: Escalation of care including admission/observation considered patient admitted to medicine for further management of hepatic encephalopathy Consult Healthcare Provider Management of the patient was discussed with: Hospitalist (dr tee) Lab Data MDM Lab Attestation statement: I reviewed the patient's lab results. as above. 03/02/25 06:22 03/02/25 06:22 Labs: Lab Results 02/28/25 02/28/25 02/28/25 Range/Units 17:39 18:00 18:07 WBC 2.9 L (4.8-10.8) X10*3/uL RBC 3.40 L (4.60-5.80) X10*6/uL Hgb 9.8 L (14.0-18.0) g/dl Hct 28.4 L (42.0-52.0) % MCV 83.5 (80.0-98.0) fL MCH 28.8 (27.0-33.0) pg MCHC 34.5 (31.0-36.0) g/dl RDW 14.1 (11.0-16.0) % Plt Count 37 L D (160-400) X10*3/uL MPV 12.1 (9.4-12.4) fL Immature Gran % (Auto) 0.3 (0.0-0.4) % Neut % (Auto) 63.5 (45-73) % Lymph % (Auto) 25.0 (20-40) % [place] % (Auto) 8.2 (2-11) % Eos % (Auto) 2.7 (0-4) % Baso % (Auto) 0.3 (0-2) % Lymph # (Auto) 0.7 L (1.2-4.9) X10*3/uL [place] # (Auto) 0.2 (0.1-1.2) X10*3/uL Eos # (Auto) 0.1 (0.0-0.4) X10*3/uL Baso # (Auto) 0.0 (0.0-0.2) X10*3/uL Abs Immat Gran (auto) 0.01 (0.00-0.03) X10*3/uL Absolute Neuts (auto) 1.9 L (2.0-8.3) x10*3/uL Absolute Nucleated RBC 0.000 (0.0-0.012) X10*3/uL Nucleated RBC % (auto) 0.0 (0.0-0.2) /100WBC VBG pH 7.48 H (7.32-7.43) VBG pCO2 29 mmHg VBG pO2 126 mmHg VBG HCO3 22 (22-26) mmol/L VBG O2 Saturation 100.0 % VBG Base Excess -0.2 mmol/L Sodium 138 (135-145) mmol/L Potassium 4.1 (3.3-5.1) mmol/L Chloride 113 H (96-108) mmol/L Carbon Dioxide 22 (22-29) mmol/L Anion Gap 7 L (12-20) BUN 16 (9-16) mg/dL Creatinine 0.92 (0.5-1.4) mg/dL Estim Creat Clear Calc 91.4 Estimated GFR > 60 POC Glucose 125 H (60-115) mg/dL Random Glucose 132 H (60-115) mg/dL Calcium 8.5 (8.4-10.2) mg/dL Magnesium 1.9 (1.6-2.6) mg/dL Total Bilirubin 1.6 H (0.0-1.0) mg/dL AST 49 H (5-37) U/L ALT 34 (0-40) U/L Alkaline Phosphatase 146 H (39-117) U/L Ammonia 208 H (13-55) umol/L Troponin I High Sens 26.9 D (<3.5-35.0) ng/L Total Protein 6.2 L (6.5-8.0) g/dL Albumin 2.9 L (3.5-5.0) g/dL Lipase 28 (8-78) U/L TSH 1.03 (0.32-4.0) uIU/mL Independent Interpretation I performed an independent interpretation of an: Plain X-Ray and CT Scan Interpretation: CXR without infiltrate or consolidation, no pleural effusion CT head without bleed Radiology Impression Discussion of test interpretation with radiology: I have reviewed the radiologist's reading. Radiologist Impression: Date of Service: 02/28/25 Procedure(s): XR chest 1V Accession Number(s): [id number] cc: Physician,Unknown ; Alyssa Mantilla~ CLINICAL HISTORY: altered, cough 1 view chest x-ray Comparison: CR/SR - XR CHEST 1V - 01/21/25 15:32 EDT Findings: No consolidation or effusion. The heart is mildly enlarged in size. No acute fracture. IMPRESSION: Mild cardiomegaly with no acute pulmonary process. This document has been electronically signed by: Dipesh Storm on 02/28/2025 19:15:10 Date of Service: 02/28/25 Procedure(s): CT head/brain wo IV con Accession Number(s): [id number] cc: Physician,Unknown ; Alyssa Mantilla~ Report Number: [id number]: Total DLP = 819.00 mGy-cm CLINICAL HISTORY: altered CT head without contrast Comparison: CT/SR - CT HEAD FOR STROKE - 02/13/25 21:44 EDT Findings: Mild bilateral periventricular hypodensities are present. There is no evidence of hemorrhage, mass, mass effect, or hydrocephalus. Mucosal thickening is seen in the left maxillary sinus. Right globe prosthesis is present. There has been prior left cataract surgery. There is no acute fracture. IMPRESSION: 1. No acute intracranial findings. 2. Mild chronic microvascular ischemic disease. This document has been electronically signed by: Dipesh Storm on 02/28/2025 18:53:46 Independent Historian Clinical information obtained from an independent historian. History obtained from or confirmed by: EMS External Record Review External record reviewed: Inpatient record, Office record, Outpatient record, Prior outpatient labs and Prior outpatient radiology Chronic Conditions Patient?s care impacted by: Other (Cirrhosis) Social Determinants Patient?s care significantly limited by Social Determinants of Health including: Alcoholism and drug addiction in family and Other Social Determinant of Health Critical Care Time Critical Care Time Critical Care Time: Yes Total Critical Care Time: 37 Attestation: Critical care time in the amount of 37 minutes has been provided to the patient in terms of direct patient care, frequent reevaluation, consultation with hospitalist, review and interpretation of medical data and results, and management of potentially life-threatening conditions. This is all outside of any medical procedures. Discharge Plan Discharge Clinical Impression: Acute hepatic encephalopathy Patient Disposition: Admitted As Inpatient Interventions: Admission Worksheet (ED) Last Done: 03/01/25 08:00 Discharge Date/Time: 03/01/25 08:46
[2025-02-28 18:08] LABS: Basophils Percent Auto 0.3 % (0-2); Eosinophils Absolute Auto 0.1 X10*3/uL (0.0-0.4); Eosinophils Percent Auto 2.7 % (0-4); Hematocrit 28.4 % (42.0-52.0); Hemoglobin 9.8 g/dl (14.0-18.0); Imm Gran Abs Auto 0.01 X10*3/uL (0.00-0.03); Imm Gran Pct Auto 0.3 % (0.0-0.4); Lymphocytes Absolute Auto 0.7 X10*3/uL (1.2-4.9); MANUAL DIFF FLAG NO; Mean Corpuscular HGB Conc 34.5 g/dl (31.0-36.0); Mean Corpuscular Hemoglobin 28.8 pg (27.0-33.0); Mean Corpuscular Volume 83.5 fL (80.0-98.0); Mean Platelet Volume 12.1 fL (9.4-12.4); Monocytes Absolute Auto 0.2 X10*3/uL (0.1-1.2); Monocytes Percent Auto 8.2 % (2-11); Neutrophils Absolute Auto 1.9 x10*3/uL (2.0-8.3); Neutrophils Percent Auto 63.5 % (45-73); Platelet Count 37 X10*3/uL (160-400); Red Cell Distribution Width 14.1 % (11.0-16.0); White Blood Count 2.9 X10*3/uL (4.8-10.8)
[2025-02-28 18:10] LABS: VBG Base Excess -0.2 mmol/L; VBG HCO3 22 mmol/L (22-26); VBG pCO2 29 mmHg; VBG pH 7.48 (7.32-7.43); VBG pO2 126 mmHg
[2025-02-28 18:15] LABS: Ammonia 208 umol/L (13-55)
[2025-02-28 18:22] LABS: Venous Blood Gas Refer to POC result
--- NOTE | 2025-02-28 18:27 | PC.NURSE ---
Pt continues to attempt to climb oob, pulling monitor leads off, charge nurse made aware, requesting sitter for pt safety
[2025-02-28 18:28] LABS: Alanine Aminotransferase 34 U/L (0-40); Albumin Level 2.9 g/dL (3.5-5.0); Alkaline Phosphatase 146 U/L (39-117); Anion Gap 7 (12-20); Aspartate Amino Transferase 49 U/L (5-37); Bilirubin Total 1.6 mg/dL (0.0-1.0); Blood Urea Nitrogen 16 mg/dL (9-16); Calcium 8.5 mg/dL (8.4-10.2); Carbon Dioxide 22 mmol/L (22-29); Chloride 113 mmol/L (96-108); Creatinine Clr Calc Pharmacy 91.4; Estimated Glomerular Filt Rate > 60; Glucose Random 132 mg/dL (60-115); Lipase 28 U/L (8-78); Magnesium 1.9 mg/dL (1.6-2.6); Potassium 4.1 mmol/L (3.3-5.1); Sodium 138 mmol/L (135-145); Total Protein 6.2 g/dL (6.5-8.0)
[2025-02-28 18:29] LABS: Troponin-I High Sensitivity 26.9 ng/L (<3.5-35.0)
[2025-02-28 18:44] LABS: TSH reflex Free T4 1.03 uIU/mL (0.32-4.0)
[2025-02-28 19:52] VITALS: BP 109/45; PULSE 71; RESP 22; TEMP 36.6; O2SAT 100
[2025-02-28 20:21] LABS: Influenza A PCR NEGATIVE (Negative); Influenza B PCR NEGATIVE (Negative); Resp Syncy Virus RNA Qual PCR NEGATIVE (Negative); SARS COV2 PCR INHOUSE NEGATIVE (Negative)
[2025-02-28] MEDS: Lactulose 20 GM/30 ML SOLUTION PO (21:30)
[2025-02-28] MEDS: Lactated Ringers 1,000 ML 50 ML IVCONT (21:31)
[2025-02-28 23:07] VITALS: BP 113/48; PULSE 66; RESP 22; TEMP 36.1; O2SAT 97
[2025-03-01] VITALS (7 sets, daily range): BP systolic 105–143; BP diastolic 41–66; PULSE 60–73; RESP 14–18; TEMP 36.2–37; O2SAT 95–100; BMI 31.3
--- NOTE | 2025-03-01 00:04 | PC.NURSE ---
Report received and care assumed at 2300. The pt found awake and alert, resting comfortably in stretcher with bedside visitor and sitter present at bedside. The pt has been calm and cooperative, currently resting with eyes closed, respirations even and unlabored without distress noted. The pt's bedside visitor has recently left, sitter remains at bedside and curtains pulled to limit the amount light within the room. Pt's evening lactulose enema was not documented as given prior to this RN's arrival, however was removed from the pyxis by the previous RN and not found at bedside or at the nurses station. Medication charted against as not given as this RN unable to confirm or deny whether or not previous medication dose was given by previous RN. IVF infusing without s/s of complications noted to the insertion site
--- NOTE | 2025-03-01 05:27 | PM.IMHP ---
History of Present Illness Date of Service: 02/28/25 Chief Complaint: Altered mental status 64-year-old male with a past medical history hepatitis C, liver cirrhosis, portal/splenic vein thrombosis status post tips, chronic thrombocytopenia, esophageal varices, anemia, hypertension, history of hepatic encephalopathy, discharge from the hospital on 02/27/2025 after being admitted for syncope; presented to the hospital today with a chief complaint of altered mental status. Patient was at a senior living; bystanders noted that patient was wandering around and appears confused; subsequently ambulance was called and sent her to the hospital for further evaluation. At the time of my interview patient is drowsy-status post Versed IV. Protecting airways. Does not appear to be in distress. Review of all other systems is limited. ER course: Per ER team, patient on presentation was agitated and wants to leave the hospital; was not redirectable; CT head showed no acute findings; patient was given dose of Versed. Ammonia levels noted to be in 200s. Given lactulose. [facility] Medical History Obesity (BMI 30.0-34.9) Cirrhosis of liver Fall Pancytopenia Hepatic encephalopathy Portal vein thrombosis Cirrhosis Splenic vein thrombosis Sepsis Cirrhosis of liver with ascites Abdominal pain Thrombocytopenia Pancytopenia Cirrhosis Hepatitis C virus infection Esophageal varices Pancytopenia Iron deficiency anemia Cirrhosis Hepatitis C HBP (high blood pressure) Family History Maternal Grandmother Breast CA Uterus cancer Mother Primary lung cancer of unknown cell type Surgical History S/P TIPS (transjugular intrahepatic portosystemic shunt) H/O left inguinal hernia repair H/O eye surgery History of esophagogastroduodenoscopy (EGD) H/O colonoscopy Social History Household Members: None Household Members Other:: senior living Housing: Other Housing Other:: senior living Are you a primary special needs caregiver to a significant other at home: No Do you presently have visiting nurse or other home services: Yes Unable to assess alcohol history related to: Unknown Alcohol intake: former Comment: pt refusing alarm's Patient Tobacco Use Status: Current everyday Tobacco user Tobacco use type: Cigarette Cigarette Packs Per Day: 1 Cigarettes Per Day: 4 Years Smoked: 30 Second Hand Smoke Exposure: No Substance Use Type: Crack/Cocaine and Marijuana Advance Directives: Yes Advance Directives on File: Yes Advance Directives Date on File: 04/02/24 service: No Current occupational status: retired Meds Allergies Allergy/AdvReac Type Severity Reaction Status Date / Time dicyclomine (From Bentyl) Allergy Unknown Verified 02/28/25 17:55 aspirin AdvReac Severe stomach Verified 02/28/25 17:55 bleeding NSAIDS (Non-Steroidal AdvReac Severe liver Verified 02/28/25 17:55 Anti-Inflamma concerns Active Medications: Current Medications Calcium Carbonate (Calcium Carbonate 750 Mg Tab.Chew) 750 mg PO Q4H PRN PRN Reason: Heartburn Lactated Ringer's (Lr) 1,000 mls @ 50 mls/hr IVCONT .Q20H [facility] Last Admin: 02/28/25 21:31 Dose: 50 mls/hr Lactulose (Lactulose 20 Gm/30 Ml Solution) 20 gm PO TID [facility] Last Admin: 02/28/25 21:30 Dose: 20 gm Magnesium Hydroxide (Milk Of Magnesia 30 Ml Oral.Susp) 30 ml PO DAILY PRN PRN Reason: Constipation Melatonin (Melatonin 3 Mg Tablet) 6 mg PO BEDTIME PRN PRN Reason: Insomnia Sodium Chloride (0.9 % Sodium Chloride Flush 3 Ml Syringe) 3 ml IVFLUSH QSHIFT [facility] Last Admin: 03/01/25 02:10 Dose: Not Given Home Medications ?Medication ?Instructions ?Recorded ?Confirmed ?Last Taken ?Type amlodipine 5 mg tablet 5 mg PO DAILY 12/03/24 02/26/25 Unknown History furosemide 40 mg tablet 40 mg PO DAILY 12/03/24 02/26/25 Unknown History clotrimazole 1 % topical cream 1 appl topical BID 02/26/25 02/26/25 Unknown History Physical Exam Vital Signs and Narrative: Vital Signs: Last Vital Signs Temp 97.0 F 02/28/25 23:07 Pulse 63 03/01/25 03:13 Resp 14 03/01/25 03:13 BP 105/41 L 03/01/25 03:13 Pulse Ox 97 03/01/25 03:13 O2 Del Method Room Air 03/01/25 03:13 BMI result Body Mass Index 29.5 Gen: Appears be in no acute distress HEENT: NCAT, Moist mucosa. Pulmonary: Vesicular breath sounds, fair air entry CVS: Normal S1-S2 Abdomen: BS+, Soft, Nontender Extremities: Warm well perfused Neuro: Drowsy but arousable. Moves all extremities equally Results Labs 02/28/25 18:00 02/28/25 18:00 Labs: Laboratory Results - last 24 hr 02/28/25 02/28/25 02/28/25 17:39 18:00 18:07 MCV 83.5 MCH 28.8 MCHC 34.5 RDW 14.1 Plt Count 37 L D MPV 12.1 Immature Gran % (Auto) 0.3 Neut % (Auto) 63.5 Lymph % (Auto) 25.0 [place] % (Auto) 8.2 Eos % (Auto) 2.7 Baso % (Auto) 0.3 Lymph # (Auto) 0.[address] [place] # (Auto) 0.2 Eos # (Auto) 0.1 Baso # (Auto) 0.0 Abs Immat Gran (auto) 0.01 Absolute Neuts (auto) 1.9 L Absolute Nucleated RBC 0.000 Nucleated RBC % (auto) 0.0 VBG pH 7.48 H VBG pCO2 29 VBG pO2 126 VBG HCO3 22 VBG O2 Saturation 100.0 VBG Base Excess -0.2 Anion Gap 7 L Estim Creat Clear Calc 91.4 Estimated GFR > 60 POC Glucose 125 H Random Glucose 132 H Calcium 8.5 Magnesium 1.9 Total Bilirubin 1.6 H AST 49 H ALT 34 Alkaline Phosphatase 146 H Ammonia 208 H Troponin I High Sens 26.9 D Total Protein 6.2 L Albumin 2.9 L Lipase 28 TSH 1.03 Influenza Type A (PCR) Influenza Type B (PCR) RSV RNA Qual (PCR) SARS-CoV-2 RNA (RT-PCR) 02/28/25 19:39 MCV MCH MCHC RDW Plt Count MPV Immature Gran % (Auto) Neut % (Auto) Lymph % (Auto) [place] % (Auto) Eos % (Auto) Baso % (Auto) Lymph # (Auto) [place] # (Auto) Eos # (Auto) Baso # (Auto) Abs Immat Gran (auto) Absolute Neuts (auto) Absolute Nucleated RBC Nucleated RBC % (auto) VBG pH VBG pCO2 VBG pO2 VBG HCO3 VBG O2 Saturation VBG Base Excess Anion Gap Estim Creat Clear Calc Estimated GFR POC Glucose Random Glucose Calcium Magnesium Total Bilirubin AST ALT Alkaline Phosphatase Ammonia Troponin I High Sens Total Protein Albumin Lipase TSH Influenza Type A (PCR) NEGATIVE Influenza Type B (PCR) NEGATIVE RSV RNA Qual (PCR) NEGATIVE SARS-CoV-2 RNA (RT-PCR) NEGATIVE Assessment and Plan (1) Hyperammonemia: Status: Acute Plan 64-year-old male with a past medical history hepatitis C, liver cirrhosis, portal/splenic vein thrombosis status post tips, chronic thrombocytopenia, esophageal varices, anemia, hypertension, history of hepatic encephalopathy, discharge from the hospital on 02/27/2025 after being admitted for syncope; presented to the hospital today with a chief complaint of altered mental status. Admitted for following Hepatic encephalopathy: Patient was also delirious. 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 No signs of bleeding reported. CT head negative. Will monitor. DVT prophylaxis: SCD boots Code status: Full code Quality Stroke Does the patient have a stroke diagnosis?: No VTE Prior VTE?: No VTE Risk Level:: Medical - moderate - high VTE Device Contraindication: N/A - Device Ordered VTE Drug Contraindication: Treatment Not Indicated
[2025-03-01 05:30] LABS: Appearance Urine Clear; Color Urine Yellow; Glucose Urine UA Negative (Negative); Leukocyte Esterase Urine Negative (Negative); Nitrite Urine Negative (Negative); PH 6.5 (5.0-9.0); Urine Blood Negative (Negative); Urine Ketones Trace mg/dL (Negative); Urine Protein Negative (Neg-Trace)
[2025-03-01 05:42] LABS: Amphetamine Screen Urine Not Detected (Not Detect); Barbiturates, Urine Not Detected (Not Detect); Benzodiazepines Screen Urine POSITIVE (Not Detect); Buprenorphine Scr Not Detected (Not Detect); Cannabinoid Screen Urine Not Detected (Not Detect); Cocaine Screen Urine Not Detected (Not Detect); Fentanyl, urine Not Detected (Not Detect); Methadone Screen, Urine Not Detected (Not Detect); Opiate Screen Urine Not Detected (Not Detect); Oxycodone Screen Urine Not Detected (Not Detect); Phencyclidine Screen Urine Not Detected (Not Detect)
[2025-03-01 06:20] LABS: Alanine Aminotransferase 29 U/L (0-40); Albumin Level 2.6 g/dL (3.5-5.0); Alkaline Phosphatase 120 U/L (39-117); Anion Gap 8 (12-20); Aspartate Amino Transferase 45 U/L (5-37); Bilirubin Total 1.3 mg/dL (0.0-1.0); Blood Urea Nitrogen 15 mg/dL (9-16); Calcium 8.1 mg/dL (8.4-10.2); Carbon Dioxide 24 mmol/L (22-29); Chloride 114 mmol/L (96-108); Creatinine Clr Calc Pharmacy 121.9; Estimated Glomerular Filt Rate > 60; Glucose Random 86 mg/dL (60-115); Potassium 4.2 mmol/L (3.3-5.1); Sodium 142 mmol/L (135-145); Total Protein 5.5 g/dL (6.5-8.0)
[2025-03-01 06:30] LABS: Basophils Percent Auto 0.5 % (0-2); Eosinophils Percent Auto 1.5 % (0-4); Monocytes Absolute Auto 0.2 X10*3/uL (0.1-1.2); Monocytes Percent Auto 11.2 % (2-11); PLT ABN DIST 1; SCAN SMEAR FLAG 1
[2025-03-01 06:32] LABS: Hematocrit 26.9 % (42.0-52.0); Lymphocytes Absolute Auto 0.7 X10*3/uL (1.2-4.9); Lymphocytes Percent Auto 33.2 % (20-40); Mean Corpuscular HGB Conc 33.5 g/dl (31.0-36.0); Mean Corpuscular Hemoglobin 28.5 pg (27.0-33.0); Mean Corpuscular Volume 85.1 fL (80.0-98.0); Neutrophils Absolute Auto 1.1 x10*3/uL (2.0-8.3); Neutrophils Percent Auto 53.6 % (45-73); Red Blood Count 3.16 X10*6/uL (4.60-5.80); Red Cell Distribution Width 13.9 % (11.0-16.0)
[2025-03-01 06:33] LABS: Platelet Count 25 X10*3/uL (160-400)
[2025-03-01 06:34] LABS: MANUAL DIFF FLAG NO
--- NOTE | 2025-03-01 07:16 | PHA.MEDREC ---
Pharmacy Consult ? Medication Reconciliation Pharmacy has completed the medication reconciliation. Patient was discharged on 02/27/25, utilized discharge packet.
--- NOTE | 2025-03-01 07:57 | PC.NURSE ---
Patient is 64-year-old male with a past medical history hepatitis C, liver cirrhosis, portal/splenic vein thrombosis status post tips, chronic thrombocytopenia, esophageal varices, anemia, hypertension, history of hepatic encephalopathy, discharge from the hospital on 02/27/2025 after being admitted for syncope; presented to the hospital today with a chief complaint of altered mental status. Patient was at a longterm; bystanders noted that patient was wandering around and appears confused; subsequently ambulance was called and sent her to the hospital for further evaluation. Patient on presentation was agitated and wants to leave the hospital; was not redirectable; CT head showed no acute findings; patient was given dose of Versed. Ammonia levels noted to be in 200s. Given lactulose. Patient appears more clear this morning. Ambulated in the hallway with a steady gait. Able to communicate his needs, and cooperative with care. Respirations even and non-labored. No distress noted at this time.
[2025-03-01] MEDS: Lactulose 20 GM/30 ML SOLUTION PO ×3 (10:19→21:04)
--- NOTE | 2025-03-01 14:22 | P.PNIM_ITS ---
Subjective Subjective Date of Service: 03/01/25 Interval History: Pt awake, alert, and responsive, though mildly confused; unclear if at baseline Reports feels great and wonders when he can go home Reports is compliant with home lactulose No complaints Denies N/V/abd pain No fever, chills Denies CP or pressure Review of Systems Review of Systems: Yes all other systems are reviewed and are negative Physical Exam 2 Vital Signs: Vital Signs: Last Vital Signs Temp 97.2 F 03/01/25 11:17 Pulse 60 03/01/25 11:17 Resp 18 03/01/25 11:17 BP 132/60 03/01/25 11:17 Pulse Ox 100 03/01/25 11:17 O2 Del Method Room Air 03/01/25 11:17 BMI result Body Mass Index 31.3 General: Alert and oriented to person, time, and partly to place: knows he is in a hospital but does not answer which one. Does not know why he is here. In no acute distress Resp: CTA bilaterally CVS: S1, S2, RRR GI: +BS, NT, no distention Skin: Warm, dry Neuro: Cranial nerves II-XII grossly intact bilaterally. Motor grossly intact bilaterally Extremities: No edema Psych: Mildly confused Objective Data Active Medications Calcium Carbonate (Calcium Carbonate 750 Mg Tab.Chew) 750 mg PO Q4H PRN PRN Reason: Heartburn Lactated Ringer's (Lr) 1,000 mls @ 50 mls/hr IVCONT .Q20H [facility] Last Admin: 02/28/25 21:31 Dose: 50 mls/hr Documented By: YAMILE Lactulose (Lactulose 20 Gm/30 Ml Solution) 20 gm PO TID [facility] Last Admin: 03/01/25 10:19 Dose: 20 gm Documented By: CECY Magnesium Hydroxide (Milk Of Magnesia 30 Ml Oral.Susp) 30 ml PO DAILY PRN PRN Reason: Constipation Melatonin (Melatonin 3 Mg Tablet) 6 mg PO BEDTIME PRN PRN Reason: Insomnia Sodium Chloride (0.9 % Sodium Chloride Flush 3 Ml Syringe) 3 ml IVFLUSH QSHIFT [facility] Last Admin: 03/01/25 08:02 Dose: Not Given Documented By: ROLDAN Non-Admin Reason: IV Running Labs 03/01/25 05:56 06/22/25 05:56 Labs: Laboratory Results - last 24 hr 02/28/25 02/28/25 02/28/25 17:39 18:00 18:07 MCV 83.5 MCH 28.8 MCHC 34.5 RDW 14.1 Plt Count 37 L D MPV 12.1 Immature Gran % (Auto) 0.3 Neut % (Auto) 63.5 Lymph % (Auto) 25.0 [place] % (Auto) 8.2 Eos % (Auto) 2.7 Baso % (Auto) 0.3 Lymph # (Auto) 0.7 L [place] # (Auto) 0.2 Eos # (Auto) 0.1 Baso # (Auto) 0.0 Abs Immat Gran (auto) 0.01 Absolute Neuts (auto) 1.9 L Absolute Nucleated RBC 0.000 Nucleated RBC % (auto) 0.0 VBG pH 7.48 H VBG pCO2 29 VBG pO2 126 VBG HCO3 22 VBG O2 Saturation 100.0 VBG Base Excess -0.2 Anion Gap 7 L Estim Creat Clear Calc 91.4 Estimated GFR > 60 POC Glucose 125 H Random Glucose 132 H Calcium 8.5 Magnesium 1.9 Total Bilirubin 1.6 H AST 49 H ALT 34 Alkaline Phosphatase 146 H Ammonia 208 H Troponin I High Sens 26.9 D Total Protein 6.2 L Albumin 2.9 L Lipase 28 TSH 1.03 Urine Color Urine Appearance Urine pH Ur Specific [place] Urine Protein Urine Glucose (UA) Urine Ketones Urine Blood Urine Nitrite Ur Leukocyte Esterase Urine Opiates Screen Ur Buprenorphine Scrn Ur Oxycodone Screen Urine Methadone Screen Urine Fentanyl Screen Ur Barbiturates Screen Ur Phencyclidine Scrn Ur Amphetamines Screen U Benzodiazepines Scrn Urine Cocaine Screen U Marijuana (THC) Screen Influenza Type A (PCR) Influenza Type B (PCR) RSV RNA Qual (PCR) SARS-CoV-2 RNA (RT-PCR) 02/28/25 03/01/25 03/01/25 19:39 05:23 05:56 MCV 85.1 MCH 28.5 MCHC 33.5 RDW 13.9 Plt Count 25 L D MPV Not Reportable Immature Gran % (Auto) 0.0 Neut % (Auto) 53.6 Lymph % (Auto) 33.2 [place] % (Auto) 11.2 H Eos % (Auto) 1.5 Baso % (Auto) 0.5 Lymph # (Auto) 0.7 L [place] # (Auto) 0.2 Eos # (Auto) 0.0 Baso # (Auto) 0.0 Abs Immat Gran (auto) 0.00 Absolute Neuts (auto) 1.1 L Absolute Nucleated RBC 0.000 Nucleated RBC % (auto) 0.0 VBG pH VBG pCO2 VBG pO2 VBG HCO3 VBG O2 Saturation VBG Base Excess Anion Gap 8 L Estim Creat Clear Calc 121.9 Estimated GFR > 60 POC Glucose Random Glucose 86 Calcium 8.1 L Magnesium Total Bilirubin 1.3 H AST 45 H ALT 29 Alkaline Phosphatase 120 H Ammonia Troponin I High Sens Total Protein 5.5 L Albumin 2.6 L Lipase TSH Urine Color Yellow Urine Appearance Clear Urine pH 6.5 Ur Specific [place] 1.020 Urine Protein Negative Urine Glucose (UA) Negative Urine Ketones Trace Urine Blood Negative Urine Nitrite Negative Ur Leukocyte Esterase Negative Urine Opiates Screen Not Detected Ur Buprenorphine Scrn Not Detected Ur Oxycodone Screen Not Detected Urine Methadone Screen Not Detected Urine Fentanyl Screen Not Detected Ur Barbiturates Screen Not Detected Ur Phencyclidine Scrn Not Detected Ur Amphetamines Screen Not Detected U Benzodiazepines Scrn POSITIVE H Urine Cocaine Screen Not Detected U Marijuana (THC) Screen Not Detected Influenza Type A (PCR) NEGATIVE Influenza Type B (PCR) NEGATIVE RSV RNA Qual (PCR) NEGATIVE SARS-CoV-2 RNA (RT-PCR) NEGATIVE Assessment and Plan (1) Acute hepatic encephalopathy: Status: Acute Plan 64-year-old male with a past medical history hepatitis C, liver cirrhosis, portal/splenic vein thrombosis status post tips, chronic thrombocytopenia, esophageal varices, anemia, hypertension, history of hepatic encephalopathy, discharge from the hospital on 02/27/2025 after being admitted for syncope; presented to the hospital today with a chief complaint of altered mental status. Pt is admitted to the hospital for treatment and further evaluation of acute hepatic encephalopathy. Acute hepatic encephalopathy with delirium Presenting ammonia level 208 In the setting of liver cirrhosis likely noncompliant with home meds Continue lactulose 20g tid with goal bowel movements of 3-4 per day Currently much more awake and alert, mildly confused; unclear if at baseline Continue furosemide, xifanxan Monitor mentation, follow ammonia Hypertension Continue amlodipine, carvedilol Pancytopenia/thrombocytopenia Appears stable, at baseline No signs of bleeding reported CT head negative Monitor CBC DVT prophylaxis: SCD boots Code status: Full code Pt requires continued hospitalization for continued treatement of hepatic encephelopathy with lactulose and close monitoring of labs and mentation. Quality Stroke Does the patient have a stroke diagnosis?: No VTE Prior VTE?: No VTE Risk Level:: Medical - moderate - high VTE Device Contraindication: N/A - Device Ordered VTE Drug Contraindication: Treatment Not Indicated
[2025-03-01] MEDS: rifAXIMin 550 MG TABLET PO ×2 (16:20→21:04)
[2025-03-01] MEDS: 0.9 % Sodium Chloride Flush 3 ML SYRINGE IVFLUSH ×2 (16:21→21:04)
[2025-03-01] MEDS: carvediloL 3.125 MG TABLET PO (21:04)
[2025-03-02 04:00] VITALS: BP 114/55; PULSE 61; RESP 16; TEMP 36.7; O2SAT 99
[2025-03-02 06:51] LABS: Ammonia 162 umol/L (13-55)
[2025-03-02 07:23] VITALS: BP 110/53; PULSE 62; RESP 20; TEMP 36.8; O2SAT 98
[2025-03-02 07:32] LABS: Hematocrit 29.1 % (42.0-52.0); Hemoglobin 9.7 g/dl (14.0-18.0); Mean Corpuscular HGB Conc 33.3 g/dl (31.0-36.0); Mean Corpuscular Hemoglobin 28.4 pg (27.0-33.0); Mean Corpuscular Volume 85.1 fL (80.0-98.0); Red Blood Count 3.42 X10*6/uL (4.60-5.80); Red Cell Distribution Width 13.8 % (11.0-16.0); White Blood Count 2.8 X10*3/uL (4.8-10.8)
[2025-03-02 07:33] LABS: Platelet Count 31 X10*3/uL (160-400)
[2025-03-02 07:45] LABS: Alanine Aminotransferase 36 U/L (0-40); Albumin Level 2.8 g/dL (3.5-5.0); Alkaline Phosphatase 157 U/L (39-117); Anion Gap 9 (12-20); Aspartate Amino Transferase 51 U/L (5-37); Bilirubin Total 1.2 mg/dL (0.0-1.0); Blood Urea Nitrogen 12 mg/dL (9-16); Calcium 8.7 mg/dL (8.4-10.2); Carbon Dioxide 26 mmol/L (22-29); Chloride 112 mmol/L (96-108); Creatinine Clr Calc Pharmacy 112.2; Estimated Glomerular Filt Rate > 60; Glucose Random 89 mg/dL (60-115); Potassium 4.7 mmol/L (3.3-5.1); Sodium 142 mmol/L (135-145); Total Protein 6.1 g/dL (6.5-8.0)
[2025-03-02] MEDS: 0.9 % Sodium Chloride Flush 3 ML SYRINGE IVFLUSH (08:25)
[2025-03-02] MEDS: amLODIPine Besylate 5 MG TABLET PO (08:25)
[2025-03-02] MEDS: carvediloL 3.125 MG TABLET PO (08:25)
[2025-03-02] MEDS: Lactulose 20 GM/30 ML SOLUTION PO (08:25)
[2025-03-02 10:53] VITALS: BP 119/58; PULSE 66; RESP 18; TEMP 36.9; O2SAT 100
--- NOTE | 2025-03-02 13:05 | MHC.CM.PN ---
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 PT RESIDES AT THE COUNT INCLUDES THE [facility] AT [address] [place] [address] HE IS ACTIVE WITH [facility] [facility] [facility] AND SAYS HE GOES TO A DAY PROGRAM AT [facility] 6 DAYS PER WEEK HE USES NO DME HCP ON FILE PCP: PAT PHILLIPS DCP: PT WOULD LIKE TO RETURN TO THE SENIOR CARE HOWEVER STTES SOMEONE FROM [facility] CALLED HIM THIS MORNING SAYING HE SHOULD GO TO A PROGRAM HE SAYS HE IS NOT INTERESTED IN GOING ANYWHERE ELSE, HE GAVE CM PERMISSION TO CONTACT [facility] ABOUT HIS RETURN CM CALLED [facility] [phone] HOWEVER NO ONE SEEMED TO KNOW ANYTHING ABOUT THE CALL THE PT RECEIVED THIS MORNING THEY REPORTED THEY WOULD CONTACT THE PROMOTION SPECIALIST AND CALL CM BACK Original Note: CM SPOKE TO MICAH AT [facility] SHE REPORTS THE PT WILL BE ATTENDING 6 DAYS A WEEK, THEY ARE JUST WAITING ON A SIGNATURE FROM THE PCP CM EXPLAINED THERE IS CONCERN THAT PT IS NOT TAKING ALL OF HIS MEDS PRESCRIBED SHE REPORTS IF THEY HAVE AN ORDER, THEY CAN ADMINISTER PTS MEDS AT THE PROGRAM HOSPITALIST WILL ADD ORDER TO THE DCS DCS SHOULD BE FAXED TO MICAH AT [phone]
--- NOTE | 2025-03-02 14:41 | PM.DS ---
DS: Providers Provider Date of Service: 03/02/25 Date of admission: 02/28/25 19:12 Date of discharge: 03/02/25 Primary care physician: Leta Dick MD DS: Diagnosis Discharge Diagnosis (1) Acute hepatic encephalopathy: Status: Acute DS: Summary Hospital Course Hospital Course: From admission HPI: Date of Service: 02/28/25 Chief Complaint: Altered mental status 64-year-old male with a past medical history hepatitis C, liver cirrhosis, portal/splenic vein thrombosis status post tips, chronic thrombocytopenia, esophageal varices, anemia, hypertension, history of hepatic encephalopathy, discharge from the hospital on 02/27/2025 after being admitted for syncope; presented to the hospital today with a chief complaint of altered mental status. Patient was at a halfway; bystanders noted that patient was wandering around and appears confused; subsequently ambulance was called and sent her to the hospital for further evaluation. At the time of my interview patient is drowsy-status post Versed IV. Protecting airways. Does not appear to be in distress. Review of all other systems is limited. ER course: Per ER team, patient on presentation was agitated and wants to leave the hospital; was not redirectable; CT head showed no acute findings; patient was given dose of Versed. Ammonia levels noted to be in 200s. Given lactulose. Hospital course: Pt was admitted to the hospital for acute hepatic encephalopathy with ammonia levels noted to be above baseline at 208, likely secondary to medication noncompliance when in the community. Pt was treated with lactulose 20g t.i.d. with quick resolution of mentation. Hospital stay was uncomplicated and pt was seen and evaluated today where there was no asterixis and mentation appeared back to baseline. Vital signs were stable, and pt is ammonia levels were downtrending. Pt very eager to be discharged from the hospital. Of note, pt has a long hx of medication noncompliance. Currently living at a halfway and often refuses to take lactulose, Xifaxan, and furosemide. This is patient's 4th admission to the hospital this month alone and patient's condition overall seems to be deteriorating. Pt is in the process of being admitted into a day program at [facility]. It would be greatly helpful if [facility] staff could administer patient's medications to help ensure that he is compliant with his medication regimen, and they are authorized to administer his daily medications, including lactulose, rifaximin, and furosemide for alcohol cirrhosis. Pt himself was repeatedly counseled about the importance of taking all of his home medications as prescribed to prevent further physical and mental deterioration. Problem list otherwise as below Acute hepatic encephalopathy with delirium Presenting ammonia level 208 In the setting of liver cirrhosis secondary to noncompliance with home meds Continue lactulose 20g tid with goal bowel movements of 3-4 per day Continue furosemide, xifanxan Hypertension Continue amlodipine, carvedilol Pancytopenia/thrombocytopenia Appears stable, at baseline No signs of bleeding reported Time Attestation Discharge Coordination Time (in mins): 40 Quality: Safe Use of Opioids Does Pt have an Active Cancer Diagnosis on the Problem List?: No Quality: Stroke Does the patient have a stroke diagnosis?: No Physical Exam Vital Signs: Vital Signs: Last Vital Signs Temp 98.4 F 03/02/25 10:53 Pulse 66 03/02/25 10:53 Resp 18 03/02/25 10:53 BP 119/58 L 03/02/25 10:53 Pulse Ox 100 03/02/25 10:53 O2 Del Method Room Air 03/02/25 10:53 BMI result Body Mass Index 31.3 General: AOx4. In no acute distress Resp: CTA bilaterally CVS: S1, S2, RRR GI: +BS, NT, no distention Skin: Warm, dry Neuro: Cranial nerves II-XII grossly intact bilaterally. Motor grossly intact bilaterally Extremities: 1+ bilateral pitting edema Psych: Appears back to baseline DS: Data Data Completed and Pending Completed studies during hospitalization [Text1]: Procedures Bypass Portal Vein to Hepatic Vein with Synthetic Substitute, Percutaneous Approach (10/08/24) Transfusion of Nonautologous Platelets into Peripheral Vein, Percutaneous Approach (10/08/24) Labs on day of discharge: Laboratory Results - last 24 hr 03/02/25 06:22 WBC 2.8 L RBC 3.42 L Hgb 9.7 L Hct 29.1 L MCV 85.1 MCH 28.4 MCHC 33.3 RDW 13.8 Plt Count 31 L MPV Not Reportable Absolute Nucleated RBC 0.000 Nucleated RBC % (auto) 0.0 Sodium 142 Potassium 4.7 Chloride 112 H Carbon Dioxide 26 Anion Gap 9 L BUN 12 Creatinine 0.77 Estim Creat Clear Calc 112.2 Estimated GFR > 60 Random Glucose 89 Calcium 8.7 D Total Bilirubin 1.2 H AST 51 H ALT 36 Alkaline Phosphatase 157 H Ammonia 162 H Total Protein 6.1 L Albumin 2.8 L Discharge Plan Discharge Anticipated Discharge Date/Time: 03/02/25 15:00 Patient Disposition: Home, Self-Care Discharge Diagnosis: Acute hepatic encephalopathy Referrals: Wallace MELENDEZ [Other] Leta Soto MD [Primary Care Provider, Internal Medicine] - 1 Week Discharge Medications: Continued carvedilol 3.125 mg tablet 3.125 mg PO BID Qty: 60 1RF furosemide 40 mg tablet 40 mg PO DAILY amlodipine 5 mg Tablet 5 mg PO DAILY Xifaxan 550 mg Tablet 550 mg PO TID Qty: 90 0RF (ALLIE) doris Sam See Rx Instructions .Route Qty: 1 0RF Rx Instructions: As directed clotrimazole 1 % cream 1 appl topical BID Changed lactulose 10 gram/15 mL Solution 20 g PO TID Qty: 1350 0RF Discharge Orders: Discharge Order (Routine); Ordered 03/02/25 Ordered By: Grace Hunter Activity on Discharge: As tolerated Stand Alone Forms: Patient Portal Discharge page Print Language: Ghanaian Care Plan Goals: Resume all home meds Take medication as prescribed Health Concerns: Hepatic encephalopathy Medication noncompliance Plan of Treatment: Pt should take all home meds as prescribed: Lactulose 20 g p.o. 3 times a day, furosemide 40 mg daily, and Xifaxan 550 mg p.o. 3 times a day for alcoholic cirrhosis Amlodipine 5 mg daily and carvedilol 3.125 mg twice a day for hypertension Pt is in the process of being admitted into the day program at [facility]. Staff at [facility] is authorized to administer patient's daily medications. Pt has been especially noncompliant with lactulose and Xifaxan, and has had four admissions to the hospital this month alone. Patient's overall condition seems to be deteriorating, in part secondary to medication noncompliance. It would be greatly helpful if [facility] staff could administer patient's medications and help ensure that he is compliant with his medication regimen. Assessment: See discharge summary Discharge Date/Time: 03/02/25 16:11
[2025-03-02 15:05] VITALS: BP 120/56; PULSE 64; RESP 18; TEMP 37.1; O2SAT 100
== END 2025-03-02 16:11 | disposition home or self-care (01) | DRG 423 ==
LOC: HO.ED 18:35 → HO.EDOVER 19:30 → HO.IMC 03-01 07:55
PROVIDERS: Physician Assistant Medical; Admitting Provider Hospitalist; Emergency Provider Emergency Medicine Emergency Medical Services; PCP Student in an Organized Health Care Education/Training Program; Visit Provider Student in an Organized Health Care Education/Training Program
DX: E72.20 Disorder of urea cycle metabolism, unspecified (principal); D61.818 Other pancytopenia; F05 Delirium due to known physiological condition; K74.60 Unspecified cirrhosis of liver; I10 Essential (primary) hypertension; F17.210 Nicotine dependence, cigarettes, uncomplicated; Z59.01 Sheltered homelessness; Z71.6 Tobacco abuse counseling; Z91.148 Patient's other noncompliance with medication regimen for other reason; Z20.822 Contact with and (suspected) exposure to COVID-19; Z86.19 Personal history of other infectious and parasitic diseases; Z79.899 Other long term (current) drug therapy
CPT/HCPCS: 0241U; 36415; 70450; 71045; 80053; 80307; 81003; 82140; 82803; 82947; 83690; 83735; 84443; 84484; 85025; 85027; 93005; 99285; J2250; J7120

== ENCOUNTER → 2025-02-28 17:42 | Outpatient (BNV) | payer MEDICAID, SELFPAY | PROVIDERS: Emergency Provider Emergency Medicine Emergency Medical Services; Visit Provider Radiology Vascular & Interventional Radiology | DX: R41.82 Altered mental status, unspecified (principal); R05.9 Cough, unspecified | CPT/HCPCS: 70450; 71045 ==

== ENCOUNTER → 2025-02-28 17:45 | Outpatient (BNV) | payer MEDICAID, SELFPAY | PROVIDERS: Admitting Provider Hospitalist; Emergency Provider Emergency Medicine Emergency Medical Services; Visit Provider Internal Medicine Cardiovascular Disease | DX: R94.31 Abnormal electrocardiogram [ECG] [EKG] (principal); R41.82 Altered mental status, unspecified | CPT/HCPCS: 93010 ==

== ENCOUNTER → 2025-02-28 19:12 | Outpatient (BNV) | payer MEDICAID, SELFPAY | PROVIDERS: Admitting Provider Hospitalist; Emergency Provider Emergency Medicine Emergency Medical Services; Visit Provider Hospitalist | DX: K76.82 Hepatic encephalopathy (principal) | CPT/HCPCS: 99223; 99239; 99499 ==

== ENCOUNTER 2025-03-10 14:23 | Outpatient (AMB) | payer MEDICAID, SELFPAY ==
[2025-03-10 14:28] VITALS: BP 120/52; PULSE 81; BMI 30.9
--- NOTE | 2025-03-10 14:28 | MHC.OFFVIS ---
Vital Signs 03/10/25 14:28 Height 5 ft 9 in Weight 208 lb 15.971 oz BMI 30.9 BP 120/52 L Blood Pressure Location Lt brachial Position Sitting Pulse 81 Pulse Source Pulse Oximeter Intake Visit Reasons: [facility] f/up-Hepatic Encephalopathy Clinical Rehab Liaison Required: Yes Clinical Rehab Liaison Name: kenyatta cuevas [id number] Head Cager: Head Cager Present Allergies dicyclomine (From Bentyl) Allergy (Verified 03/10/25 14:30) Unknown aspirin Adverse Reaction (Severe, Verified 03/10/25 14:30) stomach bleeding NSAIDS (Non-Steroidal Anti-Inflamma Adverse Reaction (Severe, Verified 03/10/25 14:30) liver concerns Medication List - Last Reconciled 03/10/25 by Madi Hernandez NP amlodipine 5 mg PO DAILY carvedilol 3.125 mg PO BID clotrimazole 1% 1 appl topical BID furosemide 40 mg PO DAILY lactulose 20 grams (30 mL) PO TID rifaximin (Xifaxan) 550 mg PO TID walker As directed HPI Comments Details: This is a 64-year-old male patient coming in for a hospital discharge follow-up, accompanied by family member. A squad leader was used throughout the visit. Patient with a history of hepatic encephalopathy, liver cirrhosis, and was recently in the hospital for episodes of dizziness and unresponsiveness for which Cardiology was consulted inpatient. Patient lives in a [facility] and is in a program where a nurse comes in to manage his medications. Patient states that he has been feeling well overall and denies any cardiac symptoms including exertional chest pain, shortness of breath, palpitations, dizziness, orthopnea, PND, leg edema, presyncope, or syncope. [facility] Medical History Obesity (BMI 30.0-34.9) Cirrhosis of liver Fall Pancytopenia Hepatic encephalopathy Portal vein thrombosis Cirrhosis Splenic vein thrombosis Sepsis Cirrhosis of liver with ascites Abdominal pain Thrombocytopenia Pancytopenia Cirrhosis Hepatitis C virus infection Esophageal varices Pancytopenia Iron deficiency anemia Cirrhosis Hepatitis C HBP (high blood pressure) Surgical History S/P TIPS (transjugular intrahepatic portosystemic shunt) H/O left inguinal hernia repair H/O eye surgery History of esophagogastroduodenoscopy (EGD) H/O colonoscopy Family History Maternal Grandmother Breast CA Uterus cancer Mother Primary lung cancer of unknown cell type Social History Household Members: Unknown / Unable to assess Household Members Other:: [facility] Housing: Other Housing Other:: Hotel Are you a primary inpatient care manager rn to a significant other at home: No Do you presently have visiting nurse or other home services: Yes ([facility]) Unable to assess alcohol history related to: Unknown Alcohol intake: former Comment: pt refusing alarm's Patient Tobacco Use Status: Current everyday Tobacco user Tobacco use type: Cigarette Cigarette Packs Per Day: 1 Cigarettes Per Day: 4 Years Smoked: 30 e-Cigarette/Vaping Use: Currently Using Second Hand Smoke Exposure: No Substance Use Type: Crack/Cocaine and Marijuana Advance Directives Date on File: 04/02/24 service: No Current occupational status: retired Review of Systems ENT Reports dizziness Card Denies chest pain, Denies chest pain at rest, Denies chest pain with activity, Denies rapid heart rate, Denies pedal edema, Denies edema, Denies leg edema, Denies lightheadedness, Denies palpitations, Denies dyspnea, Denies dyspnea on exertion and Denies orthopnea Resp Denies cough, Denies dyspnea and Denies dyspnea on exertion GI Denies hematochezia and Denies change in stool character Musc Denies abnormal gait, Reports limited range of motion, Reports muscle cramps, Denies muscle weakness, Denies numbness, Denies radiating pain into limb, Denies stiffness and Denies tingling Neuro Denies abnormal gait, Reports dizziness, Denies numbness and Denies tingling Endo Denies palpitations Physical Exam Vital Signs: Last Vital Signs Pulse 81 03/10/25 14:28 BP 120/52 L 03/10/25 14:28 BMI result Body Mass Index 30.9 Const General: cooperative, healthy appearing, comfortable and no acute distress Orientation/consciousness: patient oriented x3 HEENT Head: Yes normal to inspection Neck Neck: Yes normal visual inspection, Yes trachea midline and Yes supple Chest Chest palpation & inspection: normal inspection of the chest Resp Effort & Inspection: normal respiratory effort Auscultation: clear to auscultation bilaterally, no crackles, no rales, no rhonchi and no wheezes Cardio Jugular venous distension: no JVD Palpation: normal PMI Rate: regular rate Rhythm: regular rhythm Heart sounds: S1 normal heart sound present, S2 normal heart sound present, no click, no gallops, no murmurs and no rubs Peripheral pulses: Peripheral pulses 2+ throughout GI Inspection: Yes normal to inspection Palpation (GI): Soft to palpation Auscultation: normal bowel sounds Skin General skin exam: no rashes or lesions noted Neuro General: patient oriented x3 Extrem General: Yes normal to inspection, No no pedal edema and No calf tenderness Psych Appearance: grossly normal Mental Status: mental status grossly normal Speech and movement: Normal speech and movement present Assessment & Plan Assessment & Plan (1) Dizziness: Code(s): R42 - Dizziness and giddiness Category: Medical (2) Hospital discharge follow-up: Code(s): Z09 - Encounter for follow-up examination after completed treatment for conditions other than malignant neoplasm Plan 10/13/2024-echo study showed normal LV systolic function with an ejection fraction between 60-65%, with mildly increased LV wall thickness, with indeterminate filling pressures, and moderately dilated left atrium. Patient was consulted inpatient for questions of unresponsiveness related to syncope. Patient however denies any episodes of syncope. Clinically stable and euvolemic. With regards to dizziness, we will proceed with a Holter study to look for any potential arrhythmia. Further treatment based on findings. Blood pressure within normal limits. Continue current regimen. Advised heart healthy diet, regular exercise, med compliance, and management of vascular risk factors. Follow up after Holter study. In the interim, patient will call the office with any concerns or change in symptoms. This note was generated using voice recognition software. While every effort has been made to ensure accuracy and proper janitorial maintenance worker, there may be occasional errors that could affect the content or meaning of the described symptoms. Orders: Orders ECG 3 day holter monitor Today R42 - Dizziness and giddiness Coding Level of Care Code Est Pt Level 4 (42876) Complex EM visit Add On G2211 Diagnoses Dizziness R42 Hospital discharge follow-up Z09 Time Spent (min) 32 Comment Time spent in reviewing the chart, test results, assessment, counseling and documentation.
--- OUTSIDE RECORDS SUMMARY | 2025-03-10 15:33 | XMS_ITS | Encounter Summary ---
Author Organization [employer] Address [address] [place] [address] Care Team Providers Care Space Systems Operations Manager Name Role Phone Leta Soto MD Primary Care Pro vider Yajaira Antonio Unavailable Encounter Details Date Type Department Care Team (Late st Contact Info) Description 11/11/2024 Telephone [facility] [address] [place] [address] Leta Soto MD [address] [place] [address] Social History Tobacco Use Types Packs/Day Years [...] 12:27 PM EST Tc from amrita stiles telephonic nurse case manager requesting the status on pt documented in this encounter Plan of Treatment Upcoming Encounters Date Type Department Care Team (Late st Contact Info) Description 03/12/2025 10:00 AM EDT Office Visit [facility] [address] [place] [id number] Leta Soto MD [address] [place] [address] documented as of this encounter Goals Goal [...] documented as of this encounter Care Teams Space Systems Operations Manager Relationship Specialty Start Date End Date Leta Soto MD [address] [place] [id number] PCP - General Internal Medicine 04/11/[address] [place] [address] Gastroenterology 09/04/24 [facility] 01/28/25 documented as of this encounter
== END 2025-03-10 15:04 | disposition home or self-care (01) ==
LOC: HO.HCS 14:23
PROVIDERS: PCP Student in an Organized Health Care Education/Training Program
DX: R42 Dizziness and giddiness (principal); Z09 Encounter for follow-up examination after completed treatment for conditions other than malignant neoplasm
CPT/HCPCS: 99214

== ENCOUNTER → 2025-03-10 14:23 | Outpatient (BNVA) | payer MEDICAID, SELFPAY | PROVIDERS: PCP Student in an Organized Health Care Education/Training Program | DX: Z09 Encounter for follow-up examination after completed treatment for conditions other than malignant neoplasm (principal); R42 Dizziness and giddiness | CPT/HCPCS: 99212 ==

== ENCOUNTER 2025-03-17 08:40 | Outpatient (REF) | payer MEDICAID, SELFPAY ==
--- NOTE | ~2025-03-17 | XR_ITS ---
EXAMINATION: XR CHEST CLINICAL INFORMATION: ABNORMAL CXR; follow-up left upper lobe pneumonia seen 11/21/2024. COMPARISON: 02/28/2025, 01/21/2025. TECHNIQUE: 2 views of the chest were obtained. FINDINGS: The cardiac, hilar, and mediastinal contours are normal. The lungs are clear bilaterally. There is no pneumothorax or pleural effusion. There is no focal osseous or soft tissue abnormality. There is a dextroconvex scoliosis of the thoracic spine. There is a TIPS catheter in place. XR/XR chest 2V IMPRESSION: No active pulmonary disease. Electronically signed by: Rao Hale MD 03/17/2025 09:09 AM EDT
--- OUTSIDE RECORDS SUMMARY | 2025-03-17 08:55 | XMS_ITS | Encounter Summary ---
Author Organization [employer] Address [address] [place] [address] Care Team Providers Care Income Tax Consultant Name Role Phone Leta Soto MD Primary Care Pro vider Yajaira Antonio Unavailable Encounter Details Date Type Department Care Team (Late st Contact Info) Description 03/16/2025 Orders Only [facility] [address] [place] [address] Leta Soto MD [address] [place] [address] Social History Tobacco Use Types Packs/Day Years Used Date Smoking Tobacco: Every Day Cigarettes Last attempted to quit: 11/26/2024 Passive Smoke Exposure: Current Smokeless Tobacco: Never Comments:Pt smokes since 15 y o until now. Per pt around 3 cigs / day. Smoking years 47. PQT calc 7.05 Alcohol Use Standard Drinks/Week Comments Never 0 (1 standard drink = 0.6 oz pur e alcohol) Depression Answer Date Recorded Patient Health Questionnaire-9 Score 0 03/12/2025 Patient Health Questionnaire-9 Score 0 03/12/2025 Last PHQ-9: Questionnaire Data Not on file 0 03/12/2025 Housing Stability Answer Date Recorded What is your housing situation today? I have brenna dyer 03/12/[address] you li ve. Do you have problems with any of the following? None of the above 03/12/2025 Food Insecurity Answer Date Recorded Within the past 12 months, y ou worried that your food would run out before you got money to buy more: Never True 03/12/2025 Within the past 12 months,th e food you bought just didn't last and you didn't have enough money to get more: Never True 11/2024 Transportation Answer Date Recorded In the past 12 months, has l ack of transportation kept you from medical appts, meetings, work or from getting things needed for daily living? No 03/12/2025 Utilities Answer Date Recorded In the past 12 months, has t he electric, gas, oil or water company threatened to shut off services in your home? No 11/27/2024 Depression Answer Date Recorded Patient Health Questionnaire-2 Score 0 03/12/2025 Internet Access Answer Date Recorded Internet Access Q1 No 03/12/2025 Internet Access Q2 I do not want or need it 11/2024 Sex and Gender Information Value Date Recorded Sex Assigned at Male 04/05/2023 12:03 PM EDT Legal Sex Male 12:23 PM EDT Gender Identity Male 04/05/2023 12:03 PM EDT Sexual Orientation Don't know 05/26/2023 6: 44 PM EDT Sexual Orientation Straight 05/26/2023 6: 44 PM EDT documented as of this encounter Progress Notes * Leta Dick MD - 03/16/2025 2:40 PM EDT I called pt 's pharmacy and his GI office and no reason why iron was stopped - I called pt and his cousin Sherie and inform that I am resuming Iron 1 tab 3 times a week Pt denies SE w med -I request cousin and his GI office staff to discuss w materials planning analyst about need for resuming PPIs -they will check w pt per Sherie pt has apt w GI in 2 months in 05/2025 documented in this encounter Plan of Treatment Upcoming Encounters Date Type Department Care Team (Late st Contact Info) Description 06/09/2025 9:45 AM EDT Office Visit [facility] [address] [place] [id number] Leta Soto MD [address] [place] [address] documented as of this encounter Goals Goal Patient Goal Type Associated Problems Recent Progress Patient-Stated? Author Blood Pressure < 140/90 Blood Pressure 132/54(2024 10:24 AM EDT) Loan Newsome Record your blood pressure once per day Blood Pressure No Loan Talbot documented as of this encounter Visit Diagnoses Not on filedocumented in this encounter Additional Health Concerns Assessment Noted Time PHQ-9 Depression Total Score: 0 03/12/20 10:25 AM EDT documented as of this encounter Care Teams Income Tax Consultant Relationship Specialty Start Date End Date Leta Soto MD [address] [place] [id number] PCP - General Internal Medicine 04/11/23 Yajaira Antonio [address] [place] [address] 3rd [place] [address] Gastroenterology 09/04/24 [facility] 01/28/25 documented as of this encounter
== END 2025-03-17 08:41 | disposition home or self-care (01) ==
LOC: HO.HHCX 08:40
PROVIDERS: PCP Student in an Organized Health Care Education/Training Program; Visit Provider Student in an Organized Health Care Education/Training Program
DX: R93.89 Abnormal findings on diagnostic imaging of other specified body structures (principal)
CPT/HCPCS: 71046

== ENCOUNTER → 2025-03-17 08:44 | Outpatient (BNV) | payer MEDICAID, SELFPAY | PROVIDERS: PCP Student in an Organized Health Care Education/Training Program; Visit Provider Radiology Diagnostic Radiology | DX: J18.1 Lobar pneumonia, unspecified organism (principal) | CPT/HCPCS: 71046 ==

== ENCOUNTER 2025-03-21 10:38 | Emergency (ER) | payer MEDICAID, SELFPAY ==
[2025-03-21] VITALS (7 sets, daily range): BP systolic 110–158; BP diastolic 43–82; PULSE 61–72; RESP 15–18; TEMP 36.3–36.8; O2SAT 98–100; BMI 32.1
--- NOTE | ~2025-03-21 | CT_ITS ---
CLINICAL HISTORY: altered mental status CT head without contrast Comparison: CT/SR - CT HEAD/BRAIN WO IV CON - 02/28/25 18:03 EDT Findings: No intra-axial mass, midline shift, hydrocephalus, or acute hemorrhage. No significant atrophy-like change or white matter disease. The visualized paranasal sinuses and mastoid air cells are normal. The right globe is diminutive and diffusely hyper attenuating. Previous left globe lens surgery. There is no acute fracture. IMPRESSION: 1. No acute intracranial findings. This document has been electronically signed by: Benjamin Gaytan MD on 03/21/2025 13:51:02
--- NOTE | 2025-03-21 11:22 | ECG_ITS ---
Test Reason : CONFUSION Blood Pressure : */* mmHG Vent. Rate : 63 BPM Atrial Rate : 63 BPM P-R Int : 142 ms QRS Dur : 86 ms QT Int : 440 ms P-R-T Axes : * 166 123 degrees QTcB Int : 450 ms Normal sinus rhythm Right axis deviation Abnormal ECG When compared with ECG of 28-Feb-2025 19:12, QRS axis Shifted right Referred By: Victorino Kong Electronically Signed By: Slick Hoover
[2025-03-21] MEDS: LORazepam 2 MG/ML VIAL IM (11:30)
--- NOTE | 2025-03-21 11:39 | ED_ITS ---
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 Apparently the patient is from a day program were staff felt the patient was more confused than baseline. He was noted to have right arm tremors. On arrival to the ED the patient is requesting to leave. He is somewhat agitated but not combative. He is unable to tell me where he is or where he came from but he continues to request to leave He complains of dizziness but no other complaints or concerns The patient was admitted several times last month for hepatic encephalopathy due to medication noncompliance Related Data Home Medications ?Medication ?Instructions ?Recorded ?Confirmed amlodipine 5 mg tablet 5 mg PO DAILY 12/03/2403/10 furosemide 40 mg tablet 40 mg PO DAILY 12/03/2410/04 clotrimazole 1 % topical cream 1 appl topical BID 02/0803/10/25 Previous Rx's ?Medication ?Instructions ?Recorded walker #1 ea 02/08/25 rifaximin 550 mg tablet (Xifaxan) 550 mg PO TID #90 ta bs 02/16/25 carvedilol 3.125 mg tablet 3.125 mg PO BID #60 tabs lactulose 10 gram/15 mL oral 20 g (30 mL) PO TID #1,35 0 mL 03/02/25 solution Allergies Allergy/AdvReac Type Severity Reaction Status Date / Time dicyclomine (From Bentyl) Allergy Unknown Verified 03/21/25 11:01 aspirin AdvReac Severe stomach Verified 03/21/25 11:01 bleeding NSAIDS (Non-Steroidal AdvReac Severe liver Verified 03/21/25 11:01 Anti-Inflamma concerns Review of Systems 2 Constitutional: Constitutional: Denies body ache(s), Denies chills, Denies fever(s) and Denies headache(s) Eyes: Eyes: Denies blurry vision ENT: Reports dizziness and Denies headache(s) Cardiovascular: Cardiovascular: Denies chest pain and Denies dyspnea on exertion Respiratory: Respiratory: Denies cough and Denies dyspnea on exertion Gastrointestinal: Gastrointestinal: Denies abdominal pain, Denies nausea and Denies vomiting Musculoskeletal: Musculoskeletal: Denies back pain Integumentary/Breasts: Skin/Breast: Denies rash Neurologic: Reports dizziness and Denies headache(s) Psychiatric: Psychiatric: Denies anxiety PMF Past Medical History Medical History Obesity (BMI 30.0-34.9) Cirrhosis of liver Fall Pancytopenia Hepatic encephalopathy Portal vein thrombosis Cirrhosis Splenic vein thrombosis Sepsis Cirrhosis of liver with ascites Abdominal pain Thrombocytopenia Pancytopenia Cirrhosis Hepatitis C virus infection Esophageal varices Pancytopenia Iron deficiency anemia Cirrhosis Hepatitis C HBP (high blood pressure) Surgical History S/P TIPS (transjugular intrahepatic portosystemic shunt) H/O left inguinal hernia repair H/O eye surgery History of esophagogastroduodenoscopy (EGD) H/O colonoscopy Family History Family History Maternal Grandmother Breast CA Uterus cancer Mother Primary lung cancer of unknown cell type Social History Social History Household Members: Unknown / Unable to assess Household Members Other:: jail Housing: Other Housing Other:: Hotel Are you a primary healthcare manager to a significant other at home: No Do you presently have visiting nurse or other home services: Yes ([facility]) Unable to assess alcohol history related to: Unknown Alcohol intake: former Comment: pt refusing alarm's Patient Tobacco Use Status: Current everyday Tobacco user Tobacco use type: Cigarette Cigarette Packs Per Day: 1 Cigarettes Per Day: 4 Years Smoked: 30 e-Cigarette/Vaping Use: Currently Using Second Hand Smoke Exposure: No Substance Use Type: Crack/Cocaine and Marijuana Advance Directives: Yes Advance Directives on File: Yes Advance Directives Date on File: 04/02/24 Do you have a plan to hurt others: No Plan service: No Current occupational status: retired Physical Exam ED Vital Signs: Vital Signs - 24 hr 03/21/25 11:08 03/21/25 12:21 03/21/25 14:00 Temperature 97.7 F 98.3 F 97.4 F Pulse Rate 72 64 62 Respiratory Rate 17 16 16 Blood Pressure 115/59 L 133/45 L 122/46 L Pulse Oximetry 100 99 100 Oxygen Delivery Method Room Air Room Air Room Air 03/21/25 16:12 03/21/25 18:11 Temperature 98.1 F Pulse Rate 61 61 Respiratory Rate 15 18 Blood Pressure 110/43 L 113/45 L Pulse Oximetry 100 98 Oxygen Delivery Method Room Air Room Air BMI result Body Mass Index 32.1 Const General: healthy appearing, comfortable, no acute distress, alert and awake Nutritional Appearance: well nourished Orientation/consciousness: oriented to person, No oriented to place and No oriented to time HENMT Head: Yes normocephalic and Yes atraumatic Eyes Other: Right eye enucleation Neck Neck: Yes full ROM Resp Effort & Inspection: normal respiratory effort, able to speak in complete sentences and not labored GI Inspection: No distended Palpation (GI): Soft to palpation, not firm, nontender, no guarding and not rigid Skin General skin exam: elasticity normal Neuro Other: No noted asterixis General: oriented to person, No oriented to place and No oriented to time Cranial nerves: Yes Bilaterally intact EOM present Extrem Other: Moving all extremities well without any obvious deformities Course Reevaluation(s) Reevaluation #1: Patient has been resting comfortably since his IM injection of Ativan. His medical workup is largely unremarkable. CT scan is unremarkable. I ordered a CT scan of the head as his ammonia level was only slightly elevated and below the patient's baseline, this is not likely to be hepatic encephalopathy. The patient's guided chronic pancytopenia consistent with his baseline. No left shift to suggest infectious process Time: 14:51 Reevaluation #2: Patient continues to rest comfortably, vital signs are stable. Remains awake, and oriented after the initial period of agitation. I am not quite sure what caused the patient's initial period of agitation, he does not have hepatic encephalopathy as his ammonia is only 67, his head CT is unremarkable, low suspicion for ischemic stroke given the patient does not have any focal [place] [id number]. There was no reported substance abuse and the patient is from a day program. However he has been calm and cooperative for several hours. I am unsure if he has an underlying psychiatric disorder cause in the agitation this appears to have resolved Time: 18:05 Reevaluation #3: The patient's cousin, renny Dick is bedside. She reports the patient does not seem altered to her and appears to be at his baseline. Again, he appears awake, and oriented to me. He has had no further periods of agitation. Anticipate [facility] where [facility]. The patient's cousin will bring him home once discharge. We will attempt to get the patient up to make sure he is able to walk safely Time: 18:30 Medications Administered Discontinued Medications Generic Name Dose Route Start Last Admin Trade Name Samuel PRN Reason Stop Dose Admin Lorazepam 2 mg 03/21/25 11:21 03/21/25 11:30 Lorazepam 2 Mg/Ml Vial IM 03/21/25 11:22 2 mg STAT STA Administration Medical Decision Making Medical Decision Making [facility] Narrative: 64-year-old male past medical history as above presents for evaluation of altered mental status. He is oriented to person but not place or time. He is requesting to leave but given that he is not wet and oriented I do not feel it is safe that the patient is leaving against medical advice. He was medically restrained for his safety, see nursing notes. He received Ativan 2 mg IM. No physical restraints were required. Plan to work the patient for what is likely hepatic encephalopathy. There are no signs of trauma, vital signs are stable. He has had 6 CT scans of his brain in the last 2 months for various concerns. He has no focal neurologic deficits. Differential Diagnosis Differential Diagnoses: The differential diagnosis associated with the presentation includes Hepatic encephalopathy Substance abuse CVA less likely Intracranial hemorrhage less likely Admission/Observation Consideration of admission/observation: Escalation of care including admission/observation considered Lab Data 03/21/25 12:11 03/21/25 12:11 Labs: Lab Results 03/21/25 03/21/25 Range/Units 12:11 12:18 WBC 2.5 L (4.8-10.8) X10*3/uL RBC 3.77 L (4.60-5.80) X10*6/uL Hgb 10.5 L (14.0-18.0) g/dl Hct 31.0 L (42.0-52.0) % MCV 82.2 (80.0-98.0) fL MCH 27.9 (27.0-33.0) pg MCHC 33.9 (31.0-36.0) g/dl RDW 14.5 (11.0-16.0) % Plt Count 28 L (160-400) X10*3/uL MPV 12.3 (9.4-12.4) fL Immature Gran % (Auto) 0.4 (0.0-0.4) % Neut % (Auto) 54.7 (45-73) % Lymph % (Auto) 35.0 (20-40) % [place] % (Auto) 7.9 (2-11) % Eos % (Auto) 1.6 (0-4) % Baso % (Auto) 0.4 (0-2) % Lymph # (Auto) 0.9 L (1.2-4.9) X10*3/uL [place] # (Auto) 0.2 (0.1-1.2) X10*3/uL Eos # (Auto) 0.0 (0.0-0.4) X10*3/uL Baso # (Auto) 0.0 (0.0-0.2) X10*3/uL Abs Immat Gran (auto) 0.01 (0.00-0.03) X10*3/uL Absolute Neuts (auto) 1.4 L (2.0-8.3) x10*3/uL Absolute Nucleated RBC 0.000 (0.0-0.012) X10*3/uL Nucleated RBC % (auto) 0.0 (0.0-0.2) /100WBC PT 16.1 H (10.9-12.4) SEC INR 1.4 H (0.9-1.1) Sodium 140 (135-145) mmol/L Potassium 4.2 (3.3-5.1) mmol/L Chloride 110 H (96-108) mmol/L Carbon Dioxide 25 (22-29) mmol/L Anion Gap 9 L (12-20) BUN 15 (9-16) mg/dL Creatinine 0.86 (0.5-1.4) mg/dL Estim Creat Clear Calc 98.6 Estimated GFR > 60 Random Glucose 79 (60-115) mg/dL Lactic Acid 1.6 (0.5-2.0) mmol/L Calcium 8.5 (8.4-10.2) mg/dL Magnesium 2.1 (1.6-2.6) mg/dL Total Bilirubin 1.3 H (0.0-1.0) mg/dL AST 47 H (5-37) U/L ALT 30 (0-40) U/L Alkaline Phosphatase 142 H (39-117) U/L Ammonia 67 H (13-55) umol/L Total Protein 6.7 (6.5-8.0) g/dL Albumin 3.2 L (3.5-5.0) g/dL Lipase 41 (8-78) U/L Urine Color Yellow Urine Appearance Clear Urine pH 6.0 (5.0-9.0) Ur Specific [place] 1.010 (1.005-1.025) Urine Protein Negative (Neg-Trace) mg/dL Urine Glucose (UA) Negative (Negative) mg/dL Urine Ketones Negative (Negative) mg/dL Urine Blood Negative (Negative) Urine Nitrite Negative (Negative) Ur Leukocyte Esterase Negative (Negative) Urine RBC 0-2 (0-2) /HPF Urine WBC 0-5 (0-5) /HPF Ur Squamous Epith Cells 0-2 (0-2) /HPF Urine Bacteria None Seen (None Seen) Hyaline Casts 0-2 (0-2) /LPF Ethyl Alcohol < 10 mg/dL Blood Type O Negative Antibody Screen NEGATIVE Discharge Plan Discharge Clinical Impression: Agitation Patient Disposition: Home, Self-Care Instructions: Chronic Liver Disease (ED) Additional Instructions: Your workup today was quite reassuring. Your ammonia level was slightly elevated to 67, but it was significantly improved from the last level of 162. Continue taking your lactulose as prescribed Follow-up with your primary doctor, return for new or worsening symptoms Prescriptions: No Action carvedilol 3.125 mg tablet 3.125 mg PO BID Qty: 60 1RF furosemide 40 mg tablet 40 mg PO DAILY amlodipine 5 mg Tablet 5 mg PO DAILY Xifaxan 550 mg Tablet 550 mg PO TID Qty: 90 0RF lactulose 10 gram/15 mL Solution 20 g PO TID Qty: 1350 0RF (DME) doris Misc See Rx Instructions .Route Qty: 1 0RF Rx Instructions: As directed clotrimazole 1 % cream 1 appl topical BID Print Language: Luxembourgish
--- NOTE | 2025-03-21 11:40 | PC.NURSE ---
Pt moved to ED RM 22, noted to be confused and exit seeking. Pt uncooperative, unable to verbally redirect with staff registered nurse. JOY Gleason at bedside. Plan for IM Ativan and given. Workup held, pending effect of medication given. NSR on tele and 1:1 at bedside.
[2025-03-21 12:16] LABS: MANUAL DIFF FLAG NO
[2025-03-21 12:23] LABS: Ammonia 67 umol/L (13-55); Appearance Urine Clear; Glucose Urine UA Negative (Negative); Hematocrit 31.0 % (42.0-52.0); Hemoglobin 10.5 g/dl (14.0-18.0); Imm Gran Abs Auto 0.01 X10*3/uL (0.00-0.03); Imm Gran Pct Auto 0.4 % (0.0-0.4); Lymphocytes Absolute Auto 0.9 X10*3/uL (1.2-4.9); Mean Corpuscular HGB Conc 33.9 g/dl (31.0-36.0); Mean Corpuscular Hemoglobin 27.9 pg (27.0-33.0); Mean Corpuscular Volume 82.2 fL (80.0-98.0); NRBC Abs Auto 0.000 X10*3/uL (0.0-0.012); NRBC Pct Auto 0.0 /100WBC (0.0-0.2); PH 6.0 (5.0-9.0); Red Blood Count 3.77 X10*6/uL (4.60-5.80); Specific Gravity - Urine 1.010 (1.005-1.025)
[2025-03-21 12:24] LABS: INTERNATIONAL NORM RATIO 1.4 (0.9-1.1); Platelet Count 28 X10*3/uL (160-400); Prothrombin Time 16.1 SEC (10.9-12.4); White Blood Count 2.5 X10*3/uL (4.8-10.8)
[2025-03-21 12:32] LABS: Alanine Aminotransferase 30 U/L (0-40); Albumin Level 3.2 g/dL (3.5-5.0); Alkaline Phosphatase 142 U/L (39-117); Anion Gap 9 (12-20); Aspartate Amino Transferase 47 U/L (5-37); Blood Urea Nitrogen 15 mg/dL (9-16); Calcium 8.5 mg/dL (8.4-10.2); Carbon Dioxide 25 mmol/L (22-29); Chloride 110 mmol/L (96-108); Creatinine Clr Calc Pharmacy 98.6; Estimated Glomerular Filt Rate > 60; Lipase 41 U/L (8-78); Magnesium 2.1 mg/dL (1.6-2.6); Potassium 4.2 mmol/L (3.3-5.1); Sodium 140 mmol/L (135-145); Total Protein 6.7 g/dL (6.5-8.0)
--- NOTE | 2025-03-21 13:21 | PC.NURSE ---
Pt is asleep at this time. Head CT results pending. VSS.
[2025-03-23 08:12] LABS: Glucose, Whole Blood 83 mg/dL (60-115)
== END 2025-03-21 19:54 | disposition home or self-care (01) ==
PROVIDERS: Physician Assistant; Emergency Provider Emergency Medicine; PCP Student in an Organized Health Care Education/Training Program
DX: R45.1 Restlessness and agitation (principal); R41.82 Altered mental status, unspecified; B19.20 Unspecified viral hepatitis C without hepatic coma; K74.69 Other cirrhosis of liver; D69.6 Thrombocytopenia, unspecified; K76.82 Hepatic encephalopathy; I81 Portal vein thrombosis; Z79.899 Other long term (current) drug therapy
CPT/HCPCS: 36415; 70450; 80053; 80307; 81001; 82140; 82947; 83605; 83690; 83735; 85025; 85610; 86850; 86900; 86901; 93005; 96372; 99284; J2060

== ENCOUNTER → 2025-03-21 11:22 | Outpatient (BNV) | payer MEDICAID, SELFPAY | PROVIDERS: Emergency Provider Emergency Medicine; PCP Student in an Organized Health Care Education/Training Program; Visit Provider Internal Medicine Cardiovascular Disease | DX: R41.0 Disorientation, unspecified (principal); R94.31 Abnormal electrocardiogram [ECG] [EKG] | CPT/HCPCS: 93010 ==

== ENCOUNTER → 2025-03-21 12:33 | Outpatient (BNV) | payer MEDICAID, SELFPAY | PROVIDERS: Emergency Provider Emergency Medicine; PCP Student in an Organized Health Care Education/Training Program; Visit Provider Radiology Diagnostic Radiology | DX: R41.82 Altered mental status, unspecified (principal) | CPT/HCPCS: 70450 ==

== ENCOUNTER 2025-03-24 11:05 | Inpatient (IN) | payer MEDICAID, SELFPAY ==
--- NOTE | 2025-03-24 | ECG_ITS ---
Test Reason : CP/DIZZY/AMS Blood Pressure : */* mmHG Vent. Rate : 76 BPM Atrial Rate : 76 BPM P-R Int : 132 ms QRS Dur : 88 ms QT Int : 408 ms P-R-T Axes : 42 14 70 degrees QTcB Int : 459 ms Normal sinus rhythm with sinus arrhythmia Normal ECG When compared with ECG of 21-Mar-2025 11:45, QRS axis Shifted left Referred By: Generic ED Physician Electronically Signed By: ЕКАТЕРИНА ZARAGOZA
--- NOTE | ~2025-03-24 | MR_ITS ---
CLINICAL HISTORY: Dizziness, altered mental status R O stroke MR Brain without gadolinium Comparison: CT/REG/SR - HEAD HEAD_WITHOUT (ADULT) - 03/21/25 12:37 EDT Findings: The ventricles and subarachnoid spaces are normal in size in the ventricles are normal in position with no midline shift or herniation. No intra-axial or extra-axial hemorrhage. No restricted diffusion. No territorial infarct. Bilateral scattered supratentorial white matter hyperintense foci seen on T2 weighted and FLAIR sequences, nonspecific but most suggestive of mild chronic small-vessel ischemic changes. No focal mass lesion or mass effect. Midline structures are grossly normal. Flow voids are maintained within the major vessels of the base of the brain. Right globe prosthesis and right enophthalmos. Left orbital contents within appear normal. The sinuses and mastoid air cells are clear. No focal bone lesion. IMPRESSION: 1. No acute findings. 2. Mild nonspecific supratentorial white matter hyperintense foci most suggestive of chronic small-vessel ischemic changes. This document has been electronically signed by: Daphne Jensen MD on 03/24/2025 18:18:05
--- NOTE | ~2025-03-24 | XR_ITS ---
CLINICAL HISTORY: cough, chest pain 1 view chest x-ray Comparison: CR/SR - XR CHEST 2 VIEWS - 03/17/25 09:06 EDT Findings: Heart size is top-normal. No consolidation, significant pleural effusion or significant pneumothorax. No acute fracture. Stable dextrocurvature of the thoracic spine. IMPRESSION: 1. No acute findings. This document has been electronically signed by: Daphne Jensen MD on 03/24/2025 22:24:13
--- NOTE | ~2025-03-24 | US_ITS ---
EXAMINATION: US ABDOMEN LIMITED CLINICAL INFORMATION: Assess TIPS for patency. COMPARISON: None available. TECHNIQUE: Real-time imaging of the right upper quadrant abdominal viscera. FINDINGS: As per technologist note, very limited exam due to extensive overlying bowel gas. PANCREAS: Obscured by bowel gas. LIVER: The liver is normal in size. Right hepatic lobe measures 13.2 cm in length. The liver contour is normal. Hepatic echogenicity is coarsened and mildly increased, in keeping with hepatocellular disease. No suspicious focal hepatic lesion. There is no intrahepatic biliary duct dilatation seen. There is a TIPS catheter in place, which is patent on color Doppler imaging. The portal vein appears patent. It is somewhat dilated in keeping with portal hypertension. GALLBLADDER: The gallbladder is physiologically distended without evidence of stones, sludge, polyps, wall thickening or pericholecystic fluid. Negative sonographic Kellogg's sign. COMMON BILE DUCT: Could not be well visualized. RIGHT KIDNEY: Limited visualization of the upper and lower pole. No hydronephrosis. No renal calculi or focal parenchymal lesions. The kidney measures 11.0 cm in maximum dimension. FREE FLUID: None. US/US abdomen limited IMPRESSION: 1. Very limited examination secondary to extensive overlying bowel gas. 2. TIPS catheter within the liver is patent on color Doppler imaging. 3. Coarsened and increased hepatic echogenicity in keeping with hepatocellular disease. No suspicious lesion allowing for study limitations. 4. The common bile duct could not be well visualized. No intrahepatic biliary dilatation present. 5. Normal gallbladder. 6. Partially imaged right kidney is normal. Electronically signed by: Rao Hale MD 03/26/2025 11:05 AM EDT
[2025-03-24 11:17] VITALS: BP 156/65; BP 160/70; PULSE 80; PULSE 81; RESP 14; TEMP 36.9; O2SAT 100; BMI 31.3
[2025-03-24 12:05] VITALS: BP 137/50; PULSE 65; RESP 18; O2SAT 100
[2025-03-24 12:19] LABS: Hematocrit 29.1 % (42.0-52.0); Hemoglobin 9.5 g/dl (14.0-18.0); Imm Gran Abs Auto 0.00 X10*3/uL (0.00-0.03); Imm Gran Pct Auto 0.0 % (0.0-0.4); Lymphocytes Absolute Auto 0.7 X10*3/uL (1.2-4.9); MANUAL DIFF FLAG SCAN; Mean Corpuscular HGB Conc 32.6 g/dl (31.0-36.0); Mean Corpuscular Hemoglobin 27.4 pg (27.0-33.0); Mean Corpuscular Volume 83.9 fL (80.0-98.0); NRBC Abs Auto 0.000 X10*3/uL (0.0-0.012); NRBC Pct Auto 0.0 /100WBC (0.0-0.2); Red Blood Count 3.47 X10*6/uL (4.60-5.80); SCAN SMEAR FLAG 1
[2025-03-24 12:21] LABS: Platelet Count 25 X10*3/uL (160-400); White Blood Count 2.2 X10*3/uL (4.8-10.8)
[2025-03-24 12:34] LABS: Alanine Aminotransferase 28 U/L (0-40); Albumin Level 2.9 g/dL (3.5-5.0); Alkaline Phosphatase 119 U/L (39-117); Anion Gap 11 (12-20); Aspartate Amino Transferase 44 U/L (5-37); Blood Urea Nitrogen 14 mg/dL (9-16); Calcium 8.9 mg/dL (8.4-10.2); Carbon Dioxide 26 mmol/L (22-29); Chloride 115 mmol/L (96-108); Creatinine Clr Calc Pharmacy 107.5; Estimated Glomerular Filt Rate > 60; Potassium 4.5 mmol/L (3.3-5.1); Sodium 147 mmol/L (135-145); Total Protein 6.2 g/dL (6.5-8.0)
--- OUTSIDE RECORDS SUMMARY | 2025-03-24 12:57 | XMS_ITS | Encounter Summary ---
Author Organization [employer] Address [address] [facility] [address] [place] [address] Care Team Providers Care Transit Mechanic Name Role Phone Leta Soto MD Primary Care Pro vider Yajaira Antonio Unavailable Encounter Details Date Type Department Care Team (Late st Contact Info) Description 03/21/2025 Orders Only GENERIC EXTERNAL DATA DEPARTMENT Provider, [...] Description 06/09/2025 9:45 AM EDT Office Visit [facility] [address] [place] [phone] Leta Soto MD [address] [place], [place] [phone] documented as of this encounter Goals Goal Patient Goal Type Associated Problems Recent Progress Patient-Stated? Author Blood Pressure < 140/90 Blood Pressure 132/54(2024 10:24 AM EDT) No Loan Talbot Record your blood pressure once per day Blood Pressure No Loan Talbot documented as of this encounter Procedures Procedure Name Priority Date/Time Associated Diagnosis Comments CT HEAD WO CONTRAST Routine 03/21/2025 1 :51 PM EDT TYPE AND SCREEN Routine 03/21/2025 12:18 PM EDT ETHANOL Routine 03/21/2025 12:11 PM EDT URINALYSIS, COMPLETE, WITH REFLEX TO CULTURE Routine 03/21/2025 12:11 PM EDT CBC WITH AUTO DIFFERENTIAL Routine 03/21/2025 12:11 PM EDT PROTHROMBIN TIME-INR Routine 03/21/2025 12:11 PM EDT MAGNESIUM Routine 03/21/2025 12:11 PM EDT LIPASE Routine 03/21/2025 12:11 PM EDT LACTIC ACID Routine 03/21/2025 12:11 PM EDT AMMONIA (P) Routine 03/21/2025 12:11 PM EDT COMPREHENSIVE METABOLIC PANEL Routine 03/21/2025 12:11 PM EDT GLUCOSE, WHOLE BLOOD Routine 03/21/2025 10:55 AM EDT documented in this encounter Results * CT Head w/o Contrast (03/21/2025 1:51 PM EDT) Anatomical Region Laterality Modality Head, Neck Computed Tomogra phy 03/21/2025 1:51 PM EDT Narrative 03/21/2025 1:52 PM EDT [place] [address] [address] Scan Report Signed Patient: Adelso Beebe MR#: [id number] : 1960 Acct:[id number] Age/Sex: 64 / M ADM Date: 03/21/25 Loc: HO.ED Attending Dr: Ordering Physician: Victorino Kong Date of Service: 03/21/25 Procedure(s): CT head/brain wo IV con Accession Number(s): [id number] cc: Victorino Kong; Leta Soto MD Report Number: [id number]: Total DLP = 820.00 mGy-cm CLINICAL HISTORY: altered mental status CT head without contrast Comparison: CT/SR - CT HEAD/BRAIN WO IV CON - 02/28/25 18:03 EDT Findings: No intra-axial mass, midline shift, hydrocephalus, or acute hemorrhage. No significant atrophy-like change or white matter disease. The visualized paranasal sinuses and mastoid air cells are normal. The right globe is diminutive and diffusely hyper attenuating. Previous left globe lens surgery. There is no acute fracture. IMPRESSION: 1. No acute intracranial findings. This document has been electronically signed by: Benjamin Gaytan MD on 03/21/2025 13:51:02 Dictated By: Benjamin Gaytan MD Signed By: <Electronically signed by Benjamin Gaytan MD in OV> 03/21/25 1351 DD/ 50 TD/TT: 03/21/251350 Cash Person: Procedure Note Donotuseinterpreter, Image - 03/21/[address] [place] [address] [address] Scan Report Signed Patient: Adelso Beebe#: [id number] : 1960cct:[id number] Age/Sex: 64 / MADM Date: 03/21/25 Loc: HO.ED Attending Dr: Ordering Physician: Victorino Kong Date of Service: 03/21/25 Procedure(s): CT head/brain wo IV con Accession Number(s): [id number] cc: Victorino Kong; Leta Soto MD Report Number: [id number]: Total DLP = 820.00 mGy-cm CLINICAL HISTORY: altered mental status CT head without contrast Comparison: CT/SR - CT HEAD/BRAIN WO IV CON - 02/28/25 18:03 EDT Findings: No intra-axial mass, midline shift, hydrocephalus, or acute hemorrhage. No significant atrophy-like change or white matter disease. The visualized paranasal sinuses and mastoid air cells are normal. The right globe is diminutive and diffusely hyper attenuating. Previous left globe lens surgery. There is no acute fracture. IMPRESSION: 1. No acute intracranial findings. This document has been electronically signed by: Benjamin Gaytan MD on 03/21/2025 13:51:02 Dictated By: Benjamin Gaytan MD Signed By: <Electronically signed by Benjamin Gaytan MD in OV> 03/21/25 1351 DD/ 1351 TD/TT: 03/21/25 1351 Cash Person: [facility] External Provider IMG CT PROCEDURES Edited Result - Final * Type and screen (03/21/2025 12:18 PM EDT) Blood Type ON [facility] Antibody Screen NEGATIVE [facility] 03/21/2025 12:1 8 PM EDT 03/21/2025 12:23 PM EDT Generic External Data Provider LAB BLOOD BANK TE ST ORDERABLES Final Result Performing Organization Address [facility] Co de Phone Number [facility] [address] [place] [phone] * Ethanol (03/21/2025 12:11 PM EDT) ETHANOL (MG/DL) IN SER/PLAS <10 mg/dL [facility] Comment:Serum/plasma ethanol results are to be used formedical/treatment purposes only. 03/21/2025 12:1 1 PM EDT 03/21/2025 12:14 PM EDT Generic External Data Provider LAB BLOOD ORDERAB LES Final Result Performing Organization Address [facility]/ZIP Co de Phone Number [facility] [address] [place] [phone] * Lipase (03/21/2025 12:11 PM EDT) Lipase 41 8 - 78 U/L [facility] 03/21/2025 12:1 1 PM EDT 03/21/2025 12:14 PM EDT Generic External Data Provider LAB BLOOD ORDERAB LES Final Result Performing Organization Address [facility]/ZIP Co de Phone Number [facility] [address] [place] [address] [phone] * Magnesium (03/21/2025 12:11 PM EDT) Pathologist [facility] Magnesium 2.1 1.6 - 2.6 mg/dL [facility] 03/21/2025 12:1 1 PM EDT 03/21/2025 12:14 PM EDT us Generic External Data Provider LAB BLOOD ORDERAB LES Final Result Performing Organization Address [facility]/ZIP Co de Phone Number [facility] [address] [place] [address] [phone] * (ABNORMAL) Comprehensive Metabolic Panel (03/21/2025 12:11 PM EDT) Pathologist [facility] Sodium 140 135 - 145 mmol/L [facility] Potassium 4.2 3.3 - 5.1 mmol/L [facility] Chloride 110(H) 96 - 108 mmol/L [facility] Carbon Dioxide 25 22 - 29 mmol/L [facility] Anion Gap 9(L) 12 - 20 [facility] Urea Nitrogen (BUN) 15 9 - 16 mg/dL [facility] Creatinine, Serum 0.86 0.5 - 1.4 mg/dL [facility] Creatinine Clr Calc Pharmacy 98.6 [facility] Comment:eGFR (calculated fro m the MDRD study equation) and eCrCl(calculated from the Cockcroft-Gault equation) are based ondifferent parameters and may not yield comparable results.If eCrCl result is absurd, please check patient'sheight/weight. Estimated Glomerular Filt Rate >60 [facility] Comment:Chronic Kidney Disea se: Estimated GFR < 60 mL/min/[id number] Kidney Disease: Estimated GFR < 15 mL/min/1.73m2 Glucose 79 60 - 115 mg/dL [facility] Calcium 8.5 8.4 - 10.2 mg/dL [facility] Bilirubin, Total 1.3(H) 0.0 - 1.0 mg/dL [facility] Aspartate Amino Transferase 47(H) 5 - 37 U/L [facility] Alanine Aminotransferase 30 0 - 40 U/L [facility] Total Protein 6.7 6.5 - 8.0 g/dL [facility] Albumin Level 3.2(L) 3.5 - 5.0 g/dL [facility] Alkaline Phosphatase 142(H) 39 - 117 U/L [facility] 03/21/2025 12:1 1 PM EDT 03/21/2025 12:14 PM EDT Generic External Data Provider LAB BLOOD ORDERAB LES Final Result Performing Organization Address [facility]/ZIP Co de Phone Number [facility] [address] [place] [phone] * Lactic Acid (03/21/2025 12:11 PM EDT) Lactic Acid 1.6 0.5 - 2.0 mmol/L [facility] 03/21/2025 12:1 1 PM EDT 03/21/2025 12:14 PM EDT Generic External Data Provider LAB BLOOD ORDERAB LES Final Result Performing Organization Address [facility]/ZIP Co de Phone Number [facility] [address] [place] [phone] * (ABNORMAL) CBC auto differential (03/21/2025 12:11 PM EDT) White Blood Count 2.5(L) 4.8 - 10.8 X10*3/uL [facility] Red Blood Count 3.77(L) 4.60 - 5.80 X10*6/uL [facility] Hemoglobin 10.5(L) 14.0 - 18.0 g/dl [facility] Hematocrit 31.0(L) 42.0 - 52.0 % [facility] Mean Corpuscular Volume 82.2 80.0 - 98.0 fL [facility] Mean Corpuscular Hemoglobin 27.9 27.0 - 33.0 pg [facility] Mean Corpuscular HGB Conc 33.9 31.0 - 36.0 g/dl [facility] Red Cell Distribution Width 14.5 11.0 - 16.0 % [facility] Platelet Count 28(L) 160 - 400 X10*3/uL [facility] Mean Platelet Volume 12.3 9.4 - 12.4 fL [facility] Neutrophils Percent Auto 54.7 45 - 73 % [facility] Imm Gran Pct Auto 0.4 0.0 - 0.4 % [facility] Lymphocytes Percent Auto 35.0 20 - 40 % [facility] Monocytes Percent Auto 7.9 2 - 11 % [facility] Eosinophils Percent Auto 1.6 0 - 4 % [facility] Basophils Percent Auto 0.4 0 - 2 % [facility] NRBC Pct Auto 0.0 0.0 - 0.2 /100WBC [facility] Neutrophils Absolute Auto 1.4(L) 2.0 - 8.3 x10*3/uL [facility] Imm Gran Abs Auto 0.01 0.00 - 0.03 X10*3/uL [facility] Lymphocytes Absolute Auto 0.9(L) 1.2 - 4.9 X10*3/uL [facility] Monocytes Absolute Auto 0.2 0.1 - 1.2 X10*3/uL [facility] Eosinophils Absolute Auto 0.0 0.0 - 0.4 X10*3/uL [facility] Basophils Absolute Auto 0.0 0.0 - 0.2 X10*3/uL [facility] NRBC Abs Auto 0.000 0.0 - 0.012 X10*3/uL [facility] 03/21/2025 12:1 1 PM EDT 03/21/2025 12:14 PM EDT us Generic External Data Provider LAB BLOOD ORDERAB LES Final Result Performing Organization Address [facility]/ZIP Co de Phone Number [facility] [address] [place] [phone] * (ABNORMAL) Prothrombin Time-INR (03/21/2025 12:11 PM EDT) Prothrombin Time 16.1(H) 10.9 - 12.4 SEC [facility] INTERNATIONAL NORM RATIO 1.4(H) 0.9 - 1.1 [facility] Comment:INTERNATIONAL NORMAL IZED RATIO (INR) REFERENCE RANGES Reference RangeFor patients not on anticoagulant therapy: 0.9 - 1.1INR ranges for oral anticoagulanttherapy:For prevention and treatment of venous thrombosis and pulmonary embolism: 2.0 - 3.0For acute myocardial infarction with aspirin therapy: 2.0 - 3.0For acute myocardial infarction without aspirin therapy: 3.0 - 4.0For patients with mechanical prosthetic heart valves: 2.5 - 3.5 03/21/2025 12:1 1 PM EDT 03/21/2025 12:14 PM EDT us Generic External Data Provider LAB BLOOD ORDERAB LES Final Result Performing Organization Address [facility] Co de Phone Number [facility] [address] [place] [phone] * Urinalysis, Complete, with Reflex to Culture (03/21/2025 12:11 PM EDT) Color Urine Yellow [facility] Appearance Urine Clear [facility] PH 6.0 5.0 - 9.0 [facility] Glucose Urine UA Negative Negative mg/dL [facility] Urine Blood Negative Negative [facility] Specific [place] - Urine 1.010 1.005 - 1.025 [facility] Urine Protein Negative Neg-Trace mg/dL [facility] Urine Ketones Negative Negative mg/dL [facility] Nitrite Urine Negative Negative [facility] Leukocyte Esterase Urine Negative Negative [facility] RBC Urine 0-2 0 - 2 /HPF [facility] Urine WBC 0-5 0 - 5 /HPF [facility] Urine Squamous Epithelial Cell 0-2 0 - 2 /HPF [facility] Urine Bacteria None Seen None Seen [facility] Hyaline Casts, Urine 0-2 0 - 2 /LPF [facility] 03/21/2025 12:1 1 PM EDT 03/21/2025 12:14 PM EDT Narrative [facility] - 03/21/2025 12:28 PM EDT 1158Urine, Clean Catch us Generic External Data Provider LAB URINE ORDERAB LES Final Result Performing Organization Address [facility] Co de Phone Number [facility] [address] [place] [phone] * (ABNORMAL) Ammonia, Plasma (03/21/2025 12:11 PM EDT) Ammonia (P) 67(H) 13 - 55 umol/L [facility] 03/21/2025 12:1 1 PM EDT 03/21/2025 12:14 PM EDT us Generic External Data Provider LAB BLOOD ORDERAB LES Final Result Performing Organization Address [facility] Co de Phone Number [facility] [address] [place] [phone] * Glucose, Whole Blood (03/21/2025 10:55 AM EDT) Glucose, Whole Blood 83 60 - 115 mg/dL [facility] Comment:METER #: [id number] 03/21/2025 10:5 5 AM EDT 03/23/2025 8:12 AM EDT us Generic External Data Provider LAB BLOOD ORDERAB LES Final Result Performing Organization Address [facility] Co de Phone Number [facility] [address] [place] [phone] documented in this encounter Visit Diagnoses Not on filedocumented in this encounter Additional Health Concerns Assessment Noted Time PHQ-9 Depression Total Score: 0 03/12/20 25 10:25 AM EDT documented as of this encounter Care Teams Transit Mechanic Relationship Specialty Start Date End Date Leta Soto MD [address] [place] [phone] PCP - General Internal Medicine 04/11/23 Yajaira Antonio [address] [place] [address] 3rd [place] [address] Gastroenterology 09/04/24 [facility] 01/28/25 documented as of this encounter
[2025-03-24 13:04] VITALS: BP 153/50; PULSE 66; RESP 16; O2SAT 100
[2025-03-24 13:07] LABS: Resp Syncy Virus RNA Qual PCR NEGATIVE (Negative); SARS COV2 PCR INHOUSE NEGATIVE (Negative)
--- NOTE | 2025-03-24 13:41 | ED_ITS ---
HPI - Dizziness General Chief Complaint: Altered Mental Status Stated Complaint: SUDDEN DIZZY/CP,NOW CONFUSED PER EMS Time Seen by Provider: 03/24/25 13:12 Source: patient Limitations: language barrier (French speaking only, [facility] mat packer used) History of Present Illness ED Provider: Dr. 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 Patient states that after taking a iron pill last night he experienced dizziness. He describes the dizziness as an off- balance spinning sensation. He also states that he feels confused in his having trouble with thoughts. Symptoms started at 21:00 hours last night and came on suddenly. He states that the symptoms have been constant. He states that he has had a cough which is nonproductive and he does feel short of breath. He complains of pain in his chest which is worse with coughing and with breathing. Patient denied any dark or black stools but states that he has diarrhea secondary to his medications. The nursing staff did speak to the patient's VNA at the [facility] and the patient is usually oriented to person and place but does have episodes of confusion however they felt that he was more confused than normal and was off balance. Patient was seen in the emergency department on 03/21/2025 for altered mental status and agitation. Patient was treated with Ativan at that time and his workup was unremarkable including which is relatively low for this patient and a CT scan of the brain which was unremarkable. Related Data Home Medications ?Medication ?Instructions ?Recorded ?Confirmed amlodipine 5 mg tablet 5 mg PO DAILY 12/03/2403/10 furosemide 40 mg tablet 40 mg PO DAILY 12/03/2410/04 clotrimazole 1 % topical cream 1 appl topical BID 02/0803/10/25 Previous Rx's ?Medication ?Instructions ?Recorded walker #1 ea 02/08/25 rifaximin 550 mg tablet (Xifaxan) 550 mg PO TID #90 ta bs 02/16/25 carvedilol 3.125 mg tablet 3.125 mg PO BID #60 tabs lactulose 10 gram/15 mL oral 20 g (30 mL) PO TID #1,35 0 mL 03/02/25 solution Allergies Allergy/AdvReac Type Severity Reaction Status Date / Time dicyclomine (From Bentyl) Allergy Unknown Verified 03/24/25 11:21 aspirin AdvReac Severe stomach Verified 03/24/25 11:21 bleeding NSAIDS (Non-Steroidal AdvReac Severe liver Verified 03/24/25 11:21 Anti-Inflamma concerns Review of Systems 2 Review of Systems: Yes all other systems are reviewed and are negative [facility] Past Medical History [facility] Narrative: Social history: The patient does smoke cigarettes. Denies alcohol and drug use. He states Medical History Obesity (BMI 30.0-34.9) Cirrhosis of liver Fall Pancytopenia Hepatic encephalopathy Portal vein thrombosis Cirrhosis Splenic vein thrombosis Sepsis Cirrhosis of liver with ascites Abdominal pain Thrombocytopenia Pancytopenia Cirrhosis Hepatitis C virus infection Esophageal varices Pancytopenia Iron deficiency anemia Cirrhosis Hepatitis C HBP (high blood pressure) Surgical History S/P TIPS (transjugular intrahepatic portosystemic shunt) H/O left inguinal hernia repair H/O eye surgery History of esophagogastroduodenoscopy (EGD) H/O colonoscopy Family History Family History Maternal Grandmother Breast CA Uterus cancer Mother Primary lung cancer of unknown cell type Social History Social History Household Members: Unknown / Unable to assess Household Members Other:: [facility] Housing: Other Housing Other:: Hotel Are you a primary senior resident care director to a significant other at home: No Do you presently have visiting nurse or other home services: Yes (VNA) Unable to assess alcohol history related to: Unknown Alcohol intake: former Comment: pt refusing alarm's Patient Tobacco Use Status: Current everyday Tobacco user Tobacco use type: Cigarette Cigarette Packs Per Day: 1 Cigarettes Per Day: 4 Years Smoked: 30 Smoked in Last 30 Days: Yes e-Cigarette/Vaping Use: Currently Using Second Hand Smoke Exposure: No Use of substances other than those prescribed or required for medical reasons: No Substance Use Type: Crack/Cocaine and Marijuana Advance Directives: Yes Advance Directives on File: Yes Advance Directives Date on File: 04/02/24 Do you have a plan to hurt others: No Plan service: No Current occupational status: retired Physical Exam 2 Vital Signs: Vital Signs: Last Vital Signs Temp 97.8 F 03/24/25 19:25 Pulse 66 03/24/25 19:25 Resp 20 03/24/25 19:25 BP 139/61 03/24/25 19:25 Pulse Ox 100 03/24/25 19:25 O2 Del Method Room Air 03/24/25 19:25 BMI result Body Mass Index 31.3 Vital signs revealed an elevated blood pressure otherwise unremarkable Exam: General: Awake, alert in no distress, oriented to person, he knows that he is at [facility]. He answers questions appropriately Head: Normocephalic, atraumatic EENT: Right eye in you can related, left eye pupil 4 mm and reactive, Lids normal, sclera normal, conjunctiva normal, nose normal , ears normal, throat without erythema or exudates Neck: Supple, no adenopathy Lung: breath sounds symmetric, no wheezing, rales or rhonchi Chest: symmetric movement, nontender Heart: regular rate and rhythm, normal S1, S2 no murmurs or rubs Abdomen: soft, non-tender, nondistended, normal bowel sounds Back: no vertebral tenderness, no CVAT Extremities: no deformities, moves all extremities symmetrically, trace pitting edema, bilaterally symmetric Neuro: General: ?Awake, alert, oriented to person and place, normal speech Cranial nerves: ?Cranial nerves ?intact Strength: ?Moves all extremities symmetrically, strength 5/5 Cerebellar: ?Poor hquxiz-kj-iaxl-to-finger, poor rapid finger movement, can not perform heel to hebert, gait is ataxic Psych: Pleasant, cooperative Medications Administered Discontinued Medications Generic Name Dose Route Start Last Admin Trade Name Freq PRN Reason Stop Dose Admin Sodium Chloride 1,000 mls @ 999 mls/hr 03/24/25 13:45 03/24/25 16:11 Ns IV 03/24/25 14:45 Infused .Q1H1M STA Infusion Meclizine HCl 25 mg 03/24/25 13:45 03/24/25 14:40 Meclizine Hcl 25 Mg Tablet PO 03/24/25 13:46 25 mg ONCE STA Administration Ondansetron HCl 4 mg 03/24/25 13:45 03/24/25 14:41 Ondansetron Hcl 4 Mg/2 Ml Vial IVPUSH 03/24/25 13:46 4 mg ONCE ONE Administration Medical Decision Making Medical Decision Making [facility] Narrative: 64-year-old male with past medical history significant for hepatitis-C, liver cirrhosis, chronic thrombocytopenia, hepatic encephalopathy, 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 Patient states that after taking a iron pill last night he experienced dizziness. He describes the dizziness as an off- balance spinning sensation. He also states that he feels confused in his having trouble with thoughts. Symptoms started at 21:00 hours last night and came on suddenly. He states that the symptoms have been constant. He states that he has had a cough which is nonproductive and he does feel short of breath. He complains of pain in his chest which is worse with coughing and with breathing. Patient denied any dark or black stools but states that he has diarrhea secondary to his medications. The nursing staff did speak to the patient's VNA at the [place] [facility] and the patient is usually oriented to person and place but does have episodes of confusion however they felt that he was more confused than normal and was off balance. Vital signs revealed an elevated blood pressure otherwise unremarkable. Examination was concerning for cerebellar signs with poor ihkwfi-ni-ddju-to-finger, poor rapid finger movement and ataxic gait. Differential diagnosis: ?Includes but is not limited to stroke, cerebellar stroke, electrolyte abnormalities, anemia, hepatic encephalopathy, alcohol intoxication, electrolyte abnormalities, anemia Course: 14:07 My independent interpretation patient's laboratory evaluation is as follows: Chronic pancytopenia with WBC 2.2, H&H and I 0.5 and 29.1 and platelet count 25,000. Elevated sodium 147. Elevated chloride 115. Normal BUN and creatinine. Low total protein and albumin 6.2 and 2.9. Elevated alk-phos 119. Elevated bilirubin 1.1. COVID-19, influenza and RSV tests were negative. Alcohol was below detectable limits. Given the patient's symptom of dizziness/spinning sensation, confusion, cerebellar signs and negative workup from [address] days [address] including negative [address] scan, I am concerned that the patient may have had a cerebellar stroke. I did order an MRI of the brain without IV contrast. Patient will also be treated with normal saline IV x1 L, Zofran 4 mg IV and meclizine 25 mg IV. 20:34 MRI of the brain did not reveal any evidence for acute cerebellar stroke, he does have white matter changes consistent with chronic small-vessel ischemia. Patient's ammonia level was elevated at 171 this is compared to ammonia level of 67 on 03/21/2025. The patient has had multiple admissions in the past for hepatic encephalopathy felt to be secondary to noncompliance with his 03/01/2025 where he was treated with lactulose t.i.d. with improvement of his confusion. Patient was ordered to get lactulose 30 g orally. 20:43 I did discuss admission with the covering hospitalist, Dr. Cohn and the patient will be admitted for further treatment. Admission/Observation Consideration of admission/observation: Escalation of care including admission/observation considered (Yes) Consult Healthcare Provider Management of the patient was discussed with: Hospitalist Lab Data MDM Lab Attestation statement: I reviewed the patient's lab results. 03/24/25 12:13 03/24/25 12:13 Labs: Lab Results 03/24/25 03/24/25 03/24/25 Range/Units 12:13 14:02 14:32 WBC 2.2 L (4.8-10.8) X10*3/uL RBC 3.47 L (4.60-5.80) X10*6/uL Hgb 9.5 L (14.0-18.0) g/dl Hct 29.1 L (42.0-52.0) % MCV 83.9 (80.0-98.0) fL MCH 27.4 (27.0-33.0) pg MCHC 32.6 (31.0-36.0) g/dl RDW 14.5 (11.0-16.0) % Plt Count 25 L (160-400) X10*3/uL MPV TNP Immature Gran % (Auto) 0.0 (0.0-0.4) % Neut % (Auto) 54.5 (45-73) % Lymph % (Auto) 32.6 (20-40) % [place] % (Auto) 11.2 H (2-11) % Eos % (Auto) 1.3 (0-4) % Baso % (Auto) 0.4 (0-2) % Lymph # (Auto) 0.7 L (1.2-4.9) X10*3/uL [place] # (Auto) 0.3 (0.1-1.2) X10*3/uL Eos # (Auto) 0.0 (0.0-0.4) X10*3/uL Baso # (Auto) 0.0 (0.0-0.2) X10*3/uL Abs Immat Gran (auto) 0.00 (0.00-0.03) X10*3/uL Absolute Neuts (auto) 1.2 L (2.0-8.3) x10*3/uL Absolute Nucleated RBC 0.000 (0.0-0.012) X10*3/uL Nucleated RBC % (auto) 0.0 (0.0-0.2) /100WBC Smear Tech's Comments VERIFIED VBG pH 7.54 H (7.32-7.43) VBG pCO2 25 mmHg VBG pO2 99 mmHg VBG HCO3 21 L (22-26) mmol/L VBG O2 Saturation 100.0 % VBG Base Excess 0.3 mmol/L Sodium 147 H (135-145) mmol/L Potassium 4.5 (3.3-5.1) mmol/L Chloride 115 H (96-108) mmol/L Carbon Dioxide 26 (22-29) mmol/L Anion Gap 11 L (12-20) BUN 14 (9-16) mg/dL Creatinine 0.78 (0.5-1.4) mg/dL Estim Creat Clear Calc 107.5 Estimated GFR > 60 Random Glucose 93 (60-115) mg/dL Calcium 8.9 (8.4-10.2) mg/dL Total Bilirubin 1.1 H (0.0-1.0) mg/dL AST 44 H (5-37) U/L ALT 28 (0-40) U/L Alkaline Phosphatase 119 H (39-117) U/L Ammonia 171 H (13-55) umol/L Total Protein 6.2 L (6.5-8.0) g/dL Albumin 2.9 L (3.5-5.0) g/dL Ethyl Alcohol < 10 mg/dL Influenza Type A (PCR) NEGATIVE (Negative) Influenza Type B (PCR) NEGATIVE (Negative) RSV RNA Qual (PCR) NEGATIVE (Negative) SARS-CoV-2 RNA (RT-PCR) NEGATIVE (Negative) Independent Interpretation I performed an independent interpretation of an: EKG Interpretation: My independent interpretation patient's 12 EKG done on 03/24/2025 at 11:21 hours is as follows: Normal sinus rhythm with a rate of 76, no ST segment elevation, no ST segment depression, no significant T-wave abnormalities, no PACs, no PVCs, when compared to an EKG on 03/21/2025 at 11:45 hours, there is no significant change. Radiology Impression Discussion of test interpretation with radiology: I have reviewed the radiologist's reading. Radiologist Impression: MR Brain without gadolinium Comparison: CT/REG/SR - HEAD HEAD_WITHOUT (ADULT) - 03/21/25 12:37 EDT Findings: The ventricles and subarachnoid spaces are normal in size in the ventricles are normal in position with no midline shift or herniation. No intra-axial or extra-axial hemorrhage. No restricted diffusion. No territorial infarct. Bilateral scattered supratentorial white matter hyperintense foci seen on T2 weighted and FLAIR sequences, nonspecific but most suggestive of mild chronic small-vessel ischemic changes. No focal mass lesion or mass effect. Midline structures are grossly normal. Flow voids are maintained within the major vessels of the base of the brain. Right globe prosthesis and right enophthalmos. Left orbital contents within appear normal. The sinuses and mastoid air cells are clear. No focal bone lesion. IMPRESSION: 1. No acute findings. 2. Mild nonspecific supratentorial white matter hyperintense foci most suggestive of chronic small-vessel ischemic changes. This document has been electronically signed by: Daphne Jensen MD on 03/24/2025 18:18:05 External Record Review External record reviewed: Inpatient record Chronic Conditions Patient?s care impacted by: Other (Liver cirrhosis) Critical Care Time Critical Care Time Critical Care Time: Yes Total Critical Care Time: 45 Attestation: Critical Care: The patient was critically ill with a high probability of imminent or life threatening deterioration. I spent greater than 30 minutes of discontinuous time evaluating the patient,delivering critical care at the bedside, discussing and evaluating pertinent data with consultants. Critical care time does not include time spent performing separately billable procedures or teaching. Total time spent performing critical care was 45 minutes. Discharge Plan Discharge Print Language: Tanzanian
[2025-03-24 14:19] LABS: Ammonia 171 umol/L (13-55)
[2025-03-24 14:36] LABS: Venous Blood Gas Refer to POC result
[2025-03-24 14:38] LABS: VBG HCO3 21 mmol/L (22-26); VBG O2 % Saturation 100.0 %
[2025-03-24 15:39] VITALS: BP 132/46; PULSE 65; RESP 18; TEMP 36.4; O2SAT 100
[2025-03-24 19:25] VITALS: BP 139/61; PULSE 66; RESP 20; TEMP 36.6; O2SAT 100
--- NOTE | 2025-03-24 21:10 | PHA.MEDREC ---
Addendum entered by Anmol Guillen RPh 03/24/25 21:31: MED REC CHECKED BY [facility] Original Note: Pharmacy Consult ? Medication Reconciliation Pharmacy has completed the medication reconciliation. Patient is a poor historian. Utilized claims and discharge packet from 03/02/25.
--- NOTE | 2025-03-24 21:31 | PM.IMHP ---
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 The patient reports after taking his iron fell last night he started to experience dizziness and off balance spinning sensation. He also has been having confusion and trouble with his thoughts. Symptoms began around 21:00 last night and came on suddenly. Symptoms have been constant. He also describes a productive cough but is unsure what color the sputum is. He complains of chest pain worse with coughing. He denies any nausea, vomiting, fever or chills. He has had a lot of diarrhea with the lactulose that he reports he has been taking regularly but denies any black or bloody stools. Per ED note the nursing staff did speak with the patient's A residential and the patient is usually oriented to person and place, but does have episodes of confusion, however they felt that he was more confused than normal and was off balance. The pt is a poor historian and intermittently confused. Review of Systems Constitutional: Constitutional: Denies chills, Denies fatigue, Denies fever(s) and Denies headache(s) Eyes: Eyes: Denies change in vision ENT: Denies headache(s) Cardiovascular: Cardiovascular: Reports chest pain, Denies rapid heart rate, Denies leg edema, Denies lightheadedness and Denies dyspnea Respiratory: Respiratory: Reports chest congestion, Reports cough, Denies dyspnea and Denies wheezing Gastrointestinal: Gastrointestinal: Denies abdominal pain, Denies melena, Denies hematochezia, Denies constipation, Reports diarrhea and Denies vomiting Genitourinary: Genitourinary: Denies dysuria and Denies urinary urgency Musculoskeletal: Musculoskeletal: Denies back pain Integumentary/Breasts: Skin/Breast: Denies rash Neurologic: Reports confusion and Denies headache(s) Psychiatric: Psychiatric: Reports confusion Endocrine: Endocrine: Denies fatigue Hematologic/Lymphatic: Hematologic/Lymphatic: Denies easy bleeding and Denies easy bruising Allergic/Immunologic: Allergic/Immunologic: Denies wheezing [facility] Medical History (Updated 03/24/25 @ 22:06 by Judy Flores PA-C) Obesity (BMI 30.0-34.9) Cirrhosis of liver Fall Pancytopenia Hepatic encephalopathy Portal vein thrombosis Cirrhosis Splenic vein thrombosis Sepsis Cirrhosis of liver with ascites Abdominal pain Thrombocytopenia Pancytopenia Cirrhosis Hepatitis C virus infection Esophageal varices Pancytopenia Iron deficiency anemia Cirrhosis Hepatitis C HBP (high blood pressure) Functional capacity: independent ambulation Family History Maternal Grandmother Breast CA Uterus cancer Mother Primary lung cancer of unknown cell type Surgical History S/P TIPS (transjugular intrahepatic portosystemic shunt) H/O left inguinal hernia repair H/O eye surgery History of esophagogastroduodenoscopy (EGD) H/O colonoscopy Social History Household Members: Unknown / Unable to assess Household Members Other:: residential Housing: Other Housing Other:: Hotel Are you a primary reproductive healthcare assistant to a significant other at home: No Do you presently have visiting nurse or other home services: Yes (VNA) Unable to assess alcohol history related to: Unknown Alcohol intake: former Comment: pt refusing alarm's Patient Tobacco Use Status: Current everyday Tobacco user Tobacco use type: Cigarette Cigarette Packs Per Day: 1 Cigarettes Per Day: 4 Years Smoked: 30 Smoked in Last 30 Days: Yes e-Cigarette/Vaping Use: Currently Using Second Hand Smoke Exposure: No Use of substances other than those prescribed or required for medical reasons: No Substance Use Type: Crack/Cocaine and Marijuana Advance Directives: Yes Advance Directives on File: Yes Advance Directives Date on File: 04/02/24 Do you have a plan to hurt others: No Plan service: No Current occupational status: retired Narrative: smokes, amount unclear. no etoh or drug use Meds Allergies Allergy/AdvReac Type Severity Reaction Status Date / Time dicyclomine (From Bentyl) Allergy Unknown Verified 03/24/25 11:21 aspirin AdvReac Severe stomach Verified 03/24/25 11:21 bleeding NSAIDS (Non-Steroidal AdvReac Severe liver Verified 03/24/25 11:21 Anti-Inflamma concerns Active Medications: Current Medications Amlodipine Besylate (Amlodipine Besylate 5 Mg Tablet) 5 mg PO DAILY [facility]; Protocol Carvedilol (Carvedilol 3.125 Mg Tablet) 3.125 mg PO BID [facility]; Protocol Furosemide (Furosemide 40 Mg Tablet) 40 mg PO DAILY [facility]; Protocol Lactulose (Lactulose 20 Gm/30 Ml Solution) 30 gm PO TID [facility] Non-Formulary Medication (Ferrous Gluconate) 324 mg PO 3XW [facility] Rifaximin (Rifaximin 550 Mg Tablet) 550 mg PO TID [facility] Home Medications ?Medication ?Instructions ?Recorded ?Confirmed ?Last Taken ?Type amlodipine 5 mg tablet 5 mg PO DAILY 12/03/24 03/24/25 Unknown History furosemide 40 mg tablet 40 mg PO DAILY 12/03/24 03/24/25 Unknown History clotrimazole 1 % topical cream 1 appl topical BID 02/26/25 03/24/25 Unknown History ferrous gluconate 324 mg (38 mg 324 mg PO 3XW 03/24/25 03/24/25 Unknown History iron) tablet lactulose 10 gram/15 mL oral 45 ml PO TID 03/24/25 03/24/25 Unknown History solution Physical Exam Vital Signs and Narrative: Vital Signs: Last Vital Signs Temp 97.8 F 03/24/25 19:25 Pulse 66 03/24/25 19:25 Resp 20 03/24/25 19:25 BP 139/61 03/24/25 19:25 Pulse Ox 100 03/24/25 19:25 O2 Del Method Room Air 03/24/25 19:25 BMI result Body Mass Index 31.3 General: Alert and orietnted to person and place, recognizes staff members from previous admissions, no acute distress Resp: CTA bilaterally, no wheezing or crackles CVS: S1, S2, RRR GI: +BS, NT, no distention Skin: Warm, dry Neuro: Cranial nerves II-XII grossly intact bilaterally. Motor grossly intact bilaterally. no asterixis. reported ataxic gait and poor finger to nose coordination. Extremities: No pitting edema Psych: Appropriate affect, forgetful. Const: General: confusion Orientation/consciousness: confusion Neuro: General: confusion Results Labs 03/24/25 12:13 03/24/25 12:13 Labs: Laboratory Results - last 24 hr 03/24/25 03/24/2525 12:13 14:02 14:32 MCV 83.9 MCH 27.4 MCHC 32.6 RDW 14.5 Plt Count 25 L MPV TNP Immature Gran % (Auto) 0.0 Neut % (Auto) 54.5 Lymph % (Auto) 32.6 [place] % (Auto) 11.2 H Eos % (Auto) 1.3 Baso % (Auto) 0.4 Lymph # (Auto) 0.7 L [place] # (Auto) 0.3 Eos # (Auto) 0.0 Baso # (Auto) 0.0 Abs Immat Gran (auto) 0.00 Absolute Neuts (auto) 1.2 L Absolute Nucleated RBC 0.000 Nucleated RBC % (auto) 0.0 Smear Tech's Comments VERIFIED VBG pH 7.54 H VBG pCO2 25 VBG pO2 99 VBG HCO3 21 L VBG O2 Saturation 100.0 VBG Base Excess 0.3 Anion Gap 11 L Estim Creat Clear Calc 107.5 Estimated GFR > 60 Random Glucose 93 Calcium 8.9 Total Bilirubin 1.1 H AST 44 H ALT 28 Alkaline Phosphatase 119 H Ammonia 171 H Total Protein 6.2 L Albumin 2.9 L Ethyl Alcohol < 10 Influenza Type A (PCR) NEGATIVE Influenza Type B (PCR) NEGATIVE RSV RNA Qual (PCR) NEGATIVE SARS-CoV-2 RNA (RT-PCR) NEGATIVE Assessment and Plan (1) Hepatic encephalopathy: Status: Acute (2) Hyperammonemia: Status: Acute (3) Chest pain: Status: Acute (4) Dizziness: Status: Acute (5) Pancytopenia: Status: Acute (6) Thrombocytopenia: Status: Chronic (7) Obesity (BMI 30.0-34.9): Status: Chronic (8) Tobacco use disorder: Status: Acute Plan Pt is a 64-year-old [place]an-speaking male with past medical history significant for hepatitis-C, liver cirrhosis, chronic thrombocytopenia, hepatic encephalopathy, 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 Hepatic encephalopathy secondary to hyperammonemia from hep C/liver cirrhosis - ammonia elevated at 171 - LFTs at baseline - patient denies any alcohol use, alcohol level less than 10 - no asterixis however ataxic gait noted - brain MRI normal - given 1 dose lactulose in ED - continue lactulose TID and rifaximin TID - recheck ammonia in AM chest pain/dizziness - EKG with NSR - trop pending - chest xray negative - Na 147, chloride 115, slight dehydration - given meclizine in ED with ?improvement, unclear - given 1L NS in ED - monitor on tele - check orthostatics in AM pancytopenia/thrombocytopenia - at baseline class 1 obesity - BMI 31.3 - weight loss encouraged tobacco use disorder - smoking cessation encouraged - offered NRT, pt declined full code VTE prophy: Pneumoboots due to thrombocytopenia Patient with acute hepatic encephalopathy secondary to hyperammonemia from hepatitis-C/liver cirrhosis, complicated by chest pain and dizziness, requiring admission for at least 2 midnight stay for monitoring and further evaluation. Quality Stroke Does the patient have a stroke diagnosis?: No VTE Prior VTE?: No VTE Risk Level:: Medical - moderate - high VTE Device Contraindication: N/A - Device Ordered VTE Drug Contraindication: Treatment Not Indicated
[2025-03-24 21:50] LABS: Magnesium 2.0 mg/dL (1.6-2.6)
[2025-03-24 22:53] LABS: Troponin-I High Sensitivity 16.9 ng/L (<3.5-35.0)
--- NOTE | 2025-03-24 23:22 | PC.NURSE ---
This narrative writer assumed care of this Pt at 2300.
[2025-03-25] VITALS (11 sets, daily range): BP systolic 115–173; BP diastolic 41–80; PULSE 60–68; RESP 16–20; TEMP 36.7–37; O2SAT 96–100; BMI 33.0
[2025-03-25] MEDS: 0.9 % Sodium Chloride Flush 3 ML SYRINGE IVFLUSH ×4 (00:07→20:52)
[2025-03-25 04:30] LABS: Ammonia 104 umol/L (13-55)
[2025-03-25 05:11] LABS: Imm Gran Abs Auto 0.00 X10*3/uL (0.00-0.03); Imm Gran Pct Auto 0.0 % (0.0-0.4); MANUAL DIFF FLAG SCAN; NRBC Abs Auto 0.000 X10*3/uL (0.0-0.012); NRBC Pct Auto 0.0 /100WBC (0.0-0.2); SCAN SMEAR FLAG 1
[2025-03-25 05:13] LABS: Hematocrit 27.1 % (42.0-52.0); Hemoglobin 9.0 g/dl (14.0-18.0); Lymphocytes Absolute Auto 0.8 X10*3/uL (1.2-4.9); Mean Corpuscular HGB Conc 33.2 g/dl (31.0-36.0); Mean Corpuscular Hemoglobin 27.5 pg (27.0-33.0); Mean Corpuscular Volume 82.9 fL (80.0-98.0); PLT ABN DIST 1; Platelet Count 24 X10*3/uL (160-400); Red Blood Count 3.27 X10*6/uL (4.60-5.80); White Blood Count 1.9 X10*3/uL (4.8-10.8)
[2025-03-25 05:25] LABS: Anion Gap 9 (12-20); Blood Urea Nitrogen 12 mg/dL (9-16); Calcium 8.1 mg/dL (8.4-10.2); Carbon Dioxide 21 mmol/L (22-29); Chloride 118 mmol/L (96-108); Creatinine Clr Calc Pharmacy 90.1; Estimated Glomerular Filt Rate > 60; Magnesium 2.0 mg/dL (1.6-2.6); Potassium 4.2 mmol/L (3.3-5.1); Sodium 144 mmol/L (135-145)
--- OUTSIDE RECORDS SUMMARY | 2025-03-25 05:34 | XMS_ITS | Encounter Summary ---
Author Organization [employer] Address [address] [place] [address] Care Team Providers Care Continuous Process Machine Operator Name Role Phone Leta Soto [...] Description 06/09/2025 9:45 AM EDT Office Visit [facility] [address] [place] [phone] Leta Soto MD [address] [place], [place] [phone] documented as of this encounter Goals Goal [...] PM EDT Narrative 03/21/2025 1:52 PM EDT [place] [id number] [address] Scan Report Signed Patient: Adelso Beebe MR#: [id number] : 1960 Acct:[id number] Age/Sex: 64 / M ADM Date: 03/21/25 Loc: HO.ED Attending Dr: Ordering Physician: Victorino Kong Date of Service: 03/21/25 Procedure(s): CT head/brain wo IV con Accession Number(s): [id number] cc: Victorino Kong; Leta Soto MD Report Number: [id number]: Total DLP = 820.00 mGy-cm CLINICAL HISTORY: [...] OV> 03/21/25 1351 DD/ 50 TD/TT: 03/21/251350 Credit Control Manager: Procedure Note Donotuseinterpreter, Image - 03/21/[address] [place] [address] [address] Scan Report Signed Patient: Adelso Beebe#: [id number] : 1960cct:[id number] Age/Sex: 64 / MADM Date: 03/21/25 Loc: HO.ED Attending Dr: Ordering Physician: Victorino Kong Date of Service: 03/21/25 Procedure(s): CT head/brain wo IV con Accession Number(s): [id number] cc: Victorino Kong; Leta Soto MD Report Number: [id number]: Total DLP = 820.00 mGy-cm CLINICAL HISTORY: [...] 03/21/25 1351 DD/ 1351 TD/TT: 03/21/25 1351 Credit Control Manager: [facility] External Provider IMG CT PROCEDURES Edited Result - Final * Type and screen (03/21/2025 12:18 PM EDT) Blood Type ON [facility] Antibody Screen NEGATIVE [facility] 03/21/2025 12:1 8 PM EDT 03/21/2025 12:23 PM EDT Generic External Data Provider LAB BLOOD BANK TE ST ORDERABLES Final Result Performing Organization Address [facility] Co de Phone Number [facility] [address] [place] [phone] * Ethanol (03/21/2025 12:11 PM EDT) ETHANOL (MG/DL) IN SER/PLAS <10 mg/dL [facility] Comment:Serum/plasma ethanol results are to be used formedical/treatment purposes only. 03/21/2025 12:1 1 PM EDT 03/21/2025 12:14 PM EDT Generic External Data Provider LAB BLOOD ORDERAB LES Final Result Performing Organization Address [facility]/ZIP Co de Phone Number [facility] [address] [place] [phone] * Lipase (03/21/2025 12:11 PM EDT) Lipase 41 8 - 78 U/L [facility] 03/21/2025 12:1 1 PM EDT 03/21/2025 12:14 PM EDT Generic External Data Provider LAB BLOOD ORDERAB LES Final Result Performing Organization Address [facility]/ZIP Co de Phone Number [facility] [address] [place] [phone] * Magnesium (03/21/2025 12:11 PM EDT) Pathologist [facility] Magnesium 2.1 1.6 - 2.6 mg/dL [facility] 03/21/2025 12:1 1 PM EDT 03/21/2025 12:14 PM EDT us Generic External Data Provider LAB BLOOD ORDERAB LES Final Result Performing Organization Address [facility]/ZIP Co de Phone Number [facility] [address] [place] [phone] * (ABNORMAL) Comprehensive Metabolic Panel (03/21/2025 12:11 PM EDT) Pathologist [facility] Sodium 140 135 - 145 mmol/L [facility] Potassium 4.2 3.3 - 5.1 mmol/L [facility] Chloride 110(H) 96 - 108 mmol/L [facility] Carbon Dioxide 25 22 - 29 mmol/L [facility] Anion Gap 9(L) 12 - 20 [facility] Urea Nitrogen (BUN) 15 9 - 16 mg/dL [facility] Creatinine, Serum 0.86 0.5 - 1.4 mg/dL [facility] Creatinine Clr Calc Pharmacy 98.6 [facility] Comment:eGFR (calculated fro m the MDRD study equation) and eCrCl(calculated from the Cockcroft-Gault equation) are based ondifferent parameters and may not yield comparable results.If eCrCl result is absurd, please check patient'sheight/weight. Estimated Glomerular Filt Rate >60 [facility] Comment:Chronic Kidney Disea se: Estimated GFR < 60 mL/min/[id number] Kidney Disease: Estimated GFR < 15 mL/min/1.73m2 Glucose 79 60 - 115 mg/dL [facility] Calcium 8.5 8.4 - 10.2 mg/dL [facility] Bilirubin, Total 1.3(H) 0.0 - 1.0 mg/dL [facility] Aspartate Amino Transferase 47(H) 5 - 37 U/L [facility] Alanine Aminotransferase 30 0 - 40 U/L [facility] Total Protein 6.7 6.5 - 8.0 g/dL [facility] Albumin Level 3.2(L) 3.5 - 5.0 g/dL [facility] Alkaline Phosphatase 142(H) 39 - 117 U/L [facility] 03/21/2025 12:1 1 PM EDT 03/21/2025 12:14 PM EDT Generic External Data Provider LAB BLOOD ORDERAB LES Final Result Performing Organization Address [facility]/ZIP Co de Phone Number [facility] [address] [place] [phone] * Lactic Acid (03/21/2025 12:11 PM EDT) Lactic Acid 1.6 0.5 - 2.0 mmol/L [facility] 03/21/2025 12:1 1 PM EDT 03/21/2025 12:14 PM EDT Generic External Data Provider LAB BLOOD ORDERAB LES Final Result Performing Organization Address [facility]/ZIP Co de Phone Number [facility] [address] [place] [phone] * (ABNORMAL) CBC auto differential (03/21/2025 12:11 PM EDT) White Blood Count 2.5(L) 4.8 - 10.8 X10*3/uL [facility] Red Blood Count 3.77(L) 4.60 - 5.80 X10*6/uL [facility] Hemoglobin 10.5(L) 14.0 - 18.0 g/dl [facility] Hematocrit 31.0(L) 42.0 - 52.0 % [facility] Mean Corpuscular Volume 82.2 80.0 - 98.0 fL [facility] Mean Corpuscular Hemoglobin 27.9 27.0 - 33.0 pg [facility] Mean Corpuscular HGB Conc 33.9 31.0 - 36.0 g/dl [facility] Red Cell Distribution Width 14.5 11.0 - 16.0 % [facility] Platelet Count 28(L) 160 - 400 X10*3/uL [facility] Mean Platelet Volume 12.3 9.4 - 12.4 fL [facility] Neutrophils Percent Auto 54.7 45 - 73 % [facility] Imm Gran Pct Auto 0.4 0.0 - 0.4 % [facility] Lymphocytes Percent Auto 35.0 20 - 40 % [facility] Monocytes Percent Auto 7.9 2 - 11 % [facility] Eosinophils Percent Auto 1.6 0 - 4 % [facility] Basophils Percent Auto 0.4 0 - 2 % [facility] NRBC Pct Auto 0.0 0.0 - 0.2 /100WBC [facility] Neutrophils Absolute Auto 1.4(L) 2.0 - 8.3 x10*3/uL [facility] Imm Gran Abs Auto 0.01 0.00 - 0.03 X10*3/uL [facility] Lymphocytes Absolute Auto 0.9(L) 1.2 - 4.9 X10*3/uL [facility] Monocytes Absolute Auto 0.2 0.1 - 1.2 X10*3/uL [facility] Eosinophils Absolute Auto 0.0 0.0 - 0.4 X10*3/uL [facility] Basophils Absolute Auto 0.0 0.0 - 0.2 X10*3/uL [facility] NRBC Abs Auto 0.000 0.0 - 0.012 X10*3/uL [facility] 03/21/2025 12:1 1 PM EDT 03/21/2025 12:14 PM EDT us Generic External Data Provider LAB BLOOD ORDERAB LES Final Result Performing Organization Address [facility]/ZIP Co de Phone Number [facility] [address] [place] [phone] * (ABNORMAL) Prothrombin Time-INR (03/21/2025 12:11 PM EDT) Prothrombin Time 16.1(H) 10.9 - 12.4 SEC [facility] INTERNATIONAL NORM RATIO 1.4(H) 0.9 - 1.1 [facility] Comment:INTERNATIONAL NORMAL IZED RATIO (INR) REFERENCE [...] ORDERAB LES Final Result Performing Organization Address [facility] Co de Phone Number [facility] [address] [place] [phone] * Urinalysis, Complete, with Reflex to Culture (03/21/2025 12:11 PM EDT) Color Urine Yellow [facility] Appearance Urine Clear [facility] PH 6.0 5.0 - 9.0 [facility] Glucose Urine UA Negative Negative mg/dL [facility] Urine Blood Negative Negative [facility] Specific [place] - Urine 1.010 1.005 - 1.025 [facility] Urine Protein Negative Neg-Trace mg/dL [facility] Urine Ketones Negative Negative mg/dL [facility] Nitrite Urine Negative Negative [facility] Leukocyte Esterase Urine Negative Negative [facility] RBC Urine 0-2 0 - 2 /HPF [facility] Urine WBC 0-5 0 - 5 /HPF [facility] Urine Squamous Epithelial Cell 0-2 0 - 2 /HPF [facility] Urine Bacteria None Seen None Seen [facility] Hyaline Casts, Urine 0-2 0 - 2 /LPF [facility] 03/21/2025 12:1 1 PM EDT 03/21/2025 12:14 PM EDT Narrative [facility] - 03/21/2025 12:28 PM EDT 1158Urine, Clean Catch us Generic External Data Provider LAB URINE ORDERAB LES Final Result Performing Organization Address [facility] Co de Phone Number [facility] [address] [place] [address] [phone] * (ABNORMAL) Ammonia, Plasma (03/21/2025 12:11 PM EDT) Ammonia (P) 67(H) 13 - 55 umol/L [facility] 03/21/2025 12:1 1 PM EDT 03/21/2025 12:14 PM EDT us Generic External Data Provider LAB BLOOD ORDERAB LES Final Result Performing Organization Address [facility] Co de Phone Number [facility] [address] [place] [address] [phone] * Glucose, Whole Blood (03/21/2025 10:55 AM EDT) Glucose, Whole Blood 83 60 - 115 mg/dL [facility] Comment:METER #: [id number] 03/21/2025 10:5 5 AM EDT 03/23/2025 8:12 AM EDT us Generic External Data Provider LAB BLOOD ORDERAB LES Final Result Performing Organization Address [facility] Co de Phone Number [facility] [address] [place] [address] [phone] documented in this encounter Visit Diagnoses Not on filedocumented in this encounter Additional Health Concerns Assessment Noted Time PHQ-9 Depression Total Score: 0 03/12/20 25 10:25 AM EDT documented as of this encounter Care Teams Continuous Process Machine Operator Relationship Specialty Start Date End Date Leta Soto MD [address] [place] [phone] PCP - General Internal Medicine 04/11/23 Yajaira Antonio [address] [place] [address] 3[address] [place] [address] Gastroenterology 09/04/24 [facility] 01/28/25 documented as of this encounter
--- NOTE | 2025-03-25 05:37 | PC.NURSE ---
Pt one assist to bedside commode. Pt had large loose BM.
--- NOTE | 2025-03-25 09:34 | MHC.CM.PN ---
Patient lives in a [facility] [address] in [place] and returning there at dc is his goal. CM has initiated and will follow for dc planning. Patient attends a day program 6 days/week and he has [facility]. Patient will need assist with transport at dc and HCP is Eugenia.
--- NOTE | 2025-03-25 13:23 | HO.PM.IMPN ---
Subjective Subjective Date of Service: 03/25/25 Interval History: This history was taken in Turkmen from the patient. Vertigo improved. No hematemesis, hematochezia, or melena. Review of Systems Review of Systems: Yes all other systems are reviewed and are negative Physical Exam Vital Signs: Vital Signs: Last Vital Signs Temp 98.1 F 03/25/25 11:15 Pulse 63 03/25/25 11:30 Resp 20 03/25/25 11:15 BP 156/68 H 03/25/25 11:30 Pulse Ox 100 03/25/25 11:30 O2 Del Method Room Air 03/25/25 11:15 BMI result Body Mass Index 33.0 Gen: in no acute distress HEENT: sclera anicteric, moist mucus membranes Neck: supple Lungs: clear to auscultation bilaterally Heart: regular rate and rhythm, no murmurs Abd: soft, non-tender, non-distended Ext: no edema Skin: warm/well-perfused Neuro: alert and oriented x3, no focal findings, minimal asterixis present Psych: appropriate affect Objective Data Active Medications Acetaminophen (Acetaminophen 325 Mg Tablet) 650 mg PO Q6H PRN PRN Reason: Pain, Mild 1-3,fever,headache Amlodipine Besylate (Amlodipine Besylate 5 Mg Tablet) 5 mg PO DAILY [facility]; Protocol Last Admin: 03/25/25 08:18 Dose: 5 mg Documented By: HUY Calcium Carbonate (Calcium Carbonate 750 Mg Tab.Chew) 750 mg PO Q4H PRN PRN Reason: Heartburn Carvedilol (Carvedilol 3.125 Mg Tablet) 3.125 mg PO BID [facility]; Protocol Last Admin: 03/25/25 08:18 Dose: 3.125 mg Documented By: HUY Ferrous Sulfate (Ferrous Sulfate 324 Mg Tablet.Dr) 324 mg PO MoWeFr [facility] Last Admin: 03/25/25 08:16 Dose: Not Given Documented By: HUY Non-Admin Reason: Patient Refused Furosemide (Furosemide 40 Mg Tablet) 40 mg PO DAILY [facility]; Protocol Last Admin: 03/25/25 08:18 Dose: 40 mg Documented By: HUY Lactulose (Lactulose 20 Gm/30 Ml Solution) 30 gm PO TID [facility] Last Admin: 03/25/25 08:18 Dose: 30 gm Documented By: HUY Magnesium Hydroxide (Milk Of Magnesia 30 Ml Oral.Susp) 30 ml PO DAILY PRN PRN Reason: Constipation Melatonin (Melatonin 3 Mg Tablet) 6 mg PO BEDTIME PRN PRN Reason: Insomnia Ondansetron HCl (Ondansetron Hcl 4 Mg/2 Ml Vial) 4 mg IVPUSH Q8H PRN PRN Reason: Nausea and Vomiting Oxycodone HCl (Oxycodone Hcl Immed Release 5 Mg Tablet) 5 mg PO Q6H PRN PRN Reason: Pain, Severe (Pain Scale 7-10) Rifaximin (Rifaximin 550 Mg Tablet) 550 mg PO TID [facility] Last Admin: 03/25/25 08:18 Dose: 550 mg Documented By: HUY Sodium Chloride (0.9 % Sodium Chloride Flush 3 Ml Syringe) 3 ml IVFLUSH QSHIFT [facility] Last Admin: 03/25/25 07:43 Dose: 3 ml Documented By: [facility] 03/25/25 04:15 03/25/25 04:15 Labs: Laboratory Results - last 24 hr 03/24/25 03/24/25 03/24/25 12:13 14:02 14:32 MCV MCH MCHC RDW Plt Count MPV Immature Gran % (Auto) Neut % (Auto) Lymph % (Auto) [place] % (Auto) Eos % (Auto) Baso % (Auto) Lymph # (Auto) [place] # (Auto) Eos # (Auto) Baso # (Auto) Abs Immat Gran (auto) Absolute Neuts (auto) Absolute Nucleated RBC Nucleated RBC % (auto) Smear Tech's Comments VBG pH 7.54 H VBG pCO2 25 VBG pO2 99 VBG HCO3 21 L VBG O2 Saturation 100.0 VBG Base Excess 0.3 Anion Gap Estim Creat Clear Calc Estimated GFR Random Glucose Calcium Magnesium 2.0 Ammonia 171 H 03/25/25 04:15 MCV 82.9 MCH 27.5 MCHC 33.2 RDW 14.4 Plt Count 24 L MPV 12.6 H Immature Gran % (Auto) 0.0 Neut % (Auto) 49.7 Lymph % (Auto) 39.3 [place] % (Auto) 8.9 Eos % (Auto) 1.6 Baso % (Auto) 0.5 Lymph # (Auto) 0.8 L [place] # (Auto) 0.2 Eos # (Auto) 0.0 Baso # (Auto) 0.0 Abs Immat Gran (auto) 0.00 Absolute Neuts (auto) 1.0 L Absolute Nucleated RBC 0.000 Nucleated RBC % (auto) 0.0 Smear Tech's Comments VERIFIED VBG pH VBG pCO2 VBG pO2 VBG HCO3 VBG O2 Saturation VBG Base Excess Anion Gap 9 L Estim Creat Clear Calc 90.1 Estimated GFR > 60 Random Glucose 93 Calcium 8.1 L D Magnesium 2.0 Ammonia 104 H Assessment and Plan (1) Hyperammonemia: Status: Acute Plan d2 for 64yo M with 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 Quality Stroke Does the patient have a stroke diagnosis?: No VTE Prior VTE?: No VTE Risk Level:: Medical - moderate - high VTE Device Contraindication: N/A - Device Ordered VTE Drug Contraindication: Treatment Not Indicated
[2025-03-25 15:16] LABS: OBS Int Ctl Valid YES; OBS1 POSITIVE (NEGATIVE)
[2025-03-26] VITALS: BP 106/49; PULSE 66; RESP 18; TEMP 36.2; O2SAT 96
[2025-03-26 04:00] VITALS: BP 118/74; PULSE 80; RESP 18; TEMP 36.3; O2SAT 96
[2025-03-26 07:06] LABS: Hematocrit 27.7 % (42.0-52.0); Hemoglobin 9.4 g/dl (14.0-18.0); Imm Gran Abs Auto 0.00 X10*3/uL (0.00-0.03); Imm Gran Pct Auto 0.0 % (0.0-0.4); Lymphocytes Absolute Auto 0.7 X10*3/uL (1.2-4.9); MANUAL DIFF FLAG SCAN; Mean Corpuscular HGB Conc 33.9 g/dl (31.0-36.0); Mean Corpuscular Hemoglobin 27.9 pg (27.0-33.0); Mean Corpuscular Volume 82.2 fL (80.0-98.0); NRBC Abs Auto 0.000 X10*3/uL (0.0-0.012); NRBC Pct Auto 0.0 /100WBC (0.0-0.2); Red Blood Count 3.37 X10*6/uL (4.60-5.80); SCAN SMEAR FLAG 1
[2025-03-26 07:12] LABS: Platelet Count 25 X10*3/uL (160-400); White Blood Count 2.2 X10*3/uL (4.8-10.8)
[2025-03-26 07:19] LABS: INTERNATIONAL NORM RATIO 1.5 (0.9-1.1); Prothrombin Time 16.7 SEC (10.9-12.4)
[2025-03-26 07:25] LABS: Alanine Aminotransferase 27 U/L (0-40); Albumin Level 2.7 g/dL (3.5-5.0); Alkaline Phosphatase 138 U/L (39-117); Anion Gap 9 (12-20); Aspartate Amino Transferase 38 U/L (5-37); Blood Urea Nitrogen 15 mg/dL (9-16); Calcium 8.0 mg/dL (8.4-10.2); Carbon Dioxide 23 mmol/L (22-29); Chloride 113 mmol/L (96-108); Creatinine Clr Calc Pharmacy 108.8; Estimated Glomerular Filt Rate > 60; Magnesium 1.9 mg/dL (1.6-2.6); Potassium 4.3 mmol/L (3.3-5.1); Sodium 141 mmol/L (135-145); Total Protein 5.7 g/dL (6.5-8.0)
[2025-03-26] MEDS: 0.9 % Sodium Chloride Flush 3 ML SYRINGE IVFLUSH (07:53)
[2025-03-26 08:00] VITALS: BP 122/55; BP 140/59; PULSE 55; PULSE 58; RESP 20; TEMP 37.2; O2SAT 100
[2025-03-26 08:39] VITALS: BP 146/60; PULSE 58
[2025-03-26 08:40] VITALS: BP 168/73; PULSE 60
[2025-03-26 11:53] VITALS: BP 121/59; PULSE 62; RESP 20; TEMP 36.6; O2SAT 99
--- NOTE | 2025-03-26 13:09 | P.DS_ITS ---
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 The patient reports after taking his iron fell last night he started to experience dizziness and off balance spinning sensation. He also has been having confusion and trouble with his thoughts. Symptoms began around 21:00 last night and came on suddenly. Symptoms have been constant. He also describes a productive cough but is unsure what color the sputum is. He complains of chest pain worse with coughing. He denies any nausea, vomiting, fever or chills. He has had a lot of diarrhea with the lactulose that he reports he has been taking regularly but denies any black or bloody stools. Per ED note the nursing staff did speak with the patient's A correction and the patient is usually oriented to person and place, but does have episodes of confusion, however they felt that he was more confused than normal and was off balance. The pt is a poor historian and intermittently confused. 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 He was admitted to the hospitalist service and treated with lactulose and rifaximin with resolution of his confusion and dizziness. He was counseled on the importance of compliance with lactulose and rifaximin and new prescriptions were sent. Abdominal Doppler confirmed patency of the TIPS. He has pancytopenia at baseline and counts this admission were consistent with usual levels. He was discharged back to the [facility] where he stays with ongoing PT services. He should establish care with [facility] in 2 weeks. Time Attestation Discharge Coordination Time (in mins): 35 Quality: Safe Use of Opioids Does Pt have an Active Cancer Diagnosis on the Problem List?: No Quality: Stroke Does the patient have a stroke diagnosis?: No Physical Exam Vital Signs: Vital Signs: Last Vital Signs Temp 97.8 F 03/26/25 11:53 Pulse 62 03/26/25 11:53 Resp 20 03/26/25 11:53 BP 121/59 L 03/26/25 11:53 Pulse Ox 99 03/26/25 11:53 O2 Del Method Room Air 03/26/25 11:53 BMI result Body Mass Index 33.0 Gen: in no acute distress HEENT: sclera anicteric, moist mucus membranes Neck: supple Lungs: clear to auscultation bilaterally Heart: regular rate and rhythm, no murmurs Abd: soft, non-tender, non-distended Ext: no edema Skin: warm/well-perfused Neuro: alert and oriented x3, no asterixis Psych: appropriate affect DS: Data Data Completed and Pending Completed studies during hospitalization [Text1]: Laboratory Results WBC 2.2 X10*3/uL (4.8-10.8) L 03/26/25 06:43 RBC 3.37 X10*6/uL (4.60-5.80) L 03/26/25 06:43 Hgb 9.4 g/dl (14.0-18.0) L 03/26/25 06:43 Hct 27.7 % (42.0-52.0) L 03/26/25 06:43 MCV 82.2 fL (80.0-98.0) 03/26/25 06:43 MCH 27.9 pg (27.0-33.0) 03/26/25 06:43 MCHC 33.9 g/dl (31.0-36.0) 03/26/25 06:43 RDW 14.4 % (11.0-16.0) 03/26/25 06:43 Plt Count 25 X10*3/uL (160-400) L 03/26/25 06:43 MPV TNP 03/26/25 06:43 Immature Gran % (Auto) 0.0 % (0.0-0.4) 03/26/25 06:43 Neut % (Auto) 56.8 % (45-73) 03/26/25 06:43 Lymph % (Auto) 33.5 % (20-40) 03/26/25 06:43 [place] % (Auto) 8.3 % (2-11) 03/26/25 06:43 Eos % (Auto) 1.4 % (0-4) 03/26/25 06:43 Baso % (Auto) 0.0 % (0-2) 03/26/25 06:43 Lymph # (Auto) 0.7 X10*3/uL (1.2-4.9) L 03/26/25 06:43 [place] # (Auto) 0.2 X10*3/uL (0.1-1.2) 03/26/25 06:43 Eos # (Auto) 0.0 X10*3/uL (0.0-0.4) 03/26/25 06:43 Baso # (Auto) 0.0 X10*3/uL (0.0-0.2) 03/26/25 06:43 Abs Immat Gran (auto) 0.00 X10*3/uL (0.00-0.03) 03/26/25 06:43 Absolute Neuts (auto) 1.2 x10*3/uL (2.0-8.3) L 03/26/25 06:43 Absolute Nucleated RBC 0.000 X10*3/uL (0.0-0.012) 03/26/25 06:43 Nucleated RBC % (auto) 0.0 /100WBC (0.0-0.2) 03/26/25 06:43 Smear Tech's Comments VERIFIED 03/26/25 06:43 PT 16.7 SEC (10.9-12.4) H 03/26/25 06:43 INR 1.5 (0.9-1.1) H 03/26/25 06:43 VBG pH 7.54 (7.32-7.43) H 03/24/25 14:32 VBG pCO2 25 mmHg 03/24/25 14:32 VBG pO2 99 mmHg 03/24/25 14:32 VBG HCO3 21 mmol/L (22-26) L 03/24/25 14:32 VBG O2 Saturation 100.0 % 03/24/25 14:32 VBG Base Excess 0.3 mmol/L 03/24/25 14:32 Sodium 141 mmol/L (135-145) 03/26/25 06:43 Potassium 4.3 mmol/L (3.3-5.1) 03/26/25 06:43 Chloride 113 mmol/L (96-108) H 03/26/25 06:43 Carbon Dioxide 23 mmol/L (22-29) 03/26/25 06:43 Anion Gap 9 (12-20) L 03/26/25 06:43 BUN 15 mg/dL (9-16) 03/26/25 06:43 Creatinine 0.79 mg/dL (0.5-1.4) 03/26/25 06:43 Estim Creat Clear Calc 108.8 03/26/25 06:43 Estimated GFR > 60 03/26/25 06:43 Random Glucose 96 mg/dL (60-115) 03/26/25 06:43 Calcium 8.0 mg/dL (8.4-10.2) L 03/26/25 06:43 Magnesium 1.9 mg/dL (1.6-2.6) 03/26/25 06:43 Total Bilirubin 0.8 mg/dL (0.0-1.0) 03/26/25 06:43 Direct Bilirubin 0.4 mg/dL (0.0-0.5) 03/26/25 06:43 AST 38 U/L (5-37) H 03/26/25 06:43 ALT 27 U/L (0-40) 03/26/25 06:43 Alkaline Phosphatase 138 U/L (39-117) H 03/26/25 06:43 Ammonia 104 umol/L (13-55) H 03/25/25 04:15 Troponin I High Sens 16.9 ng/L (<3.5-35.0) 03/24/25 22:18 Total Protein 5.7 g/dL (6.5-8.0) L 03/26/25 06:43 Albumin 2.7 g/dL (3.5-5.0) L 03/26/25 06:43 Stool Occult Blood POSITIVE (NEGATIVE) 03/25/25 15:03 Ethyl Alcohol < 10 mg/dL 03/24/25 12:13 Influenza Type A (PCR) NEGATIVE (Negative) 03/24/25 12:13 Influenza Type B (PCR) NEGATIVE (Negative) 03/24/25 12:13 RSV RNA Qual (PCR) NEGATIVE (Negative) 03/24/25 12:13 SARS-CoV-2 RNA (RT-PCR) NEGATIVE (Negative) 03/24/25 12:13 Impressions Abdomen Ultrasound 03/26/25 10:11 IMPRESSION: 1. Very limited examination secondary to extensive overlying bowel gas. 2. TIPS catheter within the liver is patent on color Doppler imaging. 3. Coarsened and increased hepatic echogenicity in keeping with hepatocellular disease. No suspicious lesion allowing for study limitations. 4. The common bile duct could not be well visualized. No intrahepatic biliary dilatation present. 5. Normal gallbladder. 6. Partially imaged right kidney is normal. Electronically signed by: Rao Hale MD 03/26/2025 11:05 AM EDT RP Discharge Plan Discharge Anticipated Discharge Date/Time: 03/26/25 12:53 Patient Disposition: Home Health Service Discharge Diagnosis: hepatic encephalopathy Referrals: [facility] [Provider Group, Gastroenterology] - 2 Weeks Leta Soto MD [Primary Care Provider, Internal Medicine] - 1 Week Discharge Medications: Continued carvedilol 3.125 mg tablet 3.125 mg PO BID Qty: 60 1RF furosemide 40 mg tablet 40 mg PO DAILY amlodipine 5 mg Tablet 5 mg PO DAILY (DME) [facility] See Rx Instructions .Route Qty: 1 0RF Rx Instructions: As directed clotrimazole 1 % cream 1 appl topical BID ferrous gluconate 324 mg (38 mg iron) tablet 324 mg PO 3XW Xifaxan 550 mg Tablet 550 mg PO TID Qty: 90 0RF Changed lactulose 10 gram/15 mL solution 45 ml PO TID Qty: 1000 0RF Discharge Orders: Discharge Order (Routine); Ordered 03/26/25 Ordered By: Getachew Vega Diet: Low salt diet Activity on Discharge: As tolerated Stand Alone Forms: Patient Portal Discharge page Print Language: Hungarian Care Plan Goals: liver health Health Concerns: hepatic encephalopathy Plan of Treatment: take lactulose frequently enough to achieve 3 soft bowel movements daily take rifaximin return to [facility] with PT services establish care with [facility] in 2 weeks Please follow up with your primary care doctor within 1 week. [facility] or [facility]. Assessment: See Discharge Summary.
--- NOTE | 2025-03-26 13:28 | MHC.CM.PN ---
Patient has been medically cleared for dc to home (return to [facility])today, with services. Patient is active with Wallace MELENDEZ, who has been notified of today's dc. ANGEL spoke with Elgin @ [facility] @ [phone], who approved Elgin's return and [facility] will transport Patient to home at 2:30 PM. MD & RN are aware.
== END 2025-03-26 14:19 | disposition home health service (06) ==
LOC: HO.ED 20:47 → HO.EDOVER 03-25 05:32 → HO.IMC 03-25 06:56
PROVIDERS: Physician Assistant; Physician Assistant Medical; Admitting Provider Student in an Organized Health Care Education/Training Program; Emergency Provider Emergency Medicine Emergency Medical Services; PCP Student in an Organized Health Care Education/Training Program; Visit Provider Family Medicine
DX: K76.82 Hepatic encephalopathy (principal); D61.818 Other pancytopenia; E72.20 Disorder of urea cycle metabolism, unspecified; K74.69 Other cirrhosis of liver; I10 Essential (primary) hypertension; F17.210 Nicotine dependence, cigarettes, uncomplicated; B19.20 Unspecified viral hepatitis C without hepatic coma; E66.811 Obesity, class 1; Z71.3 Dietary counseling and surveillance; Z68.33 Body mass index [BMI] 33.0-33.9, adult; Z71.6 Tobacco abuse counseling; Z20.822 Contact with and (suspected) exposure to COVID-19; Z79.899 Other long term (current) drug therapy
CPT/HCPCS: 36415; 70551; 71045; 76705; 80048; 80053; 80076; 80307; 82140; 82272; 82803; 83735; 84484; 85025; 85610; 87637; 93005; 97162; 99285; J2405

== ENCOUNTER → 2025-03-24 11:21 | Outpatient (BNV) | payer MEDICAID, SELFPAY | PROVIDERS: Emergency Provider Emergency Medicine Emergency Medical Services; PCP Student in an Organized Health Care Education/Training Program; Visit Provider Internal Medicine | DX: R42 Dizziness and giddiness (principal); R41.82 Altered mental status, unspecified; R07.9 Chest pain, unspecified | CPT/HCPCS: 93010 ==

== ENCOUNTER → 2025-03-24 13:44 | Outpatient (BNV) | payer MEDICAID, SELFPAY | PROVIDERS: Emergency Provider Emergency Medicine Emergency Medical Services; PCP Student in an Organized Health Care Education/Training Program; Visit Provider Specialist | DX: R42 Dizziness and giddiness (principal); R41.82 Altered mental status, unspecified; R05.9 Cough, unspecified; R07.9 Chest pain, unspecified | CPT/HCPCS: 70551; 71045 ==

== ENCOUNTER 2025-03-24 20:51 | Outpatient (BNV) | payer MEDICAID, SELFPAY | END 2025-03-26 10:11 | PROVIDERS: Admitting Provider Student in an Organized Health Care Education/Training Program; Emergency Provider Emergency Medicine Emergency Medical Services; PCP Student in an Organized Health Care Education/Training Program; Visit Provider Radiology Diagnostic Radiology | DX: R14.0 Abdominal distension (gaseous) (principal) | CPT/HCPCS: 76705 ==

== ENCOUNTER → 2025-03-24 20:51 | Outpatient (BNV) | payer MEDICAID, SELFPAY | PROVIDERS: Admitting Provider Student in an Organized Health Care Education/Training Program; Emergency Provider Emergency Medicine Emergency Medical Services; PCP Student in an Organized Health Care Education/Training Program; Visit Provider Physician Assistant | DX: E72.20 Disorder of urea cycle metabolism, unspecified (principal) | CPT/HCPCS: 99223; 99232; 99239 ==

== ENCOUNTER 2025-03-30 13:55 | Inpatient (IN) | payer MEDICAID, SELFPAY ==
[2025-03-30] VITALS (7 sets, daily range): BP systolic 111–144; BP diastolic 35–59; PULSE 60–69; RESP 15–16; TEMP 36.6–36.8; O2SAT 99–140; BMI 30.6
--- NOTE | ~2025-03-30 | XR_ITS ---
EXAMINATION: XR HIP, RIGHT CLINICAL INFORMATION: Fall COMPARISON: None available. TECHNIQUE: AP pelvis, and Two views of the right hip. FINDINGS: No fracture. Pelvis is intact. Alignment is anatomic. Hip joint spaces are maintained. Soft tissues are unremarkable. XR/XR hip RT w PEL1V IMPRESSION: No acute bony abnormalities of the pelvis or hip joints. Electronically signed by: Rao Hale MD 03/30/2025 04:28 PM EDT
--- NOTE | ~2025-03-30 | XR_ITS ---
EXAMINATION: XR KNEE, RIGHT CLINICAL INFORMATION: Fall COMPARISON: None available. TECHNIQUE: Four views of the right knee. FINDINGS: No fracture, dislocation, or suspicious bone lesion. No malalignment. Mild medial compartment joint space narrowing. Lateral and patellofemoral compartments appear preserved. No significant joint effusion present. No soft tissue abnormalities. XR/XR knee RT 2V IMPRESSION: No acute findings of the right knee. Electronically signed by: Rao Hale MD 03/30/2025 04:26 PM EDT
--- OUTSIDE RECORDS SUMMARY | 2025-03-30 15:13 | XMS_ITS | Clinical Summary ---
Author Organization [facility] Address [address] [place] [phone] Phone Care Team Providers Care Solution Designer Name Role Phone Leta Soto MD Primary Care Pro vider Encounters Date Type Department Care Team Description 01/22/2025 Orders Only [facility] [address] [place] [id number] Homehealth, Interface ProviderMD from Last 3 Months Social History Tobacco Use Types Packs/Day Years Used Date Smoking Tobacco: Never Assessed Education Answer Date Recorded Are you interested in more education? Not on arlin e 01/13/2025 Are you concerned about learning? Not on file 01/13/2025 No 01/13/2025 No 01/13/2025 Digital Access Answer Date Recorded No 01/13/2025 No 01/13/2025 Reliable internet access at home? Not on file 01/13/2025 Device with a working camera? Not on file Sex and Gender Information Value Date Recorded Sex Assigned at Not on file Legal Sex Male 11:21 AM EDT Gender Identity Not on file Sexual Orientation Not on file Plan of Treatment Upcoming Encounters Date Type Department Care Team (Late st Contact Info) Description 04/20/2025 1:15 PM EDT Office Visit [facility] [address] [place] [address] Michela Matt MD [address] [place] [address] [email or web address] Due Date Last Done Comments Adult Td,Tdap Booster 1961 LIPID PANEL 1961 DEPRESSION SCREENING 1973 SMOKING Hx and SMOKELESS TOB ACCO SCREENING 1974 HEPATITIS C SCREENING 12/03/1979 HIV ONE-TIME SCREENING (18-6 5 YEARS) 12/03/1979 COLOGUARD 2006 COLONOSCOPY 2006 COLORECTAL CANCER SCREENING 2006 FIT TEST 2006 FOBT 2006 SIGMOIDOSCOPY 2006 VIRTUAL COLONOSCOPY 2006 PNEUMOCOCCAL VACCINES (50+ y ears) (1 of 1 - PCV) 12/03/2011 ZOSTER VACCINES (1 of 2) 12/03/2011 COVID-19 VACCINE ( - 2023-2 5 season) 2024 RSV VACCINE (1 - 1-dose 75+ series) 2036 HEPATITIS A VACCINES Aged Out No long er eligible based on patient's age to complete this topic HIB VACCINES Aged Out No longer eligi ble based on patient's age to complete this topic MENINGOCOCCAL VACCINES (ACWY) Aged Out No longer eligible based on patient's age to complete this topic MENINGOCOCCAL VACCINES (B) Aged Out N o longer eligible based on patient's age to complete this topic Medical Devices Not on file Insurance C3 ACO C3 ACO C3 ACO C3 ACO C3 ACO [facility] C3 ACO Care Teams Solution Designer Relationship Specialty Start Date End Date Leta Soto MD [address] [place] [address] [phone] PCP - General Internal Medicine 01/05/25 Additional Source Comments The information contained in this document represents components of the legal health record. It is not the complete legal health record.[facility]
--- OUTSIDE RECORDS SUMMARY | 2025-03-30 15:13 | XMS_ITS | Encounter Summary ---
Author Organization [employer] Address [address] [place] [address] Care Team Providers Care Finance Business Manager Name Role Phone Leta Soto MD Primary Care Pro vider Yajaira Antonio Unavailable Encounter Details Date Type Department Care Team (Late st Contact Info) Description 03/17/2025 Results Follow-Up [facility] [address] [place] [address] Leta Soto MD [address] [place] [address] XR Chest 2 Views Social History Tobacco Use Types Packs/Day Years [...] Miscellaneous Notes * Result Encounter Note - Leta Dick MD - 03/17/2025 9:15 AM EDT Please inform pt CXR is normal Thanks documented in this encounter Plan of Treatment Upcoming Encounters Date Type Department Care Team (Late st Contact Info) Description 06/09/2025 9:45 AM EDT Office Visit [facility] [address] [place] [phone] Leta Soto MD [address] [place] [address] documented as of this encounter Goals Goal [...] documented as of this encounter Care Teams Finance Business Manager Relationship Specialty Start Date End Date Leta Soto MD [address] [place] [phone] PCP - General Internal Medicine 04/11/23 Yajaira Antonio [address] [place] [address] [address] [place] [address] Gastroenterology 09/04/24 [facility] 01/28/25 documented as of this encounter
--- NOTE | 2025-03-30 15:17 | ED.GENADULT ---
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 Patient states that yesterday [place] he accidentally slipped and fell, causing him to land onto his bilateral knees. Denies head strike or LOC. patient states that he has been getting occasional dizziness. He describes his dizziness as a sense of feeling ?off balance?. Patient states that the symptoms worsened with positional changes. He denies any severe chest pain, shortness of breath, abdominal pain, nausea, vomiting or diarrhea. Upon this conversation, he appears to be slightly confused when discussing present illness. Per EMS, patient is coming from residential complaining of right knee and hip pain, residential staff state that they feel unsafe with him living there due to increased confusion and falls, last fall was witnessed, no head strike or LOC. MD complaint: Multiple complaints Exacerbating factors: none Related Data Home Medications ?Medication ?Instructions ?Recorded ?Confirmed amlodipine 5 mg tablet 5 mg PO DAILY 12/03/24 03/24/25 furosemide 40 mg tablet 40 mg PO DAILY 12/03/24 03/24/25 clotrimazole 1 % topical cream 1 appl topical BID 02/26/25 03/24/25 ferrous gluconate 324 mg (38 mg 324 mg PO 3XW 03/24/25 03/24/25 iron) tablet Previous Rx's ?Medication ?Instructions ?Recorded walker #1 ea 02/08/25 carvedilol 3.125 mg tablet 3.125 mg PO BID #60 tabs 03/02/25 lactulose 10 gram/15 mL oral 45 ml PO TID #1,000 mL 03/26/25 solution rifaximin 550 mg tablet (Xifaxan) 550 mg PO TID #90 tabs 03/26/25 Allergies Allergy/AdvReac Type Severity Reaction Status Date / Time dicyclomine (From Bentyl) Allergy Unknown Verified 03/30/25 14:09 aspirin AdvReac Severe stomach Verified 03/30/25 14:09 bleeding NSAIDS (Non-Steroidal AdvReac Severe liver Verified 03/30/25 14:09 Anti-Inflamma concerns Review of Systems Review of Systems: Yes all other systems are reviewed and are negative Constitutional: Constitutional: Reports as per [facility] Past Medical History Medical History (Updated 03/30/25 @ 19:05 by JOY Montanez) Obesity (BMI 30.0-34.9) Cirrhosis of liver Fall Pancytopenia Hepatic encephalopathy Portal vein thrombosis Cirrhosis Splenic vein thrombosis Sepsis Cirrhosis of liver with ascites Abdominal pain Thrombocytopenia Pancytopenia Cirrhosis Hepatitis C virus infection Esophageal varices Pancytopenia Iron deficiency anemia Cirrhosis Hepatitis C HBP (high blood pressure) Surgical History S/P TIPS (transjugular intrahepatic portosystemic shunt) H/O left inguinal hernia repair H/O eye surgery History of esophagogastroduodenoscopy (EGD) H/O colonoscopy Family History Family History Maternal Grandmother Breast CA Uterus cancer Mother Primary lung cancer of unknown cell type Social History Social History Household Members: Other Household Members Other:: residential Housing: Homeless Housing Other:: residential Are you a primary memory care program resident to a significant other at home: No Do you presently have visiting nurse or other home services: Yes ([facility]) Unable to assess alcohol history related to: Unknown Alcohol intake: former Comment: pt refusing alarm's Patient Tobacco Use Status: Current everyday Tobacco user Tobacco use type: Cigarette Cigarette Packs Per Day: 1 Cigarettes Per Day: 0.5 Years Smoked: 30 Smoked in Last 30 Days: No e-Cigarette/Vaping Use: Currently Using Second Hand Smoke Exposure: No Use of substances other than those prescribed or required for medical reasons: No Substance Use Type: Crack/Cocaine and Marijuana Advance Directives: Yes Advance Directives on File: Yes Advance Directives Date on File: 04/02/24 Do you have a plan to hurt others: No Plan service: No Current occupational status: retired Physical Exam ED Vital Signs: Vital Signs - 24 hr 03/30/25 14:06 07/21/25 16:26 03/30/25 16:26 Temperature 98 F Pulse Rate 66 60 63 Respiratory Rate 16 Blood Pressure 123/46 L 119/35 L 129/38 L Pulse Oximetry 99 Oxygen Delivery Method Room Air 03/30/25 16:28 03/30/25 17:15 03/30/25 18:32 Temperature 98.2 F Pulse Rate 68 65 Respiratory Rate 15 Blood Pressure 143/59 H 140/51 H Pulse Oximetry 140 H 100 Oxygen Delivery Method Room Air Room Air BMI result Body Mass Index 30.6 Const General: cooperative, comfortable and no acute distress Orientation/consciousness: patient oriented x3 Limitations: no limitations HENMT Head: Yes normal to inspection, Yes normocephalic and Yes atraumatic Ears: hearing grossly normal bilaterally General nose exam: Normal external nose present Face and sinus: Yes normal facial exam Mouth: Normal oral and palatal mucosa present, oropharynx normal and moist mucous membranes Throat: Yes posterior oropharynx normal Eyes Other: Right eye enucleation. Left eye, with normal pupillary response, reactive. Eyelids: Yes eyelids normal Conjunctivae: conjunctivae normal Sclerae: sclerae normal Pupils: Equal, round and reactive pupils present EOM: EOMs intact bilaterally (EOMI on the left, unable to assess the right.) Neck Neck: Yes normal visual inspection, Yes full ROM and Yes no lymphadenopathy Lymphatic: no lymphadenopathy noted Chest Chest palpation & inspection: normal inspection of the chest Resp Effort & Inspection: normal respiratory effort and able to speak in complete sentences Auscultation: clear to auscultation bilaterally, no crackles, no rales, no rhonchi and no wheezes Cardio Rate: regular rate Rhythm: regular rhythm Heart sounds: S1 normal heart sound present and S2 normal heart sound present GI Inspection: Yes normal to inspection Skin General skin exam: no rashes or lesions noted Trauma: no lacerations or abrasions Wounds: no wounds Neuro General: patient oriented x3 and moves all extremities Cranial nerves: Yes CN's II-XII intact bilaterally and Yes Equal, round and reactive pupils present Motor exam (neuro): 5/5 motor strength present throughout and Pronator motor function not present Extrem Other: Right knee with no obvious bony deformity or swelling. He does have slight superficial abrasion noted to the patella, full ROM of the knee without difficulty. Hip nontender. 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 On arrival, vital signs within normal limits. He is speaking in full sentences under no acute distress. He is neurologically intact. Of note, patient was admitted to the hospital on March 24, 2025 and was discharged on March 26, 2025. He was admitted to the hospitalist service for treatment with lactulose and rifaximin due to hepatic encephalopathy. This was thought to be occurring due to medication noncompliance. Differential diagnoses include hepatic encephalopathy, orthostatic hypotension, electrolyte derangement, knee contusion, hip strain 1825 - labs returned, white blood cell count is 2.1, consistent with previous. No evidence of [place]. T bili at 1.4 similar to previous. AST elevated at 49. Ammonia 142. Given patient's confusion, falls, and evidence of hepatic encephalopathy, patient requiring admission for further management. Differential Diagnosis Differential Diagnoses: The differential diagnosis associated with the presentation includes Lab Data [facility] Lab Attestation statement: I reviewed the patient's lab results. See MDM and course 03/30/25 15:58 03/30/25 15:58 Labs: Lab Results 03/30/25 03/30/25 03/30/25 Range/Units 15:58 17:24 17:57 WBC 2.1 L (4.8-10.8) X10*3/uL RBC 3.34 L (4.60-5.80) X10*6/uL Hgb 9.3 L (14.0-18.0) g/dl Hct 28.2 L (42.0-52.0) % MCV 84.4 (80.0-98.0) fL MCH 27.8 (27.0-33.0) pg MCHC 33.0 (31.0-36.0) g/dl RDW 14.8 (11.0-16.0) % Plt Count 25 L (160-400) X10*3/uL MPV 12.2 (9.4-12.4) fL Immature Gran % (Auto) 0.0 (0.0-0.4) % Neut % (Auto) 48.5 (45-73) % Lymph % (Auto) 38.8 (20-40) % [place] % (Auto) 10.3 (2-11) % Eos % (Auto) 1.9 (0-4) % Baso % (Auto) 0.5 (0-2) % Lymph # (Auto) 0.8 L (1.2-4.9) X10*3/uL [place] # (Auto) 0.2 (0.1-1.2) X10*3/uL Eos # (Auto) 0.0 (0.0-0.4) X10*3/uL Baso # (Auto) 0.0 (0.0-0.2) X10*3/uL Abs Immat Gran (auto) 0.00 (0.00-0.03) X10*3/uL Absolute Neuts (auto) 1.0 L (2.0-8.3) x10*3/uL Absolute Nucleated RBC 0.000 (0.0-0.012) X10*3/uL Nucleated RBC % (auto) 0.0 (0.0-0.2) /100WBC Smear Tech's Comments VERIFIED Sodium 145 (135-145) mmol/L Potassium 4.6 (3.3-5.1) mmol/L Chloride 117 H (96-108) mmol/L Carbon Dioxide 24 (22-29) mmol/L Anion Gap 9 L (12-20) BUN 17 H (9-16) mg/dL Creatinine 0.81 (0.5-1.4) mg/dL Estim Creat Clear Calc 112.2 Estimated GFR > 60 Random Glucose 84 (60-115) mg/dL Calcium 8.2 L (8.4-10.2) mg/dL Magnesium 2.2 (1.6-2.6) mg/dL Total Bilirubin 1.4 H (0.0-1.0) mg/dL AST 49 H (5-37) U/L ALT 34 (0-40) U/L Alkaline Phosphatase 136 H (39-117) U/L Ammonia 142 H (13-55) umol/L Total Protein 6.5 (6.5-8.0) g/dL Albumin 3.0 L (3.5-5.0) g/dL Urine Color Dark Yellow Urine Appearance Clear Urine pH 6.0 (5.0-9.0) Ur Specific [place] 1.025 (1.005-1.025) Urine Protein Negative (Neg-Trace) mg/dL Urine Glucose (UA) Negative (Negative) mg/dL Urine Ketones Trace (Negative) mg/dL Urine Blood Negative (Negative) Urine Nitrite Negative (Negative) Ur Leukocyte Esterase Negative (Negative) Ethyl Alcohol < 10 mg/dL Radiology Impression Discussion of test interpretation with radiology: I have reviewed the radiologist's reading. Radiologist Impression: COMPARISON: None available. TECHNIQUE: Four views of the right knee. FINDINGS: No fracture, dislocation, or suspicious bone lesion. No malalignment. Mild medial compartment joint space narrowing. Lateral and patellofemoral compartments appear preserved. No significant joint effusion present. No soft tissue abnormalities. XR/XR knee RT 2V IMPRESSION: No acute findings of the right knee. Electronically signed by: Rao Hale MD 03/30/2025 04:26 PM EDT RP Dictated By: Rao Hale MD EXAMINATION: XR HIP, RIGHT CLINICAL INFORMATION: Fall COMPARISON: None available. TECHNIQUE: AP pelvis, and Two views of the right hip. FINDINGS: No fracture. Pelvis is intact. Alignment is anatomic. Hip joint spaces are maintained. Soft tissues are unremarkable. XR/XR hip RT w PEL1V IMPRESSION: No acute bony abnormalities of the pelvis or hip joints. Electronically signed by: Rao Hale MD 03/30/2025 04:28 PM EDT RP Dictated By: Rao Hale MD Critical Care Time Critical Care Time Critical Care Time: Yes Total Critical Care Time: 36 Attestation: I have personally provided critical care time exclusive of time spent on separately billable procedures. Time includes review of lab data, radiology results, discussion with consultants, and monitoring for potential decompensation. Intervention performed as documented. Discharge Plan Discharge Clinical Impression: Acute hepatic encephalopathy, Pancytopenia Patient Disposition: Admitted As Inpatient Print Language: Macedonian
--- NOTE | 2025-03-30 16:05 | ECG_ITS ---
Test Reason : dizziness Blood Pressure : */* mmHG Vent. Rate : 62 BPM Atrial Rate : 62 BPM P-R Int : 154 ms QRS Dur : 78 ms QT Int : 454 ms P-R-T Axes : 42 38 1 degrees QTcB Int : 460 ms Normal sinus rhythm Normal ECG When compared with ECG of 24-Mar-2025 11:21, T wave inversion now evident in Inferior leads Referred By: Patricia Eason Electronically Signed By:
[2025-03-30 16:07] LABS: Hemoglobin 9.3 g/dl (14.0-18.0); Imm Gran Abs Auto 0.00 X10*3/uL (0.00-0.03); Imm Gran Pct Auto 0.0 % (0.0-0.4); MANUAL DIFF FLAG SCAN; Mean Corpuscular Volume 84.4 fL (80.0-98.0); NRBC Abs Auto 0.000 X10*3/uL (0.0-0.012); NRBC Pct Auto 0.0 /100WBC (0.0-0.2); SCAN SMEAR FLAG 1
[2025-03-30 16:09] LABS: Hematocrit 28.2 % (42.0-52.0); Lymphocytes Absolute Auto 0.8 X10*3/uL (1.2-4.9); Mean Corpuscular HGB Conc 33.0 g/dl (31.0-36.0); Mean Corpuscular Hemoglobin 27.8 pg (27.0-33.0); Red Blood Count 3.34 X10*6/uL (4.60-5.80)
[2025-03-30 16:11] LABS: PLT ABN DIST 1
[2025-03-30 16:23] LABS: Albumin Level 3.0 g/dL (3.5-5.0); Alkaline Phosphatase 136 U/L (39-117); Anion Gap 9 (12-20); Aspartate Amino Transferase 49 U/L (5-37); Blood Urea Nitrogen 17 mg/dL (9-16); Calcium 8.2 mg/dL (8.4-10.2); Carbon Dioxide 24 mmol/L (22-29); Chloride 117 mmol/L (96-108); Creatinine Clr Calc Pharmacy 112.2; Estimated Glomerular Filt Rate > 60; Magnesium 2.2 mg/dL (1.6-2.6); Potassium 4.6 mmol/L (3.3-5.1); Sodium 145 mmol/L (135-145); Total Protein 6.5 g/dL (6.5-8.0)
[2025-03-30 16:36] LABS: Alanine Aminotransferase 34 U/L (0-40)
[2025-03-30 16:38] LABS: White Blood Count 2.1 X10*3/uL (4.8-10.8)
[2025-03-30 16:39] LABS: Platelet Count 25 X10*3/uL (160-400)
[2025-03-30 17:37] LABS: Appearance Urine Clear; Glucose Urine UA Negative (Negative); PH 6.0 (5.0-9.0); Specific Gravity - Urine 1.025 (1.005-1.025)
[2025-03-30 18:07] LABS: Ammonia 142 umol/L (13-55)
--- NOTE | 2025-03-30 19:35 | PM.IMHP ---
History of Present Illness Date of Service: 03/30/25 Attending physician on admission: Mikey Lopez Chief Complaint: Dizziness Adelso Mcmanus is a 64 years old man with past medical history significant for liver cirrhosis secondary to hep C infection, chronic pancytopenia and portal + splenic vein thrombosis status post tips procedure presents to the emergency department complaining of dizziness. He denied any events of loss of consciousness. He attributes this event of dizziness to a medication that he took before this. He does not recall the name of the medication, he thinks this medication is too improves his iron level in blood (he said he took it today for the first time). Subsequently, he mentioned that he gets dizzy after smoking cigarettes. Yesterday, he sustained a fall after he slipped and hit his right knee. Initially, he was experiencing some pain but this got better. He denied any events of loss of consciousness, headache, chest pain, shortness on breath, focal weakness, speech difficulty or numbness. He denied alcohol abuse and illicit drug use. He smokes cigarettes. He missed his 13:00 dose of lactulose because he has been in the ED, but he said that he takes his lactulose religiously. In the ED, he was found to have stable vital signs. Blood workup showed pancytopenia that is at baseline. CMP is also at baseline. Urinalysis showed no evidence of UTI. ETOH level is <10. Right knee x-ray showed no fracture, dislocation or suspicious bone lesion. It is showed mild medial compartment joint space narrowing, lateral and patellofemoral compartments appear preserved and no effusions or soft tissue abnormalities. Hip and pelvis x-rays showed no acute bone abnormalities. ECG showed normal sinus rhythm and no acute ischemia. ED tx: None. Review of Systems Review of Systems: All 12 systems were reviewed and normal except as noted in HPI. [facility] Medical History (Updated 03/30/25 @ 19:05 by JOY Montanez) Obesity (BMI 30.0-34.9) Cirrhosis of liver Fall Pancytopenia Hepatic encephalopathy Portal vein thrombosis Cirrhosis Splenic vein thrombosis Sepsis Cirrhosis of liver with ascites Abdominal pain Thrombocytopenia Pancytopenia Cirrhosis Hepatitis C virus infection Esophageal varices Pancytopenia Iron deficiency anemia Cirrhosis Hepatitis C HBP (high blood pressure) Family History Maternal Grandmother Breast CA Uterus cancer Mother Primary lung cancer of unknown cell type Surgical History S/P TIPS (transjugular intrahepatic portosystemic shunt) H/O left inguinal hernia repair H/O eye surgery History of esophagogastroduodenoscopy (EGD) H/O colonoscopy Social History Household Members: Other Household Members Other:: half-way Housing: Homeless Housing Other:: half-way Are you a primary vehicle care specialist to a significant other at home: No Do you presently have visiting nurse or other home services: Yes ([facility]) Unable to assess alcohol history related to: Unknown Alcohol intake: former Comment: pt refusing alarm's Patient Tobacco Use Status: Current everyday Tobacco user Tobacco use type: Cigarette Cigarette Packs Per Day: 1 Cigarettes Per Day: 0.5 Years Smoked: 30 Smoked in Last 30 Days: No e-Cigarette/Vaping Use: Currently Using Second Hand Smoke Exposure: No Use of substances other than those prescribed or required for medical reasons: No Substance Use Type: Crack/Cocaine and Marijuana Advance Directives: Yes Advance Directives on File: Yes Advance Directives Date on File: 04/02/24 Do you have a plan to hurt others: No Plan service: No Current occupational status: retired Meds Allergies Allergy/AdvReac Type Severity Reaction Status Date / Time dicyclomine (From Bentyl) Allergy Unknown Verified 03/30/25 14:09 aspirin AdvReac Severe stomach Verified 03/30/25 14:09 bleeding NSAIDS (Non-Steroidal AdvReac Severe liver Verified 03/30/25 14:09 Anti-Inflamma concerns Active Medications: Current Medications Lactulose (Lactulose 20 Gm/30 Ml Solution) 30 gm PO ONCE STA Stop: 03/30/25 19:35 Home Medications ?Medication ?Instructions ?Recorded ?Confirmed ?Last Taken ?Type amlodipine 5 mg tablet 5 mg PO DAILY 12/03/24 03/30/25 03/30/25 History furosemide 40 mg tablet 40 mg PO DAILY 12/03/24 03/30/25 03/30/25 History clotrimazole 1 % topical cream 1 appl topical BID 02/26/25 03/30/25 03/30/25 History ferrous gluconate 324 mg (38 mg 324 mg PO 3XW 03/24/25 03/30/25 Unknown History iron) tablet Physical Exam Vital Signs and Narrative: Vital Signs: Last Vital Signs Temp 98.2 F 03/30/25 17:15 Pulse 65 03/30/25 17:15 Resp 15 03/30/25 17:15 BP 140/51 H 03/30/25 17:15 Pulse Ox 100 03/30/25 18:32 O2 Del Method Room Air 03/30/25 18:32 BMI result Body Mass Index 30.6 Constitutional - Awake and Alert, No apparent distress HEENT - atraumatic head. Right eye absent, Left eye: Pupil equally round and reactive to light. Heart - RRR, No murmurs Lungs - Normal lung expansion, Normal respiratory effort, No respiratory distress, CTA bilaterally Abdomen - NT / ND; +BS; No rebound or guarding Extremities - bilateral nonpitting edema. Both knees: Normal ROM. Musculoskeletal - Normal inspection, normal ROM Skin - Warm/Dry Neurological - Alert & oriented x3. No facial droop. Normal speech. Strength: 5/5 all muscle groups. Sensory: Intact. No asterixis. Psychological - Appropriate affect Results Labs 03/30/25 15:58 03/30/25 15:58 Labs: Laboratory Results - last 24 hr 03/30/25 03/30/25 03/30/25 15:58 17:24 17:57 MCV 84.4 MCH 27.8 MCHC 33.0 RDW 14.8 Plt Count 25 L MPV 12.2 Immature Gran % (Auto) 0.0 Neut % (Auto) 48.5 Lymph % (Auto) 38.8 [place] % (Auto) 10.3 Eos % (Auto) 1.9 Baso % (Auto) 0.5 Lymph # (Auto) 0.8 L [place] # (Auto) 0.2 Eos # (Auto) 0.0 Baso # (Auto) 0.0 Abs Immat Gran (auto) 0.00 Absolute Neuts (auto) 1.0 L Absolute Nucleated RBC 0.000 Nucleated RBC % (auto) 0.0 Smear Tech's Comments VERIFIED Anion Gap 9 L Estim Creat Clear Calc 112.2 Estimated GFR > 60 Random Glucose 84 Calcium 8.2 L Magnesium 2.2 Total Bilirubin 1.4 H AST 49 H ALT 34 Alkaline Phosphatase 136 H Ammonia 142 H Total Protein 6.5 Albumin 3.0 L Urine Color Dark Yellow Urine Appearance Clear Urine pH 6.0 Ur Specific [place] 1.025 Urine Protein Negative Urine Glucose (UA) Negative Urine Ketones Trace Urine Blood Negative Urine Nitrite Negative Ur Leukocyte Esterase Negative Ethyl Alcohol < 10 Imaging Radiologist's Impressions: Impressions Hip/Pelvis X-Ray 03/30/25 15:17 IMPRESSION: No acute bony abnormalities of the pelvis or hip joints. Electronically signed by: Rao Hale MD 03/30/2025 04:28 PM EDT RP Knee X-Ray 03/30/25 15:18 IMPRESSION: No acute findings of the right knee. Electronically signed by: Rao Hale MD 03/30/2025 04:26 PM EDT RP Assessment and Plan (1) Dizziness: Status: Acute (2) Hyperammonemia: Status: Acute Plan Adelso Mcmanus is a 64 y/o man with PMHx significant for liver cirrhosis secondary to hep C infection; and portal + splenic vein thrombosis s/p tips procedure presents with: Dizziness, possible due to meds. No focal weakness. No orthostasis. ECG normal. Observation. Check orthostatic vital signs with every shift. Avoid sedating meds. Telemetry. Hyperammonemia, chronic. No signs symptoms of acute encephalopathy. Continue lactulose and rifaximin as per home doses. Pancytopenia secondary to cirrhosis, chronic. At baseline. Continue to monitor. Essential hypertension. Continue carvedilol and amlodipine. Portal hypertension, history of ascites. Continue furosemide. DVT prophylaxis: SCDs only (marked thrombocytopenia). Code status: Full Quality Stroke Does the patient have a stroke diagnosis?: No VTE Prior VTE?: No VTE Risk Level:: Medical - moderate - high VTE Device Contraindication: N/A - Device Ordered VTE Drug Contraindication: Treatment Not Indicated
--- NOTE | 2025-03-30 19:57 | PHA.MEDREC ---
Addendum entered by Ebony Garrido [facility] 03/30/25 20:10: REVIEWED BY PHARMACIST Original Note: Pharmacy Consult ? Medication Reconciliation Pharmacy has completed the medication reconciliation. Spoke with pt and was on a phone call with his director at his assisted (I was not able to get his name) and confirmed the pt was just discharged with us 03/26 and states nothing has changed from that discharge. I asked about Ferrous Gluconate, since it is 3XW in directions, but pt nor the director knew what days the pt takes that. The director confirmed the pt took his medications before coming in the ED.
--- NOTE | 2025-03-30 22:10 | PC.NURSE ---
per Vcolin in pharmacy okay to give 2200 lactulose
--- NOTE | 2025-03-31 01:18 | PC.NURSE ---
Pt refusing to use bedside commode and insisting to go to restroom Pt assisted to the restroom Plan of care ongoing.
[2025-03-31] MEDS: 0.9 % Sodium Chloride Flush 3 ML SYRINGE IVFLUSH ×2 (01:25→08:50)
--- NOTE | 2025-03-31 01:56 | PC.NURSE ---
Late entry Pt assisted back into bed by this RN. Tech placed bed alarm plan of care ongoing.
[2025-03-31 03:10] VITALS: BP 119/46; PULSE 59; RESP 17; O2SAT 98
[2025-03-31 05:51] VITALS: BP 111/36; PULSE 58; RESP 17; TEMP 36.5; O2SAT 99
[2025-03-31 06:04] LABS: Hemoglobin 8.1 g/dl (14.0-18.0); Imm Gran Abs Auto 0.00 X10*3/uL (0.00-0.03); Imm Gran Pct Auto 0.0 % (0.0-0.4); MANUAL DIFF FLAG SCAN; NRBC Abs Auto 0.000 X10*3/uL (0.0-0.012); NRBC Pct Auto 0.0 /100WBC (0.0-0.2); PLT ABN DIST 1; SCAN SMEAR FLAG 1
[2025-03-31 06:06] LABS: Hematocrit 24.6 % (42.0-52.0); Lymphocytes Absolute Auto 0.6 X10*3/uL (1.2-4.9); Mean Corpuscular HGB Conc 32.9 g/dl (31.0-36.0); Mean Corpuscular Hemoglobin 27.6 pg (27.0-33.0); Mean Corpuscular Volume 84.0 fL (80.0-98.0); Red Blood Count 2.93 X10*6/uL (4.60-5.80); White Blood Count 1.3 X10*3/uL (4.8-10.8)
[2025-03-31 06:11] LABS: Platelet Count 20 X10*3/uL (160-400)
[2025-03-31 06:22] LABS: Alanine Aminotransferase 26 U/L (0-40); Albumin Level 2.5 g/dL (3.5-5.0); Alkaline Phosphatase 114 U/L (39-117); Anion Gap 10 (12-20); Aspartate Amino Transferase 39 U/L (5-37); Blood Urea Nitrogen 17 mg/dL (9-16); Calcium 8.1 mg/dL (8.4-10.2); Carbon Dioxide 22 mmol/L (22-29); Chloride 117 mmol/L (96-108); Creatinine Clr Calc Pharmacy 102.1; Estimated Glomerular Filt Rate > 60; Magnesium 2.1 mg/dL (1.6-2.6); Potassium 3.9 mmol/L (3.3-5.1); Sodium 145 mmol/L (135-145); Total Protein 5.4 g/dL (6.5-8.0)
[2025-03-31 08:49] VITALS: BP 130/44
[2025-03-31 08:50] VITALS: BP 130/44; PULSE 69
--- NOTE | 2025-03-31 09:27 | PC.NURSE ---
Pt able to ambulate independently to bathroom for bowel movement
[2025-03-31 09:30] VITALS: BP 130/44; PULSE 59; RESP 16; TEMP 36.5; O2SAT 98
--- NOTE | 2025-03-31 09:54 | PM.DS ---
DS: Providers Provider Date of Service: 03/31/25 Date of admission: 03/30/25 18:53 Date of discharge: 03/31/25 Primary care physician: Leta Dick MD Consults: 03/31/25 07:57 Consult to Hematology / Oncology Routine Consulting Provider: [facility] Oncology/Hematology Reason for consultation: thrombocytopenia DS: Diagnosis Discharge Diagnosis (1) Dizziness: Status: Acute (2) Hyperammonemia: Status: Acute DS: Summary Hospital Course Hospital Course: History and physical as per admitting provider. 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 He denied any events of loss of consciousness. He attributes this event of dizziness to a medication that he took before this. He does not recall the name of the medication, he thinks this medication is too improves his iron level in blood (he said he took it today for the first time). Subsequently, he mentioned that he gets dizzy after smoking cigarettes. Yesterday, he sustained a fall after he slipped and hit his right knee. Initially, he was experiencing some pain but this got better. He denied any events of loss of consciousness, headache, chest pain, shortness on breath, focal weakness, speech difficulty or numbness. He denied alcohol abuse and illicit drug use. He smokes cigarettes. He missed his 13:00 dose of lactulose because he has been in the ED, but he said that he takes his lactulose religiously. In the ED, he was found to have stable vital signs. Blood workup showed pancytopenia that is at baseline. CMP is also at baseline. Urinalysis showed no evidence of UTI. ETOH level is <10. Right knee x-ray showed no fracture, dislocation or suspicious bone lesion. It is showed mild medial compartment joint space narrowing, lateral and patellofemoral compartments appear preserved and no effusions or soft tissue abnormalities. Hip and pelvis x-rays showed no acute bone abnormalities. ECG showed normal sinus rhythm and no acute ischemia. ED tx: None. Dizziness, possible due to meds. No focal weakness. No orthostasis. ECG normal. Patient requesting to be discharged, stable at this time. Patient did not miss any doses of lactulose Hyperammonemia, chronic. No signs symptoms of acute encephalopathy. Continue lactulose and rifaximin as per home doses. Pancytopenia secondary to cirrhosis, chronic. At baseline. Essential hypertension. Continue carvedilol and amlodipine. Portal hypertension, history of ascites. Continue furosemide. Time Attestation Discharge Coordination Time (in mins): 42 Quality: Safe Use of Opioids Does Pt have an Active Cancer Diagnosis on the Problem List?: No Quality: Stroke Does the patient have a stroke diagnosis?: No Physical Exam Exam: Exam: Appearing in no acute distress head is normocephalic atraumatic eyes pupils are PERRLA sclera is anicteric mouth throat mucous membranes are intact and moist neck is supple no lymphadenopathy, no JVD noted lung sounds are clear to auscultation heart regular rate rhythm, clear S1, S2 positive bowel sounds, abdomen is soft, nontender neuro patient is alert x3, no focal deficits Vital Signs: Vital Signs: Last Vital Signs Temp 97.7 F 03/31/25 09:30 Pulse 59 03/31/25 09:30 Resp 16 03/31/25 09:30 BP 130/44 L 03/31/25 09:30 Pulse Ox 98 03/31/25 09:30 O2 Del Method Room Air 03/31/25 09:30 BMI result Body Mass Index 30.6 DS: Data Data Completed and Pending Completed studies during hospitalization [Text1]: Procedures Bypass Portal Vein to Hepatic Vein with Synthetic Substitute, Percutaneous Approach (10/08/24) Transfusion of Nonautologous Platelets into Peripheral Vein, Percutaneous Approach (10/08/24) Labs on day of discharge: Laboratory Results - last 24 hr 03/30/25 03/30/25 03/30/25 15:58 17:24 17:57 WBC 2.1 L RBC 3.34 L Hgb 9.3 L Hct 28.2 L MCV 84.4 MCH 27.8 MCHC 33.0 RDW 14.8 Plt Count 25 L MPV 12.2 Immature Gran % (Auto) 0.0 Neut % (Auto) 48.5 Lymph % (Auto) 38.8 [place] % (Auto) 10.3 Eos % (Auto) 1.9 Baso % (Auto) 0.5 Lymph # (Auto) 0.8 L [place] # (Auto) 0.2 Eos # (Auto) 0.0 Baso # (Auto) 0.0 Abs Immat Gran (auto) 0.00 Absolute Neuts (auto) 1.0 L Absolute Nucleated RBC 0.000 Nucleated RBC % (auto) 0.0 Smear Tech's Comments VERIFIED Sodium 145 Potassium 4.6 Chloride 117 H Carbon Dioxide 24 Anion Gap 9 L BUN 17 H Creatinine 0.81 Estim Creat Clear Calc 112.2 Estimated GFR > 60 Random Glucose 84 Calcium 8.2 L Magnesium 2.2 Total Bilirubin 1.4 H AST 49 H ALT 34 Alkaline Phosphatase 136 H Ammonia 142 H Total Protein 6.5 Albumin 3.0 L Urine Color Dark Yellow Urine Appearance Clear Urine pH 6.0 Ur Specific [place] 1.025 Urine Protein Negative Urine Glucose (UA) Negative Urine Ketones Trace Urine Blood Negative Urine Nitrite Negative Ur Leukocyte Esterase Negative Ethyl Alcohol < 10 03/31/25 04:27 WBC 1.3 L RBC 2.93 L Hgb 8.1 L Hct 24.6 L MCV 84.0 MCH 27.6 MCHC 32.9 RDW 14.7 Plt Count 20 L* MPV Not Reportable Immature Gran % (Auto) 0.0 Neut % (Auto) 42.1 L Lymph % (Auto) 44.4 H [place] % (Auto) 11.9 H Eos % (Auto) 0.8 Baso % (Auto) 0.8 Lymph # (Auto) 0.6 L [place] # (Auto) 0.2 Eos # (Auto) 0.0 Baso # (Auto) 0.0 Abs Immat Gran (auto) 0.00 Absolute Neuts (auto) 0.5 L Absolute Nucleated RBC 0.000 Nucleated RBC % (auto) 0.0 Smear Tech's Comments VERIFIED Sodium 145 Potassium 3.9 Chloride 117 H Carbon Dioxide 22 Anion Gap 10 L BUN 17 H Creatinine 0.89 Estim Creat Clear Calc 102.1 Estimated GFR > 60 Random Glucose 90 Calcium 8.1 L Magnesium 2.1 Total Bilirubin 1.0 AST 39 H ALT 26 Alkaline Phosphatase 114 Ammonia Total Protein 5.4 L Albumin 2.5 L Urine Color Urine Appearance Urine pH Ur Specific [place] Urine Protein Urine Glucose (UA) Urine Ketones Urine Blood Urine Nitrite Ur Leukocyte Esterase Ethyl Alcohol Discharge Plan Discharge Anticipated Discharge Date/Time: 03/31/25 09:50 Patient Disposition: Home, Self-Care Discharge Diagnosis: Dizziness Chronic pancytopenia Referrals: Leta Soto MD [Primary Care Provider, Internal Medicine] - 1 Week Discharge Medications: Continued carvedilol 3.125 mg tablet 3.125 mg PO BID Qty: 60 1RF furosemide 40 mg tablet 40 mg PO DAILY amlodipine 5 mg Tablet 5 mg PO DAILY (ALLIE) doris Sam See Rx Instructions .Route Qty: 1 0RF Rx Instructions: As directed clotrimazole 1 % cream 1 appl topical BID ferrous gluconate 324 mg (38 mg iron) tablet 324 mg PO 3XW lactulose 10 gram/15 mL solution 45 ml PO TID Qty: 1000 0RF Xifaxan 550 mg Tablet 550 mg PO TID Qty: 90 0RF Discharge Orders: Discharge Order (Routine); Ordered 03/31/25 Ordered By: Deanna Puente Diet: Advance to usual diet Activity on Discharge: As tolerated Stand Alone Forms: Patient Portal Discharge page Print Language: Somali Care Plan Goals: Do not miss any doses of your lactulose Health Concerns: Dizziness Chronic pancytopenia Plan of Treatment: Follow up with primary care provider as needed Take all medications as prescribed Assessment: See discharge summary
[2025-03-31 11:25] VITALS: BP 133/49; PULSE 55; RESP 16; TEMP 36.2; O2SAT 99
== END 2025-03-31 11:29 | disposition home or self-care (01) | DRG 111 ==
LOC: HO.ED 15:13 → HO.EDOVER 19:03 → HO.S3 19:26 → HO.EDOVER 20:39
PROVIDERS: Physician Assistant Medical; Admitting Provider Internal Medicine; Emergency Provider Emergency Medicine; PCP Student in an Organized Health Care Education/Training Program; Visit Provider Nurse Practitioner Acute Care
DX: R42 Dizziness and giddiness (principal); D61.818 Other pancytopenia; E72.20 Disorder of urea cycle metabolism, unspecified; K76.6 Portal hypertension; F17.210 Nicotine dependence, cigarettes, uncomplicated; T50.905A Adverse effect of unspecified drugs, medicaments and biological substances, initial encounter; I10 Essential (primary) hypertension; K74.69 Other cirrhosis of liver; Z59.01 Sheltered homelessness; Z71.6 Tobacco abuse counseling; Z79.899 Other long term (current) drug therapy
CPT/HCPCS: 36415; 73502; 73560; 80053; 80307; 81003; 82140; 83735; 85025; 93005; 99285

== ENCOUNTER → 2025-03-30 15:17 | Outpatient (BNV) | payer MEDICAID, SELFPAY | PROVIDERS: Emergency Provider Emergency Medicine; PCP Student in an Organized Health Care Education/Training Program; Visit Provider Radiology Diagnostic Radiology | DX: M25.551 Pain in right hip (principal); M25.561 Pain in right knee; W19.XXXA Unspecified fall, initial encounter | CPT/HCPCS: 73502; 73560 ==

== ENCOUNTER → 2025-03-30 18:53 | Outpatient (BNV) | payer MEDICAID, SELFPAY | PROVIDERS: Admitting Provider Internal Medicine; Emergency Provider Emergency Medicine; PCP Student in an Organized Health Care Education/Training Program; Visit Provider Internal Medicine | DX: R42 Dizziness and giddiness (principal); E72.20 Disorder of urea cycle metabolism, unspecified | CPT/HCPCS: 99223; 99239 ==

== ENCOUNTER → 2025-04-07 12:58 | Outpatient (REF) | payer MEDICAID, SELFPAY ==
--- NOTE | 2025-04-07 13:01 | HM_ITS ---
* Total monitoring time 3 days. * Underlying rhythm is sinus with an average rate of 73/Min. * Rare supraventricular ectopy. * Rare ventricular ectopy. Three couplets and one triplet. * No significant pauses or high-grade AV blocks. * Patient marker used with sinus rhythm. * No diary events. MTDD
--- OUTSIDE RECORDS SUMMARY | 2025-04-07 13:45 | XMS_ITS | Clinical Summary ---
Author Organization [facility] Address [address] [place] [phone] Phone Care Team Providers Care Marine Mechanic Name Role Phone Leta Soto MD Primary Care Pro vider Encounters Date Type Department Care Team Description 01/22/2025 Orders Only [facility] [address] [place] [id number] Homehealth, Interface ProviderMD from Last 3 Months [...] Description 04/20/2025 1:15 PM EDT Office Visit [facility] [address] [place] [address] Michela Matt MD [address] [place] [address] [email or web address] Health Maintenance Due Date Last Done Comments [...] ACO C3 ACO C3 ACO C3 ACO [facility] C3 ACO Care Teams Marine Mechanic Relationship Specialty Start Date End Date Leta Soto MD [address] [place] [id number] [phone] PCP - General Internal Medicine 01/05/25 Additional Source Comments The information contained in this document represents components of the legal health record. It is not the complete legal health record.[facility]
== END ==
LOC: HO.CARD 12:58
PROVIDERS: PCP Student in an Organized Health Care Education/Training Program
DX: R42 Dizziness and giddiness (principal)
CPT/HCPCS: 93242

== ENCOUNTER → 2025-04-07 13:01 | Outpatient (BNV) | payer MEDICAID, SELFPAY | PROVIDERS: PCP Student in an Organized Health Care Education/Training Program; Visit Provider Internal Medicine | DX: I47.10 Supraventricular tachycardia, unspecified (principal); I49.3 Ventricular premature depolarization | CPT/HCPCS: 93244 ==

== ENCOUNTER 2025-04-08 17:23 | Emergency (ER) | payer MEDICAID, SELFPAY ==
[2025-04-08 18:11] VITALS: BP 142/63; PULSE 83; RESP 16; TEMP 36.7; O2SAT 97; BMI 33.2
--- NOTE | 2025-04-08 18:22 | ED.GENADULT ---
HPI - General Adult General Chief complaint: General Medical Stated complaint: heart monitor placed 2 days ago, not sticking Time Seen by Provider: 04/08/25 18:16 Source: patient, RN notes reviewed, old records reviewed and hose wrapper Mode of arrival: ambulatory Limitations: language barrier History of Present Illness ED Provider: Delmy HPI narrative: 64-year-old male presents for evaluation of ?my heart monitor is not sticking well. ? The patient is following with the cardiology for palpitations and dizziness. He sees cardiology again tomorrow but has a month to her in place that is falling off. He reports they told him he could shower with the however since yesterday it has been feeling off He has no complaints including palpitations or dizziness currently Related Data Home Medications ?Medication ?Instructions ?Recorded ?Confirmed amlodipine 5 mg tablet 5 mg PO DAILY 12/03/24 03/30/25 furosemide 40 mg tablet 40 mg PO DAILY 12/03/24 03/30/25 clotrimazole 1 % topical cream 1 appl topical BID 02/26/25 03/30/25 ferrous gluconate 324 mg (38 mg 324 mg PO 3XW 03/24/25 03/30/25 iron) tablet Previous Rx's ?Medication ?Instructions ?Recorded walker #1 ea 02/08/25 carvedilol 3.125 mg tablet 3.125 mg PO BID #60 tabs 03/02/25 lactulose 10 gram/15 mL oral 45 ml PO TID #1,000 mL 03/26/25 solution rifaximin 550 mg tablet (Xifaxan) 550 mg PO TID #90 tabs 03/26/25 Allergies Allergy/AdvReac Type Severity Reaction Status Date / Time dicyclomine (From Bentyl) Allergy Unknown Verified 04/08/25 18:30 aspirin AdvReac Severe stomach Verified 04/08/25 18:30 bleeding NSAIDS (Non-Steroidal AdvReac Severe liver Verified 04/08/25 18:30 Anti-Inflamma concerns [facility] Past Medical History Medical History (Updated 04/08/25 @ 18:24 by Victorino Kong) Pancytopenia Hyperammonemia Obesity (BMI 30.0-34.9) Cirrhosis of liver Fall Pancytopenia Hepatic encephalopathy Portal vein thrombosis Cirrhosis Splenic vein thrombosis Sepsis Cirrhosis of liver with ascites Abdominal pain Thrombocytopenia Pancytopenia Cirrhosis Hepatitis C virus infection Esophageal varices Pancytopenia Iron deficiency anemia Cirrhosis Hepatitis C HBP (high blood pressure) Surgical History S/P TIPS (transjugular intrahepatic portosystemic shunt) H/O left inguinal hernia repair H/O eye surgery History of esophagogastroduodenoscopy (EGD) H/O colonoscopy Family History Family History Maternal Grandmother Breast CA Uterus cancer Mother Primary lung cancer of unknown cell type Social History Social History Household Members: Other Household Members Other:: mcc Housing: Homeless Housing Other:: [facility] Are you a primary care management specialist to a significant other at home: No Do you presently have visiting nurse or other home services: Yes (VNA) Unable to assess alcohol history related to: Unknown Alcohol intake: former Comment: pt refusing alarm's Patient Tobacco Use Status: Current everyday Tobacco user Tobacco use type: Cigarette Cigarette Packs Per Day: 1 Cigarettes Per Day: 0.5 Years Smoked: 30 e-Cigarette/Vaping Use: Currently Using Second Hand Smoke Exposure: No Substance Use Type: Crack/Cocaine and Marijuana Advance Directives Date on File: 04/02/24 service: No Current occupational status: retired Physical Exam ED Vital Signs: Vital Signs - 24 hr 04/08/25 18:11 Temperature 98.1 F Pulse Rate 83 Respiratory Rate 16 Blood Pressure 142/63 H Pulse Oximetry 97 Oxygen Delivery Method Room Air BMI result Body Mass Index 33.2 Medical Decision Making Medical Decision Making MDM Narrative: The patient's heart monitor was secured with a Tegaderm. He will follow up with the Differential Diagnosis Differential Diagnoses: The differential diagnosis associated with the presentation includes Palpitations Well visit Arrhythmia Hardware failure Discharge Plan Discharge Clinical Impression: Adult wellness visit Patient Disposition: Home, Self-Care Additional Instructions: Follow up with Cardiology tomorrow as planned Your Holter monitor was secured with a Tegaderm Prescriptions: No Action carvedilol 3.125 mg tablet 3.125 mg PO BID Qty: 60 1RF furosemide 40 mg tablet 40 mg PO DAILY amlodipine 5 mg Tablet 5 mg PO DAILY (ALLIE) doris Sam See Rx Instructions .Route Qty: 1 0RF Rx Instructions: As directed clotrimazole 1 % cream 1 appl topical BID ferrous gluconate 324 mg (38 mg iron) tablet 324 mg PO 3XW lactulose 10 gram/15 mL solution 45 ml PO TID Qty: 1000 0RF Xifaxan 550 mg Tablet 550 mg PO TID Qty: 90 0RF Print Language: Ecuadorean
--- NOTE | 2025-04-08 18:30 | PC.NURSE ---
tape and bandaids removed around holter monitor, area cleaned w alcohol, benzoin applied around perimeter of holter monitor tape. tegaderm (modified w hole for monitor) applied overtop. tape applied to reinforce tegaderm. pt educated on tegaderm not being exposed to water. has f/u appt w cardiology tomorrow.
[2025-04-08 18:40] VITALS: BP 142/63; PULSE 83; RESP 16; TEMP 36.7; O2SAT 97
== END 2025-04-08 18:41 | disposition home or self-care (01) ==
PROVIDERS: Emergency Provider Emergency Medicine; PCP Student in an Organized Health Care Education/Training Program
DX: R00.2 Palpitations (principal); Z79.899 Other long term (current) drug therapy
CPT/HCPCS: 99282

== ENCOUNTER 2025-04-11 22:23 | Emergency (ER) | payer MEDICAID, SELFPAY ==
--- NOTE | ~2025-04-11 | CT_ITS ---
CLINICAL HISTORY: fall, head strike unknown CT cervical spine without contrast Comparison: CT/SR - CT CERVICAL SPINE WO IV CON - 01/21/25 17:39 EDT Findings: There is stable minimal degenerative anterolisthesis of C3 on C4, C6 on C7, and C7 on T1 due to facet osteoarthritis. There is no fracture. There is moderate C6-7 degenerative disc disease. There is multilevel facet and uncovertebral joint osteoarthritis with associated neuroforaminal stenoses. IMPRESSION: No evidence of cervical spine injury. This document has been electronically signed by: Gil Tapia MD on 04/12/2025 00:26:58
--- NOTE | ~2025-04-11 | CT_ITS ---
CLINICAL HISTORY: synciope fall, head strike unknown CT head without contrast Comparison: CT/REG/SR - HEAD HEAD_WITHOUT (ADULT) - 03/21/25 12:37 EDT Findings: There is no acute intracranial hemorrhage. Ventricles are within normal limits in size. No mass effect or midline shift is present. The beckman-white matter differentiation appears normal. There is a right globe prosthesis. There is mucosal thickening in the left maxillary sinus similar to the prior CT. Patient is status post left maxillary sinus antrostomy. The mastoids are clear. No fractures are identified. IMPRESSION: No acute intracranial abnormality. This document has been electronically signed by: Gil Tapia MD on 04/12/2025 00:29:20
[2025-04-11 22:42] VITALS: BP 129/48; BP 147/77; PULSE 68; PULSE 70; RESP 16; O2SAT 100; O2SAT 99; BMI 23.1
--- NOTE | 2025-04-11 22:51 | ECG_ITS ---
Test Reason : SYNCOPE Blood Pressure : */* mmHG Vent. Rate : 66 BPM Atrial Rate : 66 BPM P-R Int : 148 ms QRS Dur : 88 ms QT Int : 432 ms P-R-T Axes : 43 22 51 degrees QTcB Int : 452 ms Normal sinus rhythm Normal ECG When compared with ECG of 30-Mar-2025 16:20, No significant change was found Referred By: Cash Reno Electronically Signed By: POP DAVIES MD
--- NOTE | 2025-04-11 22:51 | ED.SYNCOPE ---
HPI - Syncope General Chief Complaint: Syncope Stated Complaint: syncopal episode w/ fall, unwitnessed Time Seen by Provider: 04/11/25 22:50 History of Present Illness ED Provider: Cash Reno MD HPI narrative: [age] with chronic encephalopathy tobacco use among other comorbid medical conditions. Patient was on the floor supine was felt to potentially be unresponsive EMS was called when they arrived there with the patient was awake alert tracking with his eyes but not responding seemed volitional. No tremor no or unclear history whether the patient fell and initially was not responding to questioning but did not appear to be in distress. Was brought in communicating verbally with the EMS C-spine Related Data Home Medications ?Medication ?Instructions ?Recorded ?Confirmed amlodipine 5 mg tablet 5 mg PO DAILY 12/03/24 03/30/25 furosemide 40 mg tablet 40 mg PO DAILY 12/03/24 03/30/25 clotrimazole 1 % topical cream 1 appl topical BID 02/26/25 03/30/25 ferrous gluconate 324 mg (38 mg 324 mg PO 3XW 03/24/25 03/30/25 iron) tablet Previous Rx's ?Medication ?Instructions ?Recorded walker #1 ea 02/08/25 carvedilol 3.125 mg tablet 3.125 mg PO BID #60 tabs 03/02/25 lactulose 10 gram/15 mL oral 45 ml PO TID #1,000 mL 03/26/25 solution rifaximin 550 mg tablet (Xifaxan) 550 mg PO TID #90 tabs 03/26/25 Allergies Allergy/AdvReac Type Severity Reaction Status Date / Time dicyclomine (From Bentyl) Allergy Unknown Verified 04/11/25 22:46 aspirin AdvReac Severe stomach Verified 04/11/25 22:46 bleeding NSAIDS (Non-Steroidal AdvReac Severe liver Verified 04/11/25 22:46 Anti-Inflamma concerns PMFSH Past Medical History Medical History (Updated 04/12/25 @ 00:57 by Cash Reno MD) Pancytopenia Hyperammonemia Obesity (BMI 30.0-34.9) Cirrhosis of liver Fall Pancytopenia Hepatic encephalopathy Portal vein thrombosis Cirrhosis Splenic vein thrombosis Sepsis Cirrhosis of liver with ascites Abdominal pain Thrombocytopenia Pancytopenia Cirrhosis Hepatitis C virus infection Esophageal varices Pancytopenia Iron deficiency anemia Cirrhosis Hepatitis C HBP (high blood pressure) Surgical History S/P TIPS (transjugular intrahepatic portosystemic shunt) H/O left inguinal hernia repair H/O eye surgery History of esophagogastroduodenoscopy (EGD) H/O colonoscopy Family History Family History Maternal Grandmother Breast CA Uterus cancer Mother Primary lung cancer of unknown cell type Social History Social History Household Members: Other Household Members Other:: nursing home Housing: Homeless Housing Other:: nursing home Are you a primary clinical care coordinator to a significant other at home: No Do you presently have visiting nurse or other home services: Yes (VNA) Unable to assess alcohol history related to: Unknown Alcohol intake: former Comment: pt refusing alarm's Patient Tobacco Use Status: Current everyday Tobacco user Tobacco use type: Cigarette Cigarette Packs Per Day: 1 Cigarettes Per Day: 0.5 Years Smoked: 30 e-Cigarette/Vaping Use: Currently Using Second Hand Smoke Exposure: No Substance Use Type: Crack/Cocaine and Marijuana Advance Directives: Yes Advance Directives on File: Yes Advance Directives Date on File: 04/02/24 Do you have a plan to hurt others: No Plan service: No Current occupational status: retired Physical Exam Exam: Exam: EXAM: Gen: Alert, awake, well appearing, well hydrated. Head: Atraumatic Eyes: Left eye Anicteric, Normal conjunctiva. Right eye: Surgically removed this is chronic ENT: Moist mucosa, no pallor. ? Neck: Supple. Skin: ?No observable rash or bruising on exposed or examined skin Respiratory: Breathing comfortably, No distress.Clear to auscultation bilaterally, symmetric chest expansion, No wheeze, rales, ronchi. Cardiovascular: Regular rate and rhythm. No murmurs or rub. Well perfused periphery, warm extremities. No edema. ? Abdominal: No focal tenderness. Soft, no objective distension. No palpable masses or obvious organomegaly. ?No guarding, no rebound tenderness or other peritoneal findings. : No flank tenderness. Neuro: Alert. Gross movement of all extremities intact. ?Oriented no meningismus 5/5 extremity strength with intact sensation light touch. Face symmetric. Psych: Calm. Cooperative. MSK: No grossly visible deformity. Vital signs: See flowsheet Vital Signs: Vital Signs: Last Vital Signs Temp 97.9 F 04/12/25 01:37 Pulse 72 04/12/25 01:37 Resp 18 04/12/25 01:37 BP 113/46 L 04/12/25 01:37 Pulse Ox 100 04/12/25 01:37 O2 Del Method Room Air 04/12/25 01:37 BMI result Body Mass Index 23.1 Medications Administered Discontinued Medications Generic Name Dose Route Start Last Admin Trade Name Freq PRN Reason Stop Dose Admin Lactulose 30 gm 04/11/25 23:48 04/12/25 00:13 Lactulose 20 Gm/30 Ml Solution PO 04/11/25 23:49 Not Given ONCE ONE Medical Decision Making Medical Decision Making MDM Narrative: Medical Decision Makin-year-old male brought in by EMS after he is found on the floor at the homeless nursing home. There was no clinical evidence of trauma on the patient's examination and he does not appear encephalopathic has a not had convulsions LOC or any telemetry events while in the ED. I doubt this is acute significant neurologic or cardiovascular cause unclear whether he fell or syncopized. The patient does have pancytopenia which is chronic and unchanged. He has no intracranial hemorrhage or other trauma on CT head. C-spine also cleared with imaging. Patient has no focal deficits. He is awake alert oriented laughing and conversational. Although his ammonia slightly elevated which it is usually chronically despite adherence with lactulose in the setting of chronic cirrhosis he does not have a clinical picture to suggest hepatic encephalopathy. He declined taking lactulose which I offered him here. Considered admission however this patient is unlikely benefit from admission he and I had a shared decision-making discussion he preferred to go home. I did notify him that if he had a recurrent episode he should return back to the emergency department and he should follow up his GI doctor Preliminary Favored Differential Diagnosis: Syncope, less likely seizure, volitional or behavioral, PNS, hepatic encephalopathy or toxic logic encephalopathy vasovagal syncope among additional considered etiologies Testing Interpreted Independently: Sinus rhythm rate 66 QTC 452, MI 148. No acute ischemic changes Radiology or Lab testing Results Reviewed: Not Applicable Consults: Not Applicable Independent Historians/External Chart Reviews: Not Applicable Social Determinants of Health Impacting MDM/Planning: Not Applicable Lab Data 04/11/25 23:22 04/11/25 23:22 Labs: Lab Results 04/11/25 04/11/25 Range/Units 23:22 23:23 WBC 1.8 L (4.8-10.8) X10*3/uL RBC 3.10 L (4.60-5.80) X10*6/uL Hgb 8.5 L (14.0-18.0) g/dl Hct 25.6 L (42.0-52.0) % MCV 82.6 (80.0-98.0) fL MCH 27.4 (27.0-33.0) pg MCHC 33.2 (31.0-36.0) g/dl RDW 14.6 (11.0-16.0) % Plt Count 24 L (160-400) X10*3/uL MPV Not Reportable Immature Gran % (Auto) 0.0 (0.0-0.4) % Neut % (Auto) 49.7 (45-73) % Lymph % (Auto) 37.3 (20-40) % [place] % (Auto) 11.3 H (2-11) % Eos % (Auto) 1.7 (0-4) % Baso % (Auto) 0.0 (0-2) % Lymph # (Auto) 0.7 L (1.2-4.9) X10*3/uL [place] # (Auto) 0.2 (0.1-1.2) X10*3/uL Eos # (Auto) 0.0 (0.0-0.4) X10*3/uL Baso # (Auto) 0.0 (0.0-0.2) X10*3/uL Abs Immat Gran (auto) 0.00 (0.00-0.03) X10*3/uL Absolute Neuts (auto) 0.9 L (2.0-8.3) x10*3/uL Absolute Nucleated RBC 0.000 (0.0-0.012) X10*3/uL Nucleated RBC % (auto) 0.0 (0.0-0.2) /100WBC Smear Tech's Comments VERIFIED Sodium 143 (135-145) mmol/L Potassium 4.4 (3.3-5.1) mmol/L Chloride 115 H (96-108) mmol/L Carbon Dioxide 25 (22-29) mmol/L Anion Gap 7 L (12-20) BUN 19 H (9-16) mg/dL Creatinine 0.80 (0.5-1.4) mg/dL Estim Creat Clear Calc 103.0 Estimated GFR > 60 Random Glucose 99 (60-115) mg/dL Calcium 8.5 (8.4-10.2) mg/dL Magnesium 2.0 (1.6-2.6) mg/dL Total Bilirubin 0.9 (0.0-1.0) mg/dL AST 39 H (5-37) U/L ALT 25 (0-40) U/L Alkaline Phosphatase 146 H (39-117) U/L Ammonia 120 H (13-55) umol/L Troponin I High Sens 15.8 (<3.5-35.0) ng/L Total Protein 6.0 L (6.5-8.0) g/dL Albumin 2.8 L (3.5-5.0) g/dL Ethyl Alcohol < 10 mg/dL Discharge Plan Discharge Clinical Impression: Syncope Patient Disposition: Home, Self-Care Instructions: Syncope (DC) Additional Instructions: Patient was evaluated for? Syncopal or loss of consciousness event. On arrival the patient was oriented awake had no obvious signs of trauma but head and cervical spine CT was done without injuries basic labs showed chronic pancytopenia and ammonia elevation. He is not clinically encephalopathic. The patient was communicative comfortable oriented and will be discharged home. Unclear etiology of the patient's presenting event could be syncope but unlikely serious or emergent cardiac or neurologic etiology. Prescriptions: No Action carvedilol 3.125 mg tablet 3.125 mg PO BID Qty: 60 1RF furosemide 40 mg tablet 40 mg PO DAILY amlodipine 5 mg Tablet 5 mg PO DAILY (DME) walker Misc See Rx Instructions .Route Qty: 1 0RF Rx Instructions: As directed clotrimazole 1 % cream 1 appl topical BID ferrous gluconate 324 mg (38 mg iron) tablet 324 mg PO 3XW lactulose 10 gram/15 mL solution 45 ml PO TID Qty: 1000 0RF Xifaxan 550 mg Tablet 550 mg PO TID Qty: 90 0RF Interventions: ED Discharge Assessment Last Done: 04/12/25 01:37 Discharge Date/Time: 04/12/25 01:37 Print Language: Indonesian
[2025-04-11 23:27] VITALS: BP 126/40; PULSE 65; RESP 12; TEMP 36.7; O2SAT 100
[2025-04-11 23:31] LABS: Hematocrit 25.6 % (42.0-52.0); Hemoglobin 8.5 g/dl (14.0-18.0); Imm Gran Abs Auto 0.00 X10*3/uL (0.00-0.03); Imm Gran Pct Auto 0.0 % (0.0-0.4); Lymphocytes Absolute Auto 0.7 X10*3/uL (1.2-4.9); MANUAL DIFF FLAG SCAN; Mean Corpuscular HGB Conc 33.2 g/dl (31.0-36.0); Mean Corpuscular Hemoglobin 27.4 pg (27.0-33.0); Mean Corpuscular Volume 82.6 fL (80.0-98.0); NRBC Abs Auto 0.000 X10*3/uL (0.0-0.012); NRBC Pct Auto 0.0 /100WBC (0.0-0.2); Red Blood Count 3.10 X10*6/uL (4.60-5.80); SCAN SMEAR FLAG 1
[2025-04-11 23:35] LABS: Ammonia 120 umol/L (13-55)
[2025-04-11 23:38] LABS: Platelet Count 24 X10*3/uL (160-400); White Blood Count 1.8 X10*3/uL (4.8-10.8)
[2025-04-11 23:42] LABS: Alanine Aminotransferase 25 U/L (0-40); Albumin Level 2.8 g/dL (3.5-5.0); Alkaline Phosphatase 146 U/L (39-117); Anion Gap 7 (12-20); Aspartate Amino Transferase 39 U/L (5-37); Blood Urea Nitrogen 19 mg/dL (9-16); Calcium 8.5 mg/dL (8.4-10.2); Carbon Dioxide 25 mmol/L (22-29); Chloride 115 mmol/L (96-108); Creatinine Clr Calc Pharmacy 103.0; Estimated Glomerular Filt Rate > 60; Potassium 4.4 mmol/L (3.3-5.1); Sodium 143 mmol/L (135-145); Total Protein 6.0 g/dL (6.5-8.0)
[2025-04-11 23:49] LABS: Troponin-I High Sensitivity 15.8 ng/L (<3.5-35.0)
[2025-04-12 00:06] LABS: Magnesium 2.0 mg/dL (1.6-2.6)
--- NOTE | 2025-04-12 00:13 | PC.NURSE ---
assumed care of this pt @2300, attempted to give medicated pt per NOV, pt refused Lactulose, stating that he has a bottle at home that he has already drank, provider made aware
--- NOTE | 2025-04-12 00:14 | PC.NURSE ---
pt at this time asking to remove C-collar, CT scans obtained and pending, provider made aware of pt request to remove collar
[2025-04-12 01:37] VITALS: BP 113/46; PULSE 72; RESP 18; TEMP 36.6; O2SAT 100
== END 2025-04-12 01:37 | disposition home or self-care (01) ==
PROVIDERS: Emergency Provider Emergency Medicine
DX: R55 Syncope and collapse (principal); F17.210 Nicotine dependence, cigarettes, uncomplicated; D61.818 Other pancytopenia; E72.20 Disorder of urea cycle metabolism, unspecified; K76.82 Hepatic encephalopathy; D69.6 Thrombocytopenia, unspecified; D50.9 Iron deficiency anemia, unspecified; K70.31 Alcoholic cirrhosis of liver with ascites; F12.90 Cannabis use, unspecified, uncomplicated; F14.90 Cocaine use, unspecified, uncomplicated
CPT/HCPCS: 36415; 70450; 72125; 80053; 80307; 82140; 83735; 84484; 85025; 93005; 99284

== ENCOUNTER → 2025-04-11 22:51 | Outpatient (BNV) | payer MEDICAID, SELFPAY | PROVIDERS: Emergency Provider Emergency Medicine; Visit Provider Internal Medicine Cardiovascular Disease | DX: R55 Syncope and collapse (principal) | CPT/HCPCS: 93010 ==

== ENCOUNTER → 2025-04-11 22:51 | Outpatient (BNV) | payer MEDICAID, SELFPAY | PROVIDERS: Emergency Provider Emergency Medicine; Visit Provider Radiology Diagnostic Radiology | DX: M43.12 Spondylolisthesis, cervical region (principal); R55 Syncope and collapse | CPT/HCPCS: 70450; 72125 ==

== ENCOUNTER 2025-04-21 10:37 | Outpatient (REF) | payer MEDICAID, SELFPAY ==
--- OUTSIDE RECORDS SUMMARY | 2025-04-21 11:43 | XMS_ITS | Encounter Summary ---
Author Organization [employer] Address [address] [facility] 7[address] [place] [address] Care Team Providers Care Thread Trimmer Name Role Phone Leta Soto MD Primary Care Pro vider Yajaira Antonio Unavailable Encounter Details Date Type Department Care Team (Late st Contact Info) Description 03/17/2025 Results Follow-Up [facility] [address] [place] [address] Leta Soto MD [address] [place] [address] XR Chest 2 Views Social History Tobacco [...] Description 06/09/2025 9:45 AM EDT Office Visit [facility] [address] [place] [phone] Leta Soto MD [address] [place] [address] documented as of this encounter Goals Goal Patient Goal Type Associated Problems Recent Progress Patient-Stated? Author Blood Pressure < 140/90 Blood Pressure 146/72(2024 9:16 AM EDT) No Loan Talbot Record your blood pressure once per day Blood Pressure No Loan Talbot documented as of this encounter Visit Diagnoses Not on filedocumented in this encounter Additional Health Concerns Assessment Noted Time PHQ-9 Depression Total Score: 0 03/12/20 25 10:25 AM EDT documented as of this encounter Care Teams Thread Trimmer Relationship Specialty Start Date End Date Leta Soto MD [address] [place] [id number] PCP - General Internal Medicine 04/11/23 Yajaira Antonio [address] [place] [address] 3rd [place] [address] Gastroenterology 09/04/24 [facility] 01/28/25 documented as of this encounter
--- OUTSIDE RECORDS SUMMARY | 2025-04-21 11:43 | XMS_ITS | Clinical Summary ---
Author Organization [facility] Address [address] [facility] [address] [place] [phone] Phone Care Team Providers Care Nutrition Instructor Name Role Phone Leta Soto MD Primary Care Pro vider Allergies Active Allergy Reactions Criticality Noted Date Comments Aspirin 04/20/2025 GI upset and bleeding Dicyclomine 05/26/2023 Ibuprofen 04/20/2025 GI upset Medications No known medications Encounters Date Type Department Care Team Description 04/20/2025 1:15 PM EDT Office Visit [facility] [address] 10th [place] [address] Michela Matt MD 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) 01/22/2025 Orders Only [facility] [address] [place] [address] Homehealth, Interface ProviderMD from Last 3 Months [...] Orientation Not on file Plan of Treatment Health Maintenance Due Date Last Done Comments DEPRESSION SCREENING 1973 SMOKING Hx and SMOKELESS TOB ACCO SCREENING 1974 HEPATITIS C SCREENING 12/03/1979 HIV ONE-TIME SCREENING (18-6 5 YEARS) 12/03/1979 COLOGUARD 2006 COLONOSCOPY 2006 COLORECTAL CANCER SCREENING 2006 FIT TEST 2006 FOBT 2006 SIGMOIDOSCOPY 2006 VIRTUAL COLONOSCOPY 2006 PNEUMOCOCCAL VACCINES (50+ y ears) (1 of 1 - PCV) 12/03/2011 ZOSTER VACCINES (1 of 2) 12/03/2011 COVID-19 VACCINE (1 - 2023-2 5 season) 2024 LIPID PANEL 04/06/2028 04/06/2023 Adult Td,Tdap Booster 05/25/2033 05/25/2023 RSV VACCINE (1 - 1-dose 75+ series) [...] topic Medical Devices Not on file Insurance [facility] C3 ACO C3 ACO C3 ACO C3 ACO [place] [place] [address] [place] [address] C3 ACO Care Teams Nutrition Instructor Relationship Specialty Start Date End Date Leta Soto MD [address] [place] [phone] PCP - General Internal Medicine 01/05/25 Additional Source Comments The information contained in this document represents components of the legal health record. It is not the complete legal health record.[facility]
[2025-04-22 03:50] LABS: Syphilis Screen Nonreactive (Nonreactive)
[2025-04-22 04:11] LABS: ~HepC Num1 12.86 S/CO (0.00-0.79); ~Hepatitis C Antibody Reactive (Nonreactive)
[2025-04-23 23:53] LABS: HIV RNA PCR Qn Copies NOT DETECTED copies/mL (NOT DETECTED); HIV RNA PCR Qn Log Copies NOT DETECTED (NOT DETECTED)
[2025-04-24 00:39] LABS: HCV Log PCR <1.18 NOT DETECTED Log IU/mL (NOT DETECTED); HepC Viral Load <15 NOT DETECTED IU/mL (NOT DETECTED)
== END 2025-04-21 10:38 | disposition home or self-care (01) ==
LOC: HO.HHCL 10:37
PROVIDERS: PCP Student in an Organized Health Care Education/Training Program; Visit Provider Student in an Organized Health Care Education/Training Program
DX: Z00.00 Encounter for general adult medical examination without abnormal findings (principal); R42 Dizziness and giddiness; Z11.3 Encounter for screening for infections with a predominantly sexual mode of transmission; Z11.4 Encounter for screening for human immunodeficiency virus [HIV]; Z11.59 Encounter for screening for other viral diseases; Z79.899 Other long term (current) drug therapy
CPT/HCPCS: 36415; 86592; 86780; 86803; 87522; 87536; 99212

== ENCOUNTER 2025-04-21 14:27 | Outpatient (AMB) | payer MEDICAID, SELFPAY ==
--- NOTE | 2025-04-21 14:40 | MHC.OFFVIS ---
Vital Signs 04/21/25 14:41 04/21/25 15:40 04/21/25 15:42 Height 6 ft Weight 210 lb 12.191 oz BMI 28.6 BP 112/54 L 162/70 H 181/78 H Blood Pressure Location Lt brachial Lt brachial Lt brachial Position Sitting Sitting Standing Pulse 77 70 80 Pulse Source Pulse Oximeter Intake Visit Reasons: 6 wk f/up holter Steaming Cabinet Tender Required: Yes Steaming Cabinet Tender Name: Voyce/ puerto rican Darcy [phone] Accompanied by: Self / Same As Patient Allergies dicyclomine (From Bentyl) Allergy (Verified 04/11/25 22:46) Unknown aspirin Adverse Reaction (Severe, Verified 04/11/25 22:46) stomach bleeding NSAIDS (Non-Steroidal Anti-Inflamma Adverse Reaction (Severe, Verified 04/11/25 22:46) liver concerns Medication List - Last Reconciled 04/21/25 by Madi Hernandez NP amlodipine 5 mg PO DAILY carvedilol 3.125 mg PO BID furosemide 40 mg PO DAILY walker As directed HPI Comments Details: This is a 64-year-old male patient coming in for a follow-up visit. A plate worker was used throughout the visit. Patient with a history of hepatic encephalopathy, liver cirrhosis who was in the hospital and was consulted to Cardiology for dizziness. Patient underwent a Holter study following this to look for any possible arrhythmias. This was negative. Today, patient continues to report ongoing dizziness and states that he thinks it is because of all the medications he is on including amlodipine, carvedilol, and Lasix. Patient is not on any of his medications for hepatic encephalopathy or liver cirrhosis. Looking at previous notes, that seems to be noncompliance with his medications. However, patient states that he lives in the fdc and used to have a nurse who would manage his medications. Patient is otherwise denying any exertional chest pain, shortness of breath, palpitations, orthopnea, PND, leg edema, presyncope, or syncope. Patient also states that his PCP is reducing 1 of his blood pressure medications and was sure which one. [facility] Medical History Pancytopenia Hyperammonemia Obesity (BMI 30.0-34.9) Cirrhosis of liver Fall Pancytopenia Hepatic encephalopathy Portal vein thrombosis Cirrhosis Splenic vein thrombosis Sepsis Cirrhosis of liver with ascites Abdominal pain Thrombocytopenia Pancytopenia Cirrhosis Hepatitis C virus infection Esophageal varices Pancytopenia Iron deficiency anemia Cirrhosis Hepatitis C HBP (high blood pressure) Surgical History S/P TIPS (transjugular intrahepatic portosystemic shunt) H/O left inguinal hernia repair H/O eye surgery History of esophagogastroduodenoscopy (EGD) H/O colonoscopy Family History Maternal Grandmother Breast CA Uterus cancer Mother Primary lung cancer of unknown cell type Social History Household Members: Other Household Members Other:: fdc Housing: Homeless Housing Other:: fdc Are you a primary rn palliative care to a significant other at home: No Do you presently have visiting nurse or other home services: Yes (VNA) Unable to assess alcohol history related to: Unknown Alcohol intake: former Comment: pt refusing alarm's Patient Tobacco Use Status: Current everyday Tobacco user Tobacco use type: Cigarette Cigarette Packs Per Day: 1 Cigarettes Per Day: 0.5 Years Smoked: 30 e-Cigarette/Vaping Use: Currently Using Second Hand Smoke Exposure: No Substance Use Type: Crack/Cocaine and Marijuana Advance Directives Date on File: 04/02/24 service: No Current occupational status: retired Review of Systems Const Denies daytime sleepiness, Denies difficulty sleeping, Denies snoring, Denies stops breathing during sleep and Denies weakness ENT Reports dizziness Card Denies chest pain, Denies rapid heart rate, Denies irregular heart rhythm, Denies claudication, Denies leg edema, Reports palpitations, Denies dyspnea, Denies dyspnea on exertion, Denies orthopnea, Denies paroxysmal nocturnal dyspnea and Denies slow heart rate Resp Denies cough, Denies dyspnea, Denies dyspnea on exertion and Denies snoring GI Reports no additional complaints, Denies hematochezia, Denies change in stool character and Denies dyspepsia Musc Denies abnormal gait, Denies muscle weakness and Denies numbness Neuro Denies abnormal gait, Reports dizziness, Denies numbness and Denies weakness Endo Reports palpitations Physical Exam Vital Signs: Last Vital Signs Pulse 77 04/21/25 14:41 BP 122/54 L 04/21/25 14:41 BMI result Body Mass Index 28.6 Const General: cooperative, healthy appearing, comfortable and no acute distress Orientation/consciousness: patient oriented x3 HEENT Head: Yes normal to inspection Neck Neck: Yes normal visual inspection, Yes trachea midline and Yes supple Chest Chest palpation & inspection: normal inspection of the chest Resp Effort & Inspection: normal respiratory effort Auscultation: clear to auscultation bilaterally, no crackles, no rales, no rhonchi and no wheezes Cardio Jugular venous distension: no JVD Palpation: normal PMI Rate: regular rate Rhythm: regular rhythm Heart sounds: S1 normal heart sound present, S2 normal heart sound present, no click, no gallops, no murmurs and no rubs Peripheral pulses: Peripheral pulses 2+ throughout GI Inspection: Yes normal to inspection Palpation (GI): Soft to palpation Auscultation: normal bowel sounds Skin General skin exam: no rashes or lesions noted Neuro General: patient oriented x3 Extrem General: Yes normal to inspection, No no pedal edema and No calf tenderness Psych Appearance: grossly normal Mental Status: mental status grossly normal Speech and movement: Normal speech and movement present Assessment & Plan Assessment & Plan (1) Dizziness: Code(s): R42 - Dizziness and giddiness Category: Medical Plan: 10/13/2024-echo study showed normal LV systolic function with an ejection fraction between 60-65%, with mildly increased LV wall thickness, and moderately dilated left atrium. 04/07/2025-Holter study showed underlying normal sinus rhythm with an average heart rate of 73 beats per minute, rare supraventricular and ventricular ectopies. Patient's markers of symptoms correlated with sinus rhythm. Initially given all of symptoms, it was thought that patient's blood pressures may has been low and that could has been the reasons for his symptoms. Initially plan was to adjust his medications. However, when patient was walking to his check out, he started getting very dizzy and needed to be sat down. Believing this was orthostatics, we got orthostatic blood pressure and that was negative. Instead, patient's blood pressure was higher. He did not have any other associated symptoms. Given this, patient advised to continue taking his regular medications without any adjustment in the medications. Patient verbalizes understanding of this. Patient is no longer on any lactulose or his regular medications for liver cirrhosis and hepatic encephalopathy. Most likely his symptoms related to this, especially given his benign cardiac workup. Patient was recommended to go to the ER to get evaluated further however patient is refusing. Patient initially planned to walk back to his fdc however due to safety concerns, the office contacted his niece to come and pick the patient up. Patient was wheeled out to the waiting area for niece to pick up truck driver. Advised patient to seek ER care in case of ongoing symptoms. In the interim, I will message Gastroenterology to let them know of the current situation and to see if he can be seen sooner. We will also fax this note over to his PCP's office. This note was generated using voice recognition software. While every effort has been made to ensure accuracy and proper tetryl screen operator, there may be occasional errors that could affect the content or meaning of the described symptoms. Medications: New amlodipine 5 mg PO DAILY 90 tabs 0RF Changed From furosemide 20 mg PO DAILY To furosemide 40 mg PO DAILY Coding Level of Care Code Est Pt Level 5 (56604) Complex EM visit Add On G2211 Diagnoses Dizziness R42 Time Spent (min) 40 Comment Time spent in reviewing the chart, test results, assessment, counseling and documentation.
[2025-04-21 14:41] VITALS: BP 112/54; PULSE 77; BMI 28.6
[2025-04-21 15:40] VITALS: BP 162/70; PULSE 70
[2025-04-21 15:42] VITALS: BP 181/78; PULSE 80
== END 2025-04-21 16:03 | disposition home or self-care (01) ==
LOC: HO.HCS 14:28
PROVIDERS: PCP Student in an Organized Health Care Education/Training Program
DX: R42 Dizziness and giddiness (principal)
CPT/HCPCS: 99215

== ENCOUNTER 2025-05-02 19:08 | Inpatient (IN) | payer MEDICAID, SELFPAY ==
--- NOTE | ~2025-05-02 | XR_ITS ---
CLINICAL HISTORY: weakness 1 view chest x-ray Comparison: CR - XR CHEST 1V - 03/24/25 21:57 EDT Findings: Right infrahilar patchy opacities/atelectasis No significant pleural effusion or pneumothorax. Similar prominent/enlarged cardiac silhouette. No acute fracture. Rotation limits evaluation. IMPRESSION: Right infrahilar patchy opacities/atelectasis This document has been electronically signed by: Carlos Lance MD on 05/02/2025 22:48:46
--- NOTE | ~2025-05-02 | CT_ITS ---
CLINICAL HISTORY: altered mental status CT head without contrast Comparison: Head CT 02/28/2025 Findings: No intra-axial mass, midline shift, hydrocephalus, or acute hemorrhage. No significant atrophy-like change or white matter disease. Hypoplastic left maxillary sinus with lobulated mucosal thickening. Redemonstrated right globe prosthesis No skull fracture. Leftward nasal deviation with spurring. Periapical lucencies, in keeping with periodontal disease. Left lens extraction. IMPRESSION: 1. No acute intracranial findings. This document has been electronically signed by: Carlos Lance MD on 05/02/2025 22:02:13
[2025-05-02 19:28] VITALS: BP 197/64; PULSE 104; BMI 31.2
--- NOTE | 2025-05-02 19:31 | ED.GENADULT ---
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 Apparently neighbors were concerned that they had not heard from the patient and called for a well visit. The patient was unable to answer questions or follow commands on arrival and was reportedly violent for EMS. The patient does not provide much history except ?I want to go home and I need to leave. ? He seems unsteady in his feet but continues to ambulate, moving all extremities Related Data Home Medications ?Medication ?Instructions ?Recorded ?Confirmed furosemide 40 mg tablet 40 mg PO DAILY 04/21/25 04/21/25 Previous Rx's ?Medication ?Instructions ?Recorded walker #1 ea 02/08/25 carvedilol 3.125 mg tablet 3.125 mg PO BID #60 tabs 03/02/25 amlodipine 5 mg tablet 5 mg PO DAILY #90 tabs 04/21/25 Allergies Allergy/AdvReac Type Severity Reaction Status Date / Time dicyclomine (From Bentyl) Allergy Unknown Verified 05/02/25 19:29 aspirin AdvReac Severe stomach Verified 05/02/25 19:29 bleeding NSAIDS (Non-Steroidal AdvReac Severe liver Verified 05/02/25 19:29 Anti-Inflamma concerns Review of Systems Review of Systems: Yes Unobtainable due to mental status Constitutional: Constitutional: Denies body ache(s), Denies chills and Denies fever(s) Gastrointestinal: Gastrointestinal: Denies nausea and Denies vomiting PMF Past Medical History Medical History Pancytopenia Hyperammonemia Obesity (BMI 30.0-34.9) Cirrhosis of liver Fall Pancytopenia Hepatic encephalopathy Portal vein thrombosis Cirrhosis Splenic vein thrombosis Sepsis Cirrhosis of liver with ascites Abdominal pain Thrombocytopenia Pancytopenia Cirrhosis Hepatitis C virus infection Esophageal varices Pancytopenia Iron deficiency anemia Cirrhosis Hepatitis C HBP (high blood pressure) Surgical History S/P TIPS (transjugular intrahepatic portosystemic shunt) H/O left inguinal hernia repair H/O eye surgery History of esophagogastroduodenoscopy (EGD) H/O colonoscopy Family History Family History Maternal Grandmother Breast CA Uterus cancer Mother Primary lung cancer of unknown cell type Social History Social History Household Members: Other Household Members Other:: intermediate Housing: Homeless Housing Other:: intermediate Are you a primary geriatric care manager to a significant other at home: No Do you presently have visiting nurse or other home services: Yes (VNA) Unable to assess alcohol history related to: Unknown Alcohol intake: former Comment: pt refusing alarm's Patient Tobacco Use Status: Current everyday Tobacco user Tobacco use type: Cigarette Cigarette Packs Per Day: 1 Cigarettes Per Day: 0.5 Years Smoked: 30 e-Cigarette/Vaping Use: Currently Using Second Hand Smoke Exposure: No Substance Use Type: Crack/Cocaine and Marijuana Advance Directives: Yes Advance Directives on File: Yes Advance Directives Date on File: 04/02/24 service: No Current occupational status: retired Physical Exam ED Vital Signs: Vital Signs - 24 hr 05/02/25 19:39 05/02/25 20:42 Temperature 97.8 F Pulse Rate 87 75 Respiratory Rate 26 H 14 Blood Pressure 135/44 L 131/41 L Pulse Oximetry 96 98 Oxygen Delivery Method Room Air Room Air BMI result Body Mass Index 31.2 Const General: comfortable, alert and awake; No no acute distress Nutritional Appearance: well nourished Limitations: altered mental status and behavioral limitations HENMT Head: Yes normocephalic and Yes atraumatic Eyes Eyelids: Yes eyelids normal Conjunctivae: conjunctivae normal Sclerae: sclerae normal Corneas: corneas normal Pupils: Equal, round and reactive pupils present EOM: EOMs intact bilaterally Neck Neck: Yes full ROM Resp Effort & Inspection: normal respiratory effort, able to speak in complete sentences and not labored Skin General skin exam: elasticity normal Neuro Cranial nerves: Yes Equal, round and reactive pupils present and Yes Bilaterally intact EOM present Extrem Other: Moving all extremities well without any obvious deformities Course Reevaluation(s) Reevaluation #1: Patient just arrived via EMS after a wellness check and he is reportedly confused. He is well known to this department for similar presentations. He has a long history of hepatic encephalopathy with the occasional agitation. There were numerous attempts to redirect the patient back to his bed but he is quite confused it appears. He is not redirectable. He was given midazolam IM as a chemical restraint. Workup is pending Time: 19:31 Reevaluation #2: Patient is signed out to overnight staff pending into CT brain, chest x-ray, urinalysis. I anticipate admission due to hepatic encephalopathy. Time: 21:56 Reevaluation #3: I Bhavana Christensen PA-C have accepted care of the patient and signed out pending imaging, relaying information to the hospitalist, and admission Chest x-ray:MPRESSION: Right infrahilar patchy opacities/atelectasis Head CT:Findings: No intra-axial mass, midline shift, hydrocephalus, or acute hemorrhage. No significant atrophy-like change or white matter disease. Hypoplastic left maxillary sinus with lobulated mucosal thickening. Redemonstrated right globe prosthesis No skull fracture. Leftward nasal deviation with spurring. Periapical lucencies, in keeping with periodontal disease. Left lens extraction. IMPRESSION: 1. No acute intracranial findings. Medications Administered Discontinued Medications Generic Name Dose Route Start Last Admin Trade Name Freq PRN Reason Stop Dose Admin Midazolam HCl 5 mg 05/02/25 19:22 05/02/25 19:26 Midazolam Hcl 5 Mg/Ml Vial IM 05/02/25 19:23 5 mg ONCE ONE Administration Olanzapine 10 mg 05/02/25 19:59 05/02/25 20:04 Olanzapine 10 Mg Vial IM 05/02/25 20:00 10 mg STAT STA Administration Medical Decision Making Medical Decision Making MDM Narrative: 64-year-old male presents for evaluation of altered mental status. The patient's neighbors apparently were concerned about the patient being confused. On arrival to the ED the patient is combative and somewhat confused. He is not redirectable and just demanding to leave. He does not seem oriented to place or time. The patient was medicated for staff safety and the safety of the patient on arrival. Workup was ordered that included basic labs including ammonia, CT scan of the brain, urinalysis, chest x-ray, EKG. On arrival to the ED, the patient is afebrile, he is quite anxious and tachypneic at 26 but he is not hypoxic and does not appear to be in respiratory distress. Heart rate of 87. His blood pressure is stable at 130 5/44. There was no evidence of infectious process. Differential Diagnosis Differential Diagnoses: The differential diagnosis associated with the presentation includes Hepatic encephalopathy Delirium CVA less likely UTI less likely Admission/Observation Consideration of admission/observation: Escalation of care including admission/observation considered Lab Data MDM Lab Attestation statement: I reviewed the patient's lab results. The patient has chronic pancytopenia secondary to hepatitis-C liver cirrhosis. His white count of 1.7, blood counts of 8.4 and 25.1 respectively with a thrombocytopenia 23 year all consistent with his baseline. He has no significant electrolyte abnormalities. Carbon dioxide level is slightly low at 20, renal function are normal limits. The patient has a chronic transaminitis. Ammonia is elevated to 162. 05/02/25 20:20 05/02/25 20:20 Labs: Lab Results 05/02/25 Range/Units 20:20 WBC 1.7 L (4.8-10.8) X10*3/uL RBC 3.09 L (4.60-5.80) X10*6/uL Hgb 8.4 L (14.0-18.0) g/dl Hct 25.1 L (42.0-52.0) % MCV 81.2 (80.0-98.0) fL MCH 27.2 (27.0-33.0) pg MCHC 33.5 (31.0-36.0) g/dl RDW 14.2 (11.0-16.0) % Plt Count 23 L (160-400) X10*3/uL MPV Not Reportable Immature Gran % (Auto) 0.0 (0.0-0.4) % Neut % (Auto) 46.1 (45-73) % Lymph % (Auto) 41.3 H (20-40) % Kings % (Auto) 11.4 H (2-11) % Eos % (Auto) 1.2 (0-4) % Baso % (Auto) 0.0 (0-2) % Lymph # (Auto) 0.7 L (1.2-4.9) X10*3/uL Kings # (Auto) 0.2 (0.1-1.2) X10*3/uL Eos # (Auto) 0.0 (0.0-0.4) X10*3/uL Baso # (Auto) 0.0 (0.0-0.2) X10*3/uL Abs Immat Gran (auto) 0.00 (0.00-0.03) X10*3/uL Absolute Neuts (auto) 0.8 L (2.0-8.3) x10*3/uL Absolute Nucleated RBC 0.000 (0.0-0.012) X10*3/uL Nucleated RBC % (auto) 0.0 (0.0-0.2) /100WBC Smear Tech's Comments VERIFIED Sodium 143 (135-145) mmol/L Potassium 3.9 (3.3-5.1) mmol/L Chloride 119 H (96-108) mmol/L Carbon Dioxide 20 L (22-29) mmol/L Anion Gap 8 L (12-20) BUN 15 (9-16) mg/dL Creatinine 0.82 (0.5-1.4) mg/dL Estim Creat Clear Calc 105.3 Estimated GFR > 60 Random Glucose 100 (60-115) mg/dL Calcium 8.4 (8.4-10.2) mg/dL Magnesium 2.0 (1.6-2.6) mg/dL Total Bilirubin 1.1 H (0.0-1.0) mg/dL AST 42 H (5-37) U/L ALT 32 (0-40) U/L Alkaline Phosphatase 128 H (39-117) U/L Ammonia 162 H (13-55) umol/L Total Protein 6.1 L (6.5-8.0) g/dL Albumin 2.8 L (3.5-5.0) g/dL Lipase 41 (8-78) U/L Ethyl Alcohol < 10 mg/dL Radiology Impression Discussion of test interpretation with radiology: I have reviewed the radiologist's reading. Discharge Plan Discharge Clinical Impression: Acute hepatic encephalopathy Patient Disposition: Admitted As Inpatient
[2025-05-02 19:39] VITALS: BP 135/44; PULSE 87; RESP 26; TEMP 36.6; O2SAT 96
--- OUTSIDE RECORDS SUMMARY | 2025-05-02 19:47 | XMS_ITS | Encounter Summary ---
Author Organization [employer] Address [address] [facility] [address] [place] [address] Care Team Providers Care Link Machine Operator Name Role Phone eLta Soto MD Primary Care Pro vider Yajaira Antonio Unavailable Encounter Details Date Type Department Care Team (Late st Contact Info) Description 03/17/2025 Results Follow-Up [facility] [address] [place] [address] Leta Soto MD [address] [place] [address] XR Chest 2 Views Social History Tobacco [...] Description 06/09/2025 9:45 AM EDT Office Visit [facility] [address] [place] [phone] Leta Soto MD [address] [place] [address] documented as of this encounter Goals Goal [...] documented as of this encounter Care Teams Link Machine Operator Relationship Specialty Start Date End Date Leta Soto MD [address] [place] [phone] PCP - General Internal Medicine 04/11/23 Yajaira Antonio [address] [place] [address] 3rd [place] [address] Gastroenterology 09/04/24 [facility] 01/28/25 documented as of this encounter
[2025-05-02] MEDS: OLANZapine 10 MG VIAL IM (20:04)
[2025-05-02 20:28] LABS: Hematocrit 25.1 % (42.0-52.0); Hemoglobin 8.4 g/dl (14.0-18.0); Imm Gran Abs Auto 0.00 X10*3/uL (0.00-0.03); Imm Gran Pct Auto 0.0 % (0.0-0.4); Lymphocytes Absolute Auto 0.7 X10*3/uL (1.2-4.9); MANUAL DIFF FLAG SCAN; Mean Corpuscular HGB Conc 33.5 g/dl (31.0-36.0); Mean Corpuscular Hemoglobin 27.2 pg (27.0-33.0); Mean Corpuscular Volume 81.2 fL (80.0-98.0); NRBC Abs Auto 0.000 X10*3/uL (0.0-0.012); NRBC Pct Auto 0.0 /100WBC (0.0-0.2); Red Blood Count 3.09 X10*6/uL (4.60-5.80); SCAN SMEAR FLAG 1
[2025-05-02 20:34] LABS: Ammonia 162 umol/L (13-55); Platelet Count 23 X10*3/uL (160-400); White Blood Count 1.7 X10*3/uL (4.8-10.8)
[2025-05-02 20:42] VITALS: BP 131/41; PULSE 75; RESP 14; O2SAT 98
[2025-05-02 20:44] LABS: Alanine Aminotransferase 32 U/L (0-40); Albumin Level 2.8 g/dL (3.5-5.0); Alkaline Phosphatase 128 U/L (39-117); Anion Gap 8 (12-20); Aspartate Amino Transferase 42 U/L (5-37); Blood Urea Nitrogen 15 mg/dL (9-16); Calcium 8.4 mg/dL (8.4-10.2); Carbon Dioxide 20 mmol/L (22-29); Chloride 119 mmol/L (96-108); Creatinine Clr Calc Pharmacy 105.3; Estimated Glomerular Filt Rate > 60; Lipase 41 U/L (8-78); Magnesium 2.0 mg/dL (1.6-2.6); Potassium 3.9 mmol/L (3.3-5.1); Sodium 143 mmol/L (135-145); Total Protein 6.1 g/dL (6.5-8.0)
[2025-05-02 21:55] VITALS: BP 143/51; PULSE 72; RESP 19; O2SAT 96
[2025-05-02 22:24] VITALS: BP 120/64; PULSE 69; RESP 15
[2025-05-02 23:24] VITALS: BP 119/42; PULSE 63; RESP 14
--- NOTE | 2025-05-02 23:44 | P.HPHOSP_ITS ---
History of Present Illness Date of Service: 05/02/25 Attending physician on admission: Mikey Lopez Chief Complaint: AMS Pt unable to provide any HPI, PMH, or PSH due to sedation. Pt received versed and zyprexa in ED as a chemical restraint due to pt's escalating behaviors. 1:[address] 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 The patient was unable to answer questions or follow commands on arrival and was reportedly violent for EMS. The patient does not provide much history except ?I want to go home and I need to leave. ? He seems unsteady in his feet but continues to ambulate, moving all extremities Ammonia 162. Baseline ammonia 80-120. One dose of lactulose ordered in ED, not clear if pt was able to take prior to sedation. HEAD CT negative for any acute findings. CXR with R hilar patch opacities. No evidence of hypoxia and pt is on room air. Hemodynamics stable. No fever. Unable to complete ROS due to pt's level of sedation. Pt is able to open eyes momentarily but goes back to sleep. Review of Systems 2 Review of Systems: Yes Unobtainable due to mental condition [facility] Medical History Pancytopenia Hyperammonemia Obesity (BMI 30.0-34.9) Cirrhosis of liver Fall Pancytopenia Hepatic encephalopathy Portal vein thrombosis Cirrhosis Splenic vein thrombosis Sepsis Cirrhosis of liver with ascites Abdominal pain Thrombocytopenia Pancytopenia Cirrhosis Hepatitis C virus infection Esophageal varices Pancytopenia Iron deficiency anemia Cirrhosis Hepatitis C HBP (high blood pressure) Cognitive capacity: sedated on room air, arousable Functional capacity: independent ambulation Family History Maternal Grandmother Breast CA Uterus cancer Mother Primary lung cancer of unknown cell type Surgical History S/P TIPS (transjugular intrahepatic portosystemic shunt) H/O left inguinal hernia repair H/O eye surgery History of esophagogastroduodenoscopy (EGD) H/O colonoscopy Social History Household Members: Other Household Members Other:: custodial Housing: Homeless Housing Other:: custodial Are you a primary youth care specialist to a significant other at home: No Do you presently have visiting nurse or other home services: Yes (VNA) Unable to assess alcohol history related to: Unknown Alcohol intake: former Comment: pt refusing alarm's Patient Tobacco Use Status: Current everyday Tobacco user Tobacco use type: Cigarette Cigarette Packs Per Day: 1 Cigarettes Per Day: 0.5 Years Smoked: 30 e-Cigarette/Vaping Use: Currently Using Second Hand Smoke Exposure: No Substance Use Type: Crack/Cocaine and Marijuana Advance Directives: Yes Advance Directives on File: Yes Advance Directives Date on File: 04/02/24 service: No Current occupational status: retired Ebola Risk: Travel/Contact With Anyone From Affected Area/s: No Has Patient Experienced Ebola Symptoms: No Meds Allergies Allergy/AdvReac Type Severity Reaction Status Date / Time dicyclomine (From Bentyl) Allergy Unknown Verified 05/02/25 19:29 aspirin AdvReac Severe stomach Verified 05/02/25 19:29 bleeding NSAIDS (Non-Steroidal AdvReac Severe liver Verified 05/02/25 19:29 Anti-Inflamma concerns Active Medications: Current Medications Acetaminophen (Acetaminophen 325 Mg Tablet) 650 mg PO Q6H PRN PRN Reason: Pain, Mild 1-3,fever,headache Melatonin (Melatonin 3 Mg Tablet) 6 mg PO BEDTIME PRN PRN Reason: Insomnia Sodium Chloride (0.9 % Sodium Chloride Flush 3 Ml Syringe) 3 ml IVFLUSH QSHIFT [facility] Home Medications ?Medication ?Instructions ?Recorded ?Confirmed ?Last Taken ?Type furosemide 40 mg tablet 40 mg PO DAILY 04/21/2504/10 Unknown History Physical Exam 2 Vital Signs and Narrative: Vital Signs: Last Vital Signs Temp 97.8 F 05/02/25 19:39 Pulse 75 05/02/25 20:42 Resp 14 05/02/25 20:42 BP 131/41 L 05/02/25 20:42 Pulse Ox 98 05/02/25 20:42 O2 Del Method Room Air 05/02/25 20:42 BMI result Body Mass Index 31.2 Pt sedated, easily arousable Head normocephalic, atraumatic oral mucosa moist, no epistaixs Lungs dimsinshed B S1S2 RRR, no murmur, no JVD ABD distended, soft BLE edema moderate , DP, PTpulses palpable, skin warm unable to evaluate neuro, psych at this time Results Labs 05/02/25 20:20 05/02/25 20:20 Labs: Laboratory Results - last 24 hr 05/02/25 20:20 MCV 81.2 MCH 27.2 MCHC 33.5 RDW 14.2 Plt Count 23 L MPV Not Reportable Immature Gran % (Auto) 0.0 Neut % (Auto) 46.1 Lymph % (Auto) 41.3 H Coles % (Auto) 11.4 H Eos % (Auto) 1.2 Baso % (Auto) 0.0 Lymph # (Auto) 0.7 L Coles # (Auto) 0.2 Eos # (Auto) 0.0 Baso # (Auto) 0.0 Abs Immat Gran (auto) 0.00 Absolute Neuts (auto) 0.8 L Absolute Nucleated RBC 0.000 Nucleated RBC % (auto) 0.0 Smear Tech's Comments VERIFIED Anion Gap 8 L Estim Creat Clear Calc 105.3 Estimated GFR > 60 Random Glucose 100 Calcium 8.4 Magnesium 2.0 Total Bilirubin 1.1 H AST 42 H ALT 32 Alkaline Phosphatase 128 H Ammonia 162 H Total Protein 6.1 L Albumin 2.8 L Lipase 41 Ethyl Alcohol < 10 Imaging Radiologist's Impressions: HEAD CT negative for acute findings CXR R hilar patchy opacities Assessment and Plan (1) Acute hepatic encephalopathy: Status: Acute Plan Pt is a 64-year-old male with past medical history significant for 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 Pt has been living in a hotel with hx of living in shelters. Pt has been seen multiple times in the ED for encephalopathy related to Hepatitis. Pt required chemical restraint in the ED with versed and zyprexa and is currently sedated but minimally arousable on room air. This continuity writer is not able to obtain HPI, ROS, PMH, or PSH from pt at this time. Plan is to admit pt for encephalopathy with suspicion for PNA/ aspiration. UA pending. Encephalopathy secondary to hepatitis C GI consulted Lactulose one dose provided in ED Continue Lactulose rectally until pt is able to tolerate po lactulose If chemical restraint continues to be required and pt cannot tolerate rectal lactulose, may need to consider NG tube Pt is not listed as being on Rifaximin, will order and can start once pt is awake and has bedsise swallow by nursing CT head negative for acute findings 1:[address] for safety Toxicology screen ordered PNA/possible aspiration Cefriaxone and azithromycin ordered empirically Duo nebs prn Incentive spirometer once pt has stabilized Bedside swallow ordered with nursing once pt is awake and alert ST to assess swallow ability when pt is awake and at baseline Pancytopenia PLatelets 23K, no DVT prophylaxis ordered No evidence of spontaneous bleeding CBC daily DVT prophylaxis: not ordered due to low PLT count MED REC PENDING FULL CODE STATUS Quality Stroke Does the patient have a stroke diagnosis?: No Reason for No Anti-thrombotic by Day Two: N/A - Med Ordered VTE Prior VTE?: No VTE Risk Level:: Medical - moderate - high VTE Device Contraindication: N/A - Device Ordered VTE Drug Contraindication: N/A - Med Ordered
[2025-05-03] VITALS (14 sets, daily range): BP systolic 99–143; BP diastolic 43–63; PULSE 58–81; RESP 14–20; TEMP 36.3–36.7; O2SAT 97–100; BMI 30.4
--- NOTE | 2025-05-03 02:05 | PC.NURSE ---
1 set of cultures acceptable d/t tough stick and uncooperative. per JOY KIRBY
[2025-05-03] MEDS: 0.9 % Sodium Chloride Flush 3 ML SYRINGE IVFLUSH ×4 (02:23→21:45)
[2025-05-03] MEDS: Albumin Human 25 % 50 ML 100 ML IV (04:29)
[2025-05-03 06:06] LABS: Appearance Urine Clear; Glucose Urine UA Negative (Negative); PH 6.0 (5.0-9.0); Specific Gravity - Urine 1.020 (1.005-1.025)
[2025-05-03 07:14] LABS: Cannabinoid Screen Urine Not Detected (Not Detect)
--- NOTE | 2025-05-03 08:35 | MHC.CM.PN ---
Patient is documented to be behavioral(requiring 1:1 Sitter, AMS, violent with EMS); he may benefit from a Psych Eval to assist with disposition. CM has initiated and will follow for dc planning. Patient lives in a hotel Care Home, has had [facility] in the past, and he attends a Day Program 6 days/week. PCP is Dr. Leta Stover and [facility]([place] @ [phone]) has transported at [place], in the past.
--- NOTE | 2025-05-03 08:57 | P.CNGI_ITS ---
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 Pt's neighbors were concerned that they had not heard from the patient and called for a well visit. The patient was unable to answer questions or follow commands on arrival and was reportedly violent for EMS. He was unable to provide much history except ?I want to go home and I need to leave. ? and appeared to be unsteady in his feet but continued to ambulate, moving all extremities The patient is followed by Dr. Antonio in the GI clinic Hx obtained with the help of an [facility] Arabic personnel recruiter, Saulo Pt states he has been compliant with lactulose and has been taking it 3 times a day (he has a hx of non-compliance in the past) Patient reports having a bowel movement 3 times a day and denies fever or black stools. Labs showed Ammonia 162 (baseline ammonia 80-120) - improved to 89 today. One dose of lactulose ordered in ED, not clear if pt was able to take prior to sedation. HEAD CT negative for any acute findings. CXR with R hilar patch opacities. 03/26/25 ABD US SHOWED: 1. Very limited examination secondary to extensive overlying bowel gas. 2. TIPS catheter within the liver is patent on color Doppler imaging. 3. Coarsened and increased hepatic echogenicity in keeping with hepatocellular disease. No suspicious lesion allowing for study limitations. 4. The common bile duct could not be well visualized. No intrahepatic biliary dilatation present. 5. Normal gallbladder. 6. Partially imaged right kidney is normal. Review of Systems 2 Review of Systems: Yes all other systems are reviewed and are negative [facility] Past Medical History Medical History (Updated 05/03/25 @ 14:14 by Faraz Sylevster DO) Hyperammonemia Pancytopenia Obesity (BMI 30.0-34.9) Cirrhosis of liver Fall Pancytopenia Hepatic encephalopathy Portal vein thrombosis Cirrhosis Splenic vein thrombosis Sepsis Cirrhosis of liver with ascites Abdominal pain Thrombocytopenia Pancytopenia Cirrhosis Hepatitis C virus infection Esophageal varices Pancytopenia Iron deficiency anemia Cirrhosis Hepatitis C HBP (high blood pressure) Family History Family History Maternal Grandmother Breast CA Uterus cancer Mother Primary lung cancer of unknown cell type Surgical History Surgical History S/P TIPS (transjugular intrahepatic portosystemic shunt) H/O left inguinal hernia repair H/O eye surgery History of esophagogastroduodenoscopy (EGD) H/O colonoscopy Social History Social History Household Members: None Household Members Other:: long-term Housing: Homeless Housing Other:: long-term Are you a primary ambulatory care nurse to a significant other at home: No Do you presently have visiting nurse or other home services: No Unable to assess alcohol history related to: Unable to respond Alcohol intake: former Comment: pt refusing alarm's Patient Tobacco Use Status: Tobacco use Unknown Tobacco use type: Cigarette Cigarette Packs Per Day: 1 Cigarettes Per Day: 0.5 Years Smoked: 30 e-Cigarette/Vaping Use: Currently Using Second Hand Smoke Exposure: No Use of substances other than those prescribed or required for medical reasons: Unable to respond Substance Use Type: Crack/Cocaine and Marijuana Currently Displaying Signs/Symptoms of Drug Intoxication Withdrawal: No Advance Directives: Yes Advance Directives on File: Yes Advance Directives Date on File: 04/02/24 Recently lost weight without trying: Unsure service: No Current occupational status: retired Travel History Ebola Risk: Travel/Contact With Anyone From Affected Area/s: No Has Patient Experienced Ebola Symptoms: No Meds Allergies Allergy/AdvReac Type Severity Reaction Status Date / Time dicyclomine (From Bentyl) Allergy Unknown Verified 05/02/25 19:29 aspirin AdvReac Severe stomach Verified 05/02/25 19:29 bleeding NSAIDS (Non-Steroidal AdvReac Severe liver Verified 05/02/25 19:29 Anti-Inflamma concerns Active Medications: Current Medications Acetaminophen (Acetaminophen 325 Mg Tablet) 650 mg PO Q6H PRN PRN Reason: Pain, Mild 1-3,fever,headache Albuterol/Ipratropium (Albuterol/Iprat 2.5/0.5mg 3 Ml Ampul.Neb) 3 ml INHALE Q4H PRN PRN Reason: Shortness of Breath/Wheezing Ceftriaxone Sodium (Ceftriaxone Sodium 1 Gm Vial) 1 gm IVPUSH BEDTIME [facility] Last Admin: 05/03/25 02:19 Dose: 1 gm Azithromycin 500 mg/ Sodium (Chloride) 250 mls @ 125 mls/hr IV BEDTIME [facility] Stop: 05/08/25 00:14 Last Infusion: 05/03/25 04:24 Dose: Infused Lactulose (Lactulose 20 Gm/30 Ml Solution) 40 gm PO BID [facility] Magnesium Hydroxide (Milk Of Magnesia 30 Ml Oral.Susp) 30 ml PO DAILY PRN PRN Reason: Constipation Melatonin (Melatonin 3 Mg Tablet) 6 mg PO BEDTIME PRN PRN Reason: Insomnia Ondansetron HCl (Ondansetron Hcl 4 Mg/2 Ml Vial) 4 mg IVPUSH Q8H PRN PRN Reason: Nausea and Vomiting Rifaximin (Rifaximin 550 Mg Tablet) 550 mg PO BID [facility] Sodium Chloride (0.9 % Sodium Chloride Flush 3 Ml Syringe) 3 ml IVFLUSH QSHIFT [facility] Last Admin: 05/03/25 02:23 Dose: 3 ml Home Medications ?Medication ?Instructions ?Recorded ?Confirmed ?Last Taken ?Type furosemide 40 mg tablet 40 mg PO DAILY 04/21/2504/10 Unknown History Physical Exam 2 Vital Signs: Vital Signs: Last Vital Signs Temp 97.3 F 05/03/25 07:17 Pulse 63 05/03/25 07:17 Resp 20 05/03/25 07:17 BP 129/59 L 05/03/25 07:17 Pulse Ox 98 05/03/25 07:17 O2 Del Method Room Air 05/03/25 07:17 BMI result Body Mass Index 30.4 Const: General: no acute distress Nutritional Appearance: obese O rientation/consciousness: patient oriented x3 Limitations: language barrier HEENT: Head: Yes normal to inspection Ears: hearing grossly normal bilaterally Mouth: Normal oral and palatal mucosa present Eyes: Sclerae: sclerae normal Pupils: Equal, round and reactive pupils present Neck: Neck: Yes normal visual inspection Chest: Chest palpation & inspection: normal inspection of the chest Resp: Effort & Inspection: normal respiratory effort Auscultation: clear to auscultation bilaterally Cardio: Palpation: normal PMI Rate: regular rate Rhythm: regular rhythm Heart sounds: S1 normal heart sound present, S2 normal heart sound present and no murmurs GI: Palpation (GI): Soft to palpation, nontender and No hepatosplenomegaly present Auscultation: normal bowel sounds Rectal Exam - Male: Yes deferred Skin: General skin exam: no rashes or lesions noted Neuro: General: patient oriented x3, gait normal and moves all extremities Cranial nerves: Yes Equal, round and reactive pupils present Psych: Appearance: grossly normal Mental Status: mental status grossly normal Results Labs 05/03/25 09:47 05/03/25 09:47 Labs: Short CBC 05/02/25 Range/Units 20:20 WBC 1.7 L (4.8-10.8) X10*3/uL Hgb 8.4 L (14.0-18.0) g/dl Hct 25.1 L (42.0-52.0) % Plt Count 23 L (160-400) X10*3/uL BMP 05/02/25 20:20 Sodium 143 Potassium 3.9 Chloride 119 H Carbon Dioxide 20 L BUN 15 Creatinine 0.82 Calcium 8.4 Liver Function 05/02/25 Range/Units 20:20 Total Bilirubin 1.1 H (0.0-1.0) mg/dL AST 42 H (5-37) U/L ALT 32 (0-40) U/L Alkaline Phosphatase 128 H (39-117) U/L Albumin 2.8 L (3.5-5.0) g/dL Urine 05/03/25 Range/Units 05:57 Urine Color Yellow Urine Appearance Clear Urine pH 6.0 (5.0-9.0) Ur Specific [place] 1.020 (1.005-1.025) Urine Protein Negative (Neg-Trace) mg/dL Urine Glucose (UA) Negative (Negative) mg/dL Assessment and Plan (1) Acute hepatic encephalopathy: Status: Acute (2) Cirrhosis of liver: Status: Acute Plan 64 YM with 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 The patient is followed by Dr. Antonio in the GI clinic Lab showed pancytopenia, INR of 1.5, ammonia 162. Patient was admitted for further management and treatment of acute on chronic hepatic encephalopathy. Hepatic encephalopathy, likely caused by non compliance with meds in the setting of TIPS and PVT, no evidence of active infection, no ascites or pneumonia, UTI. No evidence of active GI bleeding, or head lesions, Pt is alert today and fu ammonia level decreased to 89 Tox screen was negative during past admission Pt has pancytopenia related to splenomegaly versus bone marrow involvement RECOMMENDATIONS: 1. Continue lactulose 30 ml three times a day (titrate to 2-3 BMs a day) and rifaximin 550 mg twice daily for hepatic encephalopathy 2. Continue low sodium diet Pt can be discharged in the am and follow up with Dr Antonio as an outpatient Procedures Date of Service Date of Service: 05/04/25
[2025-05-03 10:00] LABS: Hematocrit 27.7 % (42.0-52.0); Hemoglobin 8.9 g/dl (14.0-18.0); Imm Gran Abs Auto 0.00 X10*3/uL (0.00-0.03); Imm Gran Pct Auto 0.0 % (0.0-0.4); Lymphocytes Absolute Auto 0.6 X10*3/uL (1.2-4.9); MANUAL DIFF FLAG SCAN; Mean Corpuscular HGB Conc 32.1 g/dl (31.0-36.0); Mean Corpuscular Hemoglobin 26.5 pg (27.0-33.0); Mean Corpuscular Volume 82.4 fL (80.0-98.0); NRBC Abs Auto 0.000 X10*3/uL (0.0-0.012); NRBC Pct Auto 0.0 /100WBC (0.0-0.2); Red Blood Count 3.36 X10*6/uL (4.60-5.80); SCAN SMEAR FLAG 1
[2025-05-03 10:01] LABS: Platelet Count 23 X10*3/uL (160-400); White Blood Count 1.5 X10*3/uL (4.8-10.8)
[2025-05-03 10:03] LABS: Ammonia 89 umol/L (13-55)
[2025-05-03 10:11] LABS: Alanine Aminotransferase 35 U/L (0-40); Albumin Level 3.1 g/dL (3.5-5.0); Alkaline Phosphatase 112 U/L (39-117); Anion Gap 11 (12-20); Aspartate Amino Transferase 47 U/L (5-37); Blood Urea Nitrogen 14 mg/dL (9-16); Calcium 8.4 mg/dL (8.4-10.2); Carbon Dioxide 22 mmol/L (22-29); Chloride 115 mmol/L (96-108); Creatinine Clr Calc Pharmacy 116.8; Estimated Glomerular Filt Rate > 60; Potassium 4.4 mmol/L (3.3-5.1); Sodium 144 mmol/L (135-145); Total Protein 6.2 g/dL (6.5-8.0)
--- NOTE | 2025-05-03 12:27 | MHC.SLORD ---
Speech Language Pathology Order Status: Order placed for swallow evaluation last night, per RN, patient passed RN swallow, placed on regular diet, tolerating without difficulties. approved cancelling [employer] order.
--- NOTE | 2025-05-03 14:08 | P.PNIM_ITS ---
Subjective Subjective Date of Service: 05/03/25 Interval History: No acute issues overnight. More alert since lactulose Review of Systems Denies chest pain Denies shortness of breath Denies nausea vomiting diarrhea Denies fever chills Physical Exam 2 Vital Signs: Vital Signs: Last Vital Signs Temp 97.4 F 05/03/25 11:23 Pulse 60 05/03/25 11:23 Resp 20 05/03/25 11:23 BP 136/63 05/03/25 11:23 Pulse Ox 100 05/03/25 11:23 O2 Del Method Room Air 05/03/25 11:23 BMI result Body Mass Index 30.4 Const: Other: Awake alert no acute distress Resp: Other: Clear to auscultation bilaterally no rales rhonchi or wheezes Cardio: Other: No S4; positive S1-S2; no S3 murmurs rubs or gallops GI: Other: Soft nontender nondistended normoactive bowel sounds Neuro: Other: Cranial nerves 2-12 grossly intact as tested. Motor is 5/5 all extremities sensation is intact cognition appropriate Extrem: Other: No edema bilaterally Objective Data Active Medications Acetaminophen (Acetaminophen 325 Mg Tablet) 650 mg PO Q6H PRN PRN Reason: Pain, Mild 1-3,fever,headache Albuterol/Ipratropium (Albuterol/Iprat 2.5/0.5mg 3 Ml Ampul.Neb) 3 ml INHALE Q4H PRN PRN Reason: Shortness of Breath/Wheezing Ceftriaxone Sodium (Ceftriaxone Sodium 1 Gm Vial) 1 gm IVPUSH BEDTIME [facility] Last Admin: 05/03/25 02:19 Dose: 1 gm Documented By: JUANA Azithromycin 500 mg/ Sodium (Chloride) 250 mls @ 125 mls/hr IV BEDTIME [facility] Stop: 05/08/25 00:14 Last Infusion: 05/03/25 04:24 Dose: Infused Documented By: JUANA Lactulose (Lactulose 20 Gm/30 Ml Solution) 40 gm PO BID [facility] Last Admin: 05/03/25 10:34 Dose: 40 gm Documented By: CLARENCE Magnesium Hydroxide (Milk Of Magnesia 30 Ml Oral.Susp) 30 ml PO DAILY PRN PRN Reason: Constipation Melatonin (Melatonin 3 Mg Tablet) 6 mg PO BEDTIME PRN PRN Reason: Insomnia Ondansetron HCl (Ondansetron Hcl 4 Mg/2 Ml Vial) 4 mg IVPUSH Q8H PRN PRN Reason: Nausea and Vomiting Rifaximin (Rifaximin 550 Mg Tablet) 550 mg PO BID [facility] Last Admin: 05/03/25 10:34 Dose: 550 mg Documented By: CLARENCE Sodium Chloride (0.9 % Sodium Chloride Flush 3 Ml Syringe) 3 ml IVFLUSH QSHIFT [facility] Last Admin: 05/03/25 10:30 Dose: 3 ml Documented By: CLARENCE Labs 05/03/25 09:47 05/03/25 09:47 Labs: Laboratory Results - last 24 hr 05/02/25 05/03/25 05/03/25 20:20 05:57 09:47 MCV 81.2 82.4 MCH 27.2 26.5 L MCHC 33.5 32.1 RDW 14.2 14.3 Plt Count 23 L 23 L MPV Not Reportable TNP Immature Gran % (Auto) 0.0 0.0 Neut % (Auto) 46.1 47.2 Lymph % (Auto) 41.3 H 41.1 H [place] % (Auto) 11.4 H 10.3 Eos % (Auto) 1.2 0.7 Baso % (Auto) 0.0 0.7 Lymph # (Auto) 0.7 L 0.6 L [place] # (Auto) 0.2 0.2 Eos # (Auto) 0.0 0.0 Baso # (Auto) 0.0 0.0 Abs Immat Gran (auto) 0.00 0.00 Absolute Neuts (auto) 0.8 L 0.7 L Absolute Nucleated RBC 0.000 0.000 Nucleated RBC % (auto) 0.0 0.0 Smear Tech's Comments VERIFIED VERIFIED Anion Gap 8 L 11 L Estim Creat Clear Calc 105.3 116.8 Estimated GFR > 60 > 60 Random Glucose 100 84 Calcium 8.4 8.4 Magnesium 2.0 Total Bilirubin 1.1 H 1.1 H AST 42 H 47 H ALT 32 35 Alkaline Phosphatase 128 H 112 Ammonia 162 H 89 H Total Protein 6.1 L 6.2 L Albumin 2.8 L 3.1 L Lipase 41 Urine Color Yellow Urine Appearance Clear Urine pH 6.0 Ur Specific [place] 1.020 Urine Protein Negative Urine Glucose (UA) Negative Urine Ketones Negative Urine Blood Negative Urine Nitrite Negative Ur Leukocyte Esterase Negative Urine RBC 0-2 Urine WBC 0-5 Ur Squamous Epith Cells 0-2 Urine Bacteria None Seen Hyaline Casts 0-2 Urine Opiates Screen Ur Buprenorphine Scrn Ur Oxycodone Screen Urine Methadone Screen Urine Fentanyl Screen Ur Barbiturates Screen Ur Phencyclidine Scrn Ur Amphetamines Screen U Benzodiazepines Scrn Urine Cocaine Screen U Marijuana (THC) Screen Ethyl Alcohol < 10 05/03/25 Unknown MCV MCH MCHC RDW Plt Count MPV Immature Gran % (Auto) Neut % (Auto) Lymph % (Auto) [place] % (Auto) Eos % (Auto) Baso % (Auto) Lymph # (Auto) [place] # (Auto) Eos # (Auto) Baso # (Auto) Abs Immat Gran (auto) Absolute Neuts (auto) Absolute Nucleated RBC Nucleated RBC % (auto) Smear Tech's Comments Anion Gap Estim Creat Clear Calc Estimated GFR Random Glucose Calcium Magnesium Total Bilirubin AST ALT Alkaline Phosphatase Ammonia Total Protein Albumin Lipase Urine Color Urine Appearance Urine pH Ur Specific [place] Urine Protein Urine Glucose (UA) Urine Ketones Urine Blood Urine Nitrite Ur Leukocyte Esterase Urine RBC Urine WBC Ur Squamous Epith Cells Urine Bacteria Hyaline Casts Urine Opiates Screen Not Detected Ur Buprenorphine Scrn Not Detected Ur Oxycodone Screen Not Detected Urine Methadone Screen Not Detected Urine Fentanyl Screen Not Detected Ur Barbiturates Screen Not Detected Ur Phencyclidine Scrn Not Detected Ur Amphetamines Screen Not Detected U Benzodiazepines Scrn POSITIVE H Urine Cocaine Screen Not Detected U Marijuana (THC) Screen Not Detected Ethyl Alcohol Assessment and Plan (1) Pancytopenia: Status: Acute (2) Cirrhosis of liver: Status: Acute (3) Hyperammonemia: Status: Acute Plan Pt is a 64-year-old male with past medical history significant for 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 Pt has been living in a hotel with hx of living in shelters. Pt has been seen multiple times in the ED for encephalopathy related to Hepatitis. Pt required chemical restraint in the ED with versed and zyprexa and is currently sedated but minimally arousable on room air. 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 1. Hepatic encephalopathy -likely secondary noncompliance with lactulose -markedly improved this a.m... Nursing cleared with bedside swallow -continue lactulose as ordered -follow LFTs/pneumonia in a.m. -await formal GI input 2. Pneumonia -Cefriaxone/azithromycin (2) -Duo nebs prn 3. Pancytopenia -secondary to the chronic liver disease -follow up clinically DVT prophylaxis: not ordered due to low PLT count FULL CODE STATUS Quality Stroke Does the patient have a stroke diagnosis?: No Reason for No Anti-thrombotic by Day Two: N/A - Med Ordered VTE Prior VTE?: No VTE Risk Level:: Medical - moderate - high VTE Device Contraindication: N/A - Device Ordered VTE Drug Contraindication: N/A - Med Ordered
[2025-05-04 04:00] VITALS: BP 149/61; PULSE 74; RESP 20; TEMP 36.7; O2SAT 98
[2025-05-04 07:35] LABS: Ammonia 87 umol/L (13-55)
[2025-05-04 07:42] LABS: Hematocrit 25.8 % (42.0-52.0); Hemoglobin 8.6 g/dl (14.0-18.0); Imm Gran Abs Auto 0.00 X10*3/uL (0.00-0.03); Imm Gran Pct Auto 0.0 % (0.0-0.4); Lymphocytes Absolute Auto 0.5 X10*3/uL (1.2-4.9); MANUAL DIFF FLAG SCAN; Mean Corpuscular HGB Conc 33.3 g/dl (31.0-36.0); Mean Corpuscular Hemoglobin 27.0 pg (27.0-33.0); Mean Corpuscular Volume 81.1 fL (80.0-98.0); NRBC Abs Auto 0.000 X10*3/uL (0.0-0.012); NRBC Pct Auto 0.0 /100WBC (0.0-0.2); Platelet Count 21 X10*3/uL (160-400); Red Blood Count 3.18 X10*6/uL (4.60-5.80); SCAN SMEAR FLAG 1; White Blood Count 1.5 X10*3/uL (4.8-10.8)
[2025-05-04 07:50] LABS: Alanine Aminotransferase 29 U/L (0-40); Albumin Level 2.8 g/dL (3.5-5.0); Alkaline Phosphatase 140 U/L (39-117); Anion Gap 7 (12-20); Aspartate Amino Transferase 39 U/L (5-37); Blood Urea Nitrogen 15 mg/dL (9-16); Calcium 8.1 mg/dL (8.4-10.2); Carbon Dioxide 23 mmol/L (22-29); Chloride 116 mmol/L (96-108); Creatinine Clr Calc Pharmacy 123.6; Estimated Glomerular Filt Rate > 60; Potassium 4.2 mmol/L (3.3-5.1); Sodium 142 mmol/L (135-145); Total Protein 5.8 g/dL (6.5-8.0)
[2025-05-04 08:00] VITALS: BP 159/70; PULSE 75; RESP 18; TEMP 36.9; O2SAT 100
[2025-05-04] MEDS: 0.9 % Sodium Chloride Flush 3 ML SYRINGE IVFLUSH (08:13)
--- NOTE | 2025-05-04 08:34 | PM.DS ---
DS: Providers Provider Date of Service: 05/04/25 Date of admission: 05/02/25 22:46 Date of discharge: 05/04/25 Primary care physician: Unknown Physician Consults: 05/03/25 00:18 Consult to Gastroenterology Routine Consulting Provider: Suni Basilio Reason for consultation: hepatic encephalopathy ammonia 162 DS: Diagnosis Discharge Diagnosis (1) Acute hepatic encephalopathy: Status: Acute (2) Cirrhosis of liver: Status: Acute DS: Summary Hospital Course Hospital Course: HP as per admitting provider. Pt unable to provide any HPI, PMH, or PSH due to sedation. Pt received versed and zyprexa in ED as a chemical restraint due to pt's escalating behaviors. 1:[address] 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 The patient was unable to answer questions or follow commands on arrival and was reportedly violent for EMS. The patient does not provide much history except ?I want to go home and I need to leave. ? He seems unsteady in his feet but continues to ambulate, moving all extremities. Ammonia 162. Baseline ammonia 80-120. One dose of lactulose ordered in ED, not clear if pt was able to take prior to sedation. HEAD CT negative for any acute findings. CXR with R hilar patch opacities. No evidence of hypoxia and pt is on room air. Hemodynamics stable. No fever. Unable to complete ROS due to pt's level of sedation. Pt is able to open eyes momentarily but goes back to sleep. 64 year olf man treated for acute on chronic metabolic hepatic encephalopathy. He was treated with Rifaxamin and lactulose with good effect producing multiple BMs. Ammonia is at baseline. Patient insists that he takes his medication at home. Encephalopathy is resolved. Patient is requesting to go home. He is stable for discharge. Pneumonia noted on xray. No hypoxia or sob, did not require oxygen. Continue Levaquin for a few more days to complete treatment. Pancytopenia. secondary to the chronic liver disease Time Attestation Discharge Coordination Time (in mins): 40 Quality: Safe Use of Opioids Does Pt have an Active Cancer Diagnosis on the Problem List?: No Quality: Stroke Does the patient have a stroke diagnosis?: No Physical Exam Exam: Exam: Appearing in no acute distress head is normocephalic atraumatic eyes pupils are PERRLA sclera is anicteric mouth throat mucous membranes are intact and moist neck is supple no lymphadenopathy, no JVD noted lung sounds are clear to auscultation heart regular rate rhythm, clear S1, S2 positive bowel sounds, abdomen is soft, nontender neuro patient is alert x3, no focal deficits Right eye enucleation Vital Signs: Vital Signs: Last Vital Signs Temp 98.5 F 05/04/25 08:00 Pulse 75 05/04/25 08:00 Resp 18 05/04/25 08:00 BP 159/70 H 05/04/25 08:00 Pulse Ox 100 05/04/25 08:00 O2 Del Method Room Air 05/04/25 08:00 BMI result Body Mass Index 30.4 DS: Data Data Completed and Pending Completed studies during hospitalization [Text1]: Procedures Bypass Portal Vein to Hepatic Vein with Synthetic Substitute, Percutaneous Approach (10/08/24) Transfusion of Nonautologous Platelets into Peripheral Vein, Percutaneous Approach (10/08/24) Labs on day of discharge: Laboratory Results - last 24 hr 05/03/25 05/04/25 09:47 07:16 WBC 1.5 L 1.5 L RBC 3.36 L 3.18 L Hgb 8.9 L 8.6 L Hct 27.7 L 25.8 L MCV 82.4 81.1 MCH 26.5 L 27.0 MCHC 32.1 33.3 RDW 14.3 13.9 Plt Count 23 L 21 L MPV TNP Not Reportable Immature Gran % (Auto) 0.0 0.0 Neut % (Auto) 47.2 55.8 Lymph % (Auto) 41.1 H 32.2 [place] % (Auto) 10.3 10.7 Eos % (Auto) 0.7 1.3 Baso % (Auto) 0.7 0.0 Lymph # (Auto) 0.6 L 0.5 L [place] # (Auto) 0.2 0.2 Eos # (Auto) 0.0 0.0 Baso # (Auto) 0.0 0.0 Abs Immat Gran (auto) 0.00 0.00 Absolute Neuts (auto) 0.7 L 0.8 L Absolute Nucleated RBC 0.000 0.000 Nucleated RBC % (auto) 0.0 0.0 Smear Tech's Comments VERIFIED VERIFIED Sodium 144 142 Potassium 4.4 4.2 Chloride 115 H 116 H Carbon Dioxide 22 23 Anion Gap 11 L 7 L BUN 14 15 Creatinine 0.73 0.69 Estim Creat Clear Calc 116.8 123.6 Estimated GFR > 60 > 60 Random Glucose 84 Fasting Glucose 90 Calcium 8.4 8.1 L Total Bilirubin 1.1 H 0.8 AST 47 H 39 H ALT 35 29 Alkaline Phosphatase 112 140 H Ammonia 89 H 87 H Total Protein 6.2 L 5.8 L Albumin 3.1 L 2.8 L Preliminary micro results at discharge 05/03/25 01:54 Blood Culture - Preliminary Blood - Venous No growth after 24 hours. Discharge Plan Discharge Anticipated Discharge Date/Time: 05/04/25 08:30 Patient Disposition: Home, Self-Care Discharge Diagnosis: Metabolic hepatic encephalopathy Pneumonia Discharge Medications: New levofloxacin 500 mg tablet 500 mg PO DAILY Qty: 4 0RF lactulose 10 gram/15 mL Solution 40 g PO BID Qty: 1200 0RF Xifaxan 550 mg Tablet 550 mg PO BID Qty: 60 0RF Continued carvedilol 3.125 mg tablet 3.125 mg PO BID Qty: 60 1RF (ALLIE) doris Sam See Rx Instructions .Route Qty: 1 0RF Rx Instructions: As directed furosemide 40 mg tablet 40 mg PO DAILY amlodipine 5 mg tablet 5 mg PO DAILY Qty: 90 0RF Discharge Orders: Discharge Order (Routine); Ordered 05/04/25 Ordered By: Deanna Puente Diet: Advance to usual diet Activity on Discharge: As tolerated Stand Alone Forms: Patient Portal Discharge page Print Language: Vietnamese Care Plan Goals: Complete course of antibiotics Health Concerns: Metabolic hepatic encephalopathy Pneumonia Plan of Treatment: Follow up with primary care provider as needed Take all medications as prescribed Assessment: See discharge summary
--- NOTE | 2025-05-04 11:06 | MHC.CM.PN ---
PT MEDICALLY CLEARED TO RETURN TO [facility] [employer] [place], STAFF FOR TRANSPORT.
== END 2025-05-04 11:22 | disposition home or self-care (01) ==
LOC: HO.ED 21:56 → HO.EDOVER 22:49 → HO.IMC 05-03 02:48
PROVIDERS: Hospitalist; Nurse Practitioner Family; Physician Assistant; Admitting Provider Internal Medicine; Emergency Provider Student in an Organized Health Care Education/Training Program; PCP Student in an Organized Health Care Education/Training Program; Visit Provider Nurse Practitioner Acute Care
DX: K74.69 Other cirrhosis of liver (principal); D61.818 Other pancytopenia; K76.6 Portal hypertension; J18.9 Pneumonia, unspecified organism; D73.2 Chronic congestive splenomegaly; B19.20 Unspecified viral hepatitis C without hepatic coma; K76.82 Hepatic encephalopathy; Z91.148 Patient's other noncompliance with medication regimen for other reason; Z79.899 Other long term (current) drug therapy
CPT/HCPCS: 36415; 70450; 71045; 80053; 80307; 81001; 82140; 83690; 83735; 85025; 87040; 99285; J0456; J0696; J2250; J2359; P9047

== ENCOUNTER → 2025-05-02 19:20 | Outpatient (BNV) | payer MEDICAID, SELFPAY | PROVIDERS: Admitting Provider Internal Medicine; Emergency Provider Student in an Organized Health Care Education/Training Program; Visit Provider Radiology Diagnostic Radiology | DX: R41.82 Altered mental status, unspecified (principal); R53.1 Weakness | CPT/HCPCS: 70450; 71045 ==

== ENCOUNTER → 2025-05-02 22:46 | Outpatient (BNV) | payer MEDICAID, SELFPAY | PROVIDERS: Admitting Provider Internal Medicine; Emergency Provider Student in an Organized Health Care Education/Training Program; Visit Provider Internal Medicine Gastroenterology | DX: K76.82 Hepatic encephalopathy (principal); K74.60 Unspecified cirrhosis of liver | CPT/HCPCS: 99222 ==

== ENCOUNTER → 2025-05-02 22:46 | Outpatient (BNV) | payer MEDICAID, SELFPAY | PROVIDERS: Admitting Provider Internal Medicine; Emergency Provider Student in an Organized Health Care Education/Training Program; Visit Provider Hospitalist | DX: K76.82 Hepatic encephalopathy (principal); K74.60 Unspecified cirrhosis of liver | CPT/HCPCS: 99239 ==

== ENCOUNTER 2025-05-15 10:50 | Emergency (ER) | payer MEDICAID, SELFPAY ==
--- NOTE | 2025-05-15 | ECG_ITS ---
Test Reason : CHEST PAIN Blood Pressure : */* mmHG Vent. Rate : 66 BPM Atrial Rate : 66 BPM P-R Int : 130 ms QRS Dur : 74 ms QT Int : 420 ms P-R-T Axes : 25 16 76 degrees QTcB Int : 440 ms Normal sinus rhythm Normal ECG When compared with ECG of 11-Apr-2025 23:04, No significant change was found Referred By: Generic ED Physician Electronically Signed By: Slick Hoover
[2025-05-15 11:02] VITALS: BP 136/78; PULSE 70; O2SAT 98
[2025-05-15 11:07] VITALS: BP 119/42; PULSE 67; RESP 18; O2SAT 100; BMI 29.7
[2025-05-15 11:35] LABS: Hematocrit 26.8 % (42.0-52.0); Hemoglobin 8.7 g/dl (14.0-18.0); INTERNATIONAL NORM RATIO 1.4 (0.9-1.1); Imm Gran Abs Auto 0.01 X10*3/uL (0.00-0.03); Imm Gran Pct Auto 0.5 % (0.0-0.4); Lymphocytes Absolute Auto 0.6 X10*3/uL (1.2-4.9); MANUAL DIFF FLAG SCAN; Mean Corpuscular HGB Conc 32.5 g/dl (31.0-36.0); Mean Corpuscular Hemoglobin 26.0 pg (27.0-33.0); Mean Corpuscular Volume 80.2 fL (80.0-98.0); NRBC Abs Auto 0.000 X10*3/uL (0.0-0.012); NRBC Pct Auto 0.0 /100WBC (0.0-0.2); Platelet Count 27 X10*3/uL (160-400); Prothrombin Time 16.1 SEC (10.9-12.4); Red Blood Count 3.34 X10*6/uL (4.60-5.80); SCAN SMEAR FLAG 1; White Blood Count 2.1 X10*3/uL (4.8-10.8)
[2025-05-15 11:39] LABS: Ammonia 115 umol/L (13-55)
[2025-05-15 11:48] LABS: Alanine Aminotransferase 27 U/L (0-40); Albumin Level 2.8 g/dL (3.5-5.0); Alkaline Phosphatase 118 U/L (39-117); Anion Gap 7 (12-20); Aspartate Amino Transferase 40 U/L (5-37); Blood Urea Nitrogen 15 mg/dL (9-16); Calcium 7.9 mg/dL (8.4-10.2); Carbon Dioxide 23 mmol/L (22-29); Chloride 115 mmol/L (96-108); Creatinine Clr Calc Pharmacy 119.5; Estimated Glomerular Filt Rate > 60; Lipase 31 U/L (8-78); Potassium 4.3 mmol/L (3.3-5.1); Sodium 141 mmol/L (135-145); Total Protein 5.9 g/dL (6.5-8.0)
[2025-05-15 11:55] LABS: Troponin-I High Sensitivity 34.5 ng/L (<3.5-35.0)
[2025-05-15 12:00] VITALS: BP 140/49; PULSE 68; RESP 13; TEMP 36.8; O2SAT 100
--- OUTSIDE RECORDS SUMMARY | 2025-05-15 12:20 | XMS_ITS | Clinical Summary ---
Author Organization 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 Last 3 Months Social History Tobacco [...] Upcoming Encounters Date Type Department Care Team (Latest Contact Info) Description 05/28/2025 10:00 AM EDT Pre-Admission Testing [facility] Pre Procedure Evaluation Center [address] [place] [id number] Michela Matt MD [address] [place] [id number] [email or web address] 06/11/2025 Procedure Pass [facility] [address] [place] [address] 06/11/2025 12:15 PM EDT Hospital Encounter [facility] [address] [place] [address] Michela Matt MD [address] [place] [id number] [email or web address] 06/11/2025 12:15 PM EDT - 06/11/2025 1:15 PM EDT Surgery [facility] [address] [place] [address] Michela Matt MD [address] [place] [phone] [email or web address] LATERAL [email or web address] STRIP 06/29/2025 2:30 PM EDT Office Visit [address] [place] [address] Michela Matt MD [address] [place] [id number] [email or web address] Scheduled Procedures Name Priority Associated Diagnoses Date/Ti tx LATERAL TARSAL STRIP Ectropion of right upper eyelid, unspecified ectropion type 06/11/2025 12:15 PM EDT Health Maintenance Due Date Last Done Comments [...] ACO C3 ACO C3 ACO C3 ACO [facility] C3 ACO Care Teams Quality Intern Relationship Specialty Start Date End Date Leta Soto MD [address] [place] [phone] PCP - General Internal Medicine 01/05/25 Additional Source Comments The information contained in this document represents components of the legal health record. It is not the complete legal health record.[facility]
--- OUTSIDE RECORDS SUMMARY | 2025-05-15 12:20 | XMS_ITS | Encounter Summary ---
Author Organization [employer] Address [address] [facility] [address] [place] [address] Care Team Providers Care Systems Administration Analyst Name Role Phone Leta Soto MD Primary Care Pro vider Yajaira Antonio Unavailable Encounter Details Date Type Department Care Team (Late st Contact Info) Description 03/17/2025 Results Follow-Up [facility] [address] [place] [address] Leta Soto MD [address] [place] [address] XR Chest 2 Views Social History Tobacco [...] Description 06/09/2025 9:45 AM EDT Office Visit [facility] [address] [place] [phone] Leta Soto MD [address] [place] [address] documented as of this encounter Goals Goal [...] documented as of this encounter Care Teams Systems Administration Analyst Relationship Specialty Start Date End Date Leta Soto MD [address] [place] [phone] PCP - General Internal Medicine 04/11/23 Yajaira Antonio [address] [place] [address] 3[address] [place] [address] Gastroenterology 09/04/24 [facility] 01/28/25 documented as of this encounter
--- OUTSIDE RECORDS SUMMARY | 2025-05-15 12:21 | XMS_ITS | Clinical Summary ---
Author Organization [employer] Address [address] [place] [address] Care Team Providers Care Wire Border Assembler Name Role Phone Leta Soto MD Primary Care Pro vider Yajaira Antonio Unavailable Allergies Active Allergy Reactions Criticality Noted Date Comments Dicyclomine 05/26/2023 Medications * This document contains information received from the source organization and may not represent a complete record from that organization. albuterol 108 (90 Base) MCG/ACT inhaler Inhale 2 puffs every 6 (six) hours if needed for wheezing. 18 g 2 06/25/20 23 Active amLODIPine (Norvasc) 5 MG tabletIndicatio ns:Essential hypertension Take 1 tablet (5 mg) by mouth Once per day. 30 tablet 11 11/25/19 25 026 Active furosemide (Lasix) 40 MG tabletIndicatio ns:Bilateral leg edema Take 1 tablet (40 mg) by mouth in the morning. 30 tablet 11/28/19 25 026 Active clotrimazole (Lotrimin) 1 % cream APPLY TOPICALLY TO THE AFFECTED AREA(S) TWICE DAILY FOR 28 DAYS 02/25/20 25 Active Blood Pressure kitIndications: Hypertension, unspecified type 1 Device Once per day. 1 kit 03/12/20 25 Active rifAXIMin (Xifaxan) 550 MG tablet Take 1 tablet (550 mg) by mouth at noon and 1 tablet (550 mg) in the evening. 180 tablet 03/12/20 25 Active ferrous gluconate (Fergon) 324 (38 Fe) MG tablet Take 1 tablet (324 mg) by mouth 3 (three) times a week. 12 tablet 4 03/16/20 25 026 Active sildenafil (Viagra) 25 MG tabletIndicatio ns:Essential hypertension Take 1 tablet (25 mg) by mouth if needed each day for erectile dysfunction. 10 tablet 04/17/20 25 025 Active carvedilol (Coreg) 3.125 MG tablet Take 1 tablet (3.125 mg) by mouth with breakfast and with evening meal. 60 tablet 2 04/22/20 25 Active lactulose (Chronulac) 10 GM/15ML solution TAKE 45 ML BY MOUTH THREE TIMES DAILY DIRECTED 1350 mL 3 04/28/20 25 Active carvedilol (Coreg) 3.125 MG tablet Take 1 tablet by mouth with breakfast and with evening meal. 07/03/20 24 025 Discontinued lactulose (Chronulac) 10 GM/15ML solution TAKE 30 G (45 ML) BY MOUTH 3 TIMES A DAY 1350 mL 03/18/20 25 025 Discontinued lactulose (Chronulac) 10 GM/15ML solution TAKE 45 ML (30 GRAM) BY MOUTH THREE TIMES DAILY 1350 mL 04/16/20 25 025 Discontinued losartan (Cozaar) 25 MG tabletIndicatio ns:Erectile dysfunction, unspecified erectile dysfunction type Take 1 tablet (25 mg) by mouth Once per day. 30 tablet 11 04/17/20 25 025 Discontinued(Ot her) Active Problems Problem Noted Date Diagnosed Date Erectile dysfunction 04/17/2025 Assessment & Plan (04/17/2025 9:50 AM EDT): Counseling done I prescribed sildenafil 25mg PRN At high risk for bleeding 03/13/2025 Hospital discharge follow-up 03/13/2025 Abnormal CXR 03/13/2025 Syncope 03/13/2025 Bilateral leg edema 11/27/2024 Cirrhosis 11/23/2024 Hyperammonemia 11/23/2024 Hepatic encephalopathy 11/23/2024 Portal vein thrombosis 11/23/2024 Esophageal varices determined by [...] discuss referral to IR for pre-emptive TIPS Hepatitis B core antibody positive 10/25/2023 Healthcare maintenance 05/26/2023 Tobacco use 05/26/2023 Assessment & Plan (08/05/2024 8:08 PM EST): Pt is actively cutting down, reviewed importance of stopping before surgery Cognitive impairment 05/26/2023 Obesity 05/26/2023 Complication of prosthetic orbit [...] advocate PLAN: 1. Follow up with [facility]: Not recommended for follow-up 2. Patient goal is be connected to services 3. Behavioral Recommendations a. Patient will engage in service once established b. Patient may return to [facility] for medical needs until a PCP is established c. Patient may request to speak with an [facility], as needed Pancytopenia 04/09/2023 Assessment & Plan (08/05/2024 8:08 PM EST): In care with hematology, cbc pending Severe thrombocytopenia 04/09/2023 Illiteracy 04/05/2023 Homeless 04/05/2023 Essential hypertension 04/05/2023 Assessment & Plan (04/17/2025 9:49 AM EDT): Today blood pressure is slightly elevated I advise low Na diet, I went through patient's medication list carvedilol may cause erectile dysfunction or cause low libido, I discontinue this medication and instead I started him on losartan 25mg daily, med box was call and I instructed patient to come back with his boxes to switch the medication, I also advise to continue f/u with PCP Assessment & Plan (08/05/2024 8:07 PM EST): At goal, continue current meds Resolved Problems Problem Noted Date Diagnosed Date Resolved Date Dyspnea 06/26/2023 01/23/2024 Hepatitis C virus infection without hepatic coma 04/05/2023 03/13/2025 Assessment & Plan (08/05/2024 8:07 PM EST): Stable, per GI viral load undetectable Urinary incontinence 04/05/2023 023 Encounters Date Type Department Care Team Description 05/15/2025 Orders Only GENERIC EXTERNAL DATA DEPARTMENT Provider, Generic External Data 04/27/2025 Orders Only [facility] [address] [place] [address] Veronica Miles, CHANDU 04/27/2025 Refill [facility] [address] [place] [address] Leta Soto MD 04/22/[address] [facility] [address] [place] [address] Sadia Denny RN Medication Changes 04/22/2025 Orders Only [address] [address] Leta Soto MD 04/21/2025 Orders Only [facility] [address] [place] [address] Imelda Pfeiffer, CHANDU Healthcare maintenance 04/20/[address] [address] Leta Soto MD FYI 04/17/2025 9:20 AM EDT Office Visit [facility] [address] [place] [address] Leta Forte MD Essential hypertension (Primary Dx); Erectile dysfunction, unspecified erectile dysfunction type 04/17/2025 Travel 04/16/[address] [address] Leta Soto MD 04/14/[address] [address] Leta Soto MD [facility] (I called the patient at [phone], regarding his request for [facility] services, and reached a recording stating that the number is not in service. I then called [phone], and he stated that he needs assistance with transferring and walking, because he has swelling in his legs, and falls frequently. He also needs assistance with getting to appointments. I informed him that a employer relations representative from [facility] would be in contact with him, to schedule an evaluation. He is currently living at the [facility],) 04/13/2025 Results Follow-Up [address] Cervical Spine w/o Contrast 04/11/2025 Orders Only GENERIC EXTERNAL DATA DEPARTMENT Provider, Generic External Data 03/30/2025 Orders Only GENERIC EXTERNAL DATA DEPARTMENT Provider, Generic External Data 03/26/[address] [address] Sadia Denny, paying teller Compliance; Referral 03/24/2025 Orders Only GENERIC EXTERNAL DATA DEPARTMENT Provider, Generic External Data 03/24/[address] [address] Leta Soto MD 03/23/2025 Results Follow-Up [facility] [place] [address] Head w/o Contrast, Ammonia, Plasma, Urinalysis, Complete, with Reflex to Culture, Additional followed-up results: 9 03/21/2025 Orders Only GENERIC EXTERNAL DATA DEPARTMENT Provider, Generic External Data 03/18/[address] [facility] [place], [place] [address] Leta Soto MD 03/17/2025 Results Follow-Up [facility] [place], [place] [address] Leta Soto MD XR Chest 2 Views 03/17/[address] [facility] [place] [address] Yamel Khanna RN Care Coordination 03/17/2025 Patient Outreach [facility] [place], [place] [address] Leta Soto MD 03/16/2025 Orders Only [facility] [place], [place] [address] Leta Soto MD 03/16/[address] [facility] [place], [place] [address] Leta Soto MD Image order 03/12/2025 10:00 AM EDT Office Visit 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, unspecified complication, sequela; Obesity due to excess calories without serious comorbidity, unspecified class; Other cirrhosis of liver (CMS/HCC); Esophageal varices determined by endoscopy (CMS/HCC); Portal vein thrombosis; Healthcare maintenance; Pancytopenia (CMS/HCC); Cognitive impairment; At high risk for bleeding; Hospital discharge follow-up; Abnormal CXR; Bilateral leg edema; Tobacco use; Syncope, unspecified syncope type 03/12/[address] [address] Leta Soto MD Prior Authorization 03/12/2025 Travel 03/11/[address] [address] Leta Soto MD Chart Prep 03/06/[address] [address] Leta Soto MD FYI 02/26/2025 Orders Only GENERIC EXTERNAL DATA DEPARTMENT Provider, Generic External Data 02/18/[address] [address] Tricia Rivers [place] CHART PREP 02/16/[address] [address] Leta Soto MD FYI 02/16/[address] [address] Leta Soto MD Chart Prep 02/13/2025 Orders Only [facility] External Provider, [facility] from Last 3 Months Immunizations Immunization Administration Dates Next Due Hep B, adult [...] Smoke Exposure: Current Smokeless Tobacco: Never Tobacco Cessation:Ready to Q uit: Not Asked; Counseling Given: Not Answered Comments:Pt smokes since 15 y o until [...] Sign Reading Time Taken Comments Blood Pressure 146/72 04/17/2025 9:16 AM EDT Pulse 69 04/17/2025 9:16 AM EDT Temperature 37.2 C (98.9 F) 04/17/2025 9:16 AM EDT Respiratory Rate 19 04/17/2025 9:16 AM EDT Oxygen Saturation 99% 03/12/2025 10:24 AM EDT Inhaled Oxygen Concentration - - Weight 96.8 kg (213 lb 6.4 oz) 04/17/2025 9:16 A M EDT Height 180.3 cm (5' 11 ) 04/17/2025 9:16 AM EDT Body Mass Index 29.76 04/17/2025 9:16 AM EDT Plan of Treatment Upcoming Encounters Date Type Department Care Team (Late st Contact Info) Description 06/09/2025 9:45 AM EDT Office Visit [facility] [address] [place], [place] [phone] Leta Soto MD [address] [place], [place] [phone] Health Maintenance Due Date Last Done Comments CT Colonography 1960 Colonoscopy 1960 Colorectal Cancer Screening 1960 FIT DNA/Cologuard 1960 FIT 1960 FOBT 1960 Sigmoidoscopy 1960 Disability Screening 1960 Hepatitis A Vaccines (1 of 2 - Risk 2-dose series) 1980 Zoster Vaccines (1 of 2) 12/03/2011 RSV Patients and Patients Aged 60 years or older (1 - Risk 60-74 years 1-dose series) 2021 COVID-19 Vaccine (1 - 2023-2 5 season) 2025 Influenza Vaccine (#1) 2025 05/25/2023 Alcohol/Substance Use Screening 03/12/2026 03/12/2025 Depression Screening 03/12/2026 03/12/2025, 03/12/2025 SDOH Screening 03/12/2026 03/12/2025 Tobacco Screening 04/17/2026 04/17/2025 Lipid Panel 04/06/2028 04/06/2023 DTaP/Tdap/Td Vaccines (2 - T d or Tdap) 05/25/2033 05/25/2023 Pneumococcal Vaccine: 50+ Years Completed 05/25/2023 Hepatitis B Vaccines Completed 01/04/2024, 07/26/2023, 06/25/2023 HIV Screening Completed 04/21/2025, 01/01/2025 HIB Vaccines Aged Out No longer eligi ble based on patient's age to complete this topic HPV Vaccines Aged Out No longer eligi ble based on patient's age to complete this topic IPV Vaccines Aged Out No longer eligi ble based on patient's age to complete this topic Meningococcal B Vaccine Aged Out No l onger eligible based on patient's age to complete [...] 140/90 Blood Pressure 146/72(2024 9:16 AM EDT) [facility] Record your blood pressure once per day Blood Pressure No [facility] Procedures Procedure Name Priority Date/Time Associated Diagnosis Comments PROTHROMBIN TIME-INR Routine 05/15/2025 11:23 AM EDT HEPATITIS C VIRAL RNA, QUANTITATIVE, REAL-TIME PCR Routine 04/21/2025 10:43 AM EDT Healthcare maintenance HIV 1 RNA, QUANTITATIVE REAL TIME PCR Routine 04/21/2025 10:43 AM EDT Healthcare maintenance RPR (MONITOR) W/REFL TITER Routine 04/21/2025 10:43 AM EDT Healthcare maintenance HEPATITIS C AB W/REFL TO HCV RNA, QN, PCR Routine 04/21/2025 10:43 AM EDT Healthcare maintenance SYPHILIS SCREEN Routine 04/21/2025 10:43 AM EDT Healthcare maintenance CHLAMYDIA/GONORRHEA - URINE ([facility]) Routine 04/21/2025 CHLAMYDIA/GONORRHEA THROAT SWAB ([facility]) Routine 04/21/2025 CT HEAD WO CONTRAST Routine 04/12/2025 1 2:[address] CERVICAL SPINE WO CONTRAST Routine 04/12/2025 12:26 AM EDT ETHANOL Routine 04/11/2025 11:22 PM EDT MAGNESIUM Routine 04/11/2025 11:22 PM EDT SLIDE REVIEW Routine 04/11/2025 11:22 PM EDT CBC WITH AUTO DIFFERENTIAL Routine 04/11/2025 11:22 PM EDT HIGH SENSITIVITY TROPONIN I Routine 04/11/2025 11:22 PM EDT COMPREHENSIVE METABOLIC PANEL Routine 04/11/2025 11:22 PM EDT AMMONIA (P) Routine 03/30/2025 5:57 PM EDT URINALYSIS WITH REFLEX MICROSCOPIC Routine 03/30/2025 5:24 PM EDT SLIDE REVIEW Routine 03/30/2025 3:58 PM EDT CBC WITH AUTO DIFFERENTIAL Routine 03/30/2025 3:58 PM EDT ETHANOL Routine 03/30/2025 3:58 PM EDT MAGNESIUM Routine 03/30/2025 3:58 PM EDT COMPREHENSIVE METABOLIC PANEL Routine 03/30/2025 3:58 PM EDT XR KNEE 1-2 VIEWS RIGHT Routine 03/30/2025 3:18 PM EDT XR HIP RIGHT WITH PELVIS 1 VIEW Routine 03/30/2025 3:17 PM EDT US ABDOMEN LIMITED Routine 03/26/2025 10 :11 AM EDT XR CHEST 1 VIEW Routine 03/24/2025 10:24 PM EDT MR BRAIN WO CONTRAST Routine 03/24/2025 6:18 PM EDT VENOUS BLOOD GAS Routine 03/24/2025 2:32 PM EDT AMMONIA (P) Routine 03/24/2025 2:[address] HEAD WO CONTRAST Routine 03/21/2025 1 :51 PM EDT TYPE AND SCREEN Routine 03/21/2025 12:18 PM EDT ETHANOL Routine 03/21/2025 12:11 PM EDT LIPASE Routine 03/21/2025 12:11 PM EDT MAGNESIUM Routine 03/21/2025 12:11 PM EDT COMPREHENSIVE METABOLIC PANEL Routine 03/21/2025 12:11 PM EDT LACTIC ACID Routine 03/21/2025 12:11 PM EDT CBC WITH AUTO DIFFERENTIAL Routine 03/21/2025 12:11 PM EDT PROTHROMBIN TIME-INR Routine 03/21/2025 12:11 PM EDT URINALYSIS, COMPLETE, WITH REFLEX TO CULTURE Routine 03/21/2025 12:11 PM EDT AMMONIA (P) Routine 03/21/2025 12:11 PM EDT GLUCOSE, WHOLE BLOOD Routine 03/21/2025 10:55 AM EDT XR CHEST 2 VIEWS Routine 03/17/2025 8:06 AM EDT Abnormal CXR DRUG MONITOR, PANEL 1, SCREEN, URINE Routine 02/26/2025 2:17 PM EDT URINALYSIS, COMPLETE, WITH REFLEX TO CULTURE Routine 02/26/2025 2:17 PM EDT CTA HEAD STROKE W AND WO CONTRAST Routine 02/13/2025 11:05 PM EDT LIPID PANEL, STANDARD Routine 04/06/2023 10:00 AM EDT Healthcare maintenance from Last 3 Months or Most Recently Relevant to Health Maintenance Results * (ABNORMAL) Prothrombin Time-INR (05/15/2025 11:23 AM EDT) Only the most recent of2 resultswithin the time period is included. Prothrombin Time 16.1(H) 10.9 - 12.4 SEC [facility] INTERNATIONAL NORM RATIO 1.4(H) 0.9 - 1.1 [facility] Comment:INTERNATIONAL NORMAL IZED RATIO (INR) REFERENCE RANGES Reference RangeFor patients not on anticoagulant therapy: 0.9 - 1.1INR ranges for oral anticoagulanttherapy:For prevention and treatment of venous thrombosis and pulmonary embolism: 2.0 - 3.0For acute myocardial infarction with aspirin therapy: 2.0 - 3.0For acute myocardial infarction without aspirin therapy: 3.0 - 4.0For patients with mechanical prosthetic heart valves: 2.5 - 3.5 05/15/2025 11:2 3 AM EDT 05/15/2025 11:28 AM EDT us Generic External Data Provider LAB BLOOD ORDERAB LES Final Result [facility] [address] [place] [phone] * Syphilis Screen (04/21/2025 10:43 AM EDT) Syphilis Screen Nonreactive Nonreactive [facility] 04/21/2025 10:4 3 AM EDT 04/21/2025 1:18 PM EDT us Leta Dick MD LAB BLOOD ORDERAB LES Final Result Performing Organization Address [facility] Co de Phone Number [facility] [address] [place] [phone] * Hepatitis C Viral RNA, Quantitative, Real-Time PCR (04/21/2025 10:43 AM EDT) [facility] Hepatitis C Viral Load <15 NOT DETECTED NOT DETECTED IU/mL [facility] HCV Log PCR <1.18 NOT DETECTED NOT DETECTED Log IU/mL [facility] Comment:For additional infor mation, please refer tohttp://education.[employer]/faq/HRN61d9(This link is being provided for informational/educational purposes only.)THIS TEST WAS PERFORMED AT:[facility] [place] [id number] STRICKALND MD 04/21/2025 10:4 3 AM EDT 04/22/2025 8:54 AM EDT us Leta Dick MD LAB BLOOD ORDERAB LES Final Result Performing Organization Address [facility] de Phone Number [facility] [address] [place] [phone] * (ABNORMAL) Hepatitis C Antibody with Reflex to HCV, RNA, Quantitative, Real- Time PCR (04/21/2025 10:43 AM EDT) [facility] Hepatitis C Antibody Reactive( A) Nonreactive [facility] Comment:Presumptive evidence of antibodies to HCV. 04/21/2025 10:4 3 AM EDT 04/21/2025 1:18 PM EDT us Leta Dick MD LAB BLOOD ORDERAB LES Final Result Performing Organization Address [facility] Co de Phone Number [facility] [address] [place] [phone] * HIV-1 RNA, Quantitative, Real-Time PCR (04/21/2025 10:43 AM EDT) Pathologist [facility] HIV RNA PCR Qn Copies NOT DETECTED NOT DETECTED copies/mL [facility] HIV RNA PCR Qn Log Copies NOT DETECTED NOT DETECTED [facility] Comment:Result Units: Log co pies/mLThis test was performed using Real-Time Polymerase ChainReaction.Reportable Range: 20 copies/mL to 10,000,000 copies/mL(1.30 log copies/mL to 7.00 log copies/mL).THIS TEST WAS PERFORMED AT:[facility] [employer] [address] [id number] STRICKLAND MD 04/21/2025 10:4 3 AM EDT 04/21/2025 1:18 PM EDT us Leta Dick MD LAB BLOOD ORDERAB LES Final Result Performing Organization Address [facility]/ZIP Co de Phone Number [facility] [address] [place] [phone] * RPR (Monitor) with Reflex to??Titer (04/21/2025 10:43 AM EDT) Pathologist [facility] RPR (Monitor) w/Refl Titer NON-REACTI VE NON-REACT [place] [facility] Comment:THIS TEST WAS PERFOR MED AT:[facility] [employer] [address] [id number] STRICKLAND MD Rapid Plasma Reagin Ab Titer TNP [facility] 04/21/2025 10:4 3 AM EDT 04/21/2025 1:18 PM EDT us Leta Dick MD LAB BLOOD ORDERAB LES Final Result Performing Organization Address [facility]/ZIP Co de Phone Number [facility] [address] [place] [phone] * Chlamydia/Gonorrhea Throat Swab ([facility]) (04/21/2025) Chlamydia Throat Swab Negative Gonorrhea Throat Swab Negative Swab 04/21/2025 Historical Provider LAB MICROBIOLOGY - GENERA L ORDERABLES Final Result * Chlamydia/Gonorrhea, Urine ([facility]) (04/21/2025) Chlamydia, Urine Negative Negative, Indeterminate, None Detected, Invalid, Specimen unsatisfactory for evaluation, Weakly Positive, 2+ Gonorrhea, Urine Negative Negative, Indeterminate, None Detected, Invalid, Specimen unsatisfactory for evaluation, Weakly Positive, 2+ Urine 04/21/2025 Historical Provider LAB URINE ORDERABLES Robyn l Result * CT Head w/o Contrast (04/12/2025 12:29 AM EDT) Only the most recent of2 resultswithin the time period is included. Anatomical Region Laterality Modality Head, Neck Computed Tomogra phy 04/12/2025 12:2 9 AM EDT Narrative 04/12/2025 12:30 AM EDT [place] [address] CT Scan Report Signed Patient: Adelso Beebe MR#: [id number] : 1960 Acct:[id number] Age/Sex: 64 / M ADM Date: 04/11/25 Loc: .ED Attending Dr: Ordering Physician: Cash Reno MD Date of Service: 04/11/25 Procedure(s): CT head/brain wo IV con Accession Number(s): [id number] cc: Cash Reno MD; [facility] Report Number: [id number]: Total DLP = 737.50 mGy-cm CLINICAL HISTORY: synciope fall, head strike unknown CT head without contrast Comparison: CT/REG/SR - HEAD HEAD_WITHOUT (ADULT) - 03/21/25 12:37 EDT Findings: There is no acute intracranial hemorrhage. Ventricles are within normal limits in size. No mass effect or midline shift is present. The beckman-white matter differentiation appears normal. There is a right globe prosthesis. There is mucosal thickening in the left maxillary sinus similar to the prior CT. Patient is status post left maxillary sinus antrostomy. The mastoids are clear. No fractures are identified. IMPRESSION: No acute intracranial abnormality. This document has been electronically signed by: Gil Tapia MD on 04/12/2025 00:29:20 Dictated By: Gil Tapia MD Signed By: <Electronically signed by Gil Tapia MD in OV> 04/12/25 0030 DD/ TD/TT: 04/12/2528 Annual Giving Officer: Procedure Note Donotuseinterpreter, Image - 04/12/[address] [place] [address] [address] Scan Report Signed Patient: Yolanda Beebe#: [id number] : 1960cct:[id number] Age/Sex: 64 / MADM Date: 04/11/25 Loc: HO.ED Attending Dr: Ordering Physician: Cash Reno MD Date of Service: 04/11/25 Procedure(s): CT head/brain wo IV con Accession Number(s): [id number] cc: Cash Reno MD; [facility] Report Number: [id number]: Total DLP = 737.50 mGy-cm CLINICAL HISTORY: synciope fall, head strike unknown CT head without contrast Comparison: CT/REG/SR - HEAD HEAD_WITHOUT (ADULT) - 03/21/25 12:37 EDT Findings: There is no acute intracranial hemorrhage. Ventricles are within normal limits in size. No mass effect or midline shift is present. The beckman-white matter differentiation appears normal. There is a right globe prosthesis. There is mucosal thickening in the left maxillary sinus similar to the prior CT. Patient is status post left maxillary sinus antrostomy. The mastoids are clear. No fractures are identified. IMPRESSION: No acute intracranial abnormality. This document has been electronically signed by: Gil Tapia MD on 04/12/2025 00:29:20 Dictated By: Gil Tapia MD Signed By: <Electronically signed by Gil Tapia MD in OV> 04/12/25 0030 DD/ TD/TT: 04/12/2528 Annual Giving Officer: us [facility] External Provider IMG CT PROCEDURES Final Result * CT Cervical Spine w/o Contrast (04/12/2025 12:26 AM EDT) Anatomical Region Laterality Modality Spine, C-spine Computed Tomogra phy 04/12/2025 12:2 6 AM EDT Narrative 04/12/2025 12:28 AM EDT [place] [address] CT Scan Report Signed Patient: Adelso Beebe MR#: [id number] : 1960 Acct:[id number] Age/Sex: 64 / M ADM Date: 04/11/25 Loc: HO.ED Attending Dr: Ordering Physician: Cash Reno MD Date of Service: 04/11/25 Procedure(s): CT cervical spine wo IV con Accession Number(s): [id number] cc: Cash Reno MD; [facility] Report Number: [id number]: Total DLP = 462.38 mGy-cm CLINICAL HISTORY: fall, head strike unknown CT cervical spine without contrast Comparison: CT/SR - CT CERVICAL SPINE WO IV CON - 01/21/25 17:39 EDT Findings: There is stable minimal degenerative anterolisthesis of C3 on C4, C6 on C7, and C7 on T1 due to facet osteoarthritis. There is no fracture. There is moderate C6-7 degenerative disc disease. There is multilevel facet and uncovertebral joint osteoarthritis with associated neuroforaminal stenoses. IMPRESSION: No evidence of cervical spine injury. This document has been electronically signed by: Gil Tapia MD on 04/12/2025 00:26:58 Dictated By: Gil Tapia MD Signed By: <Electronically signed by Gil Tapia MD in [place]> 04/12/2526 DD/ TD/TT: 04/12/2525 Annual Giving Officer: Procedure Note Donotuseinterpreter, Image - 08/03/[address] [address] [address] Scan Report Signed Patient: Adelso BeebeMR#: [id number] : 2Acct:[id number] Age/Sex: 64 / MADM Date: 04/11/25 Loc: HO.ED Attending Dr: Ordering Physician: Cash Reno MD Date of Service: 04/11/25 Procedure(s): CT cervical spine wo IV con Accession Number(s): [id number] cc: Cash Reno MD; [facility] [facility] Report Number: [id number]: Total DLP = 462.38 mGy-cm CLINICAL HISTORY: fall, head strike unknown CT cervical spine without contrast Comparison: CT/SR - CT CERVICAL SPINE WO IV CON - 01/21/25 17:39 EDT Findings: There is stable minimal degenerative anterolisthesis of C3 on C4, C6 on C7, and C7 on T1 due to facet osteoarthritis. There is no fracture. There is moderate C6-7 degenerative disc disease. There is multilevel facet and uncovertebral joint osteoarthritis with associated neuroforaminalstenoses. IMPRESSION: No evidence of cervical spine injury. This document has been electronically signed by: Gil Tapia MD on 04/12/2025 00:26:58 Dictated By: Gil Tapia MD Signed By: <Electronically signed by Gil Tapia MD in OV> 04/12/25 0027 DD/ 0026 TD/TT: 04/12/25 0026 Annual Giving Officer: us [facility] External Provider IMG CT PROCEDURES Final Result * Slide Review (04/11/2025 11:22 PM EDT) Only the most recent of2 resultswithin the time period is included. Slide Review VERIFIED [facility] 04/11/2025 11:2 2 PM EDT 04/11/2025 11:26 PM EDT Generic External Data Provider LAB BLOOD ORDERAB LES Final Result Performing Organization Address [facility] Co de Phone Number [facility] [address] [place] [phone] * High Sensitivity Troponin I (04/11/2025 11:22 PM EDT) [facility] TROPONIN I HIGH SENSITIVITY 15.8 <3.5 - 35.0 ng/L [facility] Comment:The Clifford high sens itivity Troponin-I results should beused in conjunction with other diagnostic information suchas ECG, clinical observations and information, and patientsymptoms to aid in the diagnosis of GA. 04/11/2025 11:2 2 PM EDT 04/11/2025 11:26 PM EDT Generic External Data Provider LAB BLOOD ORDERAB LES Final Result Performing Organization Address [facility] de Phone Number [facility] [address] [place] [phone] * Ethanol (04/11/2025 11:22 PM EDT) Only the most recent of3 resultswithin the time period is included. [facility] ETHANOL (MG/DL) IN SER/PLAS <10 mg/dL [facility] Comment:Serum/plasma ethanol results are to be used formedical/treatment purposes only. 04/11/2025 11:2 2 PM EDT 04/11/2025 11:26 PM EDT Generic External Data Provider LAB BLOOD ORDERAB LES Final Result Performing Organization Address [facility] Co de Phone Number [facility] [address] [place] [phone] * (ABNORMAL) CBC auto differential (04/11/2025 11:22 PM EDT) Only the most recent of3 resultswithin the time period is included. [facility] White Blood Count 1.8(L) 4.8 - 10.8 X10*3/uL [facility] Red Blood Count 3.10(L) 4.60 - 5.80 X10*6/uL [facility] Hemoglobin 8.5(L) 14.0 - 18.0 g/dl [facility] Hematocrit 25.6(L) 42.0 - 52.0 % [facility] Mean Corpuscular Volume 82.6 80.0 - 98.0 fL [facility] Mean Corpuscular Hemoglobin 27.4 27.0 - 33.0 pg [facility] Mean Corpuscular HGB Conc 33.2 31.0 - 36.0 g/dl [facility] Red Cell Distribution Width 14.6 11.0 - 16.0 % [facility] Platelet Count 24(L) 160 - 400 X10*3/uL [facility] Neutrophils Percent Auto 49.7 45 - 73 % [facility] Imm Gran Pct Auto 0.0 0.0 - 0.4 % [facility] Lymphocytes Percent Auto 37.3 20 - 40 % [facility] Monocytes Percent Auto 11.3(H) 2 - 11 % [facility] Eosinophils Percent Auto 1.7 0 - 4 % [facility] Basophils Percent Auto 0.0 0 - 2 % [facility] NRBC Pct Auto 0.0 0.0 - 0.2 /100WBC [facility] Neutrophils Absolute Auto 0.9(L) 2.0 - 8.3 x10*3/uL [facility] Imm Gran Abs Auto 0.00 0.00 - 0.03 X10*3/uL [facility] [...] - 0.012 X10*3/uL [facility] 04/11/2025 11:2 2 PM EDT 04/11/2025 11:26 PM EDT Generic External Data Provider LAB BLOOD ORDERAB LES Edited Result - Final Performing Organization Address City/[facility]/ZIP Co de Phone Number [facility] [address] [place] [phone] * Magnesium (04/11/2025 11:22 PM EDT) Only the most recent of3 resultswithin the time period is included. Magnesium 2.0 1.6 - 2.6 mg/dL [facility] 04/11/2025 11:2 2 PM EDT 04/11/2025 11:26 PM EDT Generic External Data Provider LAB BLOOD ORDERAB LES Final Result Performing Organization Address [facility]/ZIP Co de Phone Number [facility] [address] [place] [phone] * (ABNORMAL) Comprehensive Metabolic Panel (04/11/2025 11:22 PM EDT) Only the most recent of3 resultswithin the time period is included. Sodium 143 135 - 145 mmol/L [facility] Potassium 4.4 3.3 - 5.1 mmol/L [facility] Chloride 115(H) 96 - 108 mmol/L [facility] Carbon Dioxide 25 22 - 29 mmol/L [facility] Anion Gap 7(L) 12 - 20 [facility] Urea Nitrogen (BUN) 19(H) 9 - 16 mg/dL [facility] Creatinine, Serum 0.80 0.5 - 1.4 mg/dL [facility] Creatinine Clr Calc Pharmacy 103.0 [facility] Comment:eGFR (calculated fro m the MDRD study equation) and eCrCl(calculated from the Cockcroft-Gault equation) are based ondifferent parameters and may not yield comparable results.If eCrCl result is absurd, please check patient'sheight/weight. Estimated Glomerular Filt Rate >60 [facility] Comment:Chronic Kidney Disea se: Estimated GFR < 60 mL/min/1.99g7Yvdybn Kidney Disease: Estimated GFR < 15 mL/min/1.73m2 Glucose 99 60 - 115 mg/dL [facility] Calcium 8.5 8.4 - 10.2 mg/dL [facility] Bilirubin, Total 0.9 0.0 - 1.0 mg/dL [facility] Aspartate Amino Transferase 39(H) 5 - 37 U/L [facility] Alanine Aminotransferase 25 0 - 40 U/L [facility] Total Protein 6.0(L) 6.5 - 8.0 g/dL [facility] Albumin Level 2.8(L) 3.5 - 5.0 g/dL [facility] Alkaline Phosphatase 146(H) 39 - 117 U/L [facility] 04/11/2025 11:2 2 PM EDT 04/11/2025 11:26 PM EDT us Generic External Data Provider LAB BLOOD ORDERAB LES Final Result Performing Organization Address [facility]/ZIP Co de Phone Number [facility] [address] [place] [phone] * (ABNORMAL) Ammonia, Plasma (03/30/2025 5:57 PM EDT) Only the most recent of3 resultswithin the time period is included. Ammonia (P) 142(H) 13 - 55 umol/L [facility] 03/30/2025 5:57 PM EDT 03/30/2025 6:00 PM EDT us Generic External Data Provider LAB BLOOD ORDERAB LES Final Result Performing Organization Address [facility]/ZIP Co de Phone Number [facility] [address] [place] [phone] * Urinalysis w/reflex microscopic (03/30/2025 5:24 PM EDT) Color Urine Dark Yellow [facility] Appearance Urine Clear [facility] PH 6.0 5.0 - 9.0 [facility] Glucose Urine UA Negative Negative mg/dL [facility] Urine Blood Negative Negative [facility] Specific Nogal - Urine 1.025 1.005 - 1.025 [facility] Urine Protein Negative Neg-Trace mg/dL [facility] Urine Ketones Trace Negative mg/dL [facility] Nitrite Urine Negative Negative [facility] Leukocyte Esterase Urine Negative Negative [facility] 03/30/2025 5:24 PM EDT 03/30/2025 5:31 PM EDT Narrative [facility] - 03/30/2025 5:42 PM EDT [id number], Clean Catch us Generic External Data Provider LAB URINE ORDERAB LES Final Result Performing Organization Address City/State/[facility] Co de Phone Number [facility] [address] [place] [phone] * XR Knee 1-2 Views Right (03/30/2025 3:18 PM EDT) Anatomical Region Laterality Modality Lower Extremities, Knee Right Radiogra phic Imaging 03/30/2025 3:18 PM EDT Narrative 03/30/2025 4:30 PM EDT [address] [address] XRay Report Signed Patient: Adelso Beebe MR#: [id number] : 1960 Acct:[id number] Age/Sex: 64 / M ADM Date: 03/30/25 Loc: .ED Attending Dr: Ordering Physician: Jorge Wang MD Date of Service: 03/30/25 Procedure(s): XR knee RT 2V Accession Number(s): [id number] cc: Jorge Wang MD; Leta Soto MD EXAMINATION: XR KNEE, RIGHT CLINICAL INFORMATION: Fall COMPARISON: None available. TECHNIQUE: Four views of the right knee. FINDINGS: No fracture, dislocation, or suspicious bone lesion. No malalignment. Mild medial compartment joint space narrowing. Lateral and patellofemoral compartments appear preserved. No significant joint effusion present. No soft tissue abnormalities. XR/XR knee RT 2V IMPRESSION: No acute findings of the right knee. Electronically signed by: Rao Hale MD 03/30/2025 04:26 PM EDT RP Dictated By: Rao Hale MD Signed By: <Electronically signed by Rao Hale MD in OV> 03/30/25 1626 DD/ 1518 TD/TT: 03/30/25 1618 Annual Giving Officer: Procedure Note Donotuseinterpreter, Image - 03/30/2025 [place] [address] XRay Report Signed Patient: Adelso Beebe#: [id number] : 1960cct:[id number] Age/Sex: 64 / MADM Date: 03/30/25 Loc: .ED Attending Dr: Ordering Physician: oJrge Wang MD Date of Service: 03/30/25 Procedure(s): XR knee RT 2V Accession Number(s): [id number] cc: Jorge Wang MD; Leta Soto MD EXAMINATION: XR KNEE, RIGHT CLINICAL INFORMATION: Fall COMPARISON: None available. TECHNIQUE: Four views of the right knee. FINDINGS: No fracture, dislocation, or suspicious bone lesion. No malalignment. Mild medial compartment joint space narrowing. Lateral and patellofemoral compartments appear preserved. No significant joint effusion present. No soft tissue abnormalities. XR/XR knee RT 2V IMPRESSION: No acute findings of the right knee. Electronically signed by: Rao Hale MD 03/30/2025 04:26 PM EDT RP Dictated By: Rao Hale MD Signed By: <Electronically signed by Rao Hale MD in OV> 03/30/25 1626 DD/ 1518 TD/TT: 03/30/25 1618 Annual Giving Officer: us [facility] External Provider IMG XR PROCEDURES Final Result * XR Hip right with Pelvis 1 view (03/30/2025 3:17 PM EDT) Anatomical Region Laterality Modality Lower Extremities, Hip Bilateral Radiograp hic Imaging 03/30/2025 3:17 PM EDT Narrative 03/30/2025 4:30 PM EDT [address] [address] XRay Report Signed Patient: Adelso Beebe MR#: [id number] : 1960 Acct:[id number] Age/Sex: 64 / M ADM Date: 03/30/25 Loc: HO.ED Attending Dr: Ordering Physician: Jorge Wang MD Date of Service: 03/30/25 Procedure(s): XR hip RT w PEL1V Accession Number(s): [id number] cc: Jorge Wang MD; Leta Soto MD EXAMINATION: XR HIP, RIGHT CLINICAL INFORMATION: Fall COMPARISON: None available. TECHNIQUE: AP pelvis, and Two views of the right hip. FINDINGS: No fracture. Pelvis is intact. Alignment is anatomic. Hip joint spaces are maintained. Soft tissues are unremarkable. XR/XR hip RT w PEL1V IMPRESSION: No acute bony abnormalities of the pelvis or hip joints. Electronically signed by: Rao Hale MD 03/30/2025 04:28 PM EDT Dictated By: Rao Hale MD Signed By: <Electronically signed by Rao Hale MD in OV> 03/30/25 1628 DD/ 1517 TD/TT: 03/30/25 1618 Annual Giving Officer: Procedure Note Donotuseinterpreter, Image - 03/30/[address] [address] XRay Report Signed Patient: Adelso BeebeMR#: [id number] : 1960cct:[id number] Age/Sex: 64 / MADM Date: 03/30/25 Loc: HO.ED Attending Dr: Ordering Physician: Jorge Wang MD Date of Service: 03/30/25 Procedure(s): XR hip RT w PEL1V Accession Number(s): [id number] cc: Jorge Wang MD; Leta Soto MD EXAMINATION: XR HIP, RIGHT CLINICAL INFORMATION: Fall COMPARISON: None available. TECHNIQUE: AP pelvis, and Two views of the right hip. FINDINGS: No fracture. Pelvis is intact. Alignment is anatomic. Hip joint spaces are maintained. Soft tissues are unremarkable. XR/XR hip RT w PEL1V IMPRESSION: No acute bony abnormalities of the pelvis or hip joints. Electronically signed by: Rao Hale MD 03/30/2025 04:28 PM EDT Dictated By: Rao Hale MD Signed By: <Electronically signed by Rao Hale MD in OV> 03/30/25 1628 DD/ 1517 TD/TT: 03/30/25 1618 Annual Giving Officer: [facility] External Provider IMG XR PROCEDURES Final Result * US Abdomen Limited (03/26/2025 10:11 AM EDT) Anatomical Region Laterality Modality Abdomen Ultrasound 03/26/2025 10:1 1 AM EDT Narrative 03/26/2025 11:08 AM EDT [address] [address] Ultrasound Report Signed Patient: Adelso Beebe MR#: [id number] : 1960 Acct:[id number] Age/Sex: 64 / M ADM Date: 03/24/25 Loc: HO.[facility] 450-[address]: Getachew Vega MD Ordering Physician: Getachew Vega MD Date of Service: 03/26/25 Procedure(s): US abdomen limited Accession Number(s): [id number] cc: Getachew Vega MD; Leta Soto MD EXAMINATION: US ABDOMEN LIMITED CLINICAL INFORMATION: Assess TIPS for patency. COMPARISON: None available. TECHNIQUE: Real-time imaging of the right upper quadrant abdominal viscera. FINDINGS: As per technologist note, very limited exam due to extensive overlying bowel gas. PANCREAS: Obscured by bowel gas. LIVER: The liver is normal in size. Right hepatic lobe measures 13.2 cm in length. The liver contour is normal. Hepatic echogenicity is coarsened and mildly increased, in keeping with hepatocellular disease. No suspicious focal hepatic lesion. There is no intrahepatic biliary duct dilatation seen. There is a TIPS catheter in place, which is patent on color Doppler imaging. The portal vein appears patent. It is somewhat dilated in keeping with portal hypertension. GALLBLADDER: The gallbladder is physiologically distended without evidence of stones, sludge, polyps, wall thickening or pericholecystic fluid. Negative sonographic Kellogg's sign. COMMON BILE DUCT: Could not be well visualized. RIGHT KIDNEY: Limited visualization of the upper and lower pole. No hydronephrosis. No renal calculi or focal parenchymal lesions. The kidney measures 11.0 cm in maximum dimension. FREE FLUID: None. US/US abdomen limited IMPRESSION: 1. Very limited examination secondary to extensive overlying bowel gas. 2. TIPS catheter within the liver is patent on color Doppler imaging. 3. Coarsened and increased hepatic echogenicity in keeping with hepatocellular disease. No suspicious lesion allowing for study limitations. 4. The common bile duct could not be well visualized. No intrahepatic biliary dilatation present. 5. Normal gallbladder. 6. Partially imaged right kidney is normal. Electronically signed by: Rao Hale MD 03/26/2025 11:05 AM EDT Dictated By: Rao Hale MD Signed By: <Electronically signed by Rao Hale MD in OV> 03/26/25 1105 DD/ 1011 TD/TT: 03/26/25 1028 Annual Giving Officer: Procedure Note Donotuseinterpreter, Image - 03/26/[address] [address] Ultrasound Report Signed Patient: Adelso BeebeMR#: [id number] : 2Acct:[id number] Age/Sex: 64 / MADM Date: 03/24/25 Loc: [facility] 450-[address]: Getachew Vega MD Ordering Physician: Getachew Vega MD Date of Service: 03/26/25 Procedure(s): US abdomen limited Accession Number(s): [id number] cc: Getachew Vega MD; Leta Soto MD EXAMINATION: US ABDOMEN LIMITED CLINICAL INFORMATION: Assess TIPS for patency. COMPARISON: None available. TECHNIQUE: Real-time imaging of the right upper quadrant abdominal viscera. FINDINGS: As per technologist note, very limited exam due to extensive overlying bowel gas. PANCREAS: Obscured by bowel gas. LIVER: The liver is normal in size. Right hepatic lobe measures 13.2 cm in length. The liver contour is normal. Hepatic echogenicity is coarsened and mildly increased, in keeping with hepatocellular disease. No suspicious focal hepatic lesion. There is no intrahepatic biliary duct dilatation seen. There is a TIPS catheter in place, which is patent on color Doppler imaging. The portal vein appears patent. It is somewhat dilated in keeping with portal hypertension. GALLBLADDER: The gallbladder is physiologically distended without evidence of stones, sludge, polyps, wall thickening or pericholecystic fluid. Negative sonographic Kellogg's sign. COMMON BILE DUCT: Could not be well visualized. RIGHT KIDNEY: Limited visualization of the upper and lower pole. No hydronephrosis. No renal calculi or focal parenchymal lesions. The kidney measures 11.0 cm in maximum dimension. FREE FLUID: None. US/US abdomen limited IMPRESSION: 1. Very limited examination secondary to extensive overlying bowel gas. 2. TIPS catheter within the liver is patent on color Doppler imaging. 3. Coarsened and increased hepatic echogenicity in keeping with hepatocellular disease. No suspicious lesion allowing for study limitations. 4. The common bile duct could not be well visualized. No intrahepatic biliary dilatation present. 5. Normal gallbladder. 6. Partially imaged right kidney is normal. Electronically signed by: Rao Hale MD 03/26/2025 11:05 AM EDT Dictated By: Rao Hale MD Signed By: <Electronically signed by Rao Hale MD in OV> 03/26/25 1105 DD/ 1011 TD/TT: 03/26/25 1028 Annual Giving Officer: us [facility] External Provider IMG US PROCEDURES Edited Result - Final * XR Chest 1 View (03/24/2025 10:24 PM EDT) Anatomical Region Laterality Modality Chest Radiographic Susy ging 03/24/2025 10:2 4 PM EDT Narrative 03/24/2025 10:25 PM EDT [address] [address] XRay Report Signed Patient: Adelso Beebe MR#: [id number] : 1960 Acct:[id number] Age/Sex: 64 / M ADM Date: 03/24/25 Loc: [place] [address]: Lc Cohn MD Ordering Physician: Judy Flores PA-C Date of Service: 03/24/25 Procedure(s): XR chest 1V Accession Number(s): [id number] cc: Leta Soto MD; Judy Flores PA-C CLINICAL HISTORY: cough, chest pain 1 view chest x-ray Comparison: CR/SR - XR CHEST 2 VIEWS - 03/17/25 09:06 EDT Findings: Heart size is top-normal. No consolidation, significant pleural effusion or significant pneumothorax. No acute fracture. Stable dextrocurvature of the thoracic spine. IMPRESSION: 1. No acute findings. This document has been electronically signed by: Daphne Jensen MD on 03/24/2025 22:24:13 Dictated By: Daphne Jensen MD Signed By: <Electronically signed by Daphne Jensen MD in OV> 03/24/252224 DD/ 23 TD/TT: 03/24/252223 Annual Giving Officer: Procedure Note Donotuseinterpreter, Image - 03/24/[address] [place] [address] XRay Report Signed Patient: Adelso BeebeMR#: [id number] : 1960cct:[id number] Age/Sex: 64 / MADM Date: 03/24/25 Loc: [place] [address]: Lc Cohn MD Ordering Physician: Judy Flores PA-C Date of Service: 03/24/25 Procedure(s): XR chest 1V Accession Number(s): [id number] cc: Leta Soto MD; Judy Flores PA-C CLINICAL HISTORY: cough, chest pain 1 view chest x-ray Comparison: CR/SR - XR CHEST 2 VIEWS - 03/17/25 09:06 EDT Findings: Heart size is top-normal. No consolidation, significant pleural effusion or significantpneumothorax. No acute fracture. Stable dextrocurvature of the thoracic spine. IMPRESSION: 1. No acute findings. This document has been electronically signed by: Daphne Jensen MD on 03/24/2025 22:24:13 Dictated By: Daphne Jensen MD Signed By: <Electronically signed by Daphne Jensen MD in OV> 03/24/252224 DD/ 23 TD/TT: 03/24/252223 Annual Giving Officer: [facility] External Provider IMG XR PROCEDURES Final Result * MR Brain w/o Contrast (03/24/2025 6:18 PM EDT) Anatomical Region Laterality Modality Brain Magnetic Resonan ce 03/24/2025 6:18 PM EDT Narrative 03/24/2025 6:19 PM EDT [address] [address] Magnetic Resonance Report Signed Patient: Adelso Beebe MR#: [id number] : 1960 Acct:[id number] Age/Sex: 64 / M ADM Date: 03/24/25 [facility]: Ordering Physician: Edwin Davis MD Date of Service: 03/24/25 Procedure(s): MR head/brain wo con Accession Number(s): [id number] cc: Leta Soto MD; Edwin Davis MD CLINICAL HISTORY: Dizziness, altered mental status R O stroke MR Brain without gadolinium Comparison: CT/REG/SR - HEAD HEAD_WITHOUT (ADULT) - 03/21/25 12:37 EDT Findings: The ventricles and subarachnoid spaces are normal in size in the ventricles are normal in position with no midline shift or herniation. No intra-axial or extra-axial hemorrhage. No restricted diffusion. No territorial infarct. Bilateral scattered supratentorial white matter hyperintense foci seen on T2 weighted and FLAIR sequences, nonspecific but most suggestive of mild chronic small-vessel ischemic changes. No focal mass lesion or mass effect. Midline structures are grossly normal. Flow voids are maintained within the major vessels of the base of the brain. Right globe prosthesis and right enophthalmos. Left orbital contents within appear normal. The sinuses and mastoid air cells are clear. No focal bone lesion. IMPRESSION: 1. No acute findings. 2. Mild nonspecific supratentorial white matter hyperintense foci most suggestive of chronic small-vessel ischemic changes. This document has been electronically signed by: Daphne Jensen MD on 03/24/2025 18:18:05 Dictated By: Daphne Jensen MD Signed By: <Electronically signed by Daphne Jensen MD in OV> 03/24/251818 DD/ 17 TD/TT: 03/24/251817 Annual Giving Officer: Procedure Note Donotuseinterpreter, Image - 03/24/2025 [place] [address] Magnetic Resonance Report Signed Patient: Adelso BeebeMR#: [id number] : 1960cct:[id number] Age/Sex: 64 / MADM Date: 03/24/25 Loc: HO.ED Attending Dr: Ordering Physician: Edwin Davis MD Date of Service: 03/24/25 Procedure(s): MR head/brain wo con Accession Number(s): [id number] cc: Leta Soto MD; Edwin Davis MD CLINICAL HISTORY: Dizziness, altered mental status R O stroke MR Brain without gadolinium Comparison: CT/REG/SR - HEAD HEAD_WITHOUT (ADULT) - 03/21/25 12:37 EDT Findings: The ventricles and subarachnoid spaces are normal in size in the ventricles are normal in position with no midline shift or herniation. No intra-axial or extra-axial hemorrhage. No restricted diffusion. No territorial infarct. Bilateral scattered supratentorial white matter hyperintense foci seen on T2 weighted and FLAIR sequences, nonspecific but most suggestive of mild chronic small-vessel ischemic changes. No focal mass lesion or mass effect. Midline structures are grossly normal. Flow voids are maintained within the major vessels of the base of the brain. Right globe prosthesis and right enophthalmos. Left orbital contents within appear normal. The sinuses and mastoid air cells are clear. No focal bone lesion. IMPRESSION: 1. No acute findings. 2. Mild nonspecific supratentorial white matter hyperintense foci most suggestive of chronic small-vessel ischemic changes. This document has been electronically signed by: Daphne Jensen MD on 03/24/2025 18:18:05 Dictated By: Daphne Jensen MD Signed By: <Electronically signed by Daphne Jensen MD in OV> 03/24/251818 DD/ 17 TD/TT: 03/24/251817 Annual Giving Officer: [facility] External Provider IMG MRI PROCEDURES Final Result * (ABNORMAL) VENOUS BLOOD GAS (03/24/2025 2:32 PM EDT) VBG pH 7.54(H) 7.32 - 7.43 [facility] Comment:METER #: [id number] additional_comment: Cb felicityalt VBG PCO2 25 mmHg [facility] Comment:METER #: [id number] additional_comment: Cb rogalt VBG PO2 99 mmHg [facility] Comment:METER #: [id number] additional_comment: Cb felicityalt VBG Base Excess 0.3 mmol/L [facility] Comment:METER #: [id number] additional_comment: Cb felicityalt VBG HCO3 21(L) 22 - 26 mmol/L [facility] Comment:METER #: [id number] additional_comment: Jeferson dickinson O2 Sat, [place] 100.0 % [facility] Comment:METER #: [id number] additional_comment: Jeferson dickinson 03/24/2025 2:32 PM EDT 03/24/2025 2:37 PM EDT Generic External Data Provider LAB BLOOD ORDERAB LES Final Result Performing Organization Address [facility]/ZIP Co de Phone Number [facility] [address] [place] [address] [phone] * Type and screen (03/21/2025 12:18 PM EDT) Blood Type ON [facility] Antibody Screen NEGATIVE [facility] 03/21/2025 12:1 8 PM EDT 03/21/2025 12:23 PM EDT Generic External Data Provider LAB BLOOD BANK TE ST ORDERABLES Final Result Performing Organization Address [facility] Co de Phone Number [facility] [address] [place] [phone] * Urinalysis, Complete, with Reflex to Culture (03/21/2025 12:11 PM EDT) Only the most recent of2 resultswithin the time period is included. Color Urine Yellow [facility] Appearance Urine Clear [facility] PH 6.0 5.0 - 9.0 [facility] Glucose Urine UA Negative Negative mg/dL [facility] Urine Blood Negative Negative [facility] Specific Nogal - Urine 1.010 1.005 - 1.025 [facility] Urine Protein Negative Neg-Trace mg/dL [facility] Urine Ketones Negative Negative mg/dL [facility] Nitrite Urine Negative Negative [facility] Leukocyte Esterase Urine Negative Negative [facility] RBC Urine 0-2 0 - 2 /HPF [facility] Urine WBC 0-5 0 - 5 /HPF [facility] Urine Squamous Epithelial Cell 0-2 0 - 2 /HPF [facility] Urine Bacteria None Seen None Seen [facility] Hyaline Casts, Urine 0-2 0 - 2 /LPF [facility] 03/21/2025 12:1 1 PM EDT 03/21/2025 12:14 PM EDT Narrative [facility] - 03/21/2025 12:28 PM EDT 1158Urine, Clean Catch us Generic External Data Provider LAB URINE ORDERAB LES Final Result Performing Organization Address [facility] Co de Phone Number [facility] [address] [place] [phone] * Lipase (03/21/2025 12:11 PM EDT) Lipase 41 8 - 78 U/L [facility] 03/21/2025 12:1 1 PM EDT 03/21/2025 12:14 PM EDT us Generic External Data Provider LAB BLOOD ORDERAB LES Final Result Performing Organization Address [facility] Co de Phone Number [facility] [address] [place] [phone] * Lactic Acid (03/21/2025 12:11 PM EDT) Lactic Acid 1.6 0.5 - 2.0 mmol/L [facility] 03/21/2025 12:1 1 PM EDT 03/21/2025 12:14 PM EDT us Generic External Data Provider LAB BLOOD ORDERAB LES Final Result Performing Organization Address [facility] Co de Phone Number [facility] [address] [place] [phone] * Glucose, Whole Blood (03/21/2025 10:55 AM EDT) Glucose, Whole Blood 83 60 - 115 mg/dL [facility] Comment:METER #: [id number] 03/21/2025 10:5 5 AM EDT 03/23/2025 8:12 AM EDT us Generic External Data Provider LAB BLOOD ORDERAB LES Final Result [facility] [address] [place] [phone] * XR Chest 2 Views (03/17/2025 8:06 AM EDT) Anatomical Region Laterality Modality Chest Radiographic Susy ging 03/17/2025 8:06 AM EDT Narrative 03/17/2025 9:11 AM EDT [address] [address] XRay Report Signed Patient: Adelso Beebe MR#: [id number] : 1960 Acct:[id number] Age/Sex: 64 / M ADM Date: 03/17/25 Loc: HO.HHCX Attending Dr: Leta Dick MD Ordering Physician: Leta Soto MD Date of Service: 03/17/25 Procedure(s): XR chest 2V Accession Number(s): [id number] cc: Leta Soto MD EXAMINATION: XR CHEST CLINICAL INFORMATION: ABNORMAL CXR; follow-up left upper lobe pneumonia seen 11/21/2024. COMPARISON: 02/28/2025, 01/21/2025. TECHNIQUE: 2 views of the chest were obtained. FINDINGS: The cardiac, hilar, and mediastinal contours are normal. The lungs are clear bilaterally. There is no pneumothorax or pleural effusion. There is no focal osseous or soft tissue abnormality. There is a dextroconvex scoliosis of the thoracic spine. There is a TIPS catheter in place. XR/XR chest 2V IMPRESSION: No active pulmonary disease. Electronically signed by: Rao Hale MD 03/17/2025 09:09 AM EDT RP Dictated By: Rao Hale MD Signed By: <Electronically signed by Rao Hale MD in OV> 03/17/25 0909 DD/ 08 TD/TT: 03/17/2558 Annual Giving Officer: Procedure Note Donotuseinterpreter, Image - 03/17/[address] [address] XRay Report Signed Patient: Adelso BeebeMR#: [id number] : 1960cct:[id number] Age/Sex: 64 / MADM Date: 03/17/25 Loc: HO.HHCX Attending Dr: Leta Dick MD Ordering Physician: Leta Soto MD Date of Service: 03/17/25 Procedure(s): XR chest 2V Accession Number(s): [id number] cc: Leta Soto MD EXAMINATION: XR CHEST CLINICAL INFORMATION: ABNORMAL CXR; follow-up left upper lobe pneumonia seen 11/21/2024. COMPARISON: 02/28/2025, 01/21/2025. TECHNIQUE: 2 views of the chest were obtained. FINDINGS: The cardiac, hilar, and mediastinal contours are normal. The lungs are clear bilaterally. There is no pneumothorax or pleural effusion. There is no focal osseous or soft tissue abnormality. There is a dextroconvex scoliosis of the thoracic spine. There is a TIPS catheter in place. XR/XR chest 2V IMPRESSION: No active pulmonary disease. Electronically signed by: Rao Hale MD 03/17/2025 09:09 AM EDT RP Dictated By: Rao Hale MD Signed By: <Electronically signed by Rao Hale MD in OV> 03/17/25 0909 DD/ 08 TD/TT: 03/17/2558 Annual Giving Officer: us Leta Dick MD IMG XR PROCEDURES Edited Result - Final * Drug Monitoring, Panel 1, Screen, Urine (02/26/2025 2:17 PM EDT) Opiate Screen Urine Not Detected Not Detect [facility] Comment:Opiate cut-off is 30 0 ng/mL.Positive results are unconfirmed and should not be used fornon-medical purposes. Barbiturates, Urine Not Detected Not Detect [facility] Comment:Barbiturate cut-off is 200 ng/mL.Positive results are unconfirmed and should not be used fornon-medical purposes. Phencyclidine Screen Urine Not Detected Not Detect [facility] Comment:Phencyclidine cut-of f is 25 ng/mL.Positive results are unconfirmed and should not be used fornon-medical purposes. Amphetamine Screen Urine Not Detected Not Detect [facility] Comment:Amphetamine cut-off is 1000 ng/mL.Positive results are unconfirmed and should not be used fornon-medical purposes. Benzodiazepines Screen Urine Not Detected Not Detect [facility] Comment:Benzodiazepine cut-o ff is 200 ng/mL.Positive results are unconfirmed and should not be used fornon-medical purposes. Cocaine Screen Urine Not Detected Not Detect [facility] Comment:Cocaine cut-off is 3 00 ng/mL.Positive results are unconfirmed and should not be used fornon-medical purposes. Cannabinoid Screen Urine Not Detected Not Detect [facility] Comment:Cannabinoid cut-off is 50 ng/mL.Positive results are unconfirmed and should not be used fornon-medical purposes. Methadone Screen, Urine Not Detected Not Detect ng/mL [facility] Comment:Methadone cut-off is 300 ng/mL.Positive results are unconfirmed and should not be used fornon-medical purposes. FENTANYL URINE Not Detected Not Detect [facility] Comment:Fentanyl cut-off is 1 ng/mL.Positive results are unconfirmed and should not be used fornon-medical purposes. Oxycodone Urine Screen Not Detected Not Detect ng/mL [facility] Comment:Oxycodone cut-off is 100 ng/mL.Positive results are unconfirmed and should not be used fornon-medical purposes. Buprenorphine Screen Not Detected Not Detect ng/mL [facility] Comment:Buprenorphine cut-of f is 5 ng/mL.Positive results are unconfirmed and should not be used fornon-medical purposes. 02/26/2025 2:17 PM EDT 02/26/2025 2:21 PM EDT us Generic External Data Provider LAB URINE ORDERAB LES Final Result Performing Organization Address City/State/[facility] Co de Phone Number [facility] [address] [place] [phone] * CTA Head Stroke w/ and w/o Contrast (02/13/2025 11:05 PM EDT) Anatomical Region Laterality Modality Computed Tomogra phy 02/13/2025 11:0 5 PM EDT Narrative 02/13/2025 11:06 PM EDT [address] [address] [address] Scan Report Signed Patient: Adelso Beebe MR#: [id number] : 1960 Acct:[id number] Age/Sex: 64 / M ADM Date: 02/13/25 Loc: HO.ED Attending Dr: Ordering Physician: Cash Reno MD Date of Service: 02/13/25 Procedure(s): CT angio head neck STROKE Accession Number(s): [id number] cc: Cash Reno MD; Leta Soto MD Report Number: [id number]: Total DLP = 705.00 mGy-cm CLINICAL HISTORY: Stroke Protocol - weakness CT angiography head and neck with contrast. 3D Postprocessing. Comparison: None Findings: Examination limited by suboptimal contrast bolus in by diffuse artifact. Aortic arch suboptimally enhanced. Bilateral common carotid arteries enhance normally and appear normal in size. Bilateral carotid bifurcations are unremarkable. Bilateral internal carotid arteries and external carotid arteries are patent. No significant plaque or hemodynamically significant stenosis. Bilateral vertebral arteries are patent. Bilateral intracranial internal carotid arteries are patent. Vertebral basilar junction is unremarkable and basilar artery enhances normally. Bilateral anterior, middle and posterior cerebral arteries are patent. No aneurysm. No definite intracranial large vessel occlusion. No acute fracture. Degenerative changes in cervical spine. Left maxillary sinus mucosal thickening. IMPRESSION: 1. Limited examination by suboptimal contrast bolus and artifact. 2. Patent neck CTA. 3. No definite intracranial large vessel occlusion. This document has been electronically signed by: Daphne Jenesn MD on 02/13/2025 23:05:42 Dictated By: Daphne Jensen MD Signed By: <Electronically signed by Daphne Jensen MD in OV> 02/13/252305 DD/ 04 TD/TT: 02/13/252304 Annual Giving Officer: Procedure Note Donotuseinterpreter, Image - 02/13/[address] [place] [address] [address] Scan Report Signed Patient: Adelso BeebeMR#: [id number] : 1960cct:[id number] Age/Sex: 64 / MADM Date: 02/13/25 Loc: HO.ED Attending Dr: Ordering Physician: Cash Reno MD Date of Service: 02/13/25 Procedure(s): CT angio head neck STROKE Accession Number(s): [id number] cc: Cash Reno MD; Leta Soto MD Report Number: [id number]: Total DLP = 705.00 mGy-cm CLINICAL HISTORY: Stroke Protocol - weakness CT angiography head and neck with contrast. 3D Postprocessing. Comparison: None Findings: Examination limited by suboptimal contrast bolus in by diffuse artifact. Aortic arch suboptimally enhanced. Bilateral common carotid arteries enhance normally and appear normal in size. Bilateral carotid bifurcations are unremarkable. Bilateral internal carotid arteries and external carotid arteries are patent. No significant plaque or hemodynamically significant stenosis. Bilateral vertebral arteries are patent. Bilateral intracranial internal carotid arteries are patent. Vertebral basilar junction is unremarkable and basilar artery enhances normally. Bilateral anterior, middle and posterior cerebral arteries are patent. No aneurysm. No definite intracranial large vessel occlusion. No acute fracture. Degenerative changes in cervical spine. Left maxillary sinus mucosal thickening. IMPRESSION: 1. Limited examination by suboptimal contrast bolus and artifact. 2. Patent neck CTA. 3. No definite intracranial large vessel occlusion. This document has been electronically signed by: Daphne Jensen MD on 02/13/2025 23:05:42 Dictated By: Daphne Jensen MD Signed By: <Electronically signed by Daphne Jensen MD in OV> 02/13/252305 DD/ 04 TD/TT: 02/13/252304 Annual Giving Officer: [facility] External Provider IMG CT PROCEDURES Final Result * Lipid Panel, Standard (04/06/2023 10:00 AM EDT) Triglycerides 94 mg/dL [facility] Comment:Desirable Triglyceri de: less than [...] to 190 mg/dL HDL Cholesterol 25 mg/dL [facility] Comment:Desirable HDL: great er than 40 mg/dL Note: This HDL assay may give artificially low results in patients with liver disease. Blood Venous blood specimen / Unknown 04/06/2023 10:00 AM EDT 04/06/2023 11:20 AM EDT Ann Piña [facility] LAB BLOOD ORDERABLES Final Resul t [facility] [address] [place] [phone] from Last 3 Months or Most Recently Relevant to Health Maintenance [place] [address] [place] [address] C3 Care Teams Wire Border Assembler Relationship Specialty Start Date End Date Leta Soto MD [address] [place] [address] [phone] PCP - General Internal Medicine 04/11/23 Yajaira Antonio [address] [place] [address] 3rd Floor [place], [place] [phone] Gastroenterology 09/04/24 [facility] 01/28/25
--- OUTSIDE RECORDS SUMMARY | 2025-05-15 12:21 | XMS_ITS ---
Author Organization [employer] Address [address] [facility] 7t [place] [address] Care Team Providers Care Atmospheric Physicist Name Role Phone Leta Soto MD Primary Care Pro vider Yajaira Antonio Unavailable CM Complex Status:Outreach In Progress (Enrolling) Start date:11/27/2024 Enrollment reason:Referred by provider Overview PCP Referral- 63-year-old male with HCV cirrhosis and multiple hospitalizations for hepatic encephalopathy with ongoing homelessness, poor health literacy. Needs support managing specialist appointments. pt w advanced liver disease and cognitive impairment needs assistance with apts and to be reminded -thanks Case Team Name Relationship Phone Stanley Mckeon RN(Responsible Staff) Registered Nurse [phone] Continued Care and Services Coordination
--- OUTSIDE RECORDS SUMMARY | 2025-05-15 12:21 | XMS_ITS | Encounter Summary ---
Author Organization [employer] Address [address] [facility] 7t [place] [address] Care Team Providers Care Director Clinical Research Name Role Phone Leta Soto MD Primary Care Pro vider Yajaira Antonio Unavailable Encounter Details Date Type Department Care Team (Late st Contact Info) Description 04/13/2025 Results Follow-Up [facility] [address] [place] [address] Leta Soto MD [address] [place] [address] CT Cervical Spine w/o Contrast Social History Tobacco Use Types Packs/Day Years [...] Encounter Note - Leta Dick MD - 04/13/2025 12:41 PM EDT Labs done by outside provider documented in this encounter Plan of Treatment Upcoming Encounters Date Type Department Care Team (Late st Contact Info) Description 06/09/2025 9:45 AM EDT Office Visit [facility] [address] [place] [phone] Leta Soto MD [address] [place] [address] documented as of this encounter Goals Goal [...] documented as of this encounter Care Teams Director Clinical Research Relationship Specialty Start Date End Date Leta Soto MD [address] [place] [phone] PCP - General Internal Medicine 04/11/23 Yajaira Antonio [address] [place] [address] 3rd [place] [address] Gastroenterology 09/04/24 [facility] 01/28/25 documented as of this encounter
--- OUTSIDE RECORDS SUMMARY | 2025-05-15 12:21 | XMS_ITS | Encounter Summary ---
Author Organization [employer] Address [address] [facility] 7t [place] [address] Care Team Providers Care Apprentice Cook Name Role Phone Leta Soto MD Primary Care Pro vider Yajaira Antonio Unavailable Encounter Details Date Type Department Care Team (Late st Contact Info) Description 11/11/2024 Telephone [facility] [address] [place] [address] Leta Soto MD [address] [place] [address] Social History Tobacco Use Types Packs/Day Years [...] 12:27 PM EST Tc from amrita stiles director of casework services requesting the status on pt documented in this encounter Plan of Treatment Upcoming Encounters Date Type Department Care Team (Late st Contact Info) Description 06/09/2025 9:45 AM EDT Office Visit [facility] [address] [place] [phone] Leta Soto MD [address] [place] [address] documented as of this encounter Goals Goal [...] documented as of this encounter Care Teams Apprentice Cook Relationship Specialty Start Date End Date Leta Soto MD [address] [place] [phone] PCP - General Internal Medicine 04/11/[address]rd [place] [address] Gastroenterology 09/04/24 [facility] 01/28/25 documented as of this encounter
--- OUTSIDE RECORDS SUMMARY | 2025-05-15 12:21 | XMS_ITS | Encounter Summary ---
Author Organization [employer] Address [address] [facility] 7t [place] [address] Care Team Providers Care Robotics Technician Name Role Phone Leta Soto MD Primary Care Pro vider Yajaira Antonio Unavailable Encounter Details Date Type Department Care Team (Late st Contact Info) Description 12/17/2023 Orders Only [facility] [address] [place] [address] Tatyana Mosquera FNP [address] [place] [address] Social History Tobacco Use Types Packs/Day Years [...] with others, in a hotel, in a nursing home, living outside on the street, on [...] Description 06/09/2025 9:45 AM EDT Office Visit [facility] [address] [place] [phone] Leta Soto MD [address] [place] [phone] documented as of this encounter Goals Goal [...] documented as of this encounter Care Teams Robotics Technician Relationship Specialty Start Date End Date Leta Soto MD [address] [place] [phone] PCP - General Internal Medicine 04/11/23 Yajaira Antonio [address]rd [place] [address] Gastroenterology 09/04/24 [facility] 01/28/25 documented as of this encounter
--- OUTSIDE RECORDS SUMMARY | 2025-05-15 12:21 | XMS_ITS | Encounter Summary ---
Author Organization [employer] Address [address] [facility] 7t [place] [address] Care Team Providers Care Stem Threshing Machine Operator Name Role Phone Leta Soto MD Primary Care Pro vider Yajaira Antonio Unavailable Encounter Details Date Type Department Care Team (Late st Contact Info) Description 04/21/2025 Orders Only [facility] [address] [place] [address] Imelda Pfeiffer, CHANDU [address] [place] [address] Healthcare maintenance Social History Tobacco Use Types Packs/Day Years [...] Description 06/09/2025 9:45 AM EDT Office Visit [facility] [address] [place] [address] [phone] Leta Soto MD [address] [place], [place] [phone] Scheduled Orders Name Type Priority Associated Diagnoses Orde r Schedule HIV-1 RNA, Quantitative, Real-Time PCR Lab Routine Healthcare maintenance Expected: 04/21/2025 (Approximate), Expires: 04/21/2026 Syphilis Screen Lab Routine Healthcare maintenance Expected: 04/21/2025 (Approximate), Expires: 04/21/2026 RPR (Monitor) with Reflex to Titer Lab Routine Healthcare maintenance Expected: 04/21/2025 (Approximate), Expires: 04/21/2026 Hepatitis C Antibody with Reflex to HCV, RNA, Quantitative, Real-Time PCR Lab Routine Healthcare maintenance Expected: 04/21/2025 (Approximate), Expires: 04/21/2026 documented as of this encounter Goals Goal Patient Goal Type Associated Problems Recent Progress Patient-Stated? Author Blood Pressure < 140/90 Blood Pressure 146/72(2024 9:16 AM EDT) No Loan Talbot Record your blood pressure once per day Blood Pressure No Loan Talbot documented as of this encounter Procedures Procedure Name Priority Date/Time Associated Diagnosis Comments SYPHILIS SCREEN Routine 04/21/2025 10:43 AM EDT Healthcare maintenance HEPATITIS C VIRAL RNA, QUANTITATIVE, REAL-TIME PCR Routine 04/21/2025 10:43 AM EDT Healthcare maintenance HEPATITIS C AB W/REFL TO HCV RNA, QN, PCR Routine 04/21/2025 10:43 AM EDT Healthcare maintenance HIV 1 RNA, QUANTITATIVE REAL TIME PCR Routine 04/21/2025 10:43 AM EDT Healthcare maintenance RPR (MONITOR) W/REFL TITER Routine 04/21/2025 10:43 AM EDT Healthcare maintenance documented in this encounter Results * Hepatitis C Viral RNA, Quantitative, Real-Time PCR (04/21/2025 10:43 AM EDT) Hepatitis C Viral Load <15 NOT DETECTED NOT DETECTED IU/mL [facility] HCV Log PCR <1.18 NOT DETECTED NOT DETECTED Log IU/mL [facility] Comment:For additional infor tash, please refer tohttp://education.NXVISION/faq/KGJ79t9(This link is being provided for informational/educational purposes only.)THIS TEST WAS PERFORMED AT:[facility] [place] [phone] STRICKLAND MD 04/21/2025 10:4 3 AM EDT 04/22/2025 8:54 AM EDT us Leta Dick MD LAB BLOOD ORDERAB LES Final Result [facility] [address] [place] [phone] * HIV-1 RNA, Quantitative, Real-Time PCR (04/21/2025 10:43 AM EDT) HIV RNA PCR Qn Copies NOT DETECTED NOT DETECTED copies/mL [facility] HIV RNA PCR Qn Log Copies NOT DETECTED NOT DETECTED [facility] Comment:Result Units: Log co pies/mLThis test was performed using Real-Time Polymerase ChainReaction.Reportable Range: 20 copies/mL to 10,000,000 copies/mL(1.30 log copies/mL to 7.00 log copies/mL).THIS TEST WAS PERFORMED AT:[facility] [place] [phone] STRICKLAND MD 04/21/2025 10:4 3 AM EDT 04/21/2025 1:18 PM EDT us Leta Dick MD LAB BLOOD ORDERAB LES Final Result [facility] [address] [place] [phone] * RPR (Monitor) with Reflex to??Titer (04/21/2025 10:43 AM EDT) RPR (Monitor) w/Refl Titer NON-REACTI VE NON-REACT [place] [facility] Comment:THIS TEST WAS PERFOR MED AT:[facility] [place] [phone] STRICKLAND MD Rapid Plasma Reagin Ab Titer TNP [facility] 04/21/2025 10:4 3 AM EDT 04/21/2025 1:18 PM EDT us Leta Dick MD LAB BLOOD ORDERAB LES Final Result [facility] [address] [place] [phone] * (ABNORMAL) Hepatitis C Antibody with Reflex to HCV, RNA, Quantitative, Real- Time PCR (04/21/2025 10:43 AM EDT) Hepatitis C Antibody Reactive( A) Nonreactive [facility] Comment:Presumptive evidence of antibodies to HCV. 04/21/2025 10:4 3 AM EDT 04/21/2025 1:18 PM EDT us Leta Dick MD LAB BLOOD ORDERAB LES Final Result Performing Organization Address [facility]/ZIP Co de Phone Number [facility] [address] [place] [phone] * Syphilis Screen (04/21/2025 10:43 AM EDT) Syphilis Screen Nonreactive Nonreactive [facility] 04/21/2025 10:4 3 AM EDT 04/21/2025 1:18 PM EDT us Leta Dick MD LAB BLOOD ORDERAB LES Final Result Performing Organization Address [facility] Co de Phone Number [facility] [address] [place] [phone] documented in this encounter Visit Diagnoses Diagnosis Healthcare maintenance documented in this encounter Additional Health Concerns Assessment Noted Time PHQ-9 Depression Total Score: 0 03/12/20 25 10:25 AM EDT documented as of this encounter Care Teams Stem Threshing Machine Operator Relationship Specialty Start Date End Date Leta Soto MD [address] [place] [phone] PCP - General Internal Medicine 04/11/23 Yajaira Antonio [address] [place] [address] Drive 3rd [place] [address] Gastroenterology 09/04/24 [facility] 01/28/25 documented as of this encounter
--- OUTSIDE RECORDS SUMMARY | 2025-05-15 12:21 | XMS_ITS | Encounter Summary ---
Author Organization [employer] Address [address] [facility] 7[address] [place] [address] Care Team Providers Care Chemical Reclamation Equipment Operator Name Role Phone Leta Soto MD Primary Care Pro vider Yajaira Antonio Unavailable Encounter Details Date Type Department Care Team (Late st Contact Info) Description 05/15/2025 Orders Only GENERIC EXTERNAL DATA [...] Description 06/09/2025 9:45 AM EDT Office Visit [facility] [address] [place] [phone] Leta Soto MD [address] [place], [place] [phone] documented as of this encounter Goals Goal Patient Goal Type Associated Problems Recent Progress Patient-Stated? Author Blood Pressure < 140/90 Blood Pressure 146/72(2024 9:16 AM EDT) No Loan Talbot Record your blood pressure once per day Blood Pressure No Loan Talbot documented as of this encounter Procedures Procedure Name Priority Date/Time Associated Diagnosis Comments PROTHROMBIN TIME-INR Routine 05/15/2025 11:23 AM EDT documented in this encounter Results * (ABNORMAL) Prothrombin Time-INR (05/15/2025 11:23 AM EDT) Prothrombin Time 16.1(H) 10.9 - 12.4 SEC [facility] INTERNATIONAL NORM RATIO 1.4(H) 0.9 - 1.1 [facility] Comment:INTERNATIONAL NORMAL IZED RATIO (INR) [...] Provider LAB BLOOD ORDERAB LES Final Result [facility] [address] [place] [address] [phone] documented in this encounter Visit Diagnoses Not on filedocumented in this encounter Additional Health Concerns Assessment Noted Time PHQ-9 Depression Total Score: 0 03/12/20 25 10:25 AM EDT documented as of this encounter Care Teams Chemical Reclamation Equipment Operator Relationship Specialty Start Date End Date Leta Soto MD [address] [place] [address] PCP - General Internal Medicine 04/11/23 Yajaira Antonio [address] 3rd [place] [address] Gastroenterology 09/04/24 [facility] 01/28/25 documented as of this encounter
--- OUTSIDE RECORDS SUMMARY | 2025-05-15 12:21 | XMS_ITS | Encounter Summary ---
Author Organization [email or web address] Address [address] [facility] 7t [place] [address] Care Team Providers Care Pony Roll Finisher Name Role Phone Leta Soto MD Primary Care Pro vider Yajaira Antonio Unavailable Encounter Details Date Type Department Care Team (Late st Contact Info) Description 03/23/2025 Results Follow-Up [facility] [address] [place] [address] Leta Soto MD [address] [place] [address] CT Head w/o Contrast, Ammonia, Plasma, Urinalysis, Complete, with Reflex to Culture, Additional followed-up results: 9 Social History Tobacco Use Types Packs/Day Years [...] Encounter Note - Leta Dick MD - 03/23/2025 2:32 PM EDT Labs done by outside provider * Result Encounter Note - Leta Dick MD - 03/23/2025 2:31 PM EDT Please can you let pt's cousin Sherie -emergency contact know that Xifaxan medication was covered and needs to pick it up at the pharmacy Thanks documented in this encounter Plan of Treatment Upcoming Encounters Date Type Department Care Team (Late st Contact Info) Description 06/09/2025 9:45 AM EDT Office Visit [facility] [address] [place] [address] Leta Soto MD [address] [place], [place] [phone] documented as of this encounter Goals Goal [...] documented as of this encounter Care Teams Pony Roll Finisher Relationship Specialty Start Date End Date Leta Soto MD [address] [place] [address] PCP - General Internal Medicine 04/11/23 Yajaira Antonio [address]rd [place] [address] Gastroenterology 09/04/24 [facility] 01/28/25 documented as of this encounter
--- OUTSIDE RECORDS SUMMARY | 2025-05-15 12:21 | XMS_ITS ---
Author Organization [employer] Address [address] [facility] 7[address] [place] [address] Care Team Providers Care Motor Overhauler Name Role Phone Leta Soto MD Primary Care Pro vider Yajaira Antonio Unavailable [facility] Complex Status:Outreach In Progress (Enrolling) Start date:11/27/2024 Enrollment reason:Referred by provider Overview PCP Referral- 63-year-old male with HCV cirrhosis and multiple hospitalizations for hepatic encephalopathy with ongoing homelessness, poor health literacy. Needs support managing specialist appointments. Please outreach for enrollment. Case Team Name Relationship Phone Chata Puente(Responsible Staff) [phone] Continued Care and Services Coordination
--- NOTE | 2025-05-15 13:03 | ED.GENADULT ---
HPI - General Adult General Chief complaint: Dizziness Stated complaint: CP,SOB PER EMS Time Seen by Provider: 05/15/25 12:59 Source: patient Mode of arrival: ambulatory Limitations: language barrier History of Present Illness ED Provider: Dr. Yu HPI narrative: 63-year-old male history of leukopenia, liver cirrhosis, hepatic encephalopathy, gastritis, hepatitis-B, iron-deficiency anemia presented hospital today for evaluation of dizziness. Patient was at a [facility] when he had sudden onset of dizziness. Patient describes as a vertiginous dizziness. Worsened with movement. Denies any chest pain denies any shortness of breath. Patient stated that due to dizziness it was difficult for him to ambulate. Related Data Home Medications ?Medication ?Instructions ?Recorded ?Confirmed furosemide 40 mg tablet 40 mg PO DAILY 04/21/25 04/21/25 Previous Rx's ?Medication ?Instructions ?Recorded walker #1 ea 02/08/25 carvedilol 3.125 mg tablet 3.125 mg PO BID #60 tabs 03/02/25 amlodipine 5 mg tablet 5 mg PO DAILY #90 tabs 04/21/25 lactulose 10 gram/15 mL oral 40 g (60 mL) PO BID #1,200 mL 05/04/25 solution levofloxacin 500 mg tablet 500 mg PO DAILY #4 tabs 05/04/25 rifaximin 550 mg tablet (Xifaxan) 550 mg PO BID #60 tabs 05/04/25 Allergies Allergy/AdvReac Type Severity Reaction Status Date / Time dicyclomine (From Bentyl) Allergy Unknown Verified 05/15/25 11:10 aspirin AdvReac Severe stomach Verified 05/15/25 11:10 bleeding NSAIDS (Non-Steroidal AdvReac Severe liver Verified 05/15/25 11:10 Anti-Inflamma concerns Review of Systems Review of Systems: Pertinent review of systems as mentioned in HPI. All other system otherwise negative. [facility] Past Medical History [facility] Narrative: Medical history as mentioned in [facility] Medical History (Updated 05/15/25 @ 16:22 by Sofiya Yu DO) Pancytopenia Hyperammonemia Pancytopenia Obesity (BMI 30.0-34.9) Cirrhosis of liver Fall Pancytopenia Hepatic encephalopathy Portal vein thrombosis Cirrhosis Splenic vein thrombosis Sepsis Cirrhosis of liver with ascites Abdominal pain Thrombocytopenia Pancytopenia Cirrhosis Hepatitis C virus infection Esophageal varices Pancytopenia Iron deficiency anemia Cirrhosis Hepatitis C HBP (high blood pressure) Surgical History S/P TIPS (transjugular intrahepatic portosystemic shunt) H/O left inguinal hernia repair H/O eye surgery History of esophagogastroduodenoscopy (EGD) H/O colonoscopy Family History Family History Maternal Grandmother Breast CA Uterus cancer Mother Primary lung cancer of unknown cell type Social History Social History Household Members: None Household Members Other:: [facility] Housing: Homeless Housing Other:: [facility] Are you a primary daycare provider to a significant other at home: No Do you presently have visiting nurse or other home services: No Unable to assess alcohol history related to: Unable to respond Alcohol intake: former Comment: pt refusing alarm's Patient Tobacco Use Status: Tobacco use Unknown Tobacco use type: Cigarette Cigarette Packs Per Day: 1 Cigarettes Per Day: 0.5 Years Smoked: 30 e-Cigarette/Vaping Use: Currently Using Second Hand Smoke Exposure: No Substance Use Type: Crack/Cocaine and Marijuana Advance Directives: Yes Advance Directives on File: Yes Advance Directives Date on File: 04/02/24 service: No Current occupational status: retired Physical Exam ED Exam Exam: General: Pleasant, no distress, interacting appropriately Head: Normacephalic, atraumatic ENT: oral mucosa moist, neck supple, no tracheal deviation Cardiovascular: regular rate, regular rhythm, no murmurs, rubbing, gallops Respiratory: CTAB, no wheeze, rales, rhonchi Gastrointestinal: Soft, non distended, non tender, non guarding Extremities: No limb pain or swelling, no calf tenderness Neurological: Awake and alert, no facial droop noted, no sign of ataxia on [id number]-ap-excp, equal strength in upper and lower extremity, sensation is intact bilaterally, no visual field deficit on exam, EOMI, Skin: Warm and dry Psychiatric: Appropriate mood and thoughts Vital Signs: Vital Signs - 24 hr 05/15/25 11:07 05/15/25 12:00 05/15/25 14:00 Temperature 98.2 F 98.2 F Pulse Rate 67 68 65 Respiratory Rate 18 13 14 Blood Pressure 119/42 L 140/49 H 138/52 L Pulse Oximetry 100 100 98 Oxygen Delivery Method Room Air Room Air Room Air BMI result Body Mass Index 29.7 Medications Administered Discontinued Medications Generic Name Dose Route Start Last Admin Trade Name Samuel PRN Reason Stop Dose Admin Sodium Chloride 1,000 mls @ 999 mls/hr 05/15/25 13:45 05/15/25 14:13 Ns IV 05/15/25 14:45 999 mls/hr .Q1H1M LALI Administration Meclizine HCl 25 mg 05/15/25 13:43 05/15/25 14:12 Meclizine Hcl 25 Mg Tablet PO 05/15/25 13:44 25 mg ONCE ONE Administration Medical Decision Making Medical Decision Making [facility] Narrative: This is a 64-year-old male presented hospital today for evaluation of dizziness. It is Bolus IV fluid was given to the patient. I did review patient's lab work. Patient does have some signs of leukopenia, low platelets, anemia. This is similar to his previous lab work. It has not acutely changed. Patient's INR is elevated at 1.4 consistent with his cirrhosis. Patient's chemistry is unremarkable. Patient troponins negative here x2. UA did not show any signs of UTI On reassessment with the patient. He stated the dizziness is gone at this time. I suspect patient may be dehydrated. We will plan to discharge patient home at this time. Patient agrees and understands this plan all questions were addressed. Differential Diagnosis Differential Diagnoses: The differential diagnosis associated with the presentation includes Dizziness, vertigo, lightheadedness, hepatic encephalopathy Lab Data [facility] Lab Attestation statement: I reviewed the patient's lab results. 05/15/25 11:23 05/15/25 11:23 Labs: Lab Results 05/15/25 05/15/25 Range/Units 11:23 14:19 WBC 2.1 L (4.8-10.8) X10*3/uL RBC 3.34 L (4.60-5.80) X10*6/uL Hgb 8.7 L (14.0-18.0) g/dl Hct 26.8 L (42.0-52.0) % MCV 80.2 (80.0-98.0) fL MCH 26.0 L (27.0-33.0) pg MCHC 32.5 (31.0-36.0) g/dl RDW 14.0 (11.0-16.0) % Plt Count 27 L D (160-400) X10*3/uL MPV TNP Immature Gran % (Auto) 0.5 H (0.0-0.4) % Neut % (Auto) 59.2 (45-73) % Lymph % (Auto) 27.7 (20-40) % Hill % (Auto) 9.7 (2-11) % Eos % (Auto) 2.4 (0-4) % Baso % (Auto) 0.5 (0-2) % Lymph # (Auto) 0.6 L (1.2-4.9) X10*3/uL Hill # (Auto) 0.2 (0.1-1.2) X10*3/uL Eos # (Auto) 0.1 (0.0-0.4) X10*3/uL Baso # (Auto) 0.0 (0.0-0.2) X10*3/uL Abs Immat Gran (auto) 0.01 (0.00-0.03) X10*3/uL Absolute Neuts (auto) 1.2 L (2.0-8.3) x10*3/uL Absolute Nucleated RBC 0.000 (0.0-0.012) X10*3/uL Nucleated RBC % (auto) 0.0 (0.0-0.2) /100WBC Smear Tech's Comments VERIFIED PT 16.1 H (10.9-12.4) SEC INR 1.4 H (0.9-1.1) Sodium 141 (135-145) mmol/L Potassium 4.3 (3.3-5.1) mmol/L Chloride 115 H (96-108) mmol/L Carbon Dioxide 23 (22-29) mmol/L Anion Gap 7 L (12-20) BUN 15 (9-16) mg/dL Creatinine 0.75 (0.5-1.4) mg/dL Estim Creat Clear Calc 119.5 Estimated GFR > 60 Random Glucose 83 (60-115) mg/dL Calcium 7.9 L (8.4-10.2) mg/dL Total Bilirubin 1.1 H (0.0-1.0) mg/dL Direct Bilirubin 0.5 (0.0-0.5) mg/dL AST 40 H (5-37) U/L ALT 27 (0-40) U/L Alkaline Phosphatase 118 H (39-117) U/L Ammonia 115 H (13-55) umol/L Troponin I High Sens 34.5 D 33.9 (<3.5-35.0) ng/L B-Natriuretic Peptide 178 H (<100) pg/mL Total Protein 5.9 L (6.5-8.0) g/dL Albumin 2.8 L (3.5-5.0) g/dL Lipase 31 (8-78) U/L Urine Color Yellow Urine Appearance Clear Urine pH 8.0 (5.0-9.0) Ur Specific [employer] [place] 1.010 (1.005-1.025) Urine Protein Negative (Neg-Trace) mg/dL Urine Glucose (UA) Negative (Negative) mg/dL Urine Ketones Negative (Negative) mg/dL Urine Blood Negative (Negative) Urine Nitrite Negative (Negative) Ur Leukocyte Esterase Negative (Negative) Urine RBC 0-2 (0-2) /HPF Urine WBC 0-5 (0-5) /HPF Ur Squamous Epith Cells 0-2 (0-2) /HPF Urine Bacteria None Seen (None Seen) Hyaline Casts 0-2 (0-2) /LPF Independent Interpretation I performed an independent interpretation of an: EKG Discharge Plan Discharge Clinical Impression: Dizziness Patient Disposition: Home, Self-Care Instructions: Dizziness (ED) Prescriptions: No Action carvedilol 3.125 mg tablet 3.125 mg PO BID Qty: 60 1RF (DME) doris Hunterc See Rx Instructions .Route Qty: 1 0RF Rx Instructions: As directed levofloxacin 500 mg tablet 500 mg PO DAILY Qty: 4 0RF lactulose 10 gram/15 mL Solution 40 g PO BID Qty: 1200 0RF Xifaxan 550 mg Tablet 550 mg PO BID Qty: 60 0RF furosemide 40 mg tablet 40 mg PO DAILY amlodipine 5 mg tablet 5 mg PO DAILY Qty: 90 0RF Print Language: [place]
--- NOTE | 2025-05-15 13:42 | ECG_ITS ---
Test Reason : CHEST PAIN Blood Pressure : */* mmHG Vent. Rate : 69 BPM Atrial Rate : 69 BPM P-R Int : 140 ms QRS Dur : 86 ms QT Int : 448 ms P-R-T Axes : 40 18 65 degrees QTcB Int : 480 ms Normal sinus rhythm Prolonged QT Abnormal ECG When compared with ECG of 15-May-2025 11:15, No significant change was found Referred By: Sofiya Yu Electronically Signed By: Slick Hoover
[2025-05-15 14:00] VITALS: BP 138/52; PULSE 65; RESP 14; TEMP 36.8; O2SAT 98
[2025-05-15 14:38] LABS: Appearance Urine Clear; Glucose Urine UA Negative (Negative); PH 8.0 (5.0-9.0); Specific Gravity - Urine 1.010 (1.005-1.025)
[2025-05-15 15:14] LABS: B Type Natriuretic Peptide 178 pg/mL (<100)
[2025-05-15 15:17] LABS: Troponin-I High Sensitivity 33.9 ng/L (<3.5-35.0)
[2025-05-15 16:35] VITALS: BP 148/93; PULSE 63; RESP 16; TEMP 36.3; O2SAT 100
--- NOTE | 2025-05-15 16:35 | PC.NURSE ---
Pt ambulated w/ tech around ED without diff, denies dizziness
[2025-05-15 16:41] VITALS: BP 148/93; PULSE 63; RESP 16; TEMP 36.3; O2SAT 100
== END 2025-05-15 16:44 | disposition home or self-care (01) ==
PROVIDERS: Emergency Provider Student in an Organized Health Care Education/Training Program; PCP Student in an Organized Health Care Education/Training Program
DX: R07.89 Other chest pain (principal); R42 Dizziness and giddiness; R06.02 Shortness of breath; Z79.899 Other long term (current) drug therapy
CPT/HCPCS: 36415; 80048; 80076; 81001; 82140; 83690; 83880; 84484; 85025; 85610; 93005; 99283; 99284

== ENCOUNTER → 2025-05-15 11:15 | Outpatient (BNV) | payer MEDICAID, SELFPAY | PROVIDERS: Emergency Provider Student in an Organized Health Care Education/Training Program; PCP Student in an Organized Health Care Education/Training Program; Visit Provider Internal Medicine Cardiovascular Disease | DX: R07.9 Chest pain, unspecified (principal); R94.31 Abnormal electrocardiogram [ECG] [EKG] | CPT/HCPCS: 93010 ==

== ENCOUNTER 2025-05-16 13:37 | Inpatient (IN) | payer MEDICAID, SELFPAY ==
--- NOTE | ~2025-05-16 | US_ITS ---
CLINICAL HISTORY: ensure TIPS patency- dopplers Ultrasound abdomen limited Comparison: 03/26/2025 Findings: A TIPS is present. The TIPS is patent with hepatopetal flow. The hepatic vein and IVC are patent. Impression: 1. The TIPS is patent. This document has been electronically signed by: Larissa Roth MD on 05/17/2025 13:28:02
--- NOTE | ~2025-05-16 | XR_ITS ---
CLINICAL HISTORY: weakness 1 view chest x-ray Comparison: CR - XR CHEST 1V - 05/02/25 21:42 EDT Findings: No consolidation or effusion. Heart size is normal. No acute fracture. IMPRESSION: 1. No acute findings. This document has been electronically signed by: Larissa Roth MD on 05/16/2025 15:05:32
[2025-05-16 13:43] VITALS: BP 136/52; BP 168/72; PULSE 68; PULSE 76; RESP 18; TEMP 36.4; O2SAT 95; O2SAT 98; BMI 30.9
--- NOTE | 2025-05-16 13:48 | ED.AMS ---
HPI - Altered Mental Status General Chief Complaint: Altered Mental Status Stated Complaint: AMS PER EMS Time Seen by Provider: 05/16/25 13:48 Source: EMS Mode of arrival: EMS Limitations: altered mental status History of Present Illness ED Provider: HPI narrative: This is a 64-year-old male who was seen here yesterday with reports of dizziness, he has a history of hepatic encephalopathy with frequent admissions, yesterday was alert and oriented today he is confused, when he gets confused he does not really follow up instructions and directions and although he does not know where he is currently located and he is vaguely able to remember his name he wishes to leave the hospital. This is a change from his baseline mental status. History of right eye surgery, no reports of trauma via EMS. Coming in from long term. Related Data Home Medications ?Medication ?Instructions ?Recorded ?Confirmed furosemide 40 mg tablet 40 mg PO DAILY 04/21/25 04/21/25 Previous Rx's ?Medication ?Instructions ?Recorded walker #1 ea 02/08/25 carvedilol 3.125 mg tablet 3.125 mg PO BID #60 tabs 03/02/25 amlodipine 5 mg tablet 5 mg PO DAILY #90 tabs 04/21/25 lactulose 10 gram/15 mL oral 40 g (60 mL) PO BID #1,200 mL 05/04/25 solution levofloxacin 500 mg tablet 500 mg PO DAILY #4 tabs 05/04/25 rifaximin 550 mg tablet (Xifaxan) 550 mg PO BID #60 tabs 05/04/25 Allergies Allergy/AdvReac Type Severity Reaction Status Date / Time dicyclomine (From Bentyl) Allergy Unknown Verified 05/16/25 13:48 aspirin AdvReac Severe stomach Verified 05/16/25 13:48 bleeding NSAIDS (Non-Steroidal AdvReac Severe liver Verified 05/16/25 13:48 Anti-Inflamma concerns Review of Systems Constitutional: Constitutional: Reports as per [facility] Past Medical History Medical History (Updated 05/16/25 @ 00:01 by Background Daemon) Pancytopenia Hyperammonemia Pancytopenia Obesity (BMI 30.0-34.9) Cirrhosis of liver Fall Pancytopenia Hepatic encephalopathy Portal vein thrombosis Cirrhosis Splenic vein thrombosis Sepsis Cirrhosis of liver with ascites Abdominal pain Thrombocytopenia Pancytopenia Cirrhosis Hepatitis C virus infection Esophageal varices Pancytopenia Iron deficiency anemia Cirrhosis Hepatitis C HBP (high blood pressure) Surgical History S/P TIPS (transjugular intrahepatic portosystemic shunt) H/O left inguinal hernia repair H/O eye surgery History of esophagogastroduodenoscopy (EGD) H/O colonoscopy Family History Family History Maternal Grandmother Breast CA Uterus cancer Mother Primary lung cancer of unknown cell type Social History Social History Household Members: None Household Members Other:: long term Housing: Homeless Housing Other:: long term Are you a primary group care worker to a significant other at home: No Do you presently have visiting nurse or other home services: No Unable to assess alcohol history related to: Unable to respond Alcohol intake: former Comment: pt refusing alarm's Patient Tobacco Use Status: Tobacco use Unknown Tobacco use type: Cigarette Cigarette Packs Per Day: 1 Cigarettes Per Day: 0.5 Years Smoked: 30 e-Cigarette/Vaping Use: Currently Using Second Hand Smoke Exposure: No Substance Use Type: Crack/Cocaine and Marijuana Advance Directives Date on File: 04/02/24 service: No Current occupational status: retired Physical Exam ED Vital Signs: Vital Signs - 24 hr 05/16/25 13:43 05/16/25 13:53 Temperature 97.5 F 97.5 F Pulse Rate 68 68 Respiratory Rate 18 18 Blood Pressure 136/52 L 136/52 L Pulse Oximetry 98 98 Oxygen Delivery Method Room Air Room Air BMI result Body Mass Index 30.9 Const Other: Gen: ?Overall well-appearing patient HEENT: Loss of right eye, no scleral icterus in the left eye Neck: Supple, no LAD CV: RRR, no obvious murmurs appreciated Resp: ?No wheezing rales rhonchi no stridor moving air well Abd: ?Bowel sounds are present, no tenderness no rebound no rigidity MSK: FROM, strength 5/5 all extremities Skin: Warm, dry, intact, no jaundice Neuro: ?Alert and oriented x1, moving upper and lower extremities symmetrically, no obvious facial asymmetry noted Medical Decision Making Differential Diagnosis Differential Diagnoses: The differential diagnosis associated with the presentation includes (Hepatic encephalopathy, stroke, trauma, hyponatremia, hypoglycemia) Admission/Observation Consideration of admission/observation: Escalation of care including admission/observation considered Consult Healthcare Provider Management of the patient was discussed with: Hospitalist Lab Data MDM Lab Attestation statement: I reviewed the patient's lab results. Labs: Lab Results 05/16/25 Range/Units 13:47 POC Glucose 99 (60-115) mg/dL Independent Interpretation I performed an independent interpretation of an: EKG (68 beats per minute otherwise normal ECG without dysrhythmia, AV warren blocks or ST-T changes to suspect underlying ACS, my independent interpretation) Radiology Impression Discussion of test interpretation with radiology: I have reviewed the radiologist's reading. External Record Review External record reviewed: Prior outpatient labs Prescription Management I considered prescription management with: Antibiotic Chronic Conditions Patient?s care impacted by: Other (Liver cirrhosis) Social Determinants Patient?s care significantly limited by Social Determinants of Health including: Inadequate housing Critical Care Time Critical Care Time Critical Care Time: Yes Total Critical Care Time: 45 Attestation: Time is exclusive of separately billable procedures. Time includes: direct patient care, patient reassessment, coordination of patient care, interpretation of data (laboratory data, pulse oximetry, arterial blood gases and chest xrays), review of patient's medical records, medical consultation and documentation of patient care. Procedures excluded from critical care time: central intravenous line placement and electrocardiography. Discharge Plan Discharge Prescriptions: No Action carvedilol 3.125 mg tablet 3.125 mg PO BID Qty: 60 1RF (ALLIE) doris Misc See Rx Instructions .Route Qty: 1 0RF Rx Instructions: As directed levofloxacin 500 mg tablet 500 mg PO DAILY Qty: 4 0RF lactulose 10 gram/15 mL Solution 40 g PO BID Qty: 1200 0RF Xifaxan 550 mg Tablet 550 mg PO BID Qty: 60 0RF furosemide 40 mg tablet 40 mg PO DAILY amlodipine 5 mg tablet 5 mg PO DAILY Qty: 90 0RF Print Language: Amharic
[2025-05-16 13:51] LABS: Glucose, Whole Blood 99 mg/dL (60-115)
[2025-05-16 13:53] VITALS: BP 136/52; PULSE 68; RESP 18; TEMP 36.4; O2SAT 98
--- NOTE | 2025-05-16 13:57 | PC.NURSE ---
64 M presents to ED with AMS, A+Ox1 to self, [facility] from [facility], altered from baseline. Pt confused, only knows his name, keeps asking to leave. Pt c/o headache but no other complaints. RR even and unlabored, denies CP or SOB.
--- NOTE | 2025-05-16 14:00 | ECG_ITS ---
Test Reason : chest pain Blood Pressure : */* mmHG Vent. Rate : 68 BPM Atrial Rate : 68 BPM P-R Int : 124 ms QRS Dur : 86 ms QT Int : 412 ms P-R-T Axes : 29 20 70 degrees QTcB Int : 438 ms Normal sinus rhythm Normal ECG When compared with ECG of 15-May-2025 14:29, No significant change was found Referred By: Tres Macdonald Electronically Signed By: POP DAVIES MD
[2025-05-16 14:20] LABS: MANUAL DIFF FLAG NO
[2025-05-16] MEDS: diazePAM 10 MG/2 ML CARTRIDGE 2.5 MG IM (14:20)
--- OUTSIDE RECORDS SUMMARY | 2025-05-16 14:20 | XMS_ITS | Clinical Summary ---
Author Organization [facility] Address [address] [facility] [address] [place] [phone] Phone Care Team Providers Care Deicer Element Winder Machine Name Role Phone Leta Soto MD Primary Care Pro vider Allergies Active Allergy Reactions Criticality Noted Date Comments Aspirin 04/20/2025 GI upset and bleeding Dicyclomine 05/26/2023 Ibuprofen 04/20/2025 GI upset Medications No known medications Encounters Date Type Department Care Team Description 04/20/2025 1:15 PM EDT Office Visit [facility] [address] [address] Michela Matt MD Cicatricial ectropion of right [...] Description 05/28/2025 10:00 AM EDT Pre-Admission Testing [facility] Pre Procedure Evaluation Center [address] [place] [phone] Michela Matt MD [address] [place] [id number] [email or web address] 06/11/2025 Procedure Pass [facility] [address] [place] [address] 06/11/2025 12:15 PM EDT Hospital Encounter [facility] [address] [place] [address] Michela Matt MD [address] [place] [phone] [email or web address] 06/11/2025 12:15 PM EDT - 06/11/2025 1:15 PM EDT Surgery [facility] [address] [place] [address] Michela Matt MD [address] [place] [phone] [email or web address] 06/29/2025 2:30 PM EDT Office Visit [address] [place] [address] Michela Matt MD [address] [place] [id number] [email or web address] Scheduled Procedures Name Priority Associated Diagnoses Date/Ti pa LATERAL TARSAL STRIP Ectropion of right upper [...] ACO C3 ACO C3 ACO C3 ACO [facility] C3 ACO Care Teams Deicer Element Winder Machine Relationship Specialty Start Date End Date Leta Soto MD [address] [place] [phone] PCP - General Internal Medicine 01/05/25 Additional Source Comments The information contained in this document represents components of the legal health record. It is not the complete legal health record.[facility]
[2025-05-16 14:22] LABS: Hematocrit 28.8 % (42.0-52.0); Hemoglobin 9.6 g/dl (14.0-18.0); Imm Gran Abs Auto 0.00 X10*3/uL (0.00-0.03); Imm Gran Pct Auto 0.0 % (0.0-0.4); Lymphocytes Absolute Auto 0.8 X10*3/uL (1.2-4.9); Mean Corpuscular HGB Conc 33.3 g/dl (31.0-36.0); Mean Corpuscular Hemoglobin 25.9 pg (27.0-33.0); Mean Corpuscular Volume 77.8 fL (80.0-98.0); NRBC Abs Auto 0.000 X10*3/uL (0.0-0.012); NRBC Pct Auto 0.0 /100WBC (0.0-0.2); Red Blood Count 3.70 X10*6/uL (4.60-5.80); White Blood Count 2.9 X10*3/uL (4.8-10.8)
[2025-05-16 14:23] LABS: Platelet Count 34 X10*3/uL (160-400)
[2025-05-16 14:31] LABS: INTERNATIONAL NORM RATIO 1.4 (0.9-1.1); Prothrombin Time 16.6 SEC (10.9-12.4)
[2025-05-16 14:35] LABS: Alanine Aminotransferase 30 U/L (0-40); Albumin Level 3.1 g/dL (3.5-5.0); Alkaline Phosphatase 126 U/L (39-117); Anion Gap 9 (12-20); Aspartate Amino Transferase 39 U/L (5-37); Blood Urea Nitrogen 14 mg/dL (9-16); Calcium 8.3 mg/dL (8.4-10.2); Carbon Dioxide 20 mmol/L (22-29); Chloride 115 mmol/L (96-108); Creatinine Clr Calc Pharmacy 106.8; Estimated Glomerular Filt Rate > 60; Potassium 4.2 mmol/L (3.3-5.1); Sodium 140 mmol/L (135-145); Total Protein 6.7 g/dL (6.5-8.0)
[2025-05-16 14:42] LABS: Troponin-I High Sensitivity 22.7 ng/L (<3.5-35.0)
[2025-05-16 14:56] LABS: Ammonia 149 umol/L (13-55)
--- NOTE | 2025-05-16 15:38 | PM.IMHP ---
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 Reportedly agitated in ED and was given haloperidol and diazepam. Also given a dose of lactulose. Unclear how compliant he is with his regimen of lactulose and rifaximin though he has frequent admissions to this hospital with hepatic encephalopathy and was most recently discharged on 05/04/25, at which time he was also treated for pneuonia with levofloxacin. He endorses mild headache; denies fall. No hematemesis, hematochezia, or melena. Denies abdominal pain or swelling. Review of Systems Review of Systems: Yes all other systems are reviewed and are negative [facility] [place] Medical History Pancytopenia Hyperammonemia Pancytopenia Obesity (BMI 30.0-34.9) Cirrhosis of liver Fall Pancytopenia Hepatic encephalopathy Portal vein thrombosis Cirrhosis Splenic vein thrombosis Sepsis Cirrhosis of liver with ascites Abdominal pain Thrombocytopenia Pancytopenia Cirrhosis Hepatitis C virus infection Esophageal varices Pancytopenia Iron deficiency anemia Cirrhosis Hepatitis C HBP (high blood pressure) Family History Maternal Grandmother Breast CA Uterus cancer Mother Primary lung cancer of unknown cell type Surgical History S/P TIPS (transjugular intrahepatic portosystemic shunt) H/O left inguinal hernia repair H/O eye surgery History of esophagogastroduodenoscopy (EGD) H/O colonoscopy Social History Household Members: None Household Members Other:: residential Housing: Homeless Housing Other:: residential Are you a primary patient centered care specialist to a significant other at home: No Do you presently have visiting nurse or other home services: No Unable to assess alcohol history related to: Unable to respond Alcohol intake: former Comment: pt refusing alarm's Patient Tobacco Use Status: Tobacco use Unknown Tobacco use type: Cigarette Cigarette Packs Per Day: 1 Cigarettes Per Day: 0.5 Years Smoked: 30 Smoked in Last 30 Days: Yes e-Cigarette/Vaping Use: Currently Using Second Hand Smoke Exposure: No Use of substances other than those prescribed or required for medical reasons: No Substance Use Type: Crack/Cocaine and Marijuana Advance Directives: Yes Advance Directives on File: Yes Advance Directives Date on File: 04/02/24 Do you have a plan to hurt others: No Plan service: No Current occupational status: retired Meds Allergies Allergy/AdvReac Type Severity Reaction Status Date / Time dicyclomine (From Bentyl) Allergy Unknown Verified 05/16/25 13:48 aspirin AdvReac Severe stomach Verified 05/16/25 13:48 bleeding NSAIDS (Non-Steroidal AdvReac Severe liver Verified 05/16/25 13:48 Anti-Inflamma concerns Active Medications: Current Medications Acetaminophen (Acetaminophen 325 Mg Tablet) 650 mg PO Q6H PRN PRN Reason: Pain, Mild 1-3,fever,headache Calcium Carbonate (Calcium Carbonate 750 Mg Tab.Chew) 750 mg PO Q4H PRN PRN Reason: Heartburn Magnesium Hydroxide (Milk Of Magnesia 30 Ml Oral.Susp) 30 ml PO DAILY PRN PRN Reason: Constipation Melatonin (Melatonin 3 Mg Tablet) 6 mg PO BEDTIME PRN PRN Reason: Insomnia Ondansetron HCl (Ondansetron Hcl 4 Mg/2 Ml Vial) 4 mg IVPUSH Q4H PRN PRN Reason: Nausea and Vomiting Sodium Chloride (0.9 % Sodium Chloride Flush 3 Ml Syringe) 3 ml IVFLUSH QSHIFT [facility] Home Medications ?Medication ?Instructions ?Recorded ?Confirmed ?Last Taken ?Type furosemide 40 mg tablet 40 mg PO DAILY 04/21/25 04/21/25 Unknown History Physical Exam Vital Signs and Narrative: Vital Signs: Last Vital Signs Temp 97.5 F 05/16/25 13:53 Pulse 68 05/16/25 13:53 Resp 18 05/16/25 13:53 BP 136/52 L 05/16/25 13:53 Pulse Ox 98 05/16/25 13:53 O2 Del Method Room Air 05/16/25 13:53 BMI result Body Mass Index 30.9 Gen: in no acute distress HEENT: sclera anicteric, moist mucus membranes Neck: supple Lungs: clear to auscultation bilaterally Heart: regular rate and rhythm, no murmurs Abd: soft, non-tender, non-distended Ext: no edema Skin: warm/well-perfused Neuro: alert and oriented to self and place but not date, asterixis present, moves all extremities Psych: restricted affect Results Labs 05/16/25 14:11 05/16/25 14:11 Labs: Laboratory Results - last 24 hr 05/16/25 05/16/25 05/16/25 13:47 14:11 14:15 MCV 77.8 L MCH 25.9 L MCHC 33.3 RDW 14.0 Plt Count 34 L D MPV Not Reportable Immature Gran % (Auto) 0.0 Neut % (Auto) 61.0 Lymph % (Auto) 26.6 [place] % (Auto) 10.7 Eos % (Auto) 1.4 Baso % (Auto) 0.3 Lymph # (Auto) 0.8 L [place] # (Auto) 0.3 Eos # (Auto) 0.0 Baso # (Auto) 0.0 Abs Immat Gran (auto) 0.00 Absolute Neuts (auto) 1.8 L Absolute Nucleated RBC 0.000 Nucleated RBC % (auto) 0.0 PT 16.6 H INR 1.4 H Anion Gap 9 L Estim Creat Clear Calc 106.8 Estimated GFR > 60 POC Glucose 99 Random Glucose 94 Lactic Acid 0.9 Calcium 8.3 L Total Bilirubin 1.6 H AST 39 H ALT 30 Alkaline Phosphatase 126 H Ammonia Total Protein 6.7 Albumin 3.1 L 05/16/25 14:41 MCV MCH MCHC RDW Plt Count MPV Immature Gran % (Auto) Neut % (Auto) Lymph % (Auto) [place] % (Auto) Eos % (Auto) Baso % (Auto) Lymph # (Auto) [place] # (Auto) Eos # (Auto) Baso # (Auto) Abs Immat Gran (auto) Absolute Neuts (auto) Absolute Nucleated RBC Nucleated RBC % (auto) PT INR Anion Gap Estim Creat Clear Calc Estimated GFR POC Glucose Random Glucose Lactic Acid Calcium Total Bilirubin AST ALT Alkaline Phosphatase Ammonia 149 H Total Protein Albumin Assessment and Plan (1) Hepatic encephalopathy: Status: Acute Plan 64yo M with 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 abd doppler to ensure TIPS patency. - he has had numerous head CTs recently with no intracranial findings and in the absence of signs or history of head trauma will not image at this point unless his mental status worsens - check Utox HTN - amlodipine, carvedilol varices - carvedilol thrombocytopenia - plts at baseline; monitor; avoid heparin VTE ppx - SCDs dispo - TBD code status - full I anticipate that the patient will stay at least 2 midnights as an inpatient in the hospital due to the above reasons. It is neither reasonable nor safe to care for them in a less acute setting. Quality Stroke Does the patient have a stroke diagnosis?: No VTE Prior VTE?: No VTE Risk Level:: Medical - moderate - high VTE Device Contraindication: N/A - Device Ordered VTE Drug Contraindication: N/A - Med Ordered
[2025-05-16 15:57] VITALS: PULSE 66; RESP 18; O2SAT 100
--- NOTE | 2025-05-16 16:26 | PHA.MEDREC ---
Pharmacy Consult ? Medication Reconciliation Pharmacy has completed the medication reconciliation. Patient was here last week, utilized pharmacy claims and discharge packet to confirm.
[2025-05-16 16:28] LABS: Cannabinoid Screen Urine Not Detected (Not Detect)
--- NOTE | 2025-05-16 16:34 | PC.NURSE ---
per okay to allow patient eat as long as he is alert , diet order entered
[2025-05-16 17:06] VITALS: BP 137/56; PULSE 64; RESP 13; O2SAT 100
[2025-05-16 18:23] VITALS: BP 180/76; PULSE 77; RESP 22; TEMP 36.7; O2SAT 100
[2025-05-16 19:54] VITALS: BP 141/54; PULSE 66; RESP 14; TEMP 36.8; O2SAT 99
[2025-05-17 01:10] VITALS: BP 132/50; PULSE 67; RESP 15; TEMP 36.9; O2SAT 97
[2025-05-17] MEDS: 0.9 % Sodium Chloride Flush 3 ML SYRINGE IVFLUSH (01:14)
[2025-05-17 01:28] VITALS: BMI 31.2
[2025-05-17 01:42] VITALS: BP 142/69; PULSE 67; RESP 18; TEMP 36.6; O2SAT 99
[2025-05-17 03:29] VITALS: BP 132/53; PULSE 61; RESP 16; TEMP 37.1; O2SAT 98
[2025-05-17 08:00] VITALS: BP 131/59; PULSE 78; RESP 20; TEMP 36.7; O2SAT 100
[2025-05-17 08:49] LABS: MANUAL DIFF FLAG NO
[2025-05-17 09:18] LABS: Alanine Aminotransferase 32 U/L (0-40); Albumin Level 3.4 g/dL (3.5-5.0); Alkaline Phosphatase 136 U/L (39-117); Anion Gap 11 (12-20); Aspartate Amino Transferase 43 U/L (5-37); Blood Urea Nitrogen 13 mg/dL (9-16); Calcium 8.5 mg/dL (8.4-10.2); Carbon Dioxide 22 mmol/L (22-29); Chloride 114 mmol/L (96-108); Creatinine Clr Calc Pharmacy 105.9; Estimated Glomerular Filt Rate > 60; Magnesium 2.0 mg/dL (1.6-2.6); Potassium 4.6 mmol/L (3.3-5.1); Sodium 142 mmol/L (135-145); Total Protein 7.1 g/dL (6.5-8.0)
[2025-05-17 09:20] LABS: Hematocrit 32.4 % (42.0-52.0); Hemoglobin 10.5 g/dl (14.0-18.0); Imm Gran Abs Auto 0.00 X10*3/uL (0.00-0.03); Imm Gran Pct Auto 0.0 % (0.0-0.4); Lymphocytes Absolute Auto 1.0 X10*3/uL (1.2-4.9); Mean Corpuscular HGB Conc 32.4 g/dl (31.0-36.0); Mean Corpuscular Hemoglobin 26.0 pg (27.0-33.0); Mean Corpuscular Volume 80.2 fL (80.0-98.0); NRBC Abs Auto 0.000 X10*3/uL (0.0-0.012); NRBC Pct Auto 0.0 /100WBC (0.0-0.2); Red Blood Count 4.04 X10*6/uL (4.60-5.80); White Blood Count 3.1 X10*3/uL (4.8-10.8)
[2025-05-17 09:22] LABS: Platelet Count 37 X10*3/uL (160-400)
[2025-05-17 11:10] VITALS: BP 121/53; PULSE 58; RESP 18; TEMP 36.4; O2SAT 100
--- NOTE | 2025-05-17 11:14 | P.DS_ITS ---
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 Reportedly agitated in ED and was given haloperidol and diazepam. Also given a dose of lactulose. Unclear how compliant he is with his regimen of lactulose and rifaximin though he has frequent admissions to this hospital with hepatic encephalopathy and was most recently discharged on 05/04/25, at which time he was also treated for pneuonia with levofloxacin. He endorses mild headache; denies fall. No hematemesis, hematochezia, or melena. Denies abdominal pain or swelling.' He was admitted to the telemetry unit and mental status rapidly normalized with giving lactulose and rifaximin. The importance of compliance with this regimen was counseled. Note that ammonia levels are unreliable in a patient with TIPS. TIPS patent on abdominal duplex uS. He was noted to have NSVT on telemetry. Cardiology consulted and did not recommend any further workup; did recommend increasing carvedilol dose from 3.125 to 6.25 mg bid. He will follow up with his primary care doctor and establish GI care as previously recomended. Time Attestation Discharge Coordination Time (in mins): 45 Quality: Safe Use of Opioids Does Pt have an Active Cancer Diagnosis on the Problem List?: No Quality: Stroke Does the patient have a stroke diagnosis?: No Physical Exam Vital Signs: Vital Signs: Last Vital Signs Temp 98.0 F 05/17/25 08:00 Pulse 78 05/17/25 08:00 Resp 20 05/17/25 08:00 BP 131/59 L 05/17/25 08:00 Pulse Ox 100 05/17/25 08:00 O2 Del Method Room Air 05/17/25 08:00 BMI result Body Mass Index 31.2 Gen: in no acute distress HEENT: sclera anicteric, moist mucus membranes Neck: supple Lungs: clear to auscultation bilaterally Heart: regular rate and rhythm, no murmurs Abd: soft, non-tender, non-distended Ext: no edema Skin: warm/well-perfused Neuro: alert and oriented x3, no asterixis, ambulatory Psych: appropriate affect DS: Data Data Completed and Pending Completed studies during hospitalization [Text1]: Laboratory Results WBC 3.1 X10*3/uL (4.8-10.8) L 05/17/25 08:35 RBC 4.04 X10*6/uL (4.60-5.80) L 05/17/25 08:35 Hgb 10.5 g/dl (14.0-18.0) L 05/17/25 08:35 Hct 32.4 % (42.0-52.0) L 05/17/25 08:35 MCV 80.2 fL (80.0-98.0) 05/17/25 08:35 MCH 26.0 pg (27.0-33.0) L 05/17/25 08:35 MCHC 32.4 g/dl (31.0-36.0) 05/17/25 08:35 RDW 14.0 % (11.0-16.0) 05/17/25 08:35 Plt Count 37 X10*3/uL (160-400) L 05/17/25 08:35 MPV Not Reportable 05/17/25 08:35 Immature Gran % (Auto) 0.0 % (0.0-0.4) 05/17/25 08:35 Neut % (Auto) 56.9 % (45-73) 05/17/25 08:35 Lymph % (Auto) 30.8 % (20-40) 05/17/25 08:35 [place] % (Auto) 9.4 % (2-11) 05/17/25 08:35 Eos % (Auto) 2.3 % (0-4) 05/17/25 08:35 Baso % (Auto) 0.6 % (0-2) 05/17/25 08:35 Lymph # (Auto) 1.0 X10*3/uL (1.2-4.9) L 05/17/25 08:35 [place] # (Auto) 0.3 X10*3/uL (0.1-1.2) 05/17/25 08:35 Eos # (Auto) 0.1 X10*3/uL (0.0-0.4) 05/17/25 08:35 Baso # (Auto) 0.0 X10*3/uL (0.0-0.2) 05/17/25 08:35 Abs Immat Gran (auto) 0.00 X10*3/uL (0.00-0.03) 05/17/25 08:35 Absolute Neuts (auto) 1.8 x10*3/uL (2.0-8.3) L 05/17/25 08:35 Absolute Nucleated RBC 0.000 X10*3/uL (0.0-0.012) 05/17/25 08:35 Nucleated RBC % (auto) 0.0 /100WBC (0.0-0.2) 05/17/25 08:35 PT 16.6 SEC (10.9-12.4) H 05/16/25 14:15 INR 1.4 (0.9-1.1) H 05/16/25 14:15 Sodium 142 mmol/L (135-145) 05/17/25 08:35 Potassium 4.6 mmol/L (3.3-5.1) 05/17/25 08:35 Chloride 114 mmol/L (96-108) H 05/17/25 08:35 Carbon Dioxide 22 mmol/L (22-29) 05/17/25 08:35 Anion Gap 11 (12-20) L 05/17/25 08:35 BUN 13 mg/dL (9-16) 05/17/25 08:35 Creatinine 0.79 mg/dL (0.5-1.4) 05/17/25 08:35 Estim Creat Clear Calc 105.9 05/17/25 08:35 Estimated GFR > 60 05/17/25 08:35 POC Glucose 99 mg/dL (60-115) 05/16/25 13:47 Random Glucose 95 mg/dL (60-115) 05/17/25 08:35 Lactic Acid 0.9 mmol/L (0.5-2.0) 05/16/25 14:15 Calcium 8.5 mg/dL (8.4-10.2) 05/17/25 08:35 Magnesium 2.0 mg/dL (1.6-2.6) 05/17/25 08:35 Total Bilirubin 1.7 mg/dL (0.0-1.0) H 05/17/25 08:35 AST 43 U/L (5-37) H 05/17/25 08:35 ALT 32 U/L (0-40) 05/17/25 08:35 Alkaline Phosphatase 136 U/L (39-117) H 05/17/25 08:35 Ammonia 149 umol/L (13-55) H 05/16/25 14:41 Troponin I High Sens 22.7 ng/L (<3.5-35.0) 05/16/25 14:11 Total Protein 7.1 g/dL (6.5-8.0) 05/17/25 08:35 Albumin 3.4 g/dL (3.5-5.0) L 05/17/25 08:35 Urine Opiates Screen Not Detected (Not Detect) 05/16/25 15:57 Ur Buprenorphine Scrn Not Detected ng/mL (Not Detect) 05/16/25 15:57 Ur Oxycodone Screen Not Detected ng/mL (Not Detect) 05/16/25 15:57 Urine Methadone Screen Not Detected ng/mL (Not Detect) 05/16/25 15:57 Urine Fentanyl Screen Not Detected (Not Detect) 05/16/25 15:57 Ur Barbiturates Screen Not Detected (Not Detect) 05/16/25 15:57 Ur Phencyclidine Scrn Not Detected (Not Detect) 05/16/25 15:57 Ur Amphetamines Screen Not Detected (Not Detect) 05/16/25 15:57 U Benzodiazepines Scrn Not Detected (Not Detect) 05/16/25 15:57 Urine Cocaine Screen Not Detected (Not Detect) 05/16/25 15:57 U Marijuana (THC) Screen Not Detected (Not Detect) 05/16/25 15:57 Ethyl Alcohol < 10 mg/dL 05/16/25 15:56 Discharge Plan Discharge Anticipated Discharge Date/Time: 05/17/25 11:06 Patient Disposition: [facility] Discharge Diagnosis: hepatic encephalopathy nonsustained ventricular tachycardia Referrals: [facility] [Provider Group, Gastroenterology] - 2 Weeks Leta Soto MD [Physician, Internal Medicine] - 1 Week [facility] [Primary Care Provider, Medical] - 1 Week Discharge Medications: New carvedilol 6.25 mg Tablet 6.25 mg PO BID Qty: 60 0RF Protocol: Hold for SBP/HR < HOLD for SBP < : 90 HOLD for HR < : 60 Rx Instructions: replaces prior dose of 3.125 mg bid Continued (DME[place] [facility] [place]ructions .Route Qty: 1 0RF Rx Instructions: As directed lactulose 10 gram/15 mL Solution 40 g PO BID Qty: 1200 0RF Xifaxan 550 mg Tablet 550 mg PO BID Qty: 60 0RF furosemide 40 mg tablet 40 mg PO DAILY amlodipine 5 mg tablet 5 mg PO DAILY Qty: 90 0RF Discontinued carvedilol 3.125 mg tablet 3.125 mg PO BID Qty: 60 1RF Discharge Orders: Discharge Order (Routine); Ordered 05/17/25 Ordered By: Getachew Vega Diet: Low salt diet Stand Alone Forms: Patient Portal Discharge page Print Language: [place] Care Plan Goals: liver health Health Concerns: hepatic encephalopathy nonsustained ventricular tachycardia Plan of Treatment: continue rifaximin 550 mg twice daily [refill sent] continue lactulose 60 mL twice daily [refill sent] increase carvedilol from 3.125 mg to 6.25 mg twice daily Please follow up with your primary care doctor within 1 week. Return to the hospital if you experience recurrent or worsening symptoms. establish GI care with [facility] in 1-2 weeks Assessment: See Discharge Summary.
--- NOTE | 2025-05-17 11:24 | P.CONCA_ITS ---
History of Present Illness History of Present Illness Date of Service: 05/17/25 Chief complaint: hepatic encephalopathy Narrative: [age] year gentleman with hepatic encephalopathy who had a short run of nonsustained VT. He has been asymptomatic. Electrolytes are stable. He is on carvedilol 6.25 mg twice a day. Mental status has improved and he wants to go home. [facility] Past Medical History Medical History (Updated 05/17/25 @ 11:15 by Getachew Vega MD) Cirrhosis of liver Pancytopenia Hyperammonemia Pancytopenia Obesity (BMI 30.0-34.9) Fall Pancytopenia Hepatic encephalopathy Portal vein thrombosis Cirrhosis Splenic vein thrombosis Sepsis Cirrhosis of liver with ascites Abdominal pain Thrombocytopenia Pancytopenia Cirrhosis Hepatitis C virus infection Esophageal varices Pancytopenia Iron deficiency anemia Cirrhosis Hepatitis C HBP (high blood pressure) Family History Family History Maternal Grandmother Breast CA Uterus cancer Mother Primary lung cancer of unknown cell type Surgical History Surgical History S/P TIPS (transjugular intrahepatic portosystemic shunt) H/O left inguinal hernia repair H/O eye surgery History of esophagogastroduodenoscopy (EGD) H/O colonoscopy Social History Social History Household Members: Other Household Members Other:: pt comes from a correction Housing: Other Housing Other:: correction Are you a primary child care lead teacher to a significant other at home: No Do you presently have visiting nurse or other home services: No Unable to assess alcohol history related to: Unable to respond Alcohol intake: former Comment: pt refusing alarm's Patient Tobacco Use Status: Tobacco use Unknown Tobacco use type: Cigarette Cigarette Packs Per Day: 1 Cigarettes Per Day: 0.5 Years Smoked: 30 Smoked in Last 30 Days: Yes e-Cigarette/Vaping Use: Currently Using Second Hand Smoke Exposure: No Use of substances other than those prescribed or required for medical reasons: No Substance Use Type: Crack/Cocaine and Marijuana Currently Displaying Signs/Symptoms of Drug Intoxication Withdrawal: No Have you been hit, kicked, punched, or otherwise hurt by someone within the past year? If so, by whom?: No Do you feel safe in your current relationship?: Yes Is there a partner from a previous relationship who is making you feel unsafe now?: No Are you made to feel afraid or neglected: No Advance Directives: Yes Advance Directives on File: Yes Advance Directives Date on File: 04/02/24 Do you have a plan to hurt others: No Plan Recently lost weight without trying: Unsure Nutrition Risks: No Nutritional Risk service: No Current occupational status: retired Meds Allergies Allergy/AdvReac Type Severity Reaction Status Date / Time dicyclomine (From Bentyl) Allergy Unknown Verified 05/16/25 13:48 aspirin AdvReac Severe stomach Verified 05/16/25 13:48 bleeding NSAIDS (Non-Steroidal AdvReac Severe liver Verified 05/16/25 13:48 Anti-Inflamma concerns Active Medications: Current Medications Acetaminophen (Acetaminophen 325 Mg Tablet) 650 mg PO Q6H PRN PRN Reason: Pain, Mild 1-3,fever,headache Last Admin: 05/17/25 10:38 Dose: 650 mg Amlodipine Besylate (Amlodipine Besylate 5 Mg Tablet) 5 mg PO DAILY [facility]; Protocol Last Admin: 05/17/25 08:32 Dose: 5 mg Calcium Carbonate (Calcium Carbonate 750 Mg Tab.Chew) 750 mg PO Q4H PRN PRN Reason: Heartburn Carvedilol (Carvedilol 6.25 Mg Tablet) 6.25 mg PO BID [facility]; Protocol Furosemide (Furosemide 40 Mg Tablet) 40 mg PO DAILY [facility]; Protocol Last Admin: 05/17/25 08:32 Dose: 40 mg Lactulose (Lactulose 20 Gm/30 Ml Solution) 30 gm PO TID [facility] Last Admin: 05/17/25 08:32 Dose: 30 gm Magnesium Hydroxide (Milk Of Magnesia 30 Ml Oral.Susp) 30 ml PO DAILY PRN PRN Reason: Constipation Melatonin (Melatonin 3 Mg Tablet) 6 mg PO BEDTIME PRN PRN Reason: Insomnia Ondansetron HCl (Ondansetron Hcl 4 Mg/2 Ml Vial) 4 mg IVPUSH Q4H PRN PRN Reason: Nausea and Vomiting Rifaximin (Rifaximin 550 Mg Tablet) 550 mg PO BID [facility] Last Admin: 05/17/25 08:32 Dose: 550 mg Sodium Chloride (0.9 % Sodium Chloride Flush 3 Ml Syringe) 3 ml IVFLUSH QSHIFT [facility] Last Admin: 05/17/25 07:33 Dose: Not Given Home Medications ?Medication ?Instructions ?Recorded ?Confirmed ?Last Taken ?Type furosemide 40 mg tablet 40 mg PO DAILY 04/21/25 0903/04 Unknown History Physical Exam 2 Vital Signs: Vital Signs: Last Vital Signs Temp 97.6 F 05/17/25 11:10 Pulse 58 05/17/25 11:10 Resp 18 05/17/25 11:10 BP 121/53 L 05/17/25 11:10 Pulse Ox 100 05/17/25 11:10 O2 Del Method Room Air 05/17/25 11:10 BMI result Body Mass Index 31.2 GENERAL APPEARANCE: in no acute distress, pleasant. NECK: no carotid bruit, no jugular venous distention. SKIN: no suspicious lesions, warm and dry. HEART: no murmurs, regular rate and rhythm. LUNGS: clear to auscultation bilaterally. ABDOMEN: soft, nontender. EXTREMITIES: no edema. PERIPHERAL PULSES: equal. NEUROLOGIC: Blind right eye., AAO X 3 Objective Labs and Meds 05/17/25 08:35 05/17/25 08:35 Lab results: Laboratory Results - last 24 hr 05/16/25 05/16/25 05/16/25 13:47 14:11 14:15 WBC 2.9 L RBC 3.70 L Hgb 9.6 L Hct 28.8 L MCV 77.8 L MCH 25.9 L MCHC 33.3 RDW 14.0 Plt Count 34 L D MPV Not Reportable Immature Gran % (Auto) 0.0 Neut % (Auto) 61.0 Lymph % (Auto) 26.6 Piatt % (Auto) 10.7 Eos % (Auto) 1.4 Baso % (Auto) 0.3 Lymph # (Auto) 0.8 L Piatt # (Auto) 0.3 Eos # (Auto) 0.0 Baso # (Auto) 0.0 Abs Immat Gran (auto) 0.00 Absolute Neuts (auto) 1.8 L Absolute Nucleated RBC 0.000 Nucleated RBC % (auto) 0.0 PT 16.6 H INR 1.4 H Sodium 140 Potassium 4.2 Chloride 115 H Carbon Dioxide 20 L Anion Gap 9 L BUN 14 Creatinine 0.78 Estim Creat Clear Calc 106.8 Estimated GFR > 60 POC Glucose 99 Random Glucose 94 Lactic Acid 0.9 Calcium 8.3 L Magnesium Total Bilirubin 1.6 H AST 39 H ALT 30 Alkaline Phosphatase 126 H Ammonia Troponin I High Sens 22.7 Total Protein 6.7 Albumin 3.1 L Urine Opiates Screen Ur Buprenorphine Scrn Ur Oxycodone Screen Urine Methadone Screen Urine Fentanyl Screen Ur Barbiturates Screen Ur Phencyclidine Scrn Ur Amphetamines Screen U Benzodiazepines Scrn Urine Cocaine Screen U Marijuana (THC) Screen Ethyl Alcohol 05/16/25 05/16/25 05/16/25 14:41 15:53 15:56 WBC RBC Hgb Hct MCV MCH MCHC RDW Plt Count MPV Immature Gran % (Auto) Neut % (Auto) Lymph % (Auto) Piatt % (Auto) Eos % (Auto) Baso % (Auto) Lymph # (Auto) Piatt # (Auto) Eos # (Auto) Baso # (Auto) Abs Immat Gran (auto) Absolute Neuts (auto) Absolute Nucleated RBC Nucleated RBC % (auto) PT INR Sodium Potassium Chloride Carbon Dioxide Anion Gap BUN Creatinine Estim Creat Clear Calc Estimated GFR POC Glucose Random Glucose Lactic Acid Calcium Magnesium Total Bilirubin AST ALT Alkaline Phosphatase Ammonia 149 H Troponin I High Sens Total Protein Albumin Urine Opiates Screen Cancelled Ur Buprenorphine Scrn Cancelled Ur Oxycodone Screen Cancelled Urine Methadone Screen Cancelled Urine Fentanyl Screen Cancelled Ur Barbiturates Screen Cancelled Ur Phencyclidine Scrn Cancelled Ur Amphetamines Screen Cancelled U Benzodiazepines Scrn Cancelled Urine Cocaine Screen Cancelled U Marijuana (THC) Screen Cancelled Ethyl Alcohol < 10 05/16/25 05/17/25 15:57 08:35 WBC 3.1 L RBC 4.04 L Hgb 10.5 L Hct 32.4 L MCV 80.2 MCH 26.0 L MCHC 32.4 RDW 14.0 Plt Count 37 L MPV Not Reportable Immature Gran % (Auto) 0.0 Neut % (Auto) 56.9 Lymph % (Auto) 30.8 Piatt % (Auto) 9.4 Eos % (Auto) 2.3 Baso % (Auto) 0.6 Lymph # (Auto) 1.0 L Piatt # (Auto) 0.3 Eos # (Auto) 0.1 Baso # (Auto) 0.0 Abs Immat Gran (auto) 0.00 Absolute Neuts (auto) 1.8 L Absolute Nucleated RBC 0.000 Nucleated RBC % (auto) 0.0 PT INR Sodium 142 Potassium 4.6 Chloride 114 H Carbon Dioxide 22 Anion Gap 11 L BUN 13 Creatinine 0.79 Estim Creat Clear Calc 105.9 Estimated GFR > 60 POC Glucose Random Glucose 95 Lactic Acid Calcium 8.5 Magnesium 2.0 Total Bilirubin 1.7 H AST 43 H ALT 32 Alkaline Phosphatase 136 H Ammonia Troponin I High Sens Total Protein 7.1 Albumin 3.4 L Urine Opiates Screen Not Detected Ur Buprenorphine Scrn Not Detected Ur Oxycodone Screen Not Detected Urine Methadone Screen Not Detected Urine Fentanyl Screen Not Detected Ur Barbiturates Screen Not Detected Ur Phencyclidine Scrn Not Detected Ur Amphetamines Screen Not Detected U Benzodiazepines Scrn Not Detected Urine Cocaine Screen Not Detected U Marijuana (THC) Screen Not Detected Ethyl Alcohol Assessment and Plan (1) NSVT (nonsustained ventricular tachycardia): Status: Acute Plan Short run of nonsustained VT. Asymptomatic. Titrate carvedilol if blood pressure allows. Electrolytes are stable. If any concerns for hypokalemia then add spironolactone. Thank you for allowing me to participate in the care of your patient. Please feel free to contact me if you have any questions. Procedures Date of Service Date of Service: 05/17/25
--- NOTE | 2025-05-17 11:28 | MHC.CM.PN ---
Addendum entered by Tanya Barnett RN 05/17/25 11:33: Correction - patient is not medically cleared at this time. CM will continue to follow. Original Note: CM assessment completed w/ dye house hand assistance. Patient lives in a [facility] long-term/hotel. Ambulates w/ a cane. Staff assists w/ socks/shoes PRN. Reports he goes to a day program [facility]. PCP Leta Dick MD HCP on file and verified. DP: Medically cleared for dc home self care via lyft.
[2025-05-19 15:04] LABS: Hepatitis B Viral DNA Qn - cp NOT DETECTED Log IU/mL (NOT DETECTED); Hepatitis B Viral DNA Qn-IU/mL NOT DETECTED (NOT DETECTED)
== END 2025-05-17 14:42 | disposition home or self-care (01) ==
LOC: HO.ED 14:18 → HO.EDOVER 16:01 → HO.IMC 05-17 00:06
PROVIDERS: Admitting Provider Family Medicine; Emergency Provider Emergency Medicine; PCP Student in an Organized Health Care Education/Training Program; Visit Provider Family Medicine
DX: K76.82 Hepatic encephalopathy (principal); D69.6 Thrombocytopenia, unspecified; I47.20 Ventricular tachycardia, unspecified; F17.210 Nicotine dependence, cigarettes, uncomplicated; I10 Essential (primary) hypertension; K74.69 Other cirrhosis of liver; Z59.01 Sheltered homelessness; Z71.6 Tobacco abuse counseling; Z86.19 Personal history of other infectious and parasitic diseases; Z79.899 Other long term (current) drug therapy
CPT/HCPCS: 36415; 71045; 76705; 80053; 80307; 82140; 82947; 83605; 83735; 84484; 85025; 85610; 87517; 93005; 99285; J1630; J3360

== ENCOUNTER → 2025-05-16 14:06 | Outpatient (BNV) | payer MEDICAID, SELFPAY | PROVIDERS: Admitting Provider Family Medicine; Emergency Provider Emergency Medicine; Visit Provider Radiology Diagnostic Radiology | DX: R53.1 Weakness (principal) | CPT/HCPCS: 71045 ==

== ENCOUNTER → 2025-05-16 14:17 | Outpatient (BNV) | payer MEDICAID, SELFPAY | PROVIDERS: Emergency Provider Emergency Medicine; Visit Provider Family Medicine | DX: K76.82 Hepatic encephalopathy (principal); I47.29 Other ventricular tachycardia; K74.60 Unspecified cirrhosis of liver | CPT/HCPCS: 99239 ==

== ENCOUNTER 2025-05-16 15:18 | Outpatient (BNV) | payer MEDICAID, SELFPAY | END 2025-05-17 11:18 | PROVIDERS: Admitting Provider Family Medicine; Emergency Provider Emergency Medicine; Visit Provider Radiology Diagnostic Radiology | DX: Z04.89 Encounter for examination and observation for other specified reasons (principal); Z96.89 Presence of other specified functional implants | CPT/HCPCS: 76705 ==

== ENCOUNTER → 2025-05-16 15:18 | Outpatient (BNV) | payer MEDICAID, SELFPAY | PROVIDERS: Admitting Provider Family Medicine; Emergency Provider Emergency Medicine; Visit Provider Internal Medicine Cardiovascular Disease | DX: I47.29 Other ventricular tachycardia (principal) | CPT/HCPCS: 99222 ==

== ENCOUNTER 2025-05-21 08:31 | Day surgery (SDC) | payer MEDICAID, SELFPAY ==
--- OUTSIDE RECORDS SUMMARY | 2025-05-19 15:06 | XMS_ITS | Clinical Summary ---
Author Organization [facility] Address [address] [place] [phone] Phone Care Team Providers Care Project Archivist Name Role Phone Leta Soto MD Primary Care Pro vider Allergies Active Allergy Reactions Criticality Noted Date Comments Aspirin 04/20/2025 GI upset and bleeding Dicyclomine 05/26/2023 Ibuprofen 04/20/2025 GI upset Medications No known medications Encounters Date Type Department Care Team Description 04/20/2025 1:15 PM EDT Office Visit [facility] [address] [address] Michela Matt MD Cicatricial ectropion of right [...] Description 05/28/2025 10:00 AM EDT Pre-Admission Testing [facility] Pre Procedure Evaluation Center [address] [place] [address] Michela Matt MD [address] [place] [phone] [email or web address] 06/11/2025 Procedure Pass [facility] [address] [place] [address] 06/11/2025 12:15 PM EDT Hospital Encounter [facility] [address] [place] [address] Michela Matt MD [address] [place] [phone] [email or web address] 06/11/2025 12:15 PM EDT - 06/11/2025 1:15 PM EDT Surgery [facility] [address] [place] [address] Michela Matt MD [address] [place] [phone] [email or web address] 06/29/2025 2:30 PM EDT Office Visit [address] [place] [address] Michela Matt MD [address] [place] [phone] [email or web address] Scheduled Procedures Name Priority Associated Diagnoses Date/Ti pr LATERAL TARSAL STRIP Ectropion of right upper [...] 12/03/2011 ZOSTER VACCINES (1 of 2) 12/03/2011 INFLUENZA VACCINE (#1) 2025 COVID-19 VACCINE (1 - 2023-2 5 season) 2025 LIPID PANEL 04/06/2028 04/06/2023 Adult Td,Tdap Booster [...] [facility] [place] [phone] Care Teams Project Archivist Relationship Specialty Start Date End Date Leta Soto MD [address] [place] [phone] PCP - General Internal Medicine 01/05/25 Additional Source Comments The information contained in this document represents components of the legal health record. It is not the complete legal health record.[facility]
--- OUTSIDE RECORDS SUMMARY | 2025-05-19 15:06 | XMS_ITS | Encounter Summary ---
Author Organization [employer] Address [address] [facility] 7t [place] [address] Care Team Providers Care Engraver Jewelry Name Role Phone Leta Soto MD Primary Care Pro vider Yajaira Antonio Unavailable Encounter Details Date Type Department Care Team (Late st Contact Info) Description 12/17/2023 Orders Only [facility] [address] [place] [address] Tatyana Mosquera FNP [address] [place] [address] Social History Tobacco Use Types Packs/Day Years [...] 9:45 AM EDT Office Visit [facility]INE [address] [place] [address] Leta Soto MD [address] [place] [phone] documented as of this encounter Goals Goal Patient Goal Type Associated Problems Recent Progress Patient-Stated? Author Blood Pressure < 140/90 Blood Pressure 146/72(2024 9:16 AM EDT) No Loan Talbot Record your blood pressure once per day Blood Pressure No Loan aTlbot documented as of this encounter Visit Diagnoses Not on filedocumented in this encounter Additional Health Concerns Assessment Noted Time PHQ-9 Depression Total Score: 18 023 11:23 AM EDT documented as of this encounter Care Teams Engraver Jewelry Relationship Specialty Start Date End Date Leta Soto MD [address] [place] [phone] PCP - General Internal Medicine 04/11/23 Yajaira Antonio [address] 3rd [place] [address] Gastroenterology 09/04/24 [facility] Home Health 01/28/25 documented as of this encounter
--- OUTSIDE RECORDS SUMMARY | 2025-05-19 15:06 | XMS_ITS ---
Author Organization [employer] Address [address] [facility] 7t [place] [address] Care Team Providers Care Division Sergeant Name Role Phone Leta Soto MD Primary Care Pro vider Yajaira Antonio Unavailable [facility] Status:Outreach In Progress (Enrolling) Start date:11/27/2024 Enrollment reason:Referred by provider Overview PCP Referral- 63-year-old male with HCV cirrhosis and multiple hospitalizations for hepatic encephalopathy with ongoing homelessness, poor health literacy. Needs support managing specialist appointments. Please outreach for enrollment. Case Team Name Relationship Phone Chata Puente(Responsible Staff) [phone] Continued Care and Services Coordination
--- OUTSIDE RECORDS SUMMARY | 2025-05-19 15:06 | XMS_ITS ---
Author Organization [employer] Address [address] [facility] 7t [place] [address] Care Team Providers Care Periodontal Assistant Name Role Phone Leta Soto MD Primary [...] Phone Stanley Mckeon RN(Responsible Staff) Registered Nurse [phone] Continued Care and Services Coordination
--- OUTSIDE RECORDS SUMMARY | 2025-05-19 15:06 | XMS_ITS | Encounter Summary ---
Author Organization [employer] Address [address] [facility] 7t [place] [address] Care Team Providers Care Feeder Operator Automatic Name Role Phone Leta Soto MD Primary Care Pro vider Yajaira Antonio Unavailable Encounter Details Date Type Department Care Team (Late st Contact Info) Description 04/21/2025 Orders Only [facility] [address] [place] [address] Imelda Pfeiffer, CHANDU [address] [place] [address] Healthcare maintenance Social History Tobacco Use Types [...] [facility] [address] [place] [address] [phone] Leta Soto MD [address] [place], [place] [phone] Scheduled Orders Name Type Priority Associated Diagnoses [...] Load <15 NOT DETECTED NOT DETECTED IU/mL [facility] HCV Log PCR <1.18 NOT DETECTED NOT DETECTED Log IU/mL [facility] Comment:For additional infor tash, please refer tohttp://education.[employer]/faq/BAK61d8(This link is being provided for informational/educational purposes only.)THIS TEST WAS PERFORMED AT:[email or web address] [place] [id number] STRICKLAND MD 04/21/2025 10:4 3 AM EDT 04/22/2025 8:54 AM EDT us Leta Dick MD LAB BLOOD ORDERAB LES Final Result [facility] [address] [place] [phone] * HIV-1 RNA, Quantitative, Real-Time PCR (04/21/2025 10:43 AM EDT) HIV RNA PCR Qn Copies NOT DETECTED NOT DETECTED copies/mL [facility] HIV RNA PCR Qn Log Copies NOT DETECTED NOT DETECTED [facility] Comment:Result Units: Log co pies/mLThis test was performed using Real-Time Polymerase ChainReaction.Reportable Range: 20 copies/mL to 10,000,000 copies/mL(1.30 log copies/mL to 7.00 log copies/mL).THIS TEST WAS PERFORMED AT:[facility] [place] [id number] STRICKLAND MD 04/21/2025 10:4 3 AM EDT 04/21/2025 1:18 PM EDT us Leta Dick MD LAB BLOOD ORDERAB LES Final Result [facility] [address] [place] [phone] * RPR (Monitor) with Reflex to??Titer (04/21/2025 10:43 AM EDT) RPR (Monitor) w/Refl Titer NON-REACTI VE NON-REACT [place] [facility] Comment:THIS TEST WAS PERFOR MED AT:[email or web address] [place] [id number] STRICKLAND MD Rapid Plasma Reagin Ab Titer TNP [facility] 04/21/2025 10:4 3 AM EDT 04/21/2025 1:18 PM EDT us Leta Dick MD LAB BLOOD ORDERAB LES Final Result [facility] [address] [place] [phone] * (ABNORMAL) Hepatitis C Antibody with Reflex to HCV, RNA, Quantitative, Real- Time PCR (04/21/2025 10:43 AM EDT) Hepatitis C Antibody Reactive( A) Nonreactive [facility] Comment:Presumptive evidence of antibodies to HCV. 04/21/2025 10:4 3 AM EDT 04/21/2025 1:18 PM EDT us Leta Dick MD LAB BLOOD ORDERAB LES Final Result Performing Organization Address [facility]/ZIP Co de Phone Number [facility] [address] [place] [phone] * Syphilis Screen (04/21/2025 10:43 AM EDT) Syphilis Screen Nonreactive Nonreactive [facility] 04/21/2025 10:4 3 AM EDT 04/21/2025 1:18 PM EDT us Leta Dick MD LAB BLOOD ORDERAB LES Final Result Performing Organization Address [facility] Co de Phone Number [facility] [address] [place] [phone] documented in this encounter Visit Diagnoses Diagnosis Healthcare maintenance documented in this encounter Additional Health Concerns Assessment Noted Time PHQ-9 Depression Total Score: 0 03/12/20 25 10:25 AM EDT documented as of this encounter Care Teams Feeder Operator Automatic Relationship Specialty Start Date End Date Leta Soto MD [address] [place] [phone] PCP - General Internal Medicine 04/11/23 Yajaira Antonio [address] [place] [address] Drive 3rd [place] [address] Gastroenterology 09/04/24 [facility] Home Health 01/28/25 documented as of this encounter
--- OUTSIDE RECORDS SUMMARY | 2025-05-19 15:06 | XMS_ITS | Encounter Summary ---
Author Organization [employer] Address [address] [facility] 7t [place] [address] Care Team Providers Care Business Technology Architect Name Role Phone Leta Soto MD Primary Care Pro vider Yajaira Antonio Unavailable Encounter Details Date Type Department Care Team (Late st Contact Info) Description 03/23/2025 Results Follow-Up [facility] [address] [place] [address] Leta Soto MD [address] [place] [address] CT Head w/o Contrast, Ammonia, Plasma, Urinalysis, [...] Description 06/09/2025 9:45 AM EDT Office Visit [facility] [address] [place] [address] Leta Soto MD [address] [place], [place] [phone] documented as of this encounter Goals Goal [...] documented as of this encounter Care Teams Business Technology Architect Relationship Specialty Start Date End Date Leta Soto MD [address] [place] [address] PCP - General Internal Medicine 04/11/23 Yajaira Antonio [address]rd [place] [address] Gastroenterology 09/04/24 [facility] Home Health 01/28/25 documented as of this encounter
--- OUTSIDE RECORDS SUMMARY | 2025-05-19 15:06 | XMS_ITS | Encounter Summary ---
Author Organization [employer] Address [address] [facility] 7t [place] [address] Care Team Providers Care Director Franchise Sales Name Role Phone Leta Soto MD Primary Care Pro vider Yajaira Antonio Unavailable Encounter Details Date Type Department Care Team (Late st Contact Info) Description 04/13/2025 Results Follow-Up [facility] [address] [place] [address] Leta Soto MD [address] [place] [address] CT Cervical Spine w/o Contrast Social History [...] Description 06/09/2025 9:45 AM EDT Office Visit [facility] [address] [place] [phone] Leta Soto MD [address] [place] [address] documented as of this encounter Goals Goal [...] as of this encounter Care Teams Director Franchise Sales Relationship Specialty Start Date End Date Leta oSto MD [address] [place] [phone] PCP - General Internal Medicine 04/11/23 Yajaira Antonio [address] [place] [address] 3rd [place] [address] Gastroenterology 09/04/24 [facility] Home Health 01/28/25 documented as of this encounter
--- OUTSIDE RECORDS SUMMARY | 2025-05-19 15:06 | XMS_ITS | Clinical Summary ---
Author Organization [employer] Address [address] [place] [address] Care Team Providers Care Associate Name Role Phone Leta Soto MD Primary [...] for erectile dysfunction. 10 tablet 04/17/20 25 Active carvedilol (Coreg) 3.125 MG tablet Take 1 tablet (3.125 mg) by mouth with breakfast and with evening meal. 60 tablet 2 04/22/20 25 Active lactulose (Chronulac) 10 GM/15ML solution TAKE 45 ML BY MOUTH THREE TIMES DAILY DIRECTED 1350 mL 3 04/28/20 25 Active lactulose (Chronulac) 10 GM/15ML solution [...] once established b. Patient may return to [facility] for medical needs until a PCP is [...] Provider, Generic External Data 04/27/2025 Orders Only [facility] [address] [facility] [place] [address] Veronica Miles, CHANDU 04/27/2025 Refill [facility] [address] [facility] [place] [address] Leta Soto MD 04/22/2025 Telephone [facility] [address] [facility] [place] [address] Sadia Denny RN Medication Changes 04/22/2025 Orders Only [facility] [address] [facility] [place] [address] Leta Soto MD 04/21/2025 Orders Only [facility] [address] [facility] [place] [address] Imelda Pfeiffer, CHANDU Healthcare maintenance 04/20/2025 Telephone [facility] [address] [facility] [place] [address] Leta Soto MD FYI 04/17/2025 9:20 AM EDT Office Visit [facility] [address] [facility] [place] [address] Leta Forte MD Essential hypertension (Primary Dx); Erectile dysfunction, unspecified erectile dysfunction type 04/17/2025 Travel 04/16/2025 Refill [facility] [address] [facility] [place] [address] Leta Soto MD 04/14/[address] [address] Leta Soto MD RESIDENT CARE SUPERVISOR Services (I called the patient at [phone], regarding his request for RESIDENT CARE SUPERVISOR services, and reached a recording stating that the number is not in service. I then called [phone], and he stated that he needs assistance with transferring and walking, because he has swelling in his legs, and falls frequently. He also needs assistance with getting to appointments. I informed him that a community health representative from [facility] would be in contact with him, to schedule an evaluation. He is currently living at the [facility],) 04/13/2025 Results Follow-Up [address] Cervical Spine w/o Contrast 04/11/2025 Orders Only GENERIC EXTERNAL DATA DEPARTMENT Provider, Generic External Data 03/30/2025 Orders Only GENERIC EXTERNAL DATA DEPARTMENT Provider, Generic External Data 03/26/[address] [address] Sadia Denny RN Medication Compliance; Referral 03/24/2025 Orders Only GENERIC EXTERNAL DATA DEPARTMENT Provider, Generic External Data 03/24/[address] [address] Leta Soto MD 03/23/2025 Results Follow-Up [address] Head w/o Contrast, Ammonia, Plasma, Urinalysis, Complete, with Reflex to Culture, Additional followed-up results: 9 03/21/2025 Orders Only GENERIC EXTERNAL DATA DEPARTMENT Provider, Generic External Data 03/18/2025 Refill [facility] [place], [place] [address] Leta Soto MD 03/17/2025 Results Follow-Up [facility] [place], [place] [address] Leta Soto MD XR Chest 2 Views 03/17/2025 Telephone [facility] [place], [place] [address] Yamel Khanna, RN Care Coordination 03/17/2025 Patient Outreach [facility] [place], [place] [address] Leta Soto MD 03/16/2025 Orders Only [facility] [place], [place] [address] Leta Soto MD 03/16/2025 Telephone [place] [address] Leta Soto MD Image order 03/12/2025 10:00 AM EDT Office Visit [facility] [place], [place] [address] Leta Soto MD Hypertension, unspecified type (Primary [...] use; Syncope, unspecified syncope type 03/12/2025 Telephone [place] [address] Leta Soto MD Prior Authorization 03/12/2025 Travel 03/11/2025 Telephone [place] [address] Leta Soto MD Chart Prep 03/06/2025 Telephone [facility] [address] [place] [address] Leta Soto MD FYI 02/26/2025 Orders Only GENERIC EXTERNAL DATA DEPARTMENT Provider, Generic External Data 02/18/2025 Telephone [facility] [address] [place] [address] Tricia Rivers MA CHART PREP 02/16/2025 Telephone [facility] [address] [place] [address] Leta Soto MD FYI 02/16/2025 Telephone [facility] [address] [place] [address] Leta Soto MD Chart Prep from Last 3 Months Immunizations Immunization Administration [...] Description 06/09/2025 9:45 AM EDT Office Visit [facility] [address] [place] [address] Leta Soto MD [address] [place] [phone] Health Maintenance Due Date Last Done Comments [...] Procedure Name Priority Date/Time Associated Diagnosis Comments HIGH SENSITIVITY TROPONIN I Routine 05/15/2025 2:19 PM EDT B TYPE NATRIURETIC PEPTIDE (BNP) Routine 05/15/2025 2:19 PM EDT URINALYSIS, COMPLETE, WITH REFLEX TO CULTURE Routine 05/15/2025 2:19 PM EDT PROTHROMBIN TIME-INR Routine 05/15/2025 11:23 AM EDT [...] TO CULTURE Routine 02/26/2025 2:17 PM EDT LIPID PANEL, STANDARD Routine 04/06/2023 10:00 AM EDT Healthcare maintenance from Last 3 Months or Most Recently Relevant to Health Maintenance Results * High Sensitivity Troponin I (05/15/2025 2:19 PM EDT) Only the most recent of2 resultswithin the time period is included. TROPONIN I HIGH SENSITIVITY 33.9 <3.5 - 35.0 ng/L [facility] Comment:The Clifford high sens itivity Troponin-I results should beused in conjunction with other diagnostic information suchas ECG, clinical observations and information, and patientsymptoms to aid in the diagnosis of LA. 05/15/2025 2:19 PM EDT 05/15/2025 2:33 PM EDT us Generic External Data Provider LAB BLOOD ORDERAB LES Final Result [facility] [address] [place] [phone] * Urinalysis, Complete, with Reflex to Culture (05/15/2025 2:19 PM EDT) Only the most recent of3 resultswithin the time period is included. Color Urine Yellow [facility] Appearance Urine Clear [facility] PH 8.0 5.0 - 9.0 [facility] Glucose Urine UA Negative Negative mg/dL [facility] Urine Blood Negative Negative [facility] Specific [place] - Urine 1.010 1.005 - 1.025 [facility] Urine Protein Negative Neg-Trace mg/dL [facility] Urine Ketones Negative Negative mg/dL [facility] Nitrite Urine Negative Negative [facility] Leukocyte Esterase Urine Negative Negative [facility] RBC Urine 0-2 0 - 2 /HPF [facility] Urine WBC 0-5 0 - 5 /HPF [facility] Urine Squamous Epithelial Cell 0-2 0 - 2 /HPF [facility] Urine Bacteria None Seen None Seen [facility] Hyaline Casts, Urine 0-2 0 - 2 /LPF [facility] 05/15/2025 2:19 PM EDT 05/15/2025 2:33 PM EDT Narrative [facility] - 05/15/2025 2:44 PM EDT Urine, Clean Catch us Generic External Data Provider LAB URINE ORDERAB LES Final Result Performing Organization Address City/[facility]/ZIP Co de Phone Number [facility] [address] [place] [phone] * (ABNORMAL) B Type Natriuretic Peptide (BNP) (05/15/2025 2:19 PM EDT) B Type Natriuretic Peptide 178(H) <100 pg/mL [facility] 05/15/2025 2:19 PM EDT 05/15/2025 2:33 PM EDT Generic External Data Provider LAB BLOOD ORDERAB LES Final Result Performing Organization Address [facility] de Phone Number [facility] [address] [place] [phone] * (ABNORMAL) Prothrombin Time-INR (05/15/2025 11:23 AM EDT) Only the most recent of2 resultswithin the time period is included. Prothrombin Time 16.1(H) 10.9 - 12.4 SEC [facility] INTERNATIONAL NORM RATIO 1.4(H) 0.9 - 1.1 [facility] Comment:INTERNATIONAL NORMAL IZED RATIO [...] ORDERAB LES Final Result Performing Organization Address [facility] Co de Phone Number [facility] [address] [place] [phone] * Syphilis Screen (04/21/2025 10:43 AM EDT) Pathologist [facility] Syphilis Screen Nonreactive Nonreactive [facility] 04/21/2025 10:4 3 AM EDT 04/21/2025 1:18 PM EDT us Leta Dick MD LAB BLOOD ORDERAB LES Final Result Performing Organization Address [facility] Phone Number [facility] [address] [place] [phone] * Hepatitis C Viral RNA, Quantitative, Real-Time PCR (04/21/2025 10:43 AM EDT) [facility] Hepatitis C Viral Load <15 NOT DETECTED NOT DETECTED IU/mL [facility] HCV Log PCR <1.18 NOT DETECTED NOT DETECTED Log IU/mL [facility] Comment:For additional infor mation, please refer tohttp://education.[employer]/faq/FUX34j4(This link is being provided for informational/educational purposes only.)THIS TEST WAS PERFORMED AT:[employer] [place] [id number] STRICKLAND MD 04/21/2025 10:4 3 AM EDT 04/22/2025 8:54 AM EDT us Leta Dick MD LAB BLOOD ORDERAB LES Final Result Performing Organization Address [facility] Co de Phone Number [facility] [address] [place] [phone] * (ABNORMAL) Hepatitis C Antibody with Reflex to HCV, RNA, Quantitative, Real- Time PCR (04/21/2025 10:43 AM EDT) [facility] Hepatitis C Antibody Reactive( A) Nonreactive [facility] Comment:Presumptive evidence of antibodies to HCV. 04/21/2025 10:4 3 AM EDT 04/21/2025 1:18 PM EDT us Leta Dick MD LAB BLOOD ORDERAB LES Final Result Performing Organization Address City/[facility]/ZIP Co de Phone Number [facility] [address] [place] [phone] * HIV-1 RNA, Quantitative, Real-Time PCR (04/21/2025 10:43 AM EDT) [facility] HIV RNA PCR Qn Copies NOT DETECTED NOT DETECTED copies/mL [facility] HIV RNA PCR Qn Log Copies NOT DETECTED NOT DETECTED [facility] Comment:Result Units: Log co pies/mLThis test was performed using Real-Time Polymerase ChainReaction.Reportable Range: 20 copies/mL to 10,000,000 copies/mL(1.30 log copies/mL to 7.00 log copies/mL).THIS TEST WAS PERFORMED AT[facility] [address] [id number] STRICKLAND MD 04/21/2025 10:4 3 AM EDT 04/21/2025 1:18 PM EDT us Leta Dick MD LAB BLOOD ORDERAB LES Final Result Performing Organization Address [facility]/ZIP Co de Phone Number [facility] [address] [place] [phone] * RPR (Monitor) with Reflex to??Titer (04/21/2025 10:43 AM EDT) Pathologist [facility] RPR (Monitor) w/Refl Titer NON-REACTI VE NON-REACT [place] [facility] Comment:THIS TEST WAS PERFOR MED AT:[employer] [place] [id number] STRICKLAND MD Rapid Plasma Reagin Ab Titer TNP [facility] 04/21/2025 10:4 3 AM EDT 04/21/2025 1:18 PM EDT Leta Dick MD LAB BLOOD ORDERAB LES Final Result [facility] [address] [place] [phone] * Chlamydia/Gonorrhea Throat Swab ([facility]) (04/21/2025) Chlamydia Throat Swab Negative Gonorrhea Throat Swab Negative Swab 04/21/2025 [facility] Provider LAB MICROBIOLOGY - GENERA L ORDERABLES Final Result * Chlamydia/Gonorrhea, Urine ([facility]) (04/21/2025) Chlamydia, Urine Negative Negative, Indeterminate, None Detected, Invalid, Specimen unsatisfactory for evaluation, Weakly Positive, 2+ Gonorrhea, Urine Negative Negative, Indeterminate, None Detected, Invalid, Specimen unsatisfactory for evaluation, Weakly Positive, 2+ Urine 04/21/2025 Historical Provider MD LAB URINE ORDERABLES Robyn l Result * CT Head w/o Contrast (04/12/2025 12:29 AM EDT) Only the most recent of2 resultswithin the time period is included. Anatomical Region Laterality Modality Head, Neck Computed Tomogra phy 04/12/2025 12:2 9 AM EDT Narrative 04/12/2025 12:30 AM EDT [address] [address] [address] Scan Report Signed Patient: Adelso Beebe MR#: [id number] : 1960 Acct:[id number] Age/Sex: 64 / M ADM Date: 04/11/25 Loc: HO.ED Attending Dr: Ordering Physician: Cash Reno MD Date of Service: 04/11/25 Procedure(s): CT head/brain wo IV con Accession Number(s): [id number] cc: Cash Reno MD; [facility] Report Number: [id number]: Total DLP = 737.50 mGy-cm CLINICAL HISTORY: [...] in OV> 04/12/25 0030 DD/ TD/TT: 04/12/2528 [employer] Utility Worker: Procedure Note Donotuseinterpreter, Image - 04/12/[address] [address] [address] Scan Report Signed Patient: Adelso BeebeMR#: [id number] : 1960cct:[id number] Age/Sex: 64 / MADM Date: 04/11/25 Loc: HO.ED Attending Dr: Ordering Physician: Cash Reno MD Date of Service: 04/11/25 Procedure(s): CT head/brain wo IV con Accession Number(s): [id number] cc: Cash Reno MD; [facility] Report Number: [id number]: Total DLP = 737.50 mGy-cm CLINICAL HISTORY: [...] Tapia MD in OV> 04/12/25 0030 DD/ 0029 TD/TT: 04/12/25 0029 Line Assembly Utility Worker: [facility] External Provider IMG CT PROCEDURES Final Result * CT Cervical Spine w/o Contrast (04/12/2025 12:26 AM EDT) Anatomical Region Laterality Modality Spine, C-spine Computed Tomogra phy 04/12/2025 12:2 6 AM EDT Narrative 04/12/2025 12:28 AM EDT [place] [address] CT Scan Report Signed Patient: Adelso Beebe MR#: [id number] : 1960 Acct:[id number] Age/Sex: 64 / M ADM Date: 04/11/25 Loc: HO.ED Attending Dr: Ordering Physician: Cash Reno MD Date of Service: 04/11/25 Procedure(s): CT cervical spine wo IV con Accession Number(s): [id number] cc: Cash Reno MD; [facility] Report Number: [id number]: Total DLP = 462.38 mGy-cm CLINICAL HISTORY: [...] MD in OV> 04/12/2526 DD/ TD/TT: 04/12/2525 [employer] Worker: Procedure Note Donotuseinterpreter, Image - 04/12/[address] [place] [address] [address] Scan Report Signed Patient: Adelso BeebeMR#: [id number] : [id number]:[id number] Age/Sex: 64 / MADM Date: 04/11/25 Loc: .ED Attending Dr: Ordering Physician: Cash Reno MD Date of Service: 04/11/25 Procedure(s): CT cervical spine wo IV con Accession Number(s): [id number] cc: Cash Reno MD; [facility] Report Number: [id number]: Total DLP = 462.38 mGy-cm CLINICAL HISTORY: [...] MD in OV> 04/12/2526 DD/ TD/TT: 04/12/2525 Line Assembly Utility Worker: [facility] External Provider IMG CT PROCEDURES Final Result * Slide Review (04/11/2025 11:22 PM EDT) Only the most recent of2 resultswithin the time period is included. Slide Review VERIFIED [facility] 04/11/2025 11:2 2 PM EDT 04/11/2025 11:26 PM EDT Generic External Data Provider LAB BLOOD ORDERAB LES Final Result Performing Organization Address [facility] Co de Phone Number [facility] [address] [place] [phone] * Ethanol (04/11/2025 11:22 PM EDT) Only the most recent of3 resultswithin the time period is included. ETHANOL (MG/DL) IN SER/PLAS <10 mg/dL [facility] Comment:Serum/plasma ethanol results are to be used formedical/treatment purposes only. 04/11/2025 11:2 2 PM EDT 04/11/2025 11:26 PM EDT Generic External Data Provider LAB BLOOD ORDERAB LES Final Result Performing Organization Address [facility] de Phone Number [facility] [address] [place] [phone] * (ABNORMAL) CBC auto differential (04/11/2025 11:22 PM EDT) Only the most recent of3 resultswithin the time period is included. White Blood Count 1.8(L) 4.8 - 10.8 X10*3/uL [facility] Red Blood Count 3.10(L) 4.60 - 5.80 X10*6/uL [facility] Hemoglobin 8.5(L) 14.0 - 18.0 g/dl [facility] Hematocrit 25.6(L) 42.0 - 52.0 % [facility] Mean Corpuscular Volume 82.6 80.0 - 98.0 fL [facility] Mean Corpuscular Hemoglobin 27.4 27.0 - 33.0 pg [facility] Mean Corpuscular HGB Conc 33.2 31.0 - 36.0 g/dl [facility] Red Cell Distribution Width 14.6 11.0 - 16.0 % [facility] Platelet Count 24(L) 160 - 400 X10*3/uL [facility] Neutrophils Percent Auto 49.7 45 - 73 % [facility] Imm Gran Pct Auto 0.0 0.0 - 0.4 % [facility] Lymphocytes Percent Auto 37.3 20 - 40 % [facility] Monocytes Percent Auto 11.3(H) 2 - 11 % [facility] Eosinophils Percent Auto 1.7 0 - 4 % [facility] Basophils Percent Auto 0.0 0 - 2 % [facility] NRBC Pct Auto 0.0 0.0 - 0.2 /100WBC [facility] Neutrophils Absolute Auto 0.9(L) 2.0 - 8.3 x10*3/uL [facility] Imm Gran Abs Auto 0.00 0.00 - 0.03 X10*3/uL [facility] Lymphocytes Absolute Auto 0.7(L) 1.2 - 4.9 X10*3/uL [facility] Monocytes Absolute Auto 0.2 0.1 - 1.2 X10*3/uL [facility] Eosinophils Absolute Auto 0.0 0.0 - 0.4 X10*3/uL [facility] Basophils Absolute Auto 0.0 0.0 - 0.2 X10*3/uL [facility] NRBC Abs Auto 0.000 0.0 - 0.012 X10*3/uL [facility] 04/11/2025 11:2 2 PM EDT 04/11/2025 11:26 PM EDT Generic External Data Provider LAB BLOOD ORDERAB LES Edited Result - Final Performing Organization Address [facility]/ZIP Co de Phone Number [facility] [address] [place] [phone] * Magnesium (04/11/2025 11:22 PM EDT) Only the most recent of3 resultswithin the time period is included. Magnesium 2.0 1.6 - 2.6 mg/dL [facility] 04/11/2025 11:2 2 PM EDT 04/11/2025 11:26 PM EDT Generic External Data Provider LAB BLOOD ORDERAB LES Final Result Performing Organization Address [facility]/ZIP Co de Phone Number [facility] [address] [place] [phone] * (ABNORMAL) Comprehensive Metabolic Panel (04/11/2025 11:22 PM EDT) Only the most recent of3 resultswithin the time period is included. Sodium 143 135 - 145 mmol/L [facility] Potassium 4.4 3.3 - 5.1 mmol/L [facility] Chloride 115(H) 96 - 108 mmol/L [facility] Carbon Dioxide 25 22 - 29 mmol/L [facility] Anion Gap 7(L) 12 - 20 [facility] Urea Nitrogen (BUN) 19(H) 9 - 16 mg/dL [facility] Creatinine, Serum 0.80 0.5 - 1.4 mg/dL [facility] Creatinine Clr Calc Pharmacy 103.0 [facility] Comment:eGFR (calculated fro m the MDRD study equation) and eCrCl(calculated from the Cockcroft-Gault equation) are based ondifferent parameters and may not yield comparable results.If eCrCl result is absurd, please check patient'sheight/weight. Estimated Glomerular Filt Rate >60 [facility] Comment:Chronic Kidney Disea se: Estimated GFR < 60 mL/min/1.62l3Dnemuq Kidney Disease: Estimated GFR < 15 mL/min/1.73m2 Glucose 99 60 - 115 mg/dL [facility] Calcium 8.5 8.4 - 10.2 mg/dL [facility] Bilirubin, Total 0.9 0.0 - 1.0 mg/dL [facility] Aspartate Amino Transferase 39(H) 5 - 37 U/L [facility] Alanine Aminotransferase 25 0 - 40 U/L [facility] Total Protein 6.0(L) 6.5 - 8.0 g/dL [facility] Albumin Level 2.8(L) 3.5 - 5.0 g/dL [facility] Alkaline Phosphatase 146(H) 39 - 117 U/L [facility] 04/11/2025 11:2 2 PM EDT 04/11/2025 11:26 PM EDT us Generic External Data Provider LAB BLOOD ORDERAB LES Final Result Performing Organization Address City/[facility]/ZIP Co de Phone Number [facility] [address] [place] [phone] * (ABNORMAL) Ammonia, Plasma (03/30/2025 5:57 PM EDT) Only the most recent of3 resultswithin the time period is included. Ammonia (P) 142(H) 13 - 55 umol/L [facility] 03/30/2025 5:57 PM EDT 03/30/2025 6:00 PM EDT us Generic External Data Provider LAB BLOOD ORDERAB LES Final Result Performing Organization Address City/[facility]/ZIP Co de Phone Number [facility] [address] [place] [phone] * Urinalysis w/reflex microscopic (03/30/2025 5:24 PM EDT) Color Urine Dark Yellow [facility] Appearance Urine Clear [facility] PH 6.0 5.0 - 9.0 [facility] Glucose Urine UA Negative Negative mg/dL [facility] Urine Blood Negative Negative [facility] Specific [place] - Urine 1.025 1.005 - 1.025 [facility] Urine Protein Negative Neg-Trace mg/dL [facility] Urine Ketones Trace Negative mg/dL [facility] Nitrite Urine Negative Negative [facility] Leukocyte Esterase Urine Negative Negative [facility] 03/30/2025 5:24 PM EDT 03/30/2025 5:31 PM EDT Narrative [facility] - 03/30/2025 5:42 PM EDT [id number], Clean Catch us Generic External Data Provider LAB URINE ORDERAB LES Final Result Performing Organization Address City/State/[facility] Co de Phone Number [facility] [address] [place] [address] [phone] * XR Knee 1-2 Views Right (03/30/2025 3:18 PM EDT) Anatomical Region Laterality Modality Lower Extremities, Knee Right Radiogra phic Imaging 03/30/2025 3:18 PM EDT Narrative 03/30/2025 4:30 PM EDT [address] [address] XRay Report Signed Patient: Adelso Beebe MR#: [id number] : 1960 Acct:[id number] Age/Sex: 64 / M ADM Date: 03/30/25 Loc: .ED Attending Dr: Ordering Physician: Jorge Wang MD Date of Service: 03/30/25 Procedure(s): XR knee RT 2V Accession Number(s): [id number] cc: Jorge Wang MD; Leta Soto MD [...] 03/30/25 1626 DD/ 1518 TD/TT: 03/30/25 1618 Line Assembly Utility Worker: Procedure Note Donotuseinterpreter, Image - 03/30/2025 [place] [address] XRay Report Signed Patient: Adelso BeebeMR#: [id number] : 1960cct:[id number] Age/Sex: 64 / MADM Date: 03/30/25 Loc: .ED Attending Dr: Ordering Physician: Jorge Wang MD Date of Service: 03/30/25 Procedure(s): XR knee RT 2V Accession Number(s): [id number] cc: Jorge Wang MD; Leta Soto MD [...] 03/30/25 1626 DD/ 1518 TD/TT: 03/30/25 1618 Line Assembly Utility Worker: [facility] External Provider IMG XR PROCEDURES Final Result * XR Hip right with Pelvis 1 view (03/30/2025 3:17 PM EDT) Anatomical Region Laterality Modality Lower Extremities, Hip Bilateral Radiograp hic Imaging 03/30/2025 3:17 PM EDT Narrative 03/30/2025 4:30 PM EDT [address] [address] XRay Report Signed Patient: Adelso Beebe MR#: [id number] : 1960 Acct:[id number] Age/Sex: 64 / M ADM Date: 03/30/25 Loc: HO.ED Attending Dr: Ordering Physician: Jorge Wang MD Date of Service: 03/30/25 Procedure(s): XR hip RT w PEL1V Accession Number(s): [id number] cc: Jorge Wang MD; Leta Soto MD [...] 03/30/25 1628 DD/ 1517 TD/TT: 03/30/25 1618 Line Assembly Utility Worker: Procedure Note Donotuseinterpreter, Image - 03/30/[address] [address] XRay Report Signed Patient: Adelso BeebeMR#: [id number] : 1960cct:[id number] Age/Sex: 64 / MADM Date: 03/30/25 Loc: HO.ED Attending Dr: Ordering Physician: Jorge Wang MD Date of Service: 03/30/25 Procedure(s): XR hip RT w PEL1V Accession Number(s): [id number] cc: Jorge Wang MD; Leta Soto MD [...] 03/30/25 1628 DD/ 1517 TD/TT: 03/30/25 1618 Line Assembly Utility Worker: [facility] External Provider IMG XR PROCEDURES Final Result * US Abdomen Limited (03/26/2025 10:11 AM EDT) Anatomical Region Laterality Modality Abdomen Ultrasound 03/26/2025 10:1 1 AM EDT Narrative 03/26/2025 11:08 AM EDT [address] [address] Ultrasound Report Signed Patient: Adelso Beebe MR#: [id number] : 1960 Acct:[id number] Age/Sex: 64 / M ADM Date: 03/24/25 Loc: HO.[facility] [address]: Getachew Vega MD Ordering Physician: Getachew Vega MD Date of Service: 03/26/25 Procedure(s): US abdomen limited Accession Number(s): [id number] cc: Getachew Vega MD; Leta Soto MD [...] 03/26/25 1105 DD/ 1011 TD/TT: 03/26/25 1028 Line Assembly Utility Worker: Procedure Note Donotuseinterpreter, Image - 03/26/[address] [address] Ultrasound Report Signed Patient: Adelso BeebeMR#: [id number] : 2Acct:[id number] Age/Sex: 64 / MADM Date: 03/24/25 Loc: [facility] 450-[address]: Getachew Vega MD Ordering Physician: Getachew Vega MD Date of Service: 03/26/25 Procedure(s): US abdomen limited Accession Number(s): [id number] cc: Getachew Vega MD; Leta Soto MD [...] 03/26/25 1105 DD/ 1011 TD/TT: 03/26/25 1028 Line Assembly Utility Worker: us [facility] External Provider IMG US PROCEDURES Edited Result - Final * XR Chest 1 View (03/24/2025 10:24 PM EDT) Anatomical Region Laterality Modality Chest Radiographic Susy ging 03/24/2025 10:2 4 PM EDT Narrative 03/24/2025 10:25 PM EDT [place] [address] XRay Report Signed Patient: Adelso Beebe MR#: [id number] : 1960 Acct:[id number] Age/Sex: 64 / M ADM Date: 03/24/25 [facility]: Lc Cohn MD Ordering Physician: Judy Flores PA-C Date of Service: 03/24/25 Procedure(s): XR chest 1V Accession Number(s): [id number] cc: Leta Soto MD; Judy Flores PA-C [...] signed by Daphne Jensen MD in OV> 03/24/255 DD/ TD/TT: 03/24/252223 Line Assembly Utility Worker: Procedure Note Donotuseinterpreter, Image - 03/24/[address] [address] XRay Report Signed Patient: Adelso BeebeMR#: [id number] : 1960cct:[id number] Age/Sex: 64 / MADM Date: 03/24/25 Loc: [place] [address]: Lc Cohn MD Ordering Physician: Judy Flores PA-C Date of Service: 03/24/25 Procedure(s): XR chest 1V Accession Number(s): [id number] cc: Leta Soto MD; Judy Flores PA-C [...] in OV> 03/24/252224 DD/ 23 TD/TT: 03/24/252223 Line Assembly Utility Worker: us [facility] External Provider IMG XR PROCEDURES Final Result * MR Brain w/o Contrast (03/24/2025 6:18 PM EDT) Anatomical Region Laterality Modality Brain Magnetic Resonan ce 03/24/2025 6:18 PM EDT Narrative 03/24/2025 6:19 PM EDT [address] [address] Magnetic Resonance Report Signed Patient: Adelso Beebe MR#: [id number] : 1960 Acct:[id number] Age/Sex: 64 / M ADM Date: 03/24/25 Loc: HO.ED Attending Dr: Ordering Physician: Edwin Davis MD Date of Service: 03/24/25 Procedure(s): MR head/brain wo con Accession Number(s): [id number] cc: Leta Soto MD; Edwin Davis MD [...] in OV> 03/24/251818 DD/ 17 TD/TT: 03/24/251817 Line Assembly Utility Worker: Procedure Note Donotuseinterpreter, Image - 03/24/2025 [place] [address] Magnetic Resonance Report Signed Patient: Adelso Beebe#: [id number] : 1960cct:[id number] Age/Sex: 64 / MADM Date: 03/24/25 Loc: HO.ED Attending Dr: Ordering Physician: Edwin Davis MD Date of Service: 03/24/25 Procedure(s): MR head/brain wo con Accession Number(s): [id number] cc: Leta Soto MD; Edwin Davis MD [...] in OV> 03/24/251818 DD/ 17 TD/TT: 03/24/251817 Line Assembly Utility Worker: [facility] External Provider IMG MRI PROCEDURES Final Result * (ABNORMAL) VENOUS BLOOD GAS (03/24/2025 2:32 PM EDT) VBG pH 7.54(H) 7.32 - 7.43 [facility] Comment:METER #: [id number] additional_comment: Cb rogalt VBG PCO2 25 mmHg [facility] Comment:METER #: [id number] additional_comment: Cb rogalt VBG PO2 99 mmHg [facility] Comment:METER #: [id number] additional_comment: Cb rogalt VBG Base Excess 0.3 mmol/L [facility] Comment:METER #: [id number] additional_comment: Jeferson dickinson VBG HCO3 21(L) 22 - 26 mmol/L [facility] Comment:METER #: [id number] additional_comment: Jeferson dickinson O2 Sat, [place] 100.0 % [facility] Comment:METER #: [id number] additional_comment: Jeferson dickinson 03/24/2025 2:32 PM EDT 03/24/2025 2:37 PM EDT us Generic External Data Provider LAB BLOOD ORDERAB LES Final Result Performing Organization Address City/[facility] [address]/ZIP Co de Phone Number [facility] [address] [place] [phone] * Type and screen (03/21/2025 12:18 PM EDT) Blood Type ON [facility] Antibody Screen NEGATIVE [facility] 03/21/2025 12:1 8 PM EDT 03/21/2025 12:23 PM EDT Generic External Data Provider LAB BLOOD BANK TE ST ORDERABLES Final Result Performing Organization Address [facility] Co de Phone Number [facility] [address] [place] [phone] * Lipase (03/21/2025 12:11 PM EDT) Lipase 41 8 - 78 U/L [facility] 03/21/2025 12:1 1 PM EDT 03/21/2025 12:14 PM EDT us Generic External Data Provider LAB BLOOD ORDERAB LES Final Result Performing Organization Address [facility] [address] [facility] Co de Phone Number [facility] [address] [place] [phone] * Lactic Acid (03/21/2025 12:11 PM EDT) Lactic Acid 1.6 0.5 - 2.0 mmol/L [facility] 03/21/2025 12:1 1 PM EDT 03/21/2025 12:14 PM EDT Generic External Data Provider LAB BLOOD ORDERAB LES Final Result Performing Organization Address [facility] [address] [facility] Co de Phone Number [facility] [address] [place] [phone] * Glucose, Whole Blood (03/21/2025 10:55 AM EDT) Glucose, Whole Blood 83 60 - 115 mg/dL [facility] Comment:METER #: [id number] 03/21/2025 10:5 5 AM EDT 03/23/2025 8:12 AM EDT Generic External Data Provider LAB BLOOD ORDERAB LES Final Result Performing Organization Address [facility] [address] [facility] de Phone Number [facility] [address] [place] [phone] * XR Chest 2 Views (03/17/2025 8:06 AM EDT) Anatomical Region Laterality Modality Chest Radiographic Susy ging 03/17/2025 8:06 AM EDT Narrative 03/17/2025 9:11 AM EDT [address] [address] XRay Report Signed Patient: Adelso Beebe MR#: [id number] : 1960 Acct:[id number] Age/Sex: 64 / M ADM Date: 03/17/25 Loc: .HHCX Attending Dr: Leta Dick MD Ordering Physician: Leta Soto MD Date of Service: 03/17/25 Procedure(s): XR chest 2V Accession Number(s): [id number] cc: Leta Soto MD EXAMINATION: XR CHEST [...] signed by Rao Hale MD in OV> 03/17/2509 DD/ 0806 TD/TT: 03/17/25 0858 Line Assembly Utility Worker: Procedure Note Donotuseinterpreter, Image - 03/17/[address] [address] XRay Report Signed Patient: Adelso BeebeMR#: [id number] : 1960cct:[id number] Age/Sex: 64 / MADM Date: 03/17/25 Loc: HO.[facility]HCX Attending Dr: Leta Dick MD Ordering Physician: Leta Soto MD Date of Service: 03/17/25 Procedure(s): XR chest 2V Accession Number(s): [id number] cc: Leta Soto MD EXAMINATION: XR CHEST [...] signed by Rao Hale MD in OV> 03/17/25908 DD/ 0806 TD/TT: 03/17/25 0858 Line Assembly Utility Worker: [facility] Dick MD IMG XR PROCEDURES Edited Result - Final * Drug Monitoring, Panel 1, Screen, Urine (02/26/2025 2:17 PM EDT) Opiate Screen Urine Not Detected Not Detect [facility] Comment:Opiate cut-off is 30 0 ng/mL.Positive results are unconfirmed and should not be used fornon-medical purposes. Barbiturates, Urine Not Detected Not Detect [facility] Comment:Barbiturate cut-off is 200 ng/mL.Positive results are unconfirmed and should not be used fornon-medical purposes. Phencyclidine Screen Urine Not Detected Not Detect [facility] Comment:Phencyclidine cut-of f is 25 ng/mL.Positive results are unconfirmed and should not be used fornon-medical purposes. Amphetamine Screen Urine Not Detected Not Detect [facility] Comment:Amphetamine cut-off is 1000 ng/mL.Positive results are unconfirmed and should not be used fornon-medical purposes. Benzodiazepines Screen Urine Not Detected Not Detect [facility] Comment:Benzodiazepine cut-o ff is 200 ng/mL.Positive results are unconfirmed and should not be used fornon-medical purposes. Cocaine Screen Urine Not Detected Not Detect [facility] Comment:Cocaine cut-off is 3 00 ng/mL.Positive results are unconfirmed and should not be used fornon-medical purposes. Cannabinoid Screen Urine Not Detected Not Detect [facility] Comment:Cannabinoid cut-off is 50 ng/mL.Positive results are unconfirmed and should not be used fornon-medical purposes. Methadone Screen, Urine Not Detected Not Detect ng/mL [facility] Comment:Methadone cut-off is 300 ng/mL.Positive results are unconfirmed and should not be used fornon-medical purposes. FENTANYL URINE Not Detected Not Detect [facility] Comment:Fentanyl cut-off is 1 ng/mL.Positive results are unconfirmed and should not be used fornon-medical purposes. Oxycodone Urine Screen Not Detected Not Detect ng/mL [facility] Comment:Oxycodone cut-off is 100 ng/mL.Positive results are unconfirmed and should not be used fornon-medical purposes. Buprenorphine Screen Not Detected Not Detect ng/mL [facility] Comment:Buprenorphine cut-of f is 5 ng/mL.Positive results are unconfirmed and should not be used fornon-medical purposes. 02/26/2025 2:17 PM EDT 02/26/2025 2:21 PM EDT us Generic External Data Provider LAB URINE ORDERAB LES Final Result Performing Organization Address City/State/[facility] Co de Phone Number [facility] [address] [place] [phone] * Lipid Panel, Standard (04/06/2023 10:00 AM EDT) Triglycerides 94 mg/dL [facility] Comment:Desirable Triglyceri de: less than 150 mg/dLBorderline High Triglyceride 150-199 mg/dLHigh Triglyceride: 200-499 mg/dLVery High Triglyceride: greater than or equal to 5OO mg/dL Cholesterol 79 mg/dL [facility] Comment:Desirable Cholestero l: less than 200 mg/dLBorderline High Cholesterol: 200-239 mg/dLHigh Cholesterol: greater than 239 mg/dL LDL Cholesterol Calculated 36 mg/dl [facility] Comment:Desirable LDL: less than 100 mg/dLNear Optimal/Above Optimal LDL: 110- 129 mg/dLBorderline High LDL: 130-159 mg/dLHigh LDL: 160-189 mg/dLVery High LDL: greater than or equal to 190 mg/dL HDL Cholesterol 25 mg/dL [facility] Comment:Desirable HDL: great er than 40 mg/dL Note: This HDL assay may give artificially low results in patients with liver disease. Blood Venous blood specimen / Unknown 04/06/2023 10:00 AM EDT 04/06/2023 11:20 AM EDT Ann MOISE LAB BLOOD ORDERABLES Final Resul t [facility] [address] [place] [phone] from Last 3 Months or Most Recently Relevant to Health Maintenance Insurance [facility] C3 Care Teams Associate Relationship Specialty Start Date End Date Leta Soto MD [address] [place] [phone] PCP - General Internal Medicine 04/11/23 Yajaira Antonio [address] [place] [address] Drive [address] [place] [address] Gastroenterology 09/04/24 [facility] 01/28/25
--- OUTSIDE RECORDS SUMMARY | 2025-05-19 15:06 | XMS_ITS | Encounter Summary ---
Author Organization [employer] Address [address] [facility] 7t [place] [address] Care Team Providers Care Heel Cutter Name Role Phone Leta Soto MD Primary Care Pro vider Yajaira Antonio Unavailable Encounter Details Date Type Department Care Team (Late st Contact Info) Description 03/17/2025 Results Follow-Up [facility] [address] [place] [address] Leta Soto MD [address] [place] [address] XR Chest 2 Views Social History Tobacco [...] Description 06/09/2025 9:45 AM EDT Office Visit [facility] [address] [place] [phone] Leta Soto MD [address] [place] [address] documented as of this encounter Goals Goal [...] documented as of this encounter Care Teams Heel Cutter Relationship Specialty Start Date End Date Leta Soto MD [address] [place] [phone] PCP - General Internal Medicine 04/11/23 Yajaira Antonio [address] [place] [address] 3rd [place] [address] Gastroenterology 09/04/24 [facility] 01/28/25 documented as of this encounter
--- OUTSIDE RECORDS SUMMARY | 2025-05-19 15:06 | XMS_ITS | Encounter Summary ---
Author Organization [employer] Address [address] [facility] [address]t [place] [address] Care Team Providers Care Inspector And Hand Packager Name Role Phone Leta Soto MD Primary [...] Description 06/09/2025 9:45 AM EDT Office Visit [facility] [address] [place] [phone] Leta Soto MD [address] [place], [place] [phone] documented as of this encounter Goals Goal Patient Goal Type Associated Problems Recent Progress Patient-Stated? Author Blood Pressure < 140/90 Blood Pressure 146/72(2024 9:16 AM EDT) No Loan Talbot Record your blood pressure once per day Blood Pressure No Loan Talbot documented as of this encounter Procedures Procedure Name Priority Date/Time Associated Diagnosis Comments HIGH SENSITIVITY TROPONIN I Routine 05/15/2025 2:19 PM EDT URINALYSIS, COMPLETE, WITH REFLEX TO CULTURE Routine 05/15/2025 2:19 PM EDT B TYPE NATRIURETIC PEPTIDE (BNP) Routine 05/15/2025 2:19 PM EDT PROTHROMBIN TIME-INR Routine 05/15/2025 11:23 AM EDT documented in this encounter Results * High Sensitivity Troponin I (05/15/2025 2:19 PM EDT) [facility] TROPONIN I HIGH SENSITIVITY 33.9 <3.5 - 35.0 ng/L [facility] Comment:The Clifford high sens itivity Troponin-I results should beused in conjunction with other diagnostic information suchas ECG, clinical observations and information, and patientsymptoms to aid in the diagnosis of [place]. 05/15/2025 2:19 PM EDT 05/15/2025 2:33 PM EDT us Generic External Data Provider LAB BLOOD ORDERAB LES Final Result Performing Organization Address [facility]/ZIP Co de Phone Number [facility] [address] [place] [phone] * (ABNORMAL) B Type Natriuretic Peptide (BNP) (05/15/2025 2:19 PM EDT) [facility] B Type Natriuretic Peptide 178(H) <100 pg/mL [facility] 05/15/2025 2:19 PM EDT 05/15/2025 2:33 PM EDT us Generic External Data Provider LAB BLOOD ORDERAB LES Final Result Performing Organization Address [facility]/ZIP Co de Phone Number [facility] [address] [place] [phone] * Urinalysis, Complete, with Reflex to Culture (05/15/2025 2:19 PM EDT) [facility] Color Urine Yellow [facility] Appearance Urine Clear [facility] PH 8.0 5.0 - 9.0 [facility] Glucose Urine UA Negative Negative mg/dL [facility] Urine Blood Negative Negative [facility] Specific [place] - Urine 1.010 1.005 - 1.025 [facility] Urine Protein Negative Neg-Trace mg/dL [facility] Urine Ketones Negative Negative mg/dL [facility] Nitrite Urine Negative Negative [facility] Leukocyte Esterase Urine Negative Negative [facility] RBC Urine 0-2 0 - 2 /HPF [facility] Urine WBC 0-5 0 - 5 /HPF [facility] Urine Squamous Epithelial Cell 0-2 0 - 2 /HPF [facility] Urine Bacteria None Seen None Seen [facility] Hyaline Casts, Urine 0-2 0 - 2 /LPF [facility] 05/15/2025 2:19 PM EDT 05/15/2025 2:33 PM EDT Narrative [facility] - 05/15/2025 2:44 PM EDT Urine, Clean Catch Generic External Data Provider LAB URINE ORDERAB LES Final Result Performing Organization Address [facility] Co de Phone Number [facility] [address] [place] [phone] * (ABNORMAL) Prothrombin Time-INR (05/15/2025 11:23 AM EDT) Prothrombin Time 16.1(H) 10.9 - 12.4 SEC [facility] INTERNATIONAL NORM RATIO 1.4(H) 0.9 - 1.1 [facility] Comment:INTERNATIONAL NORMAL IZED RATIO (INR) [...] ORDERAB LES Final Result Performing Organization Address [facility] Co de Phone Number [facility] [address] [place] [phone] documented in this encounter Visit Diagnoses Not on filedocumented in this encounter Additional Health Concerns Assessment Noted Time PHQ-9 Depression Total Score: 0 03/12/20 25 10:25 AM EDT documented as of this encounter Care Teams Inspector And Hand Packager Relationship Specialty Start Date End Date Leta Soto MD [address] [place] [address] [place] [address] PCP - General Internal Medicine 04/11/[address] [place] [address] Gastroenterology 09/04/24 [facility] 01/28/25 documented as of this encounter
--- OUTSIDE RECORDS SUMMARY | 2025-05-19 15:06 | XMS_ITS | Encounter Summary ---
Author Organization [employer] Address [address] [facility] 7t [place] [address] Care Team Providers Care Tipple Supervisor Name Role Phone Leta Soto MD Primary Care Pro vider Yajaira Antonio Unavailable Encounter Details Date Type Department Care Team (Late st Contact Info) Description 11/11/2024 Telephone [facility] [address] [place] [address] Leta Soto MD [address] [place] [address] Social History Tobacco Use Types Packs/Day Years [...] PM EST Tc from amrita stiles case mgr requesting the status on pt documented in this encounter Plan of Treatment Upcoming Encounters Date Type Department Care Team (Late st Contact Info) Description 06/09/2025 9:45 AM EDT Office Visit [facility] [address] [place] [phone] Leta Soto MD [address] [place] [address] documented as of this encounter Goals Goal [...] documented as of this encounter Care Teams Tipple Supervisor Relationship Specialty Start Date End Date Leta Soto MD [address] [place] [phone] PCP - General Internal Medicine 04/11/[address] [place] [address] Gastroenterology 09/04/24 [facility] 01/28/25 documented as of this encounter
[2025-05-20 11:19] LABS: Hematocrit 26.9 % (42.0-52.0); Hemoglobin 8.6 g/dl (14.0-18.0); Imm Gran Abs Auto 0.00 X10*3/uL (0.00-0.03); Imm Gran Pct Auto 0.0 % (0.0-0.4); Lymphocytes Absolute Auto 0.8 X10*3/uL (1.2-4.9); MANUAL DIFF FLAG SCAN; Mean Corpuscular HGB Conc 32.0 g/dl (31.0-36.0); Mean Corpuscular Hemoglobin 25.8 pg (27.0-33.0); Mean Corpuscular Volume 80.8 fL (80.0-98.0); NRBC Abs Auto 0.000 X10*3/uL (0.0-0.012); NRBC Pct Auto 0.0 /100WBC (0.0-0.2); Red Blood Count 3.33 X10*6/uL (4.60-5.80); SCAN SMEAR FLAG 1
[2025-05-20 11:28] LABS: Platelet Count 34 X10*3/uL (160-400); White Blood Count 2.2 X10*3/uL (4.8-10.8)
[2025-05-21] VITALS (9 sets, daily range): BP systolic 106–134; BP diastolic 39–53; PULSE 56–69; RESP 16; TEMP 36.2–37.3; O2SAT 100; BMI 29.6
--- NOTE | 2025-05-21 12:12 | PC.NURSE ---
patient is a hardstick. multiple attempts. patient refusing us to use his hands. md santos inserted iv.
[2025-05-21] MEDS: Lactated Ringers 1,000 ML 100 ML IVCONT (12:18)
--- NOTE | 2025-05-21 12:29 | P.CONAN_ITS ---
Documented by User: Nimo Corrales NP 05/20/25 09:26 HPI - Anesthesia Eval Consult details Narrative: 64yo M for Upper Endoscopy with Banding s/p TIPS 10/2024 with GA-ETT 7.5 Per GI - pt to receive 2 units of platelets preop. 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 Reportedly agitated in ED and was given haloperidol and diazepam. Also given a dose of lactulose. Unclear how compliant he is with his regimen of lactulose and rifaximin though he has frequent admissions to this hospital with hepatic encephalopathy and was most recently discharged on 05/04/25, at which time he was also treated for pneuonia with levofloxacin. He endorses mild headache; denies fall. No hematemesis, hematochezia, or melena. Denies abdominal pain or swelling.' He was admitted to the telemetry unit and mental status rapidly normalized with giving lactulose and rifaximin. The importance of compliance with this regimen was counseled. Note that ammonia levels are unreliable in a patient with TIPS. TIPS patent on abdominal duplex uS. He was noted to have NSVT on telemetry. Cardiology consulted and did not recommend any further workup; did recommend increasing carvedilol dose from 3.125 to 6.25 mg bid. He will follow up with his primary care doctor and establish GI care as previously recomended. [facility] Active Problems Active Problems: All Active Problems Cirrhosis of liver (Acute) NSVT (nonsustained ventricular tachycardia) (Acute) Dizziness (Acute) Tobacco use disorder (Acute) Obesity (BMI 30.0-34.9) (Chronic) Acute metabolic encephalopathy (Acute) Acute hepatic encephalopathy (Acute) Dizziness (Acute) Hepatic encephalopathy (Acute) Thrombocytopenia (Chronic) Physical deconditioning (Acute) Leukopenia (Acute) Hyperchloremic metabolic acidosis (Acute) Chest pain (Acute) Back pain (Acute) Esophageal varices (Acute) Bacteremia (Acute) Vomiting (Acute) Atrophic gastritis (Acute) Hyperplastic adenomatous polyp of stomach (Acute) Iron deficiency anemia (Acute) Hepatitis B core antibody positive (Acute) Thickening of wall of gallbladder (Acute) Past Medical History Medical History (Updated 05/21/25 @ 10:49 by Azalia Hernandez RN) Eye abnormality Cirrhosis of liver Pancytopenia Hyperammonemia Pancytopenia Obesity (BMI 30.0-34.9) Fall Pancytopenia Hepatic encephalopathy Portal vein thrombosis Cirrhosis Splenic vein thrombosis Sepsis Cirrhosis of liver with ascites Abdominal pain Thrombocytopenia Pancytopenia Cirrhosis Hepatitis C virus infection Esophageal varices Pancytopenia Iron deficiency anemia Cirrhosis Hepatitis C HBP (high blood pressure) Family History Family History Maternal Grandmother Breast CA Uterus cancer Mother Primary lung cancer of unknown cell type Family history of problems with anesthesia: No Surgical History Surgical History S/P TIPS (transjugular intrahepatic portosystemic shunt) H/O left inguinal hernia repair H/O eye surgery History of esophagogastroduodenoscopy (EGD) H/O colonoscopy History of Problems with Anesthesia: No Social History Social History Household Members: Other Household Members Other:: pt comes from a senior living Housing: Other Housing Other:: senior living Are you a primary child care to a significant other at home: No Do you presently have visiting nurse or other home services: No Unable to assess alcohol history related to: Unable to respond Alcohol intake: former Comment: pt refusing alarm's Patient Tobacco Use Status: Current someday Tobacco user Tobacco use type: Cigarette Cigarette Packs Per Day: 1 Cigarettes Per Day: 0.5 Years Smoked: 30 e-Cigarette/Vaping Use: Currently Using Second Hand Smoke Exposure: No Use of substances other than those prescribed or required for medical reasons: No Substance Use Type: Crack/Cocaine and Marijuana Are you DNR?: No Advance Directives: No Advance Directives Information Provided: Yes Advance Directives Date on File: 04/02/24 Poor oral hygiene: No service: No Current occupational status: retired Meds Allergies Allergy/AdvReac Type Severity Reaction Status Date / Time dicyclomine (From Bentyl) Allergy Unknown Verified 05/16/25 13:48 aspirin AdvReac Severe stomach Verified 05/16/25 13:48 bleeding NSAIDS (Non-Steroidal AdvReac Severe liver Verified 05/16/25 13:48 Anti-Inflamma concerns Home Medications ?Medication ?Instructions ?Recorded ?Confirmed ?Last Taken ?Type furosemide 40 mg tablet 40 mg PO DAILY 04/21/25 0903/04 Unknown History Exam Pertinent Lab Results Pertinent Lab Results: Laboratory Tests 05/17/25 08:35 WBC 3.1 L Hgb 10.5 L Hct 32.4 L Plt Count 37 L Sodium 142 Potassium 4.6 Chloride 114 H Carbon Dioxide 22 BUN 13 Creatinine 0.79 Narrative Narrative: EKG 05/2025 Vent. Rate : 68 BPM Atrial Rate : 68 BPM P-R Int : 124 ms QRS Dur : 86 ms QT Int : 412 ms P-R-T Axes : 29 20 70 degrees QTcB Int : 438 ms Normal sinus rhythm Normal ECG When compared with ECG of 15-May-2025 14:29, No significant change was found Abd US 05/2025 Impression: 1. The TIPS is patent. CXR 05/2025 IMPRESSION: 1. No acute findings. Assessment and Plan Assessment Anesthesia Assessment: Chart Reviewed Final Anesthetic Review Family History of Problems with Anesthesia: No History of Problems with Anesthesia: No Documented by User: Svitlana Saavedra DO 05/21/25 12:32 [facility] Past Medical History Medical History (Updated 05/21/25 @ 10:49 by Azalia Hernandez RN) Eye abnormality Cirrhosis of liver Pancytopenia Hyperammonemia Pancytopenia Obesity (BMI 30.0-34.9) Fall Pancytopenia Hepatic encephalopathy Portal vein thrombosis Cirrhosis Splenic vein thrombosis Sepsis Cirrhosis of liver with ascites Abdominal pain Thrombocytopenia Pancytopenia Cirrhosis Hepatitis C virus infection Esophageal varices Pancytopenia Iron deficiency anemia Cirrhosis Hepatitis C HBP (high blood pressure) Family History Family History Maternal Grandmother Breast CA Uterus cancer Mother Primary lung cancer of unknown cell type Family history of problems with anesthesia: No Surgical History Surgical History S/P TIPS (transjugular intrahepatic portosystemic shunt) H/O left inguinal hernia repair H/O eye surgery History of esophagogastroduodenoscopy (EGD) H/O colonoscopy History of Problems with Anesthesia: No Social History Social History Household Members: Other Household Members Other:: pt comes from a senior living Housing: Other Housing Other:: senior living Are you a primary child care to a significant other at home: No Do you presently have visiting nurse or other home services: No Unable to assess alcohol history related to: Unable to respond Alcohol intake: former Comment: pt refusing alarm's Patient Tobacco Use Status: Current someday Tobacco user Tobacco use type: Cigarette Cigarette Packs Per Day: 1 Cigarettes Per Day: 0.5 Years Smoked: 30 e-Cigarette/Vaping Use: Currently Using Second Hand Smoke Exposure: No Use of substances other than those prescribed or required for medical reasons: No Substance Use Type: Crack/Cocaine and Marijuana Are you DNR?: No Advance Directives: No Advance Directives Information Provided: Yes Advance Directives Date on File: 04/02/24 Poor oral hygiene: No service: No Current occupational status: retired Meds Allergies Allergy/AdvReac Type Severity Reaction Status Date / Time dicyclomine (From Bentyl) Allergy Unknown Verified 05/16/25 13:48 aspirin AdvReac Severe stomach Verified 05/16/25 13:48 bleeding NSAIDS (Non-Steroidal AdvReac Severe liver Verified 05/16/25 13:48 Anti-Inflamma concerns Home Medications ?Medication ?Instructions ?Recorded ?Confirmed ?Last Taken ?Type furosemide 40 mg tablet 40 mg PO DAILY 04/21/25 09/0 03/04 Unknown History Exam Exam Date and Time: 05/21/25 1225 Height,Weight and Vital Signs: Height 5 ft 11 in Weight 96.3 kg Vital Signs Temperature 97.6 F 05/21/25 11:08 Pulse Rate 60 05/21/25 11:08 Respiratory Rate 16 05/21/25 11:08 Blood Pressure 134/52 L 05/21/25 11:08 Pulse Oximetry 100 05/21/25 11:08 Oxygen Delivery Method Room Air 05/21/25 11:08 Temperature 97.6 F 05/21/25 11:08 Pulse Rate 60 05/21/25 11:08 Respiratory Rate 16 05/21/25 11:08 Blood Pressure 134/52 L 05/21/25 11:08 Pulse Oximetry 100 05/21/25 11:08 Oxygen Delivery Method Room Air 05/21/25 11:08 Airway Mallampati Class: II TM Dist: >3cm Neck ROM: Limited Loose/Missing/Broken Teeth: Yes (broken #8 but no loose teeth) Heart: S1S2 Lungs: CTAB Assessment and Plan Assessment Anesthesia Assessment: Anesthesia Plan Discussed and Chart Reviewed Final Anesthetic Review Family History of Problems with Anesthesia: No History of Problems with Anesthesia: No NPO: Yes ASA Class: III Final Preanesthetic Review: No Changes in Pt Med Stat, Meds/Allgs Chart Reviewed, Consent Obtained/Reviewed and Anes Risks/Benef Reviewed Patient Risk: High Procedure Risk: Low Anesthetic Plan Anesthetic Plan: MAC: and Agree w/ Assess. and Plan Disposition: Standard PACU
--- NOTE | 2025-05-21 13:09 | MHC.SHP ---
Pre-Procedural Eval Section A - 24 Hr Update-Section A only Date of Service: 05/21/25 The patient is an INPATIENT: No The patient has been examined within 24 hours of the surgical procedure. The History & Physical has been completed within 30 days and I have reviewed it.: Yes Section B - Complete if H&P > 30 days Chief Complaint: Esophageal varices without bleeding Allergies: Allergies Allergy/AdvReac Type Severity Reaction Status Date / Time dicyclomine (From Bentyl) Allergy Unknown Verified 05/16/25 13:48 aspirin AdvReac Severe stomach Verified 05/16/25 13:48 bleeding NSAIDS (Non-Steroidal AdvReac Severe liver Verified 05/16/25 13:48 Anti-Inflamma concerns Plan Diagnosis/Plan: Unchanged I have reviewed the history and physical and performed a pertinent physical examination on my patient. No changes have occurred unless specified. Time Spent With Patient Time: Total time managing care of this patient today ____ minutes.
--- NOTE | 2025-05-21 13:44 | PC.NURSE ---
2nd unit of platelets started.
--- NOTE | 2025-05-21 13:52 | PC.NURSE ---
off unit to procedure per anesthesia. 2nd unit remains infusing.
--- NOTE | 2025-05-21 14:22 | P.OP_ITS ---
Operative Note Operative Note Date of Service: 05/21/25 Narrative: Procedure: Esophagogastroduodenoscopy Endoscopist: Yajaira Antonio MD Indication: Cirrhosis, variceal screening, gastric polyps Anesthesia Provider: Shreya Villaseñor CRNA Anesthesia Type: MAC EGD Procedure:?? The procedure, indications, preparation and potential complications were revi ewed with the patient with the help of hourly sign language interpreter, who indicated understanding and gave written informed consent to proceed. A physical exam was performed. The endoscope was introduced through the mouth, and advanced to the second part of duodenum. The mucosa was carefully examined on slow withdrawal of the endoscope. The patient tolerated the procedure well. There were no immediate complications.? ? EGD Findings:? * Esophagus:? No varices were appreciated on exam today. The Z line was at 40 cm. * Stomach:?Patchy erythema in a watermelon pattern in the antrum consistent with gastric antral vascular ectasia (GAVE). Retroflexion in the cardia showed a small hiatal hernia. 2 polyps noted in the body measuring 5-13 mm. Hot snare polypectomy was performed for hte larger polyp which was completely removed but not retrieved. Cold foceps polypectomy was performed for the smaller polyp. Argon plasma coagulation (APC) was applied for GAVE. * Duodenum:? Edema and erythema along with lymphangiectasis was noted in the whole of the examined duodenum. EGD Impressions:? * Normal esophageal mucosa * Gastric polyps x2 * GAVE (APC) * Duodenal lymphangectasia ?? Recommendations:?? * No portal hypertensive changes noted in keeping with hx of TIPS * Favor discontinuing carvedilol due to frequent lightheadedness and dizziness * Cont lactulose and rifaximin * Pt reported concerns re ED, likely has has hypo-T and hypogonadism 2/2 underlying cirrhosis. A referral to Urology will be placed
== END 2025-05-21 15:37 | disposition home or self-care (01) ==
PROVIDERS: PCP Student in an Organized Health Care Education/Training Program; Visit Provider Internal Medicine
PROC: 0DJ08ZZ Inspection of Upper Intestinal Tract, Via Natural or Artificial Opening Endoscopic (ICD-10-PCS; CPT 43235; principal; 2025-05-21 13:40)
DX: K74.60 Unspecified cirrhosis of liver (principal); I85.10 Secondary esophageal varices without bleeding; K76.6 Portal hypertension; K31.89 Other diseases of stomach and duodenum; K31.7 Polyp of stomach and duodenum; K31.811 Angiodysplasia of stomach and duodenum with bleeding; D69.6 Thrombocytopenia, unspecified; K44.9 Diaphragmatic hernia without obstruction or gangrene; I47.29 Other ventricular tachycardia; G93.41 Metabolic encephalopathy; K76.82 Hepatic encephalopathy; E87.29 Other acidosis; K29.40 Chronic atrophic gastritis without bleeding; D50.9 Iron deficiency anemia, unspecified; E66.811 Obesity, class 1; Z68.34 Body mass index [BMI] 34.0-34.9, adult; B19.20 Unspecified viral hepatitis C without hepatic coma; Z96.89 Presence of other specified functional implants; F17.210 Nicotine dependence, cigarettes, uncomplicated
CPT/HCPCS: 43236; 43239; 43251; 36415; 85025; 86850; 86900; 86901; 88305; 88313; 88342; C1889; J2003; J2371; J2704; P9073

== ENCOUNTER → 2025-05-21 08:31 | Outpatient (BNV) | payer MEDICAID, SELFPAY | PROVIDERS: PCP Student in an Organized Health Care Education/Training Program; Visit Provider Internal Medicine | DX: K31.7 Polyp of stomach and duodenum (principal); K31.819 Angiodysplasia of stomach and duodenum without bleeding; K31.89 Other diseases of stomach and duodenum | CPT/HCPCS: 43251; 43255 ==

== ENCOUNTER 2025-05-22 13:59 | Inpatient (IN) | payer MEDICAID, SELFPAY ==
--- NOTE | ~2025-05-22 | CT_ITS ---
EXAMINATION: CT HEAD WITHOUT CONTRAST CLINICAL INFORMATION: Altered mental status COMPARISON: May 02, 2025 TECHNIQUE: Contiguous axial imaging was performed from the skull base to vertex without intravenous administration of contrast. This CT examination was performed using dose optimization techniques as appropriate, variously including the following: *Automated exposure control *Adjustment of mA and/or kV according to patient size (this includes techniques or standardized protocols for targeted exams where dose is matched to indication/reason for exam; i.e. extremities or head) *Use of iterative reconstruction technique DLP: 682 mGY*cm FINDINGS: There is no acute ischemic change. There is no intracranial hemorrhage. There is no mass-effect or midline shift. Basal cisterns and ventricles are within normal limits for age/cerebral volume. 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 There is leftward deviation of the nasal septum and leftward bowing of the medial wall of maxillary sinus with a small left maxillary sinus containing small mucous retention cyst and mild mucosal thickening which has improved since the prior. CT/CT head/brain wo IV con IMPRESSION: No acute intracranial abnormality. Electronically signed by: Adolfo Singh MD 05/22/2025 03:51 PM EDT
--- NOTE | ~2025-05-22 | XR_ITS ---
EXAMINATION: XR CHEST CLINICAL INFORMATION: cough COMPARISON: Chest radiograph on May 16, 2025 TECHNIQUE: Frontal view of the chest was obtained. FINDINGS: Patient's chin partially limits evaluation of the lung apices. Low lung volumes. No confluent consolidation. No pneumothorax or pleural effusion. Cardiomediastinal silhouette is within normal limits. Osseous structures appear intact. XR/XR chest 1V IMPRESSION: Low lung volumes. No acute cardiopulmonary process. Electronically signed by: Juliet Strong MD 05/22/2025 02:36 PM EDT
[2025-05-22 14:08] VITALS: BP 139/57; BP 145/78; PULSE 62; PULSE 68; RESP 16; TEMP 36.8; O2SAT 100; BMI 29.6
--- NOTE | 2025-05-22 14:15 | ECG_ITS ---
Test Reason : CP Blood Pressure : */* mmHG Vent. Rate : 62 BPM Atrial Rate : 62 BPM P-R Int : 134 ms QRS Dur : 86 ms QT Int : 432 ms P-R-T Axes : 44 9 71 degrees QTcB Int : 438 ms Normal sinus rhythm Normal ECG When compared with ECG of 16-May-2025 14:05, No significant change was found Referred By: Jorge Wang Electronically Signed By: POP DAVIES MD
--- NOTE | 2025-05-22 14:16 | ED.AMS ---
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 He was a see HD is staff reported he was altered. MD complaint: altered mental status and confusion Onset (ago): hour(s) (2) Severity: moderate Consistency of symptoms: waxing and waning Context: other (Liver disease) Associated symptoms: denies other symptoms Related Data Home Medications ?Medication ?Instructions ?Recorded ?Confirmed carvedilol 6.25 mg tablet 6.25 mg PO BID 05/22/25 ferrous gluconate 324 mg (38 mg 324 mg PO 3XW 05/22/25 iron) tablet furosemide 40 mg tablet 40 mg PO QAM 05/22/25 losartan 25 mg tablet 25 mg PO QAM 05/22/25 Previous Rx's ?Medication ?Instructions ?Recorded walker #1 ea 02/08/25 amlodipine 5 mg tablet 5 mg PO DAILY #90 tabs 04/21/25 lactulose 10 gram/15 mL oral 40 g (60 mL) PO BID #1,200 mL 05/17/25 solution rifaximin 550 mg tablet (Xifaxan) 550 mg PO BID #60 tabs 05/17/25 Allergies Allergy/AdvReac Type Severity Reaction Status Date / Time dicyclomine (From Bentyl) Allergy Unknown Verified 05/22/25 14:10 aspirin AdvReac Severe stomach Verified 05/22/25 14:10 bleeding NSAIDS (Non-Steroidal AdvReac Severe liver Verified 05/22/25 14:10 Anti-Inflamma concerns Review of Systems Review of Systems: Yes Unobtainable due to mental status PMFSH Past Medical History Attestation statement: The following information was validated with the patient. Source: unable to obtain Medical History Portal vein thrombosis Eye abnormality Cirrhosis of liver Pancytopenia Hyperammonemia Pancytopenia Obesity (BMI 30.0-34.9) Fall Pancytopenia Hepatic encephalopathy Cirrhosis Splenic vein thrombosis Sepsis Cirrhosis of liver with ascites Abdominal pain Thrombocytopenia Pancytopenia Cirrhosis Hepatitis C virus infection Esophageal varices Pancytopenia Iron deficiency anemia Cirrhosis Hepatitis C HBP (high blood pressure) Surgical History S/P TIPS (transjugular intrahepatic portosystemic shunt) H/O left inguinal hernia repair H/O eye surgery History of esophagogastroduodenoscopy (EGD) H/O colonoscopy Family History Family History Maternal Grandmother Breast CA Uterus cancer Mother Primary lung cancer of unknown cell type Social History Social History Household Members: Other Household Members Other:: pt comes from a half-way Housing: Other Housing Other:: half-way Are you a primary career education teacher to a significant other at home: No Do you presently have visiting nurse or other home services: No Unable to assess alcohol history related to: Unable to respond Alcohol intake: former Comment: pt refusing alarm's Patient Tobacco Use Status: Current someday Tobacco user Tobacco use type: Cigarette Cigarette Packs Per Day: 1 Cigarettes Per Day: 0.5 Years Smoked: 30 e-Cigarette/Vaping Use: Currently Using Second Hand Smoke Exposure: No Substance Use Type: Crack/Cocaine and Marijuana Advance Directives: Yes Advance Directives on File: Yes Advance Directives Date on File: 04/02/24 Do you have a plan to hurt others: No Plan service: No Current occupational status: retired Physical Exam ED Exam Exam: He is lethargic but easily arousable Vital Signs: Vital Signs - 24 hr 05/22/25 14:08 Temperature 98.2 F Pulse Rate 62 Respiratory Rate 16 Blood Pressure 139/57 L Pulse Oximetry 100 Oxygen Delivery Method Room Air BMI result Body Mass Index 29.6 Const General: cooperative Nutritional Appearance: average body habitus HENMT Other: Right eye blindness Mouth: Normal oral and palatal mucosa present Neck Neck: Yes normal visual inspection Chest Chest palpation & inspection: normal inspection of the chest Resp Effort & Inspection: normal respiratory effort Auscultation: clear to auscultation bilaterally Cardio Jugular venous distension: no JVD Rate: regular rate Rhythm: regular rhythm GI Inspection: Yes normal to inspection Palpation (GI): Soft to palpation, not firm and nontender Auscultation: normal bowel sounds Skin General skin exam: no rashes or lesions noted and elasticity normal Neuro Other: Disoriented to time oriented to place Cranial nerves: Yes CN's II-XII intact bilaterally Course Reevaluation(s) Reevaluation #1: Patient appeared encephalopathic to my opinion he does not have capacity at this time I spoke with Eugenia proxy she will come to the hospital [phone] Time: 15:43 Medications Administered Discontinued Medications Generic Name Dose Route Start Last Admin Trade Name Samuel PRN Reason Stop Dose Admin Lactulose 10 gm 05/22/25 14:24 05/22/25 14:49 Lactulose 20 Gm/30 Ml Solution PO 05/22/25 14:25 10 gm ONCE ONE Administration Rifaximin 550 mg 05/22/25 15:16 05/22/25 15:43 Rifaximin 550 Mg Tablet PO 05/22/25 15:17 550 mg ONCE ONE Administration Medical Decision Making Medical Decision Making MDM Narrative: Patient presented with altered mental status most likely hepatic encephalopathy we will check ammonia labs Differential Diagnosis Differential Diagnoses: The differential diagnosis associated with the presentation includes Hepatic encephalopathy/CVA Consult Healthcare Provider Management of the patient was discussed with: Hospitalist Lab Data MDM Lab Attestation statement: I reviewed the patient's lab results. 05/22/25 14:41 05/22/25 14:41 Labs: Lab Results 05/22/25 Range/Units 14:41 WBC 1.8 L (4.8-10.8) X10*3/uL RBC 3.52 L (4.60-5.80) X10*6/uL Hgb 9.2 L (14.0-18.0) g/dl Hct 27.5 L (42.0-52.0) % MCV 78.1 L (80.0-98.0) fL MCH 26.1 L (27.0-33.0) pg MCHC 33.5 (31.0-36.0) g/dl RDW 14.2 (11.0-16.0) % Plt Count 32 L (160-400) X10*3/uL MPV Not Reportable Immature Gran % (Auto) 0.6 H (0.0-0.4) % Neut % (Auto) 56.9 (45-73) % Lymph % (Auto) 29.6 (20-40) % Crawford % (Auto) 10.6 (2-11) % Eos % (Auto) 1.7 (0-4) % Baso % (Auto) 0.6 (0-2) % Lymph # (Auto) 0.5 L (1.2-4.9) X10*3/uL Crawford # (Auto) 0.2 (0.1-1.2) X10*3/uL Eos # (Auto) 0.0 (0.0-0.4) X10*3/uL Baso # (Auto) 0.0 (0.0-0.2) X10*3/uL Abs Immat Gran (auto) 0.01 (0.00-0.03) X10*3/uL Absolute Neuts (auto) 1.0 L (2.0-8.3) x10*3/uL Absolute Nucleated RBC 0.000 (0.0-0.012) X10*3/uL Nucleated RBC % (auto) 0.0 (0.0-0.2) /100WBC Smear Tech's Comments VERIFIED Sodium 143 (135-145) mmol/L Potassium 4.2 (3.3-5.1) mmol/L Chloride 117 H (96-108) mmol/L Carbon Dioxide 22 (22-29) mmol/L Anion Gap 8 L (12-20) BUN 14 (9-16) mg/dL Creatinine 0.92 (0.5-1.4) mg/dL Estim Creat Clear Calc 100.1 Estimated GFR > 60 Random Glucose 87 (60-115) mg/dL Calcium 8.2 L (8.4-10.2) mg/dL Total Bilirubin 1.6 H (0.0-1.0) mg/dL AST 41 H (5-37) U/L ALT 25 (0-40) U/L Alkaline Phosphatase 126 H (39-117) U/L Ammonia 130 H (13-55) umol/L Troponin I High Sens 34.9 D (<3.5-35.0) ng/L Total Protein 6.4 L (6.5-8.0) g/dL Albumin 3.1 L (3.5-5.0) g/dL Ethyl Alcohol < 10 mg/dL Independent Interpretation I performed an independent interpretation of an: CT Scan Interpretation: NAD Radiology Impression Discussion of test interpretation with radiology: I have reviewed the radiologist's reading. Radiologist Impression: COMPARISON: May 02, 2025 TECHNIQUE: Contiguous axial imaging was performed from the skull base to vertex without intravenous administration of contrast. This CT examination was performed using dose optimization techniques as appropriate, variously including the following: *Automated exposure control *Adjustment of mA and/or kV according to patient size (this includes techniques or standardized protocols for targeted exams where dose is matched to indication/reason for exam; i.e. extremities or head) *Use of iterative reconstruction technique DLP: 682 mGY*cm FINDINGS: There is no acute ischemic change. There is no intracranial hemorrhage. There is no mass-effect or midline shift. Basal cisterns and ventricles are within normal limits for age/cerebral volume. 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 There is leftward deviation of the nasal septum and leftward bowing of the medial wall of maxillary sinus with a small left maxillary sinus containing small mucous retention cyst and mild mucosal thickening which has improved since the prior. External Record Review External record reviewed: Inpatient record Critical Care Time Critical Care Time Critical Care Time: Yes Total Critical Care Time: 60 Attestation: taking care of the pt Discharge Plan Discharge Clinical Impression: Acute hepatic encephalopathy Patient Disposition: Admitted As Inpatient
[2025-05-22 14:54] LABS: Hematocrit 27.5 % (42.0-52.0); Hemoglobin 9.2 g/dl (14.0-18.0); Imm Gran Abs Auto 0.01 X10*3/uL (0.00-0.03); Imm Gran Pct Auto 0.6 % (0.0-0.4); Lymphocytes Absolute Auto 0.5 X10*3/uL (1.2-4.9); MANUAL DIFF FLAG SCAN; Mean Corpuscular HGB Conc 33.5 g/dl (31.0-36.0); Mean Corpuscular Hemoglobin 26.1 pg (27.0-33.0); Mean Corpuscular Volume 78.1 fL (80.0-98.0); NRBC Abs Auto 0.000 X10*3/uL (0.0-0.012); NRBC Pct Auto 0.0 /100WBC (0.0-0.2); Platelet Count 32 X10*3/uL (160-400); Red Blood Count 3.52 X10*6/uL (4.60-5.80); SCAN SMEAR FLAG 1; White Blood Count 1.8 X10*3/uL (4.8-10.8)
[2025-05-22 14:59] LABS: Ammonia 130 umol/L (13-55)
[2025-05-22 15:08] LABS: Alanine Aminotransferase 25 U/L (0-40); Albumin Level 3.1 g/dL (3.5-5.0); Alkaline Phosphatase 126 U/L (39-117); Anion Gap 8 (12-20); Aspartate Amino Transferase 41 U/L (5-37); Blood Urea Nitrogen 14 mg/dL (9-16); Calcium 8.2 mg/dL (8.4-10.2); Carbon Dioxide 22 mmol/L (22-29); Chloride 117 mmol/L (96-108); Creatinine Clr Calc Pharmacy 100.1; Estimated Glomerular Filt Rate > 60; Potassium 4.2 mmol/L (3.3-5.1); Sodium 143 mmol/L (135-145); Total Protein 6.4 g/dL (6.5-8.0)
[2025-05-22 15:15] LABS: Troponin-I High Sensitivity 34.9 ng/L (<3.5-35.0)
--- NOTE | 2025-05-22 16:10 | PM.IMHP ---
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 Patient has frequent admissions for hepatic encephalopathy. Today was noted to be sitting in his underwear and sleepier than usual. He was sent to the ED and noted to have elevated ammonia of 130. He states he has about 1 bowel movement per day and that he is compliant with his lactulose. [facility] Medical History Portal vein thrombosis Eye abnormality Cirrhosis of liver Pancytopenia Hyperammonemia Pancytopenia Obesity (BMI 30.0-34.9) Fall Pancytopenia Hepatic encephalopathy Cirrhosis Splenic vein thrombosis Sepsis Cirrhosis of liver with ascites Abdominal pain Thrombocytopenia Pancytopenia Cirrhosis Hepatitis C virus infection Esophageal varices Pancytopenia Iron deficiency anemia Cirrhosis Hepatitis C HBP (high blood pressure) Family History Maternal Grandmother Breast CA Uterus cancer Mother Primary lung cancer of unknown cell type Surgical History S/P TIPS (transjugular intrahepatic portosystemic shunt) H/O left inguinal hernia repair H/O eye surgery History of esophagogastroduodenoscopy (EGD) H/O colonoscopy Social History Household Members: Other Household Members Other:: pt comes from a long-term Housing: Other Housing Other:: long-term Are you a primary resident care associate to a significant other at home: No Do you presently have visiting nurse or other home services: No Unable to assess alcohol history related to: Unable to respond Alcohol intake: former Comment: pt refusing alarm's Patient Tobacco Use Status: Current someday Tobacco user Tobacco use type: Cigarette Cigarette Packs Per Day: 1 Cigarettes Per Day: 0.5 Years Smoked: 30 e-Cigarette/Vaping Use: Currently Using Second Hand Smoke Exposure: No Substance Use Type: Crack/Cocaine and Marijuana Advance Directives: Yes Advance Directives on File: Yes Advance Directives Date on File: 04/02/24 Do you have a plan to hurt others: No Plan service: No Current occupational status: retired Meds Allergies Allergy/AdvReac Type Severity Reaction Status Date / Time dicyclomine (From Bentyl) Allergy Unknown Verified 05/22/25 14:10 aspirin AdvReac Severe stomach Verified 05/22/25 14:10 bleeding NSAIDS (Non-Steroidal AdvReac Severe liver Verified 05/22/25 14:10 Anti-Inflamma concerns Active Medications: Current Medications Acetaminophen (Acetaminophen 325 Mg Tablet) 650 mg PO Q6H PRN PRN Reason: Pain, Mild 1-3,fever,headache Calcium Carbonate (Calcium Carbonate 750 Mg Tab.Chew) 750 mg PO Q4H PRN PRN Reason: Heartburn Lactulose (Lactulose 20 Gm/30 Ml Solution) 20 gm PO TID LALI Magnesium Hydroxide (Milk Of Magnesia 30 Ml Oral.Susp) 30 ml PO DAILY PRN PRN Reason: Constipation Melatonin (Melatonin 3 Mg Tablet) 6 mg PO BEDTIME PRN PRN Reason: Insomnia Rifaximin (Rifaximin 550 Mg Tablet) 550 mg PO BID LALI Sodium Chloride (0.9 % Sodium Chloride Flush 3 Ml Syringe) 3 ml IVFLUSH QSHIFT [facility] Home Medications ?Medication ?Instructions ?Recorded ?Confirmed ?Last Taken ?Type carvedilol 6.25 mg tablet 6.25 mg PO BID 05/22/25 Unknown History ferrous gluconate 324 mg (38 mg 324 mg PO 3XW 05/22/25 Unknown History iron) tablet furosemide 40 mg tablet 40 mg PO QAM 05/22/25 Unknown History losartan 25 mg tablet 25 mg PO QAM 05/22/25 Unknown History Physical Exam Vital Signs and Narrative: Vital Signs: Last Vital Signs Temp 98.2 F 05/22/25 14:08 Pulse 62 05/22/25 14:08 Resp 16 05/22/25 14:08 BP 139/57 L 05/22/25 14:08 Pulse Ox 100 05/22/25 14:08 O2 Del Method Room Air 05/22/25 14:08 BMI result Body Mass Index 29.6 Alert oriented to person and place, has minimal insight able to express understanding of his liver cirrhosis and ammonia but does not really understand why he is in the hospital or mechanism of encephalopathy Lungs clear, abdomen soft nontender, asterixis, unsteady gait Results Labs 05/22/25 14:41 05/22/25 14:41 Labs: Laboratory Results - last 24 hr 05/22/25 14:41 MCV 78.1 L MCH 26.1 L MCHC 33.5 RDW 14.2 Plt Count 32 L MPV Not Reportable Immature Gran % (Auto) 0.6 H Neut % (Auto) 56.9 Lymph % (Auto) 29.6 [place] % (Auto) 10.6 Eos % (Auto) 1.7 Baso % (Auto) 0.6 Lymph # (Auto) 0.5 L [place] # (Auto) 0.2 Eos # (Auto) 0.0 Baso # (Auto) 0.0 Abs Immat Gran (auto) 0.01 Absolute Neuts (auto) 1.0 L Absolute Nucleated RBC 0.000 Nucleated RBC % (auto) 0.0 Smear Tech's Comments VERIFIED Anion Gap 8 L Estim Creat Clear Calc 100.1 Estimated GFR > 60 Random Glucose 87 Calcium 8.2 L Total Bilirubin 1.6 H AST 41 H ALT 25 Alkaline Phosphatase 126 H Ammonia 130 H Total Protein 6.4 L Albumin 3.1 L Ethyl Alcohol < 10 Imaging Radiologist's Impressions: Impressions Chest X-Ray 05/22/25 14:22 IMPRESSION: Low lung volumes. No acute cardiopulmonary process. Electronically signed by: Juliet Strong MD 05/22/2025 02:36 PM EDT RP Head CT 05/22/25 15:27 IMPRESSION: No acute intracranial abnormality. 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, chronic thrombocytopenia, hepatic encephalopathy, and HTN who was sent in from his long-term with confusion Acute metabolic encephalopathy due to hepatic encephalopathy due to decompensated HCV cirrhosis with chronic pancytopenia Lactulose, rifaximin Goal 2-3 bowel movements per day Hypertension Amlodipine, carvedilol History of varices Continue carvedilol DVT prophylaxis-mechanical due to thrombocytopenia Full Code Quality Stroke Does the patient have a stroke diagnosis?: No VTE Prior VTE?: No VTE Risk Level:: Medical - moderate - high VTE Device Contraindication: N/A - Device Ordered VTE Drug Contraindication: Treatment Not Tolerated
[2025-05-22 16:19] VITALS: BP 154/59; PULSE 67; RESP 16; O2SAT 100
--- NOTE | 2025-05-22 16:19 | PC.NURSE ---
Camera sitter initiated, VMT called by t/w to confirm camera is operational. Camera has clear visual of patient. Primary RN Luis to be made aware.
--- NOTE | 2025-05-22 16:47 | PHA.MEDREC ---
Pharmacy Consult ? Medication Reconciliation Pharmacy has completed the medication reconciliation. Patient was here and discharged yesterday and last week, used pharmacy claims and medical record to complete med rec.
--- OUTSIDE RECORDS SUMMARY | 2025-05-22 17:27 | XMS_ITS | Encounter Summary ---
Author Organization [employer] Address [address] [facility] 7t [place] [address] Care Team Providers Care Skip Miner Name Role Phone Leta Soto MD Primary Care Pro vider Yajaira Antonio Unavailable Encounter Details Date Type Department Care Team (Late st Contact Info) Description 11/11/2024 Telephone [facility] [address] [place] [address] Leta Soto MD [address] [place] [address] Social History Tobacco Use Types Packs/Day Years [...] with others, in a hotel, in a penitentiary, living outside on the street, on a [...] PM EST Tc from amrita stiles case operator requesting the status on pt documented in this encounter Plan of Treatment Upcoming Encounters Date Type Department Care Team (Late st Contact Info) Description 06/09/2025 9:45 AM EDT Office Visit [facility] [address] [place] [phone] Leta Soto MD [address] [place] [address] documented as of this encounter Goals Goal [...] documented as of this encounter Care Teams Skip Miner Relationship Specialty Start Date End Date Leta Soto MD [address] [place] [id number] PCP - General Internal Medicine 04/11/[address] 3rd [place] [address] Gastroenterology 09/04/24 [facility] 01/28/25 documented as of this encounter
--- OUTSIDE RECORDS SUMMARY | 2025-05-22 17:27 | XMS_ITS | Encounter Summary ---
Author Organization [employer] Address [address] [facility] 7t [place] [address] Care Team Providers Care Remedial Masseur Name Role Phone Leta Soto MD Primary Care Pro vider Yajaira Antonio Unavailable Encounter Details Date Type Department Care Team (Late st Contact Info) Description 03/23/2025 Results Follow-Up [facility] [address] [place] [address] Leta Soto MD [address] [place] [address] CT Head w/o Contrast, Ammonia, Plasma, Urinalysis, [...] 9:45 AM EDT Office Visit [facility] [address] [place] [address] Leta Soto MD [address] [place], [place] [phone] documented as of this encounter Goals Goal [...] documented as of this encounter Care Teams Remedial Masseur Relationship Specialty Start Date End Date Leta Soto MD [address] [place] [address] PCP - General Internal Medicine 04/11/23 Yajaira Antonio [address]rd [place] [address] Gastroenterology 09/04/24 [facility] Home Health 01/28/25 documented as of this encounter
--- OUTSIDE RECORDS SUMMARY | 2025-05-22 17:27 | XMS_ITS | Encounter Summary ---
Author Organization [employer] Address [address] [facility] 7t [place] [address] Care Team Providers Care Fisher Clam Name Role Phone Leta Soto MD Primary Care Pro vider Yajaira Antonio Unavailable Encounter Details Date Type Department Care Team (Late st Contact Info) Description 03/17/2025 Results Follow-Up [facility] [address] [place] [address] Leta Soto MD [address] [place] [address] XR Chest 2 Views Social History Tobacco [...] 9:45 AM EDT Office Visit [facility] [address] [place] [phone] Leta Soto MD [address] [place] [address] documented as of this encounter Goals Goal [...] documented as of this encounter Care Teams Fisher Clam Relationship Specialty Start Date End Date Leta Soto MD [address] [place] [phone] PCP - General Internal Medicine 04/11/23 Yajaira Antonio [address] [place] [address] 3rd [place] [address] Gastroenterology 09/04/24 [facility] Health 01/28/25 documented as of this encounter
--- OUTSIDE RECORDS SUMMARY | 2025-05-22 17:27 | XMS_ITS | Clinical Summary ---
Author Organization [facility] Address [address] [facility] [address] [place] [phone] Phone Care Team Providers Care Business Analytics Intern Name Role Phone Leta Soto MD Primary Care Pro vider Allergies Active Allergy Reactions Criticality Noted Date Comments Aspirin 04/20/2025 GI upset and bleeding Dicyclomine 05/26/2023 Ibuprofen 04/20/2025 GI upset Medications No known medications Encounters Date Type Department Care Team Description 04/20/2025 1:15 PM EDT Office Visit [facility] [address] [address] Michela Matt MD Cicatricial ectropion of right [...] Description 05/28/2025 10:00 AM EDT Pre-Admission Testing [facility] Pre Procedure Evaluation Center [address] [place] [phone] Michela Matt MD [address] [place] [phone] [email or web address] 06/11/2025 Procedure Pass [facility] [address] [place] [address] 06/11/2025 12:15 PM EDT Hospital Encounter [facility] [address] [place] [address] Michela Matt MD [address] [place] [phone] [email or web address] 06/11/2025 12:15 PM EDT - 06/11/2025 1:15 PM EDT Surgery [facility] [address] [place] [address] Michela Matt MD [address] [place] [phone] [email or web address] LATERAL TARSAL STRIP 06/29/2025 2:30 PM EDT Office Visit [address] [place] [address] Michela Matt MD [address] [place] [phone] [email or web address] Scheduled Procedures Name Priority Associated Diagnoses Date/Ti ar LATERAL TARSAL STRIP Ectropion of right upper [...] C3 ACO C3 ACO C3 ACO [facility] C3 ACO [facility] [phone] Care Teams Business Analytics Intern Relationship Specialty Start Date End Date Leta Soto MD [address] [place] [phone] PCP - General Internal Medicine 01/05/25 Additional Source Comments The information contained in this document represents components of the legal health record. It is not the complete legal health record.[facility]
--- OUTSIDE RECORDS SUMMARY | 2025-05-22 17:28 | XMS_ITS | Encounter Summary ---
Author Organization [employer] Address [address] [facility] 7t [place] [address] Care Team Providers Care Director Of Home Care Hospice Name Role Phone Leta Soto MD Primary Care Pro vider Yajaira Antonio Unavailable Encounter Details Date Type Department Care Team (Late st Contact Info) Description 12/17/2023 Orders Only [facility] [address] [place] [address] Tatyana Mosquera FNP [address] [place] [address] Social History Tobacco Use Types Packs/Day Years [...] Description 06/09/2025 9:45 AM EDT Office Visit [facility] MEDICINE [address] [place] [phone] Leta Soto MD [address] [place] [phone] documented as of this encounter Goals Goal [...] as of this encounter Care Teams Director Of Home Care Hospice Relationship Specialty Start Date End Date Leta Soto MD [address] [place] [address] PCP - General Internal Medicine 04/11/23 Yajaira Antonio [address]rd [place] [address] Gastroenterology 09/04/24 [facility] Home Health 01/28/25 documented as of this encounter
--- OUTSIDE RECORDS SUMMARY | 2025-05-22 17:28 | XMS_ITS ---
Author Organization [employer] Address [address] [facility] 7t [place] [address] Care Team Providers Care Waste Recycler Name Role Phone Leta Soto MD Primary Care Pro vider Yajaira Antonio Unavailable [facility] Status:Outreach In Progress (Enrolling) Start date:11/27/2024 Enrollment reason:Referred by provider Overview PCP Referral- 63-year-old male with HCV cirrhosis and multiple hospitalizations for hepatic encephalopathy with ongoing homelessness, poor health literacy. Needs support managing specialist appointments. Please outreach for enrollment. Case Team Name Relationship Phone Chata Puente(Responsible Staff) [phone] Continued Care and Services Coordination
--- OUTSIDE RECORDS SUMMARY | 2025-05-22 17:28 | XMS_ITS | Clinical Summary ---
Author Organization [employer] Address [address] [place] [address] Care Team Providers Care Rn Psych Name Role Phone Leta Soto MD Primary [...] 06/25/20 23 Active amLODIPine (Norvasc) 5 MG tabletIndication s:Essential [...] 28 DAYS 02/25/20 25 Active Blood Pressure kitIndications:H ypertension, unspecified type 1 Device Once per day. [...] 25 026 Active sildenafil (Viagra) 25 MG tabletIndication s:Essential hypertension Take 1 tablet (25 mg) by [...] DAILY 1350 mL 04/16/20 25 025 Discontinued Active Problems Problem Noted Date Diagnosed Date [...] his advocate PLAN: 1. Follow up with [facility]: Not recommended for follow-up 2. Patient goal is be connected to services 3. Behavioral Recommendations a. Patient will engage in service once established b. Patient may return to [facility] for medical needs until a PCP [...] Encounters Date Type Department Care Team Description 05/22/2025 Orders Only [facility] External Provider, [facility] 05/20/2025 Orders Only GENERIC EXTERNAL DATA DEPARTMENT Provider, Generic External Data 05/15/2025 Orders Only GENERIC EXTERNAL DATA DEPARTMENT Provider, Generic External Data 04/27/2025 Orders Only [facility] MEDICINE [address] [place] [phone] Veronica Miles RN 04/27/2025 Refill [facility] MEDICINE [address] [place] [phone] Leta Soto MD 04/22/2025 Telephone [facility] MEDICINE [address] [place] [address] [phone] Sadia Denny RN Medication Changes 04/22/2025 Orders Only [facility] MEDICINE [address] [place] [phone] Leta Soto MD 04/21/2025 Orders Only [facility] MEDICINE [address] [place] [address] [phone] Imelda Pfeiffer, CHANDU Healthcare maintenance 04/20/2025 Telephone [facility] MEDICINE [address] [place] [address] [phone] Leta Soto MD FYI 04/17/2025 9:20 AM EDT Office Visit [facility] WALK[facility] [address] [place] [phone] Leta Forte MD Essential hypertension (Primary Dx); Erectile dysfunction, unspecified erectile dysfunction type 04/17/2025 Travel 04/16/[address] [place] [address] Leta Soto MD 04/14/[address] [place] [address] Leta Soto MD DEPUTY CLERK Services (I called the patient at [phone], regarding his request for DEPUTY CLERK services, and reached a recording stating that the number is not in service. I then called [phone], and he stated that he needs assistance with transferring and walking, because he has swelling in his legs, and falls frequently. He also needs assistance with getting to appointments. I informed him that a construction sales representative from [facility] would be in contact with him, to schedule an evaluation. He is currently living at the [facility],) 04/13/2025 Results Follow-Up [address] Cervical Spine w/o Contrast 04/11/2025 Orders Only GENERIC EXTERNAL DATA DEPARTMENT Provider, Generic External Data 03/30/2025 Orders Only GENERIC EXTERNAL DATA DEPARTMENT Provider, Generic External Data 03/26/[address] [address] Sadia Denny RN Medication Compliance; Referral 03/24/2025 Orders Only GENERIC EXTERNAL DATA DEPARTMENT Provider, Generic External Data 03/24/[address] [address] Leta Soto MD 03/23/2025 Results Follow-Up [address] Head w/o Contrast, Ammonia, Plasma, Urinalysis, Complete, with Reflex to Culture, Additional followed-up results: 9 03/21/2025 Orders Only GENERIC EXTERNAL DATA DEPARTMENT Provider, Generic External Data 03/18/[address] [place] [address] Leta Soto MD 03/17/2025 Results Follow-Up [facility] [place], [place] [address] Leta Soto MD XR Chest 2 Views 03/17/2025 Telephone [facility] [place] [address] Yamel Khanna, RN Care Coordination 03/17/2025 Patient Outreach [facility] [place], [place] [address] Leta Soto MD 03/16/2025 Orders Only [facility] [place], [place] [address] Leta Soto MD 03/16/2025 Telephone [facility] [place], [place] [address] Leta Soto MD Image order 03/12/2025 10:00 AM EDT Office Visit [facility] [place], [place] [address] Leta Soto MD Hypertension, unspecified type (Primary [...] use; Syncope, unspecified syncope type 03/12/2025 Telephone [facility] [place], [place] [address] Leta Soto MD Prior Authorization 03/12/2025 Travel 03/11/2025 Telephone [facility] [place], [place] [address] Leta Soto MD Chart Prep 03/06/2025 Telephone [facility] [place] [address] Leta Soto MD FYI 02/26/2025 Orders Only GENERIC EXTERNAL DATA DEPARTMENT Provider, Generic External Data from Last 3 Months Immunizations Immunization Administration [...] is your housing situation today? I have brennastefanie dyer 03/12/[address] you [...] Description 06/09/2025 9:45 AM EDT Office Visit [facility] MEDICINE [address] [place] [address] Leta Soto MD [address] [place] [address] Health Maintenance Due Date Last Done Comments [...] Diagnosis Comments CT HEAD WO CONTRAST Routine 05/22/2025 3 :27 PM EDT SLIDE REVIEW Routine 05/22/2025 2:41 PM EDT HIGH SENSITIVITY TROPONIN I Routine 05/22/2025 2:41 PM EDT COMPREHENSIVE METABOLIC PANEL Routine 05/22/2025 2:41 PM EDT ETHANOL Routine 05/22/2025 2:41 PM EDT AMMONIA (P) Routine 05/22/2025 2:41 PM EDT CBC WITH AUTO DIFFERENTIAL Routine 05/22/2025 2:41 PM EDT XR CHEST 1 VIEW Routine 05/22/2025 2:22 PM EDT SLIDE REVIEW Routine 05/20/2025 11:19 AM EDT CBC WITH AUTO DIFFERENTIAL Routine 05/20/2025 11:19 AM EDT PHERESIS PLATELETS Routine 05/20/2025 10 :46 AM EDT TYPE AND SCREEN Routine 05/20/2025 10:46 AM EDT HIGH SENSITIVITY TROPONIN I Routine 05/15/2025 2:19 [...] Maintenance Results * CT Head w/o Contrast (05/22/2025 3:27 PM EDT) Only the most recent of3 resultswithin the time period is included. Anatomical Region Laterality Modality Head, Neck Computed Tomogra phy 05/22/2025 3:27 PM EDT Narrative 05/22/2025 3:54 PM EDT [place] [address] [address] Scan Report Signed Patient: Adelso Beebe MR#: [id number] : 1960 Acct:[id number] Age/Sex: 64 / M ADM Date: 05/22/25 Loc: .ED Attending Dr: Ordering Physician: Jorge Wang MD Date of Service: 05/22/25 Procedure(s): CT head/brain wo IV con Accession Number(s): [id number] cc: Jorge Wang MD; Leta Soto MD Report Number: [id number]: Total DLP = 682.00 mGy-cm Reason for Exam: altered mental status EXAMINATION: CT HEAD WITHOUT CONTRAST CLINICAL INFORMATION: Altered mental status COMPARISON: May 02, 2025 TECHNIQUE: Contiguous axial imaging was performed from the skull base to vertex without intravenous administration of contrast. This CT examination was performed using dose optimization techniques as appropriate, variously including the following: *Automated exposure control *Adjustment of mA and/or kV according to patient size (this includes techniques or standardized protocols for targeted exams where dose is matched to indication/reason for exam; i.e. extremities or head) *Use of iterative reconstruction technique DLP: 682 mGY*cm FINDINGS: There is no acute ischemic change. There is no intracranial hemorrhage. There is no mass-effect or midline shift. Basal cisterns and ventricles are within normal limits for age/cerebral volume. 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 There is leftward deviation of the nasal septum and leftward bowing of the medial wall of maxillary sinus with a small left maxillary sinus containing small mucous retention cyst and mild mucosal thickening which has improved since the prior. CT/CT head/brain wo IV con IMPRESSION: No acute intracranial abnormality. Electronically signed by: Adolfo Singh MD 05/22/2025 03:51 PM EDT RP Dictated By: Adolfo Singh MD Signed By: <Electronically signed by Adolfo Singh MD in OV> 05/22/25 1551 DD/ 1527 TD/TT: 05/22/25 1541 Shearing Machine Operator: Procedure Note Donotuseinterpreter, Image - 05/22/[address] [address] [address] Scan Report Signed Patient: Adelso BeebeMR#: [id number] : 1960cct:[id number] Age/Sex: 64 / MADM Date: 05/22/25 Loc: .ED Attending Dr: Ordering Physician: Jorge Wang MD Date of Service: 05/22/25 Procedure(s): CT head/brain wo IV con Accession Number(s): [id number] cc: Jorge Wang MD; Leta Soto MD Report Number: [id number]: Total DLP = 682.00 mGy-cm Reason for Exam: altered mental status EXAMINATION: CT HEAD WITHOUT CONTRAST CLINICAL INFORMATION: Altered mental status COMPARISON: May 02, 2025 TECHNIQUE: Contiguous axial imaging was performed from the skull base to vertex without intravenous administration of contrast. This CT examination was performed using dose optimization techniques as appropriate, variously including the following: *Automated exposure control *Adjustment of mA and/or kV according to patient size (this includes techniques or standardized protocols for targeted exams where dose is matched to indication/reason for exam; i.e. extremities or head) *Use of iterative reconstruction technique DLP: 682 mGY*cm FINDINGS: There is no acute ischemic change. There is no intracranial hemorrhage. There is no mass-effect or midline shift. Basal cisterns and ventricles are within normal limits for age/cerebral volume. 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 There is leftward deviation of the nasal septum and leftward bowing of the medial wall of maxillary sinus with a small left maxillary sinus containing small mucous retention cyst and mild mucosal thickening which has improved since the prior. CT/CT head/brain wo IV con IMPRESSION: No acute intracranial abnormality. Electronically signed by: Adolfo Singh MD 05/22/2025 03:51 PM EDT Dictated By: Adolfo Singh MD Signed By: <Electronically signed by Adolfo Singh MD in OV> 05/22/25 1551 DD/ 1527 TD/TT: 05/22/25 1541 Shearing Machine Operator: [facility] External Provider IMG CT PROCEDURES Final Result * Slide Review (05/22/2025 2:41 PM EDT) Only the most recent of4 resultswithin the time period is included. Slide Review VERIFIED [facility] 05/22/2025 2:41 PM EDT 05/22/2025 2:45 PM EDT Generic External Data Provider LAB BLOOD ORDERAB LES Final Result Performing Organization Address [facility] de Phone Number [facility] [address] [place] [phone] * High Sensitivity Troponin I (05/22/2025 2:41 PM EDT) Only the most recent of3 resultswithin the time period is included. [facility] TROPONIN I HIGH SENSITIVITY 34.9 <3.5 - 35.0 ng/L [facility] Comment:The Clifford high sens itivity Troponin-I results should beused in conjunction with other diagnostic information suchas ECG, clinical observations and information, and patientsymptoms to aid in the diagnosis of CO. 05/22/2025 2:41 PM EDT 05/22/2025 2:45 PM EDT Generic External Data Provider LAB BLOOD ORDERAB LES Final Result Performing Organization Address [facility] de Phone Number [facility] [address] [place] [phone] * Ethanol (05/22/2025 2:41 PM EDT) Only the most recent of4 resultswithin the time period is included. [facility] ETHANOL (MG/DL) IN SER/PLAS <10 mg/dL [facility] Comment:Serum/plasma ethanol results are to be used formedical/treatment purposes only. 05/22/2025 2:41 PM EDT 05/22/2025 2:45 PM EDT Generic External Data Provider LAB BLOOD ORDERAB LES Final Result Performing Organization Address [facility] de Phone Number [facility] [address] [place] [phone] * (ABNORMAL) CBC auto differential (05/22/2025 2:41 PM EDT) Only the most recent of5 resultswithin the time period is included. [facility] White Blood Count 1.8(L) 4.8 - 10.8 X10*3/uL [facility] Red Blood Count 3.52(L) 4.60 - 5.80 X10*6/uL [facility] Hemoglobin 9.2(L) 14.0 - 18.0 g/dl [facility] Hematocrit 27.5(L) 42.0 - 52.0 % [facility] Mean Corpuscular Volume 78.1(L) 80.0 - 98.0 fL [facility] Mean Corpuscular Hemoglobin 26.1(L) 27.0 - 33.0 pg [facility] Mean Corpuscular HGB Conc 33.5 31.0 - 36.0 g/dl [facility] Red Cell Distribution Width 14.2 11.0 - 16.0 % [facility] Platelet Count 32(L) 160 - 400 X10*3/uL [facility] Neutrophils Percent Auto 56.9 45 - 73 % [facility] Imm Gran Pct Auto 0.6(H) 0.0 - 0.4 % [facility] Lymphocytes Percent Auto 29.6 20 - 40 % [facility] Monocytes Percent Auto 10.6 2 - 11 % [facility] Eosinophils Percent Auto 1.7 0 - 4 % [facility] Basophils Percent Auto 0.6 0 - 2 % [facility] NRBC Pct Auto 0.0 0.0 - 0.2 /100WBC [facility] Neutrophils Absolute Auto 1.0(L) 2.0 - 8.3 x10*3/uL [facility] Imm Gran Abs Auto 0.01 0.00 - 0.03 X10*3/uL [facility] Lymphocytes Absolute Auto 0.5(L) 1.2 - 4.9 X10*3/uL [facility] Monocytes Absolute Auto 0.2 0.1 - 1.2 X10*3/uL [facility] Eosinophils Absolute Auto 0.0 0.0 - 0.4 X10*3/uL [facility] Basophils Absolute Auto 0.0 0.0 - 0.2 X10*3/uL [facility] NRBC Abs Auto 0.000 0.0 - 0.012 X10*3/uL [facility] 05/22/2025 2:41 PM EDT 05/22/2025 2:45 PM EDT Generic External Data Provider LAB BLOOD ORDERAB LES Edited Result - Final Performing Organization Address [facility]/ZIP Co de Phone Number [facility] [address] [place] [phone] * (ABNORMAL) Ammonia, Plasma (05/22/2025 2:41 PM EDT) Only the most recent of4 resultswithin the time period is included. Ammonia (P) 130(H) 13 - 55 umol/L [facility] 05/22/2025 2:41 PM EDT 05/22/2025 2:45 PM EDT Generic External Data Provider LAB BLOOD ORDERAB LES Final Result Performing Organization Address [facility]/ZIP Co de Phone Number [facility] [address] [place] [phone] * (ABNORMAL) Comprehensive Metabolic Panel (05/22/2025 2:41 PM EDT) Only the most recent of4 resultswithin the time period is included. Sodium 143 135 - 145 mmol/L [facility] Potassium 4.2 3.3 - 5.1 mmol/L [facility] Chloride 117(H) 96 - 108 mmol/L [facility] Carbon Dioxide 22 22 - 29 mmol/L [facility] Anion Gap 8(L) 12 - 20 [facility] Urea Nitrogen (BUN) 14 9 - 16 mg/dL [facility] Creatinine, Serum 0.92 0.5 - 1.4 mg/dL [facility] Creatinine Clr Calc Pharmacy 100.1 [facility] Comment:eGFR (calculated fro m the MDRD study equation) and eCrCl(calculated from the Cockcroft-Gault equation) are based ondifferent parameters and may not yield comparable results.If eCrCl result is absurd, please check patient'sheight/weight. Estimated Glomerular Filt Rate >60 [facility] Comment:Chronic Kidney Disea se: Estimated GFR < 60 mL/min/1.65b8Tmkgsa Kidney Disease: Estimated GFR < 15 mL/min/1.73m2 Glucose 87 60 - 115 mg/dL [facility] Calcium 8.2(L) 8.4 - 10.2 mg/dL [facility] Bilirubin, Total 1.6(H) 0.0 - 1.0 mg/dL [facility] Comment:Slight Icterus. Aspartate Amino Transferase 41(H) 5 - 37 U/L [facility] Alanine Aminotransferase 25 0 - 40 U/L [facility] Total Protein 6.4(L) 6.5 - 8.0 g/dL [facility] Albumin Level 3.1(L) 3.5 - 5.0 g/dL [facility] Alkaline Phosphatase 126(H) 39 - 117 U/L [facility] 05/22/2025 2:41 PM EDT 05/22/2025 2:45 PM EDT us Generic External Data Provider LAB BLOOD ORDERAB LES Final Result [facility] [address] [place] [address] [phone] * XR Chest 1 View (05/22/2025 2:22 PM EDT) Only the most recent of2 resultswithin the time period is included. Anatomical Region Laterality Modality Chest Radiographic Susy ging 05/22/2025 2:22 PM EDT Narrative 05/22/2025 2:39 PM EDT [address] [address] XRay Report Signed Patient: Adelso Beebe MR#: [id number] : 1960 Acct:[id number] Age/Sex: 64 / M ADM Date: 05/22/25 Loc: HO.ED Attending Dr: Ordering Physician: Jorge Wang MD Date of Service: 05/22/25 Procedure(s): XR chest 1V Accession Number(s): [id number] cc: Jorge Wang MD; Leta Soto MD Reason for Exam: cough EXAMINATION: XR CHEST CLINICAL INFORMATION: cough COMPARISON: Chest radiograph on May 16, 2025 TECHNIQUE: Frontal view of the chest was obtained. FINDINGS: Patient's chin partially limits evaluation of the lung apices. Low lung volumes. No confluent consolidation. No pneumothorax or pleural effusion. Cardiomediastinal silhouette is within normal limits. Osseous structures appear intact. XR/XR chest 1V IMPRESSION: Low lung volumes. No acute cardiopulmonary process. Electronically signed by: Juliet Strong MD 05/22/2025 02:36 PM EDT RP Dictated By: Juliet Strong MD Signed By: <Electronically signed by Juliet Strong MD in OV> 05/22/25 1436 DD/ 1422 TD/TT: 05/22/25 1432 Shearing Machine Operator: Procedure Note Donotuseinterpreter, Image - 05/22/[address] [address] XRay Report Signed Patient: Adelso BeebeMR#: [id number] : 1960cct:[id number] Age/Sex: 64 / MADM Date: 05/22/25 Loc: .ED Attending Dr: Ordering Physician: Jorge Wang MD Date of Service: 05/22/25 Procedure(s): XR chest 1V Accession Number(s): [id number] cc: Jorge Wang MD; Leta Soto MD Reason for Exam: cough EXAMINATION: XR CHEST CLINICAL INFORMATION: cough COMPARISON: Chest radiograph on May 16, 2025 TECHNIQUE: Frontal view of the chest was obtained. FINDINGS: Patient's chin partially limits evaluation of the lung apices. Low lung volumes. No confluent consolidation. No pneumothorax or pleural effusion. Cardiomediastinal silhouette is within normal limits. Osseous structures appear intact. XR/XR chest 1V IMPRESSION: Low lung volumes. No acute cardiopulmonary process. Electronically signed by: Juliet Strong MD 05/22/2025 02:36 PM EDT RP Dictated By: Juliet Strong MD Signed By: <Electronically signed by Juliet Strong MD in OV> 05/22/25 1436 DD/ 1422 TD/TT: 05/22/25 1432 Shearing Machine Operator: [facility] External Provider IMG XR PROCEDURES Final Result * Pheresis Platelets (05/20/2025 10:46 AM EDT) Pheresis Platelets [id number] AP PHPLT TRANSFUSED 05/21/25 1333 [id number] AP PHPLT TRANSFUSED 05/21/25 1223 [facility] 05/20/2025 10:4 6 AM EDT 05/20/2025 11:19 AM EDT Generic External Data Provider LAB BLOOD BANK TE ST ORDERABLES Final Result [facility] [address] [place] [phone] * Type and screen (05/20/2025 10:46 AM EDT) Only the most recent of2 resultswithin the time period is included. Blood Type ON [facility] Antibody Screen NEGATIVE [facility] 05/20/2025 10:4 6 AM EDT 05/20/2025 11:19 AM EDT Narrative [facility] - 05/21/2025 1:43 PM EDT WITNESSED BY SARAH.NURSING:Call Blood Bank (ext. [phone]) to band patient on admission.Type and Screen in effect until 2300 on 05/23/25.mL/HR Rate to transfuse BBK Product 100 Results at Issue Units as of 05/21/25 1225 ...Test View Group: Most Recent Platelet Count LABORATORYDate Time Test Result Flag Normal Range05/21/25 1022 PLT PENDING RECEIPT 160-400 X10*3/uL Results at Issue Units as of 05/21/25 1334 ...Test View Group: Most Recent Platelet Count LABORATORYDate Time Test Result Flag Normal Range05/21/25 1022 PLT PENDING RECEIPT 160-400 X10*3/uL Plt <75,000No us Generic External Data Provider LAB BLOOD BANK TE ST ORDERABLES Final Result [facility] [address] [place] [phone] * Urinalysis, Complete, with Reflex to Culture (05/15/2025 2:19 PM EDT) Only the most recent of3 resultswithin the time period is included. Color Urine Yellow [facility] Appearance Urine Clear [facility] PH 8.0 5.0 - 9.0 [facility] Glucose Urine UA Negative Negative mg/dL [facility] Urine Blood Negative Negative [facility] Specific [place] - Urine 1.010 1.005 - 1.025 [facility] Urine Protein Negative Neg-Trace mg/dL [facility] Urine Ketones Negative Negative mg/dL [facility] Nitrite Urine Negative Negative [facility] Leukocyte Esterase Urine Negative Negative [facility] RBC Urine 0-2 0 - 2 /HPF [facility] Urine WBC 0-5 0 - 5 /HPF [facility] Urine Squamous Epithelial Cell 0-2 0 - 2 /HPF [facility] Urine Bacteria None Seen None Seen [facility] Hyaline Casts, Urine 0-2 0 - 2 /LPF [facility] 05/15/2025 2:19 PM EDT 05/15/2025 2:33 PM EDT Narrative [facility] - 05/15/2025 2:44 PM EDT Urine, Clean Catch us Generic External Data Provider LAB URINE ORDERAB LES Final Result Performing Organization Address [facility]/ZIP Co de Phone Number [facility] [address] [place] [phone] * (ABNORMAL) B Type Natriuretic Peptide (BNP) (05/15/2025 2:19 PM EDT) Pathologist [facility] B Type Natriuretic Peptide 178(H) <100 pg/mL [facility] 05/15/2025 2:19 PM EDT 05/15/2025 2:33 PM EDT Generic External Data Provider LAB BLOOD ORDERAB LES Final Result Performing Organization Address [facility] Co de Phone Number [facility] [address] [place] [phone] * (ABNORMAL) Prothrombin Time-INR (05/15/2025 11:23 AM EDT) Only the most recent of2 resultswithin the time period is included. Prothrombin Time 16.1(H) 10.9 - 12.4 SEC [facility] INTERNATIONAL NORM RATIO 1.4(H) 0.9 - 1.1 [facility] Comment:INTERNATIONAL NORMAL IZED RATIO (INR) [...] ORDERAB LES Final Result Performing Organization Address [facility]/ZIP Co de Phone Number [facility] [address] [place] [phone] * Syphilis Screen (04/21/2025 10:43 AM EDT) Pathologist [facility] Syphilis Screen Nonreactive Nonreactive [facility] 04/21/2025 10:4 3 AM EDT 04/21/2025 1:18 PM EDT Leta Dick MD LAB BLOOD ORDERAB LES Final Result Performing Organization Address [facility] Co de Phone Number [facility] [address] [place] [address] [phone] * Hepatitis C Viral RNA, Quantitative, Real-Time PCR (04/21/2025 10:43 AM EDT) Pathologist [facility] Hepatitis C Viral Load <15 NOT DETECTED NOT DETECTED IU/mL [facility] HCV Log PCR <1.18 NOT DETECTED NOT DETECTED Log IU/mL [facility] Comment:For additional infor tash, please refer tohttp://education.PivotLink/faq/RNG42h3(This link is being provided for informational/educational purposes only.)THIS TEST WAS PERFORMED AT:[facility] [place] [phone] STRICKLAND MD 04/21/2025 10:4 3 AM EDT 04/22/2025 8:54 AM EDT Leta Dick MD LAB BLOOD ORDERAB LES Final Result Performing Organization Address [facility] Co de Phone Number [facility] [address] [place] [phone] * (ABNORMAL) Hepatitis C Antibody with Reflex to HCV, RNA, Quantitative, Real- Time PCR (04/21/2025 10:43 AM EDT) Pathologist [facility] Hepatitis C Antibody Reactive( A) Nonreactive [facility] Comment:Presumptive evidence of antibodies to HCV. 04/21/2025 10:4 3 AM EDT 04/21/2025 1:18 PM EDT Leta Dick MD LAB BLOOD ORDERAB LES Final Result Performing Organization Address [facility] Co de Phone Number [facility] [address] [place] [phone] * HIV-1 RNA, Quantitative, Real-Time PCR (04/21/2025 10:43 AM EDT) [facility] HIV RNA PCR Qn Copies NOT DETECTED NOT DETECTED copies/mL [facility] HIV RNA PCR Qn Log Copies NOT DETECTED NOT DETECTED [facility] Comment:Result Units: Log co pies/mLThis test was performed using Real-Time Polymerase ChainReaction.Reportable Range: 20 copies/mL to 10,000,000 copies/mL(1.30 log copies/mL to 7.00 log copies/mL).THIS TEST WAS PERFORMED AT:[email or web address] [address] [phone] STRICKLAND MD 04/21/2025 10:4 3 AM EDT 04/21/2025 1:18 PM EDT Leta Dick MD LAB BLOOD ORDERAB LES Final Result Performing Organization Address [facility] Co de Phone Number [facility] [address] [place] [phone] * RPR (Monitor) with Reflex to??Titer (04/21/2025 10:43 AM EDT) RPR (Monitor) w/Refl Titer NON-REACTI VE NON-REACT [place] [facility] Comment:THIS TEST WAS PERFOR MED AT:[employer] [place] [phone] STRICKLAND MD Rapid Plasma Reagin Ab Titer TNP [facility] 04/21/2025 10:4 3 AM EDT 04/21/2025 1:18 PM EDT Leta Dick MD LAB BLOOD ORDERAB LES Final Result Performing Organization Address [facility] Co de Phone Number [facility] [address] [place] [phone] * Chlamydia/Gonorrhea Throat Swab ([place] [facility]) (04/21/2025) Chlamydia Throat Swab Negative Gonorrhea Throat [...] URINE ORDERABLES Robyn l Result * CT Cervical Spine w/o Contrast (04/12/2025 12:26 AM EDT) Anatomical Region Laterality Modality Spine, C-spine Computed Tomogra phy 04/12/2025 12:2 6 AM EDT Narrative 04/12/2025 12:28 AM EDT [address] [address] [address] Scan Report Signed Patient: Adelso Beebe MR#: [id number] : 1960 Acct:[id number] Age/Sex: 64 / M ADM Date: 04/11/25 Loc: HO.ED Attending Dr: Ordering Physician: Cash Reno MD Date of Service: 04/11/25 Procedure(s): CT cervical spine wo IV con Accession Number(s): [id number] cc: Cash Reno MD; [facility] Report Number: [id number]: Total DLP = 462.38 mGy-cm CLINICAL HISTORY: [...] MD in OV> 04/12/2526 DD/ TD/TT: 04/12/2525 Shearing Machine Operator: Procedure Note Donotuseinterpreter, Image - 04/12/[address] [address] [address] Scan Report Signed Patient: Adelso BeebeMR#: [id number] : 1960cct:[id number] Age/Sex: 64 / MADM Date: 04/11/25 Loc: HO.ED Attending Dr: Ordering Physician: Cash Reno MD Date of Service: 04/11/25 Procedure(s): CT cervical spine wo IV con Accession Number(s): [id number] cc: Cash Reno MD; [facility] Report Number: [id number]: Total DLP = 462.38 mGy-cm CLINICAL HISTORY: [...] 04/12/25 0027 DD/ 0026 TD/TT: 04/12/25 0026 Shearing Machine Operator: [facility] External Provider IMG CT PROCEDURES Final Result * Magnesium (04/11/2025 11:22 PM EDT) Only the most recent of3 resultswithin the time period is included. Magnesium 2.0 1.6 - 2.6 mg/dL [facility] 04/11/2025 11:2 2 PM EDT 04/11/2025 11:26 PM EDT Generic External Data Provider LAB BLOOD ORDERAB LES Final Result [facility] [address] [place] [phone] * Urinalysis w/reflex microscopic (03/30/2025 5:24 PM EDT) Color Urine Dark Yellow [facility] Appearance Urine Clear [facility] PH 6.0 5.0 - 9.0 [facility] Glucose Urine UA Negative Negative mg/dL [facility] Urine Blood Negative Negative [facility] Specific [place] - Urine 1.025 1.005 - 1.025 [facility] Urine Protein Negative Neg-Trace mg/dL [facility] Urine Ketones Trace Negative mg/dL [facility] Nitrite Urine Negative Negative [facility] Leukocyte Esterase Urine Negative Negative [facility] 03/30/2025 5:24 PM EDT 03/30/2025 5:31 PM EDT Narrative [facility] - 03/30/2025 5:42 PM EDT [id number], Clean Catch us Generic External Data Provider LAB URINE ORDERAB LES Final Result Performing Organization Address City/State/[facility] Co de Phone Number [facility] [address] [place] [phone] * XR Knee 1-2 Views Right (03/30/2025 3:18 PM EDT) Anatomical Region Laterality Modality Lower Extremities, Knee Right Radiogra phic Imaging 03/30/2025 3:18 PM EDT Narrative 03/30/2025 4:30 PM EDT [address] [address] XRay Report Signed Patient: Adelso Beebe MR#: [id number] : 1960 Acct:[id number] Age/Sex: 64 / M ADM Date: 03/30/25 Loc: HO.ED Attending Dr: Ordering Physician: Jorge Wang MD Date of Service: 03/30/25 Procedure(s): XR knee RT 2V Accession Number(s): [id number] cc: Jorge Wang MD; Leta Soto MD [...] 03/30/25 1626 DD/ 1518 TD/TT: 03/30/25 1618 Shearing Machine Operator: Procedure Note Donotuseinterpreter, Image - 03/30/[address] [address] XRay Report Signed Patient: Adelso BeebeMR#: [id number] : 1960cct:[id number] Age/Sex: 64 / MADM Date: 03/30/25 Loc: .ED Attending Dr: Ordering Physician: Jorge Wang MD Date of Service: 03/30/25 Procedure(s): XR knee RT 2V Accession Number(s): [id number] cc: Jorge Wang MD; Leta Soto MD [...] 03/30/25 1626 DD/ 1518 TD/TT: 03/30/25 1618 Shearing Machine Operator: us [facility] External Provider IMG XR PROCEDURES Final Result * XR Hip right with Pelvis 1 view (03/30/2025 3:17 PM EDT) Anatomical Region Laterality Modality Lower Extremities, Hip Bilateral Radiograp hic Imaging 03/30/2025 3:17 PM EDT Narrative 03/30/2025 4:30 PM EDT [address] [address] XRay Report Signed Patient: Adelso Beebe MR#: [id number] : 1960 Acct:[id number] Age/Sex: 64 / M ADM Date: 03/30/25 Loc: .ED Attending Dr: Ordering Physician: Jorge Wang MD Date of Service: 03/30/25 Procedure(s): XR hip RT w PEL1V Accession Number(s): [id number] cc: Jorge Wang MD; Leta Soto MD [...] Hale MD in OV> 03/30/25 1628 DD/ TD/TT: 03/30/25 1618 Shearing Machine Operator: Procedure Note Donotuseinterpreter, Image - 03/30/[address] [address] XRay Report Signed Patient: Adelso BeebeMR#: [id number] : 1960cct:[id number] Age/Sex: 64 / MADM Date: 03/30/25 Loc: HO.ED Attending Dr: Ordering Physician: Jorge Wang MD Date of Service: 03/30/25 Procedure(s): XR hip RT w PEL1V Accession Number(s): [id number] cc: Jorge Wang MD; Leta Soto MD [...] 03/30/25 1628 DD/ 1517 TD/TT: 03/30/25 1618 Shearing Machine Operator: [facility] External Provider IMG XR PROCEDURES Final Result * US Abdomen Limited (03/26/2025 10:11 AM EDT) Anatomical Region Laterality Modality Abdomen Ultrasound 03/26/2025 10:1 1 AM EDT Narrative 03/26/2025 11:08 AM EDT [address] [address] Ultrasound Report Signed Patient: Adelso Beebe MR#: [id number] : 1960 Acct:[id number] Age/Sex: 64 / M ADM Date: 03/24/25 Loc: HO.[facility] 450-[address]: Getachew Vega MD Ordering Physician: Getachew Vega MD Date of Service: 03/26/25 Procedure(s): US abdomen limited Accession Number(s): [id number] cc: Getachew Vega MD; Leta Soto MD [...] 03/26/25 1105 DD/ 1011 TD/TT: 03/26/25 1028 Shearing Machine Operator: Procedure Note Donotuseinterpreter, Image - 03/26/[address] [address] Ultrasound Report Signed Patient: Adelso BeebeMR#: [id number] : 1960cct:[id number] Age/Sex: 64 / MADM Date: 03/24/25 Loc: [facility] 450-[address]: Getachew Vega MD Ordering Physician: Getachew Vega MD Date of Service: 03/26/25 Procedure(s): US abdomen limited Accession Number(s): [id number] cc: Getachew Vega MD; Leta Soto MD [...] MD 03/26/2025 11:05 AM EDT Dictated By: aRo Hale MD Signed By: <Electronically signed by Rao Hale MD in OV> 03/26/25 1105 DD/ 1011 TD/TT: 03/26/25 1028 Shearing Machine Operator: us [facility] External Provider IMG US PROCEDURES Edited Result - Final * MR Brain w/o Contrast (03/24/2025 6:18 PM EDT) Anatomical Region Laterality Modality Brain Magnetic Resonan ce 03/24/2025 6:18 PM EDT Narrative 03/24/2025 6:19 PM EDT [address] [address] Magnetic Resonance Report Signed Patient: Adelso Beebe MR#: [id number] : 1960 Acct:[id number] Age/Sex: 64 / M ADM Date: 03/24/25 Loc: HO.ED Attending Dr: Ordering Physician: Edwin Davis MD Date of Service: 03/24/25 Procedure(s): MR head/brain wo con Accession Number(s): [id number] cc: Leta Soto MD; Edwin Davis MD [...] in OV> 03/24/251818 DD/ 17 TD/TT: 03/24/251817 Shearing Machine Operator: Procedure Note Donotuseinterpreter, Image - 03/24/2025 [place] [address] Magnetic Resonance Report Signed Patient: Adelso Beebe#: [id number] : 1960cct:[id number] Age/Sex: 64 / MADM Date: 03/24/25 Loc: HO.ED Attending Dr: Ordering Physician: Edwin Davis MD Date of Service: 03/24/25 Procedure(s): MR head/brain wo con Accession Number(s): [id number] cc: Leta Soto MD; Edwin Davis MD [...] in OV> 03/24/251818 DD/ 17 TD/TT: 03/24/251817 Shearing Machine Operator: [facility] External Provider IMG MRI PROCEDURES Final Result * (ABNORMAL) VENOUS BLOOD GAS (03/24/2025 2:32 PM EDT) VBG pH 7.54(H) 7.32 - 7.43 [facility] Comment:METER #: [id number] additional_comment: Cb rogalt VBG PCO2 25 mmHg [facility] Comment:METER #: [id number] additional_comment: Cb rogalt VBG PO2 99 mmHg [facility] Comment:METER #: [id number] additional_comment: Cb rogalt VBG Base Excess 0.3 mmol/L [facility] Comment:METER #: [id number] additional_comment: Cb rogalt VBG HCO3 21(L) 22 - 26 mmol/L [facility] Comment:METER #: [id number] additional_comment: Cb felicityalt O2 Sat, [place] 100.0 % [facility] Comment:METER #: [id number] additional_comment: Cb felicityalt 03/24/2025 2:32 PM EDT 03/24/2025 2:37 PM EDT Generic External Data Provider LAB BLOOD ORDERAB LES Final Result Performing Organization Address City/[facility] Co de Phone Number [facility] [address] [place] [phone] * Lipase (03/21/2025 12:11 PM EDT) Lipase 41 8 - 78 U/L [facility] 03/21/2025 12:1 1 PM EDT 03/21/2025 12:14 PM EDT Generic External Data Provider LAB BLOOD ORDERAB LES Final Result Performing Organization Address City/[facility]/ZIP Co de Phone Number [facility] [address] [place] [phone] * Lactic Acid (03/21/2025 12:11 PM EDT) Lactic Acid 1.6 0.5 - 2.0 mmol/L [facility] 03/21/2025 12:1 1 PM EDT 03/21/2025 12:14 PM EDT Generic External Data Provider LAB BLOOD ORDERAB LES Final Result Performing Organization Address [facility] Co de Phone Number [facility] [address] [place] [phone] * Glucose, Whole Blood (03/21/2025 10:55 AM EDT) Glucose, Whole Blood 83 60 - 115 mg/dL [facility] Comment:METER #: [id number] 03/21/2025 10:5 5 AM EDT 03/23/2025 8:12 AM EDT Generic External Data Provider LAB BLOOD ORDERAB LES Final Result Performing Organization Address [facility] Co de Phone Number [facility] [address] [place] [phone] * XR Chest 2 Views (03/17/2025 8:06 AM EDT) Anatomical Region Laterality Modality Chest Radiographic Susy ging 03/17/2025 8:06 AM EDT Narrative 03/17/2025 9:11 AM EDT [address] [address] XRay Report Signed Patient: Adelso Beebe MR#: [id number] : 1960 Acct:[id number] Age/Sex: 64 / M ADM Date: 03/17/25 Loc: [facility] Attending Dr: Leta Dick MD Ordering Physician: Leta Soto MD Date of Service: 03/17/25 Procedure(s): XR chest 2V Accession Number(s): [id number] cc: Leta Soto MD EXAMINATION: XR CHEST [...] Hale MD in OV> 03/17/25 0909 DD/ 0806 TD/TT: 03/17/25 0858 Shearing Machine Operator: Procedure Note Donotuseinterpreter, Image - 03/17/[address] [address] XRay Report Signed Patient: Adelso BeebeMR#: [id number] : 1960cct:[id number] Age/Sex: 64 / MADM Date: 03/17/25 Loc: HO.[facility] Attending Dr: Leta Dikc MD Ordering Physician: Leta Soto MD Date of Service: 03/17/25 Procedure(s): XR chest 2V Accession Number(s): [id number] cc: Leta Soto MD EXAMINATION: XR CHEST [...] OV> 03/17/2509 DD/ 0806 TD/TT: 03/17/25 0858 Shearing Machine Operator: [facility] CenterAmrionRomelia Dick MD IMG XR PROCEDURES Edited Result - Final * Drug Monitoring, Panel 1, Screen, Urine (02/26/2025 2:17 PM EDT) Opiate Screen Urine Not Detected Not Detect [facility] Comment:Opiate cut-off is 30 0 ng/mL.Positive results are unconfirmed and should not be used fornon-medical purposes. Barbiturates, Urine Not Detected Not Detect [facility] Comment:Barbiturate cut-off is 200 ng/mL.Positive results are unconfirmed and should not be used fornon-medical purposes. Phencyclidine Screen Urine Not Detected Not Detect [facility] Comment:Phencyclidine cut-of f is 25 ng/mL.Positive results are unconfirmed and should not be used fornon-medical purposes. Amphetamine Screen Urine Not Detected Not Detect [facility] Comment:Amphetamine cut-off is 1000 ng/mL.Positive results are unconfirmed and should not be used fornon-medical purposes. Benzodiazepines Screen Urine Not Detected Not Detect [facility] Comment:Benzodiazepine cut-o ff is 200 ng/mL.Positive results are unconfirmed and should not be used fornon-medical purposes. Cocaine Screen Urine Not Detected Not Detect [facility] Comment:Cocaine cut-off is 3 00 ng/mL.Positive results are unconfirmed and should not be used fornon-medical purposes. Cannabinoid Screen Urine Not Detected Not Detect [facility] Comment:Cannabinoid cut-off is 50 ng/mL.Positive results are unconfirmed and should not be used fornon-medical purposes. Methadone Screen, Urine Not Detected Not Detect ng/mL [facility] Comment:Methadone cut-off is 300 ng/mL.Positive results are unconfirmed and should not be used fornon-medical purposes. FENTANYL URINE Not Detected Not Detect [facility] Comment:Fentanyl cut-off is 1 ng/mL.Positive results are unconfirmed and should not be used fornon-medical purposes. Oxycodone Urine Screen Not Detected Not Detect ng/mL [facility] Comment:Oxycodone cut-off is 100 ng/mL.Positive results are unconfirmed and should not be used fornon-medical purposes. Buprenorphine Screen Not Detected Not Detect ng/mL [facility] Comment:Buprenorphine cut-of f is 5 ng/mL.Positive results are unconfirmed and should not be used fornon-medical purposes. 02/26/2025 2:17 PM EDT 02/26/2025 2:21 PM EDT us Generic External Data Provider LAB URINE ORDERAB LES Final Result Performing Organization Address City/State/[facility] Co de Phone Number [facility] [address] [place] [phone] * Lipid Panel, Standard (04/06/2023 10:00 AM EDT) Triglycerides 94 mg/dL [facility] Comment:Desirable Triglyceri de: less than 150 mg/dLBorderline High Triglyceride 150-199 mg/dLHigh Triglyceride: 200-499 mg/dLVery High Triglyceride: greater than or equal to 5OO mg/dL Cholesterol 79 mg/dL [facility] Comment:Desirable Cholestero l: less than 200 mg/dLBorderline High Cholesterol: 200-239 mg/dLHigh Cholesterol: greater than 239 mg/dL LDL Cholesterol Calculated 36 mg/dl [facility] Comment:Desirable LDL: less than 100 mg/dLNear Optimal/Above Optimal LDL: 110- 129 mg/dLBorderline High LDL: 130-159 mg/dLHigh LDL: 160-189 mg/dLVery High LDL: greater than or equal to 190 mg/dL HDL Cholesterol 25 mg/dL [facility] Comment:Desirable HDL: great er than 40 mg/dL Note: This HDL assay may give artificially low results in patients with liver disease. Blood Venous blood specimen / Unknown 04/06/2023 10:00 AM EDT 04/06/2023 11:20 AM EDT Ann Piña [employer] LAB BLOOD ORDERABLES Final Resul t [facility] [address] [place] [phone] from Last 3 Months or Most Recently Relevant to Health Maintenance Insurance [facility] C3 Care Teams Rn Psych Relationship Specialty Start Date End Date Leta Soto MD [address] [place] [phone] PCP - General Internal Medicine 04/11/23 Yajaira Antonio [address]rd [place] [address] Gastroenterology 09/04/24 [facility] 01/28/25
--- OUTSIDE RECORDS SUMMARY | 2025-05-22 17:28 | XMS_ITS | Encounter Summary ---
Author Organization [employer] Address [address] [facility] [address] [place] [address] Care Team Providers Care Assembler Body Name Role Phone Leta Soto MD Primary Care Pro vider Yajaira Antonio Unavailable Encounter Details Date Type Department Care Team (Late st Contact Info) Description 04/21/2025 Orders Only [facility] [address] [place] [address] Imelda Pfeiffer, CHANDU [address] [place] [address] Healthcare maintenance Social History Tobacco Use Types [...] Description 06/09/2025 9:45 AM EDT Office Visit [facility] [address] [place] [phone] Leta Soto MD [address] [place], [place] [phone] Scheduled Orders Name Type Priority Associated Diagnoses [...] Load <15 NOT DETECTED NOT DETECTED IU/mL [facility] HCV Log PCR <1.18 NOT DETECTED NOT DETECTED Log IU/mL [facility] Comment:For additional infor tash, please refer tohttp://education.XMPie/faq/HUJ79e2(This link is being provided for informational/educational purposes only.)THIS TEST WAS PERFORMED AT:[employer] [place] [phone] STRICKLAND MD 04/21/2025 10:4 3 AM EDT 04/22/2025 8:54 AM EDT us Leta Dick MD LAB BLOOD ORDERAB LES Final Result [facility] [address] [place] [phone] * HIV-1 RNA, Quantitative, Real-Time PCR (04/21/2025 10:43 AM EDT) HIV RNA PCR Qn Copies NOT DETECTED NOT DETECTED copies/mL [facility] HIV RNA PCR Qn Log Copies NOT DETECTED NOT DETECTED [facility] Comment:Result Units: Log co pies/mLThis test was performed using Real-Time Polymerase ChainReaction.Reportable Range: 20 copies/mL to 10,000,000 copies/mL(1.30 log copies/mL to 7.00 log copies/mL).THIS TEST WAS PERFORMED AT:[employer] [place] [id number] STRICKLAND MD 04/21/2025 10:4 3 AM EDT 04/21/2025 1:18 PM EDT us Leta Dick MD LAB BLOOD ORDERAB LES Final Result [facility] [address] [place] [phone] * RPR (Monitor) with Reflex to??Titer (04/21/2025 10:43 AM EDT) RPR (Monitor) w/Refl Titer NON-REACTI VE NON-REACT [place] [facility] Comment:THIS TEST WAS PERFOR MED AT:[employer] [place] [phone] STRICKLAND MD Rapid Plasma Reagin Ab Titer TNP [facility] 04/21/2025 10:4 3 AM EDT 04/21/2025 1:18 PM EDT us Leta Dick MD LAB BLOOD ORDERAB LES Final Result [facility] [address] [place] [phone] * (ABNORMAL) Hepatitis C Antibody with Reflex to HCV, RNA, Quantitative, Real- Time PCR (04/21/2025 10:43 AM EDT) Hepatitis C Antibody Reactive( A) Nonreactive [facility] Comment:Presumptive evidence of antibodies to HCV. 04/21/2025 10:4 3 AM EDT 04/21/2025 1:18 PM EDT us Leta Dick MD LAB BLOOD ORDERAB LES Final Result Performing Organization Address [facility]/ZIP Co de Phone Number [facility] [address] [place] [phone] * Syphilis Screen (04/21/2025 10:43 AM EDT) Syphilis Screen Nonreactive Nonreactive [facility] 04/21/2025 10:4 3 AM EDT 04/21/2025 1:18 PM EDT us Leta Dick MD LAB BLOOD ORDERAB LES Final Result Performing Organization Address [facility] Co de Phone Number [facility] [address] [place] [phone] documented in this encounter Visit Diagnoses Diagnosis Healthcare maintenance documented in this encounter Additional Health Concerns Assessment Noted Time PHQ-9 Depression Total Score: 0 03/12/20 25 10:25 AM EDT documented as of this encounter Care Teams Assembler Body Relationship Specialty Start Date End Date Leta Soto MD [address] [place] [phone] PCP - General Internal Medicine 04/11/23 Yajaira Antonio [address] [place] [address] Drive 3rd [place] [address] Gastroenterology 09/04/24 [facility] 01/28/25 documented as of this encounter
--- OUTSIDE RECORDS SUMMARY | 2025-05-22 17:28 | XMS_ITS | Encounter Summary ---
Author Organization [employer] Address [address] [facility] [address] [place] [address] Care Team Providers Care Preschool Paraprofessional Name Role Phone Leta Soto MD Primary Care Pro vider Yajaira Antonio Unavailable Encounter Details Date Type Department Care Team (Late st Contact Info) Description 05/22/2025 Orders Only [facility] External Provider, [facility] Social History Tobacco Use Types Packs/Day [...] 06/09/2025 9:45 AM EDT Office Visit [facility] [address] [place] [phone] Leta Soto MD [address] [place] [address] documented as of this encounter Goals Goal [...] TROPONIN I Routine 05/22/2025 2:41 PM EDT ETHANOL Routine 05/22/2025 2:41 PM EDT CBC WITH AUTO DIFFERENTIAL Routine 05/22/2025 2:41 PM EDT AMMONIA (P) Routine 05/22/2025 2:41 PM EDT COMPREHENSIVE METABOLIC PANEL Routine 05/22/2025 2:41 PM EDT XR CHEST 1 VIEW Routine 05/22/2025 2:22 PM EDT documented in this encounter Results * CT Head w/o Contrast (05/22/2025 3:27 PM EDT) Anatomical Region Laterality Modality Head, Neck Computed Tomogra phy 05/22/2025 3:27 PM EDT Narrative 05/22/2025 3:54 PM EDT [place] [address] [address] Scan Report Signed Patient: Adelso Beebe MR#: [id number] : 1960 Acct:[id number] Age/Sex: 64 / M ADM Date: 05/22/25 Loc: HO.ED Attending Dr: Ordering Physician: Jorge Wang MD Date of Service: 05/22/25 Procedure(s): CT head/brain wo IV con Accession Number(s): [id number] cc: Jorge Wang MD; Leta Soto MD Report Number: [id number]: Total DLP = 682.00 mGy-cm Reason for [...] 05/22/25 1551 DD/ 1527 TD/TT: 05/22/25 1541 Ge[employer]iences Faculty Member: Procedure Note Donotuseinterpreter, Image - 05/22/[address] [place] [address] [address] Scan Report Signed Patient: Adelso BeebeMR#: [id number] : 1960cct:[id number] Age/Sex: 64 / MADM Date: 05/22/25 Loc: HO.ED Attending Dr: Ordering Physician: Jorge Wang MD Date of Service: 05/22/25 Procedure(s): CT head/brain wo IV con Accession Number(s): [id number] cc: Jorge Wang MD; Leta Soto MD Report Number: [id number]: Total DLP = 682.00 mGy-cm Reason for [...] 05/22/25 1551 DD/ 1527 TD/TT: 05/22/25 1541 Geosciences Faculty Member: [facility] External Provider IMG CT PROCEDURES Final Result * Slide Review (05/22/2025 2:41 PM EDT) Slide Review VERIFIED [facility] 05/22/2025 2:41 PM EDT 05/22/2025 2:45 PM EDT Generic External Data Provider LAB BLOOD ORDERAB LES Final Result [facility] [address] [place] [address] [phone] * High Sensitivity Troponin I (05/22/2025 2:41 PM EDT) TROPONIN I HIGH SENSITIVITY 34.9 <3.5 - 35.0 ng/L [facility] Comment:The Clifford high sens itivity Troponin-I results should beused in conjunction with other diagnostic information suchas ECG, clinical observations and information, and patientsymptoms to aid in the diagnosis of CO. 05/22/2025 2:41 PM EDT 05/22/2025 2:45 PM EDT us Generic External Data Provider LAB BLOOD ORDERAB LES Final Result [facility] [address] [place] [phone] * (ABNORMAL) Comprehensive Metabolic Panel (05/22/2025 2:41 PM EDT) Sodium 143 135 - 145 mmol/L [facility] Potassium 4.2 3.3 - 5.1 mmol/L [facility] Chloride 117(H) 96 - 108 mmol/L [facility] Carbon Dioxide 22 22 - 29 mmol/L [facility] Anion Gap 8(L) 12 - 20 [facility] Urea Nitrogen (BUN) 14 9 - 16 mg/dL [facility] Creatinine, Serum 0.92 0.5 - 1.4 mg/dL [facility] Creatinine Clr Calc Pharmacy 100.1 [facility] Comment:eGFR (calculated fro m the MDRD study equation) and eCrCl(calculated from the Cockcroft-Gault equation) are based ondifferent parameters and may not yield comparable results.If eCrCl result is absurd, please check patient'sheight/weight. Estimated Glomerular Filt Rate >60 [facility] Comment:Chronic Kidney Disea se: Estimated GFR < 60 mL/min/[id number] Kidney Disease: Estimated GFR < 15 mL/min/1.73m2 Glucose 87 60 - 115 mg/dL [facility] Calcium 8.2(L) 8.4 - 10.2 mg/dL [facility] Bilirubin, Total 1.6(H) 0.0 - 1.0 mg/dL [facility] Comment:Slight Icterus. Aspartate Amino Transferase 41(H) 5 - 37 U/L [facility] Alanine Aminotransferase 25 0 - 40 U/L [facility] Total Protein 6.4(L) 6.5 - 8.0 g/dL [facility] Albumin Level 3.1(L) 3.5 - 5.0 g/dL [facility] Alkaline Phosphatase 126(H) 39 - 117 U/L [facility] 05/22/2025 2:41 PM EDT 05/22/2025 2:45 PM EDT Generic External Data Provider LAB BLOOD ORDERAB LES Final Result Performing Organization Address [facility] de Phone Number [facility] [address] [place] [phone] * Ethanol (05/22/2025 2:41 PM EDT) ETHANOL (MG/DL) IN SER/PLAS <10 mg/dL [facility] Comment:Serum/plasma ethanol results are to be used formedical/treatment purposes only. 05/22/2025 2:41 PM EDT 05/22/2025 2:45 PM EDT Generic External Data Provider LAB BLOOD ORDERAB LES Final Result Performing Organization Address [facility] de Phone Number [facility] [address] [place] [phone] * (ABNORMAL) Ammonia, Plasma (05/22/2025 2:41 PM EDT) Ammonia (P) 130(H) 13 - 55 umol/L [facility] 05/22/2025 2:41 PM EDT 05/22/2025 2:45 PM EDT Generic External Data Provider LAB BLOOD ORDERAB LES Final Result Performing Organization Address [facility] de Phone Number [facility] [address] [place] [phone] * (ABNORMAL) CBC auto differential (05/22/2025 2:41 PM EDT) White Blood Count 1.8(L) 4.8 - 10.8 X10*3/uL [facility] Red Blood Count 3.52(L) 4.60 - 5.80 X10*6/uL [facility] Hemoglobin 9.2(L) 14.0 - 18.0 g/dl [facility] Hematocrit 27.5(L) 42.0 - 52.0 % [facility] Mean Corpuscular Volume 78.1(L) 80.0 - 98.0 fL [facility] Mean Corpuscular Hemoglobin 26.1(L) 27.0 - 33.0 pg [facility] Mean Corpuscular HGB Conc 33.5 31.0 - 36.0 g/dl [facility] Red Cell Distribution Width 14.2 11.0 - 16.0 % [facility] Platelet Count 32(L) 160 - 400 X10*3/uL [facility] Neutrophils Percent Auto 56.9 45 - 73 % [facility] Imm Gran Pct Auto 0.6(H) 0.0 - 0.4 % [facility] Lymphocytes Percent Auto 29.6 20 - 40 % [facility] Monocytes Percent Auto 10.6 2 - 11 % [facility] Eosinophils Percent Auto 1.7 0 - 4 % [facility] Basophils Percent Auto 0.6 0 - 2 % [facility] NRBC Pct Auto 0.0 0.0 - 0.2 /100WBC [facility] Neutrophils Absolute Auto 1.0(L) 2.0 - 8.3 x10*3/uL [facility] Imm Gran Abs Auto 0.01 0.00 - 0.03 X10*3/uL [facility] Lymphocytes Absolute Auto 0.5(L) 1.2 - 4.9 X10*3/uL [facility] Monocytes Absolute Auto 0.2 0.1 - 1.2 X10*3/uL [facility] Eosinophils Absolute Auto 0.0 0.0 - 0.4 X10*3/uL [facility] Basophils Absolute Auto 0.0 0.0 - 0.2 X10*3/uL [facility] NRBC Abs Auto 0.000 0.0 - 0.012 X10*3/uL [facility] 05/22/2025 2:41 PM EDT 05/22/2025 2:45 PM EDT us Generic External Data Provider LAB BLOOD ORDERAB LES Edited Result - Final [facility] [address] [place] [phone] * XR Chest 1 View (05/22/2025 2:22 PM EDT) Anatomical Region Laterality Modality Chest Radiographic Susy ging 05/22/2025 2:22 PM EDT Narrative 05/22/2025 2:39 PM EDT [address] [address] XRay Report Signed Patient: Adelso Beebe MR#: [id number] : 1960 Acct:[id number] Age/Sex: 64 / M ADM Date: 05/22/25 Loc: HO.ED Attending Dr: Ordering Physician: Jorge Wang MD Date of Service: 05/22/25 Procedure(s): XR chest 1V Accession Number(s): [id number] cc: Jorge Wang MD; Leta Soto MD [...] Juliet Strong MD 05/22/2025 02:36 PM EDT Dictated By: Juliet Strong MD Signed By: <Electronically signed by Juliet Strong MD in OV> 05/22/25 1436 DD/ 1422 TD/TT: 05/22/25 1432 Ge[employer]iences Faculty Member: Procedure Note Donotjuanyinterpreter, Image - 05/22/[address] [address] XRay Report Signed Patient: Adelso BeebeMR#: [id number] : 1960cct:[id number] Age/Sex: 64 / MADM Date: 05/22/25 Loc: HO.ED Attending Dr: Ordering Physician: Jorge Wang MD Date of Service: 05/22/25 Procedure(s): XR chest 1V Accession Number(s): [id number] cc: Jorge Wang MD; Leta Soto MD [...] Juliet Strong MD 05/22/2025 02:36 PM EDT Dictated By: Juliet Strong MD Signed By: <Electronically signed by Juliet Strong MD in OV> 05/22/25 1436 DD/ 1422 TD/TT: 05/22/25 1432 Geosciences Faculty Member: [facility] External Provider IMG XR PROCEDURES Final Result documented in this encounter Visit Diagnoses Not on filedocumented in this encounter Additional Health Concerns Assessment Noted Time PHQ-9 Depression Total Score: 0 03/12/20 25 10:25 AM EDT documented as of this encounter Care Teams Preschool Paraprofessional Relationship Specialty Start Date End Date Leta Soto MD [address] [place] [phone] PCP - General Internal Medicine 04/11/23 Yajaira Antonio [address]rd [place] [address] Gastroenterology 09/04/24 [facility] 01/28/25 documented as of this encounter
--- OUTSIDE RECORDS SUMMARY | 2025-05-22 17:28 | XMS_ITS ---
Author Organization [employer] Address [address] [facility] 7t [place] [address] Care Team Providers Care Front Elevator Operator Name Role Phone Leta Soto MD [...] Phone Stanley Mckeon RN(Responsible Staff) Registered Nurse [phone] Continued Care and Services Coordination
--- OUTSIDE RECORDS SUMMARY | 2025-05-22 17:28 | XMS_ITS | Encounter Summary ---
Author Organization [employer] Address [address] [facility] 7t [place] [address] Care Team Providers Care Sheet Metal Duct Installer Helper Name Role Phone Leta Soot MD Primary Care Pro vider Yajaira Antonio Unavailable Encounter Details Date Type Department Care Team (Late st Contact Info) Description 04/13/2025 Results Follow-Up [facility] [address] [place] [address] Leta Soto MD [address] [place] [address] CT Cervical Spine w/o Contrast Social History [...] Description 06/09/2025 9:45 AM EDT Office Visit [facility] [address] [place] [phone] Leta Soto MD [address] [place] [address] documented as of this encounter Goals Goal [...] documented as of this encounter Care Teams Sheet Metal Duct Installer Helper Relationship Specialty Start Date End Date Leta Soto MD [address] [place] [phone] PCP - General Internal Medicine 04/11/23 Yajaira Antonio [address] [place] [address] 3rd [place] [address] Gastroenterology 09/04/24 [facility] 01/28/25 documented as of this encounter
--- OUTSIDE RECORDS SUMMARY | 2025-05-22 17:28 | XMS_ITS | Encounter Summary ---
Author Organization [employer] Address [address] [facility] 7t [place] [address] Care Team Providers Care Roll Hauler Name Role Phone Leta Soto MD Primary Care Pro vider Yajaira Antonio Unavailable Encounter Details Date Type Department Care Team (Late st Contact Info) Description 05/20/2025 Orders Only GENERIC EXTERNAL DATA DEPARTMENT [...] Description 06/09/2025 9:45 AM EDT Office Visit [facility] [address] [place] [phone] Leta Soto MD [address] [place], [place] [phone] documented as of this encounter Goals Goal Patient Goal Type Associated Problems Recent Progress Patient-Stated? Author Blood Pressure < 140/90 Blood Pressure 146/72(2024 9:16 AM EDT) No Loan Talbot Record your blood pressure once per day Blood Pressure No Loan Talbot documented as of this encounter Procedures Procedure Name Priority Date/Time Associated Diagnosis Comments SLIDE REVIEW Routine 05/20/2025 11:19 AM EDT CBC WITH AUTO DIFFERENTIAL Routine 05/20/2025 11:19 AM EDT PHERESIS PLATELETS Routine 05/20/2025 10 :46 AM EDT TYPE AND SCREEN Routine 05/20/2025 10:46 AM EDT documented in this encounter Results * Slide Review (05/20/2025 11:19 AM EDT) Slide Review VERIFIED [facility] 05/20/2025 11:1 9 AM EDT 05/20/2025 11:24 AM EDT us Generic External Data Provider LAB BLOOD ORDERAB LES Final Result Performing Organization Address City/State/[facility] Co de Phone Number [facility] [address] [place] [phone] * (ABNORMAL) CBC auto differential (05/20/2025 11:19 AM EDT) White Blood Count 2.2(L) 4.8 - 10.8 X10*3/uL [facility] Red Blood Count 3.33(L) 4.60 - 5.80 X10*6/uL [facility] Hemoglobin 8.6(L) 14.0 - 18.0 g/dl [facility] Hematocrit 26.9(L) 42.0 - 52.0 % [facility] Mean Corpuscular Volume 80.8 80.0 - 98.0 fL [facility] Mean Corpuscular Hemoglobin 25.8(L) 27.0 - 33.0 pg [facility] Mean Corpuscular HGB Conc 32.0 31.0 - 36.0 g/dl [facility] Red Cell Distribution Width 14.0 11.0 - 16.0 % [facility] Platelet Count 34(L) 160 - 400 X10*3/uL [facility] Mean Platelet Volume TNP 9.4 - 12.4 fL [facility] Neutrophils Percent Auto 54.0 45 - 73 % [facility] Imm Gran Pct Auto 0.0 0.0 - 0.4 % [facility] Lymphocytes Percent Auto 33.5 20 - 40 % [facility] Monocytes Percent Auto 9.4 2 - 11 % [facility] Eosinophils Percent Auto 3.1 0 - 4 % [facility] Basophils Percent Auto 0.0 0 - 2 % [facility] NRBC Pct Auto 0.0 0.0 - 0.2 /100WBC [facility] Neutrophils Absolute Auto 1.2(L) 2.0 - 8.3 x10*3/uL [facility] Imm Gran Abs Auto 0.00 0.00 - 0.03 X10*3/uL [facility] Lymphocytes Absolute Auto 0.8(L) 1.2 - 4.9 X10*3/uL [facility] Monocytes Absolute Auto 0.2 0.1 - 1.2 X10*3/uL [facility] Eosinophils Absolute Auto 0.1 0.0 - 0.4 X10*3/uL [facility] Basophils Absolute Auto 0.0 0.0 - 0.2 X10*3/uL [facility] NRBC Abs Auto 0.000 0.0 - 0.012 X10*3/uL [facility] 05/20/2025 11:1 9 AM EDT 05/20/2025 11:24 AM EDT us Generic External Data Provider LAB BLOOD ORDERAB LES Edited Result - Final Performing Organization Address City/[facility]/ZIP Co de Phone Number [facility] [address] [place] [phone] * Pheresis Platelets (05/20/2025 10:46 AM EDT) Pheresis Platelets [id number] AP PHPLT TRANSFUSED 05/21/25 1333 [id number] AP PHPLT TRANSFUSED 05/21/25 1223 [facility] 05/20/2025 10:4 6 AM EDT 05/20/2025 11:19 AM EDT us Generic External Data Provider LAB BLOOD BANK TE ST ORDERABLES Final Result Performing Organization Address City/[facility]/ZIP Co de Phone Number [facility] [address] [place] [phone] * Type and screen (05/20/2025 10:46 AM EDT) Blood Type ON [facility] Antibody Screen NEGATIVE [facility] 05/20/2025 10:4 6 AM EDT 05/20/2025 11:19 AM EDT Narrative [facility] - 05/21/2025 1:43 PM EDT WITNESSED BY SARAH.NURSING:Call Blood Bank (ext. [phone]) to band patient on admission.Type and Screen [...] BLOOD BANK TE ST ORDERABLES Final Result [facility] [address] [place] [address] [phone] documented in this encounter Visit Diagnoses Not on filedocumented in this encounter Additional Health Concerns Assessment Noted Time PHQ-9 Depression Total Score: 0 03/12/20 25 10:25 AM EDT documented as of this encounter Care Teams Roll Hauler Relationship Specialty Start Date End Date Leta Soto MD [address] [place] [phone] PCP - General Internal Medicine 04/11/23 Yajaira Antonio [address] [place] [address] 3rd [place] [address] Gastroenterology 09/04/24 [facility] 01/28/25 documented as of this encounter
[2025-05-22 18:28] VITALS: BP 170/59; PULSE 74; RESP 15; TEMP 36.2; O2SAT 94
[2025-05-22 20:25] LABS: Appearance Urine Clear; Glucose Urine UA Negative (Negative); PH 6.5 (5.0-9.0); Specific Gravity - Urine 1.020 (1.005-1.025)
[2025-05-22 20:33] LABS: Cannabinoid Screen Urine Not Detected (Not Detect)
[2025-05-22 21:01] VITALS: BP 140/59; PULSE 72; RESP 17; TEMP 36.9; O2SAT 100
--- NOTE | 2025-05-22 21:15 | PC.NURSE ---
Report received and care assumed at 1900. Pt found to be awake and alert, able to follow commands, make his needs known, and with no neuro deficits noted. The pt has a bed alarm and a camera present in his room as a fall precaution. He was noted to attempt to get up unassisted once and staff responded to the alarms. Pt made it known he needed to void. He is refusing to use a urinal and/or provide staff with a urine sample at this time. The pt was observed to be a 2 person assist to the nearby bathroom for safety and gait stability.
[2025-05-22 21:35] VITALS: BP 155/70; PULSE 73; RESP 15; TEMP 37; O2SAT 100
[2025-05-22] MEDS: 0.9 % Sodium Chloride Flush 3 ML SYRINGE IVFLUSH (23:52)
[2025-05-23 03:23] VITALS: BP 116/57; PULSE 65; RESP 18; TEMP 36.7; O2SAT 98
[2025-05-23 06:55] LABS: INTERNATIONAL NORM RATIO 1.5 (0.9-1.1); Prothrombin Time 17.3 SEC (10.9-12.4)
[2025-05-23 06:58] LABS: Hematocrit 24.9 % (42.0-52.0); Hemoglobin 8.0 g/dl (14.0-18.0); Mean Corpuscular HGB Conc 32.1 g/dl (31.0-36.0); Mean Corpuscular Hemoglobin 25.6 pg (27.0-33.0); Mean Corpuscular Volume 79.8 fL (80.0-98.0); NRBC Abs Auto 0.000 X10*3/uL (0.0-0.012); NRBC Pct Auto 0.0 /100WBC (0.0-0.2); Red Blood Count 3.12 X10*6/uL (4.60-5.80)
[2025-05-23 07:03] LABS: Platelet Count 27 X10*3/uL (160-400); White Blood Count 1.3 X10*3/uL (4.8-10.8)
[2025-05-23 07:11] LABS: Alanine Aminotransferase 22 U/L (0-40); Albumin Level 2.7 g/dL (3.5-5.0); Alkaline Phosphatase 122 U/L (39-117); Anion Gap 9 (12-20); Aspartate Amino Transferase 40 U/L (5-37); Blood Urea Nitrogen 14 mg/dL (9-16); Calcium 8.0 mg/dL (8.4-10.2); Carbon Dioxide 21 mmol/L (22-29); Chloride 117 mmol/L (96-108); Creatinine Clr Calc Pharmacy 115.1; Estimated Glomerular Filt Rate > 60; Potassium 4.1 mmol/L (3.3-5.1); Sodium 143 mmol/L (135-145); Total Protein 5.8 g/dL (6.5-8.0)
[2025-05-23 07:50] VITALS: BP 122/60; PULSE 68; RESP 18; TEMP 37.7; O2SAT 100
[2025-05-23 09:24] VITALS: BP 159/70
--- NOTE | 2025-05-23 09:26 | P.PNIM_ITS ---
Subjective Subjective Date of Service: 05/23/25 Interval History: improving Physical Exam 2 Exam: Exam: General: AO X 2, no acute distress Resp: CTA bilateral, no accessory muscles used CVS: S1,S2,RRR GI: soft, non tender, non distended Neuro: motor grossly intact, alert, improving asterixis, still unsteady Psych: appropriate affect, inadequate insight Vital Signs: Vital Signs: Last Vital Signs Temp 99.8 F 05/23/25 07:50 Pulse 68 05/23/25 07:50 Resp 18 05/23/25 07:50 BP 159/70 H 05/23/25 09:24 Pulse Ox 100 05/23/25 07:50 O2 Del Method Room Air 05/23/25 07:50 BMI result Body Mass Index 29.6 Objective Data Active Medications Acetaminophen (Acetaminophen 325 Mg Tablet) 650 mg PO Q6H PRN PRN Reason: Pain, Mild 1-3,fever,headache Amlodipine Besylate (Amlodipine Besylate 5 Mg Tablet) 5 mg PO DAILY [facility]; Protocol Last Admin: 05/23/25 09:24 Dose: 5 mg Documented By: JANE Calcium Carbonate (Calcium Carbonate 750 Mg Tab.Chew) 750 mg PO Q4H PRN PRN Reason: Heartburn Lactulose (Lactulose 20 Gm/30 Ml Solution) 20 gm PO Q4H [facility] Last Admin: 05/23/25 09:23 Dose: 20 gm Documented By: JANE Magnesium Hydroxide (Milk Of Magnesia 30 Ml Oral.Susp) 30 ml PO DAILY PRN PRN Reason: Constipation Melatonin (Melatonin 3 Mg Tablet) 6 mg PO BEDTIME PRN PRN Reason: Insomnia Rifaximin (Rifaximin 550 Mg Tablet) 550 mg PO BID [facility] Last Admin: 05/22/25 23:28 Dose: 550 mg Documented By: DANIEL Comments: new admit Sodium Chloride (0.9 % Sodium Chloride Flush 3 Ml Syringe) 3 ml IVFLUSH QSHIFT [facility] Last Admin: 05/22/25 23:52 Dose: 3 ml Documented By: DANIEL Labs 05/23/25 06:02 05/23/25 06:02 Labs: Laboratory Results - last 24 hr 05/22/25 05/22/25 05/23/25 14:41 20:16 06:02 MCV 78.1 L 79.8 L MCH 26.1 L 25.6 L MCHC 33.5 32.1 RDW 14.2 14.1 Plt Count 32 L 27 L MPV Not Reportable TNP Immature Gran % (Auto) 0.6 H Neut % (Auto) 56.9 Lymph % (Auto) 29.6 [place] % (Auto) 10.6 Eos % (Auto) 1.7 Baso % (Auto) 0.6 Lymph # (Auto) 0.5 L [place] # (Auto) 0.2 Eos # (Auto) 0.0 Baso # (Auto) 0.0 Abs Immat Gran (auto) 0.01 Absolute Neuts (auto) 1.0 L Absolute Nucleated RBC 0.000 0.000 Nucleated RBC % (auto) 0.0 0.0 Smear Tech's Comments VERIFIED PT 17.3 H INR 1.5 H Anion Gap 8 L 9 L Estim Creat Clear Calc 100.1 115.1 Estimated GFR > 60 > 60 Random Glucose 87 86 Calcium 8.2 L 8.0 L Total Bilirubin 1.6 H 1.0 Direct Bilirubin 0.4 AST 41 H 40 H ALT 25 22 Alkaline Phosphatase 126 H 122 H Ammonia 130 H Total Protein 6.4 L 5.8 L Albumin 3.1 L 2.7 L Urine Color Yellow Urine Appearance Clear Urine pH 6.5 Ur Specific [place] 1.020 Urine Protein Negative Urine Glucose (UA) Negative Urine Ketones Negative Urine Blood Negative Urine Nitrite Negative Ur Leukocyte Esterase Negative Urine RBC 0-2 Urine WBC 0-5 Ur Squamous Epith Cells 3-5 Urine Bacteria 1+ Hyaline Casts 0-2 Urine Opiates Screen Not Detected Ur Buprenorphine Scrn Not Detected Ur Oxycodone Screen Not Detected Urine Methadone Screen Not Detected Urine Fentanyl Screen Not Detected Ur Barbiturates Screen Not Detected Ur Phencyclidine Scrn Not Detected Ur Amphetamines Screen Not Detected U Benzodiazepines Scrn Not Detected Urine Cocaine Screen Not Detected U Marijuana (THC) Screen Not Detected Ethyl Alcohol < 10 Assessment and Plan (1) Thrombocytopenia: Status: Chronic Plan 64yo M with 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, chronic thrombocytopenia, hepatic encephalopathy, and HTN who was sent in from his long term with confusion Acute metabolic encephalopathy due to hepatic encephalopathy due to decompensated HCV cirrhosis with chronic pancytopenia Lactulose, rifaximin Goal 2-3 bowel movements per day Hypertension Amlodipine, carvedilol History of varices Continue carvedilol DVT prophylaxis-mechanical due to thrombocytopenia Full Code reason for continued hospitalization:ongoing enecephalopathgy titrating lactulose Quality Stroke Does the patient have a stroke diagnosis?: No VTE Prior VTE?: No VTE Risk Level:: Medical - moderate - high VTE Device Contraindication: N/A - Device Ordered VTE Drug Contraindication: Treatment Not Tolerated
[2025-05-23] MEDS: 0.9 % Sodium Chloride Flush 3 ML SYRINGE IVFLUSH ×2 (09:34→15:30)
--- NOTE | 2025-05-23 12:29 | MHC.CM.PN ---
PT LIVES IN A LONG-TERM WHERE HE WILL RETURN HE MAY NEED ASSIST WITH TRANSPORTION BACK
[2025-05-23 12:40] VITALS: O2SAT 100
--- NOTE | 2025-05-23 15:04 | PC.NURSE ---
Pt complaining of righrt foot pain. Pt has non pitting edema bilat feet (not new). Foot warm to touch with palpable pulses and good cap refill. Pt states pain is cramping. Pt declining medication for comfort, pain alleviated with ambulation. No meds given.
[2025-05-23 15:42] VITALS: BP 140/58; PULSE 70; RESP 16; TEMP 36.6; O2SAT 97
[2025-05-23 19:22] VITALS: BP 157/71; PULSE 70; RESP 18; TEMP 36.6; O2SAT 99
--- NOTE | 2025-05-23 21:33 | PC.NURSE ---
Per Dr. Tee ok to d/c sitter and have camera in place. Will reassess need with MD team if needed.
[2025-05-24 03:01] VITALS: BP 129/59; PULSE 66; RESP 17; TEMP 36.8; O2SAT 98
[2025-05-24 06:30] LABS: Hemoglobin 7.9 g/dl (14.0-18.0); NRBC Abs Auto 0.000 X10*3/uL (0.0-0.012); NRBC Pct Auto 0.0 /100WBC (0.0-0.2)
[2025-05-24 06:31] LABS: Ammonia 54 umol/L (13-55)
[2025-05-24 06:32] LABS: Hematocrit 24.7 % (42.0-52.0); Mean Corpuscular HGB Conc 32.0 g/dl (31.0-36.0); Mean Corpuscular Hemoglobin 25.2 pg (27.0-33.0); Mean Corpuscular Volume 78.9 fL (80.0-98.0); Red Blood Count 3.13 X10*6/uL (4.60-5.80)
[2025-05-24 06:36] LABS: PLT ABN DIST 1; Platelet Count 24 X10*3/uL (160-400); White Blood Count 1.6 X10*3/uL (4.8-10.8)
[2025-05-24 06:54] LABS: Anion Gap 10 (12-20); Blood Urea Nitrogen 11 mg/dL (9-16); Calcium 8.1 mg/dL (8.4-10.2); Carbon Dioxide 21 mmol/L (22-29); Chloride 113 mmol/L (96-108); Creatinine Clr Calc Pharmacy 115.1; Estimated Glomerular Filt Rate > 60; Magnesium 1.9 mg/dL (1.6-2.6); Potassium 3.9 mmol/L (3.3-5.1); Sodium 140 mmol/L (135-145)
[2025-05-24 07:54] VITALS: BP 129/58; PULSE 65; RESP 16; TEMP 36.8; O2SAT 97
--- NOTE | 2025-05-24 08:22 | PM.DS ---
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 Patient has frequent admissions for hepatic encephalopathy. Today was noted to be sitting in his underwear and sleepier than usual. He was sent to the ED and noted to have elevated ammonia of 130. He states he has about 1 bowel movement per day and that he is compliant with his lactulose. hospital course: Patient was admitted for acute metabolic encephalopathy due to hepatic encephalopathy due to decompensated hepatitis-C cirrhosis with chronic pancytopenia. Was treated with lactulose and rifaximin started having bowel movements and mental status returned to baseline. Ammonia decreased to 54. On discharge compliance with lactulose and titrating to 2-3 bowel movements per day has been stressed. For hypertension was continued with amlodipine and carvedilol. For history of varices was continued on carvedilol. Time Attestation Discharge Coordination Time (in mins): 33 Quality: Safe Use of Opioids Does Pt have an Active Cancer Diagnosis on the Problem List?: No Quality: Stroke Does the patient have a stroke diagnosis?: No Physical Exam Exam: Exam: General: AO X 2, no acute distress Resp: CTA bilateral, no accessory muscles used CVS: S1,S2,RRR GI: soft, non tender, non distended Neuro: motor grossly intact, alert, improved gait Psych: appropriate affect, iproved insight Vital Signs: Vital Signs: Last Vital Signs Temp 98.2 F 05/24/25 07:54 Pulse 65 05/24/25 07:54 Resp 16 05/24/25 07:54 BP 129/58 L 05/24/25 07:54 Pulse Ox 97 05/24/25 07:54 O2 Del Method Room Air 05/24/25 07:54 BMI result Body Mass Index 29.6 DS: Data Data Completed and Pending Completed studies during hospitalization [Text1]: Procedures Bypass Portal Vein to Hepatic Vein with Synthetic Substitute, Percutaneous Approach (10/08/24) Transfusion of Nonautologous Platelets into Peripheral Vein, Percutaneous Approach (10/08/24) Labs on day of discharge: Laboratory Results - last 24 hr 05/24/25 06:01 WBC 1.6 L RBC 3.13 L Hgb 7.9 L Hct 24.7 L MCV 78.9 L MCH 25.2 L MCHC 32.0 RDW 13.9 Plt Count 24 L MPV Not Reportable Absolute Nucleated RBC 0.000 Nucleated RBC % (auto) 0.0 Sodium 140 Potassium 3.9 Chloride 113 H Carbon Dioxide 21 L Anion Gap 10 L BUN 11 Creatinine 0.80 Estim Creat Clear Calc 115.1 Estimated GFR > 60 Random Glucose 88 Calcium 8.1 L Magnesium 1.9 Ammonia 54 Discharge Plan Discharge Anticipated Discharge Date/Time: 05/24/25 08:20 Patient Disposition: Detention Discharge Diagnosis: hepatic encephalopathy Referrals: Leta Soto MD [Primary Care Provider, Internal Medicine] - 1 Week Discharge Medications: Continued (DME) walker Misc See Rx Instructions .Route Qty: 1 0RF Rx Instructions: As directed lactulose 10 gram/15 mL Solution 40 g PO BID Qty: 1200 0RF Xifaxan 550 mg Tablet 550 mg PO BID Qty: 60 0RF amlodipine 5 mg tablet 5 mg PO DAILY Qty: 90 0RF Discharge Orders: Discharge Order (Routine); Ordered 05/24/25 Ordered By: Lobo Whiting Diet: Advance to usual diet Activity on Discharge: As tolerated Stand Alone Forms: Patient Portal Discharge page Print Language: [place] Care Plan Goals: manage hepatic encephalopathy Health Concerns: hepatic encephalopathy, poor compliance with meds Plan of Treatment: must continue to titrate lactulose for goal of 2-3 bm per day Assessment: see above
--- NOTE | 2025-05-24 09:25 | MHC.CM.PN ---
Addendum entered by Reyna Langston 05/24/25 10:20: No [place] running on [address] today. Security provided transportation back [address], which is [place] from [facility]. Original Note: Patient is discharged today self care. He will transport via [facility]TA, return to detention.
== END 2025-05-24 10:23 | disposition home or self-care (01) ==
LOC: HO.ED 16:00 → HO.EDOVER 16:03 → HO.S3 19:34
PROVIDERS: Admitting Provider Internal Medicine; Emergency Provider Emergency Medicine; PCP Student in an Organized Health Care Education/Training Program; Visit Provider Internal Medicine
DX: K74.69 Other cirrhosis of liver (principal); G93.41 Metabolic encephalopathy; D61.818 Other pancytopenia; K76.82 Hepatic encephalopathy; B19.20 Unspecified viral hepatitis C without hepatic coma; I10 Essential (primary) hypertension; Z79.899 Other long term (current) drug therapy
CPT/HCPCS: 36415; 70450; 71045; 80048; 80053; 80076; 80307; 81001; 82140; 83735; 84484; 85025; 85027; 85610; 93005; 99285

== ENCOUNTER → 2025-05-22 14:15 | Outpatient (BNV) | payer MEDICAID, SELFPAY | PROVIDERS: Emergency Provider Emergency Medicine; PCP Student in an Organized Health Care Education/Training Program; Visit Provider Radiology Body Imaging | DX: R41.82 Altered mental status, unspecified (principal); J98.4 Other disorders of lung | CPT/HCPCS: 70450; 71045 ==

== ENCOUNTER → 2025-05-22 14:15 | Outpatient (BNV) | payer MEDICAID, SELFPAY | PROVIDERS: Admitting Provider Internal Medicine; Emergency Provider Emergency Medicine; PCP Student in an Organized Health Care Education/Training Program; Visit Provider Internal Medicine Cardiovascular Disease | DX: R07.9 Chest pain, unspecified (principal) | CPT/HCPCS: 93010 ==

== ENCOUNTER → 2025-05-22 15:55 | Outpatient (BNV) | payer MEDICAID, SELFPAY | PROVIDERS: Admitting Provider Internal Medicine; Emergency Provider Emergency Medicine; PCP Student in an Organized Health Care Education/Training Program; Visit Provider Internal Medicine | DX: D69.6 Thrombocytopenia, unspecified (principal) | CPT/HCPCS: 99223; 99233; 99239 ==

== ENCOUNTER 2025-05-27 10:27 | Outpatient (AMB) | payer MEDICAID, SELFPAY ==
[2025-05-27 10:37] VITALS: BP 149/65; PULSE 72
--- NOTE | 2025-05-27 10:37 | MHC.OFFVIS ---
Vital Signs 05/27/25 10:37 Weight 216 lb 0.848 oz BP 149/65 H Blood Pressure Location Lt brachial Position Sitting Pulse 72 Intake Visit Reasons: Acute Hepatic Encephalopathy r/s 03/12 Intake Note: Adelso presents in the office as a follow up for acute hepatic encephalopathy. CC: States that he is bleeding through his mouth since his EGD. Credit Card Control Clerk Required: Yes Credit Card Control Clerk Name: [id number] Anusha Allergies dicyclomine (From Bentyl) Allergy (Verified 05/27/25 10:38) Unknown aspirin Adverse Reaction (Severe, Verified 05/27/25 10:38) stomach bleeding NSAIDS (Non-Steroidal Anti-Inflamma Adverse Reaction (Severe, Verified 05/27/25 10:38) liver concerns HPI Comments Details: This is a 62y.o M who is here for follow up for HCV related liver disease. 06/04/23: Seen with electronic masking system operator. Pt was being seen by [facility] for pancytopenia and work up revealed chronic liver disease secondary to chronic HCV genotype 1a with occult HBV and HIV negative status. He has also undergone US Abd which does not show any focal masses. Interestingly reported as normal liver despite fibrosure with F3-4 fibrosis, thrombocytopenia and splenomegaly. Pt does not report any IVDU but does report years of unprotected sexual intercourse > 15 years ago in [place]. No fam hx of liver disease. Also noted on labs is iron deficiency anemia with ferritin of 17. Pt reports having a colonoscopy 4 months ago at [facility] in [place]. Was told it was normal but does not recall the recall interval. US Abd 04/2023: 1. Nonspecific region of borderline focal wall thickening along the anterior aspect of the gallbladder wall measuring up to 4 mm. 2. Simple appearing cystic focus in the right renal upper pole measuring up to 1.6 cm, which does not require follow-up. 3. Enlarged spleen measuring up to 22.4 cm. 11/20/23: Large varices with high risk stigmata (EVBL x 5) Hiatal hernia Gastric polyps (biopsy) Antral nodule (biopsy) Portal hypertensive gastropathy Normal duodenum A. Stomach, antrum nodule: Antral-type mucosa with surface hyperplastic changes, mild chronic inactive inflammation and intestinal metaplasia; negative for dysplasia; no Helicobacter organisms seen. B. Stomach, polyps: Hyperplastic mucosal polyps with background moderate chronic active inflammation; no Helicobacter organisms seen. 12/03/23: Comes in for follow up. Reports some jaw discomfort after the EGD. Also had some discomfort with swallowing initially which improved with magic mouthwash. Currently no GI complaints. EGD findings and path reviewed including findings of HP gastric poylps. 02/13/24: Started Epclusa in December. 3 more weeks left for therapy. No active GI issues. Large varices with high risk stigmata (EVBL x 4) Hiatal hernia Gastric polyps Portal hypertensive gastropathy Portal hypertensive duodenopathy with lymphangectasia ?? Path: A. Stomach, antrum greater curvature, biopsy: Gastric antral mucosa with mild chronic inactive gastritis; negative for Helicobacter pylori, intestinal metaplasia and dysplasia. B. Stomach, antrum lesser curvature, biopsy: Gastric antral mucosa with mild reactive gastropathy and patchy mild chronic inflammation; negative for Helicobacter pylori, intestinal metaplasia and dysplasia. C. Stomach, incisura, biopsy: Gastric antral mucosa with mild chronic inactive gastritis and focal intestinal metaplasia; negative for Helicobacter pylori and dysplasia. D. Stomach, body greater curvature, biopsy: Gastric body-type mucosa with moderate chronic gastritis, glandular atrophy and intestinal metaplasia; negative for Helicobacter pylori and dysplasia (see comment). E. Stomach, body, lesser curvature, biopsy: Gastric body-type mucosa with moderate chronic gastritis, glandular atrophy and intestinal metaplasia; negative for Helicobacter pylori and dysplasia (see comment 07/02/24: Here for follow-up. Had a brief hospitalization last month for question of hematemesis. However, this was low-grade, and did not warrant an endoscopic workup at that time. Patient was discharged. Most recent CBC with hemoglobin at baseline. Also had HCV RNA checked in April, which remains undetectable. His SVR 12 is actually due next month. He also was diagnosed with atrophic gastritis based on biopsies as well as antiparietal antibody. Vitamin B12 and folate are normal. 10/31/24: Here with his grandaugissel Reynoso. Was hospitalized earlier this year for abd pain and progression of PV thrombosis. S/p TIPS 10/15/24 with plan for outpatient thrombectomy however pt did not show. Today, he tells me he sustained a fall earlier this week when he slipped on ice. Was brought to the hospital for evaluation and ACS rule out. Currently reports pin point pain in lower back around T12/L1. Still houseless but granddaughter is helping out with finding stable housing and also helping with meds. Pt did not show February and March. He also has had at least 10 hospitalizations in the last 6 months. 05/27/25: Pt here for follow up. Seen with Jim for Lithuanian interpretation. Was seen as outpatient EGD last week and then next day his mental status deteriorated. Was found sitting in his underwear on hte side of the road and brought to ER. Treated for HE in patient and discharged over the weekend. Presents today by himself but niece Eugenia was involved over the phone during hte visit. Pt reports fluctuating mental status despite passing 1-2 loose bowel movements every day on lactulose. Does not report he is taking rifaximin. He thought this medication was causing lightheadedness, but clarify that the carvedilol was likely causing low blood pressure dizziness. This has been discontinued in light of tips and no significant portal hypertensive changes noted on most recent endoscopy last week. Given multiple admissions for hepatic encephalopathy, would advocate for at least narrowing of the tips. This is to be done after the portal vein thrombosis has been at rest. As before, patient is not a candidate for anticoagulation due to exceedingly low platelet count. We will reach out to interventional radiologist colleagues to discuss thrombectomy. [facility] Medical History Portal vein thrombosis Eye abnormality Cirrhosis of liver Pancytopenia Hyperammonemia Pancytopenia Obesity (BMI 30.0-34.9) Fall Pancytopenia Hepatic encephalopathy Cirrhosis Splenic vein thrombosis Sepsis Cirrhosis of liver with ascites Abdominal pain Thrombocytopenia Pancytopenia Cirrhosis Hepatitis C virus infection Esophageal varices Pancytopenia Iron deficiency anemia Cirrhosis Hepatitis C HBP (high blood pressure) Surgical History S/P TIPS (transjugular intrahepatic portosystemic shunt) H/O left inguinal hernia repair H/O eye surgery History of esophagogastroduodenoscopy (EGD) H/O colonoscopy Family History Maternal Grandmother Breast CA Uterus cancer Mother Primary lung cancer of unknown cell type Social History Household Members: None Household Members Other:: pt comes from a care home Housing: Other Housing Other:: care home Are you a primary health care / medical job titles to a significant other at home: No Unable to assess alcohol history related to: Unable to respond Alcohol intake: former Comment: pt refusing alarm's Patient Tobacco Use Status: Current everyday Tobacco user Tobacco use type: Cigarette Cigarette Packs Per Day: 1 Cigarettes Per Day: 0.5 Years Smoked: 45 e-Cigarette/Vaping Use: Never Used Second Hand Smoke Exposure: No Substance Use Type: Heroin Advance Directives Date on File: 04/02/24 service: No Current occupational status: retired Review of Systems Const All systems reviewed & are unremarkable except as noted in HPI and below Physical Exam Exam Exam: No apparent distress R sided enucleation Nonicteric Abdomen soft, nondistended Alert and oriented x3, normal gait, mild asterixis Vital Signs: Last Vital Signs Pulse 72 05/27/25 10:37 BP 149/65 H 05/27/25 10:37 Assessment & Plan Assessment & Plan (1) Cirrhosis: Code(s): K74.60 - Unspecified cirrhosis of liver Category: Medical Qualifiers: Ascites presence: without ascites Hepatic cirrhosis type: unspecified hepatic cirrhosis Qualified Code(s): K74.60 - Unspecified cirrhosis of liver (2) Portal vein thrombosis: Code(s): I81 - Portal vein thrombosis Category: Medical (3) S/P TIPS (transjugular intrahepatic portosystemic shunt): Code(s): Z95.828 - Presence of other vascular implants and grafts Category: Surgical (4) Hepatitis C virus infection: Code(s): B19.20 - Unspecified viral hepatitis C without hepatic coma Category: Medical Qualifiers: Hepatic coma status: without hepatic coma Viral hepatitis chronicity: chronic Qualified Code(s): B18.2 - Chronic viral hepatitis C (5) Hepatitis B core antibody positive: Code(s): R76.8 - Other specified abnormal immunological findings in serum Category: Medical (6) Hyperplastic adenomatous polyp of stomach: Code(s): D13.1 - Benign neoplasm of stomach Category: Medical Plan 1. Chronic HCV genotype 1a with cirrhosis s/p Epclusa with SVR HBV core Ab pos, HBV surface Ag negative s/p EGD with variceal banding with progressive varices 2/2 PV thrombosis. Anticoagulation contraindicated due to high risk varices and low platelet <25. S/p TIPS 10/15/24 with plan for OP thrombectomy. However that has been deferred for now. Unfortunately pt now has severe HE post TIPS with at least 10 admissions since November. Will check with IR colleagues re portal vein thrombectomy to reduce portal pressures followed by narrowing of the shunt. Plan: - Cont lactulose 2-3 times a day - Rifaximin 550 BID - refilled today - CT triple phased for re-assessment for PV thrombosis - Will touch base with IR - Hold off transplant referral at this time given unreliable housing and transport 2. CRC screening Due. To be booked once pt able to prep - currently houseless but granddaughter helping with finding housing. Contact: Eugenia [phone] and Edgardo Zurita -[phone] Medications: Changed From rifaximin (Xifaxan) 550 mg PO BID 60 tabs 0RF To rifaximin (Xifaxan) 550 mg PO BID 180 tabs 0RF 90 days Coding Level of Care Code Est Pt Level 5 (59684) Complex EM visit Add On G2211 Diagnoses Cirrhosis of liver without ascites, unspecified hepatic cirrhosis type K74.60 Ascites presence: without ascites Hepatic cirrhosis type: unspecified hepatic cirrhosis Portal vein thrombosis I81 S/P TIPS (transjugular intrahepatic portosystemic shunt) Z95.828 Chronic hepatitis C without hepatic coma B18.2 Hepatic coma status: without hepatic coma Viral hepatitis chronicity: chronic Hepatitis B core antibody positive R76.8 Hyperplastic adenomatous polyp of stomach D13.1
--- OUTSIDE RECORDS SUMMARY | 2025-05-27 12:51 | XMS_ITS | Clinical Summary ---
Author Organization [facility] Address [address] [place] [id number] Phone Care Team Providers Care Program Manager Name Role Phone Leta Soto MD Primary Care Pro vider Allergies Active Allergy Reactions Criticality Noted Date Comments Aspirin 04/20/2025 GI upset and bleeding Dicyclomine 05/26/2023 Ibuprofen 04/20/2025 GI upset Medications No known medications Encounters Date Type Department Care Team Description 04/20/2025 1:15 PM EDT Office Visit [facility] [address] [id number] Michela Matt MD Cicatricial ectropion of right [...] Description 05/28/2025 10:00 AM EDT Pre-Ad[place] [facility] [place] [facility] [address] [place] [id number] Michela Matt MD [address] [place] [id number] [email or web address] 06/11/2025 Procedure Pass [facility] [address] [place] [address] 06/11/2025 12:15 PM EDT Hospital Encounter [facility] [address] [place] [address] Michela Matt MD [address] [place] [id number] [email or web address] 06/11/2025 12:15 PM EDT - 06/11/2025 1:15 PM EDT Surgery [facility] [address] [place] [address] Michela Matt MD [address] [place] [phone] [email or web address] 06/29/2025 2:30 PM EDT Office Visit [address] [place] [address] Michela Matt MD [address] [place] [id number] [email or web address] Scheduled Procedures Name Priority Associated Diagnoses Date/Ti wv LATERAL TARSAL STRIP Ectropion of right upper [...] ACO C3 ACO C3 ACO C3 ACO [facility] C3 ACO [facility] [id number] Care Teams Program Manager Relationship Specialty Start Date End Date Leta Soto MD [address] [place] [id number] PCP - General Internal Medicine 01/05/25 Additional Source Comments The information contained in this document represents components of the legal health record. It is not the complete legal health record.[facility]
--- OUTSIDE RECORDS SUMMARY | 2025-05-27 12:52 | XMS_ITS | Encounter Summary ---
Author Organization [employer] Address [address] [facility] 7t [place] [address] Care Team Providers Care Equipment Mechanic Name Role Phone Leta Soto MD Primary Care Pro vider Yajaira Antonio Unavailable Encounter Details Date Type Department Care Team (Late st Contact Info) Description 05/22/2025 Orders Only [facility] External Provider, [facility] Social History Tobacco Use Types Packs/Day [...] Office Visit [facility] [address] [place] [phone] Leta Soto MD [address] [place] [address] documented as of this encounter Goals Goal [...] PM EDT Narrative 05/22/2025 3:54 PM EDT [place] [address] [address] Scan Report Signed Patient: Adelso Beebe MR#: [id number] : 1960 Acct:[id number] Age/Sex: 64 / M ADM Date: 05/22/25 Loc: HO.ED Attending Dr: Ordering Physician: Jorge Wang MD Date of Service: 05/22/25 Procedure(s): CT head/brain wo IV con Accession Number(s): [id number] cc: Jorge Wang MD; Leta Soto MD Report Number: [id number]: Total DLP = 682.00 mGy-cm Reason for [...] 05/22/25 1551 DD/ 1527 TD/TT: 05/22/25 1541 Maintenance Planner: Procedure Note Donotuseinterpreter, Image - 05/22/[address] [place] [address] [address] Scan Report Signed Patient: Adelso BeebeMR#: [id number] : 1960cct:[id number] Age/Sex: 64 / MADM Date: 05/22/25 Loc: HO.ED Attending Dr: Ordering Physician: Jorge Wang MD Date of Service: 05/22/25 Procedure(s): CT head/brain wo IV con Accession Number(s): [id number] cc: Jorge Wang MD; Leta Soto MD Report Number: [id number]: Total DLP = 682.00 mGy-cm Reason for [...] 05/22/25 1551 DD/ 1527 TD/TT: 05/22/25 1541 Maintenance Planner: [facility] External Provider IMG CT PROCEDURES Final Result * Slide Review (05/22/2025 2:41 PM EDT) Slide Review VERIFIED [facility] 05/22/2025 2:41 PM EDT 05/22/2025 2:45 PM EDT Generic External Data Provider LAB BLOOD ORDERAB LES Final Result [facility] [address] [place] [address] [phone] * High Sensitivity Troponin I (05/22/2025 2:41 PM EDT) TROPONIN I HIGH SENSITIVITY 34.9 <3.5 - 35.0 ng/L [facility] Comment:The Clifford high sens itivity Troponin-I results should beused in conjunction with other diagnostic information suchas ECG, clinical observations and information, and patientsymptoms to aid in the diagnosis of NM. 05/22/2025 2:41 PM EDT 05/22/2025 2:45 PM EDT us Generic External Data Provider LAB BLOOD ORDERAB LES Final Result [facility] [address] [place] [phone] * (ABNORMAL) Comprehensive Metabolic Panel (05/22/2025 2:41 PM EDT) Sodium 143 135 - 145 mmol/L [facility] Potassium 4.2 3.3 - 5.1 mmol/L [facility] Chloride 117(H) 96 - 108 mmol/L [facility] Carbon Dioxide 22 22 - 29 mmol/L [facility] Anion Gap 8(L) 12 - 20 [facility] Urea Nitrogen (BUN) 14 9 - 16 mg/dL [facility] Creatinine, Serum 0.92 0.5 - 1.4 mg/dL [facility] Creatinine Clr Calc Pharmacy 100.1 [facility] Comment:eGFR (calculated fro m the MDRD study equation) and eCrCl(calculated from the Cockcroft-Gault equation) are based ondifferent parameters and may not yield comparable results.If eCrCl result is absurd, please check patient'sheight/weight. Estimated Glomerular Filt Rate >60 [facility] Comment:Chronic Kidney Disea se: Estimated GFR < 60 mL/min/1.79v4Ouhqpl Kidney Disease: Estimated GFR < 15 mL/min/1.73m2 Glucose 87 60 - 115 mg/dL [facility] Calcium 8.2(L) 8.4 - 10.2 mg/dL [facility] Bilirubin, Total 1.6(H) 0.0 - 1.0 mg/dL [facility] Comment:Slight Icterus. Aspartate Amino Transferase 41(H) 5 - 37 U/L [facility] Alanine Aminotransferase 25 0 - 40 U/L [facility] Total Protein 6.4(L) 6.5 - 8.0 g/dL [facility] Albumin Level 3.1(L) 3.5 - 5.0 g/dL [facility] Alkaline Phosphatase 126(H) 39 - 117 U/L [facility] 05/22/2025 2:41 PM EDT 05/22/2025 2:45 PM EDT Generic External Data Provider LAB BLOOD ORDERAB LES Final Result Performing Organization Address [facility] de Phone Number [facility] [address] [place] [phone] * Ethanol (05/22/2025 2:41 PM EDT) ETHANOL (MG/DL) IN SER/PLAS <10 mg/dL [facility] Comment:Serum/plasma ethanol results are to be used formedical/treatment purposes only. 05/22/2025 2:41 PM EDT 05/22/2025 2:45 PM EDT Generic External Data Provider LAB BLOOD ORDERAB LES Final Result Performing Organization Address [facility] de Phone Number [facility] [address] [place] [phone] * (ABNORMAL) Ammonia, Plasma (05/22/2025 2:41 PM EDT) Ammonia (P) 130(H) 13 - 55 umol/L [facility] 05/22/2025 2:41 PM EDT 05/22/2025 2:45 PM EDT Generic External Data Provider LAB BLOOD ORDERAB LES Final Result Performing Organization Address [facility] de Phone Number [facility] [address] [place] [phone] * (ABNORMAL) CBC auto differential (05/22/2025 2:41 PM EDT) White Blood Count 1.8(L) 4.8 - 10.8 X10*3/uL [facility] Red Blood Count 3.52(L) 4.60 - 5.80 X10*6/uL [facility] Hemoglobin 9.2(L) 14.0 - 18.0 g/dl [facility] Hematocrit 27.5(L) 42.0 - 52.0 % [facility] Mean Corpuscular Volume 78.1(L) 80.0 - 98.0 fL [facility] Mean Corpuscular Hemoglobin 26.1(L) 27.0 - 33.0 pg [facility] Mean Corpuscular HGB Conc 33.5 31.0 - 36.0 g/dl [facility] Red Cell Distribution Width 14.2 11.0 - 16.0 % [facility] Platelet Count 32(L) 160 - 400 X10*3/uL [facility] Neutrophils Percent Auto 56.9 45 - 73 % [facility] Imm Gran Pct Auto 0.6(H) 0.0 - 0.4 % [facility] Lymphocytes Percent Auto 29.6 20 - 40 % [facility] Monocytes Percent Auto 10.6 2 - 11 % [facility] Eosinophils Percent Auto 1.7 0 - 4 % [facility] Basophils Percent Auto 0.6 0 - 2 % [facility] NRBC Pct Auto 0.0 0.0 - 0.2 /100WBC [facility] Neutrophils Absolute Auto 1.0(L) 2.0 - 8.3 x10*3/uL [facility] Imm Gran Abs Auto 0.01 0.00 - 0.03 X10*3/uL [facility] Lymphocytes Absolute Auto 0.5(L) 1.2 - 4.9 X10*3/uL [facility] Monocytes Absolute Auto 0.2 0.1 - 1.2 X10*3/uL [facility] Eosinophils Absolute Auto 0.0 0.0 - 0.4 X10*3/uL [facility] Basophils Absolute Auto 0.0 0.0 - 0.2 X10*3/uL [facility] NRBC Abs Auto 0.000 0.0 - 0.012 X10*3/uL [facility] 05/22/2025 2:41 PM EDT 05/22/2025 2:45 PM EDT us Generic External Data Provider LAB BLOOD ORDERAB LES Edited Result - Final [facility] [address] [place] [phone] * XR Chest 1 View (05/22/2025 2:22 PM EDT) Anatomical Region Laterality Modality Chest Radiographic Susy ging 05/22/2025 2:22 PM EDT Narrative 05/22/2025 2:39 PM EDT [address] [address] XRay Report Signed Patient: Adelso Beebe MR#: [id number] : 1960 Acct:[id number] Age/Sex: 64 / M ADM Date: 05/22/25 Loc: HO.ED Attending Dr: Ordering Physician: Jorge Wang MD Date of Service: 05/22/25 Procedure(s): XR chest 1V Accession Number(s): [id number] cc: Jorge Wang MD; Leta Soto MD [...] 05/22/25 1436 DD/ 1422 TD/TT: 05/22/25 1432 Maintenance Planner: Procedure Note Donotjuanyinterpreter, Image - 05/22/[address] [address] XRay Report Signed Patient: Adelso BeebeMR#: [id number] : 1960cct:[id number] Age/Sex: 64 / MADM Date: 05/22/25 Loc: HO.ED Attending Dr: Ordering Physician: Jorge Wang MD Date of Service: 05/22/25 Procedure(s): XR chest 1V Accession Number(s): [id number] cc: Jorge Wang MD; Leta Soto MD [...] 05/22/25 1436 DD/ 1422 TD/TT: 05/22/25 1432 Maintenance Planner: [facility] External Provider IMG XR PROCEDURES Final Result documented in this encounter Visit Diagnoses Not on filedocumented in this encounter Additional Health Concerns Assessment Noted Time PHQ-9 Depression Total Score: 0 03/12/20 25 10:25 AM EDT documented as of this encounter Care Teams Equipment Mechanic Relationship Specialty Start Date End Date Leta Soto MD [address] [place] [phone] PCP - General Internal Medicine 04/11/23 Yajaira Antonio [address]rd [place] [address] Gastroenterology 09/04/24 [facility] 01/28/25 documented as of this encounter
--- OUTSIDE RECORDS SUMMARY | 2025-05-27 12:52 | XMS_ITS | Encounter Summary ---
Author Organization [employer] Address [address] [facility] 7t [place] [address] Care Team Providers Care Departure Clerk Name Role Phone Leta Soto MD Primary Care Pro vider Yajaira Antonio Unavailable Encounter Details Date Type Department Care Team (Late st Contact Info) Description 11/11/2024 Telephone [facility] [address] [place] [phone] Leta Soto MD [address] [place] [address] Social History Tobacco Use Types Packs/Day Years [...] 12:27 PM EST Tc from amrita stiles bilingual case manager requesting the status on pt documented in this encounter Plan of Treatment Upcoming Encounters Date Type Department Care Team (Late st Contact Info) Description 06/09/2025 9:45 AM EDT Office Visit [facility] [address] [place] [phone] Leta Soto MD [address] [place] [address] documented as of this encounter Goals Goal [...] documented as of this encounter Care Teams Departure Clerk Relationship Specialty Start Date End Date Leta Soto MD [address] [place] [phone] PCP - General Internal Medicine 04/11/[address] [place] [address] Gastroenterology 09/04/24 [facility] 01/28/25 documented as of this encounter
--- OUTSIDE RECORDS SUMMARY | 2025-05-27 12:52 | XMS_ITS ---
Author Organization [employer] Address [address] [facility] 7t [place] [address] Care Team Providers Care Child Monitor Name Role Phone Leta Soto MD Primary Care Pro vider Yajaira Antonio Unavailable [facility] Complex Status:Outreach In Progress (Enrolling) Start date:11/27/2024 Enrollment reason:Referred by provider Overview PCP Referral- 63-year-old male with HCV cirrhosis and multiple hospitalizations for hepatic encephalopathy with ongoing homelessness, poor health literacy. Needs support managing specialist appointments. Please outreach for enrollment. Case Team Name Relationship Phone Chata Puente(Responsible Staff) [phone] Continued Care and Services Coordination
--- OUTSIDE RECORDS SUMMARY | 2025-05-27 12:52 | XMS_ITS | Encounter Summary ---
Author Organization [employer] Address [address] [facility] 7[address] [place] [address] Care Team Providers Care Boat Tender Name Role Phone Leta Soto MD Primary Care Pro vider Yajaira Antonio Unavailable Encounter Details Date Type Department Care Team (Late st Contact Info) Description 03/23/2025 Results Follow-Up [facility] [address] [place] [address] Leta Soto MD [address] [place] [address] CT Head w/o Contrast, Ammonia, Plasma, Urinalysis, [...] 9:45 AM EDT Office Visit [facility] [address] [place] [address] Leta Soto MD [address] [place], [place] [phone] documented as of this encounter Goals Goal [...] documented as of this encounter Care Teams Boat Tender Relationship Specialty Start Date End Date Leta Soto MD [address] [place] [address] PCP - General Internal Medicine 04/11/23 Yjaaira Antonio [address] [place] [address] Gastroenterology 09/04/24 [facility] 01/28/25 documented as of this encounter
--- OUTSIDE RECORDS SUMMARY | 2025-05-27 12:52 | XMS_ITS | Clinical Summary ---
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 Patient may return to [facility] for medical needs until a PCP [...] Department Care Team Description 05/22/2025 Orders Only [facility] External Provider, [facility] 05/21/2025 Orders Only GENERIC EXTERNAL DATA DEPARTMENT Provider, Generic External Data 05/20/2025 Orders Only GENERIC EXTERNAL DATA DEPARTMENT Provider, Generic External Data 05/15/2025 Orders Only GENERIC EXTERNAL DATA DEPARTMENT Provider, Generic External Data 04/27/2025 Orders Only [facility] [address] [place] [phone] Veronica Miles, CHANDU 04/27/2025 Refill [facility] [address] [place] [address] Leta Soto MD 04/22/2025 Telephone [facility] [address] [place] [phone] Sadia Denny, self storage manager Changes 04/22/2025 Orders Only [facility] [address] [place] [phone] Leta Soto MD 04/21/2025 Orders Only [facility] [address] [place] [phone] Imelda Pfeiffer, CHANDU Healthcare maintenance 04/20/2025 Telephone [facility] [address] [place] [phone] Leta Soto MD FYI 04/17/2025 9:20 AM EDT Office Visit [facility] [address] [place] [address] Leta Forte MD Essential hypertension (Primary Dx); Erectile dysfunction, unspecified erectile dysfunction type 04/17/2025 Travel 04/16/2025 Refill [facility] [address] [place] [address] Leta Soto MD 04/14/[address] [place] [address] Leta Soto MD [facility] Services (I called the patient at [phone], regarding his request for MANAGER [facility]VIRONMENTAL HEALTH AND SAFETY services, and reached a recording stating that the number is not in service. I then called [phone], and he stated that he needs assistance with transferring and walking, because he has swelling in his legs, and falls frequently. He also needs assistance with getting to appointments. I informed him that a accounts receivable representative from [facility] would be in contact with him, to schedule an evaluation. He is currently living at the [facility],) 04/13/2025 Results Follow-Up [address] Cervical Spine w/o Contrast 04/11/2025 Orders Only GENERIC EXTERNAL DATA DEPARTMENT Provider, Generic External Data 03/30/2025 Orders Only GENERIC EXTERNAL DATA DEPARTMENT Provider, Generic External Data 03/26/[address] [address] Sadia Denny RN Medication Compliance; Referral 03/24/2025 Orders Only GENERIC EXTERNAL DATA DEPARTMENT Provider, Generic External Data 03/24/[address] [place] [address] Leta Soto MD 03/23/2025 Results Follow-Up [address] [place] [address] Head w/o Contrast, Ammonia, Plasma, Urinalysis, Complete, with Reflex to Culture, Additional followed-up results: 9 03/21/2025 Orders Only GENERIC EXTERNAL DATA DEPARTMENT Provider, Generic External Data 03/18/2025 Refill [facility] [place]a [place], [place] [address] Leta Soto MD 03/17/2025 Results Follow-Up [facility] [place], [place] [address] Leta Soto MD XR Chest 2 Views 03/17/2025 Telephone [facility] Luca Evans, [place] [address] Yamel Khanna, CHANDU Care Coordination 03/17/2025 Patient Outreach [facility] Luca Evans, [place] [address] Leta Soto MD 03/16/2025 Orders Only [facility] [place], [place] [address] Leta Soto MD 03/16/2025 Telephone [facility] Luca Evans, [place] [address] Leta Soto MD Image order 03/12/2025 10:00 AM EDT Office Visit [facility] Luca Evans, [place] [address] Leta Soto MD Hypertension, unspecified type (Primary [...] use; Syncope, unspecified syncope type 03/12/2025 [place]phone [place] [address] Leta Soto MD Prior Authorization 03/12/2025 Travel 03/11/2025 [place]phone [place] [address] Leta Soto MD Chart Prep 03/06/2025 Telephone [facility] [address] [place] [address] Leta Soto MD FYI 02/26/2025 Orders Only [...] Description 06/09/2025 9:45 AM EDT Office Visit [facility] [address] [place] [phone] Leta Soto MD [address] [place] [address] Health Maintenance Due Date Last Done Comments [...] 1 VIEW Routine 05/22/2025 2:22 PM EDT HEMATOXYLIN AND EOSIN STAIN Routine 05/21/2025 2:15 PM EDT SLIDE REVIEW Routine 05/20/2025 11:19 [...] PM EDT Narrative 05/22/2025 3:54 PM EDT [address] [address] [address] Scan Report Signed Patient: Adelso Beebe MR#: [id number] : 1960 Acct:[id number] Age/Sex: 64 / M ADM Date: 05/22/25 Loc: HO.ED Attending Dr: Ordering Physician: Jorge Wang MD Date of Service: 05/22/25 Procedure(s): CT head/brain wo IV con Accession Number(s): [id number] cc: Jorge Wang MD; Leta Soto MD Report Number: [id number]: Total DLP = 682.00 mGy-cm Reason for [...] 05/22/25 1551 DD/ 1527 TD/TT: 05/22/25 1541 Powertrain Design Engineer: Procedure Note Donotuseinterpreter, Image - 05/22/[address] [address] [address] Scan Report Signed Patient: Yolanda Beebe#: [id number] : 1960cct:[id number] Age/Sex: 64 / MADM Date: 05/22/25 Loc: HO.ED Attending Dr: Ordering Physician: Jorge Wang MD Date of Service: 05/22/25 Procedure(s): CT head/brain wo IV con Accession Number(s): [id number] cc: Jorge Wang MD; Leta Soto MD Report Number: [id number]: Total DLP = 682.00 mGy-cm Reason for [...] 05/22/25 1551 DD/ 1527 TD/TT: 05/22/25 1541 Powertrain Design Engineer: [facility] External Provider IMG CT PROCEDURES Final Result * Slide Review (05/22/2025 2:41 PM EDT) Only the most recent of4 resultswithin the time period is included. Slide Review VERIFIED [facility] 05/22/2025 2:41 PM EDT 05/22/2025 2:45 PM EDT us Generic External Data Provider LAB BLOOD ORDERAB LES Final Result Performing Organization Address [place] Co de Phone Number [facility] [address] [place] [phone] * High Sensitivity Troponin I (05/22/2025 2:41 PM EDT) Only the most recent of3 resultswithin the time period is included. TROPONIN I HIGH SENSITIVITY 34.9 <3.5 - 35.0 ng/L [facility] Comment:The Clifford high sens itivity Troponin-I results should beused in conjunction with other diagnostic information suchas ECG, clinical observations and information, and patientsymptoms to aid in the diagnosis of UT. 05/22/2025 2:41 PM EDT 05/22/2025 2:45 PM EDT Generic External Data Provider LAB BLOOD ORDERAB LES Final Result Performing Organization Address [facility] Phone Number [facility] [address] [place] [phone] * Ethanol (05/22/2025 2:41 PM EDT) Only the most recent of4 resultswithin the time period is included. ETHANOL (MG/DL) IN SER/PLAS <10 mg/dL [facility] Comment:Serum/plasma ethanol results are to be used formedical/treatment purposes only. 05/22/2025 2:41 PM EDT 05/22/2025 2:45 PM EDT Generic External Data Provider LAB BLOOD ORDERAB LES Final Result Performing Organization Address [facility] Co de Phone Number [facility] [address] [place] [phone] * (ABNORMAL) CBC auto differential (05/22/2025 2:41 PM EDT) Only the most recent of5 resultswithin the time period is included. White Blood Count 1.8(L) 4.8 - 10.8 X10*3/uL [facility] Red Blood Count 3.52(L) 4.60 - 5.80 X10*6/uL [facility] Hemoglobin 9.2(L) 14.0 - 18.0 g/dl [facility] Hematocrit 27.5(L) 42.0 - 52.0 % [facility] Mean Corpuscular Volume 78.1(L) 80.0 - 98.0 fL [facility] Mean Corpuscular Hemoglobin 26.1(L) 27.0 - 33.0 pg [facility] Mean Corpuscular HGB Conc 33.5 31.0 - 36.0 g/dl [facility] Red Cell Distribution Width 14.2 11.0 - 16.0 % [facility] Platelet Count 32(L) 160 - 400 X10*3/uL [facility] Neutrophils Percent Auto 56.9 45 - 73 % [facility] Imm Gran Pct Auto 0.6(H) 0.0 - 0.4 % [facility] Lymphocytes Percent Auto 29.6 20 - 40 % [facility] Monocytes Percent Auto 10.6 2 - 11 % [facility] Eosinophils Percent Auto 1.7 0 - 4 % [facility] Basophils Percent Auto 0.6 0 - 2 % [facility] NRBC Pct Auto 0.0 0.0 - 0.2 /100WBC [facility] Neutrophils Absolute Auto 1.0(L) 2.0 - 8.3 x10*3/uL [facility] Imm Gran Abs Auto 0.01 0.00 - 0.03 X10*3/uL [facility] Lymphocytes Absolute Auto 0.5(L) 1.2 - 4.9 X10*3/uL [facility] Monocytes Absolute Auto 0.2 0.1 - 1.2 X10*3/uL [facility] Eosinophils Absolute Auto 0.0 0.0 - 0.4 X10*3/uL [facility] Basophils Absolute Auto 0.0 0.0 - 0.2 X10*3/uL [facility] NRBC Abs Auto 0.000 0.0 - 0.012 X10*3/uL [facility] 05/22/2025 2:41 PM EDT 05/22/2025 2:45 PM EDT Generic External Data Provider LAB BLOOD ORDERAB LES Edited Result - Final Performing Organization Address [place] Co de Phone Number [facility] [address] [place] [phone] * (ABNORMAL) Ammonia, Plasma (05/22/2025 2:41 PM EDT) Only the most recent of4 resultswithin the time period is included. Ammonia (P) 130(H) 13 - 55 umol/L [facility] 05/22/2025 2:41 PM EDT 05/22/2025 2:45 PM EDT Generic External Data Provider LAB BLOOD ORDERAB LES Final Result Performing Organization Address [facility] de Phone Number [facility] [address] [place] [phone] * (ABNORMAL) Comprehensive Metabolic Panel (05/22/2025 2:41 PM EDT) Only the most recent of4 resultswithin the time period is included. Sodium 143 135 - 145 mmol/L [facility] Potassium 4.2 3.3 - 5.1 mmol/L [facility] Chloride 117(H) 96 - 108 mmol/L [facility] Carbon Dioxide 22 22 - 29 mmol/L [facility] Anion Gap 8(L) 12 - 20 [facility] Urea Nitrogen (BUN) 14 9 - 16 mg/dL [facility] Creatinine, Serum 0.92 0.5 - 1.4 mg/dL [facility] Creatinine Clr Calc Pharmacy 100.1 [facility] Comment:eGFR (calculated fro m the MDRD study equation) and eCrCl(calculated from the Cockcroft-Gault equation) are based ondifferent parameters and may not yield comparable results.If eCrCl result is absurd, please check patient'sheight/weight. Estimated Glomerular Filt Rate >60 [facility] Comment:Chronic Kidney Disea se: Estimated GFR < 60 mL/min/1.50n3Kamyek Kidney Disease: Estimated GFR < 15 mL/min/1.73m2 Glucose 87 60 - 115 mg/dL [facility] Calcium 8.2(L) 8.4 - 10.2 mg/dL [facility] Bilirubin, Total 1.6(H) 0.0 - 1.0 mg/dL [facility] Comment:Slight Icterus. Aspartate Amino Transferase 41(H) 5 - 37 U/L [facility] Alanine Aminotransferase 25 0 - 40 U/L [facility] Total Protein 6.4(L) 6.5 - 8.0 g/dL [facility] Albumin Level 3.1(L) 3.5 - 5.0 g/dL [facility] Alkaline Phosphatase 126(H) 39 - 117 U/L [facility] 05/22/2025 2:41 PM EDT 05/22/2025 2:45 PM EDT us Generic External Data Provider LAB BLOOD ORDERAB LES Final Result [facility] [address] [place] [phone] * XR Chest 1 View (05/22/2025 2:22 PM EDT) Only the most recent of2 resultswithin the time period is included. Anatomical Region Laterality Modality Chest Radiographic Susy ging 05/22/2025 2:22 PM EDT Narrative 05/22/2025 2:39 PM EDT [address] [address] XRay Report Signed Patient: Adelso Beebe MR#: [id number] : 1960 Acct:[id number] Age/Sex: 64 / M ADM Date: 05/22/25 Loc: HO.ED Attending Dr: Ordering Physician: Jorge Wang MD Date of Service: 05/22/25 Procedure(s): XR chest 1V Accession Number(s): [id number] cc: Jorge Wang MD; Leta Soto MD [...] 05/22/25 1436 DD/ 1422 TD/TT: 05/22/25 1432 Powertrain Design Engineer: Procedure Note Donotuseinterpreter, Image - 05/22/[address] [address] XRay Report Signed Patient: Adelso BeebeMR#: [id number] : 1960cct:[id number] Age/Sex: 64 / MADM Date: 05/22/25 Loc: .ED Attending Dr: Ordering Physician: Jorge Wang MD Date of Service: 05/22/25 Procedure(s): XR chest 1V Accession Number(s): [id number] cc: Jorge Wang MD; Leta Soto MD [...] OV> 05/22/25 1436 DD/ 1422 TD/TT: 05/22/25 143 Powertrain Design Engineer: [facility] External Provider IMG XR PROCEDURES Final Result * Hematoxylin and Eosin Stain (05/21/2025 2:15 PM EDT) 05/21/2025 2:15 PM EDT 05/21/2025 2:50 PM EDT [facility] - 05/25/2025 5:25 PM EDT ----- ------- Name: Godfrey JeanAdelso maldonado Age/Sex: 64/M : 1960 Unit#: [id number] Attend Dr: Yajaira Antonio MD Re05/21/25 Status: [facility] Location: [facility] Disch: ----- ------- SPEC : [id number] RECD: 05/21/25 STATUS: OUMOU FONSECA NUM: [id number] CASSI: 05/21/25-[address] [facility] [address]: Yajaira Antonio MD ENTERED: 05/21/25497 SP TYPE: Surgical OTHR DR: Leta Soto MD ORDERED: HE Stain/3, Gross Micro L4, IHC, Special st. 2, H. pylori, AB/PAS Diagnosis Stomach, polyp, biopsy: Hyperplastic mucosal polyp with chronic active inflammation, erosion and regenerative changes; no Helicobacter organisms identified. Clinical History Pre-Op Dx: Esophageal varices without bleeding Post-Op Dx: GAVE, portal HTN gastropathy, gastric polyp Microscopic Description Microscopic sections examined. No metaplastic changes are seen, supported by AB/PAS stains; no Helicobacter organisms are seen, supported by H. pylori immunostain. Material Received Gastric polyp bx's Gross Description Received in formalin labeled gastric polyp biopsies are 6 fragments of fox-white and red- pink soft tissue measuring 0.3-0.6 cm in greatest dimension which are wrapped in lens paper and entirely submitted for microscopic examination, 6 pieces in cassette A. ([facility]) Special studies ordered and performed: Immunostain for H. pylori; AB/PAS stains IHC S/NG Disclaimer NOTE: Unless otherwise stated, all tissue is formalin-fixed and paraffin-embedded. Some or all of the immunohistochemical tests reported herein may have been developed and their performance characteristics determined by [facility]. They have not been cleared or approved by the U.S. Food and Drug Administration (FDA). However, the FDA has determined that such clearance or approval is not necessary. This laboratory is certified under the Clinical Laboratory Improvement Amendments of 1988 (CLIA) as qualified to perform high complexity clinical laboratory testing. Copies To: Leta Stoo MD [address] [place] [id number] CONTINUED ON NEXT PAGE ----- ------- Name: Adelso Beebe Age/Sex: 64/M : 1960 Unit#: [id number] Attend Dr: Yajaira Antonio MD Re05/21/25 Status: [facility] Location: [facility] Disch: ----- ------- SPEC : [id number] RECD: 05/21/25-1450 STATUS: GEORGETTENeha RAYMUNDO NUM: [id number] CASSI: 05/21/25-[address] [facility] [address]: Yajaira Antonio MD ENTERED: 05/21/25-1505 SP TYPE: Surgical OTHR DR: Leta Soto MD ORDERED: HE Stain/3, Gross Micro L4, IHC, Special st. 2, H. pylori, AB/PAS Copies To: (Continued) Yajaira Antonio MD [facility] [address] [place] [address] [phone] [email or web address] ----- ------- Signed (signature on file) Raul Blunt MD 05/25/25 5357 ----- ------- END OF REPORT Generic External Data Provider LAB BLOOD ORDERAB LES Final Result Performing Organization Address [place] Co de Phone Number [facility] [address] [place] [phone] * Pheresis Platelets (05/20/2025 10:46 AM EDT) Pheresis Platelets [id number] AP PHPLT TRANSFUSED 05/21/25 1333 [id number] AP PHPLT TRANSFUSED 05/21/25 1223 [facility] 05/20/2025 10:4 6 AM EDT 05/20/2025 11:19 AM EDT Generic External Data Provider LAB BLOOD BANK TE ST ORDERABLES Final Result Performing Organization Address [facility] de Phone Number [facility] [address] [place] [phone] * Type and screen (05/20/2025 10:46 AM EDT) Only the most recent of2 resultswithin the time period is included. Blood Type ON [facility] Antibody Screen NEGATIVE [facility] 05/20/2025 10:4 6 AM EDT 05/20/2025 11:19 AM EDT Narrative [facility] - 05/26/2025 11:30 AM EDT WITNESSED BY SARAH.NURSING:Call Blood Bank (ext. [phone]) to band patient on admission.Type and Screen [...] BLOOD BANK TE ST ORDERABLES Final Result [facility] [address] [place] [phone] * Urinalysis, Complete, with Reflex to Culture (05/15/2025 2:19 PM EDT) Only the most recent of3 resultswithin the time period is included. Color Urine Yellow [facility] Appearance Urine Clear [facility] PH 8.0 5.0 - 9.0 [facility] Glucose Urine UA Negative Negative mg/dL [facility] Urine Blood Negative Negative [facility] Specific [place] - Urine 1.010 1.005 - 1.025 [facility] Urine Protein Negative Neg-Trace mg/dL [facility] Urine Ketones Negative Negative mg/dL [facility] Nitrite Urine Negative Negative [facility] Leukocyte Esterase Urine Negative Negative [facility] RBC Urine 0-2 0 - 2 /HPF [facility] Urine WBC 0-5 0 - 5 /HPF [facility] Urine Squamous Epithelial Cell 0-2 0 - 2 /HPF [facility] Urine Bacteria None Seen None Seen [facility] Hyaline Casts, Urine 0-2 0 - 2 /LPF [facility] 05/15/2025 2:19 PM EDT 05/15/2025 2:33 PM EDT Narrative [facility] - 05/15/2025 2:44 PM EDT Urine, Clean Catch Generic External Data Provider LAB URINE ORDERAB LES Final Result Performing Organization Address City/[facility]/ZIP Co de Phone Number [facility] [address] [place] [phone] * (ABNORMAL) B Type Natriuretic Peptide (BNP) (05/15/2025 2:19 PM EDT) B Type Natriuretic Peptide 178(H) <100 pg/mL [facility] 05/15/2025 2:19 PM EDT 05/15/2025 2:33 PM EDT Generic External Data Provider LAB BLOOD ORDERAB LES Final Result Performing Organization Address [facility]/ZIP Co de Phone Number [facility] [address] [place] [phone] * (ABNORMAL) Prothrombin Time-INR (05/15/2025 11:23 AM EDT) Only the most recent of2 resultswithin the time period is included. Prothrombin Time 16.1(H) 10.9 - 12.4 SEC [facility] INTERNATIONAL NORM RATIO 1.4(H) 0.9 - 1.1 [facility] Comment:INTERNATIONAL NORMAL IZED RATIO (INR) [...] ORDERAB LES Final Result Performing Organization Address [place]/ZIP Co de Phone Number [facility] [address] [place] [phone] * Syphilis Screen (04/21/2025 10:43 AM EDT) Syphilis Screen Nonreactive Nonreactive [facility] 04/21/2025 10:4 3 AM EDT 04/21/2025 1:18 PM EDT Leta Dick MD LAB BLOOD ORDERAB LES Final Result Performing Organization Address [place] de Phone Number [facility] [address] [place] [address] [phone] * Hepatitis C Viral RNA, Quantitative, Real-Time PCR (04/21/2025 10:43 AM EDT) Hepatitis C Viral Load <15 NOT DETECTED NOT DETECTED IU/mL [facility] HCV Log PCR <1.18 NOT DETECTED NOT DETECTED Log IU/mL [facility] Comment:For additional infor mation, please refer tohttp://education.[employer]/faq/FKX85a6(This link is being provided for informational/educational purposes only.)THIS TEST WAS PERFORMED AT:[employer] [place] [phone] STRICKLAND MD 04/21/2025 10:4 3 AM EDT 04/22/2025 8:54 AM EDT Leta Dick MD LAB BLOOD ORDERAB LES Final Result Performing Organization Address [place] Co de Phone Number [facility] [address] [place] [phone] * (ABNORMAL) Hepatitis C Antibody with Reflex to HCV, RNA, Quantitative, Real- Time PCR (04/21/2025 10:43 AM EDT) [facility] Hepatitis C Antibody Reactive( A) Nonreactive [facility] Comment:Presumptive evidence of antibodies to HCV. 04/21/2025 10:4 3 AM EDT 04/21/2025 1:18 PM EDT Leta Dick MD LAB BLOOD ORDERAB LES Final Result Performing Organization Address [facility] de Phone Number [facility] [address] [place] [phone] * HIV-1 RNA, Quantitative, Real-Time PCR (04/21/2025 10:43 AM EDT) [facility] HIV RNA PCR Qn Copies NOT DETECTED NOT DETECTED copies/mL [facility] HIV RNA PCR Qn Log Copies NOT DETECTED NOT DETECTED [facility] Comment:Result Units: Log co pies/mLThis test was performed using Real-Time Polymerase ChainReaction.Reportable Range: 20 copies/mL to 10,000,000 copies/mL(1.30 log copies/mL to 7.00 log copies/mL).THIS TEST WAS PERFORMED AT:[employer] [address] [phone] STRICKLAND MD 04/21/2025 10:4 3 AM EDT 04/21/2025 1:18 PM EDT Leta Dick MD LAB BLOOD ORDERAB LES Final Result Performing Organization Address [place]/ZIP Co de Phone Number [facility] [address] [place] [phone] * RPR (Monitor) with Reflex to??Titer (04/21/2025 10:43 AM EDT) RPR (Monitor) w/Refl Titer NON-REACTI VE NON-REACT [place] [facility] Comment:THIS TEST WAS PERFOR MED AT:[employer] [place] [phone] STRICKLAND MD Rapid Plasma Reagin Ab Titer TNP [facility] 04/21/2025 10:4 3 AM EDT 04/21/2025 1:18 PM EDT Leta Dick MD LAB BLOOD ORDERAB LES Final Result [facility] [address] [place] [phone] * Chlamydia/Gonorrhea Throat Swab ([place] [facility]) [...] AM EDT Narrative 04/12/2025 12:28 AM EDT [address] [address] [address] Scan Report Signed Patient: Adelso Beebe MR#: [id number] : 1960 Acct:[id number] Age/Sex: 64 / M ADM Date: 04/11/25 Loc: HO.ED Attending Dr: Ordering Physician: Cash Reno MD Date of Service: 04/11/25 Procedure(s): CT cervical spine wo IV con Accession Number(s): [id number] cc: Cash Reno MD; [facility] Report Number: [id number]: Total DLP = 462.38 mGy-cm CLINICAL HISTORY: [...] signed by Gil Tapia MD in OV> 04/12/257 DD/ 0026 TD/TT: 04/12/25 0026 Powertrain Design Engineer: Procedure Note Donotuseinterpreter, Image - 04/12/[address] [address] [address] Scan Report Signed Patient: Adelso BeebeMR#: [id number] : 1960cct:[id number] Age/Sex: 64 / MADM Date: 04/11/25 Loc: HO.ED Attending Dr: Ordering Physician: Cash Reno MD Date of Service: 04/11/25 Procedure(s): CT cervical spine wo IV con Accession Number(s): [id number] cc: Cash Reno MD; [facility] Report Number: [id number]: Total DLP = 462.38 mGy-cm CLINICAL HISTORY: [...] signed by Gil Tapia MD in OV> 04/12/257 DD/ TD/TT: 04/12/2525 Powertrain Design Engineer: [facility] External Provider IMG CT PROCEDURES Final Result * Magnesium (04/11/2025 11:22 PM EDT) Only the most recent of3 resultswithin the time period is included. Magnesium 2.0 1.6 - 2.6 mg/dL [facility] 04/11/2025 11:2 2 PM EDT 04/11/2025 11:26 PM EDT Generic External Data Provider LAB BLOOD ORDERAB LES Final Result [facility] [address] [place] [phone] * Urinalysis w/reflex microscopic (03/30/2025 5:24 PM EDT) Color Urine Dark Yellow [facility] Appearance Urine Clear [facility] PH 6.0 5.0 - 9.0 [facility] Glucose Urine UA Negative Negative mg/dL [facility] Urine Blood Negative Negative [facility] Specific [place] - Urine 1.025 1.005 - 1.025 [facility] Urine Protein Negative Neg-Trace mg/dL [facility] Urine Ketones Trace Negative mg/dL [facility] Nitrite Urine Negative Negative [facility] Leukocyte Esterase Urine Negative Negative [facility] 03/30/2025 5:24 PM EDT 03/30/2025 5:31 PM EDT Narrative [facility] - 03/30/2025 5:42 PM EDT [id number], Clean Catch us Generic External Data Provider LAB URINE ORDERAB LES Final Result Performing Organization Address City/State/[facility] de Phone Number [facility] [address] [place] [phone] * XR Knee 1-2 Views Right (03/30/2025 3:18 PM EDT) Anatomical Region Laterality Modality Lower Extremities, Knee Right Radiogra phic Imaging 03/30/2025 3:18 PM EDT Narrative 03/30/2025 4:30 PM EDT [address] [address] XRay Report Signed Patient: Adelso Beebe MR#: [id number] : 1960 Acct:[id number] Age/Sex: 64 / M ADM Date: 03/30/25 Loc: HO.ED Attending Dr: Ordering Physician: Jorge Wang MD Date of Service: 03/30/25 Procedure(s): XR knee RT 2V Accession Number(s): [id number] cc: Jorge Wang MD; Leta Soto MD [...] OV> 03/30/25 1626 DD/ 1518 TD/TT: 03/30/25 161 Powertrain Design Engineer: Procedure Note Donotuseinterpreter, Image - 03/30/[address] [address] XRay Report Signed Patient: Adelso BeebeMR#: [id number] : 1960cct:[id number] Age/Sex: 64 / MADM Date: 03/30/25 Loc: .ED Attending Dr: Ordering Physician: Jorge Wang MD Date of Service: 03/30/25 Procedure(s): XR knee RT 2V Accession Number(s): [id number] cc: Jorge Wang MD; Leta Soto MD [...] 03/30/25 1626 DD/ 1518 TD/TT: 03/30/25 1618 Powertrain Design Engineer: us [facility] External Provider IMG XR PROCEDURES Final Result * XR Hip right with Pelvis 1 view (03/30/2025 3:17 PM EDT) Anatomical Region Laterality Modality Lower Extremities, Hip Bilateral Radiograp hic Imaging 03/30/2025 3:17 PM EDT Narrative 03/30/2025 4:30 PM EDT [address] [address] XRay Report Signed Patient: Adelso Beebe MR#: [id number] : 1960 Acct:[id number] Age/Sex: 64 / M ADM Date: 03/30/25 Loc: HO.ED Attending Dr: Ordering Physician: Jorge Wang MD Date of Service: 03/30/25 Procedure(s): XR hip RT w PEL1V Accession Number(s): [id number] cc: Jorge Wang MD; Ltea Soto MD EXAMINATION: XR HIP, RIGHT CLINICAL [...] 03/30/25 1628 DD/ 1517 TD/TT: 03/30/25 1618 Powertrain Design Engineer: Procedure Note Donmaritzainterpreter, Image - 03/30/[address] [address] XRay Report Signed Patient: Adelso BeebeMR#: [id number] : 1960cct:[id number] Age/Sex: 64 / MADM Date: 03/30/25 Loc: HO.ED Attending Dr: Ordering Physician: Jorge Wang MD Date of Service: 03/30/25 Procedure(s): XR hip RT w PEL1V Accession Number(s): [id number] cc: Jorge Wang MD; Leta Soto MD [...] 03/30/25 1628 DD/ 1517 TD/TT: 03/30/25 1618 Powertrain Design Engineer: [facility] External Provider IMG XR PROCEDURES Final Result * US Abdomen Limited (03/26/2025 10:11 AM EDT) Anatomical Region Laterality Modality Abdomen Ultrasound 03/26/2025 10:1 1 AM EDT Narrative 03/26/2025 11:08 AM EDT [place] [address] Ultrasound Report Signed Patient: Adelso Beebe MR#: [id number] : 1960 Acct:[id number] Age/Sex: 64 / M ADM Date: 03/24/25 Loc: .[facility] 450-[address]: Getachew Vega MD Ordering Physician: Getachew Vega MD Date of Service: 03/26/25 Procedure(s): US abdomen limited Accession Number(s): [id number] cc: Getachew Vega MD; Leta Soto MD [...] 03/26/25 1105 DD/ 1011 TD/TT: 03/26/25 1028 Powertrain Design Engineer: Procedure Note Donotuseinterpreter, Image - 03/26/[address] [address] Ultrasound Report Signed Patient: Adelso BeebeMR#: [id number] : 1960cct:[id number] Age/Sex: 64 / MADM Date: 03/24/25 Loc: [facility] 450-[address]: Getachew Vega MD Ordering Physician: Getachew Vega MD Date of Service: 03/26/25 Procedure(s): US abdomen limited Accession Number(s): [id number] cc: Getachew Vega MD; Leta Soto MD [...] 03/26/25 1105 DD/ 1011 TD/TT: 03/26/25 1028 Powertrain Design Engineer: us [facility] External Provider IMG US PROCEDURES Edited Result - Final * MR Brain w/o Contrast (03/24/2025 6:18 PM EDT) Anatomical Region Laterality Modality Brain Magnetic Resonan ce 03/24/2025 6:18 PM EDT Narrative 03/24/2025 6:19 PM EDT [address] [address] Magnetic Resonance Report Signed Patient: Adelso Beebe MR#: [id number] : 1960 Acct:[id number] Age/Sex: 64 / M ADM Date: 03/24/25 Loc: HO.ED Attending Dr: Ordering Physician: Edwin Davis MD Date of Service: 03/24/25 Procedure(s): MR head/brain wo con Accession Number(s): [id number] cc: Leta Soto MD; Edwin Davis MD [...] in OV> 03/24/251818 DD/ 17 TD/TT: 03/24/251817 Powertrain Design Engineer: Procedure Note Donotuseinterpreter, Image - 03/24/2025 [place] [address] Magnetic Resonance Report Signed Patient: Adelso BeebeMR#: [id number] : 1960cct:[id number] Age/Sex: 64 / MADM Date: 03/24/25 Loc: HO.ED Attending Dr: Ordering Physician: Edwin Davis MD Date of Service: 03/24/25 Procedure(s): MR head/brain wo con Accession Number(s): [id number] cc: Leta Soto MD; Edwin Davis MD [...] Jensen MD on 03/24/2025 18:18:05 Dictated By: Dapnhe Jensen MD Signed By: <Electronically signed by Daphne Jensen MD in OV> 03/24/251818 DD/ 17 TD/TT: 03/24/251817 Powertrain Design Engineer: us [facility] External Provider IMG MRI PROCEDURES Final Result * (ABNORMAL) VENOUS BLOOD GAS (03/24/2025 2:32 PM EDT) VBG pH 7.54(H) 7.32 - 7.43 [facility] Comment:METER #: [id number] additional_comment: Cb rogalt VBG PCO2 25 mmHg [facility] Comment:METER #: [id number] additional_comment: Cb rogalt VBG PO2 99 mmHg [facility] Comment:METER #: [id number] additional_comment: Cb rogalt VBG Base Excess 0.3 mmol/L [facility] Comment:METER #: [id number] additional_comment: Cb felicityalt VBG HCO3 21(L) 22 - 26 mmol/L [facility] Comment:METER #: [id number] additional_comment: Cb anjelicat O2 Sat, [place] 100.0 % [facility] Comment:METER #: [id number] additional_comment: Cb felicityalt 03/24/2025 2:32 PM EDT 03/24/2025 2:37 PM EDT Generic External Data Provider LAB BLOOD ORDERAB LES Final Result Performing Organization Address City/[facility] Co de Phone Number [facility] [address] [place] [address] [phone] * Lipase (03/21/2025 12:11 PM EDT) Lipase 41 8 - 78 U/L [facility] 03/21/2025 12:1 1 PM EDT 03/21/2025 12:14 PM EDT Generic External Data Provider LAB BLOOD ORDERAB LES Final Result Performing Organization Address City/[facility] Co de Phone Number [facility] [address] [place] [address] [phone] * Lactic Acid (03/21/2025 12:11 PM EDT) Lactic Acid 1.6 0.5 - 2.0 mmol/L [facility] 03/21/2025 12:1 1 PM EDT 03/21/2025 12:14 PM EDT Generic External Data Provider LAB BLOOD ORDERAB LES Final Result Performing Organization Address [place]/[facility] Co de Phone Number [facility] [address] [place] [phone] * Glucose, Whole Blood (03/21/2025 10:55 AM EDT) Glucose, Whole Blood 83 60 - 115 mg/dL [facility] Comment:METER #: [id number] 03/21/2025 10:5 5 AM EDT 03/23/2025 8:12 AM EDT Generic External Data Provider LAB BLOOD ORDERAB LES Final Result Performing Organization Address [place]/[facility] Co de Phone Number [facility] [address] [place] [phone] * XR Chest 2 Views (03/17/2025 8:06 AM EDT) Anatomical Region Laterality Modality Chest Radiographic Susy ging 03/17/2025 8:06 AM EDT Narrative 03/17/2025 9:11 AM EDT [facility] [address] [place] [address] XRay Report Signed Patient: Adelso Beebe MR#: [id number] : 1960 Acct:[id number] Age/Sex: 64 / M ADM Date: 03/17/25 Loc: .HHCX Attending Dr: Leta Dick MD Ordering Physician: Leta Soto MD Date of Service: 03/17/25 Procedure(s): XR chest 2V Accession Number(s): [id number] cc: Leta Soto MD EXAMINATION: XR CHEST [...] 03/17/25 0909 DD/ 0806 TD/TT: 03/17/25 0858 Powertrain Design Engineer: Procedure Note Donotuseinterpreter, Image - 03/17/2025 [place] [address] XRay Report Signed Patient: Yolanda Beebe#: [id number] : 1960cct:[id number] Age/Sex: 64 / MADM Date: 03/17/25 Loc: HO.HHCX Attending Dr: Leta Dick MD Ordering Physician: Leta Soto MD Date of Service: 03/17/25 Procedure(s): XR chest 2V Accession Number(s): [id number] cc: Leta Soto MD EXAMINATION: XR CHEST [...] 03/17/25 0909 DD/ 0806 TD/TT: 03/17/25 0858 Powertrain Design Engineer: [facility] MD IMG XR PROCEDURES Edited Result - Final * Drug Monitoring, Panel 1, Screen, Urine (02/26/2025 2:17 PM EDT) Opiate Screen Urine Not Detected Not Detect [facility] Comment:Opiate cut-off is 30 0 ng/mL.Positive results are unconfirmed and should not be used fornon-medical purposes. Barbiturates, Urine Not Detected Not Detect [facility] Comment:Barbiturate cut-off is 200 ng/mL.Positive results are unconfirmed and should not be used fornon-medical purposes. Phencyclidine Screen Urine Not Detected Not Detect [facility] Comment:Phencyclidine cut-of f is 25 ng/mL.Positive results are unconfirmed and should not be used fornon-medical purposes. Amphetamine Screen Urine Not Detected Not Detect [facility] Comment:Amphetamine cut-off is 1000 ng/mL.Positive results are unconfirmed and should not be used fornon-medical purposes. Benzodiazepines Screen Urine Not Detected Not Detect [facility] Comment:Benzodiazepine cut-o ff is 200 ng/mL.Positive results are unconfirmed and should not be used fornon-medical purposes. Cocaine Screen Urine Not Detected Not Detect [facility] Comment:Cocaine cut-off is 3 00 ng/mL.Positive results are unconfirmed and should not be used fornon-medical purposes. Cannabinoid Screen Urine Not Detected Not Detect [facility] Comment:Cannabinoid cut-off is 50 ng/mL.Positive results are unconfirmed and should not be used fornon-medical purposes. Methadone Screen, Urine Not Detected Not Detect ng/mL [facility] Comment:Methadone cut-off is 300 ng/mL.Positive results are unconfirmed and should not be used fornon-medical purposes. FENTANYL URINE Not Detected Not Detect [facility] Comment:Fentanyl cut-off is 1 ng/mL.Positive results are unconfirmed and should not be used fornon-medical purposes. Oxycodone Urine Screen Not Detected Not Detect ng/mL [facility] Comment:Oxycodone cut-off is 100 ng/mL.Positive results are unconfirmed and should not be used fornon-medical purposes. Buprenorphine Screen Not Detected Not Detect ng/mL [facility] Comment:Buprenorphine cut-of f is 5 ng/mL.Positive results are unconfirmed and should not be used fornon-medical purposes. 02/26/2025 2:17 PM EDT 02/26/2025 2:21 PM EDT us Generic External Data Provider LAB URINE ORDERAB LES Final Result [facility] [address] [place] [phone] * Lipid Panel, Standard (04/06/2023 10:00 AM EDT) Triglycerides 94 mg/dL [facility] Comment:Desirable Triglyceri de: less than 150 mg/dLBorderline High Triglyceride 150-199 mg/dLHigh Triglyceride: 200-499 mg/dLVery High Triglyceride: greater than or equal to 5OO mg/dL Cholesterol 79 mg/dL [facility] Comment:Desirable Cholestero l: less than 200 mg/dLBorderline High Cholesterol: 200-239 mg/dLHigh Cholesterol: greater than 239 mg/dL LDL Cholesterol Calculated 36 mg/dl [facility] Comment:Desirable LDL: less than 100 mg/dLNear Optimal/Above Optimal LDL: 110- 129 mg/dLBorderline High LDL: 130-159 mg/dLHigh LDL: 160-189 mg/dLVery High LDL: greater than or equal to 190 mg/dL HDL Cholesterol 25 mg/dL [facility] Comment:Desirable HDL: great er than 40 mg/dL Note: This HDL assay may give artificially low results in patients with liver disease. Blood Venous blood specimen / Unknown 04/06/2023 10:00 AM EDT 04/06/2023 11:20 AM EDT [facility] LAB BLOOD ORDERABLES Final Resul t [facility] [address] [place] [address] [phone] from Last 3 Months or Most Recently Relevant to Health Maintenance [place] [address] [address] C3 Care Teams Plant Packer Relationship Specialty Start Date End Date Leta Soto MD [address] [place] [phone] PCP - General Internal Medicine 04/11/23 Yajaira Antonio [address]rd [place] [address] Gastroenterology 09/04/24 [facility] 01/28/25
--- OUTSIDE RECORDS SUMMARY | 2025-05-27 12:52 | XMS_ITS | Encounter Summary ---
Author Organization [employer] Address [address] [facility] 7t [place] [address] Care Team Providers Care Court Worker Name Role Phone Leta Soto MD Primary Care Pro vider Yajaira Antonio Unavailable Encounter Details Date Type Department Care Team (Late st Contact Info) Description 05/21/2025 Orders Only GENERIC EXTERNAL DATA DEPARTMENT [...] Description 06/09/2025 9:45 AM EDT Office Visit [facility] [address] [place] [phone] Leta Soto MD [address] [place] [address] documented as of this encounter Goals Goal Patient Goal Type Associated Problems Recent Progress Patient-Stated? Author Blood Pressure < 140/90 Blood Pressure 146/72(2024 9:16 AM EDT) No Loan Talbot Record your blood pressure once per day Blood Pressure No Loan Talbot documented as of this encounter Procedures Procedure Name Priority Date/Time Associated Diagnosis Comments HEMATOXYLIN AND EOSIN STAIN Routine 05/21/2025 2:15 PM EDT documented in this encounter Results * Hematoxylin and Eosin Stain (05/21/2025 2:15 PM EDT) 05/21/2025 2:15 PM EDT 05/21/2025 2:50 PM EDT [facility] - 05/25/2025 5:25 PM EDT ----- ------- Name: Adelso Beebe Age/Sex: 64/M : 1960 Unit#: [id number] Attend Dr: Yajaira Antonio MD Re05/21/25 Status: [facility] Location: [facility] Disch: ----- ------- SPEC : [id number] RECD: 05/21/25-145 STATUS: OUMOU FONSECA NUM: [id number] CASSI: 05/21/25-1415 [facility] DR: Yajaira Antonio MD ENTERED: 05/21/25-5876 SP TYPE: Surgical OTHR DR: Leta Soto [...] microscopic examination, 6 pieces in cassette A. ([facility]) Special studies ordered and performed: Immunostain for H. pylori; AB/PAS stains IHC S/NG Disclaimer NOTE: Unless otherwise stated, all tissue is formalin-fixed and paraffin-embedded. Some or all of the immunohistochemical tests reported herein may have been developed and their performance characteristics determined by [facility]. They have not been cleared or approved by the U.S. Food and Drug Administration (FDA). However, the FDA has determined that such clearance or approval is not necessary. This laboratory is certified under the Clinical Laboratory Improvement Amendments of 1988 (CLIA) as qualified to perform high complexity clinical laboratory testing. Copies To: Leta Soto MD [address] [place] [phone] CONTINUED ON NEXT PAGE ----- ------- Name: Godfrey McmanusAdelso Age/Sex: 64/M : 1960 Unit#: [id number] Attend Dr: Yajaira Antonio MD Re05/21/25 Status: [facility] Location: [facility] Disch: ----- ------- SPEC : [id number] RECD: 05/21/25-6495 STATUS: OUMOU FONSECA NUM: [id number] CASSI: 05/21/25-141 [facility] DR: Yajaira Antonio MD ENTERED: 05/21/25-5368 SP TYPE: Surgical OTHR DR: Leta Soto MD ORDERED: HE Stain/3, Gross Micro L4, IHC, Special st. 2, H. pylori, AB/PAS Copies To: (Continued) Yajaira Antonio MD [facility] [address] [place] [phone] [email or web address] ----- ------- Signed (signature on file) Raul Blunt MD 05/25/25 1725 ----- ------- END OF REPORT us Generic External Data Provider LAB BLOOD ORDERAB LES Final Result [facility] [address] [place] [address] [phone] documented in this encounter Visit Diagnoses Not on filedocumented in this encounter Additional Health Concerns Assessment Noted Time PHQ-9 Depression Total Score: 0 03/12/20 25 10:25 AM EDT documented as of this encounter Care Teams Court Worker Relationship Specialty Start Date End Date Leta Soto MD [address] [place] [phone] PCP - General Internal Medicine 04/11/23 Yajaira Antonio [address] [place] [address] 3rd [place] [address] Gastroenterology 09/04/24 [facility] 01/28/25 documented as of this encounter
--- OUTSIDE RECORDS SUMMARY | 2025-05-27 12:52 | XMS_ITS | Encounter Summary ---
Author Organization [employer] Address [address] [facility] 7t [place] [address] Care Team Providers Care Industrial Machine System Technician Name Role Phone Leta Soto MD Primary Care Pro vider Yajaira Antonio Unavailable Encounter Details Date Type Department Care Team (Late st Contact Info) Description 04/21/2025 Orders Only [facility] [address] [place] [address] Imelda Pfeiffer, CHANDU [address] [place] [address] Healthcare maintenance Social History Tobacco Use Types [...] Description 06/09/2025 9:45 AM EDT Office Visit [facility] [address] [place] [address] [phone] Leta Soto MD [address] [place], [place] [phone] Scheduled Orders Name Type Priority Associated Diagnoses [...] Load <15 NOT DETECTED NOT DETECTED IU/mL [facility] HCV Log PCR <1.18 NOT DETECTED NOT DETECTED Log IU/mL [facility] Comment:For additional infor tash, please refer tohttp://education.[employer]/faq/IXA71c2(This link is being provided for informational/educational purposes only.)THIS TEST WAS PERFORMED AT:[facility] [place] [phone] STRICKLAND MD 04/21/2025 10:4 3 AM EDT 04/22/2025 8:54 AM EDT us Leta Dick MD LAB BLOOD ORDERAB LES Final Result [facility] [address] [place] [phone] * HIV-1 RNA, Quantitative, Real-Time PCR (04/21/2025 10:43 AM EDT) HIV RNA PCR Qn Copies NOT DETECTED NOT DETECTED copies/mL [facility] HIV RNA PCR Qn Log Copies NOT DETECTED NOT DETECTED [facility] Comment:Result Units: Log co pies/mLThis test was performed using Real-Time Polymerase ChainReaction.Reportable Range: 20 copies/mL to 10,000,000 copies/mL(1.30 log copies/mL to 7.00 log copies/mL).THIS TEST WAS PERFORMED AT:[facility] [place] [phone] STRICKLAND MD 04/21/2025 10:4 3 AM EDT 04/21/2025 1:18 PM EDT us Leta Dick MD LAB BLOOD ORDERAB LES Final Result [facility] [address] [place] [phone] * RPR (Monitor) with Reflex to??Titer (04/21/2025 10:43 AM EDT) RPR (Monitor) w/Refl Titer NON-REACTI VE NON-REACT [facility] Comment:THIS TEST WAS PERFOR MED AT:[facility] [place] [phone] STRICKLAND MD Rapid Plasma Reagin Ab Titer TNP [facility] 04/21/2025 10:4 3 AM EDT 04/21/2025 1:18 PM EDT us Leta Dick MD LAB BLOOD ORDERAB LES Final Result [facility] [address] [place] [phone] * (ABNORMAL) Hepatitis C Antibody with Reflex to HCV, RNA, Quantitative, Real- Time PCR (04/21/2025 10:43 AM EDT) Hepatitis C Antibody Reactive( A) Nonreactive [facility] Comment:Presumptive evidence of antibodies to HCV. 04/21/2025 10:4 3 AM EDT 04/21/2025 1:18 PM EDT us Leta Dick MD LAB BLOOD ORDERAB LES Final Result Performing Organization Address [facility]/ZIP Co de Phone Number [facility] [address] [place] [phone] * Syphilis Screen (04/21/2025 10:43 AM EDT) Syphilis Screen Nonreactive Nonreactive [facility] 04/21/2025 10:4 3 AM EDT 04/21/2025 1:18 PM EDT us Leta Dick MD LAB BLOOD ORDERAB LES Final Result Performing Organization Address [facility] Co de Phone Number [facility] [address] [place] [phone] documented in this encounter Visit Diagnoses Diagnosis Healthcare maintenance documented in this encounter Additional Health Concerns Assessment Noted Time PHQ-9 Depression Total Score: 0 03/12/20 25 10:25 AM EDT documented as of this encounter Care Teams Industrial Machine System Technician Relationship Specialty Start Date End Date Leta Soto MD [address] [place] [phone] PCP - General Internal Medicine 04/11/23 Yajaira Antonio [address] [place] [address] Drive 3rd [place] [address] Gastroenterology 09/04/24 [facility] 01/28/25 documented as of this encounter
--- OUTSIDE RECORDS SUMMARY | 2025-05-27 12:52 | XMS_ITS | Encounter Summary ---
Author Organization [employer] Address [address] [facility] 7t [place] [address] Care Team Providers Care Fine Unhairer Name Role Phone Leta Soto MD Primary Care Pro vider Yajaira Antonio Unavailable Encounter Details Date Type Department Care Team (Late st Contact Info) Description 12/17/2023 Orders Only [facility] [address] [place] [address] Tatyana Mosquera FNP [address] [place] [address] Social History Tobacco Use Types Packs/Day Years [...] Visit [facility] [address] [place] [phone] Leta Soto MD [address] [place] [phone] documented as of this encounter Goals Goal [...] documented as of this encounter Care Teams Fine Unhairer Relationship Specialty Start Date End Date Leta Soto MD [address] [place] [phone] PCP - General Internal Medicine 04/11/23 Yajaira Antonio [address]rd [place] [address] Gastroenterology 09/04/24 [facility] 01/28/25 documented as of this encounter
--- OUTSIDE RECORDS SUMMARY | 2025-05-27 12:52 | XMS_ITS ---
Author Organization [employer] Address [address] [facility] 7t [place] [address] Care Team Providers Care Liquefied Natural Gas Operator Name Role Phone Leta Soto MD [...] Phone Stanley Mckeon RN(Responsible Staff) Registered Nurse [phone] Continued Care and Services Coordination
== END 2025-05-27 11:29 | disposition home or self-care (01) ==
LOC: HO.HGI 10:28
PROVIDERS: PCP Student in an Organized Health Care Education/Training Program; Visit Provider Internal Medicine
DX: B18.2 Chronic viral hepatitis C (principal); K74.60 Unspecified cirrhosis of liver; I81 Portal vein thrombosis; Z95.828 Presence of other vascular implants and grafts; R76.8 Other specified abnormal immunological findings in serum; D13.1 Benign neoplasm of stomach
CPT/HCPCS: 99214

== ENCOUNTER → 2025-05-27 10:27 | Outpatient (BNVA) | payer MEDICAID, SELFPAY | PROVIDERS: PCP Student in an Organized Health Care Education/Training Program; Visit Provider Internal Medicine | DX: K74.60 Unspecified cirrhosis of liver (principal); I81 Portal vein thrombosis; R76.8 Other specified abnormal immunological findings in serum; B18.2 Chronic viral hepatitis C; D13.1 Benign neoplasm of stomach; Z95.828 Presence of other vascular implants and grafts | CPT/HCPCS: 99212 ==

== ENCOUNTER 2025-05-28 14:29 | Outpatient (REF) | payer MEDICAID, SELFPAY ==
--- OUTSIDE RECORDS SUMMARY | 2025-05-28 10:00 | XMS_ITS | Encounter Summary ---
Author Organization [facility] Address [address] [facility] [address] [place] [phone] Phone Care Team Providers Care Lead Burner Supervisor Name Role Phone Leta Soto MD Primary Care Pro vider Encounter Details Date Type Department Care Team (Late st Contact Info) Description 05/28/2025 10:00 AM EDT Pre-Admission Testing [facility] Pre Procedure Evaluation Center [address] [place] [phone] Michela Matt MD [address] [place] [phone] [email or web address] Social History Tobacco Use Types Packs/Day Years [...] on file Sexual Orientation Not on file documented as of this encounter Progress Notes * Sarah Lara, RN - 05/28/2025 10:00 AM EDT Called pt with asbestos textile supervisor [phone] Pt was not aware of surgery date / location. Pt not familiar with medications. I called his EC, Eugenia. She will be with him later this afternoon and can help with the pre-op call. Will need asbestos textile supervisor. documented in this encounter Plan of Treatment Upcoming Encounters Date Type Department Care Team (Latest Contact Info) Description 06/11/2025 Procedure Pass [facility] [address] [place] [address] 06/11/2025 12:15 PM EDT Hospital Encounter [facility] [address] [place] [address] Michela Matt MD [address] [place] [phone] [email or web address] 06/11/2025 12:15 PM EDT - 06/11/2025 1:15 PM EDT Surgery [facility] [address] [place] [address] Michela Matt MD [address] [place] [phone] [email or web address] LATERAL TARSAL STRIP 06/29/2025 2:30 PM EDT Office Visit [facility]astics [address] [address] Michela Matt MD [address] [place] [phone] [email or web address] Scheduled Procedures Name Priority Associated Diagnoses Date/Ti ma LATERAL TARSAL STRIP Ectropion of right upper eyelid, unspecified ectropion type 06/11/2025 12:15 PM EDT documented as of this encounter Visit Diagnoses Not on filedocumented in this encounter Care Teams Lead Burner Supervisor Relationship Specialty Start Date End Date Leta Soto MD [address] [place] [phone] PCP - General Internal Medicine 01/05/25 documented as of this encounter Additional Source Comments The information contained in this document represents components of the legal health record. It is not the complete legal health record.[facility]
--- OUTSIDE RECORDS SUMMARY | 2025-05-28 16:15 | XMS_ITS | Encounter Summary ---
Author Organization [employer] Address [address] [facility] 7t [place] [address] Care Team Providers Care Video Systems Engineer Name Role Phone Leta Soto MD Primary Care Pro vider Yajaira Antonio Unavailable Encounter Details Date Type Department Care Team (Late st Contact Info) Description 03/23/2025 Results Follow-Up [facility] [address] [place] [address] Leta Soto MD [address] [place] [address] CT Head w/o Contrast, Ammonia, Plasma, Urinalysis, [...] 06/09/2025 9:45 AM EDT Office Visit [facility] [address] [place] [address] Leta Soto MD [address] [place], [place] [phone] documented as of this encounter Goals Goal [...] documented as of this encounter Care Teams Video Systems Engineer Relationship Specialty Start Date End Date Leta Soto MD [address] [place] [address] PCP - General Internal Medicine 04/11/23 Yajaira Antonio [address]rd [place] [address] Gastroenterology 09/04/24 [facility] 01/28/25 documented as of this encounter
--- OUTSIDE RECORDS SUMMARY | 2025-05-28 16:15 | XMS_ITS | Encounter Summary ---
Author Organization [employer] Address [address] [facility] 7t [place] [address] Care Team Providers Care Rotary Furnace Operator Name Role Phone Leta Soto MD Primary Care Pro vider Yajaira Antonio Unavailable Encounter Details Date Type Department Care Team (Late st Contact Info) Description 11/11/2024 Telephone [facility] [address] [place], [place] [phone] Leta Soto MD [address] [place] [address] Social History Tobacco Use Types Packs/Day Years [...] 12:27 PM EST Tc from amrita stiles family caseworker requesting the status on pt documented in this encounter Plan of Treatment Upcoming Encounters Date Type Department Care Team (Late st Contact Info) Description 06/09/2025 9:45 AM EDT Office Visit [facility] [address] [place] [phone] Leta Soto MD [address] [place] [address] documented as of this encounter Goals Goal [...] documented as of this encounter Care Teams Rotary Furnace Operator Relationship Specialty Start Date End Date Leta Soto MD [address] [place] [phone] PCP - General Internal Medicine 04/11/[address] [place] [address] Gastroenterology 09/04/24 [facility] 01/28/25 documented as of this encounter
--- OUTSIDE RECORDS SUMMARY | 2025-05-28 16:15 | XMS_ITS | Clinical Summary ---
Author Organization [facility] Address [address] [facility] [address] [place] [address] Phone Care Team Providers Care Knife Setter Grinder Machine Name Role Phone Leta Soto MD Primary Care Pro vider Allergies Active Allergy Reactions Criticality Noted Date Comments Aspirin 04/20/2025 GI upset and bleeding Dicyclomine 05/26/2023 Ibuprofen 04/20/2025 GI upset Medications No known medications Encounters Date Type Department Care Team Description 05/28/2025 10:00 AM EDT Pre-Admission Testing [facility] Pre Procedure Evaluation Center [address] [place] [phone] Michela Matt MD Arrived 04/20/2025 1:15 PM EDT Office Visit [facility] [address] [address] Michela Matt MD Cicatricial ectropion of right [...] (Latest Contact Info) Description 06/11/2025 Procedure Pass [facility] [address] [place] [address] 06/11/2025 12:15 PM EDT Hospital Encounter [facility] [address] [place] [address] Michela Matt MD [address] [place] [phone] [email or web address] 06/11/2025 12:15 PM EDT - 06/11/2025 1:15 PM EDT Surgery [facility] [address] [place] [address] Michela Matt MD [address] [place] [phone] [email or web address] LATERAL TARSAL STRIP 06/29/2025 2:30 PM EDT Office Visit [facility] [address] [facility] 10th [place] [address] Michela Matt MD [address] [place] [phone] [email or web address]@[email or web address] Scheduled Procedures Name Priority Associated Diagnoses Date/Ti mt LATERAL TARSAL STRIP Ectropion of right upper [...] [facility] Care Teams Knife Setter Grinder Machine Relationship Specialty Start Date End Date Leta Soto MD [address] [place] [phone] PCP - General Internal Medicine 01/05/25 Additional Source Comments The information contained in this document represents components of the legal health record. It is not the complete legal health record.[facility]
--- OUTSIDE RECORDS SUMMARY | 2025-05-28 16:16 | XMS_ITS | Encounter Summary ---
Author Organization [employer] Address [address] [facility] 7t [place] [address] Care Team Providers Care Rn Gynecology Name Role Phone Leta Soto MD Primary Care Pro vider Yajaira Antonio Unavailable Encounter Details Date Type Department Care Team (Late st Contact Info) Description 04/13/2025 Results Follow-Up [facility] [address] [place] [address] Leta Soto MD [address] [place] [address] CT Cervical Spine w/o Contrast Social History [...] Description 06/09/2025 9:45 AM EDT Office Visit [facility] [address] [place] [phone] Leta Soto MD [address] [place] [address] documented as of this encounter Goals Goal [...] documented as of this encounter Care Teams Rn Gynecology Relationship Specialty Start Date End Date Leta Soto MD [address] [place] [phone] PCP - General Internal Medicine 04/11/23 Yajaira Antonio [address] [place] [address] 3rd [place] [address] Gastroenterology 09/04/24 [facility] 01/28/25 documented as of this encounter
--- OUTSIDE RECORDS SUMMARY | 2025-05-28 16:16 | XMS_ITS | Clinical Summary ---
Author Organization [employer] Address [address] [facility] [address] [place] [address] Care Team Providers Care [employer] Name Role Phone Leta Soto MD Primary [...] if needed for wheezing. 18 g 2 3 Active amLODIPine (Norvasc) 5 MG tabletIndications :Essential hypertension Take 1 tablet (5 mg) by mouth Once per day. 30 tablet 11 5 11/25/19 26 Active furosemide (Lasix) 40 MG tabletIndications :Bilateral leg edema Take 1 tablet (40 mg) by mouth in the morning. 30 tablet 11 5 11/28/19 26 Active clotrimazole (Lotrimin) 1 % cream APPLY TOPICALLY TO THE AFFECTED AREA(S) TWICE DAILY FOR 28 DAYS 5 Active Blood Pressure kitIndications:Hy pertension, unspecified type 1 Device Once per day. 1 kit 5 Active rifAXIMin (Xifaxan) 550 MG tablet Take 1 tablet (550 mg) by mouth at noon and 1 tablet (550 mg) in the evening. 180 tablet 5 Active ferrous gluconate (Fergon) 324 (38 Fe) MG tablet Take 1 tablet (324 mg) by mouth 3 (three) times a week. 12 tablet 4 5 03/16/20 26 Active sildenafil (Viagra) 25 MG tabletIndications :Essential hypertension Take 1 tablet (25 mg) by mouth if needed each day for erectile dysfunction. 10 tablet 5 Active carvedilol (Coreg) 3.125 MG tablet Take 1 tablet (3.125 mg) by mouth with breakfast and with evening meal. 60 tablet 2 5 Active lactulose (Chronulac) 10 GM/15ML solution TAKE 45 ML BY MOUTH THREE TIMES DAILY DIRECTED 1350 mL 3 5 Active Active Problems Problem Noted Date Diagnosed Date [...] his advocate PLAN: 1. Follow up with [facility]: Not recommended for follow-up 2. Patient goal [...] Department Care Team Description 05/22/2025 Orders Only [facility] External Provider, [facility] 05/21/2025 Orders Only GENERIC EXTERNAL DATA DEPARTMENT Provider, Generic External Data 05/20/2025 Orders Only GENERIC EXTERNAL DATA DEPARTMENT Provider, Generic External Data 05/15/2025 Orders Only GENERIC EXTERNAL DATA DEPARTMENT Provider, Generic External Data 04/27/2025 Orders Only [facility] [address] [place] [phone] Veronica Miles, CHANDU 04/27/[address] [address] Leta Soto MD 04/22/[address] [address] Sadia Denny, court officer Changes 04/22/2025 Orders Only [facility] [address] [place] [address] Leta Soto MD 04/21/2025 Orders Only [facility] [address] [place] [address] Imelda Pfeiffer, CHANDU Healthcare maintenance 04/20/[address] [address] Leta Soto MD FYI 04/17/2025 9:20 AM EDT Office Visit [facility] [address] [place] [phone] Leta Forte MD Essential hypertension (Primary Dx); Erectile dysfunction, unspecified erectile dysfunction type 04/17/2025 Travel 04/16/2025 Refill [facility] Luca [place], [place]ES[place] [address] Leta Soto MD 04/14/2025 Telephone [facility] [place] [address] Leta Soto MD [facility] (I called the patient at [phone], regarding his request for [employer] [facility], and reached a recording stating that the number is not in service. I then called [phone], and he stated that he needs assistance with transferring and walking, because he has swelling in his legs, and falls frequently. He also needs assistance with getting to appointments. I informed him that a rental representative from [facility] would be in contact with him, to schedule an evaluation. He is currently living at the [facility],) 04/13/2025 Results Follow-Up [facility] [place] [address] Cervical Spine w/o Contrast 04/11/2025 Orders Only GENERIC EXTERNAL DATA DEPARTMENT Provider, Generic External Data 03/30/2025 Orders Only GENERIC EXTERNAL DATA DEPARTMENT Provider, Generic External Data 03/26/2025 Telephone [facility] [place] [address] Sadia Denny RN Medication Compliance; Referral 03/24/2025 Orders Only GENERIC EXTERNAL DATA DEPARTMENT Provider, Generic External Data 03/24/2025 Telephone [facility] [place] [address] Leta Soto MD 03/23/2025 Results Follow-Up [facility] [place] [address] Head w/o Contrast, Ammonia, Plasma, Urinalysis, Complete, with Reflex to Culture, Additional followed-up results: 9 03/21/2025 Orders Only GENERIC EXTERNAL DATA DEPARTMENT Provider, Generic External Data 03/18/2025 Refill [facility] [place] [address] Leta Soto MD 03/17/2025 Results Follow-Up [address] [place] [address] Leta Soto MD XR Chest 2 Views 03/17/2025 Telephone [facility] [place] [address] Yamel Khanna, RN Care Coordination 03/17/2025 Patient Outreach [address] [place] [address] Leta Soto MD 03/16/2025 Orders Only [address] [place] [address] Leta Soto MD 03/16/[address] [place] [address] Leta Soto MD Image order 03/12/2025 10:00 AM EDT Office Visit [address] [place] [address] Leta Soto MD Hypertension, unspecified type (Primary [...] use; Syncope, unspecified syncope type 03/12/2025 Telephone [facility] [place] [address] Leta Soto MD Prior Authorization 03/12/2025 Travel 03/11/[address] [place] [address] Leta Soto MD Chart Prep 03/06/[address] [address] Leta Soto MD FYI 02/26/2025 Orders Only [...] Office Visit [facility] [address] [place] [address] Leta Soto MD [address] [place] [address] Health Maintenance Due Date Last Done Comments [...] PM EDT Narrative 05/22/2025 3:54 PM EDT [place] [address] [address] Scan Report Signed Patient: Adelso Beebe MR#: [id number] : 1960 Acct:[id number] Age/Sex: 64 / M ADM Date: 05/22/25 Loc: HO.ED Attending Dr: Ordering Physician: Jorge Wang MD Date of Service: 05/22/25 Procedure(s): CT head/brain wo IV con Accession Number(s): [id number] cc: Jorge Wang MD; Leta Soto MD Report Number: [id number]: Total DLP = 682.00 mGy-cm Reason for [...] 05/22/25 1551 DD/ 1527 TD/TT: 05/22/25 1541 Wet Mix Operator: Procedure Note Donotuseinterpreter, Image - 05/22/[address] [address] [address] Scan Report Signed Patient: Adelso BeebeMR#: [id number] : 1960cct:[id number] Age/Sex: 64 / MADM Date: 05/22/25 Loc: HO.ED Attending Dr: Ordering Physician: Jorge Wang MD Date of Service: 05/22/25 Procedure(s): CT head/brain wo IV con Accession Number(s): [id number] cc: Jorge Wang MD; Leta Soto MD Report Number: [id number]: Total DLP = 682.00 mGy-cm Reason for [...] 05/22/25 1551 DD/ 1527 TD/TT: 05/22/25 1541 Wet Mix Operator: [facility] External Provider IMG CT PROCEDURES Final Result * Slide Review (05/22/2025 2:41 PM EDT) Only the most recent of4 resultswithin the time period is included. Slide Review VERIFIED [facility] 05/22/2025 2:41 PM EDT 05/22/2025 2:45 PM EDT Generic External Data Provider LAB BLOOD ORDERAB LES Final Result Performing Organization Address [facility] de Phone Number [facility] [address] [place] [phone] * High Sensitivity Troponin I (05/22/2025 2:41 PM EDT) Only the most recent of3 resultswithin the time period is included. [facility] TROPONIN I HIGH SENSITIVITY 34.9 <3.5 - 35.0 ng/L [facility] Comment:The Clifford high sens itivity Troponin-I results should beused in conjunction with other diagnostic information suchas ECG, clinical observations and information, and patientsymptoms to aid in the diagnosis of MD. 05/22/2025 2:41 PM EDT 05/22/2025 2:45 PM EDT Generic External Data Provider LAB BLOOD ORDERAB LES Final Result Performing Organization Address [facility] de Phone Number [facility] [address] [place] [phone] * Ethanol (05/22/2025 2:41 PM EDT) Only the most recent of4 resultswithin the time period is included. [facility] ETHANOL (MG/DL) IN SER/PLAS <10 mg/dL [facility] Comment:Serum/plasma ethanol results are to be used formedical/treatment purposes only. 05/22/2025 2:41 PM EDT 05/22/2025 2:45 PM EDT Generic External Data Provider LAB BLOOD ORDERAB LES Final Result Performing Organization Address [facility] de Phone Number [facility] [address] [place] [phone] * (ABNORMAL) CBC auto differential (05/22/2025 2:41 PM EDT) Only the most recent of5 resultswithin the time period is included. [facility] White Blood Count 1.8(L) 4.8 - 10.8 X10*3/uL [facility] Red Blood Count 3.52(L) 4.60 - 5.80 X10*6/uL [facility] Hemoglobin 9.2(L) 14.0 - 18.0 g/dl [facility] Hematocrit 27.5(L) 42.0 - 52.0 % [facility] Mean Corpuscular Volume 78.1(L) 80.0 - 98.0 fL [facility] Mean Corpuscular Hemoglobin 26.1(L) 27.0 - 33.0 pg [facility] Mean Corpuscular HGB Conc 33.5 31.0 - 36.0 g/dl [facility] Red Cell Distribution Width 14.2 11.0 - 16.0 % [facility] Platelet Count 32(L) 160 - 400 X10*3/uL [facility] Neutrophils Percent Auto 56.9 45 - 73 % [facility] Imm Gran Pct Auto 0.6(H) 0.0 - 0.4 % [facility] Lymphocytes Percent Auto 29.6 20 - 40 % [facility] Monocytes Percent Auto 10.6 2 - 11 % [facility] Eosinophils Percent Auto 1.7 0 - 4 % [facility] Basophils Percent Auto 0.6 0 - 2 % [facility] NRBC Pct Auto 0.0 0.0 - 0.2 /100WBC [facility] Neutrophils Absolute Auto 1.0(L) 2.0 - 8.3 x10*3/uL [facility] Imm Gran Abs Auto 0.01 0.00 - 0.03 X10*3/uL [facility] Lymphocytes Absolute Auto 0.5(L) 1.2 - 4.9 X10*3/uL [facility] Monocytes Absolute Auto 0.2 0.1 - 1.2 X10*3/uL [facility] Eosinophils Absolute Auto 0.0 0.0 - 0.4 X10*3/uL [facility] Basophils Absolute Auto 0.0 0.0 - 0.2 X10*3/uL [facility] NRBC Abs Auto 0.000 0.0 - 0.012 X10*3/uL [facility] 05/22/2025 2:41 PM EDT 05/22/2025 2:45 PM EDT Generic External Data Provider LAB BLOOD ORDERAB LES Edited Result - Final Performing Organization Address [facility]/ZIP Co de Phone Number [facility] [address] [place] [phone] * (ABNORMAL) Ammonia, Plasma (05/22/2025 2:41 PM EDT) Only the most recent of4 resultswithin the time period is included. Ammonia (P) 130(H) 13 - 55 umol/L [facility] 05/22/2025 2:41 PM EDT 05/22/2025 2:45 PM EDT Generic External Data Provider LAB BLOOD ORDERAB LES Final Result Performing Organization Address [facility] Co de Phone Number [facility] [address] [place] [phone] * (ABNORMAL) Comprehensive Metabolic Panel (05/22/2025 2:41 PM EDT) Only the most recent of4 resultswithin the time period is included. Sodium 143 135 - 145 mmol/L [facility] Potassium 4.2 3.3 - 5.1 mmol/L [facility] Chloride 117(H) 96 - 108 mmol/L [facility] Carbon Dioxide 22 22 - 29 mmol/L [facility] Anion Gap 8(L) 12 - 20 [facility] Urea Nitrogen (BUN) 14 9 - 16 mg/dL [facility] Creatinine, Serum 0.92 0.5 - 1.4 mg/dL [facility] Creatinine Clr Calc Pharmacy 100.1 [facility] Comment:eGFR (calculated fro m the MDRD study equation) and eCrCl(calculated from the Cockcroft-Gault equation) are based ondifferent parameters and may not yield comparable results.If eCrCl result is absurd, please check patient'sheight/weight. Estimated Glomerular Filt Rate >60 [facility] Comment:Chronic Kidney Disea se: Estimated GFR < 60 mL/min/1.68t3Taejfe Kidney Disease: Estimated GFR < 15 mL/min/1.73m2 Glucose 87 60 - 115 mg/dL [facility] Calcium 8.2(L) 8.4 - 10.2 mg/dL [facility] Bilirubin, Total 1.6(H) 0.0 - 1.0 mg/dL [facility] Comment:Slight Icterus. Aspartate Amino Transferase 41(H) 5 - 37 U/L [facility] Alanine Aminotransferase 25 0 - 40 U/L [facility] Total Protein 6.4(L) 6.5 - 8.0 g/dL [facility] Albumin Level 3.1(L) 3.5 - 5.0 g/dL [facility] Alkaline Phosphatase 126(H) 39 - 117 U/L [facility] 05/22/2025 2:41 PM EDT 05/22/2025 2:45 PM EDT us Generic External Data Provider LAB BLOOD ORDERAB LES Final Result [facility] [address] [place] [phone] * XR Chest 1 View (05/22/2025 2:22 PM EDT) Only the most recent of2 resultswithin the time period is included. Anatomical Region Laterality Modality Chest Radiographic Susy ging 05/22/2025 2:22 PM EDT Narrative 05/22/2025 2:39 PM EDT [address] [address] XRay Report Signed Patient: Adelso Beebe MR#: [id number] : 1960 Acct:[id number] Age/Sex: 64 / M ADM Date: 05/22/25 Loc: HO.ED Attending Dr: Ordering Physician: Jorge Wang MD Date of Service: 05/22/25 Procedure(s): XR chest 1V Accession Number(s): [id number] cc: Jorge Wang MD; Leta Soto MD [...] 05/22/25 1436 DD/ 1422 TD/TT: 05/22/25 1432 Wet Mix Operator: Procedure Note Donotuseinterpreter, Image - 05/22/[address] [address] XRay Report Signed Patient: Adelso BeebeMR#: [id number] : 1960cct:[id number] Age/Sex: 64 / MADM Date: 05/22/25 Loc: .ED Attending Dr: Ordering Physician: Jorge Wang MD Date of Service: 05/22/25 Procedure(s): XR chest 1V Accession Number(s): [id number] cc: Jorge Wang MD; Leta Soto MD [...] Strong MD in OV> 05/22/25 1436 DD/ 142 TD/TT: 05/22/25 143 Wet Mix Operator: [facility] External Provider IMG XR PROCEDURES Final Result * Hematoxylin and Eosin Stain (05/21/2025 2:15 PM EDT) 05/21/2025 2:15 PM EDT 05/21/2025 2:50 PM EDT [facility] - 05/25/2025 5:25 PM EDT ----- ------- Name: Godfrey McmanusAdelso Age/Sex: 64/M : 1960 Unit#: [id number] Attend Dr: Yajaira Antonio MD Re05/21/25 Status: [facility] Location: [facility] Disch: ----- ------- SPEC : [id number] RECD: 05/21/25 STATUS: OUMOU FONSECA NUM: [id number] CASSI: 05/21/[address] [facility] DR: Yajaria Antonio MD ENTERED: 05/21/25 SP TYPE: Surgical OTHR DR: Leta Soto [...] microscopic examination, 6 pieces in cassette A. ([facility]) Special studies ordered and performed: Immunostain for H. pylori; AB/PAS stains IHC S/NG Disclaimer NOTE: Unless otherwise stated, all tissue is formalin-fixed and paraffin-embedded. Some or all of the immunohistochemical tests reported herein may have been developed and their performance characteristics determined by [facility]. They have not been cleared or approved by the U.S. Food and Drug Administration (FDA). However, the FDA has determined that such clearance or approval is not necessary. This laboratory is certified under the Clinical Laboratory Improvement Amendments of 1988 (CLIA) as qualified to perform high complexity clinical laboratory testing. Copies To: Leta Soto MD [address] [place] [phone] CONTINUED ON NEXT PAGE ----- ------- Name: Adelso Beebe Age/Sex: 64/M : 1960 Unit#: [id number] Attend Dr: Yajaira Antonio MD Re05/21/25 Status: [facility] Location: [facility] Disch: ----- ------- SPEC : [id number] RECD: 05/21/25-145 STATUS: OUMOU RAYMUNDO NUM: [id number] CASSI: 05/21/25-[address] [facility] DR: Yajaira Antonio MD ENTERED: 05/21/25-150 SP TYPE: Surgical OTHR DR: Leta Soto MD ORDERED: HE Stain/3, Gross Micro L4, IHC, Special st. 2, H. pylori, AB/PAS Copies To: (Continued) Yajaira Antonio MD [facility] [address] [place] [phone] [email or web address] ----- ------- Signed (signature on file) Raul Blunt MD 05/25/25 5598 ----- ------- END OF REPORT Generic External Data Provider LAB BLOOD ORDERAB LES Final Result Performing Organization Address [facility] Co de Phone Number [facility] [address] [place] [phone] * Pheresis Platelets (05/20/2025 10:46 AM EDT) Pheresis Platelets [id number] AP PHPLT TRANSFUSED 05/21/25 1333 [id number] AP PHPLT TRANSFUSED 05/21/25 1223 [facility] 05/20/2025 10:4 6 AM EDT 05/20/2025 11:19 AM EDT Generic External Data Provider LAB BLOOD BANK TE ST ORDERABLES Final Result Performing Organization Address [facility] de Phone Number [facility] [address] [place] [phone] * Type and screen (05/20/2025 10:46 AM EDT) Only the most recent of2 resultswithin the time period is included. Blood Type ON [facility] Antibody Screen NEGATIVE [facility] 05/20/2025 10:4 6 AM EDT 05/20/2025 11:19 AM EDT Narrative [facility] - 05/26/2025 11:30 AM EDT WITNESSED BY SARAH.NURSING:Call Blood Bank (ext. [phone]) to band patient on admission.Type and Screen [...] BLOOD BANK TE ST ORDERABLES Final Result [facility] [address] [place] [phone] * Urinalysis, Complete, with Reflex to Culture (05/15/2025 2:19 PM EDT) Only the most recent of3 resultswithin the time period is included. Color Urine Yellow [facility] Appearance Urine Clear [facility] PH 8.0 5.0 - 9.0 [facility] Glucose Urine UA Negative Negative mg/dL [facility] Urine Blood Negative Negative [facility] Specific [place] - Urine 1.010 1.005 - 1.025 [facility] Urine Protein Negative Neg-Trace mg/dL [facility] Urine Ketones Negative Negative mg/dL [facility] Nitrite Urine Negative Negative [facility] Leukocyte Esterase Urine Negative Negative [facility] RBC Urine 0-2 0 - 2 /HPF [facility] Urine WBC 0-5 0 - 5 /HPF [facility] Urine Squamous Epithelial Cell 0-2 0 - 2 /HPF [facility] Urine Bacteria None Seen None Seen [facility] Hyaline Casts, Urine 0-2 0 - 2 /LPF [facility] 05/15/2025 2:19 PM EDT 05/15/2025 2:33 PM EDT Narrative [facility] - 05/15/2025 2:44 PM EDT Urine, Clean Catch Generic External Data Provider LAB URINE ORDERAB LES Final Result Performing Organization Address [facility]/ZIP Co de Phone Number [facility] [address] [place] [phone] * (ABNORMAL) B Type Natriuretic Peptide (BNP) (05/15/2025 2:19 PM EDT) B Type Natriuretic Peptide 178(H) <100 pg/mL [facility] 05/15/2025 2:19 PM EDT 05/15/2025 2:33 PM EDT Generic External Data Provider LAB BLOOD ORDERAB LES Final Result Performing Organization Address [facility] de Phone Number [facility] [address] [place] [phone] * (ABNORMAL) Prothrombin Time-INR (05/15/2025 11:23 AM EDT) Only the most recent of2 resultswithin the time period is included. Prothrombin Time 16.1(H) 10.9 - 12.4 SEC [facility] INTERNATIONAL NORM RATIO 1.4(H) 0.9 - 1.1 [facility] Comment:INTERNATIONAL NORMAL IZED RATIO [...] ORDERAB LES Final Result Performing Organization Address [facility] de Phone Number [facility] [address] [place] [phone] * Syphilis Screen (04/21/2025 10:43 AM EDT) Pathologist [facility] Syphilis Screen Nonreactive Nonreactive [facility] 04/21/2025 10:4 3 AM EDT 04/21/2025 1:18 PM EDT us Leta Dick MD LAB BLOOD ORDERAB LES Final Result Performing Organization Address [facility] de Phone Number [facility] [address] [place] [phone] * Hepatitis C Viral RNA, Quantitative, Real-Time PCR (04/21/2025 10:43 AM EDT) [facility] Hepatitis C Viral Load <15 NOT DETECTED NOT DETECTED IU/mL [facility] HCV Log PCR <1.18 NOT DETECTED NOT DETECTED Log IU/mL [facility] Comment:For additional infor tash, please refer tohttp://education.Nfoshare/faq/GRK86d6(This link is being provided for informational/educational purposes only.)THIS TEST WAS PERFORMED AT:[facility] [place] [id number] STRICKLAND MD 04/21/2025 10:4 3 AM EDT 04/22/2025 8:54 AM EDT Leta Dick MD LAB BLOOD ORDERAB LES Final Result Performing Organization Address [facility]/ZIP Co de Phone Number [facility] [address] [place] [phone] * (ABNORMAL) Hepatitis C Antibody with Reflex to HCV, RNA, Quantitative, Real- Time PCR (04/21/2025 10:43 AM EDT) Pathologist [facility] Hepatitis C Antibody Reactive( A) Nonreactive [facility] Comment:Presumptive evidence of antibodies to HCV. 04/21/2025 10:4 3 AM EDT 04/21/2025 1:18 PM EDT Leta Dick MD LAB BLOOD ORDERAB LES Final Result Performing Organization Address [facility] Co de Phone Number [facility] [address] [place] [phone] * HIV-1 RNA, Quantitative, Real-Time PCR (04/21/2025 10:43 AM EDT) [facility] HIV RNA PCR Qn Copies NOT DETECTED NOT DETECTED copies/mL [facility] HIV RNA PCR Qn Log Copies NOT DETECTED NOT DETECTED [facility] Comment:Result Units: Log co pies/mLThis test was performed using Real-Time Polymerase ChainReaction.Reportable Range: 20 copies/mL to 10,000,000 copies/mL(1.30 log copies/mL to 7.00 log copies/mL).THIS TEST WAS PERFORMED AT:[facility] [address] [id number] STRICKLAND MD 04/21/2025 10:4 3 AM EDT 04/21/2025 1:18 PM EDT us Leta Dick MD LAB BLOOD ORDERAB LES Final Result Performing Organization Address [facility] Co de Phone Number [facility] [address] [place] [phone] * RPR (Monitor) with Reflex to??Titer (04/21/2025 10:43 AM EDT) RPR (Monitor) w/Refl Titer NON-REACTI VE NON-REACT [place] [facility] Comment:THIS TEST WAS PERFOR MED AT:[facility] [place] [id number] STRICKLAND MD Rapid Plasma Reagin Ab Titer TNP [facility] 04/21/2025 10:4 3 AM EDT 04/21/2025 1:18 PM EDT Leta Dick MD LAB BLOOD ORDERAB LES Final Result [facility] [address] [place] [phone] * Chlamydia/Gonorrhea Throat Swab ([facility]) (04/21/2025) Chlamydia Throat Swab Negative Gonorrhea Throat Swab Negative Swab 04/21/2025 Historical Provider LAB MICROBIOLOGY - GENERA L ORDERABLES Final Result * Chlamydia/Gonorrhea, Urine ([facility]) (04/21/2025) Chlamydia, Urine Negative Negative, Indeterminate, [...] AM EDT Narrative 04/12/2025 12:28 AM EDT [address] [place] [address] CT Scan Report Signed Patient: Adelso Beebe MR#: [id number] : 1960 Acct:[id number] Age/Sex: 64 / M ADM Date: 04/11/25 Loc: HO.ED Attending Dr: Ordering Physician: Cash Reno MD Date of Service: 04/11/25 Procedure(s): CT cervical spine wo IV con Accession Number(s): [id number] cc: Cash Reno MD; [facility] Report Number: [id number]: Total DLP = 462.38 mGy-cm CLINICAL HISTORY: [...] MD in OV> 04/12/2526 DD/ TD/TT: 04/12/2525 Wet Mix Operator: Procedure Note Donotuseinterpreter, Image - 04/12/[address] [address] [address] Scan Report Signed Patient: Adelso BeebeMR#: [id number] : 1960cct:[id number] Age/Sex: 64 / MADM Date: 04/11/25 Loc: HO.ED Attending Dr: Ordering Physician: Cash Reno MD Date of Service: 04/11/25 Procedure(s): CT cervical spine wo IV con Accession Number(s): [id number] cc: Cash Reno MD; [facility] Report Number: [id number]: Total DLP = 462.38 mGy-cm CLINICAL HISTORY: [...] MD in OV> 04/12/2526 DD/ TD/TT: 04/12/2525 Wet Mix Operator: [facility] External Provider IMG CT PROCEDURES Final Result * Magnesium (04/11/2025 11:22 PM EDT) Only the most recent of3 resultswithin the time period is included. Pathologist [facility] Magnesium 2.0 1.6 - 2.6 mg/dL [facility] 04/11/2025 11:2 2 PM EDT 04/11/2025 11:26 PM EDT Generic External Data Provider LAB BLOOD ORDERAB LES Final Result [facility] [address] [place] [phone] * Urinalysis w/reflex microscopic (03/30/2025 5:24 PM EDT) Color Urine Dark Yellow [facility] Appearance Urine Clear [facility] PH 6.0 5.0 - 9.0 [facility] Glucose Urine UA Negative Negative mg/dL [facility] Urine Blood Negative Negative [facility] Specific [place] - Urine 1.025 1.005 - 1.025 [facility] Urine Protein Negative Neg-Trace mg/dL [facility] Urine Ketones Trace Negative mg/dL [facility] Nitrite Urine Negative Negative [facility] Leukocyte Esterase Urine Negative Negative [facility] 03/30/2025 5:24 PM EDT 03/30/2025 5:31 PM EDT Narrative [facility] - 03/30/2025 5:42 PM EDT [id number], Clean Catch us Generic External Data Provider LAB URINE ORDERAB LES Final Result Performing Organization Address City/State/[facility] Co de Phone Number [facility] [address] [place] [phone] * XR Knee 1-2 Views Right (03/30/2025 3:18 PM EDT) Anatomical Region Laterality Modality Lower Extremities, Knee Right Radiogra phic Imaging 03/30/2025 3:18 PM EDT Narrative 03/30/2025 4:30 PM EDT [place] [address] XRay Report Signed Patient: Adelso Beebe MR#: [id number] : 1960 Acct:[id number] Age/Sex: 64 / M ADM Date: 03/30/25 Loc: .ED Attending Dr: Ordering Physician: Jorge Wang MD Date of Service: 03/30/25 Procedure(s): XR knee RT 2V Accession Number(s): [id number] cc: Jorge Wang MD; Leta Soto MD [...] 03/30/25 1626 DD/ 1518 TD/TT: 03/30/25 161 Wet Mix Operator: Procedure Note Donotuseinterpreter, Image - 03/30/[address] [address] XRay Report Signed Patient: Adelso BeebeMR#: [id number] : 1960cct:[id number] Age/Sex: 64 / MADM Date: 03/30/25 Loc: .ED Attending Dr: Ordering Physician: Jorge Wang MD Date of Service: 03/30/25 Procedure(s): XR knee RT 2V Accession Number(s): [id number] cc: Jorge Wang MD; Leta Soto MD [...] 03/30/25 1626 DD/ 1518 TD/TT: 03/30/25 161 Wet Mix Operator: [facility] External Provider IMG XR PROCEDURES Final Result * XR Hip right with Pelvis 1 view (03/30/2025 3:17 PM EDT) Anatomical Region Laterality Modality Lower Extremities, Hip Bilateral Radiograp hic Imaging 03/30/2025 3:17 PM EDT Narrative 03/30/2025 4:30 PM EDT [address] [address] XRay Report Signed Patient: Adelso Beebe MR#: [id number] : 1960 Acct:[id number] Age/Sex: 64 / M ADM Date: 03/30/25 Loc: HO.ED Attending Dr: Ordering Physician: Jorge Wang MD Date of Service: 03/30/25 Procedure(s): XR hip RT w PEL1V Accession Number(s): [id number] cc: Jorge Wang MD; Leta Soto MD [...] 03/30/25 1628 DD/ 1517 TD/TT: 03/30/25 1618 Wet Mix Operator: Procedure Note Donotuseinterpreter, Image - 03/30/[address] [address] XRay Report Signed Patient: Adelso BeebeMR#: [id number] : 1960cct:[id number] Age/Sex: 64 / MADM Date: 03/30/25 Loc: HO.ED Attending Dr: Ordering Physician: Jorge Wang MD Date of Service: 03/30/25 Procedure(s): XR hip RT w PEL1V Accession Number(s): [id number] cc: Jorge Wang MD; Leta Soto MD [...] 03/30/25 1628 DD/ 1517 TD/TT: 03/30/25 1618 Wet Mix Operator: [facility] External Provider IMG XR PROCEDURES Final Result * US Abdomen Limited (03/26/2025 10:11 AM EDT) Anatomical Region Laterality Modality Abdomen Ultrasound 03/26/2025 10:1 1 AM EDT Narrative 03/26/2025 11:08 AM EDT [place] [address] Ultrasound Report Signed Patient: Adelso Beebe MR#: [id number] : 1960 Acct:[id number] Age/Sex: 64 / M ADM Date: 03/24/25 Loc: [facility] 450-[address]: Getachew Vega MD Ordering Physician: Getachew Vega MD Date of Service: 03/26/25 Procedure(s): US abdomen limited Accession Number(s): [id number] cc: Getachew Vega MD; Leta Soto MD [...] 03/26/25 1105 DD/ 1011 TD/TT: 03/26/25 1028 Wet Mix Operator: Procedure Note Donotuseinterpreter, Image - 03/26/[address] [address] Ultrasound Report Signed Patient: Adelso BeebeMR#: [id number] : 2Acct:[id number] Age/Sex: 64 / MADM Date: 03/24/25 Loc: [facility] 450-[address]: Getachew Vega MD Ordering Physician: Getachew Vega MD Date of Service: 03/26/25 Procedure(s): US abdomen limited Accession Number(s): [id number] cc: Getachew Vega MD; Leta Soto MD [...] Hale MD Signed By: <Electronically signed by aRo Hale MD in OV> 03/26/25 1105 DD/ 1011 TD/TT: 03/26/25 1028 Wet Mix Operator: [facility] External Provider IMG US PROCEDURES Edited Result - Final * MR Brain w/o Contrast (03/24/2025 6:18 PM EDT) Anatomical Region Laterality Modality Brain Magnetic Resonan ce 03/24/2025 6:18 PM EDT Narrative 03/24/2025 6:19 PM EDT [address] [address] Magnetic Resonance Report Signed Patient: Adelso Beebe MR#: [id number] : 1960 Acct:[id number] Age/Sex: 64 / M ADM Date: 03/24/25 Loc: HO.ED Attending Dr: Ordering Physician: Edwin Davis MD Date of Service: 03/24/25 Procedure(s): MR head/brain wo con Accession Number(s): [id number] cc: Leta Soto MD; Edwin Davis MD [...] in OV> 03/24/251818 DD/ 17 TD/TT: 03/24/251817 Wet Mix Operator: Procedure Note Donotuseinterpreter, Image - 03/24/2025 [place] [address] Magnetic Resonance Report Signed Patient: Adelso BeebeMR#: [id number] : 1960cct:[id number] Age/Sex: 64 / MADM Date: 03/24/25 Loc: HO.ED Attending Dr: Ordering Physician: Edwin Davis MD Date of Service: 03/24/25 Procedure(s): MR head/brain wo con Accession Number(s): [id number] cc: Leta Soto MD; Edwin Davis MD [...] in OV> 03/24/251818 DD/ 17 TD/TT: 03/24/251817 Wet Mix Operator: [facility] External Provider IMG MRI PROCEDURES Final Result * (ABNORMAL) VENOUS BLOOD GAS (03/24/2025 2:32 PM EDT) Pathologist [facility] VBG pH 7.54(H) 7.32 - 7.43 [facility] Comment:METER #: [id number] additional_comment: Jeferson dickinson VBG PCO2 25 mmHg [facility] Comment:METER #: [id number] additional_comment: Cb rogalt VBG PO2 99 mmHg [facility] Comment:METER #: [id number] additional_comment: Cb rogalt VBG Base Excess 0.3 mmol/L [facility] Comment:METER #: [id number] additional_comment: Cb felicityalt VBG HCO3 21(L) 22 - 26 mmol/L [facility] Comment:METER #: [id number] additional_comment: Cb alok O2 Sat, [place] 100.0 % [facility] Comment:METER #: [id number] additional_comment: Cb felicityalt 03/24/2025 2:32 PM EDT 03/24/2025 2:37 PM EDT us Generic External Data Provider LAB BLOOD ORDERAB LES Final Result Performing Organization Address [facility] Co de Phone Number [facility] [address] [place] [phone] * Lipase (03/21/2025 12:11 PM EDT) [facility] Lipase 41 8 - 78 U/L [facility] 03/21/2025 12:1 1 PM EDT 03/21/2025 12:14 PM EDT Generic External Data Provider LAB BLOOD ORDERAB LES Final Result Performing Organization Address [facility] Co de Phone Number [facility] [address] [place] [phone] * Lactic Acid (03/21/2025 12:11 PM EDT) Lactic Acid 1.6 0.5 - 2.0 mmol/L [facility] 03/21/2025 12:1 1 PM EDT 03/21/2025 12:14 PM EDT Generic External Data Provider LAB BLOOD ORDERAB LES Final Result Performing Organization Address [facility] Co de Phone Number [facility] [address] [place] [phone] * Glucose, Whole Blood (03/21/2025 10:55 AM EDT) Glucose, Whole Blood 83 60 - 115 mg/dL [facility] Comment:METER #: [id number] 03/21/2025 10:5 5 AM EDT 03/23/2025 8:12 AM EDT Generic External Data Provider LAB BLOOD ORDERAB LES Final Result Performing Organization Address [facility] de Phone Number [facility] [address] [place] [phone] * XR Chest 2 Views (03/17/2025 8:06 AM EDT) Anatomical Region Laterality Modality Chest Radiographic Susy ging 03/17/2025 8:06 AM EDT Narrative 03/17/2025 9:11 AM EDT [address] [address] XRay Report Signed Patient: Adelso Beebe MR#: [id number] : 1960 Acct:[id number] Age/Sex: 64 / M ADM Date: 03/17/25 Loc: HO.HHCX Attending Dr: Leta Dick MD Ordering Physician: Leta Soto MD Date of Service: 03/17/25 Procedure(s): XR chest 2V Accession Number(s): [id number] cc: Leta Soto MD EXAMINATION: XR CHEST [...] OV> 03/17/25908 DD/ 0806 TD/TT: 03/17/25 0858 Wet Mix Operator: Procedure Note Donotuseinterpreter, Image - 03/17/[address] [address] XRay Report Signed Patient: Adelso BeebeMR#: [id number] : 1960cct:[id number] Age/Sex: 64 / MADM Date: 03/17/25 Loc: HO.HHCX Attending Dr: Leta Dick MD Ordering Physician: Leta Soto MD Date of Service: 03/17/25 Procedure(s): XR chest 2V Accession Number(s): [id number] cc: Leta Soto MD EXAMINATION: XR CHEST [...] OV> 03/17/2509 DD/ 0806 TD/TT: 03/17/25 0858 Wet Mix Operator: Leta Dick MD IMG XR PROCEDURES Edited Result - Final * Drug Monitoring, Panel 1, Screen, Urine (02/26/2025 2:17 PM EDT) Opiate Screen Urine Not Detected Not Detect [facility] Comment:Opiate cut-off is 30 0 ng/mL.Positive results are unconfirmed and should not be used fornon-medical purposes. Barbiturates, Urine Not Detected Not Detect [facility] Comment:Barbiturate cut-off is 200 ng/mL.Positive results are unconfirmed and should not be used fornon-medical purposes. Phencyclidine Screen Urine Not Detected Not Detect [facility] Comment:Phencyclidine cut-of f is 25 ng/mL.Positive results are unconfirmed and should not be used fornon-medical purposes. Amphetamine Screen Urine Not Detected Not Detect [facility] Comment:Amphetamine cut-off is 1000 ng/mL.Positive results are unconfirmed and should not be used fornon-medical purposes. Benzodiazepines Screen Urine Not Detected Not Detect [facility] Comment:Benzodiazepine cut-o ff is 200 ng/mL.Positive results are unconfirmed and should not be used fornon-medical purposes. Cocaine Screen Urine Not Detected Not Detect [facility] Comment:Cocaine cut-off is 3 00 ng/mL.Positive results are unconfirmed and should not be used fornon-medical purposes. Cannabinoid Screen Urine Not Detected Not Detect [facility] Comment:Cannabinoid cut-off is 50 ng/mL.Positive results are unconfirmed and should not be used fornon-medical purposes. Methadone Screen, Urine Not Detected Not Detect ng/mL [facility] Comment:Methadone cut-off is 300 ng/mL.Positive results are unconfirmed and should not be used fornon-medical purposes. FENTANYL URINE Not Detected Not Detect [facility] Comment:Fentanyl cut-off is 1 ng/mL.Positive results are unconfirmed and should not be used fornon-medical purposes. Oxycodone Urine Screen Not Detected Not Detect ng/mL [facility] Comment:Oxycodone cut-off is 100 ng/mL.Positive results are unconfirmed and should not be used fornon-medical purposes. Buprenorphine Screen Not Detected Not Detect ng/mL [facility] Comment:Buprenorphine cut-of f is 5 ng/mL.Positive results are unconfirmed and should not be used fornon-medical purposes. 02/26/2025 2:17 PM EDT 02/26/2025 2:21 PM EDT us Generic External Data Provider LAB URINE ORDERAB LES Final Result [facility] [address] [place] [phone] * Lipid Panel, Standard (04/06/2023 10:00 AM EDT) Triglycerides 94 mg/dL [facility] Comment:Desirable Triglyceri de: less than 150 mg/dLBorderline High Triglyceride 150-199 mg/dLHigh Triglyceride: 200-499 mg/dLVery High Triglyceride: greater than or equal to 5OO mg/dL Cholesterol 79 mg/dL [facility] Comment:Desirable Cholestero l: less than 200 mg/dLBorderline High Cholesterol: 200-239 mg/dLHigh Cholesterol: greater than 239 mg/dL LDL Cholesterol Calculated 36 mg/dl [facility] Comment:Desirable LDL: less than 100 mg/dLNear Optimal/Above Optimal LDL: 110- 129 mg/dLBorderline High LDL: 130-159 mg/dLHigh LDL: 160-189 mg/dLVery High LDL: greater than or equal to 190 mg/dL HDL Cholesterol 25 mg/dL [facility] Comment:Desirable HDL: great er than 40 mg/dL Note: This HDL assay may give artificially low results in patients with liver disease. Blood Venous blood specimen / Unknown 04/06/2023 10:00 AM EDT 04/06/2023 11:20 AM EDT Ann Piña [facility] LAB BLOOD ORDERABLES Final Resul t [facility] [address] [place] [phone] from Last 3 Months or Most Recently Relevant to Health Maintenance Insurance [employer] C3 Care Teams [employer] Relationship Specialty Start Date End Date Leta Soto MD [address] [place] [phone] PCP - General Internal Medicine 04/11/23 Yajaira Antonio [address] [place] [address] 3[address] [place] [address] Gastroenterology 09/04/24 [facility] 01/28/25
--- OUTSIDE RECORDS SUMMARY | 2025-05-28 16:16 | XMS_ITS | Encounter Summary ---
Author Organization [employer] Address [address] [facility] [address]t [place] [address] Care Team Providers Care Label Machine Operator Name Role Phone Leta Soto [...] [facility] [address] [place] [phone] Leta Soto MD [address] [place] [address] documented as of this encounter Goals Goal [...] 2:15 PM EDT 05/21/2025 2:50 PM EDT [facility] - 05/25/2025 5:25 PM EDT ----- ------- Name: Adelso Beebe Age/Sex: 64/M : 1960 Unit#: [id number] Attend Dr: Yajaira Antonio MD Re05/21/[address] [facility] Location: [facility] Disch: ----- ------- SPEC : [id number] RECD: 05/21/25-145 STATUS: OUMOU FONSECA NUM: [id number] CASSI: 05/21/25-[address] [facility] [address]: Yajaira Antonio MD ENTERED: 05/21/25-5508 SP TYPE: Surgical OTHR DR: Leta Soto [...] microscopic examination, 6 pieces in cassette A. ([facility]) Special studies ordered and performed: Immunostain for H. pylori; AB/PAS stains IHC S/NG Disclaimer NOTE: Unless otherwise stated, all tissue is formalin-fixed and paraffin-embedded. Some or all of the immunohistochemical tests reported herein may have been developed and their performance characteristics determined by [facility]. They have not been cleared or approved by the U.S. Food and Drug Administration (FDA). However, the FDA has determined that such clearance or approval is not necessary. This laboratory is certified under the Clinical Laboratory Improvement Amendments of 1988 (CLIA) as qualified to perform high complexity clinical laboratory testing. Copies To: Leta Soto MD [address] [place] [phone] CONTINUED ON NEXT PAGE ----- ------- Name: Godfrey McmanusAdelso Age/Sex: 64/M : 1960 Unit#: [id number] Attend Dr: Yajaira Antonio MD Re05/21/[address] [facility] Location: [facility] Disch: ----- ------- SPEC : [id number] RECD: 05/21/25-6397 STATUS: OUMOU FONSECA NUM: [id number] CASSI: 05/21/25-[address] [facility] [address]: Yajaira Antonio MD ENTERED: 05/21/25-3594 SP TYPE: Surgical OTHR DR: Leta Soto MD ORDERED: HE Stain/3, Gross Micro L4, IHC, Special st. 2, H. pylori, AB/PAS Copies To: (Continued) Yajaira Antonio MD [facility] [address] [place] [phone] [email or web address] ----- ------- Signed (signature on file) Raul Blunt MD 05/25/25 1725 ----- ------- END OF REPORT us Generic External Data Provider LAB BLOOD ORDERAB LES Final Result [facility] [address] [place] [phone] documented in this encounter Visit Diagnoses Not on filedocumented in this encounter Additional Health Concerns Assessment Noted Time PHQ-9 Depression Total Score: 0 03/12/20 25 10:25 AM EDT documented as of this encounter Care Teams Label Machine Operator Relationship Specialty Start Date End Date Leta Soto MD [address] [place] [phone] PCP - General Internal Medicine 04/11/23 Yajaira Antonio [address] [place] [address] 3rd [place] [address] Gastroenterology 09/04/24 [facility] 01/28/25 documented as of this encounter
--- OUTSIDE RECORDS SUMMARY | 2025-05-28 16:16 | XMS_ITS | Encounter Summary ---
Author Organization [employer] Address [address] [facility] 7t [place] [address] Care Team Providers Care Fast Food Shift Supervisor Name Role Phone Leta Soto MD Primary Care Pro vider Yajaira Antonio Unavailable Encounter Details Date Type Department Care Team (Late st Contact Info) Description 12/17/2023 Orders Only [facility] [address] [place] [address] Tatyana Mosquera FNP [address] [place] [address] Social History Tobacco Use Types Packs/Day Years [...] 9:45 AM EDT Office Visit [facility] MED[facility]INE [address] [place] [phone] Leta Soto MD [address] [place] [phone] documented as of this encounter Goals Goal [...] documented as of this encounter Care Teams Fast Food Shift Supervisor Relationship Specialty Start Date End Date Leta Soto MD [address] [place] [phone] PCP - General Internal Medicine 04/11/23 Yajaira Antonio [address]rd [place] [address] Gastroenterology 09/04/24 [facility] 01/28/25 documented as of this encounter
--- OUTSIDE RECORDS SUMMARY | 2025-05-28 16:16 | XMS_ITS ---
Author Organization [employer] Address [address] [facility] 7t [place] [address] Care Team Providers Care [employer] Dairy Farm Supervisor Name Role Phone Leta Soto MD [...] Phone Stanley Mckeon RN(Responsible Staff) Registered Nurse [phone] Continued Care and Services Coordination
--- OUTSIDE RECORDS SUMMARY | 2025-05-28 16:16 | XMS_ITS ---
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 Needs support managing specialist appointments. Please outreach for enrollment. Case Team Name Relationship Phone Chata Puente(Responsible Staff) [phone] Continued Care and Services Coordination
--- OUTSIDE RECORDS SUMMARY | 2025-05-28 16:16 | XMS_ITS | Encounter Summary ---
Author Organization [employer] Address [address] [facility] 7t [place] [address] Care Team Providers Care Water Plant Pump Operator Supervisor Name Role Phone Leta Soot MD Primary Care Pro vider Yajaira Antonio Unavailable Encounter Details Date Type Department Care Team (Late st Contact Info) Description 04/21/2025 Orders Only [facility] [address] [place] [address] Imelda Pfeiffer, CHANDU [address] [place] [address] Healthcare maintenance Social History Tobacco Use Types [...] Description 06/09/2025 9:45 AM EDT Office Visit [facility] [address] [place] [address] [phone] Leta Soto MD [address] [place], [place] [phone] Scheduled Orders Name Type Priority Associated Diagnoses [...] Load <15 NOT DETECTED NOT DETECTED IU/mL [facility] HCV Log PCR <1.18 NOT DETECTED NOT DETECTED Log IU/mL [facility] Comment:For additional infor tash, please refer [email or web address].FaceBuzz/faq/[email or web address](This link is being provided for informational/educational purposes only.)THIS TEST WAS PERFORMED AT:[address] [place] [id number] STRICKLAND MD 04/21/2025 10:4 3 AM EDT 04/22/2025 8:54 AM EDT us Leta Dick MD LAB BLOOD ORDERAB LES Final Result [facility] [address] [place] [phone] * HIV-1 RNA, Quantitative, Real-Time PCR (04/21/2025 10:43 AM EDT) HIV RNA PCR Qn Copies NOT DETECTED NOT DETECTED copies/mL [facility] HIV RNA PCR Qn Log Copies NOT DETECTED NOT DETECTED [facility] Comment:Result Units: Log co pies/mLThis test was performed using Real-Time Polymerase ChainReaction.Reportable Range: 20 copies/mL to 10,000,000 copies/mL(1.30 log copies/mL to 7.00 log copies/mL).THIS TEST WAS PERFORMED AT:[address] [place] [id number] STRICKLAND MD 04/21/2025 10:4 3 AM EDT 04/21/2025 1:18 PM EDT us Leta Dick MD LAB BLOOD ORDERAB LES Final Result [facility] [address] [place] [phone] * RPR (Monitor) with Reflex to??Titer (04/21/2025 10:43 AM EDT) RPR (Monitor) w/Refl Titer NON-REACTI VE NON-REACT [place] [facility] Comment:THIS TEST WAS PERFOR MED AT:[address] [place] [id number] STRICKLAND MD Rapid Plasma Reagin Ab Titer TNP [facility] 04/21/2025 10:4 3 AM EDT 04/21/2025 1:18 PM EDT us Leta Dick MD LAB BLOOD ORDERAB LES Final Result [facility] [address] [place] [phone] * (ABNORMAL) Hepatitis C Antibody with Reflex to HCV, RNA, Quantitative, Real- Time PCR (04/21/2025 10:43 AM EDT) Hepatitis C Antibody Reactive( A) Nonreactive [facility] Comment:Presumptive evidence of antibodies to HCV. 04/21/2025 10:4 3 AM EDT 04/21/2025 1:18 PM EDT us Leta Dick MD LAB BLOOD ORDERAB LES Final Result Performing Organization Address [facility]/ZIP Co de Phone Number [facility] [address] [place] [phone] * Syphilis Screen (04/21/2025 10:43 AM EDT) Syphilis Screen Nonreactive Nonreactive [facility] 04/21/2025 10:4 3 AM EDT 04/21/2025 1:18 PM EDT us Leta Dick MD LAB BLOOD ORDERAB LES Final Result Performing Organization Address [facility] Co de Phone Number [facility] [address] [place] [phone] documented in this encounter Visit Diagnoses Diagnosis Healthcare maintenance documented in this encounter Additional Health Concerns Assessment Noted Time PHQ-9 Depression Total Score: 0 03/12/20 25 10:25 AM EDT documented as of this encounter Care Teams Water Plant Pump Operator Supervisor Relationship Specialty Start Date End Date Leta Soto MD [address] [place] [phone] PCP - General Internal Medicine 04/11/23 Yajaira Antonio [address] [place] [address] Drive 3rd [place] [address] Gastroenterology 09/04/24 [facility] 01/28/25 documented as of this encounter
== END 2025-05-28 14:30 | disposition home or self-care (01) ==
LOC: HO.CT 14:29
PROVIDERS: PCP Student in an Organized Health Care Education/Training Program; Visit Provider Internal Medicine
DX: Z13.89 Encounter for screening for other disorder (principal)

== ENCOUNTER 2025-06-04 12:39 | Inpatient (IN) | payer MEDICAID, SELFPAY ==
--- OUTSIDE RECORDS SUMMARY | 2025-05-30 10:40 | XMS_ITS | Encounter Summary ---
Author Organization [employer] Address [address] [facility] [address] 7[address] [place] [address] Care Team Providers Care Ultrasound Technologist Sonographer Name Role Phone Leta Soto MD Primary Care Pro vider Yajaira Antonio Unavailable Reason for Visit * Reason Comments Walk-In Sore in right side o f mouth, inside cheek Encounter Details Date Type Department Care Team (Late st Contact Info) Description 05/30/2025 10:40 AM EDT Office Visit [facility] [address] [place] [address] Victoriano Beyer MD [address] [place] [address] Oral ulcer (Primary Dx) Social History Tobacco Use Types Packs/Day Years [...] PM EDT documented as of this encounter Last Filed Vital Signs Vital Sign Reading Time Taken Comments Blood Pressure 156/68 05/30/2025 10:40 AM EDT Pulse 75 05/30/2025 10:40 AM EDT Temperature 36.5 C (97.7 F) 05/30/2025 10:40 AM EDT Respiratory Rate 18 05/30/2025 10:40 AM EDT Oxygen Saturation 99% 05/30/2025 10:40 AM EDT Inhaled Oxygen Concentration - - Weight 100 kg (221 lb) 05/30/2025 10:40 AM EDT Height - - Body Mass Index 30.82 04/17/2025 9:16 AM EDT documented in this encounter Progress Notes * Victoriano Beyer MD - 05/30/2025 10:40 AM EDT Subjective History was provided by the patient. Adelso Mcmanus is a 64 y.o. male who presents for evaluation of an oral sore. Started after biting inside of his right cheek. Still present after 3 weeks. No bleeding or discharge. No F/C/N/V/D. No cough, congestion, rhinorrhea, or sore throat. Bothersome with food intake. Has not seen a dentist in many years. Underlying cirrhosis wit history of hepatic encephalopathy and pancytopenia (WBC 1.8, H/H 9.2/27.5,PLT 32 on 05/22/2025). Currently on Lactulose & Rifaximin. Objective Vitals: 05/30/25 1040 BP: (!) 156/68 BP Location: Right arm Patient Position: Sitting BP Cuff Size: Adult long Pulse: 75 Resp: 18 Temp: 97.7 ??F (36.5 ??C) TempSrc: Oral SpO2: 99% Weight: 221 lb (100 kg) Physical Exam Constitutional: Appearance: Normal appearance. HENT: Head: Normocephalic and atraumatic. Right Ear: External ear normal. Left Ear: External ear normal. Nose: No congestion or rhinorrhea. Mouth/Throat: Mouth: Mucous membranes are moist. Pharynx: No oropharyngeal exudate or posterior oropharyngeal erythema. Comments: 8mm x 6mm ulceration inside of right cheek; no surrounding erythema or edema; no acute hemorrhage Eyes: Extraocular Movements: Extraocular movements intact. Comments: Right-sided anopthalmic socket Pulmonary: Effort: Pulmonary effort is normal. Musculoskeletal: Cervical back: Neck supple. Lymphadenopathy: Cervical: No cervical adenopathy. Skin: General: Skin is warm and dry. Neurological: General: No focal deficit present. Mental Status: He is alert and oriented to person, place, and time. Psychiatric: Mood and Affect: Mood normal. Behavior: Behavior normal. Adelso was seen today for walk-in. Diagnoses and all orders for this visit: Oral ulcer (Primary) - diphenhydrAMINE (BENADryl) 12.5 MG/5ML elixir; Magic Mouth Wash: Mix equal amount (60mL) of Benadryl + Maalox + Viscous Lidocaine (total 180mL). Use 5mL PO swish and spit 4x/day before meals and bedtime PRN. - aluminum-magnesium hydroxide-simethicone (Maalox) 200-200-20 MG/5ML suspension; Magic Mouth Wash:Mix equal amount (60mL) of Benadryl + Maalox + Viscous Lidocaine (total 180mL). Use 5mL PO swish and spit 4x/day before meals and bedtime PRN. - lidocaine (Xylocaine) 2 % solution; Magic Mouth Wash: Mix equal amount (60mL) of Benadryl + Maalox + Viscous Lidocaine (total 180mL). Use 5mL PO swish and spit 4x/day before meals and bedtime PRN. Patient presents to [facility] with an oral ulcer Likely traumatic (reports history of biting inside of his right cheek) Would expect to heal, but present for 3 weeks now Underlying cirrhosis, hepatic encephalopathy, and pancytopenia Has not had any dental care for many years Recommended Magic Mouth Wash use prior to meals and sleep If non-healing, may require further evaluation with a biopsy (which is complicated by his low platelet) Discussed risks, benefits, and alternatives of further evaluation if persistent symptoms Patient has an upcoming appointment with PCP in 10 days Also encouraged to seek care with [facility] Dental department Indications for UC/ER use reviewed Advised to contact the clinic if persistent or worsening symptoms documented in this encounter Plan of Treatment Upcoming Encounters Date Type Department Care Team (Late st Contact Info) Description 06/09/2025 9:45 AM EDT Office Visit [facility] [address] [place] [address] [phone] Leta Soto MD [address] [place] [phone] documented as of this encounter Goals Goal Patient Goal Type Associated Problems Recent Progress Patient-Stated? Author Blood Pressure < 140/90 Blood Pressure 156/68(2024 10:40 AM EDT) No Loan Talbot Record your blood pressure once per day Blood Pressure No Loan Talbot documented as of this encounter Visit Diagnoses Diagnosis Oral ulcer- Primary Other and unspecified diseases of the oral soft tissues documented in this encounter Additional Health Concerns Assessment Noted Time PHQ-9 Depression Total Score: 0 03/12/20 25 10:25 AM EDT documented as of this encounter Care Teams Ultrasound Technologist Sonographer Relationship Specialty Start Date End Date Leta Soto MD [address] [place] [phone] PCP - General Internal Medicine 04/11/23 Yajaira Antonio [address] [place] [address] Drive 3rd [place] [address] Gastroenterology 09/04/24 [facility] 01/28/25 documented as of this encounter
[2025-06-04 12:44] VITALS: BP 170/80; PULSE 90; O2SAT 100
[2025-06-04 12:45] VITALS: BP 140/47; PULSE 59; RESP 14; TEMP 36.6; O2SAT 100; BMI 24.4
[2025-06-04 14:10] VITALS: BP 129/47; PULSE 55; RESP 14; O2SAT 100
[2025-06-04 14:35] LABS: Imm Gran Abs Auto 0.00 X10*3/uL (0.00-0.03); Imm Gran Pct Auto 0.0 % (0.0-0.4); Lymphocytes Absolute Auto 0.7 X10*3/uL (1.2-4.9); NRBC Abs Auto 0.000 X10*3/uL (0.0-0.012); NRBC Pct Auto 0.0 /100WBC (0.0-0.2)
[2025-06-04 14:37] LABS: Hematocrit 26.6 % (42.0-52.0); Hemoglobin 8.4 g/dl (14.0-18.0); Mean Corpuscular HGB Conc 31.6 g/dl (31.0-36.0); Mean Corpuscular Hemoglobin 25.1 pg (27.0-33.0); Mean Corpuscular Volume 79.6 fL (80.0-98.0); Red Blood Count 3.34 X10*6/uL (4.60-5.80)
[2025-06-04 14:38] LABS: PLT ABN DIST 1; Platelet Count 32 X10*3/uL (160-400); White Blood Count 2.3 X10*3/uL (4.8-10.8)
--- NOTE | 2025-06-04 14:40 | ED.AMS ---
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 Patient has frequent admissions for hepatic encephalopathy. Patient is [place] Citizen-speaking, he is confused as to his current location, he states he is in the hospital because he takes medications in the box , and he does not want to take him anymore, he is alert to self in his date of but otherwise and is not aware of the year, or current location or situation. My understanding is that he was presenting from [facility] custodial. Patient denies any headaches, and there was no reports of trauma no reports of fevers or chills. Related Data Home Medications ?Medication ?Instructions ?Recorded ?Confirmed blood pressure test kit-large #1 ea 05/27/25 (Omron Blood Pressure Monitor-3 Series kit) Previous Rx's ?Medication ?Instructions ?Recorded walker #1 ea 02/08/25 amlodipine 5 mg tablet 5 mg PO DAILY #90 tabs 04/21/25 lactulose 10 gram/15 mL oral 40 g (60 mL) PO BID #1,200 mL 05/17/25 solution rifaximin 550 mg tablet (Xifaxan) 550 mg PO BID 90 days #180 tabs 05/27/25 Allergies Allergy/AdvReac Type Severity Reaction Status Date / Time dicyclomine (From Bentyl) Allergy Unknown Verified 06/04/25 12:58 aspirin AdvReac Severe stomach Verified 06/04/25 12:58 bleeding NSAIDS (Non-Steroidal AdvReac Severe liver Verified 06/04/25 12:58 Anti-Inflamma concerns Review of Systems Review of Systems: Yes Unobtainable due to mental status PMFSH Past Medical History Medical History Portal vein thrombosis Eye abnormality Cirrhosis of liver Pancytopenia Hyperammonemia Pancytopenia Obesity (BMI 30.0-34.9) Fall Pancytopenia Hepatic encephalopathy Cirrhosis Splenic vein thrombosis Sepsis Cirrhosis of liver with ascites Abdominal pain Thrombocytopenia Pancytopenia Cirrhosis Hepatitis C virus infection Esophageal varices Pancytopenia Iron deficiency anemia Cirrhosis Hepatitis C HBP (high blood pressure) Surgical History S/P TIPS (transjugular intrahepatic portosystemic shunt) H/O left inguinal hernia repair H/O eye surgery History of esophagogastroduodenoscopy (EGD) H/O colonoscopy Family History Family History Maternal Grandmother Breast CA Uterus cancer Mother Primary lung cancer of unknown cell type Social History Social History Household Members: None Household Members Other:: pt comes from a custodial Housing: Other Housing Other:: custodial Are you a primary ocular care technician to a significant other at home: No Alcohol intake: former Comment: pt refusing alarm's Patient Tobacco Use Status: Current everyday Tobacco user Tobacco use type: Cigarette Cigarette Packs Per Day: 1 Cigarettes Per Day: 0.5 Years Smoked: 45 e-Cigarette/Vaping Use: Never Used Second Hand Smoke Exposure: No Substance Use Type: Heroin Advance Directives: Yes Advance Directives on File: Yes Advance Directives Date on File: 04/02/24 service: No Current occupational status: retired Physical Exam ED Vital Signs: Vital Signs - 24 hr 06/04/25 12:45 06/04/25 14:10 06/04/25 16:31 Temperature 97.9 F 98.2 F Pulse Rate 59 55 61 Respiratory Rate 14 14 18 Blood Pressure 140/47 H 129/47 L 134/51 L Pulse Oximetry 100 100 99 Oxygen Delivery Method Room Air Room Air Room Air BMI result Body Mass Index 24.4 Const Other: Gen: ?Looks at his baseline, no facial trauma, no head trauma HEENT: No scleral icterus, missing right eye Neck: Supple, no LAD CV: S1-S2 RRR Resp: ?No wheezing rales rhonchi no stridor moving air well Abd: ?Bowel sounds are present, no tenderness no rebound no rigidity MSK: FROM, strength 5/5 all extremities Skin: Warm, dry, intact, no jaundice Neuro: ?Alert and oriented to self in his date of , moving upper and lower extremities symmetrically, no obvious facial asymmetry noted Medical Decision Making Medical Decision Making MDM Narrative: 2:45 PM 06/04/2025 (Dr. Tres Macdonald): This is unfortunately recurrent issue with this patient who has history of hepatitis-C induced liver failure with frequent visits for hepatic encephalopathy, medication noncompliance, he has additional issues such as chronic pancytopenia, hyperammonemia, hypotension, he does have history of varices but there was no reports of hematemesis or hematochezia, there was no evidence for any trauma or neurologic deficits that would necessitate further imaging such as CT he has had multiple CTs and he just had a CT when he presented to the ER on the of this month. , I have had to sedate him in the past as he was attempting to elope the ER this is not the case at this time, at least at the time of my initial evaluation 4:48 PM 06/04/2025 (Dr. Tres Macdonald): Patient's ammonia level is 64 we will she is on all the low end of the spectrum for him but as he is not taking his medications I anticipate that this is going to continue to rise and is already affected him at this time he is not as encephalopathic as I usually see him but at this point I do not feel that he would be a safe discharge, I am going to plan to admit him but I also feel that psychiatry needs to be involved in his care because this is a recurrent issue and we need to find out whether he has capacity to make decisions or whether he needs to be placed. I sent an admission to Dr. Faraz Sylvester, as I project patient we will decompensate further. I also called and left a message for Marc barrett [facility] who called the ER Differential Diagnosis Differential Diagnoses: The differential diagnosis associated with the presentation includes (Hepatic encephalopathy, trauma, stroke, electrolyte derangements, dehydration) Admission/Observation Consideration of admission/observation: Escalation of care including admission/observation considered Consult Healthcare Provider Management of the patient was discussed with: Hospitalist and Behavioral Health Provider (Marc, [facility] [phone], extension [phone], or [phone]) Lab Data [facility] Lab Attestation statement: I reviewed the patient's lab results. 06/04/25 14:25 06/04/25 14:25 Labs: Lab Results 06/04/25 06/04/25 06/04/25 Range/Units 14:25 15:34 15:54 WBC 2.3 L (4.8-10.8) X10*3/uL RBC 3.34 L (4.60-5.80) X10*6/uL Hgb 8.4 L (14.0-18.0) g/dl Hct 26.6 L (42.0-52.0) % MCV 79.6 L (80.0-98.0) fL MCH 25.1 L (27.0-33.0) pg MCHC 31.6 (31.0-36.0) g/dl RDW 14.4 (11.0-16.0) % Plt Count 32 L D (160-400) X10*3/uL MPV TNP Immature Gran % (Auto) 0.0 (0.0-0.4) % Neut % (Auto) 57.6 (45-73) % Lymph % (Auto) 29.2 (20-40) % [place] % (Auto) 11.9 H (2-11) % Eos % (Auto) 1.3 (0-4) % Baso % (Auto) 0.0 (0-2) % Lymph # (Auto) 0.7 L (1.2-4.9) X10*3/uL [place] # (Auto) 0.3 (0.1-1.2) X10*3/uL Eos # (Auto) 0.0 (0.0-0.4) X10*3/uL Baso # (Auto) 0.0 (0.0-0.2) X10*3/uL Abs Immat Gran (auto) 0.00 (0.00-0.03) X10*3/uL Absolute Neuts (auto) 1.3 L (2.0-8.3) x10*3/uL Absolute Nucleated RBC 0.000 (0.0-0.012) X10*3/uL Nucleated RBC % (auto) 0.0 (0.0-0.2) /100WBC Sodium 143 (135-145) mmol/L Potassium 4.6 (3.3-5.1) mmol/L Chloride 115 H (96-108) mmol/L Carbon Dioxide 26 (22-29) mmol/L Anion Gap 7 L (12-20) BUN 11 (9-16) mg/dL Creatinine 0.76 (0.5-1.4) mg/dL Estim Creat Clear Calc 102.7 Estimated GFR > 60 Random Glucose 66 (60-115) mg/dL Calcium 8.4 (8.4-10.2) mg/dL Total Bilirubin 1.3 H (0.0-1.0) mg/dL Direct Bilirubin 0.5 (0.0-0.5) mg/dL AST 32 (5-37) U/L ALT 21 (0-40) U/L Alkaline Phosphatase 122 H (39-117) U/L Ammonia (13-55) umol/L Total Protein 6.1 L (6.5-8.0) g/dL Albumin 2.9 L (3.5-5.0) g/dL Lipase 20 (8-78) U/L Urine Color Yellow Urine Appearance Clear Urine pH 7.0 (5.0-9.0) Ur Specific [place] 1.015 (1.005-1.025) Urine Protein Negative (Neg-Trace) mg/dL Urine Glucose (UA) Negative (Negative) mg/dL Urine Ketones Negative (Negative) mg/dL Urine Blood Negative (Negative) Urine Nitrite Negative (Negative) Ur Leukocyte Esterase Negative (Negative) Urine Opiates Screen Not Detected (Not Detect) Ur Buprenorphine Scrn Not Detected (Not Detect) ng/mL Ur Oxycodone Screen Not Detected (Not Detect) ng/mL Urine Methadone Screen Not Detected (Not Detect) ng/mL Urine Fentanyl Screen Not Detected (Not Detect) Ur Barbiturates Screen Not Detected (Not Detect) Ur Phencyclidine Scrn Not Detected (Not Detect) Ur Amphetamines Screen Not Detected (Not Detect) U Benzodiazepines Scrn Not Detected (Not Detect) Urine Cocaine Screen Not Detected (Not Detect) U Marijuana (THC) Screen Not Detected (Not Detect) 06/04/25 Range/Units 16:07 WBC (4.8-10.8) X10*3/uL RBC (4.60-5.80) X10*6/uL Hgb (14.0-18.0) g/dl Hct (42.0-52.0) % MCV (80.0-98.0) fL MCH (27.0-33.0) pg MCHC (31.0-36.0) g/dl RDW (11.0-16.0) % Plt Count (160-400) X10*3/uL MPV Immature Gran % (Auto) (0.0-0.4) % Neut % (Auto) (45-73) % Lymph % (Auto) (20-40) % [place] % (Auto) (2-11) % Eos % (Auto) (0-4) % Baso % (Auto) (0-2) % Lymph # (Auto) (1.2-4.9) X10*3/uL [place] # (Auto) (0.1-1.2) X10*3/uL Eos # (Auto) (0.0-0.4) X10*3/uL Baso # (Auto) (0.0-0.2) X10*3/uL Abs Immat Gran (auto) (0.00-0.03) X10*3/uL Absolute Neuts (auto) (2.0-8.3) x10*3/uL Absolute Nucleated RBC (0.0-0.012) X10*3/uL Nucleated RBC % (auto) (0.0-0.2) /100WBC Sodium (135-145) mmol/L Potassium (3.3-5.1) mmol/L Chloride (96-108) mmol/L Carbon Dioxide (22-29) mmol/L Anion Gap (12-20) BUN (9-16) mg/dL Creatinine (0.5-1.4) mg/dL Estim Creat Clear Calc Estimated GFR Random Glucose (60-115) mg/dL Calcium (8.4-10.2) mg/dL Total Bilirubin (0.0-1.0) mg/dL Direct Bilirubin (0.0-0.5) mg/dL AST (5-37) U/L ALT (0-40) U/L Alkaline Phosphatase (39-117) U/L Ammonia 64 H (13-55) umol/L Total Protein (6.5-8.0) g/dL Albumin (3.5-5.0) g/dL Lipase (8-78) U/L Urine Color Urine Appearance Urine pH (5.0-9.0) Ur Specific [place] (1.005-1.025) Urine Protein (Neg-Trace) mg/dL Urine Glucose (UA) (Negative) mg/dL Urine Ketones (Negative) mg/dL Urine Blood (Negative) Urine Nitrite (Negative) Ur Leukocyte Esterase (Negative) Urine Opiates Screen (Not Detect) Ur Buprenorphine Scrn (Not Detect) ng/mL Ur Oxycodone Screen (Not Detect) ng/mL Urine Methadone Screen (Not Detect) ng/mL Urine Fentanyl Screen (Not Detect) Ur Barbiturates Screen (Not Detect) Ur Phencyclidine Scrn (Not Detect) Ur Amphetamines Screen (Not Detect) U Benzodiazepines Scrn (Not Detect) Urine Cocaine Screen (Not Detect) U Marijuana (THC) Screen (Not Detect) Independent Interpretation I performed an independent interpretation of an: EKG (57 beats per minute otherwise normal ECG without dysrhythmia, AV warren blocks or ST-T changes to suspect underlying ACS, my independent interpretation) Independent Historian Clinical information obtained from an independent historian. History obtained from or confirmed by: EMS External Record Review External record reviewed: Inpatient record Chronic Conditions Patient?s care impacted by: Other (Hep C liver failure) Social Determinants Patient?s care significantly limited by Social Determinants of Health including: Inadequate housing Critical Care Time Critical Care Time Critical Care Time: Yes Total Critical Care Time: 35 Attestation: Time is exclusive of separately billable procedures. Time includes: direct patient care, patient reassessment, coordination of patient care, interpretation of data (laboratory data, pulse oximetry, arterial blood gases and chest xrays), review of patient's medical records, medical consultation and documentation of patient care. Procedures excluded from critical care time: central intravenous line placement and electrocardiography. Discharge Plan Discharge Clinical Impression: Cirrhosis of liver, Acute hepatic encephalopathy Prescriptions: No Action (DME) walker Misc See Rx Instructions .Route Qty: 1 0RF Rx Instructions: As directed lactulose 10 gram/15 mL Solution 40 g PO BID Qty: 1200 0RF (DME) blood pressure test kit-large [Omron BP Monitor-3 Series] Kit See Rx Instructions .ROUTE DAILY Qty: 1 Rx Instructions: As directed Xifaxan 550 mg tablet 550 mg PO BID 90 Days Qty: 180 0RF amlodipine 5 mg tablet 5 mg PO DAILY Qty: 90 0RF Print Language: Spanish
--- NOTE | 2025-06-04 14:44 | ECG_ITS ---
Test Reason : WEAKNES Blood Pressure : */* mmHG Vent. Rate : 57 BPM Atrial Rate : 57 BPM P-R Int : 144 ms QRS Dur : 88 ms QT Int : 444 ms P-R-T Axes : 46 15 67 degrees QTcB Int : 432 ms Sinus bradycardia with sinus arrhythmia Otherwise normal ECG When compared with ECG of 22-May-2025 14:32, No significant change was found Referred By: Tres Macdonald Electronically Signed By: Slick Hoover
[2025-06-04 14:49] LABS: Alanine Aminotransferase 21 U/L (0-40); Albumin Level 2.9 g/dL (3.5-5.0); Alkaline Phosphatase 122 U/L (39-117); Anion Gap 7 (12-20); Aspartate Amino Transferase 32 U/L (5-37); Blood Urea Nitrogen 11 mg/dL (9-16); Calcium 8.4 mg/dL (8.4-10.2); Carbon Dioxide 26 mmol/L (22-29); Chloride 115 mmol/L (96-108); Creatinine Clr Calc Pharmacy 102.7; Estimated Glomerular Filt Rate > 60; Lipase 20 U/L (8-78); Potassium 4.6 mmol/L (3.3-5.1); Sodium 143 mmol/L (135-145); Total Protein 6.1 g/dL (6.5-8.0)
[2025-06-04 15:25] LABS: MANUAL DIFF FLAG NO; SCAN SMEAR FLAG 1
[2025-06-04 15:55] LABS: Cannabinoid Screen Urine Not Detected (Not Detect)
[2025-06-04 16:17] LABS: Appearance Urine Clear; Glucose Urine UA Negative (Negative); PH 7.0 (5.0-9.0); Specific Gravity - Urine 1.015 (1.005-1.025)
[2025-06-04 16:19] LABS: Ammonia 64 umol/L (13-55)
[2025-06-04 16:31] VITALS: BP 134/51; PULSE 61; RESP 18; TEMP 36.8; O2SAT 99
--- NOTE | 2025-06-04 17:51 | P.HPHOSP_ITS ---
History of Present Illness Date of Service: 06/04/25 Attending physician on admission: Faraz Sylvester Chief Complaint: altered mental status This is a 64-year-old male with history of HCV cirrhosis who arrived from residential with confusion. Patient states his medication makes him dizzy. He does not know which medication. In the emergency department lab work was unremarkable. Ammonia level was 64, there was concern for altered mental status, he received a dose of lactulose and admission was requested for altered mental status due to hepatic encephalopathy. Review of Systems 2 Review of Systems: Yes all other systems are reviewed and are negative Constitutional: Constitutional: Denies chills and Denies fever(s) ENT: Denies dizziness Cardiovascular: Cardiovascular: Denies chest pain, Denies palpitations and Denies dyspnea Respiratory: Respiratory: Denies cough and Denies dyspnea Gastrointestinal: Gastrointestinal: Denies abdominal pain Neurologic: Denies dizziness Endocrine: Endocrine: Denies palpitations [facility] Medical History Portal vein thrombosis Eye abnormality Cirrhosis of liver Pancytopenia Hyperammonemia Pancytopenia Obesity (BMI 30.0-34.9) Fall Pancytopenia Hepatic encephalopathy Cirrhosis Splenic vein thrombosis Sepsis Cirrhosis of liver with ascites Abdominal pain Thrombocytopenia Pancytopenia Cirrhosis Hepatitis C virus infection Esophageal varices Pancytopenia Iron deficiency anemia Cirrhosis Hepatitis C HBP (high blood pressure) Family History Maternal Grandmother Breast CA Uterus cancer Mother Primary lung cancer of unknown cell type Surgical History S/P TIPS (transjugular intrahepatic portosystemic shunt) H/O left inguinal hernia repair H/O eye surgery History of esophagogastroduodenoscopy (EGD) H/O colonoscopy Social History Household Members: None Household Members Other:: pt comes from a residential Housing: Other Housing Other:: residential Are you a primary healthcare receptionist to a significant other at home: No Alcohol intake: former Comment: pt refusing alarm's Patient Tobacco Use Status: Current everyday Tobacco user Tobacco use type: Cigarette Cigarette Packs Per Day: 1 Cigarettes Per Day: 0.5 Years Smoked: 45 e-Cigarette/Vaping Use: Never Used Second Hand Smoke Exposure: No Substance Use Type: Heroin Advance Directives: Yes Advance Directives on File: Yes Advance Directives Date on File: 04/02/24 service: No Current occupational status: retired Meds Allergies Allergy/AdvReac Type Severity Reaction Status Date / Time dicyclomine (From Bentyl) Allergy Unknown Verified 06/04/25 12:58 aspirin AdvReac Severe stomach Verified 06/04/25 12:58 bleeding NSAIDS (Non-Steroidal AdvReac Severe liver Verified 06/04/25 12:58 Anti-Inflamma concerns Home Medications ?Medication ?Instructions ?Recorded ?Confirmed ?Last Taken ?Type blood pressure test kit-large #1 ea 05/27/25 Unknown History (Omron Blood Pressure Monitor-3 Series kit) carvedilol 6.25 mg tablet 6.25 mg PO BID 06/04/25 Unk nown History ferrous gluconate 324 mg (38 mg 324 mg PO 3XW 06/04/25 Unknown History iron) tablet furosemide 40 mg tablet 40 mg PO DAILY 06/04/25 Unk nown History lactulose 10 gram/15 mL oral 60 g PO BID 06/04/25 Unk nown History solution losartan 25 mg tablet 25 mg PO QAM 06/04/25 Unkno wn History Physical Exam 2 Vital Signs and Narrative: Vital Signs: Last Vital Signs Temp 98.2 F 06/04/25 16:31 Pulse 61 06/04/25 16:31 Resp 18 06/04/25 16:31 BP 134/51 L 06/04/25 16:31 Pulse Ox 99 06/04/25 16:31 O2 Del Method Room Air 06/04/25 16:31 BMI result Body Mass Index 24.4 Const: General: cooperative, comfortable, alert and awake Nutritional Appearance: average body habitus Orientation/consciousness: patient oriented x3 Resp: Effort & Inspection: normal respiratory effort and able to speak in complete sentences Cardio: Rate: regular rate GI: Inspection: No distended Palpation (GI): Soft to palpation and nontender Neuro: General: patient oriented x3, moves all extremities and CN's II-XI intact bilaterally Results Labs 06/04/25 14:25 06/04/25 14:25 Labs: Laboratory Results - last 24 hr 06/04/25 06/04/25 06/04/25 14:25 15:34 15:54 MCV 79.6 L MCH 25.1 L MCHC 31.6 RDW 14.4 Plt Count 32 L D MPV TNP Immature Gran % (Auto) 0.0 Neut % (Auto) 57.6 Lymph % (Auto) 29.2 Shannon % (Auto) 11.9 H Eos % (Auto) 1.3 Baso % (Auto) 0.0 Lymph # (Auto) 0.7 L Shannon # (Auto) 0.3 Eos # (Auto) 0.0 Baso # (Auto) 0.0 Abs Immat Gran (auto) 0.00 Absolute Neuts (auto) 1.3 L Absolute Nucleated RBC 0.000 Nucleated RBC % (auto) 0.0 Anion Gap 7 L Estim Creat Clear Calc 102.7 Estimated GFR > 60 Random Glucose 66 Calcium 8.4 Total Bilirubin 1.3 H Direct Bilirubin 0.5 AST 32 ALT 21 Alkaline Phosphatase 122 H Ammonia Total Protein 6.1 L Albumin 2.9 L Lipase 20 Urine Color Yellow Urine Appearance Clear Urine pH 7.0 Ur Specific [place] 1.015 Urine Protein Negative Urine Glucose (UA) Negative Urine Ketones Negative Urine Blood Negative Urine Nitrite Negative Ur Leukocyte Esterase Negative Urine Opiates Screen Not Detected Ur Buprenorphine Scrn Not Detected Ur Oxycodone Screen Not Detected Urine Methadone Screen Not Detected Urine Fentanyl Screen Not Detected Ur Barbiturates Screen Not Detected Ur Phencyclidine Scrn Not Detected Ur Amphetamines Screen Not Detected U Benzodiazepines Scrn Not Detected Urine Cocaine Screen Not Detected U Marijuana (THC) Screen Not Detected 06/04/25 16:07 MCV MCH MCHC RDW Plt Count MPV Immature Gran % (Auto) Neut % (Auto) Lymph % (Auto) Shannon % (Auto) Eos % (Auto) Baso % (Auto) Lymph # (Auto) Shannon # (Auto) Eos # (Auto) Baso # (Auto) Abs Immat Gran (auto) Absolute Neuts (auto) Absolute Nucleated RBC Nucleated RBC % (auto) Anion Gap Estim Creat Clear Calc Estimated GFR Random Glucose Calcium Total Bilirubin Direct Bilirubin AST ALT Alkaline Phosphatase Ammonia 64 H Total Protein Albumin Lipase Urine Color Urine Appearance Urine pH Ur Specific [place] Urine Protein Urine Glucose (UA) Urine Ketones Urine Blood Urine Nitrite Ur Leukocyte Esterase Urine Opiates Screen Ur Buprenorphine Scrn Ur Oxycodone Screen Urine Methadone Screen Urine Fentanyl Screen Ur Barbiturates Screen Ur Phencyclidine Scrn Ur Amphetamines Screen U Benzodiazepines Scrn Urine Cocaine Screen U Marijuana (THC) Screen Assessment and Plan (1) Acute hepatic encephalopathy: Status: Acute Plan This is a 64yo M with 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, chronic thrombocytopenia, hepatic encephalopathy, and HTN who was sent in from his residential with confusion Acute metabolic encephalopathy due to hepatic encephalopathy due to decompensated HCV cirrhosis with chronic pancytopenia Lactulose, rifaximin Goal 2-3 bowel movements per day Dizziness resolved at this time Hypertension Amlodipine, carvedilol History of varices Continue carvedilol DVT prophylaxis-mechanical due to thrombocytopenia Med rec pending at the time of admission Full Code Quality Stroke Does the patient have a stroke diagnosis?: No VTE Prior VTE?: No VTE Risk Level:: Medical - moderate - high VTE Device Contraindication: N/A - Device Ordered VTE Drug Contraindication: Treatment Not Indicated
--- OUTSIDE RECORDS SUMMARY | 2025-06-04 17:52 | XMS_ITS | Clinical Summary ---
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 Use 5mL PO swish and spit 4x/day before meals and bedtime PRN. 60 mL 1 5 Active aluminum-magnesiu m hydroxide-simethi cone (Maalox) 200-200-20 MG/5ML suspensionIndicat ions:Oral ulcer Magic Mouth Wash: Mix equal amount (60mL) of Benadryl + Maalox + Viscous Lidocaine (total 180mL). Use 5mL PO swish and spit 4x/day before meals and bedtime PRN. 60 mL 1 5 Active lidocaine (Xylocaine) 2 % solutionIndicatio ns:Oral ulcer Magic Mouth Wash: Mix equal amount (60mL) of Benadryl + Maalox + Viscous Lidocaine (total 180mL). Use 5mL PO swish and spit 4x/day before meals and bedtime PRN. 60 mL 1 5 Active Active Problems Problem Noted Date [...] once established b. Patient [facility] return [facility] for medical needs until a PCP [...] Encounters Date Type Department Care Team Description 06/04/2025 Orders Only GENERIC EXTERNAL DATA DEPARTMENT Provider, Generic External Data 05/30/2025 10:40 AM EDT Office Visit [facility] [place] [address] [place] [address] Victoriano Beyer MD Oral ulcer (Primary Dx) 05/30/2025 Travel 05/22/2025 Orders Only [facility] External Provider, [facility] 05/21/2025 Orders Only GENERIC EXTERNAL DATA DEPARTMENT Provider, Generic External Data 05/20/2025 Orders Only GENERIC EXTERNAL DATA DEPARTMENT Provider, Generic External Data 05/15/2025 Orders Only GENERIC EXTERNAL DATA DEPARTMENT Provider, Generic External Data 04/27/2025 Orders Only [address] [address] Veronica Miles, CHANDU 04/27/[address] [address] Leta Soto MD 04/22/[address] [address] 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 Denny, 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 insurance 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 manager Changes 04/22/2025 Orders Only [address] [place] [address] Leta Soto MD 04/21/2025 Orders Only [address] [address] Imelda Pfeiffer, CHANDU Healthcare maintenance 04/20/[address] [address] Leta Soto MD I 04/17/2025 9:20 AM EDT Office Visit [facility] [address] [address] Leta Forte MD Essential hypertension (Primary Dx); Erectile dysfunction, unspecified erectile dysfunction type 04/17/2025 Travel 04/16/[address] [place] [address] Leta Soto MD 04/14/[address] [place] [address] Leta Soto MD [employer] Services (I called the patient at [phone], regarding his request for [employer] CONTROL [employer] services, and reached a recording stating that the number is not in service. I then called [phone], and he stated that he needs assistance with transferring and walking, because he has swelling in his legs, and falls frequently. He also needs assistance with getting to appointments. I informed him that a motor vehicle representative from [facility] would be in contact with him, to schedule an evaluation. He is currently living at the [facility],) 04/13/2025 Results Follow-Up [facility] [place] [address] Cervical Spine w/o Contrast 04/11/2025 Orders Only GENERIC EXTERNAL DATA DEPARTMENT Provider, Generic External Data 03/30/2025 Orders Only GENERIC EXTERNAL DATA DEPARTMENT Provider, Generic External Data 03/26/2025 Telephone [facility] [place] [address] Sadia Denny RN Medication Compliance; Referral 03/24/2025 Orders Only GENERIC EXTERNAL DATA DEPARTMENT Provider, Generic External Data 03/24/2025 Telephone [facility] [place] [address] Leta Soto MD 03/23/2025 Results [address]-Up [address] [facility] [place] [address] Head w/o Contrast, Ammonia, Plasma, Urinalysis, Complete, with Reflex to Culture, Additional followed-up results: 9 03/21/2025 Orders Only GENERIC EXTERNAL DATA DEPARTMENT Provider, Generic External Data 03/18/2025 Refill [facility] [place] [address] Leta Soto MD 03/17/2025 Results Follow-Up [address] [address] Leta Soto MD XR Chest 2 Views 03/17/2025 [address] [place] [address] Yamel Khanna, CHANDU Care Coordination 03/17/2025 Patient Outreach [address] [place] [address] Leta Soto MD 03/16/2025 Orders Only [address] [place] [address] Leta Soto MD 03/16/[address] [address] Leta Soto MD Image order 03/12/2025 10:00 AM EDT Office Visit [address] [address] Leta Soto MD Hypertension, unspecified type (Primary [...] use; Syncope, unspecified syncope type 03/12/[address] [address] Leta Soto MD Prior Authorization 03/12/2025 Travel 03/11/[address] [address] Leta Soto MD Chart Prep 03/06/[address] [address] Leta Soto MD FYI from Last 3 Months Immunizations Immunization Administration [...] your housing situation today? I have brenna manisha 03/12/[address] you li [...] (221 lb) 05/30/2025 10:40 AM EDT Height 180.3 cm (5' 11 ) 04/17/2025 9:16 AM EDT Body Mass Index 30.82 04/17/2025 9:16 AM EDT Plan of Treatment Upcoming Encounters Date Type Department Care Team (Late st Contact Info) Description 06/09/2025 9:45 AM EDT Office Visit [facility] [address], [place] [phone] Leta Soto MD [address] [place], [place] [phone] Health Maintenance Due Date Last Done Comments [...] 140/90 Blood Pressure 156/68(2024 10:40 AM EDT) [facility] Record your blood pressure once per day Blood Pressure No [facility] Procedures Procedure Name Priority Date/Time Associated Diagnosis Comments AMMONIA (P) Routine 06/04/2025 4:07 PM EDT URINALYSIS WITH REFLEX MICROSCOPIC Routine 06/04/2025 3:54 PM EDT DRUG MONITOR, PANEL 1, SCREEN, URINE Routine 06/04/2025 3:34 PM EDT LIPASE Routine 06/04/2025 2:25 PM EDT HEPATIC FUNCTION PANEL Routine 2:25 PM EDT COMPREHENSIVE METABOLIC PANEL Routine 06/04/2025 2:25 PM EDT CBC WITH AUTO DIFFERENTIAL Routine 06/04/2025 2:[address] HEAD WO CONTRAST Routine 05/22/2025 3 [...] Routine 03/17/2025 8:06 AM EDT Abnormal CXR LIPID PANEL, STANDARD Routine 04/06/2023 10:00 AM EDT Healthcare maintenance from Last 3 Months or Most Recently Relevant to Health Maintenance Results * (ABNORMAL) Ammonia, Plasma (06/04/2025 4:07 PM EDT) Only the most recent of5 resultswithin the time period is included. Ammonia (P) 64(H) 13 - 55 umol/L [facility] 06/04/2025 4:07 PM EDT 06/04/2025 4:10 PM EDT us Generic External Data Provider LAB BLOOD ORDERAB LES Final Result [facility] [address] [place] [phone] * Urinalysis w/reflex microscopic (06/04/2025 3:54 PM EDT) Only the most recent of2 resultswithin the time period is included. Color Urine Yellow [facility] Appearance Urine Clear [facility] PH 7.0 5.0 - 9.0 [facility] Glucose Urine UA Negative Negative mg/dL [facility] Urine Blood Negative Negative [facility] Specific [place] - Urine 1.015 1.005 - 1.025 [facility] Urine Protein Negative Neg-Trace mg/dL [facility] Urine Ketones Negative Negative mg/dL [facility] Nitrite Urine Negative Negative [facility] Leukocyte Esterase Urine Negative Negative [facility] 06/04/2025 3:54 PM EDT 06/04/2025 4:10 PM EDT Narrative [facility] - 06/04/2025 4:30 PM EDT [id number], [employer] us Generic External Data Provider LAB URINE ORDERAB LES Final Result [facility] [address] [place] [phone] * Drug Monitoring, Panel 1, Screen, Urine (06/04/2025 3:34 PM EDT) Opiate Screen Urine Not Detected Not Detect [facility] Comment:Opiate cut-off is 30 0 ng/mL.Positive results are unconfirmed and should not be used fornon-medical purposes. Barbiturates, Urine Not Detected Not Detect [facility] Comment:Barbiturate cut-off is 200 ng/mL.Positive results are unconfirmed and should not be used fornon-medical purposes. Phencyclidine Screen Urine Not Detected Not Detect [facility] Comment:Phencyclidine cut-of f is 25 ng/mL.Positive results are unconfirmed and should not be used fornon-medical purposes. Amphetamine Screen Urine Not Detected Not Detect [facility] Comment:Amphetamine cut-off is 1000 ng/mL.Positive results are unconfirmed and should not be used fornon-medical purposes. Benzodiazepines Screen Urine Not Detected Not Detect [facility] Comment:Benzodiazepine cut-o ff is 200 ng/mL.Positive results are unconfirmed and should not be used fornon-medical purposes. Cocaine Screen Urine Not Detected Not Detect [facility] Comment:Cocaine cut-off is 3 00 ng/mL.Positive results are unconfirmed and should not be used fornon-medical purposes. Cannabinoid Screen Urine Not Detected Not Detect [facility] Comment:Cannabinoid cut-off is 50 ng/mL.Positive results are unconfirmed and should not be used fornon-medical purposes. Methadone Screen, Urine Not Detected Not Detect ng/mL [facility] Comment:Methadone cut-off is 300 ng/mL.Positive results are unconfirmed and should not be used fornon-medical purposes. FENTANYL URINE Not Detected Not Detect [facility] Comment:Fentanyl cut-off is 1 ng/mL.Positive results are unconfirmed and should not be used fornon-medical purposes. Oxycodone Urine Screen Not Detected Not Detect ng/mL [facility] Comment:Oxycodone cut-off is 100 ng/mL.Positive results are unconfirmed and should not be used fornon-medical purposes. Buprenorphine Screen Not Detected Not Detect ng/mL [facility] Comment:Buprenorphine cut-of f is 5 ng/mL.Positive results are unconfirmed and should not be used fornon-medical purposes. 06/04/2025 3:34 PM EDT 06/04/2025 3:36 PM EDT us Generic External Data Provider LAB URINE ORDERAB LES Final Result [facility] [address] [place] [phone] * (ABNORMAL) CBC auto differential (06/04/2025 2:25 PM EDT) Only the most recent of6 resultswithin the time period is included. White Blood Count 2.3(L) 4.8 - 10.8 X10*3/uL [facility] Red Blood Count 3.34(L) 4.60 - 5.80 X10*6/uL [facility] Hemoglobin 8.4(L) 14.0 - 18.0 g/dl [facility] Hematocrit 26.6(L) 42.0 - 52.0 % [facility] Mean Corpuscular Volume 79.6(L) 80.0 - 98.0 fL [facility] Mean Corpuscular Hemoglobin 25.1(L) 27.0 - 33.0 pg [facility] Mean Corpuscular HGB Conc 31.6 31.0 - 36.0 g/dl [facility] Red Cell Distribution Width 14.4 11.0 - 16.0 % [facility] Platelet Count 32(L) 160 - 400 X10*3/uL [facility] Mean Platelet Volume TNP 9.4 - 12.4 fL [facility] Neutrophils Percent Auto 57.6 45 - 73 % [facility] Imm Gran Pct Auto 0.0 0.0 - 0.4 % [facility] Lymphocytes Percent Auto 29.2 20 - 40 % [facility] Monocytes Percent Auto 11.9(H) 2 - 11 % [facility] Eosinophils Percent Auto 1.3 0 - 4 % [facility] Basophils Percent Auto 0.0 0 - 2 % [facility] NRBC Pct Auto 0.0 0.0 - 0.2 /100WBC [facility] Neutrophils Absolute Auto 1.3(L) 2.0 - 8.3 x10*3/uL [facility] Imm Gran Abs Auto 0.00 0.00 - 0.03 X10*3/uL [facility] Lymphocytes Absolute Auto 0.7(L) 1.2 - 4.9 X10*3/uL [facility] Monocytes Absolute Auto 0.3 0.1 - 1.2 X10*3/uL [facility] Eosinophils Absolute Auto 0.0 0.0 - 0.4 X10*3/uL [facility] Basophils Absolute Auto 0.0 0.0 - 0.2 X10*3/uL [facility] NRBC Abs Auto 0.000 0.0 - 0.012 X10*3/uL [facility] 06/04/2025 2:25 PM EDT 06/04/2025 2:29 PM EDT us Generic External Data Provider LAB BLOOD ORDERAB LES Edited Result - Final [facility] [address] [place] [phone] * Lipase (06/04/2025 2:25 PM EDT) Only the most recent of2 resultswithin the time period is included. Lipase 20 8 - 78 U/L [facility] 06/04/2025 2:25 PM EDT 06/04/2025 2:29 PM EDT Generic External Data Provider LAB BLOOD ORDERAB LES Final Result Performing Organization Address City/[facility]/ZIP Co de Phone Number [facility] [address] [place] [phone] * Hepatic Function Panel (06/04/2025 2:25 PM EDT) Pathologist [facility] Bilirubin, Direct 0.5 0.0 - 0.5 mg/dL [facility] 06/04/2025 2:25 PM EDT 06/04/2025 2:29 PM EDT Generic External Data Provider LAB BLOOD ORDERAB LES Final Result Performing Organization Address City/[facility] Co de Phone Number [facility] [address] [place] [phone] * (ABNORMAL) Comprehensive Metabolic Panel (06/04/2025 2:25 PM EDT) Only the most recent of5 resultswithin the time period is included. Sodium 143 135 - 145 mmol/L [facility] Potassium 4.6 3.3 - 5.1 mmol/L [facility] Chloride 115(H) 96 - 108 mmol/L [facility] Carbon Dioxide 26 22 - 29 mmol/L [facility] Anion Gap 7(L) 12 - 20 [facility] Urea Nitrogen (BUN) 11 9 - 16 mg/dL [facility] Creatinine, Serum 0.76 0.5 - 1.4 mg/dL [facility] Creatinine Clr Calc Pharmacy 102.7 [facility] Comment:eGFR (calculated fro m the MDRD study equation) and eCrCl(calculated from the Cockcroft-Gault equation) are based ondifferent parameters and may not yield comparable results.If eCrCl result is absurd, please check patient'sheight/weight. Estimated Glomerular Filt Rate >60 [facility] Comment:Chronic Kidney Disea se: Estimated GFR < 60 mL/min/1.96j7Opwkeu Kidney Disease: Estimated GFR < 15 mL/min/1.73m2 Glucose 66 60 - 115 mg/dL [facility] Calcium 8.4 8.4 - 10.2 mg/dL [facility] Bilirubin, Total 1.3(H) 0.0 - 1.0 mg/dL [facility] Aspartate Amino Transferase 32 5 - 37 U/L [facility] Alanine Aminotransferase 21 0 - 40 U/L [facility] Total Protein 6.1(L) 6.5 - 8.0 g/dL [facility] Albumin Level 2.9(L) 3.5 - 5.0 g/dL [facility] Alkaline Phosphatase 122(H) 39 - 117 U/L [facility] 06/04/2025 2:25 PM EDT 06/04/2025 2:29 PM EDT us Generic External Data Provider LAB BLOOD ORDERAB LES Final Result [facility] [address] [place] [phone] * CT Head w/o Contrast (05/22/2025 3:27 PM EDT) Only the most recent of3 resultswithin the time period is included. Anatomical Region Laterality Modality Head, Neck Computed Tomogra phy 05/22/2025 3:27 PM EDT Narrative 05/22/2025 3:54 PM EDT [address] [address] [address] Scan Report Signed Patient: Adelso Beebe MR#: [id number] : 1960 Acct:[id number] Age/Sex: 64 / M ADM Date: 05/22/25 Loc: HO.ED Attending Dr: Ordering Physician: Jorge Wang MD Date of Service: 05/22/25 Procedure(s): CT head/brain wo IV con Accession Number(s): [id number] cc: Jorge Wang MD; Leta Soto MD Report Number: [id number]: Total DLP = 682.00 mGy-cm Reason for [...] 05/22/25 1551 DD/ 1527 TD/TT: 05/22/25 1541 Emergency Communications Operator: Procedure Note Donotuseinterpreter, Image - 05/22/[address] [address] [address] Scan Report Signed Patient: Adelso BeebeMR#: [id number] : 1960cct:[id number] Age/Sex: 64 / MADM Date: 05/22/25 Loc: HO.ED Attending Dr: Ordering Physician: Jorge Wang MD Date of Service: 05/22/25 Procedure(s): CT head/brain wo IV con Accession Number(s): [id number] cc: Jorge Wang MD; Leta Soto MD Report Number: [id number]: Total DLP = 682.00 mGy-cm Reason for [...] 05/22/25 1551 DD/ 1527 TD/TT: 05/22/25 1541 Emergency Communications Operator: [facility] External Provider IMG CT PROCEDURES Final Result * Slide Review (05/22/2025 2:41 PM EDT) Only the most recent of4 resultswithin the time period is included. Slide Review VERIFIED [facility] 05/22/2025 2:41 PM EDT 05/22/2025 2:45 PM EDT us Generic External Data Provider LAB BLOOD ORDERAB LES Final Result Performing Organization Address [facility] de Phone Number [facility] [address] [place] [phone] * High Sensitivity Troponin I (05/22/2025 2:41 PM EDT) Only the most recent of3 resultswithin the time period is included. TROPONIN I HIGH SENSITIVITY 34.9 <3.5 - 35.0 ng/L [facility] Comment:The Clifford high sens itivity Troponin-I results should beused in conjunction with other diagnostic information suchas ECG, clinical observations and information, and patientsymptoms to aid in the diagnosis of OR. 05/22/2025 2:41 PM EDT 05/22/2025 2:45 PM EDT us [employer] External Data Provider LAB BLOOD ORDERAB LES Final Result Performing Organization Address [facility] de Phone Number [facility] [address] [place] [phone] * Ethanol (05/22/2025 2:41 PM EDT) Only the most recent of4 resultswithin the time period is included. ETHANOL (MG/DL) IN SER/PLAS <10 mg/dL [facility] Comment:Serum/plasma ethanol results are to be used formedical/treatment purposes only. 05/22/2025 2:41 PM EDT 05/22/2025 2:45 PM EDT us Generic External Data Provider LAB BLOOD ORDERAB LES Final Result Performing Organization Address City/State/[facility] Co de Phone Number [facility] [address] [place] [phone] * XR Chest 1 View (05/22/2025 2:22 PM EDT) Only the most recent of2 resultswithin the time period is included. Anatomical Region Laterality Modality Chest Radiographic Susy ging 05/22/2025 2:22 PM EDT Narrative 05/22/2025 2:39 PM EDT [address] [address] XRay Report Signed Patient: Adelso Beebe MR#: [id number] : 1960 Acct:[id number] Age/Sex: 64 / M ADM Date: 05/22/25 Loc: HO.ED Attending Dr: Ordering Physician: Jorge Wang MD Date of Service: 05/22/25 Procedure(s): XR chest 1V Accession Number(s): [id number] cc: Jorge Wang MD; Leta Soto MD [...] 05/22/25 1436 DD/ 1422 TD/TT: 05/22/25 1432 Emergency Communications Operator: Procedure Note Donotuseinterpreter, Image - 05/22/[address] [address] XRay Report Signed Patient: Adelso BeebeMR#: [id number] : 1960cct:[id number] Age/Sex: 64 / MADM Date: 05/22/25 Loc: .ED Attending Dr: Ordering Physician: Jorge Wang MD Date of Service: 05/22/25 Procedure(s): XR chest 1V Accession Number(s): [id number] cc: Jorge Wang MD; Leta Soto MD [...] 05/22/25 1436 DD/ 1422 TD/TT: 05/22/25 1432 Emergency Communications Operator: [facility] External Provider IMG XR PROCEDURES Final Result * Hematoxylin and Eosin Stain (05/21/2025 2:15 PM EDT) 05/21/2025 2:15 PM EDT 05/21/2025 2:50 PM EDT [facility] - 05/25/2025 5:25 PM EDT ----- ------- Name: Adelso Beebe Age/Sex: 64/M : 1960 [id number] [id number] Attend Dr: Yajaira Antonio MD Re05/21/25 Status: [facility] Location: [facility] Disch: ----- ------- SPEC : [id number] RECD: 05/21/25-145 STATUS: OUMOU EMILEE NUM: [id number] CASSI: 05/21/25-[address] [facility] [address]: Yajaira Antonio MD ENTERED: 05/21/25-150 SP [...] microscopic examination, 6 pieces in cassette A. ([facility]) Special studies ordered and performed: Immunostain for H. pylori; AB/PAS stains IHC S/NG Disclaimer NOTE: Unless otherwise stated, all tissue is formalin-fixed and paraffin-embedded. Some or all of the immunohistochemical tests reported herein may have been developed and their performance characteristics determined by [facility]. They have not been cleared or approved by the U.S. Food and Drug Administration (FDA). However, the FDA has determined that such clearance or approval is not necessary. This laboratory is certified under the Clinical Laboratory Improvement Amendments of 1988 (CLIA) as qualified to perform high complexity clinical laboratory testing. Copies To: Leta Soto MD [address] [place] [address] [phone] CONTINUED ON NEXT PAGE ----- ------- Name: Godfrey McmanusAdelso Age/Sex: 64/M : 1960 Unit#: [id number] Attend Dr: Yajaira Antonio MD Re05/21/25 Status: [facility] Location: [facility] Disch: ----- ------- SPEC : [id number] RECD: 05/21/25 STATUS: OUMOU FONSECA NUM: [id number] CASSI: 05/21/[address] [facility] [address]: Yajaira Antonio MD ENTERED: 05/21/256855 SP TYPE: Surgical OTHR DR: Leta Soto MD ORDERED: HE Stain/3, Gross Micro L4, IHC, Special st. 2, H. pylori, AB/PAS Copies To: (Continued) Yajaira Antonio MD [facility] [address] [place] [address] [phone] [email or web address] ----- ------- Signed (signature on file) Raul Blunt MD 05/25/25 1725 ----- ------- END OF REPORT Generic External Data Provider LAB BLOOD ORDERAB LES Final Result Performing Organization Address [facility] Co de Phone Number [facility] [address], [place] [phone] * Pheresis Platelets (05/20/2025 10:46 AM EDT) Pheresis Platelets [id number] AP PHPLT TRANSFUSED 05/21/25 1333 [id number] AP PHPLT TRANSFUSED 05/21/25 1223 [facility] 05/20/2025 10:4 6 AM EDT 05/20/2025 11:19 AM EDT Generic External Data Provider LAB BLOOD BANK TE ST ORDERABLES Final Result Performing Organization Address [facility]/ZIP Co de Phone Number [facility] [address] [place] [phone] * Type and screen (05/20/2025 10:46 AM EDT) Only the most recent of2 resultswithin the time period is included. Blood Type ON [facility] Antibody Screen NEGATIVE [facility] 05/20/2025 10:4 6 AM EDT 05/20/2025 11:19 AM EDT Narrative [facility] - 05/26/2025 11:30 AM EDT WITNESSED BY SARAH.NURSING:Call Blood Bank (ext. [phone]) to band patient on admission.Type and Screen [...] BLOOD BANK TE ST ORDERABLES Final Result [facility] [address] [place] [phone] * Urinalysis, Complete, with Reflex to Culture (05/15/2025 2:19 PM EDT) Only the most recent of2 resultswithin the time period is included. Color Urine Yellow [facility] Appearance Urine Clear [facility] PH 8.0 5.0 - 9.0 [facility] Glucose Urine UA Negative Negative mg/dL [facility] Urine Blood Negative Negative [facility] Specific [place] - Urine 1.010 1.005 - 1.025 [facility] Urine Protein Negative Neg-Trace mg/dL [facility] Urine Ketones Negative Negative mg/dL [facility] Nitrite Urine Negative Negative [facility] Leukocyte Esterase Urine Negative Negative [facility] RBC Urine 0-2 0 - 2 /HPF [facility] Urine WBC 0-5 0 - 5 /HPF [facility] Urine Squamous Epithelial Cell 0-2 0 - 2 /HPF [facility] Urine Bacteria None Seen None Seen [facility] Hyaline Casts, Urine 0-2 0 - 2 /LPF [facility] 05/15/2025 2:19 PM EDT 05/15/2025 2:33 PM EDT Narrative [facility] - 05/15/2025 2:44 PM EDT Urine, Clean Catch us Generic External Data Provider LAB URINE ORDERAB LES Final Result Performing Organization Address [facility]/ZIP Co de Phone Number [facility] [address] [place] [phone] * (ABNORMAL) B Type Natriuretic Peptide (BNP) (05/15/2025 2:19 PM EDT) B Type Natriuretic Peptide 178(H) <100 pg/mL [facility] 05/15/2025 2:19 PM EDT 05/15/2025 2:33 PM EDT us Generic External Data Provider LAB BLOOD ORDERAB LES Final Result Performing Organization Address City/[facility]/ZIP Co de Phone Number [facility] [address] [place] [phone] * (ABNORMAL) Prothrombin Time-INR (05/15/2025 11:23 AM EDT) Only the most recent of2 resultswithin the time period is included. [facility] Prothrombin Time 16.1(H) 10.9 - 12.4 SEC [facility] INTERNATIONAL NORM RATIO 1.4(H) 0.9 - 1.1 [facility] Comment:INTERNATIONAL NORMAL IZED RATIO (INR) [...] Performing Organization Address [facility] Co de Phone Number [facility] [address] [place] [phone] * Syphilis Screen (04/21/2025 10:43 AM EDT) [facility] Syphilis Screen Nonreactive Nonreactive [facility] 04/21/2025 10:4 3 AM EDT 04/21/2025 1:18 PM EDT us Leta Dick MD LAB BLOOD ORDERAB LES Final Result Performing Organization Address [facility] Co de Phone Number [facility] [address] [place] [address] [phone] * Hepatitis C Viral RNA, Quantitative, Real-Time PCR (04/21/2025 10:43 AM EDT) [facility] Hepatitis C Viral Load <15 NOT DETECTED NOT DETECTED IU/mL [facility] HCV Log PCR <1.18 NOT DETECTED NOT DETECTED Log IU/mL [facility] Comment:For additional infor tash, please refer tohttp://education.[employer]/faq/GBF86e2(This link is being provided for informational/educational purposes only.)THIS TEST WAS PERFORMED AT:[facility] [place] [id number] STRICKLAND MD 04/21/2025 10:4 3 AM EDT 04/22/2025 8:54 AM EDT Leta Dick MD LAB BLOOD ORDERAB LES Final Result Performing Organization Address [facility]/ZIP Co de Phone Number [facility] [address] [place] [address] [phone] * (ABNORMAL) Hepatitis C Antibody with Reflex to HCV, RNA, Quantitative, Real- Time PCR (04/21/2025 10:43 AM EDT) [facility] Hepatitis C Antibody Reactive( A) Nonreactive [facility] Comment:Presumptive evidence of antibodies to HCV. 04/21/2025 10:4 3 AM EDT 04/21/2025 1:18 PM EDT Leta Dick MD LAB BLOOD ORDERAB LES Final Result Performing Organization Address [facility]/ZIP Co de Phone Number [facility] [address] [place] [phone] * HIV-1 RNA, Quantitative, Real-Time PCR (04/21/2025 10:43 AM EDT) [facility] HIV RNA PCR Qn Copies NOT DETECTED NOT DETECTED copies/mL [facility] HIV RNA PCR Qn Log Copies NOT DETECTED NOT DETECTED [facility] Comment:Result Units: Log co pies/mLThis test was performed using Real-Time Polymerase ChainReaction.Reportable Range: 20 copies/mL to 10,000,000 copies/mL(1.30 log copies/mL to 7.00 log copies/mL).THIS TEST WAS PERFORMED AT:[facility] [place] [phone] STRICKLAND MD 04/21/2025 10:4 3 AM EDT 04/21/2025 1:18 PM EDT Leta Dick MD LAB BLOOD ORDERAB LES Final Result Performing Organization Address [facility] Co de Phone Number [facility] [address] [place] [phone] * RPR (Monitor) with Reflex to??Titer (04/21/2025 10:43 AM EDT) RPR (Monitor) w/Refl Titer NON-REACTI VE NON-REACT [place] [facility] Comment:THIS TEST WAS PERFOR MED AT:[facility] [place] [phone] STRICKLAND MD Rapid Plasma Reagin Ab Titer TNP [facility] 04/21/2025 10:4 3 AM EDT 04/21/2025 1:18 PM EDT Leta Dick MD LAB BLOOD ORDERAB LES Final Result Performing Organization Address [facility]/ZIP Co de Phone Number [facility] [address] [place] [address] [phone] * Chlamydia/Gonorrhea Throat Swab ([place] [facility]) (04/21/2025) Chlamydia Throat Swab Negative Gonorrhea Throat Swab Negative Swab 04/21/2025 us Historical Provider LAB MICROBIOLOGY - GENERA L ORDERABLES Final Result * Chlamydia/Gonorrhea, Urine ([place] [facility]) (04/21/2025) Chlamydia, Urine Negative Negative, Indeterminate, None Detected, Invalid, Specimen unsatisfactory for evaluation, Weakly Positive, 2+ Gonorrhea, Urine Negative Negative, Indeterminate, None Detected, Invalid, Specimen unsatisfactory for evaluation, Weakly Positive, 2+ Urine 04/21/2025 us Historical Provider LAB URINE ORDERABLES Robyn l Result * CT Cervical Spine w/o Contrast (04/12/2025 12:26 AM EDT) Anatomical Region Laterality Modality Spine, C-spine Computed Tomogra phy 04/12/2025 12:2 6 AM EDT Narrative 04/12/2025 12:28 AM EDT [place] [address] [address] Scan Report Signed Patient: Adelso Beebe MR#: [id number] : 1960 Acct:[id number] Age/Sex: 64 / M ADM Date: 04/11/25 Loc: HO.ED Attending Dr: Ordering Physician: Cash Reno MD Date of Service: 04/11/25 Procedure(s): CT cervical spine wo IV con Accession Number(s): [id number] cc: Cash Reno MD; [facility] Report Number: [id number]: Total DLP = 462.38 mGy-cm CLINICAL HISTORY: [...] MD in OV> 04/12/2526 DD/ TD/TT: 04/12/2525 Emergency Communications Operator: Procedure Note Leelater, Image - 04/12/[address] [place] [address] [address] Scan Report Signed Patient: Adelso BeebeMR#: [id number] : 1960cct:[id number] Age/Sex: 64 / MADM Date: 04/11/25 Loc: HO.ED Attending Dr: Ordering Physician: Cash Reno MD Date of Service: 04/11/25 Procedure(s): CT cervical spine wo IV con Accession Number(s): [id number] cc: Cash Reno MD; [facility] Report Number: [id number]: Total DLP = 462.38 mGy-cm CLINICAL HISTORY: [...] MD in OV> 04/12/2526 DD/ TD/TT: 04/12/2525 Emergency Communications Operator: [facility] External Provider IMG CT PROCEDURES Final Result * Magnesium (04/11/2025 11:22 PM EDT) Only the most recent of3 resultswithin the time period is included. Magnesium 2.0 1.6 - 2.6 mg/dL [facility] 04/11/2025 11:2 2 PM EDT 04/11/2025 11:26 PM EDT us Generic External Data Provider LAB BLOOD ORDERAB LES Final Result [facility] [address] [place] [phone] * XR Knee 1-2 Views Right (03/30/2025 3:18 PM EDT) Anatomical Region Laterality Modality Lower Extremities, Knee Right Radiogra phic Imaging 03/30/2025 3:18 PM EDT Narrative 03/30/2025 4:30 PM EDT [address] [address] XRay Report Signed Patient: Adelso Beebe MR#: [id number] : 1960 Acct:[id number] Age/Sex: 64 / M ADM Date: 03/30/25 Loc: .ED Attending Dr: Ordering Physician: Jorge Wang MD Date of Service: 03/30/25 Procedure(s): XR knee RT 2V Accession Number(s): [id number] cc: Jorge Wang MD; Leta Soto MD [...] Rao Hale MD 03/30/2025 04:26 PM EDT Dictated By: Rao Hale MD Signed By: <Electronically signed by Rao Hale MD in OV> 03/30/25 1626 DD/ 1518 TD/TT: 03/30/25 1618 Emergency Communications Operator: Procedure Note Donotuseinterpreter, Image - 03/30/[address] [address] XRay Report Signed Patient: Adelso BeebeMR#: [id number] : 1960cct:[id number] Age/Sex: 64 / MADM Date: 03/30/25 Loc: HO.ED Attending Dr: Ordering Physician: Jorge Wang MD Date of Service: 03/30/25 Procedure(s): XR knee RT 2V Accession Number(s): [id number] cc: Jorge Wang MD; Leta Soto MD [...] Rao Hale MD 03/30/2025 04:26 PM EDT Dictated By: Rao Hale MD Signed By: <Electronically signed by Rao Hale MD in OV> 03/30/25 1626 DD/ 1518 TD/TT: 03/30/25 1618 Emergency Communications Operator: us [facility] External Provider IMG XR PROCEDURES Final Result * XR Hip right with Pelvis 1 view (03/30/2025 3:17 PM EDT) Anatomical Region Laterality Modality Lower Extremities, Hip Bilateral Radiograp hic Imaging 03/30/2025 3:17 PM EDT Narrative 03/30/2025 4:30 PM EDT [address] [address] XRay Report Signed Patient: Adelso Beebe MR#: [id number] : 1960 Acct:[id number] Age/Sex: 64 / M ADM Date: 03/30/25 Loc: HO.ED Attending Dr: Ordering Physician: Jorge Wang MD Date of Service: 03/30/25 Procedure(s): XR hip RT w PEL1V Accession Number(s): [id number] cc: Jorge Wang MD; Leta Soto MD [...] Rao Hale MD 03/30/2025 04:28 PM EDT RP Dictated By: Rao Hale MD Signed By: <Electronically signed by Rao Hale MD in OV> 03/30/25 1628 DD/ 1517 TD/TT: 03/30/25 1618 Emergency Communications Operator: Procedure Note Donotuseinterpreter, Image - 03/30/2025 [place] [address] XRay Report Signed Patient: Adelso BeebeMR#: [id number] : 1960cct:[id number] Age/Sex: 64 / MADM Date: 03/30/25 Loc: HO.ED Attending Dr: Ordering Physician: Jorge Wang MD Date of Service: 03/30/25 Procedure(s): XR hip RT w PEL1V Accession Number(s): [id number] cc: Jorge Wang MD; Leta Soto MD [...] Rao Hale MD 03/30/2025 04:28 PM EDT RP Dictated By: Rao Hale MD Signed By: <Electronically signed by Rao Hale MD in OV> 03/30/25 1628 DD/ 1517 TD/TT: 03/30/25 1618 Emergency Communications Operator: us [facility] External Provider IMG XR PROCEDURES Final Result * US Abdomen Limited (03/26/2025 10:11 AM EDT) Anatomical Region Laterality Modality Abdomen Ultrasound 03/26/2025 10:1 1 AM EDT Narrative 03/26/2025 11:08 AM EDT [place] [address] Ultrasound Report Signed Patient: Adelso Beebe MR#: [id number] : 1960 Acct:[id number] Age/Sex: 64 / M ADM Date: 03/24/25 Loc: [facility] 450-[address]: Getachew Vega MD Ordering Physician: Getachew Vega MD Date of Service: 03/26/25 Procedure(s): US abdomen limited Accession Number(s): [id number] cc: Getachew Vega MD; Leta Soto MD [...] 03/26/25 1105 DD/ 1011 TD/TT: 03/26/25 1028 Emergency Communications Operator: Procedure Note Donotuseinterpreter, Image - 03/26/2025 [place] [address] Ultrasound Report Signed Patient: Adelso BeebeMR#: [id number] : 2Acct:[id number] Age/Sex: 64 / MADM Date: 03/24/25 Loc: [facility] 450-[address]: Getachew Vega MD Ordering Physician: Getachew Vega MD Date of Service: 03/26/25 Procedure(s): US abdomen limited Accession Number(s): [id number] cc: Getachew Vega MD; Leta Soto MD [...] 03/26/25 1105 DD/ 1011 TD/TT: 03/26/25 1028 Emergency Communications Operator: us [facility] External Provider IMG US PROCEDURES Edited Result - Final * MR Brain w/o Contrast (03/24/2025 6:18 PM EDT) Anatomical Region Laterality Modality Brain Magnetic Resonan ce 03/24/2025 6:18 PM EDT Narrative 03/24/2025 6:19 PM EDT [address] [address] Magnetic Resonance Report Signed Patient: Adelso Beebe MR#: [id number] : 1960 Acct:[id number] Age/Sex: 64 / M ADM Date: 03/24/25 Loc: HO.ED Attending Dr: Ordering Physician: Edwin Davis MD Date of Service: 03/24/25 Procedure(s): MR head/brain wo con Accession Number(s): [id number] cc: Leta Soto MD; Edwin Davis MD [...] in OV> 03/24/251818 DD/ 17 TD/TT: 03/24/251817 Emergency Communications Operator: Procedure Note Donotuseinterpreter, Image - 03/24/[address] [address] Magnetic Resonance Report Signed Patient: Yolanda Beebe#: [id number] : 1960cct:[id number] Age/Sex: 64 / MADM Date: 03/24/25 Loc: HO.ED Attending Dr: Ordering Physician: Edwin Davis MD Date of Service: 03/24/25 Procedure(s): MR head/brain wo con Accession Number(s): [id number] cc: Leta Soto MD; Edwin Davis MD [...] in OV> 03/24/251818 DD/ 17 TD/TT: 03/24/251817 Emergency Communications Operator: us [facility] External Provider IMG MRI PROCEDURES Final Result * (ABNORMAL) VENOUS BLOOD GAS (03/24/2025 2:32 PM EDT) VBG pH 7.54(H) 7.32 - 7.43 [facility] Comment:METER #: [id number] additional_comment: Cb rogalt VBG PCO2 25 mmHg [facility] Comment:METER #: [id number] additional_comment: Cb rogalt VBG PO2 99 mmHg [facility] Comment:METER #: [id number] additional_comment: Cb rogalgabriela VBG Base Excess 0.3 mmol/L [facility] Comment:METER #: [id number] additional_comment: Cb felicityalgabriela VBG HCO3 21(L) 22 - 26 mmol/L [facility] Comment:METER #: [id number] additional_comment: Cb alok O2 Sat, [place] 100.0 % [facility] Comment:METER #: [id number] additional_comment: Cb felicityalgabriela 03/24/2025 2:32 PM EDT 03/24/2025 2:37 PM EDT us Generic External Data Provider LAB BLOOD ORDERAB LES Final Result Performing Organization Address [facility] de Phone Number [facility] [address] [place] [phone] * Lactic Acid (03/21/2025 12:11 PM EDT) Lactic Acid 1.6 0.5 - 2.0 mmol/L [facility] 03/21/2025 12:1 1 PM EDT 03/21/2025 12:14 PM EDT Generic External Data Provider LAB BLOOD ORDERAB LES Final Result Performing Organization Address [facility] de Phone Number [facility] [address] [place] [phone] * Glucose, Whole Blood (03/21/2025 10:55 AM EDT) Glucose, Whole Blood 83 60 - 115 mg/dL [facility] Comment:METER #: [id number] 03/21/2025 10:5 5 AM EDT 03/23/2025 8:12 AM EDT Generic External Data Provider LAB BLOOD ORDERAB LES Final Result Performing Organization Address City/[facility] Co de Phone Number [facility] [address] [place] [phone] * XR Chest 2 Views (03/17/2025 8:06 AM EDT) Anatomical Region Laterality Modality Chest Radiographic Susy ging 03/17/2025 8:06 AM EDT Narrative 03/17/2025 9:11 AM EDT [address] [address] XRay Report Signed Patient: Adelso Beebe MR#: [id number] : 1960 Acct:[id number] Age/Sex: 64 / M ADM Date: 03/17/25 Loc: HO.HHCX Attending Dr: Leta Dick MD Ordering Physician: Leta Soto MD Date of Service: 03/17/25 Procedure(s): XR chest 2V Accession Number(s): [id number] cc: Leta Soto MD EXAMINATION: XR CHEST [...] Rao Hale MD 03/17/2025 09:09 AM EDT Dictated By: Rao Hale MD Signed By: <Electronically signed by Rao Hale MD in OV> 03/17/25908 DD/ 0806 TD/TT: 03/17/25 0858 Emergency Communications Operator: Procedure Note Donotuseinterpreter, Image - 03/17/[address] [place] [address] XRay Report Signed Patient: Adelso BeebeMR#: [id number] : 2Acct:[id number] Age/Sex: 64 / MADM Date: 03/17/25 Loc: HO.HHCX Attending Dr: Leta Dick MD Ordering Physician: Leta Soto MD Date of Service: 03/17/25 Procedure(s): XR chest 2V Accession Number(s): [id number] cc: Leta Soto MD EXAMINATION: XR CHEST [...] Rao Hale MD 03/17/2025 09:09 AM EDT Dictated By: Rao Hale MD Signed By: <Electronically signed by Rao Hale MD in OV> 03/17/25 0909 DD/ 0806 TD/TT: 03/17/25 0858 Emergency Communications Operator: Leta Dick MD IMG XR PROCEDURES Edited Result - Final * Lipid Panel, Standard (04/06/2023 10:00 AM EDT) Triglycerides 94 mg/dL [facility] Comment:Desirable Triglyceri de: less than 150 mg/dLBorderline High Triglyceride 150-199 mg/dLHigh Triglyceride: 200-499 mg/dLVery High Triglyceride: greater than or equal to 5OO mg/dL Cholesterol 79 mg/dL [facility] Comment:Desirable Cholestero l: less than 200 mg/dLBorderline High Cholesterol: 200-239 mg/dLHigh Cholesterol: greater than 239 mg/dL LDL Cholesterol Calculated 36 mg/dl [facility] Comment:Desirable LDL: less than 100 mg/dLNear Optimal/Above Optimal LDL: 110- 129 mg/dLBorderline High LDL: 130-159 mg/dLHigh LDL: 160-189 mg/dLVery High LDL: greater than or equal to 190 mg/dL HDL Cholesterol 25 mg/dL [facility] Comment:Desirable HDL: great er than 40 mg/dL Note: This HDL assay may give artificially low results in patients with liver disease. Blood Venous blood specimen / Unknown 04/06/2023 10:00 AM EDT 04/06/2023 11:20 AM EDT Ann Piña [facility] LAB BLOOD ORDERABLES Final Resul t [facility] [address] [place] [phone] from Last 3 Months or Most Recently Relevant to Health Maintenance Insurance [address] [address] C3 Care Teams Fried Cake Maker Relationship Specialty Start Date End Date Leta Soto MD [address] [place] [address] PCP - General Internal Medicine 04/11/23 Yajaira Antonio [address] [place] [address] Gastroenterology 09/04/24 [facility] 01/28/25
--- OUTSIDE RECORDS SUMMARY | 2025-06-04 17:52 | XMS_ITS | Encounter Summary ---
Author Organization [employer] Address [address] [facility] [address]t [place] [address] Care Team Providers Care Gum Cook Name Role Phone Leta Soto MD Primary Care Pro vider Yajaira Antonio Unavailable Encounter Details Date Type Department Care Team (Late st Contact Info) Description 12/17/2023 Orders Only [facility] MED & PEDS [address] [place] [address] Tatyana Mosquera FNP [address] [place] [address] Social History Tobacco Use Types Packs/Day Years [...] Description 06/09/2025 9:45 AM EDT Office Visit [facility] MEDICINE [address] [place] [phone] Leta Soto MD [address] [place] [phone] documented as of this encounter Goals Goal [...] documented as of this encounter Care Teams Gum Cook Relationship Specialty Start Date End Date Leta Soto MD [address] [place] [phone] PCP - General Internal Medicine 04/11/23 Yajaira Antonio [address] [place] [address] Gastroenterology 09/04/24 [facility] 01/28/25 documented as of this encounter
--- OUTSIDE RECORDS SUMMARY | 2025-06-04 17:52 | XMS_ITS | Encounter Summary ---
Author Organization [employer] Address [address] [facility] 7t [place] [address] Care Team Providers Care Golf Stud Riveter Name Role Phone Leta Soto MD Primary Care Pro vider Yajaira Antonio Unavailable Encounter Details Date Type Department Care Team (Late st Contact Info) Description 04/13/2025 Results Follow-Up [facility] MEDICINE [address] [place] [address] Leta Soto MD [address] [place] [address] CT Cervical Spine w/o Contrast Social History [...] Description 06/09/2025 9:45 AM EDT Office Visit [facility] MEDICINE [address] [place] [phone] Leta Soto MD [address] [place] [address] documented as of this encounter Goals Goal [...] documented as of this encounter Care Teams Golf Stud Riveter Relationship Specialty Start Date End Date Leta Soto MD [address] [place] [phone] PCP - General Internal Medicine 04/11/23 Yajaira Antonio [address] [place] [address] 3rd [place] [address] Gastroenterology 09/04/24 [facility] 01/28/25 documented as of this encounter
--- OUTSIDE RECORDS SUMMARY | 2025-06-04 17:52 | XMS_ITS | Encounter Summary ---
Author Organization [employer] Address [address] [facility] 7t [place] [address] Care Team Providers Care Pharmaceutical Operator Name Role Phone Leta Soto MD Primary Care Pro vider Yajaira Antonio Unavailable Encounter Details Date Type Department Care Team (Late st Contact Info) Description 06/04/2025 Orders Only GENERIC EXTERNAL DATA [...] Description 06/09/2025 9:45 AM EDT Office Visit [facility] [address] [place] [phone] Leta Soto MD [address], [place] [phone] documented as of this encounter Goals Goal [...] SCREEN, URINE Routine 06/04/2025 3:34 PM EDT CBC WITH AUTO DIFFERENTIAL Routine 06/04/2025 2:25 PM EDT LIPASE Routine 06/04/2025 2:25 PM EDT HEPATIC FUNCTION PANEL Routine 2:25 PM EDT COMPREHENSIVE METABOLIC PANEL Routine 06/04/2025 2:25 PM EDT documented in this encounter Results * (ABNORMAL) Ammonia, Plasma (06/04/2025 4:07 PM EDT) Ammonia (P) 64(H) 13 - 55 umol/L [facility] 06/04/2025 4:07 PM EDT 06/04/2025 4:10 PM EDT us Generic External Data Provider LAB BLOOD ORDERAB LES Final Result Performing Organization Address [facility] Co de Phone Number [facility] [address] [place] [address] [phone] Urinalysis w/reflex microscopic (06/04/2025 3:54 PM EDT) Color Urine Yellow [facility] Appearance Urine Clear [facility] PH 7.0 5.0 - 9.0 [facility] Glucose Urine UA Negative Negative mg/dL [facility] Urine Blood Negative Negative [facility] Specific [place] - Urine 1.015 1.005 - 1.025 [facility] Urine Protein Negative Neg-Trace mg/dL [facility] Urine Ketones Negative Negative mg/dL [facility] Nitrite Urine Negative Negative [facility] Leukocyte Esterase Urine Negative Negative [facility] 06/04/2025 3:54 PM EDT 06/04/2025 4:10 PM EDT Narrative [facility] - 06/04/2025 4:30 PM EDT [id number], Clean Catch us Generic External Data Provider LAB URINE ORDERAB LES Final Result Performing Organization Address City/[facility]/ZIP Co de Phone Number [facility] [address] [place] [phone] [phone] * Drug Monitoring, Panel 1, Screen, Urine (06/04/2025 3:34 PM EDT) Opiate Screen Urine Not Detected Not Detect [facility] Comment:Opiate cut-off is 30 0 ng/mL.Positive results are unconfirmed and should not be used fornon-medical purposes. Barbiturates, Urine Not Detected Not Detect [facility] Comment:Barbiturate cut-off is 200 ng/mL.Positive results are unconfirmed and should not be used fornon-medical purposes. Phencyclidine Screen Urine Not Detected Not Detect [facility] Comment:Phencyclidine cut-of f is 25 ng/mL.Positive results are unconfirmed and should not be used fornon-medical purposes. Amphetamine Screen Urine Not Detected Not Detect [facility] Comment:Amphetamine cut-off is 1000 ng/mL.Positive results are unconfirmed and should not be used fornon-medical purposes. Benzodiazepines Screen Urine Not Detected Not Detect [facility] Comment:Benzodiazepine cut-o ff is 200 ng/mL.Positive results are unconfirmed and should not be used fornon-medical purposes. Cocaine Screen Urine Not Detected Not Detect [facility] Comment:Cocaine cut-off is 3 00 ng/mL.Positive results are unconfirmed and should not be used fornon-medical purposes. Cannabinoid Screen Urine Not Detected Not Detect [facility] Comment:Cannabinoid cut-off is 50 ng/mL.Positive results are unconfirmed and should not be used fornon-medical purposes. Methadone Screen, Urine Not Detected Not Detect ng/mL [facility] Comment:Methadone cut-off is 300 ng/mL.Positive results are unconfirmed and should not be used fornon-medical purposes. FENTANYL URINE Not Detected Not Detect [facility] Comment:Fentanyl cut-off is 1 ng/mL.Positive results are unconfirmed and should not be used fornon-medical purposes. Oxycodone Urine Screen Not Detected Not Detect ng/mL [facility] Comment:Oxycodone cut-off is 100 ng/mL.Positive results are unconfirmed and should not be used fornon-medical purposes. Buprenorphine Screen Not Detected Not Detect ng/mL [facility] Comment:Buprenorphine cut-of f is 5 ng/mL.Positive results are unconfirmed and should not be used fornon-medical purposes. 06/04/2025 3:34 PM EDT 06/04/2025 3:36 PM EDT Generic External Data Provider LAB URINE ORDERAB LES Final Result Performing Organization Address [facility] Co de Phone Number [facility] [address] [place] [phone] * Lipase (06/04/2025 2:25 PM EDT) Pathologist [facility] Lipase 20 8 - 78 U/L [facility] 06/04/2025 2:25 PM EDT 06/04/2025 2:29 PM EDT Generic External Data Provider LAB BLOOD ORDERAB LES Final Result Performing Organization Address [facility] Co de Phone Number [facility] [address] [place] [phone] * Hepatic Function Panel (06/04/2025 2:25 PM EDT) Bilirubin, Direct 0.5 0.0 - 0.5 mg/dL [facility] 06/04/2025 2:25 PM EDT 06/04/2025 2:29 PM EDT Generic External Data Provider LAB BLOOD ORDERAB LES Final Result Performing Organization Address [facility] Co de Phone Number [facility] [address] [place] [phone] * (ABNORMAL) Comprehensive Metabolic Panel (06/04/2025 2:25 PM EDT) Sodium 143 135 - 145 mmol/L [facility] Potassium 4.6 3.3 - 5.1 mmol/L [facility] Chloride 115(H) 96 - 108 mmol/L [facility] Carbon Dioxide 26 22 - 29 mmol/L [facility] Anion Gap 7(L) 12 - 20 [facility] Urea Nitrogen (BUN) 11 9 - 16 mg/dL [facility] Creatinine, Serum 0.76 0.5 - 1.4 mg/dL [facility] Creatinine Clr Calc Pharmacy 102.7 [facility] Comment:eGFR (calculated fro m the MDRD study equation) and eCrCl(calculated from the Cockcroft-Gault equation) are based ondifferent parameters and may not yield comparable results.If eCrCl result is absurd, please check patient'sheight/weight. Estimated Glomerular Filt Rate >60 [facility] Comment:Chronic Kidney Disea se: Estimated GFR < 60 mL/min/1.49y0[place] Kidney Disease: Estimated GFR < 15 mL/min/1.73m2 Glucose 66 60 - 115 mg/dL [facility] Calcium 8.4 8.4 - 10.2 mg/dL [facility] Bilirubin, Total 1.3(H) 0.0 - 1.0 mg/dL [facility] Aspartate Amino Transferase 32 5 - 37 U/L [facility] Alanine Aminotransferase 21 0 - 40 U/L [facility] Total Protein 6.1(L) 6.5 - 8.0 g/dL [facility] Albumin Level 2.9(L) 3.5 - 5.0 g/dL [facility] Alkaline Phosphatase 122(H) 39 - 117 U/L [facility] 06/04/2025 2:25 PM EDT 06/04/2025 2:29 PM EDT us Generic External Data Provider LAB BLOOD ORDERAB LES Final Result [facility] [address] [place] [phone] * (ABNORMAL) CBC auto differential (06/04/2025 2:25 PM EDT) White Blood Count 2.3(L) 4.8 - 10.8 X10*3/uL [facility] Red Blood Count 3.34(L) 4.60 - 5.80 X10*6/uL [facility] Hemoglobin 8.4(L) 14.0 - 18.0 g/dl [facility] Hematocrit 26.6(L) 42.0 - 52.0 % [facility] Mean Corpuscular Volume 79.6(L) 80.0 - 98.0 fL [facility] Mean Corpuscular Hemoglobin 25.1(L) 27.0 - 33.0 pg [facility] Mean Corpuscular HGB Conc 31.6 31.0 - 36.0 g/dl [facility] Red Cell Distribution Width 14.4 11.0 - 16.0 % [facility] Platelet Count 32(L) 160 - 400 X10*3/uL [facility] Mean Platelet Volume TNP 9.4 - 12.4 fL [facility] Neutrophils Percent Auto 57.6 45 - 73 % [facility] Imm Gran Pct Auto 0.0 0.0 - 0.4 % [facility] Lymphocytes Percent Auto 29.2 20 - 40 % [facility] Monocytes Percent Auto 11.9(H) 2 - 11 % [facility] Eosinophils Percent Auto 1.3 0 - 4 % [facility] Basophils Percent Auto 0.0 0 - 2 % [facility] NRBC Pct Auto 0.0 0.0 - 0.2 /100WBC [facility] Neutrophils Absolute Auto 1.3(L) 2.0 - 8.3 x10*3/uL [facility] Imm Gran Abs Auto 0.00 0.00 - 0.03 X10*3/uL [facility] Lymphocytes Absolute Auto 0.7(L) 1.2 - 4.9 X10*3/uL [facility] Monocytes Absolute Auto 0.3 0.1 - 1.2 X10*3/uL [facility] Eosinophils Absolute Auto 0.0 0.0 - 0.4 X10*3/uL [facility] Basophils Absolute Auto 0.0 0.0 - 0.2 X10*3/uL [facility] NRBC Abs Auto 0.000 0.0 - 0.012 X10*3/uL [facility] 06/04/2025 2:25 PM EDT 06/04/2025 2:29 PM EDT us Generic External Data Provider LAB BLOOD ORDERAB LES Edited Result - Final [facility] [address] [place] [phone] documented in this encounter Visit Diagnoses Not on filedocumented in this encounter Additional Health Concerns Assessment Noted Time PHQ-9 Depression Total Score: 0 03/12/20 25 10:25 AM EDT documented as of this encounter Care Teams Pharmaceutical Operator Relationship Specialty Start Date End Date Leta Soto MD [address] [place] [address] [phone] PCP - General Internal Medicine 04/11/23 Yajaira Antonio [address] [place] [address] Drive 3rd [place] [address] Gastroenterology 09/04/24 [facility] 01/28/25 documented as of this encounter
--- OUTSIDE RECORDS SUMMARY | 2025-06-04 17:52 | XMS_ITS ---
Author Organization [employer] Address [address] [facility] 7t [place] [address] Care Team Providers Care Solaris Administrator Name Role Phone Leta Soto MD Primary Care Pro vider Yajaira Antonio Unavailable [facility] Complex Status:Outreach In Progress (Enrolling) Start date:11/27/2024 Enrollment reason:Referred by provider Overview PCP Referral- 63-year-old male with HCV cirrhosis and multiple hospitalizations for hepatic encephalopathy with ongoing homelessness, poor health literacy. Needs support managing specialist appointments. Please outreach for enrollment. Case Team Name Relationship Phone Chata Puente(Responsible Staff) [phone] Continued Care and Services Coordination
--- OUTSIDE RECORDS SUMMARY | 2025-06-04 17:52 | XMS_ITS | Encounter Summary ---
Author Organization [employer] Address [address] [facility] 7t [place] [address] Care Team Providers Care Auto Transmission Technician Name Role Phone Leta Soto MD Primary Care Pro vider Yajaira Antonio Unavailable Encounter Details Date Type Department Care Team (Late st Contact Info) Description 04/21/2025 Orders Only [facility] [address] [place] [address] Imelda Pfeiffer, CHANDU [address] [place] [address] Healthcare maintenance Social History Tobacco Use Types [...] Description 06/09/2025 9:45 AM EDT Office Visit [facility] [address] [place] [address] [phone] Leta Soto MD [address] [place], [place] [phone] Scheduled Orders Name Type Priority Associated Diagnoses [...] Load <15 NOT DETECTED NOT DETECTED IU/mL [facility] HCV Log PCR <1.18 NOT DETECTED NOT DETECTED Log IU/mL [facility] Comment:For additional infor tsah, please refer tohttp://education.[employer]/faq/HRZ14z9(This link is being provided for informational/educational purposes only.)THIS TEST WAS PERFORMED AT:[employer] [place] [phone] STRICKLAND MD 04/21/2025 10:4 3 AM EDT 04/22/2025 8:54 AM EDT us Leta Dick MD LAB BLOOD ORDERAB LES Final Result [facility] [address] [place] [phone] * HIV-1 RNA, Quantitative, Real-Time PCR (04/21/2025 10:43 AM EDT) HIV RNA PCR Qn Copies NOT DETECTED NOT DETECTED copies/mL [facility] HIV RNA PCR Qn Log Copies NOT DETECTED NOT DETECTED [facility] Comment:Result Units: Log co pies/mLThis test was performed using Real-Time Polymerase ChainReaction.Reportable Range: 20 copies/mL to 10,000,000 copies/mL(1.30 log copies/mL to 7.00 log copies/mL).THIS TEST WAS PERFORMED AT:[facility] [employer] [place] [phone] STRICKLAND MD 04/21/2025 10:4 3 AM EDT 04/21/2025 1:18 PM EDT us Leta Dick MD LAB BLOOD ORDERAB LES Final Result [facility] [address] [place] [phone] * RPR (Monitor) with Reflex to??Titer (04/21/2025 10:43 AM EDT) RPR (Monitor) w/Refl Titer NON-REACTI VE NON-REACT [place] [facility] Comment:THIS TEST WAS PERFOR MED AT:[facility] [employer] [place] [phone] STRICKLAND MD Rapid Plasma Reagin Ab Titer TNP [facility] 04/21/2025 10:4 3 AM EDT 04/21/2025 1:18 PM EDT us Leta Dick MD LAB BLOOD ORDERAB LES Final Result [facility] [address] [place] [phone] * (ABNORMAL) Hepatitis C Antibody with Reflex to HCV, RNA, Quantitative, Real- Time PCR (04/21/2025 10:43 AM EDT) Hepatitis C Antibody Reactive( A) Nonreactive [facility] Comment:Presumptive evidence of antibodies to HCV. 04/21/2025 10:4 3 AM EDT 04/21/2025 1:18 PM EDT us Leta Dick MD LAB BLOOD ORDERAB LES Final Result Performing Organization Address [facility]/ZIP Co de Phone Number [facility] [address] [place] [phone] * Syphilis Screen (04/21/2025 10:43 AM EDT) Syphilis Screen Nonreactive Nonreactive [facility] 04/21/2025 10:4 3 AM EDT 04/21/2025 1:18 PM EDT us Leta Dick MD LAB BLOOD ORDERAB LES Final Result Performing Organization Address [facility] Co de Phone Number [facility] [address] [place] [phone] documented in this encounter Visit Diagnoses Diagnosis Healthcare maintenance documented in this encounter Additional Health Concerns Assessment Noted Time PHQ-9 Depression Total Score: 0 03/12/20 25 10:25 AM EDT documented as of this encounter Care Teams Auto Transmission Technician Relationship Specialty Start Date End Date Leta Soto MD [address] [place] [phone] PCP - General Internal Medicine 04/11/23 Yajaira Antonio [address] [place] [address] Drive 3rd [place] [address] Gastroenterology 09/04/24 [facility] 01/28/25 documented as of this encounter
--- OUTSIDE RECORDS SUMMARY | 2025-06-04 17:52 | XMS_ITS | Encounter Summary ---
Author Organization [employer] Address [address] [facility] 7t [place] [address] Care Team Providers Care Disability Representative Name Role Phone Leta Soto MD Primary Care Pro vider Yajaira Antonio Unavailable Encounter Details Date Type Department Care Team (Late st Contact Info) Description 11/11/2024 Telephone [facility] [address] [place] [address] Leta Soto MD [address] [place] [address] Social History Tobacco Use Types Packs/Day Years [...] with others, in a hotel, in a fdc, living outside on the street, on a [...] 12:27 PM EST Tc from amrita stiles disease case manager rn requesting the status on pt documented in this encounter Plan of Treatment Upcoming Encounters Date Type Department Care Team (Late st Contact Info) Description 06/09/2025 9:45 AM EDT Office Visit [facility] [address] [place] [phone] Leta Soto MD [address] [place] [address] documented as of this encounter Goals Goal [...] documented as of this encounter Care Teams Disability Representative Relationship Specialty Start Date End Date Leta Soto MD [address] [place] [phone] PCP - General Internal Medicine 04/11/[address] 3rd [place] [address] Gastroenterology 09/04/24 [facility] 01/28/25 documented as of this encounter
--- OUTSIDE RECORDS SUMMARY | 2025-06-04 17:52 | XMS_ITS ---
Author Organization [employer] Address [address] [facility] 7t [place] [address] Care Team Providers Care Security Guard Name Role Phone Leta Soto MD Primary [...] Phone Stanley Mckeon RN(Responsible Staff) Registered Nurse [phone] Continued Care and Services Coordination
--- OUTSIDE RECORDS SUMMARY | 2025-06-04 17:52 | XMS_ITS | Encounter Summary ---
Author Organization [employer] Address [address] [facility] 7t [place] [address] Care Team Providers Care Materials Mgmt Tech Name Role Phone Leta Soto MD Primary Care Pro vider Yajaira Antonio Unavailable Encounter Details Date Type Department Care Team (Latest Contact Info) Description 05/30/2025 Travel Social History Tobacco Use Types Packs/Day Years [...] Office Visit [facility] [address] [place] [phone] Leta Soto MD [address] [place] [address] documented as of this encounter Goals Goal [...] documented as of this encounter Care Teams Materials Mgmt Tech Relationship Specialty Start Date End Date Leta Soto MD [address] [place] [phone] PCP - General Internal Medicine 04/11/23 Yajaira Antonio [address]rd [place] [address] Gastroenterology 12/26/24 [facility] 01/28/25 documented as of this encounter
--- OUTSIDE RECORDS SUMMARY | 2025-06-04 17:52 | XMS_ITS | Clinical Summary ---
Author Organization [facility] Address [address] [facility] [address] [place] [phone] Phone Care Team Providers Care Vehicle Body Sander Name Role Phone Leta Soto MD Primary Care Pro vider Allergies Active Allergy Reactions Criticality Noted Date Comments Aspirin 04/20/2025 GI upset and bleeding Dicyclomine 05/26/2023 Ibuprofen 04/20/2025 GI upset Medications amLODIPine (NORVASC) 5 MG tablet Take 5 mg by mouth. 11/24/2024 11/25/19 26 Active carvedilol (COREG) 6.25 MG tablet TAKE 1 TABLET BY MOUTH TWICE DAILY IN THE MORNING AND IN THE EVENING WITH FOOD 05/18/2025 Active ferrous gluconate 324 mg (38 mg elemental) tablet Take 1 tablet by mouth 3 (three) times a week. 03/16/2025 Active furosemide (LASIX) 40 MG tablet Take 40 mg by mouth. 11/27/2024 11/28/19 26 Active lactulose (CONSTULOSE) 10 gram/15 mL solution TAKE 45 ML BY MOUTH THREE TIMES DAILY DIRECTED 04/28/2025 Active losartan (COZAAR) 25 MG tablet Take 25 mg by mouth every morning. 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 Last 3 Months Social History Tobacco Use Types Packs/Day Years Used Date Smoking Tobacco: Never Smokeless Tobacco: Never Tobacco Cessation:Counseling Given: Not Answered Education Answer Date Recorded Are you interested [...] on file Sexual Orientation Not on file Last Filed Vital Signs Vital Sign Reading Time Taken Comments Blood Pressure - - Pulse - - Temperature - - Respiratory Rate - - Oxygen Saturation - - Inhaled Oxygen Concentration - - Weight 93 kg (205 lb) 05/28/2025 4:51 PM EDT Height 172.7 cm (5' 8 ) 05/28/2025 4:51 PM EDT Body Mass Index 31.17 05/28/2025 4:51 PM EDT Plan of Treatment Upcoming Encounters Date Type Department Care Team (Latest Contact Info) Description 06/11/2025 Procedure Pass [facility] [address] [place] [address] 06/11/2025 12:15 PM EDT Hospital Encounter [facility] [address] [place] [address] Michela Matt MD [address] [place] [phone] [email or web address] 06/11/2025 12:15 PM EDT - 06/11/2025 1:15 PM EDT Surgery [facility] [address] [place] [address] Michela Matt MD [address] [place] [address] [email or web address] 06/29/2025 2:30 PM EDT Office Visit [facility] [address] [place] [address] Michela Matt MD [address] [place] [address] [email or web address] Scheduled Procedures Name Priority Associated Diagnoses Date/Ti nj LATERAL TARSAL STRIP Ectropion of right upper eyelid, unspecified ectropion type 06/11/2025 12:15 PM EDT Health Maintenance Due Date Last Done Comments CREATININE LEVEL 1961 POTASSIUM LEVEL 1961 DEPRESSION SCREENING 1973 HEPATITIS C SCREENING 12/03/1979 HIV ONE-TIME SCREENING (18-6 5 YEARS) 12/03/1979 SMOKING STATUS SCREENING (On ce After 26 Yrs) 12/03/1987 SCREENING FOR DIABETES 1996 COLOGUARD 2006 COLONOSCOPY 2006 COLORECTAL CANCER SCREENING [...] ACO C3 ACO C3 ACO C3 ACO Care Teams Vehicle Body Sander Relationship Specialty Start Date End Date Leta Soto MD [address] [place] [phone] PCP - General Internal Medicine 01/05/25 Additional Source Comments The information contained in this document represents components of the legal health record. It is not the complete legal health record.[facility]
--- NOTE | 2025-06-04 18:17 | PHA.MEDREC ---
Addendum entered by Marilynn Gifford RPh 06/04/25 18:21: REVIEWED BY [facility] Original Note: Pharmacy Consult ? Medication Reconciliation Pharmacy has completed the medication reconciliation. Pt nancy historian with his medications but was just discharged with us 05/24; utilized dc packet from 05/24 to confirm med rec.
--- NOTE | 2025-06-04 19:33 | PC.NURSE ---
Assumed care of pt at 1933, report received from CHANDU Santoyo.
--- NOTE | 2025-06-04 20:55 | PC.NURSE ---
20g IV line placed in right wrist. PT tolerated well.
[2025-06-04 21:20] VITALS: BP 125/49; PULSE 60; RESP 20; TEMP 36.6; O2SAT 99
[2025-06-04 23:58] VITALS: BMI 29.9
[2025-06-05] VITALS: BP 130/60; PULSE 57; RESP 20; TEMP 36.3; O2SAT 100
[2025-06-05 03:35] VITALS: BP 120/59; PULSE 59; RESP 18; TEMP 36.9; O2SAT 98
--- NOTE | 2025-06-05 07:29 | P.PNIM_ITS ---
Subjective Subjective Date of Service: 06/05/25 Interval History: f/u on hepatic encephalopathy he is not confused Physical Exam 2 Vital Signs: Vital Signs: Last Vital Signs Temp 98.4 F 06/05/25 03:35 Pulse 59 06/05/25 03:35 Resp 18 06/05/25 03:35 BP 120/59 L 06/05/25 03:35 Pulse Ox 98 06/05/25 03:35 O2 Del Method Room Air 06/05/25 03:35 BMI result Body Mass Index 29.9 Const: Other: General: AO X 3, no acute distress Resp: CTA bilateral CVS: S1,S2,RRR GI: +BS, NT, no distention Skin: No rash Neuro: motor grossly intact Psych: appropriate affect Objective Data Active Medications Acetaminophen (Acetaminophen 325 Mg Tablet) 650 mg PO Q6H PRN PRN Reason: Pain, Mild 1-3,fever,headache Calcium Carbonate (Calcium Carbonate 750 Mg Tab.Chew) 750 mg PO Q4H PRN PRN Reason: Heartburn Magnesium Hydroxide (Milk Of Magnesia 30 Ml Oral.Susp) 30 ml PO DAILY PRN PRN Reason: Constipation Melatonin (Melatonin 3 Mg Tablet) 6 mg PO BEDTIME PRN PRN Reason: Insomnia Sodium Chloride (0.9 % Sodium Chloride Flush 3 Ml Syringe) 3 ml IVFLUSH QSHIFT [facility] Last Admin: 06/05/25 00:31 Dose: Not Given Documented By: SILVIA Non-Admin Reason: Previously Administered Labs 06/04/25 14:25 06/04/25 14:25 Labs: Laboratory Results - last 24 hr 06/04/25 06/04/25 06/04/25 14:25 15:34 15:54 MCV 79.6 L MCH 25.1 L MCHC 31.6 RDW 14.4 Plt Count 32 L D MPV TNP Immature Gran % (Auto) 0.0 Neut % (Auto) 57.6 Lymph % (Auto) 29.2 [place] % (Auto) 11.9 H Eos % (Auto) 1.3 Baso % (Auto) 0.0 Lymph # (Auto) 0.7 L [place] # (Auto) 0.3 Eos # (Auto) 0.0 Baso # (Auto) 0.0 Abs Immat Gran (auto) 0.00 Absolute Neuts (auto) 1.3 L Absolute Nucleated RBC 0.000 Nucleated RBC % (auto) 0.0 Anion Gap 7 L Estim Creat Clear Calc 102.7 Estimated GFR > 60 Random Glucose 66 Calcium 8.4 Total Bilirubin 1.3 H Direct Bilirubin 0.5 AST 32 ALT 21 Alkaline Phosphatase 122 H Ammonia Total Protein 6.1 L Albumin 2.9 L Lipase 20 Urine Color Yellow Urine Appearance Clear Urine pH 7.0 Ur Specific [place] 1.015 Urine Protein Negative Urine Glucose (UA) Negative Urine Ketones Negative Urine Blood Negative Urine Nitrite Negative Ur Leukocyte Esterase Negative Urine Opiates Screen Not Detected Ur Buprenorphine Scrn Not Detected Ur Oxycodone Screen Not Detected Urine Methadone Screen Not Detected Urine Fentanyl Screen Not Detected Ur Barbiturates Screen Not Detected Ur Phencyclidine Scrn Not Detected Ur Amphetamines Screen Not Detected U Benzodiazepines Scrn Not Detected Urine Cocaine Screen Not Detected U Marijuana (THC) Screen Not Detected 06/04/25 16:07 MCV MCH MCHC RDW Plt Count MPV Immature Gran % (Auto) Neut % (Auto) Lymph % (Auto) [place] % (Auto) Eos % (Auto) Baso % (Auto) Lymph # (Auto) [place] # (Auto) Eos # (Auto) Baso # (Auto) Abs Immat Gran (auto) Absolute Neuts (auto) Absolute Nucleated RBC Nucleated RBC % (auto) Anion Gap Estim Creat Clear Calc Estimated GFR Random Glucose Calcium Total Bilirubin Direct Bilirubin AST ALT Alkaline Phosphatase Ammonia 64 H Total Protein Albumin Lipase Urine Color Urine Appearance Urine pH Ur Specific [place] Urine Protein Urine Glucose (UA) Urine Ketones Urine Blood Urine Nitrite Ur Leukocyte Esterase Urine Opiates Screen Ur Buprenorphine Scrn Ur Oxycodone Screen Urine Methadone Screen Urine Fentanyl Screen Ur Barbiturates Screen Ur Phencyclidine Scrn Ur Amphetamines Screen U Benzodiazepines Scrn Urine Cocaine Screen U Marijuana (THC) Screen Assessment and Plan (1) Acute metabolic encephalopathy: Status: Acute Plan This is a 64yo M with 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, chronic thrombocytopenia, hepatic encephalopathy, and HTN who was sent in from his alf with confusion Acute metabolic encephalopathy due to hepatic encephalopathy due to decompensated HCV cirrhosis with chronic pancytopenia--not confused Lactulose, rifaximin Goal 2-3 bowel movements per day Dizziness resolved at this time Hypertension Amlodipine, carvedilol History of varices Continue carvedilol pancytopenia, stable DVT prophylaxis-mechanical due to thrombocytopenia Full Code Dispo: will dc today Quality Stroke Does the patient have a stroke diagnosis?: No VTE Prior VTE?: No VTE Risk Level:: Medical - moderate - high VTE Device Contraindication: N/A - Device Ordered VTE Drug Contraindication: Treatment Not Indicated
[2025-06-05 07:30] VITALS: BP 115/58; PULSE 60; RESP 16; TEMP 36.8; O2SAT 98
--- NOTE | 2025-06-05 07:43 | P.DS_ITS ---
DS: Providers Provider Date of admission: 06/04/25 17:05 Primary care physician: [facility] DS: Diagnosis Discharge Diagnosis (1) Acute metabolic encephalopathy: Status: Acute DS: Summary Hospital Course Hospital Course: Chief Complaint: altered mental status This is a 64-year-old male with history of HCV cirrhosis who arrived from [place] with confusion. Patient states his medication makes him dizzy. He does not know which medication. In the emergency department lab work was unremarkable. Ammonia level was 64, there was concern for altered mental status, he received a dose of lactulose and admission was requested for altered mental status due to hepatic encephalopathy. Hospital cours: The patient was admitted and started on lactulose. By the following day, his mental status had improved significantly, with a [id number] recovery. He is now ready for discharge home. The importance of medication adherence, especially with lactulose, has been emphasized. No signs of systemic infection were observed during the admission. Final diagnosis: Metabolic encephalopathy d/t hepatic encephalopathy Time Attestation Discharge Coordination Time (in mins): 35 Quality: Safe Use of Opioids Does Pt have an Active Cancer Diagnosis on the Problem List?: No Quality: Stroke Does the patient have a stroke diagnosis?: No Physical Exam Vital Signs: Vital Signs: Last Vital Signs Temp 98.3 F 06/05/25 07:30 Pulse 60 06/05/25 07:30 Resp 16 06/05/25 07:30 BP 115/58 L 06/05/25 07:30 Pulse Ox 98 06/05/25 07:30 O2 Del Method Room Air 06/05/25 07:30 BMI result Body Mass Index 29.9 Const: Other: General: AO X 3, no acute distress Resp: CTA bilateral CVS: S1,S2,RRR GI: +BS, NT, no distention Skin: No rash Neuro: motor grossly intact Psych: appropriate affect DS: Data Data Completed and Pending Completed studies during hospitalization [Text1]: Procedures Bypass Portal Vein to Hepatic Vein with Synthetic Substitute, Percutaneous Approach (10/08/24) Transfusion of Nonautologous Platelets into Peripheral Vein, Percutaneous Approach (10/08/24) Labs on day of discharge: Laboratory Results - last 24 hr 06/04/25 06/04/25 06/04/25 14:25 15:34 15:54 WBC 2.3 L RBC 3.34 L Hgb 8.4 L Hct 26.6 L MCV 79.6 L MCH 25.1 L MCHC 31.6 RDW 14.4 Plt Count 32 L D MPV TNP Immature Gran % (Auto) 0.0 Neut % (Auto) 57.6 Lymph % (Auto) 29.2 [place] % (Auto) 11.9 H Eos % (Auto) 1.3 Baso % (Auto) 0.0 Lymph # (Auto) 0.7 L [place] # (Auto) 0.3 Eos # (Auto) 0.0 Baso # (Auto) 0.0 Abs Immat Gran (auto) 0.00 Absolute Neuts (auto) 1.3 L Absolute Nucleated RBC 0.000 Nucleated RBC % (auto) 0.0 Sodium 143 Potassium 4.6 Chloride 115 H Carbon Dioxide 26 Anion Gap 7 L BUN 11 Creatinine 0.76 Estim Creat Clear Calc 102.7 Estimated GFR > 60 Random Glucose 66 Calcium 8.4 Total Bilirubin 1.3 H Direct Bilirubin 0.5 AST 32 ALT 21 Alkaline Phosphatase 122 H Ammonia Total Protein 6.1 L Albumin 2.9 L Lipase 20 Urine Color Yellow Urine Appearance Clear Urine pH 7.0 Ur Specific [place] 1.015 Urine Protein Negative Urine Glucose (UA) Negative Urine Ketones Negative Urine Blood Negative Urine Nitrite Negative Ur Leukocyte Esterase Negative Urine Opiates Screen Not Detected Ur Buprenorphine Scrn Not Detected Ur Oxycodone Screen Not Detected Urine Methadone Screen Not Detected Urine Fentanyl Screen Not Detected Ur Barbiturates Screen Not Detected Ur Phencyclidine Scrn Not Detected Ur Amphetamines Screen Not Detected U Benzodiazepines Scrn Not Detected Urine Cocaine Screen Not Detected U Marijuana (THC) Screen Not Detected 06/04/25 16:07 WBC RBC Hgb Hct MCV MCH MCHC RDW Plt Count MPV Immature Gran % (Auto) Neut % (Auto) Lymph % (Auto) [place] % (Auto) Eos % (Auto) Baso % (Auto) Lymph # (Auto) [place] # (Auto) Eos # (Auto) Baso # (Auto) Abs Immat Gran (auto) Absolute Neuts (auto) Absolute Nucleated RBC Nucleated RBC % (auto) Sodium Potassium Chloride Carbon Dioxide Anion Gap BUN Creatinine Estim Creat Clear Calc Estimated GFR Random Glucose Calcium Total Bilirubin Direct Bilirubin AST ALT Alkaline Phosphatase Ammonia 64 H Total Protein Albumin Lipase Urine Color Urine Appearance Urine pH Ur Specific [place] Urine Protein Urine Glucose (UA) Urine Ketones Urine Blood Urine Nitrite Ur Leukocyte Esterase Urine Opiates Screen Ur Buprenorphine Scrn Ur Oxycodone Screen Urine Methadone Screen Urine Fentanyl Screen Ur Barbiturates Screen Ur Phencyclidine Scrn Ur Amphetamines Screen U Benzodiazepines Scrn Urine Cocaine Screen U Marijuana (THC) Screen Discharge Plan Discharge Anticipated Discharge Date/Time: 06/05/25 07:44 Patient Disposition: Home, Self-Care Discharge Diagnosis: hepatic encephalopathy Referrals: Center,[facility] [Primary Care Provider, Medical] - 1 Week Discharge Medications: Continued (DME) walker Misc See Rx Instructions .Route Qty: 1 0RF Rx Instructions: As directed lactulose 10 gram/15 mL solution 40 g PO BID (DME) blood pressure test kit-large [Omron BP Monitor-3 Series] Kit See Rx Instructions .ROUTE DAILY Qty: 1 Rx Instructions: As directed Xifaxan 550 mg tablet 550 mg PO BID 90 Days Qty: 180 0RF amlodipine 5 mg tablet 5 mg PO DAILY Qty: 90 0RF Discharge Orders: Discharge Order (Routine); Ordered 06/05/25 Ordered By: Gabino Cuellar Diet: Advance to usual diet Activity on Discharge: As tolerated Stand Alone Forms: Patient Portal Discharge page Print Language: Moroccan Care Plan Goals: recovery from hepatic encephalopathy, prevent hospitalizartion Health Concerns: cirrhosis of liver pancytopenia hepatic encephalopathy Plan of Treatment: take all medication as prescribed and follow up with your Doctor in a week,
[2025-06-05] MEDS: 0.9 % Sodium Chloride Flush 3 ML SYRINGE IVFLUSH (08:46)
--- NOTE | 2025-06-05 10:31 | MHC.CM.PN ---
Addendum entered by Haley Ramos 06/05/25 15:31: DP: PT HAS BEEN MEDICALLY CLEARED AFTER REPEAT AMMONIA, FAMILY WILL BRING HOME. Original Note: CM MET WITH PT AT BEDSIDE WITH WIRE COMMUNICATIONS ENGINEER. PT LIVES AT [address] AND IS FUNCTIONALLY INDEP. PT HAS DAILY PALEONTOLOGY TEACHER SERVICES BUT UNSURE OF EXACT HRS. + HCP ON FILWE AND VERIFIED. PCP AT [facility]. DP: PT HAS BEEN MEDICALLY CLEARED FOR DC, HOME, NO SERVICES. PT WILL TAKE [facility] AT 11:30 AM.
[2025-06-05 10:49] LABS: Ammonia 96 umol/L (13-55)
[2025-06-05 14:03] LABS: Ammonia 72 umol/L (13-55)
[2025-06-05 15:28] VITALS: BP 138/63; PULSE 64; RESP 18; TEMP 37.1; O2SAT 100
== END 2025-06-05 16:52 | disposition home or self-care (01) ==
LOC: HO.ED 14:20 → HO.EDOVER 17:13 → HO.S3 23:31
PROVIDERS: Admitting Provider Hospitalist; Emergency Provider Emergency Medicine; PCP Student in an Organized Health Care Education/Training Program; Visit Provider Internal Medicine
DX: K76.82 Hepatic encephalopathy (principal); G93.41 Metabolic encephalopathy; D61.818 Other pancytopenia; F17.210 Nicotine dependence, cigarettes, uncomplicated; K74.69 Other cirrhosis of liver; B19.20 Unspecified viral hepatitis C without hepatic coma; Z59.01 Sheltered homelessness; Z71.6 Tobacco abuse counseling; Z79.899 Other long term (current) drug therapy
CPT/HCPCS: 36415; 80053; 80307; 81003; 82140; 82248; 83690; 85025; 93005; 99285

== ENCOUNTER → 2025-06-04 14:44 | Outpatient (BNV) | payer MEDICAID, SELFPAY | PROVIDERS: Admitting Provider Hospitalist; Emergency Provider Emergency Medicine; Visit Provider Internal Medicine Cardiovascular Disease | DX: R00.1 Bradycardia, unspecified (principal); I49.9 Cardiac arrhythmia, unspecified | CPT/HCPCS: 93010 ==

== ENCOUNTER → 2025-06-04 17:05 | Outpatient (BNV) | payer MEDICAID, SELFPAY | PROVIDERS: Admitting Provider Hospitalist; Emergency Provider Emergency Medicine; Visit Provider Physician Assistant Medical | DX: K76.82 Hepatic encephalopathy (principal) | CPT/HCPCS: 99223; 99232 ==

== ENCOUNTER 2025-06-09 11:30 | Observation (INO) | payer MEDICAID, SELFPAY ==
--- NOTE | ~2025-06-09 | XR_ITS ---
EXAMINATION: XR CHEST CLINICAL INFORMATION: Mental status change COMPARISON: 05/22/2025. TECHNIQUE: Frontal view of the chest was obtained. FINDINGS: The cardiac, hilar, and mediastinal contours are normal. The lungs are clear bilaterally. No pneumothorax or effusion. No focal osseous or soft tissue abnormality. XR/XR chest 1V IMPRESSION: No active pulmonary disease. Electronically signed by: Rao Hale MD 06/09/2025 12:38 PM EDT
--- OUTSIDE RECORDS SUMMARY | 2025-06-09 09:45 | XMS_ITS | Encounter Summary ---
Author Organization [employer] Address [address] [place] [address] Care Team Providers Care Behavioral Specialist Name Role Phone Leta Soto MD Primary Care Pro vider Yajaira Antonio Unavailable Encounter Details Date Type Department Care Team (Late st Contact Info) Description 06/09/2025 9:45 AM EDT Office Visit [facility] [address] [place] [address] Leta Soto MD [address] [place], [place] [id number] Dizziness (Primary Dx) Social History Tobacco Use Types [...] Sign Reading Time Taken Comments Blood Pressure 150/50 06/09/2025 10:23 AM EDT Pulse 90 06/09/2025 10:23 AM EDT Temperature - - Respiratory Rate - - Oxygen Saturation - - Inhaled Oxygen Concentration - - Weight - - Height - - Body Mass Index - - documented in this encounter Plan of Treatment Not on file documented as of this encounter Goals Goal Patient Goal Type Associated Problems Recent Progress Patient-Stated? Author Blood Pressure < 140/90 Blood Pressure 150/50(2024 10:23 AM EDT) No Loan Talbot Record your blood pressure once per day Blood Pressure No Loan Talbot documented as of this encounter Procedures Procedure Name Priority Date/Time Associated Diagnosis Comments POCT GLUCOSE Routine 06/09/2025 11:04 AM EDT Dizziness documented in this encounter Results * POCT Glucose (06/09/2025 11:04 AM EDT) [facility] Glucose Blood, POC 107 60 - 200 mg/dL QC Media Lot # [id number] Lot# Expiration Date ,062,[id number] Blood Capillary blood specimen / Unknown 06/09/2025 11:04 AM EDT Leta Dick MD POINT OF CARE ANCELMO T ENTER/EDIT ORDERABLES Final Result documented in this encounter Visit Diagnoses Diagnosis Dizziness- Primary Dizziness and giddiness documented in this encounter Additional Health Concerns Assessment Noted Time PHQ-9 Depression Total Score: 0 03/12/20 10:25 AM EDT documented as of this encounter Care Teams Behavioral Specialist Relationship Specialty Start Date End Date Leta Soto MD [address] [place] [id number] PCP - General Internal Medicine 04/11/23 Yajaira Antonio [address] [place] [address] Drive 3rd [place] [address] Gastroenterology 09/04/24 [facility] 01/28/25 documented as of this encounter
[2025-06-09 11:46] VITALS: BP 148/66; BP 152/78; PULSE 61; RESP 18; TEMP 36.8; O2SAT 100; O2SAT 99; BMI 30.2
--- NOTE | 2025-06-09 11:56 | ED.GENADULT ---
HPI - General Adult General Chief complaint: General Medical Stated complaint: altered mental status from clinic Time Seen by Provider: 06/09/25 11:52 Source: EMS, old records reviewed and inspector shells Mode of arrival: EMS History of Present Illness ED Provider: DR. 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 Patient was sent [facility] for evaluation of increased confusion and disorientation. Related Data Home Medications ?Medication ?Instructions ?Recorded ?Confirmed blood pressure test kit-large #1 ea 05/27/25 (Omron Blood Pressure Monitor-3 Series kit) lactulose 10 gram/15 mL oral 40 g PO BID 06/04/25 06/04/25 solution Previous Rx's ?Medication ?Instructions ?Recorded walker #1 ea 02/08/25 amlodipine 5 mg tablet 5 mg PO DAILY #90 tabs 04/21/25 rifaximin 550 mg tablet (Xifaxan) 550 mg PO BID 90 days #180 tabs 05/27/25 Allergies Allergy/AdvReac Type Severity Reaction Status Date / Time dicyclomine (From Bentyl) Allergy Unknown Verified 06/09/25 11:53 aspirin AdvReac Severe stomach Verified 06/09/25 11:53 bleeding NSAIDS (Non-Steroidal AdvReac Severe liver Verified 06/09/25 11:53 Anti-Inflamma concerns Review of Systems Review of Systems: All other systems are reviewed and are negative Constitutional: Reports as per HPI and Reports no additional constitutional complaints Eyes: Reports as per HPI and Reports no additional eye complaints Reports system reviewed and no additional complaints, except as documented Cardiovascular: Reports as per HPI and Reports no additional cardiovascular complaints Respiratory: Reports as per HPI and Reports no additional respiratory complaints Gastrointestinal: Reports as per HPI and Reports no additional gastrointestinal complaints Genitourinary: Reports no additional female genitourinary complaints Musculoskeletal: Reports no additional musculoskeletal complaints Skin/Breast: Reports system reviewed and no additional complaints, except as docu Psychiatric: Reports no additional psychiatric complaints Endocrine: Reports no additional endocrine complaints Hematologic/Lymphatic: Reports no additional hematologic/lymphatic complaints Allergic/Immunologic: Reports no additional allergic/immunologic complaints Reports system reviewed and no additional complaints, except as documented and Reports Abnormal speech present [facility] Past Medical History Medical History Portal vein thrombosis Eye abnormality Cirrhosis of liver Pancytopenia Hyperammonemia Pancytopenia Obesity (BMI 30.0-34.9) Fall Pancytopenia Hepatic encephalopathy Cirrhosis Splenic vein thrombosis Sepsis Cirrhosis of liver with ascites Abdominal pain Thrombocytopenia Pancytopenia Cirrhosis Hepatitis C virus infection Esophageal varices Pancytopenia Iron deficiency anemia Cirrhosis Hepatitis C HBP (high blood pressure) Surgical History S/P TIPS (transjugular intrahepatic portosystemic shunt) H/O left inguinal hernia repair H/O eye surgery History of esophagogastroduodenoscopy (EGD) H/O colonoscopy Family History Family History Maternal Grandmother Breast CA Uterus cancer Mother Primary lung cancer of unknown cell type Social History Social History Household Members: Other Household Members Other:: pt comes from a intermediate Housing: Other Housing Other:: intermediate Are you a primary manager medicare marketing to a significant other at home: No Do you presently have visiting nurse or other home services: No Alcohol intake: former Comment: pt refusing alarm's Patient Tobacco Use Status: Current someday Tobacco user Tobacco use type: Cigarette Cigarette Packs Per Day: 1 Cigarettes Per Day: 0.5 Years Smoked: 45 Smoked in Last 30 Days: Yes e-Cigarette/Vaping Use: Never Used Second Hand Smoke Exposure: No Use of substances other than those prescribed or required for medical reasons: No Substance Use Type: Heroin Advance Directives: Yes Advance Directives on File: Yes Advance Directives Date on File: 04/02/24 Do you have a plan to hurt others: No Plan service: No Current occupational status: retired Physical Exam ED Vital Signs: Vital Signs - 24 hr 06/09/25 11:46 Temperature 98.3 F Pulse Rate 61 Respiratory Rate 18 Blood Pressure 148/66 H Pulse Oximetry 100 Oxygen Delivery Method Room Air BMI result Body Mass Index 30.2 Vital signs have been reviewed and appear to be correct. Blood pressure elevated. Heart rate normal. Respiratory rate normal. Temperature normal. Oxygen saturation normal. Appearance: Alert. Oriented X2 (Place, person). No acute distress. Head: Normal external exam. Normocephalic. Atraumatic. No Lim signs noted. No raccoon eyes noted Eyes: PERRLA. EOMI. Conjunctiva and sclera normal. Eyelids normal. ENT: TM's Normal. Pharynx normal. Uvula midline. Moist mucous membranes. No trismus noted. No drooling noted. No muffled voice noted. Neck: Normal inspection. Neck supple. FROM. No adenopathy. Thyroid Normal. No meningeal signs. No neck mass noted. CVS: Normal heart rate and rhythm. Heart sound normal. No murmurs noted. Pulses normal throughout. Respiratory: No respiratory distress. Painless inspiration. Breath sounds normal. No wheezes/rales/rhonchi noted. Chest nontender. No accessory muscle usage noted or decreased air movement noted. Abdomen: Soft and nontender. Bowel sounds normal in all 4 quadrants. No distention noted. No organomegaly noted. No visible injury noted. Back: No CVA tenderness. Full range of motion noted. Skin: Skin warm and dry. Normal skin color. Normal skin turgor. No rashes/lesions/lacerations noted. Extremities: No lower extremity edema. Extremities exhibit normal range of motion. Extremities nontender. Neuro: Oriented X 2. Cranial nerve exam: II-XII are grossly intact No motor deficit. No sensory deficit. Reflexes normal. Course Reevaluation(s) Reevaluation #1: metabolic hepatic encephalopathy, concern from PCP for increased confusion and disorientation than normal, elevation of ammonia level question of patient compliance with medication, will give the patient extra dose of lactulose. admit for further evaluation. Time: 13:48 Medical Decision Making Differential Diagnosis Differential Diagnoses: The differential diagnosis associated with the presentation includes ( Hepatic encephalopathy, pneumonia, pneumothorax, electrolyte derangement, severe anemia.) Admission/Observation Consideration of admission/observation: Escalation of care including admission/observation considered Consult Healthcare Provider Management of the patient was discussed with: Hospitalist ( Deanna Puente) Lab Data MDM Lab Attestation statement: I reviewed the patient's lab results. 06/09/25 12:43 06/09/25 12:43 Labs: Lab Results 06/09/25 06/09/25 06/09/25 Range/Units 12:42 12:43 13:17 WBC 1.8 L (4.8-10.8) X10*3/uL RBC 3.74 L (4.60-5.80) X10*6/uL Hgb 9.3 L (14.0-18.0) g/dl Hct 29.4 L (42.0-52.0) % MCV 78.6 L (80.0-98.0) fL MCH 24.9 L (27.0-33.0) pg MCHC 31.6 (31.0-36.0) g/dl RDW 14.5 (11.0-16.0) % Plt Count 27 L (160-400) X10*3/uL MPV Not Reportable Immature Gran % (Auto) 0.0 (0.0-0.4) % Neut % (Auto) 50.6 (45-73) % Lymph % (Auto) 37.5 (20-40) % [place] % (Auto) 8.7 (2-11) % Eos % (Auto) 2.7 (0-4) % Baso % (Auto) 0.5 (0-2) % Lymph # (Auto) 0.7 L (1.2-4.9) X10*3/uL [place] # (Auto) 0.2 (0.1-1.2) X10*3/uL Eos # (Auto) 0.1 (0.0-0.4) X10*3/uL Baso # (Auto) 0.0 (0.0-0.2) X10*3/uL Abs Immat Gran (auto) 0.00 (0.00-0.03) X10*3/uL Absolute Neuts (auto) 0.9 L (2.0-8.3) x10*3/uL Absolute Nucleated RBC 0.000 (0.0-0.012) X10*3/uL Nucleated RBC % (auto) 0.0 (0.0-0.2) /100WBC Smear Tech's Comments VERIFIED PT 17.1 H (10.9-12.4) SEC INR 1.5 H (0.9-1.1) Sodium 143 (135-145) mmol/L Potassium 4.4 (3.3-5.1) mmol/L Chloride 115 H (96-108) mmol/L Carbon Dioxide 25 (22-29) mmol/L Anion Gap 7 L (12-20) BUN 12 (9-16) mg/dL Creatinine 0.77 (0.5-1.4) mg/dL Estim Creat Clear Calc 113.8 Estimated GFR > 60 Random Glucose 85 (60-115) mg/dL Lactic Acid 1.5 (0.5-2.0) mmol/L Calcium 8.4 (8.4-10.2) mg/dL Total Bilirubin 1.6 H (0.0-1.0) mg/dL Direct Bilirubin 0.7 H (0.0-0.5) mg/dL AST 42 H (5-37) U/L ALT 27 (0-40) U/L Alkaline Phosphatase 168 H (39-117) U/L Ammonia 86 H (13-55) umol/L Troponin I High Sens 17.0 D (<3.5-35.0) ng/L Total Protein 6.6 (6.5-8.0) g/dL Albumin 3.1 L (3.5-5.0) g/dL Lipase 21 (8-78) U/L Urine Color Yellow Urine Appearance Clear Urine pH 7.5 (5.0-9.0) Ur Specific [place] 1.015 (1.005-1.025) Urine Protein Negative (Neg-Trace) mg/dL Urine Glucose (UA) Negative (Negative) mg/dL Urine Ketones Negative (Negative) mg/dL Urine Blood Negative (Negative) Urine Nitrite Negative (Negative) Ur Leukocyte Esterase Negative (Negative) Influenza Type A (PCR) NEGATIVE (Negative) Influenza Type B (PCR) NEGATIVE (Negative) RSV RNA Qual (PCR) NEGATIVE (Negative) SARS-CoV-2 RNA (RT-PCR) NEGATIVE (Negative) Independent Interpretation I performed an independent interpretation of an: Plain X-Ray ( chest: No acute pulmonary disease) Radiology Impression Discussion of test interpretation with radiology: I have reviewed the radiologist's reading. Discharge Plan Discharge Clinical Impression: Acute hepatic encephalopathy, Hyperammonemia Patient Disposition: Admitted As Inpatient Print Language: Turkish
--- NOTE | 2025-06-09 12:06 | ECG_ITS ---
Test Reason : MENTAL STATUS CHANGE Blood Pressure : */* mmHG Vent. Rate : 61 BPM Atrial Rate : 61 BPM P-R Int : 136 ms QRS Dur : 78 ms QT Int : 448 ms P-R-T Axes : 21 14 66 degrees QTcB Int : 450 ms Normal sinus rhythm Normal ECG When compared with ECG of 04-Jun-2025 15:15, No significant change was found Referred By: Hodan Puente Electronically Signed By: ЕКАТЕРИНА ZARAGOZA
--- NOTE | 2025-06-09 12:50 | PC.NURSE ---
patient alert to person/place, unsure who president or date. pt denies pain/discomfort, rr equal/non labored- lungs diminished/clear. 2+ lower extremity pitting edema, labs drawn by tech, plan of care ongoing.
[2025-06-09 12:51] LABS: Hematocrit 29.4 % (42.0-52.0); Hemoglobin 9.3 g/dl (14.0-18.0); Imm Gran Abs Auto 0.00 X10*3/uL (0.00-0.03); Imm Gran Pct Auto 0.0 % (0.0-0.4); Lymphocytes Absolute Auto 0.7 X10*3/uL (1.2-4.9); MANUAL DIFF FLAG SCAN; Mean Corpuscular HGB Conc 31.6 g/dl (31.0-36.0); Mean Corpuscular Hemoglobin 24.9 pg (27.0-33.0); Mean Corpuscular Volume 78.6 fL (80.0-98.0); NRBC Abs Auto 0.000 X10*3/uL (0.0-0.012); NRBC Pct Auto 0.0 /100WBC (0.0-0.2); Platelet Count 27 X10*3/uL (160-400); Red Blood Count 3.74 X10*6/uL (4.60-5.80); SCAN SMEAR FLAG 1; White Blood Count 1.8 X10*3/uL (4.8-10.8)
[2025-06-09 12:54] LABS: INTERNATIONAL NORM RATIO 1.5 (0.9-1.1); Prothrombin Time 17.1 SEC (10.9-12.4)
[2025-06-09 12:57] LABS: Ammonia 86 umol/L (13-55)
[2025-06-09 13:07] LABS: Alanine Aminotransferase 27 U/L (0-40); Albumin Level 3.1 g/dL (3.5-5.0); Alkaline Phosphatase 168 U/L (39-117); Anion Gap 7 (12-20); Aspartate Amino Transferase 42 U/L (5-37); Blood Urea Nitrogen 12 mg/dL (9-16); Calcium 8.4 mg/dL (8.4-10.2); Carbon Dioxide 25 mmol/L (22-29); Chloride 115 mmol/L (96-108); Creatinine Clr Calc Pharmacy 113.8; Estimated Glomerular Filt Rate > 60; Lipase 21 U/L (8-78); Potassium 4.4 mmol/L (3.3-5.1); Sodium 143 mmol/L (135-145); Total Protein 6.6 g/dL (6.5-8.0)
[2025-06-09 13:13] LABS: Troponin-I High Sensitivity 17.0 ng/L (<3.5-35.0)
[2025-06-09 13:30] LABS: Appearance Urine Clear; Glucose Urine UA Negative (Negative); PH 7.5 (5.0-9.0); Specific Gravity - Urine 1.015 (1.005-1.025)
[2025-06-09 13:37] LABS: Resp Syncy Virus RNA Qual PCR NEGATIVE (Negative); SARS COV2 PCR INHOUSE NEGATIVE (Negative)
--- NOTE | 2025-06-09 13:57 | PM.IMHP ---
History of Present Illness Date of Service: 06/09/25 Chief Complaint: ams 64M PMH HCV cirrhosis complicated by portal and splenic vein thromboses, tips, chronic pancytopenia, recurrent hepatic encephalopathy, hypertension presented with altered mental status. Patient was at primary care office. Noted to be unsteady and sluggish speech so sent to ED. In ED ammonia is approximate baseline around 80. Other labs at baseline as well. Patient is alert oriented x3, is a bit unsteady and does have some slow speech with adequate insight into medical condition but on superficial level and poor understanding of new information. Review of Systems Review of Systems: Yes all other systems are reviewed and are negative PMFSH Medical History Portal vein thrombosis Eye abnormality Cirrhosis of liver Pancytopenia Hyperammonemia Pancytopenia Obesity (BMI 30.0-34.9) Fall Pancytopenia Hepatic encephalopathy Cirrhosis Splenic vein thrombosis Sepsis Cirrhosis of liver with ascites Abdominal pain Thrombocytopenia Pancytopenia Cirrhosis Hepatitis C virus infection Esophageal varices Pancytopenia Iron deficiency anemia Cirrhosis Hepatitis C HBP (high blood pressure) Family History Maternal Grandmother Breast CA Uterus cancer Mother Primary lung cancer of unknown cell type Surgical History S/P TIPS (transjugular intrahepatic portosystemic shunt) H/O left inguinal hernia repair H/O eye surgery History of esophagogastroduodenoscopy (EGD) H/O colonoscopy Social History Household Members: Other Household Members Other:: pt comes from a [facility] Housing: Other Housing Other:: [facility] Are you a primary medicare coordinator to a significant other at home: No Do you presently have visiting nurse or other home services: No Alcohol intake: former Comment: pt refusing alarm's Patient Tobacco Use Status: Current someday Tobacco user Tobacco use type: Cigarette Cigarette Packs Per Day: 1 Cigarettes Per Day: 0.5 Years Smoked: 45 Smoked in Last 30 Days: Yes e-Cigarette/Vaping Use: Never Used Second Hand Smoke Exposure: No Use of substances other than those prescribed or required for medical reasons: No Substance Use Type: Heroin Advance Directives: Yes Advance Directives on File: Yes Advance Directives Date on File: 04/02/24 Do you have a plan to hurt others: No Plan service: No Current occupational status: retired Meds Allergies Allergy/AdvReac Type Severity Reaction Status Date / Time dicyclomine (From Bentyl) Allergy Unknown Verified 06/09/25 11:53 aspirin AdvReac Severe stomach Verified 06/09/25 11:53 bleeding NSAIDS (Non-Steroidal AdvReac Severe liver Verified 06/09/25 11:53 Anti-Inflamma concerns Active Medications: Current Medications Acetaminophen (Acetaminophen 325 Mg Tablet) 650 mg PO Q6H PRN PRN Reason: Pain, Mild 1-3,fever,headache Calcium Carbonate (Calcium Carbonate 750 Mg Tab.Chew) 750 mg PO Q4H PRN PRN Reason: Heartburn Magnesium Hydroxide (Milk Of Magnesia 30 Ml Oral.Susp) 30 ml PO DAILY PRN PRN Reason: Constipation Melatonin (Melatonin 3 Mg Tablet) 6 mg PO BEDTIME PRN PRN Reason: Insomnia Sodium Chloride (0.9 % Sodium Chloride Flush 3 Ml Syringe) 3 ml IVFLUSH QSHIFT [facility] Home Medications ?Medication ?Instructions ?Recorded ?Confirmed ?Last Taken ?Type blood pressure test kit-large #1 ea 05/27/25 Unknown History (Omron Blood Pressure Monitor-3 Series kit) lactulose 10 gram/15 mL oral 40 g PO BID 06/04/25 06/04/25 Unknown History solution Physical Exam Vital Signs and Narrative: Vital Signs: Last Vital Signs Temp 98.3 F 06/09/25 11:46 Pulse 61 06/09/25 11:46 Resp 18 06/09/25 11:46 BP 148/66 H 06/09/25 11:46 Pulse Ox 100 06/09/25 11:46 O2 Del Method Room Air 06/09/25 11:46 BMI result Body Mass Index 30.2 General: AO X 3, no acute distress Resp: CTA bilateral, no accessory muscles used CVS: S1,S2,RRR GI: soft, non tender, non distended Neuro: motor grossly intact, alert, no asterixis, unsteady gait Psych: appropriate affect, appropriate insight Results Labs 06/09/25 12:43 06/09/25 12:43 Labs: Laboratory Results - last 24 hr 06/09/25 06/09/25 06/09/25 12:42 12:43 13:17 MCV 78.6 L MCH 24.9 L MCHC 31.6 RDW 14.5 Plt Count 27 L MPV Not Reportable Immature Gran % (Auto) 0.0 Neut % (Auto) 50.6 Lymph % (Auto) 37.5 [place] % (Auto) 8.7 Eos % (Auto) 2.7 Baso % (Auto) 0.5 Lymph # (Auto) 0.7 L [place] # (Auto) 0.2 Eos # (Auto) 0.1 Baso # (Auto) 0.0 Abs Immat Gran (auto) 0.00 Absolute Neuts (auto) 0.9 L Absolute Nucleated RBC 0.000 Nucleated RBC % (auto) 0.0 Smear Tech's Comments VERIFIED PT 17.1 H INR 1.5 H Anion Gap 7 L Estim Creat Clear Calc 113.8 Estimated GFR > 60 Random Glucose 85 Lactic Acid 1.5 Calcium 8.4 Total Bilirubin 1.6 H Direct Bilirubin 0.7 H AST 42 H ALT 27 Alkaline Phosphatase 168 H Ammonia 86 H Troponin I High Sens 17.0 D Total Protein 6.6 Albumin 3.1 L Lipase 21 Urine Color Yellow Urine Appearance Clear Urine pH 7.5 Ur Specific [place] 1.015 Urine Protein Negative Urine Glucose (UA) Negative Urine Ketones Negative Urine Blood Negative Urine Nitrite Negative Ur Leukocyte Esterase Negative Influenza Type A (PCR) NEGATIVE Influenza Type B (PCR) NEGATIVE RSV RNA Qual (PCR) NEGATIVE SARS-CoV-2 RNA (RT-PCR) NEGATIVE Imaging Radiologist's Impressions: Impressions Chest X-Ray 06/09/25 12:30 IMPRESSION: No active pulmonary disease. Electronically signed by: Rao Hale MD 06/09/2025 12:38 PM EDT Assessment and Plan (1) Acute hepatic encephalopathy: Status: Acute Plan 64M PMH HCV cirrhosis complicated by portal and splenic vein thromboses, tips, chronic pancytopenia, recurrent hepatic encephalopathy, hypertension presented with altered mental status Acute metabolic encephalopathy due to hepatic encephalopathy due to decompensated HCV cirrhosis with chronic pancytopenia Lactulose, rifaximin Goal 2-3 bowel movements per day PT eval for unsteady gait Hypertension Amlodipine DVT prophylaxis-mechanical due to thrombocytopenia Full Code Quality Stroke Does the patient have a stroke diagnosis?: No VTE Prior VTE?: Yes VTE Risk Level:: Medical - moderate - high VTE Device Contraindication: Treatment Not Indicated VTE Drug Contraindication: N/A - Med Ordered
--- OUTSIDE RECORDS SUMMARY | 2025-06-09 14:33 | XMS_ITS | Clinical Summary ---
Author Organization [facility] Address [address] [address] Phone Care Team Providers Care Diabetes Specialist Name Role Phone Leta Soto MD [...] Encounters Date Type Department Care Team Description 06/09/2025 Telephone [facility] [address] 10th [place] [address] Michela Matt MD Procedure Instructions 05/28/2025 10:00 AM EDT Pre-Admission Testing JORGE Pre Procedure Evaluation Center [address] [place] [address] Michela Matt MD 04/20/2025 1:15 PM EDT Office Visit [facility] [address] [facility] 10th [place] [address] Michela Matt MD Cicatricial ectropion of right [...] Procedure Pass [facility] [address] [place] [address] 06/11/2025 10:30 AM EDT Hospital Encounter [facility] [address] [place] [address] Michela Matt MD [address] [place] [phone] [email or web address] 06/11/2025 10:30 AM EDT Anesthesia Event [facility] [address] [place] [address] Juliana Loredo NP [address] [place] [address] Chance [email or web address] 06/11/2025 10:30 AM EDT - 06/11/2025 11:30 AM EDT Surgery [facility] [address] [place] [address] Michela Matt MD [address] [place] [phone] [email or web address] LATERAL TARSAL STRIP 06/29/2025 2:30 PM EDT Office Visit [facility] [address] [address] Michela Matt MD [address] [place] [phone] [email or web address] Scheduled Procedures Name Priority Associated Diagnoses Date/Ti pr LATERAL TARSAL STRIP Ectropion of right upper eyelid, unspecified ectropion type 06/11/2025 10:30 AM EDT Health Maintenance Due Date Last Done [...] 12/03/2011 INFLUENZA VACCINE (#1) 2025 COVID-19 VACCINE ( - 2023-2 5 season) 2025 LIPID PANEL [...] ACO C3 ACO C3 ACO C3 ACO [facility] C3 ACO Care Teams Diabetes Specialist Relationship Specialty Start Date End Date Leta Soto MD [address] [place] [phone] PCP - General Internal Medicine 01/05/25 Additional Source Comments The information contained in this document represents components of the legal health record. It is not the complete legal health record.[facility]
--- OUTSIDE RECORDS SUMMARY | 2025-06-09 14:34 | XMS_ITS | Encounter Summary ---
Author Organization [employer] Address [address] [facility] 7t [place] [address] Care Team Providers Care Emergency Department Aide Name Role Phone Leta Soto MD Primary Care Pro vider Yajaira Antonio Unavailable Encounter Details Date Type Department Care Team (Late st Contact Info) Description 11/11/2024 Telephone [facility] MEDICINE [address] [place] [address] Leta Soto MD [address] [place] [address] Social History Tobacco Use Types Packs/Day Years [...] PM EST Tc from amrita stiles case monitor requesting the status on pt documented in [...] documented as of this encounter Care Teams Emergency Department Aide Relationship Specialty Start Date End Date Leta Soto MD [address] [place] [phone] PCP - General Internal Medicine 04/11/23 Yajaira Antonio [address] 3rd [place] [address] Gastroenterology 09/04/24 [facility] 01/28/25 documented as of this encounter
--- OUTSIDE RECORDS SUMMARY | 2025-06-09 14:34 | XMS_ITS | Encounter Summary ---
Author Organization [employer] Address [address] [facility] [address] [place] [address] Care Team Providers Care Manager Image Name Role Phone Leta Soto MD Primary Care Pro vider Yajaira Antonio Unavailable Encounter Details Date Type Department Care Team (Late st Contact Info) Description 12/17/2023 Orders Only [facility] [address] [place] [address] Tatyana Mosquera FNP [address] [place] [address] Social History Tobacco Use Types Packs/Day Years [...] as of this encounter Care Teams Manager Image Relationship Specialty Start Date End Date Leta Soto MD [address] [place] [phone] PCP - General Internal Medicine 04/11/23 Yajaira Antonio [address] [place] [address] Drive 3rd [place] [address] Gastroenterology 09/04/24 [facility] 01/28/25 documented as of this encounter
--- OUTSIDE RECORDS SUMMARY | 2025-06-09 14:34 | XMS_ITS | Encounter Summary ---
Author Organization [employer] Address [address] [facility] 7t [place] [address] Care Team Providers Care Society Editor Name Role Phone Leta Soto MD Primary Care Pro vider Yajaira Antonio Unavailable Encounter Details Date Type Department Care Team (Latest Contact Info) Description 06/09/2025 Travel Social History Tobacco Use Types Packs/Day [...] documented as of this encounter Care Teams Society Editor Relationship Specialty Start Date End Date Leta Soto MD [address] [place] [phone] PCP - General Internal Medicine 04/11/23 Yajaira Antonio [address] [place] [address] 3rd [place] [address] Gastroenterology 09/04/24 [facility] 01/28/25 documented as of this encounter
--- OUTSIDE RECORDS SUMMARY | 2025-06-09 14:34 | XMS_ITS | Encounter Summary ---
Author Organization [employer] Address [address] [facility] 7t [place] [address] Care Team Providers Care Promotions Executive Producer Name Role Phone Leta Soto MD Primary [...] Ammonia (P) 64(H) 13 - 55 umol/L [facility] 06/04/2025 4:07 PM EDT 06/04/2025 4:10 PM EDT Generic External Data Provider LAB BLOOD ORDERAB LES Final Result Performing Organization Address City/[facility]/ZIP Co de Phone Number [facility] [address] [place] [phone] Urinalysis w/reflex microscopic (06/04/2025 3:54 PM EDT) Color Urine Yellow [facility] Appearance Urine Clear [facility] PH 7.0 5.0 - 9.0 [facility] Glucose Urine UA Negative Negative mg/dL [facility] Urine Blood Negative Negative [facility] Specific [place] - Urine 1.015 1.005 - 1.025 [facility] Urine Protein Negative Neg-Trace mg/dL [facility] Urine Ketones Negative Negative mg/dL [facility] Nitrite Urine Negative Negative [facility] Leukocyte Esterase Urine Negative Negative [facility] 06/04/2025 3:54 PM EDT 06/04/2025 4:10 PM EDT Narrative [facility] - 06/04/2025 4:30 PM EDT [id number], Clean Catch Generic External Data Provider LAB URINE ORDERAB LES Final Result Performing Organization Address [facility] Co de Phone Number [facility] [address] [place] [phone] * Drug Monitoring, Panel 1, Screen, Urine (06/04/2025 3:34 PM EDT) Pathologist [facility] Opiate Screen Urine Not Detected Not Detect [facility] Comment:Opiate cut-off is 30 0 ng/mL.Positive results are unconfirmed and should not be used fornon-medical purposes. Barbiturates, Urine Not Detected Not Detect [facility] Comment:Barbiturate cut-off is 200 ng/mL.Positive results are unconfirmed and should not be used fornon-medical purposes. Phencyclidine Screen Urine Not Detected Not Detect [facility] Comment:Phencyclidine cut-of f is 25 ng/mL.Positive results are unconfirmed and should not be used fornon-medical purposes. Amphetamine Screen Urine Not Detected Not Detect [facility] Comment:Amphetamine cut-off is 1000 ng/mL.Positive results are unconfirmed and should not be used fornon-medical purposes. Benzodiazepines Screen Urine Not Detected Not Detect [facility] Comment:Benzodiazepine cut-o ff is 200 ng/mL.Positive results are unconfirmed and should not be used fornon-medical purposes. Cocaine Screen Urine Not Detected Not Detect [facility] Comment:Cocaine cut-off is 3 00 ng/mL.Positive results are unconfirmed and should not be used fornon-medical purposes. Cannabinoid Screen Urine Not Detected Not Detect [facility] Comment:Cannabinoid cut-off is 50 ng/mL.Positive results are unconfirmed and should not be used fornon-medical purposes. Methadone Screen, Urine Not Detected Not Detect ng/mL [facility] Comment:Methadone cut-off is 300 ng/mL.Positive results are unconfirmed and should not be used fornon-medical purposes. FENTANYL URINE Not Detected Not Detect [facility] Comment:Fentanyl cut-off is 1 ng/mL.Positive results are unconfirmed and should not be used fornon-medical purposes. Oxycodone Urine Screen Not Detected Not Detect ng/mL [facility] Comment:Oxycodone cut-off is 100 ng/mL.Positive results are unconfirmed and should not be used fornon-medical purposes. Buprenorphine Screen Not Detected Not Detect ng/mL [facility] Comment:Buprenorphine cut-of f is 5 ng/mL.Positive results are unconfirmed and should not be used fornon-medical purposes. 06/04/2025 3:34 PM EDT 06/04/2025 3:36 PM EDT us Generic External Data Provider LAB URINE ORDERAB LES Final Result Performing Organization Address [facility] Co de Phone Number [facility] [address] [place] [phone] * Lipase (06/04/2025 2:25 PM EDT) Lipase 20 8 - 78 U/L [facility] 06/04/2025 2:25 PM EDT 06/04/2025 2:29 PM EDT Generic External Data Provider LAB BLOOD ORDERAB LES Final Result Performing Organization Address [facility] de Phone Number [facility] [address] [place] [phone] * Hepatic Function Panel (06/04/2025 2:25 PM EDT) Pathologist [facility] Bilirubin, Direct 0.5 0.0 - 0.5 mg/dL [facility] 06/04/2025 2:25 PM EDT 06/04/2025 2:29 PM EDT Generic External Data Provider LAB BLOOD ORDERAB LES Final Result Performing Organization Address [facility] Co de Phone Number [facility] [address] [place] [phone] * (ABNORMAL) Comprehensive Metabolic Panel (06/04/2025 2:25 PM EDT) Sodium 143 135 - 145 mmol/L [facility] Potassium 4.6 3.3 - 5.1 mmol/L [facility] Chloride 115(H) 96 - 108 mmol/L [facility] Carbon Dioxide 26 22 - 29 mmol/L [facility] Anion Gap 7(L) 12 - 20 [facility] Urea Nitrogen (BUN) 11 9 - 16 mg/dL [facility] Creatinine, Serum 0.76 0.5 - 1.4 mg/dL [facility] Creatinine Clr Calc Pharmacy 102.7 [facility] Comment:eGFR (calculated fro m the MDRD study equation) and eCrCl(calculated from the Cockcroft-Gault equation) are based ondifferent parameters and may not yield comparable results.If eCrCl result is absurd, please check patient'sheight/weight. Estimated Glomerular Filt Rate >60 [facility] Comment:Chronic Kidney Disea se: Estimated GFR < 60 mL/min/1.65k1Ichtjs Kidney Disease: Estimated GFR < 15 mL/min/1.73m2 Glucose 66 60 - 115 mg/dL [facility] Calcium 8.4 8.4 - 10.2 mg/dL [facility] Bilirubin, Total 1.3(H) 0.0 - 1.0 mg/dL [facility] Aspartate Amino Transferase 32 5 - 37 U/L [facility] Alanine Aminotransferase 21 0 - 40 U/L [facility] Total Protein 6.1(L) 6.5 - 8.0 g/dL [facility] Albumin Level 2.9(L) 3.5 - 5.0 g/dL [facility] Alkaline Phosphatase 122(H) 39 - 117 U/L [facility] 06/04/2025 2:25 PM EDT 06/04/2025 2:29 PM EDT us Generic External Data Provider LAB BLOOD ORDERAB LES Final Result [facility] [address] [place] [phone] * (ABNORMAL) CBC auto differential (06/04/2025 2:25 PM EDT) White Blood Count 2.3(L) 4.8 - 10.8 X10*3/uL [facility] Red Blood Count 3.34(L) 4.60 - 5.80 X10*6/uL [facility] Hemoglobin 8.4(L) 14.0 - 18.0 g/dl [facility] Hematocrit 26.6(L) 42.0 - 52.0 % [facility] Mean Corpuscular Volume 79.6(L) 80.0 - 98.0 fL [facility] Mean Corpuscular Hemoglobin 25.1(L) 27.0 - 33.0 pg [facility] Mean Corpuscular HGB Conc 31.6 31.0 - 36.0 g/dl [facility] Red Cell Distribution Width 14.4 11.0 - 16.0 % [facility] Platelet Count 32(L) 160 - 400 X10*3/uL [facility] Mean Platelet Volume TNP 9.4 - 12.4 fL [facility] Neutrophils Percent Auto 57.6 45 - 73 % [facility] Imm Gran Pct Auto 0.0 0.0 - 0.4 % [facility] Lymphocytes Percent Auto 29.2 20 - 40 % [facility] Monocytes Percent Auto 11.9(H) 2 - 11 % [facility] Eosinophils Percent Auto 1.3 0 - 4 % [facility] Basophils Percent Auto 0.0 0 - 2 % [facility] NRBC Pct Auto 0.0 0.0 - 0.2 /100WBC [facility] Neutrophils Absolute Auto 1.3(L) 2.0 - 8.3 x10*3/uL [facility] Imm Gran Abs Auto 0.00 0.00 - 0.03 X10*3/uL [facility] Lymphocytes Absolute Auto 0.7(L) 1.2 - 4.9 X10*3/uL [facility] Monocytes Absolute Auto 0.3 0.1 - 1.2 X10*3/uL [facility] Eosinophils Absolute Auto 0.0 0.0 - 0.4 X10*3/uL [facility] Basophils Absolute Auto 0.0 0.0 - 0.2 X10*3/uL [facility] NRBC Abs Auto 0.000 0.0 - 0.012 X10*3/uL [facility] 06/04/2025 2:25 PM EDT 06/04/2025 2:29 PM EDT us Generic External Data Provider LAB BLOOD ORDERAB LES Edited Result - Final [facility] [address] [place] [phone] [phone] documented in this encounter Visit Diagnoses Not on filedocumented in this encounter Additional Health Concerns Assessment Noted Time PHQ-9 Depression Total Score: 0 03/12/20 25 10:25 AM EDT documented as of this encounter Care Teams Promotions Executive Producer Relationship Specialty Start Date End Date Leta Soto MD [address] [place] [address] PCP - General Internal Medicine 04/11/23 Yajaira Antonio [address] 3rd [place] [address] Gastroenterology 09/04/24 [facility] 01/28/25 documented as of this encounter
--- OUTSIDE RECORDS SUMMARY | 2025-06-09 14:34 | XMS_ITS ---
Author Organization [employer] Address [address] [facility] 7t [place] [address] Care Team Providers Care College Administrator Name Role Phone Leta Soto MD [...] Phone Stanley Mckeon RN(Responsible Staff) Registered Nurse [phone] Continued Care and Services Coordination
--- OUTSIDE RECORDS SUMMARY | 2025-06-09 14:34 | XMS_ITS | Encounter Summary ---
Author Organization [employer] Address [address] [facility] 7t [place] [address] Care Team Providers Care Gastroenterology Professor Name Role Phone Leta Soto MD Primary Care Pro vider PacoYajaira Unavailable Reason for Visit * Reason Onset Date Comments ER Follow-up 06/09/2025 Encounter Details Date Type Department Care Team (Late st Contact Info) Description 06/09/2025 Telephone [facility] MEDICINE [address] [place] [address] Leta Soto MD [address] [place], [place] [phone] ER Follow-up Social History Tobacco Use Types Packs/Day Years [...] encounter Miscellaneous Notes * Telephone Encounter - [place] Hameed RN - 06/09/2025 11:16 AM EDT Per request of Dr Yan, called EMS for pt for altered mental status, concern for hepatic encephalopathy, dizziness. Will task to status check. documented in this encounter Plan of Treatment [...] documented as of this encounter Care Teams Gastroenterology Professor Relationship Specialty Start Date End Date Leta Soto MD [address] [place] [phone] PCP - General Internal Medicine 04/11/23 Yajaira Antonio [address] [place] [address] Drive 3rd [place] [address] Gastroenterology 09/04/24 [facility] 01/28/25 documented as of this encounter
--- OUTSIDE RECORDS SUMMARY | 2025-06-09 14:34 | XMS_ITS | Encounter Summary ---
Author Organization [employer] Address [address] [facility] 7t [place] [address] Care Team Providers Care Nursing Informatics Clinical Analyst Name Role Phone Leta Soto MD Primary Care Pro vider Yajaira Antonio Unavailable Reason for Visit * Reason Onset Date Comments chart prep 06/08/2025 Encounter Details Date Type Department Care Team (Late st Contact Info) Description 06/08/[address] [facility] MEDICINE [address] [place] [address] Leta Soto MD [address] [place] [address] chart prep Social History Tobacco Use Types Packs/Day Years [...] the past 12 months, has t he [employer], gas, oil or water company threatened to [...] Telephone Encounter - Nhung Caicedo [place] - 06/08/2025 9:55 AM EDT Chart Prep Labs: done Images: done Screenings: Colonoscopy Vaccines due: Covid Due, Tdap Due, Flu Due, RSV in Pharmacy Due, and Shingles in pharmacy Due Referrals: Completed Overdue care gaps: Disability documented in this encounter Plan of Treatment Not on file documented as of this encounter Goals Goal Patient Goal Type Associated Problems Recent Progress Patient-Stated? Author Blood Pressure < 140/90 Blood Pressure 150/50(2024 10:23 AM EDT) Loan Newsome Record your blood pressure once per day Blood Pressure No Loan [place] documented as of this encounter Visit Diagnoses Not on filedocumented in this encounter Additional Health Concerns Assessment Noted Time PHQ-9 Depression Total Score: 0 03/12/20 10:25 AM EDT documented as of this encounter Care Teams Nursing Informatics Clinical Analyst Relationship Specialty Start Date End Date Leta Soto MD [address] [place] [phone] PCP - General Internal Medicine 04/11/[address]rd [place] [address] Gastroenterology 09/04/24 [facility] 01/28/25 documented as of this encounter
--- OUTSIDE RECORDS SUMMARY | 2025-06-09 14:34 | XMS_ITS | Encounter Summary ---
Author Organization [employer] Address [address] [facility] 7t [place] [address] Care Team Providers Care Trauma Program Manager Name Role Phone Leta Soto MD Primary Care Pro vider Yajaira Antonio Unavailable Encounter Details Date Type Department Care Team (Late st Contact Info) Description 04/13/2025 Results Follow-Up [facility] MEDICINE [address] [place] [address] Leta Soto MD [address] [place] [address] CT Cervical Spine w/o Contrast Social History [...] documented as of this encounter Care Teams Trauma Program Manager Relationship Specialty Start Date End Date Leta Soto MD [address] [place] [phone] PCP - General Internal Medicine 04/11/23 Yajaira Antonio [address] [place] [address] Drive 3rd [place] [address] Gastroenterology 09/04/24 [facility] 01/28/25 documented as of this encounter
--- OUTSIDE RECORDS SUMMARY | 2025-06-09 14:34 | XMS_ITS ---
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 Needs support managing specialist appointments. Please outreach for enrollment. Case Team Name Relationship Phone Chata Puente(Responsible Staff) [phone] Continued Care and Services Coordination
--- OUTSIDE RECORDS SUMMARY | 2025-06-09 14:34 | XMS_ITS | Encounter Summary ---
Author Organization [employer] Address [address] [facility] 7t [place] [address] Care Team Providers Care Concrete Stone Finisher Name Role Phone Leta Soto MD Primary Care Pro vider Yajaira Antonio Unavailable Encounter Details Date Type Department Care Team (Late st Contact Info) Description 04/21/2025 Orders Only [facility] MEDICINE [address] [place] [address] Imelda Pfeiffer, CHANDU [address] [place] [address] Healthcare maintenance Social History Tobacco Use Types [...] as of this encounter Plan of Treatment Scheduled Orders Name Type Priority Associated Diagnoses [...] Real-Time PCR (04/21/2025 10:43 AM EDT) Pathologist [facility] Hepatitis C Viral Load <15 NOT DETECTED NOT DETECTED IU/mL [facility] HCV Log PCR <1.18 NOT DETECTED NOT DETECTED Log IU/mL [facility] Comment:For additional infor mation, please refer [email or web address]/faq/[email or web address](This link is being provided for informational/educational purposes only.)THIS TEST WAS PERFORMED AT:[facility] [place] [phone] STRICKLAND MD 04/21/2025 10:4 3 AM EDT 04/22/2025 8:54 AM EDT us Leta Dick MD LAB BLOOD ORDERAB LES Final Result [facility] [address] [place] [phone] * HIV-1 RNA, Quantitative, Real-Time PCR (04/21/2025 10:43 AM EDT) Pathologist [facility] HIV RNA PCR Qn Copies NOT DETECTED NOT DETECTED copies/mL [facility] HIV RNA PCR Qn Log Copies NOT DETECTED NOT DETECTED [facility] Comment:Result Units: Log co pies/mLThis test was performed using Real-Time Polymerase ChainReaction.Reportable Range: 20 copies/mL to 10,000,000 copies/mL(1.30 log copies/mL to 7.00 log copies/mL).THIS TEST WAS PERFORMED AT:[facility] [place] [phone] STRICKLAND MD 04/21/2025 10:4 3 AM EDT 04/21/2025 1:18 PM EDT Leta Dick MD LAB BLOOD ORDERAB LES Final Result Performing Organization Address [facility] Co de Phone Number [facility] [address] [place] [phone] * RPR (Monitor) with Reflex to??Titer (04/21/2025 10:43 AM EDT) RPR (Monitor) w/Refl Titer NON-REACTI VE NON-REACT [place] [facility] Comment:THIS TEST WAS PERFOR MED AT:[facility] [place] [phone] STRICKLAND MD Rapid Plasma Reagin Ab Titer TNP [facility] 04/21/2025 10:4 3 AM EDT 04/21/2025 1:18 PM EDT Leta Dick MD LAB BLOOD ORDERAB LES Final Result Performing Organization Address [facility]/ZIP Co de Phone Number [facility] [address] [place] [phone] * (ABNORMAL) Hepatitis C Antibody with Reflex to HCV, RNA, Quantitative, Real- Time PCR (04/21/2025 10:43 AM EDT) Hepatitis C Antibody Reactive( A) Nonreactive [facility] Comment:Presumptive evidence of antibodies to HCV. 04/21/2025 10:4 3 AM EDT 04/21/2025 1:18 PM EDT us Leta Dick MD LAB BLOOD ORDERAB LES Final Result Performing Organization Address [facility] Co de Phone Number [facility] [address] [place] [phone] * Syphilis Screen (04/21/2025 10:43 AM EDT) Syphilis Screen Nonreactive Nonreactive [facility] 04/21/2025 10:4 3 AM EDT 04/21/2025 1:18 PM EDT us Leta Dick MD LAB BLOOD ORDERAB LES Final Result Performing Organization Address [facility] de Phone Number [facility] [address] [place] [phone] documented in this encounter Visit Diagnoses Diagnosis Healthcare maintenance documented in this encounter Additional Health Concerns Assessment Noted Time PHQ-9 Depression Total Score: 0 03/12/20 25 10:25 AM EDT documented as of this encounter Care Teams Concrete Stone Finisher Relationship Specialty Start Date End Date Leta Soto MD [address] [place] [phone] PCP - General Internal Medicine 04/11/23 Yajaira Antonio [address] [place] [address] [address] [place] [address] Gastroenterology 09/04/24 [facility] 01/28/25 documented as of this encounter
--- OUTSIDE RECORDS SUMMARY | 2025-06-09 14:34 | XMS_ITS | Encounter Summary ---
Author Organization [facility] Address [address] [facility] [address] [place] [phone] Phone Care Team Providers Care Buffer Machine Name Role Phone Leta Soto MD Primary Care Pro vider Reason for Visit * Reason Onset Date Comments Procedure Instructions 06/09/2025 Encounter Details Date Type Department Care Team (Late st Contact Info) Description 06/09/2025 Telephone [facility] [address] [facility] [address] [place] [address] Michela Matt MD [address] [place] [phone] [email or web address] Procedure Instructions Social History Tobacco Use Types Packs/Day Years Used Date Smoking Tobacco: Never Smokeless Tobacco: Never Education Answer Date Recorded Are you interested [...] as of this encounter Progress Notes * Darcy Ness - 06/09/2025 12:14 PM EDT LMOM with clerical specialist assistance with all instructions for pts 06/[address] Itzel Matt. documented in this encounter Plan of Treatment Upcoming Encounters Date Type Department Care Team (Latest Contact Info) Description 06/11/2025 Procedure Pass [facility] [address] [place] [address] 06/11/2025 10:30 AM EDT Hospital Encounter [facility] [address] [place] [address] Michela Matt MD [address] [place] [phone] [email or web address] 06/11/2025 10:30 AM EDT Anesthesia Event [facility] [address] [place] [address] Juliana Loredo NP [address] [place] [phone] Chance [email or web address] 06/11/2025 10:30 AM EDT - 06/11/2025 11:30 AM EDT Surgery [facility] [address] [place] [address] Michela Matt MD [address] [place] [phone] [email or web address] LATERAL TARSAL STRIP 06/29/2025 2:30 PM EDT Office Visit [facility] [address] [facility] [address] [place] [address] Michela Matt MD [address] [place] [phone] [email or web address] Scheduled Procedures Name Priority Associated Diagnoses Date/Ti il LATERAL TARSAL STRIP Ectropion of right upper eyelid, unspecified ectropion type 06/11/2025 10:30 AM EDT documented as of this encounter Visit Diagnoses Not on filedocumented in this encounter Care Teams Buffer Machine Relationship Specialty Start Date End Date Leta Soto MD [address] [place] [phone] PCP - General Internal Medicine 01/05/25 documented as of this encounter Additional Source Comments The information contained in this document represents components of the legal health record. It is not the complete legal health record.[facility]
--- OUTSIDE RECORDS SUMMARY | 2025-06-09 14:34 | XMS_ITS | Encounter Summary ---
Author Organization [employer] Address [address] [facility] 7t [place] [address] Care Team Providers Care Fuel Island Attendant Name Role Phone Leta Soto MD Primary Care Pro vider Yajaira Antonio Unavailable Encounter Details Date Type Department Care Team (Late st Contact Info) Description 06/09/2025 Orders Only GENERIC EXTERNAL DATA DEPARTMENT Provider, [...] Procedure Name Priority Date/Time Associated Diagnosis Comments URINALYSIS WITH REFLEX MICROSCOPIC Routine 06/09/2025 1:17 PM EDT SLIDE REVIEW Routine 06/09/2025 12:43 PM EDT SARS COV2/INFLUENZA A/B AND RSV RNA QL NAAT Routine 06/09/2025 12:43 PM EDT CBC WITH AUTO DIFFERENTIAL Routine 06/09/2025 12:43 PM EDT documented in this encounter Results * Urinalysis w/reflex microscopic (06/09/2025 1:17 PM EDT) Color Urine Yellow [facility] Appearance Urine Clear [facility] PH 7.5 5.0 - 9.0 [facility] Glucose Urine UA Negative Negative mg/dL [facility] Urine Blood Negative Negative [facility] Specific [place] - Urine 1.015 1.005 - 1.025 [facility] Urine Protein Negative Neg-Trace mg/dL [facility] Urine Ketones Negative Negative mg/dL [facility] Nitrite Urine Negative Negative [facility] Leukocyte Esterase Urine Negative Negative [facility] 06/09/2025 1:17 PM EDT 06/09/2025 1:27 PM EDT Narrative [facility] - 06/09/2025 1:32 PM EDT [id number], Clean Catch us Generic External Data Provider LAB URINE ORDERAB LES Final Result [facility] [address] [place] [phone] [phone] * SARS-CoV-2 RNA, Influenza A/B, and RSV RNA, Ql NAAT (06/09/2025 12:43 PM EDT) Influenza A PCR NEGATIVE Negative [facility] Influenza B PCR NEGATIVE Negative [facility] Resp Syncy Virus RNA Qual PCR NEGATIVE Negative [facility] SARS COV2 PCR NEGATIVE Negative [facility] Comment:All test results mus t be correlated with clinical findings.Negative results do not preclude SARS-CoV2, influenza Avirus, influenza B virus and/or RSV infectionand should not be used as the sole basis for treatment orother patient management decisions. Negative results must becombined with clinical observations, patient history, andepidemiological information.This test has not been evaluated for monitoring treatment ofinfection.This test has been authorized by the FDA under an EmergencyUse Authorization (EUA) for use by authorized laboratories.Testing performed on the [employer] GeneXpert utilizingreal-time RT-PCR.All SARS CoV2 and positive influenza A/B results arereported to [facility]. 06/09/2025 12:4 3 PM EDT 06/09/2025 12:46 PM EDT us Generic External Data Provider LAB MICROBIOLOGY - GENERAL ORDERABLES Final Result Performing Organization Address City/[facility]/ZIP Co de Phone Number [facility] [address] [place] [address] [phone] * Slide Review (06/09/2025 12:43 PM EDT) Slide Review VERIFIED [facility] 06/09/2025 12:4 3 PM EDT 06/09/2025 12:46 PM EDT Generic External Data Provider LAB BLOOD ORDERAB LES Final Result Performing Organization Address [facility] Co de Phone Number [facility] [address] [place] [phone] * (ABNORMAL) CBC auto differential (06/09/2025 12:43 PM EDT) White Blood Count 1.8(L) 4.8 - 10.8 X10*3/uL [facility] Red Blood Count 3.74(L) 4.60 - 5.80 X10*6/uL [facility] Hemoglobin 9.3(L) 14.0 - 18.0 g/dl [facility] Hematocrit 29.4(L) 42.0 - 52.0 % [facility] Mean Corpuscular Volume 78.6(L) 80.0 - 98.0 fL [facility] Mean Corpuscular Hemoglobin 24.9(L) 27.0 - 33.0 pg [facility] Mean Corpuscular HGB Conc 31.6 31.0 - 36.0 g/dl [facility] Red Cell Distribution Width 14.5 11.0 - 16.0 % [facility] Platelet Count 27(L) 160 - 400 X10*3/uL [facility] Neutrophils Percent Auto 50.6 45 - 73 % [facility] Imm Gran Pct Auto 0.0 0.0 - 0.4 % [facility] Lymphocytes Percent Auto 37.5 20 - 40 % [facility] Monocytes Percent Auto 8.7 2 - 11 % [facility] Eosinophils Percent Auto 2.7 0 - 4 % [facility] Basophils Percent Auto 0.5 0 - 2 % [facility] NRBC Pct Auto 0.0 0.0 - 0.2 /100WBC [facility] Neutrophils Absolute Auto 0.9(L) 2.0 - 8.3 x10*3/uL [facility] Imm Gran Abs Auto 0.00 0.00 - 0.03 X10*3/uL [facility] Lymphocytes Absolute Auto 0.7(L) 1.2 - 4.9 X10*3/uL [facility] Monocytes Absolute Auto 0.2 0.1 - 1.2 X10*3/uL [facility] Eosinophils Absolute Auto 0.1 0.0 - 0.4 X10*3/uL [facility] Basophils Absolute Auto 0.0 0.0 - 0.2 X10*3/uL [facility] NRBC Abs Auto 0.000 0.0 - 0.012 X10*3/uL [facility] 06/09/2025 12:4 3 PM EDT 06/09/2025 12:46 PM EDT us Generic External Data Provider LAB BLOOD ORDERAB LES Edited Result - Final [facility] [address] [place] [phone] documented in this encounter Visit Diagnoses Not on filedocumented in this encounter Additional Health Concerns Assessment Noted Time PHQ-9 Depression Total Score: 0 03/12/20 25 10:25 AM EDT documented as of this encounter Care Teams Fuel Island Attendant Relationship Specialty Start Date End Date Leta Soto MD [address] [place] [address] PCP - General Internal Medicine 04/11/23 Yajaira Antonio [address] [place] [address] Drive 3rd [place] [address] Gastroenterology 09/04/24 [facility] 01/28/25 documented as of this encounter
--- OUTSIDE RECORDS SUMMARY | 2025-06-09 14:34 | XMS_ITS | Clinical Summary ---
Author Organization [employer] Address [address] [facility] 7[address] [place] [address] Care Team Providers Care Negative Notcher Name Role Phone Leta Soto MD Primary [...] 2 3 Active amLODIPine (Norvasc) 5 MG tabletIndication s:Essential hypertension Take 1 tablet (5 mg) by mouth Once per day. 30 tablet 11 5 11/25/19 26 Active furosemide (Lasix) 40 MG tabletIndication s:Bilateral leg edema Take 1 tablet (40 mg) by mouth in the morning. 30 tablet 11 5 11/28/19 26 Active Blood Pressure kitIndications:H ypertension, unspecified type [...] 12 tablet 4 5 03/16/20 26 Active lactulose (Chronulac) 10 GM/15ML solution TAKE 45 ML BY MOUTH THREE TIMES DAILY DIRECTED 1350 mL 3 5 Active diphenhydrAMINE (BENADryl) 12.5 MG/5ML elixirIndication s:Oral ulcer Magic Mouth Wash: Mix equal amount (60mL) of Benadryl + Maalox + Viscous Lidocaine (total 180mL). Use 5mL PO swish and spit 4x/day before meals and bedtime PRN. 60 mL 1 5 Active aluminum-magnesi um hydroxide-simeth icone (Maalox) 200-200-20 MG/5ML suspensionIndica tions:Oral ulcer Magic Mouth Wash: Mix equal amount (60mL) of Benadryl + Maalox + Viscous Lidocaine (total 180mL). Use 5mL PO swish and spit 4x/day before meals and bedtime PRN. 60 mL 1 5 Active lidocaine (Xylocaine) 2 % solutionIndicati ons:Oral ulcer Magic Mouth Wash: Mix equal amount (60mL) of Benadryl + Maalox + Viscous Lidocaine (total 180mL). Use 5mL PO swish and spit 4x/day before meals and bedtime PRN. 60 mL 1 5 Active carvedilol (Coreg) 6.25 MG tablet TAKE 1 TABLET BY MOUTH TWICE DAILY IN THE MORNING AND IN THE EVENING WITH FOOD 5 Active clotrimazole (Lotrimin) 1 % cream APPLY TOPICALLY TO THE AFFECTED AREA(S) TWICE DAILY FOR 28 DAYS 5 06/09/20 25 Discontin ued(Other ) sildenafil (Viagra) 25 MG tabletIndication s:Essential hypertension Take 1 tablet (25 mg) by mouth if needed each day for erectile dysfunction. 10 tablet 5 06/09/20 25 Discontin ued(Other ) carvedilol (Coreg) 3.125 MG tablet Take 1 tablet (3.125 mg) by mouth with breakfast and with evening meal. 60 tablet 2 5 06/09/20 25 Discontin ued(Other ) Active Problems Problem Noted Date Diagnosed Date Erectile dysfunction 04/17/2025 Assessment & Plan (04/17/2025 9:50 AM EDT): Counseling done I prescribed sildenafil 25mg PRN At high risk for bleeding 03/13/2025 Hospital discharge follow-up 03/13/2025 Abnormal CXR 03/13/2025 Syncope 03/13/2025 Bilateral leg edema 11/27/2024 Cirrhosis (CMS/HCC) 11/23/2024 Hyperammonemia 11/23/2024 Hepatic encephalopathy (CMS/HCC) 11/23/2024 Portal vein thrombosis 11/23/2024 Esophageal varices [...] once established b. Patient may return to [facility] for medical needs until a PCP [...] Date Type Department Care Team Description 06/09/2025 9:45 AM EDT Office Visit [facility] [address] [facility] [place] [address] Leta Soto MD Dizziness (Primary Dx) 06/09/2025 Orders Only GENERIC EXTERNAL DATA DEPARTMENT Provider, Generic External Data 06/09/2025 Telephone [facility] [address] [facility] [place] [address] Leta Soto MD ER Follow-up 06/09/2025 Travel 06/08/2025 Telephone [facility] [address] [place] [address] Leta Soto MD chart prep 06/04/2025 Orders Only GENERIC EXTERNAL DATA DEPARTMENT Provider, Generic External Data 05/30/2025 10:40 AM EDT Office Visit [facility] [address] [place] [address] Victoriano Beyer MD Oral ulcer (Primary Dx) 05/30/2025 Travel 05/22/2025 Orders Only [facility] External Provider, [facility] 05/21/2025 Orders Only GENERIC EXTERNAL DATA DEPARTMENT Provider, Generic External Data 05/20/2025 Orders Only GENERIC EXTERNAL DATA DEPARTMENT Provider, Generic External Data 05/15/2025 Orders Only GENERIC EXTERNAL DATA DEPARTMENT Provider, Generic External Data 04/27/2025 Orders Only [facility] [address] [place] [address], [place] [address] Veronica Miles, CHANDU 04/27/2025 Refill [facility] [address] [place] [address] Leta Soto MD 04/22/2025 Telephone [facility] [address] [place] [address] Sadia Denny RN Medication Changes 04/22/2025 Orders Only [facility] [address] [facility], [place] [phone] Leta Soto MD 04/21/2025 Orders Only [facility] [address] [place] [address] Imelda Pfeiffer, CHANDU Healthcare maintenance 04/20/2025 Telephone [facility] [address] [facility], [place] [phone] Leta Soto MD FYI 04/17/2025 9:20 AM EDT Office Visit [facility] [address] [place] [address] Leta Forte MD Essential hypertension (Primary Dx); Erectile dysfunction, unspecified erectile dysfunction type 04/17/2025 Travel 04/16/[address] [place] [address] Leta Soto MD 04/14/[address] [place] [address] Leta Soto MD [employer]ACHINE [employer]PER[employer] Services (I called the patient at [phone], regarding his request for [employer]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 I then called [phone], and he stated that he needs assistance with transferring and walking, because he has swelling in his legs, and falls frequently. He also needs assistance with getting to appointments. I informed him that a scheduling representative from [facility] would be in contact with him, to schedule an evaluation. He is currently living at the [facility],) 04/13/2025 Results Follow-Up [address] Cervical Spine w/o Contrast 04/11/2025 Orders Only GENERIC EXTERNAL DATA DEPARTMENT Provider, Generic External Data 03/30/2025 Orders Only GENERIC EXTERNAL DATA DEPARTMENT Provider, Generic External Data 03/26/[address] [address] Sadia Denny RN Medication Compliance; Referral 03/24/2025 Orders Only GENERIC EXTERNAL DATA DEPARTMENT Provider, Generic External Data 03/24/[address] [phone] Leta Soto MD 03/23/2025 Results Follow-Up [address] Head w/o Contrast, Ammonia, Plasma, Urinalysis, Complete, with Reflex to Culture, Additional followed-up results: 9 03/21/2025 Orders Only GENERIC EXTERNAL DATA DEPARTMENT Provider, Generic External Data 03/18/2025 Refill [facility] [place], [place] [address] Leta Soto MD 03/17/2025 Results Follow-Up [facility] [place], [place] [address] Leta Soto MD XR Chest 2 Views 03/17/2025 Telephone [facility] [place] [address] Yamel Khanna, RN Care Coordination 03/17/2025 Patient Outreach [facility] [place] [address] Leta Soto MD 03/16/2025 Orders Only [facility] [place], [place] [address] Leta Soto MD 03/16/2025 Telephone [facility] [place] [address] Leta Soto MD Image order 03/12/2025 10:00 AM EDT Office Visit [facility] [place] [address] Leta Soto MD Hypertension, unspecified type (Primary [...] use; Syncope, unspecified syncope type 03/12/2025 Telephone [facility] [place], [place] [address] Leta Soto MD Prior Authorization 03/12/2025 Travel 03/11/2025 Telephone [facility] [place] [address] Leta Soto MD Chart Prep from Last [...] Pulse 90 06/09/2025 10:23 AM EDT Temperature 36.5 C (97.7 F) 05/30/2025 10:40 AM EDT Respiratory Rate 18 05/30/2025 10:40 AM EDT Oxygen Saturation 99% 05/30/2025 10:40 AM EDT Inhaled Oxygen Concentration - - Weight 100 kg (221 lb) 05/30/2025 10:40 AM EDT Height 180.3 cm (5' 11 ) 04/17/2025 9:16 AM EDT Body Mass Index 30.82 04/17/2025 9:16 AM EDT Plan of Treatment Health Maintenance Due Date Last Done Comments CT Colonography 1960 Colonoscopy 1960 Colorectal Cancer Screening 1960 FIT DNA/Cologuard 1960 FIT 1960 FOBT 1960 Sigmoidoscopy 1960 Hepatitis A Vaccines (1 of 2 [...] Screening 03/12/2026 03/12/2025 Tobacco Screening 04/17/2026 04/17/2025 Disability Screening 06/09/2026 06/09/2025 Lipid Panel 04/06/2028 04/06/2023 DTaP/Tdap/Td Vaccines (2 [...] SLIDE REVIEW Routine 06/09/2025 12:43 PM EDT CBC WITH AUTO DIFFERENTIAL Routine 06/09/2025 12:43 PM EDT SARS COV2/INFLUENZA A/B AND RSV RNA QL NAAT Routine 06/09/2025 12:43 PM EDT POCT GLUCOSE Routine 06/09/2025 11:04 AM EDT Dizziness AMMONIA (P) Routine 06/04/2025 4:07 PM EDT [...] Recently Relevant to Health Maintenance Results * Urinalysis w/reflex microscopic (06/09/2025 1:17 PM EDT) Only the most recent of3 resultswithin the time period is included. Color Urine Yellow [facility] Appearance Urine Clear [facility] PH 7.5 5.0 - 9.0 [facility] Glucose Urine UA Negative Negative mg/dL [facility] Urine Blood Negative Negative [facility] Specific [place] - Urine 1.015 1.005 - 1.025 [facility] Urine Protein Negative Neg-Trace mg/dL [facility] Urine Ketones Negative Negative mg/dL [facility] Nitrite Urine Negative Negative [facility] Leukocyte Esterase Urine Negative Negative [facility] 06/09/2025 1:17 PM EDT 06/09/2025 1:27 PM EDT Narrative [facility] - 06/09/2025 1:32 PM EDT [id number], Clean Catch us Generic External Data Provider LAB URINE ORDERAB LES Final Result Performing Organization Address City/[facility]/ZIP Co de Phone Number [facility] [address] [place] [phone] * Slide Review (06/09/2025 12:43 PM EDT) Only the most recent of5 resultswithin the time period is included. Slide Review VERIFIED [facility] 06/09/2025 12:4 3 PM EDT 06/09/2025 12:46 PM EDT Generic External Data Provider LAB BLOOD ORDERAB LES Final Result Performing Organization Address City/[facility]/ZIP Co de Phone Number [facility] [address] [place] [phone] * SARS-CoV-2 RNA, Influenza A/B, and RSV RNA, Ql NAAT (06/09/2025 12:43 PM EDT) Influenza A PCR NEGATIVE Negative [facility] Influenza B PCR NEGATIVE Negative [facility] Resp Syncy Virus RNA Qual PCR NEGATIVE Negative [facility] SARS COV2 PCR NEGATIVE Negative [facility] Comment:All test results mus t [...] use by authorized laboratories.Testing performed on the [employer] GeneXpert utilizingreal-time RT-PCR.All SARS CoV2 and positive influenza A/B results arereported to [facility]. 06/09/2025 12:4 3 PM EDT 06/09/2025 12:46 PM EDT us Generic External Data Provider LAB MICROBIOLOGY - GENERAL ORDERABLES Final Result [facility] [address] [place] [phone] * (ABNORMAL) CBC auto differential (06/09/2025 12:43 PM EDT) Only the most recent of7 resultswithin the time period is included. White Blood Count 1.8(L) 4.8 - 10.8 X10*3/uL [facility] Red Blood Count 3.74(L) 4.60 - 5.80 X10*6/uL [facility] Hemoglobin 9.3(L) 14.0 - 18.0 g/dl [facility] Hematocrit 29.4(L) 42.0 - 52.0 % [facility] Mean Corpuscular Volume 78.6(L) 80.0 - 98.0 fL [facility] Mean Corpuscular Hemoglobin 24.9(L) 27.0 - 33.0 pg [facility] Mean Corpuscular HGB Conc 31.6 31.0 - 36.0 g/dl [facility] Red Cell Distribution Width 14.5 11.0 - 16.0 % [facility] Platelet Count 27(L) 160 - 400 X10*3/uL [facility] Neutrophils Percent Auto 50.6 45 - 73 % [facility] Imm Gran Pct Auto 0.0 0.0 - 0.4 % [facility] Lymphocytes Percent Auto 37.5 20 - 40 % [facility] Monocytes Percent Auto 8.7 2 - 11 % [facility] Eosinophils Percent Auto 2.7 0 - 4 % [facility] Basophils Percent Auto 0.5 0 - 2 % [facility] NRBC Pct Auto 0.0 0.0 - 0.2 /100WBC [facility] Neutrophils Absolute Auto 0.9(L) 2.0 - 8.3 x10*3/uL [facility] Imm Gran Abs Auto 0.00 0.00 - 0.03 X10*3/uL [facility] Lymphocytes Absolute Auto 0.7(L) 1.2 - 4.9 X10*3/uL [facility] Monocytes Absolute Auto 0.2 0.1 - 1.2 X10*3/uL [facility] Eosinophils Absolute Auto 0.1 0.0 - 0.4 X10*3/uL [facility] Basophils Absolute Auto 0.0 0.0 - 0.2 X10*3/uL [facility] NRBC Abs Auto 0.000 0.0 - 0.012 X10*3/uL [facility] 06/09/2025 12:4 3 PM EDT 06/09/2025 12:46 PM EDT us Generic External Data Provider LAB BLOOD ORDERAB LES Edited Result - Final [facility] [address] [place] [phone] [phone] * POCT Glucose (06/09/2025 11:04 AM EDT) [facility] Glucose Blood, POC 107 60 - 200 mg/dL QC Media Lot # [id number] Lot# Expiration Date [id number] Blood Capillary blood specimen / Unknown 06/09/2025 11:04 AM EDT us Leta Dick MD POINT OF CARE ANCELMO T ENTER/EDIT ORDERABLES Final Result * (ABNORMAL) Ammonia, Plasma (06/04/2025 4:07 PM EDT) Only the most recent of5 resultswithin the time period is included. Ammonia (P) 64(H) 13 - 55 umol/L [facility] 06/04/2025 4:07 PM EDT 06/04/2025 4:10 PM EDT us Generic External Data Provider LAB BLOOD ORDERAB LES Final Result [facility] [address] [place] [phone] * Drug Monitoring, Panel 1, Screen, Urine (06/04/2025 3:34 PM EDT) Pathologist [facility] Opiate Screen Urine Not Detected Not Detect [facility] Comment:Opiate cut-off is 30 0 ng/mL.Positive results are unconfirmed and should not be used fornon-medical purposes. Barbiturates, Urine Not Detected Not Detect [facility] Comment:Barbiturate cut-off is 200 ng/mL.Positive results are unconfirmed and should not be used fornon-medical purposes. Phencyclidine Screen Urine Not Detected Not Detect [facility] Comment:Phencyclidine cut-of f is 25 ng/mL.Positive results are unconfirmed and should not be used fornon-medical purposes. Amphetamine Screen Urine Not Detected Not Detect [facility] Comment:Amphetamine cut-off is 1000 ng/mL.Positive results are unconfirmed and should not be used fornon-medical purposes. Benzodiazepines Screen Urine Not Detected Not Detect [facility] Comment:Benzodiazepine cut-o ff is 200 ng/mL.Positive results are unconfirmed and should not be used fornon-medical purposes. Cocaine Screen Urine Not Detected Not Detect [facility] Comment:Cocaine cut-off is 3 00 ng/mL.Positive results are unconfirmed and should not be used fornon-medical purposes. Cannabinoid Screen Urine Not Detected Not Detect [facility] Comment:Cannabinoid cut-off is 50 ng/mL.Positive results are unconfirmed and should not be used fornon-medical purposes. Methadone Screen, Urine Not Detected Not Detect ng/mL [facility] Comment:Methadone cut-off is 300 ng/mL.Positive results are unconfirmed and should not be used fornon-medical purposes. FENTANYL URINE Not Detected Not Detect [facility] Comment:Fentanyl cut-off is 1 ng/mL.Positive results are unconfirmed and should not be used fornon-medical purposes. Oxycodone Urine Screen Not Detected Not Detect ng/mL [facility] Comment:Oxycodone cut-off is 100 ng/mL.Positive results are unconfirmed and should not be used fornon-medical purposes. Buprenorphine Screen Not Detected Not Detect ng/mL [facility] Comment:Buprenorphine cut-of f is 5 ng/mL.Positive results are unconfirmed and should not be used fornon-medical purposes. 06/04/2025 3:34 PM EDT 06/04/2025 3:36 PM EDT Generic External Data Provider LAB URINE ORDERAB LES Final Result [facility] [address] [place] [phone] * Lipase (06/04/2025 2:25 PM EDT) Only the most recent of2 resultswithin the time period is included. Lipase 20 8 - 78 U/L [facility] 06/04/2025 2:25 PM EDT 06/04/2025 2:29 PM EDT Generic External Data Provider LAB BLOOD ORDERAB LES Final Result Performing Organization Address City/[facility]/ZIP Co de Phone Number [facility] [address] [place] [phone] [phone] * Hepatic Function Panel (06/04/2025 2:25 PM EDT) Bilirubin, Direct 0.5 0.0 - 0.5 mg/dL [facility] 06/04/2025 2:25 PM EDT 06/04/2025 2:29 PM EDT us Generic External Data Provider LAB BLOOD ORDERAB LES Final Result Performing Organization Address [facility] Co de Phone Number [facility] [address] [place] [address] [phone] * (ABNORMAL) Comprehensive Metabolic Panel (06/04/2025 2:25 PM EDT) Only the most recent of5 resultswithin the time period is included. Pathologist [facility] Sodium 143 135 - 145 mmol/L [facility] Potassium 4.6 3.3 - 5.1 mmol/L [facility] Chloride 115(H) 96 - 108 mmol/L [facility] Carbon Dioxide 26 22 - 29 mmol/L [facility] Anion Gap 7(L) 12 - 20 [facility] Urea Nitrogen (BUN) 11 9 - 16 mg/dL [facility] Creatinine, Serum 0.76 0.5 - 1.4 mg/dL [facility] Creatinine Clr Calc Pharmacy 102.7 [facility] Comment:eGFR (calculated fro m the MDRD study equation) and eCrCl(calculated from the Cockcroft-Gault equation) are based ondifferent parameters and may not yield comparable results.If eCrCl result is absurd, please check patient'sheight/weight. Estimated Glomerular Filt Rate >60 [facility] Comment:Chronic Kidney Disea se: Estimated GFR < 60 mL/min/1.02v6Hjjcir Kidney Disease: Estimated GFR < 15 mL/min/1.73m2 Glucose 66 60 - 115 mg/dL [facility] Calcium 8.4 8.4 - 10.2 mg/dL [facility] Bilirubin, Total 1.3(H) 0.0 - 1.0 mg/dL [facility] Aspartate Amino Transferase 32 5 - 37 U/L [facility] Alanine Aminotransferase 21 0 - 40 U/L [facility] Total Protein 6.1(L) 6.5 - 8.0 g/dL [facility] Albumin Level 2.9(L) 3.5 - 5.0 g/dL [facility] Alkaline Phosphatase 122(H) 39 - 117 U/L [facility] 06/04/2025 2:25 PM EDT 06/04/2025 2:29 PM EDT us Generic External Data Provider LAB BLOOD ORDERAB LES Final Result Performing Organization Address City/State/[facility] de Phone Number [facility] [address] [place] [address] [phone] * CT Head w/o Contrast (05/22/2025 3:27 PM EDT) Only the most recent of3 resultswithin the time period is included. Anatomical Region Laterality Modality Head, Neck Computed Tomogra phy 05/22/2025 3:27 PM EDT Narrative 05/22/2025 3:54 PM EDT [address] [address] [address] Scan Report Signed Patient: Adelso Beebe MR#: [id number] : 1960 Acct:[id number] Age/Sex: 64 / M ADM Date: 05/22/25 Loc: HO.ED Attending Dr: Ordering Physician: Jorge Wang MD Date of Service: 05/22/25 Procedure(s): CT head/brain wo IV con Accession Number(s): [id number] cc: Jorge Wang MD; Leta Soto MD Report Number: [id number]: Total DLP = 682.00 mGy-cm Reason for [...] 05/22/25 1551 DD/ 1527 TD/TT: 05/22/25 1541 Die Sizer: Procedure Note Donotuseinterpreter, Image - 05/22/[address] [address] [address] Scan Report Signed Patient: Adelso BeebeMR#: [id number] : 1960cct:[id number] Age/Sex: 64 / MADM Date: 05/22/25 Loc: HO.ED Attending Dr: Ordering Physician: Jorge Wang MD Date of Service: 05/22/25 Procedure(s): CT head/brain wo IV con Accession Number(s): [id number] cc: Jorge Wang MD; Leta Soto MD Report Number: [id number]: Total DLP = 682.00 mGy-cm Reason for [...] 05/22/25 1551 DD/ 1527 TD/TT: 05/22/25 1541 Die Sizer: [facility] External Provider IMG CT PROCEDURES Final Result * High Sensitivity Troponin I (05/22/2025 2:41 PM EDT) Only the most recent of3 resultswithin the time period is included. TROPONIN I HIGH SENSITIVITY 34.9 <3.5 - 35.0 ng/L [facility] Comment:The Clifford high sens itivity Troponin-I results should beused in conjunction with other diagnostic information suchas ECG, clinical observations and information, and patientsymptoms to aid in the diagnosis of MO. 05/22/2025 2:41 PM EDT 05/22/2025 2:45 PM EDT us Generic External Data Provider LAB BLOOD ORDERAB LES Final Result Performing Organization Address [facility] Co de Phone Number [facility] [address] [place] [phone] * Ethanol (05/22/2025 2:41 PM EDT) Only the most recent of4 resultswithin the time period is included. ETHANOL (MG/DL) IN SER/PLAS <10 mg/dL [facility] Comment:Serum/plasma ethanol results are to be used formedical/treatment purposes only. 05/22/2025 2:41 PM EDT 05/22/2025 2:45 PM EDT us Generic External Data Provider LAB BLOOD ORDERAB LES Final Result Performing Organization Address [facility] de Phone Number [facility] [address] [place] [phone] * XR Chest 1 View (05/22/2025 2:22 PM EDT) Only the most recent of2 resultswithin the time period is included. Anatomical Region Laterality Modality Chest Radiographic Susy ging 05/22/2025 2:22 PM EDT Narrative 05/22/2025 2:39 PM EDT [address] [address] XRay Report Signed Patient: Adelso Beebe MR#: [id number] : 1960 Acct:[id number] Age/Sex: 64 / M ADM Date: 05/22/25 Loc: .ED Attending Dr: Ordering Physician: Jorge Wang MD Date of Service: 05/22/25 Procedure(s): XR chest 1V Accession Number(s): [id number] cc: Jorge Wang MD; Leta Soto MD [...] 05/22/25 1436 DD/ 142 TD/TT: 05/22/25 143 Die Sizer: Procedure Note Donotuseinterpreter, Image - 05/22/2025 [place] [address] XRay Report Signed Patient: Yolanda Beebe#: [id number] : 1960cct:[id number] Age/Sex: 64 / MADM Date: 05/22/25 Loc: .ED Attending Dr: Ordering Physician: Jorge Wang MD Date of Service: 05/22/25 Procedure(s): XR chest 1V Accession Number(s): [id number] cc: Jorge Wang MD; Leta Soto MD [...] by Juliet Strong MD in OV> 05/22/25 143 DD/ 21 TD/TT: 05/22/251431 Die Sizer: [facility] External Provider IMG XR PROCEDURES Final Result * Hematoxylin and Eosin Stain (05/21/2025 2:15 PM EDT) 05/21/2025 2:15 PM EDT 05/21/2025 2:50 PM EDT Narrative [facility] - 05/25/2025 5:25 PM EDT ----- ------- Name: Adelso Beebe Age/Sex: 64/M : 1960 Unit#: [id number] Attend Dr: Yajaira Antonio MD Re05/21/25 Status: [facility] Location: [facility] Disch: ----- ------- SPEC : [id number] RECD: 05/21/25-145 STATUS: OUMOU FONSECA NUM: [id number] CASSI: 05/21/25-141 [facility] DR: Yajaira Antonio MD ENTERED: 05/21/25-4433 SP TYPE: Surgical OTHR DR: Leta Soto [...] microscopic examination, 6 pieces in cassette A. ([facility]) Special studies ordered and performed: Immunostain for H. pylori; AB/PAS stains IHC S/NG Disclaimer NOTE: Unless otherwise stated, all tissue is formalin-fixed and paraffin-embedded. Some or all of the immunohistochemical tests reported herein may have been developed and their performance characteristics determined by [facility]. They have not been cleared or approved by the U.S. Food and Drug Administration (FDA). However, the FDA has determined that such clearance or approval is not necessary. This laboratory is certified under the Clinical Laboratory Improvement Amendments of 1988 (CLIA) as qualified to perform high complexity clinical laboratory testing. Copies To: Leta Soto MD [address] [place] [id number] CONTINUED ON NEXT PAGE ----- ------- Name: Adelso Beebe Age/Sex: 64/M : 1960 [id number] Unit#: [id number] Attend Dr: Yajaira Antonio MD Re05/21/25 Status: [facility] Location: [facility] Disch: ----- ------- SPEC : [id number] RECD: 05/21/251450 STATUS: OUMOU FONSECA NUM: [id number] CASSI: 05/21/[address]: Yajaira Antonio MD ENTERED: 05/21/25-150 SP TYPE: Surgical OTHR DR: Leta Soto MD ORDERED: HE Stain/3, Gross Micro L4, IHC, Special st. 2, H. pylori, AB/PAS Copies To: (Continued) Yajaira Antonio MD [facility] [address] [place] [address] [phone] [email or web address] ----- ------- Signed (signature on file) Raul Blunt MD 05/25/25 1116 ----- ------- END OF REPORT us Generic External Data Provider LAB BLOOD ORDERAB LES Final Result [facility] [address] [place] [address] [phone] * Pheresis Platelets (05/20/2025 10:46 AM EDT) Pheresis Platelets [id number] AP PHPLT TRANSFUSED 05/21/25 1333 [id number] AP PHPLT TRANSFUSED 05/21/25 1223 [facility] 05/20/2025 10:4 6 AM EDT 05/20/2025 11:19 AM EDT us Generic External Data Provider LAB BLOOD BANK TE ST ORDERABLES Final Result [facility] [address] [place] [address] [phone] * Type and screen (05/20/2025 10:46 AM EDT) Only the most recent of2 resultswithin the time period is included. Pathologist Maddi Blood Type ON [facility] Antibody Screen NEGATIVE [facility] 05/20/2025 10:4 6 AM EDT 05/20/2025 11:19 AM EDT Narrative [facility] - 05/26/2025 11:30 AM EDT WITNESSED BY SARAH.NURSING:Call Blood Bank (ext. [phone]) to band patient on admission.Type and Screen [...] External Data Provider LAB BLOOD BANK TE ORDERABLES Final Result [facility] [address] [place] [address] [phone] * Urinalysis, Complete, with Reflex to Culture (05/15/2025 2:19 PM EDT) Only the most recent of2 resultswithin the time period is included. Color Urine Yellow [facility] Appearance Urine Clear [facility] PH 8.0 5.0 - 9.0 [facility] Glucose Urine UA Negative Negative mg/dL [facility] Urine Blood Negative Negative [facility] Specific [place] - Urine 1.010 1.005 - 1.025 [facility] Urine Protein Negative Neg-Trace mg/dL [facility] Urine Ketones Negative Negative mg/dL [facility] Nitrite Urine Negative Negative [facility] Leukocyte Esterase Urine Negative Negative [facility] RBC Urine 0-2 0 - 2 /HPF [facility] Urine WBC 0-5 0 - 5 /HPF [facility] Urine Squamous Epithelial Cell 0-2 0 - 2 /HPF [facility] Urine Bacteria None Seen None Seen [facility] Hyaline Casts, Urine 0-2 0 - 2 /LPF [facility] 05/15/2025 2:19 PM EDT 05/15/2025 2:33 PM EDT Narrative [facility] - 05/15/2025 2:44 PM EDT Urine, Clean Catch us Generic External Data Provider LAB URINE ORDERAB LES Final Result Performing Organization Address City/[facility] Co de Phone Number [facility] [address] [place] [address] [phone] * (ABNORMAL) B Type Natriuretic Peptide (BNP) (05/15/2025 2:19 PM EDT) Pathologist [facility] B Type Natriuretic Peptide 178(H) <100 pg/mL [facility] 05/15/2025 2:19 PM EDT 05/15/2025 2:33 PM EDT us Generic External Data Provider LAB BLOOD ORDERAB LES Final Result Performing Organization Address [facility] de Phone Number [facility] [address] [place] [address] [phone] * (ABNORMAL) Prothrombin Time-INR (05/15/2025 11:23 AM EDT) Only the most recent of2 resultswithin the time period is included. [facility] Prothrombin Time 16.1(H) 10.9 - 12.4 SEC [facility] INTERNATIONAL NORM RATIO 1.4(H) 0.9 - 1.1 [facility] Comment:INTERNATIONAL NORMAL IZED RATIO (INR) [...] Provider LAB BLOOD ORDERAB LES Final Result [facility] [address] [place] [address] [phone] * Syphilis Screen (04/21/2025 10:43 AM EDT) [facility] Syphilis Screen Nonreactive Nonreactive [facility] 04/21/2025 10:4 3 AM EDT 04/21/2025 1:18 PM EDT us Leta Dick MD LAB BLOOD ORDERAB LES Final Result Performing Organization Address [facility] Co de Phone Number [facility] [address] [place] [address] [phone] * Hepatitis C Viral RNA, Quantitative, Real-Time PCR (04/21/2025 10:43 AM EDT) [facility] Hepatitis C Viral Load <15 NOT DETECTED NOT DETECTED IU/mL [facility] HCV Log PCR <1.18 NOT DETECTED NOT DETECTED Log IU/mL [facility] Comment:For additional infor mation, please refer [email or web address](This link is being provided for informational/educational purposes only.)THIS TEST WAS PERFORMED AT:[id number] [place] [id number] STRICKLAND MD 04/21/2025 10:4 3 AM EDT 04/22/2025 8:54 AM EDT us Leta Dick MD LAB BLOOD ORDERAB LES Final Result Performing Organization Address City/[facility] Co de Phone Number [facility] [address] [place] [address] [phone] * (ABNORMAL) Hepatitis C Antibody with Reflex to HCV, RNA, Quantitative, Real- Time PCR (04/21/2025 10:43 AM EDT) [facility] Hepatitis C Antibody Reactive( A) Nonreactive [facility] Comment:Presumptive evidence of antibodies to HCV. 04/21/2025 10:4 3 AM EDT 04/21/2025 1:18 PM EDT Leta Dick MD LAB BLOOD ORDERAB LES Final Result Performing Organization Address [facility]/ZIP Co de Phone Number [facility] [address] [place] [address] [phone] * HIV-1 RNA, Quantitative, Real-Time PCR (04/21/2025 10:43 AM EDT) Pathologist [facility] HIV RNA PCR Qn Copies NOT DETECTED NOT DETECTED copies/mL [facility] HIV RNA PCR Qn Log Copies NOT DETECTED NOT DETECTED [facility] Comment:Result Units: Log co pies/mLThis test was performed using Real-Time Polymerase ChainReaction.Reportable Range: 20 copies/mL to 10,000,000 copies/mL(1.30 log copies/mL to 7.00 log copies/mL).THIS TEST WAS PERFORMED AT:[facility] [place] [id number] STRICKLAND MD 04/21/2025 10:4 3 AM EDT 04/21/2025 1:18 PM EDT Leta Dick MD LAB BLOOD ORDERAB LES Final Result Performing Organization Address [facility] Co de Phone Number [facility] [address] [place] [address] [phone] * RPR (Monitor) with Reflex to??Titer (04/21/2025 10:43 AM EDT) RPR (Monitor) w/Refl Titer NON-REACTI VE NON-REACT [facility] Comment:THIS TEST WAS PERFOR MED AT:[facility] [place] [phone] STRICKLAND MD Rapid Plasma Reagin Ab Titer TNP [facility] 04/21/2025 10:4 3 AM EDT 04/21/2025 1:18 PM EDT Leta Dick MD LAB BLOOD ORDERAB LES Final Result [facility] [address] [place] [address] [phone] * Chlamydia/Gonorrhea Throat Swab ([place] DPH) (04/21/2025) Chlamydia Throat Swab Negative Gonorrhea Throat Swab Negative Swab 04/21/2025 Result [facility] Historical Provider LAB MICROBIOLOGY - GENERA L ORDERABLES Final Result * Chlamydia/Gonorrhea, Urine ([place] DPH) (04/21/2025) Chlamydia, Urine Negative Negative, Indeterminate, None Detected, Invalid, Specimen unsatisfactory for evaluation, Weakly Positive, 2+ Gonorrhea, Urine Negative Negative, Indeterminate, None Detected, Invalid, Specimen unsatisfactory for evaluation, Weakly Positive, 2+ Urine 04/21/2025 Result [facility] Historical Provider LAB URINE ORDERABLES Robyn l Result * CT Cervical Spine w/o Contrast (04/12/2025 12:26 AM EDT) Anatomical Region Laterality Modality Spine, C-spine Computed Tomogra phy 04/12/2025 12:2 6 AM EDT Narrative 04/12/2025 12:28 AM EDT [address] [address] [address] Scan Report Signed Patient: Adelso Beebe MR#: [id number] : 1960 Acct:[id number] Age/Sex: 64 / M ADM Date: 04/11/25 Loc: .ED Attending Dr: Ordering Physician: Cash Reno MD Date of Service: 04/11/25 Procedure(s): CT cervical spine wo IV con Accession Number(s): [id number] cc: Cash Reno MD; [facility] Report Number: [id number]: Total DLP = 462.38 mGy-cm CLINICAL HISTORY: [...] MD in OV> 04/12/2526 DD/ TD/TT: 04/12/2525 Die Sizer: Procedure Note Donotuseinterpreter, Image - 04/12/[address] [place] [address] [address] Scan Report Signed Patient: Adelso BeebeMR#: [id number] : 1960cct:[id number] Age/Sex: 64 / MADM Date: 04/11/25 Loc: HO.ED Attending Dr: Ordering Physician: Cash Reno MD Date of Service: 04/11/25 Procedure(s): CT cervical spine wo IV con Accession Number(s): [id number] cc: Cash Reno MD; [facility] Report Number: [id number]: Total DLP = 462.38 mGy-cm CLINICAL HISTORY: [...] MD in OV> 04/12/2526 DD/ TD/TT: 04/12/2525 Die Sizer: [facility] External Provider IMG CT PROCEDURES Final Result * Magnesium (04/11/2025 11:22 PM EDT) Only the most recent of3 resultswithin the time period is included. Magnesium 2.0 1.6 - 2.6 mg/dL [facility] 04/11/2025 11:2 2 PM EDT 04/11/2025 11:26 PM EDT Generic External Data Provider LAB BLOOD ORDERAB LES Final Result [facility] [address] [place] [phone] * XR Knee 1-2 Views Right (03/30/2025 3:18 PM EDT) Anatomical Region Laterality Modality Lower Extremities, Knee Right Radiogra phic Imaging 03/30/2025 3:18 PM EDT Narrative 03/30/2025 4:30 PM EDT [address] [address] XRay Report Signed Patient: Adelso Beebe MR#: [id number] : 1960 Acct:[id number] Age/Sex: 64 / M ADM Date: 03/30/25 Loc: HO.ED Attending Dr: Ordering Physician: Jorge Wang MD Date of Service: 03/30/25 Procedure(s): XR knee RT 2V Accession Number(s): [id number] cc: Jorge Wang MD; Leta Soto MD [...] 03/30/25 1626 DD/ 1518 TD/TT: 03/30/25 1618 Die Sizer: Procedure Note Donotuseinterpreter, Image - 03/30/[address] [address] XRay Report Signed Patient: Adelso BeebeMR#: [id number] : 1960cct:[id number] Age/Sex: 64 / MADM Date: 03/30/25 Loc: .ED Attending Dr: Ordering Physician: Jorge Wang MD Date of Service: 03/30/25 Procedure(s): XR knee RT 2V Accession Number(s): [id number] cc: Jorge Wang MD; Leta Soto MD [...] 03/30/25 1626 DD/ 1518 TD/TT: 03/30/25 1618 Die Sizer: [facility] External Provider IMG XR PROCEDURES Final Result * XR Hip right with Pelvis 1 view (03/30/2025 3:17 PM EDT) Anatomical Region Laterality Modality Lower Extremities, Hip Bilateral Radiograp hic Imaging 03/30/2025 3:17 PM EDT Narrative 03/30/2025 4:30 PM EDT [address] [address] XRay Report Signed Patient: Adelso Beebe MR#: [id number] : 1960 Acct:[id number] Age/Sex: 64 / M ADM Date: 03/30/25 Loc: HO.ED Attending Dr: Ordering Physician: Jorge Wang MD Date of Service: 03/30/25 Procedure(s): XR hip RT w PEL1V Accession Number(s): [id number] cc: Jorge Wang MD; Leta Soto MD [...] OV> 03/30/25 1628 DD/ 1517 TD/TT: 03/30/25 161 Die Sizer: Procedure Note Donotuseinterpreter, Image - 03/30/[address] [address] XRay Report Signed Patient: Adelso BeebeMR#: [id number] : 1960cct:[id number] Age/Sex: 64 / MADM Date: 03/30/25 Loc: HO.ED Attending Dr: Ordering Physician: Jorge Wang MD Date of Service: 03/30/25 Procedure(s): XR hip RT w PEL1V Accession Number(s): [id number] cc: Jorge Wang MD; Leta Soto MD [...] 03/30/25 1628 DD/ 1517 TD/TT: 03/30/25 1618 Die Sizer: us [facility] External Provider IMG XR PROCEDURES Final Result * US Abdomen Limited (03/26/2025 10:11 AM EDT) Anatomical Region Laterality Modality Abdomen Ultrasound 03/26/2025 10:1 1 AM EDT Narrative 03/26/2025 11:08 AM EDT [address] [address] Ultrasound Report Signed Patient: Adelso Beebe MR#: [id number] : 1960 Acct:[id number] Age/Sex: 64 / M ADM Date: 03/24/25 Loc: HO.C 450-[address]: Getachew Vega MD Ordering Physician: Getachew Vega MD Date of Service: 03/26/25 Procedure(s): US abdomen limited Accession Number(s): [id number] cc: Getachew Vega MD; Leta Soto MD [...] 03/26/25 1105 DD/ 1011 TD/TT: 03/26/25 1028 Die Sizer: Procedure Note Donotuseinterpreter, Image - 03/26/[address] [address] Ultrasound Report Signed Patient: Adelso BeebeMR#: [id number] : 2Acct:[id number] Age/Sex: 64 / MADM Date: 03/24/25 Loc: [facility] 450-[address]: Getachew Vega MD Ordering Physician: Getachew Vega MD Date of Service: 03/26/25 Procedure(s): US abdomen limited Accession Number(s): [id number] cc: Getachew Vega MD; Leta Soto MD [...] 03/26/25 1105 DD/ 1011 TD/TT: 03/26/25 1028 Die Sizer: us [facility] External Provider IMG US PROCEDURES Edited Result - Final * MR Brain w/o Contrast (03/24/2025 6:18 PM EDT) Anatomical Region Laterality Modality Brain Magnetic Resonan ce 03/24/2025 6:18 PM EDT Narrative 03/24/2025 6:19 PM EDT [address] [address] Magnetic Resonance Report Signed Patient: Adelso Beebe MR#: [id number] : 1960 Acct:[id number] Age/Sex: 64 / M ADM Date: 03/24/25 Loc: HO.ED Attending Dr: Ordering Physician: Edwin Davis MD Date of Service: 03/24/25 Procedure(s): MR head/brain wo con Accession Number(s): [id number] cc: Leta Soto MD; Edwin Davis MD [...] in OV> 03/24/251818 DD/ 17 TD/TT: 03/24/251817 Die Sizer: Procedure Note Donotuseinterpreter, Image - 03/24/2025 [place] [address] Magnetic Resonance Report Signed Patient: Adelso Beebe#: [id number] : 1960cct:[id number] Age/Sex: 64 / MADM Date: 03/24/25 Loc: HO.ED Attending Dr: Ordering Physician: Edwin Davis MD Date of Service: 03/24/25 Procedure(s): MR head/brain wo con Accession Number(s): [id number] cc: Leta Soto MD; Edwin Davis MD [...] in OV> 03/24/251818 DD/ 17 TD/TT: 03/24/251817 Die Sizer: [facility] External Provider IMG MRI PROCEDURES Final Result * (ABNORMAL) VENOUS BLOOD GAS (03/24/2025 2:32 PM EDT) VBG pH 7.54(H) 7.32 - 7.43 [facility] Comment:METER #: [id number] additional_comment: Cb rogalt VBG PCO2 25 mmHg [facility] Comment:METER #: [id number] additional_comment: Cb rogalt VBG PO2 99 mmHg [facility] Comment:METER #: [id number] additional_comment: Cb rogalt VBG Base Excess 0.3 mmol/L [facility] Comment:METER #: [id number] additional_comment: Cb rogalt VBG HCO3 21(L) 22 - 26 mmol/L [facility] Comment:METER #: [id number] additional_comment: Cb rogalt O2 Sat, [place] 100.0 % [facility] Comment:METER #: [id number] additional_comment: Cb rogalt 03/24/2025 2:32 PM EDT 03/24/2025 2:37 PM EDT Generic External Data Provider LAB BLOOD ORDERAB LES Final Result [facility] [address] [place] [phone] * Lactic Acid (03/21/2025 12:11 PM EDT) Lactic Acid 1.6 0.5 - 2.0 mmol/L [facility] 03/21/2025 12:1 1 PM EDT 03/21/2025 12:14 PM EDT us Generic External Data Provider LAB BLOOD ORDERAB LES Final Result Performing Organization Address [facility]/ZIP Co de Phone Number [facility] [address] [place] [phone] * Glucose, Whole Blood (03/21/2025 10:55 AM EDT) Glucose, Whole Blood 83 60 - 115 mg/dL [facility] Comment:METER #: [id number] 03/21/2025 10:5 5 AM EDT 03/23/2025 8:12 AM EDT Generic External Data Provider LAB BLOOD ORDERAB LES Final Result Performing Organization Address [facility] Co de Phone Number [facility] [address] [place] [address] [phone] * XR Chest 2 Views (03/17/2025 8:06 AM EDT) Anatomical Region Laterality Modality Chest Radiographic Susy ging 03/17/2025 8:06 AM EDT Narrative 03/17/2025 9:11 AM EDT [address] [address] XRay Report Signed Patient: Adelso Beebe MR#: [id number] : 1960 Acct:[id number] Age/Sex: 64 / M ADM Date: 03/17/25 Loc: HO.HHCX Attending Dr: Leta Dick MD Ordering Physician: Leta Soto MD Date of Service: 03/17/25 Procedure(s): XR chest 2V Accession Number(s): [id number] cc: Leta Soto MD EXAMINATION: XR CHEST [...] 03/17/25 0909 DD/ 0806 TD/TT: 03/17/25 0858 Die Sizer: Procedure Note Donotuseinterpreter, Image - 03/17/2025 [place] [address] XRay Report Signed Patient: Adelso Beebe#: [id number] : 1960cct:[id number] Age/Sex: 64 / MADM Date: 03/17/25 Loc: HO.HHCX Attending Dr: Leta Dick MD Ordering Physician: Leta Soto MD Date of Service: 03/17/25 Procedure(s): XR chest 2V Accession Number(s): [id number] cc: Leta Soto MD EXAMINATION: XR CHEST [...] Rao Hale MD in OV> 03/17/25908 DD/ 5 TD/TT: 03/17/25 0858 Die Sizer: us Leta Dick MD IMG XR PROCEDURES Edited Result - Final * Lipid Panel, Standard (04/06/2023 10:00 AM EDT) Triglycerides 94 mg/dL [facility] Comment:Desirable Triglyceri de: less than 150 mg/dLBorderline High Triglyceride 150-199 mg/dLHigh Triglyceride: 200-499 mg/dLVery High Triglyceride: greater than or equal to 5OO mg/dL Cholesterol 79 mg/dL [facility] Comment:Desirable Cholestero l: less than 200 mg/dLBorderline High Cholesterol: 200-239 mg/dLHigh Cholesterol: greater than 239 mg/dL LDL Cholesterol Calculated 36 mg/dl [facility] Comment:Desirable LDL: less than 100 mg/dLNear Optimal/Above Optimal LDL: 110- 129 mg/dLBorderline High LDL: 130-159 mg/dLHigh LDL: 160-189 mg/dLVery High LDL: greater than or equal to 190 mg/dL HDL Cholesterol 25 mg/dL [facility] Comment:Desirable HDL: great er than 40 mg/dL Note: This HDL assay may give artificially low results in patients with liver disease. Blood Venous blood specimen / Unknown 04/06/2023 10:00 AM EDT 04/06/2023 11:20 AM EDT us Ann Piña [facility] LAB BLOOD ORDERABLES Final Resul t [facility] [address] [place] [phone] from Last 3 Months or Most Recently Relevant to Health Maintenance Insurance [facility] C3 Care Teams Negative Notcher Relationship Specialty Start Date End Date Leta Soto MD [address] [place] [phone] PCP - General Internal Medicine 04/11/23 Yajaira Antonio [address] [place] [address] [address] [place] [address] Gastroenterology 09/04/24 [facility] 01/28/25
--- NOTE | 2025-06-09 15:06 | PHA.MEDREC ---
Addendum entered by Radha Shaver RPh 06/09/25 15:21: MED REC REVIEWED BY [facility] Original Note: Pharmacy Consult ? Medication Reconciliation Pharmacy has completed the medication reconciliation. Pt poor historian with his medications at this time. Utilized discharge packet from 06/05 to confirm med list.
[2025-06-09 16:00] VITALS: BP 138/50; PULSE 61; RESP 18; TEMP 36.8; O2SAT 100
[2025-06-09] MEDS: 0.9 % Sodium Chloride Flush 3 ML SYRINGE IVFLUSH (16:12)
--- NOTE | 2025-06-09 16:15 | PC.NURSE ---
pt has moments of confusion, pt put in hospital bed with bed alarm activated/fall precautions intact, iv inserted, pt then moved from room 20 to room 18 to have better visual of the patient.
[2025-06-09 19:07] VITALS: BP 171/71; PULSE 72; RESP 20; TEMP 36.6; O2SAT 100
[2025-06-10 04:00] VITALS: BP 103/31; PULSE 73; RESP 16; O2SAT 99
[2025-06-10 05:44] VITALS: BP 117/58; PULSE 68; RESP 18; TEMP 36.4; O2SAT 100
[2025-06-10 05:46] VITALS: BMI 29.8
[2025-06-10 07:45] VITALS: BP 115/58; PULSE 68; RESP 18; TEMP 36.7; O2SAT 100
[2025-06-10] MEDS: 0.9 % Sodium Chloride Flush 3 ML SYRINGE IVFLUSH (08:57)
--- NOTE | 2025-06-10 09:25 | MHC.CM.PN ---
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
[2025-06-10 09:52] LABS: Hematocrit 28.3 % (42.0-52.0); Hemoglobin 9.1 g/dl (14.0-18.0); Mean Corpuscular HGB Conc 32.2 g/dl (31.0-36.0); Mean Corpuscular Hemoglobin 25.3 pg (27.0-33.0); Mean Corpuscular Volume 78.6 fL (80.0-98.0); NRBC Abs Auto 0.000 X10*3/uL (0.0-0.012); NRBC Pct Auto 0.0 /100WBC (0.0-0.2); Red Blood Count 3.60 X10*6/uL (4.60-5.80)
[2025-06-10 09:53] LABS: Platelet Count 27 X10*3/uL (160-400); White Blood Count 1.9 X10*3/uL (4.8-10.8)
[2025-06-10 10:06] LABS: Anion Gap 8 (12-20); Blood Urea Nitrogen 13 mg/dL (9-16); Calcium 8.3 mg/dL (8.4-10.2); Carbon Dioxide 23 mmol/L (22-29); Chloride 115 mmol/L (96-108); Creatinine Clr Calc Pharmacy 110.3; Estimated Glomerular Filt Rate > 60; Magnesium 1.9 mg/dL (1.6-2.6); Potassium 4.7 mmol/L (3.3-5.1); Sodium 141 mmol/L (135-145)
[2025-06-10 11:54] VITALS: BP 133/64; PULSE 70; RESP 16; TEMP 37.1; O2SAT 99
--- NOTE | 2025-06-10 13:17 | PM.DS ---
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 Patient was at primary care office. Noted to be unsteady and sluggish speech so sent to ED. In ED ammonia is approximate baseline around 80. Other labs at baseline as well. Patient is alert oriented x3, is a bit unsteady and does have some slow speech with adequate insight into medical condition but on superficial level and poor understanding of new information. Hospital Course Over the course of the next 24 hours mentation returned to normal and the patient is eager to be discharged pending I surgery in a.m.. 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) Resp: Other: Clear to auscultation bilaterally no rales rhonchi or wheezes Cardio: Other: No S4; positive S1-S2; no S3 murmurs rubs or gallops GI: Other: Soft nontender nondistended normoactive bowel sounds Extrem: Other: No edema bilaterally DS: Data Data Completed and Pending Completed studies during hospitalization [Text1]: Procedures Bypass Portal Vein to Hepatic Vein with Synthetic Substitute, Percutaneous Approach (10/08/24) Transfusion of Nonautologous Platelets into Peripheral Vein, Percutaneous Approach (10/08/24) Labs on day of discharge: Laboratory Results - last 24 hr 06/09/25 06/09/25 06/10/25 12:43 13:17 09:26 WBC 1.9 L RBC 3.60 L Hgb 9.1 L Hct 28.3 L MCV 78.6 L MCH 25.3 L MCHC 32.2 RDW 14.5 Plt Count 27 L MPV TNP Immature Gran % (Auto) 0.0 Neut % (Auto) 50.6 Lymph % (Auto) 37.5 [place] % (Auto) 8.7 Eos % (Auto) 2.7 Baso % (Auto) 0.5 Lymph # (Auto) 0.7 L [place] # (Auto) 0.2 Eos # (Auto) 0.1 Baso # (Auto) 0.0 Abs Immat Gran (auto) 0.00 Absolute Neuts (auto) 0.9 L Absolute Nucleated RBC 0.000 0.000 Nucleated RBC % (auto) 0.0 0.0 Smear Tech's Comments VERIFIED Sodium 141 Potassium 4.7 Chloride 115 H Carbon Dioxide 23 Anion Gap 8 L BUN 13 Creatinine 0.79 Estim Creat Clear Calc 110.3 Estimated GFR > 60 Random Glucose 145 H Calcium 8.3 L Magnesium 1.9 Urine Color Yellow Urine Appearance Clear Urine pH 7.5 Ur Specific [place] 1.015 Urine Protein Negative Urine Glucose (UA) Negative Urine Ketones Negative Urine Blood Negative Urine Nitrite Negative Ur Leukocyte Esterase Negative Influenza Type A (PCR) NEGATIVE Influenza Type B (PCR) NEGATIVE RSV RNA Qual (PCR) NEGATIVE SARS-CoV-2 RNA (RT-PCR) NEGATIVE Discharge Plan Discharge Anticipated Discharge Date/Time: 06/10/25 13:14 Patient Disposition: Home, Self-Care Discharge Diagnosis: Hepatic encephalopathy Referrals: Leta oSto MD [Primary Care Provider, Internal Medicine] - 1 Week Discharge Medications: Continued (DME) walker Misc See Rx Instructions .Route Qty: 1 0RF Rx Instructions: As directed lactulose 10 gram/15 mL solution 40 g PO BID (DME) blood pressure test kit-large [Omron BP Monitor-3 Series] Kit See Rx Instructions .ROUTE DAILY Qty: 1 Rx Instructions: As directed Xifaxan 550 mg tablet 550 mg PO BID 90 Days Qty: 180 0RF amlodipine 5 mg tablet 5 mg PO DAILY Qty: 90 0RF Discharge Orders: Discharge Order (Routine); Ordered 06/10/25 Ordered By: Faraz Sylvester Diet: Advance to usual diet Activity on Discharge: As tolerated Stand Alone Forms: Patient Portal Discharge page Print Language: Russian Care Plan Goals: Continue all medicines as taken prior to hospitalization Health Concerns: Is very important that you take your lactulose as ordered Plan of Treatment: Follow up with PCP next available Assessment: See discharge summary
[2025-06-10 16:00] VITALS: BP 163/70; PULSE 71; RESP 19; TEMP 36.7; O2SAT 100
== END 2025-06-10 15:30 | disposition home or self-care (01) ==
LOC: HO.ED 13:52 → HO.EDOVER 13:58 → HO.S3 06-10 05:14
PROVIDERS: Admitting Provider Internal Medicine; Emergency Provider Emergency Medicine; PCP Student in an Organized Health Care Education/Training Program; Visit Provider Hospitalist
DX: G93.41 Metabolic encephalopathy (principal); K76.82 Hepatic encephalopathy; K74.60 Unspecified cirrhosis of liver; D61.818 Other pancytopenia; R41.0 Disorientation, unspecified; E72.20 Disorder of urea cycle metabolism, unspecified; B19.20 Unspecified viral hepatitis C without hepatic coma; I10 Essential (primary) hypertension; I81 Portal vein thrombosis; Z79.899 Other long term (current) drug therapy
CPT/HCPCS: 36415; 71045; 80048; 80076; 81003; 82140; 83605; 83690; 83735; 84484; 85025; 85027; 85610; 87637; 93005; 97161; 99221; 99285

== ENCOUNTER → 2025-06-09 12:06 | Outpatient (BNV) | payer MEDICAID, SELFPAY | PROVIDERS: Emergency Provider Emergency Medicine; Visit Provider Radiology Diagnostic Radiology | DX: R41.82 Altered mental status, unspecified (principal) | CPT/HCPCS: 71045 ==

== ENCOUNTER → 2025-06-09 12:06 | Outpatient (BNV) | payer MEDICAID, SELFPAY | PROVIDERS: Admitting Provider Internal Medicine; Emergency Provider Emergency Medicine; Visit Provider Internal Medicine | DX: R41.82 Altered mental status, unspecified (principal) | CPT/HCPCS: 93010 ==

== ENCOUNTER → 2025-06-09 13:54 | Outpatient (BNV) | payer MEDICAID, SELFPAY | PROVIDERS: Admitting Provider Internal Medicine; Emergency Provider Emergency Medicine; Visit Provider Internal Medicine | DX: K76.82 Hepatic encephalopathy (principal) | CPT/HCPCS: 99223; 99239 ==

== ENCOUNTER 2025-06-25 10:39 | Emergency (ER) | payer MEDICAID, SELFPAY ==
--- NOTE | ~2025-06-25 | XR_ITS ---
EXAMINATION: XR HUMERUS LEFT HISTORY: mid humeral TTP, COMPARISON: There are no prior studies available for comparison. FINDINGS: AP and lateral views of the left humerus are submitted. Osseous mineralization is normal. There is no fracture or dislocation. The visualized shoulder and elbow joint spaces are preserved. The soft tissues are unremarkable. XR/XR humerus LT IMPRESSION: Unremarkable examination of the left humerus. Electronically signed by: Dieter Morse MD 06/25/2025 11:45 AM EDT
[2025-06-25 10:49] VITALS: BP 147/79; BP 176/72; PULSE 71; PULSE 79; RESP 18; TEMP 36.6; O2SAT 97; O2SAT 99; BMI 35.2
[2025-06-25 10:52] VITALS: BP 176/72; PULSE 71; RESP 18; TEMP 36.6; O2SAT 97
--- NOTE | 2025-06-25 11:02 | ED_ITS ---
HPI - Altered Mental Status General Chief Complaint: Altered Mental Status Stated Complaint: ALTERED ? AB LABS FROM [facility] PER EMS Time Seen by Provider: 06/25/25 10:44 History of Present Illness ED Provider: KAROLINE HPI narrative: Patient well known to the ED and myself with a history of chronic liver failure with tips recurrent visits for suspected or presumed hepatic encephalopathy. Staff felt he was slightly off patient also complaining of left arm pain no fall Related Data Home Medications ?Medication ?Instructions ?Recorded ?Confirmed blood pressure test kit-large #1 ea 05/27/25 (Omron Blood Pressure Monitor-3 Series kit) lactulose 10 gram/15 mL oral 40 g PO BID 06/04/2505/13 solution Previous Rx's ?Medication ?Instructions ?Recorded walker #1 ea 02/08/25 amlodipine 5 mg tablet 5 mg PO DAILY #90 tabs 04/21 rifaximin 550 mg tablet (Xifaxan) 550 mg PO BID 90 day s #180 tabs 05/27/25 Allergies Allergy/AdvReac Type Severity Reaction Status Date / Time dicyclomine (From Bentyl) Allergy Unknown Verified 06/25/25 10:52 aspirin AdvReac Severe stomach Verified 06/25/25 10:52 bleeding NSAIDS (Non-Steroidal AdvReac Severe liver Verified 06/25/25 10:52 Anti-Inflamma concerns PMFSH Past Medical History Medical History Portal vein thrombosis Eye abnormality Cirrhosis of liver Pancytopenia Hyperammonemia Pancytopenia Obesity (BMI 30.0-34.9) Fall Pancytopenia Hepatic encephalopathy Cirrhosis Splenic vein thrombosis Sepsis Cirrhosis of liver with ascites Abdominal pain Thrombocytopenia Pancytopenia Cirrhosis Hepatitis C virus infection Esophageal varices Pancytopenia Iron deficiency anemia Cirrhosis Hepatitis C HBP (high blood pressure) Surgical History S/P TIPS (transjugular intrahepatic portosystemic shunt) H/O left inguinal hernia repair H/O eye surgery History of esophagogastroduodenoscopy (EGD) H/O colonoscopy Family History Family History Maternal Grandmother Breast CA Uterus cancer Mother Primary lung cancer of unknown cell type Social History Social History Household Members: Other Household Members Other:: pt comes from a skilled nursing Housing: Other Housing Other:: skilled nursing Are you a primary intensive care specialist to a significant other at home: No Do you presently have visiting nurse or other home services: No Alcohol intake: former Comment: pt refusing alarm's Patient Tobacco Use Status: Never used Tobacco Tobacco use type: Cigarette Cigarette Packs Per Day: 1 Cigarettes Per Day: 0.5 Years Smoked: 45 e-Cigarette/Vaping Use: Never Used Second Hand Smoke Exposure: No Substance Use Type: Heroin Advance Directives Date on File: 04/02/24 service: No Current occupational status: retired Physical Exam ED Exam Exam: EXAM: Gen: Alert, awake, well appearing, well hydrated. Walking around the ED smiling interacting with staff Head: Atraumatic Eyes: Chronic enucleated right eye no jaundice or icterus ENT: Moist mucosa, no pallor. ? Neck: Supple. Skin: ?No observable rash or bruising on exposed or examined skin Respiratory: Breathing comfortably, No distress.Clear to auscultation bilaterally, symmetric chest expansion, No wheeze, rales, ronchi. Cardiovascular: Regular rate and rhythm. No murmurs or rub. Well perfused periphery, warm extremities. No edema. ? Abdominal: No focal tenderness. Soft, no objective distension. No palpable masses or obvious organomegaly. ?No guarding, no rebound tenderness or other peritoneal findings. : No flank tenderness. Neuro: Alert. Gross movement of all extremities intact. ? Psych: Calm. Cooperative. MSK: No grossly visible deformity. No bruising or gross deformity but complains of tenderness when palpating the upper humeral region. Full range of motion of the shoulder Vital signs: See flowsheet Vital Signs: Vital Signs - 24 hr 06/25/25 10:49 06/25/25 10:52 06/25/25 12:25 Temperature 97.8 F 97.8 F 97.8 F Pulse Rate 71 71 71 Respiratory Rate 18 18 18 Blood Pressure 176/72 H 176/72 H 176/72 H Pulse Oximetry 97 97 97 Oxygen Delivery Method Room Air Room Air Room Air BMI result Body Mass Index 35.2 Medications Administered Discontinued Medications Generic Name Dose Route Start Last Admin Trade Name Freq PRN Reason Stop Dose Admin Lactulose 40 gm 06/25/25 11:13 06/25/25 11:54 Lactulose 20 Gm/30 Ml Solution PO 06/25/25 11:14 40 gm ONCE ONE Administration Rifaximin 550 mg 06/25/25 11:13 06/25/25 11:53 Rifaximin 550 Mg Tablet PO 06/25/25 11:14 550 mg ONCE ONE Administration Medical Decision Making Medical Decision Making MDM Narrative: Medical Decision Making: Staff concern for med noncompliance in the setting of chronic recurrent hepatic encephalopathy. The patient is afebrile with a stable vitals and not clinically encephalopathic. There was concern by medication noncompliance and I read the prior GI notes so I will give him his morning doses of rifaximin and lactulose. Unclear why the patient has pain in the left arm humeral x-ray without fracture certainly no anginal symptoms or objective edema to suggest upper extremity DVT. Well-perfused left upper extremity. Preliminary Favored Differential Diagnosis: Agree current hepatic encephalopathy, medical screening exam, musculoskeletal injury among additional considered etiologies Testing Interpreted Independently: ?See below for details Radiology or Lab testing Results Reviewed: ?See below for details Consults: ?See below for details Independent Historians/External Chart Reviews: ?See below for details Social Determinants of Health Impacting MDM/Planning: ?See below for details Discharge Plan Discharge Clinical Impression: Cirrhosis Patient Disposition: Home, Self-Care Instructions: Chronic Liver Disease (ED) Additional Instructions: Patient was evaluated in the emergency department. He was awake alert talking interactive with staff. He did not appear confused ill or toxic. Certainly not clinically encephalopathic. The patient had recent and chronically mildly elevated ammonia. Low yield of repeat testing at this time given the patient's clinical status. If there is concern for ongoing medication compliance ED is unable to assist with that. I did give morning dose of rifaximin and lactulose. GI follow up as needed. Left humeral x-ray performed due to tenderness of the left humeral region without traumatic injury reported no actionable findings there Prescriptions: No Action (DME) walker Misc See Rx Instructions .Route Qty: 1 0RF Rx Instructions: As directed lactulose 10 gram/15 mL solution 40 g PO BID (DME) blood pressure test kit-large [Omron BP Monitor-3 Series] Kit See Rx Instructions .ROUTE DAILY Qty: 1 Rx Instructions: As directed Xifaxan 550 mg tablet 550 mg PO BID 90 Days Qty: 180 0RF amlodipine 5 mg tablet 5 mg PO DAILY Qty: 90 0RF Interventions: ED Discharge Assessment Last Done: 06/25/25 12:25 Discharge Date/Time: 06/25/25 12:25 Print Language: Croatian
--- NOTE | 2025-06-25 11:23 | MHC.EDTECH ---
per DR Pennington no labs to be drawn
[2025-06-25 12:25] VITALS: BP 176/72; PULSE 71; RESP 18; TEMP 36.6; O2SAT 97
== END 2025-06-25 12:25 | disposition home or self-care (01) ==
PROVIDERS: Emergency Provider Emergency Medicine; PCP Student in an Organized Health Care Education/Training Program
DX: K74.60 Unspecified cirrhosis of liver (principal); K76.82 Hepatic encephalopathy; B19.20 Unspecified viral hepatitis C without hepatic coma; Z79.899 Other long term (current) drug therapy
CPT/HCPCS: 73060; 99283; 99284

== ENCOUNTER → 2025-06-25 11:16 | Outpatient (BNV) | payer MEDICAID, SELFPAY | PROVIDERS: Emergency Provider Emergency Medicine; PCP Student in an Organized Health Care Education/Training Program; Visit Provider Radiology Diagnostic Radiology | DX: M79.602 Pain in left arm (principal) | CPT/HCPCS: 73060 ==

== ENCOUNTER 2025-07-01 22:21 | Emergency (ER) | payer MEDICAID, SELFPAY ==
--- NOTE | 2025-07-01 | ECG_ITS ---
Test Reason : CP Blood Pressure : */* mmHG Vent. Rate : 86 BPM Atrial Rate : 86 BPM P-R Int : 140 ms QRS Dur : 78 ms QT Int : 374 ms P-R-T Axes : 45 17 70 degrees QTcB Int : 447 ms Normal sinus rhythm Normal ECG When compared with ECG of 09-Jun-2025 12:16, T wave amplitude has increased in Anterior leads Referred By: Generic ED Physician Electronically Signed By: POP DAVIES MD
--- NOTE | ~2025-07-01 | CT_ITS ---
CLINICAL HISTORY: stroke CT head without contrast Comparison: CT head 05/22/2025 Findings: No beckman-white dedifferentiation to suggest acute large territory infarct. No acute intracranial hemorrhage. No abnormal extra-axial collection. No midline shift. Basal cisterns are maintained. Normal ventricles. Mucous retention cyst in the left maxillary sinus. Bilateral mastoid air cells and middle ears are clear. Calvarium and visualized facial bones are intact. Right globe prosthesis. Left aphakia. IMPRESSION: No acute intracranial findings. This document has been electronically signed by: Laci Vasquez MD on 07/01/2025 23:15:58
--- NOTE | ~2025-07-01 | XR_ITS ---
CLINICAL HISTORY: cough pain 1 view chest x-ray Comparison: Chest radiograph 06/09/2025, 05/16/2025 Findings: Central vascular congestion. No consolidation, pleural effusion or pneumothorax. Normal cardiomediastinal silhouette. No acute abnormality in the imaged osseous structures. IMPRESSION: Mild volume overload. No pleural effusion. This document has been electronically signed by: Laci Vasquez MD on 07/02/2025 00:22:02
--- NOTE | ~2025-07-01 | CT_ITS ---
CLINICAL HISTORY: acute aphasia CT angiography head and neck with contrast. 3D Postprocessing. Comparison: Same-day noncontrast CT head. Findings: Examination degraded by motion artifact and suboptimal bolus timing. Accounting for this: CT HEAD WO CONTRAST: See recent report. CT ANGIO HEAD W CONTRAST: Right ICA: Intracranial ICA unremarkable. Left ICA: Intracranial ICA unremarkable. MCA: Unremarkable bilaterally. MUSTAPHA: Anatomic variant triplicate MUSTAPHA. Otherwise, unremarkable. Likewise in the shower solving in skin BINGO CALLER: Persistent origin of the right BINGO CALLER. Moderate focal narrowing in the distal right P2 segment (series 8, image 81). Vertebrobasilar system: Left dominant vertebral artery. Early takeoff of the right PICA, with small caliber of the post-PICA right V4 segment. Venous: No evidence of intracranial venous thrombosis. CT ANGIO NECK W CONTRAST: Aortic arch: Conventional three vessel anatomy. No significant stenosis or ectasia. Right carotids: Common carotid artery unremarkable. Carotid bulb unremarkable. Cervical ICA unremarkable. Left carotids: Common carotid artery unremarkable. Carotid bulb unremarkable. Cervical ICA unremarkable. Vertebral arteries: Unremarkable bilaterally. Moderate multilevel spondylosis in the cervical spine. Partially imaged lung apices demonstrating pulmonary edema and biapical scarring. IMPRESSION: No arterial occlusion or high-grade stenosis in the head or neck. No intracranial aneurysm. This document has been electronically signed by: Laci Vasquez MD on 07/02/2025 00:34:05
[2025-07-01 22:44] VITALS: BP 132/57; BP 158/50; PULSE 77; PULSE 88; RESP 20; O2SAT 97; O2SAT 99; BMI 32.8
[2025-07-01] MEDS: iohexoL 350 MG/ML 100 ML INFUS..BTL 75 ML IV (23:19)
[2025-07-01 23:43] LABS: Hematocrit 25.2 % (42.0-52.0); Hemoglobin 7.7 g/dl (14.0-18.0); Mean Corpuscular HGB Conc 30.6 g/dl (31.0-36.0); Mean Corpuscular Hemoglobin 24.4 pg (27.0-33.0); Mean Corpuscular Volume 80.0 fL (80.0-98.0); NRBC Abs Auto 0.000 X10*3/uL (0.0-0.012); NRBC Pct Auto 0.0 /100WBC (0.0-0.2); Red Blood Count 3.15 X10*6/uL (4.60-5.80)
[2025-07-01 23:46] LABS: Troponin-I High Sensitivity 24.2 ng/L (<3.5-35.0)
[2025-07-01 23:47] LABS: Platelet Count 22 X10*3/uL (160-400); White Blood Count 1.4 X10*3/uL (4.8-10.8)
--- OUTSIDE RECORDS SUMMARY | 2025-07-01 23:49 | XMS_ITS | Encounter Summary ---
Author Organization [employer] Address [address] [facility] 7t [place] [address] Care Team Providers Care Executive Chef Name Role Phone Leta Soto MD Primary Care Pro vider Yajaira Antonio Unavailable Encounter Details Date Type Department Care Team (Late st Contact Info) Description 11/11/2024 Telephone [facility] MEDICINE [address] [place] [address] Leta Soto MD [address] [place] [address] Social History Tobacco Use Types Packs/Day Years [...] documented as of this encounter Care Teams Executive Chef Relationship Specialty Start Date End Date Leta Soto MD [address] [place] [phone] PCP - General Internal Medicine 04/11/23 Yajaira Antonio [address]rd [place] [address] Gastroenterology 09/04/24 [facility] 01/28/25 documented as of this encounter
--- OUTSIDE RECORDS SUMMARY | 2025-07-01 23:49 | XMS_ITS | Encounter Summary ---
Author Organization [employer] Address [address] [facility] 7t [place] [address] Care Team Providers Care Project Geologist Name Role Phone Leta Soto MD Primary Care Pro vider Yajaira Antonio Unavailable Encounter Details Date Type Department Care Team (Late st Contact Info) Description 12/17/2023 Orders Only [facility] MED & PEDS [address] [place] [address] Tatyana Mosquera FNP [address] [place] [address] Social History Tobacco Use Types Packs/Day Years [...] documented as of this encounter Care Teams Project Geologist Relationship Specialty Start Date End Date Leta Soto MD [address] [place] [phone] PCP - General Internal Medicine 04/11/23 Yajaira Antonio [address] [place] [address] Drive 3rd [place] [address] Gastroenterology 09/04/[address] [facility] 01/28/25 documented as of this encounter
--- OUTSIDE RECORDS SUMMARY | 2025-07-01 23:49 | XMS_ITS | Encounter Summary ---
Author Organization [employer] Address [address] [facility] 7t [place] [address] Care Team Providers Care Mems Device Scientist Name Role Phone Leta Soto MD Primary Care Pro vider Yajaira Antonio Unavailable Encounter Details Date Type Department Care Team (Late st Contact Info) Description 04/21/2025 Orders Only [facility] MEDICINE [address] [place] [address] Imelda Pfeiffer, CHANDU [address] [place] [address] Healthcare maintenance Social History Tobacco Use Types [...] Real-Time PCR (04/21/2025 10:43 AM EDT) Pathologist [facility] Hepatitis C Viral Load <15 NOT DETECTED NOT DETECTED IU/mL [facility] HCV Log PCR <1.18 NOT DETECTED NOT DETECTED Log IU/mL [facility] Comment:For additional infor mation, please refer tohttp://education.[employer]/faq/KJA62c8(This link is being provided for informational/educational purposes only.)THIS TEST WAS PERFORMED AT:[facility] [place] [id number] STRICKLAND MD 04/21/2025 10:4 3 AM EDT 04/22/2025 8:54 AM EDT us Leta Dick MD LAB BLOOD ORDERAB LES Final Result [facility] [address] [place] [phone] * HIV-1 RNA, Quantitative, Real-Time PCR (04/21/2025 10:43 AM EDT) Pathologist [facility] HIV RNA PCR Qn Copies NOT DETECTED NOT DETECTED copies/mL [facility] HIV RNA PCR Qn Log Copies NOT DETECTED NOT DETECTED [facility] Comment:Result Units: Log co pies/mLThis test was performed using Real-Time Polymerase ChainReaction.Reportable Range: 20 copies/mL to 10,000,000 copies/mL(1.30 log copies/mL to 7.00 log copies/mL).THIS TEST WAS PERFORMED AT:[facility] [place] [phone] STRICKLAND MD 04/21/2025 10:4 3 AM EDT 04/21/2025 1:18 PM EDT Leta Dick MD LAB BLOOD ORDERAB LES Final Result Performing Organization Address [facility] Co de Phone Number [facility] [address] [place] [phone] * RPR (Monitor) with Reflex to??Titer (04/21/2025 10:43 AM EDT) RPR (Monitor) w/Refl Titer NON-REACTI VE NON-REACT [place] [facility] Comment:THIS TEST WAS PERFOR MED AT:[facility] [place] [id number] STRICKLAND MD Rapid Plasma Reagin Ab Titer TNP [facility] 04/21/2025 10:4 3 AM EDT 04/21/2025 1:18 PM EDT Leta Dick MD LAB BLOOD ORDERAB LES Final Result Performing Organization Address [facility]/ZIP Co de Phone Number [facility] [address] [place] [phone] * (ABNORMAL) Hepatitis C Antibody with Reflex to HCV, RNA, Quantitative, Real- Time PCR (04/21/2025 10:43 AM EDT) Hepatitis C Antibody Reactive( A) Nonreactive [facility] Comment:Presumptive evidence of antibodies to HCV. 04/21/2025 10:4 3 AM EDT 04/21/2025 1:18 PM EDT us Leta Dick MD LAB BLOOD ORDERAB LES Final Result Performing Organization Address [facility] Co de Phone Number [facility] [address] [place] [phone] * Syphilis Screen (04/21/2025 10:43 AM EDT) Syphilis Screen Nonreactive Nonreactive [facility] 04/21/2025 10:4 3 AM EDT 04/21/2025 1:18 PM EDT us Leta Dick MD LAB BLOOD ORDERAB LES Final Result Performing Organization Address [facility] de Phone Number [facility] [address] [place] [phone] documented in this encounter Visit Diagnoses Diagnosis Healthcare maintenance documented in this encounter Additional Health Concerns Assessment Noted Time PHQ-9 Depression Total Score: 0 03/12/20 25 10:25 AM EDT documented as of this encounter Care Teams Mems Device Scientist Relationship Specialty Start Date End Date Leta Soto MD [address] [place] [address] PCP - General Internal Medicine 04/11/23 Yajaira Antonio [address] [place] [address] [address] [place] [address] Gastroenterology 09/04/24 [facility] 01/28/25 documented as of this encounter
--- OUTSIDE RECORDS SUMMARY | 2025-07-01 23:49 | XMS_ITS | Clinical Summary ---
Author Organization [facility] Address [address] [facility] [address] [place] [phone] Phone Care Team Providers Care Loft Worker Pile Driving Name Role Phone Leta Soto MD Primary [...] Encounters Date Type Department Care Team Description 06/10/2025 Telephone [facility] [address] [facility] 10th [place] [address] Michela Matt MD 10/2 cancelled 06/09/[address] [address] Michela Matt MD Procedure Instructions 05/28/2025 10:00 AM EDT Pre-Admission Testing [facility] [place] Pre Procedure Evaluation Center [address] [place] [phone] Michela Matt MD 04/20/2025 1:15 PM EDT Office Visit [address] [address] Michela Matt MD 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 Last 3 Months Social History Tobacco Use Types Packs/Day Years Used Date Smoking Tobacco: Former Cigarettes 0.5 49.8 S tarted: 1976 Smokeless Tobacco: Never Tobacco Cessation:Counseling Given: Not [...] Department Care Team (Latest Contact Info) Description 09/24/2025 9:00 AM EST Pre-Admission Testing [facility] [place] Pre Procedure Evaluation Center [address] [place] [address] Michela Matt MD [address] [place] [phone] [email or web address] 10/08/2025 Procedure Pass [facility] [address] [place] [phone] 10/08/2025 9:00 AM EST Hospital Encounter [facility] [address] [place] [address] Michela Matt MD [address] [place] [phone] [email or web address] 10/08/2025 9:00 AM EST Anesthesia Event [facility] [address] [place] [address] Berlin Rosas MD [address] [place] [phone] [email or web address] Juliana Loredo NP [address] [place] [phone] [email or web address] [email or web address] 10/08/2025 9:00 AM EST - 10/08/2025 10:00 AM EST Surgery [facility] DEPT [address] [place] [address] Michela Matt MD [address] [place] [phone] [email or web address] LATERAL TARSAL STRIP 10/19/2025 2:30 PM EST Office Visit [facility] [address] [address] Michela Matt MD [address] [place] [phone] [email or web address] Scheduled Procedures Name Priority Associated Diagnoses Date/Ti me LATERAL TARSAL STRIP Ectropion of right upper eyelid, unspecified ectropion type 10/08/2025 9:00 AM EST Health Maintenance Due Date Last Done Comments CREATININE LEVEL 1961 POTASSIUM LEVEL 1961 DEPRESSION SCREENING 1973 SMOKING Hx and [...] VACCINE (#1) 2025 COVID-19 VACCINE (1 - 2024-2 6 season) 2025 LIPID PANEL 04/06/2028 04/06/2023 SCREENING FOR DIABETES 06/09/2028 06/09/2025 Adult Td,Tdap Booster 05/25/2033 05/25/2023 RSV VACCINE [...] topic Medical Devices Not on file Insurance [facility] [employer] C3 ACO C3 ACO C3 ACO C3 ACO C3 ACO C3 ACO Care Teams Loft Worker Pile Driving Relationship Specialty Start Date End Date Leta Soto MD [address] [place] [phone] PCP - General Internal Medicine 01/05/25 Additional Source Comments The information contained in this document represents components of the legal health record. It is not the complete legal health record.[facility]
--- OUTSIDE RECORDS SUMMARY | 2025-07-01 23:49 | XMS_ITS ---
Author Organization [employer] Address [address] [facility] 7t [place] [address] Care Team Providers Care Veterinary Livestock Inspector Name Role Phone Leta Soto MD Primary Care Pro vider Yajaira Antonio Unavailable [facility] Complex Status:Outreach In Progress (Enrolling) Start date:11/27/2024 Enrollment reason:Referred by provider Overview PCP Referral- 63-year-old male with HCV cirrhosis and multiple hospitalizations for hepatic encephalopathy with ongoing homelessness, poor health literacy. Needs support managing specialist appointments. Please outreach for enrollment. Case Team Name Relationship Phone Chata Puente(Responsible Staff) [phone] Continued Care and Services Coordination
--- OUTSIDE RECORDS SUMMARY | 2025-07-01 23:49 | XMS_ITS ---
Author Organization [employer] Address [address] [facility] 7t [place] [address] Care Team Providers Care Research Neuropsychologist Name Role Phone Leta Soto MD Primary [...] Phone Stanley Mckeon RN(Responsible Staff) Registered Nurse [phone] Continued Care and Services Coordination
--- OUTSIDE RECORDS SUMMARY | 2025-07-01 23:49 | XMS_ITS | Clinical Summary ---
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 60 mL 1 5 Active furosemide (Lasix) 40 MG tabletIndication s:Bilateral leg edema Take 1 tablet (40 mg) by mouth in the morning. 30 tablet 11 5 06/09/20 25 Discontin ued(Other ) clotrimazole (Lotrimin) 1 % cream APPLY TOPICALLY [...] 2 5 06/09/20 25 Discontin ued(Other ) carvedilol (Coreg) 6.25 MG tablet TAKE 1 TABLET BY MOUTH TWICE DAILY IN THE MORNING AND IN THE EVENING WITH FOOD 5 06/09/20 25 Discontin ued(Other ) Active Problems Problem Noted Date Diagnosed Date Erectile dysfunction 04/17/2025 Assessment & Plan (04/17/2025 9:50 AM EDT): Counseling done I prescribed sildenafil 25mg PRN At high risk for bleeding 03/13/2025 Hospital discharge follow-up 03/13/2025 Syncope 03/13/2025 Bilateral leg edema 11/27/2024 [...] his advocate PLAN: 1. Follow up with [facility]: Not recommended for follow-up 2. Patient goal is be connected to services 3. Behavioral Recommendations a. Patient will engage in service once established b. Patient may return to [facility] for medical needs until a PCP is [...] Problem Noted Date Diagnosed Date Resolved Date Abnormal CXR 03/13/2025 06/09/2025 Dyspnea 06/26/2023 01/23/2024 Hepatitis C virus infection without hepatic coma 04/05/2023 03/13/2025 Assessment & Plan (08/05/2024 8:07 PM EST): Stable, per GI viral load undetectable Urinary incontinence 04/05/2023 023 Encounters Date Type Department Care Team Description 07/01/2025 Telephone [facility] [address] [place] [address] Leta Soto MD 06/25/2025 Orders Only [facility] External Provider, [facility] 06/25/2025 Telephone [facility] [address] [place] [address] Leta Soto MD FYI 06/12/2025 Telephone [facility] [address] [place] [address] Leta Soto MD gsssi 06/11/[address] [address] Yamel Khanna RN 06/09/2025 9:45 AM EDT Office Visit [address] [address] Leta Soto MD Dizziness (Primary Dx); Essential hypertension; Other cirrhosis of liver (CMS/HCC); Hepatic encephalopathy (CMS/HCC); Healthcare maintenance 06/09/2025 Orders Only GENERIC EXTERNAL DATA DEPARTMENT Provider, Generic External Data 06/09/[address] [address] Leta Soto MD ER Follow-up 06/09/2025 Travel 06/08/[address] [address] Leta Soto MD chart prep 06/04/2025 Orders Only GENERIC EXTERNAL DATA DEPARTMENT Provider, Generic External Data 05/30/2025 10:40 AM EDT Office Visit [facility] [address] [place] [phone] Victoriano Beyer MD Oral ulcer (Primary Dx) 05/30/2025 Travel 05/22/2025 Orders Only [facility] External Provider, [facility] 05/21/2025 Orders Only GENERIC EXTERNAL DATA DEPARTMENT Provider, Generic External Data 05/20/2025 Orders Only GENERIC EXTERNAL DATA DEPARTMENT Provider, Generic External Data 05/15/2025 Orders Only GENERIC EXTERNAL DATA DEPARTMENT Provider, Generic External Data 04/27/2025 Orders Only [facility] [address] [place] [address], [place] [address] Veronica Miles, CHANDU 04/27/2025 Refill [facility] [address] [place] [address] Leta Soto MD 04/22/2025 Telephone [facility] [address] [place] [phone] Sadia Denny RN Medication Changes 04/22/2025 Orders Only [facility] [address] [place] [address], [place] [address] Leta Soto MD 04/21/2025 Orders Only [facility] [address] [place] [address], [place] [address] Imelda Pfeiffer, CHANDU Healthcare maintenance 04/20/[address] [address] Leta Soto MD FYI 04/17/2025 9:20 AM EDT Office Visit [facility] [address] [place] [address], [place] [address] Leta Forte MD Essential hypertension (Primary Dx); Erectile dysfunction, unspecified erectile dysfunction type 04/17/2025 Travel 04/16/2025 Refill [facility] [address] [place] [address], [place] [address] Leta Soto MD 04/14/[address] [place] [address] Leta Soto MD [employer] (I called the patient at [phone], regarding his request for [employer]IONAL PROJECT MANAGER services, and reached a recording stating that the number is not in service. I then called [phone], and he stated that he needs assistance with transferring and walking, because he has swelling in his legs, and falls frequently. He also needs assistance with getting to appointments. I informed him that a personal banking representative from [facility] would be in contact with him, to schedule an evaluation. He is currently living at the [facility],) 04/13/2025 Results Follow-Up [facility] [address] [place] [address] [place] [address] Cervical Spine w/o [...] Name Priority Date/Time Associated Diagnosis Comments XR HUMERUS LEFT Routine 06/25/2025 11:38 AM EDT URINALYSIS WITH REFLEX MICROSCOPIC Routine 06/09/2025 1:17 [...] METABOLIC PANEL Routine 04/11/2025 11:22 PM EDT LIPID PANEL, STANDARD Routine 04/06/2023 10:00 AM EDT Healthcare maintenance from Last 3 Months or Most Recently Relevant to Health Maintenance Results * XR Humerus Left (06/25/2025 11:38 AM EDT) Anatomical Region Laterality Modality Upper Extremities, Humerus Left Radio graphic Imaging 06/25/2025 11:3 8 AM EDT Narrative 06/25/2025 11:48 AM EDT [place] [address] XRay Report Signed Patient: Adelso Beebe MR#: [id number] : 1960 Acct:[id number] Age/Sex: 64 / M ADM Date: 06/25/25 Loc: HO.ED Attending Dr: Ordering Physician: Cash Reno MD Date of Service: 06/25/25 Procedure(s): XR humerus LT Accession Number(s): [id number] cc: Cash Reno MD; Leta Soto MD Reason for Exam: mid humeral ttp, EXAMINATION: XR HUMERUS LEFT HISTORY: mid humeral TTP, COMPARISON: There are no prior studies available for comparison. FINDINGS: AP and lateral views of the left humerus are submitted. Osseous mineralization is normal. There is no fracture or dislocation. The visualized shoulder and elbow joint spaces are preserved. The soft tissues are unremarkable. XR/XR humerus LT IMPRESSION: Unremarkable examination of the left humerus. Electronically signed by: Dieter Morse MD 06/25/2025 11:45 AM EDT RP Dictated By: Dieter Morse MD Signed By: <Electronically signed by Dieetr Morse MD in OV> 06/25/25 1145 DD/ 1138 TD/TT: 06/25/25 1138 Chief Of Hospital Medicine: Procedure Note Donotuseinterpreter, Image - 06/25/[address] [address] XRay Report Signed Patient: Adelso BeebeMR#: [id number] : 1960cct:[id number] Age/Sex: 64 / MADM Date: 06/25/25 Loc: .ED Attending Dr: Ordering Physician: Cash Reno MD Date of Service: 06/25/25 Procedure(s): XR humerus LT Accession Number(s): [id number] cc: Cash Reno MD; Leta Soto MD Reason for Exam: mid humeral ttp, EXAMINATION: XR HUMERUS LEFT HISTORY: mid humeral TTP, COMPARISON: There are no prior studies available for comparison. FINDINGS: AP and lateral views of the left humerus are submitted. Osseous mineralization is normal. There is no fracture or dislocation. The visualized shoulder and elbow joint spaces are preserved. The soft tissues are unremarkable. XR/XR humerus LT IMPRESSION: Unremarkable examination of the left humerus. Electronically signed by: Dieter Morse MD 06/25/2025 11:45 AM EDT RP Dictated By: Dieter Morse MD Signed By: <Electronically signed by Dieter Morse MD in OV> 06/25/25 1145 DD/ 1138 TD/TT: 06/25/25 1138 Chief Of Hospital Medicine: [facility] External Provider IMG XR PROCEDURES Edited Result - Final * Urinalysis w/reflex microscopic (06/09/2025 1:17 PM EDT) Only the most recent of2 resultswithin the time period is included. Color Urine Yellow [facility] Appearance Urine Clear [facility] PH 7.5 5.0 - 9.0 [facility] Glucose Urine UA Negative Negative mg/dL [facility] Urine Blood Negative Negative [facility] Specific [place] - Urine 1.015 1.005 - 1.025 [facility] Urine Protein Negative Neg-Trace mg/dL [facility] Urine Ketones Negative Negative mg/dL [facility] Nitrite Urine Negative Negative [facility] Leukocyte Esterase Urine Negative Negative [facility] 06/09/2025 1:17 PM EDT 06/09/2025 1:27 PM EDT Narrative [facility] - 06/09/2025 1:32 PM EDT [id number], Clean Catch Generic External Data Provider LAB URINE ORDERAB LES Final Result Performing Organization Address [facility]/ZIP Co de Phone Number [facility] [address] [place] [phone] * Slide Review (06/09/2025 12:43 PM EDT) Only the most recent of4 resultswithin the time period is included. Slide Review VERIFIED [facility] 06/09/2025 12:4 3 PM EDT 06/09/2025 12:46 PM EDT Generic External Data Provider LAB BLOOD ORDERAB LES Final Result Performing Organization Address [facility] Co de Phone Number [facility] [address] [place] [phone] * SARS-CoV-2 RNA, Influenza A/B, and RSV RNA, Ql NAAT (06/09/2025 12:43 PM EDT) [facility] Influenza A PCR NEGATIVE Negative [facility] Influenza B PCR NEGATIVE Negative [facility] Resp Syncy Virus RNA Qual PCR NEGATIVE Negative [facility] SARS COV2 PCR NEGATIVE Negative [facility] Comment:All test results mus t [...] use by authorized laboratories.Testing performed on the [employer] GeneXpert utilizingreal-time RT-PCR.All SARS CoV2 and positive influenza A/B results arereported to [facility]. 06/09/2025 12:4 3 PM EDT 06/09/2025 12:46 PM EDT us Generic External Data Provider LAB MICROBIOLOGY - GENERAL ORDERABLES Final Result [facility] [address] [place] [phone] * (ABNORMAL) CBC auto differential (06/09/2025 12:43 PM EDT) Only the most recent of5 resultswithin the time period is included. Pathologist [facility] White Blood Count 1.8(L) 4.8 - 10.8 X10*3/uL [facility] Red Blood Count 3.74(L) 4.60 - 5.80 X10*6/uL [facility] Hemoglobin 9.3(L) 14.0 - 18.0 g/dl [facility] Hematocrit 29.4(L) 42.0 - 52.0 % [facility] Mean Corpuscular Volume 78.6(L) 80.0 - 98.0 fL [facility] Mean Corpuscular Hemoglobin 24.9(L) 27.0 - 33.0 pg [facility] Mean Corpuscular HGB Conc 31.6 31.0 - 36.0 g/dl [facility] Red Cell Distribution Width 14.5 11.0 - 16.0 % [facility] Platelet Count 27(L) 160 - 400 X10*3/uL [facility] Neutrophils Percent Auto 50.6 45 - 73 % [facility] Imm Gran Pct Auto 0.0 0.0 - 0.4 % [facility] Lymphocytes Percent Auto 37.5 20 - 40 % [facility] Monocytes Percent Auto 8.7 2 - 11 % [facility] Eosinophils Percent Auto 2.7 0 - 4 % [facility] Basophils Percent Auto 0.5 0 - 2 % [facility] NRBC Pct Auto 0.0 0.0 - 0.2 /100WBC [facility] Neutrophils Absolute Auto 0.9(L) 2.0 - 8.3 x10*3/uL [facility] Imm Gran Abs Auto 0.00 0.00 - 0.03 X10*3/uL [facility] Lymphocytes Absolute Auto 0.7(L) 1.2 - 4.9 X10*3/uL [facility] Monocytes Absolute Auto 0.2 0.1 - 1.2 X10*3/uL [facility] Eosinophils Absolute Auto 0.1 0.0 - 0.4 X10*3/uL [facility] Basophils Absolute Auto 0.0 0.0 - 0.2 X10*3/uL [facility] NRBC Abs Auto 0.000 0.0 - 0.012 X10*3/uL [facility] 06/09/2025 12:4 3 PM EDT 06/09/2025 12:46 PM EDT us Generic External Data Provider LAB BLOOD ORDERAB LES Edited Result - Final [facility] [address] [place] [phone] * POCT Glucose (06/09/2025 11:04 AM EDT) [facility] Glucose Blood, POC 107 60 - 200 mg/dL QC Media Lot # [id number] Lot# Expiration Date ,762,717 Blood Capillary blood specimen / Unknown 06/09/2025 11:04 AM EDT Leta Dick MD POINT OF CARE ANCELMO T ENTER/EDIT ORDERABLES Final Result * (ABNORMAL) Ammonia, Plasma (06/04/2025 4:07 PM EDT) Only the most recent of2 resultswithin the time period is included. [facility] Ammonia (P) 64(H) 13 - 55 umol/L [facility] 06/04/2025 4:07 PM EDT 06/04/2025 4:10 PM EDT us Generic External Data Provider LAB BLOOD ORDERAB LES Final Result [facility] [address] [place] [phone] * Drug Monitoring, Panel 1, Screen, Urine (06/04/2025 3:34 PM EDT) [facility] Opiate Screen Urine Not Detected Not Detect [facility] Comment:Opiate cut-off is 30 0 ng/mL.Positive results are unconfirmed and should not be used fornon-medical purposes. Barbiturates, Urine Not Detected Not Detect [facility] Comment:Barbiturate cut-off is 200 ng/mL.Positive results are unconfirmed and should not be used fornon-medical purposes. Phencyclidine Screen Urine Not Detected Not Detect [facility] Comment:Phencyclidine cut-of f is 25 ng/mL.Positive results are unconfirmed and should not be used fornon-medical purposes. Amphetamine Screen Urine Not Detected Not Detect [facility] Comment:Amphetamine cut-off is 1000 ng/mL.Positive results are unconfirmed and should not be used fornon-medical purposes. Benzodiazepines Screen Urine Not Detected Not Detect [facility] Comment:Benzodiazepine cut-o ff is 200 ng/mL.Positive results are unconfirmed and should not be used fornon-medical purposes. Cocaine Screen Urine Not Detected Not Detect [facility] Comment:Cocaine cut-off is 3 00 ng/mL.Positive results are unconfirmed and should not be used fornon-medical purposes. Cannabinoid Screen Urine Not Detected Not Detect [facility] Comment:Cannabinoid cut-off is 50 ng/mL.Positive results are unconfirmed and should not be used fornon-medical purposes. Methadone Screen, Urine Not Detected Not Detect ng/mL [facility] Comment:Methadone cut-off is 300 ng/mL.Positive results are unconfirmed and should not be used fornon-medical purposes. FENTANYL URINE Not Detected Not Detect [facility] Comment:Fentanyl cut-off is 1 ng/mL.Positive results are unconfirmed and should not be used fornon-medical purposes. Oxycodone Urine Screen Not Detected Not Detect ng/mL [facility] Comment:Oxycodone cut-off is 100 ng/mL.Positive results are unconfirmed and should not be used fornon-medical purposes. Buprenorphine Screen Not Detected Not Detect ng/mL [facility] Comment:Buprenorphine cut-of f is 5 ng/mL.Positive results are unconfirmed and should not be used fornon-medical purposes. 06/04/2025 3:34 PM EDT 06/04/2025 3:36 PM EDT us Generic External Data Provider LAB URINE ORDERAB LES Final Result [facility] [address] [place] [phone] * Lipase (06/04/2025 2:25 PM EDT) Lipase 20 8 - 78 U/L [facility] 06/04/2025 2:25 PM EDT 06/04/2025 2:29 PM EDT us Generic External Data Provider LAB BLOOD ORDERAB LES Final Result Performing Organization Address City/[facility]/ZIP Co de Phone Number [facility] [address] [place] [phone] * Hepatic Function Panel (06/04/2025 2:25 PM EDT) Bilirubin, Direct 0.5 0.0 - 0.5 mg/dL [facility] 06/04/2025 2:25 PM EDT 06/04/2025 2:29 PM EDT Generic External Data Provider LAB BLOOD ORDERAB LES Final Result Performing Organization Address [facility] Co de Phone Number [facility] [address] [place] [phone] * (ABNORMAL) Comprehensive Metabolic Panel (06/04/2025 2:25 PM EDT) Only the most recent of3 resultswithin the time period is included. Sodium 143 135 - 145 mmol/L [facility] Potassium 4.6 3.3 - 5.1 mmol/L [facility] Chloride 115(H) 96 - 108 mmol/L [facility] Carbon Dioxide 26 22 - 29 mmol/L [facility] Anion Gap 7(L) 12 - 20 [facility] Urea Nitrogen (BUN) 11 9 - 16 mg/dL [facility] Creatinine, Serum 0.76 0.5 - 1.4 mg/dL [facility] Creatinine Clr Calc Pharmacy 102.7 [facility] Comment:eGFR (calculated fro m the MDRD study equation) and eCrCl(calculated from the Cockcroft-Gault equation) are based ondifferent parameters and may not yield comparable results.If eCrCl result is absurd, please check patient'sheight/weight. Estimated Glomerular Filt Rate >60 [facility] Comment:Chronic Kidney Disea se: Estimated GFR < 60 mL/min/1.86i4Hhnfoz Kidney Disease: Estimated GFR < 15 mL/min/1.73m2 Glucose 66 60 - 115 mg/dL [facility] Calcium 8.4 8.4 - 10.2 mg/dL [facility] Bilirubin, Total 1.3(H) 0.0 - 1.0 mg/dL [facility] Aspartate Amino Transferase 32 5 - 37 U/L [facility] Alanine Aminotransferase 21 0 - 40 U/L [facility] Total Protein 6.1(L) 6.5 - 8.0 g/dL [facility] Albumin Level 2.9(L) 3.5 - 5.0 g/dL [facility] Alkaline Phosphatase 122(H) 39 - 117 U/L [facility] 06/04/2025 2:25 PM EDT 06/04/2025 2:29 PM EDT us Generic External Data Provider LAB BLOOD ORDERAB LES Final Result Performing Organization Address City/State/[facility] Co de Phone Number [facility] [address] [place] [phone] * CT Head w/o Contrast (05/22/2025 3:27 PM EDT) Only the most recent of2 resultswithin the time period is included. Anatomical Region Laterality Modality Head, Neck Computed Tomogra phy 05/22/2025 3:27 PM EDT Narrative 05/22/2025 3:54 PM EDT [place] [address] CT Scan Report Signed Patient: Adelso Beebe MR#: [id number] : 1960 Acct:[id number] Age/Sex: 64 / M ADM Date: 05/22/25 Loc: HO.ED Attending Dr: Ordering Physician: Jorge Wang MD Date of Service: 05/22/25 Procedure(s): CT head/brain wo IV con Accession Number(s): [id number] cc: Jorge Wang MD; Leta Soto MD Report Number: [id number]: Total DLP = 682.00 mGy-cm Reason for [...] 05/22/25 1551 DD/ 1527 TD/TT: 05/22/25 1541 Chief Of Hospital Medicine: Procedure Note Donotuseinterpreter, Image - 05/22/[address] [address] [address] Scan Report Signed Patient: Adelso BeebeMR#: [id number] : 1960cct:[id number] Age/Sex: 64 / MADM Date: 05/22/25 Loc: HO.ED Attending Dr: Ordering Physician: Jorge Wang MD Date of Service: 05/22/25 Procedure(s): CT head/brain wo IV con Accession Number(s): [id number] cc: Jorge Wang MD; Leta Soto MD Report Number: [id number]: Total DLP = 682.00 mGy-cm Reason for [...] 05/22/25 1551 DD/ 1527 TD/TT: 05/22/25 1541 Chief Of Hospital Medicine: [facility] External Provider IMG CT PROCEDURES Final Result * High Sensitivity Troponin I (05/22/2025 2:41 PM EDT) Only the most recent of3 resultswithin the time period is included. TROPONIN I HIGH SENSITIVITY 34.9 <3.5 - 35.0 ng/L [facility] Comment:The Clifford high sens itivity Troponin-I results should beused in conjunction with other diagnostic information suchas ECG, clinical observations and information, and patientsymptoms to aid in the diagnosis of UT. 05/22/2025 2:41 PM EDT 05/22/2025 2:45 PM EDT Generic External Data Provider LAB BLOOD ORDERAB LES Final Result Performing Organization Address [facility] Co de Phone Number [facility] [address] [place] [phone] * Ethanol (05/22/2025 2:41 PM EDT) Only the most recent of2 resultswithin the time period is included. ETHANOL (MG/DL) IN SER/PLAS <10 mg/dL [facility] Comment:Serum/plasma ethanol results are to be used formedical/treatment purposes only. 05/22/2025 2:41 PM EDT 05/22/2025 2:45 PM EDT Generic External Data Provider LAB BLOOD ORDERAB LES Final Result Performing Organization Address [facility] Co de Phone Number [facility] [address] [place] [phone] * XR Chest 1 View (05/22/2025 2:22 PM EDT) Anatomical Region Laterality Modality Chest Radiographic Susy ging 05/22/2025 2:22 PM EDT Narrative 05/22/2025 2:39 PM EDT [address] [address] XRay Report Signed Patient: Adelso Beebe MR#: [id number] : 1960 Acct:[id number] Age/Sex: 64 / M ADM Date: 05/22/25 Loc: .ED Attending Dr: Ordering Physician: Jorge Wang MD Date of Service: 05/22/25 Procedure(s): XR chest 1V Accession Number(s): [id number] cc: Jorge Wang MD; Leta Soto MD [...] 05/22/25 1436 DD/ 142 TD/TT: 05/22/25 143 Chief Of Hospital Medicine: Procedure Note Donotuseinterpreter, Image - 05/22/[address] [address] XRay Report Signed Patient: Adleso BeebeMR#: [id number] : 1960cct:[id number] Age/Sex: 64 / MADM Date: 05/22/25 Loc: .ED Attending Dr: Ordering Physician: Jorge Wang MD Date of Service: 05/22/25 Procedure(s): XR chest 1V Accession Number(s): [id number] cc: Jorge Wang MD; Leta Soto MD [...] signed by Juliet Strong MD in OV> 05/22/251435 DD/ 21 TD/TT: 05/22/251431 Chief Of Hospital Medicine: [facility] External Provider IMG XR PROCEDURES Final Result * Hematoxylin and Eosin Stain (05/21/2025 2:15 PM EDT) 05/21/2025 2:15 PM EDT 05/21/2025 2:50 PM EDT [facility] - 05/25/2025 5:25 PM EDT ----- ------- Name: Gofdrey Adelso Mcmanus Age/Sex: 64/M : 1960 Unit#: [id number] Attend Dr: Yajaira Antonio MD Re05/21/25 Status: [facility] Location: [facility] Disch: ----- ------- SPEC : [id number] RECD: 05/21/25-145 STATUS: OUMOU FONSECA NUM: [id number] CASSI: 05/21/25-141 [facility] [address]: Yajaira Antonio MD ENTERED: 05/21/25-7417 SP TYPE: Surgical OTHR DR: Leta Soto [...] examination, 6 pieces in cassette A. ([facility]) Special studies ordered and performed: Immunostain for H. pylori; AB/PAS stains IHC S/NG Disclaimer NOTE: Unless otherwise stated, all tissue is formalin-fixed and paraffin-embedded. Some or all of the immunohistochemical tests reported herein may have been developed and their performance characteristics determined by [facility]. They have not been cleared or approved by the U.S. Food and Drug Administration (FDA). However, the FDA has determined that such clearance or approval is not necessary. This laboratory is certified under the Clinical Laboratory Improvement Amendments of 1988 (CLIA) as qualified to perform high complexity clinical laboratory testing. Copies To: Leta Soto MD [address] [place] [id number] CONTINUED ON NEXT PAGE ----- ------- Name: Adelso Beebe Age/Sex: 64/M : 1960 Unit#: [id number] Attend Dr: Yajaira Antonio MD Re05/21/25 Status: [facility] Location: [facility] Disch: ----- ------- SPEC : [id number] RECD: 05/21/25 STATUS: OUMOU FONSECA NUM: [id number] CASSI: 05/21/25 [facility] DR: Yajaira Antonio MD ENTERED: 05/21/25 SP TYPE: Surgical OTHR DR: Leta Soto MD ORDERED: HE Stain/3, Gross Micro L4, IHC, Special st. 2, H. pylori, AB/PAS Copies To: (Continued) Yajaira Antonio MD [facility] [address] [place] [phone] [email or web address] ----- ------- Signed (signature on file) Raul Blunt MD 05/25/25 0281 ----- ------- END OF REPORT us Generic External Data Provider LAB BLOOD ORDERAB LES Final Result [facility] [address] [place] [address] [phone] * Pheresis Platelets (05/20/2025 10:46 AM EDT) Pheresis Platelets [id number] AP PHPLT TRANSFUSED 05/21/25 1333 [id number] AP PHPLT TRANSFUSED 05/21/25 1223 [facility] 05/20/2025 10:4 6 AM EDT 05/20/2025 11:19 AM EDT us Generic External Data Provider LAB BLOOD BANK TE ST ORDERABLES Final Result [facility] [address] [place] [phone] [phone] * Type and screen (05/20/2025 10:46 AM EDT) Blood Type ON [facility] Antibody Screen NEGATIVE [facility] 05/20/2025 10:4 6 AM EDT 05/20/2025 11:19 AM EDT Narrative [facility] - 05/26/2025 11:30 AM EDT WITNESSED BY SARAH.NURSING:Call Blood Bank (ext. [phone]) to band patient on admission.Type and Screen [...] Generic External Data Provider LAB BLOOD BANK [facility] ORDERABLES Final Result [facility] [address] [place] [address] [phone] * Urinalysis, Complete, with Reflex to Culture (05/15/2025 2:19 PM EDT) Color Urine Yellow [facility] Appearance Urine Clear [facility] PH 8.0 5.0 - 9.0 [facility] Glucose Urine UA Negative Negative mg/dL [facility] Urine Blood Negative Negative [facility] Specific [place] - Urine 1.010 1.005 - 1.025 [facility] Urine Protein Negative Neg-Trace mg/dL [facility] Urine Ketones Negative Negative mg/dL [facility] Nitrite Urine Negative Negative [facility] Leukocyte Esterase Urine Negative Negative [facility] RBC Urine 0-2 0 - 2 /HPF [facility] Urine WBC 0-5 0 - 5 /HPF [facility] Urine Squamous Epithelial Cell 0-2 0 - 2 /HPF [facility] Urine Bacteria None Seen None Seen [facility] Hyaline Casts, Urine 0-2 0 - 2 /LPF [facility] 05/15/2025 2:19 PM EDT 05/15/2025 2:33 PM EDT Narrative [facility] - 05/15/2025 2:44 PM EDT Urine, Clean Catch us Generic External Data Provider LAB URINE ORDERAB LES Final Result Performing Organization Address [facility] Co de Phone Number [facility] [address] [place] [phone] * (ABNORMAL) B Type Natriuretic Peptide (BNP) (05/15/2025 2:19 PM EDT) B Type Natriuretic Peptide 178(H) <100 pg/mL [facility] 05/15/2025 2:19 PM EDT 05/15/2025 2:33 PM EDT us Generic External Data Provider LAB BLOOD ORDERAB LES Final Result Performing Organization Address [facility] Phone Number [facility] [address] [place] [phone] * (ABNORMAL) Prothrombin Time-INR (05/15/2025 11:23 AM EDT) Prothrombin Time 16.1(H) 10.9 - 12.4 SEC [facility] INTERNATIONAL NORM RATIO 1.4(H) 0.9 - 1.1 [facility] Comment:INTERNATIONAL NORMAL IZED RATIO (INR) REFERENCE [...] ORDERAB LES Final Result Performing Organization Address [facility] Co de Phone Number [facility] [address] [place] [phone] * Syphilis Screen (04/21/2025 10:43 AM EDT) [facility] Syphilis Screen Nonreactive Nonreactive [facility] 04/21/2025 10:4 3 AM EDT 04/21/2025 1:18 PM EDT Leta Dick MD LAB BLOOD ORDERAB LES Final Result Performing Organization Address [facility] Co de Phone Number [facility] [address] [place] [address] [phone] * Hepatitis C Viral RNA, Quantitative, Real-Time PCR (04/21/2025 10:43 AM EDT) [facility] Hepatitis C Viral Load <15 NOT DETECTED NOT DETECTED IU/mL [facility] HCV Log PCR <1.18 NOT DETECTED NOT DETECTED Log IU/mL [facility] Comment:For additional infor tash, please refer tohttp://education.[employer] Level User [place]/faq/ZNT39u9(This link is being provided for informational/educational purposes only.)THIS TEST WAS PERFORMED AT:[facility] [place] [id number] STRICKLAND MD 04/21/2025 10:4 3 AM EDT 04/22/2025 8:54 AM EDT us Leta Dick MD LAB BLOOD ORDERAB LES Final Result Performing Organization Address [facility] Co de Phone Number [facility] [address] [place] [phone] * (ABNORMAL) Hepatitis C Antibody with Reflex to HCV, RNA, Quantitative, Real- Time PCR (04/21/2025 10:43 AM EDT) [facility] Hepatitis C Antibody Reactive( A) Nonreactive [facility] Comment:Presumptive evidence of antibodies to HCV. 04/21/2025 10:4 3 AM EDT 04/21/2025 1:18 PM EDT us Leta Dick MD LAB BLOOD ORDERAB LES Final Result Performing Organization Address City/[facility]/ZIP Co de Phone Number [facility] [address] [place] [phone] * HIV-1 RNA, Quantitative, Real-Time PCR (04/21/2025 10:43 AM EDT) HIV RNA PCR Qn Copies NOT DETECTED NOT DETECTED copies/mL [facility] HIV RNA PCR Qn Log Copies NOT DETECTED NOT DETECTED [facility] Comment:Result Units: Log co pies/mLThis test was performed using Real-Time Polymerase ChainReaction.Reportable Range: 20 copies/mL to 10,000,000 copies/mL(1.30 log copies/mL to 7.00 log copies/mL).THIS TEST WAS PERFORMED AT:[facility] [place] [phone] STRICKLAND MD 04/21/2025 10:4 3 AM EDT 04/21/2025 1:18 PM EDT us Leta Dick MD LAB BLOOD ORDERAB LES Final Result Performing Organization Address [facility] Co de Phone Number [facility] [address] [place] [phone] * RPR (Monitor) with Reflex to??Titer (04/21/2025 10:43 AM EDT) RPR (Monitor) w/Refl Titer NON-REACTI VE NON-REACT [place] [facility] Comment:THIS TEST WAS PERFOR MED AT:[facility] [place] [phone] STRICKLAND MD Rapid Plasma Reagin Ab Titer TNP [facility] 04/21/2025 10:4 3 AM EDT 04/21/2025 1:18 PM EDT Leta Dick MD LAB BLOOD ORDERAB LES Final Result [facility] [address] [place] [phone] * Chlamydia/Gonorrhea Throat Swab ([facility]) (04/21/2025) Chlamydia Throat Swab Negative Gonorrhea Throat Swab Negative Swab 04/21/2025 Result [facility] Provider LAB MICROBIOLOGY - GENERA L ORDERABLES Final Result * Chlamydia/Gonorrhea, Urine ([facility]) (04/21/2025) Chlamydia, Urine Negative Negative, Indeterminate, None Detected, Invalid, Specimen unsatisfactory for evaluation, Weakly Positive, 2+ Gonorrhea, Urine Negative Negative, Indeterminate, None Detected, Invalid, Specimen unsatisfactory for evaluation, Weakly Positive, 2+ Urine 04/21/2025 Result [facility] Provider LAB URINE ORDERABLES Robyn l Result * CT Cervical Spine w/o Contrast (04/12/2025 12:26 AM EDT) Anatomical Region Laterality Modality Spine, C-spine Computed Tomogra phy 04/12/2025 12:2 6 AM EDT Narrative 04/12/2025 12:28 AM EDT [address] [address] [address] Scan Report Signed Patient: Adelso Beebe MR#: [id number] : 1960 Acct:[id number] Age/Sex: 64 / M ADM Date: 04/11/25 Loc: .ED Attending Dr: Ordering Physician: Cash Reno MD Date of Service: 04/11/25 Procedure(s): CT cervical spine wo IV con Accession Number(s): [id number] cc: Cash Reno MD; [facility] Report Number: [id number]: Total DLP = 462.38 mGy-cm CLINICAL HISTORY: [...] MD in OV> 04/12/2526 DD/ TD/TT: 04/12/2525 Chief Of Hospital Medicine: Procedure Note Donotuseinterpreter, Image - 04/12/[address] [place] [address] [address] Scan Report Signed Patient: Adelso BeebeMR#: [id number] : 1960cct:[id number] Age/Sex: 64 / MADM Date: 04/11/25 Loc: .ED Attending Dr: Ordering Physician: Cash Reno MD Date of Service: 04/11/25 Procedure(s): CT cervical spine wo IV con Accession Number(s): [id number] cc: Cash Reno MD; [facility] Report Number: [id number]: Total DLP = 462.38 mGy-cm CLINICAL HISTORY: [...] MD in OV> 04/12/2526 DD/ TD/TT: 04/12/2525 Chief Of Hospital Medicine: [facility] External Provider IMG CT PROCEDURES Final Result * Magnesium (04/11/2025 11:22 PM EDT) Magnesium 2.0 1.6 - 2.6 mg/dL [facility] 04/11/2025 11:2 2 PM EDT 04/11/2025 11:26 PM EDT Generic External Data Provider LAB BLOOD ORDERAB LES Final Result Performing Organization Address City/State/[facility] Co de Phone Number [facility] [address] [place] [phone] * Lipid Panel, Standard (04/06/2023 10:00 AM EDT) Triglycerides 94 mg/dL [facility] Comment:Desirable Triglyceri de: less than 150 mg/dLBorderline High Triglyceride 150-199 mg/dLHigh Triglyceride: 200-499 mg/dLVery High Triglyceride: greater than or equal to 5OO mg/dL Cholesterol 79 mg/dL [facility] Comment:Desirable Cholestero l: less than 200 mg/dLBorderline High Cholesterol: 200-239 mg/dLHigh Cholesterol: greater than 239 mg/dL LDL Cholesterol Calculated 36 mg/dl [facility] Comment:Desirable LDL: less than 100 mg/dLNear [...] 04/06/2023 11:20 AM EDT us Ann Piña [facility] LAB BLOOD ORDERABLES Final Resul t [facility] [address] [place] [phone] from Last 3 Months or Most Recently Relevant to Health Maintenance Insurance [employer]3 Care Teams Brush Finisher Relationship Specialty Start Date End Date Leta Soto MD [address] [place] [phone] PCP - General Internal Medicine 04/11/23 Yajaira Antonio [address] [place] [address] Drive 3[address] [place] [address] Gastroenterology 09/04/24 [facility] 01/28/25
--- OUTSIDE RECORDS SUMMARY | 2025-07-01 23:49 | XMS_ITS | Encounter Summary ---
Author Organization [employer] Address [address] [facility] [address] [place] [address] Care Team Providers Care Surgical Clinical Reviewer Name Role Phone Leta Soto MD Primary Care Pro vider Yajaira Antonio Unavailable Encounter Details Date Type Department Care Team (Late st Contact Info) Description 07/01/2025 Telephone [facility] [address] [place] [phone] Leta Soto MD [address] [place] [address] Social History Tobacco Use Types Packs/Day Years [...] encounter Miscellaneous Notes * Telephone Encounter - Marion Yen LPN - 07/01/2025 2:19 PM EDT Telephone call placed to [facility]. Call transferred to Nora who reviewed patient Home Care status with this Nurse for Utilization Review. 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 Patient has prison visits 2 times weekly for physical assessment and med delivery. Per report patient is selective with medications as he feels that they affect his vertigo. Patient attends [facility] Sun-Sunday per Nora. documented in this encounter Plan of Treatment [...] documented as of this encounter Care Teams Surgical Clinical Reviewer Relationship Specialty Start Date End Date Leta Soto MD [address] [place] [phone] PCP - General Internal Medicine 04/11/23 Yajaira Antonio [address] [place] [address] [address] [place] [address] Gastroenterology 09/04/24 [facility] 01/28/25 documented as of this encounter
--- OUTSIDE RECORDS SUMMARY | 2025-07-01 23:49 | XMS_ITS | Encounter Summary ---
Author Organization [employer] Address [address] [facility] [address] [place] [address] Care Team Providers Care Radiology Orderly Name Role Phone Leta Soto MD Primary Care Pro vider PacoYajaira Unavailable Reason for Visit * Reason Onset Date Comments FYI 06/25/2025 Encounter Details Date Type Department Care Team (Late st Contact Info) Description 06/25/2025 Telephone [facility] [address] [place] [address] Leta Soto MD [address] [place] [address] FYI Social History Tobacco Use Types Packs/Day Years [...] encounter Miscellaneous Notes * Telephone Encounter - Sadia Denny RN - 06/29/2025 12:22 PM EDT Return call placed to the pt with S filter tip catcher #[id number] to follow up on reported ED visit from 06/25/2025 in which the pt was seen for the pt seeming slightly confused and off . The pt was found laure alert and talking with no ill appearance and was discharged with a morning dose of rifaximin andlactulose. The pt states he is doing well today and has his EDUCATION INTERN Adelso who helps him remain compliantwith TID Lactulose medication. The pt did not seem confused and was alert and oriented on the phone. The pt denied needing any follow up with PCP and recalls seeing Dr. Yan at the end of May for last office visit. Pt to follow up PRN. * Telephone Encounter - Heriberto Howe - 06/25/2025 10:54 AM EDT Tc from Jonathon stiles RN reporting that they had to send pt on an Ambulance to the ER due to pt being severely confused and and suspected compliance with lactulose. Any questions contact get at [phone] documented in this encounter Plan of Treatment [...] documented as of this encounter Care Teams Radiology Orderly Relationship Specialty Start Date End Date Leta Soto MD [address] [place] [phone] PCP - General Internal Medicine 04/11/23 Yajaira Antonio [address] [place] [address] 3rd [place] [address] Gastroenterology 09/04/24 [facility] 01/28/25 documented as of this encounter
[2025-07-01 23:50] LABS: Alanine Aminotransferase 28 U/L (0-40); Albumin Level 3.0 g/dL (3.5-5.0); Alkaline Phosphatase 149 U/L (39-117); Anion Gap 9 (12-20); Aspartate Amino Transferase 40 U/L (5-37); Blood Urea Nitrogen 18 mg/dL (9-16); Calcium 8.3 mg/dL (8.4-10.2); Carbon Dioxide 23 mmol/L (22-29); Chloride 115 mmol/L (96-108); Creatinine Clr Calc Pharmacy 96.0; Estimated Glomerular Filt Rate > 60; Magnesium 2.0 mg/dL (1.6-2.6); Potassium 4.4 mmol/L (3.3-5.1); Sodium 143 mmol/L (135-145); Total Protein 6.1 g/dL (6.5-8.0)
[2025-07-02] VITALS: PULSE 72
[2025-07-02 00:15] LABS: Resp Syncy Virus RNA Qual PCR NEGATIVE (Negative); SARS COV2 PCR INHOUSE NEGATIVE (Negative)
[2025-07-02 00:41] LABS: Cannabinoid Screen Urine Not Detected (Not Detect)
[2025-07-02 00:45] LABS: Appearance Urine Clear; Glucose Urine UA Negative (Negative); PH 6.5 (5.0-9.0); Specific Gravity - Urine >= 1.030 (1.005-1.025)
[2025-07-02 00:46] LABS: Band Neutrophils Percent 0 % (3-5); Lymphocytes Absolute Manual 0.4 X10*3/uL (1.2-4.9); Lymphocytes Percent Manual 26 % (20-40); Monocytes Absolute Manual 0.1 X10*3/uL (0.1-1.2); Monocytes Percent Manual 4 % (2-11); Neutrophils Absolute Manual 1.0 X10*3/uL (2.0-8.3); Neutrophils Percent Manual 70 % (45-73)
[2025-07-02 00:47] LABS: Burr Cells 1+ (0-2) /OIF; Ovalocytes 1+ (5-14) /OIF; Schistocytes 1+ (0-2) /OIF; Tear Drop Cells 1+ (0-2) /OIF
[2025-07-02 00:48] LABS: RBC Morphology NOTED
--- NOTE | 2025-07-02 01:05 | ED.CHESTPAIN ---
HPI - Chest Pain General Chief Complaint: Chest Pain Stated Complaint: cough, chest pain Time Seen by Provider: 07/01/25 22:23 Source: EMS Limitations: language barrier and other ( will not speak) History of Present Illness ED Provider: Bhavana Christensen PA-C HPI narrative: 64 year old male with a history of hypertension, hepatitis-C, cirrhosis with a ascites, prior hepatic encephalopathy, chronic pancytopenia, esophageal varices, iron deficiency anemia, gastritis, presents with chest pain. Patient called for assistance to his home for chest pain. When EMS arrived the patient refused to speak with them. Patient continues to refused to speak here in the emergency room. Related Data Home Medications ?Medication ?Instructions ?Recorded ?Confirmed blood pressure test kit-large #1 ea 05/27/25 (Omron Blood Pressure Monitor-3 Series kit) lactulose 10 gram/15 mL oral 40 g PO BID 06/04/25 06/09/25 solution Previous Rx's ?Medication ?Instructions ?Recorded walker #1 ea 02/08/25 amlodipine 5 mg tablet 5 mg PO DAILY #90 tabs 04/21/25 rifaximin 550 mg tablet (Xifaxan) 550 mg PO BID 90 days #180 tabs 05/27/25 Allergies Allergy/AdvReac Type Severity Reaction Status Date / Time dicyclomine (From Bentyl) Allergy Unknown Verified 07/01/25 23:19 aspirin AdvReac Severe stomach Verified 07/01/25 23:19 bleeding NSAIDS (Non-Steroidal AdvReac Severe liver Verified 07/01/25 23:19 Anti-Inflamma concerns Review of Systems Review of Systems: Unable to obtain as the patient will not or can not speak Yes all other systems are reviewed and are negative [facility] Past Medical History Attestation statement: The following information was validated with the patient. Medical History Portal vein thrombosis Eye abnormality Cirrhosis of liver Pancytopenia Hyperammonemia Pancytopenia Obesity (BMI 30.0-34.9) Fall Pancytopenia Hepatic encephalopathy Cirrhosis Splenic vein thrombosis Sepsis Cirrhosis of liver with ascites Abdominal pain Thrombocytopenia Pancytopenia Cirrhosis Hepatitis C virus infection Esophageal varices Pancytopenia Iron deficiency anemia Cirrhosis Hepatitis C HBP (high blood pressure) Surgical History S/P TIPS (transjugular intrahepatic portosystemic shunt) H/O left inguinal hernia repair H/O eye surgery History of esophagogastroduodenoscopy (EGD) H/O colonoscopy Family History Family History Maternal Grandmother Breast CA Uterus cancer Mother Primary lung cancer of unknown cell type Social History Social History Household Members: Other Household Members Other:: pt comes from a longterm Housing: Other Housing Other:: longterm Are you a primary clinical manager home care to a significant other at home: No Do you presently have visiting nurse or other home services: No Unable to assess alcohol history related to: Refusing to respond Alcohol intake: former Comment: pt refusing alarm's Patient Tobacco Use Status: Never used Tobacco Tobacco use type: Cigarette Cigarette Packs Per Day: 1 Cigarettes Per Day: 0.5 Years Smoked: 45 e-Cigarette/Vaping Use: Never Used Second Hand Smoke Exposure: No Use of substances other than those prescribed or required for medical reasons: Refusing to respond Substance Use Type: Heroin Advance Directives: Yes Advance Directives on File: Yes Advance Directives Date on File: 04/02/24 Do you have a plan to hurt others: No Plan service: No Current occupational status: retired Physical Exam Vital Signs: Vital Signs: Last Vital Signs Temp 96.8 F 07/02/25 01:51 Pulse 69 07/02/25 01:51 Resp 17 07/02/25 01:51 BP 134/49 L 07/02/25 01:51 Pulse Ox 97 07/02/25 01:51 O2 Del Method Room Air 07/02/25 01:51 BMI result Body Mass Index 32.8 Const: Other: Alert Orientation/consciousness: oriented to person Resp: Effort & Inspection: normal respiratory effort Cardio: Other: Normal peripheral perfusion, pitting edema noted Skin: Other: Warm dry no rash Neuro: Other: We will not answer questions I can not fully assess his orientation, he responds to his name, he will shake his head for yes and no type questioning, which he is responding to appropriately, to note we have interpreter for the deaf at bedside guiding the conversation General: oriented to person, no focal motor deficits and CN's II-XI intact bilaterally Psych: Other: Somewhat uncooperative, initially not allowing for blood draw or an IV NIH Stroke Scale Level of Consciousness: Alert Level of Consciousness Questions: Answers one question correctly Level of Consciousness Commands: Performs both tasks correctly Best Gaze: Normal Visual: No visual loss Facial Palsy: Normal Motor Arm (Right): No drift Motor Arm (Left): No drift Motor Leg (Right): No drift Motor Leg (Left): No drift Limb Ataxia: Absent Sensory: Normal Best Language: Mute, global aphasia Dysarthia: Normal (I can not assess this) Extinction and Inattention: No abnormality Score: 4 Course Reevaluation(s) Reevaluation #1: Once the patient returned from CT, he immediately started speaking, he is up and ambulatory, asking to go to the bathroom to give a urine sample. He is no longer altered or aphasic Medications Administered Discontinued Medications Generic Name Dose Route Start Last Admin Trade Name Freq PRN Reason Stop Dose Admin Iohexol 75 ml 07/01/25 23:18 07/01/25 23:19 Iohexol 350 Mg/Ml 100 Ml Infus..Btl IV 07/01/25 23:19 75 ml ONCE ONE Administration Medical Decision Making Medical Decision Making MDM Narrative: 64 year old male with a history of hypertension, hepatitis-C, cirrhosis with a ascites, prior hepatic encephalopathy, chronic pancytopenia, esophageal varices, iron deficiency anemia, gastritis, presents with chest pain. Patient called for assistance to his home for chest pain. When EMS arrived the patient refused to speak with them. Patient continues to refused to speak here in the emergency room. Problem: Cirrhosis, prior hepatic encephalopathy History: Per EMS I have considered the following differential diagnoses: Hepatic encephalopathy, altered mental status, CVA, intracranial hemorrhage, UTI, intoxication Plan: The patient was speaking to EMS when they arrived, he abruptly stopped and would not answer any further questions. The patient will not speak here in the emergency room. I have to presume that this is aphasia, we will activate stroke protocol. EKG and troponin we will be obtained with a chest x-ray. I am also considering potential intracranial hemorrhage, the patient keeps grabbing his head when asked if he has a headache he shakes his head yes. EMS states he did say he fell, unclear when he did fall, to note there was no obvious sign of head trauma. This could also be hepatic encephalopathy, he could also be intoxicated. With screening labs we will add on liver function testing, drug screen, ethanol, screening a urinalysis as well. I have independently reviewed the following tests: Labs: Pancytopenia that has chronic, H&H trending down at 7.7 and 25.2, platelets 22, no left shift, no acute lab abnormality, troponin 24, delta troponin 36.9, 3rd troponin 42.4, 4th trop 41.7 , ethanol less than 10 U tox negative, urine not infected EKG: Normal sinus rhythm rate of 86, no active ischemic changes, subtle T-wave amplitude increase anteriorly, QTC 447 EKG #2 : Normal sinus rhythm rate of 86, no ischemic changes no ectopy QTC 447, unchanged from prior study Chest x-ray:Findings: Central vascular congestion. No consolidation, pleural effusion or pneumothorax. Normal cardiomediastinal silhouette. No acute abnormality in the imaged osseous structures. IMPRESSION: Mild volume overload. No pleural effusion. CT brain:Findings: No beckman-white dedifferentiation to suggest acute large territory infarct. No acute intracranial hemorrhage. No abnormal extra-axial collection. No midline shift. Basal cisterns are maintained. Normal ventricles. Mucous retention cyst in the left maxillary sinus. Bilateral mastoid air cells and middle ears are clear. Calvarium and visualized facial bones are intact. Right globe prosthesis. Left aphakia. IMPRESSION: No acute intracranial findings. CT angiogram head neck:IMPRESSION: No arterial occlusion or high-grade stenosis in the head or neck. No intracranial aneurysm. Lab Data 07/01/25 23:13 07/01/25 23:13 Labs: Lab Results 07/01/25 07/02/25 07/02/25 Range/Units 23:13 00:06 01:12 WBC 1.4 L (4.8-10.8) X10*3/uL RBC 3.15 L (4.60-5.80) X10*6/uL Hgb 7.7 L (14.0-18.0) g/dl Hct 25.2 L (42.0-52.0) % MCV 80.0 (80.0-98.0) fL MCH 24.4 L (27.0-33.0) pg MCHC 30.6 L (31.0-36.0) g/dl RDW 16.0 (11.0-16.0) % Plt Count 22 L (160-400) X10*3/uL MPV Not Reportable Immature Gran % (Auto) Cancelled Neut % (Auto) Cancelled Lymph % (Auto) Cancelled Mccreary % (Auto) Cancelled Eos % (Auto) Cancelled Baso % (Auto) Cancelled Lymph # (Auto) Cancelled Mccreary # (Auto) Cancelled Eos # (Auto) Cancelled Baso # (Auto) Cancelled Abs Immat Gran (auto) Cancelled Absolute Neuts (auto) Cancelled Absolute Nucleated RBC 0.000 (0.0-0.012) X10*3/uL Nucleated RBC % (auto) 0.0 (0.0-0.2) /100WBC Neutrophils % (Manual) 70 (45-73) % Band Neutrophils % 0 L (3-5) % Lymphocytes % (Manual) 26 (20-40) % Monocytes % (Manual) 4 (2-11) % Abs Neuts (Manual) 1.0 L (2.0-8.3) X10*3/uL Lymphocytes # (Manual) 0.4 L (1.2-4.9) X10*3/uL Monocytes # (Manual) 0.1 (0.1-1.2) X10*3/uL Platelet Estimate NORMAL (NORMAL) Plt Morphology Comment NORMAL RBC Morphology NOTED Tear Drop Cells 1+ (0-2) /OIF Ovalocytes 1+ (5-14) /OIF [place] Cells 1+ (0-2) /OIF Schistocytes 1+ (0-2) /OIF Smear Tech's Comments MANUAL DIFF Sodium 143 (135-145) mmol/L Potassium 4.4 (3.3-5.1) mmol/L Chloride 115 H (96-108) mmol/L Carbon Dioxide 23 (22-29) mmol/L Anion Gap 9 L (12-20) BUN 18 H (9-16) mg/dL Creatinine 0.95 (0.5-1.4) mg/dL Estim Creat Clear Calc 96.0 Estimated GFR > 60 Random Glucose 125 H (60-115) mg/dL Calcium 8.3 L (8.4-10.2) mg/dL Magnesium 2.0 (1.6-2.6) mg/dL Total Bilirubin 0.8 (0.0-1.0) mg/dL AST 40 H (5-37) U/L ALT 28 (0-40) U/L Alkaline Phosphatase 149 H (39-117) U/L Troponin I High Sens 24.2 36.9 H D (<3.5-35.0) ng/L Total Protein 6.1 L (6.5-8.0) g/dL Albumin 3.0 L (3.5-5.0) g/dL Urine Color Yellow Urine Appearance Clear Urine pH 6.5 (5.0-9.0) Ur Specific Cisco >= 1.030 H (1.005-1.025) Urine Protein Negative (Neg-Trace) mg/dL Urine Glucose (UA) Negative (Negative) mg/dL Urine Ketones Negative (Negative) mg/dL Urine Blood Negative (Negative) Urine Nitrite Negative (Negative) Ur Leukocyte Esterase Negative (Negative) Urine Opiates Screen Not Detected (Not Detect) Ur Buprenorphine Scrn Not Detected (Not Detect) ng/mL Ur Oxycodone Screen Not Detected (Not Detect) ng/mL Urine Methadone Screen Not Detected (Not Detect) ng/mL Urine Fentanyl Screen Not Detected (Not Detect) Ur Barbiturates Screen Not Detected (Not Detect) Ur Phencyclidine Scrn Not Detected (Not Detect) Ur Amphetamines Screen Not Detected (Not Detect) U Benzodiazepines Scrn Not Detected (Not Detect) Urine Cocaine Screen Not Detected (Not Detect) U Marijuana (THC) Screen Not Detected (Not Detect) Ethyl Alcohol < 10 mg/dL Influenza Type A (PCR) NEGATIVE (Negative) Influenza Type B (PCR) NEGATIVE (Negative) RSV RNA Qual (PCR) NEGATIVE (Negative) SARS-CoV-2 RNA (RT-PCR) NEGATIVE (Negative) 07/02/25 07/02/25 Range/Units 03:14 05:09 WBC (4.8-10.8) X10*3/uL RBC (4.60-5.80) X10*6/uL Hgb (14.0-18.0) g/dl Hct (42.0-52.0) % MCV (80.0-98.0) fL MCH (27.0-33.0) pg MCHC (31.0-36.0) g/dl RDW (11.0-16.0) % Plt Count (160-400) X10*3/uL MPV Immature Gran % (Auto) Neut % (Auto) Lymph % (Auto) Mccreary % (Auto) Eos % (Auto) Baso % (Auto) Lymph # (Auto) Mccreary # (Auto) Eos # (Auto) Baso # (Auto) Abs Immat Gran (auto) Absolute Neuts (auto) Absolute Nucleated RBC (0.0-0.012) X10*3/uL Nucleated RBC % (auto) (0.0-0.2) /100WBC Neutrophils % (Manual) (45-73) % Band Neutrophils % (3-5) % Lymphocytes % (Manual) (20-40) % Monocytes % (Manual) (2-11) % Abs Neuts (Manual) (2.0-8.3) X10*3/uL Lymphocytes # (Manual) (1.2-4.9) X10*3/uL Monocytes # (Manual) (0.1-1.2) X10*3/uL Platelet Estimate (NORMAL) Plt Morphology Comment RBC Morphology Tear Drop Cells /OIF Ovalocytes /OIF [place] Cells /OIF Schistocytes /OIF Smear Tech's Comments Sodium (135-145) mmol/L Potassium (3.3-5.1) mmol/L Chloride (96-108) mmol/L Carbon Dioxide (22-29) mmol/L Anion Gap (12-20) BUN (9-16) mg/dL Creatinine (0.5-1.4) mg/dL Estim Creat Clear Calc Estimated GFR Random Glucose (60-115) mg/dL Calcium (8.4-10.2) mg/dL Magnesium (1.6-2.6) mg/dL Total Bilirubin (0.0-1.0) mg/dL AST (5-37) U/L ALT (0-40) U/L Alkaline Phosphatase (39-117) U/L Troponin I High Sens 42.4 H 41.7 H (<3.5-35.0) ng/L Total Protein (6.5-8.0) g/dL Albumin (3.5-5.0) g/dL Urine Color Urine Appearance Urine pH (5.0-9.0) Ur Specific Cisco (1.005-1.025) Urine Protein (Neg-Trace) mg/dL Urine Glucose (UA) (Negative) mg/dL Urine Ketones (Negative) mg/dL Urine Blood (Negative) Urine Nitrite (Negative) Ur Leukocyte Esterase (Negative) Urine Opiates Screen (Not Detect) Ur Buprenorphine Scrn (Not Detect) ng/mL Ur Oxycodone Screen (Not Detect) ng/mL Urine Methadone Screen (Not Detect) ng/mL Urine Fentanyl Screen (Not Detect) Ur Barbiturates Screen (Not Detect) Ur Phencyclidine Scrn (Not Detect) Ur Amphetamines Screen (Not Detect) U Benzodiazepines Scrn (Not Detect) Urine Cocaine Screen (Not Detect) U Marijuana (THC) Screen (Not Detect) Ethyl Alcohol mg/dL Influenza Type A (PCR) (Negative) Influenza Type B (PCR) (Negative) RSV RNA Qual (PCR) (Negative) SARS-CoV-2 RNA (RT-PCR) (Negative) Critical Care Time Critical Care Time Critical Care Time: Yes Total Critical Care Time: 35 Attestation: Maynor Christensen PA-C personally performed 35 minutes of critical care time not including lines and procedures; stroke protocol Discharge Plan Discharge Clinical Impression: Chest pain Patient Disposition: Home, Self-Care Instructions: Noncardiac Chest Pain (ED) Additional Instructions: You had extensive workup in the emergency room overnight. In regard to your chest pain, you had multiple cardiac enzymes obtained that remained stable and unchanged. There were no concerning changes on 2 EKGs. Your chest x-ray is at your baseline. You initially would not speak to staff members upon arrival, you had an assessment to rule out potential stroke. Your assessment was completely negative. It is unclear why you were unwilling to communicate with staff members in the emergency room. Follow up with your primary care within a week. Prescriptions: No Action (DME) walker Misc See Rx Instructions .Route Qty: 1 0RF Rx Instructions: As directed lactulose 10 gram/15 mL solution 40 g PO BID (DME) blood pressure test kit-large [Omron BP Monitor-3 Series] Kit See Rx Instructions .ROUTE DAILY Qty: 1 Rx Instructions: As directed Xifaxan 550 mg tablet 550 mg PO BID 90 Days Qty: 180 0RF amlodipine 5 mg tablet 5 mg PO DAILY Qty: 90 0RF Print Language: Swazi
[2025-07-02 01:36] LABS: Troponin-I High Sensitivity 36.9 ng/L (<3.5-35.0)
[2025-07-02 01:51] VITALS: BP 134/49; PULSE 69; RESP 17; TEMP 36; O2SAT 97
[2025-07-02 03:43] LABS: Troponin-I High Sensitivity 42.4 ng/L (<3.5-35.0)
--- NOTE | 2025-07-02 03:46 | ECG_ITS ---
Test Reason : CHEST PAIN Blood Pressure : */* mmHG Vent. Rate : 70 BPM Atrial Rate : 70 BPM P-R Int : 150 ms QRS Dur : 86 ms QT Int : 434 ms P-R-T Axes : 53 31 66 degrees QTcB Int : 468 ms Normal sinus rhythm Normal ECG When compared with ECG of 01-Jul-2025 22:30, No significant change was found Referred By: Bhavana Christensen Electronically Signed By: POP DAVIES MD
[2025-07-02 05:32] LABS: Troponin-I High Sensitivity 41.7 ng/L (<3.5-35.0)
[2025-07-02 06:00] VITALS: BP 128/51; PULSE 74; RESP 18; TEMP 36; O2SAT 94
[2025-07-02 06:06] VITALS: BP 128/51; PULSE 74; RESP 18; TEMP 36; O2SAT 94
== END 2025-07-02 06:07 | disposition home or self-care (01) ==
PROVIDERS: Physician Assistant Medical; Emergency Provider Emergency Medicine
DX: R07.89 Other chest pain (principal); I10 Essential (primary) hypertension; D50.9 Iron deficiency anemia, unspecified; K74.60 Unspecified cirrhosis of liver; D61.818 Other pancytopenia; Z79.899 Other long term (current) drug therapy
CPT/HCPCS: 36415; 70450; 70496; 70498; 71045; 80053; 80307; 81003; 83735; 84484; 85007; 85025; 85027; 87637; 93005; 99285; Q9967

== ENCOUNTER → 2025-07-01 22:30 | Outpatient (BNV) | payer MEDICAID, SELFPAY | PROVIDERS: Emergency Provider Emergency Medicine; Visit Provider Internal Medicine Cardiovascular Disease | DX: R07.9 Chest pain, unspecified (principal) | CPT/HCPCS: 93010 ==

== ENCOUNTER → 2025-07-01 22:43 | Outpatient (BNV) | payer MEDICAID, SELFPAY | PROVIDERS: Emergency Provider Emergency Medicine; Visit Provider Student in an Organized Health Care Education/Training Program | DX: R47.01 Aphasia (principal); R41.82 Altered mental status, unspecified; R05.9 Cough, unspecified; R07.9 Chest pain, unspecified | CPT/HCPCS: 70450; 70496; 70498; 71045 ==

== ENCOUNTER → 2025-07-02 03:46 | Outpatient (BNV) | payer MEDICAID, SELFPAY | PROVIDERS: Emergency Provider Emergency Medicine; Visit Provider Internal Medicine Cardiovascular Disease | DX: R07.9 Chest pain, unspecified (principal) | CPT/HCPCS: 93010 ==

== ENCOUNTER 2025-07-12 19:29 | Inpatient (IN) | payer MEDICAID, SELFPAY ==
--- NOTE | ~2025-07-12 | CT_ITS ---
CLINICAL HISTORY: falls, pain, AMS CT abdomen and pelvis without contrast Comparison: 01/21/2025 Findings: Lung bases clear. No acute bony abnormalities. Degenerative change spine and hips. Portacaval shunt. No focal liver abnormality. Splenomegaly without focal abnormality. Pancreas and adrenal glands unremarkable. Gallbladder within normal limits. No bilateral renal stone or hydronephrosis. No focal renal abnormality or ureteral dilation. No evidence for aortic aneurysm. No free fluid or adenopathy in the pelvis. No diverticulitis. Appendix unremarkable. Impression: No acute processes This document has been electronically signed by: Teddy Lott MD on 07/13/2025 00:09:00
--- NOTE | ~2025-07-12 | CT_ITS ---
CLINICAL HISTORY: falls, AMS CT cervical spine without contrast Comparison: 04/11/2025 Findings: No acute fracture or dislocation. Posterior alignment is normal. Moderate degenerative change. No radiopaque foreign bodies. Impression: No acute processes This document has been electronically signed by: Teddy Lott MD on 07/13/2025 00:12:13
--- NOTE | ~2025-07-12 | CT_ITS ---
CLINICAL HISTORY: AMS, falls CT head without contrast Comparison: 07/01/2025 Findings: No acute intracranial fluid collection or hematoma. Mild chronic ischemic white matter disease. No acute process in sinuses or mastoids. No acute bony abnormality. Right ocular prosthesis. Impression: No acute intracranial process This document has been electronically signed by: Teddy Lott MD on 07/13/2025 00:02:50
--- NOTE | ~2025-07-12 | CT_ITS ---
CLINICAL HISTORY: falls, pain CT chest without contrast Comparison: 11/12/2024 Findings: Lung chino are clear without acute infiltrates. No significant mediastinal adenopathy. No significant free pleural fluid. No significant focal bony abnormalities. Impression: No acute processes This document has been electronically signed by: Teddy Lott MD on 07/13/2025 00:10:42
[2025-07-12 19:27] VITALS: BP 224/106; PULSE 88; O2SAT 99
[2025-07-12 19:29] VITALS: BP 155/49; PULSE 82; RESP 16; TEMP 36.6; O2SAT 98; BMI 29.6
--- NOTE | 2025-07-12 19:36 | ECG_ITS ---
Test Reason : DIZZINESS Blood Pressure : */* mmHG Vent. Rate : 75 BPM Atrial Rate : 75 BPM P-R Int : 148 ms QRS Dur : 84 ms QT Int : 412 ms P-R-T Axes : 40 17 69 degrees QTcB Int : 460 ms Normal sinus rhythm Normal ECG When compared with ECG of 02-Jul-2025 03:57, No significant change was found Referred By: Generic ED Physician Electronically Signed By: Slick Hoover
[2025-07-12 20:43] LABS: Alanine Aminotransferase 26 U/L (0-40); Albumin Level 3.1 g/dL (3.5-5.0); Alkaline Phosphatase 121 U/L (39-117); Anion Gap 11 (12-20); Aspartate Amino Transferase 58 U/L (5-37); Blood Urea Nitrogen 16 mg/dL (9-16); Calcium 8.3 mg/dL (8.4-10.2); Carbon Dioxide 20 mmol/L (22-29); Chloride 116 mmol/L (96-108); Creatinine Clr Calc Pharmacy 121.1; Estimated Glomerular Filt Rate > 60; Potassium 4.5 mmol/L (3.3-5.1); Sodium 142 mmol/L (135-145); Total Protein 6.5 g/dL (6.5-8.0)
--- OUTSIDE RECORDS SUMMARY | 2025-07-12 20:45 | XMS_ITS ---
Author Organization [employer] Address [address] [facility] [address] [place] [address] Care Team Providers Care Senior Technical Support Engineer Name Role Phone Leta Soto MD Primary Care Pro vider Yajaira Antonio Unavailable [facility] Complex Status:Outreach In Progress (Enrolling) Start date:11/27/2024 Enrollment reason:Referred by provider Overview PCP Referral- 63-year-old male with HCV cirrhosis and multiple hospitalizations for hepatic encephalopathy with ongoing homelessness, poor health literacy. Needs support managing specialist appointments. Please outreach for enrollment. Case Team Name Relationship Phone Chata Puente(Responsible Staff) [phone] Continued Care and Services Coordination
--- OUTSIDE RECORDS SUMMARY | 2025-07-12 20:45 | XMS_ITS | Encounter Summary ---
Author Organization [employer] Address [address] [facility] [address] [place] [address] Care Team Providers Care Clay Modeler Name Role Phone Leta Soto MD Primary Care Pro vider Yajaira Antonio Unavailable Encounter Details Date Type Department Care Team (Late st Contact Info) Description 12/17/2023 Orders Only [facility] MED & PEDS [address] [place] [address] Tatyana Mosquera FNP [address] [place] [address] Social History Tobacco Use Types Packs/Day Years [...] Care Team (Late st Contact Info) Description 09/24/2025 10:15 AM EST Office Visit [facility] MEDICINE [address] [place] [phone] Leta Soto MD [address] [place] [phone] documented as of this encounter Goals Goal [...] documented as of this encounter Care Teams Clay Modeler Relationship Specialty Start Date End Date Leta Soto MD [address] [place] [phone] PCP - General Internal Medicine 04/11/23 Yajaira Antonio [address] [place] [address] Gastroenterology 09/04/24 [facility] Home Health 01/28/25 documented as of this encounter
--- OUTSIDE RECORDS SUMMARY | 2025-07-12 20:45 | XMS_ITS | Clinical Summary ---
Author Organization [employer] Address [address] [facility] [address] [place] [address] Care Team Providers Care Research Associate Quality Control Qc Name Role Phone Leta Soto MD Primary [...] 11 5 11/25/19 26 Active Blood Pressure kitIndications:Hy pertension, unspecified type [...] PLAN: 1. Follow up with [facility]: Not recommended for follow-up 2. Patient goal is be connected to services 3. Behavioral Recommendations a. Patient will engage in service once established b. Patient may return to [facility] for medical needs until a PCP [...] Encounters Date Type Department Care Team Description 07/09/2025 Telephone [facility] [address] [place] [address] [phone] Leta Soto MD Letter for School/Work 07/02/2025 Orders Only GENERIC EXTERNAL DATA DEPARTMENT Provider, Generic External Data 07/01/2025 Orders Only GENERIC EXTERNAL DATA DEPARTMENT Provider, Generic External Data 07/01/2025 Telephone [facility] [address] [place] [address] [phone] Leta Soto MD 06/25/2025 Orders Only [facility] External Provider, [facility] 06/25/2025 Telephone [facility] [address] [place] [address] [phone] Leta Soto MD FYI 06/12/2025 Telephone [facility] [address] [place] [address] [phone] Leta Soto MD gsssi 06/11/2025 Telephone [facility] [address] [place] [address] [phone] Yamel Khanna RN 06/09/2025 9:45 AM EDT Office Visit [facility] [address] [facility] [place] [address] Leta Soto MD Dizziness (Primary Dx); Essential hypertension; Other cirrhosis of liver (CMS/HCC); Hepatic encephalopathy (CMS/HCC); Healthcare maintenance 06/09/2025 Orders Only GENERIC EXTERNAL DATA DEPARTMENT Provider, Generic External Data 06/09/2025 Telephone [facility] [address] [facility] [place] [address] Leta Soto MD ER Follow-up 06/09/2025 Travel 06/08/2025 Telephone [facility] [address] [place] [address] [phone] Leta Soto MD chart prep 06/04/2025 Orders Only GENERIC EXTERNAL DATA DEPARTMENT Provider, Generic External Data 05/30/2025 10:40 AM EDT Office Visit [facility] [address] [place] [address] [phone] Victoriano Beyer MD Oral ulcer (Primary Dx) 05/30/2025 Travel 05/22/2025 Orders Only [facility] External Provider, [facility] 05/21/2025 Orders Only GENERIC EXTERNAL DATA DEPARTMENT Provider, Generic External Data 05/20/2025 Orders Only GENERIC EXTERNAL DATA DEPARTMENT Provider, Generic External Data 05/15/2025 Orders Only GENERIC EXTERNAL DATA DEPARTMENT Provider, Generic External Data 04/27/2025 Orders Only [facility] [address] [place] [address] [phone] Veronica Miles, CHANDU 04/27/2025 Refill [facility] [address] [facility] [place] [address] Leta Soto MD 04/22/2025 Telephone [facility] [address] [place] [address] [phone] Sadia Denny, roll tender Changes 04/22/2025 Orders Only [facility] [address] [facility] [place] [address] Leta Soto MD 04/21/2025 Orders Only [facility] [address] [place] [address], [place] [address] Imelda Pfeiffer, CHANDU Healthcare maintenance 04/20/2025 Telephone [facility] [address] [place] [address] Leta Soto MD FYI 04/17/2025 9:20 AM EDT Office Visit [facility] [address] [place] [address] Leta Forte MD Essential hypertension (Primary Dx); Erectile dysfunction, unspecified erectile dysfunction type 04/17/2025 Travel 04/16/2025 Refill [facility] [address] [place] [address] Leta Soto MD 04/14/2025 Telephone [facility] [address] [place] [address] [phone] Leta Soto MD FLOOR HAND Services (I called the patient at [phone], regarding his request for FLOOR HAND services, and reached a recording stating that the number is not in service. I then called [phone], and he stated that he needs assistance with transferring and walking, because he has swelling in his legs, and falls frequently. He also needs assistance with getting to appointments. I informed him that a associate financial representative from [facility] would be in contact with him, to schedule an evaluation. He is currently living at the [facility],) 04/13/2025 Results Follow-Up [facility] [address] [place] [phone] Cervical Spine w/o [...] Description 09/24/2025 10:15 AM EST Office Visit [facility] [address] [place] [address] [phone] Leta Soto MD [address] [place] [address] Health Maintenance Due Date Last Done Comments CT Colonography 1960 Colonoscopy 1960 Colorectal Cancer Screening 1960 FIT DNA/Cologuard 1961 FIT 1961 FOBT 1960 Sigmoidoscopy 1960 Hepatitis A Vaccines (1 of 2 - Risk 2-dose series) 1980 Zoster Vaccines (1 of 2) 12/03/2011 RSV Patients and Patients Aged 60 years or older (1 - Risk 60-74 years 1-dose series) 2021 COVID-19 Vaccine ( - 2023-2 5 season) 2025 Influenza Vaccine [...] Diagnosis Comments HIGH SENSITIVITY TROPONIN I Routine 07/02/2025 5:09 AM EDT HIGH SENSITIVITY TROPONIN I Routine 07/02/2025 3:14 AM EDT HIGH SENSITIVITY TROPONIN I Routine 07/02/2025 1:12 AM EDT CTA HEAD STROKE W AND WO CONTRAST Routine 07/02/2025 12:34 AM EDT XR CHEST 1 VIEW Routine 07/02/2025 12:22 AM EDT URINALYSIS WITH REFLEX MICROSCOPIC Routine 07/02/2025 12:06 AM EDT DRUG MONITOR, PANEL 1, SCREEN, URINE Routine 07/02/2025 12:06 AM EDT SLIDE REVIEW Routine 07/01/2025 11:13 PM EDT COMPLETE BLOOD COUNT MAN DIF Routine 07/01/2025 11:13 PM EDT ETHANOL Routine 07/01/2025 11:13 PM EDT MAGNESIUM Routine 07/01/2025 11:13 PM EDT COMPREHENSIVE METABOLIC PANEL Routine 07/01/2025 11:13 PM EDT CBC WITH AUTO DIFFERENTIAL Routine 07/01/2025 11:13 PM EDT HIGH SENSITIVITY TROPONIN I Routine 07/01/2025 11:13 PM EDT SARS COV2/INFLUENZA A/B AND RSV RNA QL NAAT Routine 07/01/2025 11:13 PM EDT XR HUMERUS LEFT Routine 06/25/2025 11:38 AM [...] Relevant to Health Maintenance Results * (ABNORMAL) High Sensitivity Troponin I (07/02/2025 5:09 AM EDT) Only the most recent of7 resultswithin the time period is included. TROPONIN I HIGH SENSITIVITY 41.7(H) <3.5 - 35.0 ng/L [facility] Comment:The Clifford high sens itivity Troponin-I results should beused in conjunction with other diagnostic information suchas ECG, clinical observations and information, and patientsymptoms to aid in the diagnosis of CA. 07/02/2025 5:09 AM EDT 07/02/2025 5:12 AM EDT us Generic External Data Provider LAB BLOOD ORDERAB LES Final Result [facility] [address] [place] [address] [phone] * CTA Head Stroke w/ and w/o Contrast (07/02/2025 12:34 AM EDT) Anatomical Region Laterality Modality Computed Tomogra phy 07/02/2025 12:3 4 AM EDT Narrative 07/02/2025 12:35 AM EDT [address] [address] [address] Scan Report Signed Patient: Adelso Beebe MR#: [id number] : 1960 Acct:[id number] Age/Sex: 64 / M ADM Date: 07/01/25 Loc: HO.ED Attending Dr: Ordering Physician: Bhavana Christensen Date of Service: 07/01/25 Procedure(s): CT angio head neck STROKE Accession Number(s): [id number] cc: Bhavana Christensen; [facility] Report Number: [id number]: Total DLP = 681.00 mGy-cm Reason for Exam: acute aphasia CLINICAL HISTORY: acute aphasia CT angiography head and neck with contrast. 3D Postprocessing. Comparison: Same-day noncontrast CT head. Findings: Examination degraded by motion artifact and suboptimal bolus timing. Accounting for this: CT HEAD WO CONTRAST: See recent report. CT ANGIO HEAD W CONTRAST: Right ICA: Intracranial ICA unremarkable. Left ICA: Intracranial ICA unremarkable. MCA: Unremarkable bilaterally. MUSTAPHA: Anatomic variant triplicate MUSTAPHA. Otherwise, unremarkable. Likewise in the shower solving in skin FLOOR HAND: Persistent origin of the right FLOOR HAND. Moderate focal narrowing in the distal right P2 segment (series 8, image 81). Vertebrobasilar system: Left dominant vertebral artery. Early takeoff of the right PICA, with small caliber of the post-PICA right V4 segment. Venous: No evidence of intracranial venous thrombosis. CT ANGIO NECK W CONTRAST: Aortic arch: Conventional three vessel anatomy. No significant stenosis or ectasia. Right carotids: Common carotid artery unremarkable. Carotid bulb unremarkable. Cervical ICA unremarkable. Left carotids: Common carotid artery unremarkable. Carotid bulb unremarkable. Cervical ICA unremarkable. Vertebral arteries: Unremarkable bilaterally. Moderate multilevel spondylosis in the cervical spine. Partially imaged lung apices demonstrating pulmonary edema and biapical scarring. IMPRESSION: No arterial occlusion or high-grade stenosis in the head or neck. No intracranial aneurysm. This document has been electronically signed by: Laci Vasquez MD on 07/02/2025 00:34:05 Dictated By: Laci Vasquez MD Signed By: <Electronically signed by Laci Vasquez MD in OV> 07/02/2534 DD/ TD/TT: 07/02/2533 Aviation Mechanic: Procedure Note Donotuseinterpreter, Image - 07/02/[address] [address] [address] Scan Report Signed Patient: Adelso BeebeMR#: [id number] : 2Acct:[id number] Age/Sex: 64 / MADM Date: 07/01/25 Loc: HO.ED Attending Dr: Ordering Physician: Bhavana Christensen Date of Service: 07/01/25 Procedure(s): CT angio head neck STROKE Accession Number(s): [id number] cc: Bhavana Christensen; [facility] Report Number: [id number]: Total DLP = 681.00 mGy-cm Reason for Exam: acute aphasia CLINICAL HISTORY: acute aphasia CT angiography head and neck with contrast. 3D Postprocessing. Comparison: Same-day noncontrast CT head. Findings: Examination degraded by motion artifact and suboptimal bolus timing. Accounting for this: CT HEAD WO CONTRAST: See recent report. CT ANGIO HEAD W CONTRAST: Right ICA: Intracranial ICA unremarkable. Left ICA: Intracranial ICA unremarkable. MCA: Unremarkable bilaterally. MUSTAPHA: Anatomic variant triplicate MUSTAPHA. Otherwise, unremarkable. Likewise in the shower solving in skin FLOOR HAND: Persistent origin of the right FLOOR HAND. Moderate focal narrowing in the distal right P2 segment (series 8, image 81). Vertebrobasilar system: Left dominant vertebral artery. Early takeoff of the right PICA, with small caliber of the post-PICA right V4 segment. Venous: No evidence of intracranial venous thrombosis. CT ANGIO NECK W CONTRAST: Aortic arch: Conventional three vessel anatomy. No significant stenosis or ectasia. Right carotids: Common carotid artery unremarkable. Carotid bulb unremarkable. Cervical ICA unremarkable. Left carotids: Common carotid artery unremarkable. Carotid bulb unremarkable. Cervical ICA unremarkable. Vertebral arteries: Unremarkable bilaterally. Moderate multilevel spondylosis in the cervical spine. Partially imaged lung apices demonstrating pulmonary edema and biapical scarring. IMPRESSION: No arterial occlusion or high-grade stenosis in the head or neck. No intracranial aneurysm. This document has been electronically signed by: Laci Vasquez MD on 07/02/2025 00:34:05 Dictated By: Laci Vasquez MD Signed By: <Electronically signed by Laci Vasquez MD in OV> 07/02/2534 DD/ TD/TT: 07/02/2533 Aviation Mechanic: us [facility] External Provider IMG CT PROCEDURES Edited Result - Final * XR Chest 1 View (07/02/2025 12:22 AM EDT) Only the most recent of2 resultswithin the time period is included. Anatomical Region Laterality Modality Chest Radiographic Susy ging 07/02/2025 12:2 2 AM EDT Narrative 07/02/2025 12:24 AM EDT [address] [address] XRay Report Signed Patient: Adelso Beebe MR#: [id number] : 1960 Acct:[id number] Age/Sex: 64 / M ADM Date: 07/01/25 Loc: HO.ED Attending Dr: Ordering Physician: Bhavana Christensen Date of Service: 07/01/25 Procedure(s): XR chest 1V Accession Number(s): [id number] cc: Bhavana Christensen; [facility] Reason for Exam: cough/pain CLINICAL HISTORY: cough pain 1 view chest x-ray Comparison: Chest radiograph 06/09/2025, 05/16/2025 Findings: Central vascular congestion. No consolidation, pleural effusion or pneumothorax. Normal cardiomediastinal silhouette. No acute abnormality in the imaged osseous structures. IMPRESSION: Mild volume overload. No pleural effusion. This document has been electronically signed by: Laci Vasquez MD on 07/02/2025 00:22:02 Dictated By: Laci Vasquez MD Signed By: <Electronically signed by Laci Vasquez MD in OV> 07/02/2522 DD/ TD/TT: 07/02/2521 Aviation Mechanic: Procedure Note Donotuseinterpreter, Image - 07/02/[address] [address] XRay Report Signed Patient: Adelso BeebeMR#: [id number] : 1960cct:[id number] Age/Sex: 64 / MADM Date: 07/01/25 Loc: HO.ED Attending Dr: Ordering Physician: Bhavana Christensen Date of Service: 07/01/25 Procedure(s): XR chest 1V Accession Number(s): [id number] cc: Bhavana Christensen; [facility] Reason for Exam: cough/pain CLINICAL HISTORY: cough pain 1 view chest x-ray Comparison: Chest radiograph 06/09/2025, 05/16/2025 Findings: Central vascular congestion. No consolidation, pleural effusion or pneumothorax. Normal cardiomediastinal silhouette. No acute abnormality in the imaged osseous structures. IMPRESSION: Mild volume overload. No pleural effusion. This document has been electronically signed by: Laci Vasquez MD on 07/02/2025 00:22:02 Dictated By: Laci Vasquez MD Signed By: <Electronically signed by Laci Vasquez MD in OV> 07/02/253 DD/ TD/TT: 07/02/2521 Aviation Mechanic: [facility] External Provider IMG XR PROCEDURES Edited Result - Final * Drug Monitoring, Panel 1, Screen, Urine (07/02/2025 12:06 AM EDT) Only the most recent of2 resultswithin the time period is included. Opiate Screen Urine Not Detected Not Detect [facility] Comment:Opiate cut-off is 30 0 ng/mL.Positive results are unconfirmed and should not be used fornon-medical purposes. Barbiturates, Urine Not Detected Not Detect [facility] Comment:Barbiturate cut-off is 200 ng/mL.Positive results are unconfirmed and should not be used fornon-medical purposes. Phencyclidine Screen Urine Not Detected Not Detect [facility] Comment:Phencyclidine cut-of f is 25 ng/mL.Positive results are unconfirmed and should not be used fornon-medical purposes. Amphetamine Screen Urine Not Detected Not Detect [facility] Comment:Amphetamine cut-off is 1000 ng/mL.Positive results are unconfirmed and should not be used fornon-medical purposes. Benzodiazepines Screen Urine Not Detected Not Detect [facility] Comment:Benzodiazepine cut-o ff is 200 ng/mL.Positive results are unconfirmed and should not be used fornon-medical purposes. Cocaine Screen Urine Not Detected Not Detect [facility] Comment:Cocaine cut-off is 3 00 ng/mL.Positive results are unconfirmed and should not be used fornon-medical purposes. Cannabinoid Screen Urine Not Detected Not Detect [facility] Comment:Cannabinoid cut-off is 50 ng/mL.Positive results are unconfirmed and should not be used fornon-medical purposes. Methadone Screen, Urine Not Detected Not Detect ng/mL [facility] Comment:Methadone cut-off is 300 ng/mL.Positive results are unconfirmed and should not be used fornon-medical purposes. FENTANYL URINE Not Detected Not Detect [facility] Comment:Fentanyl cut-off is 1 ng/mL.Positive results are unconfirmed and should not be used fornon-medical purposes. Oxycodone Urine Screen Not Detected Not Detect ng/mL [facility] Comment:Oxycodone cut-off is 100 ng/mL.Positive results are unconfirmed and should not be used fornon-medical purposes. Buprenorphine Screen Not Detected Not Detect ng/mL [facility] Comment:Buprenorphine cut-of f is 5 ng/mL.Positive results are unconfirmed and should not be used fornon-medical purposes. 07/02/2025 12:0 6 AM EDT 07/02/2025 12:22 AM EDT Generic External Data Provider LAB URINE ORDERAB LES Final Result [facility] [address] [place] [phone] * (ABNORMAL) Urinalysis w/reflex microscopic (07/02/2025 12:06 AM EDT) Only the most recent of3 resultswithin the time period is included. Color Urine Yellow [facility] Appearance Urine Clear [facility] PH 6.5 5.0 - 9.0 [facility] Glucose Urine UA Negative Negative mg/dL [facility] Urine Blood Negative Negative [facility] Specific [place] - Urine >=1.030(H) 1.005 - 1.025 [facility] Urine Protein Negative Neg-Trace mg/dL [facility] Urine Ketones Negative Negative mg/dL [facility] Nitrite Urine Negative Negative [facility] Leukocyte Esterase Urine Negative Negative [facility] 07/02/2025 12:0 6 AM EDT 07/02/2025 12:38 AM EDT Narrative [facility] - 07/02/2025 12:45 AM EDT Urine, Clean Catch Generic External Data Provider LAB URINE ORDERAB LES Final Result Performing Organization Address City/[facility]/ZIP Co de Phone Number [facility] [address] [place] [address] [phone] * Slide Review (07/01/2025 11:13 PM EDT) Only the most recent of5 resultswithin the time period is included. Slide Review MANUAL DIFF [facility] 07/01/2025 11:1 3 PM EDT 07/01/2025 11:21 PM EDT us Generic External Data Provider LAB BLOOD ORDERAB LES Final Result Performing Organization Address City/[facility]/ZIP Co de Phone Number [facility] [address] [place] [phone] [phone] * (ABNORMAL) Complete Blood Count Manual Diff (07/01/2025 11:13 PM EDT) White Blood Count 1.4(L) 4.8 - 10.8 X10*3/uL [facility] Red Blood Count 3.15(L) 4.60 - 5.80 X10*6/uL [facility] Hemoglobin 7.7(L) 14.0 - 18.0 g/dl [facility] Hematocrit 25.2(L) 42.0 - 52.0 % [facility] Mean Corpuscular Volume 80.0 80.0 - 98.0 fL [facility] Mean Corpuscular Hemoglobin 24.4(L) 27.0 - 33.0 pg [facility] Mean Corpuscular HGB Conc 30.6(L) 31.0 - 36.0 g/dl [facility] Red Cell Distribution Width 16.0 11.0 - 16.0 % [facility] Platelet Count 22(L) 160 - 400 X10*3/uL [facility] NRBC Pct Auto 0.0 0.0 - 0.2 /100WBC [facility] NRBC Abs Auto 0.000 0.0 - 0.012 X10*3/uL [facility] Neutrophils % Manual 70 45 - 73 % [facility] Band Neutrophils Percent 0(L) 3 - 5 % [facility] Lymphocytes Percent Manual 26 20 - 40 % [facility] Monocytes Percent Manual 4 2 - 11 % [facility] NEUTROPHILS ABSOLUTE MANUAL 1.0(L) 2.0 - 8.3 X10*3/uL [facility] LYMPHOCYTES ABSOLUTE MANUAL 0.4(L) 1.2 - 4.9 X10*3/uL [facility] MONOCYTES ABSOLUTE MANUAL 0.1 0.1 - 1.2 X10*3/uL [facility] Platelet Estimate NORMAL NORMAL [facility] Platelet Morphology Comment NORMAL [facility] RBC Morphology NOTED [facility] Tear Drop Cells 1+ (0-2) /OIF [facility] Ovalocytes 1+ (5-14) /F [facility] [place] Cells 1+ (0-2) /[facility] Schistocytes 1+ (0-2) /[facility] 07/01/2025 11:1 3 PM EDT 07/01/2025 11:21 PM EDT us Generic External Data Provider LAB BLOOD ORDERAB LES Final Result [facility] [address] [place] [phone] * Ethanol (07/01/2025 11:13 PM EDT) Only the most recent of3 resultswithin the time period is included. ETHANOL (MG/DL) IN SER/PLAS <10 mg/dL [facility] Comment:Serum/plasma ethanol results are to be used formedical/treatment purposes only. 07/01/2025 11:1 3 PM EDT 07/01/2025 11:21 PM EDT us Generic External Data Provider LAB BLOOD ORDERAB LES Final Result [facility] [address] [place] [phone] * SARS-CoV-2 RNA, Influenza A/B, and RSV RNA, Ql NAAT (07/01/2025 11:13 PM EDT) Only the most recent of2 resultswithin the time period is included. Influenza A PCR NEGATIVE Negative [facility] Influenza B PCR NEGATIVE Negative [facility] Resp Syncy Virus RNA Qual PCR NEGATIVE Negative [facility] SARS COV2 PCR NEGATIVE Negative [facility] Comment:All test results mus t [...] use by authorized laboratories.Testing performed on the [employer] GeneXpert utilizingreal-time RT-PCR.All SARS CoV2 and positive influenza A/B results arereported to [facility]. 07/01/2025 11:1 3 PM EDT 07/01/2025 11:21 PM EDT us Generic External Data Provider LAB MICROBIOLOGY - GENERAL ORDERABLES Final Result [facility] [address] [place], [place] [phone] * (ABNORMAL) CBC auto differential (07/01/2025 11:13 PM EDT) Only the most recent of6 resultswithin the time period is included. White Blood Count 1.4(L) 4.8 - 10.8 X10*3/uL [facility] Red Blood Count 3.15(L) 4.60 - 5.80 X10*6/uL [facility] Hemoglobin 7.7(L) 14.0 - 18.0 g/dl [facility] Hematocrit 25.2(L) 42.0 - 52.0 % [facility] Mean Corpuscular Volume 80.0 80.0 - 98.0 fL [facility] Mean Corpuscular Hemoglobin 24.4(L) 27.0 - 33.0 pg [facility] Mean Corpuscular HGB Conc 30.6(L) 31.0 - 36.0 g/dl [facility] Red Cell Distribution Width 16.0 11.0 - 16.0 % [facility] Platelet Count 22(L) 160 - 400 X10*3/uL [facility] Neutrophils Percent Auto 59.0 45 - 73 % [facility] Imm Gran Pct Auto 0.0 0.0 - 0.4 % [facility] Lymphocytes Percent Auto 29.2 20 - 40 % [facility] Monocytes Percent Auto 9.7 2 - 11 % [facility] Eosinophils Percent Auto 1.4 0 - 4 % [facility] Basophils Percent Auto 0.7 0 - 2 % [facility] NRBC Pct Auto 0.0 0.0 - 0.2 /100WBC [facility] Neutrophils Absolute Auto 0.9(L) 2.0 - 8.3 x10*3/uL [facility] Imm Gran Abs Auto 0.00 0.00 - 0.03 X10*3/uL [facility] Lymphocytes Absolute Auto 0.4(L) 1.2 - 4.9 X10*3/uL [facility] Monocytes Absolute Auto 0.1 0.1 - 1.2 X10*3/uL [facility] Eosinophils Absolute Auto 0.0 0.0 - 0.4 X10*3/uL [facility] Basophils Absolute Auto 0.0 0.0 - 0.2 X10*3/uL [facility] NRBC Abs Auto 0.000 0.0 - 0.012 X10*3/uL [facility] 07/01/2025 11:1 3 PM EDT 07/01/2025 11:21 PM EDT Generic External Data Provider LAB BLOOD ORDERAB LES Edited Result - Final Performing Organization Address [facility] Co de Phone Number [facility] [address] [place] [phone] * Magnesium (07/01/2025 11:13 PM EDT) Only the most recent of2 resultswithin the time period is included. Magnesium 2.0 1.6 - 2.6 mg/dL [facility] 07/01/2025 11:1 3 PM EDT 07/01/2025 11:21 PM EDT Generic External Data Provider LAB BLOOD ORDERAB LES Final Result Performing Organization Address [facility] de Phone Number [facility] [address] [place] [phone] * (ABNORMAL) Comprehensive Metabolic Panel (07/01/2025 11:13 PM EDT) Only the most recent of4 resultswithin the time period is included. Sodium 143 135 - 145 mmol/L [facility] Potassium 4.4 3.3 - 5.1 mmol/L [facility] Chloride 115(H) 96 - 108 mmol/L [facility] Carbon Dioxide 23 22 - 29 mmol/L [facility] Anion Gap 9(L) 12 - 20 [facility] Urea Nitrogen (BUN) 18(H) 9 - 16 mg/dL [facility] Creatinine, Serum 0.95 0.5 - 1.4 mg/dL [facility] Creatinine Clr Calc Pharmacy 96.0 [facility] Comment:eGFR (calculated fro m the MDRD study equation) and eCrCl(calculated from the Cockcroft-Gault equation) are based ondifferent parameters and may not yield comparable results.If eCrCl result is absurd, please check patient'sheight/weight. Estimated Glomerular Filt Rate >60 [facility] Comment:Chronic Kidney Disea se: Estimated GFR < 60 mL/min/1.39a0Qqxuan Kidney Disease: Estimated GFR < 15 mL/min/1.73m2 Glucose 125(H) 60 - 115 mg/dL [facility] Calcium 8.3(L) 8.4 - 10.2 mg/dL [facility] Bilirubin, Total 0.8 0.0 - 1.0 mg/dL [facility] Aspartate Amino Transferase 40(H) 5 - 37 U/L [facility] Alanine Aminotransferase 28 0 - 40 U/L [facility] Total Protein 6.1(L) 6.5 - 8.0 g/dL [facility] Albumin Level 3.0(L) 3.5 - 5.0 g/dL [facility] Alkaline Phosphatase 149(H) 39 - 117 U/L [facility] 07/01/2025 11:1 3 PM EDT 07/01/2025 11:21 PM EDT us Generic External Data Provider LAB BLOOD ORDERAB LES Final Result [facility] [address] [place] [phone] [phone] * XR Humerus Left (06/25/2025 11:38 AM EDT) Anatomical Region Laterality Modality Upper Extremities, Humerus Left [facility] 06/25/2025 11:3 8 AM EDT Narrative 06/25/2025 11:48 AM EDT [address] [address] XRay Report Signed Patient: Adelso Beebe MR#: [id number] : 1960 Acct:[id number] Age/Sex: 64 / M ADM Date: 06/25/25 Loc: HO.ED Attending Dr: Ordering Physician: Cash Reno MD Date of Service: 06/25/25 Procedure(s): XR humerus LT Accession Number(s): [id number] cc: Cash Reno MD; Leta Soto MD [...] Dieter Morse MD 06/25/2025 11:45 AM EDT Dictated By: Dieter Morse MD Signed By: <Electronically signed by Dieter Morse MD in OV> 06/25/25 1145 DD/ 1138 TD/TT: 06/25/25 1138 Aviation Mechanic: Procedure Note Donotuseinterpreter, Image - 06/25/[address] [address] XRay Report Signed Patient: Adelso BeebeMR#: [id number] : 1960cct:[id number] Age/Sex: 64 / MADM Date: 06/25/25 Loc: HO.ED Attending Dr: Ordering Physician: Cash Reno MD Date of Service: 06/25/25 Procedure(s): XR humerus LT Accession Number(s): [id number] cc: Cash Reno MD; Leta Soto MD [...] 06/25/25 1145 DD/ 1138 TD/TT: 06/25/25 1138 Aviation Mechanic: [facility] External Provider IMG XR PROCEDURES Edited Result - Final * POCT Glucose (06/09/2025 11:04 AM EDT) Glucose Blood, POC 107 60 - 200 mg/dL QC Media Lot # [id number] Lot# Expiration Date [id number] Blood Capillary blood specimen / Unknown 06/09/2025 11:04 AM EDT Leta Dick MD POINT OF CARE ANCELMO T ENTER/EDIT ORDERABLES Final Result * (ABNORMAL) Ammonia, Plasma (06/04/2025 4:07 PM EDT) Only the most recent of2 resultswithin the time period is included. Ammonia (P) 64(H) 13 - 55 umol/L [facility] 06/04/2025 4:07 PM EDT 06/04/2025 4:10 PM EDT Generic External Data Provider LAB BLOOD ORDERAB LES Final Result [facility] [address] [place] [phone] * Lipase (06/04/2025 2:25 PM EDT) Lipase 20 8 - 78 U/L [facility] 06/04/2025 2:25 PM EDT 06/04/2025 2:29 PM EDT Generic External Data Provider LAB BLOOD ORDERAB LES Final Result Performing Organization Address City/[facility]/ZIP Co de Phone Number [facility] [address] [place] [phone] * Hepatic Function Panel (06/04/2025 2:25 PM EDT) Bilirubin, Direct 0.5 0.0 - 0.5 mg/dL [facility] 06/04/2025 2:25 PM EDT 06/04/2025 2:29 PM EDT Generic External Data Provider LAB BLOOD ORDERAB LES Final Result Performing Organization Address [facility] de Phone Number [facility] [address] [place] [phone] * CT Head w/o Contrast (05/22/2025 3:27 PM EDT) Only the most recent of2 resultswithin the time period is included. Anatomical Region Laterality Modality Head, Neck Computed Tomogra phy 05/22/2025 3:27 PM EDT Narrative 05/22/2025 3:54 PM EDT [address] [address] [address] Scan Report Signed Patient: Adelso Beebe MR#: [id number] : 1960 Acct:[id number] Age/Sex: 64 / M ADM Date: 05/22/25 Loc: HO.ED Attending Dr: Ordering Physician: Jorge Wang MD Date of Service: 05/22/25 Procedure(s): CT head/brain wo IV con Accession Number(s): [id number] cc: Jorge Wang MD; Leta Soto MD Report Number: [id number]: Total DLP = 682.00 mGy-cm Reason for [...] 05/22/25 1551 DD/ 1527 TD/TT: 05/22/25 1541 Aviation Mechanic: Procedure Note Donotuseinterpreter, Image - 05/22/[address] [address] [address] Scan Report Signed Patient: Adelso BeebeMR#: [id number] : 1960cct:[id number] Age/Sex: 64 / MADM Date: 05/22/25 Loc: HO.ED Attending Dr: Ordering Physician: Jorge Wang MD Date of Service: 05/22/25 Procedure(s): CT head/brain wo IV con Accession Number(s): [id number] cc: Jorge Wang MD; Leta Soto MD Report Number: [id number]: Total DLP = 682.00 mGy-cm Reason for [...] 05/22/25 1551 DD/ 1527 TD/TT: 05/22/25 1541 Aviation Mechanic: [facility] External Provider IMG CT PROCEDURES Final Result * Hematoxylin and Eosin Stain (05/21/2025 2:15 PM EDT) 05/21/2025 2:15 PM EDT 05/21/2025 2:50 PM EDT [facility] - 05/25/2025 5:25 PM EDT ----- ------- Name: Adelso Beebe Age/Sex: 64/M : 1960 Unit#: [id number] Attend Dr: Yajaira Antonio MD Re05/21/25 Status: [facility] Location: [facility] Disch: ----- ------- SPEC : [id number] RECD: 05/21/25-145 STATUS: OUMOU FONSECA NUM: [id number] CASSI: 05/21/25-[address] [facility] [address]: Yajaira Antonio MD ENTERED: 05/21/25-1505 [...] microscopic examination, 6 pieces in cassette A. ([facility]) Special studies ordered and performed: Immunostain for H. pylori; AB/PAS stains IHC S/NG Disclaimer NOTE: Unless otherwise stated, all tissue is formalin-fixed and paraffin-embedded. Some or all of the immunohistochemical tests reported herein may have been developed and their performance characteristics determined by [facility]. They have not been cleared or approved by the U.S. Food and Drug Administration (FDA). However, the FDA has determined that such clearance or approval is not necessary. This laboratory is certified under the Clinical Laboratory Improvement Amendments of 1988 (CLIA) as qualified to perform high complexity clinical laboratory testing. Copies To: Leta Soto MD [address] [place] [address] CONTINUED ON NEXT PAGE ----- ------- Name: Adelso Beebe Age/Sex: 64/M : 1960 [id number] Unit#: [id number] Attend Dr: Yajaira Antonio MD Re05/21/25 Status: [facility] Location: [facility] Disch: ----- ------- SPEC : [id number] RECD: 05/21/251951 STATUS: OUMOU FONSECA NUM: [id number] CASSI: 05/21/25-[address] [facility] [address]: Yajaira Antonio MD ENTERED: 05/21/25-0153 SP TYPE: Surgical OTHR DR: Leta Soto MD ORDERED: HE Stain/3, Gross Micro L4, IHC, Special st. 2, H. pylori, AB/PAS Copies To: (Continued) Yajaira Antonio MD [facility] [address] [place] [email or web address] ------- Signed (signature on file) Raul Blunt MD 05/25/25 3075 ----- ------- END OF REPORT Generic External Data Provider LAB BLOOD ORDERAB LES Final Result [facility] [address] [place] [phone] * Pheresis Platelets (05/20/2025 10:46 AM EDT) Pheresis Platelets [id number] AP PHPLT TRANSFUSED 05/21/25 1333 [id number] AP PHPLT TRANSFUSED 05/21/25 1223 [facility] 05/20/2025 10:4 6 AM EDT 05/20/2025 11:19 AM EDT Generic External Data Provider LAB BLOOD BANK TE ST ORDERABLES Final Result [facility] [address] [place] [phone] * Type and screen (05/20/2025 10:46 AM EDT) Blood Type ON [facility] Antibody Screen NEGATIVE [facility] 05/20/2025 10:4 6 AM EDT 05/20/2025 11:19 AM EDT Narrative [facility] - 05/26/2025 11:30 AM EDT WITNESSED BY SARAH.NURSING:Call Blood Bank (ext. [phone]) to band patient on admission.Type and Screen [...] PLT PENDING RECEIPT 160-400 X10*3/uL Plt <75,000No Generic External Data Provider LAB BLOOD BANK TE ST ORDERABLES Final Result [facility] [address] [place] [address] [phone] * Urinalysis, Complete, with Reflex to Culture (05/15/2025 2:19 PM EDT) Color Urine Yellow [facility] Appearance Urine Clear [facility] PH 8.0 5.0 - 9.0 [facility] Glucose Urine UA Negative Negative mg/dL [facility] Urine Blood Negative Negative [facility] Specific [place] - Urine 1.010 1.005 - 1.025 [facility] Urine Protein Negative Neg-Trace mg/dL [facility] Urine Ketones Negative Negative mg/dL [facility] Nitrite Urine Negative Negative [facility] Leukocyte Esterase Urine Negative Negative [facility] RBC Urine 0-2 0 - 2 /HPF [facility] Urine WBC 0-5 0 - 5 /HPF [facility] Urine Squamous Epithelial Cell 0-2 0 - 2 /HPF [facility] Urine Bacteria None Seen None Seen [facility] Hyaline Casts, Urine 0-2 0 - 2 /LPF [facility] 05/15/2025 2:19 PM EDT 05/15/2025 2:33 PM EDT Narrative [facility] - 05/15/2025 2:44 PM EDT Urine, Clean Catch Generic External Data Provider LAB URINE ORDERAB LES Final Result [facility] [address] [place] [address] [phone] * (ABNORMAL) B Type Natriuretic Peptide (BNP) (05/15/2025 2:19 PM EDT) B Type Natriuretic Peptide 178(H) <100 pg/mL [facility] 05/15/2025 2:19 PM EDT 05/15/2025 2:33 PM EDT us Generic External Data Provider LAB BLOOD ORDERAB LES Final Result Performing Organization Address [facility] Co de Phone Number [facility] [address] [place] [phone] * (ABNORMAL) Prothrombin Time-INR (05/15/2025 11:23 AM EDT) Prothrombin Time 16.1(H) 10.9 - 12.4 SEC [facility] INTERNATIONAL NORM RATIO 1.4(H) 0.9 - 1.1 [facility] Comment:INTERNATIONAL NORMAL IZED RATIO (INR) [...] ORDERAB LES Final Result Performing Organization Address [facility] Co de Phone Number [facility] [address] [place] [phone] * Syphilis Screen (04/21/2025 10:43 AM EDT) Syphilis Screen Nonreactive Nonreactive [facility] 04/21/2025 10:4 3 AM EDT 04/21/2025 1:18 PM EDT us Leta Dick MD LAB BLOOD ORDERAB LES Final Result Performing Organization Address [facility] Co de Phone Number [facility] [address] [place] [phone] * Hepatitis C Viral RNA, Quantitative, Real-Time PCR (04/21/2025 10:43 AM EDT) [facility] Hepatitis C Viral Load <15 NOT DETECTED NOT DETECTED IU/mL [facility] HCV Log PCR <1.18 NOT DETECTED NOT DETECTED Log IU/mL [facility] Comment:For additional infor tash, please refer tohttp://education.Screenie/faq/XQH09h4(This link is being provided for informational/educational purposes only.)THIS TEST WAS PERFORMED AT:[email or web address] [place] [id number] STRICKLAND MD 04/21/2025 10:4 3 AM EDT 04/22/2025 8:54 AM EDT us Leta Dick MD LAB BLOOD ORDERAB LES Final Result Performing Organization Address [facility]/ZIP Co de Phone Number [facility] [address] [place] [phone] * (ABNORMAL) Hepatitis C Antibody with Reflex to HCV, RNA, Quantitative, Real- Time PCR (04/21/2025 10:43 AM EDT) [facility] Hepatitis C Antibody Reactive( A) Nonreactive [facility] Comment:Presumptive evidence of antibodies to HCV. 04/21/2025 10:4 3 AM EDT 04/21/2025 1:18 PM EDT us Leta Dick MD LAB BLOOD ORDERAB LES Final Result Performing Organization Address [facility]/ZIP Co de Phone Number [facility] [address] [place] [phone] * HIV-1 RNA, Quantitative, Real-Time PCR (04/21/2025 10:43 AM EDT) [facility] HIV RNA PCR Qn Copies NOT DETECTED NOT DETECTED copies/mL [facility] HIV RNA PCR Qn Log Copies NOT DETECTED NOT DETECTED [facility] Comment:Result Units: Log co pies/mLThis test was performed using Real-Time Polymerase ChainReaction.Reportable Range: 20 copies/mL to 10,000,000 copies/mL(1.30 log copies/mL to 7.00 log copies/mL).THIS TEST WAS PERFORMED AT:[employer] [address] [id number] STRICKLAND MD 04/21/2025 10:4 3 AM EDT 04/21/2025 1:18 PM EDT Leta Dick MD LAB BLOOD ORDERAB LES Final Result Performing Organization Address [facility] Co de Phone Number [facility] [address] [place] [phone] * RPR (Monitor) with Reflex to??Titer (04/21/2025 10:43 AM EDT) RPR (Monitor) w/Refl Titer NON-REACTI VE NON-REACT [place] [facility] Comment:THIS TEST WAS PERFOR MED AT:[facility] [employer] [facility] [address] [id number] STRICKLAND MD Rapid Plasma Reagin Ab Titer TNP [facility] 04/21/2025 10:4 3 AM EDT 04/21/2025 1:18 PM EDT Leta Dick MD LAB BLOOD ORDERAB LES Final Result Performing Organization Address [facility]/ZIP Co de Phone Number [facility] [address] [place] [phone] * Chlamydia/Gonorrhea Throat Swab ([facility]) (04/21/2025) Chlamydia Throat Swab Negative Gonorrhea Throat [...] AM EDT Narrative 04/12/2025 12:28 AM EDT [place] [address] CT Scan Report Signed Patient: Adelso Beebe MR#: [id number] : 1960 Acct:[id number] Age/Sex: 64 / M ADM Date: 04/11/25 Loc: HO.ED Attending Dr: Ordering Physician: Cash Reno MD Date of Service: 04/11/25 Procedure(s): CT cervical spine wo IV con Accession Number(s): [id number] cc: Cash Reno MD; [facility] Report Number: [id number]: Total DLP = 462.38 mGy-cm CLINICAL HISTORY: [...] MD in OV> 04/12/2526 DD/ TD/TT: 04/12/2525 Aviation Mechanic: Procedure Note Donotuseinterpreter, Image - 04/12/[address] [address] [address] Scan Report Signed Patient: Adelso BeebeMR#: [id number] : 1960cct:[id number] Age/Sex: 64 / MADM Date: 04/11/25 Loc: HO.ED Attending Dr: Ordering Physician: Cash Reno MD Date of Service: 04/11/25 Procedure(s): CT cervical spine wo IV con Accession Number(s): [id number] cc: Cash Reno MD; [facility] Report Number: [id number]: Total DLP = 462.38 mGy-cm CLINICAL HISTORY: [...] MD in OV> 04/12/2526 DD/ TD/TT: 04/12/2525 Aviation Mechanic: [facility] External Provider IMG CT PROCEDURES Final Result * Lipid Panel, Standard (04/06/2023 10:00 AM EDT) Triglycerides 94 mg/dL [facility] Comment:Desirable Triglyceri de: less than 150 mg/dLBorderline High Triglyceride 150-199 mg/dLHigh Triglyceride: 200-499 mg/dLVery High Triglyceride: greater than or equal to 5OO mg/dL Cholesterol 79 mg/dL [facility] Comment:Desirable Cholestero l: less than 200 mg/dLBorderline High Cholesterol: 200-239 mg/dLHigh Cholesterol: greater than 239 mg/dL LDL Cholesterol Calculated 36 mg/dl [facility] Comment:Desirable LDL: less than 100 mg/dLNear Optimal/Above Optimal LDL: 110- 129 mg/dLBorderline High LDL: 130-159 mg/dLHigh LDL: 160-189 mg/dLVery High LDL: greater than or equal to 190 mg/dL HDL Cholesterol 25 mg/dL [facility] Comment:Desirable HDL: great er than 40 mg/dL Note: This HDL assay may give artificially low results in patients with liver disease. Blood Venous blood specimen / Unknown 04/06/2023 10:00 AM EDT 04/06/2023 11:20 AM EDT [facility] BLOOD ORDERABLES Final Resul t [facility] [address] [place] [phone] from Last 3 Months or Most Recently Relevant to Health Maintenance Insurance [place] [address] [address] C3 Care Teams Research Associate Quality Control Qc Relationship Specialty Start Date End Date Leta Soto MD [address] [place] [phone] PCP - General Internal Medicine 04/11/23 Yajaira Antonio [address] [place] [address] Drive 3rd [place] [address] Gastroenterology 09/04/24 [facility] 01/28/25
--- OUTSIDE RECORDS SUMMARY | 2025-07-12 20:45 | XMS_ITS | Encounter Summary ---
Author Organization [employer] Address [address] [facility] [address]t [place] [address] Care Team Providers Care Air Crew Member Name Role Phone Leta Soto MD Primary Care Pro vider Yajaira Antonio Unavailable Reason for Visit * Reason Onset Date Comments Letter for School/Work 07/09/2025 Encounter Details Date Type Department Care Team ([facility] st Contact Info) Description 07/09/2025 Telephone [facility] [address] [place] [address] Leta Soto MD [address], [place] [phone] Letter for School/Work Social History Tobacco Use Types Packs/Day Years [...] Telephone Encounter - Yamel Khanna RN - 07/10/2025 2:42 PM EDT Telephone call placed to pt regarding below message. Informed all letter requests have to go through HIM. Advised he come to our medical records department to submit a letter request at his soonest convenience. * Telephone Encounter - Erik Puente - 07/09/2025 8:50 AM EDT Patient walked in requesting a letter stating he can not work due to chronic conditions. documented in this encounter Plan of Treatment Upcoming Encounters Date Type Department Care Team (Late st Contact Info) Description 09/24/2025 10:15 AM EST Office Visit [facility] [address] [place] [phone] Leta Soto MD [address] [place] [address] documented as of this encounter Goals Goal [...] documented as of this encounter Care Teams Air Crew Member Relationship Specialty Start Date End Date Leta Soto MD [address] [place] [phone] PCP - General Internal Medicine 04/11/23 Yajaira Antonio [address] [place] [address] Drive [address]rd [place] [address] Gastroenterology 09/04/24 [facility] 01/28/25 documented as of this encounter
--- OUTSIDE RECORDS SUMMARY | 2025-07-12 20:45 | XMS_ITS | Clinical Summary ---
Author Organization [facility] Address [address] [facility] [address] [place] [phone] Phone Care Team Providers Care Human Resources Benefits Assistant Name Role Phone Leta Soto MD [...] Type Department Care Team Description 06/10/2025 Telephone [facility] [address] [facility] 10th [place] [address] Michela Matt MD 10/2 cancelled 06/09/[address] [address] Michela Matt MD Procedure Instructions 05/28/2025 10:00 AM EDT Pre-Admission Testing [facility] Pre Procedure Evaluation Center [address] [place] [phone] Michela Matt MD 04/20/2025 1:15 PM EDT Office Visit [address] [address] Michela Matt MD Cicatricial ectropion of right [...] Description 09/24/2025 9:00 AM EST Pre-Admission Testing [facility] Pre Procedure Evaluation Center [address] [place] [address] Michela Matt MD [address] [place] [phone] [email or web address] 10/08/2025 [facility] [address] [place] [address] 10/08/2025 9:00 AM EST Hospital [facility] [address] [place] [phone] Michela Matt MD [address] [place] [phone] [email or web address] 10/08/2025 9:00 AM EST Anesthesia Event [facility] [address] [place] [phone] Berlin Rosas MD [address] [place] [phone] [email or web address] Juliana Loredo NP [address] [place] [phone] [email or web address] [email or web address] 10/08/2025 9:00 AM EST - 10/08/2025 10:00 AM EST Surgery [facility] DEPT [address] [place] [address] Michela Matt MD [address] [place] [phone] [email or web address] 10/19/2025 2:30 PM EST Office Visit [facility] [address] [address] Michela Matt MD [address] [place] [phone] [email or web address] Scheduled Procedures Name Priority Associated [...] topic Medical Devices Not on file Insurance [facility] C3 ACO C3 ACO C3 ACO C3 ACO C3 ACO C3 ACO Care Teams Human Resources Benefits Assistant Relationship Specialty Start Date End Date Leta Soto MD [address] [place] [phone] PCP - General Internal Medicine 01/05/25 Additional Source Comments The information contained in this document represents components of the legal health record. It is not the complete legal health record.[facility]
--- OUTSIDE RECORDS SUMMARY | 2025-07-12 20:45 | XMS_ITS | Encounter Summary ---
Author Organization [employer] Address [address] [facility] 7t [place] [address] Care Team Providers Care Television Schedule Coordinator Name Role Phone Leta Soto MD Primary Care Pro vider Yajaira Antonio Unavailable Encounter Details Date Type Department Care Team (Late st Contact Info) Description 11/11/2024 Telephone [facility] [address] [place] [address] Leta Soto MD [address] [place] [address] Social History Tobacco Use Types Packs/Day Years [...] PM EST Tc from amrita stiles nurse case management requesting the status on pt documented in this encounter Plan of Treatment Upcoming Encounters Date Type Department Care Team (Late st Contact Info) Description 09/24/2025 10:15 AM EST Office Visit [facility] [address] [place] [phone] Leta Soto MD [address] [place] [address] documented as of this encounter Goals Goal [...] documented as of this encounter Care Teams Television Schedule Coordinator Relationship Specialty Start Date End Date Leta Soto MD [address] [place] [phone] PCP - General Internal Medicine 04/11/23 Yajaira Antonio [address] [place] [address] Drive 3rd [place] [address] Gastroenterology 09/04/24 [facility] 01/28/25 documented as of this encounter
--- OUTSIDE RECORDS SUMMARY | 2025-07-12 20:45 | XMS_ITS ---
Author Organization [employer] Address [address] [facility] 7t [place] [address] Care Team Providers Care Retail Account Executive Name Role Phone Leta Soto MD Primary [...] Phone Stanley Mckeon RN(Responsible Staff) Registered Nurse [phone] Continued Care and Services Coordination
--- OUTSIDE RECORDS SUMMARY | 2025-07-12 20:45 | XMS_ITS | Encounter Summary ---
Author Organization [employer] Address [address] [facility] 7t [place] [address] Care Team Providers Care Metal Shaping Machine Operator Name Role Phone Leta Soto MD Primary Care Pro vider Yajaira Antonio Unavailable Encounter Details Date Type Department Care Team (Late st Contact Info) Description 04/21/2025 Orders Only [facility] [address] [place] [address] Imelda Pfeiffer, CHANDU [address] [place] [address] Healthcare maintenance Social History Tobacco Use Types [...] Description 09/24/2025 10:15 AM EST Office Visit [facility] [address] [place] [address] [phone] Leta Soto MD [address] [place], [place] [phone] Scheduled Orders Name Type Priority Associated Diagnoses [...] IU/mL [facility] Comment:For additional infor tash, please refer [email or web address].HelloNature/faq/ODL53b0(This link is being provided for informational/educational purposes only.)THIS TEST WAS PERFORMED AT:[facility] [place] [phone] STRICKLAND MD 04/21/2025 10:4 3 AM EDT 04/22/2025 8:54 AM EDT us Leta Dick MD LAB BLOOD ORDERAB LES Final Result [facility] [address] [place] [phone] * HIV-1 RNA, Quantitative, Real-Time PCR [...] to 7.00 log copies/mL).THIS TEST WAS PERFORMED AT:[facility] [place] [id number] SRTICKLAND MD 04/21/2025 10:4 3 AM EDT 04/21/2025 1:18 PM EDT us Leta Dick MD LAB BLOOD ORDERAB LES Final Result [facility] [address] [place] [phone] * RPR (Monitor) with Reflex to??Titer (04/21/2025 10:43 AM EDT) Pathologist [facility] RPR (Monitor) w/Refl Titer NON-REACTI VE NON-REACT [place] [facility] Comment:THIS TEST WAS PERFOR MED AT:[facility] [place] [phone] STRICKLAND MD Rapid Plasma Reagin Ab Titer TNP [facility] 04/21/2025 10:4 3 AM EDT 04/21/2025 1:18 PM EDT us Leta Dick MD LAB BLOOD ORDERAB LES Final Result [facility] [address] [place] [phone] * (ABNORMAL) Hepatitis C Antibody with Reflex to HCV, RNA, Quantitative, Real- Time PCR (04/21/2025 10:43 AM EDT) Hepatitis C Antibody Reactive( A) Nonreactive [facility] Comment:Presumptive evidence of antibodies to HCV. 04/21/2025 10:4 3 AM EDT 04/21/2025 1:18 PM EDT us Leta Dick MD LAB BLOOD ORDERAB LES Final Result Performing Organization Address City/[facility]/ZIP Co de Phone Number [facility] [address] [place] [phone] * Syphilis Screen (04/21/2025 10:43 AM EDT) Syphilis Screen Nonreactive Nonreactive [facility] 04/21/2025 10:4 3 AM EDT 04/21/2025 1:18 PM EDT us Leta Dick MD LAB BLOOD ORDERAB LES Final Result Performing Organization Address [facility] Co de Phone Number [facility] [address] [place] [phone] documented in this encounter Visit Diagnoses Diagnosis Healthcare maintenance documented in this encounter Additional Health Concerns Assessment Noted Time PHQ-9 Depression Total Score: 0 03/12/20 25 10:25 AM EDT documented as of this encounter Care Teams Metal Shaping Machine Operator Relationship Specialty Start Date End Date Leta Soto MD [address] [place] [phone] PCP - General Internal Medicine 04/11/23 Yajaira Antonio [address] [place] [address] Drive 3rd [place] [address] Gastroenterology 09/04/24 [facility] 01/28/25 documented as of this encounter
[2025-07-12 20:58] VITALS: BP 127/46; PULSE 77; RESP 18; TEMP 36.6; O2SAT 100
[2025-07-12 21:04] LABS: Hematocrit 22.8 % (42.0-52.0); Imm Gran Abs Auto 0.00 X10*3/uL (0.00-0.03); Imm Gran Pct Auto 0.0 % (0.0-0.4); Lymphocytes Absolute Auto 0.5 X10*3/uL (1.2-4.9); MANUAL DIFF FLAG SCAN; Mean Corpuscular HGB Conc 29.8 g/dl (31.0-36.0); Mean Corpuscular Hemoglobin 23.6 pg (27.0-33.0); Mean Corpuscular Volume 79.2 fL (80.0-98.0); NRBC Abs Auto 0.000 X10*3/uL (0.0-0.012); NRBC Pct Auto 0.0 /100WBC (0.0-0.2); Red Blood Count 2.88 X10*6/uL (4.60-5.80); SCAN SMEAR FLAG 1
[2025-07-12 21:05] LABS: Platelet Count 25 X10*3/uL (160-400); White Blood Count 1.5 X10*3/uL (4.8-10.8)
[2025-07-12 21:12] LABS: Appearance Urine Clear; Glucose Urine UA Negative (Negative); PH 6.0 (5.0-9.0); Specific Gravity - Urine 1.015 (1.005-1.025)
[2025-07-12 21:15] LABS: Hemoglobin 6.8 g/dl (14.0-18.0)
--- NOTE | 2025-07-12 22:16 | PC.NURSE ---
Pt not in room when MD went to bedside for eval. T/w calling pts cell. Pt in the WR looking for another RN. Pt assisted back and into room, elopement band and tab alarm applied.
[2025-07-12 22:55] LABS: Ammonia 78 umol/L (13-55)
[2025-07-12 23:10] LABS: NT Pro B Type Natriuretic Pept 115.0 pg/mL (<300); Troponin-I High Sensitivity 18.9 ng/L (<3.5-35.0)
[2025-07-13] VITALS (20 sets, daily range): BP systolic 111–152; BP diastolic 44–70; PULSE 63–90; RESP 12–20; TEMP 36.3–37; O2SAT 97–100
--- NOTE | 2025-07-13 00:42 | ED.DIZZY ---
HPI - Dizziness General Chief Complaint: Dizziness Stated Complaint: lightheaded, htn 224/106 Time Seen by Provider: 07/12/25 21:17 Source: patient, EMS, RN notes reviewed, old records reviewed and check processor Mode of arrival: EMS Limitations: language barrier and altered mental status History of Present Illness ED Provider: Dr. Stefani Rocha HPI Narrative: 64-year-old male with history of liver cirrhosis status post portacaval shunt procedure, hepatitis-C and pancytopenia presenting with dizziness and lightheadedness since yesterday morning. Patient is a somewhat poor historian. He comes via EMS from the retirement where he is currently living. Reportedly had high blood pressure there by had relatively normal blood pressure for EMS. Patient is confused but oriented to person and place. Admits that he has not been taking his lactulose over the last couple of days because he had diarrhea before this. No bowel movement in the last 72 hours. He denies drinking alcohol. States ?if I did that they would have to lock me up?. Denies illicit substance use. No reported fever. He does admit to several falls over the last couple of days, hitting his head and his side. Points to his right side when describing pain. No obvious trauma noted. Related Data Home Medications ?Medication ?Instructions ?Recorded ?Confirmed blood pressure test kit-large #1 ea 05/27/25 (Omron Blood Pressure Monitor-3 Series kit) lactulose 10 gram/15 mL oral 40 g PO BID 06/04/25 06/09/25 solution Previous Rx's ?Medication ?Instructions ?Recorded walker #1 ea 02/08/25 amlodipine 5 mg tablet 5 mg PO DAILY #90 tabs 04/21/25 rifaximin 550 mg tablet (Xifaxan) 550 mg PO BID 90 days #180 tabs 05/27/25 Allergies Allergy/AdvReac Type Severity Reaction Status Date / Time dicyclomine (From Bentyl) Allergy Unknown Verified 07/12/25 19:36 aspirin AdvReac Severe stomach Verified 07/12/25 19:36 bleeding NSAIDS (Non-Steroidal AdvReac Severe liver Verified 07/12/25 19:36 Anti-Inflamma concerns Review of Systems Review of Systems: As per HPI, full review of systems performed and negative but for the above mentioned pertinent positives and negatives. [facility] Past Medical History Medical History Portal vein thrombosis Eye abnormality Cirrhosis of liver Pancytopenia Hyperammonemia Pancytopenia Obesity (BMI 30.0-34.9) Fall Pancytopenia Hepatic encephalopathy Cirrhosis Splenic vein thrombosis Sepsis Cirrhosis of liver with ascites Abdominal pain Thrombocytopenia Pancytopenia Cirrhosis Hepatitis C virus infection Esophageal varices Pancytopenia Iron deficiency anemia Cirrhosis Hepatitis C HBP (high blood pressure) Surgical History S/P TIPS (transjugular intrahepatic portosystemic shunt) H/O left inguinal hernia repair H/O eye surgery History of esophagogastroduodenoscopy (EGD) H/O colonoscopy Family History Family History Maternal Grandmother Breast CA Uterus cancer Mother Primary lung cancer of unknown cell type Social History Social History Household Members: Other Household Members Other:: pt comes from a retirement Housing: Other Housing Other:: retirement Are you a primary direct support professional caregiver to a significant other at home: No Do you presently have visiting nurse or other home services: No Alcohol intake: former Comment: pt refusing alarm's Patient Tobacco Use Status: Never used Tobacco Tobacco use type: Cigarette Cigarette Packs Per Day: 1 Cigarettes Per Day: 0.5 Years Smoked: 45 Smoked in Last 30 Days: No e-Cigarette/Vaping Use: Never Used Second Hand Smoke Exposure: No Use of substances other than those prescribed or required for medical reasons: No Substance Use Type: Heroin Advance Directives: Yes Advance Directives on File: Yes Advance Directives Date on File: 04/02/24 service: No Current occupational status: retired Physical Exam Exam: Exam: GENERAL: Chronically ill-Appearing, appears uncomfortable. SKIN: Normal skin color for ethnicity, warm, dry, no rashes noted. HEENT: Normocephalic, atraumatic, no stridor, dry mucous membranes, dentition intact, EOMI, left pupil is reactive to light, right anophthalmia NECK: Soft, supple, full ROM, midline structures nontender, no step-offs, no deformities, no lymphadenopathy. CHEST: Heart regular rhythm, no murmurs, symmetric chest rise and fall. PULMONARY: Clear to auscultation bilaterally, diminished at the bases, no labored breathing, no wheezes/rhales/rhonchi. ABDOMINAL: Soft, nondistended, diffusely tender to palpation with voluntary guarding, quiet bowel sounds in all quadrants, no significant ascites. : Deferred. MUSCULOSKELETAL: Normal tone, full range of motion, no deformities, no peripheral edema. NEURO: Alert and oriented x3, CN II through XII intact, equal strength and sensation bilateral upper and lower extremities, no focal neurologic deficits. PSYCHIATRIC: Flat affect, fluid speech, good eye contact and appropriate demeanor. Vital Signs: Vital Signs: Last Vital Signs Temp 97.9 F 07/13/25 00:39 Pulse 68 07/13/25 00:39 Resp 18 07/13/25 00:39 BP 125/50 L 07/13/25 00:39 Pulse Ox 99 07/13/25 00:18 O2 Del Method Room Air 07/13/25 00:18 BMI result Body Mass Index 29.6 Medical Decision Making Medical Decision Making [facility] Narrative: Patient presents today with a chief complaint of dizziness. Differential diagnosis is extremely broad and includes posterior circulation deficits causing vestibular basilar symptoms, anemia, hepatic encephalopathy, hypovolemia, middle or inner ear problems, intracranial abnormality such as stroke bleed or tumor, electrolyte abnormalities, cardiac arrhythmia, among many others. This patient does not have any focal neurological findings at this time. Blood work showing evidence of worsening anemia, pancytopenia platelets of 25. He has no evidence of bleeding on exam. CT imaging of the chest abdomen and pelvis is negative for acute bleed. He has a significant stool burden. I have very low suspicion for GI bleeding in the setting of liver cirrhosis, however this was considered. His kidney function is relatively baseline. We will transfuse 1 unit PRBCs, check an ammonia level, plan for admission for further care and evaluation. Patient understands and agrees with the plan. Differential Diagnosis Differential Diagnoses: The differential diagnosis associated with the presentation includes (As above) Admission/Observation Consideration of admission/observation: Escalation of care including admission/observation considered Consult Healthcare Provider Management of the patient was discussed with: Hospitalist Lab Data [facility] Lab Attestation statement: I reviewed the patient's lab results. 07/12/25 20:10 07/12/25 20:10 Labs: Lab Results 07/12/25 07/12/2507/12/25 Range/Units 20:10 21:01 22:42 WBC 1.5 L (4.8-10.8) X10*3/uL RBC 2.88 L (4.60-5.80) X10*6/uL Hgb 6.8 L* (14.0-18.0) g/dl Hct 22.8 L (42.0-52.0) % MCV 79.2 L (80.0-98.0) fL MCH 23.6 L (27.0-33.0) pg MCHC 29.8 L (31.0-36.0) g/dl RDW 16.4 H (11.0-16.0) % Plt Count 25 L (160-400) X10*3/uL MPV Not Reportable Immature Gran % (Auto) 0.0 (0.0-0.4) % Neut % (Auto) 56.5 (45-73) % Lymph % (Auto) 31.3 (20-40) % [place] % (Auto) 9.5 (2-11) % Eos % (Auto) 2.0 (0-4) % Baso % (Auto) 0.7 (0-2) % Lymph # (Auto) 0.5 L (1.2-4.9) X10*3/uL [place] # (Auto) 0.1 (0.1-1.2) X10*3/uL Eos # (Auto) 0.0 (0.0-0.4) X10*3/uL Baso # (Auto) 0.0 (0.0-0.2) X10*3/uL Abs Immat Gran (auto) 0.00 (0.00-0.03) X10*3/uL Absolute Neuts (auto) 0.8 L (2.0-8.3) x10*3/uL Absolute Nucleated RBC 0.000 (0.0-0.012) X10*3/uL Nucleated RBC % (auto) 0.0 (0.0-0.2) /100WBC Smear Tech's Comments VERIFIED Sodium 142 (135-145) mmol/L Potassium 4.5 (3.3-5.1) mmol/L Chloride 116 H (96-108) mmol/L Carbon Dioxide 20 L (22-29) mmol/L Anion Gap 11 L (12-20) BUN 16 (9-16) mg/dL Creatinine 0.76 (0.5-1.4) mg/dL Estim Creat Clear Calc 121.1 Estimated GFR > 60 Random Glucose 86 (60-115) mg/dL Calcium 8.3 L (8.4-10.2) mg/dL Total Bilirubin 1.0 (0.0-1.0) mg/dL AST 58 H (5-37) U/L ALT 26 (0-40) U/L Alkaline Phosphatase 121 H (39-117) U/L Ammonia 78 H (13-55) umol/L Troponin I High Sens 18.9 D (<3.5-35.0) ng/L NT-Pro-B Natriuret Pep 115.0 (<300) pg/mL Total Protein 6.5 (6.5-8.0) g/dL Albumin 3.1 L (3.5-5.0) g/dL Urine Color Yellow Urine Appearance Clear Urine pH 6.0 (5.0-9.0) Ur Specific [place]coe 1.015 (1.005-1.025) Urine Protein Negative (Neg-Trace) mg/dL Urine Glucose (UA) Negative (Negative) mg/dL Urine Ketones Negative (Negative) mg/dL Urine Blood Negative (Negative) Urine Nitrite Negative (Negative) Ur Leukocyte Esterase Negative (Negative) Blood Type O Negative Antibody Screen NEGATIVE Crossmatch See Detail Independent Interpretation I performed an independent interpretation of an: EKG Interpretation: My independent interpretation of the ECG reveals normal sinus rhythm with rate of 75, normal axis, normal intervals, no ST elevations or depressions to suggest ischemic changes, relatively unchanged from previous on 07/02/2025. Radiology Impression Discussion of test interpretation with radiology: I have reviewed the radiologist's reading. Radiologist Impression: CT head without contrast Comparison: 07/01/2025 Findings: No acute intracranial fluid collection or hematoma. Mild chronic ischemic white matter disease. No acute process in sinuses or mastoids. No acute bony abnormality. Right ocular prosthesis. Impression: No acute intracranial process CT cervical spine without contrast Comparison: 04/11/2025 Findings: No acute fracture or dislocation. Posterior alignment is normal. Moderate degenerative change. No radiopaque foreign bodies. Impression: No acute processes CT chest without contrast Comparison: 11/12/2024 Findings: Lung chino are clear without acute infiltrates. No significant mediastinal adenopathy. No significant free pleural fluid. No significant focal bony abnormalities. Impression: No acute processes CT abdomen and pelvis without contrast Comparison: 01/21/2025 Findings: Lung bases clear. No acute bony abnormalities. Degenerative change spine and hips. Portacaval shunt. No focal liver abnormality. Splenomegaly without focal abnormality. Pancreas and adrenal glands unremarkable. Gallbladder within normal limits. No bilateral renal stone or hydronephrosis. No focal renal abnormality or ureteral dilation. No evidence for aortic aneurysm. No free fluid or adenopathy in the pelvis. No diverticulitis. Appendix unremarkable. Impression: No acute processes Independent Historian Clinical information obtained from an independent historian. History obtained from or confirmed by: EMS External Record Review External record reviewed: Inpatient record Chronic Conditions Patient?s care impacted by: Other (Liver cirrhosis, pancytopenia, hepatitis-C) Social Determinants Patient?s care significantly limited by Social Determinants of Health including: Inadequate housing and Other Social Determinant of Health Critical Care Time Critical Care Time Critical Care Time: Yes Total Critical Care Time: 35 Attestation: CRITICAL CARE TIME: 35 minutes of critical care time was spent in direct patient care at the bedside or in the immediate area with this patient. Critical care was necessary to treat or prevent imminent or life-threatening deterioration of the following conditions acute on chronic anemia, pancytopenia, encephalopathy due to liver cirrhosis. This patient is high risk for decompensation and/or . This time was spent assessing and managing the patient, interpreting labs and imaging, coordinating care with other medical providers, gathering history from either the patient, their representatives, EMS or chart review, and discussing management with admitting team. Discharge Plan Discharge Print Language: Bruneian
[2025-07-13 01:04] LABS: INTERNATIONAL NORM RATIO 1.5 (0.9-1.1); Prothrombin Time 17.2 SEC (10.9-12.4)
--- NOTE | 2025-07-13 01:15 | PM.IMHP ---
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 and essential hypertension presents to the emergency department due to dizziness upon standing up associated with shortness of breath on exertion. He mentioned that he had 2 falls landing on his buttock but denied any head trauma. He has a chronic cough that he attributes to tobacco smoking. He denied chest pain, palpitations, vomiting or nausea. He reported soft stool that he attributes to lactulose use and denied rectal bleeding or black stools. Denied hx of alcoholism. He smoked tobacco daily (few cigarettes a day) but denied illicit drug use. Last EGD by Dr. Antonio May 2025: Normal esophageal mucosa, gastric polyps x2, GAVE (APC) and duodenal lymphangiectasia In the ED today, he was found to have normal vital signs. Blood workup was remarkable for hemoglobin of 6.8, MCV 79.5, platelets 25 (baseline) and WBC 1.5 (baseline). INR is 1.5. There are no significant electrolyte imbalances but magnesium pending. There is hyperchloremia 116, CO2 20, anion gap 11, BUN 16 and creatinine 0.76. AST is slightly elevated, ALT 26 alk-phos 121 and bilirubin is normal. Ammonia is 78. Troponin is 18.9 and pro BNP 115. Albumin is 3.1. UA is negative for infection, hematuria or proteinuria. Abdomen and pelvis CT scan without IV contrast showed no acute process. Chest CTA without contrast showed no acute process. C-spine CT scan showed no acute process. ECG showed normal sinus rhythm, heart rate 75 beats per minute without ischemic changes. ED tx: One unit PRBCs Review of Systems Review of Systems: All 12 systems were reviewed and normal except as noted in HPI. [facility] Medical History Portal vein thrombosis Eye abnormality Cirrhosis of liver Pancytopenia Hyperammonemia Pancytopenia Obesity (BMI 30.0-34.9) Fall Pancytopenia Hepatic encephalopathy Cirrhosis Splenic vein thrombosis Sepsis Cirrhosis of liver with ascites Abdominal pain Thrombocytopenia Pancytopenia Cirrhosis Hepatitis C virus infection Esophageal varices Pancytopenia Iron deficiency anemia Cirrhosis Hepatitis C HBP (high blood pressure) Family History Maternal Grandmother Breast CA Uterus cancer Mother Primary lung cancer of unknown cell type Surgical History S/P TIPS (transjugular intrahepatic portosystemic shunt) H/O left inguinal hernia repair H/O eye surgery History of esophagogastroduodenoscopy (EGD) H/O colonoscopy Social History Household Members: Other Household Members Other:: pt comes from a [facility] Housing: Other Housing Other:: [facility] Are you a primary rn complex care to a significant other at home: No Do you presently have visiting nurse or other home services: No Alcohol intake: former Comment: pt refusing alarm's Patient Tobacco Use Status: Never used Tobacco Tobacco use type: Cigarette Cigarette Packs Per Day: 1 Cigarettes Per Day: 0.5 Years Smoked: 45 Smoked in Last 30 Days: No e-Cigarette/Vaping Use: Never Used Second Hand Smoke Exposure: No Use of substances other than those prescribed or required for medical reasons: No Substance Use Type: Heroin Advance Directives: Yes Advance Directives on File: Yes Advance Directives Date on File: 04/02/24 service: No Current occupational status: retired Meds Allergies Allergy/AdvReac Type Severity Reaction Status Date / Time dicyclomine (From Bentyl) Allergy Unknown Verified 07/12/25 19:36 aspirin AdvReac Severe stomach Verified 07/12/25 19:36 bleeding NSAIDS (Non-Steroidal AdvReac Severe liver Verified 07/12/25 19:36 Anti-Inflamma concerns Active Medications: Current Medications Acetaminophen (Acetaminophen 325 Mg Tablet) 650 mg PO Q6H PRN PRN Reason: Pain, Mild 1-3,fever,headache Calcium Carbonate (Calcium Carbonate 750 Mg Tab.Chew) 750 mg PO Q4H PRN PRN Reason: Heartburn Magnesium Hydroxide (Milk Of Magnesia 30 Ml Oral.Susp) 30 ml PO DAILY PRN PRN Reason: Constipation Melatonin (Melatonin 3 Mg Tablet) 6 mg PO BEDTIME PRN PRN Reason: Insomnia Sodium Chloride (0.9 % Sodium Chloride Flush 3 Ml Syringe) 3 ml IVFLUSH QSHIFT LALI Home Medications ?Medication ?Instructions ?Recorded ?Confirmed ?Last Taken ?Type blood pressure test kit-large #Meggan ea 05/27/25 Unknown History (Omron Blood Pressure Monitor-3 Series kit) lactulose 10 gram/15 mL oral 40 g PO BID 06/04/25 06/09/25 Unknown History solution Physical Exam Vital Signs and Narrative: Vital Signs: Last Vital Signs Temp 97.9 F 07/13/25 00:39 Pulse 68 07/13/25 00:39 Resp 18 07/13/25 00:39 BP 125/50 L 07/13/25 00:39 Pulse Ox 99 07/13/25 00:18 O2 Del Method Room Air 07/13/25 00:18 BMI result Body Mass Index 29.6 General: Alert, oriented, in no acute distress. Well nourished and cooperative. Afebrile. HEENT: Head normocephalic, atraumatic. PER, EOMI. Sclerae anicteric, conjunctiva clear. Oropharynx without erythema or exudate. Mucous membranes moist. Neck: Supple, no lymphadenopathy, or JVD. Heart: RRR, no murmurs, rubs or gallops. Lungs: Clear to auscultation bilaterally. No wheezes, rales, or rhonchi. Normal respiratory effort. Abdomen: Soft, non tenderness, nondistended, normoactive bowel sounds. No hepatosplenomegaly, masses or masses. Extremities: Mild pitting edema to the lower extremities. No tenderness. Musculoskeletal: Full range of motion. No joint swelling, deformity, or tenderness. Generalized muscular atrophy. Skin: Warm/Dry. (+) pallor. No jaundice. Neurologic: Alert & oriented x4. Moving all extremities spontaneously. Normal speech. Psychological: Normal mood and affect. Thought process coherent. Results Labs 07/12/25 20:10 07/12/25 20:10 Labs: Laboratory Results - last 24 hr 07/12/25 07/12/25 07/12/25 20:10 21:01 22:42 MCV 79.2 L MCH 23.6 L MCHC 29.8 L RDW 16.4 H Plt Count 25 L MPV Not Reportable Immature Gran % (Auto) 0.0 Neut % (Auto) 56.5 Lymph % (Auto) 31.3 [place] % (Auto) 9.5 Eos % (Auto) 2.0 Baso % (Auto) 0.7 Lymph # (Auto) 0.5 L [place] # (Auto) 0.1 Eos # (Auto) 0.0 Baso # (Auto) 0.0 Abs Immat Gran (auto) 0.00 Absolute Neuts (auto) 0.8 L Absolute Nucleated RBC 0.000 Nucleated RBC % (auto) 0.0 Smear Tech's Comments VERIFIED PT INR Anion Gap 11 L Estim Creat Clear Calc 121.1 Estimated GFR > 60 Random Glucose 86 Calcium 8.3 L Total Bilirubin 1.0 AST 58 H ALT 26 Alkaline Phosphatase 121 H Ammonia 78 H Troponin I High Sens 18.9 D NT-Pro-B Natriuret Pep 115.0 Total Protein 6.5 Albumin 3.1 L Urine Color Yellow Urine Appearance Clear Urine pH 6.0 Ur Specific [place] 1.015 Urine Protein Negative Urine Glucose (UA) Negative Urine Ketones Negative Urine Blood Negative Urine Nitrite Negative Ur Leukocyte Esterase Negative Blood Type O Negative Antibody Screen NEGATIVE Crossmatch See Detail 07/13/25 00:47 MCV MCH MCHC RDW Plt Count MPV Immature Gran % (Auto) Neut % (Auto) Lymph % (Auto) [place] % (Auto) Eos % (Auto) Baso % (Auto) Lymph # (Auto) [place] # (Auto) Eos # (Auto) Baso # (Auto) Abs Immat Gran (auto) Absolute Neuts (auto) Absolute Nucleated RBC Nucleated RBC % (auto) Smear Tech's Comments PT 17.2 H INR 1.5 H Anion Gap Estim Creat Clear Calc Estimated GFR Random Glucose Calcium Total Bilirubin AST ALT Alkaline Phosphatase Ammonia Troponin I High Sens NT-Pro-B Natriuret Pep Total Protein Albumin Urine Color Urine Appearance Urine pH Ur Specific [place] Urine Protein Urine Glucose (UA) Urine Ketones Urine Blood Urine Nitrite Ur Leukocyte Esterase Blood Type Antibody Screen Crossmatch Assessment and Plan (1) Acute blood loss anemia: Status: Acute (2) Dizziness: Status: Acute Plan Adelso Mcmanus is a 64 y/o man with a PMHx significant for liver cirrhosis due to hep C infection, 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 NPO except for meds. PRBCs transfusion as needed Hgb <7. One unit ordered by ED and currently infusing. Start therapy with octreotide and Protonix. Ceftriaxone IV for prophylaxis. Check occult blood test. Orthostatic vital signs. GI consult. Carvedilol discontinued in the past due to episodes of dizziness. *most recent EGD showed normal esophagus, gastric polys x2, GAVE (APC) and duodenal lymphangiectasia. Pancytopenia, at baseline (except for above). Continue to monitor. Dizziness due to above. Fall precautions. Patient educated about fall precautions. Elevated AST and alk-phos. Likely secondary to liver disease. Continue to monitor. Elevated ammonia, chronically elevated. No clinical picture of acute encephalopathy. Continue lactulose per home dosing. med rec pending Code status: Full DVT prophylaxis: SCDs Patient will need hospitalization for all as needed 2 midnights for acute blood loss anemia concerning for esophageal variceal bleeding treatment with PRBC transfusion, IV octreotide, IV PPI and evaluation by subspecialty for possible procedure. This documentation was generated using dictation software; minor spreading or synthetic plasterer errors may be present. Quality Stroke Does the patient have a stroke diagnosis?: No VTE Prior VTE?: No VTE Risk Level:: Medical - moderate - high VTE Device Contraindication: N/A - Device Ordered VTE Drug Contraindication: Treatment Not Indicated
[2025-07-13] MEDS: Octreotide Acetate 100 MCG/ML AMPUL IVPUSH (01:47)
[2025-07-13 01:50] LABS: Magnesium 2.0 mg/dL (1.6-2.6)
[2025-07-13 05:17] LABS: Hematocrit 24.4 % (42.0-52.0); Hemoglobin 7.4 g/dl (14.0-18.0); Imm Gran Abs Auto 0.00 X10*3/uL (0.00-0.03); Imm Gran Pct Auto 0.0 % (0.0-0.4); Lymphocytes Absolute Auto 0.4 X10*3/uL (1.2-4.9); Mean Corpuscular HGB Conc 30.3 g/dl (31.0-36.0); Mean Corpuscular Hemoglobin 24.5 pg (27.0-33.0); Mean Corpuscular Volume 80.8 fL (80.0-98.0); NRBC Abs Auto 0.000 X10*3/uL (0.0-0.012); NRBC Pct Auto 0.0 /100WBC (0.0-0.2); Platelet Count 21 X10*3/uL (160-400); Red Blood Count 3.02 X10*6/uL (4.60-5.80); SCAN SMEAR FLAG 1; White Blood Count 1.2 X10*3/uL (4.8-10.8)
[2025-07-13 05:18] LABS: MANUAL DIFF FLAG SCAN
[2025-07-13 05:31] LABS: Alanine Aminotransferase 21 U/L (0-40); Albumin Level 2.9 g/dL (3.5-5.0); Alkaline Phosphatase 109 U/L (39-117); Anion Gap 9 (12-20); Aspartate Amino Transferase 35 U/L (5-37); Blood Urea Nitrogen 16 mg/dL (9-16); Calcium 8.2 mg/dL (8.4-10.2); Carbon Dioxide 22 mmol/L (22-29); Chloride 115 mmol/L (96-108); Creatinine Clr Calc Pharmacy 119.6; Estimated Glomerular Filt Rate > 60; Magnesium 2.0 mg/dL (1.6-2.6); Potassium 4.4 mmol/L (3.3-5.1); Sodium 142 mmol/L (135-145); Total Protein 5.9 g/dL (6.5-8.0)
--- NOTE | 2025-07-13 05:54 | HO.NURTONUR ---
Pt biba with complaint of dizziness, lightheaded and high blood pressure. Pt states he has not been taking his medication since recently starting a new medication, pt unable to state the names of the medications. Pt also later reported having two falls in the last coupe days, denies headstrike or loc. Pt denies chest pain, n/v/d, or any other symptoms of concern. In the ED labs revealed hemoglobin of 6.8, MCV 79.5, platelets 25 (baseline), WBC 1.5 (baseline), INR is 1.5, CO2 20, anion gap 11, BUN 16 and creatinine 0.76, AST , ALT 26,alk-phos 121, ammonia 78, troponing 18.9, and BNP 115, albumin 3.1. UA, CT abd/pelvis, Chest CT and Cspine ST are negative. EKG- NSR. Pt received 1 unit of RBCs, tolerated well no reaction noted. Pt being admitted for anemia and further evaluation. Pt is a&o to self and place and able to ambulate with steady gait. Pt has 20G IV in LAC and has been medicated per nov. Pt currently has octreotide acetate IVF @ 25.05 mls/hr. Pt has elopement band on and bed alarm as pt was found trying to leave. Educated pt on importance of admission, pt agreeable and cooperative.
--- NOTE | 2025-07-13 07:45 | PC.NURSE ---
assumed care of patient at 0700, patient is awake and alert, VSS. patient has octeotride running 25mcg/hr.
--- NOTE | 2025-07-13 07:46 | P.CNGI_ITS ---
History of Present Illness Data of Consult Service Date: 07/13/25 Requesting physician: Mikey Lopze Primary Care Provider: Leta Dick MD HPI Reason for consult: Anemia, GIB, cirrhosis This is a 64-year-old gentleman with past medical history of chronic HCV (s/p SVR) that has led to cirrhosis complicated by portal hypertension, history of large varices status post EVBL 08/2024, s/p TIPS 10/2024 who presented to the hospital for lightheadedness and falls x 2 and found to have severe symptomatic anemia. Seen with the help of [facility] winter[facility]. Patient reports feeling lightheaded and dizzy 2 days prior to hospitalization with two falls, pt denies hitting his head or losing consciousness. No abdominal pain, nausea, vomiting but has noted soft black stools in the last few days. He also reports bilateral leg pain and swelling. Has had stable vitals since coming in. Labs with initial hemoglobin of 6.8, that has improved to 7.4 with 1 unit of PRBC. Platelets remain low, but at his baseline. INR is 1.5, again also at his baseline. Chem 7 without [place] or abnormal LFTs. He is chronically malnourished with low albumin. Recent endoscopy: EGD 05/21/2025: No varices. Gastric polyps. GAVE s/p APC. Of note, he is overdue for a colonoscopy due to houselessness and difficulty with prepping in a alf. Review of Systems 2 Review of Systems: Yes all other systems are reviewed and are negative PMFSH Past Medical History Medical History Portal vein thrombosis Eye abnormality Cirrhosis of liver Pancytopenia Hyperammonemia Pancytopenia Obesity (BMI 30.0-34.9) Fall Pancytopenia Hepatic encephalopathy Cirrhosis Splenic vein thrombosis Sepsis Cirrhosis of liver with ascites Abdominal pain Thrombocytopenia Pancytopenia Cirrhosis Hepatitis C virus infection Esophageal varices Pancytopenia Iron deficiency anemia Cirrhosis Hepatitis C HBP (high blood pressure) Family History Family History Maternal Grandmother Breast CA Uterus cancer Mother Primary lung cancer of unknown cell type Surgical History Surgical History S/P TIPS (transjugular intrahepatic portosystemic shunt) H/O left inguinal hernia repair H/O eye surgery History of esophagogastroduodenoscopy (EGD) H/O colonoscopy Social History Social History Household Members: Other Household Members Other:: pt comes from a alf Housing: Other Housing Other:: alf Are you a primary spiritual care coordinator to a significant other at home: No Do you presently have visiting nurse or other home services: No Alcohol intake: former Comment: pt refusing alarm's Patient Tobacco Use Status: Never used Tobacco Tobacco use type: Cigarette Cigarette Packs Per Day: 1 Cigarettes Per Day: 0.5 Years Smoked: 45 Smoked in Last 30 Days: No e-Cigarette/Vaping Use: Never Used Second Hand Smoke Exposure: No Use of substances other than those prescribed or required for medical reasons: No Substance Use Type: Heroin Advance Directives: Yes Advance Directives on File: Yes Advance Directives Date on File: 04/02/24 service: No Current occupational status: retired Meds Allergies Allergy/AdvReac Type Severity Reaction Status Date / Time dicyclomine (From Bentyl) Allergy Unknown Verified 07/12/25 19:36 aspirin AdvReac Severe stomach Verified 07/12/25 19:36 bleeding NSAIDS (Non-Steroidal AdvReac Severe liver Verified 07/12/25 19:36 Anti-Inflamma concerns Active Medications: Current Medications Acetaminophen (Acetaminophen 325 Mg Tablet) 650 mg PO Q6H PRN PRN Reason: Pain, Mild 1-3,fever,headache Calcium Carbonate (Calcium Carbonate 750 Mg Tab.Chew) 750 mg PO Q4H PRN PRN Reason: Heartburn Ceftriaxone Sodium 1 gm/ (Sodium Chloride) 50 mls @ 100 mls/hr IV BEDTIME LALI Last Infusion: 07/13/25 02:28 Dose: Infused Octreotide Acetate 500 mcg/ (Sodium Chloride) 501 mls @ 25.05 mls/hr IVCONT .Q20H LALI Last Admin: 07/13/25 04:11 Dose: 25 mcg/hr, 25.05 mls/hr Magnesium Hydroxide (Milk Of Magnesia 30 Ml Oral.Susp) 30 ml PO DAILY PRN PRN Reason: Constipation Melatonin (Melatonin 3 Mg Tablet) 6 mg PO BEDTIME PRN PRN Reason: Insomnia Pantoprazole Sodium (Pantoprazole Sodium 40 Mg/10 Ml Vial) 40 mg IVPUSH BID LALI Sodium Chloride (0.9 % Sodium Chloride Flush 3 Ml Syringe) 3 ml IVFLUSH QSHIFT LALI Last Admin: 07/13/25 07:14 Dose: Not Given Home Medications ?Medication ?Instructions ?Recorded ?Confirmed ?Last Taken ?Type blood pressure test kit-large #1 ea 05/27/25 Unknown History (Omron Blood Pressure Monitor-3 Series kit) lactulose 10 gram/15 mL oral 40 g PO BID 06/04/2512/02 Unknown History solution Physical Exam 2 Exam: Exam: No apparent distress R sided enucleation Nonicteric Abdomen soft, nondistended Alert and oriented x3, no asterixis LE edema R>L Vital Signs: Vital Signs: Last Vital Signs Temp 97.7 F 07/13/25 07:43 Pulse 65 07/13/25 07:43 Resp 16 07/13/25 07:43 BP 114/48 L 07/13/25 07:43 Pulse Ox 100 07/13/25 07:43 O2 Del Method Room Air 07/13/25 07:43 BMI result Body Mass Index 29.6 Results Labs 07/13/25 05:10 07/13/25 05:10 Labs: Short CBC 07/12/25 07/13/25 Range/Units 20:10 05:10 WBC 1.5 L 1.2 L (4.8-10.8) X10*3/uL Hgb 6.8 L* 7.4 L (14.0-18.0) g/dl Hct 22.8 L 24.4 L (42.0-52.0) % Plt Count 25 L 21 L (160-400) X10*3/uL BMP 07/12/25 07/13/25 20:10 05:10 Sodium 142 142 Potassium 4.5 4.4 Chloride 116 H 115 H Carbon Dioxide 20 L 22 BUN 16 16 Creatinine 0.76 0.77 Calcium 8.3 L 8.2 L Liver Function 07/12/25 07/13/25 Range/Units 20:10 05:10 Total Bilirubin 1.0 1.1 H (0.0-1.0) mg/dL AST 58 H 35 (5-37) U/L ALT 26 21 (0-40) U/L Alkaline Phosphatase 121 H 109 (39-117) U/L Albumin 3.1 L 2.9 L (3.5-5.0) g/dL Urine 07/12/25 Range/Units 21:01 Urine Color Yellow Urine Appearance Clear Urine pH 6.0 (5.0-9.0) Ur Specific [place] 1.015 (1.005-1.025) Urine Protein Negative (Neg-Trace) mg/dL Urine Glucose (UA) Negative (Negative) mg/dL Assessment and Plan (1) Acute on chronic anemia: Status: Resolved (2) Cirrhosis of liver: Status: Inactive (3) S/P TIPS (transjugular intrahepatic portosystemic shunt): Status: Inactive Plan Chronic HCV genotype 1a with cirrhosis s/p Epclusa with SVR 2023 Portal vein thrombosis S/p TIPS 10/15/24 MELD 3.0: 11 (98% est 90 day survival) Presenting with symptomatic anemia with possible UGIB based on report of melanotic stools. Ddx include GAVE, AVMs, PHG. Variceal bleeding less based on endoscopic assessment 2 months ago. No HE or ascites clinically at the time of evaluation. Plan: - x2 IV access at all times - Monitor H/H. Transfuse for Hb <7. Please avoid over transfusing beyond Hb 8 as that may worsen portal pressures. - IV Vit K 10 mg once - 2u platelets darin - kindly recheck cbc 30 mins after transfusion completed - Please keep NPO for egd today as long as platelet count improves - Nutrition consult for sarcopenia. Thank you for allowing me to participate in his care. Procedures Date of Service Date of Service: 07/13/25
--- NOTE | 2025-07-13 08:29 | HO.ANESPROP2 ---
Documented by User: Griselda Aparicio NP 07/13/25 09:11 HPI - Anesthesia Eval Consult details Narrative: 64 yr old male for upper endoscopy s/p upper EGD with APC with MAC 05/22/25 Splenic vein thrombosis s/p TIPS Oct 2024, large varices s/ EVBL: INR 1.5; H/H 7.4/24.4, s/p 1 unit PRBCs, platelets 21 - Dr. Antonio has orderd 2 units platelets [facility] Active Problems Active Problems: All Active Problems Acute blood loss anemia (Acute) Pancytopenia (Acute) Falls frequently (Acute) Acute on chronic anemia (Acute) Portal vein thrombosis (Acute) NSVT (nonsustained ventricular tachycardia) (Acute) Dizziness (Acute) Tobacco use disorder (Acute) Acute hepatic encephalopathy (Acute) Dizziness (Acute) Physical deconditioning (Acute) Leukopenia (Acute) Hyperchloremic metabolic acidosis (Acute) Chest pain (Acute) Back pain (Acute) Bacteremia (Acute) Vomiting (Acute) Atrophic gastritis (Acute) Hyperplastic adenomatous polyp of stomach (Acute) Iron deficiency anemia (Acute) Hepatitis B core antibody positive (Acute) Thickening of wall of gallbladder (Acute) Obesity (BMI 30.0-34.9) (Chronic) Thrombocytopenia (Chronic) Esophageal varices (Acute) Past Medical History Medical History Portal vein thrombosis Eye abnormality Cirrhosis of liver Pancytopenia Hyperammonemia Pancytopenia Obesity (BMI 30.0-34.9) Fall Pancytopenia Hepatic encephalopathy Cirrhosis Splenic vein thrombosis Sepsis Cirrhosis of liver with ascites Abdominal pain Thrombocytopenia Pancytopenia Cirrhosis Hepatitis C virus infection Esophageal varices Pancytopenia Iron deficiency anemia Cirrhosis Hepatitis C HBP (high blood pressure) Family History Family History Maternal Grandmother Breast CA Uterus cancer Mother Primary lung cancer of unknown cell type Family history of problems with anesthesia: No Surgical History Surgical History S/P TIPS (transjugular intrahepatic portosystemic shunt) H/O left inguinal hernia repair H/O eye surgery History of esophagogastroduodenoscopy (EGD) H/O colonoscopy History of Problems with Anesthesia: No Social History Social History Household Members: Other Household Members Other:: pt comes from a skilled nursing Housing: Other Housing Other:: skilled nursing Are you a primary critical care nurse specialist to a significant other at home: No Do you presently have visiting nurse or other home services: Yes Alcohol intake: former Comment: pt refusing alarm's Patient Tobacco Use Status: Current everyday Tobacco user Tobacco use type: Cigarette Cigarette Packs Per Day: 1 Cigarettes Per Day: 0.5 Years Smoked: 45 Smoked in Last 30 Days: Yes e-Cigarette/Vaping Use: Never Used Patient Interested in Nicotine Replacement: No Second Hand Smoke Exposure: No Use of substances other than those prescribed or required for medical reasons: No Substance Use Type: Heroin Have you been hit, kicked, punched, or otherwise hurt by someone within the past year? If so, by whom?: No Are you DNR?: No Advance Directives: Yes Advance Directives on File: Yes Advance Directives Date on File: 04/02/24 service: No Current occupational status: retired Meds Allergies Allergy/AdvReac Type Severity Reaction Status Date / Time dicyclomine (From Bentyl) Allergy Unknown Verified 07/12/25 19:36 aspirin AdvReac Severe stomach Verified 07/12/25 19:36 bleeding NSAIDS (Non-Steroidal AdvReac Severe liver Verified 07/12/25 19:36 Anti-Inflamma concerns Active Medications: Current Medications Acetaminophen (Acetaminophen 325 Mg Tablet) 650 mg PO Q6H PRN PRN Reason: Pain, Mild 1-3,fever,headache Calcium Carbonate (Calcium Carbonate 750 Mg Tab.Chew) 750 mg PO Q4H PRN PRN Reason: Heartburn Ceftriaxone Sodium 1 gm/ (Sodium Chloride) 50 mls @ 100 mls/hr IV BEDTIME [facility] Last Infusion: 07/13/25 02:28 Dose: Infused Octreotide Acetate 500 mcg/ (Sodium Chloride) 501 mls @ 25.05 mls/hr IVCONT .Q20H [facility] Last Admin: 07/13/25 04:11 Dose: 25 mcg/hr, 25.05 mls/hr Magnesium Hydroxide (Milk Of Magnesia 30 Ml Oral.Susp) 30 ml PO DAILY PRN PRN Reason: Constipation Melatonin (Melatonin 3 Mg Tablet) 6 mg PO BEDTIME PRN PRN Reason: Insomnia Pantoprazole Sodium (Pantoprazole Sodium 40 Mg/10 Ml Vial) 40 mg IVPUSH BID [facility] Sodium Chloride (0.9 % Sodium Chloride Flush 3 Ml Syringe) 3 ml IVFLUSH QSHIFT [facility] Last Admin: 07/13/25 07:14 Dose: Not Given Home Medications ?Medication ?Instructions ?Recorded ?Confirmed ?Last Taken ?Type blood pressure test kit-large #1 ea 05/27/25 Unknown History (Omron Blood Pressure Monitor-3 Series kit) lactulose 10 gram/15 mL oral 40 g PO BID 06/04/25 07/13/25 Unknown History solution Exam Height,Weight and Vital Signs: Height 6 ft Weight 98.9 kg Last Vital Signs Temp 97.7 F 07/13/25 07:43 Pulse 65 07/13/25 07:43 Resp 16 07/13/25 07:43 BP 114/48 L 07/13/25 07:43 Pulse Ox 100 07/13/25 07:43 O2 Del Method Room Air 07/13/25 07:43 Pertinent Lab Results Pertinent Lab Results: Laboratory Tests 07/12/25 07/12/25 07/12/25 20:10 21:01 22:42 WBC 1.5 L RBC 2.88 L Hgb 6.8 L* Hct 22.8 L MCV 79.2 L MCH 23.6 L MCHC 29.8 L RDW 16.4 H Plt Count 25 L MPV Not Reportable Immature Gran % (Auto) 0.0 Neut % (Auto) 56.5 Lymph % (Auto) 31.3 [place] % (Auto) 9.5 Eos % (Auto) 2.0 Baso % (Auto) 0.7 Lymph # (Auto) 0.5 L [place] # (Auto) 0.1 Eos # (Auto) 0.0 Baso # (Auto) 0.0 Abs Immat Gran (auto) 0.00 Absolute Neuts (auto) 0.8 L Absolute Nucleated RBC 0.000 Nucleated RBC % (auto) 0.0 Smear Tech's Comments VERIFIED PT INR Sodium 142 Potassium 4.5 Chloride 116 H Carbon Dioxide 20 L Anion Gap 11 L BUN 16 Creatinine 0.76 Estim Creat Clear Calc 121.1 Estimated GFR > 60 Random Glucose 86 Calcium 8.3 L Magnesium 2.0 Total Bilirubin 1.0 AST 58 H ALT 26 Alkaline Phosphatase 121 H Ammonia 78 H Troponin I High Sens 18.9 D NT-Pro-B Natriuret Pep 115.0 Total Protein 6.5 Albumin 3.1 L Urine Color Yellow Urine Appearance Clear Urine pH 6.0 Ur Specific [place] 1.015 Urine Protein Negative Urine Glucose (UA) Negative Urine Ketones Negative Urine Blood Negative Urine Nitrite Negative Ur Leukocyte Esterase Negative Blood Type O Negative Antibody Screen NEGATIVE Crossmatch See Detail 07/13/25 07/13/25 00:47 05:10 WBC 1.2 L RBC 3.02 L Hgb 7.4 L Hct 24.4 L MCV 80.8 MCH 24.5 L MCHC 30.3 L RDW 16.4 H Plt Count 21 L MPV Not Reportable Immature Gran % (Auto) 0.0 Neut % (Auto) 50.0 Lymph % (Auto) 37.1 [place] % (Auto) 11.2 H Eos % (Auto) 1.7 Baso % (Auto) 0.0 Lymph # (Auto) 0.4 L [place] # (Auto) 0.1 Eos # (Auto) 0.0 Baso # (Auto) 0.0 Abs Immat Gran (auto) 0.00 Absolute Neuts (auto) 0.6 L Absolute Nucleated RBC 0.000 Nucleated RBC % (auto) 0.0 Smear Tech's Comments VERIFIED PT 17.2 H INR 1.5 H Sodium 142 Potassium 4.4 Chloride 115 H Carbon Dioxide 22 Anion Gap 9 L BUN 16 Creatinine 0.77 Estim Creat Clear Calc 119.6 Estimated GFR > 60 Random Glucose 95 Calcium 8.2 L Magnesium 2.0 Total Bilirubin 1.1 H AST 35 ALT 21 Alkaline Phosphatase 109 Ammonia Troponin I High Sens NT-Pro-B Natriuret Pep Total Protein 5.9 L Albumin 2.9 L Urine Color Urine Appearance Urine pH Ur Specific [place] Urine Protein Urine Glucose (UA) Urine Ketones Urine Blood Urine Nitrite Ur Leukocyte Esterase Blood Type Antibody Screen Crossmatch Narrative Narrative: EKG 07/12/25 Vent. Rate : 75 BPM Atrial Rate : 75 BPM P-R Int : 148 ms QRS Dur : 84 ms QT Int : 412 ms P-R-T Axes : 40 17 69 degrees QTcB Int : 460 ms Normal sinus rhythm Normal ECG When compared with ECG of 02-Jul-2025 03:57, No significant change was found Assessment and Plan Final Anesthetic Review Family History of Problems with Anesthesia: No History of Problems with Anesthesia: No Documented by User: Manny Shields MD 07/13/25 16:18 PMFSH Past Medical History Medical History Portal vein thrombosis Eye abnormality Cirrhosis of liver Pancytopenia Hyperammonemia Pancytopenia Obesity (BMI 30.0-34.9) Fall Pancytopenia Hepatic encephalopathy Cirrhosis Splenic vein thrombosis Sepsis Cirrhosis of liver with ascites Abdominal pain Thrombocytopenia Pancytopenia Cirrhosis Hepatitis C virus infection Esophageal varices Pancytopenia Iron deficiency anemia Cirrhosis Hepatitis C HBP (high blood pressure) Family History Family History Maternal Grandmother Breast CA Uterus cancer Mother Primary lung cancer of unknown cell type Surgical History Surgical History S/P TIPS (transjugular intrahepatic portosystemic shunt) H/O left inguinal hernia repair H/O eye surgery History of esophagogastroduodenoscopy (EGD) H/O colonoscopy Social History Social History Household Members: Other Household Members Other:: pt comes from a skilled nursing Housing: Other Housing Other:: skilled nursing Are you a primary critical care nurse specialist to a significant other at home: No Do you presently have visiting nurse or other home services: Yes Alcohol intake: former Comment: pt refusing alarm's Patient Tobacco Use Status: Current everyday Tobacco user Tobacco use type: Cigarette Cigarette Packs Per Day: 1 Cigarettes Per Day: 0.5 Years Smoked: 45 Smoked in Last 30 Days: Yes e-Cigarette/Vaping Use: Never Used Patient Interested in Nicotine Replacement: No Second Hand Smoke Exposure: No Use of substances other than those prescribed or required for medical reasons: No Substance Use Type: Heroin Have you been hit, kicked, punched, or otherwise hurt by someone within the past year? If so, by whom?: No Are you DNR?: No Advance Directives: Yes Advance Directives on File: Yes Advance Directives Date on File: 04/02/24 service: No Current occupational status: retired Meds Allergies Allergy/AdvReac Type Severity Reaction Status Date / Time dicyclomine (From Bentyl) Allergy Unknown Verified 07/12/25 19:36 aspirin AdvReac Severe stomach Verified 07/12/25 19:36 bleeding NSAIDS (Non-Steroidal AdvReac Severe liver Verified 07/12/25 19:36 Anti-Inflamma concerns Home Medications ?Medication ?Instructions ?Recorded ?Confirmed ?Last Taken ?Type blood pressure test kit-large #1 ea 05/27/25 Unknown History (Omron Blood Pressure Monitor-3 Series kit) lactulose 10 gram/15 mL oral 40 g PO BID 06/04/25 07/13/25 Unknown History solution Exam Airway Mallampati Class: II TM Dist: >3cm Neck ROM: Full Heart: ok Lungs: ok Assessment and Plan Assessment Anesthesia Assessment: Anesthesia Plan Discussed and Chart Reviewed Final Anesthetic Review NPO: Yes ASA Class: IV Final Preanesthetic Review: No Changes in Pt Med Stat, Meds/Allgs Chart Reviewed, Consent Obtained/Reviewed and Anes Risks/Benef Reviewed Patient Risk: High Procedure Risk: Intermediate Anesthetic Plan Anesthetic Plan: Agree w/ Assess. and Plan and TIVA Disposition: Standard PACU
--- NOTE | 2025-07-13 09:57 | PC.NURSE ---
additional IV access in the upper right arm #20. wallisian interp at bedside to assist in assessment. patient discusses wishes to leave AMA, upset he has not been fed anything, explained to patient plan of care and importance to remain npo at this time. patient understanding of plan of care and agreeable to staying in hospital.
--- NOTE | 2025-07-13 11:38 | MHC.CM.PN ---
Pt. is SSO, he lives at the half-way at [address] [place] [address] in [place]. PCP confirmed: Dr. Yuriy Dick. Pt. reports that he has a [employer] that comes most days to assist with personal care and cleaning. He reports that he does not use DME. He will need assistance with transport home at [place]. HCP on file and confirmed: Eugenia. DCP: home with services, CM to follow for DC needs.
--- NOTE | 2025-07-13 12:01 | PHA.MEDREC ---
Addendum entered by Gerhard Peng PharmD 07/13/25 12:03: reviewed Original Note: Pharmacy Consult ? Medication Reconciliation Pharmacy has completed the medication reconciliation. Spoke with pt and he is a poor historian with his medications. Left voicemail for pt HCP (Eugenia) a few times this Am with no luck; pt admitted with us 06/09-06/10 and utilized that dc packet to confirm med rec and will update if Eugenia calls back.
--- NOTE | 2025-07-13 14:18 | PC.NURSE ---
PATIENT REMAINS IN ed AT THIS TIME HAS EGD TODAY AT APROX 1600, NURSE TO NURSE GIVEN TO MELODY IN SSS. PATIENT VSS, IS ON UNIT 2/2 PLATELETS, SEE TAR, PATIENT TOLERATING WELL. PATIENT VOIDED 600 CC IN URINAL AT BEDSIDE. OCTREOTIDE RUNNING AT 25 MCG/HR.
--- NOTE | 2025-07-13 15:45 | P.PNIM_ITS ---
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 Motor grossly intact bilaterally Extremities: No edema Psych: Appropriate affect Vital Signs: Vital Signs: Last Vital Signs Temp 97.9 F 07/13/25 15:24 Pulse 71 07/13/25 15:24 Resp 16 07/13/25 15:24 BP 138/66 07/13/25 15:24 Pulse Ox 99 07/13/25 14:20 O2 Del Method Room Air 07/13/25 14:20 BMI result Body Mass Index 29.6 Objective Data Active Medications Acetaminophen (Acetaminophen 325 Mg Tablet) 650 mg PO Q6H PRN PRN Reason: Pain, Mild 1-3,fever,headache Calcium Carbonate (Calcium Carbonate 750 Mg Tab.Chew) 750 mg PO Q4H PRN PRN Reason: Heartburn Ceftriaxone Sodium 1 gm/ (Sodium Chloride) 50 mls @ 100 mls/hr IV BEDTIME [facility] Last Infusion: 07/13/25 02:28 Dose: Infused Documented By: RADHA Octreotide Acetate 500 mcg/ (Sodium Chloride) 501 mls @ 25.05 mls/hr IVCONT .Q20H [facility] Last Admin: 07/13/25 04:11 Dose: 25 mcg/hr, 25.05 mls/hr Documented By: RADHA Magnesium Hydroxide (Milk Of Magnesia 30 Ml Oral.Susp) 30 ml PO DAILY PRN PRN Reason: Constipation Melatonin (Melatonin 3 Mg Tablet) 6 mg PO BEDTIME PRN PRN Reason: Insomnia Pantoprazole Sodium (Pantoprazole Sodium 40 Mg/10 Ml Vial) 40 mg IVPUSH BID [facility] Last Admin: 07/13/25 09:48 Dose: 40 mg Documented By: PREM Sodium Chloride (0.9 % Sodium Chloride Flush 3 Ml Syringe) 3 ml IVFLUSH QSHIFT [facility] Last Admin: 07/13/25 14:25 Dose: Not Given Documented By: PREM Non-Admin Reason: IV Running Labs 07/13/25 16:46 07/13/25 05:10 Labs: Laboratory Results - last 24 hr 07/12/25 07/12/25 07/12/25 20:10 21:01 22:42 MCV 79.2 L MCH 23.6 L MCHC 29.8 L RDW 16.4 H Plt Count 25 L MPV Not Reportable Immature Gran % (Auto) 0.0 Neut % (Auto) 56.5 Lymph % (Auto) 31.3 [place] % (Auto) 9.5 Eos % (Auto) 2.0 Baso % (Auto) 0.7 Lymph # (Auto) 0.5 L [place] # (Auto) 0.1 Eos # (Auto) 0.0 Baso # (Auto) 0.0 Abs Immat Gran (auto) 0.00 Absolute Neuts (auto) 0.8 L Absolute Nucleated RBC 0.000 Nucleated RBC % (auto) 0.0 Smear Tech's Comments VERIFIED PT INR Anion Gap 11 L Estim Creat Clear Calc 121.1 Estimated GFR > 60 Random Glucose 86 Calcium 8.3 L Magnesium 2.0 Total Bilirubin 1.0 AST 58 H ALT 26 Alkaline Phosphatase 121 H Ammonia 78 H Troponin I High Sens 18.9 D NT-Pro-B Natriuret Pep 115.0 Total Protein 6.5 Albumin 3.1 L Urine Color Yellow Urine Appearance Clear Urine pH 6.0 Ur Specific [place] 1.015 Urine Protein Negative Urine Glucose (UA) Negative Urine Ketones Negative Urine Blood Negative Urine Nitrite Negative Ur Leukocyte Esterase Negative Blood Type O Negative Antibody Screen NEGATIVE Crossmatch See Detail 07/13/25 07/13/25 00:47 05:10 MCV 80.8 MCH 24.5 L MCHC 30.3 L RDW 16.4 H Plt Count 21 L MPV Not Reportable Immature Gran % (Auto) 0.0 Neut % (Auto) 50.0 Lymph % (Auto) 37.1 [place] % (Auto) 11.2 H Eos % (Auto) 1.7 Baso % (Auto) 0.0 Lymph # (Auto) 0.4 L [place] # (Auto) 0.1 Eos # (Auto) 0.0 Baso # (Auto) 0.0 Abs Immat Gran (auto) 0.00 Absolute Neuts (auto) 0.6 L Absolute Nucleated RBC 0.000 Nucleated RBC % (auto) 0.0 Smear Tech's Comments VERIFIED PT 17.2 H INR 1.5 H Anion Gap 9 L Estim Creat Clear Calc 119.6 Estimated GFR > 60 Random Glucose 95 Calcium 8.2 L Magnesium 2.0 Total Bilirubin 1.1 H AST 35 ALT 21 Alkaline Phosphatase 109 Ammonia Troponin I High Sens NT-Pro-B Natriuret Pep Total Protein 5.9 L Albumin 2.9 L Urine Color Urine Appearance Urine pH Ur Specific [place] Urine Protein Urine Glucose (UA) Urine Ketones Urine Blood Urine Nitrite Ur Leukocyte Esterase Blood Type Antibody Screen Crossmatch Assessment and Plan (1) Thrombocytopenia: Status: Chronic (2) Acute on chronic blood loss anemia: Status: Acute Plan Adelso Mcmanus is a 64 y/o man with a PMHx significant for liver cirrhosis due to hep C infection, 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 On ceftriaxone IV for prophylaxis Follow CBC Pancytopenia Transfused as above Continue to monitor. Dizziness Due to above Fall precautions Elevated AST and alk-phos Likely secondary to liver disease Currently trending down Elevated ammonia Chronically elevated No clinical picture of acute encephalopathy Continue lactulose per home dosing. Code status: Full DVT prophylaxis: SCDs Pt requires continued hospitalization due to CBC monitoring and additional workup with EGD to evaluate for acute GI bleed. Quality Stroke Does the patient have a stroke diagnosis?: No VTE Prior VTE?: No VTE Risk Level:: Medical - moderate - high VTE Device Contraindication: N/A - Device Ordered VTE Drug Contraindication: Treatment Not Indicated
[2025-07-13 16:58] LABS: Hematocrit 26.1 % (42.0-52.0); Hemoglobin 7.9 g/dl (14.0-18.0); Mean Corpuscular HGB Conc 30.3 g/dl (31.0-36.0); Mean Corpuscular Hemoglobin 24.4 pg (27.0-33.0); Mean Corpuscular Volume 80.6 fL (80.0-98.0); NRBC Abs Auto 0.000 X10*3/uL (0.0-0.012); NRBC Pct Auto 0.0 /100WBC (0.0-0.2); Red Blood Count 3.24 X10*6/uL (4.60-5.80)
[2025-07-13 17:06] LABS: Platelet Count 34 X10*3/uL (160-400); White Blood Count 1.4 X10*3/uL (4.8-10.8)
--- NOTE | 2025-07-13 17:54 | P.OP_ITS ---
Operative Note Operative Note Date of Service: 05/21/25 Narrative: Procedure: Esophagogastroduodenoscopy Endoscopist: Yajaira Antonio MD Indication: Anemia, cirrhosis Anesthesia Provider: Manny Shields MD Anesthesia Type: MAC EGD Procedure:?? The procedure, indications, preparation and potential complications were reviewed with the patient's HCP (Eugenia) with the help of historic interpreter, who indicated understanding and gave written informed consent to proceed. A physical exam was performed. The endoscope was introduced through the mouth, and advanced to the second part of duodenum. The mucosa was carefully examined on slow withdrawal of the endoscope. The patient tolerated the procedure well. There were no immediate complications.? ? EGD Findings:? * Esophagus:? No varices were appreciated on exam today. The Z line was at 40 cm. * Stomach:?Patchy erythema in a watermelon pattern in the antrum consistent with gastric antral vascular ectasia (GAVE) a few spots were spontaneously oozing. Retroflexion was performed in the cardia, no fundal varices appreciated. A polyp was noted in the body of the stomach measuring 8 mm. This was not attempted to be removed. Using a circumferential catheter, argon plasma coagulation (APC) was applied for GAVE with successful hemostasis. * Duodenum:? Edema and erythema along with lymphangiectasis was noted in the whole of the examined duodenum. EGD Impressions:? * Normal esophageal mucosa * Oozing GAVE (APC) * Gastric polyp * Duodenal lymphangectasia ?? Recommendations:?? * Slow chronic UGIB likely 2/2 GAVE * Can discontinue Octreotide. PPI can be switched to PO once daily * Cont cipro x 5 days total * OK for regular diet today. * Check CBC tmrw AM and is stable, ok for discharge from GI standpoint * Will book him for elective EGD with repeat ablation in 6-8 weeks
[2025-07-13] MEDS: 0.9 % Sodium Chloride Flush 3 ML SYRINGE IVFLUSH (20:43)
[2025-07-14] VITALS (9 sets, daily range): BP systolic 122–163; BP diastolic 48–73; PULSE 66–80; RESP 16–20; TEMP 36.7–37.4; O2SAT 96–100
[2025-07-14 07:23] LABS: Hematocrit 23.3 % (42.0-52.0); Hemoglobin 7.2 g/dl (14.0-18.0); Mean Corpuscular HGB Conc 30.9 g/dl (31.0-36.0); Mean Corpuscular Hemoglobin 24.6 pg (27.0-33.0); Mean Corpuscular Volume 79.5 fL (80.0-98.0); NRBC Abs Auto 0.000 X10*3/uL (0.0-0.012); NRBC Pct Auto 0.0 /100WBC (0.0-0.2); Red Blood Count 2.93 X10*6/uL (4.60-5.80)
[2025-07-14 07:25] LABS: Alanine Aminotransferase 21 U/L (0-40); Albumin Level 2.8 g/dL (3.5-5.0); Alkaline Phosphatase 106 U/L (39-117); Anion Gap 8 (12-20); Aspartate Amino Transferase 29 U/L (5-37); Blood Urea Nitrogen 17 mg/dL (9-16); Calcium 7.7 mg/dL (8.4-10.2); Carbon Dioxide 22 mmol/L (22-29); Chloride 113 mmol/L (96-108); Creatinine Clr Calc Pharmacy 107.0; Estimated Glomerular Filt Rate > 60; Platelet Count 27 X10*3/uL (160-400); Potassium 4.4 mmol/L (3.3-5.1); Sodium 139 mmol/L (135-145); Total Protein 5.7 g/dL (6.5-8.0); White Blood Count 1.2 X10*3/uL (4.8-10.8)
--- NOTE | 2025-07-14 08:01 | HO.POSTANES ---
Post Anesthesia Evaluation Post Anesthesia Evaluation Date of Service: 07/14/25 Vital Signs: Vital Signs Temp Pulse Resp BP Pulse Ox O2 Del Method 07/14/25 07:46 98.0 F 66 18 124/58 L 97 Room Air 07/14/25 03:04 98.8 F 71 16 123/59 L 96 Room Air 07/13/25 23:02 97.4 F 63 16 124/60 97 Room Air Anesthesia: TIVA Mental Status: Awake Pain Control: Satisfactory Nausea/Vomiting: None Hydration: Adequate Anesthesia-Related Issues: No Anes. Related Issues
[2025-07-14] MEDS: 0.9 % Sodium Chloride Flush 3 ML SYRINGE IVFLUSH ×2 (08:35→16:04)
--- NOTE | 2025-07-14 16:57 | HO.PM.IMPN ---
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 Motor grossly intact bilaterally Extremities: No edema Psych: Appropriate affect Vital Signs: Vital Signs: Last Vital Signs Temp 98.4 F 07/14/25 15:25 Pulse 73 07/14/25 15:32 Resp 18 07/14/25 15:25 BP 163/71 H 07/14/25 15:32 Pulse Ox 96 07/14/25 15:25 O2 Del Method Room Air 07/14/25 15:25 BMI result Body Mass Index 29.6 Objective Data Active Medications Acetaminophen (Acetaminophen 325 Mg Tablet) 650 mg PO Q6H PRN PRN Reason: Pain, Mild 1-3,fever,headache Amlodipine Besylate (Amlodipine Besylate 5 Mg Tablet) 5 mg PO DAILY [facility]; Protocol Last Admin: 07/14/25 08:35 Dose: 5 mg Documented By: MATILDE Calcium Carbonate (Calcium Carbonate 750 Mg Tab.Chew) 750 mg PO Q4H PRN PRN Reason: Heartburn Ceftriaxone Sodium 1 gm/ (Sodium Chloride) 50 mls @ 100 mls/hr IV BEDTIME LALI Last Infusion: 07/13/25 21:13 Dose: Infused Documented By: ISABEL Lactulose (Lactulose 20 Gm/30 Ml Solution) 40 gm PO BID LALI Last Admin: 07/14/25 08:35 Dose: 40 gm Documented By: MATILDE Magnesium Hydroxide (Milk Of Magnesia 30 Ml Oral.Susp) 30 ml PO DAILY PRN PRN Reason: Constipation Melatonin (Melatonin 3 Mg Tablet) 6 mg PO BEDTIME PRN PRN Reason: Insomnia Naloxone HCl (Naloxone Hcl 0.4 Mg/Ml Vial) 0.04 mg IVPUSH Q5M PRN PRN Reason: Excessive sedation or RR < 8 Omeprazole (Omeprazole 40 Mg Capsule.) 40 mg PO DAILY@0630 [facility] Last Admin: 07/14/25 05:33 Dose: 40 mg Documented By: ISABEL Rifaximin (Rifaximin 550 Mg Tablet) 550 mg PO BID [facility] Last Admin: 07/14/25 08:35 Dose: 550 mg Documented By: MATILDE Sodium Chloride (0.9 % Sodium Chloride Flush 3 Ml Syringe) 3 ml IVFLUSH QSHIFT [facility] Last Admin: 07/14/25 16:04 Dose: 3 ml Documented By: MATILDE Labs 07/14/25 06:25 07/14/25 06:25 Labs: Laboratory Results - last 24 hr 07/13/25 07/13/25 07/14/25 15:57 16:46 06:25 MCV Cancelled 80.6 79.5 L MCH Cancelled 24.4 L 24.6 L MCHC Cancelled 30.3 L 30.9 L RDW Cancelled 16.4 H 15.9 Plt Count Cancelled 34 L D 27 L MPV Cancelled Not Reportable TNP Absolute Nucleated RBC Cancelled 0.000 0.000 Nucleated RBC % (auto) Cancelled 0.0 0.0 Anion Gap 8 L Estim Creat Clear Calc 107.0 Estimated GFR > 60 Random Glucose 91 Calcium 7.7 L D Total Bilirubin 1.1 H AST 29 ALT 21 Alkaline Phosphatase 106 Total Protein 5.7 L Albumin 2.8 L Assessment and Plan (1) UGIB (upper gastrointestinal bleed): Status: Resolved Plan Adelso Mcmanus is a 64 y/o man with a PMHx significant for 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 PPI Slight drop in Hgb to 7.2 this morning On ceftriaxone IV for prophylaxis, will switch to cipro for a total of 5 days, per GI recommendations Follow CBC Pancytopenia Transfused as above Secondary to liver cirrhosis Continue to monitor. Dizziness Due to above Fall precautions Elevated AST and alk-phos Likely secondary to liver disease Currently trending down Elevated ammonia Chronically elevated No clinical picture of acute encephalopathy Continue lactulose per home dosing. Code status: Full DVT prophylaxis: SCDs Pt requires continued hospitalization as H&H dropped this morning to 7.2 -- borderline for transfusion. Pt will require additional day of monitoring to ensure H&H stable and that pt does not need additional transfusion. Quality Stroke Does the patient have a stroke diagnosis?: No VTE Prior VTE?: No VTE Risk Level:: Medical - moderate - high VTE Device Contraindication: N/A - Device Ordered VTE Drug Contraindication: Treatment Not Indicated
[2025-07-15] VITALS (8 sets, daily range): BP systolic 125–156; BP diastolic 50–69; PULSE 66–80; RESP 18–20; TEMP 36.8–37.3; O2SAT 96–100
[2025-07-15] MEDS: 0.9 % Sodium Chloride Flush 3 ML SYRINGE IVFLUSH ×2 (00:08→08:24)
[2025-07-15 07:24] LABS: Hematocrit 25.4 % (42.0-52.0); Hemoglobin 7.8 g/dl (14.0-18.0); Mean Corpuscular HGB Conc 30.7 g/dl (31.0-36.0); Mean Corpuscular Hemoglobin 24.5 pg (27.0-33.0); Mean Corpuscular Volume 79.9 fL (80.0-98.0); NRBC Abs Auto 0.000 X10*3/uL (0.0-0.012); NRBC Pct Auto 0.0 /100WBC (0.0-0.2); Platelet Count 28 X10*3/uL (160-400); Red Blood Count 3.18 X10*6/uL (4.60-5.80); White Blood Count 2.0 X10*3/uL (4.8-10.8)
--- NOTE | 2025-07-15 10:45 | MHC.CM.PN ---
Pt. 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
--- NOTE | 2025-07-15 13:20 | P.DS_ITS ---
DS: Providers Provider Date of Service: 07/15/25 Date of admission: 07/13/25 00:48 Date of discharge: 07/15/25 Primary care physician: Leta Dick MD Consults: 07/13/25 00:53 Consult to Gastroenterology Routine Consulting Provider: [facility] Gastroenterology Services Reason for consultation: Hx TIPS, acute hepatic encephalopathy, anemia Has provider been notified: No DS: Diagnosis Discharge Diagnosis (1) UGIB (upper gastrointestinal bleed): Status: Resolved DS: Summary Hospital Course Hospital Course: From admission HPI: Date of Service: 07/13/25 Attending physician on admission: Mikey Lopez Chief Complaint: Dizziness Adelso Mcmanus is a very pleasant 64 years old man with past medical history significant for 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 and essential hypertension presents to the emergency department due to dizziness upon standing up associated with shortness of breath on exertion. He mentioned that he had 2 falls landing on his buttock but denied any head trauma. He has a chronic cough that he attributes to tobacco smoking. He denied chest pain, palpitations, vomiting or nausea. He reported soft stool that he attributes to lactulose use and denied rectal bleeding or black stools. Denied hx of alcoholism. He smoked tobacco daily (few cigarettes a day) but denied illicit drug use. Last EGD by Dr. Antonio May 2025: Normal esophageal mucosa, gastric polyps x2, GAVE (APC) and duodenal lymphangiectasia In the ED today, he was found to have normal vital signs. Blood workup was remarkable for hemoglobin of 6.8, MCV 79.5, platelets 25 (baseline) and WBC 1.5 (baseline). INR is 1.5. There are no significant electrolyte imbalances but magnesium pending. There is hyperchloremia 116, CO2 20, anion gap 11, BUN 16 a nd creatinine 0.76. AST is slightly elevated, ALT 26 alk-phos 121 and bilirubin is normal. Ammonia is 78. Troponin is 18.9 and pro BNP 115. Albumin is 3.1. UA is negative for infection, hematuria or proteinuria. Abdomen and pelvis CT scan without IV contrast showed no acute process. Chest CTA without contrast showed no acute process. C-spine CT scan showed no acute process. ECG showed normal sinus rhythm, heart rate 75 beats per minute without ischemic changes. ED tx: One unit PRBCs Hospital course Pt was admitted to the hospital for acute on chronic blood loss anemia that was initially concerning for esophageal variceal bleeding. Pt was transfused 1 unit PRBCs in the ED and then started on octreotide and IV Protonix and empiric ceftriaxone. Pt was seen and evaluated by GI and underwent EGD on 06/12 that showed a slow, chronic, oozing UGIB likely secondary to GAVE that was ablated by GI. Octreotide was stopped, PPI change to p.o., and pt started on ciprofloxacin for a total of 5 days. Pt required an additional day of hospitalization as yesterday his hemoglobin dropped to 7.2 and required an additional day of monitoring. H&H today stable and improved to 7.8 and pt is ready for discharge. Pt will be discharged on levofloxacin 750 mg daily x4 days as well as omeprazole 40 mg daily, to be taken until told otherwise by GI. Pt should follow up with Dr. Antonio in GI for repeat EGD with ablation in 6-8 weeks' time. Pt is strongly encouraged to take his lactulose as prescribed twice a day, which he often does not do in the community. Pt should resume medications. 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 Motor grossly intact bilaterally Extremities: No edema Psych: Appropriate affect Vital Signs: Vital Signs: Last Vital Signs Temp 98.4 F 07/15/25 11:03 Pulse 66 07/15/25 11:03 Resp 20 07/15/25 11:03 BP 125/60 07/15/25 11:03 Pulse Ox 100 07/15/25 11:03 O2 Del Method Room Air 07/15/25 11:03 BMI result Body Mass Index 29.6 DS: Data Data Completed and Pending Completed studies during hospitalization [Text1]: Procedures Bypass Portal Vein to Hepatic Vein with Synthetic Substitute, Percutaneous Approach (10/08/24) Transfusion of Nonautologous Platelets into Peripheral Vein, Percutaneous Approach (10/08/24) Labs on day of discharge: Laboratory Results - last 24 hr 07/15/25 06:46 WBC 2.0 L RBC 3.18 L Hgb 7.8 L Hct 25.4 L MCV 79.9 L MCH 24.5 L MCHC 30.7 L RDW 15.9 Plt Count 28 L MPV Not Reportable Absolute Nucleated RBC 0.000 Nucleated RBC % (auto) 0.0 Discharge Plan Discharge Anticipated Discharge Date/Time: 07/15/25 12:50 Patient Disposition: Home, Self-Care Discharge Diagnosis: Acute on chronic blood loss anemia from UGIB Referrals: Leta Soto MD [Primary Care Provider, Internal Medicine] - 1 Week Yajaira Antonio MD [Physician, Gastroenterology] - 1 Week Referral Note: F/U for EGD on 07/13 showing oozing GAVE s/p ablation. Recommendation is for elective EGD with repeat ablation in 6-8 weeks Discharge Medications: New omeprazole 40 mg capsule,delayed release(DR/EC) 40 mg PO DAILY Qty: 60 0RF Rx Instructions: Take on capsule daily levofloxacin 750 mg tablet 750 mg PO DAILY Qty: 4 0RF Rx Instructions: Take one tablet daily for the next 4 days, starting on 07/16 and ending on 07/19 Continued (DME) [facility] See Rx Instructions .Route Qty: 1 0RF Rx Instructions: As directed lactulose 10 gram/15 mL solution 40 g PO BID (DME) blood pressure test kit-large [Omron BP Monitor-3 Series] Kit See Rx Instructions .ROUTE DAILY Qty: 1 Rx Instructions: As directed Xifaxan 550 mg tablet 550 mg PO BID 90 Days Qty: 180 0RF amlodipine 5 mg tablet 5 mg PO DAILY Qty: 90 0RF Discharge Orders: Discharge Order (Routine); Ordered 07/15/25 Ordered By: Grace Hunter Activity on Discharge: As tolerated Stand Alone Forms: Patient Portal Discharge page Print Language: Cameroonian Care Plan Goals: See below Health Concerns: Acute on chronic blood loss anemia Lightheadedness and dizziness Upper GI bleed Acute hepatic encephalopathy Medication noncompliance Plan of Treatment: You were admitted to the hospital acute on chronic blood loss anemia that was initially concerned for esophageal variceal bleeding. You were transfused 1 unit of PRBCs in the ED and started on octreotide and IV Protonix. You were seen and evaluated by GI and underwent an EGD on 07/13 which found a slow, chronic upper GI bleed that was cauterized. The following day you had a slight drop in your hemoglobin to 7.2 though today your levels have improved and stabilized. You will be sent home on a short course of antibiotics as well as medication to help prevent further GI bleeds. -- take levofloxacin 750 mg once daily for the next 4 days, starting 07/16 and ending 07/20 -- take omeprazole 40 mg daily in the morning. Continue taking until you follow up with GI -- you should follow up with Dr. Antonio in GI; you will need to undergo elective EGD with repeat ablation in 6-8 weeks -- you were strongly encouraged to take your lactulose 40 g twice a day at home, as this will help prevent acute hepatic encephalopathy -- you should resume all of your other home medications Assessment: See discharge summary
== END 2025-07-15 14:13 | disposition home or self-care (01) | DRG 253 ==
LOC: HO.ED 07-13 00:45 → HO.EDOVER 07-13 01:04 → HO.IMC 07-13 17:05
PROVIDERS: Internal Medicine; Admitting Provider Internal Medicine; Emergency Provider Emergency Medicine; PCP Student in an Organized Health Care Education/Training Program; Visit Provider Student in an Organized Health Care Education/Training Program
PROC: 0DJ08ZZ Inspection of Upper Intestinal Tract, Via Natural or Artificial Opening Endoscopic (ICD-10-PCS; CPT 43235; principal; 2025-07-13 15:50)
DX: K31.811 Angiodysplasia of stomach and duodenum with bleeding (principal); D61.818 Other pancytopenia; K74.69 Other cirrhosis of liver; B18.2 Chronic viral hepatitis C; D62 Acute posthemorrhagic anemia; I89.0 Lymphedema, not elsewhere classified; K31.7 Polyp of stomach and duodenum; F17.210 Nicotine dependence, cigarettes, uncomplicated; Z71.6 Tobacco abuse counseling; Z79.899 Other long term (current) drug therapy
CPT/HCPCS: 36415; 70450; 71250; 72125; 74176; 80053; 81003; 82140; 83735; 83880; 84484; 85025; 85027; 85610; 86850; 86900; 86901; 86923; 93005; 99285; C1889; J0696; J0744; J1171; J2003; J2354; J2470; J2704; J3430; P9016; P9073

== ENCOUNTER → 2025-07-12 19:36 | Outpatient (BNV) | payer MEDICAID, SELFPAY | PROVIDERS: Admitting Provider Internal Medicine; Emergency Provider Emergency Medicine; PCP Student in an Organized Health Care Education/Training Program; Visit Provider Internal Medicine Cardiovascular Disease | DX: R42 Dizziness and giddiness (principal) | CPT/HCPCS: 93010 ==

== ENCOUNTER → 2025-07-12 22:25 | Outpatient (BNV) | payer MEDICAID, SELFPAY | PROVIDERS: Emergency Provider Emergency Medicine; PCP Student in an Organized Health Care Education/Training Program; Visit Provider Radiology Diagnostic Radiology | DX: R10.9 Unspecified abdominal pain (principal); R41.82 Altered mental status, unspecified; R07.9 Chest pain, unspecified; R29.6 Repeated falls | CPT/HCPCS: 70450; 71250; 72125; 74176 ==

== ENCOUNTER → 2025-07-13 00:48 | Outpatient (BNV) | payer MEDICAID, SELFPAY | PROVIDERS: Admitting Provider Internal Medicine; Emergency Provider Emergency Medicine; PCP Student in an Organized Health Care Education/Training Program; Visit Provider Internal Medicine | DX: D64.9 Anemia, unspecified (principal); K74.60 Unspecified cirrhosis of liver; Z95.828 Presence of other vascular implants and grafts; K31.811 Angiodysplasia of stomach and duodenum with bleeding; K31.7 Polyp of stomach and duodenum | CPT/HCPCS: 43255; 99223 ==

== ENCOUNTER → 2025-07-13 00:48 | Outpatient (BNV) | payer MEDICAID, SELFPAY | PROVIDERS: Admitting Provider Internal Medicine; Emergency Provider Emergency Medicine; PCP Student in an Organized Health Care Education/Training Program; Visit Provider Internal Medicine | DX: K92.2 Gastrointestinal hemorrhage, unspecified (principal) | CPT/HCPCS: 99233; 99239 ==

== ENCOUNTER 2025-07-20 11:31 | Outpatient (REF) | payer MEDICAID, SELFPAY ==
[2025-07-20 13:47] LABS: Hematocrit 25.2 % (42.0-52.0); Hemoglobin 7.6 g/dl (14.0-18.0); Imm Gran Abs Auto 0.01 X10*3/uL (0.00-0.03); Imm Gran Pct Auto 0.6 % (0.0-0.4); Lymphocytes Absolute Auto 0.5 X10*3/uL (1.2-4.9); MANUAL DIFF FLAG SCAN; Mean Corpuscular HGB Conc 30.2 g/dl (31.0-36.0); Mean Corpuscular Hemoglobin 24.5 pg (27.0-33.0); Mean Corpuscular Volume 81.3 fL (80.0-98.0); NRBC Abs Auto 0.000 X10*3/uL (0.0-0.012); NRBC Pct Auto 0.0 /100WBC (0.0-0.2); Red Blood Count 3.10 X10*6/uL (4.60-5.80); SCAN SMEAR FLAG 1
--- OUTSIDE RECORDS SUMMARY | 2025-07-20 14:02 | XMS_ITS | Clinical Summary ---
Author Organization [facility] Address [address] [facility] [address] [place] [phone] Phone Care Team Providers Care Dial Maker Name Role Phone Leta Soto MD [...] Type Department Care Team Description 06/10/2025 Telephone [facility] [address] [facility] 10th [place] [address] Michela Matt MD 10/2 cancelled 06/09/[address] [address] Michela Matt MD Procedure Instructions 05/28/2025 10:00 AM EDT Pre-Admission Testing [facility] Pre Procedure Evaluation Center [address] [place] [phone] Michela Matt MD 04/20/2025 1:15 PM EDT Office Visit [address] [address] Michela Matt MD 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 Last 3 Months Social History Tobacco Use Types Packs/Day Years Used Date Smoking Tobacco: Former Cigarettes 0.5 49.9 S tarted: 1976 Smokeless Tobacco: Never Tobacco [...] Description 09/24/2025 9:00 AM EST Pre-Admission Testing [facility] Pre Procedure Evaluation Center [address] [place] [address] Michela Matt MD [address] [place] [phone] [email or web address] 10/08/2025 Procedure [facility] [address] [place] [phone] 10/08/2025 9:00 AM EST Hospital En[facility] [address] [place] [address] Michela Matt MD [address] [place] [phone] [email or web address] 10/08/2025 9:00 AM EST Anesthesia Event [facility] [address] [place] [address] Berlin Rosas MD [address] [place] [phone] [email or web address] Juliana Loredo NP [address] [place] [phone] [email or web address] [email or web address] 10/08/2025 9:00 AM EST - 10/08/2025 10:00 AM EST Surgery [facility] DEPT [address] [place] [address] Michela Matt MD [address] [place] [phone] [email or web address] 10/19/2025 2:30 PM EST Office Visit [facility] [address] [address] Michela Matt MD [address] [place] [phone] [email or web address] Scheduled Procedures Name Priority Associated Diagnoses Date/Ti [...] topic Medical Devices Not on file Insurance [facility] C3 ACO C3 ACO C3 ACO C3 ACO C3 ACO C3 ACO Care Teams Dial Maker Relationship Specialty Start Date End Date Leta Soto MD [address] [place] [phone] PCP - General Internal Medicine 01/05/25 Additional Source Comments The information contained in this document represents components of the legal health record. It is not the complete legal health record.[facility]
--- OUTSIDE RECORDS SUMMARY | 2025-07-20 14:02 | XMS_ITS | Encounter Summary ---
Author Organization [employer] Address [address] [facility] 7t [place] [address] Care Team Providers Care Director Service Name Role Phone Leta Soto MD Primary Care Pro vider Yajaira Antonio Unavailable Encounter Details Date Type Department Care Team (Late st Contact Info) Description 11/11/2024 Telephone [facility] MEDICINE [address] [place] [address] Leta Soto MD [address] [place] [address] Social History Tobacco Use Types Packs/Day Years [...] with others, in a hotel, in a mcc, living outside on the street, on a [...] 12:27 PM EST Tc from [facility] care case manager requesting the status on pt documented in this encounter Plan of Treatment Upcoming Encounters Date Type Department Care Team (Late st Contact Info) Description 08/05/2025 10:15 AM EST Office Visit [address] [address] Leta Soto MD [address] [place] [phone] 09/24/2025 10:15 AM EST Office Visit [facility] MEDICINE [address] [place] [address] [phone] Leta Soto MD [address] [place] [phone] documented as of this encounter Goals Goal [...] as of this encounter Care Teams Director Service Relationship Specialty Start Date End Date Leta Soto MD [address] [place] [phone] PCP - General Internal Medicine 04/11/23 Yajaira Antonio [address] [place] [address] 3rd [place] [address] Gastroenterology 09/04/24 [facility] 01/28/25 documented as of this encounter
--- OUTSIDE RECORDS SUMMARY | 2025-07-20 14:02 | XMS_ITS | Encounter Summary ---
Author Organization [employer] Address [address] [facility] 7t [place] [address] Care Team Providers Care Press Reader Name Role Phone Leta Soto MD Primary Care Pro vider Yajaira Antonio Unavailable Reason for Visit * Reason Comments Transition Of Care (Tcm) [facility] scheduled a nd SDOH screening completed on 03/12/25 Encounter Details Date Type Department Care Team (Late st Contact Info) Description 07/16/2025 Patient Outreach [facility] MEDICINE [address] [place] [address] Leta Soto MD [address] [place], [place] [phone] Transition Of Care (Tcm) (HDF scheduled and SDOH screening completed on 03/12/25) Social History Tobacco Use Types Packs/Day Years [...] encounter Miscellaneous Notes * Significant Event - Nano García - 07/16/2025 9:48 AM EST 07/16/25 0947 Hospital Discharg[facility] Type of Visit Hospital Admission Date of Admission/Visit 07/13/25 Date of Discharge 07/15/25 Facility [facility] Diagnosis UGIB (upper gastrointestinal bleed), Disposition Discharged Home Follow-Up Actions Follow-Up Needed Provider appointment Follow-Up Outcome Spoke to Patient;Booked Appointment Initial Contact Date 07/16/25 KG Rojas placed outbound call to patient for HDF outreach. Patient's name and were confirmed. Patient educated on the importance of follow up with provider following inpatient admission. Patient offered an HDF appt. Patient is agreeable to an appointment and has been scheduled for 08/05/25 at 10:15am with Dr. Yan. Insurance verified prior to scheduling. Patient also notified that a health center pharmacist will be reaching out to them via telephone prior to their scheduled appointment in order to review their medications in preparation for their appointment. Patient advised to bring to appointment a photo id and insurance card. Patient provided with education on contacting the Health Center with any questions or concerns prior to the scheduled appointment. Patient educated on extended clinic hours on Mondays and Wednesdays, and Walk-In Urgent Care Located in [facility]. Patient provided with after-hours line for [facility], , which offer night time triage service and option to transfer to train control electronic technician provider if needed. Discharge summary scanned into chart. Biggest concern for appointment at this time is no concerns. Appropriate screenings completed in anticipation of appointment. documented in this encounter Plan of Treatment Upcoming Encounters Date Type Department Care Team (Late st Contact Info) Description 08/05/2025 10:15 AM EST Office Visit [address] [address] Leta Soto MD [address] [place] [phone] 09/24/2025 10:15 AM EST Office Visit [address] [address] Leta Soto MD [address] [place] [address] documented as of this encounter Goals Goal [...] documented as of this encounter Care Teams Press Reader Relationship Specialty Start Date End Date Leta Soto MD [address] [place] [phone] PCP - General Internal Medicine 04/11/23 Yajaira Antonio [address] [place] [address] Drive 3rd [place] [address] Gastroenterology 09/04/24 [facility] 01/28/25 documented as of this encounter
--- OUTSIDE RECORDS SUMMARY | 2025-07-20 14:02 | XMS_ITS | Encounter Summary ---
Author Organization [employer] Address [address] [facility] 7t [place] [address] Care Team Providers Care Market Manager Name Role Phone Leta Soto MD Primary Care Pro vider PacoYajaira Unavailable Reason for Visit * Reason Onset Date Comments Hospital Follow-up 07/16/2025 Encounter Details Date Type Department Care Team (Late st Contact Info) Description 07/16/2025 Telephone [facility] MEDICINE [address] [place] [address] Leta Soto MD [address] [place], [place] [phone] Hospital Follow-up Social History Tobacco Use Types Packs/Day [...] encounter Miscellaneous Notes * Telephone Encounter - Gilbert [place] - 07/16/2025 9:32 AM EST Tc from pt requesting a HDF appt. Hospital: [facility] Date of admission: 07/12/25 Discharge date: 07/15/25 Diagnosed: anemia , upper GI bleed *Send message to [place] Clinical Care Coordinators documented in this encounter Plan of Treatment Upcoming Encounters Date Type Department Care Team (Late st Contact Info) Description 08/05/2025 10:15 AM EST Office Visit [facility] MEDICINE [address] [place] [phone] Leta Soto MD [address] [place] [phone] 09/24/2025 10:15 AM EST Office Visit [facility] MED[facility] [address] [place] [phone] Leta Soto MD [address] [place] [address] documented as of this encounter Goals Goal [...] documented as of this encounter Care Teams Market Manager Relationship Specialty Start Date End Date Leta Soto MD [address] [place] [address] PCP - General Internal Medicine 04/11/23 Yajaira Antonio [address] [place] [address] Drive 3rd [place] [address] Gastroenterology 09/04/24 [facility] 01/28/25 documented as of this encounter
--- OUTSIDE RECORDS SUMMARY | 2025-07-20 14:03 | XMS_ITS | Clinical Summary ---
Author Organization [employer] Address [address] [facility] [address] [place] [address] Care Team Providers Care Ground Instructor Basic Name Role Phone Leta Soto MD Primary [...] his advocate PLAN: 1. Follow up with [facility]: Not recommended for follow-up 2. Patient goal is be connected to services 3. Behavioral Recommendations a. Patient will engage in service once established b. Patient may return to [facility] for medical needs until a PCP [...] Encounters Date Type Department Care Team Description 07/16/2025 Patient Outreach [address] [address] Leta Soto MD Transition Of Care (Tcm) (HDF scheduled and SDOH screening completed on 03/12/25) 07/16/[address] [address] Leta Soto MD Hospital Follow-up 07/13/2025 Orders Only GENERIC EXTERNAL DATA DEPARTMENT Provider, Generic External Data 07/12/2025 Orders Only GENERIC EXTERNAL DATA DEPARTMENT Provider, Generic External Data 07/09/[address] [address] Leat Soto MD Letter for School/Work 07/02/2025 Orders Only GENERIC EXTERNAL DATA DEPARTMENT Provider, Generic External Data 07/01/2025 Orders Only GENERIC EXTERNAL DATA DEPARTMENT Provider, Generic External Data 07/01/[address] [address] Leta Soto MD 06/25/2025 Orders Only [facility] External Provider, [facility] 06/25/[address] [place] [address] Leta Soto MD FYI 06/12/[address] [place] [address] Leta Soto MD gsssi 06/11/[address] [place] [address] Yamel Khanna RN 06/09/2025 9:45 AM EDT Office Visit [address] [place] [address] Leta Soto MD Dizziness (Primary Dx); Essential hypertension; Other cirrhosis of liver (CMS/HCC); Hepatic encephalopathy (CMS/HCC); Healthcare maintenance 06/09/2025 Orders Only GENERIC EXTERNAL DATA DEPARTMENT Provider, Generic External Data 06/09/[address] [address] Leta Soto MD ER Follow-up 06/09/2025 Travel 06/08/[address] [place] [address] Leta Soto MD chart prep 06/04/2025 Orders Only GENERIC EXTERNAL DATA DEPARTMENT Provider, Generic External Data 05/30/2025 10:40 AM EDT Office Visit [facility] [address] [place] [address], [place] [address] Victoriano Beyer MD Oral ulcer (Primary Dx) 05/30/2025 Travel 05/22/2025 Orders Only [facility] External Provider, [facility] 05/21/2025 Orders Only GENERIC EXTERNAL DATA DEPARTMENT Provider, Generic External Data 05/20/2025 Orders Only GENERIC EXTERNAL DATA DEPARTMENT Provider, Generic External Data 05/15/2025 Orders Only GENERIC EXTERNAL DATA DEPARTMENT Provider, Generic External Data 04/27/2025 Orders Only [address] [address] Veronica Miles CHANDU 04/27/2025 Refill [facility] [address] [place] [address] Leta Soto MD 04/22/2025 Telephone [facility] [address] [place] [address] 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, 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 04/22/2025 Orders Only [facility] [address] [place], [place] [phone] Leta Soto MD 04/21/2025 Orders Only [facility] [address], [place] [phone] Imelda Pfeiffer, CHANDU Healthcare maintenance 04/20/[address] [place] [address] Leta Soto MD FYI from Last 3 [...] Description 08/05/2025 10:15 AM EST Office Visit [facility] [address] [place] [address] Leta Soto MD [address] [place], [place] [phone] 09/24/2025 10:15 AM EST Office Visit [facility] [address] [place] [address] Leta Soto MD [address] [place] [address] Health Maintenance Due Date Last [...] Date/Time Associated Diagnosis Comments PROTHROMBIN TIME-INR Routine 07/13/2025 12:[address] CERVICAL SPINE WO CONTRAST Routine 07/13/2025 12:[address] CHEST WO CONTRAST Routine 07/13/2025 12:[address] ABDOMEN PELVIS WO CONTRAST Routine 07/13/2025 12:[address] HEAD WO CONTRAST Routine 07/13/2025 1 2:02 AM EST RED BLOOD COUNT Routine 07/12/2025 10:42 PM EST TYPE AND SCREEN Routine 07/12/2025 10:42 PM EST NT-PROBNP Routine 07/12/2025 10:42 PM EST HIGH SENSITIVITY TROPONIN I Routine 07/12/2025 10:42 PM EST AMMONIA (P) Routine 07/12/2025 10:42 PM EST URINALYSIS WITH REFLEX MICROSCOPIC Routine 07/12/2025 9:01 PM EST HIGH SENSITIVITY TROPONIN I Routine 07/02/2025 5:09 [...] AM EDT Healthcare maintenance CHLAMYDIA/GONORRHEA - URINE ([facility]) Routine 04/21/2025 CHLAMYDIA/GONORRHEA THROAT SWAB ([facility]) Routine 04/21/2025 LIPID PANEL, STANDARD Routine 04/06/2023 10:00 AM EDT Healthcare maintenance from Last 3 Months or Most Recently Relevant to Health Maintenance Results * (ABNORMAL) Prothrombin Time-INR (07/13/2025 12:47 AM EST) Only the most recent of2 resultswithin the time period is included. Prothrombin Time 17.2(H) 10.9 - 12.4 SEC [facility] INTERNATIONAL NORM RATIO 1.5(H) 0.9 - 1.1 [facility] Comment:INTERNATIONAL NORMAL IZED RATIO (INR) REFERENCE RANGES Reference RangeFor patients not on anticoagulant therapy: 0.9 - 1.1INR ranges for oral anticoagulanttherapy:For prevention and treatment of venous thrombosis and pulmonary embolism: 2.0 - 3.0For acute myocardial infarction with aspirin therapy: 2.0 - 3.0For acute myocardial infarction without aspirin therapy: 3.0 - 4.0For patients with mechanical prosthetic heart valves: 2.5 - 3.5 07/13/2025 12:4 7 AM EST 07/13/2025 12:52 AM EST us Generic External Data Provider LAB BLOOD ORDERAB LES Final Result Performing Organization Address City/State/[facility] Co de Phone Number [facility] [address] [place] [phone] * CT Cervical Spine w/o Contrast (07/13/2025 12:12 AM EST) Anatomical Region Laterality Modality Spine, C-spine Computed Tomogra phy 07/13/2025 12:1 2 AM EST Narrative 07/13/2025 12:13 AM EST [address] [address] [address] Scan Report Signed Patient: Adelso Beebe MR#: [id number] : 1960 Acct:[id number] Age/Sex: 64 / M ADM Date: 07/12/25 Loc: HO.ED Attending Dr: Ordering Physician: Stefani Rocha DO Date of Service: 07/12/25 Procedure(s): CT cervical spine wo IV con Accession Number(s): [id number] cc: Stefani Rocha Maria Gabriela MD Report Number: [id number]: Total DLP = 472.00 mGy-cm Reason for Exam: falls, AMS CLINICAL HISTORY: falls, AMS CT cervical spine without contrast Comparison: 04/11/2025 Findings: No acute fracture or dislocation. Posterior alignment is normal. Moderate degenerative change. No radiopaque foreign bodies. Impression: No acute processes This document has been electronically signed by: Teddy Lott MD on 07/13/2025 00:12:13 Dictated By: Teddy Lott MD Signed By: <Electronically signed by Teddy Lott MD in OV> 07/13/2512 DD/ TD/TT: 07/13/2511 Gas Station Operator: Procedure Note Donotuseinterpreter, Image - 07/13/[address] [place] [address] [address] Scan Report Signed Patient: Adelso BeebeMR#: [id number] : 1960cct:[id number] Age/Sex: 64 / MADM Date: 07/12/25 Loc: .ED Attending Dr: Ordering Physician: Stefani Rocha DO Date of Service: 07/12/25 Procedure(s): CT cervical spine wo IV con Accession Number(s): [id number] cc: Stefani Rocha Maria Gabriela MD Report Number: [id number]: Total DLP = 472.00 mGy-cm Reason for Exam: falls, AMS CLINICAL HISTORY: falls, AMS CT cervical spine without contrast Comparison: 04/11/2025 Findings: No acute fracture or dislocation. Posterior alignment is normal. Moderate degenerative change. No radiopaque foreign bodies. Impression: No acute processes This document has been electronically signed by: Teddy Lott MD on 07/13/2025 00:12:13 Dictated By: Teddy Lott MD Signed By: <Electronically signed by Teddy Lott MD in OV> 07/13/2512 DD/ TD/TT: 07/13/2511 Gas Station Operator: [facility] External Provider IMG CT PROCEDURES Edited Result - Final * CT Chest w/o Contrast (07/13/2025 12:10 AM EST) Anatomical Region Laterality Modality Body, Chest Computed Tomogra phy 07/13/2025 12:1 0 AM EST Narrative 07/13/2025 12:11 AM EST [place] [address] CT Scan Report Signed Patient: Adelso Beebe MR#: [id number] : 1960 Acct:[id number] Age/Sex: 64 / M ADM Date: 07/12/25 Loc: HO.ED Attending Dr: Ordering Physician: Stefani Rocha DO Date of Service: 07/12/25 Procedure(s): CT chest wo IV con Accession Number(s): [id number] cc: Stefani Rocha DO; Leta Soto MD Report Number: [id number]: Total DLP = 517.00 mGy-cm Reason for Exam: falls, pain CLINICAL HISTORY: falls, pain CT chest without contrast Comparison: 11/12/2024 Findings: Lung chino are clear without acute infiltrates. No significant mediastinal adenopathy. No significant free pleural fluid. No significant focal bony abnormalities. Impression: No acute processes This document has been electronically signed by: Teddy Lott MD on 07/13/2025 00:10:42 Dictated By: Teddy Lott MD Signed By: <Electronically signed by Teddy Lott MD in OV> 07/13/2510 DD/ TD/TT: 11/03/25 0010 Gas Station Operator: Procedure Note Donotuseinterpreter, Image - 07/13/[address] [address] [address] Scan Report Signed Patient: Adelso BeebeMR#: [id number] : 1960cct:[id number] Age/Sex: 64 / MADM Date: 07/12/25 Loc: HO.ED Attending Dr: Ordering Physician: Stefani Rocha DO Date of Service: 07/12/25 Procedure(s): CT chest wo IV con Accession Number(s): [id number] cc: Stefani Rocha DO; Leta Soto MD Report Number: [id number]: Total DLP = 517.00 mGy-cm Reason for Exam: falls, pain CLINICAL HISTORY: falls, pain CT chest without contrast Comparison: 11/12/2024 Findings: Lung chino are clear without acute infiltrates. No significant mediastinal adenopathy. No significant free pleural fluid. No significant focal bony abnormalities. Impression: No acute processes This document has been electronically signed by: Teddy Lott MD on 07/13/2025 00:10:42 Dictated By: Teddy Lott MD Signed By: <Electronically signed by Teddy Lott MD in OV> 07/13/2510 DD/ TD/TT: 07/13/259 Gas Station Operator: [facility] External Provider IMG CT PROCEDURES Edited Result - Final * CT Abdomen Pelvis w/o Contrast (07/13/2025 12:09 AM EST) Anatomical Region Laterality Modality Body, Pelvis, Abdomen Computed T omography 07/13/2025 12:0 9 AM EST Narrative 07/13/2025 12:10 AM EST [address] [address] [address] Scan Report Signed Patient: Adelso Beebe MR#: [id number] : 1960 Acct:[id number] Age/Sex: 64 / M ADM Date: 07/12/25 Loc: HO.ED Attending Dr: Ordering Physician: Stefani Rocha DO Date of Service: 07/12/25 Procedure(s): CT abdomen pelvis wo IV con Accession Number(s): [id number] cc: Stefani Rocha DO; Leta Soto MD Report Number: [id number]: Total DLP = 1405.00 mGy-cm Reason for Exam: falls, pain, AMS CLINICAL HISTORY: falls, pain, AMS CT abdomen and pelvis without contrast Comparison: 01/21/2025 Findings: Lung bases clear. No acute bony abnormalities. Degenerative change spine and hips. Portacaval shunt. No focal liver abnormality. Splenomegaly without focal abnormality. Pancreas and adrenal glands unremarkable. Gallbladder within normal limits. No bilateral renal stone or hydronephrosis. No focal renal abnormality or ureteral dilation. No evidence for aortic aneurysm. No free fluid or adenopathy in the pelvis. No diverticulitis. Appendix unremarkable. Impression: No acute processes This document has been electronically signed by: Teddy Lott MD on 07/13/2025 00:09:00 Dictated By: Teddy Lott MD Signed By: <Electronically signed by Teddy Lott MD in OV> 07/13/25 0010 DD/ TD/TT: 07/13/258 Gas Station Operator: Procedure Note Donotuseinterpreter, Image - 07/13/[address] [place] [address] [address] Scan Report Signed Patient: Adelso Beebe#: [id number] : 1960cct:[id number] Age/Sex: 64 / MADM Date: 07/12/25 Loc: .ED Attending Dr: Ordering Physician: Stefani Rocha DO Date of Service: 07/12/25 Procedure(s): CT abdomen pelvis wo IV con Accession Number(s): [id number] cc: Stefani Rocha DO; Leta Soto MD Report Number: [id number]: Total DLP = 1405.00 mGy-cm Reason for Exam: falls, pain, AMS CLINICAL HISTORY: falls, pain, AMS CT abdomen and pelvis without contrast Comparison: 01/21/2025 Findings: Lung bases clear. No acute bony abnormalities. Degenerative change spine and hips. Portacaval shunt. No focal liver abnormality. Splenomegaly without focal abnormality. Pancreas and adrenal glands unremarkable. Gallbladder within normal limits. No bilateral renal stone or hydronephrosis. No focal renal abnormality or ureteral dilation. No evidence for aortic aneurysm. No free fluid or adenopathy in the pelvis. No diverticulitis. Appendix unremarkable. Impression: No acute processes This document has been electronically signed by: Teddy Lott MD on 07/13/2025 00:09:00 Dictated By: Teddy Lott MD Signed By: <Electronically signed by Teddy Lott MD in OV> 07/13/25 0010 DD/ TD/TT: 07/13/258 Gas Station Operator: [facility] External Provider IMG CT PROCEDURES Edited Result - Final * CT Head w/o Contrast (07/13/2025 12:02 AM EST) Only the most recent of2 resultswithin the time period is included. Anatomical Region Laterality Modality Head, Neck Computed Tomogra phy 07/13/2025 12:0 2 AM EST Narrative 07/13/2025 12:05 AM EST [place] [address] CT Scan Report Signed Patient: Adelso Beebe MR#: [id number] : 1960 Acct:[id number] Age/Sex: 64 / M ADM Date: 07/12/25 Loc: HO.ED Attending Dr: Ordering Physician: Stefani Rocha DO Date of Service: 07/12/25 Procedure(s): CT head/brain wo IV con Accession Number(s): [id number] cc: Stefani Rocha DO; Leta Soto MD Report Number: [id number]: Total DLP = 699.00 mGy-cm Reason for Exam: AMS, falls CLINICAL HISTORY: AMS, falls CT head without contrast Comparison: 07/01/2025 Findings: No acute intracranial fluid collection or hematoma. Mild chronic ischemic white matter disease. No acute process in sinuses or mastoids. No acute bony abnormality. Right ocular prosthesis. Impression: No acute intracranial process This document has been electronically signed by: Teddy Lott MD on 07/13/2025 00:02:50 Dictated By: Teddy Lott MD Signed By: <Electronically signed by Teddy Lott MD in OV> 07/13/25 0003 DD/ 0002 TD/TT: 07/13/25 0002 Gas Station Operator: Procedure Note Donotuseinterpreter, Image - 07/13/[address] [place] [address] [address] Scan Report Signed Patient: Yolanda Beebe#: [id number] : 1960cct:[id number] Age/Sex: 64 / MADM Date: 07/12/25 Loc: HO.ED Attending Dr: Ordering Physician: Stefani Rocha DO Date of Service: 07/12/25 Procedure(s): CT head/brain wo IV con Accession Number(s): [id number] cc: Stefani Rocha DO; Leta Soto MD Report Number: [id number]: Total DLP = 699.00 mGy-cm Reason for Exam: AMS, falls CLINICAL HISTORY: AMS, falls CT head without contrast Comparison: 07/01/2025 Findings: No acute intracranial fluid collection or hematoma. Mild chronic ischemic white matter disease. No acute process in sinuses or mastoids. No acute bony abnormality. Right ocular prosthesis. Impression: No acute intracranial process This document has been electronically signed by: Teddy Lott MD on 07/13/2025 00:02:50 Dictated By: Teddy Lott MD Signed By: <Electronically signed by Teddy Lott MD in OV> 07/13/25 0003 DD/ 0002 TD/TT: 07/13/25 0002 Gas Station Operator: [facility] External Provider IMG CT PROCEDURES Edited Result - Final * High Sensitivity Troponin I (07/12/2025 10:42 PM EST) Only the most recent of7 resultswithin the time period is included. TROPONIN I HIGH SENSITIVITY 18.9 <3.5 - 35.0 ng/L [facility] Comment:The Clifford high sens itivity Troponin-I results should beused in conjunction with other diagnostic information suchas ECG, clinical observations and information, and patientsymptoms to aid in the diagnosis of [place]. 07/12/2025 10:4 2 PM EST 07/12/2025 10:47 PM EST Generic External Data Provider LAB BLOOD ORDERAB LES Final Result Performing Organization Address [facility] Co de Phone Number [facility] [address] [place] [phone] * NT-proBNP (07/12/2025 10:42 PM EST) Pathologist [facility] NT-proBNP 115.0 <300 pg/mL [facility] Comment:Reference Range:Age Group (years) NT-proBNP (pg/ml) InterpretationAll <300 Negative: HF unlikelyFor patients presenting to the ED with clinical suspicion ofnew onset or worsening HF, see below:18 to <50 >299.9 to <450.0 Grayzone: [id number] to 75 >299.9 to <900.0 other causes of>75 >299.9 to <1800.0 NT-proBNP fxmsxatin94 to <50 >449.9 Positive: HF [id number] >899.9>75 >1799.9Note: Elevated NT-proBNP levels should be interpreted inthe context of other clinical information. 07/12/2025 10:4 2 PM EST 07/12/2025 10:47 PM EST us Generic External Data Provider LAB BLOOD ORDERAB LES Final Result Performing Organization Address [facility] Co de Phone Number [facility] [address] [place] [phone] * Red blood count (07/12/2025 10:42 PM EST) Red Blood Cells: [id number] ON RC TRANSFUSED 07/13/25 0012 [facility] 07/12/2025 10:4 2 PM EST 07/12/2025 10:47 PM EST us Generic External Data Provider LAB BLOOD ORDERAB LES Final Result Performing Organization Address City/[facility]/ZIP Co de Phone Number [facility] [address] [place] [phone] * Type and screen (07/12/2025 10:42 PM EST) Only the most recent of2 resultswithin the time period is included. Blood Type ON [facility] Antibody Screen NEGATIVE [facility] 07/12/2025 10:4 2 PM EST 07/12/2025 10:47 PM EST Narrative [facility] - 07/13/2025 12:39 AM EST Results at Issue Units as of 07/13/25 0014 ...Test View Group: Most Recent HGB HCT Results LABORATORYDate Time Test Result Flag Normal Range07/12/252009 HGB 6.8 *L 14.0-18.0 g/dlback by Tha 07/12/25 at 2115 by HAILEY.07/12/252009 HCT 22.8 L 42.0-52.0 % Yes us Generic External Data Provider LAB BLOOD BANK TE ST ORDERABLES Final Result Performing Organization Address City/[facility]/ZIP Co de Phone Number [facility] [address] [place] [phone] * (ABNORMAL) Ammonia, Plasma (07/12/2025 10:42 PM EST) Only the most recent of3 resultswithin the time period is included. Ammonia (P) 78(H) 13 - 55 umol/L [facility] 07/12/2025 10:4 2 PM EST 07/12/2025 10:47 PM EST Generic External Data Provider LAB BLOOD ORDERAB LES Final Result Performing Organization Address [facility] Co de Phone Number [facility] [address] [place] [phone] * Urinalysis w/reflex microscopic (07/12/2025 9:01 PM EST) Only the most recent of4 resultswithin the time period is included. Color Urine Yellow [facility] Appearance Urine Clear [facility] PH 6.0 5.0 - 9.0 [facility] Glucose Urine UA Negative Negative mg/dL [facility] Urine Blood Negative Negative [facility] Specific [place] - Urine 1.015 1.005 - 1.025 [facility] Urine Protein Negative Neg-Trace mg/dL [facility] Urine Ketones Negative Negative mg/dL [facility] Nitrite Urine Negative Negative [facility] Leukocyte Esterase Urine Negative Negative [facility] 07/12/2025 9:01 PM EST 07/12/2025 9:06 PM EST Narrative [facility] - 07/12/2025 9:19 PM EST Urine, Clean Catch us Generic External Data Provider LAB URINE ORDERAB LES Final Result Performing Organization Address [facility] Co de Phone Number [facility] [address] [place] [phone] * CTA Head Stroke w/ and w/o Contrast (07/02/2025 12:34 AM EDT) Anatomical Region Laterality Modality Computed Tomogra phy 07/02/2025 12:3 4 AM EDT Narrative 07/02/2025 12:35 AM EDT [place] [address] CT Scan Report Signed Patient: Adelso Beebe MR#: [id number] : 1960 Acct:[id number] Age/Sex: 64 / M ADM Date: 07/01/25 Loc: HO.ED Attending Dr: Ordering Physician: Bhavana Christensen Date of Service: 07/01/25 Procedure(s): CT angio head neck STROKE Accession Number(s): [id number] cc: Bhavana Christensen; [facility] Report Number: [id number]: Total DLP = 681.00 mGy-cm Reason for [...] Likewise in the shower solving in skin 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 Moderate focal narrowing in the distal right [...] MD in OV> 07/02/2534 DD/ TD/TT: 07/02/2533 Gas Station Operator: Procedure Note Leelater, Image - 07/02/[address] [place] [address] [address] Scan Report Signed Patient: Adelso BeebeMR#: [id number] : 2Acct:[id number] Age/Sex: 64 / MADM Date: 07/01/25 Loc: HO.ED Attending Dr: Ordering Physician: Bhavana Christensen Date of Service: 07/01/25 Procedure(s): CT angio head neck STROKE Accession Number(s): [id number] cc: Bhavana Christensen; [facility] Report Number: [id number]: Total DLP = 681.00 mGy-cm Reason for [...] Likewise in the shower solving in skin 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 Moderate focal narrowing in the distal right [...] MD in OV> 07/02/2534 DD/ TD/TT: 07/02/2533 Gas Station Operator: [facility] External Provider IMG CT PROCEDURES Edited Result - Final * XR Chest 1 View (07/02/2025 12:22 AM EDT) Only the most recent of2 resultswithin the time period is included. Anatomical Region Laterality Modality Chest Radiographic Susy ging 07/02/2025 12:2 2 AM EDT Narrative 07/02/2025 12:24 AM EDT [place] [address] XRay Report Signed Patient: Adelso Beebe MR#: [id number] : 1960 Acct:[id number] Age/Sex: 64 / M ADM Date: 07/01/25 Loc: HO.ED Attending Dr: Ordering Physician: Bhavana Christensen Date of Service: 07/01/25 Procedure(s): XR chest 1V Accession Number(s): [id number] cc: Bhavana Christensen; [facility] Reason for Exam: cough/pain CLINICAL HISTORY: cough [...] MD in OV> 07/02/253 DD/ TD/TT: 07/02/2521 Gas Station Operator: Procedure Note Donotjuanyinterpreter, Image - 07/02/[address] [address] XRay Report Signed Patient: Yolanda Beebe#: [id number] : 2Acct:[id number] Age/Sex: 64 / MADM Date: 07/01/25 Loc: HO.ED Attending Dr: Ordering Physician: Bhavana Christensen Date of Service: 07/01/25 Procedure(s): XR chest 1V Accession Number(s): [id number] cc: Bhavana Christensen; [facility] Reason for Exam: cough/pain CLINICAL HISTORY: cough [...] MD in OV> 07/02/2522 DD/ TD/TT: 07/02/2521 Gas Station Operator: [facility] External Provider IMG XR PROCEDURES Edited Result - Final * Drug Monitoring, Panel 1, Screen, Urine (07/02/2025 12:06 AM EDT) Only the most recent of2 resultswithin the time period is included. Opiate Screen Urine Not Detected Not Detect [facility] Comment:Opiate cut-off is 30 0 ng/mL.Positive results are unconfirmed and should not be used fornon-medical purposes. Barbiturates, Urine Not Detected Not Detect [facility] Comment:Barbiturate cut-off is 200 ng/mL.Positive results are unconfirmed and should not be used fornon-medical purposes. Phencyclidine Screen Urine Not Detected Not Detect [facility] Comment:Phencyclidine cut-of f is 25 ng/mL.Positive results are unconfirmed and should not be used fornon-medical purposes. Amphetamine Screen Urine Not Detected Not Detect [facility] Comment:Amphetamine cut-off is 1000 ng/mL.Positive results are unconfirmed and should not be used fornon-medical purposes. Benzodiazepines Screen Urine Not Detected Not Detect [facility] Comment:Benzodiazepine cut-o ff is 200 ng/mL.Positive results are unconfirmed and should not be used fornon-medical purposes. Cocaine Screen Urine Not Detected Not Detect [facility] Comment:Cocaine cut-off is 3 00 ng/mL.Positive results are unconfirmed and should not be used fornon-medical purposes. Cannabinoid Screen Urine Not Detected Not Detect [facility] Comment:Cannabinoid cut-off is 50 ng/mL.Positive results are unconfirmed and should not be used fornon-medical purposes. Methadone Screen, Urine Not Detected Not Detect ng/mL [facility] Comment:Methadone cut-off is 300 ng/mL.Positive results are unconfirmed and should not be used fornon-medical purposes. FENTANYL URINE Not Detected Not Detect [facility] Comment:Fentanyl cut-off is 1 ng/mL.Positive results are unconfirmed and should not be used fornon-medical purposes. Oxycodone Urine Screen Not Detected Not Detect ng/mL [facility] Comment:Oxycodone cut-off is 100 ng/mL.Positive results are unconfirmed and should not be used fornon-medical purposes. Buprenorphine Screen Not Detected Not Detect ng/mL [facility] Comment:Buprenorphine cut-of f is 5 ng/mL.Positive results are unconfirmed and should not be used fornon-medical purposes. 07/02/2025 12:0 6 AM EDT 07/02/2025 12:22 AM EDT us Generic External Data Provider LAB URINE ORDERAB LES Final Result [facility] [address] [place] [phone] [phone] * Slide Review (07/01/2025 11:13 PM EDT) Only the most recent of4 resultswithin the time period is included. Slide Review MANUAL DIFF [facility] 07/01/2025 11:1 3 PM EDT 07/01/2025 11:21 PM EDT us Generic External Data Provider LAB BLOOD ORDERAB LES Final Result [facility] [address] [place] [phone] [phone] * (ABNORMAL) Complete Blood Count Manual Diff (07/01/2025 11:13 PM EDT) White Blood Count 1.4(L) 4.8 - 10.8 X10*3/uL [facility] Red Blood Count 3.15(L) 4.60 - 5.80 X10*6/uL [facility] Hemoglobin 7.7(L) 14.0 - 18.0 g/dl [facility] Hematocrit 25.2(L) 42.0 - 52.0 % [facility] Mean Corpuscular Volume 80.0 80.0 - 98.0 fL [facility] Mean Corpuscular Hemoglobin 24.4(L) 27.0 - 33.0 pg [facility] Mean Corpuscular HGB Conc 30.6(L) 31.0 - 36.0 g/dl [facility] Red Cell Distribution Width 16.0 11.0 - 16.0 % [facility] Platelet Count 22(L) 160 - 400 X10*3/uL [facility] NRBC Pct Auto 0.0 0.0 - 0.2 /100WBC [facility] NRBC Abs Auto 0.000 0.0 - 0.012 X10*3/uL [facility] Neutrophils % Manual 70 45 - 73 % [facility] Band Neutrophils Percent 0(L) 3 - 5 % [facility] Lymphocytes Percent Manual 26 20 - 40 % [facility] Monocytes Percent Manual 4 2 - 11 % [facility] NEUTROPHILS ABSOLUTE MANUAL 1.0(L) 2.0 - 8.3 X10*3/uL [facility] LYMPHOCYTES ABSOLUTE MANUAL 0.4(L) 1.2 - 4.9 X10*3/uL [facility] MONOCYTES ABSOLUTE MANUAL 0.1 0.1 - 1.2 X10*3/uL [facility] Platelet Estimate NORMAL NORMAL [facility] Platelet Morphology Comment NORMAL [facility] RBC Morphology NOTED [facility] Tear Drop Cells 1+ (0-2) /OIF [facility] Ovalocytes 1+ (5-14) /[facility] [place] Cells 1+ (0-2) /[facility] Schistocytes 1+ (0-2) /[facility] 07/01/2025 11:1 3 PM EDT 07/01/2025 11:21 PM EDT us Generic External Data Provider LAB BLOOD ORDERAB LES Final Result Performing Organization Address [facility]/ZIP Co de Phone Number [facility] [address] [place] [phone] * Ethanol (07/01/2025 11:13 PM EDT) Only the most recent of2 resultswithin the time period is included. ETHANOL (MG/DL) IN SER/PLAS <10 mg/dL [facility] Comment:Serum/plasma ethanol results are to be used formedical/treatment purposes only. 07/01/2025 11:1 3 PM EDT 07/01/2025 11:21 PM EDT us Generic External Data Provider LAB BLOOD ORDERAB LES Final Result Performing Organization Address [facility]/ZIP Co de Phone Number [facility] [address] [place] [phone] * SARS-CoV-2 RNA, Influenza A/B, and RSV RNA, Ql NAAT (07/01/2025 11:13 PM EDT) Only the most recent of2 resultswithin the time period is included. Influenza A PCR NEGATIVE Negative [facility] Influenza B PCR NEGATIVE Negative [facility] Resp Syncy Virus RNA Qual PCR NEGATIVE Negative [facility] SARS COV2 PCR NEGATIVE Negative [facility] Comment:All test results mus t [...] use by authorized laboratories.Testing performed on the [employer] GeneXpert utilizingreal-time RT-PCR.All SARS CoV2 and positive influenza A/B results arereported to [facility]. 07/01/2025 11:1 3 PM EDT 07/01/2025 11:21 PM EDT us Generic External Data Provider LAB MICROBIOLOGY - GENERAL ORDERABLES Final Result [facility] [address] [place] [phone] * (ABNORMAL) CBC auto differential (07/01/2025 11:13 PM EDT) Only the most recent of5 resultswithin the time period is included. White Blood Count 1.4(L) 4.8 - 10.8 X10*3/uL [facility] Red Blood Count 3.15(L) 4.60 - 5.80 X10*6/uL [facility] Hemoglobin 7.7(L) 14.0 - 18.0 g/dl [facility] Hematocrit 25.2(L) 42.0 - 52.0 % [facility] Mean Corpuscular Volume 80.0 80.0 - 98.0 fL [facility] Mean Corpuscular Hemoglobin 24.4(L) 27.0 - 33.0 pg [facility] Mean Corpuscular HGB Conc 30.6(L) 31.0 - 36.0 g/dl [facility] Red Cell Distribution Width 16.0 11.0 - 16.0 % [facility] Platelet Count 22(L) 160 - 400 X10*3/uL [facility] Neutrophils Percent Auto 59.0 45 - 73 % [facility] Imm Gran Pct Auto 0.0 0.0 - 0.4 % [facility] Lymphocytes Percent Auto 29.2 20 - 40 % [facility] Monocytes Percent Auto 9.7 2 - 11 % [facility] Eosinophils Percent Auto 1.4 0 - 4 % [facility] Basophils Percent Auto 0.7 0 - 2 % [facility] NRBC Pct Auto 0.0 0.0 - 0.2 /100WBC [facility] Neutrophils Absolute Auto 0.9(L) 2.0 - 8.3 x10*3/uL [facility] Imm Gran Abs Auto 0.00 0.00 - 0.03 X10*3/uL [facility] Lymphocytes Absolute Auto 0.4(L) 1.2 - 4.9 X10*3/uL [facility] Monocytes Absolute Auto 0.1 0.1 - 1.2 X10*3/uL [facility] Eosinophils Absolute Auto 0.0 0.0 - 0.4 X10*3/uL [facility] Basophils Absolute Auto 0.0 0.0 - 0.2 X10*3/uL [facility] NRBC Abs Auto 0.000 0.0 - 0.012 X10*3/uL [facility] 07/01/2025 11:1 3 PM EDT 07/01/2025 11:21 PM EDT us Generic External Data Provider LAB BLOOD ORDERAB LES Edited Result - Final [facility] [address] [place] [address] [phone] * Magnesium (07/01/2025 11:13 PM EDT) Magnesium 2.0 1.6 - 2.6 mg/dL [facility] 07/01/2025 11:1 3 PM EDT 07/01/2025 11:21 PM EDT us Generic External Data Provider LAB BLOOD ORDERAB LES Final Result [facility] [address] [place] [phone] [phone] * (ABNORMAL) Comprehensive Metabolic Panel (07/01/2025 11:13 PM EDT) Only the most recent of3 resultswithin the time period is included. Sodium 143 135 - 145 mmol/L [facility] Potassium 4.4 3.3 - 5.1 mmol/L [facility] Chloride 115(H) 96 - 108 mmol/L [facility] Carbon Dioxide 23 22 - 29 mmol/L [facility] Anion Gap 9(L) 12 - 20 [facility] Urea Nitrogen (BUN) 18(H) 9 - 16 mg/dL [facility] Creatinine, Serum 0.95 0.5 - 1.4 mg/dL [facility] Creatinine Clr Calc Pharmacy 96.0 [facility] Comment:eGFR (calculated fro m the MDRD study equation) and eCrCl(calculated from the Cockcroft-Gault equation) are based ondifferent parameters and may not yield comparable results.If eCrCl result is absurd, please check patient'sheight/weight. Estimated Glomerular Filt Rate >60 [facility] Comment:Chronic Kidney Disea se: Estimated GFR < 60 mL/min/1.82v5Dmllaz Kidney Disease: Estimated GFR < 15 mL/min/1.73m2 Glucose 125(H) 60 - 115 mg/dL [facility] Calcium 8.3(L) 8.4 - 10.2 mg/dL [facility] Bilirubin, Total 0.8 0.0 - 1.0 mg/dL [facility] Aspartate Amino Transferase 40(H) 5 - 37 U/L [facility] Alanine Aminotransferase 28 0 - 40 U/L [facility] Total Protein 6.1(L) 6.5 - 8.0 g/dL [facility] Albumin Level 3.0(L) 3.5 - 5.0 g/dL [facility] Alkaline Phosphatase 149(H) 39 - 117 U/L [facility] 07/01/2025 11:1 3 PM EDT 07/01/2025 11:21 PM EDT us Generic External Data Provider LAB BLOOD ORDERAB LES Final Result Performing Organization Address City/State/[facility] de Phone Number [facility] [address] [place] [phone] * XR Humerus Left (06/25/2025 11:38 AM EDT) Anatomical Region Laterality Modality Upper Extremities, Humerus Left [facility] 06/25/2025 11:3 8 AM EDT Narrative 06/25/2025 11:48 AM EDT [address] [address] XRay Report Signed Patient: Adelso Beebe MR#: [id number] : 1960 Acct:[id number] Age/Sex: 64 / M ADM Date: 06/25/25 Loc: HO.ED Attending Dr: Ordering Physician: Cash Reno MD Date of Service: 06/25/25 Procedure(s): XR humerus LT Accession Number(s): [id number] cc: Cash Reno MD; Leta Soto MD [...] in OV> 06/25/25 1145 DD/ 1138 TD/TT: 06/25/251137 Gas Station Operator: Procedure Note Donotuseinterpreter, Image - 06/25/2025 [place] [address] XRay Report Signed Patient: Adelso BeebeMR#: [id number] : 1960cct:[id number] Age/Sex: 64 / MADM Date: 06/25/25 Loc: .ED Attending Dr: Ordering Physician: Cash Reno MD Date of Service: 06/25/25 Procedure(s): XR humerus LT Accession Number(s): [id number] cc: Cash Reno MD; Leta Soto MD [...] in OV> 06/25/25 1145 DD/ 1138 TD/TT: 06/25/251137 Gas Station Operator: [facility] External Provider IMG XR PROCEDURES Edited Result - Final * POCT Glucose (06/09/2025 11:04 AM EDT) Glucose Blood, POC 107 60 - 200 mg/dL QC Media Lot # [id number] Lot# Expiration Date ,296,889 Blood Capillary blood specimen / Unknown 06/09/2025 11:04 AM EDT Leta Dick MD POINT OF CARE ANCELMO T ENTER/EDIT ORDERABLES Final Result * Lipase (06/04/2025 2:25 PM EDT) [facility] Lipase 20 8 - 78 U/L [facility] 06/04/2025 2:25 PM EDT 06/04/2025 2:29 PM EDT Generic External Data Provider LAB BLOOD ORDERAB LES Final Result Performing Organization Address City/[facility]/ZIP Co de Phone Number [facility] [address] [place] [phone] * Hepatic Function Panel (06/04/2025 2:25 PM EDT) [facility] Bilirubin, Direct 0.5 0.0 - 0.5 mg/dL [facility] 06/04/2025 2:25 PM EDT 06/04/2025 2:29 PM EDT Generic External Data Provider LAB BLOOD ORDERAB LES Final Result Performing Organization Address City/[facility]/ZIP Co de Phone Number [facility] [address] [place] [phone] * Hematoxylin and Eosin Stain (05/21/2025 2:15 PM EDT) 05/21/2025 2:15 PM EDT 05/21/2025 2:50 PM EDT Narrative [facility] - 05/25/2025 5:25 PM EDT ----- ------- Name: Adelso Beebe Age/Sex: 64/M : 1960 Unit#: [id number] Attend Dr: Yajaira Antonio MD Re05/21/25 Status: [facility] Location: [facility] Disch: ----- ------- SPEC : [id number] RECD: 05/21/25-1450 STATUS: OUMOU FONSECA NUM: [id number] CASSI: 05/21/25-[address] [facility] [address]: Yajaira Antonio MD ENTERED: 05/21/25-1504 SP TYPE: Surgical OTHR DR: Leta Soto [...] microscopic examination, 6 pieces in cassette A. ([facility]) Special studies ordered and performed: Immunostain for H. pylori; AB/PAS stains IHC S/NG Disclaimer NOTE: Unless otherwise stated, all tissue is formalin-fixed and paraffin-embedded. Some or all of the immunohistochemical tests reported herein may have been developed and their performance characteristics determined by [facility]. They have not been cleared or approved by the U.S. Food and Drug Administration (FDA). However, the FDA has determined that such clearance or approval is not necessary. This laboratory is certified under the Clinical Laboratory Improvement Amendments of 1988 (CLIA) as qualified to perform high complexity clinical laboratory testing. Copies To: Leta Soto MD [address] [place] [phone] CONTINUED ON NEXT PAGE ----- ------- Name: Godfrey McmanusAdelso Age/Sex: 64/M : 1960 Unit#: [id number] Attend Dr: Yajaira Antonio MD Re05/21/25 Status: [facility] Location: [facility] Disch: ----- ------- SPEC : [id number] RECD: 05/21/25-789 STATUS: OUMOU FONSECA NUM: [id number] CASSI: 05/21/25-[address] [facility] [address]: Yajaira Antonio MD ENTERED: 05/21/25-7404 SP TYPE: Surgical OTHR DR: Leta Soto MD ORDERED: HE Stain/3, Gross Micro L4, IHC, Special st. 2, H. pylori, AB/PAS Copies To: (Continued) Yajaira Antonio MD [facility] [address] [place] [phone] [email or web address] ----- ------- Signed (signature on file) Raul Blunt MD 05/25/25 1725 ----- ------- END OF REPORT Generic External Data Provider LAB BLOOD ORDERAB LES Final Result Performing Organization Address [facility]/ZIP Co de Phone Number [facility] [address] [place] [phone] * Pheresis Platelets (05/20/2025 10:46 AM EDT) Pheresis Platelets [id number] AP PHPLT TRANSFUSED 05/21/25 1333 [id number] AP PHPLT TRANSFUSED 05/21/25 1223 [facility] 05/20/2025 10:4 6 AM EDT 05/20/2025 11:19 AM EDT us Generic External Data Provider LAB BLOOD BANK TE ST ORDERABLES Final Result Performing Organization Address [facility]/ZIP Co de Phone Number [facility] [address] [place] [phone] * Urinalysis, Complete, with Reflex to Culture (05/15/2025 2:19 PM EDT) Color Urine Yellow [facility] Appearance Urine Clear [facility] PH 8.0 5.0 - 9.0 [facility] Glucose Urine UA Negative Negative mg/dL [facility] Urine Blood Negative Negative [facility] Specific [place] - Urine 1.010 1.005 - 1.025 [facility] Urine Protein Negative Neg-Trace mg/dL [facility] Urine Ketones Negative Negative mg/dL [facility] Nitrite Urine Negative Negative [facility] Leukocyte Esterase Urine Negative Negative [facility] RBC Urine 0-2 0 - 2 /HPF [facility] Urine WBC 0-5 0 - 5 /HPF [facility] Urine Squamous Epithelial Cell 0-2 0 - 2 /HPF [facility] Urine Bacteria None Seen None Seen [facility] Hyaline Casts, Urine 0-2 0 - 2 /LPF [facility] 05/15/2025 2:19 PM EDT 05/15/2025 2:33 PM EDT Narrative [facility] - 05/15/2025 2:44 PM EDT Urine, Clean Catch us Generic External Data Provider LAB URINE ORDERAB LES Final Result [facility] [address] [place] [phone] * (ABNORMAL) B Type Natriuretic Peptide (BNP) (05/15/2025 2:19 PM EDT) Pathologist [facility] B Type Natriuretic Peptide 178(H) <100 pg/mL [facility] 05/15/2025 2:19 PM EDT 05/15/2025 2:33 PM EDT us Generic External Data Provider LAB BLOOD ORDERAB LES Final Result [facility] [address] [place] [phone] * Syphilis Screen (04/21/2025 10:43 AM EDT) [facility] Syphilis Screen Nonreactive Nonreactive [facility] 04/21/2025 10:4 3 AM EDT 04/21/2025 1:18 PM EDT us Leta Dick MD LAB BLOOD ORDERAB LES Final Result Performing Organization Address [facility] Co de Phone Number [facility] [address] [place] [phone] * Hepatitis C Viral RNA, Quantitative, Real-Time PCR (04/21/2025 10:43 AM EDT) [facility] Hepatitis C Viral Load <15 NOT DETECTED NOT DETECTED IU/mL [facility] HCV Log PCR <1.18 NOT DETECTED NOT DETECTED Log IU/mL [facility] Comment:For additional infor mation, please refer [email or web address].cz/[email or web address](This link is being provided for informational/educational purposes only.)THIS TEST WAS PERFORMED AT:[facility] [place] [phone] STRICKLAND MD 04/21/2025 10:4 3 AM EDT 04/22/2025 8:54 AM EDT us Leat Dick MD LAB BLOOD ORDERAB LES Final Result Performing Organization Address [facility] Co de Phone Number [facility] [address] [place] [phone] * (ABNORMAL) Hepatitis C Antibody with Reflex to HCV, RNA, Quantitative, Real- Time PCR (04/21/2025 10:43 AM EDT) [facility] Hepatitis C Antibody Reactive( A) Nonreactive [facility] Comment:Presumptive evidence of antibodies to HCV. 04/21/2025 10:4 3 AM EDT 04/21/2025 1:18 PM EDT Leta Dick MD LAB BLOOD ORDERAB LES Final Result Performing Organization Address City/[facility]/ZIP Co de Phone Number [facility] [address] [place] [phone] * HIV-1 RNA, Quantitative, Real-Time PCR (04/21/2025 10:43 AM EDT) [facility] HIV RNA PCR Qn Copies NOT DETECTED NOT DETECTED copies/mL [facility] HIV RNA PCR Qn Log Copies NOT DETECTED NOT DETECTED [facility] Comment:Result Units: Log co pies/mLThis test was performed using Real-Time Polymerase ChainReaction.Reportable Range: 20 copies/mL to 10,000,000 copies/mL(1.30 log copies/mL to 7.00 log copies/mL).THIS TEST WAS PERFORMED AT:[facility] [place] [phone] STRICKLAND MD 04/21/2025 10:4 3 AM EDT 04/21/2025 1:18 PM EDT Leta Dick MD LAB BLOOD ORDERAB LES Final Result Performing Organization Address [facility] Co de Phone Number [facility] [address] [place] [phone] * RPR (Monitor) with Reflex to??Titer (04/21/2025 10:43 AM EDT) Pathologist [facility] RPR (Monitor) w/Refl Titer NON-REACTI VE NON-REACT [place] [facility] Comment:THIS TEST WAS PERFOR MED AT:[facility] [place] [phone] STRICKLAND MD Rapid Plasma Reagin Ab Titer TNP [facility] 04/21/2025 10:4 3 AM EDT 04/21/2025 1:18 PM EDT Leta Dick MD LAB BLOOD ORDERAB LES Final Result [facility] [address] [place] [phone] * Chlamydia/Gonorrhea Throat Swab ([facility]) (04/21/2025) Chlamydia Throat Swab Negative Gonorrhea Throat Swab Negative Swab 04/21/2025 Historical Provider LAB MICROBIOLOGY - GENERA L ORDERABLES Final Result * Chlamydia/Gonorrhea, Urine ([facility]) (04/21/2025) Chlamydia, Urine Negative Negative, Indeterminate, None Detected, Invalid, Specimen unsatisfactory for evaluation, Weakly Positive, 2+ Gonorrhea, Urine Negative Negative, Indeterminate, None Detected, Invalid, Specimen unsatisfactory for evaluation, Weakly Positive, 2+ Urine 04/21/2025 Historical Provider LAB URINE ORDERABLES Robyn l Result * Lipid Panel, Standard (04/06/2023 10:00 AM EDT) Triglycerides 94 mg/dL [facility] Comment:Desirable Triglyceri de: less than 150 mg/dLBorderline High Triglyceride 150-199 mg/dLHigh Triglyceride: 200-499 mg/dLVery High Triglyceride: greater than or equal to 5OO mg/dL Cholesterol 79 mg/dL [facility] Comment:Desirable Cholestero l: less than 200 mg/dLBorderline High Cholesterol: 200-239 mg/dLHigh Cholesterol: greater than 239 mg/dL LDL Cholesterol Calculated 36 mg/dl [facility] Comment:Desirable LDL: less than 100 mg/dLNear Optimal/Above Optimal LDL: 110- 129 mg/dLBorderline High LDL: 130-159 mg/dLHigh LDL: 160-189 mg/dLVery High LDL: greater than or equal to 190 mg/dL HDL Cholesterol 25 mg/dL [facility] Comment:Desirable HDL: great er than 40 mg/dL Note: This HDL assay may give artificially low results in patients with liver disease. Blood Venous blood specimen / Unknown 04/06/2023 10:00 AM EDT 04/06/2023 11:20 AM EDT us Ann Piña [facility] LAB BLOOD ORDERABLES Final Resul t [facility] [address] [place] [address] [phone] from Last 3 Months or Most Recently Relevant to Health Maintenance Insurance [facility] Care Teams Ground Instructor Basic Relationship Specialty Start Date End Date Leta Soto MD [address] [place] [address] PCP - General Internal Medicine 04/11/[address] [place] [address] Gastroenterology 09/04/24 [facility] 01/28/25
--- OUTSIDE RECORDS SUMMARY | 2025-07-20 14:03 | XMS_ITS ---
Author Organization [employer] Address [address] [facility] [address] [place] [address] Care Team Providers Care Organ Pipe Maker Metal Name Role Phone Leta Soto MD Primary [...] Phone Stanley Mckeon RN(Responsible Staff) Registered Nurse [phone] Continued Care and Services Coordination
--- OUTSIDE RECORDS SUMMARY | 2025-07-20 14:03 | XMS_ITS | Encounter Summary ---
Author Organization [employer] Address [address] [place] [address] Care Team Providers Care Transaction Manager Name Role Phone Leta Soto MD Primary Care Pro vider Yajaira Antonio Unavailable Encounter Details Date Type Department Care Team (Late st Contact Info) Description 12/17/2023 Orders Only [facility] [address] [place] [address] Tatyana Mosquera FNP [address] [place] [address] Social History Tobacco Use Types Packs/Day Years [...] Description 08/05/2025 10:15 AM EST Office Visit [address] [address] Leta Soto MD [address] [place] [phone] 09/24/2025 10:15 AM EST Office Visit [address] [address] Leta Soto MD [address] [place] [phone] documented as of this encounter Goals Goal [...] documented as of this encounter Care Teams Transaction Manager Relationship Specialty Start Date End Date Leta Soto MD [address] [place] [phone] PCP - General Internal Medicine 04/11/23 Yajaira Antonio [address] [place] [address] Drive [address] [place] [address] Gastroenterology 09/04/24 [facility] 01/28/25 documented as of this encounter
--- OUTSIDE RECORDS SUMMARY | 2025-07-20 14:03 | XMS_ITS ---
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 Needs support managing specialist appointments. Please outreach for enrollment. Case Team Name Relationship Phone Chata Puente(Responsible Staff) [phone] Continued Care and Services Coordination
--- OUTSIDE RECORDS SUMMARY | 2025-07-20 14:03 | XMS_ITS | Encounter Summary ---
Author Organization [employer] Address 75 [facility] 7t [place] [address] Care Team Providers Care Camp Nurse Name Role Phone Leta Soto MD Primary Care Pro vider Yajaira Antnoio Unavailable Encounter Details Date Type Department Care Team (Late st Contact Info) Description 04/21/2025 Orders Only [facility] MEDICINE [address] [place] [address] Imelda Pfeiffer, CHANDU [address] [place] [address] Healthcare maintenance Social History Tobacco Use Types [...] Description 08/05/2025 10:15 AM EST Office Visit [address] [address] Leta Soto MD [address] [place] [address] 09/24/2025 10:15 AM EST Office Visit [address] [address] Leta Soto MD [address] [place] [phone] Scheduled Orders Name Type Priority Associated Diagnoses [...] Load <15 NOT DETECTED NOT DETECTED IU/mL [facility] HCV Log PCR <1.18 NOT DETECTED NOT DETECTED Log IU/mL [facility] Comment:For additional infor tash, please refer tohttp://education.21[employer]/faq/PSX96g3(This link is being provided for informational/educational purposes only.)THIS TEST WAS PERFORMED AT:[employer] [place] [id number] STRICKLAND MD 04/21/2025 10:4 3 AM EDT 04/22/2025 8:54 AM EDT us Leta Dick MD LAB BLOOD ORDERAB LES Final Result Performing Organization Address City/[facility]/ZIP Co de Phone Number [facility] [address] [place] [phone] * HIV-1 RNA, Quantitative, Real-Time PCR (04/21/2025 10:43 AM EDT) HIV RNA PCR Qn Copies NOT DETECTED NOT DETECTED copies/mL [facility] HIV RNA PCR Qn Log Copies NOT DETECTED NOT DETECTED [facility] Comment:Result Units: Log co pies/mLThis test was performed using Real-Time Polymerase ChainReaction.Reportable Range: 20 copies/mL to 10,000,000 copies/mL(1.30 log copies/mL to 7.00 log copies/mL).THIS TEST WAS PERFORMED AT:[employer] [place] [id number] STRICKLAND MD 04/21/2025 10:4 3 AM EDT 04/21/2025 1:18 PM EDT us Leta Dick MD LAB BLOOD ORDERAB LES Final Result Performing Organization Address [facility] Co de Phone Number [facility] [address] [place] [phone] * RPR (Monitor) with Reflex to??Titer (04/21/2025 10:43 AM EDT) RPR (Monitor) w/Refl Titer NON-REACTI VE NON-REACT [place] [facility] Comment:THIS TEST WAS PERFOR MED AT:[employer] [place] [id number] STRICKLAND MD Rapid Plasma Reagin Ab Titer TNP [facility] 04/21/2025 10:4 3 AM EDT 04/21/2025 1:18 PM EDT us Leta Dick MD LAB BLOOD ORDERAB LES Final Result Performing Organization Address [facility] de Phone Number [facility] [address] [place] [phone] * (ABNORMAL) Hepatitis C Antibody with Reflex to HCV, RNA, Quantitative, Real- Time PCR (04/21/2025 10:43 AM EDT) Hepatitis C Antibody Reactive( A) Nonreactive [facility] Comment:Presumptive evidence of antibodies to HCV. 04/21/2025 10:4 3 AM EDT 04/21/2025 1:18 PM EDT us Leta Dick MD LAB BLOOD ORDERAB LES Final Result Performing Organization Address [facility] Phone Number [facility] [address] [place] [phone] Syphilis Screen (04/21/2025 10:43 AM EDT) Syphilis Screen Nonreactive Nonreactive [facility] 04/21/2025 10:4 3 AM EDT 04/21/2025 1:18 PM EDT us Leta Dick MD LAB BLOOD ORDERAB LES Final Result Performing Organization Address [facility] de Phone Number [facility] [address] [place] [phone] documented in this encounter Visit Diagnoses Diagnosis Healthcare maintenance documented in this encounter Additional Health Concerns Assessment Noted Time PHQ-9 Depression Total Score: 0 03/12/20 25 10:25 AM EDT documented as of this encounter Care Teams Camp Nurse Relationship Specialty Start Date End Date Leta Soto MD [address] [place] [phone] PCP - General Internal Medicine 04/11/23 Yajaira Antonio [address] 3rd [place] [address] Gastroenterology 09/04/24 [facility] 01/28/25 documented as of this encounter
[2025-07-20 14:14] LABS: White Blood Count 1.6 X10*3/uL (4.8-10.8)
[2025-07-20 14:19] LABS: Platelet Count 20 X10*3/uL (160-400)
[2025-07-20 16:54] LABS: Blood Urea Nitrogen 16 mg/dL (9-16); Estimated Glomerular Filt Rate > 60
[2025-07-20 16:56] LABS: Alanine Aminotransferase 34 U/L (0-40); Albumin Level 3.0 g/dL (3.5-5.0); Alkaline Phosphatase 140 U/L (39-117); Anion Gap 10 (12-20); Aspartate Amino Transferase 49 U/L (5-37); Blood Urea Nitrogen 16 mg/dL (9-16); Calcium 8.6 mg/dL (8.4-10.2); Carbon Dioxide 25 mmol/L (22-29); Chloride 115 mmol/L (96-108); Estimated Glomerular Filt Rate > 60; Potassium 4.5 mmol/L (3.3-5.1); Sodium 145 mmol/L (135-145); Total Protein 6.3 g/dL (6.5-8.0)
== END 2025-07-20 11:32 | disposition home or self-care (01) ==
LOC: HO.HHCL 11:31
PROVIDERS: Internal Medicine Medical Oncology; PCP Student in an Organized Health Care Education/Training Program; Visit Provider Radiology Vascular & Interventional Radiology
DX: D61.818 Other pancytopenia (principal); D72.819 Decreased white blood cell count, unspecified
CPT/HCPCS: 36415; 80053; 82565; 84520; 85025

== ENCOUNTER 2025-08-01 12:48 | Emergency (ER) | payer MEDICAID, SELFPAY ==
--- NOTE | 2025-08-01 13:06 | ECG_ITS ---
Test Reason : DIZZINESS Blood Pressure : */* mmHG Vent. Rate : 67 BPM Atrial Rate : 67 BPM P-R Int : 134 ms QRS Dur : 88 ms QT Int : 412 ms P-R-T Axes : 41 13 66 degrees QTcB Int : 435 ms Normal sinus rhythm Possible Left atrial enlargement Borderline ECG When compared with ECG of 12-Jul-2025 19:42, No significant change was found Referred By: Generic ED Physician Electronically Signed By: ЕКАТЕРИНА ZARAGOZA
[2025-08-01 13:10] VITALS: BP 144/55; BP 154/60; PULSE 68; PULSE 80; RESP 18; TEMP 36.7; O2SAT 100; BMI 32.7
[2025-08-01 13:30] LABS: Appearance Urine Clear; Glucose Urine UA Negative (Negative); PH 6.5 (5.0-9.0); Specific Gravity - Urine 1.015 (1.005-1.025); UMIC TRIGGER UACC YES
[2025-08-01 13:31] LABS: Imm Gran Abs Auto 0.00 X10*3/uL (0.00-0.03); Imm Gran Pct Auto 0.0 % (0.0-0.4); MANUAL DIFF FLAG SCAN; NRBC Abs Auto 0.000 X10*3/uL (0.0-0.012); NRBC Pct Auto 0.0 /100WBC (0.0-0.2); SCAN SMEAR FLAG 1
[2025-08-01 13:32] LABS: UACC Culture Trigger YES
[2025-08-01 13:33] LABS: Hematocrit 27.1 % (42.0-52.0); Hemoglobin 8.3 g/dl (14.0-18.0); Lymphocytes Absolute Auto 0.5 X10*3/uL (1.2-4.9); Mean Corpuscular HGB Conc 30.6 g/dl (31.0-36.0); Mean Corpuscular Hemoglobin 24.4 pg (27.0-33.0); Mean Corpuscular Volume 79.7 fL (80.0-98.0); PLT ABN DIST 1; Platelet Count 21 X10*3/uL (160-400); Red Blood Count 3.40 X10*6/uL (4.60-5.80); White Blood Count 1.6 X10*3/uL (4.8-10.8)
[2025-08-01 13:37] LABS: Ammonia 64 umol/L (13-55)
--- OUTSIDE RECORDS SUMMARY | 2025-08-01 13:41 | XMS_ITS | Clinical Summary ---
Author Organization [facility] Address [address] [facility] [address] [place] [phone] Phone Care Team Providers Care Edging Machine Feeder Name Role Phone Leta Soto MD [...] Type Department Care Team Description 06/10/2025 Telephone [facility] [address] [facility] 10th [place] [address] Michela Matt MD 10/2 cancelled 06/09/2025 Telephone [facility] [address] [place] [address] Michela Matt MD Procedure Instructions 05/28/2025 10:00 AM EDT Pre-Admission Testing [facility] [address] [place] [phone] Michela Matt MD from Last 3 Months [...] Pre-Admission Testing [facility] [address] [place] [address] Michela Matt MD [address] [place] [phone] [email or web address] 10/08/2025 Procedure Pass [facility] PERIOP DEPT [address] [place] [phone] 10/08/2025 9:00 AM EST [facility] [address] [place] [phone] Michela Matt MD [address] [place] [phone] [email or web address] 10/08/2025 9:00 AM EST [facility]est[facility] [address] [place] [address] Berlin Rosas MD [address] [place] [phone] [email or web address] Juliana Loredo NP [address] [place] [phone] [email or web address] 10/08/2025 9:00 AM EST - 10/08/2025 10:00 AM EST Surgery [facility] DEPT [address] [place] [address] Michela Matt MD [address] [place] [phone] [email or web address] 10/19/2025 2:30 PM EST Office Visit [facility] [address] [address] Michela Matt MD [address] [place] [phone] [email or web address] Scheduled Procedures Name Priority Associated Diagnoses Date/Ti ny LATERAL TARSAL STRIP Ectropion of right upper [...] topic Medical Devices Not on file [place] [address] C3 ACO C3 ACO C3 ACO C3 [employer]CO [employer] C[address] [place] [address] [place] [address] C3 ACO Care Teams Edging Machine Feeder Relationship Specialty Start Date End Date Leta Soto MD [address] [place] [phone] PCP - General Internal Medicine 01/05/25 Additional Source Comments The information contained in this document represents components of the legal health record. It is not the complete legal health record.[facility]
[2025-08-01 13:44] LABS: Alanine Aminotransferase 32 U/L (0-40); Albumin Level 3.3 g/dL (3.5-5.0); Alkaline Phosphatase 139 U/L (39-117); Anion Gap 8 (12-20); Aspartate Amino Transferase 44 U/L (5-37); Blood Urea Nitrogen 15 mg/dL (9-16); Calcium 8.5 mg/dL (8.4-10.2); Carbon Dioxide 24 mmol/L (22-29); Chloride 116 mmol/L (96-108); Creatinine Clr Calc Pharmacy 119.4; Estimated Glomerular Filt Rate > 60; Potassium 4.3 mmol/L (3.3-5.1); Sodium 144 mmol/L (135-145); Total Protein 6.7 g/dL (6.5-8.0)
[2025-08-01 13:51] LABS: Troponin-I High Sensitivity 13.3 ng/L (<3.5-35.0)
[2025-08-01 14:07] VITALS: BP 140/55; PULSE 66; RESP 16; O2SAT 100
[2025-08-01 14:08] LABS: Resp Syncy Virus RNA Qual PCR NEGATIVE (Negative); SARS COV2 PCR INHOUSE NEGATIVE (Negative)
--- NOTE | 2025-08-01 14:15 | ED_ITS ---
HPI - Dizziness General Chief Complaint: Dizziness Stated Complaint: dizzy, blurred vision Time Seen by Provider: 08/01/25 14:14 Source: patient, EMS, RN notes reviewed, old records reviewed and transit coach operator Mode of arrival: EMS Limitations: language barrier ( Patient is Austrian-speaking only. H of C transit coach operator was used) History of Present Illness ED Provider: Dr. 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 Patient also complained of blurred vision since 11:20 hours. at the time my evaluation the patient's symptoms have resolved. He states he has had similar problems in the past. He states he has been compliant with his medications. Review of systems was negative for fever, cough, chest pain, shortness of breath, nausea, vomiting, diarrhea, numbness, weakness, difficulty thinking or speaking. Related Data Home Medications ?Medication ?Instructions ?Recorded ?Confirmed blood pressure test kit-large #1 ea 05/27/25 (Omron Blood Pressure Monitor-3 Series kit) lactulose 10 gram/15 mL oral 40 g PO BID 06/04/2512/02 solution Previous Rx's ?Medication ?Instructions ?Recorded walker #1 ea 02/08/25 amlodipine 5 mg tablet 5 mg PO DAILY #90 tabs 04/21 rifaximin 550 mg tablet (Xifaxan) 550 mg PO BID 90 day s #180 tabs 05/27/25 levofloxacin 750 mg tablet 750 mg PO DAILY #4 tabs 02/01 omeprazole 40 mg capsule,delayed 40 mg PO DAILY #60 ca ps 07/15/25 release Allergies Allergy/AdvReac Type Severity Reaction Status Date / Time dicyclomine (From Bentyl) Allergy Unknown Verified 08/01/25 13:15 aspirin AdvReac Severe stomach Verified 08/01/25 13:15 bleeding NSAIDS (Non-Steroidal AdvReac Severe liver Verified 08/01/25 13:15 Anti-Inflamma concerns Review of Systems 2 Review of Systems: Yes all other systems are reviewed and are negative PMFSH Past Medical History Medical History (Updated 08/02/25 @ 00:00 by Background Daemon) Pancytopenia Falls frequently UGIB (upper gastrointestinal bleed) Portal vein thrombosis Eye abnormality Cirrhosis of liver Pancytopenia Hyperammonemia Pancytopenia Obesity (BMI 30.0-34.9) Fall Pancytopenia Hepatic encephalopathy Cirrhosis Splenic vein thrombosis Sepsis Cirrhosis of liver with ascites Abdominal pain Thrombocytopenia Pancytopenia Cirrhosis Hepatitis C virus infection Esophageal varices Pancytopenia Iron deficiency anemia Cirrhosis Hepatitis C HBP (high blood pressure) Surgical History (Updated 07/23/25 @ 00:01 by Background Daemon) S/P TIPS (transjugular intrahepatic portosystemic shunt) H/O left inguinal hernia repair H/O eye surgery History of esophagogastroduodenoscopy (EGD) H/O colonoscopy Family History Family History Maternal Grandmother Breast CA Uterus cancer Mother Primary lung cancer of unknown cell type Social History Social History Household Members: None Household Members Other:: [place] [facility] Housing: Hom[place] Other[place] [facility] Are you a primary adult care provider to a significant other at home: No Do you presently have visiting nurse or other home services: Yes Alcohol intake: former Comment: steady gait noted Patient Tobacco Use Status: Current everyday Tobacco user Tobacco use type: Cigarette Cigarette Packs Per Day: 1 Cigarettes Per Day: 0.5 Years Smoked: 45 Smoked in Last 30 Days: No e-Cigarette/Vaping Use: Never Used Second Hand Smoke Exposure: No Use of substances other than those prescribed or required for medical reasons: No Substance Use Type: Heroin Advance Directives: Yes Advance Directives on File: Yes Advance Directives Date on File: 04/02/24 service: No Current occupational status: retired Physical Exam 2 Vital Signs: Vital Signs: Last Vital Signs Temp 97.3 F 08/01/25 15:43 Pulse 66 08/01/25 15:43 Resp 16 08/01/25 15:43 BP 140/55 H 08/01/25 15:43 Pulse Ox 100 08/01/25 15:43 O2 Del Method Room Air 08/01/25 15:43 BMI result Body Mass Index 32.7 vital signs revealed elevated blood pressure of 140/55 otherwise unremarkable. Exam: General: Awake, alert in no distress Head: Normocephalic, atraumatic Neck: Supple, no adenopathy Lung: breath sounds symmetric, no wheezing, no rales and no rhonchi Chest: symmetric movement, nontender Heart: regular rate and rhythm, normal S1, S2 no murmurs or rubs Abdomen: soft, non-tender, nondistended, normal bowel sounds Back: no vertebral tenderness, no CVAT Extremities: no deformities, moves all extremities symmetrically, no edema Neuro: Awake, alert, oriented, normal speech, cranial nerves 2-12 intact, moves all extremities symmetrically Psych: Pleasant, cooperative Medical Decision Making Medical Decision Making MDM Narrative: 64-year-old male history of 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 Patient also complained of blurred vision since 11:20 hours. at the time my evaluation the patient's symptoms have resolved. He states he has had similar problems in the past. He states he has been compliant with his medications.Review of systems was negative for fever, cough, chest pain, shortness of breath, nausea, vomiting, diarrhea, numbness, weakness, difficulty thinking or speaking. vital signs revealed elevated blood pressure otherwise unremarkable. exam was normal. Differential diagnosis: Includes but is not limited to Stroke, intracranial bleed, TIA, vertigo, orthostatic hypotension, hepatic encephalopathy, anemia, electrolyte abnormalities Course: My independent interpretation patient's laboratory evaluation is as follows: Chronic microcytic anemia with an H&H of 8.3 and 27. thrombocytopenia 79,000- chronic. CMP unremarkable. Troponin detectable but not elevated 13.3. Ammonia elevated 64. COVID-19, influenza and RSV were negative. The patient's symptoms have resolved, this time I do not think that the patient requires imaging study especially since he has had similar presentations in the past. I did discuss the patient's workup and presentation with his daughter and his daughter will pick him up from the emergency department intake and home. Patient was advised to continue taking his medications as prescribed by his providers and return to the emergency department if his symptoms got worse revealed felt in these symptoms that were concerning to him. Differential Diagnosis Differential Diagnoses: The differential diagnosis associated with the presentation includes ( see above) Admission/Observation Consideration of admission/observation: Escalation of care including admission/observation considered ( VS) Lab Data MDM Lab Attestation statement: I reviewed the patient's lab results. 08/01/25 13:21 08/01/25 13:21 Labs: Lab Results 08/01/25 Range/Units 13:21 WBC 1.6 L (4.8-10.8) X10*3/uL RBC 3.40 L (4.60-5.80) X10*6/uL Hgb 8.3 L (14.0-18.0) g/dl Hct 27.1 L (42.0-52.0) % MCV 79.7 L (80.0-98.0) fL MCH 24.4 L (27.0-33.0) pg MCHC 30.6 L (31.0-36.0) g/dl RDW 17.1 H (11.0-16.0) % Plt Count 21 L (160-400) X10*3/uL MPV Not Reportable Immature Gran % (Auto) 0.0 (0.0-0.4) % Neut % (Auto) 56.7 (45-73) % Lymph % (Auto) 29.3 (20-40) % [place] % (Auto) 11.5 H (2-11) % Eos % (Auto) 2.5 (0-4) % Baso % (Auto) 0.0 (0-2) % Lymph # (Auto) 0.5 L (1.2-4.9) X10*3/uL [place] # (Auto) 0.2 (0.1-1.2) X10*3/uL Eos # (Auto) 0.0 (0.0-0.4) X10*3/uL Baso # (Auto) 0.0 (0.0-0.2) X10*3/uL Abs Immat Gran (auto) 0.00 (0.00-0.03) X10*3/uL Absolute Neuts (auto) 0.9 L (2.0-8.3) x10*3/uL Absolute Nucleated RBC 0.000 (0.0-0.012) X10*3/uL Nucleated RBC % (auto) 0.0 (0.0-0.2) /100WBC Smear Tech's Comments VERIFIED Sodium 144 (135-145) mmol/L Potassium 4.3 (3.3-5.1) mmol/L Chloride 116 H (96-108) mmol/L Carbon Dioxide 24 (22-29) mmol/L Anion Gap 8 L (12-20) BUN 15 (9-16) mg/dL Creatinine 0.74 (0.5-1.4) mg/dL Estim Creat Clear Calc 119.4 Estimated GFR > 60 Random Glucose 81 (60-115) mg/dL Calcium 8.5 (8.4-10.2) mg/dL Total Bilirubin 0.9 (0.0-1.0) mg/dL AST 44 H (5-37) U/L ALT 32 (0-40) U/L Alkaline Phosphatase 139 H (39-117) U/L Ammonia 64 H (13-55) umol/L Troponin I High Sens 13.3 (<3.5-35.0) ng/L Total Protein 6.7 (6.5-8.0) g/dL Albumin 3.3 L (3.5-5.0) g/dL Urine Color Yellow Urine Appearance Clear Urine pH 6.5 (5.0-9.0) Ur Specific [place] 1.015 (1.005-1.025) Urine Protein Negative (Neg-Trace) mg/dL Urine Glucose (UA) Negative (Negative) mg/dL Urine Ketones Negative (Negative) mg/dL Urine Blood Negative (Negative) Urine Nitrite Negative (Negative) Ur Leukocyte Esterase Trace H (Negative) Urine RBC 0-2 (0-2) /HPF Urine WBC 6-10 H (0-5) /HPF Ur Squamous Epith Cells 0-2 (0-2) /HPF Urine Bacteria None Seen (None Seen) Hyaline Casts 0-2 (0-2) /LPF Influenza Type A (PCR) NEGATIVE (Negative) Influenza Type B (PCR) NEGATIVE (Negative) RSV RNA Qual (PCR) NEGATIVE (Negative) SARS-CoV-2 RNA (RT-PCR) NEGATIVE (Negative) Independent Interpretation I performed an independent interpretation of an: EKG Interpretation: my independent interpretation patient's 12 EKG done on 08/01/2025 at 13:11 hours is as follows: Normal sinus rhythm with a rate of 67, normal [place] interval, QRS duration QTC interval, no ST segment elevation, no ST segment depression, no significant T-wave abnormalities. He compared to EKG dated 07/12/2025 at 19:42 hours, no significant changes. Independent Historian Clinical information obtained from an independent historian. History obtained from or confirmed by: Other ( Daughter) External Record Review External record reviewed: Inpatient record Chronic Conditions Patient?s care impacted by: Other ( end-stage liver disease secondary to hepatitis C) Discharge Plan Discharge Clinical Impression: Dizziness Patient Disposition: Home, Self-Care Additional Instructions: Your blood work was unchanged from your baseline. Your ammonia level was slightly elevated 64 (normal is 15-55). Your ammonia in the past has been significantly higher when you been altered and has been encephalopathic due to your liver. At this time, I do not have a clear cause for your dizziness. It is reassuring that your dizziness that has gone away and your exam is normal. Continue taking your medications as prescribed by your providers. Increase the amount of fluid that you drink for the next 24 hours to prevent dehydration. Follow-up with your doctor in 2 days. Please return to the emergency department if your symptoms get worse or if you develop any symptoms that are concerning to you. Prescriptions: No [facility] See [facility] Instructions .Route Qty: 1 0RF Rx Instructions: As directed lactulose 10 gram/15 mL solution 40 g PO BID omeprazole 40 mg capsule,delayed release(DR/EC) 40 mg PO DAILY Qty: 60 0RF Rx Instructions: Take on capsule daily levofloxacin 750 mg tablet 750 mg PO DAILY Qty: 4 0RF Rx Instructions: Take one tablet daily for the next 4 days, starting on 07/16 and ending on 07/19 (DME) blood pressure test kit-large [Omron BP Monitor-3 Series] Kit See Rx Instructions .ROUTE DAILY Qty: 1 Rx Instructions: As directed Xifaxan 550 mg tablet 550 mg PO BID 90 Days Qty: 180 0RF amlodipine 5 mg tablet 5 mg PO DAILY Qty: 90 0RF Interventions: ED Discharge Assessment Last Done: 08/01/25 15:43 Discharge Date/Time: 08/01/25 15:44 Print Language: Austrian
[2025-08-01 15:43] VITALS: BP 140/55; PULSE 66; RESP 16; TEMP 36.3; O2SAT 100
== END 2025-08-01 15:44 | disposition home or self-care (01) ==
PROVIDERS: Emergency Provider Emergency Medicine Emergency Medical Services; PCP Student in an Organized Health Care Education/Training Program
DX: R42 Dizziness and giddiness (principal); H53.8 Other visual disturbances; K72.10 Chronic hepatic failure without coma; B19.20 Unspecified viral hepatitis C without hepatic coma; Z03.818 Encounter for observation for suspected exposure to other biological agents ruled out; R94.31 Abnormal electrocardiogram [ECG] [EKG]
CPT/HCPCS: 36415; 80053; 81001; 82140; 84484; 85025; 87086; 87088; 87186; 87637; 93005; 99283; 99284

== ENCOUNTER → 2025-08-01 13:06 | Outpatient (BNV) | payer MEDICAID, SELFPAY | PROVIDERS: Emergency Provider Emergency Medicine Emergency Medical Services; PCP Student in an Organized Health Care Education/Training Program; Visit Provider Internal Medicine | DX: R42 Dizziness and giddiness (principal) | CPT/HCPCS: 93010 ==

== ENCOUNTER 2025-08-10 11:07 | Outpatient (REF) | payer MEDICAID, SELFPAY ==
--- OUTSIDE RECORDS SUMMARY | 2025-08-05 10:15 | XMS_ITS | Encounter Summary ---
Author Organization [employer] Address [address] [place] [address] 119[address] Care Team Providers Care Circulation Analyst Name Role Phone Leta Soto MD Primary Care Pro vider Paco, Yajaira Unavailable Reason for Referral * Consultation (Routine) - Authorized Specialty Diagnoses / Procedures Referred By Contac t Referred To Contact Diagnoses Cognitive impairment Leta Soto MD [address] [place] [address] Phone: tel: fax: Referral ID Status Reason Start Date Expiration Date Visits Requested Visits Authorized [id number] Authorized Specialty Services Required 08/05/2026 1 1 Encounter Details Date Type Department Care Team (Latest Contact Info) Description 08/05/2025 10:15 AM EST Office Visit [facility] MEDICINE [address] [place] [address] [phone] Leta Soto MD [address], [place] [phone] Cognitive impairment (Primary Dx); Essential hypertension; Anemia, unspecified type; Severe thrombocytopenia (CMS/HCC); Obesity due to excess calories without serious comorbidity, unspecified class; Other cirrhosis of liver (HCC); Healthcare maintenance; Hospital discharge follow-up; Homeless; Tobacco use Social History Tobacco Use Types Packs/Day Years [...] Sign Reading Time Taken Comments Blood Pressure 170/50 08/05/2025 11:06 AM EST Pulse 80 08/05/2025 11:06 AM EST Temperature 36.4 C (97.5 F) 08/05/2025 10:36 AM EST Respiratory Rate 20 08/05/2025 10:36 AM EST Oxygen Saturation 96% 08/05/2025 10:36 AM EST Inhaled Oxygen Concentration - - Weight 98.6 kg (217 lb 6.4 oz) 08/05/2025 10:36 AM EST Height 180.3 cm (5' 11 ) 08/05/2025 10:36 AM EST Body Mass Index 30.32 08/05/2025 10:36 AM EST documented in this encounter Progress Notes * Leta Dick MD - 08/05/2025 10:15 AM EST Subjective Patient ID: Adelso Mcmanus is a 64 y.o. male who presents for HFU HPI FULL CODE Alayna Oliveira ( technology project manager at [facility] # [id number]) [employer] pt ,VNA referred again pt lives in a 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 Pt comes for HFU -from pharmacy [facility] (06/04/25 - 06/05/25) Patient with history of HCV cirrhosis presented from the long term with confusion. Patient reported dizziness from a medication but was unsure which one. Ammonia level was 64, raising concern for altered mental status. Admitted for altered mental status due to hepatic encephalopathy and was started on lactulose. There were no signs of systemic infection. Mental status improved significantly, with afaster- than-expected recovery. Discharged home to continue with lactulose as prescribed. Follow upwith PCP in 1 week. No medication changes occurred during this hospitalization [facility] (06/09/25 - 06/10/25) Patient presented with altered mental status. At the primary care office, they were noted to be unsteady with sluggish speech. Ammonia level approximate at baseline, around 80 in the ED. Over the next 24 hours, patient's mental status returned to normal. Discharged home to continue with lactulose as prescribed. Follow up with PCP in 1 week. No medication changes occurred during this hospitalization [facility] (07/13/25 - 07/15/25) Patient with history of liver cirrhosis due to hepatitis C infection, splenic vein thrombosis, large varices, chronic thrombocytopenia, multiple hospitalization due to hepatic encephalopathy, and hypertension presented with dizziness upon standing up, associated with SOB on exertion. UA was negative for infection, hematuria or proteinuria. Abdomen and pelvis CT , chest CTA, and C- spine CT scan ,CT head showed no acute process. ECG showed normal sinus rhythm. Admitted for acute on chronic blood loss anemia, initially concerning for esophageal variceal bleeding. Patient was transfused 1 unit PRBCs in the ED and was started on octreotide, IV Protonix, and empiric ceftriaxone. Patient was evaluated by GI and underwent EDG, which showed slow chronic oozing upper GI bleeding likely secondary toGAVE, which was ablated by GI. Octreotide was discontinued, PPI was switched to oral, and patient was started on ciprofloxacin for a total of 5 days. Hemoglobin dropped to 7.2, then improved to 7.8 by discharge. Discharged home on levofloxacin and omeprazole, and encouraged to continue lactulose asprescribed. Follow up with Dr. Antonio in Gi for repeat EGD with ablation in 6-8 weeks and with PCP in 1 week. Medication changes that occurred during hospitalization include: Added Omeprazole 40 mg - Take one capsule by mouth once daily Levofloxacin 750 mg - Take one tablet by mouth daily for the next 4 days; starting 07/16 and ending on 07/19 Changed- none Discontinued - none ED -[facility] (08/01/25) Patient presented with dizziness and blurred vision. Ammonia was elevated at 64. COVID-19, influenza, and RSV test were negative. EKG showed normal sinus rhythm. Patient symptoms resolved, no clear cause for the dizziness was identified. Patient was advised to continue taking medications as prescribed and increase fluid intake to prevent dehydration. Discharge home to follow up with PCP in 2 days. -07/20/2025 chem: AST 49<--40<--32<--41 ALT 34, Hb 7.6 <-- 7.7<---9.3 in 05/2025 wbc 1.6<--1.4<--1.4 . MCV wnl, platelets 20 ,PT elevated ,INR elevated ,ProBNP wnl -07/12/2025 CE x1 neg ,Amonia 78<--64<---130<---142<--171 Pt reports currently feeling well , denies having any respiratory,cardiac symptoms ,denies or GIcomplaints ,denies BRPR nor melenas , reports having mx Bms a day because confirms taking cszligibg43 ml TID per pt Denies dizziness nor change in mentation Pt brings medbox and noted only amlodipine and not all days have med , no further iron in Box because pt took doses daily instead of 3 times a week .denies taking any other meds as PPis, Rifaximin ------- Assessment and Plan: Health care maintenance -Annual exam done 11/2024 w another provider -T-spot 11/2024 Neg -PSA-will order at next apt at annual exam -Colonoscopy - per pt in [place] 5 y ago - neg per pt. --already f w GI with plan from notes to do procedure -Vaccines : S/p Tdap 05/2023 ,P20 on 05/2023 ,(offer Shingrix today but thinks he got [address] [place] and refusing for now -advised to bring record . Hep B not immune now s/p 3 doses .Hep A immune . Covid19 x3 per pt in [place] ,refused booster. RSV advised today to get at px--refuse .Flu and COVID 19 vaccine offered today--refuse both today Hepatitis C s/p Tx w Epclusa Cirrhosis w esophageal varices Recurrent hepatic encepahlopathy s/p banding and s/p TIPS 10/2024 -Most likely from sexual transmission - denies IV drug use. -03/2023: AFP neg -05/2023 hep C geotype 1A -liver fibrosis score 05/2023 F3-F4 (advanced fibrosis) -EGD 08/2024 : #4 Columns of large varices occupying the entire lumen of the esophagus with multiple red abilio reddy were noted to extend from GE junction,gastric diffuse congestion in mosaic pattern consistent w portal hypertensive gastropathy ,small hiatal hernia and likely fundal varices 4-5 large 1.5 to 2 cm polyps in stomach consistent w hyperplastic polyps ,duodenum hyperplasia., had varicesbanded # 5 -CT abdomen pelvis w IV con 01/2025 findings consistent with previous tips procedure, cirrhosis, significant splenomegaly and partial thrombosis of main portal vein. Moderate colonic stool with prominent rectosigmoid stool and rectal distention may represent fecal impaction. -Abd US 02/2025 patent TIPS, partial chronic non occlusive thrombus in main portal vein -07/20/2025 chem: AST 49<--40<--32<--41 ALT 34, Hb 7.6 <-- 7.7<---9.3 in 05/2025 wbc 1.6<--1.4<--1.4 . MCV wnl, platelets 20 ,PT elevated ,INR elevated ,ProBNP wnl -07/12/2025 CE x1 neg ,Amonia 78<--64<---130<---142<--171 -seen by GI 05/27/25 Yajaira Antonio MD -to continue Rifaximin alongside lactulose I called today pt's GI sp -Dr Gates # [phone] Per pt reports having daily stools mx times given reports to be compliant w lactulose , Of note I requested pt to bring Lactulose from pharmacy so I can see how he is taking med . Pt did bring today med from pharmacy and showed me correctly that he is taking lactulose 45 ml per pt compliant w TID dosing Pt is not taking Rifaximin given not covered by insurance . I called his GI office but was not ableto reach but left a voice mail requesting a call back but per pharmacy GI office is already aware and apparently started already request to special program to access med for pt , I request pharmacy to f up w GI office Per GI's plan in regards encephalopathy pt was already referred for CT triple phased for re-assessment for PV thrombosis and to consider w IR re portal vein thrombectomy to reduce portal pressures followed by narrowing of the shunt. This options seems will be done only if after confirming pt is compliant w lactulose andrifaximin pt still experiencing encephalopathy otherwise trying to be avoided to decrease risk for portal hypertension again . Per GI from recent EGD done in 05/2025 There are no findings concerning for elevated portal hypertension that improved after TIPS so GI does not seems any longer indication for carvedilol that was started by GI , also recommended to discontinue as well lasix for same reason done already in 05/2025 -will offer nutriotnsit referral at next apt or talk about it to improve encephalopathy pt needs adequate protein intake (1 g/kg/day) should be maintained, as protein restriction is not beneficial and may worsen outcomes. Education for patients and caregivers regarding medication adherence and nut rition (including a nighttime snack to prevent catabolism) is associated with improved outcomes. -continue lactulose 45 Ml TID -Rifaximin 550 mg BID-encouraged pt to make sure to take med and to f w GI as above -Continue care w GI-Paco Gates -needs Abd US and AFP e 6 mo for HCC screening -f w GI ,but will order if not done until next apt -I called today cousin -Sherie who states pt has apt w GI for 08/19/2025 and for abdominal US 09/11/2025 Portal Thrombosis S/p TIPS 10/15/24 patient is not a candidate for anticoagulation due to severe thrombocytopenia with plan for OP thrombectomy. Plan as above Pancytopenia -07/20/2025 chem: AST 49<--40<--32<--41 ALT 34, Hb 7.6 <-- 7.7<---9.3 in 05/2025 wbc 1.6<--1.4<--1.4 . MCV wnl, platelets 20 ,PT elevated ,INR elevated -04/23/2023 - DAVID neg, RF neg, IgG elevated - 2,278, IgA elevated 396, immune fixation neg. AFP neg, HIV neg, K 4.1 <-- elevated before, Cr wnl, LDH 201, Alb 3.6, Alk Phos wnl, ESR normal, INR 1.1; PT 13.6 (elevated) -05/2023 ferritin low ,rest of iron panel wnl Likely from Hep C cirrhosis Saw hem -Dr. Coleman 12/2024 with plan to f in 6 mo -continue iron pt taking 3 times a week -concern w increase dose of iron and cause constipation andworsening episodes of encephalopathy -pt denies taking PPIs since hospital discharge -prescribed Omeprazole 40 mg daily -requested to beplace in [facility] -repeat CBC to be done in 1 mo ordered today -I called today Hem Office and spoke w FD staff ,explained that pt was recently hospitalized w worsening anemia and needs f up and consideration for IV iron - they will call pt to schedule apt Obesity BMI 30 Per pt eating better now -Advised pt to improve diet and exercise,discussed healthy life style Hypertension BP fluctuates significantly ,last apt was normal ,today elevated and pt seems to be picking and choosing meds from [facility] ,he just took BP med in office today -Microalbumin. 05/2023 Neg -EKG 11/27/2022 HR 72, Qtc 427, no ischemc findings , NSR -culinary worker seen last 12/2024 and has f up apt 06/2025 Carvedilol stopped before for ongoing dizziness and episodes of orthostasis -continue Amlodipine 5 mg daily -Will bring home BP readings at next apt. Prescribed BP machine at last apt -pt to come to see RN for BP chek in 2 weeks , if ongoing elevated episodes if confirmed pt is now compliant w amlodipine may consider to increase to BID dosing ? Prosthetic R eye / Suspect glaucoma Already following w culinary worker -culinary worker seen last 12/2024 -states in current eval for eye prosthesis -has apt in 06/2025 In Roll w eye sp-seems lost apt Depression Pt appears in good spirits,denies feeling depressed at this time -pt states he follows w a therapist at long term Skin lesions Likely seborrheic keratosis -Referred to flight test shop mechanic in the past Cognitive impairment -Referred already to neuropsychologist for evaluation-seen already per pt and family? -Referred at last apt to CM -referred again today as in housing problem -RN to help w VNA today -pt agreed today -gave today HCP -advised pt to give to cousin if he will chose her to help w completion Tobacco use Pt smokes since 15 y of age until now. Per pt around 1/2 cig a day <----1 cig<------- 1-2 from 3 cigs / day. Smoking years 47. PQT calc 7.05 -pxed in the past patches and gums but refusing now ,states will continue to try quitting -continue to monitor -would offer at 66y o age AAA US Housing instability currently living at a long term he is a very marta risk for falls and has very low platelets w risk of bleeding . He will benefit from a long-term ,needs 24 h assistance for now . I Spoke today w Alayna Oliveira ( technology project manager at [facility] # [id number]) who states is very hard totake care of pt there given recurrent hospitalizations and seems place not safe for him. -I spoke w CM at [facility] Chata Puente referred again today and request help w evaluation for housing -pt may benefit from half-way , assisted living ? ,also request help with apts ( scheduling and reminders) --apt w Care management was scheduled for 08/18/25 at 1:30 PM. Bl LE edema -Bl doppler leg US 11/2024 Negative for bilateral lower extremity deep vein thrombosis. Likely from hypoalbuminemia due to advanced liver disease stopping lasix rec by GI for dizziness -monitor Syncopal event Dizziness -CT head/brain wo IV con 01/2025 No acute intracranial findings. -CT cervical spine wo IV con 01/2025 Stable minimal anterolisthesis C3-4, C6-7 and C7-T1. Degenerative disc disease C6-7. -CT angio head neck 02/2025 Patent neck CTA. No definite intracranial large vessel occlusion. -ground support equipment assembler seen 03/2025 by Madi Hernandez SENIOR RISK MANAGER for Dizziness and giddiness. Reported TTE 10/13/2024-echo study showed normal LV systolic function with an ejection fraction between 60-65%, with mildly increased LV wall thickness, with indeterminate filling pressures, and moderately dilated left atrium. -referred for Holter study -pd to have done ??? -will check w pt at next apt if pt completed evaluation-will need to continue to follow w ground support equipment assembler -CT angio head neck 06/2025 No arterial occlusion or high-grade stenosis in the head or neck. No intracranial aneurysm. Today negative orthostatic VS ,denies having dizziness at this time Pt has severe anemia and this may precipitate symptoms w activity Pt is very poor historian -monitor -management as in cirrhosis and anemia problem Review of Systems Constitutional: Negative for diaphoresis and fever. HENT: Negative. Respiratory: Negative for cough and shortness of breath. Cardiovascular: Negative for chest pain, palpitations and leg swelling. Gastrointestinal: Negative for blood in stool. Genitourinary: Negative. Neurological: Negative for dizziness. Objective BP (!) 170/50 (BP Location: Right arm, Patient Position: Standing, BP Cuff Size: Adult) Pulse 80 Temp 97.5 ??F (36.4 ??C) (Temporal) Resp 20 Ht 5' 11 (1.803 m) Wt 217 lb 6.4 oz (98.6 kg) SpO2 96% BMI 30.32 kg/m?? Physical Exam Constitutional: General: He is not in acute distress. Appearance: Normal appearance. He is not ill-appearing. HENT: Mouth/Throat: Mouth: Mucous membranes are moist. Cardiovascular: Rate and Rhythm: Normal rate and regular rhythm. Pulmonary: Effort: Pulmonary effort is normal. Breath sounds: Normal breath sounds. Abdominal: Palpations: Abdomen is soft. Neurological: Mental Status: He is alert. Assessment/Plan Problem List Items Addressed This Visit Homeless Essential hypertension Relevant Medications amLODIPine (Norvasc) 5 MG tablet Severe thrombocytopenia (CMS/HCC) Healthcare maintenance Tobacco use Cognitive impairment - Primary Relevant Orders Referral to Care Management Obesity Cirrhosis (CMS/HCC) (HCC) Relevant Medications lactulose (Chronulac) 10 GM/15ML solution omeprazole (PriLOSEC) [address] yuko Hospital discharge follow-up Other Visit Diagnoses Anemia, unspecified type Relevant Medications lactulose (Chronulac) 10 GM/15ML solution Other Relevant Orders CBC auto differential documented in this encounter Plan of Treatment Upcoming Encounters Date Type Department Care Team (Late st Contact Info) Description 08/21/2025 10:00 AM EST Clinical Support [facility] MEDICINE [address] [place] [phone] 09/24/2025 10:15 AM EST Office Visit [facility] MEDICINE [address] [place] [phone] Leta Soto MD [address] [place] [phone] Scheduled Orders Name Type Priority Associated Diagnoses Orde r Schedule CBC auto differential Lab Routine Anemia, unspecified type Expected: 09/04/2025 (Approximate), Expires: 08/05/2026 Scheduled Referrals Name Type Priority Associated Diagnoses Order Schedule Referral to Care Management Outpatient Referral Routine Cognitive impairment Expected: 08/05/2025 (Approximate), Expires: 08/05/2026 documented as of this encounter Goals Goal Patient Goal Type Associated Problems Recent Progress Patient-Stated? Author Blood Pressure < 140/90 Blood Pressure 170/50(2024 11:06 AM EST) Loan Newsome Record your blood pressure once per day Blood Pressure No Loan [place]bot documented as of this encounter Visit Diagnoses Diagnosis Cognitive impairment- Primary Unspecified persistent mental disorders due to conditions classified elsewhere Essential hypertension Unspecified essential hypertension Anemia, unspecified type Severe thrombocytopenia (CMS/HCC) Obesity due to excess calories without serious comorbidity, unspecified class Other cirrhosis of liver (HCC) Healthcare maintenance Hospital discharge follow-up Other follow-up examination Homeless Lack of housing Tobacco use documented in this encounter Additional Health Concerns Assessment Noted Time PHQ-9 Depression Total Score: 0 03/12/20 25 10:25 AM EDT documented as of this encounter Care Teams Circulation Analyst Relationship Specialty Start Date End Date Leta Soto MD [address] [place] [phone] PCP - General Internal Medicine 04/11/23 Yajaira Antonio [address] [place] [address] Drive 3rd [place] [address] Gastroenterology 09/04/24 [facility] 01/28/25 documented as of this encounter
[2025-08-10 13:24] LABS: Appearance Urine Clear; Glucose Urine UA Negative (Negative); PH 6.5 (5.0-9.0); Specific Gravity - Urine 1.015 (1.005-1.025)
[2025-08-10 13:37] LABS: Hematocrit 31.8 % (42.0-52.0); Hemoglobin 9.7 g/dl (14.0-18.0); Imm Gran Abs Auto 0.01 X10*3/uL (0.00-0.03); Imm Gran Pct Auto 0.5 % (0.0-0.4); Lymphocytes Absolute Auto 0.6 X10*3/uL (1.2-4.9); Mean Corpuscular HGB Conc 30.5 g/dl (31.0-36.0); Mean Corpuscular Hemoglobin 24.5 pg (27.0-33.0); Mean Corpuscular Volume 80.3 fL (80.0-98.0); NRBC Abs Auto 0.000 X10*3/uL (0.0-0.012); NRBC Pct Auto 0.0 /100WBC (0.0-0.2); Red Blood Count 3.96 X10*6/uL (4.60-5.80)
[2025-08-10 13:38] LABS: Platelet Count 24 X10*3/uL (160-400); White Blood Count 2.1 X10*3/uL (4.8-10.8)
[2025-08-10 13:49] LABS: Alanine Aminotransferase 33 U/L (0-40); Albumin Level 3.5 g/dL (3.5-5.0); Alkaline Phosphatase 145 U/L (39-117); Anion Gap 9 (12-20); Aspartate Amino Transferase 46 U/L (5-37); Blood Urea Nitrogen 11 mg/dL (9-16); Calcium 8.5 mg/dL (8.4-10.2); Carbon Dioxide 24 mmol/L (22-29); Chloride 114 mmol/L (96-108); Estimated Glomerular Filt Rate > 60; Potassium 4.3 mmol/L (3.3-5.1); Sodium 143 mmol/L (135-145); Total Protein 7.1 g/dL (6.5-8.0)
--- OUTSIDE RECORDS SUMMARY | 2025-08-10 14:34 | XMS_ITS | Encounter Summary ---
Author Organization [employer] Address [address] [facility] 7[address] [place] [address] Care Team Providers Care Batch And Furnace Manager Name Role Phone Leta Soto MD Primary Care Pro vider Yajaira Antonio Unavailable Encounter Details Date Type Department Care Team (Late st Contact Info) Description 07/31/2025 Telephone [facility] MEDICINE [address] [place] [address] Leta Soto MD [address] [place] [address] Social History Tobacco Use Types Packs/Day Years [...] Description 08/21/2025 10:00 AM EST Clinical Support [facility] MEDICINE [address] [place] [phone] 09/24/2025 10:15 AM EST Office Visit [facility] MEDICINE [address] [place] [phone] Leta Soto MD [address] [place] [phone] documented as of this encounter Goals Goal [...] documented as of this encounter Care Teams Batch And Furnace Manager Relationship Specialty Start Date End Date Leta Soto MD [address] [place] [phone] PCP - General Internal Medicine 04/11/[address] [place] [address] Gastroenterology 09/04/24 [facility] 01/28/25 documented as of this encounter
--- OUTSIDE RECORDS SUMMARY | 2025-08-10 14:34 | XMS_ITS | Clinical Summary ---
Author Organization [facility] Address [address] [facility] [address] [place] [phone] Phone Care Team Providers Care Golf Tournament Consultant Name Role Phone Leta Soto MD [...] Type Department Care Team Description 06/10/2025 Telephone [facility] [address] [facility] 10th [place] [address] Michela Matt MD 10/2 cancelled 06/09/2025 Telephone [facility] [address] [place] [address] Michela Matt MD Procedure Instructions 05/28/2025 10:00 AM EDT Pre-Admission Testing [facility] Pre Procedure Evaluation Center [address] [place] [phone] Michela Matt MD from Last 3 Months [...] Pre-Admission Testing [facility] Pre Procedure Evaluation [facility] [address] [place] [address] Michela Matt MD [address] [place] [id number] [email or web address] 10/08/2025 Procedure Pass [facility] PERIOP DEPT [address] [place] [phone] 10/08/2025 9:00 AM EST Hospital [facility] [address] [place] [phone] Michela Matt MD [address] [place] [id number] [email or web address] 10/08/2025 9:00 AM EST Anesthesia Event [facility] [address] [place] [phone] Berlin Rosas MD [address] [place] [phone] [email or web address] Juliana Loredo NP [address] [place] [phone] [email or web address] 10/08/2025 9:00 AM EST - 10/08/2025 10:00 AM EST Surgery [facility] DEPT [address] [place] [address] Michela Matt MD [address] [place] [phone] [email or web address] 10/19/2025 2:30 PM EST Office Visit [facility] [address] [address] Michela Matt MD [address] [place] [phone] [email or web address] Scheduled Procedures Name Priority [...] topic Medical Devices Not on file [place] [address] [place] [address] C3 ACO C3 ACO C3 ACO C3 ACO [facility] [place] [place] [address] [place] [address] C3 ACO Care Teams Golf Tournament Consultant Relationship Specialty Start Date End Date Leta Soto MD [address] [place] [phone] PCP - General Internal Medicine 01/05/25 Additional Source Comments The information contained in this document represents components of the legal health record. It is not the complete legal health record.[facility]
--- OUTSIDE RECORDS SUMMARY | 2025-08-10 14:35 | XMS_ITS ---
Author Organization [employer] Address [address] [facility] 7t [place] [address] Care Team Providers Care Winemaker Name Role Phone Leta Soto MD Primary Care Pro vider Yajaira Antonio Unavailable [facility] Complex Status:Outreach In Progress (Enrolling) Start date:11/27/2024 Enrollment reason:Referred by provider Overview PCP Referral- 63-year-old male with HCV cirrhosis and multiple hospitalizations for hepatic encephalopathy with ongoing homelessness, poor health literacy. Needs support managing specialist appointments. Please outreach for enrollment. Case Team Name Relationship Phone Chata Puente(Responsible Staff) [phone] Continued Care and Services Coordination
--- OUTSIDE RECORDS SUMMARY | 2025-08-10 14:35 | XMS_ITS | Encounter Summary ---
Author Organization [employer] Address 75 [facility] 7t [place] [address] Care Team Providers Care Glove Wrapper Name Role Phone Leta Soto MD Primary Care Pro vider Yajaira Antonio Unavailable Encounter Details Date Type Department Care Team (Late st Contact Info) Description 08/10/2025 Patient Outreach [facility] [address] [place] [address] Leta Soto MD [address] [place] [address] Social History Tobacco Use Types Packs/Day Years [...] encounter Progress Notes * Chata Puente - 08/10/2025 10:45 AM EST Appointment Reminder: Patient has an appointment on 08/26/25 at 1 PM with GI at [facility]. Call to GI: CHW will contact the GI office to confirm the appointment. Patient Reminder: Remind the patient to bring someone with them to help fill out forms, which are necessary for getting medication approved through their health insurance. documented in this encounter Plan of Treatment Upcoming Encounters Date Type Department Care Team (Late st Contact Info) Description 08/21/2025 10:00 AM EST Clinical Support [facility] [address] [place] [address] 09/24/2025 10:15 AM EST Office Visit [facility] [address] [place] [address] Leta Soto MD [address] [place] [address] documented as of this encounter Goals Goal [...] documented as of this encounter Care Teams Glove Wrapper Relationship Specialty Start Date End Date Leta Soto MD [address] [place] [address] PCP - General Internal Medicine 04/11/23 Yajaira Antonio [address] [place] [address] 3rd [place] [address] Gastroenterology 09/04/24 [facility] 01/28/25 documented as of this encounter
--- OUTSIDE RECORDS SUMMARY | 2025-08-10 14:35 | XMS_ITS | Encounter Summary ---
Author Organization [employer] Address 75 [facility] 7t [place] [address] Care Team Providers Care Sleep Tech Name Role Phone Leta Soto MD Primary Care Pro vider Yajaira Antonio Unavailable Encounter Details Date Type Department Care Team (Late st Contact Info) Description 08/10/2025 Orders Only [facility] [address] [place] [address] Leta Soto MD 230 [place] [address] Social History Tobacco Use Types Packs/Day Years [...] Progress Notes * Leta Dick MD - 08/10/2025 1:33 PM EST I received a call back today from GI today and spoke w Was told pt has appointment on 08/26/25 at 1 PM with GI at [facility] and that pt needsto bring someone with him to help fill out forms, for Rifaximin that only pt can complete Also was told there is plan for pt to undergo TIPS procedure but as well under insurance evaluationto be covered Discussed about anemia and my concern to increase iron dose to daily for risk of constipation and worsening encephalopathy GI sp reports will f w pt and they can also f w pt if needs IV iron if not following w Hem I called today ANGEL Puente and request to remind pt about above information Also I called mx times his cousin? Sherie Dick but not able to reach so left voice main w above information and I called pt also and informed all of the above , pt was at [facility] and w a friend Sandra informed both so pt can be reinforced in plan In regards UA done today is neg so no culture to be done -I am requesting [place] to fax UA result to care as requested by them No indication for ATB for UTI -pt reports again to be asymptomatic w neg UA documented in this encounter Plan of Treatment Upcoming Encounters Date Type Department Care Team (Late st Contact Info) Description 08/21/2025 10:00 AM EST Clinical Support [facility] [address] [place] [address] 09/24/2025 10:15 AM EST Office Visit [facility] [address] [place] [address] [phone] Leta Soto MD [address] [place], [place] [phone] documented as of this encounter Goals Goal Patient Goal Type Associated Problems Recent Progress Patient-Stated? Author Blood Pressure < 140/90 Blood Pressure 170/50(2024 11:06 AM EST) No Loan Talbot Record your blood pressure once per day Blood Pressure No Loan Talbot documented as of this encounter Procedures Procedure Name Priority Date/Time Associated Diagnosis Comments CBC WITH AUTO DIFFERENTIAL Routine 08/10/2025 11:17 AM EST COMPREHENSIVE METABOLIC PANEL Routine 08/10/2025 11:17 AM EST documented in this encounter Results * (ABNORMAL) Comprehensive Metabolic Panel (08/10/2025 11:17 AM EST) Sodium 143 135 - 145 mmol/L [facility] Potassium 4.3 3.3 - 5.1 mmol/L [facility] Chloride 114(H) 96 - 108 mmol/L [facility] Carbon Dioxide 24 22 - 29 mmol/L [facility] Anion Gap 9(L) 12 - 20 [facility] Urea Nitrogen (BUN) 11 9 - 16 mg/dL [facility] Creatinine, Serum 0.85 0.5 - 1.4 mg/dL [facility] Estimated Glomerular Filt Rate >60 [facility] Comment:Chronic Kidney Disea se: Estimated GFR < 60 mL/min/[id number] Kidney Disease: Estimated GFR < 15 mL/min/1.73m2 Glucose 90 60 - 115 mg/dL [facility] Calcium 8.5 8.4 - 10.2 mg/dL [facility] Bilirubin, Total 1.5(H) 0.0 - 1.0 mg/dL [facility] Aspartate Amino Transferase 46(H) 5 - 37 U/L [facility] Alanine Aminotransferase 33 0 - 40 U/L [facility] Total Protein 7.1 6.5 - 8.0 g/dL [facility] Albumin Level 3.5 3.5 - 5.0 g/dL [facility] Alkaline Phosphatase 145(H) 39 - 117 U/L [facility] 08/10/2025 11:1 7 AM EST 08/10/2025 1:06 PM EST us Generic External Data Provider LAB BLOOD ORDERAB LES Final Result [facility] [address] [place] [address] [phone] * (ABNORMAL) CBC auto differential (08/10/2025 11:17 AM EST) White Blood Count 2.1(L) 4.8 - 10.8 X10*3/uL [facility] Red Blood Count 3.96(L) 4.60 - 5.80 X10*6/uL [facility] Hemoglobin 9.7(L) 14.0 - 18.0 g/dl [facility] Hematocrit 31.8(L) 42.0 - 52.0 % [facility] Mean Corpuscular Volume 80.3 80.0 - 98.0 fL [facility] Mean Corpuscular Hemoglobin 24.5(L) 27.0 - 33.0 pg [facility] Mean Corpuscular HGB Conc 30.5(L) 31.0 - 36.0 g/dl [facility] Red Cell Distribution Width 17.0(H) 11.0 - 16.0 % [facility] Platelet Count 24(L) 160 - 400 X10*3/uL [facility] Neutrophils Percent Auto 62.0 45 - 73 % [facility] Imm Gran Pct Auto 0.5(H) 0.0 - 0.4 % [facility] Lymphocytes Percent Auto 26.2 20 - 40 % [facility] Monocytes Percent Auto 8.9 2 - 11 % [facility] Eosinophils Percent Auto 1.9 0 - 4 % [facility] Basophils Percent Auto 0.5 0 - 2 % [facility] NRBC Pct Auto 0.0 0.0 - 0.2 /100WBC [facility] Neutrophils Absolute Auto 1.3(L) 2.0 - 8.3 x10*3/uL [facility] Imm Gran Abs Auto 0.01 0.00 - 0.03 X10*3/uL [facility] Lymphocytes Absolute Auto 0.6(L) 1.2 - 4.9 X10*3/uL [facility] Monocytes Absolute Auto 0.2 0.1 - 1.2 X10*3/uL [facility] Eosinophils Absolute Auto 0.0 0.0 - 0.4 X10*3/uL [facility] Basophils Absolute Auto 0.0 0.0 - 0.2 X10*3/uL [facility] NRBC Abs Auto 0.000 0.0 - 0.012 X10*3/uL [facility] 08/10/2025 11:1 7 AM EST 08/10/2025 1:06 PM EST us Generic External Data Provider LAB BLOOD ORDERAB LES Edited Result - Final [facility] [address] [place] [address] [phone] documented in this encounter Visit Diagnoses Not on filedocumented in this encounter Additional Health Concerns Assessment Noted Time PHQ-9 Depression Total Score: 0 03/12/20 25 10:25 AM EDT documented as of this encounter Care Teams Sleep Tech Relationship Specialty Start Date End Date Leta Soto MD [address] [place] [phone] PCP - General Internal Medicine 04/11/23 Yajaira Antonio [address] [place] [address] Drive 3rd [place] [address] Gastroenterology 09/04/24 [facility] 01/28/25 documented as of this encounter
--- OUTSIDE RECORDS SUMMARY | 2025-08-10 14:35 | XMS_ITS | Encounter Summary ---
Author Organization [employer] Address [address] [facility] [address] 7t [place] [address] Care Team Providers Care X Ray Technologist Name Role Phone Leta Soto MD Primary Care Pro vider Yajaira Antonio Unavailable Reason for Visit * Reason Comments Med Refill Encounter Details Date Type Department Care Team (Late st Contact Info) Description 07/31/2025 Refill [facility] [address] [place] [address] Victoriano Beyer MD [address] [place] [address] Oral ulcer Social History Tobacco Use Types [...] Description 08/21/2025 10:00 AM EST Clinical Support [address] [address] 09/24/2025 10:15 AM EST Office Visit [address] [address] Leta Soto MD [address] [place] [address] documented as of this encounter Goals Goal [...] documented as of this encounter Care Teams X Ray Technologist Relationship Specialty Start Date End Date Leta Soto MD [address] [place] [address] PCP - General Internal Medicine 04/11/[address] 3rd [place] [address] Gastroenterology 09/04/24 [facility] 01/28/25 documented as of this encounter
--- OUTSIDE RECORDS SUMMARY | 2025-08-10 14:35 | XMS_ITS | Encounter Summary ---
Author Organization [employer] Address 75 [facility] 7t [place] [address] Care Team Providers Care Carpet Yarn Winder Operator Name Role Phone Leta Soto MD Primary Care Pro vider Yajaira Antonio Unavailable Encounter Details Date Type Department Care Team (Late st Contact Info) Description 08/08/2025 Orders Only [facility] [address] [place] [address] Leta Soto MD [address] [place] [address] Urinary tract infection without hematuria, site unspecified (Primary Dx) Social History Tobacco Use Types [...] Progress Notes * Leta Dick MD - 08/08/2025 12:06 PM EST Received a call over the weekend given covering security controls assessor Pts was at [facility] today but RN did not feel comfortable letting pt be at facility given he was toldneed ATB for urinary infection at hospital on 08/01/2025 Sample obtained don 08/01/2025 for dizziness ? -Ucx Enterococcus faecalis , pt was prescribed macrobid for 7 days but seems pt never picked up medat [facility] pharmacy Pt is poor historian but denies picking up med Pt denies at this time having any urinary symptoms (denies dysuria,frequency,urgency,fever ),statesfelling well -ucx Enterococcus faecalis Quant 10,000 to 50,000 cfu/mL Lactobacillus species Quant 10,000 to 50,000 cfu/mL [facility] N/A Susceptibility not routinely performed on this isolate. Enterococcus faecalis: Ampicillin <=2(S) Enterococcus faecalis: Levofloxacin 0.5(S) Enterococcus faecalis: Nitrofurantoin <=16(S) Enterococcus faecalis: Tetracycline >=16(R) Enterococcus faecalis: Vancomycin 1(S) -pt has hard time accessing care and ATB was sent to [facility] pharmacy and not other pharmacy [place] the [facility] because pt told ED physician he could not go to other pharmacies . Per V care staff they spoke w emergency contact and were told they could not berry picker med at another pharmacy -pt is completely asymptomatic ,does not have urinary catheter so possible contamination/colonization w no symptoms despite culture was + from 7 days ago ,at the time also no symptoms -pt agreed to repeat UA w reflex to culture on Sunday08/10/2025 , only if pyuria ,nitrates in UA suggesting urinary infection and again + culture will rec ATB -V care RN request Urinary result to be faxed to them when ready Fax # [phone] documented in this encounter Plan of Treatment Upcoming Encounters Date Type Department Care Team (Late st Contact Info) Description 08/21/2025 10:00 AM EST Clinical Support [facility] [address] [place] [address] [phone] 09/24/2025 10:15 AM EST Office Visit [facility] [address] [place] [address] Leta Soto MD [address] [place] [phone] documented as of this encounter Goals Goal Patient Goal Type Associated Problems Recent Progress Patient-Stated? Author Blood Pressure < 140/90 Blood Pressure 170/50(2024 11:06 AM EST) No Loan Talbot Record your blood pressure once per day Blood Pressure No Loan Talbot documented as of this encounter Procedures Procedure Name Priority Date/Time Associated Diagnosis Comments URINALYSIS, COMPLETE, WITH REFLEX TO CULTURE Routine 08/10/2025 11:17 AM EST Urinary tract infection without hematuria, site unspecified documented in this encounter Results * Urinalysis, Complete, with Reflex to Culture (08/10/2025 11:17 AM EST) Color Urine Dark Yellow [facility] Appearance Urine Clear [facility] PH 6.5 5.0 - 9.0 [facility] Glucose Urine UA Negative Negative mg/dL [facility] Urine Blood Negative Negative [facility] Specific [place] - Urine 1.015 1.005 - 1.025 [facility] Urine Protein Negative Neg-Trace mg/dL [facility] Urine Ketones Trace Negative mg/dL [facility] Nitrite Urine Negative Negative [facility] Leukocyte Esterase Urine Negative Negative [facility] RBC Urine 0-2 0 - 2 /HPF [facility] Urine WBC 0-5 0 - 5 /HPF [facility] Urine Squamous Epithelial Cell 0-2 0 - 2 /HPF [facility] Urine Bacteria None Seen None Seen [facility] Hyaline Casts, Urine 0-2 0 - 2 /LPF [facility] Urine 08/10/2025 11:1 7 AM EST 08/10/2025 1:00 PM EST Narrative [facility] - 08/10/2025 1:33 PM EST Urine, Clean Catch us Leta Dick MD LAB URINE ORDERAB LES Final Result [facility] [address] [place] [address] [phone] documented in this encounter Visit Diagnoses Diagnosis Urinary tract infection without hematuria, site unspecified- Primary documented in this encounter Additional Health Concerns Assessment Noted Time PHQ-9 Depression Total Score: 0 03/12/20 25 10:25 AM EDT documented as of this encounter Care Teams Carpet Yarn Winder Operator Relationship Specialty Start Date End Date Leta Soto MD [address] [place] [address] PCP - General Internal Medicine 04/11/23 Yajaira Antonio [address]rd [place] [address] Gastroenterology 09/04/24 [facility] 01/28/25 documented as of this encounter
--- OUTSIDE RECORDS SUMMARY | 2025-08-10 14:35 | XMS_ITS | Encounter Summary ---
Author Organization [employer] Address [address] [facility] 7t [place] [address] Care Team Providers Care Financial Wellness Coach Name Role Phone Leta Soto MD Primary Care Pro vider PacoYajaira Unavailable Reason for Visit * Reason Onset Date Comments Hospital Follow-up 07/16/2025 Encounter Details Date Type Department Care Team (Late st Contact Info) Description 07/16/2025 Telephone [facility] [address] [place] [address] Leta Soto MD 230 [place], [place] [phone] Hospital Follow-up Social History Tobacco Use Types [...] pt requesting a HDF appt. Hospital: [facility] Date of admission: 07/12/25 Discharge date: 07/15/25 Diagnosed: anemia , upper GI bleed *Send message to [place] Clinical Care Coordinators documented in this encounter Plan of Treatment Upcoming Encounters Date Type Department Care Team (Late st Contact Info) Description 08/21/2025 10:00 AM EST Clinical Support [facility] [address] [place] [address] [phone] 09/24/2025 10:15 AM EST Office Visit [facility] [address] [place] [address] Leta Soto MD [address] [place] [address] [phone] documented as of this encounter Goals Goal [...] documented as of this encounter Care Teams Financial Wellness Coach Relationship Specialty Start Date End Date Leta Soto MD [address] [place] [phone] PCP - General Internal Medicine 04/11/23 Yajaira Antonio [address] [place] [address] 3rd [place] [address] Gastroenterology 09/04/[address] [facility] 01/28/25 documented as of this encounter
--- OUTSIDE RECORDS SUMMARY | 2025-08-10 14:35 | XMS_ITS | Encounter Summary ---
Author Organization [employer] Address 75 [facility] 7t [place] [address] Care Team Providers Care Owner/Photographer Name Role Phone Leta Soto MD Primary Care Pro vider Yajaira Antonio Unavailable Encounter Details Date Type Department Care Team (Late st Contact Info) Description 11/11/2024 Telephone [facility] [address] [place] [address] Leta Soto MD [address] [place] [address] Social History Tobacco Use Types Packs/Day Years [...] Miscellaneous Notes * Telephone Encounter - Phillip Dnoahue - 11/11/2024 12:27 PM EST Tc from amrita stiles community case manager requesting the status on pt documented in this encounter Plan of Treatment Upcoming Encounters Date Type Department Care Team (Late st Contact Info) Description 08/21/2025 10:00 AM EST Clinical Support [facility] [address] [place] [address] 09/24/2025 10:15 AM EST Office Visit [facility] [address] [place] [address] Leta Soto MD [address] [place] [address] documented as of this encounter Goals Goal Patient Goal Type Associated Problems Recent Progress Patient-Stated? Author Blood Pressure < 140/90 Blood Pressure 170/50(2024 11:06 AM EST) No Loan Talbot Record your blood pressure once per day Blood Pressure No Cardaropoli, C[place] documented as of this encounter Visit Diagnoses Not on filedocumented in this encounter Additional Health Concerns Assessment Noted Time PHQ-9 Depression Total Score: 18 023 11:23 AM EDT documented as of this encounter Care Teams Owner/Photographer Relationship Specialty Start Date End Date Leta Soto MD [address] [place] [phone] PCP - General Internal Medicine 04/11/23 Yajaira Antonio [address] [place] [address] 3rd [place] [address] Gastroenterology 09/04/24 [facility] 01/28/25 documented as of this encounter
--- OUTSIDE RECORDS SUMMARY | 2025-08-10 14:35 | XMS_ITS | Encounter Summary ---
Author Organization [employer] Address 75 [facility] 7t [place] [address] Care Team Providers Care Director Of Student Financial Aid Name Role Phone Leta Soto MD Primary Care Pro vider Yajaira Antonio Unavailable Encounter Details Date Type Department Care Team (Latest Contact Info) Description 08/05/2025 Travel Social History Tobacco Use Types Packs/Day [...] Description 08/21/2025 10:00 AM EST Clinical Support [facility] [address] [place] [phone] 09/24/2025 10:15 AM EST Office Visit [address] [address] Leta Soto MD [address] [place] [phone] documented as of this encounter Goals Goal [...] of this encounter Care Teams Director Of Student Financial Aid Relationship Specialty Start Date End Date Leta Soto MD [address] [place] [address] PCP - General Internal Medicine 04/11/23 Yajaira Antonio [address]rd [place] [address] Gastroenterology 09/04/24 [facility] 01/28/25 documented as of this encounter
--- OUTSIDE RECORDS SUMMARY | 2025-08-10 14:35 | XMS_ITS ---
Author Organization [employer] Address 75 [facility] 7t [place] [address] Care Team Providers Care International Organizer Name Role Phone Leta Soto MD Primary [...] Phone Stanley Mckeon RN(Responsible Staff) Registered Nurse [phone] Continued Care and Services Coordination
--- OUTSIDE RECORDS SUMMARY | 2025-08-10 14:35 | XMS_ITS | Encounter Summary ---
Author Organization [employer] Address [address] [facility] 7 [place] [address] Care Team Providers Care Control Area Operator Name Role Phone Leta Soto MD Primary Care Pro vider Paco, Yajaira Unavailable Reason for Visit * Reason Comments Care Coordination CM/CHW outreach Encounter Details Date Type Department Care Team (Latest Contact Info) Description 08/05/2025 Patient Outreach [facility] 230 [place] [address] Leta Soto MD 230 [place] [address] Care Coordination (CM/CHW outreach) Social History Tobacco Use Types Packs/Day Years [...] encounter Progress Notes * Chata Puente - 08/05/2025 2:20 PM EST CHW Chata Puente contacted Alayna (patient coordinator). Meeting scheduled for 08/18/25 at 1:30 PM (in-person). CHW will introduce care management services and discuss enrollment for better support with medical needs and resources. CHW will follow up with patient to remind them of the appointment. documented in this encounter Plan of Treatment Upcoming Encounters Date Type Department Care Team (Late st Contact Info) Description 08/21/2025 10:00 AM EST Clinical Support [facility] [address] [place] [phone] 09/24/2025 10:15 AM EST Office Visit [facility] [address] [place] [address] Leta Soto MD [address] [place] [phone] documented as of this encounter Goals [...] documented as of this encounter Care Teams Control Area Operator Relationship Specialty Start Date End Date Leta Soto MD [address] [place] [address] PCP - General Internal Medicine 04/11/23 Yajaira Antonio [address] [place] [address] Drive 3rd [place] [address] Gastroenterology 09/04/24 [facility] 01/28/25 documented as of this encounter
--- OUTSIDE RECORDS SUMMARY | 2025-08-10 14:35 | XMS_ITS | Clinical Summary ---
Author Organization [employer] Address [address] [facility] [address] [place] [address] Care Team Providers Care Automobile Technician Name Role Phone Leta Soto MD [...] wheezing. 18 g 2 06/25/20 23 Active Blood Pressure kitIndications: Hypertension, unspecified type [...] (three) times a week. 12 tablet 4 07/31/20 25 026 Active lactulose (Chronulac) 10 GM/15ML solution Take 45 mL (30 g) by mouth 3 times daily. 4.05 mL 5 5 12:25 PM EST 08/05/20 25 Active amLODIPine (Norvasc) 5 MG tabletIndicatio ns:Essential hypertension Take 1 tablet (5 mg) by mouth Once per day. 30 tablet 11 08/05/20 25 026 Active omeprazole (PriLOSEC) [address] capsule Take 1 capsule (40 mg) by mouth before breakfast. Do not crush or chew. 90 capsule 5 4:40 PM EST 08/05/20 026 Active amLODIPine (Norvasc) 5 MG tabletIndicatio ns:Essential hypertension Take 1 tablet (5 mg) by mouth Once per day. 30 tablet 11 11/25/19 025 Discontinued(Re order (will not trigger notification to Pharmacy)) ferrous gluconate (Fergon) 324 (38 Fe) MG tablet Take 1 tablet (324 mg) by mouth 3 (three) times a week. 12 tablet 4 03/16/20 025 Discontinued(Re order (will not trigger notification to Pharmacy)) lactulose (Chronulac) 10 GM/15ML solution TAKE 45 ML BY MOUTH THREE TIMES DAILY DIRECTED 1350 mL 3 04/28/20 025 Discontinued(Re order (will not trigger notification to Pharmacy)) diphenhydrAMINE (BENADryl) 12.5 MG/5ML elixirIndicatio ns:Oral ulcer Magic Mouth Wash: Mix equal amount (60mL) of Benadryl + Maalox + Viscous Lidocaine (total 180mL). Use 5mL PO swish and spit 4x/day before meals and bedtime PRN. 60 mL 1 05/30/20 25 025 Discontinued(Ot her) aluminum-magnes ium hydroxide-simet hicone (Maalox) 200-200-20 MG/5ML suspensionIndic ations:Oral ulcer Magic Mouth Wash: Mix equal amount (60mL) of Benadryl + Maalox + Viscous Lidocaine (total 180mL). Use 5mL PO swish and spit 4x/day before meals and bedtime PRN. 60 mL 1 05/30/20 25 025 Discontinued(Ot her) lidocaine (Xylocaine) 2 % solutionIndicat ions:Oral ulcer Magic Mouth Wash: Mix equal amount (60mL) of Benadryl + Maalox + Viscous Lidocaine (total 180mL). Use 5mL PO swish and spit 4x/day before meals and bedtime PRN. 60 mL 1 05/30/20 25 025 Discontinued(Ot her) Active Problems Problem [...] once established b. Patient may return to [facility] for medical needs until a PCP [...] Encounters Date Type Department Care Team Description 08/10/2025 Telephone [facility] [place] [address] Leta Soto MD 08/10/2025 Orders Only [address] [place] [address] Leta Soto MD 08/10/2025 Patient Outreach [address] [address] Leta Soto MD 08/08/2025 Orders Only [address] [address] Leta Soto MD Urinary tract infection without hematuria, site unspecified (Primary Dx) 08/05/2025 10:15 AM EST Office Visit [address] [address] Leta Soto MD Cognitive impairment (Primary Dx); Essential hypertension; Anemia, unspecified type; Severe thrombocytopenia (CMS/HCC); Obesity due to excess calories without serious comorbidity, unspecified class; Other cirrhosis of liver (HCC); Healthcare maintenance; Hospital discharge follow-up; Homeless; Tobacco use 08/05/2025 Patient Outreach [address] [address] Leta Soto MD Care Coordination (CM/CHW outreach) 08/05/[address] [address] Yamel Khanna RN VNA Referral 08/05/2025 Travel 08/04/[address] [address] Leta Soto MD chart prep 08/01/2025 Orders Only GENERIC EXTERNAL DATA DEPARTMENT Provider, Generic External Data 07/31/[address] [address] Leta Soto MD 07/31/[address] [address] Leta Soto MD 07/31/2025 Refill [facility] [address] [place] [phone] Victoriano Beyer MD Oral ulcer 07/29/[address] [address] Leta Soto MD Medication Question 07/29/2025 Refill [facility] [address] [address] Victoriano Beyer MD Oral ulcer 07/20/2025 Orders Only GENERIC EXTERNAL DATA DEPARTMENT Provider, Generic External Data 07/16/2025 Patient Outreach [address] [address] Leta Soto MD Transition Of Care (Tcm) (HDF scheduled and SDOH screening completed on 03/12/25) 07/16/[address] [address] Leta Soto MD Hospital Follow-up 07/13/2025 Orders Only GENERIC EXTERNAL DATA DEPARTMENT Provider, Generic External Data 07/12/2025 Orders Only GENERIC EXTERNAL DATA DEPARTMENT Provider, Generic External Data 07/09/[address] [address] Leta Soto MD Letter for School/Work 07/02/2025 Orders Only GENERIC EXTERNAL DATA DEPARTMENT Provider, Generic External Data 07/01/2025 Orders Only GENERIC EXTERNAL DATA DEPARTMENT Provider, Generic External Data 07/01/[address] [address] Leta Soto MD 06/25/2025 Orders Only [facility] External Provider, [facility] 06/25/[address] [address] Leta Soto MD FYI 06/12/[address] [address] Leta Soto MD gsssi 06/11/2025 Telephone [facility] [address] [place] [phone] Yamel Khanna RN 06/09/2025 9:45 AM EDT Office Visit [facility] [address] [place] [phone] Leta Soto MD Dizziness (Primary Dx); Essential hypertension; Other cirrhosis of liver (CMS/HCC); Hepatic encephalopathy (CMS/HCC); Healthcare maintenance 06/09/2025 Orders Only GENERIC EXTERNAL DATA DEPARTMENT Provider, Generic External Data 06/09/2025 Telephone [facility] [address] [place] [phone] Leta Soto MD ER Follow-up 06/09/2025 Travel 06/08/2025 Telephone [facility] [address] [place] [address] Leta Soto MD chart prep 06/04/2025 Orders Only GENERIC EXTERNAL DATA DEPARTMENT Provider, Generic External Data 05/30/2025 10:40 AM EDT Office Visit [facility] [address] [place] [phone] Victoriano Beyer MD Oral ulcer (Primary Dx) 05/30/2025 Travel 05/22/2025 Orders Only [facility] External Provider, [facility] 05/21/2025 Orders Only GENERIC EXTERNAL DATA [...] Mass Index 30.32 08/05/2025 10:36 AM EST Plan of Treatment Upcoming Encounters Date Type Department Care Team (Late st Contact Info) Description 08/21/2025 10:00 AM EST Clinical Support [facility] [address] [place] [phone] 09/24/2025 10:15 AM EST Office Visit [facility] [address] [place] [phone] Leta Soto MD [address] [place] [address] [phone] Health Maintenance Due Date Last Done Comments [...] 03/12/2026 03/12/2025, 03/12/2025 SDOH Screening 03/12/2026 03/12/2025 Disability Screening 06/09/2026 06/09/2025 Tobacco Screening 08/05/2026 08/05/2025 Lipid Panel 04/06/2028 04/06/2023 DTaP/Tdap/Td Vaccines (2 [...] Associated Diagnosis Comments COMPREHENSIVE METABOLIC PANEL Routine 08/10/2025 11:17 AM EST CBC WITH AUTO DIFFERENTIAL Routine 08/10/2025 11:17 AM EST URINALYSIS, COMPLETE, WITH REFLEX TO CULTURE Routine 08/10/2025 11:17 AM EST Urinary tract infection without hematuria, site unspecified CULTURE, URINE, ROUTINE Routine 08/01/2025 1:21 PM EST COMPREHENSIVE METABOLIC PANEL Routine 07/20/2025 11:56 AM [...] Recently Relevant to Health Maintenance Results * Urinalysis, Complete, with Reflex to Culture (08/10/2025 11:17 AM EST) Only the most recent of2 resultswithin the time period is included. Color Urine Dark Yellow [facility] Appearance Urine Clear [facility] PH 6.5 5.0 - 9.0 [facility] Glucose Urine UA Negative Negative mg/dL [facility] Urine Blood Negative Negative [facility] Specific [place] - Urine 1.015 1.005 - 1.025 [facility] Urine Protein Negative Neg-Trace mg/dL [facility] Urine Ketones Trace Negative mg/dL [facility] Nitrite Urine Negative Negative [facility] Leukocyte Esterase Urine Negative Negative [facility] RBC Urine 0-2 0 - 2 /HPF [facility] Urine WBC 0-5 0 - 5 /HPF [facility] Urine Squamous Epithelial Cell 0-2 0 - 2 /HPF [facility] Urine Bacteria None Seen None Seen [facility] Hyaline Casts, Urine 0-2 0 - 2 /LPF [facility] Urine 08/10/2025 11:1 7 AM EST 08/10/2025 1:00 PM EST Narrative [facility] - 08/10/2025 1:33 PM EST Urine, Clean Catch Leta Dick MD LAB URINE ORDERAB LES Final Result [facility] [address] [place] [address] [phone] * (ABNORMAL) CBC auto differential (08/10/2025 11:17 AM EST) Only the most recent of7 resultswithin the time period is included. White Blood Count 2.1(L) 4.8 - 10.8 X10*3/uL [facility] Red Blood Count 3.96(L) 4.60 - 5.80 X10*6/uL [facility] Hemoglobin 9.7(L) 14.0 - 18.0 g/dl [facility] Hematocrit 31.8(L) 42.0 - 52.0 % [facility] Mean Corpuscular Volume 80.3 80.0 - 98.0 fL [facility] Mean Corpuscular Hemoglobin 24.5(L) 27.0 - 33.0 pg [facility] Mean Corpuscular HGB Conc 30.5(L) 31.0 - 36.0 g/dl [facility] Red Cell Distribution Width 17.0(H) 11.0 - 16.0 % [facility] Platelet Count 24(L) 160 - 400 X10*3/uL [facility] Neutrophils Percent Auto 62.0 45 - 73 % [facility] Imm Gran Pct Auto 0.5(H) 0.0 - 0.4 % [facility] Lymphocytes Percent Auto 26.2 20 - 40 % [facility] Monocytes Percent Auto 8.9 2 - 11 % [facility] Eosinophils Percent Auto 1.9 0 - 4 % [facility] Basophils Percent Auto 0.5 0 - 2 % [facility] NRBC Pct Auto 0.0 0.0 - 0.2 /100WBC [facility] Neutrophils Absolute Auto 1.3(L) 2.0 - 8.3 x10*3/uL [facility] Imm Gran Abs Auto 0.01 0.00 - 0.03 X10*3/uL [facility] Lymphocytes Absolute Auto 0.6(L) 1.2 - 4.9 X10*3/uL [facility] Monocytes Absolute Auto 0.2 0.1 - 1.2 X10*3/uL [facility] Eosinophils Absolute Auto 0.0 0.0 - 0.4 X10*3/uL [facility] Basophils Absolute Auto 0.0 0.0 - 0.2 X10*3/uL [facility] NRBC Abs Auto 0.000 0.0 - 0.012 X10*3/uL [facility] 08/10/2025 11:1 7 AM EST 08/10/2025 1:06 PM EST us Generic External Data Provider LAB BLOOD ORDERAB LES Edited Result - Final [facility] [address] [place] [address] [phone] * (ABNORMAL) Comprehensive Metabolic Panel (08/10/2025 11:17 AM EST) Only the most recent of5 resultswithin the time period is included. Sodium 143 135 - 145 mmol/L [facility] Potassium 4.3 3.3 - 5.1 mmol/L [facility] Chloride 114(H) 96 - 108 mmol/L [facility] Carbon Dioxide 24 22 - 29 mmol/L [facility] Anion Gap 9(L) 12 - 20 [facility] Urea Nitrogen (BUN) 11 9 - 16 mg/dL [facility] Creatinine, Serum 0.85 0.5 - 1.4 mg/dL [facility] Estimated Glomerular Filt Rate >60 [facility] Comment:Chronic Kidney Disea se: Estimated GFR < 60 mL/min/[id number] Kidney Disease: Estimated GFR < 15 mL/min/1.73m2 Glucose 90 60 - 115 mg/dL [facility] Calcium 8.5 8.4 - 10.2 mg/dL [facility] Bilirubin, Total 1.5(H) 0.0 - 1.0 mg/dL [facility] Aspartate Amino Transferase 46(H) 5 - 37 U/L [facility] Alanine Aminotransferase 33 0 - 40 U/L [facility] Total Protein 7.1 6.5 - 8.0 g/dL [facility] Albumin Level 3.5 3.5 - 5.0 g/dL [facility] Alkaline Phosphatase 145(H) 39 - 117 U/L [facility] 08/10/2025 11:1 7 AM EST 08/10/2025 1:06 PM EST Generic External Data Provider LAB BLOOD ORDERAB LES Final Result Performing Organization Address [facility] Phone Number [facility] [address] [place] [phone] * Culture, Urine, Routine (08/01/2025 1:21 PM EST) Urine Urine specimen obtained by clean catch procedure / Unknown 08/01/2025 1:21 PM EST 08/01/2025 6:57 PM EST Comment:[facility] Narrative [facility] - 08/04/2025 8:04 AM EST Enterococcus faecalis Quant 10,000 to 50,000 cfu/mL Lactobacillus species Quant 10,000 to 50,000 cfu/mL Susc N/A Susceptibility not routinely performed on this isolate. Enterococcus faecalis: Ampicillin <=2(S) Enterococcus faecalis: Levofloxacin 0.5(S) Enterococcus faecalis: Nitrofurantoin <=16(S) Enterococcus faecalis: Tetracycline >=16(R) Enterococcus faecalis: Vancomycin 1(S) Specimen Source: Urine clean catch Generic External Data Provider LAB MICROBIOLOGY - GENERAL ORDERABLES Final Result Performing Organization Address [facility] Co de Phone Number [facility] [address] [place] [phone] * (ABNORMAL) Prothrombin Time-INR (07/13/2025 12:47 AM EST) Only the most recent of2 resultswithin the time period is included. Prothrombin Time 17.2(H) 10.9 - 12.4 SEC [facility] INTERNATIONAL NORM RATIO 1.5(H) 0.9 - 1.1 [facility] [...] ORDERAB LES Final Result Performing Organization Address City/State/[facility] Co de Phone Number [facility] [address] [place] [address] [phone] * CT Cervical Spine w/o Contrast (07/13/2025 12:12 AM EST) Anatomical Region Laterality Modality Spine, C-spine Computed Tomogra phy 07/13/2025 12:1 2 AM EST Narrative 07/13/2025 12:13 AM EST [address] [address] [address] Scan Report Signed Patient: Adelso Beebe MR#: [id number] : 1960 Acct:[id number] Age/Sex: 64 / M ADM Date: 07/12/25 Loc: HO.ED Attending Dr: Ordering Physician: Stefani Rocha DO Date of Service: 07/12/25 Procedure(s): CT cervical spine wo IV con Accession Number(s): [id number] cc: Stefani Rocha DO; Leta Soto MD Report Number: [id number]: Total DLP = 472.00 mGy-cm Reason for [...] MD in OV> 07/13/2512 DD/ TD/TT: 07/13/2511 Bodily Injury Adjuster: Procedure Note Leelater, Image - 07/13/[address] [place] [address] [address] Scan Report Signed Patient: Adelso Beebe#: [id number] : 1960cct:[id number] Age/Sex: 64 / MADM Date: 07/12/25 Loc: HO.ED Attending Dr: Ordering Physician: Stefani Rocha DO Date of Service: 07/12/25 Procedure(s): CT cervical spine wo IV con Accession Number(s): [id number] cc: Stefani Rocha DO; Leta Soto MD Report Number: [id number]: Total DLP = 472.00 mGy-cm Reason for [...] MD in OV> 07/13/2512 DD/ TD/TT: 07/13/2511 Bodily Injury Adjuster: us [facility] External Provider IMG CT PROCEDURES Edited Result - Final * CT Chest w/o Contrast (07/13/2025 12:10 AM EST) Anatomical Region Laterality Modality Body, Chest Computed Tomogra phy 07/13/2025 12:1 0 AM EST Narrative 07/13/2025 12:11 AM EST [address] [address] [address] Scan Report Signed Patient: Adelso Beebe MR#: [id number] : 1960 Acct:[id number] Age/Sex: 64 / M ADM Date: 07/12/25 Loc: HO.ED Attending Dr: Ordering Physician: Stefani Rocha DO Date of Service: 07/12/25 Procedure(s): CT chest wo IV con Accession Number(s): [id number] cc: Stefani Rocha DO; Leta Soto MD Report Number: [id number]: Total DLP = 517.00 mGy-cm Reason for [...] MD in OV> 07/13/2510 DD/ TD/TT: 07/13/259 Bodily Injury Adjuster: Procedure Note Donotuseinterpreter, Image - 07/13/[address] [address] [address] Scan Report Signed Patient: Adelso BeebeMR#: [id number] : 1960cct:[id number] Age/Sex: 64 / MADM Date: 07/12/25 Loc: HO.ED Attending Dr: Ordering Physician: Stefani Rocha DO Date of Service: 07/12/25 Procedure(s): CT chest wo IV con Accession Number(s): [id number] cc: Stefani Rocha DO; Leta Soto MD Report Number: [id number]: Total DLP = 517.00 mGy-cm Reason for [...] MD in OV> 07/13/2510 DD/ TD/TT: 07/13/259 Bodily Injury Adjuster: [facility] External Provider IMG CT PROCEDURES Edited Result - Final * CT Abdomen Pelvis w/o Contrast (07/13/2025 12:09 AM EST) Anatomical Region Laterality Modality Body, Pelvis, Abdomen Computed T omography 07/13/2025 12:0 9 AM EST Narrative 07/13/2025 12:10 AM EST [place] [address] CT Scan Report Signed Patient: Adelso Beebe MR#: [id number] : 1960 Acct:[id number] Age/Sex: 64 / M ADM Date: 07/12/25 Loc: .ED Attending Dr: Ordering Physician: Stefani Rocha DO Date of Service: 07/12/25 Procedure(s): CT abdomen pelvis wo IV con Accession Number(s): [id number] cc: Stefani Rocha DO; Leta Soto MD Report Number: [id number]: Total DLP = 1405.00 mGy-cm Reason for [...] MD in OV> 07/13/259 DD/ TD/TT: 07/13/258 Bodily Injury Adjuster: Procedure Note Donotuseinterpreter, Image - 07/13/[address] [place] [address] [address] Scan Report Signed Patient: Adelso BeebeMR#: [id number] : 1960cct:[id number] Age/Sex: 64 / MADM Date: 07/12/25 Loc: HO.ED Attending Dr: Ordering Physician: Stefani Rocha DO Date of Service: 07/12/25 Procedure(s): CT abdomen pelvis wo IV con Accession Number(s): [id number] cc: Stefani Rocha DO; Leta Soto MD Report Number: [id number]: Total DLP = 1405.00 mGy-cm Reason for [...] in OV> 07/13/25 0010 DD/ TD/TT: 07/13/258 Bodily Injury Adjuster: [facility] External Provider IMG CT PROCEDURES Edited Result - Final * CT Head w/o Contrast (07/13/2025 12:02 AM EST) Only the most recent of2 resultswithin the time period is included. Anatomical Region Laterality Modality Head, Neck Computed Tomogra phy 07/13/2025 12:0 2 AM EST Narrative 07/13/2025 12:05 AM EST [place] [address] CT Scan Report Signed Patient: Adelso Beebe MR#: [id number] : 1960 Acct:[id number] Age/Sex: 64 / M ADM Date: 07/12/25 Loc: .ED Attending Dr: Ordering Physician: Stefani Rocha DO Date of Service: 07/12/25 Procedure(s): CT head/brain wo IV con Accession Number(s): [id number] cc: Stefani Rocha DO; Leta Soto MD Report Number: [id number]: Total DLP = 699.00 mGy-cm Reason for [...] 07/13/25 0003 DD/ 0002 TD/TT: 07/13/25 0002 Bodily Injury Adjuster: Procedure Note Donotuseinterpreter, Image - 07/13/[address] [address] [address] Scan Report Signed Patient: Adelso BeebeMR#: [id number] : 1960cct:[id number] Age/Sex: 64 / MADM Date: 07/12/25 Loc: HO.ED Attending Dr: Ordering Physician: Stefani Rocha DO Date of Service: 07/12/25 Procedure(s): CT head/brain wo IV con Accession Number(s): [id number] cc: Stefani Rocha DO; Leta Soto MD Report Number: [id number]: Total DLP = 699.00 mGy-cm Reason for [...] 07/13/25 0003 DD/ 0002 TD/TT: 07/13/25 0002 Bodily Injury Adjuster: [facility] External Provider IMG CT PROCEDURES Edited Result - Final * High Sensitivity Troponin I (07/12/2025 10:42 PM EST) Only the most recent of7 resultswithin the time period is included. TROPONIN I HIGH SENSITIVITY 18.9 <3.5 - 35.0 ng/L [facility] Comment:The Clifford high sens itivity Troponin-I results should beused in conjunction with other diagnostic information suchas ECG, clinical observations and information, and patientsymptoms to aid in the diagnosis of [place]. 07/12/2025 10:4 2 PM EST 07/12/2025 10:47 PM EST us Generic External Data Provider LAB BLOOD ORDERAB LES Final Result Performing Organization Address City/[facility]/ZIP Co de Phone Number [facility] [address] [place] [phone] * NT-proBNP (07/12/2025 10:42 PM EST) NT-proBNP 115.0 <300 pg/mL [facility] Comment:Reference Range:Age Group (years) NT-proBNP (pg/ml) InterpretationAll <300 Negative: HF unlikelyFor patients presenting to the ED with clinical suspicion ofnew onset or worsening HF, see below:18 to <50 >299.9 to <450.0 Grayzone: [id number] to 75 >299.9 to <900.0 other causes of>75 >299.9 to <1800.0 NT-proBNP jirvxorin95 to <50 >449.9 Positive: HF [id number] >899.9>75 >1799.9Note: Elevated NT-proBNP levels should be interpreted inthe context of other clinical information. 07/12/2025 10:4 2 PM EST 07/12/2025 10:47 PM EST us Generic External Data Provider LAB BLOOD ORDERAB LES Final Result Performing Organization Address [facility] Co de Phone Number [facility] [address] [place] [phone] * Red blood count (07/12/2025 10:42 PM EST) Red Blood Cells: [id number] ON RC TRANSFUSED 07/13/25 0012 [facility] 07/12/2025 10:4 2 PM EST 07/12/2025 10:47 PM EST Generic External Data Provider LAB BLOOD ORDERAB LES Final Result Performing Organization Address City/[facility] Co de Phone Number [facility] [address] [place] [phone] * Type and screen (07/12/2025 10:42 PM EST) Only the most recent of2 resultswithin the time period is included. Blood Type ON [facility] Antibody Screen NEGATIVE [facility] 07/12/2025 10:4 2 PM EST 07/12/2025 10:47 PM EST Narrative [facility] - 07/13/2025 12:39 AM EST Results at Issue Units as of 07/13/25 0014 ...Test View Group: Most Recent HGB HCT Results LABORATORYDate Time Test Result Flag Normal Range07/12/252009 HGB 6.8 *L 14.0-18.0 g/dlback by Tha 07/12/25 at 2115 by HAILEY.07/12/252009 HCT 22.8 L 42.0-52.0 % Yes Generic External Data Provider LAB BLOOD BANK TE ST ORDERABLES Final Result Performing Organization Address [facility] Co de Phone Number [facility] [address] [place] [phone] * (ABNORMAL) Ammonia, Plasma (07/12/2025 10:42 PM EST) Only the most recent of3 resultswithin the time period is included. Ammonia (P) 78(H) 13 - 55 umol/L [facility] 07/12/2025 10:4 2 PM EST 07/12/2025 10:47 PM EST Generic External Data Provider LAB BLOOD ORDERAB LES Final Result Performing Organization Address [facility] Co de Phone Number [facility] [address] [place] [phone] * Urinalysis w/reflex microscopic (07/12/2025 9:01 PM EST) Only the most recent of4 resultswithin the time period is included. Color Urine Yellow [facility] Appearance Urine Clear [facility] PH 6.0 5.0 - 9.0 [facility] Glucose Urine UA Negative Negative mg/dL [facility] Urine Blood Negative Negative [facility] Specific [place] - Urine 1.015 1.005 - 1.025 [facility] Urine Protein Negative Neg-Trace mg/dL [facility] Urine Ketones Negative Negative mg/dL [facility] Nitrite Urine Negative Negative [facility] Leukocyte Esterase Urine Negative Negative [facility] 07/12/2025 9:01 PM EST 07/12/2025 9:06 PM EST Narrative [facility] - 07/12/2025 9:19 PM EST Urine, Clean Catch us Generic External Data Provider LAB URINE ORDERAB LES Final Result Performing Organization Address [facility] Co de Phone Number [facility] [address] [place] [phone] * CTA Head Stroke w/ and w/o Contrast (07/02/2025 12:34 AM EDT) Anatomical Region Laterality Modality Computed Tomogra phy 07/02/2025 12:3 4 AM EDT Narrative 07/02/2025 12:35 AM EDT [address] [address] [address] Scan Report Signed Patient: Adelso Beebe MR#: [id number] : 1960 Acct:[id number] Age/Sex: 64 / M ADM Date: 07/01/25 Loc: .ED Attending Dr: Ordering Physician: Bhavana Christensen Date of Service: 07/01/25 Procedure(s): CT angio head neck STROKE Accession Number(s): [id number] cc: Bhavana Christensen; [facility] Report Number: [id number]: Total DLP = 681.00 mGy-cm Reason for [...] Likewise in the shower solving in skin DINING SERVICE INSPECTOR: Persistent origin of the right DINING SERVICE INSPECTOR. Moderate focal narrowing in the distal right [...] MD in OV> 07/02/2534 DD/ TD/TT: 07/02/2533 Bodily Injury Adjuster: Procedure Note Donotuseinterpreter, Image - 07/02/[address] [address] [address] Scan Report Signed Patient: Godfrey JeanAdelso maldonadoMR#: [id number] : 2Acct:[id number] Age/Sex: 64 / MADM Date: 07/01/25 Loc: HO.ED Attending Dr: Ordering Physician: Bhavana Christensen Date of Service: 07/01/25 Procedure(s): CT angio head neck STROKE Accession Number(s): [id number] cc: Bhavana Christensen; [facility] Report Number: [id number]: Total DLP = 681.00 mGy-cm Reason for [...] Likewise in the shower solving in skin DINING SERVICE INSPECTOR: Persistent origin of the right DINING SERVICE INSPECTOR. Moderate focal narrowing in the distal right [...] MD on 07/02/2025 00:34:05 Dictated By: Laci Vasquze MD Signed By: <Electronically signed by Laci Vasquez MD in OV> 07/02/2534 DD/ TD/TT: 07/02/2533 Bodily Injury Adjuster: us [facility] External Provider IMG CT PROCEDURES Edited Result - Final * XR Chest 1 View (07/02/2025 12:22 AM EDT) Only the most recent of2 resultswithin the time period is included. Anatomical Region Laterality Modality Chest Radiographic Susy ging 07/02/2025 12:2 2 AM EDT Narrative 07/02/2025 12:24 AM EDT [address] [address] XRay Report Signed Patient: Adelso Beebe MR#: [id number] : 1960 Acct:[id number] Age/Sex: 64 / M ADM Date: 07/01/25 Loc: HO.ED Attending Dr: Ordering Physician: Bhavana Christensen Date of Service: 07/01/25 Procedure(s): XR chest 1V Accession Number(s): [id number] cc: Bhavana Christensen; [facility] Reason for Exam: cough/pain CLINICAL HISTORY: cough pain 1 view chest x-ray Comparison: Chest radiograph 06/09/2025, 05/16/2025 Findings: Central vascular congestion. No consolidation, pleural effusion or pneumothorax. Normal cardiomediastinal silhouette. No acute abnormality in the imaged osseous structures. IMPRESSION: Mild volume overload. No pleural effusion. This document has been electronically signed by: Laci Vasquez MD on 07/02/2025 00:22:02 Dictated By: aLci Vasquez MD Signed By: <Electronically signed by Laci Vasquez MD in OV> 07/02/2522 DD/ TD/TT: 07/02/2521 Bodily Injury Adjuster: Procedure Note Donotuseinterpreter, Image - 07/02/[address] [address] XRay Report Signed Patient: Adelso BeebeMR#: [id number] : 1960cct:[id number] Age/Sex: 64 / MADM Date: 07/01/25 Loc: HO.ED Attending Dr: Ordering Physician: Bhavana Christensen Date of Service: 07/01/25 Procedure(s): XR chest 1V Accession Number(s): [id number] cc: Bhavana Christensen; [facility] Reason for Exam: cough/pain CLINICAL HISTORY: [...] MD in OV> 07/02/2522 DD/ TD/TT: 07/02/2521 Bodily Injury Adjuster: [facility] External Provider IMG XR PROCEDURES Edited [...] LES Final Result [facility] [address] [place] [address] [phone] * Slide Review (07/01/2025 11:13 PM EDT) Only the most recent of4 resultswithin the time period is included. Slide Review MANUAL DIFF [facility] 07/01/2025 11:1 3 PM EDT 07/01/2025 11:21 PM EDT us Generic External Data Provider LAB BLOOD ORDERAB LES Final Result [facility] [address] [place], [place] [phone] * (ABNORMAL) Complete Blood Count Manual Diff (07/01/2025 11:13 PM EDT) White Blood Count 1.4(L) 4.8 - 10.8 X10*3/uL [facility] Red Blood Count 3.15(L) 4.60 - 5.80 X10*6/uL [facility] Hemoglobin 7.7(L) 14.0 - 18.0 g/dl [facility] Hematocrit 25.2(L) 42.0 - 52.0 % [facility] Mean Corpuscular Volume 80.0 80.0 - 98.0 fL [facility] Mean Corpuscular Hemoglobin 24.4(L) 27.0 - 33.0 pg [facility] Mean Corpuscular HGB Conc 30.6(L) 31.0 - 36.0 g/dl [facility] Red Cell Distribution Width 16.0 11.0 - 16.0 % [facility] Platelet Count 22(L) 160 - 400 X10*3/uL [facility] NRBC Pct Auto 0.0 0.0 - 0.2 /100WBC [facility] NRBC Abs Auto 0.000 0.0 - 0.012 X10*3/uL [facility] Neutrophils % Manual 70 45 - 73 % [facility] Band Neutrophils Percent 0(L) 3 - 5 % [facility] Lymphocytes Percent Manual 26 20 - 40 % [facility] Monocytes Percent Manual 4 2 - 11 % [facility] NEUTROPHILS ABSOLUTE MANUAL 1.0(L) 2.0 - 8.3 X10*3/uL [facility] LYMPHOCYTES ABSOLUTE MANUAL 0.4(L) 1.2 - 4.9 X10*3/uL [facility] MONOCYTES ABSOLUTE MANUAL 0.1 0.1 - 1.2 X10*3/uL [facility] Platelet Estimate NORMAL NORMAL [facility] Platelet Morphology Comment NORMAL [facility] RBC Morphology NOTED [facility] Tear Drop Cells 1+ (0-2) /OIF [facility] Ovalocytes 1+ (5-14) /OIF [facility] Wamsutter Cells 1+ (0-2) /OIF [facility] Schistocytes 1+ (0-2) /F [facility] 07/01/2025 11:1 3 PM EDT 07/01/2025 11:21 PM EDT Generic External Data Provider LAB BLOOD ORDERAB LES Final Result Performing Organization Address [facility]/ZIP Co de Phone Number [facility] [address] [place] [phone] * Ethanol (07/01/2025 11:13 PM EDT) Only the most recent of2 resultswithin the time period is included. Pathologist [facility] ETHANOL (MG/DL) IN SER/PLAS <10 mg/dL [facility] Comment:Serum/plasma ethanol results are to be used formedical/treatment purposes only. 07/01/2025 11:1 3 PM EDT 07/01/2025 11:21 PM EDT Generic External Data Provider LAB BLOOD ORDERAB LES Final Result Performing Organization Address [facility]/ZIP Co de Phone Number [facility] [address] [place] [phone] * SARS-CoV-2 RNA, Influenza A/B, and RSV RNA, Ql NAAT (07/01/2025 11:13 PM EDT) Only the most recent of2 resultswithin the time period is included. Pathologist [facility] Influenza A PCR NEGATIVE Negative [facility] Influenza B PCR NEGATIVE Negative [facility] Resp Syncy Virus RNA Qual PCR NEGATIVE Negative [facility] SARS COV2 PCR NEGATIVE Negative [facility] Comment:All test results mus t be [...] use by authorized laboratories.Testing performed on the [employer] GeneXpert utilizingreal-time RT-PCR.All SARS CoV2 and positive influenza A/B results arereported to [facility]. 07/01/2025 11:1 3 PM EDT 07/01/2025 11:21 PM EDT Generic External Data Provider LAB MICROBIOLOGY - GENERAL ORDERABLES Final Result Performing Organization Address [facility] Co de Phone Number [facility] [address] [place] [phone] * Magnesium (07/01/2025 11:13 PM EDT) Magnesium 2.0 1.6 - 2.6 mg/dL [facility] 07/01/2025 11:1 3 PM EDT 07/01/2025 11:21 PM EDT Generic External Data Provider LAB BLOOD ORDERAB LES Final Result Performing Organization Address [facility] Co de Phone Number [facility] [address] [place] [phone] * XR Humerus Left (06/25/2025 11:38 AM EDT) Anatomical Region Laterality Modality Upper Extremities, Humerus Left Radio graphic Imaging 06/25/2025 11:3 8 AM EDT Narrative 06/25/2025 11:48 AM EDT [address] [address] XRay Report Signed Patient: Adelso Beebe MR#: [id number] : 1960 Acct:[id number] Age/Sex: 64 / M ADM Date: 06/25/25 Loc: HO.ED Attending Dr: Ordering Physician: Cash Reno MD Date of Service: 06/25/25 Procedure(s): XR humerus LT Accession Number(s): [id number] cc: Cash Reno MD; Leta Soto MD [...] 06/25/25 1145 DD/ 1138 TD/TT: 06/25/25 1138 Bodily Injury Adjuster: Procedure Note Donotuseinterpreter, Image - 06/25/[address] [address] XRay Report Signed Patient: Adelso BeebeMR#: [id number] : 1960cct:[id number] Age/Sex: 64 / MADM Date: 06/25/25 Loc: HO.ED Attending Dr: Ordering Physician: Cash Reno MD Date of Service: 06/25/25 Procedure(s): XR humerus LT Accession Number(s): [id number] cc: Cash Reno MD; Leta Soto MD [...] 06/25/25 1145 DD/ 1138 TD/TT: 06/25/25 1138 Bodily Injury Adjuster: [facility] External Provider IMG XR PROCEDURES Edited Result - Final * POCT Glucose (06/09/2025 11:04 AM EDT) Glucose Blood, POC 107 60 - 200 mg/dL QC Media Lot # [id number] Lot# Expiration Date 036 Blood Capillary blood specimen / Unknown 06/09/2025 11:04 AM EDT Leta Dick MD POINT OF CARE ANCELMO T ENTER/EDIT ORDERABLES Final Result * Lipase (06/04/2025 2:25 PM EDT) Lipase 20 8 - 78 U/L [facility] 06/04/2025 2:25 PM EDT 06/04/2025 2:29 PM EDT Generic External Data Provider LAB BLOOD ORDERAB LES Final Result [facility] [address] [place] [phone] * Hepatic Function Panel (06/04/2025 2:25 PM EDT) Bilirubin, Direct 0.5 0.0 - 0.5 mg/dL [facility] 06/04/2025 2:25 PM EDT 06/04/2025 2:29 PM EDT us Generic External Data Provider LAB BLOOD ORDERAB LES Final Result [facility] [address] [place] [phone] * Hematoxylin and Eosin Stain (05/21/2025 2:15 PM EDT) 05/21/2025 2:15 PM EDT 05/21/2025 2:50 PM EDT Narrative [facility] - 05/25/2025 5:25 PM EDT ----- ------- Name: Adelso Beebe Age/Sex: 64/M : 1960 Unit#: [id number] Attend Dr: Yajaira Antonio MD Re05/21/25 Status: [facility] Location: [facility] Disch: ----- ------- SPEC : [id number] RECD: 05/21/25168 STATUS: OUMOU FONSECA NUM: [id number] CASSI: 05/21/25-141 [facility] DR: Yajaira Antonio MD ENTERED: 05/21/25-3698 SP TYPE: Surgical OTHR DR: Leta Soto [...] examination, 6 pieces in cassette A. ([facility]) Special studies ordered and performed: Immunostain for H. pylori; AB/PAS stains IHC S/NG Disclaimer NOTE: Unless otherwise stated, all tissue is formalin-fixed and paraffin-embedded. Some or all of the immunohistochemical tests reported herein may have been developed and their performance characteristics determined by [facility]. They have not been cleared or approved by the U.S. Food and Drug Administration (FDA). However, the FDA has determined that such clearance or approval is not necessary. This laboratory is certified under the Clinical Laboratory Improvement Amendments of 1988 (CLIA) as qualified to perform high complexity clinical laboratory testing. Copies To: Leta Soto MD [address] [place], [place] [phone] CONTINUED ON NEXT PAGE ----- ------- Name: GodfreyAdelso Asher Age/Sex: 64/M : 1960 Unit#: [id number] Attend Dr: Yajaira Antonio MD Re05/21/25 Status: [facility] Location: [facility] [place] Disch: ----- ------- SPEC : [id number] RECD: 05/21/25 STATUS: OUMOU FONSECA NUM: [id number] CASSI: 05/21/25 [facility] DR: Yajaira Antonio MD ENTERED: 05/21/25 SP TYPE: Surgical OTHR DR: Leta Soto MD ORDERED: HE Stain/3, Gross Micro L4, IHC, Special st. 2, H. pylori, AB/PAS Copies To: (Continued) Yajaira Antonio MD [facility] [address] [place] [phone] [email or web address] ----- ------- Signed (signature on file) Raul Blunt MD 05/25/25 3657 ----- ------- END OF REPORT us Generic External Data Provider LAB BLOOD ORDERAB LES Final Result [facility] [address] [place] [phone] * Pheresis Platelets (05/20/2025 10:46 AM EDT) [facility] Pheresis Platelets [id number] AP PHPLT TRANSFUSED 05/21/25 1333 [id number] AP PHPLT TRANSFUSED 05/21/25 1223 [facility] 05/20/2025 10:4 6 AM EDT 05/20/2025 11:19 AM EDT Generic External Data Provider LAB BLOOD BANK TE ST ORDERABLES Final Result Performing Organization Address [facility]/ZIP Co de Phone Number [facility] [address] [place] [phone] * (ABNORMAL) B Type Natriuretic Peptide (BNP) (05/15/2025 2:19 PM EDT) [facility] B Type Natriuretic Peptide 178(H) <100 pg/mL [facility] 05/15/2025 2:19 PM EDT 05/15/2025 2:33 PM EDT Generic External Data Provider LAB BLOOD ORDERAB LES Final Result Performing Organization Address [facility] Co de Phone Number [facility] [address] [place] [phone] * HIV-1 RNA, Quantitative, Real-Time PCR (04/21/2025 10:43 AM EDT) [facility] HIV RNA PCR Qn Copies NOT DETECTED NOT DETECTED copies/mL [facility] HIV RNA PCR Qn Log Copies NOT DETECTED NOT DETECTED [facility] Comment:Result Units: Log co pies/mLThis test was performed using Real-Time Polymerase ChainReaction.Reportable Range: 20 copies/mL to 10,000,000 copies/mL(1.30 log copies/mL to 7.00 log copies/mL).THIS TEST WAS PERFORMED AT:[facility] [place] [id number] STRICKLAND MD 04/21/2025 10:4 3 AM EDT 04/21/2025 1:18 PM EDT us Leta Dick MD LAB BLOOD ORDERAB LES Final Result Performing Organization Address [facility]/ZIP Co de Phone Number [facility] [address] [place] [phone] * Lipid Panel, Standard (04/06/2023 10:00 AM EDT) Triglycerides 94 mg/dL [facility] Comment:Desirable Triglyceri de: less than [...] to 190 mg/dL HDL Cholesterol 25 mg/dL [facility] Comment:Desirable HDL: great er than 40 mg/dL Note: This HDL assay may give artificially low results in patients with liver disease. Blood Venous blood specimen / Unknown 04/06/2023 10:00 AM EDT 04/06/2023 11:20 AM EDT us Ann MOISE LAB BLOOD ORDERABLES Final Resul t Performing Organization Address [facility]/ZIP Co de Phone Number [facility] [address] [place] [phone] from Last 3 Months or Most Recently Relevant to Health Maintenance [place] [address] [place] [address] C3 Care Teams Automobile Technician Relationship Specialty Start Date End Date Leta Soto MD [address] [place] [phone] PCP - General Internal Medicine 04/11/23 Yajaira Antonio [address] [place] [address] 3rd Floor [place], [place] [phone] Gastroenterology 09/04/24 [facility] 01/28/25
--- OUTSIDE RECORDS SUMMARY | 2025-08-10 14:35 | XMS_ITS | Encounter Summary ---
Author Organization [employer] Address [address] [facility] 7t [place] [address] Care Team Providers Care Chucking Machine Set Up Operator Name Role Phone Leta Soto MD Primary Care Pro vider Yajaira Antonio Unavailable Reason for Visit * Reason Onset Date Comments VNA Referral 08/05/2025 Encounter Details Date Type Department Care Team (Late st Contact Info) Description 08/05/2025 Telephone [facility] [address] [place] [address] Yamel Khanna, CHANDU [address] [place] [address] VNA Referral Social History Tobacco Use Types Packs/Day Years [...] Telephone Encounter - Yamel Khanna RN - 08/05/2025 2:16 PM EST Per PCP, pt needs referral for VNA. Order generated and placed on PCP's desk. Pending signature. documented in this encounter Plan of Treatment Upcoming Encounters Date Type Department Care Team (Late st Contact Info) Description 08/21/2025 10:00 AM EST Clinical Support [facility] [address] [place] [phone] 09/24/2025 10:15 AM EST Office Visit [facility] [address] [place] [phone] Leta Soto MD [address] [place] [address] documented as of this encounter Goals Goal [...] documented as of this encounter Care Teams Chucking Machine Set Up Operator Relationship Specialty Start Date End Date Leta Soto MD [address] [place] [phone] PCP - General Internal Medicine 04/11/23 Yajaira Antonio [address] [place] [address] 3rd [place] [address] Gastroenterology 09/04/24 [facility] 01/28/25 documented as of this encounter
--- OUTSIDE RECORDS SUMMARY | 2025-08-10 14:36 | XMS_ITS | Encounter Summary ---
Author Organization [employer] Address [address] [facility] [address] [facility] [address] [place] [address] Care Team Providers Care Shrub Grower Name Role Phone Leta Soto MD Primary Care Pro vider Yajaira Antonio Unavailable Reason for Visit * Reason Comments Med Refill Encounter Details Date Type Department Care Team (Late st Contact Info) Description 07/29/2025 Refill [facility] [address] [place] [phone] Victoriano Beyer MD [address] [place] [address] Oral ulcer Social History Tobacco Use Types [...] 2:57 PM EST Called pt via BLS [phone]. Pt states that his mouth ulcer has resolved after he took the liquid medication. Reminded pt of upcoming 08/05/25 appointment. Pt verbalized understanding. documented in this encounter Plan of Treatment Upcoming Encounters Date Type Department Care Team (Late st Contact Info) Description 08/21/2025 10:00 AM EST Clinical Support [facility] [address] [place] [phone] 09/24/2025 10:15 AM EST Office Visit [facility] [address] [place] [phone] Leta Soto MD [address] [place] [phone] documented as of this encounter Goals Goal [...] documented as of this encounter Care Teams Shrub Grower Relationship Specialty Start Date End Date Leta Soto MD [address] [place] [phone] PCP - General Internal Medicine 04/11/23 Yajaira Antonio [address] [place] [address] 3rd [place] [address] Gastroenterology 09/04/24 [facility] 01/28/25 documented as of this encounter
--- OUTSIDE RECORDS SUMMARY | 2025-08-10 14:36 | XMS_ITS | Encounter Summary ---
Author Organization [employer] Address [address] [facility] 7t [place] [address] Care Team Providers Care Um Rn Name Role Phone Leta Soto MD Primary Care Pro vider Yajaira Antonio Unavailable Encounter Details Date Type Department Care Team (Late st Contact Info) Description 04/21/[address] [facility] [address] [place] [address] Imelda Pfeiffer, CHANDU [address] [place] [address] Healthcare maintenance Social History Tobacco Use Types [...] Description 08/21/2025 10:00 AM EST Clinical [address] [facility] [address] [place] [address] 09/24/2025 10:15 AM EST Office Visit [address] [address] Leta Soto MD [address] [place] [phone] Scheduled Orders Name Type Priority Associated Diagnoses [...] [facility] Comment:For additional infor mation, please refer tohttp://education.ReadWorks/faq/VBS71z2(This link is being provided for informational/educational purposes only.)THIS TEST WAS PERFORMED AT:[facility] [place] [id number] STRICKLAND MD 04/21/2025 10:4 3 AM EDT 04/22/2025 8:54 AM EDT us Leta Dick MD LAB BLOOD ORDERAB LES Final Result Performing Organization Address City/[facility]/ZIP Co de Phone Number [facility] [address] [place] [phone] * HIV-1 RNA, Quantitative, Real-Time PCR [...] to 7.00 log copies/mL).THIS TEST WAS PERFORMED AT:[facility] [address] [phone] STRICKLAND MD 04/21/2025 10:4 3 AM EDT 04/21/2025 1:18 PM EDT us Leta Dick MD LAB BLOOD ORDERAB LES Final Result Performing Organization Address [facility] Co de Phone Number [facility] [address] [place] [phone] * RPR (Monitor) with Reflex to??Titer (04/21/2025 10:43 AM EDT) RPR (Monitor) w/Refl Titer NON-REACTI VE NON-REACT [place] [facility] Comment:THIS TEST WAS PERFOR MED AT:[facility] [place] [id number] STRICKLAND MD Rapid Plasma Reagin Ab Titer TNP [facility] 04/21/2025 10:4 3 AM EDT 04/21/2025 1:18 PM EDT us Leta Dick MD LAB BLOOD ORDERAB LES Final Result Performing Organization Address [facility]/ZIP Co de Phone Number [facility] [address] [place] [phone] * (ABNORMAL) Hepatitis C Antibody with Reflex to HCV, RNA, Quantitative, Real- Time PCR (04/21/2025 10:43 AM EDT) Hepatitis C Antibody Reactive( A) Nonreactive [facility] Comment:Presumptive evidence of antibodies to HCV. 04/21/2025 10:4 3 AM EDT 04/21/2025 1:18 PM EDT us Leta Dick MD LAB BLOOD ORDERAB LES Final Result Performing Organization Address [facility] Co de Phone Number [facility] [address] [place] [address] [phone] * Syphilis Screen (04/21/2025 10:43 AM EDT) Syphilis Screen Nonreactive Nonreactive [facility] 04/21/2025 10:4 3 AM EDT 04/21/2025 1:18 PM EDT us Leta Dick MD LAB BLOOD ORDERAB LES Final Result Performing Organization Address [facility] Co de Phone Number [facility] [address] [place] [phone] documented in this encounter Visit Diagnoses Diagnosis Healthcare maintenance documented in this encounter Additional Health Concerns Assessment Noted Time PHQ-9 Depression Total Score: 0 03/12/20 25 10:25 AM EDT documented as of this encounter Care Teams Um Rn Relationship Specialty Start Date End Date Leta Soto MD [address] [place] [phone] PCP - General Internal Medicine 04/11/23 Yajaira Antonio [address]rd [place] [address] Gastroenterology 09/04/24 [facility] 01/28/25 documented as of this encounter
--- OUTSIDE RECORDS SUMMARY | 2025-08-10 14:36 | XMS_ITS | Encounter Summary ---
Author Organization [employer] Address [address] [facility] 7[address] [place] [address] Care Team Providers Care Card Room Manager Name Role Phone Leta Soto MD Primary Care Pro vider Yajaira Antonio Unavailable Encounter Details Date Type Department Care Team (Late st Contact Info) Description 12/17/2023 Orders Only [facility] [address] [place] [address] Tatyana Mosquera FNP [address] [place] [address] Social History Tobacco Use Types Packs/Day Years [...] Description 08/21/2025 10:00 AM EST Clinical Support [facility] [address] [place] [phone] 09/24/2025 10:15 AM EST Office Visit [facility] [address] [place] [phone] Leta Soto MD [address] [place] [phone] documented as of this encounter Goals Goal [...] documented as of this encounter Care Teams Card Room Manager Relationship Specialty Start Date End Date Leta Soto MD [address] [place] [phone] PCP - General Internal Medicine 04/11/23 Yajaira Antonio [address] [place] [address] Drive 3rd [place] [address] Gastroenterology 09/04/24 [facility] 01/28/25 documented as of this encounter
== END 2025-08-10 11:08 | disposition home or self-care (01) ==
LOC: HO.HHCL 11:07
PROVIDERS: PCP Student in an Organized Health Care Education/Training Program; Referring Provider Internal Medicine Medical Oncology; Visit Provider Student in an Organized Health Care Education/Training Program
DX: D61.818 Other pancytopenia (principal); N39.0 Urinary tract infection, site not specified
CPT/HCPCS: 36415; 80053; 81001; 85025

== ENCOUNTER 2025-08-14 17:07 | Emergency (ER) | payer MEDICAID, SELFPAY ==
[2025-08-14 17:14] VITALS: BP 172/78; PULSE 77; O2SAT 98
[2025-08-14 17:40] VITALS: BP 153/52; PULSE 68; RESP 18; TEMP 36.6; O2SAT 100; BMI 29.1
[2025-08-14 17:56] LABS: Hematocrit 29.7 % (42.0-52.0); Hemoglobin 9.0 g/dl (14.0-18.0); Imm Gran Abs Auto 0.00 X10*3/uL (0.00-0.03); Imm Gran Pct Auto 0.0 % (0.0-0.4); Lymphocytes Absolute Auto 0.4 X10*3/uL (1.2-4.9); MANUAL DIFF FLAG SCAN; Mean Corpuscular HGB Conc 30.3 g/dl (31.0-36.0); Mean Corpuscular Hemoglobin 24.0 pg (27.0-33.0); Mean Corpuscular Volume 79.2 fL (80.0-98.0); NRBC Abs Auto 0.000 X10*3/uL (0.0-0.012); NRBC Pct Auto 0.0 /100WBC (0.0-0.2); Red Blood Count 3.75 X10*6/uL (4.60-5.80); SCAN SMEAR FLAG 1
[2025-08-14 17:57] LABS: White Blood Count 1.5 X10*3/uL (4.8-10.8)
[2025-08-14 18:01] LABS: Ammonia 91 umol/L (13-55)
[2025-08-14 18:04] LABS: Platelet Count 19 X10*3/uL (160-400)
[2025-08-14 18:13] LABS: Alanine Aminotransferase 30 U/L (0-40); Albumin Level 3.4 g/dL (3.5-5.0); Alkaline Phosphatase 151 U/L (39-117); Anion Gap 8 (12-20); Aspartate Amino Transferase 40 U/L (5-37); Blood Urea Nitrogen 11 mg/dL (9-16); Calcium 8.7 mg/dL (8.4-10.2); Carbon Dioxide 22 mmol/L (22-29); Chloride 116 mmol/L (96-108); Creatinine Clr Calc Pharmacy 128.6; Estimated Glomerular Filt Rate > 60; Potassium 4.2 mmol/L (3.3-5.1); Sodium 142 mmol/L (135-145); Total Protein 6.8 g/dL (6.5-8.0)
[2025-08-14 18:20] LABS: Troponin-I High Sensitivity 20.9 ng/L (<3.5-35.0)
--- NOTE | 2025-08-14 19:24 | ED.GENADULT ---
HPI - General Adult General Chief complaint: Altered Mental Status Stated complaint: Found by VN AMS A&Ox2 pants on head& shit on feet Time Seen by Provider: 08/14/25 19:23 Source: patient Mode of arrival: ambulatory Limitations: no limitations History of Present Illness ED Provider: Dr. Yu HPI narrative: 64-year-old male history of liver cirrhosis, hepatic encephalopathy presenting to ER today for evaluation of altered mentation. Patient was sent in by [facility]NA service for concern of delirium. This patient is well-known to the ER. He has been sent in here for altered mentation in the past. Has had issues with elevated ammonia level in the past for hepatic encephalopathy. However on my evaluation this does appear to be his baseline behavior. The patient stated that he is here for dizziness he has no other complaints at this time. He stated that he is currently resides in the senior living. Related Data Home Medications ?Medication ?Instructions ?Recorded ?Confirmed blood pressure test kit-large #1 ea 05/27/25 (Omron Blood Pressure Monitor-3 Series kit) lactulose 10 gram/15 mL oral 40 g PO BID 06/04/25 07/13/25 solution Previous Rx's ?Medication ?Instructions ?Recorded walker #1 ea 02/08/25 amlodipine 5 mg tablet 5 mg PO DAILY #90 tabs 04/21/25 rifaximin 550 mg tablet (Xifaxan) 550 mg PO BID 90 days #180 tabs 05/27/25 levofloxacin 750 mg tablet 750 mg PO DAILY #4 tabs 07/15/25 omeprazole 40 mg capsule,delayed 40 mg PO DAILY #60 caps 07/15/25 release levofloxacin 500 mg tablet 500 mg PO DAILY 7 days #7 tabs 08/06/25 Allergies Allergy/AdvReac Type Severity Reaction Status Date / Time dicyclomine (From Bentyl) Allergy Unknown Verified 08/14/25 17:43 aspirin AdvReac Severe stomach Verified 08/14/25 17:43 bleeding NSAIDS (Non-Steroidal AdvReac Severe liver Verified 08/14/25 17:43 Anti-Inflamma concerns Review of Systems Review of Systems: Pertinent review of systems as mentioned in HPI. All other system otherwise negative. [facility] Past Medical History [facility] Narrative: Medical history as mentioned in HPI Medical History (Updated 08/14/25 @ 22:26 by Sofiya Yu DO) Pancytopenia Falls frequently UGIB (upper gastrointestinal bleed) Portal vein thrombosis Eye abnormality Cirrhosis of liver Pancytopenia Hyperammonemia Pancytopenia Obesity (BMI 30.0-34.9) Fall Pancytopenia Hepatic encephalopathy Cirrhosis Splenic vein thrombosis Sepsis Cirrhosis of liver with ascites Abdominal pain Thrombocytopenia Pancytopenia Cirrhosis Hepatitis C virus infection Esophageal varices Pancytopenia Iron deficiency anemia Cirrhosis Hepatitis C HBP (high blood pressure) Surgical History (Updated 07/23/25 @ 00:01 by Florentino Ty) S/P TIPS (transjugular intrahepatic portosystemic shunt) H/O left inguinal hernia repair H/O eye surgery History of esophagogastroduodenoscopy (EGD) H/O colonoscopy Family History Family History Maternal Grandmother Breast CA Uterus cancer Mother Primary lung cancer of unknown cell type Social History Social History Household Members: None Household Members Other:: pt comes from a senior living Housing: Homeless Housing Other:: senior living Are you a primary health care coach to a significant other at home: No Do you presently have visiting nurse or other home services: Yes Alcohol intake: current Alcohol intake frequency: former alcohol drinker Comment: steady gait noted Patient Tobacco Use Status: Current everyday Tobacco user Tobacco use type: Cigarette Cigarette Packs Per Day: 1 Cigarettes Per Day: 0.5 Years Smoked: 45 Smoked in Last 30 Days: No e-Cigarette/Vaping Use: Never Used Second Hand Smoke Exposure: No Use of substances other than those prescribed or required for medical reasons: No Substance Use Type: Heroin Advance Directives: Yes Advance Directives on File: Yes Advance Directives Date on File: 04/02/24 Do you have a plan to hurt others: No Plan service: No Current occupational status: retired Physical Exam ED Exam Exam: General: Pleasant, no distress, interacting appropriately Head: Normacephalic, atraumatic ENT: oral mucosa moist, neck supple, no tracheal deviation Cardiovascular: regular rate, regular rhythm, no murmurs, rubbing, gallops Respiratory: CTAB, no wheeze, rales, rhonchi Neurological: Awake and alert, no facial droop noted Skin: Warm and dry Psychiatric: Appropriate mood and thoughts Vital Signs: Vital Signs - 24 hr 08/14/25 17:40 12/05/25 19:56 Temperature 97.8 F 97.6 F Pulse Rate 68 68 Respiratory Rate 18 17 Blood Pressure 153/52 H 142/50 H Pulse Oximetry 100 100 Oxygen Delivery Method Room Air Room Air BMI result Body Mass Index 29.1 Medications Administered Discontinued Medications Generic Name Dose Route Start Last Admin Trade Name Samuel PRN Reason Stop Dose Admin Sodium Chloride 1,000 mls @ 999 mls/hr 08/14/25 20:15 08/14/25 20:46 Ns IV 08/14/25 21:15 999 mls/hr .Q1H1M LALI Administration Lactulose 20 gm 08/14/25 20:27 08/14/25 20:50 Lactulose 20 Gm/30 Ml Solution PO 08/14/25 20:28 20 gm ONCE ONE Administration Medical Decision Making Medical Decision Making [facility] Narrative: This is a 64-year-old male history of liver cirrhosis presenting to ER for evaluation of altered mentation. This patient is well-known to me. This a does appear to be his baseline behavior. However patient does live in a senior living. He does have some underlying cognitive disorder. We will obtain a screening lab assess his ammonia level. We will also get case management and social work involved for the patient. We will like to assess patient's resource. IV fluid be given to the patient. Patient is able to ambulate and eat without any issues. Case management has evaluated the patient. The patient does have [employer] that comes every day for him. Patient is currently lives at a senior living which is a room provided to him in a motel like setting. The patient's CBC shows low platelets at 19 signs of thrombocytopenia. This is similar to his baseline platelet level. No acute changes. Does have some leukopenia and anemia at 9.0. The patient's chemistries unremarkable, patient's ammonia level is slightly over 91. We will plan to give patient a dose of night lactulose here. Patient has baseline behavior at this time we will discharge him with follow up with his primary care doctor for evaluation of his CBC changes. Differential Diagnosis Differential Diagnoses: The differential diagnosis associated with the presentation includes Hepatic encephalopathy, dehydration, anemia Lab Data [facility] Lab Attestation statement: I reviewed the patient's lab results. 08/14/25 17:46 08/14/25 17:46 Labs: Lab Results 08/14/25 Range/Units 17:46 WBC 1.5 L (4.8-10.8) X10*3/uL RBC 3.75 L (4.60-5.80) X10*6/uL Hgb 9.0 L (14.0-18.0) g/dl Hct 29.7 L (42.0-52.0) % MCV 79.2 L (80.0-98.0) fL MCH 24.0 L (27.0-33.0) pg MCHC 30.3 L (31.0-36.0) g/dl RDW 17.8 H (11.0-16.0) % Plt Count 19 L* (160-400) X10*3/uL MPV Not Reportable Immature Gran % (Auto) 0.0 (0.0-0.4) % Neut % (Auto) 57.7 (45-73) % Lymph % (Auto) 27.5 (20-40) % Luce % (Auto) 10.7 (2-11) % Eos % (Auto) 3.4 (0-4) % Baso % (Auto) 0.7 (0-2) % Lymph # (Auto) 0.4 L (1.2-4.9) X10*3/uL Luce # (Auto) 0.2 (0.1-1.2) X10*3/uL Eos # (Auto) 0.1 (0.0-0.4) X10*3/uL Baso # (Auto) 0.0 (0.0-0.2) X10*3/uL Abs Immat Gran (auto) 0.00 (0.00-0.03) X10*3/uL Absolute Neuts (auto) 0.9 L (2.0-8.3) x10*3/uL Absolute Nucleated RBC 0.000 (0.0-0.012) X10*3/uL Nucleated RBC % (auto) 0.0 (0.0-0.2) /100WBC Smear Tech's Comments VERIFIED Sodium 142 (135-145) mmol/L Potassium 4.2 (3.3-5.1) mmol/L Chloride 116 H (96-108) mmol/L Carbon Dioxide 22 (22-29) mmol/L Anion Gap 8 L (12-20) BUN 11 (9-16) mg/dL Creatinine 0.67 (0.5-1.4) mg/dL Estim Creat Clear Calc 128.6 Estimated GFR > 60 Random Glucose 80 (60-115) mg/dL Lactic Acid 1.9 (0.5-2.0) mmol/L Calcium 8.7 (8.4-10.2) mg/dL Total Bilirubin 0.9 (0.0-1.0) mg/dL Direct Bilirubin 0.4 (0.0-0.5) mg/dL AST 40 H (5-37) U/L ALT 30 (0-40) U/L Alkaline Phosphatase 151 H (39-117) U/L Ammonia 91 H (13-55) umol/L Troponin I High Sens 20.9 D (<3.5-35.0) ng/L Total Protein 6.8 (6.5-8.0) g/dL Albumin 3.4 L (3.5-5.0) g/dL Discharge Plan Discharge Clinical Impression: Encounter for medical screening examination Patient Disposition: Home, Self-Care Prescriptions: No Action (DME) walker [facility] See Rx Instructions .Route Qty: 1 0RF Rx Instructions: As directed lactulose 10 gram/15 mL solution 40 g PO BID omeprazole 40 mg capsule,delayed release(DR/EC) 40 mg PO DAILY Qty: 60 0RF Rx Instructions: Take on capsule daily levofloxacin 750 mg tablet 750 mg PO DAILY Qty: 4 0RF Rx Instructions: Take one tablet daily for the next 4 days, starting on 07/16 and ending on 07/19 levofloxacin 500 mg tablet 500 mg PO DAILY 7 Days Qty: 7 0RF (DME) blood pressure test kit-large [Omron BP Monitor-3 Series] Kit See Rx Instructions .ROUTE DAILY Qty: 1 Rx Instructions: As directed Xifaxan 550 mg tablet 550 mg PO BID 90 Days Qty: 180 0RF amlodipine 5 mg tablet 5 mg PO DAILY Qty: 90 0RF Referrals: [facility] [Provider Group, Internal Medicine] Print Language: Occitan
[2025-08-14 19:56] VITALS: BP 142/50; PULSE 68; RESP 17; TEMP 36.4; O2SAT 100
--- OUTSIDE RECORDS SUMMARY | 2025-08-14 20:03 | XMS_ITS | Clinical Summary ---
Author Organization [facility] Address [address] [facility] [address] [place] [phone] Phone Care Team Providers Care Filter Pulp Washer Name Role Phone Leta Soto MD Primary [...] Care Team Description 06/10/2025 Telephone [facility] [address] [facility] 10th [place] [address] Michela Matt MD 10/2 cancelled 06/09/2025 Telephone [facility] [address] [place] [address] Michela Matt MD Procedure Instructions 05/28/2025 10:00 AM EDT Pre-Admission Testing [facility] Pre Procedure Evaluation [facility] [address] [place] [phone] Michela Matt MD from Last 3 Months [...] Pre-Admission Testing [facility] Pre Procedure Evaluation Center [address] [place] [phone] Michela Matt MD [address] [place] [phone] [email or web address] 10/08/2025 Procedure Pass [facility] [place] MAIN PERIOP DEPT [address] [place] [phone] 10/08/2025 9:00 AM EST [facility] [address] [place] [phone] Michela Matt MD [address] [place] [phone] [email or web address] 10/08/2025 9:00 AM EST Anesthesia Event [facility] [address] [place] [phone] [place] Rosas MD [address] [place] [phone] [email or web address] Loredo NP [address] [place] [phone] [email or web address] 10/08/2025 9:00 AM EST - 10/08/2025 10:00 AM EST Surgery [facility] [address] [place] [phone] Michela Matt MD [address] [place] [phone] [email or web address] 10/19/2025 2:30 PM EST Office Visit [facility] [address] [address] Michela Matt MD [address] [place] [phone] [email or web address] Scheduled Procedures Name Priority Associated Diagnoses [...] topic Medical Devices Not on file [place] [address] [place] [address] C3 ACO C3 ACO C3 ACO C3 ACO [employer] C[address] [place] [address] [place] [address] C3 ACO Care Teams Filter Pulp Washer Relationship Specialty Start Date End Date Leta Soto MD [address] [place] [phone] PCP - General Internal Medicine 01/05/25 Additional Source Comments The information contained in this document represents components of the legal health record. It is not the complete legal health record.[facility]
--- OUTSIDE RECORDS SUMMARY | 2025-08-14 20:03 | XMS_ITS | Clinical Summary ---
Author Organization [employer] Address [address] [facility] [address] [place] [address] Care Team Providers Care [employer] Name Role Phone Leta Soto MD Primary [...] Type Department Care Team Description 08/10/2025 Telephone [facility] [place] [address] Leta Soto MD UA to [facility] 08/10/2025 Orders Only [facility] [place] [address] Leta Soto MD 08/10/2025 Patient Outreach [address] [address] Leta Soto MD 08/08/2025 Orders Only [address] [address] Leta Soto MD Urinary tract infection without hematuria, site unspecified (Primary Dx) 08/05/2025 10:15 AM EST Office Visit [facility] [place] [address] Leta Soto MD Cognitive impairment (Primary Dx); Essential hypertension; Anemia, unspecified type; Severe thrombocytopenia (CMS/HCC); Obesity due to excess calories without serious comorbidity, unspecified class; Other cirrhosis of liver (HCC); Healthcare maintenance; Hospital discharge follow-up; Homeless; Tobacco use 08/05/2025 Patient Outreach [facility] [place] [address] Leta Soto MD Care Coordination (CM/CHW outreach) 08/05/[address] [address] Yamel Khanna RN VNA Referral 08/05/2025 Travel 08/04/[address] [phone] Leta Soto MD chart prep 08/01/2025 Orders Only GENERIC EXTERNAL DATA DEPARTMENT Provider, Generic External Data 07/31/2025 Telephone [facility] [place] [address] Leta Soto MD 07/31/2025 [address]ill [place] [address] [place] [address] Leta Soto MD 07/31/2025 Refill [facility] [address] [place] [phone] Victoriano Beyer MD Oral ulcer 07/29/[address] [address] Leta Soto MD Medication Question 07/29/2025 Refill [facility] [address] [address] Victoriano Beyer MD Oral ulcer 07/20/2025 Orders Only GENERIC EXTERNAL DATA DEPARTMENT Provider, Generic External Data 07/16/2025 Patient Outreach [address] [address] Leta Soto MD Transition Of Care (Tcm) (HDF scheduled and SDOH screening completed on 03/12/25) 07/16/[address] [address] Leta Soto MD Hospital Follow-up 07/13/2025 Orders Only GENERIC EXTERNAL DATA DEPARTMENT Provider, Generic External Data 07/12/2025 Orders Only GENERIC EXTERNAL DATA DEPARTMENT Provider, Generic External Data 07/09/[address] [address] Leta Soto MD Letter for School/Work 07/02/2025 Orders Only GENERIC EXTERNAL DATA DEPARTMENT Provider, Generic External Data 07/01/2025 Orders Only GENERIC EXTERNAL DATA DEPARTMENT Provider, Generic External Data 07/01/[address] [place] [address] Leta Soto MD 06/25/2025 Orders Only [facility] External Provider, [facility] 06/25/[address] [address] Leta Soto MD FYI 06/12/[address] [address] Leta Soto MD gsssi 06/11/2025 Telephone [facility] [address] [place] [address] Yamel Khanna RN 06/09/2025 9:45 AM EDT Office Visit [facility] [address] [place] [address] Leta Soto MD Dizziness (Primary Dx); Essential hypertension; Other cirrhosis of liver (CMS/HCC); Hepatic encephalopathy (CMS/HCC); Healthcare maintenance 06/09/2025 Orders Only GENERIC EXTERNAL DATA DEPARTMENT Provider, Generic External Data 06/09/2025 Telephone [facility] [address] [place] [address] Leta Soto MD ER Follow-up 06/09/2025 Travel 06/08/2025 Telephone [facility] [address] [place] [address] Leta Soto MD chart prep 06/04/2025 Orders Only GENERIC EXTERNAL DATA DEPARTMENT Provider, Generic External Data 05/30/2025 10:40 AM EDT Office Visit [facility] [address] [place] [address] Victoriano Beyer MD Oral ulcer (Primary Dx) 05/30/2025 Travel 05/22/2025 Orders Only [facility] External Provider, [facility] 05/21/2025 Orders Only GENERIC EXTERNAL [...] Description 08/21/2025 10:00 AM EST Clinical Support [address] [address] 09/24/2025 10:15 AM EST Office Visit [address] [phone] Leta Soto MD [address] [place] [address] [phone] Health Maintenance Due Date Last Done Comments [...] period is included. Color Urine Dark Yellow [facility] Appearance Urine Clear [facility] PH 6.5 5.0 - 9.0 [facility] Glucose Urine UA Negative Negative mg/dL [facility] Urine Blood Negative Negative [facility] Specific [place] - Urine 1.015 1.005 - 1.025 [facility] Urine Protein Negative Neg-Trace mg/dL [facility] Urine Ketones Trace Negative mg/dL [facility] Nitrite Urine Negative Negative [facility] Leukocyte Esterase Urine Negative Negative [facility] RBC Urine 0-2 0 - 2 /HPF [facility] Urine WBC 0-5 0 - 5 /HPF [facility] Urine Squamous Epithelial Cell 0-2 0 - 2 /HPF [facility] Urine Bacteria None Seen None Seen [facility] Hyaline Casts, Urine 0-2 0 - 2 /LPF [facility] Urine 08/10/2025 11:1 7 AM EST 08/10/2025 1:00 PM EST Narrative [facility] - 08/10/2025 1:33 PM EST Urine, Clean Catch us Leta Dick MD LAB URINE ORDERAB LES Final Result [facility] [address] [place] [phone] * (ABNORMAL) CBC auto differential (08/10/2025 11:17 AM EST) Only the most recent of7 resultswithin the time period is included. White Blood Count 2.1(L) 4.8 - 10.8 X10*3/uL [facility] Red Blood Count 3.96(L) 4.60 - 5.80 X10*6/uL [facility] Hemoglobin 9.7(L) 14.0 - 18.0 g/dl [facility] Hematocrit 31.8(L) 42.0 - 52.0 % [facility] Mean Corpuscular Volume 80.3 80.0 - 98.0 fL [facility] Mean Corpuscular Hemoglobin 24.5(L) 27.0 - 33.0 pg [facility] Mean Corpuscular HGB Conc 30.5(L) 31.0 - 36.0 g/dl [facility] Red Cell Distribution Width 17.0(H) 11.0 - 16.0 % [facility] Platelet Count 24(L) 160 - 400 X10*3/uL [facility] Neutrophils Percent Auto 62.0 45 - 73 % [facility] Imm Gran Pct Auto 0.5(H) 0.0 - 0.4 % [facility] Lymphocytes Percent Auto 26.2 20 - 40 % [facility] Monocytes Percent Auto 8.9 2 - 11 % [facility] Eosinophils Percent Auto 1.9 0 - 4 % [facility] Basophils Percent Auto 0.5 0 - 2 % [facility] NRBC Pct Auto 0.0 0.0 - 0.2 /100WBC [facility] Neutrophils Absolute Auto 1.3(L) 2.0 - 8.3 x10*3/uL [facility] Imm Gran Abs Auto 0.01 0.00 - 0.03 X10*3/uL [facility] Lymphocytes Absolute Auto 0.6(L) 1.2 - 4.9 X10*3/uL [facility] Monocytes Absolute Auto 0.2 0.1 - 1.2 X10*3/uL [facility] Eosinophils Absolute Auto 0.0 0.0 - 0.4 X10*3/uL [facility] Basophils Absolute Auto 0.0 0.0 - 0.2 X10*3/uL [facility] NRBC Abs Auto 0.000 0.0 - 0.012 X10*3/uL [facility] 08/10/2025 11:1 7 AM EST 08/10/2025 1:06 PM EST us Generic External Data Provider LAB BLOOD ORDERAB LES Edited Result - Final [facility] [address] [place] [phone] [phone] * (ABNORMAL) Comprehensive Metabolic Panel (08/10/2025 11:17 AM EST) Only the most recent of5 resultswithin the time period is included. Sodium 143 135 - 145 mmol/L [facility] Potassium 4.3 3.3 - 5.1 mmol/L [facility] Chloride 114(H) 96 - 108 mmol/L [facility] Carbon Dioxide 24 22 - 29 mmol/L [facility] Anion Gap 9(L) 12 - 20 [facility] Urea Nitrogen (BUN) 11 9 - 16 mg/dL [facility] Creatinine, Serum 0.85 0.5 - 1.4 mg/dL [facility] Estimated Glomerular Filt Rate >60 [facility] Comment:Chronic Kidney Disea se: Estimated GFR < 60 mL/min/1.33c6Qwnvns Kidney Disease: Estimated GFR < 15 mL/min/1.73m2 Glucose 90 60 - 115 mg/dL [facility] Calcium 8.5 8.4 - 10.2 mg/dL [facility] Bilirubin, Total 1.5(H) 0.0 - 1.0 mg/dL [facility] Aspartate Amino Transferase 46(H) 5 - 37 U/L [facility] Alanine Aminotransferase 33 0 - 40 U/L [facility] Total Protein 7.1 6.5 - 8.0 g/dL [facility] Albumin Level 3.5 3.5 - 5.0 g/dL [facility] Alkaline Phosphatase 145(H) 39 - 117 U/L [facility] 08/10/2025 11:1 7 AM EST 08/10/2025 1:06 PM EST Generic External Data Provider LAB BLOOD ORDERAB LES Final Result Performing Organization Address [facility] Number [facility] [address] [place] [phone] * Culture, Urine, Routine (08/01/2025 1:21 PM EST) Urine Urine specimen obtained by clean catch procedure / Unknown 08/01/2025 1:21 PM EST 08/01/2025 6:57 PM EST Comment:[facility] Narrative [facility] - 08/04/2025 8:04 AM EST Enterococcus faecalis Quant 10,000 to 50,000 cfu/mL Lactobacillus species Quant 10,000 to 50,000 cfu/mL [facility] N/A Susceptibility not routinely performed on this isolate. Enterococcus faecalis: Ampicillin <=2(S) Enterococcus faecalis: Levofloxacin 0.5(S) Enterococcus faecalis: Nitrofurantoin <=16(S) Enterococcus faecalis: Tetracycline >=16(R) Enterococcus faecalis: Vancomycin 1(S) Specimen Source: Urine clean catch Generic External Data Provider LAB MICROBIOLOGY - GENERAL ORDERABLES Final Result Performing Organization Address [facility] Co de Phone Number [facility] [address] [place] [phone] * (ABNORMAL) Prothrombin Time-INR (07/13/2025 12:47 AM EST) Only the most recent of2 resultswithin the time period is included. Prothrombin Time 17.2(H) 10.9 - 12.4 SEC [facility] INTERNATIONAL NORM RATIO 1.5(H) 0.9 - 1.1 [facility] Comment:INTERNATIONAL NORMAL IZED RATIO (INR) [...] Provider LAB BLOOD ORDERAB LES Final Result [facility] [address] [place] [address] [phone] * CT Cervical Spine w/o Contrast (07/13/2025 12:12 AM EST) Anatomical Region Laterality Modality Spine, C-spine Computed Tomogra phy 07/13/2025 12:1 2 AM EST Narrative 07/13/2025 12:13 AM EST [address] [address] [address] Scan Report Signed Patient: Adelso Beebe MR#: [id number] : 1960 Acct:[id number] Age/Sex: 64 / M ADM Date: 07/12/25 Loc: HO.ED Attending Dr: Ordering Physician: Stefani Rocha DO Date of Service: 07/12/25 Procedure(s): CT cervical spine wo IV con Accession Number(s): [id number] cc: Stefani Rocha DO; Leta Soto MD Report Number: [id number]: Total DLP = 472.00 mGy-cm Reason for [...] MD in OV> 07/13/2512 DD/ TD/TT: 07/13/2511 Primary Care Nurse Practitioner: Procedure Note Donotuseinterpreter, Image - 07/13/[address] [place] [address] [address] Scan Report Signed Patient: Adelso Beebe#: [id number] : 1960cct:[id number] Age/Sex: 64 / MADM Date: 07/12/25 Loc: HO.ED Attending Dr: Ordering Physician: Stefani Rocha DO Date of Service: 07/12/25 Procedure(s): CT cervical spine wo IV con Accession Number(s): [id number] cc: Stefani Rocha DO; Leta Soto MD Report Number: [id number]: Total DLP = 472.00 mGy-cm Reason for [...] MD in OV> 07/13/2512 DD/ TD/TT: 07/13/2511 Primary Care Nurse Practitioner: us [facility] External Provider IMG CT PROCEDURES Edited Result - Final * CT Chest w/o Contrast (07/13/2025 12:10 AM EST) Anatomical Region Laterality Modality Body, Chest Computed Tomogra phy 07/13/2025 12:1 0 AM EST Narrative 07/13/2025 12:11 AM EST [address] [address] [address] Scan Report Signed Patient: Adelso Beebe MR#: [id number] : 1960 Acct:[id number] Age/Sex: 64 / M ADM Date: 07/12/25 Loc: HO.ED Attending Dr: Ordering Physician: Stefani Rocha DO Date of Service: 07/12/25 Procedure(s): CT chest wo IV con Accession Number(s): [id number] cc: Stefani Rocha DO; Leta Soto MD Report Number: [id number]: Total DLP = 517.00 mGy-cm Reason for [...] MD in OV> 07/13/2510 DD/ TD/TT: 07/13/259 Primary Care Nurse Practitioner: Procedure Note Donotuseinterpreter, Image - 07/13/[address] [address] [address] Scan Report Signed Patient: Adelso BeebeMR#: [id number] : 1960cct:[id number] Age/Sex: 64 / MADM Date: 07/12/25 Loc: HO.ED Attending Dr: Ordering Physician: Stefani Rocha DO Date of Service: 07/12/25 Procedure(s): CT chest wo IV con Accession Number(s): [id number] cc: Stefani Rocha DO; Leta Soto MD Report Number: [id number]: Total DLP = 517.00 mGy-cm Reason for [...] MD in OV> 07/13/2510 DD/ TD/TT: 07/13/259 Primary Care Nurse Practitioner: [facility] External Provider IMG CT PROCEDURES Edited Result - Final * CT Abdomen Pelvis w/o Contrast (07/13/2025 12:09 AM EST) Anatomical Region Laterality Modality Body, Pelvis, Abdomen Computed T omography 07/13/2025 12:0 9 AM EST Narrative 07/13/2025 12:10 AM EST [place] [address] CT Scan Report Signed Patient: Adelso Beebe MR#: [id number] : 1960 Acct:[id number] Age/Sex: 64 / M ADM Date: 07/12/25 Loc: HO.ED Attending Dr: Ordering Physician: Stefani Rocha DO Date of Service: 07/12/25 Procedure(s): CT abdomen pelvis wo IV con Accession Number(s): [id number] cc: Stefani Rocha DO; Leta Soto MD Report Number: [id number]: Total DLP = 1405.00 mGy-cm Reason for [...] MD in OV> 07/13/259 DD/ TD/TT: 07/13/258 Primary Care Nurse Practitioner: Procedure Note Donotuseinterpreter, Image - 07/13/[address] [place] [address] [address] Scan Report Signed Patient: Adelso BeebeMR#: [id number] : 1960cct:[id number] Age/Sex: 64 / MADM Date: 07/12/25 Loc: HO.ED Attending Dr: Ordering Physician: Stefani Rocha DO Date of Service: 07/12/25 Procedure(s): CT abdomen pelvis wo IV con Accession Number(s): [id number] cc: Stefani Rocha DO; Leta Soto MD Report Number: [id number]: Total DLP = 1405.00 mGy-cm Reason for [...] in OV> 07/13/25 0010 DD/ TD/TT: 07/13/258 Primary Care Nurse Practitioner: [facility] External Provider IMG CT PROCEDURES Edited Result - Final * CT Head w/o Contrast (07/13/2025 12:02 AM EST) Only the most recent of2 resultswithin the time period is included. Anatomical Region Laterality Modality Head, Neck Computed Tomogra phy 07/13/2025 12:0 2 AM EST Narrative 07/13/2025 12:05 AM EST [place] [address] CT Scan Report Signed Patient: Adelso Beebe MR#: [id number] : 1960 Acct:[id number] Age/Sex: 64 / M ADM Date: 07/12/25 Loc: HO.ED Attending Dr: Ordering Physician: Stefani Rocha DO Date of Service: 07/12/25 Procedure(s): CT head/brain wo IV con Accession Number(s): [id number] cc: Stefani Rocha DO; Leta Soto MD Report Number: [id number]: Total DLP = 699.00 mGy-cm Reason for [...] 07/13/25 0003 DD/ 0002 TD/TT: 07/13/25 0002 Primary Care Nurse Practitioner: Procedure Note Donotuseinterpreter, Image - 07/13/[address] [address] [address] Scan Report Signed Patient: Aedlso BeebeMR#: [id number] : 1960cct:[id number] Age/Sex: 64 / MADM Date: 07/12/25 Loc: HO.ED Attending Dr: Ordering Physician: Stefani Rocha DO Date of Service: 07/12/25 Procedure(s): CT head/brain wo IV con Accession Number(s): [id number] cc: Stefani Rocha DO; Leta Soto MD Report Number: [id number]: Total DLP = 699.00 mGy-cm Reason for [...] 07/13/25 0003 DD/ 0002 TD/TT: 07/13/25 0002 Primary Care Nurse Practitioner: [facility] External Provider IMG CT PROCEDURES Edited Result - Final * High Sensitivity Troponin I (07/12/2025 10:42 PM EST) Only the most recent of7 resultswithin the time period is included. TROPONIN I HIGH SENSITIVITY 18.9 <3.5 - 35.0 ng/L [facility] Comment:The Clifford high sens itivity Troponin-I results should beused in conjunction with other diagnostic information suchas ECG, clinical observations and information, and patientsymptoms to aid in the diagnosis of RI. 07/12/2025 10:4 2 PM EST 07/12/2025 10:47 PM EST us Generic External Data Provider LAB BLOOD ORDERAB LES Final Result Performing Organization Address City/[facility]/ZIP Co de Phone Number [facility] [address] [place] [phone] * NT-proBNP (07/12/2025 10:42 PM EST) NT-proBNP 115.0 <300 pg/mL [facility] Comment:Reference Range:Age Group (years) NT-proBNP (pg/ml) InterpretationAll <300 Negative: HF unlikelyFor patients presenting to the ED with clinical suspicion ofnew onset or worsening HF, see below:18 to <50 >299.9 to <450.0 Grayzone: [id number] to 75 >299.9 to <900.0 other causes of>75 >299.9 to <1800.0 NT-proBNP [id number] to <50 >449.9 Positive: HF [id number] >899.9>75 >1799.9Note: Elevated NT-proBNP levels should be interpreted inthe context of other clinical information. 07/12/2025 10:4 2 PM EST 07/12/2025 10:47 PM EST us Generic External Data Provider LAB BLOOD ORDERAB LES Final Result Performing Organization Address City/[facility]/ZIP Co de Phone Number [facility] [address] [place] [phone] * Red blood count (07/12/2025 10:42 PM EST) Red Blood Cells: [id number] ON RC TRANSFUSED 07/13/25 0012 [facility] 07/12/2025 10:4 2 PM EST 07/12/2025 10:47 PM EST us Generic External Data Provider LAB BLOOD ORDERAB LES Final Result Performing Organization Address City/[facility]/ZIP Co de Phone Number [facility] [address] [place] [phone] * Type and screen (07/12/2025 10:42 PM EST) Only the most recent of2 resultswithin the time period is included. Blood Type ON [facility] Antibody Screen NEGATIVE [facility] 07/12/2025 10:4 2 PM EST 07/12/2025 10:47 PM EST Narrative [facility] - 07/13/2025 12:39 AM EST Results at Issue Units as of 07/13/25 0014 ...Test View Group: Most Recent HGB HCT Results LABORATORYDate Time Test Result Flag Normal Range07/12/252009 HGB 6.8 *L 14.0-18.0 g/dlback by Tha 07/12/25 at 2115 by HAILEY.07/12/252009 HCT 22.8 L 42.0-52.0 % Yes Generic External Data Provider LAB BLOOD BANK TE ST ORDERABLES Final Result Performing Organization Address [facility]/ZIP Co de Phone Number [facility] [address] [place] [phone] * (ABNORMAL) Ammonia, Plasma (07/12/2025 10:42 PM EST) Only the most recent of3 resultswithin the time period is included. Ammonia (P) 78(H) 13 - 55 umol/L [facility] 07/12/2025 10:4 2 PM EST 07/12/2025 10:47 PM EST Generic External Data Provider LAB BLOOD ORDERAB LES Final Result Performing Organization Address [facility] de Phone Number [facility] [address] [place] [phone] * Urinalysis w/reflex microscopic (07/12/2025 9:01 PM EST) Only the most recent of4 resultswithin the time period is included. Color Urine Yellow [facility] Appearance Urine Clear [facility] PH 6.0 5.0 - 9.0 [facility] Glucose Urine UA Negative Negative mg/dL [facility] Urine Blood Negative Negative [facility] Specific [place] - Urine 1.015 1.005 - 1.025 [facility] Urine Protein Negative Neg-Trace mg/dL [facility] Urine Ketones Negative Negative mg/dL [facility] Nitrite Urine Negative Negative [facility] Leukocyte Esterase Urine Negative Negative [facility] 07/12/2025 9:01 PM EST 07/12/2025 9:06 PM EST Narrative [facility] - 07/12/2025 9:19 PM EST Urine, Clean Catch us Generic External Data Provider LAB URINE ORDERAB LES Final Result Performing Organization Address [facility] de Phone Number [facility] [address] [place] [phone] * CTA Head Stroke w/ and w/o Contrast (07/02/2025 12:34 AM EDT) Anatomical Region Laterality Modality Computed Tomogra phy 07/02/2025 12:3 4 AM EDT Narrative 07/02/2025 12:35 AM EDT [address] [address] [address] Scan Report Signed Patient: Adelso Beebe MR#: [id number] : 1960 Acct:[id number] Age/Sex: 64 / M ADM Date: 07/01/25 Loc: .ED Attending Dr: Ordering Physician: Bhavana Christensen Date of Service: 07/01/25 Procedure(s): CT angio head neck STROKE Accession Number(s): [id number] cc: Bhavana Christensen; [facility] Report Number: [id number]: Total DLP = 681.00 mGy-cm Reason for [...] Likewise in the shower solving in skin ANIMAL DAYCARE PROVIDER: Persistent origin of the right ANIMAL DAYCARE PROVIDER. Moderate focal narrowing in the distal right [...] MD in OV> 07/02/2534 DD/ TD/TT: 07/02/2533 Primary Care Nurse Practitioner: Procedure Note Donotuseinterpreter, Image - 07/02/[address] [address] [address] Scan Report Signed Patient: Adelso BeebeMR#: [id number] : 2Acct:[id number] Age/Sex: 64 / MADM Date: 07/01/25 Loc: HO.ED Attending Dr: Ordering Physician: Bhavana Christensen Date of Service: 07/01/25 Procedure(s): CT angio head neck STROKE Accession Number(s): [id number] cc: Bhavana Christensen; [facility] Report Number: [id number]: Total DLP = 681.00 mGy-cm Reason for [...] Likewise in the shower solving in skin ANIMAL DAYCARE PROVIDER: Persistent origin of the right ANIMAL DAYCARE PROVIDER. Moderate focal narrowing in the distal right [...] MD in OV> 07/02/2534 DD/ TD/TT: 07/02/2533 Primary Care Nurse Practitioner: us [facility] External Provider IMG CT PROCEDURES Edited Result - Final * XR Chest 1 View (07/02/2025 12:22 AM EDT) Only the most recent of2 resultswithin the time period is included. Anatomical Region Laterality Modality Chest Radiographic Susy ging 07/02/2025 12:2 2 AM EDT Narrative 07/02/2025 12:24 AM EDT [address] [address] XRay Report Signed Patient: Adelso Beebe MR#: [id number] : 1960 Acct:[id number] Age/Sex: 64 / M ADM Date: 07/01/25 Loc: HO.ED Attending Dr: Ordering Physician: Bhavana Christensen Date of Service: 07/01/25 Procedure(s): XR chest 1V Accession Number(s): [id number] cc: Bhavana Christensen; [facility] Reason for Exam: cough/pain CLINICAL HISTORY: cough [...] by Laci Vasquez MD in OV> 07/02/25 002 DD/ TD/TT: 07/02/25 002 Primary Care Nurse Practitioner: Procedure Note Donotuseinterpreter, Image - 07/02/[address] [address] XRay Report Signed Patient: Adelso BeebeMR#: [id number] : 1960cct:[id number] Age/Sex: 64 / MADM Date: 07/01/25 Loc: HO.ED Attending Dr: Ordering Physician: Bhavana Christensen Date of Service: 07/01/25 Procedure(s): XR chest 1V Accession Number(s): [id number] cc: Bhavana Christensen; [facility] [facility] Reason for Exam: cough/pain CLINICAL HISTORY: cough [...] MD in OV> 07/02/2522 DD/ TD/TT: 07/02/2521 Primary Care Nurse Practitioner: [facility] External Provider IMG XR PROCEDURES Edited Result - Final * Drug Monitoring, Panel 1, Screen, Urine (07/02/2025 12:06 AM EDT) Only the most recent of2 resultswithin the time period is included. Opiate Screen Urine Not Detected Not Detect [facility] Comment:Opiate cut-off is 30 0 ng/mL.Positive results are unconfirmed and should not be used fornon-medical purposes. Barbiturates, Urine Not Detected Not Detect [facility] Comment:Barbiturate cut-off is 200 ng/mL.Positive results are unconfirmed and should not be used fornon-medical purposes. Phencyclidine Screen Urine Not Detected Not Detect [facility] Comment:Phencyclidine cut-of f is 25 ng/mL.Positive results are unconfirmed and should not be used fornon-medical purposes. Amphetamine Screen Urine Not Detected Not Detect [facility] Comment:Amphetamine cut-off is 1000 ng/mL.Positive results are unconfirmed and should not be used fornon-medical purposes. Benzodiazepines Screen Urine Not Detected Not Detect [facility] Comment:Benzodiazepine cut-o ff is 200 ng/mL.Positive results are unconfirmed and should not be used fornon-medical purposes. Cocaine Screen Urine Not Detected Not Detect [facility] Comment:Cocaine cut-off is 3 00 ng/mL.Positive results are unconfirmed and should not be used fornon-medical purposes. Cannabinoid Screen Urine Not Detected Not Detect [facility] Comment:Cannabinoid cut-off is 50 ng/mL.Positive results are unconfirmed and should not be used fornon-medical purposes. Methadone Screen, Urine Not Detected Not Detect ng/mL [facility] Comment:Methadone cut-off is 300 ng/mL.Positive results are unconfirmed and should not be used fornon-medical purposes. FENTANYL URINE Not Detected Not Detect [facility] Comment:Fentanyl cut-off is 1 ng/mL.Positive results are unconfirmed and should not be used fornon-medical purposes. Oxycodone Urine Screen Not Detected Not Detect ng/mL [facility] Comment:Oxycodone cut-off is 100 ng/mL.Positive results are unconfirmed and should not be used fornon-medical purposes. Buprenorphine Screen Not Detected Not Detect ng/mL [facility] Comment:Buprenorphine cut-of f is 5 ng/mL.Positive results are unconfirmed and should not be used fornon-medical purposes. 07/02/2025 12:0 6 AM EDT 07/02/2025 12:22 AM EDT us Generic External Data Provider LAB URINE ORDERAB LES Final Result [facility] [address] [place] [address] [phone] * Slide Review (07/01/2025 11:13 PM EDT) Only the most recent of4 resultswithin the time period is included. Slide Review MANUAL DIFF [facility] 07/01/2025 11:1 3 PM EDT 07/01/2025 11:21 PM EDT us Generic External Data Provider LAB BLOOD ORDERAB LES Final Result [facility] [address], [place] [phone] * (ABNORMAL) Complete Blood Count Manual Diff (07/01/2025 11:13 PM EDT) White Blood Count 1.4(L) 4.8 - 10.8 X10*3/uL [facility] Red Blood Count 3.15(L) 4.60 - 5.80 X10*6/uL [facility] Hemoglobin 7.7(L) 14.0 - 18.0 g/dl [facility] Hematocrit 25.2(L) 42.0 - 52.0 % [facility] Mean Corpuscular Volume 80.0 80.0 - 98.0 fL [facility] Mean Corpuscular Hemoglobin 24.4(L) 27.0 - 33.0 pg [facility] Mean Corpuscular HGB Conc 30.6(L) 31.0 - 36.0 g/dl [facility] Red Cell Distribution Width 16.0 11.0 - 16.0 % [facility] Platelet Count 22(L) 160 - 400 X10*3/uL [facility] NRBC Pct Auto 0.0 0.0 - 0.2 /100WBC [facility] NRBC Abs Auto 0.000 0.0 - 0.012 X10*3/uL [facility] Neutrophils % Manual 70 45 - 73 % [facility] Band Neutrophils Percent 0(L) 3 - 5 % [facility] Lymphocytes Percent Manual 26 20 - 40 % [facility] Monocytes Percent Manual 4 2 - 11 % [facility] NEUTROPHILS ABSOLUTE MANUAL 1.0(L) 2.0 - 8.3 X10*3/uL [facility] LYMPHOCYTES ABSOLUTE MANUAL 0.4(L) 1.2 - 4.9 X10*3/uL [facility] MONOCYTES ABSOLUTE MANUAL 0.1 0.1 - 1.2 X10*3/uL [facility] Platelet Estimate NORMAL NORMAL [facility] Platelet Morphology Comment NORMAL [facility] RBC Morphology NOTED [facility] Tear Drop Cells 1+ (0-2) /OIF [facility] Ovalocytes 1+ (5-14) /F [facility] [place] Cells 1+ (0-2) /F [facility] Schistocytes 1+ (0-2) /[facility] 07/01/2025 11:1 3 PM EDT 07/01/2025 11:21 PM EDT Generic External Data Provider LAB BLOOD ORDERAB LES Final Result Performing Organization Address [facility]/ZIP Co de Phone Number [facility] [address] [place] [phone] * Ethanol (07/01/2025 11:13 PM EDT) Only the most recent of2 resultswithin the time period is included. ETHANOL (MG/DL) IN SER/PLAS <10 mg/dL [facility] Comment:Serum/plasma ethanol results are to be used formedical/treatment purposes only. 07/01/2025 11:1 3 PM EDT 07/01/2025 11:21 PM EDT us Generic External Data Provider LAB BLOOD ORDERAB LES Final Result Performing Organization Address [facility]/ZIP Co de Phone Number [facility] [address] [place] [phone] * SARS-CoV-2 RNA, Influenza A/B, and RSV RNA, Ql NAAT (07/01/2025 11:13 PM EDT) Only the most recent of2 resultswithin the time period is included. Influenza A PCR NEGATIVE Negative [facility] Influenza B PCR NEGATIVE Negative [facility] Resp Syncy Virus RNA Qual PCR NEGATIVE Negative [facility] SARS COV2 PCR NEGATIVE Negative [facility] Comment:All test results mus t [...] use by authorized laboratories.Testing performed on the Polyplus-transfection GeneXpert utilizingreal-time RT-PCR.All SARS CoV2 and positive influenza A/B results arereported to [facility]. 07/01/2025 11:1 3 PM EDT 07/01/2025 11:21 PM EDT Generic External Data Provider LAB MICROBIOLOGY - GENERAL ORDERABLES Final Result Performing Organization Address [facility] de Phone Number [facility] [address] [place] [phone] * Magnesium (07/01/2025 11:13 PM EDT) Magnesium 2.0 1.6 - 2.6 mg/dL [facility] 07/01/2025 11:1 3 PM EDT 07/01/2025 11:21 PM EDT Generic External Data Provider LAB BLOOD ORDERAB LES Final Result Performing Organization Address [facility] de Phone Number [facility] [address] [place] [phone] * XR Humerus Left (06/25/2025 11:38 AM EDT) Anatomical Region Laterality Modality Upper Extremities, Humerus Left Radio graphic Imaging 06/25/2025 11:3 8 AM EDT Narrative 06/25/2025 11:48 AM EDT [address] [address] XRay Report Signed Patient: Adelso Beebe MR#: [id number] : 1960 Acct:[id number] Age/Sex: 64 / M ADM Date: 06/25/25 Loc: HO.ED Attending Dr: Ordering Physician: Cash Reno MD Date of Service: 06/25/25 Procedure(s): XR humerus LT Accession Number(s): [id number] cc: Cash Reno MD; Leta Soto MD [...] 06/25/25 1145 DD/ 1138 TD/TT: 06/25/25 1138 Primary Care Nurse Practitioner: Procedure Note Donotuseinterpreter, Image - 06/25/2025 [place] [address] XRay Report Signed Patient: Adelso BeebeMR#: [id number] : 1960cct:[id number] Age/Sex: 64 / MADM Date: 06/25/25 Loc: HO.ED Attending Dr: Ordering Physician: Cash Reno MD Date of Service: 06/25/25 Procedure(s): XR humerus LT Accession Number(s): [id number] cc: Cash Reno MD; Leta Soto MD [...] 06/25/25 1145 DD/ 1138 TD/TT: 06/25/25 1138 Primary Care Nurse Practitioner: [facility] External Provider IMG XR PROCEDURES Edited Result - Final * POCT Glucose (06/09/2025 11:04 AM EDT) Glucose Blood, POC 107 60 - 200 mg/dL QC Media Lot # [id number] Lot# Expiration Date [id number] Blood Capillary blood specimen / Unknown 06/09/2025 11:04 AM EDT Leta Dick MD POINT OF CARE ANCELMO T ENTER/EDIT ORDERABLES Final Result * Lipase (06/04/2025 2:25 PM EDT) Lipase 20 8 - 78 U/L [facility] 06/04/2025 2:25 PM EDT 06/04/2025 2:29 PM EDT Generic External Data Provider LAB BLOOD ORDERAB LES Final Result [facility] [address] [place] [phone] * Hepatic Function Panel (06/04/2025 2:25 PM EDT) Bilirubin, Direct 0.5 0.0 - 0.5 mg/dL [facility] 06/04/2025 2:25 PM EDT 06/04/2025 2:29 PM EDT us Generic External Data Provider LAB BLOOD ORDERAB LES Final Result [facility] [address] [place] [phone] * Hematoxylin and Eosin Stain (05/21/2025 2:15 PM EDT) 05/21/2025 2:15 PM EDT 05/21/2025 2:50 PM EDT Narrative [facility] - 05/25/2025 5:25 PM EDT ----- ------- Name: Adelso Beebe Age/Sex: 64/M : 1960 Unit#: [id number] Attend Dr: Yajaira Antonio MD Re05/21/25 Status: [facility] [place] Location: [facility] Disch: ----- ------- SPEC : [id number] RECD: 05/21/25254 STATUS: OUMOU FONSECA NUM: [id number] CASSI: 05/21/25-[address] [facility] DR: Yajaira Antonio MD ENTERED: 05/21/25-2739 SP TYPE: Surgical OTHR DR: Leta Soto [...] microscopic examination, 6 pieces in cassette A. ([facility]) Special studies ordered and performed: Immunostain for H. pylori; AB/PAS stains IHC S/NG Disclaimer NOTE: Unless otherwise stated, all tissue is formalin-fixed and paraffin-embedded. Some or all of the immunohistochemical tests reported herein may have been developed and their performance characteristics determined by [facility]. They have not been cleared or approved by the U.S. Food and Drug Administration (FDA). However, the FDA has determined that such clearance or approval is not necessary. This laboratory is certified under the Clinical Laboratory Improvement Amendments of 1988 (CLIA) as qualified to perform high complexity clinical laboratory testing. Copies To: Leta Soto MD [address] [place] [id number] CONTINUED ON NEXT PAGE ----- ------- Name: Adelso Beebe Age/Sex: 64/M : 1960 Unit#: [id number] Attend Dr: Yajaira Antonio MD Re05/21/25 Status: [facility] [place] Location: [facility] Disch: ----- ------- SPEC : [id number] RECD: 05/21/25 STATUS: OUMOU FONSECA NUM: [id number] CASSI: 05/21/[address] [facility] DR: Yajaira Antonio MD ENTERED: 05/21/25 SP TYPE: Surgical OTHR DR: Leta Soto MD ORDERED: HE Stain/3, Gross Micro L4, IHC, Special st. 2, H. pylori, AB/PAS Copies To: (Continued) Yajaira Antonio MD [facility] [address] [place] [phone] [email or web address] ----- ------- Signed (signature on file) Raul Blunt MD 05/25/25 9260 ----- ------- END OF REPORT us Generic External Data Provider LAB BLOOD ORDERAB LES Final Result [facility] [address] [place] [phone] * Pheresis Platelets (05/20/2025 10:46 AM EDT) Pathologist [facility] Pheresis Platelets [id number] AP PHPLT TRANSFUSED 05/21/25 1333 [id number] AP PHPLT TRANSFUSED 05/21/25 1223 [facility] 05/20/2025 10:4 6 AM EDT 05/20/2025 11:19 AM EDT Generic External Data Provider LAB BLOOD BANK TE ST ORDERABLES Final Result Performing Organization Address [facility]/ZIP Co de Phone Number [facility] [address] [place] [phone] * (ABNORMAL) B Type Natriuretic Peptide (BNP) (05/15/2025 2:19 PM EDT) [facility] B Type Natriuretic Peptide 178(H) <100 pg/mL [facility] 05/15/2025 2:19 PM EDT 05/15/2025 2:33 PM EDT Generic External Data Provider LAB BLOOD ORDERAB LES Final Result Performing Organization Address [facility] Co de Phone Number [facility] [address] [place] [phone] * HIV-1 RNA, Quantitative, Real-Time PCR (04/21/2025 10:43 AM EDT) [facility] HIV RNA PCR Qn Copies NOT DETECTED NOT DETECTED copies/mL [facility] HIV RNA PCR Qn Log Copies NOT DETECTED NOT DETECTED [facility] Comment:Result Units: Log co pies/mLThis test was performed using Real-Time Polymerase ChainReaction.Reportable Range: 20 copies/mL to 10,000,000 copies/mL(1.30 log copies/mL to 7.00 log copies/mL).THIS TEST WAS PERFORMED AT:[facility] [place] [id number] STRICKLAND MD 04/21/2025 10:4 3 AM EDT 04/21/2025 1:18 PM EDT us Leta Dick MD LAB BLOOD ORDERAB LES Final Result Performing Organization Address [facility] Co de Phone Number [facility] [address] [place] [phone] * Lipid Panel, Standard (04/06/2023 10:00 AM EDT) Triglycerides 94 mg/dL [facility] Comment:Desirable Triglyceri de: less than 150 mg/dLBorderline High Triglyceride 150-199 mg/dLHigh Triglyceride: 200-499 mg/dLVery High Triglyceride: greater than or equal to 5OO mg/dL Cholesterol 79 mg/dL [facility] Comment:Desirable Cholestero l: less than 200 mg/dLBorderline High Cholesterol: 200-239 mg/dLHigh Cholesterol: greater than 239 mg/dL LDL Cholesterol Calculated 36 mg/dl [facility] Comment:Desirable LDL: less than 100 mg/dLNear Optimal/Above Optimal LDL: 110- 129 mg/dLBorderline High LDL: 130-159 mg/dLHigh LDL: 160-189 mg/dLVery High LDL: greater than or equal to 190 mg/dL HDL Cholesterol 25 mg/dL [facility] Comment:Desirable HDL: great er than 40 mg/dL Note: This HDL assay may give artificially low results in patients with liver disease. Blood Venous blood specimen / Unknown 04/06/2023 10:00 AM EDT 04/06/2023 11:20 AM EDT us Ann MOISE LAB BLOOD ORDERABLES Final Resul t Performing Organization Address [facility]/ZIP Co de Phone Number [facility] [address] [place] [phone] from Last 3 Months or Most Recently Relevant to Health Maintenance [place] [address] [place] [address] C3 Care Teams [employer] Scout Relationship Specialty Start Date End Date Leta Soto MD [address] [place] [address] [phone] PCP - General Internal Medicine 04/11/23 Yajaira Antonio [address] [place] [address] Drive 3[address] [place], [place] [phone] Gastroenterology 09/04/24 [facility] 01/28/25
--- OUTSIDE RECORDS SUMMARY | 2025-08-14 20:03 | XMS_ITS | Encounter Summary ---
Author Organization [employer] Address [address] [place] [address] Care Team Providers Care Bobcat Driver/Labor Name Role Phone Leta Soto MD Primary Care Pro vider Yajaira Antonio Unavailable Encounter Details Date Type Department Care Team (Late st Contact Info) Description 04/21/2025 Orders Only [facility] [address] [place] [phone] Imelda Pfeiffer, CHANDU [address] [place] [address] Healthcare maintenance Social History Tobacco Use Types [...] Description 08/21/2025 10:00 AM EST Clinical Support [facility] [address] [place] [phone] 09/24/2025 10:15 AM EST Office Visit [address] [address] Leta Soto MD [address] [place] [phone] Scheduled Orders Name Type Priority Associated Diagnoses [...] <15 NOT DETECTED NOT DETECTED IU/mL [facility] HCV Log PCR <1.18 NOT DETECTED NOT DETECTED Log IU/mL [facility] Comment:For additional infor mation, please refer tohttp://education.eSoft/faq/UTF04i6(This link is being provided for informational/educational purposes only.)THIS TEST WAS PERFORMED AT:[employer] [place] [id number] STRICKLAND MD 04/21/2025 10:4 3 AM EDT 04/22/2025 8:54 AM EDT us Leta Dick MD LAB BLOOD ORDERAB LES Final Result Performing Organization Address City/[facility]/ZIP Co de Phone Number [facility] [address] [place] [phone] * HIV-1 RNA, Quantitative, Real-Time PCR (04/21/2025 10:43 AM EDT) HIV RNA PCR Qn Copies NOT DETECTED NOT DETECTED copies/mL [facility] HIV RNA PCR Qn Log Copies NOT DETECTED NOT DETECTED [facility] Comment:Result Units: Log co pies/mLThis test was performed using Real-Time Polymerase ChainReaction.Reportable Range: 20 copies/mL to 10,000,000 copies/mL(1.30 log copies/mL to 7.00 log copies/mL).THIS TEST WAS PERFORMED AT:[employer] [address] [phone] STRICKLAND MD 04/21/2025 10:4 3 AM EDT 04/21/2025 1:18 PM EDT us Leta Dick MD LAB BLOOD ORDERAB LES Final Result Performing Organization Address [facility] Co de Phone Number [facility] [address] [place] [phone] * RPR (Monitor) with Reflex to??Titer (04/21/2025 10:43 AM EDT) RPR (Monitor) w/Refl Titer NON-REACTI VE NON-REACT [place] [facility] Comment:THIS TEST WAS PERFOR MED AT:[employer] [place] [id number] STRICKLAND MD Rapid Plasma Reagin Ab Titer TNP [facility] 04/21/2025 10:4 3 AM EDT 04/21/2025 1:18 PM EDT us Leta Dick MD LAB BLOOD ORDERAB LES Final Result Performing Organization Address [facility]/ZIP Co de Phone Number [facility] [address] [place] [phone] * (ABNORMAL) Hepatitis C Antibody with Reflex to HCV, RNA, Quantitative, Real- Time PCR (04/21/2025 10:43 AM EDT) Hepatitis C Antibody Reactive( A) Nonreactive [facility] Comment:Presumptive evidence of antibodies to HCV. 04/21/2025 10:4 3 AM EDT 04/21/2025 1:18 PM EDT us Leta Dick MD LAB BLOOD ORDERAB LES Final Result Performing Organization Address [facility] Co de Phone Number [facility] [address] [place] [phone] * Syphilis Screen (04/21/2025 10:43 AM EDT) Syphilis Screen Nonreactive Nonreactive [facility] 04/21/2025 10:4 3 AM EDT 04/21/2025 1:18 PM EDT us Leta Dick MD LAB BLOOD ORDERAB LES Final Result Performing Organization Address [facility] Co de Phone Number [facility] [address] [place] [phone] documented in this encounter Visit Diagnoses Diagnosis Healthcare maintenance documented in this encounter Additional Health Concerns Assessment Noted Time PHQ-9 Depression Total Score: 0 03/12/20 25 10:25 AM EDT documented as of this encounter Care Teams Bobcat Driver/Labor Relationship Specialty Start Date End Date Leta Soto MD [address] [place] [phone] PCP - General Internal Medicine 04/11/23 Yajaira Antonio [address] [place] [address] Gastroenterology 09/04/24 [facility] 01/28/25 documented as of this encounter
--- OUTSIDE RECORDS SUMMARY | 2025-08-14 20:03 | XMS_ITS | Encounter Summary ---
Author Organization [employer] Address 75 [facility] 7t [place] [address] Care Team Providers Care Honing Job Setter Name Role Phone Leta Soto MD Primary Care Pro vider Yajaira Antonio Unavailable Encounter Details Date Type Department Care Team (Late st Contact Info) Description 08/10/2025 Orders Only [facility] [address] [place] [address] Leta Soto MD [address] [place] [address] Social History Tobacco Use Types Packs/Day Years [...] 08/26/25 at 1 PM with GI at [facility] and that pt needsto bring someone [...] of the above , pt was at [facility] and w a friend Sandra informed both so pt can be reinforced in plan In regards UA done today is neg so no culture to be done -I am requesting [place] to fax UA result to [facility] as requested by them No indication for ATB for UTI -pt reports again to be asymptomatic w neg UA --- Addendum in 08/11/2025 pt came requesting a call to Azeb informing his UA result and my rec to not take ATB for urine I called [facility] [phone] today and informed RN of it documented in this encounter Plan of Treatment Upcoming Encounters Date Type Department Care Team (Late st Contact Info) Description 08/21/2025 10:00 AM EST Clinical Support [address] [address] 09/24/2025 10:15 AM EST Office Visit [address] [address] Leta Soto MD [address] [place] [address] documented as of this encounter Goals Goal [...] EST) Sodium 143 135 - 145 mmol/L [facility] Potassium 4.3 3.3 - 5.1 mmol/L [facility] Chloride 114(H) 96 - 108 mmol/L [facility] Carbon Dioxide 24 22 - 29 mmol/L [facility] Anion Gap 9(L) 12 - 20 [facility] Urea Nitrogen (BUN) 11 9 - 16 mg/dL [facility] Creatinine, Serum 0.85 0.5 - 1.4 mg/dL [facility] Estimated Glomerular Filt Rate >60 [facility] Comment:Chronic Kidney Disea se: Estimated GFR < 60 mL/min/1.46m1Kdwgld Kidney Disease: Estimated GFR < 15 mL/min/1.73m2 Glucose 90 60 - 115 mg/dL [facility] Calcium 8.5 8.4 - 10.2 mg/dL [facility] Bilirubin, Total 1.5(H) 0.0 - 1.0 mg/dL [facility] Aspartate Amino Transferase 46(H) 5 - 37 U/L [facility] Alanine Aminotransferase 33 0 - 40 U/L [facility] Total Protein 7.1 6.5 - 8.0 g/dL [facility] Albumin Level 3.5 3.5 - 5.0 g/dL [facility] Alkaline Phosphatase 145(H) 39 - 117 U/L [facility] 08/10/2025 11:1 7 AM EST 08/10/2025 1:06 PM EST us Generic External Data Provider LAB BLOOD ORDERAB LES Final Result [facility] [address] [place] [phone] * (ABNORMAL) CBC auto differential (08/10/2025 11:17 AM EST) White Blood Count 2.1(L) 4.8 - 10.8 X10*3/uL [facility] Red Blood Count 3.96(L) 4.60 - 5.80 X10*6/uL [facility] Hemoglobin 9.7(L) 14.0 - 18.0 g/dl [facility] Hematocrit 31.8(L) 42.0 - 52.0 % [facility] Mean Corpuscular Volume 80.3 80.0 - 98.0 fL [facility] Mean Corpuscular Hemoglobin 24.5(L) 27.0 - 33.0 pg [facility] Mean Corpuscular HGB Conc 30.5(L) 31.0 - 36.0 g/dl [facility] Red Cell Distribution Width 17.0(H) 11.0 - 16.0 % [facility] Platelet Count 24(L) 160 - 400 X10*3/uL [facility] Neutrophils Percent Auto 62.0 45 - 73 % [facility] Imm Gran Pct Auto 0.5(H) 0.0 - 0.4 % [facility] Lymphocytes Percent Auto 26.2 20 - 40 % [facility] Monocytes Percent Auto 8.9 2 - 11 % [facility] Eosinophils Percent Auto 1.9 0 - 4 % [facility] Basophils Percent Auto 0.5 0 - 2 % [facility] NRBC Pct Auto 0.0 0.0 - 0.2 /100WBC [facility] Neutrophils Absolute Auto 1.3(L) 2.0 - 8.3 x10*3/uL [facility] Imm Gran Abs Auto 0.01 0.00 - 0.03 X10*3/uL [facility] Lymphocytes Absolute Auto 0.6(L) 1.2 - 4.9 X10*3/uL [facility] Monocytes Absolute Auto 0.2 0.1 - 1.2 X10*3/uL [facility] Eosinophils Absolute Auto 0.0 0.0 - 0.4 X10*3/uL [facility] Basophils Absolute Auto 0.0 0.0 - 0.2 X10*3/uL [facility] NRBC Abs Auto 0.000 0.0 - 0.012 X10*3/uL [facility] 08/10/2025 11:1 7 AM EST 08/10/2025 1:06 PM EST us Generic External Data Provider LAB BLOOD ORDERAB LES Edited Result - Final [facility] [address] [place] [phone] [phone] documented in this encounter Visit Diagnoses Not on filedocumented in this encounter Additional Health Concerns Assessment Noted Time PHQ-9 Depression Total Score: 0 03/12/20 25 10:25 AM EDT documented as of this encounter Care Teams Honing Job Setter Relationship Specialty Start Date End Date Leta Soto MD [address] [place] [address] PCP - General Internal Medicine 04/11/23 Yajaira Antonio [address]rd [place] [address] Gastroenterology 09/04/24 [facility] 01/28/25 documented as of this encounter
--- OUTSIDE RECORDS SUMMARY | 2025-08-14 20:03 | XMS_ITS | Encounter Summary ---
Author Organization [employer] Address 75 [facility] 7t [place] [address] Care Team Providers Care Manager Search Name Role Phone Leta Soto MD Primary Care Pro vider Yajaira Antonio Unavailable Encounter Details Date Type Department Care Team (Late st Contact Info) Description 07/31/2025 Telephone [facility] [address] [place] [address] Leta Soto MD [address] [place] [address] Social History Tobacco Use Types Packs/Day Years [...] Description 08/21/2025 10:00 AM EST Clinical Support [facility] [address] [place] [address] 09/24/2025 10:15 AM EST Office Visit [facility] [address] [place] [address] Leta oSto MD [address] [place] [address] documented as of this encounter Goals Goal [...] as of this encounter Care Teams Manager Search Relationship Specialty Start Date End Date Leta Soto MD [address] [place] [address] PCP - General Internal Medicine 04/11/[address] 3rd [place] [address] Gastroenterology 09/04/24 [facility] 01/28/25 documented as of this encounter
--- OUTSIDE RECORDS SUMMARY | 2025-08-14 20:03 | XMS_ITS ---
Author Organization [employer] Address 75 [facility] 7t [place] [address] Care Team Providers Care Exhibits Manager Name Role Phone Leta Soto MD Primary Care Pro vider Yajaira Antonio Unavailable [facility] Status:Outreach In Progress (Enrolling) Start date:11/27/2024 Enrollment reason:Referred by provider Overview PCP Referral- 63-year-old male with HCV cirrhosis and multiple hospitalizations for hepatic encephalopathy with ongoing homelessness, poor health literacy. Needs support managing specialist appointments. Please outreach for enrollment. Case Team Name Relationship Phone Chata Puente(Responsible Staff) [phone] [facility] Care [facility] Services Coordination
--- OUTSIDE RECORDS SUMMARY | 2025-08-14 20:03 | XMS_ITS ---
Author Organization [employer] Address 75 [facility] 7t [place] [address] Care Team Providers Care Photo Colorer Name Role Phone Leta Soto MD Primary [...] Phone Stanley Mckeon RN(Responsible Staff) Registered Nurse [phone] Continued Care and Services Coordination
--- OUTSIDE RECORDS SUMMARY | 2025-08-14 20:03 | XMS_ITS | Encounter Summary ---
Author Organization [employer] Address [address] [facility] [address] 7t [place] [address] Care Team Providers Care Para Educator Name Role Phone Leta Soto MD Primary Care Pro vider Yajaira Antonio Unavailable Reason for Visit * Reason Comments Med Refill Encounter Details Date Type Department Care Team (Late st Contact Info) Description 07/31/2025 Refill [facility] [address] [place] [address] Victoriano Beyer MD [address] [place], [place] [phone] Oral ulcer Social History Tobacco Use Types [...] Description 08/21/2025 10:00 AM EST Clinical Support [address] [address] 09/24/2025 10:15 AM EST Office Visit [address] [address] Leta Soto MD [address] [place] [address] documented as of this encounter Goals Goal [...] documented as of this encounter Care Teams Para Educator Relationship Specialty Start Date End Date Leta Soto MD [address] [place] [address] PCP - General Internal Medicine 04/11/[address] 3rd [place] [address] Gastroenterology 09/04/24 [facility] 01/28/25 documented as of this encounter
--- OUTSIDE RECORDS SUMMARY | 2025-08-14 20:03 | XMS_ITS | Encounter Summary ---
Author Organization [employer] Address 75 [facility] 7t [place] [address] Care Team Providers Care Route Clerk Name Role Phone Leta Soto MD Primary Care Pro vider Yajaira Antonio Unavailable Reason for Visit * Reason Onset Date Comments UA to [facility] 08/10/2025 Encounter Details Date Type Department Care Team (Late st Contact Info) Description 08/10/2025 Telephone [facility] [address] [place] [address] Leta Soto MD [address] [place], [place] [phone] UA to [facility] Social History Tobacco Use Types Packs/Day [...] Telephone Encounter - Nhung Caicedo [place] - 08/10/2025 2:36 PM EST Machine Shop Helper sent fax to [facility] at Fax # [phone] of last UA result done today 08/10/2025. * Telephone Encounter - Nhung Caicedo [place] - 08/10/2025 2:34 PM EST ----- Message from Leta Dick MD sent at 08/10/2025 1:45 PM EST ----- Please Nhung can you Fax to [facility] at Fax # [phone] last UA result done today 08/10/2025 Thanks documented in this encounter Plan of Treatment Upcoming Encounters Date Type Department Care Team (Late st Contact Info) Description 08/21/2025 10:00 AM EST Clinical Support [facility] [address] [place] [address] 09/24/2025 10:15 AM EST Office Visit [facility] [address] [place] [address] Leta Soto MD [address] [place] [address] documented as of this encounter Goals Goal [...] documented as of this encounter Care Teams Route Clerk Relationship Specialty Start Date End Date Leta Soto MD [address] [place] [address] PCP - General Internal Medicine 04/11/23 Yajaira Antonio [address] 3rd [place] [address] Gastroenterology 09/04/24 [facility] 01/28/25 documented as of this encounter
--- OUTSIDE RECORDS SUMMARY | 2025-08-14 20:03 | XMS_ITS | Encounter Summary ---
Author Organization [employer] Address [address] [facility] 7t [place] [address] Care Team Providers Care Communication Manager Name Role Phone Leta Soto MD Primary Care Pro vider Yajaira Antonio Unavailable Reason for Visit * Reason Onset Date Comments [facility]NA Referral 08/05/2025 Encounter Details Date Type Department Care Team (Late st Contact Info) Description 08/05/2025 Telephone [facility] [address] [place] [address] Yamel Khanna, CHANDU [address] [place] [address] VNA Referral Social History Tobacco Use Types [...] Telephone Encounter - Venice Hameed RN - 08/14/2025 12:28 PM EST Gave [facility]NA referral to [facility] liaison, pending review. * Telephone Encounter - Venice Hameed RN - 08/13/2025 3:34 PM EST Signed packet pending [facility] review. * Telephone Encounter - Yamel Khanna RN - 08/05/2025 2:16 PM EST Per PCP, pt needs referral for [facility]NA. Order generated and placed on PCP's desk. Pending signature. documented in this encounter Plan of Treatment Upcoming Encounters Date Type Department Care Team (Late st Contact Info) Description 08/21/2025 10:00 AM EST Clinical Support [facility] [address] [place] [address] 09/24/2025 10:15 AM EST Office Visit [facility] [address] [place] [address] Leta Soto MD [address] [place] [address] documented as of this encounter Goals Goal [...] documented as of this encounter Care Teams Communication Manager Relationship Specialty Start Date End Date Leta Soto MD [address] [place] [address] PCP - General Internal Medicine 04/11/23 Yajaira Antonio [address] [place] [address] Drive 3rd [place] [address] Gastroenterology 09/04/24 [facility] 01/28/25 documented as of this encounter
--- OUTSIDE RECORDS SUMMARY | 2025-08-14 20:03 | XMS_ITS | Encounter Summary ---
Author Organization [employer] Address 75 [facility] 7t [place] [address] Care Team Providers Care Computer Education Teacher Name Role Phone Leta Soto MD Primary Care Pro vider Yajaira Antonio Unavailable Encounter Details Date Type Department Care Team (Late st Contact Info) Description 12/17/2023 Orders Only [facility] [address] [place] [address] Tatyana Mosquera FNP [address] [place] [address] Social History Tobacco Use Types Packs/Day Years [...] Description 08/21/2025 10:00 AM EST Clinical Support [facility] [address] [place] [address] 09/24/2025 10:15 AM EST Office Visit [facility] [address] [place] [address] Leta Soto MD [address] [place] [address] documented as of this encounter Goals Goal [...] as of this encounter Care Teams Computer Education Teacher Relationship Specialty Start Date End Date Leta Soto MD [address] [place] [address] PCP - General Internal Medicine 04/11/23 Yajaira Antonio [address] [place] [address] Drive 3rd [place] [address] Gastroenterology 09/04/24 [facility] 01/28/25 documented as of this encounter
--- OUTSIDE RECORDS SUMMARY | 2025-08-14 20:03 | XMS_ITS | Encounter Summary ---
Author Organization [employer] Address 75 [facility] 7t [place] [address] Care Team Providers Care Thermodynamicist Name Role Phone Leta Soto MD Primary Care Pro vider PacoYajaira Unavailable Reason for Visit * Reason Onset Date Comments Hospital Follow-up 07/16/2025 Encounter Details Date Type Department Care Team (Late st Contact Info) Description 07/16/2025 Telephone [facility] [address] [place] [address] Leta Soto MD 230 [place], [place] [phone] Hospital Follow-up Social History Tobacco Use Types [...] from pt requesting a HDF appt. Hospital: [facility] Date of admission: 07/12/25 Discharge date: 07/15/25 Diagnosed: anemia , upper GI bleed *Send message to [facility] Clinical Care Coordinators documented in this encounter Plan of Treatment Upcoming Encounters Date Type Department Care Team (Late st Contact Info) Description 08/21/2025 10:00 AM EST Clinical Support [facility] [address] [place] [phone] 09/24/2025 10:15 AM EST Office Visit [facility] [address] [place] [address] Leta Soto MD [address] [place] [address] [phone] documented as of this encounter Goals Goal [...] documented as of this encounter Care Teams Thermodynamicist Relationship Specialty Start Date End Date Leta Soto MD [address] [place] [address] PCP - General Internal Medicine 04/11/23 Yajaira Antonio [address] [place] [address] 3rd [place] [address] Gastroenterology 09/04/24 [facility] 01/28/25 documented as of this encounter
--- OUTSIDE RECORDS SUMMARY | 2025-08-14 20:03 | XMS_ITS | Encounter Summary ---
Author Organization [employer] Address [address] [facility] [address] 7t [place] [address] Care Team Providers Care Rn Compliance Name Role Phone Leta Soto MD Primary Care Pro vider Yajaira Antonio Unavailable Reason for Visit * Reason Comments Med Refill Encounter Details Date Type Department Care Team (Late st Contact Info) Description 07/29/2025 Refill [facility] [address] [place] [address] Victoriano Beyer MD [address] [place] [address] Oral ulcer Social History Tobacco Use Types [...] 2:57 PM EST Called pt via BLS [phone]. Pt states that his mouth ulcer has resolved after he took the liquid medication. Reminded pt of upcoming 08/05/25 appointment. Pt verbalized understanding. documented in this encounter Plan of Treatment Upcoming Encounters Date Type Department Care Team (Late st Contact Info) Description 08/21/2025 10:00 AM EST Clinical Support [facility] [address] [place] [phone] 09/24/2025 10:15 AM EST Office Visit [facility] [address] [place] [phone] Leta Soto MD [address] [place] [address] documented as of this encounter Goals Goal [...] as of this encounter Care Teams Rn Compliance Relationship Specialty Start Date End Date Leta Soto MD [address] [place] [address] PCP - General Internal Medicine 04/11/23 Yajaira Antonio [address] [place] [address] 3rd [place] [address] Gastroenterology 09/04/24 [facility] 01/28/25 documented as of this encounter
--- OUTSIDE RECORDS SUMMARY | 2025-08-14 20:03 | XMS_ITS | Encounter Summary ---
Author Organization [employer] Address [address] [facility] 7t [place] [address] Care Team Providers Care Tobacco Acreage Measurer Name Role Phone Leta Soto MD Primary Care Pro vider Yajaira Antonio Unavailable Encounter Details Date Type Department Care Team (Late st Contact Info) Description 08/10/2025 Patient Outreach [facility] [address] [place] [address] Leta Soto MD [address] [place] [address] Social History Tobacco Use Types Packs/Day Years [...] 08/26/25 at 1 PM with GI at [facility]. Call to GI: CHW will contact [...] Description 08/21/2025 10:00 AM EST Clinical Support [facility] [address] [place] [phone] 09/24/2025 10:15 AM EST Office Visit [facility] [address] [place] [address] Leta Soto MD [address] [place] [address] documented as of this encounter Goals Goal [...] documented as of this encounter Care Teams Tobacco Acreage Measurer Relationship Specialty Start Date End Date Leta Soto MD [address] [place] [address] PCP - General Internal Medicine 04/11/23 Yajaira Antonio [address] [place] [address] 3rd [place] [address] Gastroenterology 09/04/24 [facility] 01/28/25 documented as of this encounter
--- OUTSIDE RECORDS SUMMARY | 2025-08-14 20:03 | XMS_ITS | Encounter Summary ---
Author Organization [employer] Address 75 [facility] 7t [place] [address] Care Team Providers Care Nurse Practitioner Manager Name Role Phone Leta Soto MD Primary Care Pro vider Yajaira Antonio Unavailable Encounter Details Date Type Department Care Team (Late st Contact Info) Description 11/11/2024 Telephone [facility] [address] [place] [address] Leta Soto MD [address] [place] [address] Social History Tobacco Use Types Packs/Day Years [...] 12:27 PM EST Tc from [facility] residential case manager requesting the status on pt documented in this encounter Plan of Treatment Upcoming Encounters Date Type Department Care Team (Late st Contact Info) Description 08/21/2025 10:00 AM EST Clinical Support [facility] [address] [place] [address] 09/24/2025 10:15 AM EST Office Visit [facility] [address] [place] [address] Leta Soto MD [address] [place] [address] documented as of this encounter Goals Goal [...] documented as of this encounter Care Teams Nurse Practitioner Manager Relationship Specialty Start Date End Date Leta Soto MD [address] [place] [address] PCP - General Internal Medicine 04/11/23 Yajaira Antonio [address] [place] [address] 3rd [place] [address] Gastroenterology 09/04/24 [facility] 01/28/25 documented as of this encounter
--- NOTE | 2025-08-14 22:48 | MHC.CM.ED ---
Dr. Yu asked CM to do a records review and determine if patient was discharged with services after his [facility] admission 07/13-07/15. Pt is slightly confused. Hx encephalopathy d/t liver cirrhois from Hep C. Hepatic encephalopathy. Varices. Pt has had multiple hospitalizations at [facility]. CM met with patient with medical translator as pt is Setswana speaking. Pt was able to verify is address, his WOODWORKING MACHINIST daily and that he attends a day program in [place] from 7-1pm. States he has breakfast and lunch and gets transportation to and from Adult day care. Pt lives at the detention at [address] [place] [address] in [place]. He uses no DME. His WOODWORKING MACHINIST helps with cleaning an ADL's. PCP is Leat Dick. His HCP on file is Eugenia Dick ([phone]). Pt tells CM that she is his niece. D/C plan is return to detention via BLS after IV fluids and lactulose. Pt is agreeable.
[2025-08-14 23:23] VITALS: BP 164/57; PULSE 87; RESP 18; TEMP 36.6; O2SAT 97
[2025-08-14 23:38] VITALS: BP 164/57; PULSE 87; RESP 18; TEMP 36.6; O2SAT 97
== END 2025-08-14 23:50 | disposition home or self-care (01) ==
PROVIDERS: Emergency Provider Student in an Organized Health Care Education/Training Program
DX: R41.82 Altered mental status, unspecified (principal); R11.0 Nausea; F17.210 Nicotine dependence, cigarettes, uncomplicated; Z79.899 Other long term (current) drug therapy
CPT/HCPCS: 36415; 80053; 82140; 82248; 83605; 84484; 85025; 96360; 99284

== ENCOUNTER 2025-08-15 15:13 | Emergency (ER) | payer MEDICAID, SELFPAY ==
--- NOTE | 2025-08-15 15:21 | ED.GENADULT ---
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 EMS reports elevated BP reading. Patient is seen frequently in this ED for similar complaints, is minimally compliant with his lactulose. Seen here yesterday, including case management involvement. He has a MIXING MACHINE FEEDER that comes to see him daily. Patient ambulating with steady gait on arrival to the ED and appears to be at his baseline. MD complaint: dizzy Related Data Home Medications ?Medication ?Instructions ?Recorded ?Confirmed blood pressure test kit-large #1 ea 05/27/25 (Omron Blood Pressure Monitor-3 Series kit) lactulose 10 gram/15 mL oral 40 g PO BID 06/04/25 07/13/25 solution Previous Rx's ?Medication ?Instructions ?Recorded walker #1 ea 02/08/25 amlodipine 5 mg tablet 5 mg PO DAILY #90 tabs 04/21/25 rifaximin 550 mg tablet (Xifaxan) 550 mg PO BID 90 days #180 tabs 05/27/25 levofloxacin 750 mg tablet 750 mg PO DAILY #4 tabs 07/15/25 omeprazole 40 mg capsule,delayed 40 mg PO DAILY #60 caps 07/15/25 release levofloxacin 500 mg tablet 500 mg PO DAILY 7 days #7 tabs 08/06/25 Allergies Allergy/AdvReac Type Severity Reaction Status Date / Time dicyclomine (From Bentyl) Allergy Unknown Verified 08/15/25 15:56 aspirin AdvReac Severe stomach Verified 08/15/25 15:56 bleeding NSAIDS (Non-Steroidal AdvReac Severe liver Verified 08/15/25 15:56 Anti-Inflamma concerns Review of Systems Review of Systems: As per hPI Yes all other systems are reviewed and are negative Constitutional: Constitutional: Reports as per HPI PMFSH Past Medical History Medical History (Updated 08/15/25 @ 18:03 by Tanya De Santiago NP) Pancytopenia Falls frequently UGIB (upper gastrointestinal bleed) Portal vein thrombosis Eye abnormality Cirrhosis of liver Pancytopenia Hyperammonemia Pancytopenia Obesity (BMI 30.0-34.9) Fall Pancytopenia Hepatic encephalopathy Cirrhosis Splenic vein thrombosis Sepsis Cirrhosis of liver with ascites Abdominal pain Thrombocytopenia Pancytopenia Cirrhosis Hepatitis C virus infection Esophageal varices Pancytopenia Iron deficiency anemia Cirrhosis Hepatitis C HBP (high blood pressure) Surgical History (Updated 07/23/25 @ 00:01 by Florentino Ty) S/P TIPS (transjugular intrahepatic portosystemic shunt) H/O left inguinal hernia repair H/O eye surgery History of esophagogastroduodenoscopy (EGD) H/O colonoscopy Family History Family History Maternal Grandmother Breast CA Uterus cancer Mother Primary lung cancer of unknown cell type Social History Social History Household Members: None Household Members Other:: pt comes from a residential Housing: Homeless Housing Other:: residential Are you a primary career development associate to a significant other at home: No Do you presently have visiting nurse or other home services: Yes Alcohol intake: current Alcohol intake frequency: former alcohol drinker Comment: steady gait noted Patient Tobacco Use Status: Current everyday Tobacco user Tobacco use type: Cigarette Cigarette Packs Per Day: 1 Cigarettes Per Day: 0.5 Years Smoked: 45 e-Cigarette/Vaping Use: Never Used Second Hand Smoke Exposure: No Substance Use Type: Heroin Advance Directives: Yes Advance Directives on File: Yes Advance Directives Date on File: 04/02/24 service: No Current occupational status: retired Physical Exam ED Vital Signs: Vital Signs - 24 hr 08/15/25 15:53 Temperature 97.7 F Pulse Rate 73 Respiratory Rate 26 H Blood Pressure 152/45 H Pulse Oximetry 98 Oxygen Delivery Method Room Air BMI result Body Mass Index 24.4 Vital signs have been reviewed and appear to be correct. Blood pressure elevated. Heart rate normal. Respiratory rate mildly tachypneic. Temperature normal. Oxygen saturation normal. Const General: cooperative, no acute distress and ill appearing chronically Orientation/consciousness: oriented to person, oriented to place, oriented to time and patient oriented x3 Limitations: no limitations HENMT Head: Yes normocephalic and Yes atraumatic Ears: external ears normal General nose exam: Normal external nose present Face and sinus: Yes face symmetric Mouth: oropharynx normal and moist mucous membranes Throat: Yes uvula midline Eyes Pupils: Equal, round and reactive pupils present Neck Neck: Yes normal visual inspection and Yes supple Resp Effort & Inspection: normal respiratory effort and able to speak in complete sentences Auscultation: clear to auscultation bilaterally Cardio Rate: regular rate Rhythm: regular rhythm Heart sounds: S1 normal heart sound present and S2 normal heart sound present GI Palpation (GI): Soft to palpation and nontender Auscultation: normoactive bowel sounds General: Yes no CVA tenderness Back/Spine/Pelvis Back: no CVA tenderness Skin General skin exam: elasticity normal and turgor normal Neuro General: oriented to person, oriented to place, oriented to time, patient oriented x3, moves all extremities, no focal motor deficits and CN's II-XI intact bilaterally Cranial nerves: Yes Equal, round and reactive pupils present Cognition (Neuro): normal cognition Extrem General: Yes full ROM, Yes no calf tenderness and Yes pedal edema (1+ pitting) Medical Decision Making Medical Decision Making MDM Narrative: Patient is a 64-year-old male with history of 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 On exam patient is awake, A+Ox3, VS WNL, afebrile, normal neurological exam without focal deficits, physical exam findings as above. Appears to be at his baseline. Given reported symptoms and physical exam findings, initial differential includes but is not limited to hepatic encephalopathy, anemia, electrolyte abnormality, hypertension, vertigo. Labs notable for pancytopenia, thrombocytopenia with a platelets at 18 which is close to his baseline, no significant electrolyte abnormalities, pneumonia significantly improved from visit yesterday. EKG shows normal sinus rhythm. Urinalysis is without evidence of infection. Feel patient is at his baseline and stable for discharge home at this time. Results discussed with patient and all questions answered. Advised follow up with PCP. Return precautions discussed. Patient verbalized understanding of and agreement with plan. In-person distributed energy systems consultant was utilized for all interactions, assessments, and discussions. Differential Diagnosis Differential Diagnoses: The differential diagnosis associated with the presentation includes as per [facility] Admission/Observation Consideration of admission/observation: Escalation of care including admission/observation considered Patient would have been admitted to the hospital and transferred to appropriate facility had their clinical presentation warranted hospital admission. Lab Data [facility] Lab Attestation statement: I reviewed the patient's lab results. as per [facility] 08/15/25 16:11 08/15/25 16:11 Labs: Lab Results 08/15/25 08/15/25 Range/Units 16:11 17:41 WBC 2.0 L (4.8-10.8) X10*3/uL RBC 3.65 L (4.60-5.80) X10*6/uL Hgb 9.0 L (14.0-18.0) g/dl Hct 29.5 L (42.0-52.0) % MCV 80.8 (80.0-98.0) fL MCH 24.7 L (27.0-33.0) pg MCHC 30.5 L (31.0-36.0) g/dl RDW 17.6 H (11.0-16.0) % Plt Count 18 L* (160-400) X10*3/uL MPV TNP Immature Gran % (Auto) 0.5 H (0.0-0.4) % Neut % (Auto) 65.3 (45-73) % Lymph % (Auto) 23.0 (20-40) % [place] % (Auto) 9.2 (2-11) % Eos % (Auto) 1.5 (0-4) % Baso % (Auto) 0.5 (0-2) % Lymph # (Auto) 0.5 L (1.2-4.9) X10*3/uL [place] # (Auto) 0.2 (0.1-1.2) X10*3/uL Eos # (Auto) 0.0 (0.0-0.4) X10*3/uL Baso # (Auto) 0.0 (0.0-0.2) X10*3/uL Abs Immat Gran (auto) 0.01 (0.00-0.03) X10*3/uL Absolute Neuts (auto) 1.3 L (2.0-8.3) x10*3/uL Absolute Nucleated RBC 0.000 (0.0-0.012) X10*3/uL Nucleated RBC % (auto) 0.0 (0.0-0.2) /100WBC Sodium 143 (135-145) mmol/L Potassium 4.4 (3.3-5.1) mmol/L Chloride 117 H (96-108) mmol/L Carbon Dioxide 21 L (22-29) mmol/L Anion Gap 9 L (12-20) BUN 12 (9-16) mg/dL Creatinine 0.76 (0.5-1.4) mg/dL Estim Creat Clear Calc 102.7 Estimated GFR > 60 Random Glucose 119 H (60-115) mg/dL Calcium 8.6 (8.4-10.2) mg/dL Total Bilirubin 1.5 H (0.0-1.0) mg/dL AST 39 H (5-37) U/L ALT 28 (0-40) U/L Alkaline Phosphatase 129 H (39-117) U/L Ammonia 51 (13-55) umol/L Troponin I High Sens 17.1 (<3.5-35.0) ng/L Total Protein 6.6 (6.5-8.0) g/dL Albumin 3.3 L (3.5-5.0) g/dL Urine Color Yellow Urine Appearance Clear Urine pH 5.5 (5.0-9.0) Ur Specific [place] 1.020 (1.005-1.025) Urine Protein Negative (Neg-Trace) mg/dL Urine Glucose (UA) Negative (Negative) mg/dL Urine Ketones Trace (Negative) mg/dL Urine Blood Negative (Negative) Urine Nitrite Negative (Negative) Ur Leukocyte Esterase Negative (Negative) Urine Opiates Screen Not Detected (Not Detect) Ur Buprenorphine Scrn Not Detected (Not Detect) ng/mL Ur Oxycodone Screen Not Detected (Not Detect) ng/mL Urine Methadone Screen Not Detected (Not Detect) ng/mL Urine Fentanyl Screen Not Detected (Not Detect) Ur Barbiturates Screen Not Detected (Not Detect) Ur Phencyclidine Scrn Not Detected (Not Detect) Ur Amphetamines Screen Not Detected (Not Detect) U Benzodiazepines Scrn Not Detected (Not Detect) Urine Cocaine Screen Not Detected (Not Detect) U Marijuana (THC) Screen Not Detected (Not Detect) Ethyl Alcohol 11 mg/dL Independent Interpretation I performed an independent interpretation of an: EKG (normal sinus rhythm, rate 73bpm,normal pr interval and qtc) External Record Review External record reviewed: Inpatient record, Office record and Outpatient record Discharge Plan Discharge Clinical Impression: Dizziness Patient Disposition: Home, Self-Care Instructions: Dizziness (ED) Additional Instructions: You have been evaluated in the emergency department today for dizziness. Your evaluation did not show evidence of conditions requiring emergent medical treatment at this time. Please follow up with your primary care provider within the next 3 days. Return to the emergency department immediately for worsening or uncontrolled symptoms, worsening headache, chest pain, shortness of breath, persistent vomiting, vision changes, fainting, or for any other concerning symptoms. Prescriptions: No Action (DME) walker Misc See Rx Instructions .Route Qty: 1 0RF Rx Instructions: As directed lactulose 10 gram/15 mL solution 40 g PO BID omeprazole 40 mg capsule,delayed release(DR/EC) 40 mg PO DAILY Qty: 60 0RF Rx Instructions: Take on capsule daily levofloxacin 750 mg tablet 750 mg PO DAILY Qty: 4 0RF Rx Instructions: Take one tablet daily for the next 4 days, starting on 07/16 and ending on 07/19 levofloxacin 500 mg tablet 500 mg PO DAILY 7 Days Qty: 7 0RF (DME) blood pressure test kit-large [Omron BP Monitor-3 Series] Kit See Rx Instructions .ROUTE DAILY Qty: 1 Rx Instructions: As directed Xifaxan 550 mg tablet 550 mg PO BID 90 Days Qty: 180 0RF amlodipine 5 mg tablet 5 mg PO DAILY Qty: 90 0RF Print Language: Irish
[2025-08-15 15:22] VITALS: BP 200/90; PULSE 84; O2SAT 98
--- NOTE | 2025-08-15 15:22 | ECG_ITS ---
Test Reason : DIZNESS Blood Pressure : */* mmHG Vent. Rate : 73 BPM Atrial Rate : 73 BPM P-R Int : 136 ms QRS Dur : 88 ms QT Int : 386 ms P-R-T Axes : 56 20 71 degrees QTcB Int : 425 ms Normal sinus rhythm Normal ECG When compared with ECG of 01-Aug-2025 13:11, No significant change was found Referred By: Tanya De Santiago Electronically Signed By: ЕКАТЕРИНА ZARAGOZA
[2025-08-15 15:53] VITALS: BP 152/45; PULSE 73; RESP 26; TEMP 36.5; O2SAT 98; BMI 24.4
--- OUTSIDE RECORDS SUMMARY | 2025-08-15 16:14 | XMS_ITS | Clinical Summary ---
Author Organization [employer] Address [address] [facility] [address] [place] [address] Care Team Providers Care Hotel Server Name Role Phone Leta Soto MD Primary [...] once established b. Patient may return to [facility] for medical needs until a PCP [...] Type Department Care Team Description 08/10/[address] [facility] [place] [address] Leta Soto MD UA to [facility] 08/10/2025 Orders Only [facility] [address] Leta Soto MD 08/10/2025 Patient Outreach [address] [address] Leta Soto MD 08/08/2025 Orders Only [address] [address] Leta Soto MD Urinary tract infection without hematuria, site unspecified (Primary Dx) 08/05/2025 10:15 AM EST Office Visit [facility] [place] [address] Leta Soto MD Cognitive impairment (Primary Dx); Essential hypertension; Anemia, unspecified type; Severe thrombocytopenia (CMS/HCC); Obesity due to excess calories without serious comorbidity, unspecified class; Other cirrhosis of liver (HCC); Healthcare maintenance; Hospital discharge follow-up; Homeless; Tobacco use 08/05/2025 Patient Outreach [facility] [place] [address] Leta Soto MD Care Coordination (CM/CHW outreach) 08/05/[address] [address] Yamel Khanna RN VNA Referral 08/05/2025 Travel 08/04/[address] [phone] Leta Soto MD chart prep 08/01/2025 Orders Only GENERIC EXTERNAL DATA DEPARTMENT Provider, Generic External Data 07/31/[address] [facility] [place] [address] Leta Soto MD 07/31/2025 Refill [place] [address] [place] [address] Leta Soto MD 07/31/2025 Refill [facility] [address] [place] [phone] Victoriano Beyer MD Oral ulcer 07/29/[address] [address] Leta Soto MD Medication Question 07/29/2025 Refill [facility] [address] [address] Victoriano Beyer MD Oral ulcer 07/20/2025 Orders Only GENERIC EXTERNAL DATA DEPARTMENT Provider, Generic External Data 07/16/2025 Patient Outreach [address] [address] Leta Soto MD Transition Of Care (Tcm) (HDF scheduled and SDOH screening completed on 03/12/25) 07/16/[address] [address] Leta Soto MD Hospital Follow-up 07/13/2025 Orders Only GENERIC EXTERNAL DATA DEPARTMENT Provider, Generic External Data 07/12/2025 Orders Only GENERIC EXTERNAL DATA DEPARTMENT Provider, Generic External Data 07/09/[address] [address] Leta Soto MD Letter for School/Work 07/02/2025 Orders Only GENERIC EXTERNAL DATA DEPARTMENT Provider, Generic External Data 07/01/2025 Orders Only GENERIC EXTERNAL DATA DEPARTMENT Provider, Generic External Data 07/01/[address] [place] [address] Leta Soto MD 06/25/2025 Orders Only [facility] External Provider, [facility] 06/25/[address] [address] Leta Soto MD FYI 06/12/[address] [address] Leta Soto MD gsssi 06/11/2025 Telephone [facility] [address] [place] [phone] Yamel Khanna RN 06/09/2025 9:45 AM EDT Office Visit [facility] [address] [place] [phone] Leta Soto MD Dizziness (Primary Dx); Essential hypertension; Other cirrhosis of liver (CMS/HCC); Hepatic encephalopathy (CMS/HCC); Healthcare maintenance 06/09/2025 Orders Only GENERIC EXTERNAL DATA DEPARTMENT Provider, Generic External Data 06/09/2025 Telephone [facility] [address] [place] [phone] Leta Soto MD ER Follow-up 06/09/2025 Travel 06/08/2025 Telephone [facility] [address] [place] [phone] Leta Soto MD chart prep 06/04/2025 Orders Only GENERIC EXTERNAL DATA DEPARTMENT Provider, Generic External Data 05/30/2025 10:40 AM EDT Office Visit [facility] [address] [place] [phone] Victoriano Beyer MD Oral ulcer (Primary Dx) 05/30/2025 Travel 05/22/2025 Orders Only [facility] External Provider, [facility] 05/21/2025 Orders Only GENERIC EXTERNAL [...] Description 08/21/2025 10:00 AM EST Clinical Support [facility] [address] [place] [address] [phone] 09/24/2025 10:15 AM EST Office Visit [facility] [address] [place] [address] [phone] Leta Soto MD [address] [place] [address] [phone] Health Maintenance Due Date Last Done Comments CT Colonography 1960 Colonoscopy 1960 Colorectal Cancer Screening 1960 FIT DNA/Cologuard 1960 FIT 1960 FOBT 1960 Sigmoidoscopy 1960 Hepatitis A Vaccines (1 of 2 - Risk 2-dose series) 1980 RSV Patients and Patients Aged 60 years or older (1 - Risk 50-74 years 1-dose series) 12/03/2011 Zoster Vaccines (1 of 2) 12/03/2011 COVID-19 Vaccine ( - 2024-2 6 season) 2025 Influenza Vaccine [...] AND SCREEN Routine 05/20/2025 10:46 AM EDT HIV 1 RNA, QUANTITATIVE REAL TIME PCR Routine 04/21/2025 10:43 AM EDT Healthcare maintenance LIPID PANEL, STANDARD Routine 04/06/2023 10:00 AM EDT Healthcare maintenance from Last 3 Months or Most Recently Relevant to Health Maintenance Results * Urinalysis, Complete, with Reflex to Culture (08/10/2025 11:17 AM EST) Color Urine Dark Yellow [facility] Appearance Urine Clear [facility] PH 6.5 5.0 - 9.0 [facility] Glucose Urine UA Negative Negative mg/dL [facility] Urine Blood Negative Negative [facility] Specific Garita - Urine 1.015 1.005 - 1.025 [facility] Urine Protein Negative Neg-Trace mg/dL [facility] Urine Ketones Trace Negative mg/dL [facility] Nitrite Urine Negative Negative [facility] Leukocyte Esterase Urine Negative Negative [facility] RBC Urine 0-2 0 - 2 /HPF [facility] Urine WBC 0-5 0 - 5 /HPF [facility] Urine Squamous Epithelial Cell 0-2 0 - 2 /HPF [facility] Urine Bacteria None Seen None Seen [facility] Hyaline Casts, Urine 0-2 0 - 2 /LPF [facility] Urine 08/10/2025 11:1 7 AM EST 08/10/2025 1:00 PM EST Narrative [facility] - 08/10/2025 1:33 PM EST Urine, Clean Catch us Leta Dick MD LAB URINE ORDERAB LES Final Result [facility] [address] [place] [phone] * (ABNORMAL) CBC auto differential (08/10/2025 11:17 AM EST) Only the most recent of7 resultswithin the time period is included. White Blood Count 2.1(L) 4.8 - 10.8 X10*3/uL [facility] Red Blood Count 3.96(L) 4.60 - 5.80 X10*6/uL [facility] Hemoglobin 9.7(L) 14.0 - 18.0 g/dl [facility] Hematocrit 31.8(L) 42.0 - 52.0 % [facility] Mean Corpuscular Volume 80.3 80.0 - 98.0 fL [facility] Mean Corpuscular Hemoglobin 24.5(L) 27.0 - 33.0 pg [facility] Mean Corpuscular HGB Conc 30.5(L) 31.0 - 36.0 g/dl [facility] Red Cell Distribution Width 17.0(H) 11.0 - 16.0 % [facility] Platelet Count 24(L) 160 - 400 X10*3/uL [facility] Neutrophils Percent Auto 62.0 45 - 73 % [facility] Imm Gran Pct Auto 0.5(H) 0.0 - 0.4 % [facility] Lymphocytes Percent Auto 26.2 20 - 40 % [facility] Monocytes Percent Auto 8.9 2 - 11 % [facility] Eosinophils Percent Auto 1.9 0 - 4 % [facility] Basophils Percent Auto 0.5 0 - 2 % [facility] NRBC Pct Auto 0.0 0.0 - 0.2 /100WBC [facility] Neutrophils Absolute Auto 1.3(L) 2.0 - 8.3 x10*3/uL [facility] Imm Gran Abs Auto 0.01 0.00 - 0.03 X10*3/uL [facility] Lymphocytes Absolute Auto 0.6(L) 1.2 - 4.9 X10*3/uL [facility] Monocytes Absolute Auto 0.2 0.1 - 1.2 X10*3/uL [facility] Eosinophils Absolute Auto 0.0 0.0 - 0.4 X10*3/uL [facility] Basophils Absolute Auto 0.0 0.0 - 0.2 X10*3/uL [facility] NRBC Abs Auto 0.000 0.0 - 0.012 X10*3/uL [facility] 08/10/2025 11:1 7 AM EST 08/10/2025 1:06 PM EST us Generic External Data Provider LAB BLOOD ORDERAB LES Edited Result - Final [facility] [address] [place] [phone] * (ABNORMAL) Comprehensive Metabolic Panel (08/10/2025 11:17 AM EST) Only the most recent of5 resultswithin the time period is included. Sodium 143 135 - 145 mmol/L [facility] Potassium 4.3 3.3 - 5.1 mmol/L [facility] Chloride 114(H) 96 - 108 mmol/L [facility] Carbon Dioxide 24 22 - 29 mmol/L [facility] Anion Gap 9(L) 12 - 20 [facility] Urea Nitrogen (BUN) 11 9 - 16 mg/dL [facility] Creatinine, Serum 0.85 0.5 - 1.4 mg/dL [facility] Estimated Glomerular Filt Rate >60 [facility] Comment:Chronic Kidney Disea se: Estimated GFR < 60 mL/min/1.62w3Grvwpu Kidney Disease: Estimated GFR < 15 mL/min/1.73m2 Glucose 90 60 - 115 mg/dL [facility] Calcium 8.5 8.4 - 10.2 mg/dL [facility] Bilirubin, Total 1.5(H) 0.0 - 1.0 mg/dL [facility] Aspartate Amino Transferase 46(H) 5 - 37 U/L [facility] Alanine Aminotransferase 33 0 - 40 U/L [facility] Total Protein 7.1 6.5 - 8.0 g/dL [facility] Albumin Level 3.5 3.5 - 5.0 g/dL [facility] Alkaline Phosphatase 145(H) 39 - 117 U/L [facility] 08/10/2025 11:1 7 AM EST 08/10/2025 1:06 PM EST us Generic External Data Provider LAB BLOOD ORDERAB LES Final Result [facility] [address] [place] [phone] * Culture, Urine, Routine (08/01/2025 1:21 PM EST) Urine Urine specimen obtained by clean catch procedure / Unknown 08/01/2025 1:21 PM EST 08/01/2025 6:57 PM EST Comment:UACC Narrative [facility] - 08/04/2025 8:04 AM EST Enterococcus faecalis Quant 10,000 to 50,000 cfu/mL Lactobacillus species Quant 10,000 to 50,000 cfu/mL Susc N/A Susceptibility not routinely performed on this isolate. Enterococcus faecalis: Ampicillin <=2(S) Enterococcus faecalis: Levofloxacin 0.5(S) Enterococcus faecalis: Nitrofurantoin <=16(S) Enterococcus faecalis: Tetracycline >=16(R) Enterococcus faecalis: Vancomycin 1(S) Specimen Source: Urine clean catch us Generic External Data Provider LAB MICROBIOLOGY - GENERAL ORDERABLES Final Result [facility] [address] [place] [phone] * (ABNORMAL) Prothrombin Time-INR (07/13/2025 12:47 AM EST) Prothrombin Time 17.2(H) 10.9 - 12.4 SEC [facility] INTERNATIONAL NORM RATIO 1.5(H) 0.9 - 1.1 [facility] Comment:INTERNATIONAL NORMAL IZED RATIO (INR) REFERENCE [...] ORDERAB LES Final Result Performing Organization Address City/State/[facility] [[email or web address]] de Phone Number [facility] [address] [place] [phone] * CT Cervical Spine w/o Contrast (07/13/2025 12:12 AM EST) Anatomical Region Laterality Modality Spine, C-spine Computed Tomogra phy 07/13/2025 12:1 2 AM EST Narrative 07/13/2025 12:13 AM EST [address] [address] [address] Scan Report Signed Patient: Adelso Beebe MR#: [id number] : 1960 Acct:[id number] Age/Sex: 64 / M ADM Date: 07/12/25 Loc: HO.ED Attending Dr: Ordering Physician: Stefani Rocha DO Date of Service: 07/12/25 Procedure(s): CT cervical spine wo IV con Accession Number(s): [id number] cc: Stefani Rocha DO; Leta Soto MD Report Number: [id number]: Total DLP = 472.00 mGy-cm Reason for [...] MD in OV> 07/13/2512 DD/ TD/TT: 07/13/2511 Lead Cook: Procedure Note Donotuseinterpreter, Image - 07/13/[address] [address] [address] Scan Report Signed Patient: Adelso BeebeMR#: [id number] : 1960cct:[id number] Age/Sex: 64 / MADM Date: 07/12/25 Loc: HO.ED Attending Dr: Ordering Physician: Stefani Rocha DO Date of Service: 07/12/25 Procedure(s): CT cervical spine wo IV con Accession Number(s): [id number] cc: Stefani Rocha DO; Leta Soto MD Report Number: [id number]: Total DLP = 472.00 mGy-cm Reason for [...] MD in OV> 07/13/2512 DD/ TD/TT: 07/13/2511 Lead Cook: us [facility] External Provider IMG CT PROCEDURES Edited Result - Final * CT Chest w/o Contrast (07/13/2025 12:10 AM EST) Anatomical Region Laterality Modality Body, Chest Computed Tomogra phy 07/13/2025 12:1 0 AM EST Narrative 07/13/2025 12:11 AM EST [address] [address] [address] Scan Report Signed Patient: Adelso Beebe MR#: [id number] : 1960 Acct:[id number] Age/Sex: 64 / M ADM Date: 07/12/25 Loc: HO.ED Attending Dr: Ordering Physician: Stefani Rocha DO Date of Service: 07/12/25 Procedure(s): CT chest wo IV con Accession Number(s): [id number] cc: Stefani Rocha Maria Gabriela MD Report Number: [id number]: Total DLP = 517.00 mGy-cm Reason for [...] MD in OV> 07/13/2510 DD/ TD/TT: 07/13/259 Lead Cook: Procedure Note Donotuseinterpreter, Image - 07/13/[address] [place] [address] [address] Scan Report Signed Patient: Adelso BeebeMR#: [id number] : 1960cct:[id number] Age/Sex: 64 / MADM Date: 07/12/25 Loc: HO.ED Attending Dr: Ordering Physician: Stefani Rocha DO Date of Service: 07/12/25 Procedure(s): CT chest wo IV con Accession Number(s): [id number] cc: Stefani Rocha Maria Gabriela MD Report Number: [id number]: Total DLP = 517.00 mGy-cm Reason for [...] MD in OV> 07/13/2510 DD/ TD/TT: 07/13/259 Lead Cook: [facility] External Provider IMG CT PROCEDURES Edited Result - Final * CT Abdomen Pelvis w/o Contrast (07/13/2025 12:09 AM EST) Anatomical Region Laterality Modality Body, Pelvis, Abdomen Computed T omography 07/13/2025 12:0 9 AM EST Narrative 07/13/2025 12:10 AM EST [address] [address] [address] Scan Report Signed Patient: Adelso Beebe MR#: [id number] : 1960 Acct:[id number] Age/Sex: 64 / M ADM Date: 07/12/25 Loc: HO.ED Attending Dr: Ordering Physician: Stefani Rocha DO Date of Service: 07/12/25 Procedure(s): CT abdomen pelvis wo IV con Accession Number(s): [id number] cc: Stefani Rocha DO; Leta Soto MD Report Number: [id number]: Total DLP = 1405.00 mGy-cm Reason for [...] MD in OV> 07/13/259 DD/ TD/TT: 07/13/258 Lead Cook: Procedure Note Donotuseinterpreter, Image - 07/13/[address] [address] [address] Scan Report Signed Patient: Adelso BeebeMR#: [id number] : 1960cct:[id number] Age/Sex: 64 / MADM Date: 07/12/25 Loc: HO.ED Attending Dr: Ordering Physician: Stefani Rocha DO Date of Service: 07/12/25 Procedure(s): CT abdomen pelvis wo IV con Accession Number(s): [id number] cc: Stefani Rocha DO; Leta Soto MD Report Number: [id number]: Total DLP = 1405.00 mGy-cm Reason for [...] MD in OV> 07/13/259 DD/ TD/TT: 07/13/258 Lead Cook: [facility] External Provider IMG CT PROCEDURES Edited Result - Final * CT Head w/o Contrast (07/13/2025 12:02 AM EST) Only the most recent of2 resultswithin the time period is included. Anatomical Region Laterality Modality Head, Neck Computed Tomogra phy 07/13/2025 12:0 2 AM EST Narrative 07/13/2025 12:05 AM EST [address] [address] [address] Scan Report Signed Patient: Adelso Beebe MR#: [id number] : 1960 Acct:[id number] Age/Sex: 64 / M ADM Date: 07/12/25 Loc: HO.ED Attending Dr: Ordering Physician: Stefani Rocha DO Date of Service: 07/12/25 Procedure(s): CT head/brain wo IV con Accession Number(s): [id number] cc: Stefani Rocha DO; Leta Soto MD Report Number: [id number]: Total DLP = 699.00 mGy-cm Reason for [...] 07/13/25 0003 DD/ 0002 TD/TT: 07/13/25 0002 Lead Cook: Procedure Note Donotuseinterpreter, Image - 07/13/[address] [address] [address] Scan Report Signed Patient: Adelso BeebeMR#: [id number] : 1960cct:[id number] Age/Sex: 64 / MADM Date: 07/12/25 Loc: HO.ED Attending Dr: Ordering Physician: Stefani Rocha DO Date of Service: 07/12/25 Procedure(s): CT head/brain wo IV con Accession Number(s): [id number] cc: Stefani Rocha DO; Leta Soto MD Report Number: [id number]: Total DLP = 699.00 mGy-cm Reason for [...] 07/13/25 0003 DD/ 0002 TD/TT: 07/13/25 0002 Lead Cook: [facility] External Provider IMG CT PROCEDURES Edited Result - Final * High Sensitivity Troponin I (07/12/2025 10:42 PM EST) Only the most recent of6 resultswithin the time period is included. TROPONIN I HIGH SENSITIVITY 18.9 <3.5 - 35.0 ng/L [facility] Comment:The Clifford high sens itivity Troponin-I results should beused in conjunction with other diagnostic information suchas ECG, clinical observations and information, and patientsymptoms to aid in the diagnosis of NH. 07/12/2025 10:4 2 PM EST 07/12/2025 10:47 PM EST Generic External Data Provider LAB BLOOD ORDERAB LES Final Result [facility] [address] [place] [phone] * NT-proBNP (07/12/2025 10:42 PM EST) NT-proBNP 115.0 <300 pg/mL [facility] Comment:Reference Range:Age Group (years) NT-proBNP (pg/ml) InterpretationAll <300 Negative: HF unlikelyFor patients presenting to the ED with clinical suspicion ofnew onset or worsening HF, see below:18 to <50 >299.9 to <450.0 Grayzone: [id number] to 75 >299.9 to <900.0 other causes of>75 >299.9 to <1800.0 NT-proBNP aysstrkxo46 to <50 >449.9 Positive: HF -17 >899.9>75 >1799.9Note: Elevated NT-proBNP levels should be interpreted inthe context of other clinical information. 07/12/2025 10:4 2 PM EST 07/12/2025 10:47 PM EST us Generic External Data Provider LAB BLOOD ORDERAB LES Final Result Performing Organization Address City/[facility]/ZIP Co de Phone Number [facility] [address] [place] [phone] * Red blood count (07/12/2025 10:42 PM EST) Red Blood Cells: [id number] ON RC TRANSFUSED 07/13/25 0012 [facility] 07/12/2025 10:4 2 PM EST 07/12/2025 10:47 PM EST us Generic External Data Provider LAB BLOOD ORDERAB LES Final Result Performing Organization Address City/[facility]/ZIP Co de Phone Number [facility] [address] [place] [phone] * Type and screen (07/12/2025 10:42 PM EST) Only the most recent of2 resultswithin the time period is included. Blood Type ON [facility] Antibody Screen NEGATIVE [facility] 07/12/2025 10:4 2 PM EST 07/12/2025 10:47 PM EST Narrative [facility] - 07/13/2025 12:39 AM EST Results at Issue Units as of 07/13/25 0014 ...Test View Group: Most Recent HGB HCT Results LABORATORYDate Time Test Result Flag Normal Range07/12/252009 HGB 6.8 *L 14.0-18.0 g/dlback by Tha 07/12/25 at 2115 by HAILEY.07/12/252009 HCT 22.8 L 42.0-52.0 % Yes Generic External Data Provider LAB BLOOD BANK TE ST ORDERABLES Final Result Performing Organization Address [facility]/ZIP Co de Phone Number [facility] [address] [place] [phone] * (ABNORMAL) Ammonia, Plasma (07/12/2025 10:42 PM EST) Only the most recent of3 resultswithin the time period is included. Ammonia (P) 78(H) 13 - 55 umol/L [facility] 07/12/2025 10:4 2 PM EST 07/12/2025 10:47 PM EST Generic External Data Provider LAB BLOOD ORDERAB LES Final Result Performing Organization Address [facility] Co de Phone Number [facility] [address] [place] [phone] * Urinalysis w/reflex microscopic (07/12/2025 9:01 PM EST) Only the most recent of4 resultswithin the time period is included. Color Urine Yellow [facility] Appearance Urine Clear [facility] PH 6.0 5.0 - 9.0 [facility] Glucose Urine UA Negative Negative mg/dL [facility] Urine Blood Negative Negative [facility] Specific Garita - Urine 1.015 1.005 - 1.025 [facility] Urine Protein Negative Neg-Trace mg/dL [facility] Urine Ketones Negative Negative mg/dL [facility] Nitrite Urine Negative Negative [facility] Leukocyte Esterase Urine Negative Negative [facility] 07/12/2025 9:01 PM EST 07/12/2025 9:06 PM EST Narrative [facility] - 07/12/2025 9:19 PM EST Urine, Clean Catch us Generic External Data Provider LAB URINE ORDERAB LES Final Result Performing Organization Address City/State/[facility] Co de Phone Number [facility] [address] [place] [phone] * CTA Head Stroke w/ and w/o Contrast (07/02/2025 12:34 AM EDT) Anatomical Region Laterality Modality Computed Tomogra phy 07/02/2025 12:3 4 AM EDT Narrative 07/02/2025 12:35 AM EDT [address] [address] [address] Scan Report Signed Patient: Adelso Beebe MR#: [id number] : 1960 Acct:[id number] Age/Sex: 64 / M ADM Date: 07/01/25 Loc: .ED Attending Dr: Ordering Physician: Bhavana Christensen Date of Service: 07/01/25 Procedure(s): CT angio head neck STROKE Accession Number(s): [id number] cc: Bhavana Christensen; [facility] Report Number: [id number]: Total DLP = 681.00 mGy-cm Reason for [...] Likewise in the shower solving in skin INDOOR LANDSCAPE ARCHITECT: Persistent origin of the right INDOOR LANDSCAPE ARCHITECT. Moderate focal narrowing in the distal right [...] MD in OV> 07/02/2534 DD/ TD/TT: 07/02/2533 Lead Cook: Procedure Note Donotuseinterpreter, Image - 07/02/[address] [place] [address] [address] Scan Report Signed Patient: Adelso BeebeMR#: [id number] : 2Acct:[id number] Age/Sex: 64 / MADM Date: 07/01/25 Loc: HO.ED Attending Dr: Ordering Physician: Bhavana Christensen Date of Service: 07/01/25 Procedure(s): CT angio head neck STROKE Accession Number(s): [id number] cc: Bhavana Christensen; [facility] Report Number: [id number]: Total DLP = 681.00 mGy-cm Reason for [...] Likewise in the shower solving in skin INDOOR LANDSCAPE ARCHITECT: Persistent origin of the right INDOOR LANDSCAPE ARCHITECT. Moderate focal narrowing in the distal right [...] MD in OV> 07/02/2534 DD/ TD/TT: 07/02/2533 Lead Cook: [facility] External Provider IMG CT PROCEDURES Edited Result - Final * XR Chest 1 View (07/02/2025 12:22 AM EDT) Only the most recent of2 resultswithin the time period is included. Anatomical Region Laterality Modality Chest Radiographic Susy ging 07/02/2025 12:2 2 AM EDT Narrative 07/02/2025 12:24 AM EDT [address] [address] XRay Report Signed Patient: Adelso Beebe MR#: [id number] : 1960 Acct:[id number] Age/Sex: 64 / M ADM Date: 07/01/25 Loc: .ED Attending Dr: Ordering Physician: Bhavana Christensen Date of Service: 07/01/25 Procedure(s): XR chest 1V Accession Number(s): [id number] cc: Bhavana Christensen; [facility] Reason for Exam: cough/pain CLINICAL HISTORY: [...] MD in OV> 07/02/2522 DD/ TD/TT: 07/02/2521 Lead Cook: Procedure Note Donotuseinterpreter, Image - 07/02/2025 [place] [address] XRay Report Signed Patient: Adelso BeebeMR#: [id number] : 1960cct:[id number] Age/Sex: 64 / MADM Date: 07/01/25 Loc: .ED Attending Dr: Ordering Physician: Bhavana Christensen Date of Service: 07/01/25 Procedure(s): XR chest 1V Accession Number(s): [id number] cc: Bhavana Christensen; [facility] Reason for Exam: cough/pain CLINICAL HISTORY: [...] MD in OV> 07/02/253 DD/ TD/TT: 07/02/2521 Lead Cook: [facility] External Provider IMG XR PROCEDURES Edited Result - Final * Drug Monitoring, Panel 1, Screen, Urine (07/02/2025 12:06 AM EDT) Only the most recent of2 resultswithin the time period is included. Opiate Screen Urine Not Detected Not Detect [facility] Comment:Opiate cut-off is 30 0 ng/mL.Positive results are unconfirmed and should not be used fornon-medical purposes. Barbiturates, Urine Not Detected Not Detect [facility] Comment:Barbiturate cut-off is 200 ng/mL.Positive results are unconfirmed and should not be used fornon-medical purposes. Phencyclidine Screen Urine Not Detected Not Detect [facility] Comment:Phencyclidine cut-of f is 25 ng/mL.Positive results are unconfirmed and should not be used fornon-medical purposes. Amphetamine Screen Urine Not Detected Not Detect [facility] Comment:Amphetamine cut-off is 1000 ng/mL.Positive results are unconfirmed and should not be used fornon-medical purposes. Benzodiazepines Screen Urine Not Detected Not Detect [facility] Comment:Benzodiazepine cut-o ff is 200 ng/mL.Positive results are unconfirmed and should not be used fornon-medical purposes. Cocaine Screen Urine Not Detected Not Detect [facility] Comment:Cocaine cut-off is 3 00 ng/mL.Positive results are unconfirmed and should not be used fornon-medical purposes. Cannabinoid Screen Urine Not Detected Not Detect [facility] Comment:Cannabinoid cut-off is 50 ng/mL.Positive results are unconfirmed and should not be used fornon-medical purposes. Methadone Screen, Urine Not Detected Not Detect ng/mL [facility] Comment:Methadone cut-off is 300 ng/mL.Positive results are unconfirmed and should not be used fornon-medical purposes. FENTANYL URINE Not Detected Not Detect [facility] Comment:Fentanyl cut-off is 1 ng/mL.Positive results are unconfirmed and should not be used fornon-medical purposes. Oxycodone Urine Screen Not Detected Not Detect ng/mL [facility] Comment:Oxycodone cut-off is 100 ng/mL.Positive results are unconfirmed and should not be used fornon-medical purposes. Buprenorphine Screen Not Detected Not Detect ng/mL [facility] Comment:Buprenorphine cut-of f is 5 ng/mL.Positive results are unconfirmed and should not be used fornon-medical purposes. 07/02/2025 12:0 6 AM EDT 07/02/2025 12:22 AM EDT Generic External Data Provider LAB URINE ORDERAB LES Final Result Performing Organization Address [facility] Co de Phone Number [facility] [address] [place] [phone] * Slide Review (07/01/2025 11:13 PM EDT) Only the most recent of4 resultswithin the time period is included. Slide Review MANUAL DIFF [facility] 07/01/2025 11:1 3 PM EDT 07/01/2025 11:21 PM EDT Generic External Data Provider LAB BLOOD ORDERAB LES Final Result Performing Organization Address City/[facility]/ZIP Co de Phone Number [facility] [address] [place] [phone] * (ABNORMAL) Complete Blood Count Manual Diff (07/01/2025 11:13 PM EDT) White Blood Count 1.4(L) 4.8 - 10.8 X10*3/uL [facility] Red Blood Count 3.15(L) 4.60 - 5.80 X10*6/uL [facility] Hemoglobin 7.7(L) 14.0 - 18.0 g/dl [facility] Hematocrit 25.2(L) 42.0 - 52.0 % [facility] Mean Corpuscular Volume 80.0 80.0 - 98.0 fL [facility] Mean Corpuscular Hemoglobin 24.4(L) 27.0 - 33.0 pg [facility] Mean Corpuscular HGB Conc 30.6(L) 31.0 - 36.0 g/dl [facility] Red Cell Distribution Width 16.0 11.0 - 16.0 % [facility] Platelet Count 22(L) 160 - 400 X10*3/uL [facility] NRBC Pct Auto 0.0 0.0 - 0.2 /100WBC [facility] NRBC Abs Auto 0.000 0.0 - 0.012 X10*3/uL [facility] Neutrophils % Manual 70 45 - 73 % [facility] Band Neutrophils Percent 0(L) 3 - 5 % [facility] Lymphocytes Percent Manual 26 20 - 40 % [facility] Monocytes Percent Manual 4 2 - 11 % [facility] NEUTROPHILS ABSOLUTE MANUAL 1.0(L) 2.0 - 8.3 X10*3/uL [facility] LYMPHOCYTES ABSOLUTE MANUAL 0.4(L) 1.2 - 4.9 X10*3/uL [facility] MONOCYTES ABSOLUTE MANUAL 0.1 0.1 - 1.2 X10*3/uL [facility] Platelet Estimate NORMAL NORMAL [facility] Platelet Morphology Comment NORMAL [facility] RBC Morphology NOTED [facility] Tear Drop Cells 1+ (0-2) /OIF [facility] Ovalocytes 1+ (5-14) /[facility] Petrona Cells 1+ (0-2) /[facility] Schistocytes 1+ (0-2) /[facility] 07/01/2025 11:1 3 PM EDT 07/01/2025 11:21 PM EDT us Generic External Data Provider LAB BLOOD ORDERAB LES Final Result [facility] [address] [place] [phone] * Ethanol (07/01/2025 11:13 PM EDT) Only the most recent of2 resultswithin the time period is included. ETHANOL (MG/DL) IN SER/PLAS <10 mg/dL [facility] Comment:Serum/plasma ethanol results are to be used formedical/treatment purposes only. 07/01/2025 11:1 3 PM EDT 07/01/2025 11:21 PM EDT us Generic External Data Provider LAB BLOOD ORDERAB LES Final Result [facility] [address] [place] [phone] * SARS-CoV-2 RNA, Influenza A/B, and RSV RNA, Ql NAAT (07/01/2025 11:13 PM EDT) Only the most recent of2 resultswithin the time period is included. Influenza A PCR NEGATIVE Negative [facility] Influenza B PCR NEGATIVE Negative [facility] Resp Syncy Virus RNA Qual PCR NEGATIVE Negative [facility] SARS COV2 PCR NEGATIVE Negative [facility] Comment:All test results mus t [...] use by authorized laboratories.Testing performed on the [employer] GeneXpert utilizingreal-time RT-PCR.All SARS CoV2 and positive influenza A/B results arereported to [facility]. 07/01/2025 11:1 3 PM EDT 07/01/2025 11:21 PM EDT us Generic External Data Provider LAB MICROBIOLOGY - GENERAL ORDERABLES Final Result Performing Organization Address [facility] Co de Phone Number [facility] [address] [place] [phone] * Magnesium (07/01/2025 11:13 PM EDT) Magnesium 2.0 1.6 - 2.6 mg/dL [facility] 07/01/2025 11:1 3 PM EDT 07/01/2025 11:21 PM EDT Generic External Data Provider LAB BLOOD ORDERAB LES Final Result Performing Organization Address [facility] [[email or web address]] de Phone Number [facility] [address] [place] [phone] * XR Humerus Left (06/25/2025 11:38 AM EDT) Anatomical Region Laterality Modality Upper Extremities, Humerus Left Radio graphic Imaging 06/25/2025 11:3 8 AM EDT Narrative 06/25/2025 11:48 AM EDT [address] [address] XRay Report Signed Patient: Adelso Beebe MR#: [id number] : 1960 Acct:[id number] Age/Sex: 64 / M ADM Date: 06/25/25 Loc: HO.ED Attending Dr: Ordering Physician: Cash Reno MD Date of Service: 06/25/25 Procedure(s): XR humerus LT Accession Number(s): [id number] cc: Cash Reno MD; Leta Soto MD [...] OV> 06/25/25 1145 DD/ 1138 TD/TT: 06/25/251137 Lead Cook: Procedure Note Donotuseinterpreter, Image - 06/25/[address] [address] XRay Report Signed Patient: Adelso BeebeMR#: [id number] : 1960cct:[id number] Age/Sex: 64 / MADM Date: 06/25/25 Loc: .ED Attending Dr: Ordering Physician: Cash Reno MD Date of Service: 06/25/25 Procedure(s): XR humerus LT Accession Number(s): [id number] cc: Cash Reno MD; Leta Soto MD [...] OV> 06/25/25 1145 DD/ 1138 TD/TT: 06/25/251137 Lead Cook: [facility] External Provider IMG XR PROCEDURES Edited Result - Final * POCT Glucose (06/09/2025 11:04 AM EDT) Pathologist [facility] Glucose Blood, POC 107 60 - 200 mg/dL QC Media Lot # [id number] Lot# Expiration Date [id number] Blood Capillary blood specimen / Unknown 06/09/2025 11:04 AM EDT Leta Dick MD POINT OF CARE ANCELMO T ENTER/EDIT ORDERABLES Final Result * Lipase (06/04/2025 2:25 PM EDT) [facility] Lipase 20 8 - 78 U/L [facility] 06/04/2025 2:25 PM EDT 06/04/2025 2:29 PM EDT us Generic External Data Provider LAB BLOOD ORDERAB LES Final Result Performing Organization Address [facility] Co de Phone Number [facility] [address] [place] [phone] * Hepatic Function Panel (06/04/2025 2:25 PM EDT) [facility] Bilirubin, Direct 0.5 0.0 - 0.5 mg/dL [facility] 06/04/2025 2:25 PM EDT 06/04/2025 2:29 PM EDT Generic External Data Provider LAB BLOOD ORDERAB LES Final Result Performing Organization Address [facility] Co de Phone Number [facility] [address] [place] [phone] * Hematoxylin and Eosin Stain (05/21/2025 2:15 PM EDT) 05/21/2025 2:15 PM EDT 05/21/2025 2:50 PM EDT Narrative [facility] - 05/25/2025 5:25 PM EDT ----- ------- Name: Adelso Beebe Age/Sex: 64/M : 1960 Unit#: [id number] Attend Dr: Yajaira Antonio MD Re05/21/25 Status: [facility] Location: [facility] [[email or web address]] Disch: ----- ------- SPEC : [id number] RECD: 05/21/25 STATUS: OUMOU FONSECA NUM: [id number] CASSI: 05/21/25-[address] [facility] [address]: Yajaira Antonio MD ENTERED: 05/21/25-6867 SP TYPE: Surgical OTHR DR: Leta Soto [...] microscopic examination, 6 pieces in cassette A. ([facility]) Special studies ordered and performed: Immunostain for H. pylori; AB/PAS stains IHC S/NG Disclaimer NOTE: Unless otherwise stated, all tissue is formalin-fixed and paraffin-embedded. Some or all of the immunohistochemical tests reported herein may have been developed and their performance characteristics determined by [facility]. They have not been cleared or approved by the U.S. Food and Drug Administration (FDA). However, the FDA has determined that such clearance or approval is not necessary. This laboratory is certified under the Clinical Laboratory Improvement Amendments of 1988 (CLIA) as qualified to perform high complexity clinical laboratory testing. Copies To: Leta Soto MD [address] [place] [phone] CONTINUED ON NEXT PAGE ----- ------- Name: Godfrey McmanusAdelso Age/Sex: 64/M : 1960 Unit#: [id number] Attend Dr: Yajaira Antonio MD Re05/21/25 [place] [facility] [place] [facility] [[email or web address]] Disch: ----- ------- SPEC : [id number] RECD: 05/21/25-0420 STATUS: OUMOU FONSECA NUM: [id number] CASSI: 05/21/25-[address] [facility] [address]: Yajaira Antonio MD ENTERED: 05/21/25-3641 SP TYPE: Surgical OTHR DR: Leta Soto MD ORDERED: HE Stain/3, Gross Micro L4, IHC, Special st. 2, H. pylori, AB/PAS Copies To: (Continued) Yajaira Antonio MD [facility] [address] [place] [email or web address] ----- ------- Signed (signature on file) Raul Blunt MD 05/25/25 3695 ----- ------- END OF REPORT Generic External Data Provider LAB BLOOD ORDERAB LES Final Result Performing Organization Address [facility] Co de Phone Number [facility] [address] [place] [phone] * Pheresis Platelets (05/20/2025 10:46 AM EDT) Pheresis Platelets [id number] AP PHPLT TRANSFUSED 05/21/25 1333 [id number] AP PHPLT TRANSFUSED 05/21/25 1223 [facility] 05/20/2025 10:4 6 AM EDT 05/20/2025 11:19 AM EDT Generic External Data Provider LAB BLOOD BANK TE ST ORDERABLES Final Result Performing Organization Address [facility]/ZIP Co de Phone Number [facility] [address] [place] [phone] * HIV-1 RNA, Quantitative, Real-Time PCR (04/21/2025 10:43 AM EDT) HIV RNA PCR Qn Copies NOT DETECTED NOT DETECTED copies/mL [facility] HIV RNA PCR Qn Log Copies NOT DETECTED NOT DETECTED [facility] Comment:Result Units: Log co pies/mLThis test was performed using Real-Time Polymerase ChainReaction.Reportable Range: 20 copies/mL to 10,000,000 copies/mL(1.30 log copies/mL to 7.00 log copies/mL).THIS TEST WAS PERFORMED AT:[address] [place] [id number] STRICKLAND MD 04/21/2025 10:4 3 AM EDT 04/21/2025 1:18 PM EDT Leta Dick MD LAB BLOOD ORDERAB LES Final Result [facility] [address] [place] [phone] * Lipid Panel, Standard (04/06/2023 10:00 AM EDT) Triglycerides 94 mg/dL [facility] Comment:Desirable Triglyceri de: less than 150 mg/dLBorderline High Triglyceride 150-199 mg/dLHigh Triglyceride: 200-499 mg/dLVery High Triglyceride: greater than or equal to 5OO mg/dL Cholesterol 79 mg/dL [facility] Comment:Desirable Cholestero l: less than 200 mg/dLBorderline High Cholesterol: 200-239 mg/dLHigh Cholesterol: greater than 239 mg/dL LDL Cholesterol Calculated 36 mg/dl [facility] Comment:Desirable LDL: less than 100 mg/dLNear Optimal/Above Optimal LDL: 110- 129 mg/dLBorderline High LDL: 130-159 mg/dLHigh LDL: 160-189 mg/dLVery High LDL: greater than or equal to 190 mg/dL HDL Cholesterol 25 mg/dL [facility] Comment:Desirable HDL: great er than 40 mg/dL Note: This HDL assay may give artificially low results in patients with liver disease. Blood Venous blood specimen / Unknown 04/06/2023 10:00 AM EDT 04/06/2023 11:20 AM EDT [facility] LAB BLOOD ORDERABLES Final Resul t [facility] [address] [place] [phone] from Last 3 Months or Most Recently Relevant to Health Maintenance Insurance [employer] C3 Care Teams Hotel Server Relationship Specialty Start Date End Date Leta Soto MD [address] [place] [phone] PCP - General Internal Medicine 04/11/23 Yajaira Antonio [address] [place] [address] Gastroenterology 09/04/24 [facility] 01/28/25
--- OUTSIDE RECORDS SUMMARY | 2025-08-15 16:14 | XMS_ITS | Encounter Summary ---
Author Organization [email or web address] Address [address] [facility] 7t [place] [address] Care Team Providers Care Trackwalker Name Role Phone Leta Soto MD Primary Care Pro vider Yajaira Antonio Unavailable Encounter Details Date Type Department Care Team (Late st Contact Info) Description 08/10/2025 Patient Outreach [facility] [address] [place] [address] Leta Soto MD [address] [place] [address] Social History Tobacco Use Types Packs/Day Years [...] 08/26/25 at 1 PM with GI at [facility]. Call to GI: CHW will contact [...] Description 08/21/2025 10:00 AM EST Clinical Support [facility] [address] [place] [phone] 09/24/2025 10:15 AM EST Office Visit [facility] [address] [place] [phone] Leta Soto MD [address] [place] [phone] documented as of this encounter Goals Goal [...] documented as of this encounter Care Teams Trackwalker Relationship Specialty Start Date End Date Leta Soto MD [address] [place] [phone] PCP - General Internal Medicine 04/11/23 Yajaira Antonio [address] [place] [address] 3rd [place] [address] Gastroenterology 09/04/24 [facility] 01/28/25 documented as of this encounter
--- OUTSIDE RECORDS SUMMARY | 2025-08-15 16:14 | XMS_ITS | Encounter Summary ---
Author Organization [employer] Address [address] [facility] 7t [place] [address] Care Team Providers Care Dictaphone Typist Name Role Phone Leta Soto MD Primary Care Pro vider Yajaira Antonio Unavailable Reason for Visit * Reason Onset Date Comments VNA Referral 08/05/2025 Encounter Details Date Type Department Care Team (Late st Contact Info) Description 08/05/2025 Telephone [facility] [address] [place] [address] Yamel Khanna, CHANDU [address] [place] [address] VNA Referral Social History Tobacco Use Types [...] Description 08/21/2025 10:00 AM EST Clinical Support [facility] [address] [place] [address] 09/24/2025 10:15 AM EST Office Visit [facility] [address] [place] [address] Leta Soto MD [address] [place] [address] documented as of this encounter Goals Goal [...] documented as of this encounter Care Teams Dictaphone Typist Relationship Specialty Start Date End Date Leta Soto MD [address] [place] [address] PCP - General Internal Medicine 04/11/23 Yajaira Antonio [address] [place] [address] Drive 3rd [place] [address] Gastroenterology 09/04/24 [facility] 01/28/25 documented as of this encounter
--- OUTSIDE RECORDS SUMMARY | 2025-08-15 16:14 | XMS_ITS | Clinical Summary ---
Author Organization Located Within [facility] Address [address] [facility] [address] [place] [phone] Phone Care Team Providers Care Group Worker Name Role Phone Leta Soto MD [...] Type Department Care Team Description 06/10/2025 Telephone [facility] [address] [facility] 10th [place] [address] Michela Matt MD 10/2 cancelled 06/09/2025 Telephone [facility] [address] [place] [address] Michela Matt MD Procedure Instructions 05/28/2025 10:00 AM EDT Pre-Admission Testing [facility] [address] [place] [phone] Michela Matt MD from Last 3 Months [...] Pre-Admission Testing [facility] [address] [place] [address] Michela Matt MD [address] [place] [phone] [email or web address] 10/08/2025 Procedure Pass [facility]OP DEPT [address] [place] [address] 10/08/2025 9:00 AM EST Hospital [facility] [address] [place] [phone] Michela Matt MD [address] [place] [phone] [email or web address] 10/08/2025 9:00 AM EST Anesthesia Event [facility] [address] [place] [phone] Berlin Rosas MD [address] [place] [phone] [email or web address] Juliana Loredo NP [address] [place] [phone] [email or web address] 10/08/2025 9:00 AM EST - 10/08/2025 10:00 AM EST Surgery [facility] [address] [place] [address] Michela Matt MD [address] [place] [phone] [email or web address] TARSAL STRIP 10/19/2025 2:30 PM EST Office Visit [facility] [address] [address] Michela Matt MD [address] [place] [phone] [email or web address] Scheduled Procedures Name Priority Associated Diagnoses Date/Ti ca LATERAL TARSAL STRIP Ectropion of right upper [...] topic Medical Devices Not on file [place] [address] [place] [address] C3 ACO C3 ACO C3 ACO C3 ACO [employer] C[employer] [place] [address] [place] [address] C3 ACO Care Teams Group Worker Relationship Specialty Start Date End Date Leta Soto MD [address] [place] [phone] PCP - General Internal Medicine 01/05/25 Additional Source Comments The information contained in this document represents components of the legal health record. It is not the complete legal health record.Located Within [facility]
--- OUTSIDE RECORDS SUMMARY | 2025-08-15 16:14 | XMS_ITS | Encounter Summary ---
Author Organization [employer] Address [address] [facility] [place] [address] [place] [address] Care Team Providers Care Ug Designer Name Role Phone Leta Soto MD Primary Care Pro vider Yajaira Antonio Unavailable Reason for Visit * Reason Comments Med Refill Encounter Details Date Type Department Care Team (Late st Contact Info) Description 07/31/2025 Refill [facility] [address] [place] [address] Victoriano Beyer MD [address] [place], [place] [phone] Oral ulcer Social History Tobacco Use Types [...] Description 08/21/2025 10:00 AM EST Clinical Support [address] [address] 09/24/2025 10:15 AM EST Office Visit [address] [address] Leta Soto MD [address] [place] [address] documented as of this encounter Goals Goal [...] documented as of this encounter Care Teams Ug Designer Relationship Specialty Start Date End Date Leta Soto MD [address] [place] [address] PCP - General Internal Medicine 04/11/[address] 3rd [place] [address] Gastroenterology 09/04/24 [facility] 01/28/25 documented as of this encounter
--- OUTSIDE RECORDS SUMMARY | 2025-08-15 16:14 | XMS_ITS | Encounter Summary ---
Author Organization [employer] Address 75 [facility] 7t [place] [address] Care Team Providers Care Media Planner Name Role Phone Leta Soto MD Primary Care Pro vider Yajaira Antonio Unavailable Encounter Details Date Type Department Care Team (Late st Contact Info) Description 11/11/2024 Telephone [facility] [address] [place] [address] Leta Soto MD [address] [place] [address] Social History Tobacco Use Types Packs/Day Years [...] 12:27 PM EST Tc from amrita stiles pillowcase cleaner requesting the status on pt documented in this encounter Plan of Treatment Upcoming Encounters Date Type Department Care Team (Late st Contact Info) Description 08/21/2025 10:00 AM EST Clinical Support [facility] [address] [place] [address] 09/24/2025 10:15 AM EST Office Visit [facility] [address] [place] [address] Leta Soto MD [address] [place] [address] documented as of this encounter Goals Goal [...] documented as of this encounter Care Teams Media Planner Relationship Specialty Start Date End Date Leta Soto MD [address] [place] [address] PCP - General Internal Medicine 04/11/23 Yajaira Antonio [address] [place] [address] 3rd [place] [address] Gastroenterology 09/04/24 [facility] 01/28/25 documented as of this encounter
--- OUTSIDE RECORDS SUMMARY | 2025-08-15 16:14 | XMS_ITS | Encounter Summary ---
Author Organization [employer] Address 75 [facility] 7t [place] [address] Care Team Providers Care Nutrition Club Ambassador Name Role Phone Leta Soto MD Primary Care Pro vider Yajaira Antonio Unavailable Encounter Details Date Type Department Care Team (Late st Contact Info) Description 08/10/2025 Orders Only [facility] 230 [place] [address] Leta Soto MD [address] [place] [address] Social History Tobacco Use Types Packs/Day Years [...] 08/26/25 at 1 PM with GI at [facility] and that pt needsto bring [...] of the above , pt was at [facility] and w a friend Sandra informed both so pt can be reinforced in plan In regards UA done today is neg so no culture to be done -I am requesting [place] to fax UA result to [facility] as requested by them No indication for ATB for UTI -pt reports again to be asymptomatic w neg UA --- Addendum in 08/11/2025 pt came requesting a call to [facility] informing his UA result and my rec to not take ATB for urine I called [facility] [phone] today and informed RN of it documented in this encounter Plan of Treatment Upcoming Encounters Date Type Department Care Team (Late st Contact Info) Description 08/21/2025 10:00 AM EST Clinical Support [address] [address] 09/24/2025 10:15 AM EST Office Visit [address] [address] Leta Soto MD [address] [place] [address] documented as of this encounter Goals Goal [...] EST) Sodium 143 135 - 145 mmol/L [facility] Potassium 4.3 3.3 - 5.1 mmol/L [facility] Chloride 114(H) 96 - 108 mmol/L [facility] Carbon Dioxide 24 22 - 29 mmol/L [facility] Anion Gap 9(L) 12 - 20 [facility] Urea Nitrogen (BUN) 11 9 - 16 mg/dL [facility] Creatinine, Serum 0.85 0.5 - 1.4 mg/dL [facility] Estimated Glomerular Filt Rate >60 [facility] Comment:Chronic Kidney Disea se: Estimated GFR < 60 mL/min/1.85n8Gksuri Kidney Disease: Estimated GFR < 15 mL/min/1.73m2 Glucose 90 60 - 115 mg/dL [facility] Calcium 8.5 8.4 - 10.2 mg/dL [facility] Bilirubin, Total 1.5(H) 0.0 - 1.0 mg/dL [facility] Aspartate Amino Transferase 46(H) 5 - 37 U/L [facility] Alanine Aminotransferase 33 0 - 40 U/L [facility] Total Protein 7.1 6.5 - 8.0 g/dL [facility] Albumin Level 3.5 3.5 - 5.0 g/dL [facility] Alkaline Phosphatase 145(H) 39 - 117 U/L [facility] 08/10/2025 11:1 7 AM EST 08/10/2025 1:06 PM EST us Generic External Data Provider LAB BLOOD ORDERAB LES Final Result [facility] [address] [place] [phone] * (ABNORMAL) CBC auto differential (08/10/2025 11:17 AM EST) White Blood Count 2.1(L) 4.8 - 10.8 X10*3/uL [facility] Red Blood Count 3.96(L) 4.60 - 5.80 X10*6/uL [facility] Hemoglobin 9.7(L) 14.0 - 18.0 g/dl [facility] Hematocrit 31.8(L) 42.0 - 52.0 % [facility] Mean Corpuscular Volume 80.3 80.0 - 98.0 fL [facility] Mean Corpuscular Hemoglobin 24.5(L) 27.0 - 33.0 pg [facility] Mean Corpuscular HGB Conc 30.5(L) 31.0 - 36.0 g/dl [facility] Red Cell Distribution Width 17.0(H) 11.0 - 16.0 % [facility] Platelet Count 24(L) 160 - 400 X10*3/uL [facility] Neutrophils Percent Auto 62.0 45 - 73 % [facility] Imm Gran Pct Auto 0.5(H) 0.0 - 0.4 % [facility] Lymphocytes Percent Auto 26.2 20 - 40 % [facility] Monocytes Percent Auto 8.9 2 - 11 % [facility] Eosinophils Percent Auto 1.9 0 - 4 % [facility] Basophils Percent Auto 0.5 0 - 2 % [facility] NRBC Pct Auto 0.0 0.0 - 0.2 /100WBC [facility] Neutrophils Absolute Auto 1.3(L) 2.0 - 8.3 x10*3/uL [facility] Imm Gran Abs Auto 0.01 0.00 - 0.03 X10*3/uL [facility] Lymphocytes Absolute Auto 0.6(L) 1.2 - 4.9 X10*3/uL [facility] Monocytes Absolute Auto 0.2 0.1 - 1.2 X10*3/uL [facility] Eosinophils Absolute Auto 0.0 0.0 - 0.4 X10*3/uL [facility] Basophils Absolute Auto 0.0 0.0 - 0.2 X10*3/uL [facility] NRBC Abs Auto 0.000 0.0 - 0.012 X10*3/uL [facility] 08/10/2025 11:1 7 AM EST 08/10/2025 1:06 PM EST us Generic External Data Provider LAB BLOOD ORDERAB LES Edited Result - Final [facility] [address] [place] [phone] documented in this encounter Visit Diagnoses Not on filedocumented in this encounter Additional Health Concerns Assessment Noted Time PHQ-9 Depression Total Score: 0 03/12/20 25 10:25 AM EDT documented as of this encounter Care Teams Nutrition Club Ambassador Relationship Specialty Start Date End Date Leta Soto MD [address] [place] [address] PCP - General Internal Medicine 04/11/23 Yajaira Antonio [address] 3rd [place] [address] Gastroenterology 09/04/24 [facility] 01/28/25 documented as of this encounter
--- OUTSIDE RECORDS SUMMARY | 2025-08-15 16:14 | XMS_ITS | Encounter Summary ---
Author Organization [employer] Address 75 [facility] 7t [place] [address] Care Team Providers Care Cigar Packer Name Role Phone Leta Soto MD Primary Care Pro vider Yajaira Antonio Unavailable Reason for Visit * Reason Onset Date Comments UA to [facility] 08/10/2025 Encounter Details Date Type Department Care Team (Late st Contact Info) Description 08/10/2025 Telephone [facility] [address] [place] [address] Leta Soto MD [address] [place], [place] [phone] UA to [facility] Social History Tobacco Use Types Packs/Day Years [...] Caicedo [place] - 08/10/2025 2:36 PM EST Collection Agent sent fax to [facility] at Fax # [phone] of last UA result done today 08/10/2025. * Telephone Encounter - Nhung Caicedo [place] - 08/10/2025 2:34 PM EST ----- Message from Leta Dick MD sent at 08/10/2025 1:45 PM EST ----- Please Nhung can you Fax to [facility] at Fax # [phone] last UA result done today 08/10/2025 Thanks documented in this encounter Plan of Treatment Upcoming Encounters Date Type Department Care Team (Late st Contact Info) Description 08/21/2025 10:00 AM EST Clinical Support [facility] [address] [place] [address] 09/24/2025 10:15 AM EST Office Visit [facility] [address] [place] [address] Leta Soto MD [address] [place] [address] documented as of this encounter Goals Goal [...] documented as of this encounter Care Teams Cigar Packer Relationship Specialty Start Date End Date Leta Soto MD [address] [place] [address] PCP - General Internal Medicine 04/11/23 Yajaira Antonio [address] [facility] [address] [facility] [address] 3rd [place] [address] Gastroenterology 09/04/24 [facility] 01/28/25 documented as of this encounter
--- OUTSIDE RECORDS SUMMARY | 2025-08-15 16:14 | XMS_ITS | Encounter Summary ---
Author Organization [employer] Address 75 [facility] 7t [place] [address] Care Team Providers Care Blanket Binder Name Role Phone Leta Soto MD Primary Care Pro vider Yajaira Antonio Unavailable Encounter Details Date Type Department Care Team (Late st Contact Info) Description 07/31/2025 Telephone [facility] [address] [place] [address] Leta Soto MD 230 [place] [address] Social History Tobacco Use Types Packs/Day Years [...] Description 08/21/2025 10:00 AM EST Clinical Support [facility] [address] [place] [address] 09/24/2025 10:15 AM EST Office Visit [facility] [address] [place] [address] Leta Soto MD [address] [place] [phone] documented as of this encounter Goals Goal [...] documented as of this encounter Care Teams Blanket Binder Relationship Specialty Start Date End Date Leta Soto MD [address] [place] [address] PCP - General Internal Medicine 04/11/[address]rd [place] [address] Gastroenterology 09/04/24 [facility] 01/28/25 documented as of this encounter
--- OUTSIDE RECORDS SUMMARY | 2025-08-15 16:14 | XMS_ITS | Encounter Summary ---
Author Organization [employer] Address 75 [facility] 7t [place] [address] Care Team Providers Care Masonry Contractor Name Role Phone Leta Soto MD Primary Care Pro vider PacoYajaira Unavailable Reason for Visit * Reason Onset Date Comments Hospital Follow-up 07/16/2025 Encounter Details Date Type Department Care Team (Late st Contact Info) Description 07/16/2025 Telephone [facility] 230 [place] [address] Leta Soto MD 230 [place], [place] [phone] Hospital Follow-up Social History Tobacco Use Types [...] pt requesting a HDF appt. Hospital: [facility] Date of admission: 07/12/25 Discharge date: 07/15/25 Diagnosed: anemia , upper GI bleed *Send message to [facility] Clinical Care Coordinators documented in this encounter Plan of Treatment Upcoming Encounters Date Type Department Care Team (Late st Contact Info) Description 08/21/2025 10:00 AM EST Clinical Support [facility] [address] [place] [phone] 09/24/2025 10:15 AM EST Office Visit [facility] [address] [place] [address] Leta Soto MD [address] [place] [address] [phone] documented as of this encounter Goals Goal [...] documented as of this encounter Care Teams Masonry Contractor Relationship Specialty Start Date End Date Leta Soto MD [address] [place] [address] PCP - General Internal Medicine 04/11/23 Yajaira Antonio [address] [place] [address] 3rd [place] [address] Gastroenterology 09/04/24 [facility] 01/28/25 documented as of this encounter
--- OUTSIDE RECORDS SUMMARY | 2025-08-15 16:15 | XMS_ITS ---
Author Organization [employer] Address 75 [facility] 7t [place] [address] Care Team Providers Care Developer Programmer Analyst Name Role Phone Leta Soto MD [...] Phone Stanley Mckeon RN(Responsible Staff) Registered Nurse [phone] Continued Care and Services Coordination
--- OUTSIDE RECORDS SUMMARY | 2025-08-15 16:15 | XMS_ITS | Encounter Summary ---
Author Organization [employer] Address [address] [facility] [address]t [place] [address] Care Team Providers Care Brim Pouncer Name Role Phone Leta Soto MD Primary Care Pro vider Yajaira Antonio Unavailable Reason for Visit * Reason Comments Med Refill Encounter Details Date Type Department Care Team (Late st Contact Info) Description 07/29/2025 Refill [facility] [address] [place] [address] Victoriano Beyer MD 230 [place] [address] Oral ulcer Social History Tobacco Use Types [...] 2:57 PM EST Called pt via BLS [phone]. Pt states that his mouth ulcer has resolved after he took the liquid medication. Reminded pt of upcoming 08/05/25 appointment. Pt verbalized understanding. documented in this encounter Plan of Treatment Upcoming Encounters Date Type Department Care Team (Late st Contact Info) Description 08/21/2025 10:00 AM EST Clinical Support [facility] [address] [place] [address] 09/24/2025 10:15 AM EST Office Visit [facility] [address] [place] [address] Leta Soto MD [address] [place] [address] documented as of this encounter Goals Goal [...] documented as of this encounter Care Teams Brim Pouncer Relationship Specialty Start Date End Date Leta Soto MD [address] [place] [address] PCP - General Internal Medicine 04/11/23 Yajaira Antonio [address] [place] [address] 3rd [place] [address] Gastroenterology 09/04/24 [facility] 01/28/25 documented as of this encounter
--- OUTSIDE RECORDS SUMMARY | 2025-08-15 16:15 | XMS_ITS | Encounter Summary ---
Author Organization [employer] Address 75 [facility] 7t [place] [address] Care Team Providers Care Rotor Plate Washer Name Role Phone Leta Soto MD Primary Care Pro vider Yajaira Antonio Unavailable Encounter Details Date Type Department Care Team (Late st Contact Info) Description 12/17/2023 Orders Only [facility] [address] [place] [address] Tatyana Mosquera FNP [address] [place] [address] Social History Tobacco Use Types Packs/Day Years [...] 10:00 AM EST Clinical Support [facility] [address] [place] [address] 09/24/2025 10:15 AM EST Office Visit [facility] [address] [place] [address] Leta Soto MD [address] [place] [address] documented as of this encounter Goals Goal [...] documented as of this encounter Care Teams Rotor Plate Washer Relationship Specialty Start Date End Date Leta Soto MD [address] [place] [address] PCP - General Internal Medicine 04/11/23 Yajaira Antonio [address] [place] [address] Drive 3rd [place] [address] Gastroenterology 09/04/24 [facility] 01/28/25 documented as of this encounter
--- OUTSIDE RECORDS SUMMARY | 2025-08-15 16:15 | XMS_ITS ---
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 Needs support managing specialist appointments. Please outreach for enrollment. Case Team Name Relationship Phone Chata Puente(Responsible Staff) [phone] Continued Care and Services Coordination
--- OUTSIDE RECORDS SUMMARY | 2025-08-15 16:15 | XMS_ITS | Encounter Summary ---
Author Organization [employer] Address 75 [facility] 7t [place] [address] Care Team Providers Care Clinical Research Technician Name Role Phone Leta Soto MD Primary Care Pro vider Yajaira Antonio Unavailable Encounter Details Date Type Department Care Team (Late st Contact Info) Description 04/21/[address] [facility] [address] [place] [address] Imelda Pfeiffer, CHANDU [address] [place] [address] Healthcare maintenance Social History Tobacco Use Types [...] 08/21/2025 10:00 AM EST Clinical Support [facility] [address] [place] [address] 09/24/2025 10:15 AM EST Office Visit [address] [address] Leta Soto MD [address] [place] [address] Scheduled Orders Name Type Priority Associated Diagnoses [...] LABS Comment:For additional infor mation, please refer tohttp://education.Artisoft/faq/KIU71a4(This link is being provided for informational/educational purposes only.)THIS TEST WAS PERFORMED AT:[facility] [place] [id number] STRICKLAND MD 04/21/2025 10:4 3 AM EDT 04/22/2025 8:54 AM EDT us Leta Dick MD LAB BLOOD ORDERAB LES Final Result Performing Organization Address City/[facility]/ZIP Co de Phone Number [facility] [address] [place] [phone] * HIV-1 RNA, Quantitative, Real-Time PCR [...] to 7.00 log copies/mL).THIS TEST WAS PERFORMED AT:[employer] [address] [id number] STRICKLAND MD 04/21/2025 10:4 3 AM EDT 04/21/2025 1:18 PM EDT us Leta Dick MD LAB BLOOD ORDERAB LES Final Result Performing Organization Address [facility] Co de Phone Number [facility] [address] [place] [phone] * RPR (Monitor) with Reflex to??Titer (04/21/2025 10:43 AM EDT) RPR (Monitor) w/Refl Titer NON-REACTI VE NON-REACT [place] [facility] Comment:THIS TEST WAS PERFOR MED AT:[id number] [place] [id number] STRICKLAND MD Rapid Plasma Reagin Ab Titer TNP [facility] 04/21/2025 10:4 3 AM EDT 04/21/2025 1:18 PM EDT us Leta Dick MD LAB BLOOD ORDERAB LES Final Result Performing Organization Address [facility]/ZIP Co de Phone Number [facility] [address] [place] [phone] [phone] * (ABNORMAL) Hepatitis C Antibody with Reflex to HCV, RNA, Quantitative, Real- Time PCR (04/21/2025 10:43 AM EDT) Hepatitis C Antibody Reactive( A) Nonreactive [facility] Comment:Presumptive evidence of antibodies to HCV. 04/21/2025 10:4 3 AM EDT 04/21/2025 1:18 PM EDT us Leta Dick MD LAB BLOOD ORDERAB LES Final Result Performing Organization Address [facility] Co de Phone Number [facility] [address] [place] [address] [phone] * Syphilis Screen (04/21/2025 10:43 AM EDT) Syphilis Screen Nonreactive Nonreactive [facility] 04/21/2025 10:4 3 AM EDT 04/21/2025 1:18 PM EDT us Leta Dick MD LAB BLOOD ORDERAB LES Final Result Performing Organization Address [facility] Co de Phone Number [facility] [address] [place] [phone] documented in this encounter Visit Diagnoses Diagnosis Healthcare maintenance documented in this encounter Additional Health Concerns Assessment Noted Time PHQ-9 Depression Total Score: 0 03/12/20 25 10:25 AM EDT documented as of this encounter Care Teams Clinical Research Technician Relationship Specialty Start Date End Date Leta Soto MD [address] [place] [address] PCP - General Internal Medicine 04/11/23 Yajaira Antonio [address]rd [place] [address] Gastroenterology 09/04/24 [facility] 01/28/25 documented as of this encounter
[2025-08-15 16:19] LABS: Hemoglobin 9.0 g/dl (14.0-18.0); Lymphocytes Absolute Auto 0.5 X10*3/uL (1.2-4.9); MANUAL DIFF FLAG NO; Mean Corpuscular Volume 80.8 fL (80.0-98.0); NRBC Abs Auto 0.000 X10*3/uL (0.0-0.012); NRBC Pct Auto 0.0 /100WBC (0.0-0.2); SCAN SMEAR FLAG 1
[2025-08-15 16:20] LABS: Hematocrit 29.5 % (42.0-52.0); Imm Gran Abs Auto 0.01 X10*3/uL (0.00-0.03); Imm Gran Pct Auto 0.5 % (0.0-0.4); Mean Corpuscular HGB Conc 30.5 g/dl (31.0-36.0); Mean Corpuscular Hemoglobin 24.7 pg (27.0-33.0); Red Blood Count 3.65 X10*6/uL (4.60-5.80)
[2025-08-15 16:23] LABS: White Blood Count 2.0 X10*3/uL (4.8-10.8)
[2025-08-15 16:26] LABS: Ammonia 51 umol/L (13-55); PLT ABN DIST 1; Platelet Count 18 X10*3/uL (160-400)
[2025-08-15 16:33] LABS: Alanine Aminotransferase 28 U/L (0-40); Albumin Level 3.3 g/dL (3.5-5.0); Alkaline Phosphatase 129 U/L (39-117); Anion Gap 9 (12-20); Aspartate Amino Transferase 39 U/L (5-37); Blood Urea Nitrogen 12 mg/dL (9-16); Calcium 8.6 mg/dL (8.4-10.2); Carbon Dioxide 21 mmol/L (22-29); Chloride 117 mmol/L (96-108); Creatinine Clr Calc Pharmacy 102.7; Estimated Glomerular Filt Rate > 60; Potassium 4.4 mmol/L (3.3-5.1); Sodium 143 mmol/L (135-145); Total Protein 6.6 g/dL (6.5-8.0)
[2025-08-15 16:38] LABS: Troponin-I High Sensitivity 17.1 ng/L (<3.5-35.0)
[2025-08-15 17:48] LABS: Appearance Urine Clear; Glucose Urine UA Negative (Negative); PH 5.5 (5.0-9.0); Specific Gravity - Urine 1.020 (1.005-1.025)
[2025-08-15 17:58] LABS: Cannabinoid Screen Urine Not Detected (Not Detect)
[2025-08-15 18:26] VITALS: BP 148/54; PULSE 74; RESP 18; TEMP 36.6; O2SAT 98
[2025-08-15 20:11] VITALS: BP 148/54; PULSE 74; RESP 18; TEMP 36.6; O2SAT 98
== END 2025-08-15 20:29 | disposition home or self-care (01) ==
PROVIDERS: Registered Nurse Emergency; Emergency Provider Emergency Medicine; PCP Student in an Organized Health Care Education/Training Program
DX: R42 Dizziness and giddiness (principal); R11.0 Nausea; R53.1 Weakness; I10 Essential (primary) hypertension; F17.200 Nicotine dependence, unspecified, uncomplicated; Z71.6 Tobacco abuse counseling
CPT/HCPCS: 36415; 80053; 80307; 81003; 82140; 84484; 85025; 93005; 99283; 99284

== ENCOUNTER → 2025-08-15 15:22 | Outpatient (BNV) | payer MEDICAID, SELFPAY | PROVIDERS: Emergency Provider Emergency Medicine; PCP Student in an Organized Health Care Education/Training Program; Visit Provider Internal Medicine | DX: R42 Dizziness and giddiness (principal) | CPT/HCPCS: 93010 ==

== ENCOUNTER 2025-08-19 11:31 | Day surgery (SDC) | payer MEDICAID, SELFPAY ==
--- OUTSIDE RECORDS SUMMARY | 2025-07-30 19:30 | XMS_ITS | Encounter Summary ---
Author Organization [employer] Address [address] [facility] 7t [place] [address] Care Team Providers Care Gear Generator Set Up Operator Name Role Phone Leta Soto MD Primary Care Pro vider Yajaira Antonio Unavailable Encounter Details Date Type Department Care Team (Late st Contact Info) Description 12/17/2023 Orders Only [facility]S [address] [place] [address] Tatyana Mosquera FNP [address] [place] [address] Social History Tobacco Use Types Packs/Day Years [...] Description 08/05/2025 10:15 AM EST Office Visit [address] [address] Leta Soto MD [address] [place] [address] 09/24/2025 10:15 AM EST Office Visit [address] [address] Leta Soto MD [address] [place] [address] documented as of this encounter Goals Goal [...] documented as of this encounter Care Teams Gear Generator Set Up Operator Relationship Specialty Start Date End Date Leta Soto MD [address] [place] [phone] PCP - General Internal Medicine 04/11/23 Yajaira Antonio [address] [place] [address] Drive 3rd [place] [address] Gastroenterology 09/04/24 [facility] 01/28/25 documented as of this encounter
--- OUTSIDE RECORDS SUMMARY | 2025-07-30 19:30 | XMS_ITS | Encounter Summary ---
Author Organization [employer] Address [address] [facility] 7t [place] [address] Care Team Providers Care Registered Dental Assistant Name Role Phone Leta Soto MD Primary Care Pro vider PacoYajaira Unavailable Reason for Visit * Reason Onset Date Comments Hospital Follow-up 07/16/2025 Encounter Details Date Type Department Care Team (Late st Contact Info) Description 07/16/2025 Telephone [facility] MEDICINE [address] [place] [address] Leta Soto MD [address] [place], [place] [phone] Hospital Follow-up Social History Tobacco Use Types [...] , upper GI bleed *Send message to [place] Clinical Care Coordinators documented in this encounter Plan of Treatment Upcoming Encounters Date Type Department Care Team (Late st Contact Info) Description 08/05/2025 10:15 AM EST Office Visit [facility] MEDICINE [address] [place] [address] Leta Soto MD [address] [place] [address] 09/24/2025 10:15 AM EST Office Visit [facility] MEDICINE [address] [place] [address] Leta Soto MD [address] [place] [address] documented as of this encounter Goals Goal [...] documented as of this encounter Care Teams Registered Dental Assistant Relationship Specialty Start Date End Date Leta Soto MD [address] [place] [address] PCP - General Internal Medicine 04/11/23 Yajaira Antonio [address] [place] [address] Drive 3rd [place] [address] Gastroenterology 09/04/24 [facility] 01/28/25 documented as of this encounter
--- OUTSIDE RECORDS SUMMARY | 2025-07-30 19:30 | XMS_ITS | Encounter Summary ---
Author Organization [employer] Address 75 [facility] 7t [place] [address] Care Team Providers Care Case Specialist Name Role Phone Leta Soto MD Primary Care Pro vider Yajaira Antonio Unavailable Encounter Details Date Type Department Care Team (Late st Contact Info) Description 11/11/2024 Telephone [facility]ICINE [address] [place] [address] Leta Soto MD [address] [place] [address] Social History Tobacco Use Types Packs/Day Years [...] PM EST Tc from amrita stiles director case requesting the status on pt documented in this encounter Plan of Treatment Upcoming Encounters Date Type Department Care Team (Late st Contact Info) Description 08/05/2025 10:15 AM EST Office Visit [address] [address] Leta Soto MD [address] [place] [address] 09/24/2025 10:15 AM EST Office Visit [facility] [address] [place] [address] [phone] Leta Soto MD [address] [place] [phone] documented as of this encounter Goals Goal [...] documented as of this encounter Care Teams Case Specialist Relationship Specialty Start Date End Date Leta Soto MD [address] [place] [phone] PCP - General Internal Medicine 04/11/23 Yajaira Antonio [address] [place] [address] 3rd [place] [address] Gastroenterology 09/04/24 [facility] 01/28/25 documented as of this encounter
--- OUTSIDE RECORDS SUMMARY | 2025-07-30 19:30 | XMS_ITS ---
Author Organization [employer] Address [address] [facility] 7t [place] [address] Care Team Providers Care Dental Ceramist Helper Name Role Phone Leta Soto MD Primary Care Pro vider Yajaira Antonio Unavailable CHW Complex Status:Outreach In Progress (Enrolling) Start date:11/27/2024 Enrollment reason:Referred by provider Overview PCP Referral- 63-year-old male with HCV cirrhosis and multiple hospitalizations for hepatic encephalopathy with ongoing homelessness, poor health literacy. Needs support managing specialist appointments. Please outreach for enrollment. Case Team Name Relationship Phone Chata Puente(Responsible Staff) [phone] Continued Care and Services Coordination
--- OUTSIDE RECORDS SUMMARY | 2025-07-30 19:30 | XMS_ITS | Encounter Summary ---
Author Organization [employer] Address 75 [facility] 7t [place] [address] Care Team Providers Care Marble Rubber Name Role Phone Leta Soto MD Primary Care Pro vider Yajaira Antonio Unavailable Encounter Details Date Type Department Care Team (Late st Contact Info) Description 04/21/2025 Orders Only [facility] MEDICINE [address] [place] [address] Imelda Pfeiffer, CHANDU [address] [place] [address] Healthcare maintenance Social History Tobacco Use Types [...] Description 08/05/2025 10:15 AM EST Office Visit [address] [address] Leta Soto MD [address] [place] [address] 09/24/2025 10:15 AM EST Office Visit [address] [address] Leta Soto MD [address] [place] [address] Scheduled Orders Name Type Priority Associated Diagnoses [...] Load <15 NOT DETECTED NOT DETECTED IU/mL [facility] HCV Log PCR <1.18 NOT DETECTED NOT DETECTED Log IU/mL [facility] Comment:For additional infor tash, please refer tohttp://education.[employer]et[employer]/faq/DRZ50n4(This link is being provided for informational/educational purposes only.)THIS TEST WAS PERFORMED AT:[employer] [place] [id number] STRICKLAND MD 04/21/2025 10:4 3 AM EDT 04/22/2025 8:54 AM EDT us Leta Dick MD LAB BLOOD ORDERAB LES Final Result Performing Organization Address City/[facility]/ZIP Co de Phone Number [facility] [address] [place] [phone] * HIV-1 RNA, Quantitative, Real-Time PCR (04/21/2025 10:43 AM EDT) HIV RNA PCR Qn Copies NOT DETECTED NOT DETECTED copies/mL [facility] HIV RNA PCR Qn Log Copies NOT DETECTED NOT DETECTED [facility] Comment:Result Units: Log co pies/mLThis test was performed using Real-Time Polymerase ChainReaction.Reportable Range: 20 copies/mL to 10,000,000 copies/mL(1.30 log copies/mL to 7.00 log copies/mL).THIS TEST WAS PERFORMED AT:[employer] [place] [id number] STRICKLAND MD 04/21/2025 10:4 3 AM EDT 04/21/2025 1:18 PM EDT us Leta Dick MD LAB BLOOD ORDERAB LES Final Result Performing Organization Address [facility] Co de Phone Number [facility] [address] [place] [phone] * RPR (Monitor) with Reflex to??Titer (04/21/2025 10:43 AM EDT) RPR (Monitor) w/Refl Titer NON-REACTI VE NON-REACT [place] [facility] Comment:THIS TEST WAS PERFOR MED AT:[employer] [place] [id number] STRICKLAND MD Rapid Plasma Reagin Ab Titer TNP [facility] 04/21/2025 10:4 3 AM EDT 04/21/2025 1:18 PM EDT us Leta Dick MD LAB BLOOD ORDERAB LES Final Result Performing Organization Address [facility] de Phone Number [facility] [address] [place] [phone] * (ABNORMAL) Hepatitis C Antibody with Reflex to HCV, RNA, Quantitative, Real- Time PCR (04/21/2025 10:43 AM EDT) Hepatitis C Antibody Reactive( A) Nonreactive [facility] Comment:Presumptive evidence of antibodies to HCV. 04/21/2025 10:4 3 AM EDT 04/21/2025 1:18 PM EDT us Leta Dick MD LAB BLOOD ORDERAB LES Final Result Performing Organization Address [facility] Phone Number [facility] [address] [place] [phone] * Syphilis Screen (04/21/2025 10:43 AM EDT) Syphilis Screen Nonreactive Nonreactive [facility] 04/21/2025 10:4 3 AM EDT 04/21/2025 1:18 PM EDT us Leta Dick MD LAB BLOOD ORDERAB LES Final Result Performing Organization Address [facility] de Phone Number [facility] [address] [place] [phone] documented in this encounter Visit Diagnoses Diagnosis Healthcare maintenance documented in this encounter Additional Health Concerns Assessment Noted Time PHQ-9 Depression Total Score: 0 03/12/20 25 10:25 AM EDT documented as of this encounter Care Teams Marble Rubber Relationship Specialty Start Date End Date Leta Soto MD [address] [place] [phone] PCP - General Internal Medicine 04/11/23 Yajaira Antonio [address] 3rd [place] [address] Gastroenterology 09/04/24 [facility] 01/28/25 documented as of this encounter
--- OUTSIDE RECORDS SUMMARY | 2025-07-30 19:30 | XMS_ITS | Clinical Summary ---
Author Organization [facility] Address [address] [facility] [address] [place] [phone] Phone Care Team Providers Care Combination Window Installer Name Role Phone Leta Soto MD Primary [...] Care Team Description 06/10/2025 Telephone [facility] [address] [facility] 10th [place] [address] Michela Matt MD 10/2 cancelled 06/09/2025 Telephone [facility] [address] [place] [address] Michela Matt MD Procedure Instructions 05/28/2025 10:00 AM EDT Pre-Admission Testing [facility] [address] [place] [address] Michela Matt MD from Last 3 Months Social History Tobacco [...] Description 09/24/2025 9:00 AM EST Pre-Admission Testing [facility] [address] [place] [address] Michela Matt MD [address] [place] [phone] [email or web address] 10/08/2025 Procedure Pass [facility]IOP DEPT [address] [place] [address] 10/08/2025 9:00 AM EST [facility] [address] [place] [address] Michela Matt MD [address] [place] [phone] [email or web address] 10/08/2025 9:00 AM EST [facility]est[facility] [address] [place] [phone] Berlin Rosas MD [address] [place] [phone] [email or web address] Juliana Loredo NP [address] [place] [phone] [email or web address] 10/08/2025 9:00 AM EST - 10/08/2025 10:00 AM EST Surgery [facility] DEPT [address] [place] [address] Michela Matt MD [address] [place] [phone] [email or web address] 10/19/2025 2:30 PM EST Office Visit [facility] [address] [address] Michela Matt MD [address] [place] [phone] [email or web address] Scheduled Procedures Name Priority Associated Diagnoses Date/Ti sc LATERAL TARSAL STRIP Ectropion of right upper [...] topic Medical Devices Not on file [place] [address] [place] [address] [employer] C3 ACO C3 ACO C3 [employer]CO [facility] [place] [place] [address] [place] [address] C3 ACO Care Teams Combination Window Installer Relationship Specialty Start Date End Date Leta Soto MD [address] [place] [phone] PCP - General Internal Medicine 01/05/25 Additional Source Comments The information contained in this document represents components of the legal health record. It is not the complete legal health record.[facility]
--- OUTSIDE RECORDS SUMMARY | 2025-07-30 19:30 | XMS_ITS ---
Author Organization [employer] Address [address] [facility] 7t [place] [address] Care Team Providers Care Lens Marker Name Role Phone Leta Soto MD Primary [...] Phone Stanley Mckeon RN(Responsible Staff) Registered Nurse [phone] Continued Care and Services Coordination
--- OUTSIDE RECORDS SUMMARY | 2025-07-30 19:30 | XMS_ITS | Encounter Summary ---
Author Organization [employer] Address [address] [facility] 7t [place] [address] Care Team Providers Care Manager Alliance Name Role Phone Leta Soto MD Primary Care Pro vider PacoYajaira Unavailable Reason for Visit * Reason Onset Date Comments Medication Question 07/29/2025 Encounter Details Date Type Department Care Team (Late st Contact Info) Description 07/29/2025 Telephone [facility] MEDICINE [address] [place] [address] Leta Soto MD 230 [place] [address] Medication Question Social History Tobacco Use Types Packs/Day Years [...] Telephone Encounter - [place] Hameed RN - 07/30/2025 2:53 PM EST Called pt via BLS [phone]. Informed pt that it is important to only take the iron supplement as prescribed 3x weekly to prevent constipation. Educated him to take medications as prescribed in the medbox. Pt verbalized understanding. Pt states that his mouth ulcer has resolved after he took the liquid medication. Reminded pt of upcoming 08/05/25 appointment. Pt verbalized understanding. * Telephone Encounter - [place] Hameed RN - 07/29/2025 4:31 PM EST Received call from [place] at [facility] pharmacy. Pt is prescribed ferrous gluconate 3x weekly. He is a medbox patient, and this medication is placed in a box every Sunday, Sunday, Sunday. The pharmacy states that the pt has been cutting open those pre-filled bubbles and taking the iron supplement daily (12 days in a row as he received 12 pills/month). Pharmacy would like to inform Dr. Yan and ask ifshe recommends different regimen given pt's behavior. documented in this encounter Plan of Treatment Upcoming Encounters Date Type Department Care Team (Late st Contact Info) Description 08/05/2025 10:15 AM EST Office Visit [address] [phone] Leta Soto MD [address] [place] [address] [phone] 09/24/2025 10:15 AM EST Office Visit [address] [phone] Leta Soto MD [address] [place] [address] [phone] documented as of this encounter Goals Goal [...] as of this encounter Care Teams Manager Alliance Relationship Specialty Start Date End Date Leta Soto MD [address] [place] [address] PCP - General Internal Medicine 04/11/23 Yajaira Antonio [address] [place] [address] Drive 3rd [place] [address] Gastroenterology 09/04/24 [facility] 01/28/25 documented as of this encounter
--- OUTSIDE RECORDS SUMMARY | 2025-07-30 19:30 | XMS_ITS | Clinical Summary ---
Author Organization [facility] Address [address] 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 Patient may return to [facility] for medical needs until a [...] Encounters Date Type Department Care Team Description 07/29/2025 Telephone [facility] [address] [place] [phone] Leta Soto MD Medication Question 07/29/2025 Refill [facility] [address] [place] [address] [phone] Victoriano Beyer MD Oral ulcer 07/20/2025 Orders Only GENERIC EXTERNAL DATA DEPARTMENT Provider, Generic External Data 07/16/2025 Patient Outreach [facility] [address] [place] [address] [phone] Leta Soto MD Transition Of Care (Tcm) (HDF scheduled and SDOH screening completed on 03/12/25) 07/16/2025 Telephone [facility] [address] [place] [address] [phone] Leta Soto MD Hospital Follow-up 07/13/2025 Orders Only GENERIC EXTERNAL DATA DEPARTMENT Provider, Generic External Data 07/12/2025 Orders Only GENERIC EXTERNAL DATA DEPARTMENT Provider, Generic External Data 07/09/2025 Telephone [facility] [address] [place] [address] Leta Soto MD Letter for School/Work 07/02/2025 Orders Only GENERIC EXTERNAL DATA DEPARTMENT Provider, Generic External Data 07/01/2025 Orders Only GENERIC EXTERNAL DATA DEPARTMENT Provider, Generic External Data 07/01/[address] [address] Leta Soto MD 06/25/2025 Orders Only [facility] External Provider, [facility] 06/25/2025 Telephone [facility] [address] [place] [address] Leta Soto MD FYI 06/12/2025 Telephone [facility] [address] [place] [phone] Leta Soto MD gsssi 06/11/[address] [address] Yamel Khanna RN 06/09/2025 9:45 AM EDT Office Visit [facility] [address] [place] [address], [place] [address] Leta Soto MD Dizziness (Primary Dx); Essential hypertension; Other cirrhosis of liver (CMS/HCC); Hepatic encephalopathy (CMS/HCC); Healthcare maintenance 06/09/2025 Orders Only GENERIC EXTERNAL DATA DEPARTMENT Provider, Generic External Data 06/09/[address] [address] Leta Soto MD ER Follow-up 06/09/2025 Travel 06/08/2025 Telephone [facility] [address] [place] [address] Leta Soto MD chart prep 06/04/2025 Orders Only GENERIC EXTERNAL DATA DEPARTMENT Provider, Generic External Data 05/30/2025 10:40 AM EDT Office Visit [facility] [address] [place] [address] Victoriano Beyer MD Oral ulcer (Primary Dx) 05/30/2025 Travel 05/22/2025 Orders Only [facility] External Provider, [facility] 05/21/2025 Orders Only GENERIC EXTERNAL DATA [...] Description 08/05/2025 10:15 AM EST Office Visit [facility] [address] [place] [phone] Leta Soto MD [address] [place] [address] 09/24/2025 10:15 AM EST Office Visit [facility] [address] [place] [address] Leta Soto MD [address] [place] [address] Health Maintenance Due Date Last Done Comments CT Colonography 1960 Colonoscopy 1960 Colorectal Cancer Screening 1960 FIT DNA/Cologuard 1961 FIT 1960 FOBT 1960 Sigmoidoscopy 1960 Hepatitis A Vaccines (1 of 2 - Risk 2-dose series) 1980 RSV Patients and Patients Aged 60 years or older (1 - Risk 50-74 years 1-dose series) 12/03/2011 Zoster Vaccines (1 of 2) 12/03/2011 COVID-19 Vaccine (1 - 2024-2 6 season) 2025 Influenza Vaccine (#1) 2025 05/25/2023 [...] Procedure Name Priority Date/Time Associated Diagnosis Comments COMPREHENSIVE METABOLIC PANEL Routine 07/20/2025 11:56 AM EST CBC WITH AUTO DIFFERENTIAL Routine 07/20/2025 11:56 AM EST PROTHROMBIN TIME-INR Routine 07/13/2025 12:47 AM EST [...] PROTHROMBIN TIME-INR Routine 05/15/2025 11:23 AM EDT HIV 1 RNA, QUANTITATIVE REAL TIME PCR Routine 04/21/2025 10:43 AM EDT Healthcare maintenance LIPID PANEL, STANDARD Routine 04/06/2023 10:00 AM EDT Healthcare maintenance from Last 3 Months or Most Recently Relevant to Health Maintenance Results * (ABNORMAL) CBC auto differential (07/20/2025 11:56 AM EST) Only the most recent of6 resultswithin the time period is included. White Blood Count 1.6(L) 4.8 - 10.8 X10*3/uL [facility] Red Blood Count 3.10(L) 4.60 - 5.80 X10*6/uL [facility] Hemoglobin 7.6(L) 14.0 - 18.0 g/dl [facility] Hematocrit 25.2(L) 42.0 - 52.0 % [facility] Mean Corpuscular Volume 81.3 80.0 - 98.0 fL [facility] Mean Corpuscular Hemoglobin 24.5(L) 27.0 - 33.0 pg [facility] Mean Corpuscular HGB Conc 30.2(L) 31.0 - 36.0 g/dl [facility] Red Cell Distribution Width 16.3(H) 11.0 - 16.0 % [facility] Platelet Count 20(LL) 160 - 400 X10*3/uL [facility] Comment:Results of PLT parham d to and read back by Lauren 07/20/25 at 1418 by HUI. Neutrophils Percent Auto 56.5 45 - 73 % [facility] Imm Gran Pct Auto 0.6(H) 0.0 - 0.4 % [facility] Lymphocytes Percent Auto 28.8 20 - 40 % [facility] Monocytes Percent Auto 12.2(H) 2 - 11 % [facility] Eosinophils Percent Auto 1.3 0 - 4 % [facility] Basophils Percent Auto 0.6 0 - 2 % [facility] NRBC Pct Auto 0.0 0.0 - 0.2 /100WBC [facility] Neutrophils Absolute Auto 0.9(L) 2.0 - 8.3 x10*3/uL [facility] Imm Gran Abs Auto 0.01 0.00 - 0.03 X10*3/uL [facility] Lymphocytes Absolute Auto 0.5(L) 1.2 - 4.9 X10*3/uL [facility] Monocytes Absolute Auto 0.2 0.1 - 1.2 X10*3/uL [facility] Eosinophils Absolute Auto 0.0 0.0 - 0.4 X10*3/uL [facility] Basophils Absolute Auto 0.0 0.0 - 0.2 X10*3/uL [facility] NRBC Abs Auto 0.000 0.0 - 0.012 X10*3/uL [facility] 07/20/2025 11:5 6 AM EST 07/20/2025 1:22 PM EST us Generic External Data Provider LAB BLOOD ORDERAB LES Edited Result - Final Performing Organization Address City/[facility]/ZIP Co de Phone Number [facility] [address] [place] [address] [phone] * (ABNORMAL) Comprehensive Metabolic Panel (07/20/2025 11:56 AM EST) Only the most recent of4 resultswithin the time period is included. Sodium 145 135 - 145 mmol/L [facility] Potassium 4.5 3.3 - 5.1 mmol/L [facility] Chloride 115(H) 96 - 108 mmol/L [facility] Carbon Dioxide 25 22 - 29 mmol/L [facility] Anion Gap 10(L) 12 - 20 [facility] Urea Nitrogen (BUN) 16 9 - 16 mg/dL [facility] Creatinine, Serum 0.78 0.5 - 1.4 mg/dL [facility] Estimated Glomerular Filt Rate >60 [facility] Comment:Chronic Kidney Disea se: Estimated GFR < 60 mL/min/1.44o2Chippl Kidney Disease: Estimated GFR < 15 mL/min/1.73m2 Glucose 87 60 - 115 mg/dL [facility] Calcium 8.6 8.4 - 10.2 mg/dL [facility] Bilirubin, Total 0.8 0.0 - 1.0 mg/dL [facility] Aspartate Amino Transferase 49(H) 5 - 37 U/L [facility] Alanine Aminotransferase 34 0 - 40 U/L [facility] Total Protein 6.3(L) 6.5 - 8.0 g/dL [facility] Albumin Level 3.0(L) 3.5 - 5.0 g/dL [facility] Alkaline Phosphatase 140(H) 39 - 117 U/L [facility] 07/20/2025 11:5 6 AM EST 07/20/2025 3:54 PM EST us Generic External Data Provider LAB BLOOD ORDERAB LES Final Result Performing Organization Address City/[facility]/ZIP Co de Phone Number [facility] [address] [place] [address] [phone] * (ABNORMAL) Prothrombin Time-INR (07/13/2025 12:47 AM EST) Only the most recent of2 resultswithin the time period is included. Prothrombin Time 17.2(H) 10.9 - 12.4 SEC [facility] INTERNATIONAL NORM RATIO 1.5(H) 0.9 - 1.1 [facility] Comment:INTERNATIONAL NORMAL IZED RATIO (INR) [...] ORDERAB LES Final Result Performing Organization Address City/State/[facility] Co de Phone Number [facility] [address] [place] [phone] * CT Cervical Spine w/o Contrast (07/13/2025 12:12 AM EST) Anatomical Region Laterality Modality Spine, C-spine Computed Tomogra phy 07/13/2025 12:1 2 AM EST Narrative 07/13/2025 12:13 AM EST [address] [address] [address] Scan Report Signed Patient: Adelso Beebe MR#: [id number] : 1960 Acct:[id number] Age/Sex: 64 / M ADM Date: 07/12/25 Loc: HO.ED Attending Dr: Ordering Physician: Stefani Rocha DO Date of Service: 07/12/25 Procedure(s): CT cervical spine wo IV con Accession Number(s): [id number] cc: Stefani Rocha DO; Leta Soto MD Report Number: [id number]: Total DLP = 472.00 mGy-cm Reason for [...] MD in OV> 07/13/2512 DD/ TD/TT: 07/13/2511 Batting Machine Operator Insulation: Procedure Note Donotuseinterpreter, Image - 07/13/[address] [place] [address] [address] Scan Report Signed Patient: Yolanda Beebe#: [id number] : 1960cct:[id number] Age/Sex: 64 / MADM Date: 07/12/25 Loc: HO.ED Attending Dr: Ordering Physician: Stefani Rocha DO Date of Service: 07/12/25 Procedure(s): CT cervical spine wo IV con Accession Number(s): [id number] cc: Stefani Rocha DO; Leta Soto MD Report Number: [id number]: Total DLP = 472.00 mGy-cm Reason for [...] MD in OV> 07/13/2512 DD/ TD/TT: 07/13/2511 Batting Machine Operator Insulation: us [facility] External Provider IMG CT PROCEDURES Edited Result - Final * CT Chest w/o Contrast (07/13/2025 12:10 AM EST) Anatomical Region Laterality Modality Body, Chest Computed Tomogra phy 07/13/2025 12:1 0 AM EST Narrative 07/13/2025 12:11 AM EST [address] [address] [address] Scan Report Signed Patient: Adelso Beebe MR#: [id number] : 1960 Acct:[id number] Age/Sex: 64 / M ADM Date: 07/12/25 Loc: HO.ED Attending Dr: Ordering Physician: Stefani Rocha DO Date of Service: 07/12/25 Procedure(s): CT chest wo IV con Accession Number(s): [id number] cc: Stefani Rocha DO; Leta Soto MD Report Number: [id number]: Total DLP = 517.00 mGy-cm Reason for [...] MD in OV> 07/13/2510 DD/ TD/TT: 07/13/259 Batting Machine Operator Insulation: Procedure Note Donotuseinterpreter, Image - 07/13/[address] [address] [address] Scan Report Signed Patient: Adelso BeebeMR#: [id number] : 1960cct:[id number] Age/Sex: 64 / MADM Date: 07/12/25 Loc: HO.ED Attending Dr: Ordering Physician: Stefani Rocha DO Date of Service: 07/12/25 Procedure(s): CT chest wo IV con Accession Number(s): [id number] cc: Stefani Rocha DO; Leta Soto MD Report Number: [id number]: Total DLP = 517.00 mGy-cm Reason for [...] MD in OV> 07/13/2510 DD/ TD/TT: 07/13/259 Batting Machine Operator Insulation: [facility] External Provider IMG CT PROCEDURES Edited Result - Final * CT Abdomen Pelvis w/o Contrast (07/13/2025 12:09 AM EST) Anatomical Region Laterality Modality Body, Pelvis, Abdomen Computed T omography 07/13/2025 12:0 9 AM EST Narrative 07/13/2025 12:10 AM EST [place] [address] CT Scan Report Signed Patient: Adelso Beebe MR#: [id number] : 1960 Acct:[id number] Age/Sex: 64 / M ADM Date: 07/12/25 Loc: .ED Attending Dr: Ordering Physician: Stefani Rocha DO Date of Service: 07/12/25 Procedure(s): CT abdomen pelvis wo IV con Accession Number(s): [id number] cc: Stefani Rocha DO; Leta Soto MD Report Number: [id number]: Total DLP = 1405.00 mGy-cm Reason for [...] signed by Teddy Lott MD in OV> 07/13/259 DD/ TD/TT: 07/13/258 Batting Machine Operator Insulation: Procedure Note Donotuseinterpreter, Image - 07/13/[address] [place] [address] [address] Scan Report Signed Patient: Adelso BeebeMR#: [id number] : 1960cct:[id number] Age/Sex: 64 / MADM Date: 07/12/25 Loc: HO.ED Attending Dr: Ordering Physician: Stefani Rocha DO Date of Service: 07/12/25 Procedure(s): CT abdomen pelvis wo IV con Accession Number(s): [id number] cc: Stefani Rocha DO; Leta Soto MD Report Number: [id number]: Total DLP = 1405.00 mGy-cm Reason for [...] signed by Teddy Lott MD in OV> 07/13/250 DD/ TD/TT: 07/13/258 Batting Machine Operator Insulation: [facility] External Provider IMG CT PROCEDURES Edited Result - Final * CT Head w/o Contrast (07/13/2025 12:02 AM EST) Only the most recent of2 resultswithin the time period is included. Anatomical Region Laterality Modality Head, Neck Computed Tomogra phy 07/13/2025 12:0 2 AM EST Narrative 07/13/2025 12:05 AM EST [place] [address] CT Scan Report Signed Patient: Adelso Beebe MR#: [id number] : 1960 Acct:[id number] Age/Sex: 64 / M ADM Date: 07/12/25 Loc: HO.ED Attending Dr: Ordering Physician: Stefani Rocha DO Date of Service: 07/12/25 Procedure(s): CT head/brain wo IV con Accession Number(s): [id number] cc: Stefani Rocha DO; Leta Soto MD Report Number: [id number]: Total DLP = 699.00 mGy-cm Reason for [...] 07/13/25 0003 DD/ 0002 TD/TT: 07/13/25 0002 Batting Machine Operator Insulation: Procedure Note Donotkobyter, Image - 07/13/[address] [address] [address] Scan Report Signed Patient: Adelso BeebeMR#: [id number] : 1960cct:[id number] Age/Sex: 64 / MADM Date: 07/12/25 Loc: HO.ED Attending Dr: Ordering Physician: Stefani Rocha DO Date of Service: 07/12/25 Procedure(s): CT head/brain wo IV con Accession Number(s): [id number] cc: Stefani Rocha DO; Leta Soto MD Report Number: [id number]: Total DLP = 699.00 mGy-cm Reason for [...] 07/13/25 0003 DD/ 0002 TD/TT: 07/13/25 0002 Batting Machine Operator Insulation: [facility] External Provider IMG CT PROCEDURES Edited Result - Final * High Sensitivity Troponin I (07/12/2025 10:42 PM EST) Only the most recent of7 resultswithin the time period is included. TROPONIN I HIGH SENSITIVITY 18.9 <3.5 - 35.0 ng/L [facility] Comment:The Clifford high sens itivity Troponin-I results should beused in conjunction with other diagnostic information suchas ECG, clinical observations and information, and patientsymptoms to aid in the diagnosis of [place]. 07/12/2025 10:4 2 PM EST 07/12/2025 10:47 PM EST us Generic External Data Provider LAB BLOOD ORDERAB LES Final Result Performing Organization Address [facility] Co de Phone Number [facility] [address] [place] [phone] * NT-proBNP (07/12/2025 10:42 PM EST) NT-proBNP 115.0 <300 pg/mL [facility] Comment:Reference Range:Age Group (years) NT-proBNP (pg/ml) InterpretationAll <300 Negative: HF unlikelyFor patients presenting to the ED with clinical suspicion ofnew onset or worsening HF, see below:18 to <50 >299.9 to <450.0 Grayzone: [id number] to 75 >299.9 to <900.0 other causes of>75 >299.9 to <1800.0 NT-proBNP lbndjdilo11 to <50 >449.9 Positive: HF eeiqev99-14 >899.9>75 >1799.9Note: Elevated NT-proBNP levels should be interpreted inthe context of other clinical information. 07/12/2025 10:4 2 PM EST 07/12/2025 10:47 PM EST us Generic External Data Provider LAB BLOOD ORDERAB LES Final Result Performing Organization Address City/[facility]/ZIP Co de Phone Number [facility] [address] [place] [phone] * Red blood count (07/12/2025 10:42 PM EST) Red Blood Cells: [id number] ON RC TRANSFUSED 07/13/25 0012 [facility] 07/12/2025 10:4 2 PM EST 07/12/2025 10:47 PM EST us Generic External Data Provider LAB BLOOD ORDERAB LES Final Result Performing Organization Address [facility] de Phone Number [facility] [address] [place] [phone] * Type and screen (07/12/2025 10:42 PM EST) Only the most recent of2 resultswithin the time period is included. Blood Type ON [facility] Antibody Screen NEGATIVE [facility] 07/12/2025 10:4 2 PM EST 07/12/2025 10:47 PM EST Narrative [facility] - 07/13/2025 12:39 AM EST Results at Issue Units as of 07/13/25 0014 ...Test View Group: Most Recent HGB HCT Results LABORATORYDate Time Test Result Flag Normal Range07/12/252009 HGB 6.8 *L 14.0-18.0 g/dlback by Tha 07/12/25 at 2115 by HAILEY.07/12/252009 HCT 22.8 L 42.0-52.0 % Yes Generic External Data Provider LAB BLOOD BANK TE ST ORDERABLES Final Result Performing Organization Address [facility] Co de Phone Number [facility] [address] [place] [phone] * (ABNORMAL) Ammonia, Plasma (07/12/2025 10:42 PM EST) Only the most recent of3 resultswithin the time period is included. Ammonia (P) 78(H) 13 - 55 umol/L [facility] 07/12/2025 10:4 2 PM EST 07/12/2025 10:47 PM EST us Generic External Data Provider LAB BLOOD ORDERAB LES Final Result Performing Organization Address [facility] de Phone Number [facility] [address] [place] [phone] * Urinalysis w/reflex microscopic (07/12/2025 9:01 PM EST) Only the most recent of4 resultswithin the time period is included. Color Urine Yellow [facility] Appearance Urine Clear [facility] PH 6.0 5.0 - 9.0 [facility] Glucose Urine UA Negative Negative mg/dL [facility] Urine Blood Negative Negative [facility] Specific [place] - Urine 1.015 1.005 - 1.025 [facility] Urine Protein Negative Neg-Trace mg/dL [facility] Urine Ketones Negative Negative mg/dL [facility] Nitrite Urine Negative Negative [facility] Leukocyte Esterase Urine Negative Negative [facility] 07/12/2025 9:01 PM EST 07/12/2025 9:06 PM EST Narrative [facility] - 07/12/2025 9:19 PM EST Urine, Clean Catch Generic External Data Provider LAB URINE ORDERAB LES Final Result Performing Organization Address [facility] de Phone Number [facility] [address] [place] [phone] * CTA Head Stroke w/ and w/o Contrast (07/02/2025 12:34 AM EDT) Anatomical Region Laterality Modality Computed Tomogra phy 07/02/2025 12:3 4 AM EDT Narrative 07/02/2025 12:35 AM EDT [address] [address] [address] Scan Report Signed Patient: Adelso Beebe MR#: [id number] : 1960 Acct:[id number] Age/Sex: 64 / M ADM Date: 07/01/25 Loc: HO.ED Attending Dr: Ordering Physician: Bhavana Christensen Date of Service: 07/01/25 Procedure(s): CT angio head neck STROKE Accession Number(s): [id number] cc: Bhavana Christensen; [facility] Report Number: [id number]: Total DLP = 681.00 mGy-cm Reason for [...] Likewise in the shower solving in skin MAIL HANDLERS SUPERVISOR: Persistent origin of the right MAIL HANDLERS SUPERVISOR. Moderate focal narrowing in the distal right [...] Vasquez MD Signed By: <Electronically signed by Lcai Vasquez MD in OV> 07/02/2534 DD/ TD/TT: 07/02/2533 Batting Machine Operator Insulation: Procedure Note Donotuseinterpreter, Image - 07/02/[address] [address] [address] Scan Report Signed Patient: Adelso BeebeMR#: [id number] : 2Acct:[id number] Age/Sex: 64 / MADM Date: 07/01/25 Loc: HO.ED Attending Dr: Ordering Physician: Bhavana Christensen Date of Service: 07/01/25 Procedure(s): CT angio head neck STROKE Accession Number(s): [id number] cc: Bhavana Christensen; [facility] Report Number: [id number]: Total DLP = 681.00 mGy-cm Reason for [...] Likewise in the shower solving in skin MAIL HANDLERS SUPERVISOR: Persistent origin of the right MAIL HANDLERS SUPERVISOR. Moderate focal narrowing in the distal right [...] MD in OV> 07/02/2534 DD/ TD/TT: 07/02/2533 Batting Machine Operator Insulation: us [facility] External Provider IMG CT PROCEDURES Edited Result - Final * XR Chest 1 View (07/02/2025 12:22 AM EDT) Only the most recent of2 resultswithin the time period is included. Anatomical Region Laterality Modality Chest Radiographic Susy ging 07/02/2025 12:2 2 AM EDT Narrative 07/02/2025 12:24 AM EDT [address] [address] XRay Report Signed Patient: Adelso Beebe MR#: [id number] : 1960 Acct:[id number] Age/Sex: 64 / M ADM Date: 07/01/25 Loc: .ED Attending Dr: Ordering Physician: Bhavana Christensen Date of Service: 07/01/25 Procedure(s): XR chest 1V Accession Number(s): [id number] cc: Bhavana Christensen; [facility] Reason for Exam: cough/pain CLINICAL HISTORY: [...] MD in OV> 07/02/2522 DD/ TD/TT: 07/02/2521 Batting Machine Operator Insulation: Procedure Note Donotuseinterpreter, Image - 07/02/[address] [address] XRay Report Signed Patient: Adelso BeebeMR#: [id number] : 1960cct:[id number] Age/Sex: 64 / MADM Date: 07/01/25 Loc: HO.ED Attending Dr: Ordering Physician: Bhavana Christensen Date of Service: 07/01/25 Procedure(s): XR chest 1V Accession Number(s): [id number] cc: Bhavana Christensen; [facility] Reason for Exam: cough/pain CLINICAL HISTORY: [...] signed by Laci Vasquez MD in OV> 07/02/25 0023 DD/ TD/TT: 07/02/2521 Batting Machine Operator Insulation: [facility] External Provider IMG XR PROCEDURES Edited Result - Final * Drug Monitoring, Panel 1, Screen, Urine (07/02/2025 12:06 AM EDT) Only the most recent of2 resultswithin the time period is included. Opiate Screen Urine Not Detected Not Detect [facility] Comment:Opiate cut-off is 30 0 ng/mL.Positive results are unconfirmed and should not be used fornon-medical purposes. Barbiturates, Urine Not Detected Not Detect [facility] Comment:Barbiturate cut-off is 200 ng/mL.Positive results are unconfirmed and should not be used fornon-medical purposes. Phencyclidine Screen Urine Not Detected Not Detect [facility] Comment:Phencyclidine cut-of f is 25 ng/mL.Positive results are unconfirmed and should not be used fornon-medical purposes. Amphetamine Screen Urine Not Detected Not Detect [facility] Comment:Amphetamine cut-off is 1000 ng/mL.Positive results are unconfirmed and should not be used fornon-medical purposes. Benzodiazepines Screen Urine Not Detected Not Detect [facility] Comment:Benzodiazepine cut-o ff is 200 ng/mL.Positive results are unconfirmed and should not be used fornon-medical purposes. Cocaine Screen Urine Not Detected Not Detect [facility] Comment:Cocaine cut-off is 3 00 ng/mL.Positive results are unconfirmed and should not be used fornon-medical purposes. Cannabinoid Screen Urine Not Detected Not Detect [facility] Comment:Cannabinoid cut-off is 50 ng/mL.Positive results are unconfirmed and should not be used fornon-medical purposes. Methadone Screen, Urine Not Detected Not Detect ng/mL [facility] Comment:Methadone cut-off is 300 ng/mL.Positive results are unconfirmed and should not be used fornon-medical purposes. FENTANYL URINE Not Detected Not Detect [facility] Comment:Fentanyl cut-off is 1 ng/mL.Positive results are unconfirmed and should not be used fornon-medical purposes. Oxycodone Urine Screen Not Detected Not Detect ng/mL [facility] Comment:Oxycodone cut-off is 100 ng/mL.Positive results are unconfirmed and should not be used fornon-medical purposes. Buprenorphine Screen Not Detected Not Detect ng/mL [facility] Comment:Buprenorphine cut-of f is 5 ng/mL.Positive results are unconfirmed and should not be used fornon-medical purposes. 07/02/2025 12:0 6 AM EDT 07/02/2025 12:22 AM EDT us Generic External Data Provider LAB URINE ORDERAB LES Final Result [facility] [address] [place] [phone] * Slide Review (07/01/2025 11:13 PM EDT) Only the most recent of4 resultswithin the time period is included. Slide Review MANUAL DIFF [facility] 07/01/2025 11:1 3 PM EDT 07/01/2025 11:21 PM EDT us Generic External Data Provider LAB BLOOD ORDERAB LES Final Result [facility] [address], [place] [phone] * (ABNORMAL) Complete Blood Count Manual Diff (07/01/2025 11:13 PM EDT) White Blood Count 1.4(L) 4.8 - 10.8 X10*3/uL [facility] Red Blood Count 3.15(L) 4.60 - 5.80 X10*6/uL [facility] Hemoglobin 7.7(L) 14.0 - 18.0 g/dl [facility] Hematocrit 25.2(L) 42.0 - 52.0 % [facility] Mean Corpuscular Volume 80.0 80.0 - 98.0 fL [facility] Mean Corpuscular Hemoglobin 24.4(L) 27.0 - 33.0 pg [facility] Mean Corpuscular HGB Conc 30.6(L) 31.0 - 36.0 g/dl [facility] Red Cell Distribution Width 16.0 11.0 - 16.0 % [facility] Platelet Count 22(L) 160 - 400 X10*3/uL [facility] NRBC Pct Auto 0.0 0.0 - 0.2 /100WBC [facility] NRBC Abs Auto 0.000 0.0 - 0.012 X10*3/uL [facility] Neutrophils % Manual 70 45 - 73 % [facility] Band Neutrophils Percent 0(L) 3 - 5 % [facility] Lymphocytes Percent Manual 26 20 - 40 % [facility] Monocytes Percent Manual 4 2 - 11 % [facility] NEUTROPHILS ABSOLUTE MANUAL 1.0(L) 2.0 - 8.3 X10*3/uL [facility] LYMPHOCYTES ABSOLUTE MANUAL 0.4(L) 1.2 - 4.9 X10*3/uL [facility] MONOCYTES ABSOLUTE MANUAL 0.1 0.1 - 1.2 X10*3/uL [facility] Platelet Estimate NORMAL NORMAL [facility] Platelet Morphology Comment NORMAL [facility] RBC Morphology NOTED [facility] Tear Drop Cells 1+ (0-2) /OIF [facility] Ovalocytes 1+ (5-14) /F [facility] Chestnut Cells 1+ (0-2) /F [facility] Schistocytes 1+ (0-2) /F [facility] 07/01/2025 11:1 3 PM EDT 07/01/2025 11:21 PM EDT Generic External Data Provider LAB BLOOD ORDERAB LES Final Result Performing Organization Address [facility] Co de Phone Number [facility] [address] [place] [phone] * Ethanol (07/01/2025 11:13 PM EDT) Only the most recent of2 resultswithin the time period is included. ETHANOL (MG/DL) IN SER/PLAS <10 mg/dL [facility] Comment:Serum/plasma ethanol results are to be used formedical/treatment purposes only. 07/01/2025 11:1 3 PM EDT 07/01/2025 11:21 PM EDT us Generic External Data Provider LAB BLOOD ORDERAB LES Final Result Performing Organization Address [facility] Co de Phone Number [facility] [address] [place] [address] [phone] * SARS-CoV-2 RNA, Influenza A/B, and RSV RNA, Ql NAAT (07/01/2025 11:13 PM EDT) Only the most recent of2 resultswithin the time period is included. Influenza A PCR NEGATIVE Negative [facility] Influenza B PCR NEGATIVE Negative [facility] Resp Syncy Virus RNA Qual PCR NEGATIVE Negative [facility] SARS COV2 PCR NEGATIVE Negative [facility] Comment:All test results mus t [...] use by authorized laboratories.Testing performed on the Navidog GeneXpert utilizingreal-time RT-PCR.All SARS CoV2 and positive influenza A/B results arereported to [facility]. 07/01/2025 11:1 3 PM EDT 07/01/2025 11:21 PM EDT Generic External Data Provider LAB MICROBIOLOGY - GENERAL ORDERABLES Final Result Performing Organization Address [facility] de Phone Number [facility] [address] [place] [phone] * Magnesium (07/01/2025 11:13 PM EDT) Magnesium 2.0 1.6 - 2.6 mg/dL [facility] 07/01/2025 11:1 3 PM EDT 07/01/2025 11:21 PM EDT Generic External Data Provider LAB BLOOD ORDERAB LES Final Result Performing Organization Address [facility] de Phone Number [facility] [address] [place] [phone] * XR Humerus Left (06/25/2025 11:38 AM EDT) Anatomical Region Laterality Modality Upper Extremities, Humerus Left [facility] graphic Imaging 06/25/2025 11:3 8 AM EDT Narrative 06/25/2025 11:48 AM EDT [address] [address] XRay Report Signed Patient: Adelso Beebe MR#: [id number] : 1960 Acct:[id number] Age/Sex: 64 / M ADM Date: 06/25/25 Loc: HO.ED Attending Dr: Ordering Physician: Cash Reno MD Date of Service: 06/25/25 Procedure(s): XR humerus LT Accession Number(s): [id number] cc: Cash Reno MD; Leta Soto MD [...] 06/25/25 1145 DD/ 1138 TD/TT: 06/25/25 1138 Batting Machine Operator Insulation: Procedure Note Donotuseinterpreter, Image - 06/25/2025 [place] [address] XRay Report Signed Patient: Adelso BeebeMR#: [id number] : 1960cct:[id number] Age/Sex: 64 / MADM Date: 06/25/25 Loc: HO.ED Attending Dr: Ordering Physician: Cash Reno MD Date of Service: 06/25/25 Procedure(s): XR humerus LT Accession Number(s): [id number] cc: Cash Reno MD; Leta Soto MD [...] 06/25/25 1145 DD/ 1138 TD/TT: 06/25/25 1138 Batting Machine Operator Insulation: [facility] External Provider IMG XR PROCEDURES Edited Result - Final * POCT Glucose (06/09/2025 11:04 AM EDT) Glucose Blood, POC 107 60 - 200 mg/dL QC Media Lot # [id number] Lot# Expiration Date [id number] Blood Capillary blood specimen / Unknown 06/09/2025 11:04 AM EDT Leta Dick MD POINT OF CARE ANCELMO T ENTER/EDIT ORDERABLES Final Result * Lipase (06/04/2025 2:25 PM EDT) Lipase 20 8 - 78 U/L [facility] 06/04/2025 2:25 PM EDT 06/04/2025 2:29 PM EDT Generic External Data Provider LAB BLOOD ORDERAB LES Final Result [facility] [address] [place] [phone] * Hepatic Function Panel (06/04/2025 2:25 PM EDT) Bilirubin, Direct 0.5 0.0 - 0.5 mg/dL [facility] 06/04/2025 2:25 PM EDT 06/04/2025 2:29 PM EDT us Generic External Data Provider LAB BLOOD ORDERAB LES Final Result [facility] [address] [place] [phone] * Hematoxylin and Eosin Stain (05/21/2025 2:15 PM EDT) 05/21/2025 2:15 PM EDT 05/21/2025 2:50 PM EDT Narrative [facility] - 05/25/2025 5:25 PM EDT ----- ------- Name: Adelso Beebe Age/Sex: 64/M : 1960 Unit#: [id number] Attend Dr: Yajaira Antonio MD Re05/21/25 Status: [facility] Location: [facility] Disch: ----- ------- SPEC : [id number] RECD: 05/21/25258 STATUS: OUMOU FONSECA NUM: [id number] CASSI: 05/21/25-[address] [facility] [address]: Yajaira Antonio MD ENTERED: 05/21/25-9649 SP TYPE: Surgical OTHR DR: Leta Soto [...] microscopic examination, 6 pieces in cassette A. ([facility]) Special studies ordered and performed: Immunostain for H. pylori; AB/PAS stains IHC S/NG Disclaimer NOTE: Unless otherwise stated, all tissue is formalin-fixed and paraffin-embedded. Some or all of the immunohistochemical tests reported herein may have been developed and their performance characteristics determined by [facility]. They have not been cleared or approved by the U.S. Food and Drug Administration (FDA). However, the FDA has determined that such clearance or approval is not necessary. This laboratory is certified under the Clinical Laboratory Improvement Amendments of 1988 (CLIA) as qualified to perform high complexity clinical laboratory testing. Copies To: Leta Soto MD [address] [place] [phone] CONTINUED ON NEXT PAGE ----- ------- Name: Adelso Beebe Age/Sex: 64/M : 1960 Unit#: [id number] Attend Dr: Yajaira Antonio MD Re05/21/25 Status: [facility] Location: [facility] Disch: ----- ------- SPEC : [id number] RECD: 05/21/25 STATUS: OUMOU FONSECA NUM: [id number] CASSI: 05/21/[address] [facility] [address]: Yajaira Antonio MD ENTERED: 05/21/25 SP TYPE: Surgical OTHR DR: Leta Soto MD ORDERED: HE Stain/3, Gross Micro L4, IHC, Special st. 2, H. pylori, AB/PAS Copies To: (Continued) Yajaira Antonio MD [facility] [address] [place] [phone] [email or web address] ----- ------- Signed (signature on file) Raul Blunt MD 05/25/25 6537 ----- ------- END OF REPORT us Generic External Data Provider LAB BLOOD ORDERAB LES Final Result [facility] [address] [place] [phone] [phone] * Pheresis Platelets (05/20/2025 10:46 AM EDT) Pheresis Platelets [id number] AP PHPLT TRANSFUSED 05/21/25 1333 [id number] AP PHPLT TRANSFUSED 05/21/25 1223 [facility] 05/20/2025 10:4 6 AM EDT 05/20/2025 11:19 AM EDT us Generic External Data Provider LAB BLOOD BANK TE ST ORDERABLES Final Result [facility] [address] [place] [phone] * Urinalysis, Complete, with Reflex to Culture (05/15/2025 2:19 PM EDT) Color Urine Yellow [facility] Appearance Urine Clear [facility] PH 8.0 5.0 - 9.0 [facility] Glucose Urine UA Negative Negative mg/dL [facility] Urine Blood Negative Negative [facility] Specific [place] - Urine 1.010 1.005 - 1.025 [facility] Urine Protein Negative Neg-Trace mg/dL [facility] Urine Ketones Negative Negative mg/dL [facility] Nitrite Urine Negative Negative [facility] Leukocyte Esterase Urine Negative Negative [facility] RBC Urine 0-2 0 - 2 /HPF [facility] Urine WBC 0-5 0 - 5 /HPF [facility] Urine Squamous Epithelial Cell 0-2 0 - 2 /HPF [facility] Urine Bacteria None Seen None Seen [facility] Hyaline Casts, Urine 0-2 0 - 2 /LPF [facility] 05/15/2025 2:19 PM EDT 05/15/2025 2:33 PM EDT Narrative [facility] - 05/15/2025 2:44 PM EDT Urine, Clean Catch us Generic External Data Provider LAB URINE ORDERAB LES Final Result Performing Organization Address [facility]/ZIP Co de Phone Number [facility] [address] [place] [phone] * (ABNORMAL) B Type Natriuretic Peptide (BNP) (05/15/2025 2:19 PM EDT) Pathologist [facility] B Type Natriuretic Peptide 178(H) <100 pg/mL [facility] 05/15/2025 2:19 PM EDT 05/15/2025 2:33 PM EDT us Generic External Data Provider LAB BLOOD ORDERAB LES Final Result Performing Organization Address [facility] Co de Phone Number [facility] [address] [place] [phone] * HIV-1 RNA, Quantitative, Real-Time PCR (04/21/2025 10:43 AM EDT) [facility] HIV RNA PCR Qn Copies NOT DETECTED NOT DETECTED copies/mL [facility] HIV RNA PCR Qn Log Copies NOT DETECTED NOT DETECTED [facility] Comment:Result Units: Log co pies/mLThis test was performed using Real-Time Polymerase ChainReaction.Reportable Range: 20 copies/mL to 10,000,000 copies/mL(1.30 log copies/mL to 7.00 log copies/mL).THIS TEST WAS PERFORMED AT:[employer] [place] [phone] STRICKLAND MD 04/21/2025 10:4 3 AM EDT 04/21/2025 1:18 PM EDT us Leta Dick MD LAB BLOOD ORDERAB LES Final Result Performing Organization Address [facility] Co de Phone Number [facility] [address] [place] [phone] * Lipid Panel, Standard (04/06/2023 10:00 AM EDT) Triglycerides 94 mg/dL [facility] Comment:Desirable Triglyceri de: less than 150 mg/dLBorderline High Triglyceride 150-199 mg/dLHigh Triglyceride: 200-499 mg/dLVery High Triglyceride: greater than or equal to 5OO mg/dL Cholesterol 79 mg/dL [facility] Comment:Desirable Cholestero l: less than 200 mg/dLBorderline High Cholesterol: 200-239 mg/dLHigh Cholesterol: greater than 239 mg/dL LDL Cholesterol Calculated 36 mg/dl [facility] Comment:Desirable LDL: less than 100 [...] EDT 04/06/2023 11:20 AM EDT [facility] LAB BLOOD ORDERABLES Final Resul t [facility] [address] [place] [phone] from Last 3 Months or Most Recently Relevant to Health Maintenance [place] [address] [address] C3 Care Teams Plastic Machine Operator Relationship Specialty Start Date End Date Leta Soto MD [address] [place] [address] [phone] PCP - General Internal Medicine 04/11/[address] [place] [address] Gastroenterology 09/04/24 [facility] 01/28/25
--- OUTSIDE RECORDS SUMMARY | 2025-07-30 19:30 | XMS_ITS | Encounter Summary ---
Author Organization [employer] Address [address] [place] [address] Care Team Providers Care Sane Rn Name Role Phone Leta Soto MD Primary Care Pro vider Yajaira Antonio Unavailable Reason for Visit * Reason Comments Med Refill Encounter Details Date Type Department Care Team (Late st Contact Info) Description 07/29/2025 Refill [facility] [address] [place] [phone] Victoriano Beyer MD [address] [place] [address] Oral ulcer Social History Tobacco Use Types Packs/Day Years [...] Encounter - [place] Hameed RN - 07/30/2025 2:57 PM EST Called pt via BLS [phone]. Pt states that his mouth ulcer has resolved after he took the liquid medication. Reminded pt of upcoming 08/05/25 appointment. Pt verbalized understanding. documented in this encounter Plan of Treatment Upcoming Encounters Date Type Department Care Team (Late st Contact Info) Description 08/05/2025 10:15 AM EST Office Visit [facility] [address] [place] [phone] Leta Soto MD [address] [place] [phone] 09/24/2025 10:15 AM EST Office Visit [facility] [address] [place] [phone] Leta Soto MD [address] [place] [address] documented as of this encounter Goals Goal Patient Goal Type Associated Problems Recent Progress Patient-Stated? Author Blood Pressure < 140/90 Blood Pressure 150/50(2024 10:23 AM EDT) Loan [place] Record your blood pressure once per day Blood Pressure No Loan [place] documented as of this encounter Visit Diagnoses Diagnosis Oral ulcer Other and unspecified diseases of the oral soft tissues documented in this encounter Additional Health Concerns Assessment Noted Time PHQ-9 Depression Total Score: 0 03/12/20 10:25 AM EDT documented as of this encounter Care Teams Sane Rn Relationship Specialty Start Date End Date Leta Soto MD [address] [place] [address] PCP - General Internal Medicine 04/11/23 Yajaira Antonio [address] [place] [address] Drive 3rd [place] [address] Gastroenterology 09/04/24 [facility] 01/28/25 documented as of this encounter
[2025-08-19] VITALS (38 sets, daily range): BP systolic 123–160; BP diastolic 43–68; PULSE 69–96; RESP 14–22; TEMP 36.6–37.4; O2SAT 99–100; BMI 30.6
--- NOTE | ~2025-08-19 | IR_ITS ---
Procedure: TIPS revision HISTORY/INDICATION: Cirrhosis with portal hypertension status post TIPS placement on 10/2024. Patient now presenting with multiple episodes of hepatic encephalopathy felt to be medically optimized. No significant varices seen on recent upper endoscopy. TIPS reduction requested by gastroenterology. SEDATION: The procedure was done under moderate sedation with a dedicated nurse for monitoring of vital signs utilizing fentanyl and Versed with a total sedation time of 218 minutes. RADIATION DOSE: PROCEDURE/TECHNIQUE: Patient was placed supine in the angiography table. The right neck was sterilely prepped and draped. Preliminary ultrasound demonstrates widely patent right internal jugular vein. The right internal jugular vein was accessed with a 21-gauge micropuncture needle under direct ultrasound guidance with permanent recordings and direct visualization of the needle entering into the vein. The needle was exchanged for a transitional dilator over a 0.018 guidewire. A 0.035 guidewire was advanced to the IVC. A 10 Cuban sheath was placed. A hockey-stick catheter was used to catheterize the indwelling right hepatic vein to right portal vein TIPS stent. Position was confirmed with portal venography which is somewhat limited due to respiratory motion and patient inability to participate with breath holds. There is flow through the TIPS stent with no obvious flow limitation. Unfortunately, due to technical malfunction of equipment, pressures were unable to be obtained during the procedure. However, given patient presentation of recurrent hepatic encephalopathy, brisk flow through the indwelling stent and recent endoscopy is not demonstrating any significant varices, we elected to proceed with TIPS reduction. The 10 Cuban sheath was exchanged to a 14 Cuban sheath which was advanced into the portal vein. An exchange length 0.035 stiff Glidewire and an exchange length 0.035 stiff Amplatz were advanced in tandem to one another through the sheath into the portal vein and down the SMV. A 7 mm x 19 mm Omnilink elite balloon-expandable stent was positioned at the midportion of the TIPS stent over the Glidewire. A 10 mm x 5 cm Arden Viabahn self-expanding stent was positioned immediately adjacent to the balloon expandable stent. The balloon expandable stent was deployed and then the self-expanding stent was deployed adjacent so as to have the balloon expandable stent at the midportion of the self-expanding stent preventing it from fully expanding in order to decrease its effective intraluminal diameter. The balloon catheter from the stent and Glidewire were removed. The Viabahn delivery catheter was exchanged for a 6 mm x 80 mm BICYCLE MESSENGER balloon which was used to perform angioplasty of the entire TIPS stent. Portal venogram is limited due to patient's inability to participate in breath hold but grossly demonstrates satisfactory positioning of the newly placed stents with brisk flow. We considered performing angioplasty at the distal ends of the Viabahn to 10 mm. However, at this point the patient became extremely agitated and demanded to be taken off the table and required multiple people to hold him in place temporarily so we could safely remove the access. Though we were ending the procedure for safety reasons, we also felt it would be reasonable to end the procedure without further intervention given the appearance on the portal venogram. Again, due to technical malfunction we were unable to perform a portosystemic gradient. The catheter and sheath were removed and hemostasis was achieved with a single 3-0 tourniquet suture and a sterile dressing was applied Patient was transferred to PACU in stable condition. IR/IR TIPS revision IMPRESSION: Successful placement of TIPS stent as detailed above. PLAN: Follow-up with gastroenterology for interval endoscopy to ensure no enlarging varices. Follow-up with interventional radiology for routine TIPS stent surveillance Electronically signed by: Abraham Ness MD 08/19/2025 04:53 PM [facility]
[2025-08-19 12:21] LABS: Hematocrit 31.7 % (42.0-52.0); Hemoglobin 9.7 g/dl (14.0-18.0); Imm Gran Abs Auto 0.01 X10*3/uL (0.00-0.03); Imm Gran Pct Auto 0.4 % (0.0-0.4); Lymphocytes Absolute Auto 0.8 X10*3/uL (1.2-4.9); MANUAL DIFF FLAG SCAN; Mean Corpuscular HGB Conc 30.6 g/dl (31.0-36.0); Mean Corpuscular Hemoglobin 24.4 pg (27.0-33.0); Mean Corpuscular Volume 79.8 fL (80.0-98.0); NRBC Abs Auto 0.000 X10*3/uL (0.0-0.012); NRBC Pct Auto 0.0 /100WBC (0.0-0.2); Red Blood Count 3.97 X10*6/uL (4.60-5.80); SCAN SMEAR FLAG 1
[2025-08-19 12:22] LABS: Platelet Count 24 X10*3/uL (160-400); White Blood Count 2.5 X10*3/uL (4.8-10.8)
[2025-08-19 12:27] LABS: INTERNATIONAL NORM RATIO 1.3 (0.9-1.1); Prothrombin Time 15.4 SEC (11.2-13.5)
[2025-08-19 12:34] LABS: Anion Gap 9 (12-20); Blood Urea Nitrogen 12 mg/dL (9-16); Calcium 8.6 mg/dL (8.4-10.2); Carbon Dioxide 26 mmol/L (22-29); Chloride 113 mmol/L (96-108); Creatinine Clr Calc Pharmacy 119.1; Estimated Glomerular Filt Rate > 60; Potassium 4.4 mmol/L (3.3-5.1); Sodium 144 mmol/L (135-145)
[2025-08-19] MEDS: Heparin Sodium,Porcine 10,000 UNIT/10 ML VIAL 3000 UNIT IVPUSH (15:20)
== END 2025-08-19 17:54 | disposition home or self-care (01) ==
LOC: HO.SSS 11:32
PROVIDERS: Radiology Diagnostic Radiology; PCP Student in an Organized Health Care Education/Training Program; Visit Provider Student in an Organized Health Care Education/Training Program
DX: K70.30 Alcoholic cirrhosis of liver without ascites (principal); K76.6 Portal hypertension; K76.82 Hepatic encephalopathy
CPT/HCPCS: 36415; 37183; 80048; 85025; 85610; 99152; 99153; C1725; C1769; C1874; C1876; C1894; J1644; J2250; J3010; Q9967

== ENCOUNTER → 2025-08-19 13:10 | Outpatient (BNV) | payer MEDICAID, SELFPAY | PROVIDERS: PCP Student in an Organized Health Care Education/Training Program; Visit Provider Student in an Organized Health Care Education/Training Program | DX: K76.6 Portal hypertension (principal); K74.60 Unspecified cirrhosis of liver; K76.82 Hepatic encephalopathy; Z96.89 Presence of other specified functional implants | CPT/HCPCS: 37183 ==